=== PATIENT | female | born 1965 | race Caucasian/White ===

== ENCOUNTER 2017-05-23 14:27 | Emergency (ER) | payer MEDICARE, MEDICAID, SELFPAY ==
[2017-05-23 14:28] VITALS: BP 154/101; PULSE 91; RESP 16; TEMP 36.7; O2SAT 95; BMI 48.2
[2017-05-23 14:44] VITALS: BP 148/83; PULSE 94; RESP 24; O2SAT 97
--- NOTE | 2017-05-23 15:09 | EKG12_ITS ---
Test Reason : CP SOB Blood Pressure : / mmHG Vent. Rate : 096 BPM Atrial Rate : 096 BPM P-R Int : 174 ms QRS Dur : 088 ms QT Int : 362 ms P-R-T Axes : 036 -09 023 degrees QTc Int : 457 ms Normal sinus rhythm Normal ECG Confirmed by ONI SANDERSON, ZAINAB ([id number]), associate editor BLAIRE KLEIN ([id number]) on 05/26/2017 10:36:18 AM Referred By: COCO Confirmed By:ZAINAB BUNN MD
--- NOTE | 2017-05-23 15:09 | RAD_ITS ---
STUDY: X-RAY CHEST REASON FOR EXAM: Female, 51 years old. Dose of breath, tachypnea and chest pain. TECHNIQUE: PA and lateral views of the chest. COMPARISON: Prior comparison studies are not available for review at this time. FINDINGS: The lungs are clear and expanded. There is no demonstrated pleural abnormality. There is borderline cardiomegaly. Normal mediastinum and luis enrique. Normal visualized pulmonary arteries. Normal visualized aortic arch and descending thoracic aorta. There are diffuse degenerative changes of the visualized thoracic spine. There is degenerative osteoarthritis of the bilateral shoulders. There is no demonstrated abnormality of the visualized soft tissue structures of the upper abdomen. RAD/Chest PA and Lateral IMPRESSION: Borderline cardiomegaly. No active pulmonary disease. Electronically Signed: Jose Lawsno MD at 15:38 EST Tel , Service support ,
--- NOTE | 2017-05-23 15:12 | ED.DCSUM_ITS ---
- ER Visit Summary Date of Service: 05/23/17 Chief Complaint: Shortness of breath History of Present Illness: The patient is a 51 F who presents for 3 weeks of waxing and waning shortness of breath. Patient was seen at urgent care earlier today and advised to come to the emergency department. She has had shortness of breath at rest, worse with exertion, with occasional wheezing. She has chest tightness with it. She denies abdominal pain, nausea, vomiting, fever, congestion, cough. She has a history of unprovoked pulmonary embolism but is currently not anticoagulated. No cardiac history. No history of stroke. Physical Examination: Vital signs: afebrile, hemodynamically stable, no hypoxia on room air General: well nourished, well developed, in no distress Skin: warm, dry, no rash, no pallor HEENT: normocephalic and atraumatic; PERRL, EOMI, moist mucous membranes Cardiovascular: regular rate and rhythm with soft systolic murmurs, no peripheral edema, 2+ pulses all distal extremities Respiratory: Mild increased work of breathing and tachypnea, lungs are clear to auscultation bilaterally, no rales, rhonchi or wheezing, 9200% O2 sat on room air Abdominal: Abdomen is soft, nontender with normoactive bowel sounds, no guarding or rebound, no masses MSK: Moves all extremities, no deformities, normal strength Neuro: Awake and alert, oriented ?4. No facial droop, sensation and motor function intact and symmetric Test Results: Abnormal Lab Results 05/23/17 05/23/17 05/23/17 15:20 15:20 15:20 WBC 6.5 RBC 4.16 L Hgb 11.3 L Hct 35.0 L MCV 84.1 MCH 27.2 MCHC 32.3 RDW 14.8 H RDW Differential 44.3 H Plt Count 284 MPV 8.3 Immature Gran % (Auto) 0.300 Neut % (Auto) 59.1 Lymph % (Auto) 24.2 Crockett % (Auto) 10.9 H Eos % (Auto) 4.9 Baso % (Auto) 0.6 Absolute Neuts (auto) 3.8 Absolute Lymphs (auto) 1.57 Total Counted Not Reportable PT INR APTT D-Dimer Quant (PE/DVT) 1.19 H* Sodium 137 Potassium 3.9 Chloride 105 Carbon Dioxide 23.0 Anion Gap 9 BUN 14 Creatinine 0.82 Estim Creat Clear Calc 70.88 Est GFR (MDRD) Af Amer 95 Est GFR (MDRD) Non-Af 79 BUN/Creatinine Ratio 17.1 Glucose 74 Calcium 8.7 Troponin I < 0.02 B-Natriuretic Peptide 05/23/17 05/23/17 15:20 15:20 WBC RBC Hgb Hct MCV MCH MCHC RDW RDW Differential Plt Count MPV Immature Gran % (Auto) Neut % (Auto) Lymph % (Auto) Crockett % (Auto) Eos % (Auto) Baso % (Auto) Absolute Neuts (auto) Absolute Lymphs (auto) Total Counted PT 14.1 INR 1.1 APTT 31.0 D-Dimer Quant (PE/DVT) Sodium Potassium Chloride Carbon Dioxide Anion Gap BUN Creatinine Estim Creat Clear Calc Est GFR (MDRD) Af Amer Est GFR (MDRD) Non-Af BUN/Creatinine Ratio Glucose Calcium Troponin I B-Natriuretic Peptide 10.5 Emergency Department Course and Treatment: Patient presents for 3 weeks of shortness of breath, with history of unprovoked pulmonary embolism. Patient does appear short of breath on initial impression. Workup was performed for cardiac etiology as well as pulmonary embolism. Chest x-ray showed no pneumonia. EKG showed sinus rhythm without ischemia or ectopy. Patient was borderline tachycardic. Labs showed no leukocytosis or electrolyte derangements. Troponin negative. BNP was normal. D-dimer elevated at 1.19. CT of the chest was performed that did not show pulmonary embolism in the main pulmonary arteries but was not optimal for determining more peripheral PEs. No alternative source of patient's shortness of breath was determined. Based on the PESI risk stratification, if patient did have a confirmed pulmonary embolism , she is very low risk for 30 day mortality and would still be a candidate for outpatient management. She was started on Xarelto for presumed pulmonary embolism and will follow up with her doctor on Thursday for a repeat evaluation and further testing. If patient has any worsening of her condition she will return to the emergency department immediately. Patient agreed with this plan and was discharged home. Treatment Plan: [] Disposition: [] Impression: Shortness of breath, concern for pulmonary embolism This note was generated with [employer]com[employer] software. It may contain incorrect words, spelling, and punctuation that were not noted in review of the chart prior to signing ED Disposition - Plan for ED Patient: Disposition: Home or Assisted Living Chief Complaint: Shortness of Breath Instructions: Pulmonary Embolism Prescriptions: Rivaroxaban [Xarelto] 15 mg PO BID #42 tab Referrals: Riki Clark MD [Primary Care Provider] - 2 Days Additional Instructions: You were evaluated for shortness of breath today. Your workup was normal except for an elevated d-dimer. A CT scan of your chest was performed to look for a possible blood clot, and it did not show any blood clots in the central blood vessels of your lungs, however they were unable to tell if there were any clots in the smaller blood vessels. Because you have a history of a blood clot in your lungs for an unknown reason, and because you presented short of breath without an alternative reason and without a conclusive CT scan of your lungs, you have been started on Xarelto until you can follow-up with your doctor for further workup. Please take the Xarelto twice daily. You were given your first dose today in the emergency department. Please call your doctor on Thursday to arrange follow-up for as soon as possible, preferably within 1-2 days , for reevaluation of possible blood clot in your lungs. If you have any worsening shortness of breath, dizziness or lightheadedness, chest pain or any other concerns at any time, return to the emergency department immediately or call 911.
[2017-05-23 15:29] LABS: Absolute Lymphocyte Count 1.57 X10^3/ul (0.83-4.51); Absolute Neutrophil Count 3.8 X10^3/uL (2.0-7.7); Basophil# 0.04 X10^3/uL; Basophil% 0.6 % (0-1); Eosinophil# 0.32 X10^3/uL; Eosinophils% 4.9 % (0-5); Hemoglobin 11.3 g/dl (12.0-15.0); Lymphocyte # 1.57 X10^3/ul (4.0); Lymphocyte % 24.2 % (19-41); Mean Corp Hgb Conc 32.3 g/gl (32-36); Mean Corpuscular Hgb 27.2 pg (27.0-32.0); Mean Corpuscular Volume 84.1 fL (81-99); Mean Platelet Vol. 8.3 fl (6.2-12.0); Monocyte# 0.71 X10^3/uL; Monocyte% 10.9 % (0-10); Neutrophil # 3.83 X10^3/uL (2.7-7.7); Neutrophil % 59.1 % (47-70); Platelet Count 284 K/mm3 (150-450); RBC Distribution Width CV 14.8 % (11.6-14.6); RBC Distribution Width SD 44.3 fl (35.1-43.9); Red Blood Count 4.16 M/mm3 (4.2-5.4); White Blood Count 6.5 K/mm3 (4.4-11.0)
[2017-05-23 15:33] LABS: POSITIVE COUNT NO; POSITIVE DIFFERENTIAL NO; POSITIVE MORPHOLOGY NO
[2017-05-23 15:43] LABS: Anion Gap 9 (5-15); BUN 14 mg/dL (7-18); BUN/Creat Ratio 17.1 RATIO (10-20); Calcium,Total 8.7 mg/dL (8.5-10.1); Chloride 105 mmol/L (98-107); Creatinine, Serum 0.82 mg/dL (0.55-1.02); EST Glomerular Filtration Rate 79 mL/min (>60); Est Glom Filt Rate - Afr Amer 95 mL/min (>60); Estimated Creatinine Clearance 70.88 ml/min; Glucose 74 mg/dL (70-110); Potassium 3.9 mmol/L (3.5-5.1); Sodium Level 137 mmol/L (136-145)
[2017-05-23 15:55] LABS: D-Dimer Quantitative (DVT/PE) 1.19 FEU/ug/m (0.27-0.49)
--- NOTE | 2017-05-23 16:01 | CT_ITS ---
STUDY: CTA CHEST REASON FOR EXAM: Female, 51 years old. Shortness of breath and elevated d-dimer RADIATION DOSAGE (If Supplied By Facility): CTDIvol = ( 18.38 ) mGy, DLP = ( 626.91 ) mGycm TECHNIQUE: The examination was performed with the intravenous administration of 100 ml of Isovue 370 contrast material. Post-processing of the angiographic images was performed, with multiplanar reformation and 3D reconstruction. Individualized dose optimization techniques were used for this CT. COMPARISON: Chest x-ray from today FINDINGS: Left lobe of the thyroid is enlarged and heterogeneous. This appears unchanged. Normal enhancement of the main pulmonary artery and right and left pulmonary arteries. There is limited enhancement of the bilateral peripheral pulmonary arteries. There is no major central demonstrated pulmonary embolism. Normal thoracic aorta and visualized great vessels. There is no demonstrated aortic dissection. Normal heart and pericardium. Moderate cardiomegaly and calcific coronary artery disease. Normal mediastinum. Normal hilar regions. Normal visualized trachea and bronchi. Mild interstitial edema. Normal pulmonary parenchyma. Normal pleura. Normal chest wall structures. Normal osseous structures. Normal visualized upper abdomen. CT/CTA Chest W/WO Contrast IMPRESSION: Mild CHF and coronary artery disease. Peripheral pulmonary emboli cannot be excluded due to beam hardening artifact and magnetic susceptibility artifact. Electronically Signed: Saurabh Pappas MD at 17:16 EST , Service support ,
[2017-05-23] MEDS: 0.9% Normal Saline 1,000 ML 999 ML IV (16:56)
[2017-05-23 16:58] VITALS: BP 142/67; PULSE 20; RESP 90; O2SAT 98
[2017-05-23] MEDS: Acetaminophen 500 MG Tablet 1000 MG PO (17:03)
[2017-05-23 17:57] LABS: International Normalized Ratio 1.1; Prothrombin Time (Protime)PT. 14.1 SECONDS (11.7-14.9)
[2017-05-23 18:09] LABS: BNP,B-Type NATRIURETIC PEPTIDE 10.5 pg/mL (0-100)
[2017-05-23 18:13] VITALS: BP 131/63; PULSE 82; RESP 18
--- NOTE | 2017-05-23 18:54 | DCINST.ED_ITS ---
ED Disposition - Plan for ED Patient: Chief Complaint: Shortness of Breath Instructions: Pulmonary Embolism Prescriptions: Rivaroxaban [Xarelto] 15 mg PO BID #42 tab Referrals: Riki Clark MD [Primary Care Provider] - 2 Days Additional Instructions: You were evaluated for shortness of breath today. Your workup was normal except for an elevated d-dimer. A CT scan of your chest was performed to look for a possible blood clot, and it did not show any blood clots in the central blood vessels of your lungs, however they were unable to tell if there were any clots in the smaller blood vessels. Because you have a history of a blood clot in your lungs for an unknown reason, and because you presented short of breath without an alternative reason and without a conclusive CT scan of your lungs, you have been started on Xarelto until you can follow-up with your doctor for further workup. Please take the Xarelto twice daily. You were given your first dose today in the emergency department. Please call your doctor on Thursday to arrange follow-up for as soon as possible, preferably within 1-2 days , for reevaluation of possible blood clot in your lungs. If you have any worsening shortness of breath, dizziness or lightheadedness, chest pain or any other concerns at any time, return to the emergency department immediately or call 911.
[2017-05-23] MEDS: Rivaroxaban 15 MG Tablet PO (19:07)
[2017-05-23 19:08] VITALS: BP 135/67; PULSE 87; RESP 18; O2SAT 95
== END 2017-05-23 19:08 | disposition home or self-care (01) ==
LOC: ED 15:17
PROVIDERS: Emergency Provider Emergency Medicine; Family Provider Family Medicine; PCP Family Medicine
DX: R06.02 Shortness of breath (principal); R07.89 Other chest pain; R51 Headache; R01.1 Cardiac murmur, unspecified; R79.89 Other specified abnormal findings of blood chemistry; J45.909 Unspecified asthma, uncomplicated; E11.9 Type 2 diabetes mellitus without complications; I10 Essential (primary) hypertension; Z86.711 Personal history of pulmonary embolism; Z79.82 Long term (current) use of aspirin; Z79.4 Long term (current) use of insulin; Z79.899 Other long term (current) drug therapy
CPT/HCPCS: 71046; 71275; 80048; 83880; 84484; 85025; 85379; 85610; 85730; 93005; 96360; 96361; 99285; J7030; Q9967; A4216

== ENCOUNTER 2017-07-15 10:00 | Outpatient (RCR) | payer MEDICARE, SELFPAY ==
--- NOTE | 2017-07-08 11:16 | HP.OTEVAL_ITS ---
Patient's Visit Information JESUS ZEPEDA is a 51 year old F, referred to Occupational Therapy by Amrik Holland MD,, with a diagnosis of lymphedema. Date of Evaluation: 07/08/17 Occupational Therapist: Tanya Art, KORINR/L, CHT - Subjective Subjective: Pt states she has had swelling in her left LE for about a year- pt states she elevates her legs but that does not help decrease her swelling. Pt states she is semi- retired, she states she does get out and walk her dog about a mile- to 2 miles- pt states she does get her feet up during the day. pt states she is working on getting compression socks from [employer] but does not know if insurance will pay for them. - Lymphedema (Circumferential Measure) Mid-foot: right 25cm left 26cm Ankle: right 35 left 37cm Lower calf: right 50cm left 46cm Largest calf: right 69cm left 68cm Below knee: right 60 left 59cm - Lower Limb Functional Index Lower Extremity Functional Score: 43 - Goals Demonstrate a 20% reduction in edema by d/c: Yes Demonstrate adequate knowledge of self-bangaging by 1st week: Yes Demonstrate adequate knowledge of self-massage by 2nd week: Yes Demonstrate adequate knowledge skin care/prec by 2nd week: Yes Demonstrate adequate knowledge therapeutic exercises by d/c: Yes Select approp compression garment w/donning/care/wear by d/c: Yes Voice need to replace compression garment every 4-6mo by dc: Yes - Rehabilitation General Assessment: pt demo with stage II lymphedema and would benefit from skilled OT services to increase pts mtg of LE edema and need for compression wraps. pt was ed on the lymph system and lymph ex as well as skin care. pt will return for ed. on LE wrap with short stretch wraps to bilateral LE to assist in mtg of LE edema- pt is receptive to leaning and mtg of lymphedema Rehabilitation Potential: Good - Anticipated Interventions Anticipated Interventions: Education re Life-long lymphedema Management, Education re Self-Bandaging Techniques, Education re Skin Care and Precautions, Education re Self Massage Techniques, Education re Correct Donning Tech,Care& Wearing Sched Comp Garments - Visit Plan Frequency: 1-2x /Week Duration: 4 Weeks General Plan: ed. pt on LE lymph wraps to BLE for HEP TEXT: Thank you for the opportunity to evaluate your patient. For Medicare and Medicare HMO plans, please review the plan of care and approve it. It will need to be FAXED BACK to us at [phone] for Medicare purposes. Please let me know if there are questions or concerns regarding this plan of care. Physician Signature: Date:
--- NOTE | 2017-09-15 14:46 | HP.OTDCNRP_ITS ---
HP - Discharge Summary - Patient Information JESUS ZEPEDA was seen in my office for initial evaluation on 07/08/17. The following Plan of Care was established for this patient: Initial Frequency: 1-2x /Week Initial Duration: 4 Weeks Plan: pt will cont with wraps until she get her compression socks. pt to return in two weeks with wraps and socks- pt advised to return this week if she is having difficulty with the wraps. pt demo understanding - Anticipated Interventions Anticipated Interventions: Education re Life-long lymphedema Management, Education re Self-Bandaging Techniques, Education re Skin Care and Precautions, Education re Self Massage Techniques, Education re Correct Donning Tech,Care& Wearing Sched Comp Garments This patient was last seen in our office 07/15/17. Pertinent comments regarding their Occupational therapy will appear below: pt was seen for 2 visits- pt was to return once she had her compression socks- pt has not scheduled a futher apt and is D/C at this time. At this point I will be discontinuing this patient from occupational therapy. I would be happy to see this patient again in the future if found appropriate by the physician. Thank you! Tanya Art, OTR/L, CHT
== END 2017-07-15 19:00 | disposition home or self-care (01) ==
LOC: OT 10:00
PROVIDERS: Family Provider Family Medicine; PCP Family Medicine; Visit Provider Surgery Vascular Surgery
DX: I89.0 Lymphedema, not elsewhere classified (principal)
CPT/HCPCS: 97166; 97530

== ENCOUNTER 2017-09-06 16:38 | Emergency (ER) | payer MEDICARE, SELFPAY ==
[2017-09-06 16:39] VITALS: BP 181/76; PULSE 87; RESP 17; TEMP 36.9; O2SAT 98; BMI 45.9
--- NOTE | 2017-09-06 16:56 | EKG12_ITS ---
Test Reason : SOB Blood Pressure : / mmHG Vent. Rate : 081 BPM Atrial Rate : 081 BPM P-R Int : 164 ms QRS Dur : 090 ms QT Int : 372 ms P-R-T Axes : 029 -05 012 degrees QTc Int : 432 ms Normal sinus rhythm Normal ECG Confirmed by JORGE SANDERSON, BLANCO ([id number]), editor in chief BLAIRE KLEIN ([id number]) on 09/08/2017 1:18:31 PM Referred By: LETTY Confirmed By:BLANCO PATEL MD
[2017-09-06] MEDS: Ipratropium/Albuterol Sulfate 3 ML AMPUL.NEB INHALATION (17:14)
[2017-09-06] MEDS: Albuterol 2.5 MG/3 ML VIAL.NEB. INHALATION (17:14)
[2017-09-06 17:20] LABS: Absolute Lymphocyte Count 2.04 X10^3/ul (0.83-4.51); Absolute Neutrophil Count 2.4 X10^3/uL (2.0-7.7); Basophil# 0.03 X10^3/uL; Basophil% 0.6 % (0-1); Eosinophil# 0.23 X10^3/uL; Eosinophils% 4.2 % (0-5); Hematocrit 35.2 % (37-47); Hemoglobin 11.5 g/dl (12.0-15.0); Lymphocyte # 2.04 X10^3/ul (4.0); Lymphocyte % 37.6 % (19-41); Mean Corp Hgb Conc 32.7 g/gl (32-36); Mean Corpuscular Hgb 28.3 pg (27.0-32.0); Mean Corpuscular Volume 86.7 fL (81-99); Mean Platelet Vol. 8.9 fl (6.2-12.0); Monocyte# 0.71 X10^3/uL; Monocyte% 13.1 % (0-10); Neutrophil % 44.3 % (47-70); POSITIVE COUNT NO; POSITIVE DIFFERENTIAL NO; POSITIVE MORPHOLOGY NO; Platelet Count 260 K/mm3 (150-450); RBC Distribution Width CV 14.6 % (11.6-14.6); RBC Distribution Width SD 45.9 fl (35.1-43.9); Red Blood Count 4.06 M/mm3 (4.2-5.4); White Blood Count 5.4 K/mm3 (4.4-11.0)
[2017-09-06 17:21] VITALS: PULSE 85; RESP 22
[2017-09-06 17:38] LABS: Anion Gap 7 (5-15); BUN 12 mg/dL (7-18); BUN/Creat Ratio 15.2 RATIO (10-20); Calcium,Total 8.7 mg/dL (8.5-10.1); Chloride 106 mmol/L (98-107); Creatinine, Serum 0.79 mg/dL (0.55-1.02); EST Glomerular Filtration Rate 82 mL/min (>60); Est Glom Filt Rate - Afr Amer 99 mL/min (>60); Estimated Creatinine Clearance 76.66 ml/min; Glucose 90 mg/dL (74-106); Potassium 4.1 mmol/L (3.5-5.1); Sodium Level 137 mmol/L (136-145)
--- NOTE | 2017-09-06 17:40 | RAD_ITS ---
STUDY: X-RAY CHEST REASON FOR EXAM: Female, 51 years old. Dyspnea TECHNIQUE: Frontal and lateral views of the chest. COMPARISON: 05.23.17 FINDINGS: Chronic appearing increased interstitial lung markings. There is no demonstrated pleural abnormality. Normal heart size. Normal mediastinum and luis enrique. Normal visualized pulmonary arteries. There is atherosclerotic calcification of the aortic arch with tortuosity. There are diffuse degenerative changes of the visualized thoracic spine. There is degenerative osteoarthritis of the bilateral shoulders. There is no demonstrated abnormality of the visualized soft tissue structures of the upper abdomen. RAD/Chest PA and Lateral IMPRESSION: There are no acute findings. Electronically Signed: Moshe Phoenix MD at 17:56 EDT , Service support ,
--- NOTE | 2017-09-06 18:13 | ED.VISSUMM ---
- ER Visit Summary Date of Service: 09/06/17 Chief Complaint: Shortness of breath History of Present Illness: The patient is a 51 F who presents with shortness of breath for the past 3 days. She also complains of productive cough sinus pressure nasal congestion and rhinorrhea. She has had intermittent chest heaviness or tightness. She complains of rib pain in her back that is worse with coughing. She also complains of some dysuria. She has had some diarrhea over the past day. She reports sweats but no documented fevers. Physical Examination: Afebrile hypertensive but vitals otherwise normal Heart regular rate and rhythm Patient has scattered expiratory wheezes she is in no distress no rales Abdomen soft Alert Test Results: EKG shows normal sinus rhythm at a rate of 81. CBC BMP troponin unremarkable. Urinalysis unremarkable. Chest x-ray shows no acute findings. Emergency Department Course and Treatment: Patient was treated with albuterol and Atrovent aerosols. She is improved on reevaluation I do not appreciate any further wheezing. Urinalysis was normal. I do believe her respiratory symptoms are related to a viral bronchitis. She was given a dose of prednisone here and a prescription for the same as well as a prescription for an albuterol inhaler. She was instructed on supportive care. She understands to return for new or worsening symptoms. She was discharged. Treatment Plan: [] Disposition: Discharge Impression: Bronchitis This note was generated with [employer] dictation software. It may contain incorrect words, spelling, and punctuation that were not noted in review of the chart prior to signing ED Disposition - Plan for ED Patient: Chief Complaint: Shortness of Breath Referrals: Riki Clark MD [Primary Care Provider] -
[2017-09-06] MEDS: predniSONE 20 MG Tablet 60 MG PO (18:19)
[2017-09-06 18:20] VITALS: BP 171/67; PULSE 95; RESP 20; O2SAT 94
[2017-09-06 18:20] LABS: Bacteria 0 SEEN /hpf (None Seen); Mucous, Urine 0 SEEN /hpf (<or=2+); Red Blood Cells-Urine 0 SEEN /hpf (0-5)
[2017-09-06 18:21] LABS: Color, Urine Yellow (Yellow); Glucose, Dipstick Normal (Normal); Ketone-Dipstick Negative (Negative); Leukocyte Esterase-Dipstick 25 /ul (Negative); Nitrite-Dipstick Negative (Negative); Occult Blood-Urine Negative /ul (Negative); Protein-Dipstick Negative (Negative); Urine Bilirubin Dipstick Negative (Negative); Urine Clarity Clear (Clear); Urine Urobilinogen Normal (Normal)
[2017-09-06 18:26] LABS: Squamous Epithelial Cells - UA 0-5 SEEN /hpf (5-10); White Blood Cells 0-5 SEEN /hpf (0-5)
--- NOTE | 2017-09-06 18:33 | ED.DEP ---
ED Disposition - Plan for ED Patient: Chief Complaint: Shortness of Breath Instructions: Acute Bronchitis Prescriptions: Albuterol Inhaler [Ventolin Hfa] 1 - 2 puff INHALATION Q4H PRN PRN #1 inhaler PRN Reason: Wheezing Prednisone [Deltasone] 60 mg PO DAILY #12 tab Referrals: Riki Clark MD [Primary Care Provider] -
--- NOTE | 2017-09-07 13:06 | CM.ED ---
ED CALLBACK: Follow-up call place to patient. Voicemail received and message left with callback information.
== END 2017-09-06 18:40 | disposition home or self-care (01) ==
LOC: ED 17:29
PROVIDERS: Emergency Provider Emergency Medicine; Family Provider Family Medicine; PCP Family Medicine
DX: J40 Bronchitis, not specified as acute or chronic (principal); E11.9 Type 2 diabetes mellitus without complications; I10 Essential (primary) hypertension; E78.00 Pure hypercholesterolemia, unspecified
CPT/HCPCS: 71046; 80048; 81001; 84484; 85025; 93005; 94640; 99285; A4216

== ENCOUNTER 2017-11-23 19:36 | Emergency (ER) | payer MEDICARE, SELFPAY ==
[2017-11-23 20:05] VITALS: BP 147/82; PULSE 110; RESP 20; TEMP 36.7; O2SAT 99; BMI 46.9
--- NOTE | 2017-11-23 21:23 | ED.DCSUM_ITS ---
- ER Visit Summary Date of Service: 11/23/17 Chief Complaint: Dog bite History of Present Illness: The patient is a 51 F presenting for evaluation secondary to a dog bite. Patient reports that she was bit by a neighborhood dog today, it is owned by somebody in the neighborhood its status of its vaccinations is unknown. Patient reports bite wounds to her bilateral hands. Patient states that she believes that her tetanus status is likely up-to-date. Physical Examination: Physical exam unremarkable except for examination of the patient's upper extremities. There is a 0.5 cm superficial laceration over the left index finger palmar surface DIP without evidence of violation of deep tissue normal flexion and extension of the finger. There is some superficial abrasions noted over the left long digit and the right long digit. Patient has bilateral lower extremity lymphedema and a sore on her right lateral leg with some weeping. Test Results: None indicated Emergency Department Course and Treatment: Patient presented for evaluation secondary to dog bites. The wounds appear rather superficial, they do not appear to involve any of the deep structures I also do not believe that suture repair is necessary at this point as they reasonably well approximated. Wounds were cleansed, they were dressed, patient will be placed on Augmentin for prophylaxis. She was given signs and symptoms which to return. Disposition: Discharge Impression: 1. Dog bites to the hands bilaterally This note was generated with [employer] dictation software. It may contain incorrect words, spelling, and punctuation that were not noted in review of the chart prior to signing ED Disposition - Plan for ED Patient: Disposition: Home or Assisted Living Chief Complaint: Bite Diagnosis: Dog bite Instructions: ED Bite Dog Prescriptions: Amox/Clavulanate Tablet [Augmentin Tablet] 875 mg PO Q12H #20 tab Referrals: Riki Clark MD [Primary Care Provider] - 2 Days for wound check
[2017-11-23] MEDS: BACITRACIN 15 GM Tube 1 APPLIC TOPICAL (21:26)
[2017-11-23] MEDS: Amox/Clavulanate 875 MG Tablet PO (21:26)
[2017-11-23 21:31] VITALS: BP 140/78; PULSE 90; RESP 20; O2SAT 96
== END 2017-11-23 21:42 | disposition home or self-care (01) ==
PROVIDERS: Emergency Provider Emergency Medicine; Family Provider Family Medicine; PCP Family Medicine
DX: S61.452A Open bite of left hand, initial encounter (principal); S61.451A Open bite of right hand, initial encounter; W54.0XXA Bitten by dog, initial encounter; Y93.9 Activity, unspecified; Y92.89 Other specified places as the place of occurrence of the external cause; Y99.9 Unspecified external cause status; E11.9 Type 2 diabetes mellitus without complications; I10 Essential (primary) hypertension; I89.0 Lymphedema, not elsewhere classified
CPT/HCPCS: 99283

== ENCOUNTER → 2018-11-10 15:14 | Outpatient (CLI) | payer MEDICARE, SELFPAY ==
--- NOTE | 2018-11-10 15:20 | BI_ITS ---
MAMMOGRAPHY - BILATERAL SCREENING REASON FOR EXAM: Female, 52 years old. Routine annual screening examination. PERTINENT HISTORY: Aunt with breast cancer. TECHNIQUE: Digital bilateral breast blaise (3D mammographic acquisition) in the CC and MLO projections. 2-D mediolateral oblique (MLO) and craniocaudad (CC) views of both breasts were obtained. CAD: Full Field Digital Mammography with Computer Added Detection was performed. COMPARISON: Comparison is made with prior study dated May 15, 2017 and November 12, 2015. FINDINGS: Breast Composition: There are scattered areas of fibroglandular density. There are no dominant masses or suspicious calcifications. No other significant abnormalities are identified. There has been no significant change since the prior study. BI/SCREEN MAMM (CAD) W/BLAISE BILAT IMPRESSION: Stable bilateral screening mammogram. Yearly follow-up mammogram recommended. (A) ASSESSMENT CATEGORY: BIRADS Category 1: Negative. A letter regarding these results will be sent to the patient by the facility within 30 days. Approximately 10% of breast cancers are not detected by mammography. A normal mammogram should not delay biopsy of a clinically suspicious abnormality. [id number] Electronically Signed: David Burns, at 7:57 EDT , Service support ,
== END ==
PROVIDERS: Family Provider Family Medicine; PCP Family Medicine; Referring Provider Family Medicine; Visit Provider Family Medicine
DX: Z12.31 Encounter for screening mammogram for malignant neoplasm of breast (principal)
CPT/HCPCS: 77063; 77067

== ENCOUNTER 2018-11-21 09:17 | Emergency (ER) | payer MEDICARE, SELFPAY ==
[2018-11-21 09:19] VITALS: BP 149/88; PULSE 87; RESP 17; TEMP 36.8; O2SAT 95; BMI 44.6
--- NOTE | 2018-11-21 09:36 | CT_ITS ---
STUDY: CT BRAIN WITHOUT CONTRAST REASON FOR EXAM: Female, 52 years old. MARISCAL RADIATION DOSAGE (If Supplied By Facility): CTDIvol = ( 44.99 ) mGy, DLP = ( 779.24 ) mGycm TECHNIQUE: Transaxial CT imaging of the brain was performed without administration of intravenous contrast material. Individualized dose optimization techniques were used for this CT. COMPARISON: No relevant priors. FINDINGS: Normal soft tissue structures. Normal calvarium. Normal size ventricles and extra-axial spaces for the patient's age. Normal white matter tracts of the cerebral hemispheres. Normal basal ganglia and thalami. Normal brainstem. Normal cerebellum. There is no intracranial hemorrhage. There are no findings of an acute ischemic infarction. Normal visualized paranasal sinuses. CT/Brain/Head without Contrast IMPRESSION: Normal unenhanced CT scan of the brain. Electronically Signed: Keith Hernández MD at 10:20 EDT Tel , Service support ,
[2018-11-21] MEDS: Metoclopramide 10 MG/2 ML Vial 5 MG IV (09:48)
[2018-11-21] MEDS: Ketorolac 30 MG/ML Syringe IV (09:48)
[2018-11-21 12:17] VITALS: BP 129/71; PULSE 66; RESP 18; O2SAT 99
--- NOTE | 2018-11-21 12:52 | ED.VIS.HA ---
History of Present Illness Chief Complaint: Headache Informant: Patient Onset: Days - 2 Context: Onset - awoke w/ headache, gradually worse Timing: Continuous Quality: Similar Prior Headaches - in some ways -- see below Location: global bilaterally; started right base of head/neck Current Severity: Severe Maximum Severity: Severe Worsened by: light, sound Relieved by: dark. not by excedrin migraine. Associated Symptoms: Nausea, Blurred Vision, Photophobia. Negative for: Vomiting, Numbness, Tingling, Visual Loss Narrative: Patient states that these headaches usually do not last more than a day and this is unusual for her. She denies any trauma. She has had headaches for a long time, they are migraines. With her migraines, she usually does not have blurry vision or nausea, which she has had this time. Her neck has felt more stiff as her headache is worsened over the last day or so. She denies any confusion or fevers. No other recent illness. No peripheral neurologic symptoms. - Past Medical History (1) Migraines Status: Chronic (2) Asthma Status: Chronic (3) HTN (hypertension) Status: Chronic (4) Hyperlipidemia Status: Chronic (5) Type 2 diabetes mellitus Status: Chronic (6) Hypothyroid Status: Chronic Past Medical History - Allergies and Home Meds Allergies/Adverse Reactions: Allergies latex Allergy (Verified 11/21/18 09:19) Rash lisinopril Adverse Reaction (Verified 11/21/18 09:19) Other COUGH Primary Care Physician: Riki Clark MD [Primary Care Provider] - Smoking Status: Never smoker Drugs: None Review of Systems General: Denies: Chills, Fever, Sweats Eyes: Reports: Blurred Vision - bilaterally. Denies: Diplopia ENT: Denies: Rhinorrhea, Sore throat Cardiovascular: Denies: Chest pain, Palpitations Respiratory: Denies: Dyspnea, Cough, Dyspnea on exertion Gastrointestinal: Reports: Nausea. Denies: Abdominal pain, Vomiting, Diarrhea, Melena, Hematochezia Genitourinary: Denies: Dysuria, Hematuria, Frequency Musculoskeletal: Reports: Neck pain. Denies: Back pain, Extremity Pain Skin: Denies: Rash, Wounds Neurological: Reports: Headache. Denies: Weakness, Numbness Physical Exam Vital Signs/Narrative: Vital Signs Temp Pulse Resp BP Pulse Ox 11/21/18 12:17 66 18 129/71 H 99 11/21/18 09:19 98.2 F 87 17 149/88 H 95 Inital Vital Signs reviewed: Yes General: Well nourished, Well developed, Obese Head: NC, AT Eyes: Perrl, EOMI ENT: Moist mucous membranes, No rhinorrhea Neck: Supple, No Lymphadenopathy, No JVD, No Meningismus, Paraspinal Tenderness - bilat, - - pain w/ chin to chest, but able Cardiovascular: Regular rate, Regular rhythm, No murmurs Respiratory: No distress, CTA bilaterally, Chest nontender Abdomen: Soft, Nontender, Nondistended, Normal bowel sounds Back: Nontender, Normal Inspection Extremities: Nontender, No edema Skin: Normal color, No rash, No Trauma Neuro: Alert, Oriented x3, Cranial nerves II-XII grossly intact, Normal Strength, Normal Sensation, Normal DTR, Normal Gait Psychological: Normal affect, Normal Mood Diagnostic/Tx/Re-eval Clinical Impression(s) from Imaging Studies Brain CT 11/21/18 09:36 IMPRESSION: Normal unenhanced CT scan of the brain. Electronically Signed: Keith Hernández MD at 10:20 EDT Tel , Service support , - Medical Decision Making Patient was given Reglan and Toradol with IV fluids, she states she feels much better and her headache is a 1/10 now. Her neck is also better but still feels a little stiff, she is moving it well. I do not think she has meningitis or needs an LP at this time. She is willing to try muscle relaxer but she is driving home so we will give her a Flexeril to take when she gets home. She is comfortable with following up or return if worse. ED Disposition - Plan for ED Patient: Disposition: Home or Assisted Living Diagnosis: Migraine headache Instructions: ED, Migraine (Classical) Referrals: Riki Clark MD [Primary Care Provider] - 1-2 Days if not improving
[2018-11-21 13:09] VITALS: BP 138/74; PULSE 62; RESP 15; O2SAT 98
[2018-11-21] MEDS: cycloBENZAPRine HCl 10 MG Tablet PO (13:09)
== END 2018-11-21 13:10 | disposition home or self-care (01) ==
PROVIDERS: Emergency Provider Emergency Medicine; Family Provider Family Medicine; PCP Family Medicine
DX: G43.909 Migraine, unspecified, not intractable, without status migrainosus (principal); J45.909 Unspecified asthma, uncomplicated; I10 Essential (primary) hypertension; E78.5 Hyperlipidemia, unspecified; E11.9 Type 2 diabetes mellitus without complications; E03.9 Hypothyroidism, unspecified; Z91.040 Latex allergy status
CPT/HCPCS: 70450; 96374; 96375; 99284; A4216

== ENCOUNTER 2018-12-13 10:19 | Day surgery (SDC) | payer MEDICARE, MEDICAID, SELFPAY ==
[2018-11-24 13:14] VITALS: BMI 44.6
--- NOTE | 2018-11-27 10:45 | HP_ITS ---
Intake Vital Signs 11/24/18 Height 5 ft 5 in 11/24/18 Weight: 268 lb 4 oz 11/24/18 Body Mass Index (BMI) 44.6 11/24/18 Blood Pressure 160/94 H 11/24/18 Blood Pressure Location Rt brachial 11/24/18 Respiratory Rate 18 11/24/18 Pulse Rate 81 11/24/18 Temperature 97.6 F L 11/24/18 Temperature Source Oral 11/24/18 Pulse Ox 94 11/24/18 Oxygen Delivery Method room air 11/24/18 Body Mass Index (BMI) 44.6 Intake Visit Reasons: Thyroid Nodules US [facility] 11/03 Is patient in pain?: No Allergies latex Allergy (Verified 11/24/18 13:12) Rash lisinopril Adverse Reaction (Verified 11/24/18 13:12) Other Medications Amlodipine Besylate 5 mg PO DAILY 04/06/13 [History Confirmed 11/24/18] Aspirin [Ecotrin] 81 mg PO DAILY 04/06/13 [History Confirmed 11/24/18] Insulin Detemir [Levemir FlexPen] 74 units SUBCUT QHS 04/06/13 [History Confirmed 11/24/18] Levothyroxine [Synthroid] 50 mcg PO DAILY 04/06/13 [History Confirmed 11/24/18] Losartan Potassium 100 mg PO DAILY 04/06/13 [History Confirmed 11/24/18] Saxagliptin HCl/Metformin HCl [Kombiglyze Xr 2.5-1,000 mg Tab] 2 tab PO DAILY 04/06/13 [History Confirmed 11/24/18] Atorvastatin Calcium [Lipitor] 40 mg PO QHS 05/23/17 [History Confirmed 11/24/18] Insulin Lispro [Humalog Kwikpen] 16 - 18 unit SUBCUT TIDCM 05/23/17 [History Confirmed 11/24/18] Omeprazole [Prilosec] 20 mg PO DAILY 05/23/17 [History Confirmed 11/24/18] Albuterol Inhaler [Ventolin Hfa] 1 - 2 puff INHALATION Q4H PRN PRN #1 inhaler 09/06/17 [Rx Confirmed 11/24/18] Prednisone [Deltasone] 60 mg PO DAILY #12 tab 09/06/17 [Rx Confirmed 11/24/18] Amox/Clavulanate Tablet [Augmentin Tablet] 875 mg PO Q12H #20 tab 11/23/17 [Rx Confirmed 11/24/18] PFSH Medical History Migraines (Chronic) Asthma (Chronic) HTN (hypertension) (Chronic) Hyperlipidemia (Chronic) Type 2 diabetes mellitus (Chronic) Hypothyroid (Chronic) Family History Aunt Breast cancer Social History (Updated 11/27/18 @ 10:52 by Baljeet Ferguson MD) Smoking Status: Never smoker HPI HPI HPI: JESUS ZEPEDA, is a 52 F who presents to the office today for HPI HPI Surgical H&P: Yes HPI: JESUS ZEPEDA, is a 52 F who presents to the office today for evaluation of uninodular goiter. Patient is well-known to me remove the right side of her thyroid gland probably better than 10 years ago. I been following her left side and her last fine-needle aspiration was completed in 2015. This came back negative. Her most recent ultrasound of the left thyroid gland revealed that the dominant nodule is now 4.3 x 4 x 3.4 cm in size previously it was under this with a greatest dimensions of 3.6. She now meets criteria to have a completion thyroidectomy on the left side. ROS General General: No weight change, appetite, fatigue, colon cancer, breast cancer or weakness HEENT HEENT: No difficulty swallowing, eye injury, eye surgery, swollen glands or hoarseness Endo Endocrine: Yes thyroid disease, diabetes mellitus and thyroid cancer; no Hair loss, heat intolerance or cold intolerance Skin Skin: No rash or changing moles Breast Breast: No left breast lump, right breast lump, nipple discharge, breast pain, abnormal mammogram, abnormal US or breast enlargement Musc Musculoskeletal: Yes arthritis; no back problems, rheumatoid arthritis, gout or joint pain Cardio Cardiovascular: Yes high blood pressure; no murmur, pacemaker, heart disease, atrial fibrillation, heart attack, heart stent, palpitations, shortness of breat with exertion or chest pain Psych Psychiatric: Yes depression and anxiety; no hearing voices Resp Respiratory: No shortness of breath, Yes sleep apnea, No cough, No COPD, Yes asthma, No emphysema, No wheezing Gastro Gastrointestinal: No abdominal pain, No nausea or vomiting, No diarrhea, No constipation, No blood in stool, Yes acid reflux, Yes hemorrhoids, No ulcers, No gallbladder problem, No black,tarry stools Hossein Hematologic: No blood thinners, No blood disorders, No bleeding, No anemia, No blood clots Neuro Neurologic: No system reviewed and no additional complaints, except as docu, No as per HPI, No abnormal walking, No abnormal hearing, No abnormal movements, No abnormal speech, No behavioral changes, No burning sensations, No confusion, No seizure-like activity, No unsteadiness, No dizziness, No localized weakness, No frequent falls, No headache(s), No lack of coordination, No loss of vision, No memory loss, No numbness, No other visual disturbances, No radiating pain, No restless legs, No sensory deficit, No fainting, No tingling, No tremor(s), No weakness, No other Exam Const General: no acute distress, well developed, well hydrated Orientation: oriented to person, oriented to place, oriented to time [facility] Head: normocephalic, atraumatic Ears: external ears normal Mouth: moist mucous membranes Other: Thyroid Exam: Enlarged left thyroid gland is easily palpable there are no hard palpable lesions identified within it. Eyes Sclera: sclerae normal Pupils: normal by confrontation Neck Neck: no lymphadenopathy noted Neck mass: No Thyroid: thyroid normal, symmetrical Chest Chest palpation & inspection: normal inspection of the chest Breast Palpation: No nipple discharge Resp Effort & Inspection: normal respiratory effort Auscultation: clear to auscultation bilaterally Percussion: percussion normal Cardio Rate: regular rate Rhythm: regular rhythm Heart Sounds: no murmurs GI Palpation: soft, no hepatosplenomegaly, no masses, nontender Rectal Exam: other Other: Rectal exam deferred. Extrem General: normal to inspection, no clubbing, cyanosis or edema Assessment & Plan Problems 1. Multinodular goiter (nontoxic) E04.2 Plan Patient will need to undergo a completion left thyroid lobectomy. We discussed the risks and benefits of the planned procedure. I have informed the patient that complications can occur including failure to complete the procedure. The patient had the opportunity to ask questions concerning the planned procedure. My staff has also explained the procedure to the patient in understandable terms and has given the patient printed material concerning the procedure. The patient freely consents to the procedure. We also spent quite a bit of time discussing recurrent laryngeal nerve injury as well as parathyroid injuries. Coding Level of Care Code Off vis,new,level 3 Diagnoses Multinodular goiter (nontoxic) E04.2 11/27/18 1052 <Electronically signed by Baljeet hopson MD> Date _ Baljeet Ferguson MD I have re-examined the patient. There are no clinical changes since date of exam.
--- NOTE | 2018-12-09 13:26 | EKG12_ITS ---
Test Reason : PRE OP Blood Pressure : / mmHG Vent. Rate : 085 BPM Atrial Rate : 085 BPM P-R Int : 178 ms QRS Dur : 100 ms QT Int : 372 ms P-R-T Axes : 051 -07 032 degrees QTc Int : 442 ms Normal sinus rhythm Minimal voltage criteria for LVH, may be normal variant Possible Inferior infarct , age undetermined Abnormal ECG Confirmed by REX SANDERSON, LURDES ([id number]), communications editor BLAIRE KLEIN ([id number]) on 12/10/2018 11:50:38 AM Referred By: Baljeet Ferguson Confirmed By:CHELSEA GOODMAN MD
[2018-12-09 14:04] LABS: Anion Gap 8 (5-15); BUN 19 mg/dL (7-18); BUN/Creat Ratio 21.4 RATIO (10-20); Chloride 111 mmol/L (98-107); Creatinine, Serum 0.89 mg/dL (0.55-1.02); EST Glomerular Filtration Rate 71 mL/min (>60); Est Glom Filt Rate - Afr Amer 86 mL/min (>60); Glucose 73 mg/dL (74-106); Potassium 3.7 mmol/L (3.5-5.1); Sodium Level 142 mmol/L (136-145); Thyroid Stim Hormone (TSH) 0.24 uIU/mL (0.358-3.74)
[2018-12-09 17:52] LABS: Hemoglobin A1c 6.1 % (4.2-6.3)
[2018-12-13] VITALS (16 sets, daily range): BP systolic 151–180; BP diastolic 74–86; PULSE 60–91; RESP 16–18; TEMP 36.5–36.8; O2SAT 95–100; BMI 44.2
--- NOTE | 2018-12-13 | IMM_PTH ---
PATIENT: JESUS ZEPEDA LOC: [facility] – [place] U#:[id number] AGE/SX: 53/F ROOM: RE12/13/[address]: Dr. Esa Melton DO : 1965 BED: DIS: 12/14/2018 SPEC #: [id number] RECD: 12/15/18 12:57 STATUS: PATRICIA REQ #: [id number] STACY: 12/13/18 00:[address]: Baljeet Ferguson DEPT: IMMUNOHISTOCHEMISTRY RECD BY: Palak Huitron ENTERED: 12/15/18 12:59 SP TYPE: IMMUNO OTHR DR: DO Dr. Riki Hooper MD Tissues: Thyroid gland, NOS Procedures: HBME (initial) CD56 (add) CK19 (add) GAL-3 (add) PHYSICIAN & INSTITUTION [place] [id number] SPECIMEN INFORMATION: Tissue Source: Left thyroid lobe Clinical Info: Multinodular goiter (nontoxic) Specimen Number: [id number] #2 CPT code: 98359, 47029 x3 METHODOLOGY: Deparaffinized sections of prefer/formalin-fixed tissue or PAP/DQ stained slides are incubated with monoclonal/polyclonal antibodies/oligonucleotide probes. Localization is made via biotin free immunoperoxidase method. Appropriate controls are performed and reacted as expected. Results on target cell population are indicated in the following table: RESULTS: ANTIBODY / CLONE RESULT Block 2 HBME1 (HBME-1) positive CK19 (A53-B/A2.26) positive GAL3 (9C4) positive CD56 (123C3.D5) negative These tests were developed and their performance characteristics determined by [facility]. They may not have been cleared or approved by the U.S. Food and Drug Administration. The FDA has determined that such clearance or approval is not necessary. 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 BOBBI:andreia 12/16/18
[2018-12-13 11:45] LABS: Bedside Glucose 111 mg/dL (70-110)
[2018-12-13] MEDS: Cefazolin 2 GM in 0.9% Normal Saline 100 ML IV (12:22)
--- NOTE | 2018-12-13 12:30 | PCM.OPRPT ---
Problem List (1) Nontoxic multinodular goiter Status: Acute Report of Operation Date of Procedure: 12/13/18 Pre-Operative Diagnosis: Multinodular goiter Post-Operative Diagnosis: Same Surgery/Procedure Performed:: Completion left-sided thyroid lobectomy Type of Anesthesia:: General Anesthesiologist: Margarito Walls Specimen's removed: Left thyroid Estimated Blood Loss (mL): < 25 cc Description of Procedure: Patient was brought into the operating room. Placed in the supine position. Under excellent general endotracheal intubation towel was placed underneath the shoulder blades and neck was extended sterilely prepped and draped in usual fashion. Local was injected I opened up the previous incision extended slightly to the left side. Electrocautery was used to create subplatysmal flaps. Midline strap muscles were opened. The retractor was placed inside the wound. I dissected the strap muscles off of the thyroid gland. I went to the superior pole vessels and took these down with harmonic dissector went to the inferior pole vessels and took these down with harmonic dissector. Rotated the gland from lateral medial standpoint taking the thyroid off of Chris's ligaments with harmonic dissector I did not see the recurrent laryngeal nerve. I had good hemostasis I irrigated out I saw no bleeding placed a small piece of Surgicel into the wound midline strap muscles were closed together with a 2-0 Vicryl. Subplatysmal flaps were closed with 2-0 Vicryl. Deep dermal stitches of 3-0 Vicryl then a running 4-0 Monocryl. Dermabond was applied sterile dressings were applied and the patient tolerated the procedure well. - Admit VTE Documentation VTE Present on Admission: No VTE Mechan Device Prophylaxis: SCD's VTE Pharm Prophylaxis ordered?: No Reason prophylaxis not ordered:: Treatment Not Indicated
--- NOTE | 2018-12-13 12:35 | THYROID_PTH ---
PATIENT: JESUS ZEPEDA LOC: [facility] – [place] U#:[id number] AGE/SX: 53/F ROOM: RE12/13/[address]: Dr. Esa Melton DO : 1965 BED: DIS: 12/14/2018 SPEC #: [id number] RECD: 12/13/18 15:37 STATUS: PATRICIA HARPREET #: [id number] STACY: 12/13/18 12:[address]: Baljeet Ferguson DEPT: SURGICAL PATHOLOGY RECD BY: Micheal Rowland ENTERED: 12/14/18 07:46 SP TYPE: THYROID OTHR DR: DO Dr. Riki Hooper MD Tissues: Thyroid gland, NOS Procedures: Surgery Specimen Level V HEADER OPERATION: Completion thyroidectomy, left PRE-OP DIAGNOSIS: Multinodular goiter (nontoxic) E04.2 TISSUE SUBMITTED: Left thyroid lobe MICROSCOPIC DIAGNOSIS Left thyroid lobe, completion thyroidectomy: Colloid nodule with focal calcification and adenomatous changes. 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 See comment. SJ:andreia 12/16/18 COMMENT Immunohistochemistry ([id number]) supports the above diagnosis. Please make reference to previous specimen ([id number]) fine needle aspiration, left thyroid nodule with diagnosis of adequate for evaluation and negative, consistent with colloid nodule and ([id number]) right thyroid lobe, lobectomy with diagnosis of multinodular goiter with multiple adenomatoid nodules and two microscopic foci of incidental papillary carcinoma (each measuring <0.1 cm in greatest dimension). THYROID CANCER SUMMARY: Procedure - thyroid lobectomy Received - in formalin Specimen integrity - intact Specimen size - 6 x 5 x 3 cm Specimen weight - 38.4 gm Tumor focality - unifocal Tumor laterality - left lobe Tumor size - <0.1 cm in greatest dimension Histologic type - papillary carcinoma Variant - microcarcinoma Architecture - follicular Cytomorphology - classical Margins - Margins uninvolved by carcinoma. The tumor is <0.1 cm away from the closest posterior margin. Tumor capsule - none Tumor capsular invasion - not applicable Lymph-Vascular invasion - not identified Perineural invasion - not identified Extrathyroidal extension - not identified Regional lymph nodes - no nodes submitted. Distant metastasis - not applicable Additional pathologic findings - colloid nodule with focal calcification and adenomatoid changes Ancillary studies - Please refer to [id number]. PATHOLOGIC STAGE: pT1a pNx Mx The above summary is in compliance with [employer] (CAP) Cancer Protocols Checklist and [place] Joint Committee on Cancer (AJCC), Staging Manual, 8th Ed. MICROSCOPIC DESCRIPTION Slides are reviewed. GROSS DESCRIPTION Received in fixative is one container labeled with the patient's name and designated left thyroid lobe. The specimen consists of a thyroid lobectomy specimen weighing 38.4 gm and measuring 6 x 5 x 3 cm. No external parathyroid tissue is identified. The external surface is inked as follows: posterior surface - black, anterior surface - blue. Sections reveal a nodule occupying almost the entire thyroid lobe with a central area of hemorrhage and colloidy cut surfaces. Content Coordinator sections are submitted in ten cassettes. Cassette 1 contains the most superior portion of the lobe and cassette 10 contains the most inferior portion of the lobe. / SJ:rg 12/14/18 TC:0 CPT: 15178
[2018-12-13] MEDS: BUPIVACAINE LIPOSOME/PF 20 ML VIAL OPERA.SITE (13:18)
--- NOTE | 2018-12-13 14:15 | PN_ITS ---
Patient Problems: Active and Suspected Problems (Last Reviewed 11/27/18 @ 10:49 by Baljeet Ferguson MD) Nontoxic multinodular goiter (Acute) Subjective: Consult for post-op medical management: 53-year-old female past medical history of thyroid nodules/hypothyroidism, status post right thyroid lobectomy, hypertension, hyperlipidemia, type II DM on insulin who comes in for elective thyroidectomy. We have been consulted for postop medical management. She underwent left complete thyroid lobectomy today. Patient was seen and examined in her room. She denied any pain at the time of being seen. Denied any chest pain or dizziness or palpitation. Rest of review of systems was negative. Vitals/I&O's: Vital Signs Temp Pulse Resp BP Pulse Ox 98.2 F 64 16 152/83 H 97 12/13/18 13:42 12/13/18 13:42 12/13/18 13:42 12/13/18 13:42 12/13/18 13:42 Oxygen Delivery Method Room Air Weight: 120.6 kg Body Mass Index (BMI) 44.2 General: Alert, Oriented x3, Cooperative, No apparent distress, - - Morbidly obese HEENT: Atraumatic, PERRLA, EOMI, Normocephalic Oral: Moist Mucosa Neck: Supple, - - Swelling in the anterior neck, surgical dressing over the lower midline clean, intact Lungs: Clear to auscultation, Normal air movement Cardiovascular: Regular rate, Regular Rhythm, Normal S1, Normal S2, No murmurs Abdomen: Bowel Sounds Present, Soft, Non Tender, Non-Distended, No Hepato- splenomegaly Extremities: No edema Skin: No rashes, No breakdown Musculoskeletal: No Tenderness to Palpation of Joints or Extremities Lymphatic: No Cervical, Supraclavicular, or Inguinal Adenopathy Neurological: Cranial nerves II-XII grossly intact, Neuro grossly intact Psych/Mental Status: Normal Affect, Appropriate Laboratory Results 12/13/18 11:38: POC Glucose 111 H Current Medications Albuterol Sulfate (Ventolin Hfa (Sp)) 1 - 2 puff INHALATION Q4H PRN PRN PRN Reason: WHEEZING Amlodipine Besylate (Norvasc) 5 mg PO DAILY ABNER Atorvastatin Calcium (Lipitor) 40 mg PO QHS ABNER Dextrose (D50w Syringe) 0 gm IV X1 PRN; Protocol PRN Reason: Hypoglycemia Glucagon () 1 mg IM .X1 PRN PRN Reason: Hypoglycemia Hydromorphone HCl (Dilaudid Inj) 0.5 - 1 mg IV Q2H PRN PRN PRN Reason: PAIN Lactated Ringer's () 1,000 mls @ 65 mls/hr IV .[id number] ABNER Insulin Human Lispro (Humalog Kwikpen (Bkc)) 0 unit SC ACHS ABNER; Protocol Levothyroxine Sodium (Synthroid) 100 mcg PO DAILY@0600 [facility] Non-Formulary Medication (Insulin Detemir [Levemir Flexpen]) 74 units subcut QHS ABNER Non-Formulary Medication (Insulin Lispro) 18 unit SQ 1200,1800 [facility] Non-Formulary Medication (Losartan Potassium) 100 mg PO DAILY ABNER Non-Formulary Medication (Omeprazole) 20 mg PO DAILY ABNER Non-Formulary Medication (Saxagliptin Hcl/Metformin Hcl) 2 tab PO DAILY ABNER Ondansetron HCl (Zofran) 4 mg IV Q8H PRN PRN PRN Reason: NAUSEA Oxycodone HCl (Oxyir) 5 - 10 mg PO Q4H PRN PRN PRN Reason: SEVERE PAIN (6-10/10) Sodium Chloride () 10 - 40 ml IV UD PRN PRN Reason: SALINE FLUSH Medical Necessity - Tobacco Use Smoking Status: Never smoker Tobacco Use: Non-smoker Assessment/Plan All Active Problems (Last Reviewed 11/27/18 @ 10:49 by Baljeet Ferguson MD) Nontoxic multinodular goiter (Acute) 1. POD #0, status post complete left-sided thyroid lobectomy, for multinodular goiter, history of right-sided thyroid lobectomy Pain is fairly controlled, continue according to surgical recommendations 2. Hypothyroidism, multinodular goiter, on Synthroid 3. Hypertension, slightly uncontrolled secondary to pain, continue to monitor, continue on amlodipine, losartan Hydralazine prn, will put patient on telemetry, continue to monitor may discontinue telemetry tomorrow blood pressures are better controlled 4. Type II DM, insulin-dependent, patient is on an antibiotic maintain her diet, continue on metformin, Tradjenta, and home Lantus as well as pre-meal insulin Continue to monitor blood sugars before meals at bedtime with insulin sliding scale if needed. 5. DVT PPx- Heparin SC Code Visit Inpatient E&M: 14018 Subs Hosp L2
[2018-12-13 14:30] LABS: Bedside Glucose 103 mg/dL (70-110)
[2018-12-13] MEDS: Lactated Ringers 1,000 ML 65 ML IV (15:25)
[2018-12-13] MEDS: oxyCODONE 5 MG Tablet PO ×2 (15:25→20:15)
[2018-12-13 16:21] LABS: Calcium,Total 9.1 mg/dL (8.5-10.1)
[2018-12-13] MEDS: Insulin Lispro 100 UNIT/ML INSULN.PEN 18 UNIT SC (17:55)
[2018-12-13 17:56] LABS: Bedside Glucose 143 mg/dL (70-110)
[2018-12-13] MEDS: Losartan Potassium 100 MG Tablet PO (17:57)
[2018-12-13] MEDS: amLODIPine 5 MG Tablet PO (17:58)
[2018-12-13 18:50] LABS: Calcium,Total 8.8 mg/dL (8.5-10.1)
[2018-12-13] MEDS: Atorvastatin Calcium 40 MG Tablet PO (20:16)
[2018-12-13] MEDS: Heparin Injection (Vial) 5,000 UNIT/ML VIAL 5000 UNIT SC (21:41)
[2018-12-13 21:51] LABS: Bedside Glucose 137 mg/dL (70-110)
[2018-12-14] MEDS: oxyCODONE 5 MG Tablet PO ×2 (00:45→08:40)
[2018-12-14 01:59] VITALS: BP 168/83; PULSE 79; PULSE 83; RESP 18; TEMP 36.7; O2SAT 93
[2018-12-14 04:39] VITALS: BP 168/87; PULSE 77
[2018-12-14 04:40] VITALS: BP 168/87; PULSE 77
[2018-12-14] MEDS: hydrALAZINE 20 MG/ML Vial 5 MG IV (04:40)
[2018-12-14 05:34] VITALS: BP 154/78; PULSE 76; RESP 18; O2SAT 96
[2018-12-14] MEDS: Levothyroxine 100 MCG Tablet PO (05:35)
[2018-12-14] MEDS: Heparin Injection (Vial) 5,000 UNIT/ML VIAL 5000 UNIT SC (05:36)
[2018-12-14 05:43] LABS: Absolute Lymphocyte Count 1.57 X10^3/uL (0.83-4.51); Absolute Neutrophil Count 5.1 X10^3/uL (2.0-7.7); Basophil# 0.05 X10^3/uL; Basophil% 0.6 % (0-1); Eosinophil# 0.26 X10^3/uL; Eosinophils% 3.3 % (0-5); Hematocrit 33.1 % (37-47); Hemoglobin 10.4 g/dL (12.0-15.0); Lymphocyte # 1.57 X10^3/ul (4.0); Lymphocyte % 20.2 % (19-41); Mean Corp Hgb Conc 31.4 g/dL (32-36); Mean Corpuscular Hgb 26.9 pg (27.0-32.0); Mean Corpuscular Volume 85.8 fL (81-99); Mean Platelet Vol. 9.1 fl (6.2-12.0); Monocyte# 0.77 X10^3/uL; Monocyte% 9.9 % (0-10); NRBC Flagged by Analyzer 0 % (0-5); Neutrophil % 65.7 % (47-70); Platelet Count 236 K/mm3 (150-450); RBC Distribution Width CV 14.6 % (11.6-14.6); RBC Distribution Width SD 45.2 fl (35.1-43.9); Red Blood Count 3.86 M/mm3 (4.2-5.4); White Blood Count 7.8 K/mm3 (4.4-11.0)
[2018-12-14 06:12] LABS: Anion Gap 8 (5-15); BUN 12 mg/dL (7-18); BUN/Creat Ratio 14.2 RATIO (10-20); Calcium,Total 8.5 mg/dL (8.5-10.1); Chloride 105 mmol/L (98-107); Creatinine, Serum 0.85 mg/dL (0.55-1.02); EST Glomerular Filtration Rate 75 mL/min (>60); Est Glom Filt Rate - Afr Amer 91 mL/min (>60); Estimated Creatinine Clearance 69.67 ml/min; Glucose 111 mg/dL (74-106); Sodium Level 138 mmol/L (136-145)
[2018-12-14] MEDS: Lactated Ringers 1,000 ML 65 ML IV (06:17)
[2018-12-14 07:11] LABS: Bedside Glucose 112 mg/dL (70-110)
[2018-12-14 08:00] VITALS: BP 148/98; PULSE 72; PULSE 89; RESP 16; TEMP 36.8; O2SAT 95
--- NOTE | 2018-12-14 08:20 | PCM.PN.HOSP ---
Patient Problems: Active and Suspected Problems (Last Reviewed 11/27/18 @ 10:49 by Baljeet Ferguson MD) Nontoxic multinodular goiter (Acute) Subjective: Neck is a little stiff, but no other acute complaints. Vitals/I&O's: Vital Signs Temp Pulse Resp BP Pulse Ox 36.7 C 76 18 154/78 H 96 12/14/18 01:59 12/14/18 05:34 12/14/18 05:34 12/14/18 05:34 12/14/18 05:34 Oxygen Delivery Method Room Air Weight: 120.6 kg Body Mass Index (BMI) 44.2 Intake and Output for Last 24 Hours 12/12/18 12/13/18 12/14/18 23:59 23:59 23:59 Intake Total 2855 / 4170 2275.2 / 2275.2 Output Total 1914 / 1914 Balance 2855 / 3520 360.2 / 360.2 General: Alert, No apparent distress HEENT: Atraumatic, Normocephalic Oral: Moist Mucosa, No Gingival or Mucosal Lesions/ Ulcerations Neck: - - neck incision clean and intact. Lungs: Clear to auscultation, Normal air movement, No rhonchi, No wheeze Cardiovascular: Regular rate, Regular Rhythm, Normal S1, Normal S2, No murmurs Abdomen: Bowel Sounds Present, Soft, Non Tender, Non-Distended Psych/Mental Status: Normal Affect, Appropriate Laboratory Results 12/13/18 11:38: POC Glucose 111 H 12/13/18 14:29: POC Glucose 103 12/13/18 15:45: Calcium 9.1 12/13/18 17:49: POC Glucose 143 H 12/13/18 18:25: Calcium 8.8 12/13/18 21:43: POC Glucose 137 H 12/14/18 05:26: Sodium 138, Potassium 4.0, Chloride 105, Carbon Dioxide 25.0, Anion Gap 8, BUN 12, Creatinine 0.85, Estim Creat Clear Calc 69.67, Est GFR (MDRD) Af Amer 91, Est GFR (MDRD) Non-Af 75, BUN/Creatinine Ratio 14.2, Glucose 111 H, Calcium 8.5 12/14/18 05:26: WBC 7.8, RBC 3.86 L, Hgb 10.4 L, Hct 33.1 L, MCV 85.8, MCH 26.9 L, MCHC 31.4 L, RDW Std Deviation 45.2 H, RDW Coeff of Negar 14.6, Plt Count 236, MPV 9.1, Immature Gran % (Auto) 0.300, Neut % (Auto) 65.7, Lymph % (Auto) 20.2, [place] % (Auto) 9.9, Eos % (Auto) 3.3, Baso % (Auto) 0.6, Absolute Neuts (auto) 5.1, Absolute Lymphs (auto) 1.57, Nucleated RBC % 0 12/14/18 07:03: POC Glucose 112 H Current Medications Albuterol Sulfate (Ventolin Aerosols) 2.5 mg INHALATION Q4H PRN PRN PRN Reason: WHEEZING Amlodipine Besylate (Norvasc) 5 mg PO DAILY [facility] Last Admin: 12/13/18 17:58 Dose: 5 mg Documented by: Atorvastatin Calcium (Lipitor) 40 mg PO QHS [facility] Last Admin: 12/13/18 20:16 Dose: 40 mg Documented by: Dextrose (D50w Syringe) 0 gm IV X1 PRN; Protocol PRN Reason: Hypoglycemia Glucagon () 1 mg IM .X1 PRN PRN Reason: Hypoglycemia Heparin Sodium (Porcine) (Heparin Na) 5,000 unit SC Q8 [facility] Last Admin: 12/14/18 05:36 Dose: 5,000 unit Documented by: Hydralazine HCl (Apresoline Iv) 5 mg IV Q6H PRN PRN PRN Reason: BLOOD PRESSURE Last Admin: 12/14/18 04:40 Dose: 5 mg Documented by: Hydrochlorothiazide (Hctz) 25 mg PO DAILY [facility] Hydromorphone HCl (Dilaudid Inj) 0.5 - 1 mg IV Q2H PRN PRN PRN Reason: PAIN Lactated Ringer's () 1,000 mls @ 65 mls/hr IV .[id number] [facility] Last Admin: 12/14/18 06:17 Dose: 65 mls/hr Documented by: Insulin Glargine (Lantus ([facility])) 74 units SC QHS [facility] Last Admin: 12/13/18 21:44 Dose: 74 u Documented by: Insulin Human Lispro (Humalog Kwikpen ([facility])) 18 unit SC 1200,1800 [facility] Last Admin: 12/13/18 17:55 Dose: 18 u Documented by: Insulin Human Lispro (Humalog Kwikpen ([facility])) 0 unit SC ACHS [facility]; Protocol Last Admin: 12/14/18 07:04 Dose: Not Given Documented by: Levothyroxine Sodium (Synthroid) 100 mcg PO DAILY@0600 [facility] Last Admin: 12/14/18 05:35 Dose: 100 mcg Documented by: Linagliptin (Tradjenta) 5 mg PO DAILY [facility] Losartan Potassium (Cozaar) 100 mg PO DAILY [facility] Last Admin: 12/13/18 17:57 Dose: 100 mg Documented by: Metformin [facility]) [facility] Ondansetron HCl (Zofran) 4 mg IV Q8H PRN PRN PRN Reason: NAUSEA Oxycodone HCl (Oxyir) 5 - 10 mg PO Q4H PRN PRN PRN Reason: SEVERE PAIN (6-10/10) Last Admin: 12/14/18 00:45 Dose: 5 mg Documented by: Pantoprazole Sodium (Protonix) 20 mg PO DAILY [facility] Sodium Chloride () 10 - 40 ml IV UD PRN PRN Reason: SALINE FLUSH Medical Necessity - Tobacco Use Smoking Status: Never smoker Tobacco Use: Non-smoker Assessment/Plan All Active Problems (Last Reviewed 11/27/18 @ 10:49 by Baljeet Ferguson MD) Nontoxic multinodular goiter (Acute) 1. Hypertension accelerated, but improving. still persistently high on losartan, added HCTZ home med rec has losartan, but patient states it has a diuretic (therefore HCTZ). Discharge patient with her home medications and to follow up with her PCP (no new Rx for BP needed). 2. DM2 controlled. continue Basal and prandial insulins as ordered. 3. S/P left thyroidectomy mgmt per Dr. Ferguson Medically stable for discharge home. Code Visit Inpatient E&M: 86572 Subs Hosp L2
--- NOTE | 2018-12-14 08:22 | PCM.PN.SRG ---
Patient Problems: Active and Suspected Problems (Last Reviewed 11/27/18 @ 10:49 by Baljeet Ferguson MD) Nontoxic multinodular goiter (Acute) Subjective: Patient is evaluated resting comfortably in bed. She notes discomfort at the incision site. She denies sore throat. - Physical Exam General: Alert, Oriented x3, Cooperative Neck: - - Anterior cervical incision- c/d/i. No erythema or infection noted. Minimal amount of ecchymosis noted. Vital Signs Temp Pulse Resp BP Pulse Ox 98.1 F 76 18 154/78 H 96 12/14/18 01:59 12/14/18 05:34 12/14/18 05:34 12/14/18 05:34 12/14/18 05:34 Oxygen Delivery Method Room Air Weight: 265 lb 14.04 oz Body Mass Index (BMI) 44.2 Intake and Output for Last 24 Hours 12/12/18 12/13/18 12/14/18 23:59 23:59 23:59 Intake Total 2855 / 4170 2275.2 / 2275.2 Output Total 1915 / 1915 Balance 2855 / 3520 360.2 / 360.2 Laboratory Tests Past 24 Hrs 12/13/18 12/13/18 12/14/18 15:45 18:25 05:26 WBC RBC Hgb Hct MCV MCH MCHC RDW Std Deviation RDW Coeff of Negar Plt Count MPV Immature Gran % (Auto) Neut % (Auto) Lymph % (Auto) [place] % (Auto) Eos % (Auto) Baso % (Auto) Absolute Neuts (auto) Absolute Lymphs (auto) Nucleated RBC % Sodium 138 Potassium 4.0 Chloride 105 Carbon Dioxide 25.0 Anion Gap 8 BUN 12 Creatinine 0.85 Estim Creat Clear Calc 69.67 Est GFR (MDRD) Af Amer 91 Est GFR (MDRD) Non-Af 75 BUN/Creatinine Ratio 14.2 Glucose 111 H Calcium 9.1 8.8 8.5 12/14/18 05:26 WBC 7.8 RBC 3.86 L Hgb 10.4 L Hct 33.1 L MCV 85.8 MCH 26.9 L MCHC 31.4 L RDW Std Deviation 45.2 H RDW Coeff of Negar 14.6 Plt Count 236 MPV 9.1 Immature Gran % (Auto) 0.300 Neut % (Auto) 65.7 Lymph % (Auto) 20.2 [place] % (Auto) 9.9 Eos % (Auto) 3.3 Baso % (Auto) 0.6 Absolute Neuts (auto) 5.1 Absolute Lymphs (auto) 1.57 Nucleated RBC % 0 Sodium Potassium Chloride Carbon Dioxide Anion Gap BUN Creatinine Estim Creat Clear Calc Est GFR (MDRD) Af Amer Est GFR (MDRD) Non-Af BUN/Creatinine Ratio Glucose Calcium POC Glucose 12/14/18 12/13/18 12/13/18 07:03 21:43 17:49 POC Glucose 112 H 137 H 143 H 12/13/18 12/13/18 14:29 11:38 POC Glucose 103 111 H Medical Necessity - Tobacco Use Smoking Status: Never smoker Tobacco Use: Non-smoker Assessment/Plan All Active Problems (Last Reviewed 11/27/18 @ 10:49 by Baljeet Ferguson MD) Nontoxic multinodular goiter (Acute) I am following this patient in conjunction with Dr. Ferguson. S/p completion of left thyroidectomy - Labs reviewed - Ready for discharge Code Visit Inpatient E&M: 76917 Subs Hosp L1 - No charge
[2018-12-14] MEDS: amLODIPine 5 MG Tablet PO (08:33)
[2018-12-14] MEDS: Losartan Potassium 100 MG Tablet PO (08:33)
[2018-12-14] MEDS: LINAGLIPTIN 5 MG TABLET PO (08:34)
[2018-12-14] MEDS: metFORMIN (XR) 500 MG Tablet 2000 MG PO (08:34)
[2018-12-14] MEDS: hydroCHLOROthiazide 25 MG Tablet PO (08:39)
[2018-12-14] MEDS: Pantoprazole Sodium 20 MG Tablet PO (08:39)
--- NOTE | 2018-12-14 08:50 | PCM.DC.GS ---
Discharge Diet: Light diet - advance as tolerated Discharge Activity: May not drive while taking narcotic pain medications. May shower in (days): 1 Lifting Restrictions: 10 pounds Call your doctor if your incision/area has: Continuous Slow Oozing, Sudden Increased Bleeding, Increased Pain/ Swelling, Foul Smelling Discharge Suture Line Care: Avoid Pulling/Pushing, Avoid Pinching/Bending Additional Dressing/Incision Instructions:: May leave incision open to air. No dressing is needed. Additional Instructions: Recommend 2 extra strength TUMs at 3 times per day for 2 weeks Will recheck TSH level in 6 weeks from surgery Allergies/Adverse Reactions: Allergies latex Allergy (Verified 11/29/18 15:05) Rash lisinopril Adverse Reaction (Verified 11/29/18 15:05) Other COUGH Medications to take at Discharge Amlodipine Besylate 5 mg PO DAILY 04/06/13 Aspirin [Ecotrin] 81 mg PO DAILY 04/06/13 Insulin Detemir [Levemir FlexPen] 74 units SUBCUT QHS 04/06/13 Levothyroxine [Synthroid] 50 mcg PO DAILY 04/06/13 Losartan Potassium 100 mg PO DAILY 04/06/13 Saxagliptin HCl/Metformin HCl [Kombiglyze Xr 2.5-1,000 mg Tab] 2 tab PO DAILY 04/06/13 Atorvastatin Calcium [Lipitor] 40 mg PO QHS 05/23/17 Insulin Lispro [Humalog Kwikpen] 16 unit SUBCUT DAILY 05/23/17 Omeprazole [Prilosec] 20 mg PO DAILY 05/23/17 Albuterol Inhaler [Ventolin Hfa] 1 - 2 puff INHALATION Q4H PRN PRN #1 inhaler 09/06/17 Insulin Lispro [Humalog] 18 unit SQ 1200,1800 11/29/18 Oxycodone HCl/Acetaminophen [Percocet 5/325] 1 - 2 tab PO Q4H PRN PRN 6 Days #30 tab 12/13/18 Levothyroxine [Synthroid] 100 mcg PO DAILY@0600 #30 tab 12/14/18 The following prescriptions were given: Oxycodone HCl/Acetaminophen [Percocet 5/325] 1 - 2 tab PO Q4H PRN PRN 6 Days #30 tab PRN Reason: Pain Prescription Printed Levothyroxine [Synthroid] 100 mcg PO DAILY@0600 #30 tab Transmission Status: Pending to [facility] #30 Orders to be completed after discharge: 12 Lead EKG [[facility]] Time Frame: 11/29/18, Facility: [facility], Location: Cardiovascular Services Primary Care Physician: Riki Clark MD [Primary Care Provider] - Test Results: Test results from this visit will be discussed in further detail at your follow-up appointment, if applicable. Please Follow Up With: Baljeet Ferguson MD - [phone] When: 7-10 days Proposed Discharge Date: 12/14/18
== END 2018-12-14 10:45 | disposition home or self-care (01) ==
LOC: SDC 10:21 → AC 10:22 → MS3 10:23
PROVIDERS: Anesthesiology; Internal Medicine; Family Provider Family Medicine; PCP Family Medicine; Referring Provider Surgery
PROC: (CPT 60225; principal; 2018-12-13 12:20)
DX: C73 Malignant neoplasm of thyroid gland (principal); E04.1 Nontoxic single thyroid nodule; E03.9 Hypothyroidism, unspecified; I10 Essential (primary) hypertension; E78.5 Hyperlipidemia, unspecified; E11.9 Type 2 diabetes mellitus without complications; Z79.4 Long term (current) use of insulin
CPT/HCPCS: 00320; 60225; 36415; 80048; 82310; 82962; 83036; 84443; 85025; 88307; 88341; 88342; 93005; J7120; J2405

== ENCOUNTER 2019-03-17 23:01 | Emergency (ER) | payer MEDICARE, MEDICAID, SELFPAY ==
[2018-12-13 15:09] VITALS: BMI 44.2
[2019-03-17 23:03] VITALS: BP 199/91; PULSE 77; RESP 18; TEMP 36.6; O2SAT 97; BMI 44.2
[2019-03-17 23:14] VITALS: BP 184/84
--- NOTE | 2019-03-17 23:16 | CT_ITS ---
HISTORY: FALL,LARGE HEMATOMA TO FOREHEAD ABOVE RT EYE,DENIES LOCHX:HTN,DIABETES,THYROID CANCER ADDITIONAL HISTORY: None provided. COMPARISON: 11/21/2018 TECHNIQUE: Axial, coronal and sagittal CT images were obtained of the brain without intravenous contrast. Number of images including paperwork: 245. A radiation dose optimization technique was used for this scan. FINDINGS: BRAIN PARENCHYMA: No acute hemorrhage or mass. No definite acute infarct; MRI more sensitive. EXTRA-AXIAL SPACES: No acute hemorrhage. VENTRICULAR SYSTEM: No hydrocephalus. PARANASAL SINUSES AND MASTOIDS: No air-fluid level in the imaged extent. ORBITS: Unremarkable imaged extent. SKELETON AND SOFT TISSUES: Calvarium intact. Right frontal scalp hematoma. ASPECTS score: Not applicable. CT/Brain/Head without Contrast IMPRESSION: No acute intracranial abnormality. Individualized dose optimization techniques were used for this CT. at 0001 Reported and signed by: Lidia Nath MD Electronically Signed: Lidia Nath MD at 0:01 EST Tel , Service support ,
--- NOTE | 2019-03-17 23:18 | ED.DCSUM_ITS ---
History of Present Illness Chief Complaint: Head Injury Informant: Patient Narrative: Presents with a head injury. She stated that she tripped and struck her forehead on a wash band that was made of metal. She suffered a hematoma. No loss of consciousness. She is on no blood thinners. She noted she developed a large hematoma with a frontal headache therefore she came in for further evaluation. Denies any other neurologic deficits. Current severity is moderate hematoma. No home treatment. - Past Medical History (1) Nontoxic multinodular goiter Status: Acute (2) Asthma Status: Chronic (3) HTN (hypertension) Status: Chronic (4) Hyperlipidemia Status: Chronic (5) Hypothyroid Status: Chronic (6) Migraines Status: Chronic Comment: left 12/13 (7) Type 2 diabetes mellitus Status: Chronic Past Medical History - Allergies and Home Meds Allergies/Adverse Reactions: Allergies latex Allergy (Verified 03/17/19 23:06) Rash lisinopril Adverse Reaction (Verified 03/17/19 23:06) Other COUGH Primary Care Physician: Riki Clark MD [Primary Care Provider] - Prior records reviewed: Yes Past Medical History: - - See problem list Surgical History: - - Thyroid Lives: With Family Smoking Status: Never smoker Alcohol: None Drugs: None Review of Systems General: Denies: Chills, Fever, Sweats Eyes: Denies: Visual changes - bilaterally, Diplopia ENT: Denies: Rhinorrhea, Sore throat Cardiovascular: Denies: Chest pain, Palpitations Respiratory: Denies: Dyspnea, Cough, Dyspnea on exertion Gastrointestinal: Denies: Abdominal pain, Nausea, Vomiting, Diarrhea, Melena, Hematochezia Genitourinary: Denies: Dysuria, Hematuria, Frequency Musculoskeletal: Denies: Back pain, Extremity Pain Skin: Denies: Rash, Wounds Neurological: Reports: Headache. Denies: Weakness, Parasthesia, Numbness Physical Exam Vital Signs/Narrative: Vital Signs Temp Pulse Resp BP Pulse Ox 03/17/19 23:03 97.9 F 77 18 199/91 H 97 General: Well nourished, Well developed, No Acute Distress Head: Trauma - Patient has a 5 x 5 cm hematoma that is 1.5 cm raised on her right forehead. No surrounding contusion. Tender to palpation. Negative for: Normocephalic, Atraumatic Eyes: Perrl, EOMI ENT: Moist mucous membranes, No rhinorrhea Neck: Supple, Nontender Cardiovascular: Regular rate, Regular rhythm, No murmurs Respiratory: No distress, CTA bilaterally, Chest nontender Abdomen: Soft, Nontender, Nondistended, Normal bowel sounds Back: Nontender, Normal Inspection Extremities: Nontender, No edema Skin: Normal color, No rash Neurological: Alert, Oriented x3, Cranial nerves II-XII grossly intact, Normal Strength, Normal Sensation Psychological: Normal affect, Normal Mood Diagnostic/Tx/Re-eval - Medical Decision Making Tylenol orally. CT had obtained. CT head negative for intracranial abnormality or fracture to the scalp. Subcutaneous scalp hematoma noted. Patient will continue ice and was given Billy wrap. We will continue Tylenol. We will follow- up as an outpatient. At this time I feel she has had a scalp hematoma ED Disposition - Plan for ED Patient: Disposition: Home or Assisted Living Diagnosis: Blunt head injury, Traumatic hematoma of forehead Instructions: HEAD INJURY, No Wake-Up (Adult), Hematoma Referrals: Riki Clark MD [Primary Care Provider] -
[2019-03-17] MEDS: Acetaminophen 500 MG Tablet 1000 MG PO (23:23)
[2019-03-18 00:19] VITALS: PULSE 88; O2SAT 97
== END 2019-03-18 00:27 | disposition home or self-care (01) ==
PROVIDERS: Emergency Provider Emergency Medicine; Family Provider Family Medicine; PCP Family Medicine
DX: S00.83XA Contusion of other part of head, initial encounter (principal); W01.198A Fall on same level from slipping, tripping and stumbling with subsequent striking against other object, initial encounter; Y93.9 Activity, unspecified; Y92.89 Other specified places as the place of occurrence of the external cause; Y99.9 Unspecified external cause status; E03.9 Hypothyroidism, unspecified; E11.9 Type 2 diabetes mellitus without complications; E78.5 Hyperlipidemia, unspecified; I10 Essential (primary) hypertension; J45.909 Unspecified asthma, uncomplicated; Z91.040 Latex allergy status
CPT/HCPCS: 70450; 99283

== ENCOUNTER 2019-05-08 08:12 | Emergency (ER) | payer MEDICARE, MEDICAID, SELFPAY ==
[2019-05-08 08:13] VITALS: BP 197/87; PULSE 75; RESP 17; TEMP 36.6; O2SAT 97; BMI 45.6
[2019-05-08 08:15] VITALS: TEMP 36.6
--- NOTE | 2019-05-08 08:43 | RAD_ITS ---
STUDY: X-RAY CHEST REASON FOR EXAM: Female, 53 years old. anterior and right lower chest pressure x one day TECHNIQUE: PA and lateral views of the chest. COMPARISON: September 06, 2017 FINDINGS: Lungs are mildly hypoinflated. Lungs are essentially clear. There is no demonstrated pleural abnormality. There is mild cardiac enlargement. Normal mediastinum and luis enrique. Normal visualized pulmonary arteries. Normal visualized aortic arch and descending thoracic aorta. Normal visualized thoracic spine. Normal visualized ribs, clavicles, and shoulders. There is no demonstrated abnormality of the visualized soft tissue structures of the upper abdomen. RAD/Chest PA and Lateral IMPRESSION: Mildly hypoinflated lungs. Lungs are clear. Electronically Signed: Olu Pryor DO at 9:05 EST Tel , Service support ,
--- NOTE | 2019-05-08 08:44 | EKG12_ITS ---
Test Reason : COUGH Blood Pressure : / mmHG Vent. Rate : 067 BPM Atrial Rate : 067 BPM P-R Int : 178 ms QRS Dur : 146 ms QT Int : 430 ms P-R-T Axes : 038 -05 006 degrees QTc Int : 454 ms Normal sinus rhythm Right bundle branch block Possible Inferior infarct (cited on or before 09-DEC-2018) Abnormal ECG Confirmed by JORGE SANDERSON, BLANCO ([id number]), electronic news gathering editor LATANYA COOPER ([id number]) on 05/10/2019 10:02:50 AM Referred By: SHELLEY Confirmed By:BLANCO PATEL MD
--- NOTE | 2019-05-08 08:44 | ED.VIS.GEN ---
History of Present Illness Chief Complaint: Cough Informant: Patient Onset: Weeks Context: Gradual Onset Current Severity: Mild Maximum Severity: Moderate Narrative: Patient presents with a two-week history of cough. She reports chest congestion but she is not really bringing up much sputum. She has had chills but no fever. Yesterday she had a burning sensation around her ribs and abdomen that is worse with movement. Today she still reports a tightness around her rib area. - Past Medical History (1) Nontoxic multinodular goiter Status: Chronic (2) Asthma Status: Chronic (3) HTN (hypertension) Status: Chronic (4) Hyperlipidemia Status: Chronic (5) Hypothyroid Status: Chronic (6) Migraines Status: Chronic Comment: left 12/13 (7) Type 2 diabetes mellitus Status: Chronic Past Medical History - Allergies and Home Meds Allergies/Adverse Reactions: Allergies latex Allergy (Verified 05/08/19 08:13) Rash lisinopril Adverse Reaction (Verified 05/08/19 08:13) Other COUGH Primary Care Physician: Riki Clark MD [Primary Care Provider] - Prior records reviewed: Yes Surgical History: - - Thyroid Smoking Status: Never smoker Review of Systems General: Reports: Chills. Denies: Fever Eyes: Denies: Visual changes - bilaterally ENT: Denies: Bilateral ear pain Cardiovascular: Denies: Chest pain Respiratory: Reports: Dyspnea, Cough. Denies: Sputum Gastrointestinal: Reports: Abdominal pain - Yesterday, currently resolved. Denies: Vomiting Genitourinary: Denies: Dysuria Musculoskeletal: Reports: Back pain. Denies: Extremity Pain Skin: Denies: Rash Neurological: Denies: Headache, Weakness Allergy: Denies: Uticaria Physical Exam Vital Signs/Narrative: Vital Signs Temp Pulse Resp BP Pulse Ox 05/08/19 08:15 97.9 F 05/08/19 08:13 97.9 F 75 17 197/87 H 97 Inital Vital Signs reviewed: Yes General: Well nourished, Well developed Head: Normocephalic ENT: Moist mucous membranes Neck: Supple Cardiovascular: Regular rate, Regular rhythm Respiratory: No distress, CTA bilaterally, Chest tenderness - Reproducible anterior chest wall tenderness. No crepitus. Abdomen: Soft, Nontender Extremities: - - Chronic lymphedema bilateral lower extremities. Skin: Normal color Neurological: Alert, Oriented x3 Psychological: Normal affect Diagnostic/Tx/Re-eval Impressions Chest X-Ray 05/08/19 08:43 IMPRESSION: Mildly hypoinflated lungs. Lungs are clear. Electronically Signed: Olu Pryor DO at 9:05 EST Tel , Service support , 05/08/19 08:43 Chest PA and Lateral [RAD] Stat - EKG Initial EKG Interpretation: Sinus Rhythm - Sinus at 67 with right bundle branch block. Only slight changes noted when compared to prior study from November 2017. - Medical Decision Making Patient had 2 weeks of cough with reproducible chest wall pain. She does not have pleuritic symptoms and does not feel significantly short of breath. She will be covered with a course of doxycycline and that her symptoms of been ongoing for 2 weeks. ED Disposition - Plan for ED Patient: Disposition: Home or Assisted Living Diagnosis: Bronchitis Instructions: BRONCHITIS, Antiobiotic Treatment (Adult) Prescriptions: Doxycycline 100 mg PO BID #20 cap Transmission Status: Pending to [facility] #30 Referrals: Riki lCark MD [Primary Care Provider] -
[2019-05-08] MEDS: Doxycycline 100 MG CAPSULE PO (10:01)
[2019-05-08 10:03] VITALS: PULSE 67; RESP 20; O2SAT 100
== END 2019-05-08 10:03 | disposition home or self-care (01) ==
PROVIDERS: Emergency Provider Emergency Medicine; Family Provider Family Medicine; PCP Family Medicine
DX: J40 Bronchitis, not specified as acute or chronic (principal); E03.9 Hypothyroidism, unspecified; E11.9 Type 2 diabetes mellitus without complications; E78.5 Hyperlipidemia, unspecified; I10 Essential (primary) hypertension; I45.10 Unspecified right bundle-branch block; Z91.040 Latex allergy status; I89.0 Lymphedema, not elsewhere classified; E04.2 Nontoxic multinodular goiter
CPT/HCPCS: 71046; 93005; 99283

== ENCOUNTER → 2019-06-02 13:00 | Outpatient (CLI) | payer MEDICARE, MEDICAID, SELFPAY ==
[2019-05-08 08:13] VITALS: BMI 45.6
== END ==
PROVIDERS: PCP Family Medicine; Referring Provider Family Medicine; Visit Provider Family Medicine
DX: G47.33 Obstructive sleep apnea (adult) (pediatric) (principal)
CPT/HCPCS: 98960; G0463

== ENCOUNTER 2019-06-10 20:28 | Emergency (ER) | payer MEDICARE, MEDICAID, SELFPAY ==
[2019-06-10 20:29] VITALS: BP 196/98; PULSE 80; RESP 15; TEMP 37.2; O2SAT 96; BMI 45.7
[2019-06-10 20:54] LABS: Bacteria 0 SEEN /hpf (None Seen); Mucous, Urine 0 SEEN /hpf (<or=2+); White Blood Cells 0 SEEN /hpf (0-5)
--- NOTE | 2019-06-10 20:55 | CT_ITS ---
STUDY: CT ABDOMEN AND PELVIS WITHOUT CONTRAST REASON FOR EXAM: Female, 53 years old. RIGHT FLANK PAIN, DRY HEAVES, URINARY FREQUENCY/URGENCY. Hx of asthma, diabetes and HTN RADIATION DOSAGE (If Supplied By Facility): CTDIvol = ( 19.44 ) mGy, DLP = ( 956.51 ) mGycm TECHNIQUE: Transaxial images were obtained from the dome of the diaphragm to the symphysis pubis without oral contrast, and without intravenous contrast. Sagittal and coronal images were reconstructed. Individualized dose optimization techniques were used for this CT. COMPARISON: None. FINDINGS: Patchy groundglass infiltrates at the lung bases. The visualized portions of the heart are within normal limits. Normal liver. Normal gallbladder and extrahepatic biliary system. Normal spleen. Normal pancreas. Normal bilateral adrenal glands. Moderate right hydronephrosis and perinephric stranding. Punctate 1 to 2 mm ureterolith at the ureterovesicular junction. Nonobstructive nephrolithiasis on the right. Surgical clips are also noted. The distal right ureter. Normal left kidney. Normal visualized stomach. Normal small intestine. Normal colon. Appendix is not identified. Normal abdominal aorta. Normal inferior vena cava. Normal retroperitoneum. Normal urinary bladder. Uterus normal. Normal abdominal wall. Multilevel vacuum disc phenomenon. CT/Abdomen/Pelvis without Cont IMPRESSION: Moderate right hydronephrosis due to a 1 to 2 mm ureterolith at the ureterovesicular junction. Surgical clips are also noted near the distal ureter and clinical correlation is required. Electronically Signed: Saurabh Pappas MD at 22:02 EST , Service support ,
--- NOTE | 2019-06-10 20:56 | ED.VIS.GEN ---
History of Present Illness Chief Complaint: Flank Pain Informant: Patient Onset: Today Context: Sudden Onset Timing: Waxes and wanes Current Severity: Moderate Maximum Severity: Moderate Narrative: Patient presents with rather abrupt onset of right flank pain this evening. She denies urinary symptoms. No history of kidney stones. No injury or fall. - Past Medical History (1) Asthma Status: Chronic (2) HTN (hypertension) Status: Chronic (3) Hyperlipidemia Status: Chronic (4) Hypothyroid Status: Chronic (5) Migraines Status: Chronic Comment: left 12/13 (6) Nontoxic multinodular goiter Status: Chronic (7) Type 2 diabetes mellitus Status: Chronic Past Medical History - Allergies and Home Meds Allergies/Adverse Reactions: Allergies latex Allergy (Verified 06/10/19 20:35) Rash lisinopril Adverse Reaction (Verified 06/10/19 20:35) Other COUGH Primary Care Physician: Riki Clark MD [Primary Care Provider] - Prior records reviewed: Yes Surgical History: - - Thyroid Lives: Spouse/ Significant Other Smoking Status: Never smoker Review of Systems General: Denies: Chills, Fever Eyes: Denies: Visual changes - bilaterally ENT: Denies: Bilateral ear pain Cardiovascular: Denies: Chest pain, Palpitations Respiratory: Denies: Dyspnea, Cough Gastrointestinal: Reports: Abdominal pain - Right flank pain. Denies: Vomiting, Diarrhea Genitourinary: Denies: Dysuria Musculoskeletal: Denies: Extremity Pain Skin: Denies: Rash Neurological: Denies: Headache Hematologic: Denies: Easy bruising Allergy: Denies: Uticaria Physical Exam Vital Signs/Narrative: Vital Signs Temp Pulse Resp BP Pulse Ox 06/10/19 20:29 99.0 F 80 15 196/98 H 96 Inital Vital Signs reviewed: Yes General: Well nourished, Well developed Head: Normocephalic ENT: Moist mucous membranes Neck: Supple Cardiovascular: Regular rate, Regular rhythm Respiratory: No distress, CTA bilaterally Abdomen: Soft, Tender - Mild right lower quadrant tenderness. Back: CVA tenderness - Right CVA tenderness Skin: Normal color Neurological: Alert, Oriented x3 Psychological: Normal affect Diagnostic/Tx/Re-eval Impressions Abdomen/Pelvis CT 06/10/19 20:55 IMPRESSION: Moderate right hydronephrosis due to a 1 to 2 mm ureterolith at the ureterovesicular junction. Surgical clips are also noted near the distal ureter and clinical correlation is required. Electronically Signed: Saurabh Pappas MD at 22:02 EST , Service support , 06/10/19 20:55 Abdomen/Pelvis without Cont [CT] Stat Laboratory Results 06/10/19 06/10/19 06/10/19 20:30 21:30 21:30 WBC 7.0 RBC 3.87 L Hgb 9.1 L Hct 30.0 L MCV 77.5 L MCH 23.5 L MCHC 30.3 L RDW Std Deviation 46.6 H RDW Coeff of Negar 16.6 H Plt Count 310 MPV 9.3 Immature Gran % (Auto) 0.100 Neut % (Auto) 68.5 Lymph % (Auto) 18.6 L [place] % (Auto) 10.0 Eos % (Auto) 2.1 Baso % (Auto) 0.7 Absolute Neuts (auto) 4.8 Absolute Lymphs (auto) 1.30 Nucleated RBC % 0 Sodium 140 Potassium 3.9 Chloride 109 H Carbon Dioxide 27.0 Anion Gap 4 L BUN 22 H Creatinine 1.10 H Estim Creat Clear Calc 53.83 Est GFR (MDRD) Af Amer 67 Est GFR (MDRD) Non-Af 55 L BUN/Creatinine Ratio 20.0 Glucose 108 H Calcium 8.8 Urine Color Yellow Urine Clarity Clear Urine pH 6.5 Ur Specific [place] 1.010 Urine Protein 30 H Urine Glucose (UA) Normal Urine Ketones Negative Urine Occult Blood 150 H Urine Nitrite Negative Urine Bilirubin Negative Urine Urobilinogen Normal Ur Leukocyte Esterase Negative Urine RBC 10-25 SEEN Urine WBC 0 SEEN Ur Squamous Epith Cells 0-5 SEEN Urine Bacteria 0 SEEN Urine Mucus 0 SEEN - Medical Decision Making She was given morphine, Toradol, Zofran, and IV fluids. On repeat evaluation she feels much improved. Patient does have a small stone at the UVJ on the right. I will write her for [place], Zofran, Flomax, and Toradol. Patient be referred to Dr. Mackey if symptoms are not resolved in the next several days. She is given return instructions. ED Disposition - Plan for ED Patient: Disposition: Home or Assisted Living Diagnosis: Kidney stone Instructions: KIDNEY STONE w/ Colic Prescriptions: Tamsulosin HCl [Flomax] 0.4 mg PO DAILY #7 capsule Hydrocodone Bitart/Apap 5-325 [[place] 5MG-325MG] 1 tablet PO Q6H PRN PRN 3 Days #10 tablet PRN Reason: Pain Ketorolac [Toradol] 10 mg PO Q6H #10 tablet Ondansetron [Zofran Odt] 4 mg PO Q8H PRN PRN #10 tablet PRN Reason: Nausea Referrals: Riki Clark MD [Primary Care Provider] - Chi Mackey MD [STAFF PHYSICIAN] - 3-5 Days if not improving
[2019-06-10 20:58] LABS: Color, Urine Yellow (Yellow); Glucose, Dipstick Normal (Normal); Ketone-Dipstick Negative (Negative); Leukocyte Esterase-Dipstick Negative /ul (Negative); Nitrite-Dipstick Negative (Negative); Occult Blood-Urine 150 /ul (Negative); Protein-Dipstick 30 mg/dl (Negative); Urine Bilirubin Dipstick Negative (Negative); Urine Clarity Clear (Clear); Urine Urobilinogen Normal (Normal); Urine pH 6.5 (5.0 - 8.0)
[2019-06-10 21:11] LABS: Red Blood Cells-Urine 10-25 SEEN /hpf (0-5); Squamous Epithelial Cells - UA 0-5 SEEN /hpf (5-10)
[2019-06-10] MEDS: Ondansetron 4 MG/2 ML Vial IV (21:24)
[2019-06-10] MEDS: Morphine 4 MG/ML Syringe IV (21:24)
[2019-06-10] MEDS: Ketorolac 15 MG/ML Vial IV (21:24)
[2019-06-10] MEDS: 0.9% Normal Saline 1,000 ML 150 ML IV (21:25)
[2019-06-10 21:38] LABS: Absolute Neutrophil Count 4.8 X10^3/uL (2.0-7.7); Basophil# 0.05 X10^3/uL; Basophil% 0.7 % (0-1); Eosinophil# 0.15 X10^3/uL; Eosinophils% 2.1 % (0-5); Hemoglobin 9.1 g/dL (12.0-15.0); Lymphocyte % 18.6 % (19-41); Mean Corp Hgb Conc 30.3 g/dL (32-36); Mean Corpuscular Hgb 23.5 pg (27.0-32.0); Mean Corpuscular Volume 77.5 fL (81-99); Mean Platelet Vol. 9.3 fl (6.2-12.0); NRBC Flagged by Analyzer 0 % (0-5); Neutrophil # 4.78 X10^3/uL (2.7-7.7); Neutrophil % 68.5 % (47-70); Platelet Count 310 K/mm3 (150-450); RBC Distribution Width CV 16.6 % (11.6-14.6); RBC Distribution Width SD 46.6 fl (35.1-43.9); Red Blood Count 3.87 M/mm3 (4.2-5.4)
[2019-06-10 21:50] LABS: Anion Gap 4 (5-15); BUN 22 mg/dL (7-18); Calcium,Total 8.8 mg/dL (8.5-10.1); Chloride 109 mmol/L (98-107); EST Glomerular Filtration Rate 55 mL/min (>60); Est Glom Filt Rate - Afr Amer 67 mL/min (>60); Estimated Creatinine Clearance 53.83 ml/min; Glucose 108 mg/dL (74-106); Potassium 3.9 mmol/L (3.5-5.1); Sodium Level 140 mmol/L (136-145)
[2019-06-10 23:00] VITALS: BP 170/66; PULSE 70; RESP 16; O2SAT 97
[2019-06-11 00:22] VITALS: PULSE 85; RESP 16; O2SAT 98
== END 2019-06-11 00:23 | disposition home or self-care (01) ==
PROVIDERS: Emergency Provider Emergency Medicine; PCP Family Medicine
DX: N20.2 Calculus of kidney with calculus of ureter (principal); E03.9 Hypothyroidism, unspecified; E11.9 Type 2 diabetes mellitus without complications; E78.5 Hyperlipidemia, unspecified; I10 Essential (primary) hypertension; Z91.040 Latex allergy status; J45.909 Unspecified asthma, uncomplicated
CPT/HCPCS: 74176; 80048; 81001; 85025; 96361; 96374; 96375; 99283; J7030; A4216; J2405

== ENCOUNTER 2019-08-24 19:01 | Emergency (ER) | payer MEDICARE, MEDICAID, SELFPAY ==
[2019-08-24 19:02] VITALS: BP 151/91; PULSE 84; RESP 16; TEMP 37.1; O2SAT 96; BMI 46.3
--- NOTE | 2019-08-24 19:23 | CT_ITS ---
STUDY: CT ABDOMEN AND PELVIS WITHOUT CONTRAST REASON FOR EXAM: Female, 53 years old. RIGHT FLANK PAIN, HX KS, THYROID CA IN PAST RADIATION DOSAGE (If Supplied By Facility): CTDIvol = ( 19.06 ) mGy, DLP = ( 947.60 ) mGycm TECHNIQUE: Transaxial images were obtained from the dome of the diaphragm to the symphysis pubis without oral contrast, and without intravenous contrast. Sagittal and coronal images were reconstructed. Individualized dose optimization techniques were used for this CT. COMPARISON: 06/10/2019 FINDINGS: Progressing peripheral groundglass opacities are present in the right lower lobe. The visualized portions of the heart are within normal limits. Hepatomegaly. Normal gallbladder and extrahepatic biliary system. Normal spleen. Normal pancreas. Normal bilateral adrenal glands. 4 mm nonobstructing right renal stone. Normal left kidney. Normal visualized stomach. Normal small intestine. There are multiple colonic diverticula consistent with diverticulosis. The appendix is visualized and appears normal. Normal abdominal aorta. Normal inferior vena cava. Normal retroperitoneum. Normal urinary bladder. Pelvic clips. Retroverted uterus. Normal abdominal wall. There are diffuse degenerative changes of the visualized lumbar spine. CT/Abdomen/Pelvis without Cont IMPRESSION: No evidence of appendicitis, acute intestinal pathology, or acute obstructive uropathy. Progressing peripheral groundglass opacities are present in the right lower lobe. This could be infectious or inflammatory in nature. N.B. : The above information has been verbally conveyed by Riki Escalante MD to Esa Pan MD, on 08/24/2019 20:43:08 (ET). Electronically Signed: Riki Escalante MD at 20:45 EDT Tel , Service support ,
[2019-08-24 19:40] LABS: Mucous, Urine 0 SEEN /hpf (<or=2+)
[2019-08-24] MEDS: Ondansetron 4 MG/2 ML Vial IV (19:40)
[2019-08-24] MEDS: Morphine 4 MG/ML Syringe IV (19:40)
[2019-08-24] MEDS: 0.9% Normal Saline 1,000 ML 250 ML IV (19:40)
[2019-08-24 19:50] LABS: Color, Urine Yellow (Yellow); Glucose, Dipstick Normal (Normal); Ketone-Dipstick Negative (Negative); Leukocyte Esterase-Dipstick 25 /ul (Negative); Nitrite-Dipstick Negative (Negative); Occult Blood-Urine 150 /ul (Negative); Protein-Dipstick 30 mg/dl (Negative); Specific Gravity, Urine 1.025 (1.002-1.030); Urine Bilirubin Dipstick Negative (Negative); Urine Clarity Clear (Clear); Urine Urobilinogen Normal (Normal)
[2019-08-24 20:06] LABS: Bacteria RARE /hpf (None Seen); Red Blood Cells-Urine 0-5 SEEN /hpf (0-5); Squamous Epithelial Cells - UA 0-5 SEEN /hpf (5-10); White Blood Cells 0-5 SEEN /hpf (0-5)
--- NOTE | 2019-08-24 21:27 | ED.VISSUMM ---
- ER Visit Summary Date of Service: 08/24/19 Chief Complaint: Right flank pain History of Present Illness: The patient is a 53 F who presents with right flank pain that began today. Patient states the pain began rather suddenly this morning. Patient states the pain is sharp and cramping. Patient states her pain is worse when she takes deep breath. Patient states nothing seems to help it. Patient states she cannot find a position of comfort. Patient states she has a history of kidney stones. Patient states this feels similar to prior kidney stone. Patient denies any shortness of breath or cough. Patient denies any chest pain. Patient denies any nausea or vomiting. Physical Examination: Vital signs are normal. Patient is afebrile. Patient is in no acute distress. Oral mucosa is pink and moist. Neck is supple. Trachea is midline. There is no JVD. Heart was regular rate and rhythm. Lungs are clear and equal bilaterally. Abdomen is soft. Bowel sounds are normal. There is right CVA and flank tenderness. There is no rebound or guarding noted. Cranial nerves II through XII are intact. There are no focal motor or sensory deficits noted. Extremities are intact. There is 4+ edema of the lower extremities bilaterally. Test Results: Urinalysis does not show any evidence of urinary tract infection. CT scan of the abdomen and pelvis was obtained. There is groundglass opacity in the right lower lobe of the lung. There is no obstructive uropathy or acute intra-abdominal pathology. This was interpreted by the radiologist and reviewed by myself. Emergency Department Course and Treatment: Patient was given IV fluids, morphine, and Zofran here. Patient was feeling better on reevaluation. Patient was given a prescription for Zithromax. Patient was given her first dose here. Patient was instructed to follow-up with her primary care physician in 5 to 7 days. Patient was also given precautions for COVID-19. Patient understood and was agreeable with the plan. All questions were answered. Disposition: Discharge home Impression: Right lower lobe pneumonia This note was generated with [employer] dictation software. It may contain incorrect words, spelling, and punctuation that were not noted in review of the chart prior to signing ED Disposition - Plan for ED Patient: Disposition: Home or Assisted Living Diagnosis: Pneumonia Instructions: ED PNEUMONITIS Adult Prescriptions: Azithromycin [Zithromax] 250 mg PO DAILY #4 tab Prescription Printed Referrals: Riki Clark MD [Primary Care Provider] - 3-5 Days
[2019-08-24] MEDS: Azithromycin 250 MG Tablet 500 MG PO (21:52)
== END 2019-08-24 22:01 | disposition home or self-care (01) ==
PROVIDERS: Emergency Provider Emergency Medicine; PCP Family Medicine
DX: J18.9 Pneumonia, unspecified organism (principal); R60.0 Localized edema; E78.00 Pure hypercholesterolemia, unspecified; E11.9 Type 2 diabetes mellitus without complications; I10 Essential (primary) hypertension; K21.9 Gastro-esophageal reflux disease without esophagitis; Z85.850 Personal history of malignant neoplasm of thyroid; Z87.442 Personal history of urinary calculi
CPT/HCPCS: 74176; 81001; 96361; 96374; 96375; 99284; J7030; A4216; J2405

== ENCOUNTER 2019-09-30 17:50 | Emergency (ER) | payer MEDICARE, MEDICAID, SELFPAY ==
[2019-09-30 17:50] VITALS: BP 152/106; PULSE 82; RESP 18; TEMP 35.9; O2SAT 96
[2019-09-30 17:51] VITALS: BP 152/106; PULSE 86; RESP 18; TEMP 35.9; O2SAT 95; BMI 44.7
[2019-09-30 18:08] LABS: Bacteria 0 SEEN /hpf (None Seen); Mucous, Urine 0 SEEN /hpf (<or=2+); Squamous Epithelial Cells - UA 0 SEEN /hpf (5-10)
[2019-09-30 18:16] LABS: Color, Urine Yellow (Yellow); Glucose, Dipstick Normal (Normal); Ketone-Dipstick Negative (Negative); Leukocyte Esterase-Dipstick 25 /ul (Negative); Nitrite-Dipstick Negative (Negative); Occult Blood-Urine 50 /ul (Negative); Protein-Dipstick 30 mg/dl (Negative); Urine Bilirubin Dipstick Negative (Negative); Urine Clarity Clear (Clear); Urine Urobilinogen Normal (Normal); Urine pH 6.5 (5.0 - 8.0)
[2019-09-30 18:23] LABS: Red Blood Cells-Urine 0-5 SEEN /hpf (0-5); White Blood Cells 0-5 SEEN /hpf (0-5)
--- NOTE | 2019-09-30 19:08 | US_ITS ---
STUDY: ABDOMINAL ULTRASOUND - RIGHT UPPER QUADRANT REASON FOR VISIT: Female, 53 years old. Abdominal pain TECHNIQUE: Ultrasound evaluation of the right upper quadrant was performed with real-time and static barrera-scale imaging. TECHNICAL QUALITY: Adequate. COMPARISON: CT dated 08/24/2019 FINDINGS: Liver: The liver measures 21.8 cm. There is normal echogenicity of the liver. The bile ducts are within normal limits. There is hepatic color flow. The direction of portal flow is hepatopetal. There is no demonstrated mass lesion. Gallbladder: Normal distended gallbladder. The gallbladder wall measures 3 mm. There is a negative sonographic Pierce''s sign. There is no pericholecystic fluid. There are no gallstones. Common Bile Duct (C.B.D.): The common bile duct measures 5 mm. Pancreas: The pancreas is not well-visualized due to bowel gas. The visualized pancreas is grossly unremarkable. Right Kidney: Normal size of the right kidney. The right kidney measures 12.5 cm. Normal renal cortex. There is no demonstrated renal mass or cyst. There is mild right hydronephrosis. US/Gallbladder IMPRESSION: Mild right hydronephrosis. If indicated, further evaluation with CT can be performed. Hepatomegaly. Normal gallbladder. Electronically Signed: Rolly Egan, at 20:35 EDT Tel , Service support ,
--- NOTE | 2019-09-30 19:08 | CT_ITS ---
STUDY: CT ABDOMEN AND PELVIS WITHOUT CONTRAST REASON FOR EXAM: Female, 53 years old. Right flank pain. RADIATION DOSAGE (If Supplied By Facility): CTDIvol = ( 18.09 ) mGy, DLP = ( 863.14 ) mGycm TECHNIQUE: Transaxial images were obtained from the dome of the diaphragm to the symphysis pubis without oral contrast, and without intravenous contrast. Sagittal and coronal images were reconstructed. Individualized dose optimization techniques were used for this CT. COMPARISON: 08/24/2019 FINDINGS: Evaluation of the abdominal viscera is limited in the absence of intravenous contrast. There is atelectasis at the lung bases. The visualized portions of the heart and pericardium are within normal limits. There are no calcified gallstones present. The liver is enlarged, but stable. The spleen is normal in size. The pancreas demonstrates an unremarkable unenhanced appearance. The adrenal glands are within normal limits. There are nonobstructing stones in the collecting system of the right kidney, measuring up to 4 mm. There is a 3 mm stone at the right ureterovesicular junction with moderate right hydroureteronephrosis. There are no less renal or ureteral stones. There is no left hydronephrosis. Normal visualized stomach. There is no bowel obstruction or inflammation. The appendix is not visualized, but there are no findings to suggest acute appendicitis. The aorta is normal in caliber. There is no abdominal or pelvic free air, free fluid, fluid collection or lymphadenopathy. There are no destructive osseous lesions. CT/Abdomen/Pelvis without Cont IMPRESSION: 3 mm stone at the right ureterovesicular junction with moderate right hydroureteronephrosis. Electronically Signed: Rolly Egan, at 20:48 EDT Tel , Service support ,
--- NOTE | 2019-09-30 19:14 | ED.DCSUM_ITS ---
- ER Visit Summary Date of Service: 09/30/19 Chief Complaint: Abdominal pain History of Present Illness: The patient is a 53 F presenting with 5 days of right-sided abdominal pain. Patient states she had an ultrasound this week which showed kidney stones in her bladder. She then followed up with Dr. Singer who recommended that she had her gallbladder removed. She is scheduled for another opinion with Dr. Ferguson. She complains of right-sided abdominal pain, nausea, vomiting. She denies fever. Denies other complaints. Physical Examination: Vitals are stable. Patient is afebrile. Alert no acute distress. HEENT exam is unremarkable. Neck is supple. Lungs are clear and equal bilaterally. Heart is regular rate and rhythm. Abdomen is soft right upper quadrant tenderness, no guarding or rebound Back: Right CVA tenderness Extremities are unremarkable. Skin is warm and dry. Remainder of exam is unremarkable. Emergency Department Course and Treatment: Patient was given IV fluids, morphine, Zofran. Urinalysis shows 0-5 white blood cells, 0-5 red blood cells. CBC unremarkable other than hemoglobin 11.9. Chemistries show glucose 117, BUN 19. Liver lipase are normal. Ultrasound gallbladder shows mild right hydrone phrosis. If indicated, further evaluation with CT can be performed. Hepatomegaly. Normal gallbladder. CT abdomen pelvis shows 3 mm stone at the right ureterovesicular junction with moderate right hydroureteronephrosis. On reevaluation, she is resting comfortably. She was given prescription for Percocet and Zofran. Advised to follow-up with urology. Advised return to ED for worsening complaints. Disposition: Discharge home Impression: Urolithiasis This note was generated with [employer] dictation software. It may contain incorrect words, spelling, and punctuation that were not noted in review of the chart prior to signing ED Disposition - Plan for ED Patient: Instructions: ED Renal Stone w Colic Prescriptions: Oxycodone HCl/Acetaminophen [Percocet 5/325] 1 tab PO Q6H PRN PRN 3 Days #12 tab PRN Reason: Pain Prescription Printed Ondansetron [Zofran Odt] 4 mg PO Q8H PRN PRN #10 tab PRN Reason: Nausea Prescription Printed Referrals: Chi Mackey MD [STAFF PHYSICIAN] - Riki Clark MD [Primary Care Provider] -
[2019-09-30] MEDS: Ondansetron 4 MG/2 ML Vial IV (19:32)
[2019-09-30] MEDS: Morphine 4 MG/ML Syringe IV ×2 (19:33→21:12)
[2019-09-30 19:49] LABS: Absolute Lymphocyte Count 1.35 X10^3/uL (0.83-4.51); Absolute Neutrophil Count 6.7 X10^3/uL (2.0-7.7); Basophil# 0.05 X10^3/uL; Basophil% 0.6 % (0-1); Eosinophil# 0.18 X10^3/uL; Hematocrit 37.9 % (37-47); Hemoglobin 11.9 g/dL (12.0-15.0); Lymphocyte # 1.35 X10^3/ul (4.0); Lymphocyte % 15.1 % (19-41); Mean Corp Hgb Conc 31.4 g/dL (32-36); Mean Corpuscular Hgb 26.2 pg (27.0-32.0); Mean Corpuscular Volume 83.3 fL (81-99); Mean Platelet Vol. 9.1 fl (6.2-12.0); Monocyte# 0.69 X10^3/uL; Monocyte% 7.7 % (0-10); NRBC Flagged by Analyzer 0 % (0-5); Neutrophil # 6.66 X10^3/uL (2.7-7.7); Neutrophil % 74.3 % (47-70); Platelet Count 287 K/mm3 (150-450); RBC Distribution Width CV 19.1 % (11.6-14.6); RBC Distribution Width SD 57.7 fl (35.1-43.9); Red Blood Count 4.55 M/mm3 (4.2-5.4)
[2019-09-30 20:12] LABS: ALB/GLOB Ratio 0.7 RATIO (0.9-2.4); AST(SGOT) 28 U/L (15-37); Alanine Aminotransfer ALT/SGPT 25 U/L (13-56); Albumin, Serum 3.7 g/dL (3.2-5.0); Alkaline Phosphatase 92 U/L (45-117); Anion Gap 6 (5-15); BUN 19 mg/dL (7-18); BUN/Creat Ratio 20.4 RATIO (10-20); Calcium,Total 9.3 mg/dL (8.5-10.1); Chloride 108 mmol/L (98-107); Creatinine, Serum 0.93 mg/dL (0.55-1.02); EST Glomerular Filtration Rate 67 mL/min (>60); Est Glom Filt Rate - Afr Amer 81 mL/min (>60); Estimated Creatinine Clearance 63.67 ml/min; Globulin 5.4 g/dL (2.2-4.2); Glucose 117 mg/dL (74-106); Lipase 139 U/L (73-393); Protein, Total 9.1 g/dL (6.4-8.2); Sodium Level 140 mmol/L (136-145)
[2019-09-30 20:59] VITALS: BP 188/64; PULSE 86; RESP 18; TEMP 36.3; O2SAT 94
[2019-09-30 21:00] VITALS: BP 147/68; PULSE 89; RESP 18; TEMP 36.1; O2SAT 92
--- NOTE | 2019-09-30 21:32 | ED.DEP ---
ED Disposition - Plan for ED Patient: Instructions: ED Renal Stone w Colic Prescriptions: Oxycodone HCl/Acetaminophen [Percocet 5/325] 1 tablet PO Q6H PRN PRN 3 Days #12 tablet PRN Reason: Pain Ondansetron [Zofran Odt] 4 mg PO Q8H PRN PRN #10 tab PRN Reason: Nausea Prescription Printed Referrals: Riki Clark MD [Primary Care Provider] - Chi Mackey MD [STAFF PHYSICIAN] -
[2019-09-30 22:25] VITALS: BP 147/68; PULSE 89; RESP 18; TEMP 36.1; O2SAT 92
== END 2019-09-30 22:26 | disposition home or self-care (01) ==
LOC: ED 18:31
PROVIDERS: Emergency Provider Emergency Medicine; PCP Family Medicine
DX: N13.2 Hydronephrosis with renal and ureteral calculous obstruction (principal); R16.0 Hepatomegaly, not elsewhere classified; Z87.442 Personal history of urinary calculi
CPT/HCPCS: 74176; 76705; 80053; 81001; 83690; 85025; 96374; 96375; 96376; 99283; A4216; J2405

== ENCOUNTER → 2019-10-11 14:03 | Outpatient (CLI) | payer MEDICARE, MEDICAID, SELFPAY ==
[2019-10-05 13:46] VITALS: BMI 44.7
--- NOTE | 2019-10-11 14:07 | RAD_ITS ---
STUDY: X-RAY - ABDOMEN/PELVIS REASON FOR EXAM: Female, 53 years old. Calculus of kidney -- hydronephrosis TECHNIQUE: Two AP supine views of the abdomen and pelvis. COMPARISON: CT abdomen and pelvis without contrast September 30, 2019. FINDINGS: Non-visualized lung bases. There is an unremarkable bowel gas pattern. There is no demonstrated free abdominal air. Small, faint stone at the lower pole of the right renal shadow is faintly visualized on the image covering the upper abdomen. The distal right ureteral stone seen on prior CT is not evident here. The visualized liver and spleen are grossly normal in size and morphology. Clips related to prior bilateral tubal ligation again seen in the pelvic soft tissues. There are also atherosclerotic calcifications in segmental branches of the internal iliac arteries. There are stable degenerative changes of the lumbar spine and lower aspect of the bilateral sacroiliac joints. Degenerative periarticular soft tissue calcification near the superolateral margin of the left acetabulum is also unchanged. RAD/Abdomen Single View IMPRESSION: 1. Nonspecific bowel gas pattern. 2. Faint calcification/stone again overlaps the lower pole of the right renal shadow. The distal right ureteral stone noted by CT is not evident here. 3. Prior bilateral tubal ligation. 4. Degenerative changes of the spine and pelvis again noted. Electronically Signed: Sim Coker MD at 19:28 EDT , Service support ,
== END ==
PROVIDERS: PCP Family Medicine; Referring Provider Urology; Visit Provider Urology
DX: N13.2 Hydronephrosis with renal and ureteral calculous obstruction (principal)
CPT/HCPCS: 74018

== ENCOUNTER → 2019-10-14 13:26 | Outpatient (CLI) | payer MEDICARE, MEDICAID, SELFPAY ==
[2019-10-05 13:46] VITALS: BMI 44.7
--- NOTE | 2019-10-14 13:32 | US_ITS ---
STUDY: RENAL ULTRASOUND - COMPLETE REASON FOR EXAM: Female, 53 years old. HYDRONEPHROSIS -- HX OF STONES -- F/U CT 09/30/19 TECHNIQUE: Ultrasound evaluation of the kidneys was performed with real-time and static merchant-scale imaging. COMPARISON: Comparison made with prior examination dated September 30, 2019. FINDINGS: RIGHT KIDNEY: Normal location of the right kidney, which is normal in size. The right kidney measures 11.3 cm x 6.3 cm x 4.7 cm. There is a normal cortex of the right kidney. The renal cortex measures 2.0 cm. There is no right renal mass or cyst. There are 2, 4 mm right intrarenal nonobstructive calculi. There is no right hydronephrosis. DISTAL RIGHT URETER: There is non-visualization of the distal right ureter. There is no demonstrated right ureterovesical junction calculus. There is a visualized right ureteral jet. LEFT KIDNEY: Normal location of the left kidney, which is normal in size. The left kidney measures 11.2 size by 6.4 size by 5.4 cm. There is a normal cortex of the left kidney. The renal cortex measures 2.0 cm. There is no left renal mass or cyst. There are no left renal calculi. There is no left hydronephrosis. DISTAL LEFT URETER: There is non-visualization of the distal left ureter. There is no demonstrated left ureterovesical junction calculus. There is a visualized left ureteral jet. BLADDER: The distended urinary bladder has a volume of 39 ml. There is a normal wall thickness of the distended urinary bladder. There is no demonstrated mass within the urinary bladder. There are no demonstrated bladder calculi. US/Kidney and Bladder IMPRESSION: Nonobstructive right intrarenal calculi. There is no evidence of hydronephrosis at this time. Electronically Signed: David Burns, at 15:21 EDT , Service support ,
== END ==
PROVIDERS: PCP Family Medicine; Referring Provider Urology; Visit Provider Urology
DX: N13.2 Hydronephrosis with renal and ureteral calculous obstruction (principal)
CPT/HCPCS: 76770

== ENCOUNTER 2019-11-15 11:02 | Day surgery (SDC) | payer MEDICARE, MEDICAID, SELFPAY ==
[2019-10-05 13:46] VITALS: BMI 44.7
[2019-11-10 17:42] LABS: Prothrombin Time (Protime)PT. 12.6 SECONDS (11.7-14.9)
[2019-11-10 18:21] LABS: Thyroid Stim Hormone (TSH) 3.93 uIU/mL (0.358-3.74)
[2019-11-10 19:04] LABS: Hemoglobin A1c 6.2 % (3.8-5.6)
[2019-11-15] VITALS (8 sets, daily range): BP systolic 152–178; BP diastolic 75–91; PULSE 63–86; RESP 12–18; TEMP 36.6–36.9; O2SAT 95–100; BMI 45.0
--- NOTE | 2019-11-15 | GALL_PTH ---
PATIENT: JESUS ZEPEDA LOC: [facility] [place] U#:[id number] AGE/SX: 53/F ROOM: RE11/15/[address]: Dr. Baljeet Ferguson MD : 1965 BED: DIS: 11/15/2019 SPEC #: [id number] RECD: 11/15/19 14:58 STATUS: PATRICIA VILLASummer #: [id number] STACY: 11/15/19 00:[address]: Baljeet Ferguson DEPT: SURGICAL PATHOLOGY RECD BY: Jason Luis ENTERED: 11/16/19 08:13 SP TYPE: GONZALO REYES DR: Dr. Riki Clark MD Tissues: Gallbladder, NOS Procedures: Surgery Specimen Level III HEADER OPERATION: Laparoscopic cholecystectomy PRE-OP DIAGNOSIS: Calculus of gallbladder with acute on chronic cholecystitis; epigastric abdominal pain TISSUE SUBMITTED: Gallbladder MICROSCOPIC DIAGNOSIS Gallbladder, cholecystectomy: Chronic cholecystitis and cholelithiasis. A benign pericystic lymph node with reactive changes. SJ:andreia 11/17/19 MICROSCOPIC DESCRIPTION Slides are reviewed. GROSS DESCRIPTION Received is one container labeled with the patient's name and designated gallbladder. The specimen consists of a gallbladder measuring 11.5 cm in length and up to 4 cm in diameter. The external surface is pink-martinez, smooth and glistening for the most part. Focally it is granular, hemorrhagic and contains cautery artifact. The gallbladder contains green-yellow mucoid bile and multiple black irregular stones measuring in aggregate 1 x 0.6 x 0.2 cm and 0.1 to 0.5 cm in greatest dimension. Some of the stones are also present in the cystic duct. The mucosa is bile-stained and without any mass lesions. The gallbladder wall measures up to 0.2 cm in thickness. Central Service Tech sections from the gallbladder and the cystic duct are submitted in one cassette. / BOBBI:andreia 11/16/19 TC:3 CPT: 53174
--- NOTE | 2019-11-15 11:06 | EKG12_ITS ---
Test Reason : PREOP Blood Pressure : / mmHG Vent. 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
[2019-11-15 11:56] LABS: Bedside Glucose 107 mg/dL (70-110)
[2019-11-15] MEDS: Lactated Ringers 1,000 ML 100 ML IV ×2 (11:59→15:17)
[2019-11-15] MEDS: Enoxaparin 30 MG/0.3 ML Syringe SC (12:46)
--- NOTE | 2019-11-15 13:11 | HP.PCM_ITS ---
History and Physical Date of Admission: 11/15/19 [facility] [address] [place] [id number] MR#: [id number] Acct: [id number] Name: JESUS ZEPEDA Rep #: [id number] : 1965 Provider: Dr. Mj Ferguson MD Age/Sex: 53/F Location: [facility] Status: Signed Intake Intake Visit Reasons: Gall Stones Ultrasound 09/26 [facility] Chief Complaint: postop thyroidectomy Allergies latex Allergy (Verified 09/30/19 20:53) Rash lisinopril Adverse Reaction (Verified 09/30/19 20:53) Other Medications Amlodipine Besylate 5 mg PO DAILY 04/06/13 [History Confirmed 10/05/19] Aspirin [Ecotrin] 81 mg PO DAILY 04/06/13 [History Confirmed 10/05/19] Insulin Detemir [Levemir FlexPen] 74 units SUBCUT QHS 04/06/13 [History Confirmed 10/05/19] Levothyroxine [Synthroid] 150 mcg PO DAILY 04/06/13 [History Confirmed 10/05/19] Losartan Potassium 100 mg PO DAILY 04/06/13 [History Confirmed 10/05/19] Saxagliptin HCl/Metformin HCl [Kombiglyze Xr 2.5-1,000 mg Tab] 2 tab PO DAILY 04/06/13 [History Confirmed 10/05/19] Atorvastatin Calcium [Lipitor] 40 mg PO QHS 05/23/17 [History Confirmed 10/05/19] Insulin Lispro [Humalog Kwikpen] 16 unit SUBCUT DAILY 05/23/17 [History Confirmed 10/05/19] Omeprazole [Prilosec] 20 mg PO DAILY 05/23/17 [History Confirmed 10/05/19] Insulin Lispro [Humalog] 18 unit SQ 1200,1800 11/29/18 [History Confirmed 10/05/19] Ketorolac [Toradol] 10 mg PO Q6H #10 tab 06/10/19 [Rx Confirmed 10/05/19] Tamsulosin HCl [Flomax] 0.4 mg PO DAILY #7 cap 06/10/19 [Rx Confirmed 10/05/19] Ondansetron [Zofran Odt] 4 mg PO Q8H PRN PRN #10 tab 09/30/19 [Rx Confirmed 10/05/19] PFSH Medical History Migraines (Chronic) Asthma (Chronic) HTN (hypertension) (Chronic) Hyperlipidemia (Chronic) Type 2 diabetes mellitus (Chronic) Hypothyroid (Chronic) Surgical History S/P partial thyroidectomy (Acute) Family History Aunt Breast cancer Father Diabetes Hypertension Heart disease Myocardial infarction Mother Diabetes Hypertension Social History (Updated 10/05/19 @ 15:[address] Baljeet Ferguson MD) Smoking Status: Never smoker HPI HPI HPI: JESUS ZEPEDA, is a 53 F who presents to the office today for Evaluation of symptomatic cholelithiasis. Patient was seen by her primary care physician on 09/20/2019. She has had a several month course of increasing epigastric pain worse with eating positive nausea no diarrhea or melena or hematochezia. She has been on omeprazole for a long time a gallbladder ultrasound was ordered from the [facility] which showed a 1.7 x 0.9 stone within the gallbladder no gallbladder wall thickening and there was no pericholecystic fluid. And there was also no hydronephrosis noted. Her pain worsened to the point where she needed to go to see the emergency room physician who ordered a CAT scan of the abdomen and pelvis and a gallbladder ultrasound. This did not show cholelithiasis and did show right hydronephrosis with a 3 mm kidney stone at the UP junction. Patient states that she is still nauseated with smelling of food she still has food aversion and she still has pain when she eats. ROS General General: Yes weight change; no appetite, fatigue, colon cancer, breast cancer or weakness HEENT HEENT: No difficulty swallowing, eye injury, eye surgery, swollen glands or hoarseness Endo Endocrine: Yes thyroid disease and diabetes mellitus; no thyroid cancer, Hair loss, heat intolerance or cold intolerance Musc Musculoskeletal: No back problems, arthritis, rheumatoid arthritis, gout or joint pain Cardio Cardiovascular: No murmur, pacemaker, heart disease, atrial fibrillation, high blood pressure, heart attack, heart stent, palpitations, shortness of breat with exertion or chest pain Psych Psychiatric: No depression, anxiety or hearing voices Resp Respiratory: No shortness of breath, No sleep apnea, No cough, No COPD, No asthma, No emphysema, No wheezing Gastro Gastrointestinal: No abdominal pain, No nausea or vomiting, No diarrhea, No constipation, No blood in stool, No acid reflux, No hemorrhoids, No ulcers, No gallbladder problem, No black,tarry stools Hossein Hematologic: No blood thinners, No blood disorders, No bleeding, No anemia, No blood clots Neuro Neurologic: No weakness Exam Const General: no acute distress, well developed, well hydrated Orientation: oriented to person, oriented to place, oriented to time [facility] Head: normocephalic, atraumatic Ears: external ears normal Mouth: moist mucous membranes Eyes Sclera: sclerae normal Pupils: normal by confrontation Neck Neck: no lymphadenopathy noted Neck mass: No Thyroid: thyroid normal, symmetrical Chest Chest palpation & inspection: normal inspection of the chest Resp Effort & Inspection: normal respiratory effort Auscultation: clear to auscultation bilaterally Percussion: percussion normal Cardio Rate: regular rate Rhythm: regular rhythm Heart Sounds: no murmurs GI Palpation: soft, no hepatosplenomegaly, no masses, tender Auscultation: normal bowel sounds Rectal Exam: other Other: Rectal exam deferred. Extrem General: normal to inspection, no clubbing, cyanosis or edema Assessment & Plan Problems 1. Calculus of gallbladder with acute on chronic cholecystitis without obstruction K80.12 2. Epigastric abdominal pain R10.13 3. Hydronephrosis with ureteropelvic junction (UPJ) obstruction Q62.11 Plan Reviewed the anatomy with the patient and discussed the procedure: laparoscopic cholecystectomy with possible cholangiograms, possible open. Review risks including but not limited to bleeding, infection, hernia, bile leak, retained gallstones requiring another procedure ERCP- Endoscopic Retrograde Cholangiopancreatography, injury to another organ (bile ducts, common bile duct, small bowel, etc.) and conversion to an open procedure. All questions were answered. Prior to her undergoing any surgery I believe it is important for her to be evaluated by urology we are going to get this set up because I have a feeling that she is probably going to have to have a stent placed prior to having her gallbladder removed. In addition a [place] to try to get films from the ultrasounds that were done at the [facility] so I can see the stones from myself. She certainly has symptoms of biliary colic even though the imaging does not show this that was repeated at [facility]. Orders Referrals: Urology N13.30 Coding Level of Care Code Off vis,est,level 4 Diagnoses Calculus of gallbladder with acute on chronic cholecystitis without obstruction K80.12 ??Cholelithiasis location: gallbladder ??Cholecystitis acuity: acute and chronic Epigastric abdominal pain R10.13 Hydronephrosis with ureteropelvic junction (UPJ) obstruction Q62.11 ??Hydronephrosis type: with ureteropelvic junction obstruction (if applicable) CC: NORIS Latif; Dr. Eli Hernández MD; Dr. Riki Clark MD ~ I have re-examined the patient. There are no clinical changes since date of exam.
--- NOTE | 2019-11-15 13:13 | PCM.OPRPT ---
Problem List (1) Cholelithiasis Status: Acute Qualifiers: Cholelithiasis location: gallbladder Cholecystitis presence: with cholecystitis Cholecystitis acuity: chronic Biliary obstruction: without biliary obstruction Qualified Code(s): K80.10 - Calculus of gallbladder with chronic cholecystitis without obstruction (2) Epigastric pain Status: Acute Report of Operation Date of Procedure: 11/15/19 Pre-Operative Diagnosis: Symptomatic cholelithiasis. Epigastric abdominal pain Post-Operative Diagnosis: Same Surgery/Procedure Performed:: Laparoscopic cholecystectomy Type of Anesthesia:: General Anesthesiologist: Edmund Rosales Specimen's removed: Gallbladder Estimated Blood Loss (mL): < 25 cc Fluids Replaced: 1100 CC LR Description of Procedure: Patient was brought into the operating room. Placed in the supine position. Under excellent general tracheal ovation the abdomen was sterilely prepped draped in usual fashion. Local was injected infraumbilically. Dissection was carried down to the fascia. The fascia grasped with a Michele. Varies needle was placed inside the abdomen. The abdomen was insufflated 15 torr. A 10/12 trocar was placed without difficulty. Patient is placed in the head up and rotated to the left position. Subxiphoid #5 trocar was placed, inferior to this another #5 trocar was placed, laterally a #5 trocar was placed. All these under direct visualization without injury to underlying structures. Fundus of the gallbladder was grasped retracted cephalad direction. Infundibulum was grasped retracted laterally. I dissected out the cystic duct. I placed hemoclips proximally distally and ligated the duct. Identified the cystic artery. I placed hemoclips proximally distally and ligated the artery. Once this was done deliver the gallbladder from the gallbladder bed with use of electrocautery I actually did a dome down approach because it was easier for me to do this. I placed a specimen specimen bag delivered through the umbilical port without difficulty. I had good hemostasis on the liver bed. I did place some Ector in the liver bed since I did give her subcu Lovenox prior to the procedure. Trochars were removed. Fascia the umbilical port was closed with a [id number] stitch of 0 Vicryl. Skin incisions were closed with subcuticular stitches of 4-0 Monocryl. Steri-Strips were applied sterile dressings were applied and the patient tolerated the procedure well. - Admit VTE Documentation VTE Present on Admission: No VTE Mechan Device Prophylaxis: None VTE Pharm Prophylaxis ordered?: Yes Reason prophylaxis not ordered:: Treatment Not Indicated [id number]: [id number] Laparoscopic cholecystectomy
--- NOTE | 2019-11-15 13:49 | DCINST_ITS ---
Discharge Diet: Light diet - advance as tolerated Discharge Activity: May Not Drive - for 2-3 days or while taking narcotic pain medications., - - Do not drive, work heavy equipment or sign legal documents for 24 hours. May shower in (days): 1 - with the bandage in place. Additional Activity Instructions:: Pain medication may cause nausea. You should typically eat light foods as you take your pain medications. Pain medication may also cause constipation. If this is a problem for you, please discuss with your doctor. Call your doctor if your incision/area has: Continuous Slow Oozing, Sudden Increased Bleeding, Increased Pain/ Swelling, Increased Redness, Foul Smelling Discharge Call your doctor if you observe: Fever of 101 or Higher Suture Line Care: Avoid Pulling/Pushing, Avoid Pinching/Bending Additional Dressing/Incision Instructions:: Leave operative bandaids on for 2 days. When you remove dressing, leave Steri-Strips on until your follow-up appointment, or until the Steri-Strips fall off on their own. Allergies/Adverse Reactions: Allergies latex Allergy (Verified 11/15/19 11:40) Rash lisinopril Adverse Reaction (Verified 11/15/19 11:40) Other COUGH Medications to take at Discharge Amlodipine Besylate 5 mg PO DAILY 04/06/13 Aspirin [Ecotrin] 81 mg PO DAILY 04/06/13 Insulin Detemir [Levemir FlexPen] 74 units SUBCUT QHS 04/06/13 Levothyroxine [Synthroid] 150 mcg PO DAILY 04/06/13 Losartan Potassium 100 mg PO DAILY 04/06/13 Saxagliptin HCl/Metformin HCl [Kombiglyze Xr 2.5-1,000 mg Tab] 2 tab PO DAILY 04/06/13 Atorvastatin Calcium [Lipitor] 40 mg PO QHS 05/23/17 Insulin Lispro [Humalog Kwikpen] 16 unit SUBCUT DAILY 05/23/17 Omeprazole [Prilosec] 20 mg PO DAILY 05/23/17 Insulin Lispro [Humalog] 18 unit SQ 1200,1800 11/29/18 Ferrous Sulfate, Dried [Iron] 160 mg PO DAILY 11/08/19 Oxycodone HCl/Acetaminophen [Percocet 5/325] 1 - 2 tablet PO Q4H PRN PRN 6 Days #30 tablet 11/15/19 The following prescriptions were given: Oxycodone HCl/Acetaminophen [Percocet 5/325] 1 - 2 tablet PO Q4H PRN PRN 6 Days #30 tablet PRN Reason: Pain Transmission Status: Received by [facility] Orders to be completed after discharge: CORONAVIRUS 19, CARLTON SCREEN Time Frame: 11/10/19, Facility: [facility], Location: Laboratory Primary Care Physician: Riki Clark MD [Primary Care Provider] - Test Results: Test results from this visit will be discussed in further detail at your follow- up appointment, if applicable. Please Follow Up With: Baljeet Ferguson MD - Please call [phone] to schedule an appointment. When: 7 days after your surgery.
[2019-11-15] MEDS: Bupivacaine Mpf 0.5% 30 ML VIAL (13:58)
[2019-11-15 14:30] LABS: Bedside Glucose 124 mg/dL (70-110)
== END 2019-11-15 16:33 | disposition home or self-care (01) ==
LOC: SDC 11:04 → AC 11:06
PROVIDERS: Anesthesiology; PCP Family Medicine; Referring Provider Surgery; Visit Provider Surgery
PROC: (CPT 47562; principal; 2019-11-15 12:50)
DX: K80.10 Calculus of gallbladder with chronic cholecystitis without obstruction (principal); J45.909 Unspecified asthma, uncomplicated; I10 Essential (primary) hypertension; E78.5 Hyperlipidemia, unspecified; E11.9 Type 2 diabetes mellitus without complications; E03.9 Hypothyroidism, unspecified; Z79.1 Long term (current) use of non-steroidal anti-inflammatories (NSAID); Z79.4 Long term (current) use of insulin; Z79.82 Long term (current) use of aspirin; Z91.040 Latex allergy status; R10.13 Epigastric pain; Q62.11 Congenital occlusion of ureteropelvic junction
CPT/HCPCS: 00790; 47562; 36415; 82962; 83036; 84443; 85610; 85730; 87635; 88304; 93005; G2023; J7120; J2405; U0003

== ENCOUNTER 2020-03-07 07:41 | Day surgery (SDC) | payer MEDICARE, MEDICAID, SELFPAY ==
[2020-02-06 13:59] VITALS: BMI 45.0
[2020-03-07] VITALS (7 sets, daily range): BP systolic 133–185; BP diastolic 58–80; PULSE 72–76; RESP 16–18; TEMP 36.5–37.1; O2SAT 95–97; BMI 45.2
--- NOTE | 2020-03-07 | COLBX_PTH ---
PATIENT: JESUS ZEPEDA LOC: EN U#:[id number] AGE/SX: 54/F ROOM: RE03/07/[address]: Dr. Baljeet Ferguson MD : 1965 BED: DIS: 03/07/2020 SPEC #: [id number] RECD: 03/07/20 12:25 STATUS: PATRICIA HARPREET #: [id number] STACY: 03/07/20 00:[address]: Baljeet Ferguson DEPT: SURGICAL PATHOLOGY RECD BY: Jason Luis ENTERED: 03/07/20 12:26 SP TYPE: COLON BX OTHR DR: Dr. Riki Clark MD Tissues: A - Small intestine mucous membrane B - Gastrointestinal mucous membrane, NOS Procedures: Surgery Specimen Level IV HEADER OPERATION: EGD ([facility] [place]) PRE-OP DIAGNOSIS: Abdominal pain TISSUE SUBMITTED: A - Small bowel biopsy, B - Antral biopsy for H. pylori and pathology MICROSCOPIC DIAGNOSIS A. Small bowel biopsy: A fragment of small intestinal mucosa, no pathologic diagnosis. B. Antral biopsy: Moderate gastritis. See microscopic description and comment. BOBBI:andreia 03/08/20 COMMENT B. The results of immunohistochemistry for Helicobacter pylori will be reported separately ([id number]). MICROSCOPIC DESCRIPTION Slides are reviewed. B. The specimen shows fragments of gastric mucosa with chronic inflammatory cell infiltrates in the lamina propria consisting of lymphocytes and plasma cells, consistent with moderate chronic gastritis. GROSS DESCRIPTION A - Received in fixative is one container labeled with the patient's name and designated small bowel biopsy. The specimen consists of one irregular fragment of light martinez soft tissue that measures 0.9 x 0.2 x 0.1 cm. The specimen is totally submitted in one cassette. B - Received in fixative is one container labeled with the patient's name and designated antral biopsy. The specimen consists of one irregular fragment of light martinez soft tissue that measures 0.5 x 0.4 x 0.1 cm. The specimen is totally submitted in one cassette. / BOBBI:andreia 03/07/20 TC:3 CPT: 43631 x2
--- NOTE | 2020-03-07 08:00 | HP_ITS ---
Intake Vital Signs 02/06/20 BMI 45.0 02/06/20 Height 5 ft 5 in 02/06/20 Weight: 270 lb 02/06/20 BMI 44.9 02/06/20 BP 145/77 H 02/06/20 Blood Pressure Location Rt brachial 02/06/20 Position Sitting 02/06/20 Respiration 20 H 02/06/20 Pulse 80 02/06/20 Pulse Source Monitor 02/06/20 Temp 97.6 F L 02/06/20 Temp Source Temporal 02/06/20 Pulse Oximetry (%) 93 02/06/20 Oxygen Delivery Method room air Intake Visit Reasons: Abdominal Pain Chief Complaint: Abdominal pain/nausea Security Installation Technician Required: No Is patient in pain?: Yes Allergies latex Allergy (Verified 02/06/20 13:57) Rash lisinopril Adverse Reaction (Verified 02/06/20 13:57) Other Medications Amlodipine Besylate 5 mg PO DAILY 04/06/13 [History Confirmed 02/06/20] Aspirin [Ecotrin] 81 mg PO DAILY 04/06/13 [History Confirmed 02/06/20] Insulin Detemir [Levemir FlexPen] 74 units SUBCUT QHS 04/06/13 [History Confirmed 02/06/20] Levothyroxine [Synthroid] 150 mcg PO DAILY 04/06/13 [History Confirmed 02/06/20] Losartan Potassium 100 mg PO DAILY 04/06/13 [History Confirmed 02/06/20] Saxagliptin HCl/Metformin HCl [Kombiglyze Xr 2.5-1,000 mg Tab] 2 tab PO DAILY 04/06/13 [History Confirmed 02/06/20] Atorvastatin Calcium [Lipitor] 40 mg PO QHS 05/23/17 [History Confirmed 02/06/20] Insulin Lispro [Humalog Kwikpen] 16 unit SUBCUT DAILY 05/23/17 [History Confirmed 02/06/20] Omeprazole [Prilosec] 20 mg PO DAILY 05/23/17 [History Confirmed 02/06/20] Insulin Lispro [Humalog] 18 unit SQ 1200,1800 11/29/18 [History Confirmed 02/06/20] Ferrous Sulfate, Dried [Iron] 160 mg PO DAILY 11/08/19 [History Confirmed 02/06/20] [facility] Medical History Migraines (Chronic) Asthma (Chronic) HTN (hypertension) (Chronic) Hyperlipidemia (Chronic) Type 2 diabetes mellitus (Chronic) Hypothyroid (Chronic) Abdominal pain (Acute) Nausea (Acute) Surgical History History of laparoscopic cholecystectomy (Acute ~11/15/19) S/P partial thyroidectomy (Acute) Family History Aunt Breast cancer Father Diabetes Hypertension Heart disease Myocardial infarction Mother Diabetes Hypertension Social History (Updated 02/06/20 @ 14:[address] Baljeet Ferguson MD) Smoking Status: Never smoker HPI HPI Surgical H&P: Yes HPI: JESUS ZEPEDA, is a 54 F who presents to the office today for Evaluation of right upper quadrant abdominal pain. Patient is status post a laparoscopic cholecystectomy on 11/15/2019. Pathology report came back as chronic cholecystitis with cholelithiasis. She initially was tolerating a diet was not complaining too much of abdominal discomfort. Over the last several weeks she is noticed recurrent right upper quadrant abdominal pain food will make it worse she has had off and on diarrhea at times with also normal bowel movements at time. She is also experiencing some nausea. She points to the right upper quadrant where this discomfort is located. And it is very similar to what she originally experienced prior to surgery. Exam Const General: no acute distress, well developed, well hydrated Orientation: oriented to person, oriented to place, oriented to time [facility] Head: normocephalic, atraumatic Ears: external ears normal Mouth: moist mucous membranes Eyes Sclera: sclerae normal Pupils: normal by confrontation Neck Neck: no lymphadenopathy noted Neck mass: No Thyroid: thyroid normal, symmetrical Chest Chest palpation & inspection: normal inspection of the chest Resp Effort & Inspection: normal respiratory effort Auscultation: clear to auscultation bilaterally Percussion: percussion normal Cardio Rate: regular rate Rhythm: regular rhythm GI Palpation: soft, no hepatosplenomegaly, no masses, nontender Rectal Exam: other Other: Rectal exam deferred. No hernias are identified. All of her incisions are healing up well. She has no rebound guarding or peritoneal signs identified. Extrem General: normal to inspection, no clubbing, cyanosis or edema Assessment & Plan Problems 1. Right upper quadrant abdominal pain R10.11 2. Nausea R11.0 3. Diarrhea, unspecified type R19.7 Plan I have discussed the above with the patient. I have offered the patient esophagogastroduodenoscopy for evaluation. I have explained the risks/benefits of the procedure and described the procedure. I have discussed the risks with the patient, including but not limited to: infection, bleeding, perforation of the GI tract requiring emergency surgery, inability to complete the procedure, injury to any internal organs, complications of anesthesia, etc. - the patient understands and agrees to proceed. I have answered all the patient's questions to the patient's satisfaction and the patient has no further questions. The patient has been given instructions for the colon cleansing preparation. We will be biopsying the small intestine. Coding Level of Care Code Off vis,est,level 3 Diagnoses Right upper quadrant abdominal pain R10.11 Nausea R11.0 Diarrhea, unspecified type R19.7 ??Diarrhea type: unspecified type COVID (Procedure Consent) Procedure Criteria Procedure Criteria: Yes Elective The surgeon/proceduralist and patient have discussed in detail the risk of exposure to and/or potential harm posed by the COVID-19 virus with having a surgery/procedure at this time versus the risk of? delaying the surgery/procedure. It is not possible to know either the risk of delaying the surgery or procedure or chance of getting an infection with perfect accuracy, but a joint decision was made between the patient and the surgeon/proceduralist ?to proceed at this time with the scheduled surgery/procedure as indicated on the consent form. I have re-examined the patient. There are no clinical changes since date of exam.
[2020-03-07] MEDS: Lactated Ringers 1,000 ML 100 ML IV (08:30)
--- NOTE | 2020-03-07 08:45 | IMM_PTH ---
PATIENT: JESUS ZEPEDA LOC: EN U#:[id number] AGE/SX: 54/F ROOM: RE03/07/[address]: Dr. Baljeet Ferguson MD : 1965 BED: DIS: 03/07/2020 SPEC #: [id number] RECD: 03/07/20 13:24 STATUS: PATRICIA REQ #: [id number] STACY: 03/07/20 08:[address]: Baljeet Ferguson DEPT: IMMUNOHISTOCHEMISTRY RECD BY: Palak Huitron ENTERED: 03/07/20 13:26 SP TYPE: IMMUNO OTHR DR: Dr. Riki Clark MD Tissues: B - Stomach, NOS Procedures: H Pylori (initial) PHYSICIAN & INSTITUTION [place] [id number] SPECIMEN INFORMATION: Tissue Source: B - Antral biopsy Clinical Info: Abdominal pain Specimen Number: [id number] CPT code: 93990 METHODOLOGY: Deparaffinized sections of prefer/formalin-fixed tissue or PAP/DQ stained slides are incubated with monoclonal/polyclonal antibodies/oligonucleotide probes. Localization is made via biotin free immunoperoxidase method. Appropriate controls are performed and reacted as expected. Results on target cell population are indicated in the following table: RESULTS: ANTIBODY / CLONE RESULT Block B H Pylori (polyclonal) negative These tests were developed and their performance characteristics determined by [facility]. They may not have been cleared or approved by the U.S. Food and Drug Administration. The FDA has determined that such clearance or approval is not necessary. INTERPRETATION: B. Antral biopsy: Negative for Helicobacter pylori organisms. SJ:andreia 03/08/20
--- NOTE | 2020-03-07 08:51 | OP.EGD_ITS ---
Patient Name: Evelyn Olea Procedure Date: 03/07/2020 8:25 AM Date of : 1965 Age: 54 Procedure: Upper GI endoscopy Indications: Abdominal pain in the right upper quadrant, Diarrhea, Nausea Providers: Baljeet Ferguson MD Referring MD: Riki Clark Medicines: See the Anesthesia note for documentation of the administered medications Patient Profile: This is a 54 year old female. Refer to note in patient chart for documentation of history and physical. Complications: No immediate complications. Procedure: Pre-Anesthesia Assessment: - Prior to the procedure, a History and Physical was performed, and patient medications and allergies were reviewed. The patient's tolerance of previous anesthesia was also reviewed. The risks and benefits of the procedure and the sedation options and risks were discussed with the patient. All questions were answered, and informed consent was obtained. Prior Anticoagulants: The patient has taken no previous anticoagulant or antiplatelet agents. ASA Grade Assessment: III - A patient with severe systemic disease. After reviewing the risks and benefits, the patient was deemed in satisfactory condition to undergo the procedure. After obtaining informed consent, the endoscope was passed under direct vision. Throughout the procedure, the patient's blood pressure, pulse, and oxygen saturations were monitored continuously. The gastroscope was introduced through the mouth, and advanced to the second part of duodenum. The upper GI endoscopy was accomplished without difficulty. The patient tolerated the procedure well. Scope In: 8:40:34 AM Scope Out: 8:43:48 AM Total Procedure Duration Time 0 hours 3 minutes 14 seconds Findings: The examined esophagus was normal. No biopsies or other specimens were collected for this exam. Diffuse mild inflammation characterized by congestion (edema), erythema and linear erosions was found in the stomach. Biopsies were taken with a cold forceps for Helicobacter pylori testing. The examined duodenum was normal. Biopsies for histology were taken with a cold forceps for evaluation of celiac disease. Impression: - Normal esophagus. No specimens collected. - Gastritis. Biopsied. - Normal examined duodenum. Biopsied. Recommendation: - Await pathology results. - Repeat upper endoscopy (date not yet determined) for surveillance based on pathology results. - Return to my office in 1 week. - Continue present medications. Procedure Code(s): --- Professional --- 32194, Esophagogastroduodenoscopy, flexible, transoral; with biopsy, single or multiple Diagnosis Code(s): --- Professional --- K29.70, Gastritis, unspecified, without bleeding R10.11, Right upper quadrant pain R19.7, Diarrhea, unspecified R11.0, Nausea CPT copyright 2017 [employer]. All rights reserved. The codes documented in this report are preliminary and upon lithograph press operator review may be revised to meet current compliance requirements. MD Baljeet Sarmiento MD 03/07/2020 8:50:21 AM This report has been signed electronically. Number of Addenda: 0 Note Initiated On: 03/07/2020 8:25 AM
--- NOTE | 2020-03-07 08:51 | OP.CCLET_ITS ---
03/07/2020 Riki Clark Re : Upper GI endoscopy procedure for Evelyn Olea Dear Amber This procedure was performed on Saturday, March 07, 2020. My impressions and recommendations are as follows: Impressions : - Normal esophagus. No specimens collected. - Gastritis. Biopsied. - Normal examined duodenum. Biopsied. Recommendations : - Await pathology results. - Repeat upper endoscopy (date not yet determined) for surveillance based on pathology results. - Return to my office in 1 week. - Continue present medications. My findings are described in the full procedure note, which is enclosed. If I can be of further assistance, please feel free to contact me at Doctor phone number(s): , Fax: [phone], Work: . Sincerely, MD Baljeet Sarmiento MD 03/07/2020 8:50:21 AM This report has been signed electronically.
[2020-03-07 10:06] LABS: Bedside Glucose 131 mg/dL (70-110)
== END 2020-03-07 09:19 | disposition home or self-care (01) ==
LOC: EN 07:41 → AC 07:42
PROVIDERS: PCP Family Medicine; Referring Provider Family Medicine; Visit Provider Surgery
PROC: 0DJ08ZZ Inspection of Upper Intestinal Tract, Via Natural or Artificial Opening Endoscopic (ICD-10-PCS; CPT 43235; principal; 2020-03-07 08:40)
DX: K29.70 Gastritis, unspecified, without bleeding (principal); R19.7 Diarrhea, unspecified; R11.0 Nausea; J45.909 Unspecified asthma, uncomplicated; I10 Essential (primary) hypertension; E78.5 Hyperlipidemia, unspecified; E03.9 Hypothyroidism, unspecified; E11.9 Type 2 diabetes mellitus without complications; Z90.49 Acquired absence of other specified parts of digestive tract; Z79.4 Long term (current) use of insulin; Z79.82 Long term (current) use of aspirin; Z91.040 Latex allergy status
CPT/HCPCS: 43239; 82962; 87426; 88305; 88342; C9803; J7120

== ENCOUNTER 2020-10-12 11:24 | Emergency (ER) | payer MEDICARE, MEDICAID, SELFPAY ==
[2020-10-12 11:26] VITALS: BP 154/97; PULSE 82; RESP 22; TEMP 36.4; O2SAT 96; BMI 50.0
--- NOTE | 2020-10-12 11:44 | EX.ED.DYSGE1 ---
HPI History of Present Illness Chief Complaint: Wound Informant: patient Onset/Context/Timing Onset: Today Context: Sudden Onset Current Severity: Mild Maximum Severity: Mild Narrative Narrative: Patient is a 54-year-old female medical history significant for hypertension, hyperlipidemia, diabetes, and hypothyroidism who presents to the emergency department with bleeding from her leg. Patient states that she has chronic skin change on her posterior calves. She thinks is because of the jeans that she wears. She states that her boss noticed there was blood coming through her jeans and she was sent here. She is not on anticoagulants. [facility] Medical History Abdominal pain Asthma HTN (hypertension) Hyperlipidemia Hypothyroid Migraines Nausea Type 2 diabetes mellitus Home Medications amlodipine 5 mg PO DAILY 04/06/13 [History Last Taken 05/07/19] insulin detemir U-100 74 units SC QHS 04/06/13 [History Last Taken 05/07/19] levothyroxine 150 mcg PO DAILY 04/06/13 [History Last Taken 11/15/19] losartan 100 mg PO DAILY 04/06/13 [History Last Taken 05/07/19] saxagliptin-metformin 2 tab PO DAILY 04/06/13 [History Last Taken 11/15/19] atorvastatin 40 mg PO QHS 05/23/17 [History Last Taken 05/07/19] insulin lispro 16 unit SC DAILY 05/23/17 [History Last Taken 05/07/19] omeprazole 20 mg PO DAILY 05/23/17 [History Last Taken 05/07/19] insulin lispro 18 unit SQ 1200,1800 11/29/18 [History Last Taken 05/07/19] ferrous sulfate, dried 160 mg PO DAILY 11/08/19 [History Last Taken Unknown] Allergy/AdvReac Type Severity Reaction Status Date / Time latex Allergy Rash Verified 10/12/20 11:28 lisinopril AdvReac Other Verified 10/12/20 11:28 Family History Aunt Breast cancer Father Diabetes Hypertension Heart disease Myocardial infarction Mother Diabetes Hypertension Surgical History History of esophagogastroduodenoscopy (EGD) History of laparoscopic cholecystectomy (~11/15/19) S/P partial thyroidectomy Social History Smoking Status: Never smoker ROS ROS ED Constitutional Constitutional ED: Denies chills or fever(s) Eyes Eyes: Denies blurry vision or change in vision ENT ENT ED: Denies ear pain or sore throat Cardiovascular Cardiovascular: Denies chest pain or palpitations Respiratory/Chest Respiratory/Chest: Denies cough, dyspnea or dyspnea on exertion Gastrointestinal Gastrointestinal: Denies abdominal pain, nausea or vomiting Genitourinary Genitourinary ED: Denies dysuria or urinary frequency Musculoskeletal Musculoskeletal: Denies arthralgias or myalgias Integumentary Denies rash Neurologic Neurologic: Denies headache(s) or paresthesias Psychiatric Psychiatric: Denies anxiety or depression Endocrine Endocrinology: Denies polydipsia or polyuria Allergic/Immunologic Allergic/Immunologic ED: Denies urticaria EXAM Physical Exam Const Vital Signs: 10/12/20 11:26 Temperature 97.6 F L Temperature Source Temporal Pulse Rate 82 Respiratory Rate 22 H Blood Pressure 154/97 H Blood Pressure Mean 116 Pulse Ox 96 Oxygen Delivery Method Room Air Positive well nourished and well developed General Appearance ED: well developed HEENT Reports normocephalic, head/scalp atraumatic and moist mucous membranes Eyes PERRL and EOMs intact bilaterally Neck no lymphadenopathy and supple General: Negative for tenderness Chest Wall inspection of chest normal Resp normal respiratory effort and clear to auscultation bilaterally Cardio regular rate, regular rhythm and no murmurs GI normal to inspection, nondistended, normoactive bowel sounds Palpation: Negative for tender, guarding or rebound tenderness present Back/Spine no CVA tenderness Cervical Spine: Negative for cervical spine tenderness Thoracic Spine / Upper Back: Negative for thoracic spinal tenderness Extremity normal to inspection Extremity Narrative: Patient does have chronic skin change on bilateral posterior calf. There is a small area at the upper left lateral border with stigmata of recent bleeding. It is very superficial. There is no active bleeding. General Extremety ED: Negative for tenderness Neuro oriented x3 and CN's II-XII intact bilaterally Neuro Narrative: No focal deficits appreciated. Sensorium / Orientation: alert Psych mental status grossly normal Skin no rashes or lesions noted, no wounds and skin turgor normal MDM MDM MDM Narrative Medical decision making narrative: Patient has bleeding from chronic skin change. There is no active bleeding. She is not on anticoagulants. She has no other symptoms. Small piece of Surg[place]am and loose dressing was placed over top. The patient will be discharged home. Impression 1. Skin abrasion with bleeding Discharge Plan Triage Chief Complaint: Wound ED Provider: Terry Lebron Dx/Rx/DC Orders Instructions: ED Abrasion Prescriptions: No Action amlodipine 5 MG tablet 5 mg PO DAILY RF: 0 levothyroxine 50 MCG tablet 150 mcg PO DAILY RF: 0 losartan 100 MG tablet 100 mg PO DAILY RF: 0 insulin detemir U-100 100 UNITS/ML insulin pen 74 units SC QHS RF: 0 saxagliptin-metformin 1 EACH tablet, ER multiphase 24 hr 2 tab PO DAILY RF: 0 atorvastatin 40 MG tablet 40 mg PO QHS RF: 0 omeprazole 20 MG capsule 20 mg PO DAILY RF: 0 insulin lispro 100 UNIT/ML insulin pen 16 unit SC DAILY RF: 0 insulin lispro 100 UNIT/ML cartridge 18 unit SQ 1200,1800 RF: 0 ferrous sulfate, dried 160 MG tablet extended release 160 mg PO DAILY RF: 0 Primary Care Provider: Riki Clark Referrals: Riki Clark MD [Primary Care Provider] -
--- NOTE | 2020-10-12 11:56 | ED.RN ---
surgifoam applied, unable to document in JUN.
[2020-10-12] MEDS: Gelatin Sponge Absorbable 50cm (1) 1 EACH TOPICAL (12:19)
== END 2020-10-12 12:20 | disposition home or self-care (01) ==
LOC: ED 12:16
PROVIDERS: Emergency Provider Emergency Medicine; PCP Family Medicine
DX: S80.811A Abrasion, right lower leg, initial encounter (principal); E11.9 Type 2 diabetes mellitus without complications; R58 Hemorrhage, not elsewhere classified; I10 Essential (primary) hypertension; J45.909 Unspecified asthma, uncomplicated; E03.9 Hypothyroidism, unspecified; E78.5 Hyperlipidemia, unspecified; Z90.49 Acquired absence of other specified parts of digestive tract; Z79.4 Long term (current) use of insulin; Z79.899 Other long term (current) drug therapy; X58.XXXA Exposure to other specified factors, initial encounter; Y92.89 Other specified places as the place of occurrence of the external cause; Y99.8 Other external cause status
CPT/HCPCS: 99283

== ENCOUNTER → 2020-10-18 13:00 | Outpatient (CLI) | payer MEDICARE, MEDICAID, SELFPAY | PROVIDERS: PCP Family Medicine; Referring Provider Family Medicine; Visit Provider Family Medicine | DX: G47.33 Obstructive sleep apnea (adult) (pediatric) (principal) | CPT/HCPCS: 98960; G0463 ==

== ENCOUNTER → 2020-10-29 08:15 | Outpatient (CLI) | payer MEDICARE, MEDICAID, SELFPAY ==
[2020-10-12 11:26] VITALS: BMI 50.0
--- NOTE | 2020-10-26 16:30 | LES_PTH ---
PATIENT: JESUS ZEPEDA LOC: [facility] U#:[id number] AGE/SX: 59/F ROOM: RE10/29/[address]: Dr. Juanito Day MD : 1965 BED: DIS: SPEC #: [id number] RECD: 10/26/20 17:26 STATUS: PATRICIA HARPREET #: [id number] STACY: 10/26/20 16:[address]: Juanito Day DEPT: SURGICAL PATHOLOGY RECD BY: Evie Borrero ENTERED: 10/30/20 07:58 SP TYPE: Lesion OTHR DR: Dr. Riki Clark MD Tissues: Skin of eyelid, NOS Procedures: Surgery Specimen Level IV HEADER OPERATION: RLL lesion biopsy PRE-OP DIAGNOSIS: RLL lesion TISSUE SUBMITTED: RLL lesion MICROSCOPIC DIAGNOSIS Right lower lid lesion, biopsy: Consistent with eccrine hydrocystoma. AM:andreia 10/31/2020 MICROSCOPIC DESCRIPTION Slides are reviewed. GROSS DESCRIPTION Received in fixative is one container labeled with the patient's name and designated right lower lid. The specimen consists of an irregular fragment of martinez tissue measuring 0.2 x 0.2 x 0.1 cm. The specimen is totally submitted in one cassette. / AM:andreia 10/30/20 TC:5 CPT: 45660
== END ==
PROVIDERS: PCP Family Medicine; Referring Provider Ophthalmology; Visit Provider Ophthalmology
DX: D23.112 Other benign neoplasm of skin of right lower eyelid, including canthus (principal)
CPT/HCPCS: 88305

== ENCOUNTER 2021-01-09 08:43 | Emergency (ER) | payer MEDICARE, MEDICAID, SELFPAY ==
[2021-01-09 08:44] VITALS: BP 150/64; PULSE 83; RESP 14; TEMP 36.6; O2SAT 96; BMI 44.0
--- NOTE | 2021-01-09 09:20 | VDLE_ITS ---
Reason For Study: SWELLING Procedure LEFT This is a venous duplex using B-mode, color GSV is normal. flow and spectral Doppler. CFV is compressible, spontaneous, phasic, Exam performed portable in ED. competent, and demonstrates normal The study was technically difficult. augmentation. Due to the size of leg. FV is compressible, spontaneous, phasic, A preliminary report was called and/or faxed competent and demonstrates normal to Dr. Persaud & ED @ 9:50 am. augmentation. POP V is compressible, spontaneous, phasic, competent and demonstrates normal augmentation. T/P Trunk is compressible. PTV is compressible. PERV not well visualized, appears normal. VL/Venous Duplex US, Unilateral Interpretation Summary There is no evidence of left lower extremity deep vein thrombosis. Left great s aphenous vein appears patent and compressible segmentally. Left peroneal vein not well visualized This examination was noted be technically difficult. Ordering Physician: Esa Persaud Referring Physician: Riki Clark Performed By: Rachel Rocha, RDCS, RVT
--- NOTE | 2021-01-09 09:20 | ED.VIS.LOWEX ---
HPI History of Present Illness HPI Narrative: Patient presents with left lower leg pain that has been getting worse over the past 3 days. Patient states she was sent home from work today because she was unable to stand on her left leg. Patient states that this is due to the pain. Patient denies any weakness. Patient denies any paresthesias. Patient denies any trauma or injury. Patient states her pain has gradually gotten worse over the last 3 days. Patient states pain has been constant. Patient states nothing seems to help with the pain. Chief Complaint: Lower Extremity Injury Informant: patient Onset/Context/Timing Onset: Days (3) Context: Gradual Onset Timing: Continuous Quality of Pain: Sharp, Aching, Burning and Throbbing Location: Left lower leg Worsened by: Weightbearing Relieved by: Nothing Associated Symptoms Associated Symptoms: Negative for Parasthesia, Weakness and Loss of Funtion [facility] Medical History (Updated 01/09/21 @ 11:[address] Esa Persaud, DO) Abdominal pain Asthma HTN (hypertension) Hyperlipidemia Hypothyroid Migraines Nausea Type 2 diabetes mellitus Home Medications amlodipine 5 mg PO DAILY 04/06/13 [History Last Taken 05/07/19] insulin detemir U-100 74 units SC QHS 04/06/13 [History Last Taken 05/07/19] levothyroxine 150 mcg PO DAILY 04/06/13 [History Last Taken 11/15/19] losartan 100 mg PO DAILY 04/06/13 [History Last Taken 05/07/19] saxagliptin-metformin 2 tab PO DAILY 04/06/13 [History Last Taken 11/15/19] atorvastatin 40 mg PO QHS 05/23/17 [History Last Taken 05/07/19] insulin lispro 16 unit SC DAILY 05/23/17 [History Last Taken 05/07/19] omeprazole 20 mg PO DAILY 05/23/17 [History Last Taken 05/07/19] insulin lispro 18 unit SQ 1200,2000 11/29/18 [History Last Taken 05/07/19] cephalexin 500 mg PO Q6 #40 capsule 01/09/21 [Rx Last Taken Unknown] hydrocodone-acetaminophen 1 tab PO Q6H PRN PRN 3 Days #10 tablet 01/09/21 [Rx Last Taken Unknown] Allergy/AdvReac Type Severity Reaction Status Date / Time latex Allergy Rash Verified 01/09/21 08:46 lisinopril AdvReac Other Verified 01/09/21 08:46 Family History Aunt Breast cancer Father Diabetes Hypertension Heart disease Myocardial infarction Mother Diabetes Hypertension Surgical History History of esophagogastroduodenoscopy (EGD) History of laparoscopic cholecystectomy (~11/15/19) S/P partial thyroidectomy Social History Smoking Status: Never smoker ROS ROS ED Constitutional Constitutional ED: Denies chills or fever(s) Eyes Eyes: Denies blurry vision or change in vision ENT ENT ED: Denies rhinorrhea or sore throat Cardiovascular Cardiovascular: Denies chest pain or palpitations Respiratory/Chest Respiratory/Chest: Denies cough or dyspnea Gastrointestinal Gastrointestinal: Denies nausea or vomiting Genitourinary Genitourinary ED: Denies dysuria or hematuria Musculoskeletal Musculoskeletal: Denies back pain or neck pain Integumentary Denies abscess or rash Neurologic Neurologic: Denies headache(s) or weakness Allergic/Immunologic Allergic/Immunologic ED: Denies mouth swelling or urticaria EXAM Physical Exam Const Vital Signs: 01/09/21 08:44 01/09/21 09:28 01/09/21 09:30 Temperature 97.8 F Temperature Source Temporal Pulse Rate 83 Respiratory Rate 14 16 16 Blood Pressure 150/64 H Blood Pressure Mean 92 Pulse Ox 96 Oxygen Delivery Method Room Air Positive well nourished, well developed and obese General Appearance ED: well developed Nutritional Appearance: obese HEENT Reports moist mucous membranes Extremity Extremity Narrative: There is tenderness, edema, erythema, and warmth over the left lower extremity. There is some edema over the right lower extremity but the left is worse. There is no discharge or drainage. There is some tenderness over the left calf. There is some pain with dorsiflexion of the left ankle. There is good range of motion of the left ankle and left knee although it was somewhat limited secondary to pain. Posterior tibial pulses were equal bilaterally. Sensation was intact to light touch bilaterally in the lower extremities. Neuro oriented x3, CN's II-XII intact bilaterally, moves all extremities and no sensory deficits noted Sensorium / Orientation: alert Motor Exam: strength 5/5 throughout Psych mental status grossly normal MDM MDM MDM Narrative Medical decision making narrative: Venous duplex was obtained and was within normal limits. CBC shows a mild leukocytosis of 11.7. Hemoglobin was 9.6 hematocrit was 31.1. Comprehensive metabolic profile showed sodium of 129 and a potassium of 2.9 and chloride of 95. Creatinine was 1.18. Patient was given a dose of Ancef here. Patient was also given a dose of potassium here. Patient is feeling better on reevaluation. Patient was given a prescription for Keflex. Patient was also given a prescription for [place]. Patient declined crutches or a walker. Patient was instructed to follow-up with her primary care physician in 3 to 5 days. Patient understood and was agreeable with the plan. All questions were answered. Lab Data Attestation: I reviewed the patient's lab results. Labs: Laboratory Results - last 24 hr 01/09/21 01/09/21 09:39 09:39 WBC 11.7 H RBC 3.74 L Hgb 9.6 L Hct 31.1 L MCV 83.2 MCH 25.7 L MCHC 30.9 L RDW Std Deviation 46.7 H RDW Coeff of Negar 15.3 H Plt Count 294 MPV 8.9 Immature Gran % (Auto) 0.300 Neut % (Auto) 78.5 H Lymph % (Auto) 11.8 L [place] % (Auto) 8.8 Eos % (Auto) 0.3 Baso % (Auto) 0.3 Absolute Neuts (auto) 9.1 H Absolute Lymphs (auto) 1.38 Nucleated RBC % 0 Sodium 129 L Potassium 2.9 L Chloride 95 L Carbon Dioxide 25.0 Anion Gap 9 BUN 16 Creatinine 1.18 H Estim Creat Clear Calc 49.04 Est GFR (MDRD) Af Amer 61 Est GFR (MDRD) Non-Af 51 L BUN/Creatinine Ratio 13.6 Glucose 162 H Calcium 8.4 L Total Bilirubin 1.00 AST 36 ALT 26 Alkaline Phosphatase 93 Total Protein 9.8 H Albumin 2.4 L Globulin 7.4 H Albumin/Globulin Ratio 0.3 L Discharge Plan Triage Chief Complaint: Lower Extremity Injury ED Provider: Esa Persaud Dx/Rx/DC Orders Clinical Impression: Cellulitis of left lower leg Instructions: ED Cellulitis Prescriptions: New hydrocodone-acetaminophen [hydrocodone-acetaminophen] 1 TABLET tablet 1 tab PO Q6H PRN PRN (Reason: Pain) 3 Days Qty: 10 RF: 0 cephalexin [cephalexin] 500 MG capsule 500 mg PO Q6 Qty: 40 RF: 0 No Action amlodipine 5 MG tablet 5 mg PO DAILY RF: 0 levothyroxine 50 MCG tablet 150 mcg PO DAILY RF: 0 losartan 100 MG tablet 100 mg PO DAILY RF: 0 insulin detemir U-100 100 UNITS/ML insulin pen 74 units SC QHS RF: 0 saxagliptin-metformin 1 EACH tablet, ER multiphase 24 hr 2 tab PO DAILY RF: 0 atorvastatin 40 MG tablet 40 mg PO QHS RF: 0 omeprazole 20 MG capsule 20 mg PO DAILY RF: 0 insulin lispro 100 UNIT/ML insulin pen 16 unit SC DAILY RF: 0 insulin lispro 100 UNIT/ML cartridge 18 unit SQ 1200,2000 RF: 0 Primary Care Provider: Riki Clark Referrals: Riki Clark MD [Primary Care Provider] - 3-5 Days Disposition Disposition: Home, Self Care
[2021-01-09 09:28] VITALS: RESP 16
[2021-01-09 09:30] VITALS: RESP 16
[2021-01-09 09:46] LABS: Absolute Lymphocyte Count 1.38 X10^3/uL (0.83-4.51); Absolute Neutrophil Count 9.1 X10^3/uL (2.0-7.7); Basophil# 0.03 X10^3/uL; Basophil% 0.3 % (0-1); Eosinophil# 0.04 X10^3/uL; Eosinophils% 0.3 % (0-5); Hematocrit 31.1 % (37-47); Hemoglobin 9.6 g/dL (12.0-15.0); Lymphocyte # 1.38 X10^3/ul (0.83-4.51); Lymphocyte % 11.8 % (19-41); Mean Corp Hgb Conc 30.9 g/dL (32-36); Mean Corpuscular Hgb 25.7 pg (27.0-32.0); Mean Corpuscular Volume 83.2 fL (81-99); Mean Platelet Vol. 8.9 fl (6.2-12.0); Monocyte# 1.02 X10^3/uL; Monocyte% 8.8 % (0-10); NRBC Flagged by Analyzer 0 % (0-5); Neutrophil # 9.14 X10^3/uL (2.7-7.7); Neutrophil % 78.5 % (47-70); Platelet Count 294 K/mm3 (150-450); RBC Distribution Width CV 15.3 % (11.6-14.6); RBC Distribution Width SD 46.7 fl (35.1-43.9); Red Blood Count 3.74 M/mm3 (4.2-5.4); White Blood Count 11.7 K/mm3 (4.4-11.0)
[2021-01-09 10:02] LABS: ALB/GLOB Ratio 0.3 RATIO (0.9-2.4); AST(SGOT) 36 U/L (15-37); Alanine Aminotransfer ALT/SGPT 26 U/L (13-56); Albumin, Serum 2.4 g/dL (3.2-5.0); Alkaline Phosphatase 93 U/L (45-117); Anion Gap 9 (5-15); BUN 16 mg/dL (7-18); BUN/Creat Ratio 13.6 RATIO (10-20); Calcium,Total 8.4 mg/dL (8.5-10.1); Chloride 95 mmol/L (98-107); Creatinine, Serum 1.18 mg/dL (0.55-1.02); EST Glomerular Filtration Rate 51 mL/min (>60); Est Glom Filt Rate - Afr Amer 61 mL/min (>60); Estimated Creatinine Clearance 49.04 ml/min; Globulin 7.4 g/dL (2.2-4.2); Glucose 162 mg/dL (74-106); Potassium 2.9 mmol/L (3.5-5.1); Protein, Total 9.8 g/dL (6.4-8.2); Sodium Level 129 mmol/L (136-145)
[2021-01-09] MEDS: Cefazolin 1 GM/50 ML BAG IV (10:19)
[2021-01-09] MEDS: Potassium Chloride Oral Tablet 20 MEQ 60 MEQ PO (11:46)
[2021-01-09 11:47] VITALS: BP 138/82; PULSE 67; RESP 15; O2SAT 96
== END 2021-01-09 11:51 | disposition home or self-care (01) ==
PROVIDERS: Emergency Provider Emergency Medicine; PCP Family Medicine
DX: L03.116 Cellulitis of left lower limb (principal); E66.9 Obesity, unspecified; Z90.49 Acquired absence of other specified parts of digestive tract; J45.909 Unspecified asthma, uncomplicated; E03.9 Hypothyroidism, unspecified; I10 Essential (primary) hypertension; E78.5 Hyperlipidemia, unspecified; E11.9 Type 2 diabetes mellitus without complications
CPT/HCPCS: 80053; 85025; 93971; 99284; J7050; A4216

== ENCOUNTER 2021-08-05 08:41 | Outpatient (CLI) | payer MEDICARE, MEDICAID, SELFPAY | END 2021-08-05 23:59 | disposition home or self-care (01) | LOC: EN 08:41 | PROVIDERS: PCP Family Medicine; Referring Provider Surgery; Visit Provider Surgery | DX: Z53.9 Procedure and treatment not carried out, unspecified reason (principal) ==

== ENCOUNTER 2022-01-10 16:06 | Inpatient (IN) | payer MEDICARE, MEDICAID, SELFPAY ==
[2022-01-10] VITALS (18 sets, daily range): BP systolic 156–240; BP diastolic 70–123; PULSE 68–102; RESP 18–28; TEMP 35.8–36.8; O2SAT 85–100; BMI 38.8; BMI 38.5
--- NOTE | 2022-01-10 16:27 | CT_ITS ---
STUDY: CTA CHEST REASON FOR EXAM: Female, 56 years old. Elevated d-dimer. Shortness of breath for 3 months. RADIATION DOSAGE (If Supplied By Facility): CTDIvol = ( 16.15 ) mGy, DLP = ( 473.19 ) mGycm TECHNIQUE: The examination was performed with the intravenous administration of IV 100mL Isovue-370. Post-processing of the angiographic images was performed, with multiplanar reformation and 3D reconstruction. Individualized dose optimization techniques were used for this CT. COMPARISON: CTA of the chest, 05/23/2017. FINDINGS: Normal enhancement of the main pulmonary artery and right and left pulmonary arteries. Normal enhancement of the bilateral peripheral pulmonary arteries. There is no demonstrated pulmonary embolism. Normal thoracic aorta and visualized great vessels. There is no demonstrated aortic dissection. The heart is mildly enlarged. Normal pericardium. Coronary artery calcifications. There are paratracheal, prevascular, AP window and subcarinal lymph nodes. Normal hilar regions. Normal visualized trachea and bronchi. The lungs are well expanded. There are diffuse groundglass infiltrates throughout both lungs most marked at the lung bases. No focal mass or consolidation Normal pleura. There are enlarged bilateral inguinal lymph nodes. The largest on the right measures 4 x 3.9 x 1.6 cm. Degenerative changes of the shoulders and thoracic spine. No visualized fracture or dislocation. Normal visualized upper abdomen. CT/CTA Chest W/WO Contrast IMPRESSION: 1. No evidence of pulmonary embolus. 2. No aortic dissection or aneurysm. 3. Diffuse groundglass pulmonary infiltrates most marked at the lung bases. 4. Cardiomegaly with coronary artery calcifications. 5. Mediastinal and axillary lymphadenopathy, not present on the prior examination.. Electronically Signed: Wesley yS DO at 17:49 EDT Reading Location ID and State: [address] [place] [address] Tel [phone], Service support ,
--- NOTE | 2022-01-10 16:28 | EKG12_ITS ---
Test Reason : SOB Blood Pressure : / mmHG Vent. Rate : 082 BPM Atrial Rate : 082 BPM P-R Int : 164 ms QRS Dur : 142 ms QT Int : 422 ms P-R-T Axes : 044 -15 008 degrees QTc Int : 493 ms Normal sinus rhythm Right bundle branch block Minimal voltage criteria for LVH, may be normal variant ( R in aVL ) Possible Inferior infarct , age undetermined Abnormal ECG Confirmed by JORGE SANDERSON, BLANCO ([id number]), acquisitions editor VERONIKA NORIEGA ([id number]) on 01/13/2022 11:01:58 AM Referred By: Confirmed By:BLANCO PATEL MD
--- NOTE | 2022-01-10 16:29 | EDS_ITS ---
HPI History of Present Illness Chief Complaint: Shortness of Breath Narrative Narrative: Patient with past medical history of hypertension, hyperlipidemia, diabetes, chronic lymphedema of the bilateral lower extremities states she has been short of breath for months. She denies any history of immobility or trauma to her legs. She went to her primary care provider's office today and had laboratory work and was told that she had an elevated D-dimer. She was sent for stat CT of her chest to rule out pulmonary embolism. She denies any chest pain with this. No nausea or vomiting. No recent fevers or chills, or cough. [facility] Medical History Abdominal pain Anxiety Arthritis Asthma Asthma Depression Dietary restriction Easy bruising Gastric reflux High cholesterol History of edema History of pain when walking HTN (hypertension) Hyperlipidemia Hypertension Hypothyroid Insulin dependent diabetes mellitus Leg cramps Low iron Migraines Nausea Non-smoker Postoperative primary hypothyroidism Pulmonary embolism Restless legs Shortness of breath on exertion Thyroid cancer Type 2 diabetes mellitus Wears glasses Home Medications amlodipine 5 mg tablet 5 mg PO DAILY bp 04/06/13 [History Last Taken 05/07/19] insulin detemir U-100 100 unit/mL (3 mL) subcutaneous pen 74 units subcut QHS 04/06/13 [History Last Taken 05/07/19] saxagliptin 2.5 mg-metformin ER 1,000 mg tablet,extend release 24hr mp 1 tab PO BID diabetes 04/06/13 [History Last Taken 11/15/19] atorvastatin 40 mg tablet 40 mg PO QHS 05/23/17 [History Last Taken 05/07/19] insulin lispro 100 unit/mL subcutaneous pen 16 unit subcut DAILY 05/23/17 [History Last Taken 05/07/19] insulin lispro 100 unit/mL subcutaneous cartridge 18 unit SQ 1200,2000 11/29/18 [History Last Taken 05/07/19] ferrous sulfate 325 mg (65 mg iron) tablet (FeroSul) 325 mg PO BID 05/30/21 [History Last Taken Unknown] levothyroxine 50 mcg tablet 50 mcg PO DAILY 10/17/21 [History Last Taken Unknown] omeprazole 40 mg capsule,delayed release 40 mg PO DAILY 10/17/21 [History Last Taken Unknown] Allergy/AdvReac Type Severity Reaction Status Date / Time latex Allergy Rash Verified 10/17/21 14:53 lisinopril AdvReac Other Verified 10/17/21 14:53 Family History Aunt Breast cancer Father Diabetes Hypertension Heart disease Myocardial infarction Mother Diabetes Hypertension Surgical History History of esophagogastroduodenoscopy (EGD) History of laparoscopic cholecystectomy (~11/15/19) Hx of bilateral cataract extraction Hx of tubal ligation S/P partial thyroidectomy Social History Smoking Status: Never smoker ROS ROS ED ROS Narrative Constitutional: No fever, no chills. HEENT: No sore throat. No neck pain. No loss of vision. No rhinorrhea. Cardiovascular: No chest pain. No palpitations. Chronic bilateral lower extremity/pedal edema. Respiratory: No cough, positive shortness of breath. Abdominal: No abdominal pain. No nausea. No vomiting. Genitourinary: No dysuria. No hematuria. Musculoskeletal: No myalgias. No arthralgias. Neurologic: No headaches. No dizziness. No lightheadedness. Skin: No rash. No change in color. Psychiatric: No depression. No anxiety. EXAM Physical Exam Narrative Exam Narrative: Afebrile. Vital signs noted. HEENT: Normocephalic. Atraumatic. PERRL, EOMI. Neck soft and supple. No point tenderness or step off. Cardiovascular: Regular rate and rhythm. No murmurs, rubs, or gallops appreciated. Respiratory: No tachypnea. Lungs clear to auscultation bilaterally. Gastrointestinal: Abdomen soft, nontender, with normoactive bowel sounds. No rebound or guarding. Neurological: Awake. Alert. Nonfocal, nonlateralizing. Skin: No rash. Normal color. No pallor. Musculoskeletal: Bilateral symmetric chronic lymphedema/pedal edema. Full range of motion extremities. Const Vital Signs: 01/10/22 16:08 01/10/22 16:07 01/10/22 16:26 Temperature 96.5 F L 96.5 F L Temperature Source Temporal Temporal Pulse Rate 102 H 102 H Respiratory Rate 28 H 28 H Respiratory Effort Respiratory Depth Respiratory Pattern Blood Pressure 240/109 H 240/109 H Blood Pressure Mean 152 152 Pulse Ox 94 94 86 Oxygen Delivery Method Room Air Room Air Room Air Oxygen Flow Rate (L/min) 01/10/22 16:26 01/10/22 16:26 01/10/22 16:31 Temperature Temperature Source Pulse Rate 84 Respiratory Rate 24 H Respiratory Effort Short of Breath Respiratory Depth Normal Respiratory Pattern Tachypnea Blood Pressure Blood Pressure Mean Pulse Ox 93 Oxygen Delivery Method Room Air Room Air Oxygen Flow Rate (L/min) 01/10/22 16:31 01/10/22 17:09 01/10/22 17:36 Temperature Temperature Source Pulse Rate 79 Respiratory Rate 23 H Respiratory Effort Respiratory Depth Respiratory Pattern Blood Pressure 164/70 H 172/71 H Blood Pressure Mean 101 104 Pulse Ox 93 85 Oxygen Delivery Method Room Air Room Air Oxygen Flow Rate (L/min) 01/10/22 17:37 01/10/22 18:13 01/10/22 18:13 Temperature 97.9 F Temperature Source Temporal Pulse Rate 81 Respiratory Rate 22 H 22 H Respiratory Effort Respiratory Depth Respiratory Pattern Blood Pressure 176/77 H Blood Pressure Mean 110 Pulse Ox 96 97 Oxygen Delivery Method Nasal Cannula Nasal Cannula Oxygen Flow Rate (L/min) 2 2 MDM MDM MDM Narrative Medical decision making narrative: I reviewed the facsimile transmission from her primary care provider. She has an elevated D-dimer of 1.2. I ordered a CTA and basic laboratory work including CBC and BMP. EKG interpreted by myself demonstrates normal sinus rhythm at 82 bpm without ectopy or acute ST changes. No STEMI. There is a right bundle branch block, but no significant change from previous dated November 15, 2019. CBC shows hemoglobin low at 6.8 with a normal white count of 4.9, platelet count normal at 345. Electrolyte panel is grossly unremarkable except for glucose of 147 with a normal anion gap of 8. Initial high-sensitivity troponin 20. CTA shows no evidence of pulmonary embolism or aneurysm. RN noted that after the patient ambulated she was hypoxic briefly to 85 to 88% on room air. Then, she became hypoxic sitting there at 88% on room air on the cot without exertion. She refused rectal examination stating that she is not having black stool or any other bleeding diathesis. However, she does state that she takes iron and has so for approximately 1 year. I do feel that her shortness of breath times months is most likely secondary to a low hemoglobin. She will be consented for blood transfusion. Type and crossmatch was ordered. I discussed patient with Dr. Ye for admission to the PCU. Patient is in stable condition. Lab Data Attestation: I reviewed the patient's lab results. Labs: Laboratory Results - last 24 hr 01/10/22 01/10/22 01/10/22 16:23 16:23 18:10 WBC 4.9 RBC 3.44 L Hgb 6.8 L Hct 24.1 L MCV 70.1 L MCH 19.8 L MCHC 28.2 L RDW Std Deviation 44.8 H RDW Coeff of Negar 18.0 H Plt Count 345 MPV 9.2 Immature Gran % (Auto) 0.200 Neut % (Auto) 53.2 Lymph % (Auto) 28.5 Forrest % (Auto) 13.8 H Eos % (Auto) 3.3 Baso % (Auto) 1.0 Absolute Neuts (auto) 2.6 Absolute Lymphs (auto) 1.38 Nucleated RBC % 0 Sodium 137 Potassium 3.5 Chloride 106 Carbon Dioxide 23.0 Anion Gap 8 BUN 13 Creatinine 0.84 Estim Creat Clear Calc 68.09 Est GFR (MDRD) Af Amer 91 Est GFR (MDRD) Non-Af 75 BUN/Creatinine Ratio 15.5 Glucose 147 H Calcium 8.8 Troponin I High Sens 20 Crossmatch See Detail Radiography Diagnostic Testing: Clinical Impression(s) from Imaging Studies Chest CTA 01/10/22 16:27 IMPRESSION: 1. No evidence of pulmonary embolus. 2. No aortic dissection or aneurysm. 3. Diffuse groundglass pulmonary infiltrates most marked at the lung bases. 4. Cardiomegaly with coronary artery calcifications. 5. Mediastinal and axillary lymphadenopathy, not present on the prior examination.. Electronically Signed: Wesley Sy DO at 17:49 EDT Reading Location ID and State: [facility] / [place] Tel [phone], Service support , Discharge Plan Dx/Rx/DC Orders Clinical Impression: Shortness of breath, Anemia requiring transfusions, Hypoxia Disposition Disposition: Acute Care [facility]
[2022-01-10] MEDS: Aspirin 81 MG TAB.CHEW 324 MG PO (16:34)
[2022-01-10 16:39] LABS: Absolute Lymphocyte Count 1.38 X10^3/uL (0.83-4.51); Absolute Neutrophil Count 2.6 X10^3/uL (2.0-7.7); Basophil# 0.05 X10^3/uL; Eosinophil# 0.16 X10^3/uL; Eosinophils% 3.3 % (0-5); Hematocrit 24.1 % (37-47); Hemoglobin 6.8 g/dL (12.0-15.0); Lymphocyte # 1.38 X10^3/ul (0.83-4.51); Lymphocyte % 28.5 % (19-41); Mean Corp Hgb Conc 28.2 g/dL (32-36); Mean Corpuscular Hgb 19.8 pg (27.0-32.0); Mean Corpuscular Volume 70.1 fL (81-99); Mean Platelet Vol. 9.2 fl (6.2-12.0); Monocyte# 0.67 X10^3/uL; Monocyte% 13.8 % (0-10); NRBC Flagged by Analyzer 0 % (0-5); Neutrophil # 2.58 X10^3/uL (2.7-7.7); Neutrophil % 53.2 % (47-70); Platelet Count 345 K/mm3 (150-450); RBC Distribution Width SD 44.8 fl (35.1-43.9); Red Blood Count 3.44 M/mm3 (4.2-5.4); White Blood Count 4.9 K/mm3 (4.4-11.0)
[2022-01-10 16:58] LABS: Anion Gap 8 (5-15); BUN 13 mg/dL (7-18); BUN/Creat Ratio 15.5 RATIO (10-20); Calcium,Total 8.8 mg/dL (8.5-10.1); Chloride 106 mmol/L (98-107); Creatinine, Serum 0.84 mg/dL (0.55-1.02); EST Glomerular Filtration Rate 75 mL/min (>60); Est Glom Filt Rate - Afr Amer 91 mL/min (>60); Estimated Creatinine Clearance 68.09 ml/min; Glucose 147 mg/dL (74-106); Potassium 3.5 mmol/L (3.5-5.1); Sodium Level 137 mmol/L (136-145); Troponin-I HS (w/2H Reflex) 20 pg/mL (3.0-54.0)
--- NOTE | 2022-01-10 18:10 | NURSING ---
PCU TERELETSKY ANEMIA REQUIRING TRANSFUSION, SHORTNESS OF BREATH, HYPOXIA
--- NOTE | 2022-01-10 18:26 | HP.PCM.HOS_ITS ---
HPI - General General Date of Admission: 01/10/22 Date of Service: 01/10/22 Chief Complaint: Abnormal outpatient labs, shortness of breath HPI Narrative JESUS ZEPEDA, is a 56 F who presents to the emergency room at [facility] after being sent in by her PCP due to complaints of shortness of breath and an abnormal D-dimer that was obtained as an outpatient. Patient had a past history of pulmonary embolism a few years ago. Work-up in the emergency room included labs which revealed the patient to be anemic with a hemoglobin of 6.8, chemistry profile was unremarkable except for glucose of 147. Patient had a CTA done of her chest which showed bilateral lower lobe groundglass appearance at the lung bases, no evidence of a PE was noted. Patient required 2 L of oxygen to maintain her pulse ox above 90%. Patient will be admitted to PCU for acute anemia and hypoxia, I have contacted gastroenterology, they will perform an EGD and colonoscopy on the patient, patient denies ever having a colonoscopy. [facility] Medical History Abdominal pain Anxiety Arthritis Asthma Asthma Depression Dietary restriction Easy bruising Gastric reflux High cholesterol History of edema History of pain when walking HTN (hypertension) Hyperlipidemia Hypertension Hypothyroid Insulin dependent diabetes mellitus Leg cramps Low iron Migraines Nausea Non-smoker Postoperative primary hypothyroidism Pulmonary embolism Restless legs Shortness of breath on exertion Thyroid cancer Type 2 diabetes mellitus Wears glasses Home Medications amlodipine 5 mg tablet 5 mg PO DAILY bp 04/06/13 [History Last Taken 01/10/22] insulin detemir U-100 100 unit/mL (3 mL) subcutaneous pen 74 units subcut QHS dm 04/06/13 [History Last Taken 01/09/22] saxagliptin 2.5 mg-metformin ER 1,000 mg tablet,extend release 24hr mp 1 tab PO BID diabetes 04/06/13 [History Last Taken 01/09/22] atorvastatin 40 mg tablet 40 mg PO QHS cholesterol 05/23/17 [History Last Taken 01/09/22] insulin lispro 100 unit/mL subcutaneous pen 16 unit subcut DAILY dm 05/23/17 [History Last Taken 01/10/22] insulin lispro 100 unit/mL subcutaneous cartridge 18 unit SQ 1200,2000 dm 11/29/18 [History Last Taken 01/09/22] ferrous sulfate 325 mg (65 mg iron) tablet (FeroSul) 325 mg PO BID supplement 05/30/21 [History Last Taken 01/10/22] levothyroxine 50 mcg tablet 50 mcg PO DAILY thyroid 10/17/21 [History Last Taken 01/10/22] omeprazole 40 mg capsule,delayed release 40 mg PO DAILY GERD 10/17/21 [History Last Taken 01/09/22] Allergy/AdvReac Type Severity Reaction Status Date / Time latex Allergy Rash Verified 10/17/21 14:53 lisinopril AdvReac Other Verified 10/17/21 14:53 Family History Aunt Breast cancer Father Diabetes Hypertension Heart disease Myocardial infarction Mother Diabetes Hypertension Surgical History History of esophagogastroduodenoscopy (EGD) History of laparoscopic cholecystectomy (~11/15/19) Hx of bilateral cataract extraction Hx of tubal ligation S/P partial thyroidectomy Social History Smoking Status: Never smoker ROS Constitutional Constitutional: Denies anorexia, change in weight, chills, fatigue, fever(s), ni ght sweats or weakness Eyes Eyes: Denies blurry vision, change in vision, discharge from eye(s), double vision or eye pain ENT HEENT: Denies dysphagia or ear pain Cardiovascular Cardiovascular: Denies chest pain, claudication, edema, lightheadedness, or thopnea or palpitations Respiratory/Chest Respiratory/Chest: Reports dyspnea and shortness of breath with exertion; Denies cough, hemoptysis, productive cough or shortness of breath at rest Gastrointestinal Gastrointestinal: Denies abdominal pain, constipation, diarrhea, hematemesis, hematochezia, melena, nausea or vomiting Genitourinary Genitourinary: Denies dysuria, hematuria, urinary frequency, urinary hesitancy, urinary incontinence or urinary urgency Musculoskeletal Musculoskeletal: Denies back pain, joint pain, joint stiffness, joint swelling, myalgias or neck pain Neurologic Neurologic: Denies abnormal gait, abnormal speech, dizziness, focal weakness, headache(s), loss of vision, numbness, other visual disturbances, paresthesias, syncope or tingling Psychiatric Psychiatric: Denies anxiety, cognitive impairment, depression, irritability, mood swings or suicidal ideation Endocrine Endocrinology: Denies change in body appearance, cold intolerance, excessive sweating, heat intolerance, polydipsia or polyuria Hematologic/Lymphatic Hematologic/Lymphatic: Denies none, anemia, easy bleeding, easy bruising or lymphadenopathy Allergic/Immunologic Allergic/Immunologic: Denies rhinitis, urticaria, eczemia or asthma Vital Signs Vital Signs Vital Signs: 01/10/22 16:08 01/10/22 16:07 01/10/22 16:26 Temperature 96.5 F L 96.5 F L Temperature Source Temporal Temporal Pulse Rate 102 H 102 H Respiratory Rate 28 H 28 H Respiratory Effort Respiratory Depth Respiratory Pattern Blood Pressure 240/109 H 240/109 H Blood Pressure Mean 152 152 Pulse Ox 94 94 86 Oxygen Delivery Method Room Air Room Air Room Air Oxygen Flow Rate (L/min) 01/10/22 16:26 01/10/22 16:26 01/10/22 16:31 Temperature Temperature Source Pulse Rate 84 Respiratory Rate 24 H Respiratory Effort Short of Breath Respiratory Depth Normal Respiratory Pattern Tachypnea Blood Pressure Blood Pressure Mean Pulse Ox 93 Oxygen Delivery Method Room Air Room Air Oxygen Flow Rate (L/min) 01/10/22 16:31 01/10/22 17:09 01/10/22 17:36 Temperature Temperature Source Pulse Rate 79 Respiratory Rate 23 H Respiratory Effort Respiratory Depth Respiratory Pattern Blood Pressure 164/70 H 172/71 H Blood Pressure Mean 101 104 Pulse Ox 93 85 Oxygen Delivery Method Room Air Room Air Oxygen Flow Rate (L/min) 01/10/22 17:37 01/10/22 18:13 01/10/22 18:13 Temperature 97.9 F Temperature Source Temporal Pulse Rate 81 Respiratory Rate 22 H 22 H Respiratory Effort Respiratory Depth Respiratory Pattern Blood Pressure 176/77 H Blood Pressure Mean 110 Pulse Ox 96 97 Oxygen Delivery Method Nasal Cannula Nasal Cannula Oxygen Flow Rate (L/min) 2 2 Weight Weight: 105.9 kg Body Mass Index (BMI) 38.8 Physical Exam Const alert, oriented x3 and no apparent distress General Appearance: cooperative, well kempt and well developed Orientation / Consciousness: awake, oriented to person, oriented to place and oriented to time HEENT normocephalic and moist oral mucous membranes Eyes PERRL, EOMs intact bilaterally and conjunctivae normal Neck supple, no JVD, thyroid normal and no carotid bruits General: trachea midline Resp normal respiratory effort, no retractions, no use of accessory muscles and clear to auscultation bilaterally Auscultation: Negative for rales, rhonchi or wheezes Cardio regular rate, regular rhythm, S1 normal heart sound, S2 normal heart sound, no murmurs, no rub and no gallops GI normal to inspection, nondistended, normoactive bowel sounds, soft to palpation, non-tender and non-distended Extremity Extremity Narrative: There is generalized nonpitting edema over the patient's lower legs bilaterally Skin no rashes or lesions noted General Skin Exam: no breakdown Neuro oriented x3, CN's II-XII intact bilaterally, moves all extremities, no focal motor deficits and no sensory deficits noted Sensorium / Orientation: awake and alert Speech: speech normal Psych affect normal Results Lab / Micro Data Result Diagrams: 01/10/22 16:23 01/10/22 16:23 Labs: Laboratory Results - last 24 hr 01/10/22 16:23: WBC 4.9, RBC 3.44 L, Hgb 6.8 L, Hct 24.1 L, MCV 70.1 L, MCH 19.8 L, MCHC 28.2 L, RDW Std Deviation 44.8 H, RDW Coeff of Negar 18.0 H, Plt Count 345, MPV 9.2, Immature Gran % (Auto) 0.200, Neut % (Auto) 53.2, Lymph % (Auto) 28.5, Motley % (Auto) 13.8 H, Eos % (Auto) 3.3, Baso % (Auto) 1.0, Absolute Neuts (auto) 2.6, Absolute Lymphs (auto) 1.38, Nucleated RBC % 0 01/10/22 16:23: Sodium 137, Potassium 3.5, Chloride 106, Carbon Dioxide 23.0, Anion Gap 8, BUN 13, Creatinine 0.84, Estim Creat Clear Calc 68.09, Est GFR (MDRD) Af Amer 91, Est GFR (MDRD) Non-Af 75, BUN/Creatinine Ratio 15.5, Glucose 147 H, Calcium 8.8, Troponin I High Sens 20 01/10/22 18:10: Crossmatch See Detail Radiology Impression Chest CTA 01/10/22 16:27 IMPRESSION: 1. No evidence of pulmonary embolus. 2. No aortic dissection or aneurysm. 3. Diffuse groundglass pulmonary infiltrates most marked at the lung bases. 4. Cardiomegaly with coronary artery calcifications. 5. Mediastinal and axillary lymphadenopathy, not present on the prior examination.. Electronically Signed: Wesley Sy DO at 17:49 EDT Reading Location ID and State: [address] [place] [address] Tel [phone], Service support , Assessment & Plan Assessment/Plan (1) Shortness of breath: PLAN: Plan 1. Acute anemia-type unknown, etiology unknown-patient will be admitted to PCU, she will be transfused 2 units of packed red blood cells, I will obtain serum iron studies on the patient, she will undergo an EGD and a colonoscopy tomorrow, gastroenterology will be consulted. #2 hypoxia secondary to #1-patient needs minimal oxygen at this time via nasal cannula, I do not know of the significance of the groundglass appearance on the patient's CTA of her chest, her COVID antigen test was negative and she has no symptoms of COVID. #3 essential hypertension-patient will remain on her present medications #4 type 2 diabetes-patient's blood sugars will be monitored, sliding scale insulin will be used #5 hypothyroidism-patient will remain on her home thyroid medication #6 past history of thyroid cancer #7 hyperlipidemia-patient is on atorvastatin #8 GERD-patient is currently on omeprazole, she will remain on a PPI Charges/Coding Visit Charges Inpatient E&M: 57014 Init Hosp L3
[2022-01-10 18:34] LABS: Reflex Troponin-HS? (from REC) Y
[2022-01-10 19:27] LABS: Ferritin 9 ng/mL (8-252); Iron 14 ug/dL (50-170); Iron Binding Capacity,Total 347 ug/dL (250-450); Troponin-I HS 23 pg/mL (3.0-54.0)
[2022-01-10] MEDS: Heparin Injection (Vial) 5,000 UNIT/ML VIAL 5000 UNIT SC (21:36)
[2022-01-10] MEDS: Atorvastatin Calcium 40 MG Tablet PO (21:38)
[2022-01-10] MEDS: 0.9% Saline Lock 10 ML Syringe IV (21:40)
--- NOTE | 2022-01-10 22:15 | NURSING ---
pt requested to be off oxygen for the night. She is satting 97-98 on 2L, and 93-94% on RA.
[2022-01-11] VITALS (19 sets, daily range): BP systolic 155–194; BP diastolic 57–89; PULSE 63–88; RESP 16–18; TEMP 36.4–36.8; O2SAT 92–98; BMI 38.5
[2022-01-11] MEDS: hydrALAZINE 20 MG/ML Vial 10 MG IV ×3 (00:19→16:44)
[2022-01-11] MEDS: 0.9% Saline Lock 10 ML Syringe IV ×3 (00:20→18:12)
[2022-01-11 00:50] LABS: Bedside Glucose 119 mg/dL (74-106)
--- NOTE | 2022-01-11 05:41 | RAD_ITS ---
EXAM: XR CHEST, 1 VIEW CLINICAL INDICATION: EGD and colonoscopy TECHNIQUE: Frontal view of the chest. This report was created using [employer] report generation technology. COMPARISON: XR Chest dated 05/08/2019 FINDINGS: LUNGS AND PLEURAL SPACES: Pulmonary venous congestion. No pneumothorax. No effusion. HEART: Stable mild cardiomegaly. MEDIASTINUM: Central airways are unremarkable. No mediastinal or hilar mass. BONES/JOINTS: No acute abnormality. SOFT TISSUES: Normal. RAD/Chest 1 View (Portable) IMPRESSION: Pulmonary venous congestion. Electronically Signed: Luis Fernando Perez MD at 7:48 EDT ,
--- NOTE | 2022-01-11 05:55 | EKG12_ITS ---
Test Reason : ADMISSION Blood Pressure : / mmHG Vent. Rate : 079 BPM Atrial Rate : 079 BPM P-R Int : 166 ms QRS Dur : 142 ms QT Int : 442 ms P-R-T Axes : 031 -12 008 degrees QTc Int : 506 ms Normal sinus rhythm Right bundle branch block Minimal voltage criteria for LVH, may be normal variant ( R in aVL ) Possible Inferior infarct , age undetermined Abnormal ECG When compared with ECG of 10-JAN-2022 16:35, MANUAL COMPARISON REQUIRED, DATA IS UNCONFIRMED Confirmed by JORGE SANDERSON, BLANCO ([id number]), assignment desk editor GABINO RAE ([id number]) on 01/13/2022 1:54:18 PM Referred By: ELROY Confirmed By:BLANCO PATEL MD
[2022-01-11 06:50] LABS: Bedside Glucose 117 mg/dL (74-106)
[2022-01-11 07:53] LABS: International Normalized Ratio 1.2; Prothrombin Time (Protime)PT. 15.1 SECONDS (11.7-14.9)
[2022-01-11 08:07] LABS: Anion Gap 8 (5-15); BUN 9 mg/dL (7-18); BUN/Creat Ratio 13.2 RATIO (10-20); Calcium,Total 8.7 mg/dL (8.5-10.1); Chloride 106 mmol/L (98-107); Creatinine, Serum 0.68 mg/dL (0.55-1.02); EST Glomerular Filtration Rate 95 mL/min (>60); Est Glom Filt Rate - Afr Amer 115 mL/min (>60); Estimated Creatinine Clearance 84.11 ml/min; Glucose 111 mg/dL (74-106); Hemoglobin A1c 5.9 % (3.8-5.6); Potassium 3.5 mmol/L (3.5-5.1); Sodium Level 136 mmol/L (136-145); Thyroid Stim Hormone (TSH) 0.72 uIU/mL (0.358-3.74)
[2022-01-11 08:44] LABS: Absolute Lymphocyte Count 1.27 X10^3/uL (0.83-4.51); Absolute Neutrophil Count 2.6 X10^3/uL (2.0-7.7); Basophil# 0.06 X10^3/uL; Basophil% 1.3 % (0-1); Eosinophil# 0.11 X10^3/uL; Eosinophils% 2.3 % (0-5); Hematocrit 28.5 % (37-47); Hemoglobin 8.7 g/dL (12.0-15.0); Lymphocyte # 1.27 X10^3/ul (0.83-4.51); Mean Corp Hgb Conc 30.5 g/dL (32-36); Mean Corpuscular Hgb 21.8 pg (27.0-32.0); Mean Corpuscular Volume 71.4 fL (81-99); Mean Platelet Vol. 9.6 fl (6.2-12.0); Monocyte# 0.64 X10^3/uL; Monocyte% 13.6 % (0-10); NRBC Flagged by Analyzer 0 % (0-5); Neutrophil # 2.63 X10^3/uL (2.7-7.7); Neutrophil % 55.8 % (47-70); Platelet Count 340 K/mm3 (150-450); RBC Distribution Width CV 18.2 % (11.6-14.6); RBC Distribution Width SD 46.2 fl (35.1-43.9); Red Blood Count 3.99 M/mm3 (4.2-5.4); White Blood Count 4.7 K/mm3 (4.4-11.0)
--- NOTE | 2022-01-11 08:53 | CASEMGMT ---
PHAM EVANS Assessment: Face to Face with pt for initial transition planning/care coordination assessment. RN NATHAN introduced self and role at [facility], pt voices understanding and consents to assessment. Pt is A/O x4 and answers all questions appropriately at this time. Pt sitting up in chair in no distress. Care providers, pharmacy, and demographics verified/updated. Admitting Dx: Acute Anemia, Hypoxia PCP:[facility]:Pt denies Preferred Pharmacy: [facility] Insurance: [facility] Community Plan Prescription Benefit: yes LW/HPOA: Pt denies having a LW/DPOA and denies need for info regarding AD. LNOK: Gracie Obrien, dtr; Danny Olea, son Living Arrangements: Pt lives alone in a mobile home with 3 steps to enter with a rail. Pt reports she is I in ADL's and denies concerns at home. Transportation: Pt drives self and denies concerns with transportation. DME/HHC/SNF: Pt has a BGM with sufficient supplies of strips and lancets. Pt also has sufficient supply of insulin and supplies. Pt denies any further DME or need for. Pt denies hx of HHC or SNF stays. Pt states no concerns with going home at time of dc. Pt states no further concerns/needs. CM to follow. Advised pt to ask CM if any further question/concerns/needs arise, voices understanding. Pt Goal: Home Plan: Home
[2022-01-11] MEDS: Heparin Injection (Vial) 5,000 UNIT/ML VIAL 5000 UNIT SC (09:05)
[2022-01-11] MEDS: amLODIPine 5 MG Tablet PO (09:06)
[2022-01-11] MEDS: Pantoprazole Sodium 40 MG Tablet PO (09:07)
--- NOTE | 2022-01-11 09:07 | PN.HOSP_ITS ---
Subjective Subjective Doing well, no issues overnight. She was transfused and her hemoglobin this morning is 8.7 up from 6.8. Unfortunately there is a miscommunication in terms of when to do the prep and so the prep that was post be done last night at 4 PM as scheduled to be done today at 4 PM therefore we will hopefully proceed with colonoscopy and EGD tomorrow morning Objective Data Objective Data Vital Signs: Vital Signs Temp Pulse Resp BP Pulse Ox O2 Del Method O2 Flow Rate 97.6 F L 84 18 168/76 H 94 Room Air 2 01/11/22 05:50 01/11/22 06:51 01/11/22 05:50 01/11/22 06:44 01/11/22 05:50 01/11/22 08:32 01/10/22 21:10 Oxygen Flow Rate (L/min) 2 Oxygen Delivery Method Room Air Weight: 231 lb 11.293 oz Body Mass Index (BMI) 38.5 Intake & Output: Intake and Output for Last 24 Hours 01/10/22 01/11/22 01/12/22 03:59 03:59 03:59 Intake Total 1060 / 1060 Balance 1060 / 1060 Lab / Micro Data Result Diagrams: 01/11/22 06:50 01/11/22 06:52 Labs: Laboratory Results - last 24 hr 01/10/22 16:23: WBC 4.9, RBC 3.44 L, Hgb 6.8 L, Hct 24.1 L, MCV 70.1 L, MCH 19.8 L, MCHC 28.2 L, RDW Std Deviation 44.8 H, RDW Coeff of Negar 18.0 H, Plt Count 345, MPV 9.2, Immature Gran % (Auto) 0.200, Neut % (Auto) 53.2, Lymph % (Auto) 28.5, Putnam % (Auto) 13.8 H, Eos % (Auto) 3.3, Baso % (Auto) 1.0, Absolute Neuts (auto) 2.6, Absolute Lymphs (auto) 1.38, Nucleated RBC % 0 01/10/22 16:23: Sodium 137, Potassium 3.5, Chloride 106, Carbon Dioxide 23.0, Anion Gap 8, BUN 13, Creatinine 0.84, Estim Creat Clear Calc 68.09, Est GFR (MDRD) Af Amer 91, Est GFR (MDRD) Non-Af 75, BUN/Creatinine Ratio 15.5, Glucose 147 H, Calcium 8.8, Troponin I High Sens 20 01/10/22 18:10: Blood Type O POSITIVE, Antibody Screen NEGATIVE, Crossmatch See Detail 01/10/22 19:00: Iron 14 L, TIBC 347, Iron Saturation 4.0 L, Ferritin 9, Troponin I High Sens 23 01/11/22 00:19: POC Glucose 119 H 01/11/22 05:54: POC Glucose 117 H 01/11/22 06:50: WBC 4.7, RBC 3.99 L, Hgb 8.7 L, Hct 28.5 L, MCV 71.4 L, MCH 21.8 L, MCHC 30.5 L D, RDW Std Deviation 46.2 H, RDW Coeff of Negar 18.2 H, Plt Count 340, MPV 9.6, Immature Gran % (Auto) 0.000, Neut % (Auto) 55.8, Lymph % (Auto) 27.0, Putnam % (Auto) 13.6 H, Eos % (Auto) 2.3, Baso % (Auto) 1.3 H, Absolute Neuts (auto) 2.6, Absolute Lymphs (auto) 1.27, Nucleated RBC % 0 01/11/22 06:52: PT 15.1 H, INR 1.2 01/11/22 06:52: Sodium 136, Potassium 3.5, Chloride 106, Carbon Dioxide 22.0, Anion Gap 8, BUN 9, Creatinine 0.68, Estim Creat Clear Calc 84.11, Est GFR (MDRD) Af Amer 115, Est GFR (MDRD) Non-Af 95, BUN/Creatinine Ratio 13.2, Glucose 111 H, Calcium 8.7, TSH 0.72 01/11/22 06:52: Hemoglobin A1c 5.9 H Radiography Diagnostic Testing: Radiology Impression Chest CTA 01/10/22 16:27 IMPRESSION: 1. No evidence of pulmonary embolus. 2. No aortic dissection or aneurysm. 3. Diffuse groundglass pulmonary infiltrates most marked at the lung bases. 4. Cardiomegaly with coronary artery calcifications. 5. Mediastinal and axillary lymphadenopathy, not present on the prior examination.. Electronically Signed: Wesley Sy DO at 17:49 EDT , Chest X-Ray 01/11/22 05:41 IMPRESSION: Pulmonary venous congestion. Electronically Signed: Luis Fernando ePrez MD at 7:48 EDT , Physical Exam Narrative General: Alert, Oriented x3, Cooperative, No apparent distress HEENT: Atraumatic, PERRLA, EOMI, Normocephalic Oral: Moist Mucosa Neck: Supple, No JVD Lungs: Clear to auscultation, Normal air movement, No rhonchi, No wheeze, No rales Cardiovascular: Regular rate, Regular Rhythm, Normal S1, Normal S2, No murmurs Abdomen: Soft, Non Tender, Non-Distended, No Hepato-splenomegaly Extremities: No edema, Capillary Refill Less than 3 Seconds Skin: No rashes, No breakdown Musculoskeletal: No Tenderness to Palpation of Joints or Extremities Neurological: Cranial nerves II-XII grossly intact, Motor Exam 5/5 strength throughout, Sensory exam intact to light touch and pain Psych/Mental Status: Normal Affect, Appropriate Assessment & Plan Assessment/Plan (1) Shortness of breath: PLAN: Plan 1. Iron deficiency anemia superimposed with possible GI bleed/GERD ? Continue with EGD and colonoscopy, she denies any dark stools or hematemesis ? CT of the chest for elevated D-dimer was negative for PE but does show bilateral groundglass opacities ? COVID antigen test was negative ? Iron studies show iron deficiency anemia with a low iron saturation and a low iron as well as a normal TIBC and a normal ferritin ? We will continue with iron supplementation part of the issue may be that she is on omeprazole but does not take vitamin C with her iron tablets therefore she is not absorbing as much iron she should be ? Her hypoxia has resolved and this was likely related to her anemia ? Continue with PPI 2. HTN/HLD ? Blood pressures are stable ? Continue with her home blood pressure and lipid medication ? Her blood pressures have been very elevated when she has been here therefore we will increase her Norvasc to 10 and start her on some Coreg. If we still need to to control her blood pressure, can start her on losartan. She states that lisinopril was causing her to cough. 3. DM2 ? Blood sugars are stable ? Sliding scale insulin and Accu-Cheks ? Make adjustments as necessary 4. Hypothyroidism ? Stable ? Continue with Synthroid ? This is due to a pain previous history of thyroid cancer DVT: SCDs Charges/Coding Visit Charges Inpatient E&M: 20501 Subs Hosp L2
[2022-01-11] MEDS: amLODIPine 10 MG Tablet PO (10:05)
[2022-01-11] MEDS: Carvedilol 6.25 MG Tablet PO ×2 (10:05→22:21)
[2022-01-11] MEDS: Acetaminophen 325 MG Tablet 650 MG PO ×2 (10:09→16:45)
[2022-01-11 11:35] LABS: Bedside Glucose 134 mg/dL (74-106)
[2022-01-11] MEDS: Bisacodyl 5 MG Tablet 20 MG PO (14:03)
[2022-01-11 16:32] LABS: Hematocrit 32.8 % (37-47); Hemoglobin 9.5 g/dL (12.0-15.0)
[2022-01-11] MEDS: Polyethylene Glycol 3350 BOWEL PREP PO (17:00)
[2022-01-11 17:10] LABS: Bedside Glucose 82 mg/dL (74-106)
[2022-01-11] MEDS: Ondansetron 4 MG/2 ML Vial IV (18:12)
[2022-01-11] MEDS: Atorvastatin Calcium 40 MG Tablet PO (22:21)
[2022-01-12] VITALS (11 sets, daily range): BP systolic 125–153; BP diastolic 64–82; PULSE 56–76; RESP 16–18; TEMP 36.5–37.4; O2SAT 92–97; BMI 38.5
[2022-01-12 02:55] LABS: Bedside Glucose 119 mg/dL (74-106)
[2022-01-12 05:03] LABS: Absolute Lymphocyte Count 1.17 X10^3/uL (0.83-4.51); Absolute Neutrophil Count 2.4 X10^3/uL (2.0-7.7); Basophil# 0.04 X10^3/uL; Basophil% 0.9 % (0-1); Eosinophil# 0.24 X10^3/uL; Eosinophils% 5.3 % (0-5); Hemoglobin 8.4 g/dL (12.0-15.0); Lymphocyte # 1.17 X10^3/ul (0.83-4.51); Lymphocyte % 25.9 % (19-41); Mean Corpuscular Hgb 20.8 pg (27.0-32.0); Mean Corpuscular Volume 71.8 fL (81-99); Mean Platelet Vol. 9.1 fl (6.2-12.0); Monocyte# 0.69 X10^3/uL; Monocyte% 15.3 % (0-10); NRBC Flagged by Analyzer 0 % (0-5); Neutrophil # 2.37 X10^3/uL (2.7-7.7); Neutrophil % 52.4 % (47-70); Platelet Count 321 K/mm3 (150-450); RBC Distribution Width CV 18.5 % (11.6-14.6); RBC Distribution Width SD 47.1 fl (35.1-43.9); Red Blood Count 4.04 M/mm3 (4.2-5.4); White Blood Count 4.5 K/mm3 (4.4-11.0)
[2022-01-12 05:13] LABS: International Normalized Ratio 1.2; Prothrombin Time (Protime)PT. 14.8 SECONDS (11.7-14.9)
[2022-01-12 05:14] LABS: Partial Thromboplast Time 35.4 Seconds (24.1-36.2)
[2022-01-12 05:16] LABS: Anion Gap 8 (5-15); BUN 12 mg/dL (7-18); BUN/Creat Ratio 13.1 RATIO (10-20); Calcium,Total 8.7 mg/dL (8.5-10.1); Chloride 105 mmol/L (98-107); Creatinine, Serum 0.91 mg/dL (0.55-1.02); EST Glomerular Filtration Rate 68 mL/min (>60); Est Glom Filt Rate - Afr Amer 82 mL/min (>60); Estimated Creatinine Clearance 62.85 ml/min; Glucose 109 mg/dL (74-106); Potassium 3.9 mmol/L (3.5-5.1); Sodium Level 135 mmol/L (136-145)
--- NOTE | 2022-01-12 05:16 | RAD_ITS ---
EXAM: XR CHEST, 1 VIEW CLINICAL INDICATION: egd colonoscopy TECHNIQUE: Frontal view of the chest. This report was created using Chloe [employer] Isabel report generation technology. COMPARISON: Previous chest radiograph of 01/11/2022. FINDINGS: LUNGS AND PLEURAL SPACES: Current film is relatively expiratory with crowding of the bronchovascular markings. No acute pulmonary infiltrates or pleural effusion; no pneumonia or pulmonary edema identified. No pneumothorax. HEART: Heart size remains enlarged with continued pulmonary venous hypertension, unchanged allowing for the lesser degree of inspiration. MEDIASTINUM: Thoracic aorta remains mildly elongated. BONES/JOINTS: No acute osseous abnormality. SOFT TISSUES: Large body habitus. UPPER ABDOMEN: No pneumoperitoneum is noted. RAD/Chest 1 View (Portable) IMPRESSION: No significant interval change when allowing for a lesser degree of inspiration. Electronically Signed: Mendez Sullivan MD at 5:42 EDT ,
[2022-01-12 05:26] LABS: Thyroid Stim Hormone (TSH) 1.06 uIU/mL (0.358-3.74)
--- NOTE | 2022-01-12 05:55 | EKG12_ITS ---
Test Reason : AM EKG Blood Pressure : / mmHG Vent. Rate : 065 BPM Atrial Rate : 065 BPM P-R Int : 152 ms QRS Dur : 140 ms QT Int : 458 ms P-R-T Axes : 023 -11 -05 degrees QTc Int : 476 ms Normal sinus rhythm Right bundle branch block Possible Inferior infarct , age undetermined Abnormal ECG When compared with ECG of 11-JAN-2022 07:56, MANUAL COMPARISON REQUIRED, DATA IS UNCONFIRMED Confirmed by JORGE SANDERSON, BLANCO ([id number]), electronic news gathering editor GABINO RAE ([id number]) on 01/13/2022 1:53:22 PM Referred By: Confirmed By:BLANCO PATEL MD
[2022-01-12 07:06] LABS: Bedside Glucose 122 mg/dL (74-106)
--- NOTE | 2022-01-12 07:50 | IMM_PTH ---
PATIENT: JESUS ZEPEDA LOC: [facility] U#:[id number] AGE/SX: 56/F ROOM: [facility] RE01/10/[address]: Dr. Dexter Millard MD : 1965 BED: 1 DIS: 01/12/2022 SPEC #: [id number] RECD: 01/13/22 09:22 STATUS: PATRICIA MULLINS #: [id number] STACY: 01/12/22 07:[address]: Jesús De La Fuente DEPT: IMMUNOHISTOCHEMISTRY RECD BY: Palak Huitron ENTERED: 01/13/22 09:23 SP TYPE: IMMUNO OTHR DR: DO Dr. Dexter Anne MD Dr. William Lago, MD Tissues: Stomach, NOS Procedures: H Pylori (initial) PHYSICIAN & INSTITUTION [place] [id number] SPECIMEN INFORMATION: Tissue Source: Gastric body biopsy Clinical Info: Joshua Specimen Number: [id number] CPT code: 18990 METHODOLOGY: Deparaffinized sections of prefer/formalin-fixed tissue or PAP/DQ stained slides are incubated with monoclonal/polyclonal antibodies/oligonucleotide probes. Localization is made via biotin free immunoperoxidase method. Appropriate controls are performed and reacted as expected. Results on target cell population are indicated in the following table: RESULTS: ANTIBODY / CLONE RESULT H Pylori (polyclonal) negative These tests were developed and their performance characteristics determined by [facility]. They may not have been cleared or approved by the U.S. Food and Drug Administration. The FDA has determined that such clearance or approval is not necessary. The above immunohistochemical/dualISH markers are ordered and reviewed by the Pathologist. INTERPRETATION: Gastric body, biopsy: Negative for Helicobacter pylori organisms. SJ:andreia 01/14/2022
--- NOTE | 2022-01-12 07:50 | EGD_PTH ---
PATIENT: JESUS ZEPEDA LOC: [facility] U#:[id number] AGE/SX: 56/F ROOM: [facility] RE01/10/[address]: Dr. Dexter Millard MD : 1965 BED: 1 DIS: 01/12/2022 SPEC #: [id number] RECD: 01/12/22 08:51 STATUS: PATRICIA MULLINS #: [id number] STACY: 01/12/22 07:[address]: Jesús De La Fuente DEPT: SURGICAL PATHOLOGY RECD BY: Yessica Mcmahon ENTERED: 01/13/22 07:56 SP TYPE: EGD BIOPSY OTHR DR: DO Dr. Dexter Anne MD Dr. William Lago, MD Tissues: Gastric mucous membrane Procedures: Surgery Specimen Level IV HEADER OPERATION: Colonoscopy, EGD (MAC) PRE-OP DIAGNOSIS: Anemia TISSUE SUBMITTED: Biopsy gastric body (gastritis) MICROSCOPIC DIAGNOSIS Gastric body, biopsy: Moderate gastritis. See microscopic description and comment. BOBBI:andreia 01/14/2022 COMMENT The results of immunohistochemistry for Helicobacter pylori will be reported separately ([id number]). MICROSCOPIC DESCRIPTION Slides are reviewed. The specimen shows fragments of gastric mucosa with chronic inflammatory cell infiltrates in the lamina propria consisting of lymphocytes and plasma cells, consistent with moderate chronic gastritis. GROSS DESCRIPTION Received in fixative is one container labeled with the patient's name and designated gastric body. The specimen consists of two irregular fragments of light martinez soft tissue that in aggregate measure 0.6 x 0.4 x 0.1 cm. The specimen is totally submitted in one cassette. / BOBBI:andreia 01/13/2022 TC:3 CPT: 60333
--- NOTE | 2022-01-12 08:48 | PCM.CONS.GEN ---
Assessment & Plan Assessment/Plan (1) Anemia requiring transfusions: PLAN: The differential diagnosis for chronic anemia would be peptic ulcer disease, angiodysplasia, telangiectasia, neoplasia involving the GI tract. She should undergo an upper and lower endoscopy. She was explained alternatives, risk, benefits including not withstanding bleeding, infection, sepsis, perforation, need for emergent . She will have an ASA of 3. If her upper and lower endoscopy are negative then she will need a capsule endoscopy and biochemical work-up for iron deficiency anemia. HPI Consult Data Date of Consult: 01/10/22 HPI Narrative Reason for Consultation: Anemia HPI Narrative: JESUS ZEPEDA, is a 56 F who presents? to the emergency room at [facility] after being sent in by her PCP due to complaints of shortness of breath and an abnormal D-dimer that was obtained as an outpatient.? Patient had a past history of pulmonary embolism a few years ago. Her work-up in the emergency room included labs which revealed the patient to be anemic with a hemoglobin of 6.8, chemistry profile was unremarkable except for glucose of 147.? Patient had a CTA done of her chest which showed bilateral lower lobe groundglass appearance at the lung bases, no evidence of a PE was noted. She has never had an endoscopic procedure. She does have a history of gastroesophageal reflux disease, hypertension, diabetes mellitus and hypothyroidism. All other 16 review of systems are negative except those pertinent positive mentioned HPI. [facility] Medical History Abdominal pain Anxiety Arthritis Asthma Asthma Depression Dietary restriction Easy bruising Gastric reflux High cholesterol History of edema History of pain when walking HTN (hypertension) Hyperlipidemia Hypertension Hypothyroid Insulin dependent diabetes mellitus Leg cramps Low iron Migraines Nausea Non-smoker Postoperative primary hypothyroidism Pulmonary embolism Restless legs Shortness of breath on exertion Thyroid cancer Type 2 diabetes mellitus Wears glasses Home Medications amlodipine 5 mg tablet 5 mg PO DAILY bp 04/06/13 [History Last Taken 01/10/22] insulin detemir U-100 100 unit/mL (3 mL) subcutaneous pen 74 units subcut QHS dm 04/06/13 [History Last Taken 01/09/22] saxagliptin 2.5 mg-metformin ER 1,000 mg tablet,extend release 24hr mp 1 tab PO BID diabetes 04/06/13 [History Last Taken 01/09/22] atorvastatin 40 mg tablet 40 mg PO QHS cholesterol 05/23/17 [History Last Taken 01/09/22] insulin lispro 100 unit/mL subcutaneous pen 16 unit subcut DAILY dm 05/23/17 [History Last Taken 01/10/22] insulin lispro 100 unit/mL subcutaneous cartridge 18 unit SQ 1200,2000 dm 11/29/18 [History Last Taken 01/09/22] ferrous sulfate 325 mg (65 mg iron) tablet (FeroSul) 325 mg PO BID supplement 05/30/21 [History Last Taken 01/10/22] levothyroxine 50 mcg tablet 50 mcg PO DAILY thyroid 10/17/21 [History Last Taken 01/10/22] omeprazole 40 mg capsule,delayed release 40 mg PO DAILY GERD 10/17/21 [History Last Taken 01/09/22] Allergy/AdvReac Type Severity Reaction Status Date / Time latex Allergy Rash Verified 10/17/21 14:53 lisinopril AdvReac Other Verified 10/17/21 14:53 Family History Aunt Breast cancer Father Diabetes Hypertension Heart disease Myocardial infarction Mother Diabetes Hypertension Surgical History History of esophagogastroduodenoscopy (EGD) History of laparoscopic cholecystectomy (~11/15/19) Hx of bilateral cataract extraction Hx of tubal ligation S/P partial thyroidectomy Social History Smoking Status: Never smoker ROS Constitutional Constitutional: Denies anorexia, change in weight, chills, fatigue, fever(s), night sweats or weakness Eyes Eyes: Denies blurry vision, change in vision, discharge from eye(s), double vision or eye pain ENT HEENT: Denies dysphagia or ear pain Cardiovascular Cardiovascular: Denies chest pain, claudication, edema, lightheadedness, orthopnea or palpitations Respiratory/Chest Respiratory/Chest: Reports dyspnea and shortness of breath with exertion; Denies cough, hemoptysis, productive cough or shortness of breath at rest Gastrointestinal Gastrointestinal: Denies abdominal pain, constipation, diarrhea, hematemesis, hematochezia, melena, nausea or vomiting Genitourinary Genitourinary: Denies dysuria, hematuria, urinary frequency, urinary hesitancy, urinary incontinence or urinary urgency Musculoskeletal Musculoskeletal: Denies back pain, joint pain, joint stiffness, joint swelling, myalgias or neck pain Neurologic Neurologic: Denies abnormal gait, abnormal speech, dizziness, focal weakness, headache(s), loss of vision, numbness, other visual disturbances, paresthesias, syncope or tingling Psychiatric Psychiatric: Denies anxiety, cognitive impairment, depression, irritability, mood swings or suicidal ideation Endocrine Endocrinology: Denies change in body appearance, cold intolerance, excessive sweating, heat intolerance, polydipsia or polyuria Hematologic/Lymphatic Hematologic/Lymphatic: Denies none, anemia, easy bleeding, easy bruising or lymphadenopathy Allergic/Immunologic Allergic/Immunologic: Denies rhinitis, urticaria, eczemia or asthma Physical Exam Narrative General: Alert, Oriented x3, Cooperative, No apparent distress HEENT: Atraumatic, PERRLA, EOMI, Normocephalic Oral: Moist Mucosa Neck: Supple, No JVD Lungs: Clear to auscultation, Normal air movement, No rhonchi, No wheeze, No rales Cardiovascular: Regular rate, Regular Rhythm, Normal S1, Normal S2, No murmurs Abdomen: Soft, Non Tender, Non-Distended, No Hepato-splenomegaly Extremities: No edema, Capillary Refill Less than 3 Seconds Skin: No rashes, No breakdown Musculoskeletal: No Tenderness to Palpation of Joints or Extremities Neurological: Cranial nerves II-XII grossly intact, Motor Exam 5/5 strength throughout, Sensory exam intact to light touch and pain Psych/Mental Status: Normal Affect, Appropriate Lab / Micro Data Result Diagrams: 01/12/22 04:53 01/12/22 04:53 Labs: Laboratory Results - last 24 hr 01/11/22 11:13: POC Glucose 134 H 01/11/22 16:20: Hgb 9.5 L, Hct 32.8 L 01/11/22 16:33: POC Glucose 82 01/12/22 00:22: POC Glucose 119 H 01/12/22 04:53: Sodium 135 L, Potassium 3.9, Chloride 105, Carbon Dioxide 22.0, Anion Gap 8, BUN 12, Creatinine 0.91, Estim Creat Clear Calc 62.85, Est GFR (MDRD) Af Amer 82, Est GFR (MDRD) Non-Af 68, BUN/Creatinine Ratio 13.1, Glucose 109 H, Calcium 8.7 01/12/22 04:53: WBC 4.5, RBC 4.04 L, Hgb 8.4 L, Hct 29.0 L, MCV 71.8 L, MCH 20.8 L, MCHC 29.0 L, RDW Std Deviation 47.1 H, RDW Coeff of Negar 18.5 H, Plt Count 321, MPV 9.1, Immature Gran % (Auto) 0.200, Neut % (Auto) 52.4, Lymph % (Auto) 25.9, [place]ckett % (Auto) 15.3 H, Eos % (Auto) 5.3 H, Baso % (Auto) 0.9, Absolute Neuts (auto) 2.4, Absolute Lymphs (auto) 1.17, Nucleated RBC % 0 01/12/22 04:53: PT 14.8, INR 1.2, APTT 35.4 01/12/22 04:53: TSH 1.06 01/12/22 05:58: POC Glucose 122 H Radiology Impression Chest X-Ray 01/12/22 05:16 IMPRESSION: No significant interval change when allowing for a lesser degree of inspiration. Electronically Signed: Mendez Sullivan MD at 5:42 EDT , Charges/Coding Visit Charges Inpatient E&M: 55459 Init Hosp L2
--- NOTE | 2022-01-12 08:58 | OP.EGD_ITS ---
Patient Name: Evelyn Olea Procedure Date: 01/12/2022 7:47 AM Date of : 1965 Age: 56 Procedure: Upper GI endoscopy Indications: Iron deficiency anemia Providers: Jesús De La Fuente DO Medicines: Monitored Anesthesia Care Patient Profile: This is a 56 year old female. Refer to note in patient chart for documentation of history and physical. Patient has symptoms. Complications: No immediate complications. Procedure: Pre-Anesthesia Assessment: - Prior to the procedure, a History and Physical was performed, and patient medications and allergies were reviewed. The patient is competent. The risks and benefits of the procedure and the sedation options and risks were discussed with the patient. All questions were answered and informed consent was obtained. Patient identification and proposed procedure were verified by the physician in the pre-procedure area. Mental Status Examination: alert and oriented. Airway Examination: normal oropharyngeal airway and neck mobility. Respiratory Examination: clear to auscultation. CV Examination: normal. Prophylactic Antibiotics: The patient does not require prophylactic antibiotics. Prior Anticoagulants: The patient has taken no previous anticoagulant or antiplatelet agents. ASA Grade Assessment: II - A patient with mild systemic disease. After reviewing the risks and benefits, the patient was deemed in satisfactory condition to undergo the procedure. The anesthesia plan was to use monitored anesthesia care (MAC). Immediately prior to administration of medications, the patient was re-assessed for adequacy to receive sedatives. The heart rate, respiratory rate, oxygen saturations, blood pressure, adequacy of pulmonary ventilation, and response to care were monitored throughout the procedure. The physical status of the patient was re-assessed after the procedure. After obtaining informed consent, the endoscope was passed under direct vision. Throughout the procedure, the patient's blood pressure, pulse, and oxygen saturations were monitored continuously. The colonoscope was introduced through the mouth, and advanced to the second part of duodenum. The upper GI endoscopy was accomplished without difficulty. The patient tolerated the procedure well. Scope In: 8:12:42 AM Scope Out: 8:16:08 AM Total Procedure Duration Time 0 hours 3 minutes 26 seconds Findings: A non-obstructing Schatzki ring was found in the distal esophagus. Diffuse severe inflammation with hemorrhage characterized by congestion (edema) and erythema was found in the gastric body, on the greater curvature of the stomach, on the lesser curvature of the stomach and in the gastric antrum. Biopsies were taken with a cold forceps for histology. Verification of patient identification for the specimen was done. Estimated blood loss was minimal. The second portion of the duodenum was normal. Biopsies were taken with a cold forceps for histology. Impression: - Non-obstructing Schatzki ring. - Chronic gastritis with hemorrhage. Biopsied. - Normal second portion of the duodenum. Biopsied. Recommendation: - Await pathology results. - Repeat upper endoscopy in 1 year for surveillance. - Return to GI clinic. - Continue present medications. Procedure Code(s): --- Professional --- 69466, Esophagogastroduodenoscopy, flexible, transoral; with biopsy, single or multiple CPT copyright 2017 [employer]. All rights reserved. The codes documented in this report are preliminary and upon airbrush artist technical review may be revised to meet current compliance requirements. Jesús De La Fuente DO 01/12/2022 8:57:22 AM This report has been signed electronically. Number of Addenda: 0 Note Initiated On: 01/12/2022 7:47 AM
--- NOTE | 2022-01-12 08:58 | OP.CCLET_ITS ---
01/12/2022 Riki Clark Re : Upper GI endoscopy procedure for Evelyn Olea Dear Amber This procedure was performed on Wednesday, January 12, 2022. My impressions and recommendations are as follows: Impressions : - Non-obstructing Schatzki ring. - Chronic gastritis with hemorrhage. Biopsied. - Normal second portion of the duodenum. Biopsied. Recommendations : - Await pathology results. - Repeat upper endoscopy in 1 year for surveillance. - Return to GI clinic. - Continue present medications. My findings are described in the full procedure note, which is enclosed. If I can be of further assistance, please feel free to contact me at . Sincerely, Jesús De La Fuente, 01/12/2022 8:57:22 AM This report has been signed electronically.
--- NOTE | 2022-01-12 09:00 | OP.COLON_ITS ---
Patient Name: Evelyn Olea Procedure Date: 01/12/2022 8:16 AM Date of : 1965 Age: 56 Procedure: Colonoscopy Indications: Iron deficiency anemia Providers: Jesús De La Fuente DO Medicines: Monitored Anesthesia Care Patient Profile: This is a 56 year old female. Refer to note in patient chart for documentation of history and physical. Patient has symptoms. Last Colonoscopy: none. The patient's first colonoscopy is today. Complications: No immediate complications. Procedure: Pre-Anesthesia Assessment: - Prior to the procedure, a History and Physical was performed, and patient medications and allergies were reviewed. The patient is competent. The risks and benefits of the procedure and the sedation options and risks were discussed with the patient. All questions were answered and informed consent was obtained. Patient identification and proposed procedure were verified by the physician in the pre-procedure area. Mental Status Examination: alert and oriented. Airway Examination: normal oropharyngeal airway and neck mobility. Respiratory Examination: clear to auscultation. CV Examination: normal. Prophylactic Antibiotics: The patient does not require prophylactic antibiotics. Prior Anticoagulants: The patient has taken no previous anticoagulant or antiplatelet agents. ASA Grade Assessment: II - A patient with mild systemic disease. After reviewing the risks and benefits, the patient was deemed in satisfactory condition to undergo the procedure. The anesthesia plan was to use monitored anesthesia care (MAC). Immediately prior to administration of medications, the patient was re-assessed for adequacy to receive sedatives. The heart rate, respiratory rate, oxygen saturations, blood pressure, adequacy of pulmonary ventilation, and response to care were monitored throughout the procedure. The physical status of the patient was re-assessed after the procedure. After I obtained informed consent, the scope was passed under direct vision. Throughout the procedure, the patient's blood pressure, pulse, and oxygen saturations were monitored continuously. The colonoscope was introduced through the anus and advanced to the terminal ileum. The colonoscopy was performed without difficulty. The patient tolerated the procedure well. The quality of the bowel preparation was good. Scope In: 8:19:17 AM Scope Withdrawal Time 0 hours 12 minutes 26 seconds Scope Out: 8:34:04 AM Total Procedure Duration Time 0 hours 14 minutes 47 seconds Findings: The perianal and digital rectal examinations were normal. Multiple small and large-mouthed diverticula were found in the recto-sigmoid colon and sigmoid colon. The exam was otherwise without abnormality on direct and retroflexion views. Impression: - Diverticulosis in the recto-sigmoid colon and in the sigmoid colon. - The examination was otherwise normal on direct and retroflexion views. - No specimens collected. Recommendation: - Discharge patient to home as per primary team. Follow-up as an outpatient for capsule endoscopy. - Resume previous diet. - Continue present medications. - Repeat colonoscopy in 10 years for screening purposes. Procedure Code(s): --- Professional --- 84197, Colonoscopy, flexible; diagnostic, including collection of specimen(s) by brushing or washing, when performed (separate procedure) CPT copyright 2017 [employer]. All rights reserved. The codes documented in this report are preliminary and upon pasting inspector review may be revised to meet current compliance requirements. Jesús De La Fuente DO 01/12/2022 9:00:22 AM This report has been signed electronically. Number of Addenda: 0 Note Initiated On: 01/12/2022 8:16 AM
--- NOTE | 2022-01-12 09:01 | OP.CCLET_ITS ---
01/12/2022 Riki Clark Re : Colonoscopy procedure for Evelyn Olea Dear Amber This procedure was performed on Wednesday, January 12, 2022. My impressions and recommendations are as follows: Impressions : - Diverticulosis in the recto-sigmoid colon and in the sigmoid colon. - The examination was otherwise normal on direct and retroflexion views. - No specimens collected. Recommendations : - Discharge patient to home as per primary team. Follow-up as an outpatient for capsule endoscopy. - Resume previous diet. - Continue present medications. - Repeat colonoscopy in 10 years for screening purposes. My findings are described in the full procedure note, which is enclosed. If I can be of further assistance, please feel free to contact me at . Sincerely, Jesús De La Fuente, 01/12/2022 9:00:22 AM This report has been signed electronically.
[2022-01-12] MEDS: amLODIPine 10 MG Tablet PO (09:37)
[2022-01-12] MEDS: Pantoprazole Sodium 40 MG Tablet PO (09:37)
[2022-01-12] MEDS: Carvedilol 6.25 MG Tablet PO (09:37)
[2022-01-12] MEDS: Insulin Lispro 100 UNIT/ML INSULN.PEN SC (11:19)
[2022-01-12 11:35] LABS: Bedside Glucose 190 mg/dL (74-106)
[2022-01-12 13:38] LABS: Hematocrit 32.4 % (37-47); Hemoglobin 9.4 g/dL (12.0-15.0)
--- NOTE | 2022-01-12 13:44 | DCINST_ITS ---
Discharge Instructions Diet Discharge Diet: Low fat / Low cholesterol and Carb Control Diet Activity Discharge Activity: Return to Normal Activity Dressing / Incision Call your doctor if you observe: Fever of 101 or Higher, Shortness of breath, Dizziness, Fainting spells, Swelling in the ankles, Chest pain and Increased palpitations (irregular heartbeat) Follow Up Care Test Results: Test results from this visit will be discussed in further detail at your follow- up appointment, if applicable. Discharge Plan Admission Admit Date/Time: 01/10/22 18:49 Attending Provider: Dexter Millard Primary Care Provider: Riki Clark Consulting Providers: Mukesh Ye Additional Instructions / Restrictions: Follow-up early next week with your PCP to obtain a CBC to monitor your anemia. Discharge Orders/Prescriptions Prescriptions: New carvedilol 6.25 mg Tablet 6.25 mg PO BID Qty: 60 0RF amlodipine 10 mg Tablet 10 mg PO DAILY Qty: 30 0RF ascorbic acid (vitamin C) [Vitamin C] 500 mg capsule, extended release 500 mg PO Q12H Qty: 60 0RF Rx Instructions: Take with Iron tablet sucralfate [Carafate] 1 gram tablet 1 g PO BID Qty: 60 0RF Continued omeprazole 40 mg capsule,delayed release(DR/EC) 40 mg PO DAILY insulin detemir U-100 100 UNITS/ML insulin pen 74 units SC QHS saxagliptin-metformin 1 EACH tablet, ER multiphase 24 hr 1 tab PO BID levothyroxine 50 mcg tablet 50 mcg PO DAILY atorvastatin 40 MG tablet 40 mg PO QHS insulin lispro 100 UNIT/ML insulin pen 16 unit SC DAILY Label Comments: 16 with breakfast and 18 with lunch and dinner insulin lispro 100 UNIT/ML cartridge 18 unit SQ 1200,2000 ferrous sulfate [FeroSul] 325 mg (65 mg iron) Tablet 325 mg PO BID Discontinued amlodipine 5 MG tablet 5 mg PO DAILY Referrals / Follow Up: Jesús De La Fuente DO [Med Staff - Active Staff] - Within 1 Month Riki Clark MD [Primary Care Provider] - Within 1 Week Disposition Disposition (needs filled in before D/C Order can be placed): Home, Self Care
--- NOTE | 2022-01-12 14:19 | DS.PCM_ITS ---
Providers Date of Admission: 01/10/22 Primary Care Physician: Dr. Riki Clark MD Consultations 01/10/22 18:59 Consult: Gastroenterology Routine Consulting Provider: [facility] Reason for Consult: Anemia EMERGENT Consult: No MD Notified: Yes Date Notified: 01/10/22 Time Notified: 18:51 Method of Notification: Verbal Reason For Visit: ACUTE ANEMIA, HYPOXIA Diagnosis Discharge Diagnosis (1) Anemia requiring transfusions: Status: Acute Code(s): D64.9 - Anemia, unspecified (2) Shortness of breath: Status: Acute Code(s): R06.02 - Shortness of breath Plan 1. Iron deficiency anemia superimposed with possible GI bleed/GERD ? Continue with EGD and colonoscopy, she denies any dark stools or hematemesis ? CT of the chest for elevated D-dimer was negative for PE but does show bilateral groundglass opacities ? COVID antigen test was negative ? Iron studies show iron deficiency anemia with a low iron saturation and a low iron as well as a normal TIBC and a normal ferritin ? We will continue with iron supplementation part of the issue may be that she is on omeprazole but does not take vitamin C with her iron tablets therefore she is not absorbing as much iron she should be ? Her hypoxia has resolved and this was likely related to her anemia ? Continue with PPI 2. HTN/HLD ? Blood pressures are stable ? Continue with her home blood pressure and lipid medication ? Her blood pressures have been very elevated when she has been here therefore we will increase her Norvasc to 10 and start her on some Coreg. If we still need to to control her blood pressure, can start her on losartan. She states that lisinopril was causing her to cough. 3. DM2 ? Blood sugars are stable ? Sliding scale insulin and Accu-Cheks ? Make adjustments as necessary 4. Hypothyroidism ? Stable ? Continue with Synthroid ? This is due to a pain previous history of thyroid cancer DVT: SCDs Medications at Discharge Home Medications insulin detemir U-100 100 unit/mL (3 mL) subcutaneous pen 74 units subcut QHS dm 04/06/13 saxagliptin 2.5 mg-metformin ER 1,000 mg tablet,extend release 24hr mp 1 tab PO BID diabetes 04/06/13 atorvastatin 40 mg tablet 40 mg PO QHS cholesterol 05/23/17 insulin lispro 100 unit/mL subcutaneous pen 16 unit subcut DAILY dm 05/23/17 insulin lispro 100 unit/mL subcutaneous cartridge 18 unit SQ 1200,2000 dm 11/29/18 ferrous sulfate 325 mg (65 mg iron) tablet (FeroSul) 325 mg PO BID supplement 05/30/21 levothyroxine 50 mcg tablet 50 mcg PO DAILY thyroid 10/17/21 omeprazole 40 mg capsule,delayed release 40 mg PO DAILY GERD 10/17/21 amlodipine 10 mg tablet 10 mg PO DAILY #30 tabs 01/12/22 ascorbic acid (vitamin C) 500 mg capsule,extended release (Vitamin C) 500 mg PO Q12H #60 caps 01/12/22 carvedilol 6.25 mg tablet 6.25 mg PO BID #60 tabs 01/12/22 sucralfate 1 gram tablet (Carafate) 1 g PO BID #60 tabs 01/12/22 Hospital Course Operations None Procedures Blood transfusion, Colonoscopy and EGD Summary of Care Provided Minutes Spent on Discharge: 38 Hospital Course: Per HPI: JESUS ZEPEDA, is a 56 F who presents to the emergency room at [facility] after being sent in by her PCP due to complaints of shortness of breath and an abnormal D-dimer that was obtained as an outpatient.? Patient had a past history of pulmonary embolism a few years ago. Work-up in the emergency room included labs which revealed the patient to be anemic with a hemoglobin of 6.8, chemistry profile was unremarkable except for glucose of 147.? Patient had a CTA done of her chest which showed bilateral lower lobe groundglass appearance at the lung bases, no evidence of a PE was noted. Patient required 2 L of oxygen to maintain her pulse ox above 90%. Patient will be admitted to PCU for acute anemia and hypoxia, I have contacted gastroenterology, they will perform an EGD and colonoscopy on the patient, patient denies ever having a colonoscopy. Hospital Course: 1.? Iron deficiency anemia superimposed with possible GI bleed/GERD ? She denies any dark stools or hematemesis ? CT of the chest for elevated D-dimer was negative for PE but does show bilateral groundglass opacities ? COVID antigen test was negative ? Iron studies show iron deficiency anemia with a low iron saturation and a low iron as well as a normal TIBC and a normal ferritin ? We will continue with iron supplementation part of the issue may be that she is on omeprazole but does not take vitamin C with her iron tablets therefore she is not absorbing as much iron she should be ? Her hypoxia has resolved and this was likely related to her anemia ? Continue with PPI ? Colonoscopy was unremarkable today however EGD demonstrated gastritis with signs of recent hemorrhage. Will continue with her home PPI but will also add Carafate. As terms of her iron deficiency, will also add vitamin C to her medications so she can absorb the iron better. I do recommend that she follow- up with her PCP next week to obtain outpatient CBC to monitor her anemia. She also need to follow-up with gastroenterology for outpatient monitoring as well as pathology results on the biopsies. I discussed with her the plan for discharge today she expressed understanding of the risks and benefits of is going home and would like to go home today. Recheck of her hemoglobin this afternoon demonstrated it rising to 9.4. 2.? HTN/HLD ? Blood pressures are stable ? Continue with her home blood pressure and lipid medication ? Her blood pressures have been very elevated when she has been here therefore we will increase her Norvasc to 10 and start her on Coreg 6.25 mg p.o. twice daily. This is led to an improvement in her blood pressures, will give her prescriptions for both the increase Norvasc as well as the Coreg and will have her follow-up with her PCP to monitor her blood pressure and make any further adjustments as necessary. 3.? DM2 ? Blood sugars are stable ? Sliding scale insulin and Accu-Cheks ? Make adjustments as necessary 4.? Hypothyroidism ? Stable ? Continue with Synthroid ? This is due to a pain previous history of thyroid cancer Physical Exam Narrative General: Alert, Oriented x3, Cooperative, No apparent distress HEENT: Atraumatic, PERRLA, EOMI, Normocephalic Oral: Moist Mucosa Neck: Supple, No JVD Lungs: Clear to auscultation, Normal air movement, No rhonchi, No wheeze, No rales Cardiovascular: Regular rate, Regular Rhythm, Normal S1, Normal S2, No murmurs Abdomen: Soft, Non Tender, Non-Distended, No Hepato-splenomegaly Extremities: No edema, Capillary Refill Less than 3 Seconds Skin: No rashes, No breakdown Musculoskeletal: No Tenderness to Palpation of Joints or Extremities Neurological: Cranial nerves II-XII grossly intact, Motor Exam 5/5 strength throughout, Sensory exam intact to light touch and pain Psych/Mental Status: Normal Affect, Appropriate Weight / BMI Weight Weight: 231 lb 11.293 oz Body Mass Index (BMI) 38.5 ABG / Lab / Microbiology Data Result Diagrams: 01/12/22 13:32 01/12/22 04:53 Laboratory: Laboratory Results - last 24 hr 01/11/22 16:20: Hgb 9.5 L, Hct 32.8 L 01/11/22 16:33: POC Glucose 82 01/12/22 00:22: POC Glucose 119 H 01/12/22 04:53: Sodium 135 L, Potassium 3.9, Chloride 105, Carbon Dioxide 22.0, Anion Gap 8, BUN 12, Creatinine 0.91, Estim Creat Clear Calc 62.85, Est GFR (MDRD) Af Amer 82, Est GFR (MDRD) Non-Af 68, BUN/Creatinine Ratio 13.1, Glucose 109 H, Calcium 8.7 01/12/22 04:53: WBC 4.5, RBC 4.04 L, Hgb 8.4 L, Hct 29.0 L, MCV 71.8 L, MCH 20.8 L, MCHC 29.0 L, RDW Std Deviation 47.1 H, RDW Coeff of Negar 18.5 H, Plt Count 321, MPV 9.1, Immature Gran % (Auto) 0.200, Neut % (Auto) 52.4, Lymph % (Auto) 25.9, [place] % (Auto) 15.3 H, Eos % (Auto) 5.3 H, Baso % (Auto) 0.9, Absolute Neuts (auto) 2.4, Absolute Lymphs (auto) 1.17, Nucleated RBC % 0 01/12/22 04:53: PT 14.8, INR 1.2, APTT 35.4 01/12/22 04:53: TSH 1.06 01/12/22 05:58: POC Glucose 122 H 01/12/22 11:15: POC Glucose 190 H 01/12/22 13:32: Hgb 9.4 L, Hct 32.4 L Radiography Diagnostic Testing: Radiology Impression Chest X-Ray 01/12/22 05:16 IMPRESSION: No significant interval change when allowing for a lesser degree of inspiration. Electronically Signed: Mendez Sullivan MD at 5:42 EDT , D/C Instructions Discharge Diet: Low fat / Low cholesterol and Carb Control Diet Call your doctor if you observe: Fever of 101 or Higher, Shortness of breath, Dizziness, Fainting spells, Swelling in the ankles, Chest pain and Increased palpitations (irregular heartbeat) Meaningful Use Info Meaningful Use Diagnoses (Choose all that apply): None applicable Discharge Plan Admission Admit Date/Time: 01/10/22 18:49 Attending Provider: Dexter Millard Primary Care Provider: Riki Clark Consulting Providers: Mukesh Ye Instructions Additional Instructions / Restrictions: Follow-up early next week with your PCP to obtain a CBC to monitor your anemia. Discharge Orders/Prescriptions Prescriptions: New carvedilol 6.25 mg Tablet 6.25 mg PO BID Qty: 60 0RF amlodipine 10 mg Tablet 10 mg PO DAILY Qty: 30 0RF ascorbic acid (vitamin C) [Vitamin C] 500 mg capsule, extended release 500 mg PO Q12H Qty: 60 0RF Rx Instructions: Take with Iron tablet sucralfate [Carafate] 1 gram tablet 1 g PO BID Qty: 60 0RF Continued omeprazole 40 mg capsule,delayed release(DR/EC) 40 mg PO DAILY insulin detemir U-100 100 UNITS/ML insulin pen 74 units SC QHS saxagliptin-metformin 1 EACH tablet, ER multiphase 24 hr 1 tab PO BID levothyroxine 50 mcg tablet 50 mcg PO DAILY atorvastatin 40 MG tablet 40 mg PO QHS insulin lispro 100 UNIT/ML insulin pen 16 unit SC DAILY Label Comments: 16 with breakfast and 18 with lunch and dinner insulin lispro 100 UNIT/ML cartridge 18 unit SQ 1200,2000 ferrous sulfate [FeroSul] 325 mg (65 mg iron) Tablet 325 mg PO BID Discontinued amlodipine 5 MG tablet 5 mg PO DAILY Referrals / Follow Up: Jesús De La Fuente DO [Med Staff - Active Staff] - Within 1 Month Riki Clark MD [Primary Care Provider] - Within 1 Week Disposition Disposition (needs filled in before D/C Order can be placed): Home, Self Care Charges/Coding Visit Charges Inpatient E&M: 76225 Disch Hosp
== END 2022-01-12 15:02 | disposition home or self-care (01) | DRG 811 ==
LOC: ED 18:10 → PCU 19:26
PROVIDERS: Anesthesiology; Internal Medicine Gastroenterology; Admitting Provider Internal Medicine; Emergency Provider Emergency Medicine; PCP Family Medicine; Visit Provider Family Medicine
PROC: 0DJD8ZZ Inspection of Lower Intestinal Tract, Via Natural or Artificial Opening Endoscopic (ICD-10-PCS; CPT 45378; principal; 2022-01-12 07:45)
DX: D50.9 Iron deficiency anemia, unspecified (principal); K29.51 Unspecified chronic gastritis with bleeding; E11.9 Type 2 diabetes mellitus without complications; Z79.4 Long term (current) use of insulin; K57.30 Diverticulosis of large intestine without perforation or abscess without bleeding; K21.9 Gastro-esophageal reflux disease without esophagitis; E78.00 Pure hypercholesterolemia, unspecified; I10 Essential (primary) hypertension; K22.2 Esophageal obstruction; E03.9 Hypothyroidism, unspecified; R09.02 Hypoxemia; R91.8 Other nonspecific abnormal finding of lung field; Z85.850 Personal history of malignant neoplasm of thyroid; Z86.711 Personal history of pulmonary embolism
CPT/HCPCS: 36415; 71045; 71275; 80048; 82728; 82962; 83036; 83540; 83550; 84443; 84484; 85014; 85018; 85025; 85379; 85610; 85730; 86850; 86900; 86901; 86920; 86922; 88305; 88342; 93005; 97802; 99285; P9016; Q9967; A4216; J2405

== ENCOUNTER → 2022-01-10 | Outpatient (CLI) | payer MEDICARE, MEDICAID, SELFPAY ==
[2022-01-10 13:02] LABS: D-Dimer Quantitative (DVT/PE) 1.21 FEU/ug/m (0.27-0.49)
== END | disposition home or self-care (01) ==
LOC: LABSPEC 12:34
PROVIDERS: PCP Family Medicine; Referring Provider Family Medicine; Visit Provider Family Medicine
DX: R06.02 Shortness of breath (principal)
CPT/HCPCS: 85379

== ENCOUNTER 2022-01-30 14:49 | Emergency (ER) | payer MEDICARE, MEDICAID, SELFPAY ==
[2022-01-30 14:51] VITALS: BP 184/94; PULSE 66; RESP 22; TEMP 36.4; O2SAT 94; BMI 38.1
[2022-01-30 15:18] VITALS: BP 119/58; PULSE 58; RESP 20; O2SAT 95
--- NOTE | 2022-01-30 15:24 | RAD_ITS ---
STUDY: X-RAY CHEST REASON FOR EXAM: Female, 56 years old. SOB TECHNIQUE: Single AP portable view of the chest. COMPARISON: Comparison is made with prior study dated 01/12/2022. FINDINGS: Mild degree of vascular congestion and CHF. There is no demonstrated pleural abnormality. There is borderline cardiomegaly. Normal mediastinum and luis enrique. Normal visualized pulmonary arteries. Normal visualized aortic arch and descending thoracic aorta. There are diffuse degenerative changes of the visualized thoracic spine. Normal visualized ribs, clavicles, and shoulders. There is no demonstrated abnormality of the visualized soft tissue structures of the upper abdomen. RAD/Chest 1 View (Portable) IMPRESSION: Mild degree of vascular congestion and CHF. Electronically Signed: David Burns MD at 15:34 EDT ,
[2022-01-30 15:29] LABS: Absolute Lymphocyte Count 1.52 X10^3/uL (0.83-4.51); Absolute Neutrophil Count 3.6 X10^3/uL (2.0-7.7); Basophil# 0.05 X10^3/uL; Basophil% 0.8 % (0-1); Eosinophils% 3.2 % (0-5); Hematocrit 27.8 % (37-47); Lymphocyte # 1.52 X10^3/ul (0.83-4.51); Lymphocyte % 24.4 % (19-41); Mean Corp Hgb Conc 28.8 g/dL (32-36); Mean Corpuscular Hgb 21.1 pg (27.0-32.0); Mean Corpuscular Volume 73.4 fL (81-99); Mean Platelet Vol. 8.8 fl (6.2-12.0); Monocyte# 0.89 X10^3/uL; Monocyte% 14.3 % (0-10); NRBC Flagged by Analyzer 0 % (0-5); Neutrophil # 3.55 X10^3/uL (2.7-7.7); POSITIVE MORPHOLOGY YES; Platelet Count 327 K/mm3 (150-450); RBC Distribution Width CV 22.1 % (11.6-14.6); RBC Distribution Width SD 54.5 fl (35.1-43.9); Red Blood Count 3.79 M/mm3 (4.2-5.4); White Blood Count 6.2 K/mm3 (4.4-11.0)
--- NOTE | 2022-01-30 15:37 | EDS_ITS ---
HPI History of Present Illness Chief Complaint: Shortness of Breath Narrative Narrative: Patient with past medical history of hypertension, diabetes, hypothyroidism states that she was released from the hospital a few weeks ago because she was anemic and received a blood transfusion. Over the last 3 days, she states she been short of breath. She denies any fevers or chills. No cough, no chest pain. She states that she just feels short of breath especially when she exerts herself. No pedal edema, she denies any bleeding diathesis. [facility] Medical History Abdominal pain Anxiety Arthritis Asthma Asthma Depression Dietary restriction Easy bruising Gastric reflux High cholesterol History of edema History of pain when walking HTN (hypertension) Hyperlipidemia Hypertension Hypothyroid Insulin dependent diabetes mellitus Leg cramps Low iron Migraines Nausea Non-smoker Postoperative primary hypothyroidism Pulmonary embolism Restless legs Shortness of breath on exertion Thyroid cancer Type 2 diabetes mellitus Wears glasses Home Medications insulin detemir U-100 100 unit/mL (3 mL) subcutaneous pen 74 units subcut QHS dm 04/06/13 [History Last Taken 01/09/22] saxagliptin 2.5 mg-metformin ER 1,000 mg tablet,extend release 24hr mp 1 tab PO BID diabetes 04/06/13 [History Last Taken 01/09/22] atorvastatin 40 mg tablet 40 mg PO QHS cholesterol 05/23/17 [History Last Taken 01/09/22] insulin lispro 100 unit/mL subcutaneous pen 16 unit subcut DAILY dm 05/23/17 [History Last Taken 01/10/22] insulin lispro 100 unit/mL subcutaneous cartridge 18 unit SQ 1200,2000 dm 11/29/18 [History Last Taken 01/09/22] ferrous sulfate 325 mg (65 mg iron) tablet (FeroSul) 325 mg PO BID supplement 05/30/21 [History Last Taken 01/10/22] levothyroxine 50 mcg tablet 50 mcg PO DAILY thyroid 10/17/21 [History Last Taken 01/10/22] omeprazole 40 mg capsule,delayed release 40 mg PO DAILY GERD 10/17/21 [History Last Taken 01/09/22] amlodipine 10 mg tablet 10 mg PO DAILY #30 tabs 01/12/22 [Rx Last Taken Unknown] ascorbic acid (vitamin C) 500 mg capsule,extended release (Vitamin C) 500 mg PO Q12H #60 caps 01/12/22 [Rx Last Taken Unknown] carvedilol 6.25 mg tablet 6.25 mg PO BID #60 tabs 01/12/22 [Rx Last Taken Unknown] sucralfate 1 gram tablet (Carafate) 1 g PO BID #60 tabs 01/12/22 [Rx Last Taken Unknown] Allergy/AdvReac Type Severity Reaction Status Date / Time latex Allergy Rash Verified 01/30/22 14:53 lisinopril AdvReac Other Verified 01/30/22 14:53 Family History Aunt Breast cancer Father Diabetes Hypertension Heart disease Myocardial infarction Mother Diabetes Hypertension Surgical History History of esophagogastroduodenoscopy (EGD) History of laparoscopic cholecystectomy (~11/15/19) Hx of bilateral cataract extraction Hx of tubal ligation S/P partial thyroidectomy Social History Smoking Status: Never smoker ROS ROS ED ROS Narrative Constitutional: No fever, no chills. HEENT: No sore throat. No neck pain. No loss of vision. No rhinorrhea. Cardiovascular: No chest pain. No palpitations. No pedal edema. Respiratory: No cough, positive dyspnea on exertion and shortness of breath for the last few days. Abdominal: No abdominal pain. No nausea. No vomiting. Genitourinary: No dysuria. No hematuria. Musculoskeletal: No myalgias. No arthralgias. Neurologic: No headaches. No dizziness. No lightheadedness. Skin: No rash. No change in color. Psychiatric: No depression. No anxiety. EXAM Physical Exam Narrative Exam Narrative: Afebrile. Vital signs noted. HEENT: Normocephalic. Atraumatic. PERRL, EOMI. Neck soft and supple. No point tenderness or step off. Cardiovascular: Regular rate and rhythm. No murmurs, rubs, or gallops appreciated. Respiratory: No tachypnea. Lungs clear to auscultation bilaterally with occasional bibasilar rales. Gastrointestinal: Abdomen soft, nontender, with normoactive bowel sounds. No rebound or guarding. Neurological: Awake. Alert. Nonfocal, nonlateralizing. Skin: No rash. Normal color. No pallor. Musculoskeletal: No pedal edema. Full range of motion extremities. Const Vital Signs: 01/30/22 14:51 01/30/22 15:16 01/30/22 15:18 Temperature 97.6 F L Temperature Source Temporal Pulse Rate 66 58 L Respiratory Rate 22 H 20 H Respiratory Effort Short of Breath Blood Pressure 184/94 H 119/58 L Blood Pressure Mean 124 78 Pulse Ox 94 95 Oxygen Delivery Method Room Air Room Air 01/30/22 17:59 Temperature Temperature Source Pulse Rate 68 Respiratory Rate 18 Respiratory Effort Blood Pressure 171/66 H Blood Pressure Mean 101 Pulse Ox 97 Oxygen Delivery Method Room Air MDM MDM MDM Narrative Medical decision making narrative: Initial protocol was instituted. Chest x-ray interpreted by myself shows no evidence of infiltrate or pneumothorax. There may be mild degree of CHF according to radiology. CBC and basic metabolic panel and BNP are currently pending. In review of her chart, she also does have history of asthma. Her pulse ox is normal at 95% on room air. She has normal white count of 6.2, chronic anemia with hemoglobin stable at 8.0, normal platelet count of 327. Electrolyte panel shows BUN of 22 with a creatinine of 1.0. Her BNP is normal at 61.8. EKG interpreted by myself demonstrates sinus bradycardia at 56 bpm without ectopy or acute ST changes. At this point in time, I feel she can be discharged safely home with follow-up to her primary care provider. Return instructions were reviewed. Disposition is discharged home in stable condition. Lab Data Attestation: I reviewed the patient's lab results. Labs: Laboratory Results - last 24 hr 01/30/22 01/30/22 01/30/22 15:12 15:12 15:21 WBC 6.2 RBC 3.79 L Hgb 8.0 L Hct 27.8 L MCV 73.4 L MCH 21.1 L MCHC 28.8 L RDW Std Deviation 54.5 H RDW Coeff of Negar 22.1 H Plt Count 327 MPV 8.8 Immature Gran % (Auto) 0.300 Neut % (Auto) 57.0 Lymph % (Auto) 24.4 Summers % (Auto) 14.3 H Eos % (Auto) 3.2 Baso % (Auto) 0.8 Absolute Neuts (auto) 3.6 Absolute Lymphs (auto) 1.52 Nucleated RBC % 0 Differential Comment SCANNED Hypochromasia 1+ Anisocytosis 1+ Sodium 136 Potassium 4.2 Chloride 104 Carbon Dioxide 25.0 Anion Gap 7 BUN 22 H Creatinine 1.00 Estim Creat Clear Calc 57.20 Est GFR (MDRD) Af Amer 74 Est GFR (MDRD) Non-Af 61 BUN/Creatinine Ratio 22.0 H Glucose 107 H Calcium 8.8 B-Natriuretic Peptide 61.8 Radiography Diagnostic Testing: Clinical Impression(s) from Imaging Studies Chest X-Ray 01/30/22 15:24 IMPRESSION: Mild degree of vascular congestion and CHF. Electronically Signed: David Burns MD at 15:34 EDT , Discharge Plan Triage Chief Complaint: Shortness of Breath Other Complaint: Abd Pain ED Provider: Nick Gómez Dx/Rx/DC Orders Clinical Impression: Shortness of breath, SHEIHK (dyspnea on exertion) Prescriptions: No Action omeprazole 40 mg capsule,delayed release(DR/EC) 40 mg PO DAILY insulin detemir U-100 100 UNITS/ML insulin pen 74 units SC QHS saxagliptin-metformin 1 EACH tablet, ER multiphase 24 hr 1 tab PO BID levothyroxine 50 mcg tablet 50 mcg PO DAILY atorvastatin 40 MG tablet 40 mg PO QHS insulin lispro 100 UNIT/ML insulin pen 16 unit SC DAILY Label Comments: 16 with breakfast and 18 with lunch and dinner insulin lispro 100 UNIT/ML cartridge 18 unit SQ 1200,2000 ferrous sulfate [FeroSul] 325 mg (65 mg iron) Tablet 325 mg PO BID carvedilol 6.25 mg Tablet 6.25 mg PO BID Qty: 60 0RF amlodipine 10 mg Tablet 10 mg PO DAILY Qty: 30 0RF ascorbic acid (vitamin C) [Vitamin C] 500 mg capsule, extended release 500 mg PO Q12H Qty: 60 0RF Rx Instructions: Take with Iron tablet sucralfate [Carafate] 1 gram tablet 1 g PO BID Qty: 60 0RF Primary Care Provider: Riki Clark Referrals: Riki Clark MD [Primary Care Provider] - As soon as possible Disposition Disposition: Home, Self Care
[2022-01-30 15:43] LABS: Anion Gap 7 (5-15); BUN 22 mg/dL (7-18); Calcium,Total 8.8 mg/dL (8.5-10.1); Chloride 104 mmol/L (98-107); EST Glomerular Filtration Rate 61 mL/min (>60); Est Glom Filt Rate - Afr Amer 74 mL/min (>60); Glucose 107 mg/dL (74-106); Potassium 4.2 mmol/L (3.5-5.1); Sodium Level 136 mmol/L (136-145)
[2022-01-30 16:23] LABS: Anisocytosis 1+; Differential Comment SCANNED; Differential Indicated SCAN CRITERIA MET; Hypochromasia 1+
[2022-01-30 17:59] VITALS: BP 171/66; PULSE 68; RESP 18; O2SAT 97
[2022-01-30 18:26] LABS: BNP,B-Type NATRIURETIC PEPTIDE 61.8 pg/mL (0-100)
== END 2022-01-30 18:34 | disposition home or self-care (01) ==
PROVIDERS: Emergency Provider Emergency Medicine; PCP Family Medicine; Visit Provider Emergency Medicine
DX: R06.02 Shortness of breath (principal); E11.9 Type 2 diabetes mellitus without complications; Z79.4 Long term (current) use of insulin; D64.9 Anemia, unspecified; E78.5 Hyperlipidemia, unspecified; E78.00 Pure hypercholesterolemia, unspecified; R00.1 Bradycardia, unspecified; R06.09 Other forms of dyspnea; I10 Essential (primary) hypertension
CPT/HCPCS: 71045; 80048; 83880; 85025; 87811; 93005; 99282; A4216

== ENCOUNTER 2022-02-07 11:40 | Emergency (ER) | payer MEDICARE, MEDICAID, SELFPAY ==
[2022-02-07 11:41] VITALS: BP 185/114; PULSE 66; RESP 20; TEMP 36.1; O2SAT 95; BMI 37.4
--- NOTE | 2022-02-07 12:13 | EDS_ITS ---
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 Reports 3 months of dyspnea. She was seen 8 days in the ED negative COVID testing. Since then over the weekend over 5 days ago cough sinus congestion. No fevers or headache no myalgias no vomiting or diarrhea. History of hypertension diabetes. She is vaccinated for COVID. She has not had COVID in the past. Reported her boss was concerned for pneumonia. She reports occasional wheezing at home. [facility] Medical History Abdominal pain Anxiety Arthritis Asthma Asthma Depression Dietary restriction Easy bruising Gastric reflux High cholesterol History of edema History of pain when walking HTN (hypertension) Hyperlipidemia Hypertension Hypothyroid Insulin dependent diabetes mellitus Leg cramps Low iron Migraines Nausea Non-smoker Postoperative primary hypothyroidism Pulmonary embolism Restless legs Shortness of breath on exertion Thyroid cancer Type 2 diabetes mellitus Wears glasses Home Medications insulin detemir U-100 100 unit/mL (3 mL) subcutaneous pen 74 units subcut QHS dm 04/06/13 [History Last Taken 01/09/22] saxagliptin 2.5 mg-metformin ER 1,000 mg tablet,extend release 24hr mp 1 tab PO BID diabetes 04/06/13 [History Last Taken 01/09/22] atorvastatin 40 mg tablet 40 mg PO QHS cholesterol 05/23/17 [History Last Taken 01/09/22] insulin lispro 100 unit/mL subcutaneous pen 16 unit subcut DAILY dm 05/23/17 [History Last Taken 01/10/22] insulin lispro 100 unit/mL subcutaneous cartridge 18 unit SQ 1200,2000 dm 11/29/18 [History Last Taken 01/09/22] ferrous sulfate 325 mg (65 mg iron) tablet (FeroSul) 325 mg PO BID supplement 05/30/21 [History Last Taken 01/10/22] levothyroxine 50 mcg tablet 50 mcg PO DAILY thyroid 10/17/21 [History Last Taken 01/10/22] omeprazole 40 mg capsule,delayed release 40 mg PO DAILY GERD 10/17/21 [History Last Taken 01/09/22] amlodipine 10 mg tablet 10 mg PO DAILY #30 tabs 01/12/22 [Rx Last Taken Unknown] ascorbic acid (vitamin C) 500 mg capsule,extended release (Vitamin C) 500 mg PO Q12H #60 caps 01/12/22 [Rx Last Taken Unknown] carvedilol 6.25 mg tablet 6.25 mg PO BID #60 tabs 01/12/22 [Rx Last Taken Unknown] sucralfate 1 gram tablet (Carafate) 1 g PO BID #60 tabs 01/12/22 [Rx Last Taken Unknown] albuterol sulfate 90 mcg/actuation aerosol inhaler (Ventolin HFA) 1 - 2 puff inhalation Q4H PRN PRN Wheezing ##1 02/07/22 [Rx Last Taken Unknown] Allergy/AdvReac Type Severity Reaction Status Date / Time latex Allergy Rash Verified 01/30/22 14:53 lisinopril AdvReac Other Verified 01/30/22 14:53 Family History Aunt Breast cancer Father Diabetes Hypertension Heart disease Myocardial infarction Mother Diabetes Hypertension Surgical History History of esophagogastroduodenoscopy (EGD) History of laparoscopic cholecystectomy (~11/15/19) Hx of bilateral cataract extraction Hx of tubal ligation S/P partial thyroidectomy Social History Smoking Status: Never smoker ROS ROS ED Constitutional Constitutional ED: Denies chills, fever(s) or sweats Eyes Eyes: Denies change in vision ENT ENT ED: Reports rhinorrhea; Denies dysphagia or sore throat Cardiovascular Cardiovascular: Denies chest pain, leg edema, palpitations or racing heartbeat Respiratory/Chest Respiratory/Chest: Reports cough; Denies dyspnea or dyspnea on exertion Gastrointestinal Gastrointestinal: Denies abdominal pain, diarrhea, nausea or vomiting Genitourinary Genitourinary ED: Denies dysuria, hematuria or urinary frequency Musculoskeletal Musculoskeletal: Denies back pain, extremity pain or neck pain Integumentary Denies rash or wounds Neurologic Neurologic: Denies headache(s), paresthesias or weakness EXAM Physical Exam Const Vital Signs: 02/07/22 11:41 02/07/22 12:32 Temperature 97 F L Temperature Source Temporal Pulse Rate 66 Respiratory Rate 20 H Respiratory Effort Normal Respiratory Depth Normal Respiratory Pattern Normal Blood Pressure 185/114 H Blood Pressure Mean 137 Pulse Ox 95 Oxygen Delivery Method Room Air Room Air Positive well nourished and well developed General Appearance ED: well developed and NAD HEENT Reports moist mucous membranes normocephalic and atraumatic Eyes PERRL, EOMs intact bilaterally and conjunctivae normal General Eye ED: Yes normal appearance of both eyes Neck no lymphadenopathy and supple General: Negative for tenderness Chest Wall Chest: Negative for tenderness Resp normal respiratory effort and normal air movement Effort and Inspection: symmetric chest movement; Negative for respiratory distress Cardio regular rate, regular rhythm and no murmurs Peripheral Pulses: pulses 2+ throughout GI normal to inspection, nondistended, normoactive bowel sounds and non-tender Palpation: Negative for guarding or rebound tenderness present Back/Spine no CVA tenderness and no thoracic nor lumbar tenderness Extremity normal to inspection General Extremety ED: Negative for edema or tenderness General Extremity: Negative for edema Neuro oriented x3 and no sensory deficits noted Sensorium / Orientation: awake and alert Skin no rashes or lesions noted and no wounds MDM MDM MDM Narrative Medical decision making narrative: Patient nontoxic pulse ox 95 on room air. Elevated blood pressure on arrival asymptomatic. Positive COVID testing at her job today she has been symptomatic with new symptoms over 5 days currently. I discussed with patient symptomatic treatment. She has hypertension diabetes history. Discussed using nasal saline spray for her nose. With her report of wheezing at home inhaler will be prescribed. Discussed picking up a pulse oximeter for monitoring of her pulse ox. Discussed may obtain x-ray if she is concerned however if pneumonia would be viral and no antibiotic treatment. She understands this. No imagings. Return precautions discussed. All questions were answered. Discharge Plan Triage Chief Complaint: Shortness of Breath ED Provider: Gio Leyva Dx/Rx/DC Orders Clinical Impression: COVID-19 virus infection, Congestion of nasal sinus, Cough Instructions: Coronavirus Disease 2019 (COVID-19): Caring for Yourself or Others Prescriptions: New albuterol sulfate [Ventolin HFA] 90 mcg/actuation HFA aerosol inhaler 1 - 2 puff inhalation Q4H PRN PRN (Reason: Wheezing) Qty: 1 0RF No Action omeprazole 40 mg capsule,delayed release(DR/EC) 40 mg PO DAILY insulin detemir U-100 100 UNITS/ML insulin pen 74 units SC QHS saxagliptin-metformin 1 EACH tablet, ER multiphase 24 hr 1 tab PO BID levothyroxine 50 mcg tablet 50 mcg PO DAILY atorvastatin 40 MG tablet 40 mg PO QHS insulin lispro 100 UNIT/ML insulin pen 16 unit SC DAILY Label Comments: 16 with breakfast and 18 with lunch and dinner insulin lispro 100 UNIT/ML cartridge 18 unit SQ 1200,2000 ferrous sulfate [FeroSul] 325 mg (65 mg iron) Tablet 325 mg PO BID carvedilol 6.25 mg Tablet 6.25 mg PO BID Qty: 60 0RF amlodipine 10 mg Tablet 10 mg PO DAILY Qty: 30 0RF ascorbic acid (vitamin C) [Vitamin C] 500 mg capsule, extended release 500 mg PO Q12H Qty: 60 0RF Rx Instructions: Take with Iron tablet sucralfate [Carafate] 1 gram tablet 1 g PO BID Qty: 60 0RF Primary Care Provider: Riki Clark Referrals: Riki Clark MD [Primary Care Provider] - 1-2 Weeks Activity Restrictions/Additional Instructions: Use inhaler as needed for wheezing. Nasal saline spray to nostrils twice a day to help with congestion. 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 Return if any worsening symptoms. Disposition Disposition: Home, Self Care Discharge Date/Time: 02/07/22 12:33
[2022-02-07 12:32] VITALS: O2SAT 97
== END 2022-02-07 12:33 | disposition home or self-care (01) ==
PROVIDERS: Emergency Provider Emergency Medicine; PCP Family Medicine; Visit Provider Emergency Medicine
DX: U07.1 COVID-19 (principal); E11.9 Type 2 diabetes mellitus without complications; Z79.4 Long term (current) use of insulin; I10 Essential (primary) hypertension; E78.5 Hyperlipidemia, unspecified; E78.00 Pure hypercholesterolemia, unspecified; R05.9 Cough, unspecified; R09.81 Nasal congestion
CPT/HCPCS: 99282

== ENCOUNTER 2022-05-14 09:16 | Inpatient (IN) | payer MEDICARE, MEDICAID, SELFPAY ==
[2022-05-14 09:17] VITALS: BP 169/68; PULSE 62; RESP 17; TEMP 36.5; O2SAT 93; BMI 42.4
--- NOTE | 2022-05-14 09:43 | EDS_ITS ---
HPI History of Present Illness Chief Complaint: Cellulitis Informant: patient Narrative Narrative: Presents to ED multiple complaints. Initial reports increasing left leg redness drainage for the past week. Started after she scratched her leg and broke the skin. She is a diabetic. Redness progressed. No fevers. She does report some aches in her upper chest and hips. Allergies to latex and lisinopril. In addition states nonproductive cough for 2 days increasing dyspnea and wheeze. Denies history of COPD or asthma. She states occasional wheezing. No fevers. Denies sick contacts. Reported went to the PCP office yesterday states lung could had fluid in that she has no heart failure history. She has history of lymphedema denies being on a diuretic none was started yesterday. Denies being started on antibiotics yesterday with her redness of her leg either. She is concerned due to having symptomatic anemia a year ago with exertional dyspnea. She was admitted with blood transfusion. She states she had upper and lower endoscopies that were negative. She denies any rectal bleeding. PFSH PFS Medical History Abdominal pain Anxiety Arthritis Asthma Asthma Depression Dietary restriction Easy bruising Gastric reflux High cholesterol History of edema History of pain when walking HTN (hypertension) Hyperlipidemia Hypertension Hypothyroid Insulin dependent diabetes mellitus Leg cramps Low iron Migraines Nausea Non-smoker Postoperative primary hypothyroidism Pulmonary embolism Restless legs Shortness of breath on exertion Thyroid cancer Type 2 diabetes mellitus Wears glasses Home Medications insulin detemir U-100 100 unit/mL (3 mL) subcutaneous pen (Levemir FlexTouch U- 100 Insulin) 74 units subcut QHS DIABETES 04/06/13 [History Last Taken 05/13/22] atorvastatin 40 mg tablet 40 mg PO QHS cholesterol 05/23/17 [History Last Taken 05/13/22] ferrous sulfate 325 mg (65 mg iron) tablet (FeroSul) 325 mg PO BID supplement 05/30/21 [History Last Taken 05/14/22] omeprazole 40 mg capsule,delayed release 40 mg PO DAILY GERD 10/17/21 [History Last Taken 05/14/22] albuterol sulfate 90 mcg/actuation aerosol inhaler (Ventolin HFA) 2 puff inhalation Q6H PRN Shortness Of Breath 05/14/22 [History Last Taken 05/14/22] amlodipine 10 mg tablet 10 mg PO DAILY BLOOD PRESSURE 05/14/22 [History Last Taken 05/14/22] ascorbic acid (vitamin C) 500 mg capsule,extended release (Vitamin C) 500 mg PO BID SUPPLEMENT 05/14/22 [History Last Taken 05/14/22] carvedilol 12.5 mg tablet 12.5 mg PO BID HEART 05/14/22 [History Last Taken 05/14/22] fluorometholone 0.1 % eye drops,suspension 1 drp EACH EYE DAILY PRN EYE INFLAMMATION 05/14/22 [History Last Taken 05/13/22] insulin aspart (niacinamide)(U-100) 100 unit/mL(3 mL) subcutaneous pen (Fiasp FlexTouch U-100 Insulin) 16 unit subcut DAILY DIABETES 05/14/22 [History Last Taken 05/14/22] insulin aspart (niacinamide)(U-100) 100 unit/mL(3 mL) subcutaneous pen (Fiasp FlexTouch U-100 Insulin) 18 unit subcut BID DIABETES 05/14/22 [History Last Taken 05/13/22] levothyroxine 200 mcg tablet 200 mcg PO MOTUWETHFRSA THYROID 05/14/22 [History Last Taken 05/14/22] sitagliptin phosphate 50 mg-metformin 1,000 mg tablet (Janumet) 1 tab PO BIDCM BLOOD SUGARS 05/14/22 [History Last Taken 05/14/22] sucralfate 1 gram tablet (Carafate) 1 g PO BID GERD 05/14/22 [History Last Taken 05/14/22] sumatriptan succinate 50 mg tablet 50 mg PO DAILY PRN Migraine Headache 05/14/22 [History Last Taken 05/13/22] Allergy/AdvReac Type Severity Reaction Status Date / Time latex Allergy Rash Verified 05/14/22 09:16 lisinopril AdvReac Other Verified 05/14/22 09:16 Family History Aunt Breast cancer Father Diabetes Hypertension Heart disease Myocardial infarction Mother Diabetes Hypertension Surgical History History of esophagogastroduodenoscopy (EGD) History of laparoscopic cholecystectomy (~07/21/20) Hx of bilateral cataract extraction Hx of tubal ligation S/P partial thyroidectomy Social History Smoking Status: Never smoker ROS ROS ED Constitutional Constitutional ED: Denies chills, fever(s) or sweats Eyes Eyes: Denies change in vision ENT ENT ED: Denies dysphagia or sore throat Cardiovascular Cardiovascular: Denies chest pain, leg edema, palpitations or racing heartbeat Respiratory/Chest Respiratory/Chest: Reports cough and dyspnea; Denies dyspnea on exertion Gastrointestinal Gastrointestinal: Denies abdominal pain, diarrhea, nausea or vomiting Genitourinary Genitourinary ED: Denies dysuria, hematuria or urinary frequency Musculoskeletal Musculoskeletal: Reports myalgias; Denies back pain, extremity pain or neck pain Integumentary Reports rash; Denies wounds Neurologic Neurologic: Denies headache(s), paresthesias or weakness EXAM Physical Exam Const Vital Signs: 05/14/22 09:17 Temperature 97.7 F L Temperature Source Temporal Pulse Rate 62 Respiratory Rate 17 Blood Pressure 169/68 H Blood Pressure Mean 101 Pulse Ox 93 Oxygen Delivery Method Room Air Positive well nourished and well developed General Appearance ED: well developed and NAD HEENT Reports moist mucous membranes normocephalic and atraumatic Eyes PERRL, EOMs intact bilaterally and conjunctivae normal General Eye ED: Yes normal appearance of both eyes Neck no lymphadenopathy and supple General: Negative for tenderness Chest Wall Chest: Negative for tenderness Resp normal respiratory effort and normal air movement Effort and Inspection: symmetric chest movement; Negative for respiratory distress Cardio regular rate, regular rhythm and no murmurs Peripheral Pulses: pulses 2+ throughout GI normal to inspection, nondistended, normoactive bowel sounds and non-tender Palpation: Negative for guarding or rebound tenderness present Back/Spine no CVA tenderness and no thoracic nor lumbar tenderness Extremity normal to inspection Extremity Narrative: Chronic lymphedema no calf or medial thigh tenderness. Pulses intact distally. General Extremety ED: Yes edema; Negative for tenderness General Extremity: edema Neuro oriented x3 and no sensory deficits noted Sensorium / Orientation: awake and alert Skin Skin Narrative: Left lower leg: Distal lateral leg there is erythema patch with healing excoriation clear drainage. No crepitus. That area was distally warm to palpation there is redness proximally laterally up to the proximal leg there is no joint involvement. This area was cool to palpation. No induration is no fluctuance. MDM MDM MDM Narrative Medical decision making narrative: Patient nontoxic. Left lower leg examination with differentials cellulitis, no clinical DVT concerns. Chronic lymphedema of this area. Additional differential for upper respiratory symptoms could be symptomatic anemia viral syndrome COVID versus flu versus pneumonia. She has no PE risk factors. We will check COVID influenza chest x-ray and labs. Patient will require antibiotics for her cellulitis. Work-up with labs findings hemoglobin 6.5. Creatinine 1. She declined rectal exam. Patient states she did not want to stay in the hospital, for discussed with GI Dr. Sudhakar, recommend 2 units of blood to be given with close follow-up with him for capsule study. Chest x-ray 2 views interpreted evaluate slight tinge and patient is no CHF history. Plan for blood for slow transfusion and monitoring of symptoms. Patient was treated with oral Keflex and Bactrim. Normal creatinine. However blood bank called patient's antibodies and her blood therefore would need special blood that would not be available immediately. Patient agreed to stay. I spoke with hospitalist Dr. Ye for admission. Lab Data Attestation: I reviewed the patient's lab results. Labs: Laboratory Results - last 24 hr 05/14/22 05/14/22 05/14/22 09:50 09:50 11:38 WBC 6.1 RBC 3.20 L Hgb 6.5 L Hct 23.0 L MCV 71.9 L MCH 20.3 L MCHC 28.3 L RDW Std Deviation 48.3 H RDW Coeff of Negar 18.6 H Plt Count 331 MPV 8.9 Immature Gran % (Auto) 0.500 Neut % (Auto) 58.6 Lymph % (Auto) 24.0 [place] % (Auto) 13.6 H Eos % (Auto) 2.5 Baso % (Auto) 0.8 Absolute Neuts (auto) 3.6 Absolute Lymphs (auto) 1.47 Nucleated RBC % 0 PT 15.5 H INR 1.3 APTT 35.7 Sodium 133 L Potassium 4.1 Chloride 107 Carbon Dioxide 22.0 Anion Gap 4 L BUN 21 H Creatinine 1.00 Estim Creat Clear Calc 57.20 Est GFR (MDRD) Af Amer 74 Est GFR (MDRD) Non-Af 61 BUN/Creatinine Ratio 21.0 H Glucose 100 Calcium 8.6 Blood Type Antibody Screen Antibody Identification Antigen Identification Crossmatch 05/14/22 05/14/22 05/14/22 11:38 11:38 11:38 WBC RBC Hgb Hct MCV MCH MCHC RDW Std Deviation RDW Coeff of Negar Plt Count MPV Immature Gran % (Auto) Neut % (Auto) Lymph % (Auto) [place] % (Auto) Eos % (Auto) Baso % (Auto) Absolute Neuts (auto) Absolute Lymphs (auto) Nucleated RBC % PT INR APTT Sodium Potassium Chloride Carbon Dioxide Anion Gap BUN Creatinine Estim Creat Clear Calc Est GFR (MDRD) Af Amer Est GFR (MDRD) Non-Af BUN/Creatinine Ratio Glucose Calcium Blood Type O POSITIVE Antibody Screen POSITIVE H Antibody Identification ANTI-K Antigen Identification K ANTIGEN - NEGATIVE Crossmatch See Detail Radiography Diagnostic Testing: Clinical Impression(s) from Imaging Studies Chest X-Ray 05/14/22 10:22 IMPRESSION: Mild degree of CHF superimposed on bibasilar scarring. Electronically Signed: David Burns MD at 10:41 EST , Discharge Plan Dx/Rx/DC Orders Clinical Impression: Symptomatic anemia, Cellulitis of left leg, Type 2 diabetes mellitus Disposition Disposition: Acute Care Hospital [facility] Discharge Date/Time: 05/14/22 15:53
[2022-05-14 10:01] LABS: Absolute Lymphocyte Count 1.47 X10^3/uL (0.83-4.51); Absolute Neutrophil Count 3.6 X10^3/uL (2.0-7.7); Basophil# 0.05 X10^3/uL; Basophil% 0.8 % (0-1); Eosinophil# 0.15 X10^3/uL; Eosinophils% 2.5 % (0-5); Hemoglobin 6.5 g/dL (12.0-15.0); Lymphocyte # 1.47 X10^3/ul (0.83-4.51); Mean Corp Hgb Conc 28.3 g/dL (32-36); Mean Corpuscular Hgb 20.3 pg (27.0-32.0); Mean Corpuscular Volume 71.9 fL (81-99); Mean Platelet Vol. 8.9 fl (6.2-12.0); Monocyte# 0.83 X10^3/uL; Monocyte% 13.6 % (0-10); NRBC Flagged by Analyzer 0 % (0-5); Neutrophil # 3.59 X10^3/uL (2.7-7.7); Neutrophil % 58.6 % (47-70); Platelet Count 331 K/mm3 (150-450); RBC Distribution Width CV 18.6 % (11.6-14.6); RBC Distribution Width SD 48.3 fl (35.1-43.9); White Blood Count 6.1 K/mm3 (4.4-11.0)
[2022-05-14 10:13] LABS: Anion Gap 4 (5-15); BUN 21 mg/dL (7-18); Calcium,Total 8.6 mg/dL (8.5-10.1); Chloride 107 mmol/L (98-107); EST Glomerular Filtration Rate 61 mL/min (>60); Est Glom Filt Rate - Afr Amer 74 mL/min (>60); Glucose 100 mg/dL (74-106); Potassium 4.1 mmol/L (3.5-5.1); Sodium Level 133 mmol/L (136-145)
--- NOTE | 2022-05-14 10:22 | RAD_ITS ---
STUDY: X-RAY CHEST REASON FOR EXAM: Female, 56 years old. Cough TECHNIQUE: PA and lateral views of the chest. COMPARISON: Comparison is made with prior study dated 01/30/2022. FINDINGS: Vascular congestion and mild CHF superimposed on scarring. There is no demonstrated pleural abnormality. There is mild cardiac enlargement. Normal mediastinum and luis enrique. Normal visualized pulmonary arteries. There is atherosclerotic calcification of the aortic arch with tortuosity. There are diffuse degenerative changes of the visualized thoracic spine. Normal visualized ribs, clavicles, and shoulders. There is no demonstrated abnormality of the visualized soft tissue structures of the upper abdomen. RAD/Chest PA and Lateral IMPRESSION: Mild degree of CHF superimposed on bibasilar scarring. Electronically Signed: David Burns MD at 10:41 EST ,
[2022-05-14 11:57] LABS: International Normalized Ratio 1.3; Prothrombin Time (Protime)PT. 15.5 SECONDS (11.7-14.9)
[2022-05-14 11:58] LABS: Partial Thromboplast Time 35.7 Seconds (24.1-36.2)
[2022-05-14] MEDS: Smz/Tmp Ds Tablet 1 TABLET PO (12:43)
[2022-05-14] MEDS: Cephalexin 250 MG Capsule 500 MG PO (12:43)
--- NOTE | 2022-05-14 14:37 | NURSING ---
DR ACSSIE ROSE
--- NOTE | 2022-05-14 14:48 | NURSING ---
MED SURG TERELETSFL SYMPTOMATIC ANEMIA, CELLULITIS
--- NOTE | 2022-05-14 15:05 | HP.PCM.HOS_ITS ---
HPI - General General Date of Admission: 05/14/22 Date of Service: 05/14/22 Chief Complaint: Anemia HPI Narrative JESUS ZEPEDA, is a 56 F who presents to the emergency room at [facility] for evaluation of a reddened area over her left lower leg, she also complains of fluid retention in her lower legs which is chronic-she has a diagnosis of lymphedema, she is not presently on a diuretic. Patient denies any fevers or chills. Work-up in the emergency room included labs which showed her to be severely anemic with a hemoglobin of 6.5, MCV was low at 71.9, sodium was slightly low at 133, BUN was 21. Patient's white blood cell count was unremarkable, patient was afebrile. Patient has had a history of anemia and is seeing Dr. De La Fuente regarding a work-up for the anemia, she has had blood transfusions before. Patient will be placed into observation status on MedSurg 3, she will be given 2 units of packed red blood cells-according to the emergency room physician, patient has antibodies which makes it difficult for the patient to obtain blood transfusions. I have decided to place the patient on oral antibiotics for the reddened area over her left lower leg and place her on IV Lasix to try to get rid of some of the fluid in her lower legs. I feel she will need to go home on a diuretic. [facility] Medical History Abdominal pain Anxiety Arthritis Asthma Asthma Depression Dietary restriction Easy bruising Gastric reflux High cholesterol History of edema History of pain when walking HTN (hypertension) Hyperlipidemia Hypertension Hypothyroid Insulin dependent diabetes mellitus Leg cramps Low iron Migraines Nausea Non-smoker Postoperative primary hypothyroidism Pulmonary embolism Restless legs Shortness of breath on exertion Thyroid cancer Type 2 diabetes mellitus Wears glasses Home Medications insulin detemir U-100 100 unit/mL (3 mL) subcutaneous pen (Levemir FlexTouch U- 100 Insulin) 74 units subcut QHS DIABETES 04/06/13 [History Last Taken 05/13/22] atorvastatin 40 mg tablet 40 mg PO QHS cholesterol 05/23/17 [History Last Taken 05/13/22] ferrous sulfate 325 mg (65 mg iron) tablet (FeroSul) 325 mg PO BID supplement 05/30/21 [History Last Taken 05/14/22] omeprazole 40 mg capsule,delayed release 40 mg PO DAILY GERD 10/17/21 [History Last Taken 05/14/22] albuterol sulfate 90 mcg/actuation aerosol inhaler (Ventolin HFA) 2 puff inhalation Q6H PRN Shortness Of Breath 05/14/22 [History Last Taken 05/14/22] amlodipine 10 mg tablet 10 mg PO DAILY BLOOD PRESSURE 05/14/22 [History Last Taken 05/14/22] ascorbic acid (vitamin C) 500 mg capsule,extended release (Vitamin C) 500 mg PO BID SUPPLEMENT 05/14/22 [History Last Taken 05/14/22] carvedilol 12.5 mg tablet 12.5 mg PO BID HEART 05/14/22 [History Last Taken 05/14/22] fluorometholone 0.1 % eye drops,suspension 1 drp EACH EYE DAILY PRN EYE INFLAMMATION 05/14/22 [History Last Taken 05/13/22] insulin aspart (niacinamide)(U-100) 100 unit/mL(3 mL) subcutaneous pen (Fiasp FlexTouch U-100 Insulin) 16 unit subcut DAILY DIABETES 05/14/22 [History Last Taken 05/14/22] insulin aspart (niacinamide)(U-100) 100 unit/mL(3 mL) subcutaneous pen (Fiasp FlexTouch U-100 Insulin) 18 unit subcut BID DIABETES 05/14/22 [History Last Taken 05/13/22] levothyroxine 200 mcg tablet 200 mcg PO MOTUWETHFRSA THYROID 05/14/22 [History Last Taken 05/14/22] sitagliptin phosphate 50 mg-metformin 1,000 mg tablet (Janumet) 1 tab PO BIDCM BLOOD SUGARS 05/14/22 [History Last Taken 05/14/22] sucralfate 1 gram tablet (Carafate) 1 g PO BID GERD 05/14/22 [History Last Taken 05/14/22] sumatriptan succinate 50 mg tablet 50 mg PO DAILY PRN Migraine Headache 05/14/22 [History Last Taken 05/13/22] Allergy/AdvReac Type Severity Reaction Status Date / Time latex Allergy Rash Verified 05/14/22 09:16 lisinopril AdvReac Other Verified 05/14/22 09:16 Family History Aunt Breast cancer Father Diabetes Hypertension Heart disease Myocardial infarction Mother Diabetes Hypertension Surgical History History of esophagogastroduodenoscopy (EGD) History of laparoscopic cholecystectomy (~11/15/19) Hx of bilateral cataract extraction Hx of tubal ligation S/P partial thyroidectomy Social History Smoking Status: Never smoker ROS ROS Narrative Patient complains of redness over the left lower leg x3 weeks Constitutional Constitutional: Denies anorexia, change in weight, fever(s), night sweats or weakness Eyes Eyes: Denies blurry vision, change in eye color, change in vision, discharge from eye(s) or eye pain ENT HEENT: Denies epistaxis or headache(s) Cardiovascular Cardiovascular: Denies chest pain, claudication, edema or palpitations Respiratory/Chest Respiratory/Chest: Denies cough, dyspnea, hemoptysis, productive cough, shortness of breath at rest or shortness of breath with exertion Gastrointestinal Gastrointestinal: Denies abdominal pain, coffee ground emesis, constipation, diarrhea, dyspepsia, hematemesis, hematochezia, melena, nausea or vomiting Genitourinary Genitourinary: Denies dysuria, hematuria, urinary frequency, urinary hesitancy, urinary incontinence or urinary urgency Musculoskeletal Musculoskeletal: Denies back pain, joint pain, joint stiffness, joint swelling, myalgias or neck pain Neurologic Neurologic: Denies abnormal gait, abnormal speech, dizziness, focal weakness, headache(s), loss of vision, numbness, other visual disturbances, paresthesias, syncope or tingling Psychiatric Psychiatric: Denies anxiety, cognitive impairment, depression, irritability, mood swings or suicidal ideation Endocrine Endocrinology: Denies change in body appearance, cold intolerance, excessive sweating, heat intolerance, polydipsia or polyuria Hematologic/Lymphatic Hematologic/Lymphatic: Denies none, anemia, easy bleeding, easy bruising or l ymphadenopathy Allergic/Immunologic Allergic/Immunologic: Denies rhinitis, urticaria, eczemia or asthma Vital Signs Vital Signs Vital Signs: 05/14/22 09:17 Temperature 97.7 F L Temperature Source Temporal Pulse Rate 62 Respiratory Rate 17 Blood Pressure 169/68 H Blood Pressure Mean 101 Pulse Ox 93 Oxygen Delivery Method Room Air Weight Weight: 115.666 kg Body Mass Index (BMI) 42.4 Physical Exam Const alert, oriented x3 and no apparent distress Constitutional Narrative: Patient is morbidly obese General Appearance: cooperative, well kempt and well developed Orientation / Consciousness: awake, oriented to person, oriented to place and oriented to time HEENT normocephalic and moist oral mucous membranes Eyes PERRL, EOMs intact bilaterally and conjunctivae normal Neck supple, no JVD, thyroid normal and no carotid bruits General: trachea midline Resp normal respiratory effort and clear to auscultation bilaterally Auscultation: Negative for rales, rhonchi or wheezes Cardio regular rate, regular rhythm, no murmurs, no rub and no gallops GI normal to inspection, nondistended, normoactive bowel sounds, soft to palpation, non-tender and non-distended Extremity Extremity Narrative: There are chronic lymphedematous changes over both legs noted, there is severe edema noted over the lower legs bilaterally, there is a redness area several centimeters in diameter by several centimeters in length over the left lower leg on its outer aspect. Patient has palpable fluid on her skin over the left lower leg. Skin Skin Narrative: Reddened area noted over the outer aspect of the left lower leg Neuro oriented x3, CN's II-XII intact bilaterally, no focal motor deficits and no sensory deficits noted Sensorium / Orientation: awake, alert, oriented to person, oriented to place and oriented to time Speech: speech normal Psych affect normal Results Lab / Micro Data Result Diagrams: 05/14/22 09:50 05/14/22 09:50 Labs: Laboratory Results - last 24 hr 05/14/22 09:50: WBC 6.1, RBC 3.20 L, Hgb 6.5 L, Hct 23.0 L, MCV 71.9 L, MCH 20.3 L, MCHC 28.3 L, RDW Std Deviation 48.3 H, RDW Coeff of Negar 18.6 H, Plt Count 331, MPV 8.9, Immature Gran % (Auto) 0.500, Neut % (Auto) 58.6, Lymph % (Auto) 24.0, [place] % (Auto) 13.6 H, Eos % (Auto) 2.5, Baso % (Auto) 0.8, Absolute Neuts (auto) 3.6, Absolute Lymphs (auto) 1.47, Nucleated RBC % 0 05/14/22 09:50: Sodium 133 L, Potassium 4.1, Chloride 107, Carbon Dioxide 22.0, Anion Gap 4 L, BUN 21 H, Creatinine 1.00, Estim Creat Clear Calc 57.20, Est GFR (MDRD) Af Amer 74, Est GFR (MDRD) Non-Af 61, BUN/Creatinine Ratio 21.0 H, Glucose 100, Calcium 8.6 05/14/22 11:38: PT 15.5 H, INR 1.3, APTT 35.7 05/14/22 11:38: Blood Type O POSITIVE, Antibody Screen POSITIVE H, Antibody Identification ANTI-K 05/14/22 11:38: Crossmatch See Detail 05/14/22 11:38: Antigen Identification K ANTIGEN - NEGATIVE Micro: Microbiology 05/14/22 10:15 Nasal Secretion SARS-CoV-2 & FLU Antigen (Rapid) - Final Radiology Impression Chest X-Ray 05/14/22 10:22 IMPRESSION: Mild degree of CHF superimposed on bibasilar scarring. Electronically Signed: David Burns MD at 10:41 EST , Assessment & Plan Assessment/Plan (1) Anemia: PLAN: Plan 1. Acute on chronic anemia-patient is asymptomatic at this time, she will be placed in observation status on [facility] 3, she will receive 2 units of packed red blood cells. Due to the fact she has not had any endoscopy since December of last year, I contacted gastroenterology and they will see the patient and perform an EGD tomorrow. I will place the patient on oral Protonix, I do not think she is actively bleeding at the at this time, I will get a serum iron level on the patient. #2 cellulitis of the left lower leg-this is not extensive, I think the patient can be treated with oral antibiotics and topical antifungal cream #3 chronic lymphedema of the legs-patient will need diuresis with IV Lasix due to fluid retention in her lower legs, BMP will be rechecked tomorrow #4 morbid obesity-complicates care, management, recovery, and prognosis #5 essential hypertension-it may be prudent to switch the patient from amlodipine to another hypertensive agent due to her leg edema, she has listed an allergy to lisinopril, I will need to verify what kind of reaction she had on this medication. Total clinical time spent by myself addressing the patient's medical issues, reviewing the patient's data, and collaborating with patient's care team: 55 minutes Charges/Coding Visit Charges Inpatient E&M: 71344 Init Hosp L2
[2022-05-14 15:53] VITALS: BP 141/61; PULSE 55; RESP 18; TEMP 36.6; O2SAT 100
[2022-05-14 16:27] VITALS: BP 146/85; PULSE 62; RESP 22; TEMP 36.4; O2SAT 97
[2022-05-14 16:28] VITALS: BMI 42.4
--- NOTE | 2022-05-14 17:11 | EX.PCM.CON.G ---
HPI Consult Data Date of Consult: 05/14/22 HPI Narrative Reason for Consultation: Anemia HPI Narrative: JESUS ZEPEDA, is a 56 F who presents to the ED with lower extremity swelling. She also complaints of shortness of breath .? Patient had a past history of pulmonary embolism a few years ago.? Her work-up in the emergency room included labs which revealed the patient to be anemic with a hemoglobin of 6.8, chemistry profile was unremarkable except for glucose of 147. I saw her back in December 2021 for iron deficiency anemia. She underwent an upper and lower endoscopy and there was no sign of acute or chronic blood loss anemia. She was noted to have gastritis on upper endoscopy. She was supposed to follow-up for capsule endoscopy but did not follow-up in office. In the ED today she was noted to have increased pain to creatinine ratio and her hemoglobin is back down to 6.5. Previously when she was discharged her hemoglobin was 9.2 back in December. She does have a history of gastroesophageal reflux disease, hypertension, diabetes mellitus and hypothyroidism. Currently she also has multiple complaints.? Initial reports increasing left leg redness drainage for the past week.? Started after she scratched her leg and broke the skin.? She is a diabetic.? Redness progressed.? No fevers.? She does report some aches in her upper chest and hips.? Allergies to latex and lisinopril.? In addition states nonproductive cough for 2 days increasing dyspnea and wheeze.? Denies history of COPD or asthma.? She states occasional wheezing.? No fevers.? Denies sick contacts.? She went to the PCP office yesterday states lung could had fluid in that she has no heart failure history.? She has history of lymphedema denies being on a diuretic none was started yesterday.? Denies being started on antibiotics yesterday with her redness of her leg either.? She is concerned due to having symptomatic anemia a year ago with exertional dyspnea.? She was admitted with blood transfusion.?? [facility] Medical History Abdominal pain Anxiety Arthritis Asthma Asthma Depression Dietary restriction Easy bruising Gastric reflux High cholesterol History of edema History of pain when walking HTN (hypertension) Hyperlipidemia Hypertension Hypothyroid Insulin dependent diabetes mellitus Leg cramps Low iron Migraines Nausea Non-smoker Postoperative primary hypothyroidism Pulmonary embolism Restless legs Shortness of breath on exertion Thyroid cancer Type 2 diabetes mellitus Wears glasses Home Medications insulin detemir U-100 100 unit/mL (3 mL) subcutaneous pen (Levemir FlexTouch U-100 Insulin) 74 units subcut QHS DIABETES 04/06/13 [History Last Taken 05/13/22] atorvastatin 40 mg tablet 40 mg PO QHS cholesterol 05/23/17 [History Last Taken 05/13/22] ferrous sulfate 325 mg (65 mg iron) tablet (FeroSul) 325 mg PO BID supplement 05/30/21 [History Last Taken 05/14/22] omeprazole 40 mg capsule,delayed release 40 mg PO DAILY GERD 10/17/21 [History Last Taken 05/14/22] albuterol sulfate 90 mcg/actuation aerosol inhaler (Ventolin HFA) 2 puff inhalation Q6H PRN Shortness Of Breath 05/14/22 [History Last Taken 05/14/22] amlodipine 10 mg tablet 10 mg PO DAILY BLOOD PRESSURE 05/14/22 [History Last Taken 05/14/22] ascorbic acid (vitamin C) 500 mg capsule,extended release (Vitamin C) 500 mg PO BID SUPPLEMENT 05/14/22 [History Last Taken 05/14/22] carvedilol 12.5 mg tablet 12.5 mg PO BID HEART 05/14/22 [History Last Taken 05/14/22] fluorometholone 0.1 % eye drops,suspension 1 drp EACH EYE DAILY PRN EYE INFLAMMATION 05/14/22 [History Last Taken 05/13/22] insulin aspart (niacinamide)(U-100) 100 unit/mL(3 mL) subcutaneous pen (Fiasp FlexTouch U-100 Insulin) 16 unit subcut DAILY DIABETES 05/14/22 [History Last Taken 05/14/22] insulin aspart (niacinamide)(U-100) 100 unit/mL(3 mL) subcutaneous pen (Fiasp FlexTouch U-100 Insulin) 18 unit subcut BID DIABETES 05/14/22 [History Last Taken 05/13/22] levothyroxine 200 mcg tablet 200 mcg PO MOTUWETHFRSA THYROID 05/14/22 [History Last Taken 05/14/22] sitagliptin phosphate 50 mg-metformin 1,000 mg tablet (Janumet) 1 tab PO BIDCM BLOOD SUGARS 05/14/22 [History Last Taken 05/14/22] sucralfate 1 gram tablet (Carafate) 1 g PO BID GERD 05/14/22 [History Last Taken 05/14/22] sumatriptan succinate 50 mg tablet 50 mg PO DAILY PRN Migraine Headache 05/14/22 [History Last Taken 05/13/22] Allergy/AdvReac Type Severity Reaction Status Date / Time latex Allergy Rash Verified 05/14/22 09:16 lisinopril AdvReac Other Verified 05/14/22 09:16 Family History Aunt Breast cancer Father Diabetes Hypertension Heart disease Myocardial infarction Mother Diabetes Hypertension Surgical History History of esophagogastroduodenoscopy (EGD) History of laparoscopic cholecystectomy (~11/15/19) Hx of bilateral cataract extraction Hx of tubal ligation S/P partial thyroidectomy Social History Smoking Status: Never smoker ROS ROS Narrative Patient complains of redness over the left lower leg x3 weeks Constitutional Constitutional: Denies anorexia, change in weight, fever(s), night sweats or weakness Eyes Eyes: Denies blurry vision, change in eye color, change in vision, discharge from eye(s) or eye pain ENT HEENT: Denies epistaxis or headache(s) Cardiovascular Cardiovascular: Denies chest pain, claudication, edema or palpitations Respiratory/Chest Respiratory/Chest: Denies cough, dyspnea, hemoptysis, productive cough, shortness of breath at rest or shortness of breath with exertion Gastrointestinal Gastrointestinal: Denies abdominal pain, coffee ground emesis, constipation, diarrhea, dyspepsia, hematemesis, hematochezia, melena, nausea or vomiting Genitourinary Genitourinary: Denies dysuria, hematuria, urinary frequency, urinary hesitancy, urinary incontinence or urinary urgency Musculoskeletal Musculoskeletal: Denies back pain, joint pain, joint stiffness, joint swelling, myalgias or neck pain Neurologic Neurologic: Denies abnormal gait, abnormal speech, dizziness, focal weakness, headache(s), loss of vision, numbness, other visual disturbances, paresthesias, syncope or tingling Psychiatric Psychiatric: Denies anxiety, cognitive impairment, depression, irritability, mood swings or suicidal ideation Endocrine Endocrinology: Denies change in body appearance, cold intolerance, excessive sweating, heat intolerance, polydipsia or polyuria Hematologic/Lymphatic Hematologic/Lymphatic: Denies none, anemia, easy bleeding, easy bruising or lymphadenopathy Allergic/Immunologic Allergic/Immunologic: Denies rhinitis, urticaria, eczemia or asthma Physical Exam Const alert, oriented x3 and no apparent distress Constitutional Narrative: Patient is morbidly obese General Appearance: cooperative, well kempt and well developed Orientation / Consciousness: awake, oriented to person, oriented to place and oriented to time HEENT normocephalic and moist oral mucous membranes Eyes PERRL, EOMs intact bilaterally and conjunctivae normal Neck supple, no JVD, thyroid normal and no carotid bruits General: trachea midline Resp normal respiratory effort and clear to auscultation bilaterally Auscultation: Negative for rales, rhonchi or wheezes Cardio regular rate, regular rhythm, no murmurs, no rub and no gallops GI normal to inspection, nondistended, normoactive bowel sounds, soft to palpation, non-tender and non-distended Extremity Extremity Narrative: There are chronic lymphedematous changes over both legs noted, there is severe edema noted over the lower legs bilaterally, there is a redness area several centimeters in diameter by several centimeters in length over the left lower leg on its outer aspect. Patient has palpable fluid on her skin over the left lower leg. Skin Skin Narrative: Reddened area noted over the outer aspect of the left lower leg Neuro oriented x3, CN's II-XII intact bilaterally, no focal motor deficits and no sensory deficits noted Sensorium / Orientation: awake, alert, oriented to person, oriented to place and oriented to time Speech: speech normal Psych affect normal Lab / Micro Data Result Diagrams: 05/14/22 09:50 05/14/22 09:50 Labs: Laboratory Results - last 24 hr 05/14/22 09:50: WBC 6.1, RBC 3.20 L, Hgb 6.5 L, Hct 23.0 L, MCV 71.9 L, MCH 20.3 L, MCHC 28.3 L, RDW Std Deviation 48.3 H, RDW Coeff of Negar 18.6 H, Plt Count 331, MPV 8.9, Immature Gran % (Auto) 0.500, Neut % (Auto) 58.6, Lymph % (Auto) 24.0, [place] % (Auto) 13.6 H, Eos % (Auto) 2.5, Baso % (Auto) 0.8, Absolute Neuts (auto) 3.6, Absolute Lymphs (auto) 1.47, Nucleated RBC % 0 05/14/22 09:50: Sodium 133 L, Potassium 4.1, Chloride 107, Carbon Dioxide 22.0, Anion Gap 4 L, BUN 21 H, Creatinine 1.00, Estim Creat Clear Calc 57.20, Est GFR (MDRD) Af Amer 74, Est GFR (MDRD) Non-Af 61, BUN/Creatinine Ratio 21.0 H, Glucose 100, Calcium 8.6 05/14/22 11:38: PT 15.5 H, INR 1.3, APTT 35.7 05/14/22 11:38: Blood Type O POSITIVE, Antibody Screen POSITIVE H, Antibody Identification ANTI-K 05/14/22 11:38: Crossmatch See Detail 05/14/22 11:38: Antigen Identification K ANTIGEN - NEGATIVE Micro: Microbiology 05/14/22 10:15 Nasal Secretion SARS-CoV-2 & FLU Antigen (Rapid) - Final Radiology Impression Chest X-Ray 05/14/22 10:22 IMPRESSION: Mild degree of CHF superimposed on bibasilar scarring. Electronically Signed: David Burns MD at 10:41 EST Reading Location ID and State: [facility] / [place] , Service support , Assessment & Plan Assessment/Plan (1) Symptomatic anemia: PLAN: She will undergo an upper endoscopy with deeper enteroscopy in 2 the proximal jejunum to see if there is any signs of acute or chronic GI blood loss in her upper GI tract. If that is negative then she will have an outpatient capsule endoscopy. She was explained alternatives, risk, benefits including outstanding bleeding, infection, sepsis, perforation, need for emergent surgery . She will have an ASA of 3. Charges/Coding Visit Charges Inpatient E&M: 92222 Init Hosp L3
[2022-05-14 17:35] LABS: Bedside Glucose 85 mg/dL (74-106)
[2022-05-14] MEDS: 0.9% Saline Lock 10 ML Syringe IV (19:00)
[2022-05-14] MEDS: Furosemide 40 MG/4 ML Vial IV (19:00)
[2022-05-14] MEDS: Losartan Potassium 100 MG Tablet PO (19:01)
[2022-05-14 22:22] VITALS: BP 133/57; PULSE 65; RESP 18; TEMP 36.7; O2SAT 92
[2022-05-14] MEDS: Ferrous Sulfate 325 MG Tablet PO (22:34)
[2022-05-14] MEDS: Carvedilol 12.5 MG Tablet PO (22:34)
[2022-05-14] MEDS: Sucralfate 1 GM Tablet PO (22:34)
[2022-05-14] MEDS: Doxycycline 100 MG CAPSULE PO (22:34)
[2022-05-14] MEDS: Nystatin/Triamcin Cream Tube 1 APPLIC TOPICAL (22:35)
[2022-05-14] MEDS: Pantoprazole Sodium 40 MG Tablet PO (22:35)
[2022-05-14] MEDS: Atorvastatin Calcium 40 MG Tablet PO (22:35)
[2022-05-14 23:00] LABS: Bedside Glucose 84 mg/dL (74-106)
[2022-05-14 23:20] VITALS: BP 146/63; PULSE 63; RESP 18; TEMP 36.7; O2SAT 92
[2022-05-14 23:35] VITALS: BP 118/63; PULSE 62; RESP 19; TEMP 36.7; O2SAT 93
[2022-05-15] VITALS (19 sets, daily range): BP systolic 101–154; BP diastolic 50–82; PULSE 60–74; RESP 17–20; TEMP 36.2–36.9; O2SAT 90–97
--- NOTE | 2022-05-15 06:00 | EKG12_ITS ---
Test Reason : PRE-OP Blood Pressure : / mmHG Vent. Rate : 072 BPM Atrial Rate : 072 BPM P-R Int : 196 ms QRS Dur : 146 ms QT Int : 442 ms P-R-T Axes : 041 -18 -02 degrees QTc Int : 483 ms Normal sinus rhythm Right bundle branch block Abnormal ECG When compared with ECG of 30-JAN-2022 15:45, T wave inversion now evident in Anterior leads Confirmed by JORGE SANDERSON, BLANCO ([id number]), book or script editor VERONIKA NORIEGA ([id number]) on 05/20/2022 11:38:00 AM Referred By: STEVEN Confirmed By:BLANCO PATEL MD
[2022-05-15 06:35] LABS: Absolute Lymphocyte Count 1.09 X10^3/uL (0.83-4.51); Absolute Neutrophil Count 2.8 X10^3/uL (2.0-7.7); Basophil# 0.05 X10^3/uL; Basophil% 1.1 % (0-1); Eosinophil# 0.11 X10^3/uL; Eosinophils% 2.3 % (0-5); Hematocrit 26.2 % (37-47); Hemoglobin 7.7 g/dL (12.0-15.0); Lymphocyte # 1.09 X10^3/ul (0.83-4.51); Lymphocyte % 23.2 % (19-41); Mean Corp Hgb Conc 29.4 g/dL (32-36); Mean Corpuscular Hgb 21.8 pg (27.0-32.0); Mean Corpuscular Volume 74.2 fL (81-99); Mean Platelet Vol. 9.2 fl (6.2-12.0); Monocyte% 12.8 % (0-10); NRBC Flagged by Analyzer 0 % (0-5); Neutrophil # 2.83 X10^3/uL (2.7-7.7); Neutrophil % 60.4 % (47-70); POSITIVE MORPHOLOGY YES; Platelet Count 294 K/mm3 (150-450); RBC Distribution Width CV 20.5 % (11.6-14.6); Red Blood Count 3.53 M/mm3 (4.2-5.4); White Blood Count 4.7 K/mm3 (4.4-11.0)
[2022-05-15 06:36] LABS: Bedside Glucose 93 mg/dL (74-106)
[2022-05-15 06:42] LABS: Differential Indicated SCAN CRITERIA MET
[2022-05-15 07:02] LABS: Anisocytosis 1+; Differential Comment SCANNED; Hypochromasia 1+; Microcytosis 1+; Ovalocyte RARE
[2022-05-15 07:14] LABS: Anion Gap 8 (5-15); BUN 22 mg/dL (7-18); BUN/Creat Ratio 23.6 RATIO (10-20); Calcium,Total 8.2 mg/dL (8.5-10.1); Chloride 104 mmol/L (98-107); Creatinine, Serum 0.93 mg/dL (0.55-1.02); EST Glomerular Filtration Rate 66 mL/min (>60); Est Glom Filt Rate - Afr Amer 80 mL/min (>60); Glucose 92 mg/dL (74-106); Potassium 3.9 mmol/L (3.5-5.1); Sodium Level 133 mmol/L (136-145); Thyroid Stim Hormone (TSH) 5.21 uIU/mL (0.358-3.74)
[2022-05-15 07:56] LABS: Hemoglobin A1c 5.6 % (3.8-5.6)
--- NOTE | 2022-05-15 08:23 | PN.HOSP_ITS ---
Subjective Subjective Follow-up on acute on chronic anemia/cellulitis/chronic lymphedema: Patient seen and examined. She is going for upper endoscopy with enteroscopy today. Denied any new complaint. She has been diuresing Objective Data Objective Data Vital Signs: Vital Signs Temp Pulse Resp BP Pulse Ox O2 Del Method 97.7 F L 67 18 148/58 H 97 Room Air 05/15/22 07:56 05/15/22 07:56 05/15/22 07:56 05/15/22 07:56 05/15/22 07:56 05/15/22 08:00 Oxygen Delivery Method Room Air Weight: 115.666 kg Body Mass Index (BMI) 42.4 Intake & Output: Intake and Output for Last 24 Hours 05/13/22 05/14/22 05/15/22 23:59 23:59 23:59 Intake Total 600 / 950 750 / 750 Balance 600 / 950 750 / 750 Lab / Micro Data Result Diagrams: 05/15/22 06:10 05/15/22 06:10 Labs: Laboratory Results - last 24 hr 05/14/22 09:50: WBC 6.1, RBC 3.20 L, Hgb 6.5 L, Hct 23.0 L, MCV 71.9 L, MCH 20.3 L, MCHC 28.3 L, RDW Std Deviation 48.3 H, RDW Coeff of Negar 18.6 H, Plt Count 331, MPV 8.9, Immature Gran % (Auto) 0.500, Neut % (Auto) 58.6, Lymph % (Auto) 24.0, [place] % (Auto) 13.6 H, Eos % (Auto) 2.5, Baso % (Auto) 0.8, Absolute Neuts (auto) 3.6, Absolute Lymphs (auto) 1.47, Nucleated RBC % 0 05/14/22 09:50: Sodium 133 L, Potassium 4.1, Chloride 107, Carbon Dioxide 22.0, Anion Gap 4 L, BUN 21 H, Creatinine 1.00, Estim Creat Clear Calc 57.20, Est GFR (MDRD) Af Amer 74, Est GFR (MDRD) Non-Af 61, BUN/Creatinine Ratio 21.0 H, Glucose 100, Calcium 8.6 05/14/22 11:38: PT 15.5 H, INR 1.3, APTT 35.7 05/14/22 11:38: Blood Type O POSITIVE, Antibody Screen POSITIVE H, Antibody Identification ANTI-K 05/14/22 11:38: Crossmatch See Detail 05/14/22 11:38: Antigen Identification K ANTIGEN - NEGATIVE 05/14/22 17:16: POC Glucose 85 05/14/22 22:32: POC Glucose 84 05/15/22 06:10: WBC 4.7, RBC 3.53 L, Hgb 7.7 L, Hct 26.2 L, MCV 74.2 L, MCH 21.8 L, MCHC 29.4 L, RDW Std Deviation 55.0 H, RDW Coeff of Negar 20.5 H, Plt Count 294, MPV 9.2, Immature Gran % (Auto) 0.200, Neut % (Auto) 60.4, Lymph % (Auto) 23.2, [place] % (Auto) 12.8 H, Eos % (Auto) 2.3, Baso % (Auto) 1.1 H, Absolute Neuts (auto) 2.8, Absolute Lymphs (auto) 1.09, Nucleated RBC % 0, Differential Comment SCANNED, Hypochromasia 1+, Anisocytosis 1+, Microcytosis 1+, Ovalocytes RARE 05/15/22 06:10: Sodium 133 L, Potassium 3.9, Chloride 104, Carbon Dioxide 21.0, Anion Gap 8, BUN 22 H, Creatinine 0.93, Estim Creat Clear Calc 61.50, Est GFR (MDRD) Af Amer 80, Est GFR (MDRD) Non-Af 66, BUN/Creatinine Ratio 23.6 H, Glucose 92, Calcium 8.2 L, TSH 5.21 H 05/15/22 06:10: Hemoglobin A1c 5.6 05/15/22 06:13: POC Glucose 93 Micro: Microbiology 05/14/22 10:15 Nasal Secretion SARS-CoV-2 & FLU Antigen (Rapid) - Final Radiography Diagnostic Testing: Radiology Impression Chest X-Ray 05/14/22 10:22 IMPRESSION: Mild degree of CHF superimposed on bibasilar scarring. Electronically Signed: David Burns MD at 10:41 EST , Physical Exam Narrative Physical exam: General: Alert, Oriented x3, Cooperative, morbidly obese HEENT: Atraumatic Oral: Moist Mucosa Neck: Supple Lungs: Diminished to auscultation Cardiovascular: HS I+II, regular, no murmurs Abdomen: Bowel Sounds Present, Soft, Non Tender Extremities: Bilateral leg edema +2, with areas of chronic erythema from venous stasis Skin: No rashes, No breakdown Neurological: Grossly intact Psych/Mental Status: Appropriate Assessment & Plan Assessment/Plan (1) Anemia: PLAN: Plan 1. Acute on chronic anemia/iron deficiency anemia Admitting hemoglobin 6.5; Hb today 7.7 Status post 2 units of packed RBC Will trend 2. Acute GI bleed, history of gastritis on previous endoscopy, GI consulted, patient is going for endoscopy We will follow-up on recommendations 3. Bilateral lower extremity cellulitis on the backdrop of lymphedema, present on admission Continue on doxycycline, IV cefazolin 4. Acute on chronic lymphedema, started on IV Lasix, will trend 5. Morbid obesity, BMI 42.4, complicates care, management, recovery, and prognos is 6. Hypertension, off amlodipine on account of edema Blood pressures controlled on Coreg, losartan Trend labs 7. DVT PPx- SCDs Charges/Coding Visit Charges Inpatient E&M: 39550 Subs Hosp L2
[2022-05-15] MEDS: Acetaminophen 325 MG Tablet 650 MG PO (08:55)
--- NOTE | 2022-05-15 10:37 | CASEMGMT ---
Addendum entered by Beverley Steve 05/15/22 11:02: Provided pt with rx for outpt OT eval for lymphedema. Original Note: PHAM EVANS Assessment: Face to Face with pt for initial transition planning/care coordination assessment. PHAM EVANS introduced self and role at [facility], pt voices understanding and consents to assessment. Pt is A/O x4 and answers all questions appropriately at this time. Pt sitting up in chair in no distress. Care providers, pharmacy, and demographics verified/updated. Admitting Dx:acute on chronic anemia PCP:[facility] Specialists: Pt states she was seeing but is no longer. Preferred Pharmacy: [facility] Insurance: [employer] [facility], [facility] Community Plan Prescription Benefit: yes LNOK: Gracie Obrien, dtr; Danny Olea, son Living Arrangements: Pt lives alone in a mobile home with 3 steps to enter with a rail. Pt reports she still works and is I in ADL's. Pt denies concerns at home. Transportation: Pt drives self and denies concerns with transportation. DME/HHC/SNF: Pt has a BGM with sufficient strips and supplies. Pt denies any other DME. Pt denies hx of HHC or SNF stays. Pt states no concerns with going home at time of dc. Discussed with pt that the hospitalist would like her to follow up with OT for lymphedema. She is aware this is offered at [facility]. Pt is agreeable to doing so. Asked pt if PHAM EVANS could set up the appt for her. Pt states she prefers to set up on her own as she needs to work around her work schedule. Pt aware that a rx will be provided to her prior to dc. Pt states no further concerns/needs. CM to follow. Advised pt to ask CM if any further question/concerns/needs arise, voices understanding. Pt Goal: Home Plan: Home, follow with OT for lymphedema as outpt.
[2022-05-15] MEDS: Carvedilol 12.5 MG Tablet PO ×2 (11:15→20:18)
[2022-05-15 11:35] LABS: Bedside Glucose 82 mg/dL (74-106)
[2022-05-15] MEDS: Lactated Ringers 1,000 ML 15 ML IV (12:05)
[2022-05-15] MEDS: Ondansetron 4 MG/2 ML Vial IV (13:16)
[2022-05-15 14:16] LABS: Bedside Glucose 92 mg/dL (74-106)
[2022-05-15] MEDS: Nystatin/Triamcin Cream Tube 1 APPLIC TOPICAL ×2 (14:45→20:18)
[2022-05-15] MEDS: Losartan Potassium 100 MG Tablet PO (14:48)
[2022-05-15] MEDS: Doxycycline 100 MG CAPSULE PO ×2 (14:48→20:18)
[2022-05-15] MEDS: Pantoprazole Sodium 40 MG Tablet PO ×2 (14:48→20:19)
[2022-05-15 15:01] LABS: Bedside Glucose 88 mg/dL (74-106)
--- NOTE | 2022-05-15 15:27 | WOUNDNOTE ---
Was asked to assess lower legs for compression wraps. patient is refusing wraps at this time. pt does have chronic lymphedema. with the shape of patient's legs, the wraps may end up constricting at the ankles. patient states wraps do not stay in place. encouraged patient to at least keep legs elevated while sitting up in the recliner chair. also encouraged patient to follow at the lymphedema clinic at discharge at [facility] for possible lymphedema pumps.
--- NOTE | 2022-05-15 15:47 | OP.CCLET_ITS ---
05/15/2022 Riki Clark Re : Upper GI endoscopy procedure for Evelyn Tinsleyr Amber This procedure was performed on April. My impressions and recommendations are as follows: Impressions : - Normal esophagus. - Chronic gastritis with hemorrhage. Treated with a heater probe. - No gross lesions in the fourth portion of the duodenum. - No specimens collected. Recommendations : - [facility] patient to [facility]. - Resume regular diet today. -Cholestyramine 4 g at night for severe bile gastritis resulting in bleeding in the stomach. -Protonix 40 mg p.o. twice daily - Continue present medications. My findings are described in the full procedure note, which is enclosed. If I can be of further assistance, please feel free to contact me at . Sincerely, Jesús De La Fuente, 05/15/2022 3:46:41 PM This report has been signed electronically.
--- NOTE | 2022-05-15 15:47 | OP.EGD_ITS ---
Patient Name: Evelyn Olea Procedure Date: 05/15/2022 1:21 PM Date of : 1965 Age: 56 Procedure: Upper GI endoscopy Indications: Iron deficiency anemia secondary to chronic blood loss, Iron deficiency anemia Providers: Jesús De La Fuente DO Medicines: Propofol per Anesthesia Patient Profile: This is a 56 year old female. Refer to note in patient chart for documentation of history and physical. Patient has symptoms of chronic epigastric abdominal pain. Complications: No immediate complications. Procedure: Pre-Anesthesia Assessment: - Prior to the procedure, a History and Physical was performed, and patient medications and allergies were reviewed. The patient is competent. The risks and benefits of the procedure and the sedation options and risks were discussed with the patient. All questions were answered and informed consent was obtained. Patient identification and proposed procedure were verified by the physician in the pre-procedure area. Mental Status Examination: alert and oriented. Airway Examination: normal oropharyngeal airway and neck mobility. Respiratory Examination: clear to auscultation. CV Examination: normal. Prophylactic Antibiotics: The patient does not require prophylactic antibiotics. Prior Anticoagulants: The patient has taken no previous anticoagulant or antiplatelet agents. ASA Grade Assessment: II - A patient with mild systemic disease. After reviewing the risks and benefits, the patient was deemed in satisfactory condition to undergo the procedure. The anesthesia plan was to use monitored anesthesia care (MAC). Immediately prior to administration of medications, the patient was re-assessed for adequacy to receive sedatives. The heart rate, respiratory rate, oxygen saturations, blood pressure, adequacy of pulmonary ventilation, and response to care were monitored throughout the procedure. The physical status of the patient was re-assessed after the procedure. After obtaining informed consent, the endoscope was passed under direct vision. Throughout the procedure, the patient's blood pressure, pulse, and oxygen saturations were monitored continuously. The Colonoscope was introduced through the mouth, and advanced to the second part of duodenum. The upper GI endoscopy was accomplished without difficulty. The patient tolerated the procedure well. Scope In: 1:25:48 PM Scope Out: 1:36:06 PM Total Procedure Duration Time 0 hours 10 minutes 18 seconds Findings: The examined esophagus was normal. Diffuse severe inflammation with hemorrhage characterized by congestion (edema), erosions, erythema, friability, granularity and deep ulcerations was found in the gastric body, on the anterior wall of the stomach, on the greater curvature of the stomach, on the lesser curvature of the stomach and on the posterior wall of the stomach. Coagulation for hemostasis using heater probe was successful. Estimated blood loss was minimal. No gross lesions were noted in the fourth portion of the duodenum. Impression: - Normal esophagus. - Chronic gastritis with hemorrhage. Treated with a heater probe. - No gross lesions in the fourth portion of the duodenum. - No specimens collected. Recommendation: - Return patient to [facility] for ongoing care. - Resume regular diet today. -Cholestyramine 4 g at night for severe bile gastritis resulting in bleeding in the stomach. -Protonix 40 mg p.o. twice daily - Continue present medications. Procedure Code(s): --- Professional --- 58070, Esophagogastroduodenoscopy, flexible, transoral; with control of bleeding, any method CPT copyright 2017 [employer]. All rights reserved. The codes documented in this report are preliminary and upon hat cleaner review may be revised to meet current compliance requirements. Jesús De La Fuente DO 05/15/2022 3:46:41 PM This report has been signed electronically. Number of Addenda: 0 Note Initiated On: 05/15/2022 1:21 PM
[2022-05-15] MEDS: Furosemide 40 MG/4 ML Vial IV (16:26)
[2022-05-15] MEDS: Ferrous Sulfate 325 MG Tablet PO (16:26)
[2022-05-15] MEDS: 0.9% Saline Lock 10 ML Syringe IV (16:30)
[2022-05-15] MEDS: Sucralfate 1 GM Tablet PO (20:17)
[2022-05-15] MEDS: Atorvastatin Calcium 40 MG Tablet PO (20:17)
[2022-05-15 20:36] LABS: Bedside Glucose 125 mg/dL (74-106)
[2022-05-16 02:10] VITALS: BP 120/57; PULSE 63; RESP 17; TEMP 36.8; O2SAT 95
[2022-05-16] MEDS: 0.9% Saline Lock 10 ML Syringe IV (06:07)
[2022-05-16] MEDS: Ondansetron 4 MG/2 ML Vial IV (06:07)
[2022-05-16] MEDS: Acetaminophen 325 MG Tablet 650 MG PO (06:09)
[2022-05-16] MEDS: Levothyroxine 100 MCG Tablet 200 MCG PO (06:10)
[2022-05-16 06:35] LABS: Bedside Glucose 121 mg/dL (74-106)
[2022-05-16 06:50] LABS: Absolute Lymphocyte Count 1.11 X10^3/uL (0.83-4.51); Absolute Neutrophil Count 2.3 X10^3/uL (2.0-7.7); Basophil# 0.06 X10^3/uL; Basophil% 1.4 % (0-1); Eosinophil# 0.17 X10^3/uL; Eosinophils% 3.9 % (0-5); Hematocrit 26.4 % (37-47); Hemoglobin 7.9 g/dL (12.0-15.0); Lymphocyte # 1.11 X10^3/ul (0.83-4.51); Lymphocyte % 25.2 % (19-41); Mean Corp Hgb Conc 29.9 g/dL (32-36); Mean Corpuscular Hgb 22.3 pg (27.0-32.0); Mean Corpuscular Volume 74.6 fL (81-99); Mean Platelet Vol. 8.9 fl (6.2-12.0); Monocyte# 0.78 X10^3/uL; Monocyte% 17.7 % (0-10); NRBC Flagged by Analyzer 0 % (0-5); Neutrophil # 2.28 X10^3/uL (2.7-7.7); Neutrophil % 51.6 % (47-70); POSITIVE MORPHOLOGY YES; Platelet Count 280 K/mm3 (150-450); RBC Distribution Width CV 20.2 % (11.6-14.6); RBC Distribution Width SD 54.2 fl (35.1-43.9); Red Blood Count 3.54 M/mm3 (4.2-5.4); White Blood Count 4.4 K/mm3 (4.4-11.0)
[2022-05-16 06:52] LABS: Differential Indicated SCAN CRITERIA MET
--- NOTE | 2022-05-16 07:00 | PCM.PROGNOTE ---
Subjective Subjective Patient underwent upper endoscopy yesterday and was discovered to have severe bile gastritis with linear bleeding ulcers secondary to bile in the gastric body extending up into the gastric cardia. Objective Data Objective Data Vital Signs: Vital Signs Temp Pulse Resp BP Pulse Ox O2 Del Method O2 Flow Rate 97.8 F 70 16 138/66 H 92 Room Air 1 05/16/22 07:24 05/16/22 07:24 05/16/22 07:24 05/16/22 07:24 05/16/22 10:19 05/16/22 07:24 05/16/22 10:19 Oxygen Flow Rate (L/min) [ 2 AMBULATING with Oxygen #2] Oxygen Flow Rate (L/min) [ 1 AMBULATING with Oxygen #1] Oxygen Flow Rate (L/min) 2 Oxygen Delivery Method Room Air Weight: 255 lb Body Mass Index (BMI) 42.4 Intake & Output: Intake and Output for Last 24 Hours 05/14/22 05/15/22 05/16/22 23:59 23:59 23:59 Intake Total 600 / 950 1590 / 1590 60 / 60 Balance 600 / 950 1590 / 1590 60 / 60 Lab / Micro Data Result Diagrams: 05/16/22 06:25 05/16/22 06:25 Labs: Laboratory Results - last 24 hr 05/15/22 13:56: POC Glucose 92 05/15/22 14:42: POC Glucose 88 05/15/22 20:15: POC Glucose 125 H 05/16/22 06:13: POC Glucose 121 H 05/16/22 06:25: WBC 4.4, RBC 3.54 L, Hgb 7.9 L, Hct 26.4 L, MCV 74.6 L, MCH 22.3 L, MCHC 29.9 L, RDW Std Deviation 54.2 H, RDW Coeff of Negar 20.2 H, Plt Count 280, MPV 8.9, Immature Gran % (Auto) 0.200, Neut % (Auto) 51.6, Lymph % (Auto) 25.2, [place] % (Auto) 17.7 H, Eos % (Auto) 3.9, Baso % (Auto) 1.4 H, Absolute Neuts (auto) 2.3, Absolute Lymphs (auto) 1.11, Nucleated RBC % 0, Differential Comment SCANNED, Anisocytosis 1+, Microcytosis 1+ 01/20/23 06:25: Sodium 134 L, Potassium 3.9, Chloride 103, Carbon Dioxide 22.0, Anion Gap 9, BUN 24 H, Creatinine 1.12 H, Estim Creat Clear Calc 51.07, Est GFR (MDRD) Af Amer 65, Est GFR (MDRD) Non-Af 54 L, BUN/Creatinine Ratio 21.4 H, Glucose 113 H, Calcium 8.1 L, Total Bilirubin 0.70, AST 25, ALT 19, Alkaline Phosphatase 52, Total Protein 9.3 H, Albumin 2.7 L, Globulin 6.6 H, Albumin/Globulin Ratio 0.4 L Micro: Microbiology 05/14/22 10:15 Nasal Secretion SARS-CoV-2 & FLU Antigen (Rapid) - Final Physical Exam Narrative Physical exam: General: Alert, Oriented x3, Cooperative, morbidly obese HEENT: Atraumatic Oral: Moist Mucosa Neck: Supple Lungs: Diminished to auscultation Cardiovascular: HS I+II, regular, no murmurs Abdomen: Bowel Sounds Present, Soft, Non Tender Extremities: Bilateral leg edema +2, with areas of chronic erythema from venous stasis Skin: No rashes, No breakdown Neurological: Grossly intact Psych/Mental Status: Appropriate Assessment & Plan Assessment/Plan (1) Symptomatic anemia: PLAN: Patient's hemoglobin seems stable. She will need to be DC'd on PPI therapy twice daily Carafate twice daily and cholestyramine daily. She can follow-up in office for capsule endoscopy. Charges/Coding Visit Charges Inpatient E&M: 47070 Subs Hosp L2
[2022-05-16 07:11] LABS: Anisocytosis 1+; Differential Comment SCANNED; Microcytosis 1+
[2022-05-16 07:21] LABS: ALB/GLOB Ratio 0.4 RATIO (0.9-2.4); AST(SGOT) 25 U/L (15-37); Alanine Aminotransfer ALT/SGPT 19 U/L (13-56); Albumin, Serum 2.7 g/dL (3.2-5.0); Alkaline Phosphatase 52 U/L (45-117); Anion Gap 9 (5-15); BUN 24 mg/dL (7-18); BUN/Creat Ratio 21.4 RATIO (10-20); Calcium,Total 8.1 mg/dL (8.5-10.1); Chloride 103 mmol/L (98-107); Creatinine, Serum 1.12 mg/dL (0.55-1.02); EST Glomerular Filtration Rate 54 mL/min (>60); Est Glom Filt Rate - Afr Amer 65 mL/min (>60); Estimated Creatinine Clearance 51.07 ml/min; Globulin 6.6 g/dL (2.2-4.2); Glucose 113 mg/dL (74-106); Potassium 3.9 mmol/L (3.5-5.1); Protein, Total 9.3 g/dL (6.4-8.2); Sodium Level 134 mmol/L (136-145)
[2022-05-16 07:24] VITALS: BP 138/66; PULSE 70; RESP 16; TEMP 36.6; O2SAT 92
[2022-05-16] MEDS: Sucralfate 1 GM Tablet PO (07:34)
[2022-05-16] MEDS: Ferrous Sulfate 325 MG Tablet PO (07:34)
--- NOTE | 2022-05-16 08:44 | DCINST_ITS ---
Discharge Instructions Diet Discharge Diet: Low fat / Low cholesterol, 1800 Calorie Control Diet and 2000 mg Sodium Diet Activity Discharge Activity: Return to Normal Activity Follow Up Care Test Results: Test results from this visit will be discussed in further detail at your follow- up appointment, if applicable. Discharge Plan Admission Admit Date/Time: 05/15/22 09:46 Primary Reason for Your Visit: Anemia Attending Provider: Sasha Horne Primary Care Provider: Riki Clark Consulting Providers: Mukesh Ye Instructions Additional Instructions / Restrictions: Take note of changes to your medication Continue to weigh yourself every day Follow-up with your primary care doctor within a week for repeat blood work to follow-up on kidney function Follow-up with the referrals given to you?vascular surgery, lymphedema clinic and pulmonology You are being discharged with oxygen. Continue to use your oxygen all the time. Continue to use your incentive spirometer. Continue to remain active and eat healthy. Be careful of going near open flames whilst on oxygen. Discharge Orders/Prescriptions Prescriptions: New doxycycline monohydrate 100 mg Capsule 100 mg PO BID 5 Days Qty: 10 0RF losartan 100 mg Tablet 100 mg PO DAILY 30 Days Qty: 30 0RF furosemide [Lasix] 40 mg tablet 40 mg PO DAILY 30 Days Qty: 30 0RF Continued Levemir FlexTouch U-100 Insuln 100 UNITS/ML insulin pen 74 units SC QHS atorvastatin 40 MG tablet 40 mg PO QHS ferrous sulfate [FeroSul] 325 mg (65 mg iron) Tablet 325 mg PO BID carvedilol 12.5 mg tablet 12.5 mg PO BID sumatriptan succinate 50 mg tablet 50 mg PO DAILY PRN (Reason: Migraine Headache) fluorometholone 0.1 % drops,suspension 1 drp EACH EYE DAILY PRN (Reason: EYE INFLAMMATION) levothyroxine 200 mcg tablet 200 mcg PO MOTUWETHFRSA Janumet 50-1,000 mg tablet 1 tab PO BIDCM Fiasp FlexTouch U-100 Insulin 100 unit/mL (3 mL) insulin pen 16 unit SUBCUT DAILY Fiasp FlexTouch U-100 Insulin 100 unit/mL (3 mL) insulin pen 18 unit SUBCUT BID sucralfate [Carafate] 1 gram tablet 1 g PO BID ascorbic acid (vitamin C) [Vitamin C] 500 mg capsule, extended release 500 mg PO BID albuterol sulfate [Ventolin HFA] 90 mcg/actuation HFA aerosol inhaler 2 puff inhalation Q6H PRN (Reason: Shortness Of Breath) Changed omeprazole 40 mg capsule,delayed release(DR/EC) 40 mg PO BIDCM 30 Days Qty: 60 0RF Discontinued amlodipine 10 mg tablet 10 mg PO DAILY Referrals / Follow Up: Esa Garcia MD [Med Staff - Active Staff] - 05/29/22 3:30 pm Nathaniel Carlson MD [Med Staff - Active Staff] - 06/02/22 9:15 am Riki Clark MD [Primary Care Provider] - Disposition Disposition (needs filled in before D/C Order can be placed): Home, Self Care
[2022-05-16 10:19] VITALS: O2SAT 84; O2SAT 86; O2SAT 90; O2SAT 92
[2022-05-16] MEDS: Losartan Potassium 100 MG Tablet PO (10:30)
[2022-05-16] MEDS: Doxycycline 100 MG CAPSULE PO (10:30)
[2022-05-16] MEDS: Carvedilol 12.5 MG Tablet PO (10:31)
[2022-05-16] MEDS: Furosemide 40 MG Tablet PO (10:31)
[2022-05-16] MEDS: Pantoprazole Sodium 40 MG Tablet PO (10:31)
--- NOTE | 2022-05-16 10:36 | CASEMGMT ---
Pt qualifies for home oxygen. PHAM CM in to pt room, provided pt with a verbal local in network list of DME companies, pt chose [employer]. Discussed with pt homegoing oxygen process, pt verbalizes verbalizes understanding. Pt has a pox at home. Pt denies further needs. Referral sent to [employer] via [facility]port at this time.
--- NOTE | 2022-05-16 10:45 | DS.PCM_ITS ---
Providers Date of Admission: 05/15/22 Date of Discharge: 05/16/22 Primary Care Physician: Dr. Riki Clark MD Consultations 05/14/22 17:42 Consult: Gastroenterology Routine Consulting Provider: [facility] Reason for Consult: anemia EMERGENT Consult: No MD Notified: Yes Date Notified: 05/14/22 Time Notified: 17:09 Method of Notification: Verbal Reason For Visit: ACUTE ON CHRONIC ANEMIA Diagnosis Discharge Diagnosis (1) Anemia: Status: Acute Code(s): D64.9 - Anemia, unspecified Plan 1. Acute on chronic anemia/iron deficiency anemia 2. Acute GI bleed 3. Bilateral lower extremity cellulitis on the backdrop of lymphedema, present on admission 4. Acute on chronic lymphedema 5. Morbid obesity 6. Hypertension Medications at Discharge Home Medications insulin detemir U-100 100 unit/mL (3 mL) subcutaneous pen (Levemir FlexTouch U- 100 Insulin) 74 units subcut QHS DIABETES 04/06/13 atorvastatin 40 mg tablet 40 mg PO QHS cholesterol 05/23/17 ferrous sulfate 325 mg (65 mg iron) tablet (FeroSul) 325 mg PO BID supplement 05/30/21 albuterol sulfate 90 mcg/actuation aerosol inhaler (Ventolin HFA) 2 puff inhalation Q6H PRN Shortness Of Breath 05/14/22 ascorbic acid (vitamin C) 500 mg capsule,extended release (Vitamin C) 500 mg PO BID SUPPLEMENT 05/14/22 carvedilol 12.5 mg tablet 12.5 mg PO BID HEART 05/14/22 fluorometholone 0.1 % eye drops,suspension 1 drp EACH EYE DAILY PRN EYE INFLAMMATION 05/14/22 insulin aspart (niacinamide)(U-100) 100 unit/mL(3 mL) subcutaneous pen (Fiasp FlexTouch U-100 Insulin) 16 unit subcut DAILY DIABETES 05/14/22 insulin aspart (niacinamide)(U-100) 100 unit/mL(3 mL) subcutaneous pen (Fiasp FlexTouch U-100 Insulin) 18 unit subcut BID DIABETES 05/14/22 levothyroxine 200 mcg tablet 200 mcg PO MOTUWETHFRSA THYROID 05/14/22 sitagliptin phosphate 50 mg-metformin 1,000 mg tablet (Janumet) 1 tab PO BIDCM BLOOD SUGARS 05/14/22 sucralfate 1 gram tablet (Carafate) 1 g PO BID GERD 05/14/22 sumatriptan succinate 50 mg tablet 50 mg PO DAILY PRN Migraine Headache 05/14/22 doxycycline monohydrate 100 mg capsule 100 mg PO BID 5 days #10 caps 05/16/22 furosemide 40 mg tablet (Lasix) 40 mg PO DAILY 30 days #30 tabs 05/16/22 losartan 100 mg tablet 100 mg PO DAILY 30 days #30 tabs 05/16/22 omeprazole 40 mg capsule,delayed release 40 mg PO BIDCM GERD 30 days #60 caps 05/16/22 Hospital Course Operations None Procedures EGD (05/15/22) Summary of Care Provided Minutes Spent on Discharge: 35 Hospital Course: 56y/o multiple comorbidities significant for chronic lymphedema who comes in with complaints of worsening leg swelling and redness over her left leg. Work- up in the ED was significant for hemoglobin of 6.5. Patient has history of EGD secondary to chronic gastritis. She was admitted to the [facility] floor and transfused 2 units of packed RBCs. She also underwent EGD on 05/15/22. EGD showed diffuse severe inflammation with hemorrhage characterized by congestion(edema), erosions, erythema, friability, granularity, deep ulcerations in the gastric body, 2 wall of the stomach greater curvature, lesser curvature in the posterior wall of the stomach. Coagulation for hemostasis using heater probe was successful. She was continued on IV PPI. She also received doxycycline and cefazolin for her left lower extremity cellulitis. She did also receive a couple doses of IV Lasix Patient's hemoglobin remained stable. She was discharged on Lasix 40 mg p.o. daily, 5 more days of doxycycline. 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 She was on room air at rest but did require 2 L with exertion. Physical Exam Narrative Physical exam: General: Alert, Oriented x3, Cooperative, morbidly obese HEENT: Atraumatic Oral: Moist Mucosa Neck: Supple Lungs: Diminished to auscultation Cardiovascular: HS I+II, regular, no murmurs Abdomen: Bowel Sounds Present, Soft, Non Tender Extremities: Bilateral leg edema +1, with areas of chronic erythema from venous stasis Skin: No rashes, No breakdown Neurological: Grossly intact Psych/Mental Status: Appropriate Weight / BMI Weight Weight: 115.666 kg Body Mass Index (BMI) 42.4 ABG / Lab / Microbiology Data Result Diagrams: 05/16/22 06:25 05/16/22 06:25 Laboratory: Laboratory Results - last 24 hr 05/15/22 11:08: POC Glucose 82 05/15/22 13:56: POC Glucose 92 05/15/22 14:42: POC Glucose 88 05/15/22 20:15: POC Glucose 125 H 05/16/22 06:13: POC Glucose 121 H 05/16/22 06:25: WBC 4.4, RBC 3.54 L, Hgb 7.9 L, Hct 26.4 L, MCV 74.6 L, MCH 22.3 L, MCHC 29.9 L, RDW Std Deviation 54.2 H, RDW Coeff of Negar 20.2 H, Plt Count 280, MPV 8.9, Immature Gran % (Auto) 0.200, Neut % (Auto) 51.6, Lymph % (Auto) 25.2, [place] % (Auto) 17.7 H, Eos % (Auto) 3.9, Baso % (Auto) 1.4 H, Absolute John ts (auto) 2.3, Absolute Lymphs (auto) 1.11, Nucleated RBC % 0, Differential Comment SCANNED, Anisocytosis 1+, Microcytosis 1+ 05/16/22 06:25: Sodium 134 L, Potassium 3.9, Chloride 103, Carbon Dioxide 22.0, Anion Gap 9, BUN 24 H, Creatinine 1.12 H, Estim Creat Clear Calc 51.07, Est GFR (MDRD) Af Amer 65, Est GFR (MDRD) Non-Af 54 L, BUN/Creatinine Ratio 21.4 H, Glucose 113 H, Calcium 8.1 L, Total Bilirubin 0.70, AST 25, ALT 19, Alkaline Phosphatase 52, Total Protein 9.3 H, Albumin 2.7 L, Globulin 6.6 H, Albumin/Globulin Ratio 0.4 L Microbiology: Microbiology 05/14/22 10:15 Nasal Secretion SARS-CoV-2 & FLU Antigen (Rapid) - Final D/C Instructions Discharge Diet: Low fat / Low cholesterol, 1800 Calorie Control Diet and 2000 mg Sodium Diet Meaningful Use Info Meaningful Use Diagnoses (Choose all that apply): None applicable Discharge Plan Admission Admit Date/Time: 05/15/22 09:46 Primary Reason for Your Visit: Anemia Attending Provider: Sasha Horne Primary Care Provider: Riki Clark Consulting Providers: Mukesh Ye Instructions Additional Instructions / Restrictions: Take note of changes to your medication Continue to weigh yourself every day Follow-up with your primary care doctor within a week for repeat blood work to follow-up on kidney function Follow-up with the referrals given to you?vascular surgery, lymphedema clinic and pulmonology You are being discharged with oxygen. Continue to use your oxygen all the time. Continue to use your incentive spirometer. Continue to remain active and eat healthy. Be careful of going near open flames whilst on oxygen. Discharge Orders/Prescriptions Prescriptions: New doxycycline monohydrate 100 mg Capsule 100 mg PO BID 5 Days Qty: 10 0RF losartan 100 mg Tablet 100 mg PO DAILY 30 Days Qty: 30 0RF furosemide [Lasix] 40 mg tablet 40 mg PO DAILY 30 Days Qty: 30 0RF Continued Levemir FlexTouch U-100 Insuln 100 UNITS/ML insulin pen 74 units SC QHS atorvastatin 40 MG tablet 40 mg PO QHS ferrous sulfate [FeroSul] 325 mg (65 mg iron) Tablet 325 mg PO BID carvedilol 12.5 mg tablet 12.5 mg PO BID sumatriptan succinate 50 mg tablet 50 mg PO DAILY PRN (Reason: Migraine Headache) fluorometholone 0.1 % drops,suspension 1 drp EACH EYE DAILY PRN (Reason: EYE INFLAMMATION) levothyroxine 200 mcg tablet 200 mcg PO MOTUWETHFRSA Janumet 50-1,000 mg tablet 1 tab PO BIDCM Fiasp FlexTouch U-100 Insulin 100 unit/mL (3 mL) insulin pen 16 unit SUBCUT DAILY Fiasp FlexTouch U-100 Insulin 100 unit/mL (3 mL) insulin pen 18 unit SUBCUT BID sucralfate [Carafate] 1 gram tablet 1 g PO BID ascorbic acid (vitamin C) [Vitamin C] 500 mg capsule, extended release 500 mg PO BID albuterol sulfate [Ventolin HFA] 90 mcg/actuation HFA aerosol inhaler 2 puff inhalation Q6H PRN (Reason: Shortness Of Breath) Changed omeprazole 40 mg capsule,delayed release(DR/EC) 40 mg PO BIDCM 30 Days Qty: 60 0RF Discontinued amlodipine 10 mg tablet 10 mg PO DAILY Referrals / Follow Up: Esa Garcia MD [Med Staff - Active Staff] - 05/29/22 3:30 pm Nathaniel Carlson MD [Med Staff - Active Staff] - 06/02/22 9:15 am Riki Clark MD [Primary Care Provider] - Disposition Disposition (needs filled in before D/C Order can be placed): Home, Self Care Charges/Coding Visit Charges Inpatient E&M: 20573 Disch Hosp >30min
== END 2022-05-16 12:25 | disposition home or self-care (01) | DRG 811 ==
LOC: ED 14:47 → MS3 17:27
PROVIDERS: Anesthesiology; Internal Medicine Gastroenterology; Admitting Provider Internal Medicine; Emergency Provider Emergency Medicine; PCP Family Medicine; Visit Provider Internal Medicine
PROC: 0DJ08ZZ Inspection of Upper Intestinal Tract, Via Natural or Artificial Opening Endoscopic (ICD-10-PCS; CPT 43235; principal; 2022-05-15 14:25)
DX: D50.0 Iron deficiency anemia secondary to blood loss (chronic) (principal); K29.51 Unspecified chronic gastritis with bleeding; Z68.41 Body mass index [BMI] 40.0-44.9, adult; L03.115 Cellulitis of right lower limb; L03.116 Cellulitis of left lower limb; E11.9 Type 2 diabetes mellitus without complications; Z79.4 Long term (current) use of insulin; E66.01 Morbid (severe) obesity due to excess calories; I10 Essential (primary) hypertension; E78.00 Pure hypercholesterolemia, unspecified; I89.0 Lymphedema, not elsewhere classified; K31.89 Other diseases of stomach and duodenum
CPT/HCPCS: 36415; 71046; 80048; 80053; 82962; 83036; 84443; 85025; 85610; 85730; 86850; 86870; 86900; 86901; 86902; 86905; 86920; 86921; 86922; 87428; 93005; 99284; J7120; P9016; A4216; J1940; J2405

== ENCOUNTER → 2022-07-22 | Outpatient (CLI) | payer MEDICARE, MEDICAID, SELFPAY ==
[2022-07-22 12:30] LABS: Hematocrit 28.9 % (37-47); Hemoglobin 8.6 g/dL (12.0-15.0); Mean Corp Hgb Conc 29.8 g/dL (32-36); Mean Corpuscular Volume 80.5 fL (81-99); Mean Platelet Vol. 8.8 fl (6.2-12.0); Platelet Count 289 K/mm3 (150-450); RBC Distribution Width CV 19.2 % (11.6-14.6); RBC Distribution Width SD 56.6 fl (35.1-43.9); Red Blood Count 3.59 M/mm3 (4.2-5.4); White Blood Count 4.7 K/mm3 (4.4-11.0)
[2022-07-22 13:06] LABS: BNP,B-Type NATRIURETIC PEPTIDE 73.7 pg/mL (0-100)
[2022-07-22 13:16] LABS: Anion Gap 5 (5-15); BUN 18 mg/dL (7-18); BUN/Creat Ratio 19.9 RATIO (10-20); Calcium,Total 8.9 mg/dL (8.5-10.1); Chloride 104 mmol/L (98-107); EST Glomerular Filtration Rate 69 mL/min (>60); Est Glom Filt Rate - Afr Amer 83 mL/min (>60); Glucose 108 mg/dL (74-106); Potassium 4.2 mmol/L (3.5-5.1); Sodium Level 132 mmol/L (136-145)
== END | disposition home or self-care (01) ==
LOC: LAB 11:58
PROVIDERS: PCP Family Medicine; Visit Provider Internal Medicine Cardiovascular Disease
DX: I11.0 Hypertensive heart disease with heart failure (principal); I50.9 Heart failure, unspecified; E11.9 Type 2 diabetes mellitus without complications
CPT/HCPCS: 36415; 80048; 83880; 85027

== ENCOUNTER → 2022-08-26 | Outpatient (CLI) | payer MEDICARE, MEDICAID, SELFPAY ==
--- NOTE | 2022-08-26 12:40 | ECHOD_ITS ---
Reason For Study: CHF Procedure This was a 2D Doppler, Color Flow transthoracic echocardiogram. Exam performed in department. Left Ventricle Normal LV size. Moderate concentric left ventricular hypertrophy. The left ventricular ejection fraction is 65 %. Normal diastololic function. Right Ventricle Normal right ventricle. Atria The left and right atria are normal. Mitral Valve Mild mitral annular calcification. Trivial mitral valve insufficiency. Tricuspid Valve Trivial tricuspid valve insufficiency. Right ventricular systolic pressure estimated to be 41 mmHg. Mild pulmonary hypertension. Aortic Valve Trisinus/trileaflet aortic valve. Mild (1+) aortic valve insufficiency. Pulmonic Valve The pulmonic valve is not well visualized. Great Vessels Normal sized aortic root. Pericardium/Pleural No pericardial effusion. MMode/2D Measurements & Calculations LVIDd: 4.3 cm IVSd: 1.4 cm Ao root diam: 3.4 cm LVIDs: 2.4 cm LVPWd: 1.5 cm LA dimension: 5.0 cm RVDd: 4.3 cm FS: 43.7 % LAV(MOD-bp): 60.7 ml LA A4 area: 21.1 cm2 RA A4 area: 18.1 cm2 LAV(MOD-bp) Indexed: 28.1 ml/m2 LAV(MOD-sp2): 61.0 ml LAV(MOD-sp4): 61.1 ml Time Measurements MV dec time: 0.27 sec Doppler Measurements & Calculations MV E max goldy: 84.6 cm/sec Lat Peak E' Goldy: 13.2 cm/sec Med Peak E' Goldy: 9.6 cm/sec MV A max goldy: 84.6 cm/sec E/E' lat: 6.4 E/E' med: 8.8 MV E/A: 1.0 MV V2 max: 98.7 cm/sec MV P1/2t max goldy: 89.0 cm/sec Ao V2 max: 133.9 cm/sec MV max P.9 mmHg MV P1/2t: 88.3 msec Ao max P.2 mmHg MV V2 mean: 60.1 cm/sec MV dec slope: 295.0 cm/sec2 MV mean P.7 mmHg MVA(P1/2t): 2.5 cm2 MV V2 VTI: 33.6 cm AI max goldy: 340.5 cm/sec LV V1 max: 126.8 cm/sec PA V2 max: 140.3 cm/sec AI max P.4 mmHg LV V1 max P.4 mmHg LV V1 mean P.3 mmHg AI dec slope: 188.7 cm/sec2 LV V1 mean: 85.0 cm/sec AI P1/2t: 528.4 msec LV V1 VTI: 29.0 cm TR max goldy: 299.3 cm/sec PI dec slope: 147.5 cm/sec2 TR max P.8 mmHg ECHO/Echo Complete Interpretation Summary Moderate concentric left ventricular hypertrophy. The left ventricular ejection fraction is 65-70 %. Mild mitral annular calcification. Mild pulmonary hypertension. Mild (1+) aortic valve insufficiency. Mildly increased LVOT gradient. Ordering Physician: Felicitas Elizondo Referring Physician: Riki Clark Performed By: Rick Florence RCS
== END | disposition home or self-care (01) ==
LOC: CVS 12:38
PROVIDERS: PCP Family Medicine; Referring Provider Internal Medicine Cardiovascular Disease; Visit Provider Internal Medicine Cardiovascular Disease
DX: R94.31 Abnormal electrocardiogram [ECG] [EKG] (principal); I50.9 Heart failure, unspecified; I11.0 Hypertensive heart disease with heart failure; E11.9 Type 2 diabetes mellitus without complications
CPT/HCPCS: 93306

== ENCOUNTER 2022-10-24 09:29 | Outpatient (RCR) | payer MEDICARE, MEDICAID, SELFPAY ==
--- NOTE | 2022-10-24 13:12 | PCM.WC.HP ---
History of Present Illness Date of Service: 10/24/22 Chief Complaint: RLE wound History of Wound: Patient is 56 y/o F who presents to the wound care center today for evaluation and management of a R lower leg wound. She has been previously seen by her PCP who prescribed antibiotics which she completed. She reports this wound has been present for a few months. She is not sure how it started or if any provoked it. It has been progressively getting larger in size though overall stable over the last few weeks. She has significant bilateral lower extremity edema. She has diagnosis of lymphedema. She does not wear compression, reports the wraps slip and no stockings fit her right. She has never used lymphedema pumps. I actually saw this patient in the vascular surgery clinic in May 2022 and ordered venous duplex, measured compression stockings, and advised referral to lymphedema clinic; she did not comply with than of these recommendations. She does not elevate her legs throughout the day. She sleeps in a chair. States her back problems prevent her from being able to lie flat. She reports she has had wounds similar to this in the past on her LLE but those typically heal on their own over a couple weeks. Her medical history is also significant for diabetes (reports last A1c was around 5), CHF, COPD. [facility] Medical History Abdominal pain Abnormal echocardiogram Anemia Anxiety Arthritis Asthma Bilateral lower extremity edema Cellulitis of left leg CHF (congestive heart failure) Cholelithiasis Chronic pulmonary embolism without acute cor pulmonale COPD (chronic obstructive pulmonary disease) COVID-19 virus infection (~01/2022) Depression Dietary restriction Easy bruising Epigastric pain Essential hypertension GERD (gastroesophageal reflux disease) GI bleed History of pain when walking Hyperlipidemia Hypothyroid Insulin dependent diabetes mellitus Leg cramps Low iron Migraines Morbid obesity with BMI of 40.0-44.9, adult Nausea Neuropathy Non-smoker Nontoxic multinodular goiter Obstructive lung disease (generalized) Postoperative primary hypothyroidism Pulmonary embolism Restless legs Shortness of breath on exertion Symptomatic anemia Thyroid cancer Type 2 diabetes mellitus Wears glasses Home Medications ferrous sulfate 325 mg (65 mg iron) tablet (FeroSul) 325 mg PO BID supplement 05/30/21 [History Last Taken 05/14/22] albuterol sulfate 90 mcg/actuation aerosol inhaler (Ventolin HFA) 2 puff inhalation Q6H PRN Shortness Of Breath 05/14/22 [History Last Taken 05/14/22] fluorometholone 0.1 % eye drops,suspension 1 drp EACH EYE DAILY PRN EYE INFLAMMATION 05/14/22 [History Last Taken 05/13/22] levothyroxine 200 mcg tablet 200 mcg PO MOTUWETHFRSA THYROID 05/14/22 [History Last Taken 05/14/22] sitagliptin phosphate 50 mg-metformin 1,000 mg tablet (Janumet) 1 tab PO BIDCM BLOOD SUGARS 05/14/22 [History Last Taken 05/14/22] sucralfate 1 gram tablet (Carafate) 1 g PO BID GERD 05/14/22 [History Last Taken 05/14/22] sumatriptan succinate 50 mg tablet 50 mg PO DAILY PRN Migraine Headache 05/14/22 [History Last Taken 05/13/22] furosemide 40 mg tablet (Lasix) 40 mg PO DAILY 30 days #30 tabs 05/16/22 [Rx Last Taken Unknown] ascorbic acid (vitamin C) 500 mg capsule,extended release (Vitamin C) 500 mg PO DAILY SUPPLEMENT 07/17/22 [History Last Taken Unknown] budesonide-formoterol HFA 160 mcg-4.5 mcg/actuation aerosol inhaler (Symbicort) 2 puff inhalation BID 07/17/22 [History Last Taken Unknown] levothyroxine 200 mcg capsule 100 mcg PO .QSun 07/17/22 [History Last Taken Unknown] nystatin-triamcinolone 100,000 unit/gram-0.1 % topical ointment 1 applic topical BID 07/17/22 [History Last Taken Unknown] atorvastatin 20 mg tablet 20 mg PO DAILY 07/22/22 [History Last Taken Unknown] carvedilol 25 mg tablet 25 mg PO BID #180 tabs 10/08/22 [Rx Last Taken Unknown] valsartan 160 mg tablet 160 mg PO DAILY #90 tabs 10/08/22 [Rx Last Taken Unknown] Allergy/AdvReac Type Severity Reaction Status Date / Time tizanidine [From [facility]] Allergy Severe Shortness Verified 10/07/22 11:11 of breath latex Allergy Rash Verified 10/07/22 11:11 lisinopril AdvReac Other Verified 10/07/22 11:11 Family History Aunt Breast cancer metastatic to bone Father Diabetes Hypertension Heart disease Myocardial infarction Mother Diabetes Hypertension Heart murmur Thyroid disorder Brother Diabetes Hypertension Grandmother Pneumothorax Surgical History History of carpal tunnel release (~2015) History of esophagogastroduodenoscopy (EGD) History of laparoscopic cholecystectomy (~11/15/19) Hx of bilateral cataract extraction (~2015) Hx of tubal ligation S/P partial thyroidectomy (~2018) S/P partial thyroidectomy (~2006) Social History Smoking Status: Never smoker second hand exposure: Yes alcohol intake: never substance use type: does not use caffeine: No Physical Exam Const alert, oriented x3 and no apparent distress General Appearance: cooperative and comfortable HEENT normocephalic, head/scalp atraumatic, hearing grossly normal bilaterally, external ears normal and external nose normal Eyes EOMs intact bilaterally General Eye: normal appearance of both eyes Resp normal respiratory effort, no retractions and no use of accessory muscles Effort and Inspection: able to speak in complete sentences Cardio Rate: regular rate Rhythm: regular rhythm Extremity Extremity Narrative: Significant nonpitting edema of the bilateral lower extremities. Palpable pedal pulses bilaterally, normal capillary refill. Skin Wounds: wounds noted Wound Narrative: Large, superficial, irregularly shaped wound to the lateral aspect of the right lower leg. Mild surrounding erythema, no foul odor, purulent drainage, fluctuance, or induration. Neuro oriented x3, CN's II-XII intact bilaterally, moves all extremities and no focal motor deficits Speech: speech normal Psych mental status grossly normal, cooperative, speech normal and activity/motor behavior normal Debridement Note Debridement Note Wound debrided: R lower leg Laterality: Right Type of Debridement: Excisional debridement Anesthesia Used: Cetacaine Depth: Down to and including healthy tissue and in the subcutaneous layer Percentage of wound debrided: 100 Instrument Used: 5mm curette Tissue Removed: slough, devitalized tissue Severity: Limited To Skin Breakdown Amount of bleeding with debridement: Mild Bleeding Controlled with: Pressure Patient tolerated procedure: Patient tolerated procedure well Post-Debridement Measurements and Additional Note: Post-Debridement Measurements/Treatment SHALINI - Nurse 1 - General Ulcer Assessment Start: 10/24/22 09:45 Freq: Status: Active Protocol: MARÍA Activity Type Activity Date Activity User E-sign Co-sign Detail Recorded Client Recorded Date Recorded By Document 10/24/22 09:46 [place] [id number] 10/24/22 09:56 LUCIANA 10/24/22 09:46 - Today's Visit Information Type of service Initial Visit Arrival Mode Ambulatory Patient Identification Verified (Name & Yes ) Patient Requires Transmission-Based No Precautions Pain Scale: 0-10 Numeric Is Patient Pain Free? Yes SHALINI - Nurse 1 - General Ulcer Measurement Start: 10/24/22 09:45 Freq: Status: Active Protocol: Activity Type Activity Date Activity User E-sign Co-sign Detail Recorded Client Recorded Date Recorded By Document 10/24/22 09:46 W[place] [id number] 10/24/22 09:56 W[place] 10/24/22 09:46 Wound Center Nurse 1 #1 R lateral Le -Current Size (cm) - Length 7 -Current Size (cm) - Width 5.5 -Current Size (cm) - Depth 0.1 -Total Square Cm 38.5 -Photo Taken Yes -Tunneling No -Undermining/Tunneling No -Circular Undermining No -Change in Wound Grade/Stage No -Exudate Amt Medium -Exudate Type Serosanguineous -Wound Margin Distinct, Outline Attached -Granulation Amt Large (67-100%) -Granulation Quality [place],Red -Slough/Fibrin Yes -Necrosis Amt Small (1-33%) -Necrotic Tissue Type Adherent Slough -Structure Exposed N/A -Texture (Emily-wound Skin Appearance) Assessed, Localized Edema -Moisture (Emily-wound Skin Appearance) Assessed, Weeping -Color (Emily-wound Skin Appearance) Assessed, Erythema -Temperature (Emily-wound Skin No Abnormality Appearance) (Pt Warm) -Tenderness on Palpation (Emily-wound No Skin Appearance) -Ulcer Cleansing Rinsed/ Irrigated with Saline -Foul Odor after Cleansing No -Anesthetic Used 4% Lidocaine Solution Right Calf (cm) 60 Right Ankle (cm) 33 Left Calf (cm) 60 Left Ankle (cm) 31 - Nurse 2 - General Ulcer CM Notes Start: 10/24/22 09:45 Freq: Status: Active Protocol: Activity Type Activity Date Activity User E-sign Co-sign Detail Recorded Client Recorded Date Recorded By Document 10/24/22 12:36 PL [id number] 10/24/22 12:37 PL 10/24/22 12:36 Wound Center Nurse 2 #1 R lateral Le -Time 10:01 -Correct Patient Yes -Correct Side, Site, Position Yes -Correct Procedure Yes -Procedure Performed Yes -Type of Procedure Debridement -Clinical Debridement Subcutaneous -Tissue Removed Subcutaneous -Post Debridement (cm) - Length 6.2 -Post Debridement (cm) - Width 5.9 -Post Debridement (cm) - Depth 0.1 -Total Square (Post) (cm) 36.58 -Area of Debridement (cm) - Length 6.2 -Area of Debridement (cm) - Width 5.9 -Total Square (Area) (cm) 36.58 -Tunneling No -Undermining/Tunneling No -Circular Undermining No -Wound/Ulcer Outcome Not Healed -Ulcer Cleansing Rinsed/ Irrigated with Saline -Foul Odor after Cleansing No -Bioengineered Tissue No -Bleeding Controlled with Pressure -Treatment Response Procedure Tolerated Well -Debridement - Subq, 1st 20sq cm Yes -Debridement, SubQ, ea addt'l 20sq cm 1 or part thereof Pain Scale: 0-10 Numeric Is Patient Pain Free? Yes Charges/Coding Visit Charges Office Visits / Consults: 66331 OV L3 New Procedures Integumentary [id number]: [id number] Keri subq tissue 20 sq cm/< Assessment/Plan Assessment/Plan (1) Ulcer of left lower leg: CODE(S): L97.929 - Non-pressure chronic ulcer of unspecified part of left lower leg with unspecified severity QUALIFIERS: Non-pressure ulcer stage: limited to breakdown of skin Qualified Code(s): L97.921 - Non-pressure chronic ulcer of unspecified part of left lower leg limited to breakdown of skin PLAN: Plan Patient's wound appears to be secondary to bilateral lower extremity edema. Appearance of her BLE edema is consistent with lymphedema in addition to general body habitus. Will apply fibracol to wound bed and then apply Unna boot for compression. No signs/symptoms concerning for infection so no cultures obtained. Palpable pedal pulse and normal capillary refill. Low suspicion for arterial compromise. May consider venous studies in the future if continued delayed healing with compression. Patient would benefit from referral to lymphedema clinic and likely from lymphedema pumps. Encouraged her to elevate legs whenever possible and as much as tolerated. When in reclined be sure to have feet up, especially while sleeping. Continue with good glycemic control. Increase protein in the diet. Return to clinic for nurse visit next thursday and to see me next Thursday.
== END 2022-10-24 23:59 | disposition home or self-care (01) ==
LOC: WC 09:29
PROVIDERS: PCP Family Medicine; Referring Provider Family Medicine; Visit Provider Physician Assistant
DX: E11.622 Type 2 diabetes mellitus with other skin ulcer (principal); L97.921 Non-pressure chronic ulcer of unspecified part of left lower leg limited to breakdown of skin; I27.82 Chronic pulmonary embolism; J44.9 Chronic obstructive pulmonary disease, unspecified; I11.0 Hypertensive heart disease with heart failure; I50.9 Heart failure, unspecified; E11.40 Type 2 diabetes mellitus with diabetic neuropathy, unspecified; Z79.4 Long term (current) use of insulin; E78.5 Hyperlipidemia, unspecified; I89.0 Lymphedema, not elsewhere classified; Z79.84 Long term (current) use of oral hypoglycemic drugs; D64.9 Anemia, unspecified; Z79.51 Long term (current) use of inhaled steroids
CPT/HCPCS: 11042; 11045; 29580; 99213; G0463

== ENCOUNTER → 2023-09-03 | Outpatient (CLI) | payer MEDICARE, MEDICAID, SELFPAY ==
--- NOTE | 2023-09-03 13:36 | US_ITS ---
We are attempting to reach an attending provider to discuss findings. An addendum with communication details will be sent when the communication is complete. STUDY: RENAL ULTRASOUND - COMPLETE REASON FOR EXAM: Female, 57 years old. UTI TECHNIQUE: Ultrasound evaluation of the kidneys was performed with real-time and static merchant-scale imaging. COMPARISON: None. FINDINGS: RIGHT KIDNEY: Normal location of the right kidney, which is normal in size. The right kidney measures 11.1 cm. There is a normal cortex of the right kidney. The renal cortex measures 1.5 cm. There is no right renal mass or cyst. 12 mm echogenic focus in the renal pelvis may represent a nonobstructing stone. There is mild hydronephrosis of the right kidney. Another month 9 mm echogenic focus with posterior shadowing in the lower pole right kidney may represent a nonobstructing stone. Another 4 mm echogenic focus lower pole right kidney may represent another nonobstructing stone. DISTAL RIGHT URETER: There is non-visualization of the distal right ureter. There is no demonstrated right ureterovesical junction calculus. There is a visualized right ureteral jet. LEFT KIDNEY: Normal location of the left kidney, which is normal in size. The left kidney measures 11.1 cm. There is a normal cortex of the left kidney. The renal cortex measures 1.4 cm. 10 mm echogenic focus within the cortex of the midsection of the left kidney may represent a mass or stone. There are no left renal calculi. There is mild hydronephrosis of the left kidney. DISTAL LEFT URETER: There is non-visualization of the distal left ureter. There is no demonstrated left ureterovesical junction calculus. There is a visualized left ureteral jet. BLADDER: The distended urinary bladder has a volume of 165 ml. The empty urinary bladder has a volume of 79 ml. There is a normal wall thickness of the distended urinary bladder. There is no demonstrated mass within the urinary bladder. There are no demonstrated bladder calculi. US/Kidney and Bladder IMPRESSION: 1. Possible 12 mm stone in the right renal pelvis with mild hydronephrosis. Correlation with stone protocol CT would be useful. 2. Possible 10 mm stone or echogenic mass within the midsection of the left kidney and again correlation with CT would be useful. 3. Significant postvoid residual. Electronically Signed: Dominguez Lorenzo MD at 12:17 EDT ,
== END | disposition home or self-care (01) ==
PROVIDERS: PCP Family Medicine; Referring Provider Urology; Visit Provider Urology
DX: N39.0 Urinary tract infection, site not specified (principal)
CPT/HCPCS: 76770

== ENCOUNTER → 2023-09-07 | Outpatient (CLI) | payer MEDICARE, MEDICAID, SELFPAY ==
--- NOTE | 2023-09-07 11:27 | RAD_ITS ---
STUDY: X-RAY - ABDOMEN/PELVIS REASON FOR EXAM: Female, 57 years old. bilat stones TECHNIQUE: Single AP view of the abdomen / pelvis. COMPARISON: October 11, 2019 FINDINGS: Left lower lobe calcific density again noted. There is an unremarkable bowel gas pattern. Tubal ligation clips noted in the pelvis. The visualized liver, spleen and kidneys are grossly normal in size and morphology. Normal soft tissue structures. Degenerative changes lumbar spine. RAD/Abdomen Single View IMPRESSION: No acute disease. No radiodense urolithiasis. Electronically Signed: Saurabh Pappas MD at 23:52 EDT ,
== END | disposition home or self-care (01) ==
LOC: MTRAD 11:24
PROVIDERS: PCP Family Medicine; Referring Provider Urology; Visit Provider Urology
DX: N20.0 Calculus of kidney (principal)
CPT/HCPCS: 74018

== ENCOUNTER 2023-09-24 10:17 | Day surgery (SDC) | payer MEDICARE, MEDICAID, SELFPAY ==
[2023-09-24 10:43] VITALS: BP 164/64; PULSE 61; RESP 16; TEMP 36.4; O2SAT 92; BMI 35.6
[2023-09-24] MEDS: Lactated Ringers 1,000 ML 15 ML IV (11:03)
[2023-09-24 11:14] LABS: Hematocrit 34.6 % (37-47); Hemoglobin 10.9 g/dL (12.0-15.0); Mean Corp Hgb Conc 31.5 g/dL (32-36); Mean Corpuscular Hgb 27.4 pg (27.0-32.0); Mean Corpuscular Volume 86.9 fL (81-99); Mean Platelet Vol. 8.9 fl (6.2-12.0); Platelet Count 270 K/mm3 (150-450); RBC Distribution Width CV 16.6 % (11.6-14.6); RBC Distribution Width SD 52.3 fl (35.1-43.9); Red Blood Count 3.98 M/mm3 (4.2-5.4); White Blood Count 5.9 K/mm3 (4.4-11.0)
[2023-09-24 11:22] LABS: Anion Gap 6 (5-15); BUN 19 mg/dL (7-18); Calcium,Total 9.4 mg/dL (8.5-10.1); Chloride 105 mmol/L (98-107); Creatinine, Serum 0.91 mg/dL (0.55-1.02); EST Glomerular Filtration Rate 68 mL/min (>60); Est Glom Filt Rate - Afr Amer 82 mL/min (>60); Estimated Creatinine Clearance 79.55 ml/min; Glucose 105 mg/dL (74-106); Potassium 4.3 mmol/L (3.5-5.1); Sodium Level 133 mmol/L (136-145)
[2023-09-24 11:26] LABS: Bedside Glucose 104 mg/dL (74-106)
[2023-09-24] MEDS: Cefazolin 2 GM in 0.9% Normal Saline (100mL Bag) 100 ML IV (11:45)
--- NOTE | 2023-09-24 11:53 | EX.PCM.DISCH ---
Discharge Instructions Diet Discharge Diet: No restrictions Activity Discharge Activity: Return to Normal Activity Dressing / Incision Call your doctor if you observe: Fever of 101 or Higher, Inability to urinate and Inability to have a bowel movement Follow Up Care Please Follow Up With: Eli Hernández MD When: in the office with [facility] in 2-3 weeks. Test Results: Test results from this visit will be discussed in further detail at your follow-up appointment, if applicable. Discharge Plan Admission Attending Provider: Eli Hernández Primary Care Provider: Riki Clark Instructions Print Language: [place] Discharge Orders/Prescriptions Prescriptions: New oxycodone-acetaminophen [Percocet] 5-325 mg tablet 1 tab PO Q8H PRN (Reason: pain) 3 Days Qty: 10 0RF cephalexin 500 mg capsule 500 mg PO Q12 3 Days Qty: 6 0RF phenazopyridine 100 mg tablet 100 mg PO TID Qty: 30 0RF Continued levothyroxine 200 mcg capsule 100 mcg PO ALTAMIRANO budesonide-formoterol [Symbicort] 160-4.5 mcg/actuation HFA aerosol inhaler 2 puff inhalation BID atorvastatin 20 mg tablet 20 mg PO DAILY ferrous sulfate [FeroSul] 325 mg (65 mg iron) Tablet 325 mg PO BID sumatriptan succinate 50 mg tablet 50 mg PO DAILY PRN (Reason: Migraine Headache) fluorometholone 0.1 % drops,suspension 1 drp EACH EYE DAILY PRN (Reason: EYE INFLAMMATION) levothyroxine 200 mcg tablet 200 mcg PO MOTUWETHFRSA Janumet 50-1,000 mg tablet 1 tab PO BIDCM sucralfate [Carafate] 1 gram tablet 1 g PO BID albuterol sulfate [Ventolin HFA] 90 mcg/actuation HFA aerosol inhaler 2 puff inhalation Q6H PRN (Reason: Shortness Of Breath) furosemide [Lasix] 40 mg tablet 40 mg PO DAILY 30 Days Qty: 30 0RF ascorbic acid (vitamin C) [Vitamin C] 500 mg capsule, extended release 500 mg PO DAILY carvedilol 25 mg tablet 12.5 mg PO BID Rx Instructions: must administer with a meal/food valsartan 160 mg tablet 160 mg PO DAILY Qty: 90 3RF Referrals / Follow Up: Riki Clark MD [Primary Care Provider] - Disposition Disposition (needs filled in before D/C Order can be placed): Home, Self Care
--- NOTE | 2023-09-24 11:57 | OP.PCM_ITS ---
Report of Operation Date of Procedure: 09/24/23 Pre-Operative Diagnosis: right renal stones Post-Operative Diagnosis: same Surgery/Procedure Performed:: cystoscopy with right retrograde pyelogram, right ureteral stent insertion, right extracorporeal shockwave lithotripsy Surgeon: Eli Hernández Type of Anesthesia: General Specimen's removed: none Description of Procedure: The patient is a 57-year-old female with right flank pain found to have right lower pole stones. She now presents for definitive surgical intervention. Informed consent was obtained. The patient was taken to the operating room and placed on the operating room table. Anesthesia monitored the head, neck, airway, IV access and vital signs throughout the case. Once anesthesia was appropriately administered, the patient was placed into dorsolithotomy position and was prepped and draped in usual sterile fashion. The cystoscope was inserted through the urethra under direct visualization into the urinary bladder. The bladder mucosa revealed no evidence of mass, erythema, foreign body or other abnormality. The right ureteral orifice was identified and intubated gently with a 0.035 Glidewire which advanced into the renal pelvis without difficulty. A 6 Maldivian 26 cm stent was positioned over the wire into the renal pelvis with curling in the bladder as well. At this time there was di fficulty in identifying the lower pole stones. A 5 [place]divian whistle-tip catheter was inserted alongside the stent and advanced proximally. Contrast was injected in retrograde fashion filling the lower pole and making the stones easily visible. At this time the patient's bladder was emptied and the cystoscope was removed. She was repositioned on the table into the supine position. 3000 shocks were applied to the stones which appeared to be fragmented at the conclusion of the case. The patient was then awakened and taken to the recovery room in good condition. There were no complications during this procedure. Grafts/Implants Used: 6 Maldivian by 26 cm JJ stent Complications none Admit VTE Documentation VTE Present on Admission: Yes VTE Mechan Device Prophylaxis: SCD's VTE Pharm Prophylaxis ordered?: No Reason prophylaxis not ordered:: Treatment Not Indicated
[2023-09-24 12:59] VITALS: BP 164/64; BP 178/91; PULSE 72; RESP 18; TEMP 36.4; O2SAT 98
[2023-09-24 13:05] VITALS: BP 164/64; BP 170/91; PULSE 69; RESP 16; O2SAT 94
[2023-09-24 13:10] VITALS: BP 164/64; BP 172/100; PULSE 74; RESP 16; O2SAT 93
[2023-09-24 13:14] VITALS: BP 148/47; BP 164/64; PULSE 72; RESP 16; TEMP 37.1; O2SAT 92
[2023-09-24 13:57] VITALS: BP 164/64
== END 2023-09-24 14:10 | disposition home or self-care (01) ==
LOC: SDC 10:20 → AC 10:21
PROVIDERS: PCP Family Medicine; Referring Provider Urology; Visit Provider Urology
PROC: (CPT 50590; principal; 2023-09-24 11:55)
DX: N20.0 Calculus of kidney (principal); I11.0 Hypertensive heart disease with heart failure; I50.9 Heart failure, unspecified; J44.9 Chronic obstructive pulmonary disease, unspecified; E11.9 Type 2 diabetes mellitus without complications; N39.0 Urinary tract infection, site not specified; N32.81 Overactive bladder; N39.41 Urge incontinence; N95.2 Postmenopausal atrophic vaginitis; N81.2 Incomplete uterovaginal prolapse; Z79.899 Other long term (current) drug therapy; Z79.51 Long term (current) use of inhaled steroids
CPT/HCPCS: 52356; 80048; 82962; 85027; C1758; J2405

== ENCOUNTER → 2023-10-01 | Outpatient (CLI) | payer MEDICARE, MEDICAID, SELFPAY ==
--- NOTE | 2023-10-01 16:23 | RAD_ITS ---
EXAM: XR ABDOMEN, 1 VIEW CLINICAL INDICATION: KUB- KIDNEY STONES TECHNIQUE: Frontal supine view of the abdomen/pelvis. COMPARISON: XR Abdomen dated 09/07/2023 FINDINGS: GASTROINTESTINAL TRACT: Normal bowel gas pattern. ORGANS: No organomegaly. BONES/JOINTS: No acute abnormality. TUBES, LINES AND DEVICES: Interval placement of a right double-J ureteral stent catheter. RAD/Abdomen Single View IMPRESSION: No acute findings. Electronically Signed: Luis Fernando Perez MD at 16:48 EDT ,
== END | disposition home or self-care (01) ==
PROVIDERS: PCP Family Medicine; Referring Provider Urology; Visit Provider Urology
DX: N20.0 Calculus of kidney (principal)
CPT/HCPCS: 74018

== ENCOUNTER 2023-10-15 11:52 | Day surgery (SDC) | payer MEDICARE, MEDICAID, SELFPAY ==
[2023-10-15] VITALS (8 sets, daily range): BP systolic 113–164; BP diastolic 57–105; PULSE 70–101; RESP 12–16; TEMP 36.3–36.8; O2SAT 93–100; BMI 33.3
--- NOTE | 2023-10-15 12:52 | PCM.PRE.AN2 ---
ASA Classification* ASA Classification ASA Classification: 3 Assessment & Plan Anesthesia* Anesthesia Assessment Anesthesia Assessment: Discussed sedation and/or anesthesia options, risks, benefits, and alternatives with patient/parents/legal guardian/POA. Questions invited. The patient/parents/legal guardian/POA seems to understand and agrees to proceed with anesthesia plan. Reviewed the physical assessment, medical history, allergy history and patient home medications list prior to surgery/procedure/anesthetic and documented any changes. Performed airway and anesthesia risk assessments. Anesthesia Type Anesthesia Type: MAC (see written pre anesthesia record for full assessment) Pre-Assessment Diagnosis/Proposed Procedure Planned Operative Procedure(s): CYSTO RIGHT URETEROSCOPY WITH STENT REMOVAL Anesthesia History Anesthesia History - instructional assistant: Anesthesia History - instructional assistant Hx Hospitalization Yes: 04/2023 BLOOD 10/14/23 09:02 TRANSFUSION Any Problems With Anesthesia No 10/14/23 09:02 Cholinesterase deficiency No 10/14/23 09:02 You/Your Family Experience No 10/14/23 09:02 fever (hyperthermia) with Relationship Recent Exposure to Contagious No 09/24/23 10:43 Disease Does patient have nerve No 10/14/23 09:02 stimulator Patient instructed to have device shut off --Does patient have Pacemaker or ICD? When Was Last Pacemaker Check QUESTION #4 FULL TEXT: You/Your Family Experience fever (hyperthermia) with Anesthesia Last Oral Intake Last Oral intake: Last Oral Intake NPO since Meds taken in AM with sips of water? Meds patient instructed to take am of surgery PONV PONV - instructional assistant: PONV - instructional assistant Female Yes 10/14/23 09:02 HX of Motion Sickness Yes 10/14/23 09:02 HX of N/V After Surgery No 10/14/23 09:02 Non-Smoker Yes 10/14/23 09:02 Duration of Surgery greater No 10/14/23 09:02 than 60 minutes Number of Risk Factors 3 10/14/23 09:02 PONV Score Moderate Risk 10/14/23 09:02 Height & Weight Height & Weight: Anesthesia: Height & Weight Height 5 ft 5 in 09/24/23 10:43 Respiratory Assessment Respiratory Assessment - instructional assistant: Respiratory Tract Infection Hx - instructional assistant Hx Respiratory Tract Infection No 10/14/23 09:02 STOP Sleep Apnea STOP Sleep Apnea - instructional assistant: STOP Sleep Apnea - instructional assistant Hx Hypertension Yes: CONTROLLED WITH MED 10/14/23 09:02 Hx Sleep Apnea No 10/14/23 09:02 CPAP No 10/14/23 09:02 BIPAP No 10/14/23 09:02 Do you snore loudly (louder No 10/14/23 09:02 than talking or can be heard Do you often feel tired/ No 10/14/23 09:02 fatigued/ sleepy during daytime? Has anyone observed you stop No 10/14/23 09:02 breathing during sleep? STOP Results Negative 10/14/23 09:02 QUESTION #5 FULL TEXT : Do you snore loudly (louder than talking or can be heard through closed doors)? 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 Specify any problems Hx of Preganancy in last 3 No 10/14/23 09:02 Months Nurse Filling Out Transfusion DSCHRIBER 10/14/23 09:02 & Questions: Date: 10/14/23 10/14/23 09:02 Time: 09:03 10/14/23 09:02 Patient unable to answer at this time (ie. confused, unrespo /Reproduction History /Reproductive History - instructional assistant: /Reproductive Hx- instructional assistant Hx Now Gestational Age (in weeks): EDC: Hx Hx Para Hx Section SAB No 10/14/23 09:02 Active Medications Active Medications: Current Medications Generic Name Dose Route Start Last Admin Trade Name Freq PRN Reason Stop Dose Admin Cefazolin Sodium 2 gm/ Sodium 110 mls @ 150 mls/hr 10/15/23 14:05 Chloride IV 10/15/23 14:48 PREOP ONE Lactated Ringer's 1,000 mls @ 15 mls/hr 10/15/23 12:30 IV .Q48H [facility] Anesthesia Focused Assessment* Airway Assessment Mouth opens: >3 cm Mallampati Score: II Focused Labs Anesthesia Preop lab: CBC WBC 5.9 K/mm3 (4.4-11.0) 09/24/23 10:50 RBC 3.98 M/mm3 (4.2-5.4) L 09/24/23 10:50 Hgb 10.9 g/dL (12.0-15.0) L 09/24/23 10:50 Hct 34.6 % (37-47) L 09/24/23 10:50 Plt Count 270 K/mm3 (150-450) 09/24/23 10:50 CHEMISTRY Potassium 4.3 mmol/L (3.5-5.1) 09/24/23 10:50 Sodium 133 mmol/L (136-145) L 09/24/23 10:50 Magnesium 1.7 mg/dL (1.8-2.4) L 03/31/14 10:00 BUN 19 mg/dL (7-18) H 09/24/23 10:50 Creatinine 0.91 mg/dL (0.55-1.02) 09/24/23 10:50 Glucose 105 mg/dL (74-106) 09/24/23 10:50 POC Glucose 104 mg/dL (74-106) 09/24/23 10:59 TSH 5.21 uIU/mL (0.358-3.74) H 05/15/22 06:10 COAG PT 15.5 SECONDS (11.7-14.9) H 05/14/22 11:38 Review of Systems (Anesthesia) ROS Narrative System reviewed and no additional complaints, except as documented. [facility] Medical History Wears glasses Cancer Thyroid disease Pulmonary embolism Migraine headache History of IBS Heartburn History of edema History of stress test History of echocardiogram Cardiology follow-up encounter History of ulceration Essential hypertension COPD (chronic obstructive pulmonary disease) GI bleed Morbid obesity with BMI of 40.0-44.9, adult Abnormal echocardiogram CHF (congestive heart failure) Bilateral lower extremity edema Cellulitis of left leg Symptomatic anemia Anemia COVID-19 virus infection (~01/2022) Thyroid cancer Postoperative primary hypothyroidism Depression Arthritis Low iron Dietary restriction Non-smoker Shortness of breath on exertion History of pain when walking Nausea Abdominal pain Epigastric pain Cholelithiasis Nontoxic multinodular goiter Hypothyroid Type 2 diabetes mellitus Hyperlipidemia Asthma Migraines Home Medications ?Medication ?Instructions ?Recorded ?Last Taken ?Type ferrous sulfate 325 mg (65 mg 325 mg PO BID supplement 05/30/21 05/14/22 History iron) tablet (FeroSul) albuterol sulfate 90 mcg/actuation 2 puff inhalation Q6H PRN 05/14/22 05/14/22 History aerosol inhaler (Ventolin HFA) Shortness Of Breath fluorometholone 0.1 % eye 1 drp EACH EYE DAILY PRN EYE 05/14/22 05/13/22 History drops,suspension INFLAMMATION levothyroxine 200 mcg tablet 200 mcg PO MOTUWETHFRSA THYROID 05/14/22 05/14/22 History sitagliptin phosphate 50 1 tab PO BIDCM BLOOD SUGARS 05/14/22 05/14/22 History mg-metformin 1,000 mg tablet (Janumet) sucralfate 1 gram tablet (Carafate) 1 g PO BID GERD 05/14/22 05/14/22 History sumatriptan succinate 50 mg tablet 50 mg PO DAILY PRN Migraine 05/14/22 05/13/22 History Headache furosemide 40 mg tablet (Lasix) 40 mg PO DAILY 30 days #30 tabs 05/16/22 Unknown Rx ascorbic acid (vitamin C) 500 mg 500 mg PO DAILY SUPPLEMENT 07/17/22 Unknown History capsule,extended release (Vitamin C) budesonide-formoterol HFA 160 2 puff inhalation BID 07/17/22 Unknown History mcg-4.5 mcg/actuation aerosol inhaler (Symbicort) levothyroxine 200 mcg capsule 100 mcg PO ALTAMIRANO 07/17/22 Unknown History atorvastatin 20 mg tablet 20 mg PO DAILY 07/22/22 Unknown History valsartan 160 mg tablet 160 mg PO DAILY #90 tabs 10/08/22 Unknown Rx carvedilol 25 mg tablet 12.5 mg PO BID 09/16/23 Unknown History cephalexin 500 mg capsule 500 mg PO Q12 post-operative 3 09/24/23 Unknown Rx days #6 CAPSULES Allergy/AdvReac Type Severity Reaction Status Date / Time tizanidine (From Zanaflex) Allergy Severe Shortness Verified 10/14/23 08:58 of breath latex Allergy Rash Verified 10/14/23 08:58 lisinopril AdvReac Other Verified 10/14/23 08:58 Family History Aunt Breast cancer metastatic to bone Father Diabetes Hypertension Heart disease Myocardial infarction Mother Diabetes Hypertension Heart murmur Thyroid disorder Brother Diabetes Hypertension Grandmother Pneumothorax Surgical History Hx of cystoscopy History of esophagogastroduodenoscopy (EGD) History of carpal tunnel release (~2015) S/P partial thyroidectomy (~2006) Hx of tubal ligation Hx of bilateral cataract extraction (~2015) History of esophagogastroduodenoscopy (EGD) History of laparoscopic cholecystectomy (~11/15/19) S/P partial thyroidectomy (~2018) Social History Smoking Status: Never smoker second hand exposure: Yes alcohol intake: never substance use type: does not use caffeine: No
[2023-10-15] MEDS: Lactated Ringers 1,000 ML 15 ML IV (13:03)
[2023-10-15 13:04] LABS: Bedside Glucose 90 mg/dL (74-106)
[2023-10-15] MEDS: Cefazolin 2 GM in 0.9% Normal Saline (100mL Bag) 100 ML IV (14:05)
--- NOTE | 2023-10-15 14:48 | DCINST_ITS ---
Discharge Instructions Diet Discharge Diet: No restrictions Activity Discharge Activity: Return to Normal Activity Dressing / Incision Call your doctor if you observe: Fever of 101 or Higher, Inability to urinate and Inability to have a bowel movement Follow Up Care Please Follow Up With: Eli Hernández MD When: The office will call to make arrangements for follow up in 3-4 weeks. Test Results: Test results from this visit will be discussed in further detail at your follow- up appointment, if applicable. Discharge Plan Admission Attending Provider: Eli Hernández Primary Care Provider: Riki Clark Instructions Print Language: Spanish Discharge Orders/Prescriptions Prescriptions: New cephalexin 500 mg capsule 500 mg PO Q12 3 Days Qty: 6 0RF Continued levothyroxine 200 mcg capsule 100 mcg PO ALTAMIRANO budesonide-formoterol [Symbicort] 160-4.5 mcg/actuation HFA aerosol inhaler 2 puff inhalation BID atorvastatin 20 mg tablet 20 mg PO DAILY ferrous sulfate [FeroSul] 325 mg (65 mg iron) Tablet 325 mg PO BID sumatriptan succinate 50 mg tablet 50 mg PO DAILY PRN (Reason: Migraine Headache) fluorometholone 0.1 % drops,suspension 1 drp EACH EYE DAILY PRN (Reason: EYE INFLAMMATION) levothyroxine 200 mcg tablet 200 mcg PO MOTUWETHFRSA Janumet 50-1,000 mg tablet 1 tab PO BIDCM sucralfate [Carafate] 1 gram tablet 1 g PO BID albuterol sulfate [Ventolin HFA] 90 mcg/actuation HFA aerosol inhaler 2 puff inhalation Q6H PRN (Reason: Shortness Of Breath) furosemide [Lasix] 40 mg tablet 40 mg PO DAILY 30 Days Qty: 30 0RF ascorbic acid (vitamin C) [Vitamin C] 500 mg capsule, extended release 500 mg PO DAILY carvedilol 25 mg tablet 12.5 mg PO BID Rx Instructions: must administer with a meal/food cephalexin 500 mg capsule 500 mg PO Q12 3 Days Qty: 6 0RF valsartan 160 mg tablet 160 mg PO DAILY Qty: 90 3RF Referrals / Follow Up: Riki Clark MD [Primary Care Provider] - Disposition Disposition (needs filled in before D/C Order can be placed): Home, Self Care
--- NOTE | 2023-10-15 14:48 | PCM.POST.ANE ---
Anesthesia: Postop Eval I Current Vital Signs Temperature: 97.3 F Pulse Rate: 77 Blood Pressure: 113/86 Respiratory Rate: 16 Pulse Ox: 94 Oxygen Delivery Method: Room Air Assessment Airway patent: Yes Spontaneous unlabored respirations: Yes Mental status: Awake and Calm nausea: No Vomiting: No Anesthesia Complication: No Fluid Hydration Crystalloid volume administer (ml): 300 Total IV fluid infused: 300 Progress Note Anesthesia document: Postop Eval 1 completed: Yes
--- NOTE | 2023-10-15 14:50 | OP.PCM_ITS ---
Report of Operation Date of Procedure: 10/15/23 Pre-Operative Diagnosis: Migrated ureteral stent Post-Operative Diagnosis: Same Surgery/Procedure Performed:: Cystoscopy, right ureteroscopy, removal of retained ureteral stent using a stone basket Surgeon: Eli Hernández Type of Anesthesia: General Specimen's removed: 6 Romanian 26 cm JJ stent Description of Procedure: The patient is a 57-year-old female who underwent management for a right renal stone who now presents for removal of a migrated right ureteral stent. Informed consent was obtained. She was taken to the operating room and placed on the operating room table. Anesthesia monitored the head, neck, airway, IV access and vital signs throughout the case. Once anesthesia was appropriately administered, she was placed into dorsolithotomy position and was prepped and draped in usual sterile fashion. The cystoscope was inserted through the urethra under direct visualization and the bladder was emptied. Due to her prolapse, the vagina was packed with gauze. The right ureteral orifice was then identified and intubated with a 0.035 Glidewire. The semirigid ureteroscope was inserted alongside the guidewire and the stent was identified and a distal ureteral position. Using a stone basket, the stent was grasped and removed without difficulty. The patient's bladder was then emptied and the gauze was removed from her vagina. She was awakened and taken to the recovery room in good condition. There were no complications during this procedure. Grafts/Implants Used: None Complications None Admit VTE Documentation VTE Present on Admission: Yes VTE Mechan Device Prophylaxis: SCD's VTE Pharm Prophylaxis ordered?: No Reason prophylaxis not ordered:: Treatment Not Indicated
--- NOTE | 2023-10-15 15:17 | POSTOPAN2_ITS ---
Anesthesia Postop Eval I Sum Postop Eval Completion status Anesthesia document: Postop Eval 1 completed: Yes Anesthesia Postop Eval I Summary Anesthesia Postop Eval I Summary: Anesthesia Postop Eval I: Assessment Summary Airway patent Yes 10/15/23 14:49 DIRECTOR OF CLINICAL EDUCATION.MDOT Spontaneous unlabored Yes 10/15/23 14:49 DIRECTOR OF CLINICAL EDUCATION.MDOT respirations Mental status Awake,Calm 10/15/23 14:49 DIRECTOR OF CLINICAL EDUCATION.MDOT nausea No 10/15/23 14:49 DIRECTOR OF CLINICAL EDUCATION.MDOT Vomiting No 10/15/23 14:49 DIRECTOR OF CLINICAL EDUCATION.MDOT Anesthesia Postop Eval I: Fluid Summary Crystalloid volume administer 300 10/15/23 14:49 DIRECTOR OF CLINICAL EDUCATION.MDOT (ml) Colloids volume administered ( ml) Blood Product volume administered (ml) Total IV fluid infused 300 10/15/23 14:49 DIRECTOR OF CLINICAL EDUCATION.MDOT Anesthesia Postop Eval I: Summary Notes Anesthesia Complication No 10/15/23 14:49 DIRECTOR OF CLINICAL EDUCATION.MDOT Anesthesia Complication Comment: Post-operative progress note Anesthesia: Postop Eval II Evaluation Mental status: Awake Pain Level: 0 nausea: No Vomiting: No Complications Anesthesia Complication: No
--- NOTE | 2023-10-15 15:17 | PCM.POSTANE2 ---
Anesthesia Postop Eval I Sum Postop Eval Completion status Anesthesia document: Postop Eval 1 completed: Yes Anesthesia Postop Eval I Summary Anesthesia Postop Eval I Summary: Anesthesia Postop Eval I: Assessment Summary Airway patent Yes 10/15/23 14:49 AUTO AIR CONDITIONING APPRENTICE.MDOT Spontaneous unlabored Yes 10/15/23 14:49 AUTO AIR CONDITIONING APPRENTICE.MDOT respirations Mental status Awake,Calm 10/15/23 14:49 AUTO AIR CONDITIONING APPRENTICE.MDOT nausea No 10/15/23 14:49 AUTO AIR CONDITIONING APPRENTICE.MDOT Vomiting No 10/15/23 14:49 AUTO AIR CONDITIONING APPRENTICE.MDOT Anesthesia Postop Eval I: Fluid Summary Crystalloid volume administer 300 10/15/23 14:49 AUTO AIR CONDITIONING APPRENTICE.MDOT (ml) Colloids volume administered ( ml) Blood Product volume administered (ml) Total IV fluid infused 300 10/15/23 14:49 AUTO AIR CONDITIONING APPRENTICE.MDOT Anesthesia Postop Eval I: Summary Notes Anesthesia Complication No 10/15/23 14:49 AUTO AIR CONDITIONING APPRENTICE.MDOT Anesthesia Complication Comment: Post-operative progress note Anesthesia: Postop Eval II Evaluation Mental status: Awake Pain Level: 0 nausea: No Vomiting: No Complications Anesthesia Complication: No
--- NOTE | 2023-10-15 15:41 | PCM.POST.ANE ---
Anesthesia: Postop Eval I Current Vital Signs Temperature: 97.4 F Pulse Rate: 101 Blood Pressure: 164/105 Respiratory Rate: 12 Pulse Ox: 97 Oxygen Delivery Method: Room Air Assessment Airway patent: Yes Spontaneous unlabored respirations: Yes Mental status: Asleep nausea: No Vomiting: No Anesthesia Complication: No Fluid Hydration Crystalloid volume administer (ml): 1 Total IV fluid infused: 1 Progress Note Anesthesia document: Postop Eval 1 completed: Yes
== END 2023-10-15 15:52 | disposition home or self-care (01) ==
LOC: SDC 11:56 → AC 12:04
PROVIDERS: PCP Family Medicine; Referring Provider Urology; Visit Provider Urology
PROC: 0TJ98ZZ Inspection of Ureter, Via Natural or Artificial Opening Endoscopic (ICD-10-PCS; CPT 52352; principal; 2023-10-15 13:55)
DX: T83.122A Displacement of indwelling ureteral stent, initial encounter (principal); I11.0 Hypertensive heart disease with heart failure; I50.9 Heart failure, unspecified; J44.9 Chronic obstructive pulmonary disease, unspecified; E11.9 Type 2 diabetes mellitus without complications; N20.0 Calculus of kidney; N39.0 Urinary tract infection, site not specified; N81.2 Incomplete uterovaginal prolapse; N95.2 Postmenopausal atrophic vaginitis; E03.9 Hypothyroidism, unspecified; Z79.51 Long term (current) use of inhaled steroids; Z79.899 Other long term (current) drug therapy; Z86.711 Personal history of pulmonary embolism; X58.XXXA Exposure to other specified factors, initial encounter
CPT/HCPCS: 52310; 00910; 76000; 82962; J2405

== ENCOUNTER → 2023-11-18 | Outpatient (CLI) | payer MEDICARE, SELFPAY ==
--- NOTE | 2023-11-18 13:57 | CT_ITS ---
INDICATION: ABD PAIN UTI HX STONES EXAMINATION: CT ABDOMEN AND PELVIS WITHOUT CONTRAST - CT Abdomen And Pelvis W/O Contrast Injection TECHNIQUE: Helically acquired images were obtained of the abdomen and pelvis without oral or IV contrast. A radiation dose optimization technique was used for this scan. IV Contrast dosage and agent: None. Oral contrast: None. RADIATION DOSAGE (If Supplied By Facility): CTDIvol = ( 16.59 ) mGy, DLP = ( 820.64 ) mGycm COMPARISON: Prior study dated: 09/30/2019 FINDINGS: LOWER CHEST: Mosaic attenuation at the lung bases favors a trapping. Coronary artery calcifications are seen. No cardiomegaly or pericardial effusion. LIVER: Enlarged liver measures 22.8 cm in CC dimension. The liver is normal in shape and attenuation. No focal mass. GALLBLADDER AND BILIARY TREE: Gallbladder not seen. No intra- or extrahepatic biliary ductal dilation. PANCREAS: No focal cystic or solid mass. SPLEEN: Normal size without focal cystic or solid mass. ADRENAL GLANDS: No nodules. KIDNEYS AND URETERS: Normal renal size and position. No hydronephrosis. 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 Right lower pole 0.2 cm nonobstructing renal calculus. PERITONEUM: No ascites or free air. No other fluid collection. BOWEL: The stomach is unremarkable. Normal caliber of the small bowel. No obstruction. Scattered colonic diverticulosis without diverticulitis. No colonic wall thickening or inflammation. No evidence of acute appendicitis. LYMPH NODES: No enlarged mesenteric or retroperitoneal lymph nodes. VESSELS: Aorta is non-dilated. Mild atherosclerotic calcifications. URINARY BLADDER: Unremarkable. REPRODUCTIVE ORGANS: No pelvic masses. Multiple clips in the pelvis noted. ABDOMINAL WALL: No discrete abdominal or pelvic wall hernia. BONES: No acute or suspicious osseous abnormality. Degenerative changes are seen throughout the spine. Mild degenerative change at the hips. CT/Abdomen/Pelvis without Cont IMPRESSION: No acute finding in the abdomen or pelvis. No hydronephrosis. Nonobstructing right lower pole renal calculus. Hepatomegaly, similar to prior. Electronically Signed: Jude Gardiner MD at 15:57 EDT ,
== END | disposition home or self-care (01) ==
LOC: CT 13:56
PROVIDERS: PCP Family Medicine; Referring Provider Urology; Visit Provider Urology
DX: R10.9 Unspecified abdominal pain (principal); N39.0 Urinary tract infection, site not specified; Z87.442 Personal history of urinary calculi
CPT/HCPCS: 74176

== ENCOUNTER 2024-04-22 11:38 | Emergency (ER) | payer MEDICARE, SELFPAY ==
[2024-04-22 11:39] VITALS: BP 153/71; PULSE 72; RESP 16; TEMP 36.6; O2SAT 100; BMI 35.7
[2024-04-22 11:41] VITALS: BP 127/57; PULSE 74; RESP 18; TEMP 36.6; O2SAT 95
--- NOTE | 2024-04-22 12:04 | EX.ED.DYSGE1 ---
HPI <NAHOMI Stanley - Last Filed: 04/22/24 12:47> History of Present Illness Chief Complaint: Cellulitis Narrative Narrative: Patient is a 58-year-old female with history of CHF, diabetes, hypertension hyperlipidemia who presents to the emergency department with complaints of infection, lump to the right arm. Patient states she is noticed it about 2 weeks. Patient states that the getting more painful, she is feeling more ill and is here for evaluation. Patient states she has subjective fever and chills. Denies any other injury. PFSH <NAHOMI Stanley - Last Filed: 04/22/24 12:47> [facility] Medical History Wears glasses Cancer Thyroid disease Pulmonary embolism Migraine headache History of IBS Heartburn History of edema History of stress test History of echocardiogram Cardiology follow-up encounter History of ulceration Essential hypertension COPD (chronic obstructive pulmonary disease) GI bleed Morbid obesity with BMI of 40.0-44.9, adult Abnormal echocardiogram CHF (congestive heart failure) Bilateral lower extremity edema Cellulitis of left leg Symptomatic anemia Anemia COVID-19 virus infection (~01/2022) Thyroid cancer Postoperative primary hypothyroidism Depression Arthritis Low iron Dietary restriction Non-smoker Shortness of breath on exertion History of pain when walking Nausea Abdominal pain Epigastric pain Cholelithiasis Nontoxic multinodular goiter Hypothyroid Type 2 diabetes mellitus Hyperlipidemia Asthma Migraines Home Medications ?Medication ?Instructions ?Recorded ?Last Taken ?Type ferrous sulfate 325 mg (65 mg 325 mg PO BID supplement 05/30/21 05/14/22 History iron) tablet (FeroSul) albuterol sulfate 90 mcg/actuation 2 puff inhalation Q6H PRN 05/14/22 05/14/22 History aerosol inhaler (Ventolin HFA) Shortness Of Breath fluorometholone 0.1 % eye 1 drp EACH EYE DAILY PRN EYE 05/14/22 05/13/22 History drops,suspension INFLAMMATION levothyroxine 200 mcg tablet 200 mcg PO MOTUWETHFRSA THYROID 05/14/22 05/14/22 History sitagliptin phosphate 50 1 tab PO BIDCM BLOOD SUGARS 05/14/22 05/14/22 History mg-metformin 1,000 mg tablet (Janumet) sucralfate 1 gram tablet (Carafate) 1 g PO BID GERD 05/14/22 05/14/22 History sumatriptan succinate 50 mg tablet 50 mg PO DAILY PRN Migraine 05/14/22 05/13/22 History Headache furosemide 40 mg tablet (Lasix) 40 mg PO DAILY 30 days #30 tabs 05/16/22 Unknown Rx ascorbic acid (vitamin C) 500 mg 500 mg PO DAILY SUPPLEMENT 07/17/22 Unknown History capsule,extended release (Vitamin C) budesonide-formoterol HFA 160 2 puff inhalation BID 07/17/22 Unknown History mcg-4.5 mcg/actuation aerosol inhaler (Symbicort) levothyroxine 200 mcg capsule 100 mcg PO ALTAMIRANO 07/17/22 Unknown History atorvastatin 20 mg tablet 20 mg PO DAILY 07/22/22 Unknown History cephalexin 500 mg capsule 500 mg PO Q12 post-operative 3 09/24/23 Unknown Rx days #6 CAPSULES cephalexin 500 mg capsule 500 mg PO Q12 post-operative 3 10/15/23 Unknown Rx days #6 CAPSULES carvedilol 25 mg tablet 12.5 mg (1/2 x 25 mg) PO BID #180 11/04/23 Unknown Rx tabs valsartan 160 mg tablet 160 mg PO DAILY #90 tabs 11/04/23 Unknown Rx cephalexin 500 mg capsule 500 mg PO Q6 10 days #40 CAPSULES 04/22/24 Unknown Rx sulfamethoxazole 800 1 tab PO BID #20 tabs 04/22/24 Unknown Rx mg-trimethoprim 160 mg tablet (Bactrim DS) Allergy/AdvReac Type Severity Reaction Status Date / Time tizanidine (From Zanaflex) Allergy Severe Shortness Verified 04/22/24 11:42 of breath latex Allergy Rash Verified 04/22/24 11:42 lisinopril AdvReac Other Verified 04/22/24 11:42 Family History Aunt Breast cancer metastatic to bone Father Diabetes Hypertension Heart disease Myocardial infarction Mother Diabetes Hypertension Heart murmur Thyroid disorder Brother Diabetes Hypertension Grandmother Pneumothorax Surgical History Hx of cystoscopy History of esophagogastroduodenoscopy (EGD) History of carpal tunnel release (~2015) S/P partial thyroidectomy (~2006) Hx of tubal ligation Hx of bilateral cataract extraction (~2015) History of esophagogastroduodenoscopy (EGD) History of laparoscopic cholecystectomy (~11/15/19) S/P partial thyroidectomy (~2018) Social History Smoking Status: Never smoker second hand exposure: Yes alcohol intake: never substance use type: does not use caffeine: No ROS <NAHOMI Stanley - Last Filed: 04/22/24 12:47> ROS ED ROS Narrative Constitutional: Negative for fever, chills, weight loss, weakness Eyes: Negative for vision loss, vision change, double vision ENT: Negative for any sore throat, ear pain, congestion Cardiovascular: Negative for any chest pain, tightness, palpitations Respiratory: Negative for any cough, sputum production, hemoptysis, dyspnea, dyspnea on exertion, orthopnea Gastrointestinal: Negative for any abdominal pain, nausea, vomiting, diarrhea, constipation, blood in stool, blood in vomit : Negative for any urinary frequency, dysuria, retention, blood in urine Muscle skeletal: Negative for any neck pain, back pain Neurological: Negative for any headache, syncope, dizziness Skin: Negative for any rashes, itching, abrasions, lacerations. Positive for redness, abscess to the right arm Psychiatric: Negative for any depression, anxiety, stress, suicidal ideation, homicidal ideation Hematologic: Negative for any excessive bruising, easy bleeding EXAM <NAHOMI Stanley - Last Filed: 04/22/24 12:47> Physical Exam Narrative Exam Narrative: Vital signs reviewed. Extremities: No peripheral edema, no signs of gross trauma or deformity. Active full range of motion of all extremities. Patient has a large abscess to the right arm just distal to the axilla. There is some surrounding cellulitis, induration. +2 radial pulse. Neuro: Cranial nerves II through XII intact, no focal neurological deficits. Skin: Clean dry and intact with no rash, purpura, petechiae, vesicles or pustules. Backs/flank: No CVA tenderness, no midline spinal tenderness, no deformity. Psych: Normal mood and affect. No SI, HI or acute psychosis. Const Vital Signs: 04/22/24 11:39 04/22/24 11:41 04/22/24 12:48 Temperature 97.9 F 97.9 F 97.9 F Temperature Source Oral Oral Pulse Rate 72 74 74 Respiratory Rate 16 18 18 Blood Pressure 153/71 H 127/57 H 127/57 H Blood Pressure Mean 98 80 80 Pulse Ox 100 95 95 Oxygen Delivery Method Room Air Room Air Positive well nourished and well developed General Appearance ED: well developed <Dr. Baljeet Alvarez DO - Last Filed: 04/22/24 13:07> Physical Exam Const Vital Signs: 04/22/24 11:39 04/22/24 11:41 04/22/24 12:48 Temperature 97.9 F 97.9 F 97.9 F Temperature Source Oral Oral Pulse Rate 72 74 74 Respiratory Rate 16 18 18 Blood Pressure 153/71 H 127/57 H 127/57 H Blood Pressure Mean 98 80 80 Pulse Ox 100 95 95 Oxygen Delivery Method Room Air Room Air MDM <NAHOMI Stanley - Last Filed: 04/22/24 12:47> [facility] Treatment and Re-Evaluation :: Differential diagnosis includes however is not limited to: Abscess, cellulitis, MRSA, sepsis Patient appears generally well, vital signs are stable, patient is nontoxic-appearing. Presenting to the emergency department with complaints of cellulitis, abscess to the right upper arm. The patient does have an abscess that will require I&D. Sterile gloves, sterile drapes were used. I was able to incise the area with 10 mL of lidocaine with epinephrine. I was able to make a 1 cm vertical incision, copious amounts of yellow discharge was expelled. I was able to use forceps, broke up loculations with more discharge. I was able to pack the dressing with 1/4 packing. Patient tolerated well. At this time, patient has strict return precautions. Patient replaced on Keflex 4 times a day, Bactrim twice a day. If the patient does not improve, the redness gets worse, she is getting more ill, she needs to return to the emergency department. She is happy with the plan of care, vital signs are stable at this time. Patient will follow-up with her PCP. <Dr. Baljeet Alvarez DO - Last Filed: 04/22/24 13:07> [facility] Treatment and Re-Evaluation :: Differential diagnosis includes however is not limited to: Abscess, cellulitis, MRSA, sepsis Patient appears generally well, vital signs are stable, patient is nontoxic-appearing. Presenting to the emergency department with complaints of cellulitis, abscess to the right upper arm. The patient does have an abscess that will require I&D. Sterile gloves, sterile drapes were used. I was able to incise the area with 10 mL of lidocaine with epinephrine. I was able to make a 1 cm vertical incision, copious amounts of yellow discharge was expelled. I was able to use forceps, broke up loculations with more discharge. I was able to pack the dressing with 1/4 packing. Patient tolerated well. At this time, patient has strict return precautions. Patient replaced on Keflex 4 times a day, Bactrim twice a day. If the patient does not improve, the redness gets worse, she is getting more ill, she needs to return to the emergency department. She is happy with the plan of care, vital signs are stable at this time. Patient will follow-up with her PCP. I have personally performed a face to face assessment of the patient and have reviewed the KAILEY Note. I performed a substantive portion of the visit including all aspects of the following. My breaux findings include: History is 58-year-old diabetic with obesity presenting with abscess and cellulitis of the right upper arm. No reported fevers. Not currently on antibiotics. Exam is There is an area of fluctuance with surrounding induration and cellulitic changes. Patient otherwise looks well Medical Decison Making patient underwent incision and drainage. Patient was placed on Keflex and Bactrim. Return instructions understood. Discharge Plan Triage Chief Complaint: Cellulitis ED Midlevel Provider: Escobar Osborne ED Provider: Baljeet Alvarez Dx/Rx/DC Orders Clinical Impression: Cellulitis, Abscess Instructions: Abscess Drainage, Cellulitis Dc Prescriptions: New cephalexin 500 mg capsule 500 mg PO Q6 10 Days Qty: 40 0RF sulfamethoxazole-trimethoprim [Bactrim DS] 800-160 mg tablet 1 tab PO BID Qty: 20 0RF No Action levothyroxine 200 mcg capsule 100 mcg PO ALTAMIRANO budesonide-formoterol [Symbicort] 160-4.5 mcg/actuation HFA aerosol inhaler 2 puff inhalation BID atorvastatin 20 mg tablet 20 mg PO DAILY ferrous sulfate [FeroSul] 325 mg (65 mg iron) Tablet 325 mg PO BID sumatriptan succinate 50 mg tablet 50 mg PO DAILY PRN (Reason: Migraine Headache) fluorometholone 0.1 % drops,suspension 1 drp EACH EYE DAILY PRN (Reason: EYE INFLAMMATION) levothyroxine 200 mcg tablet 200 mcg PO MOTUWETHFRSA Janumet 50-1,000 mg tablet 1 tab PO BIDCM sucralfate [Carafate] 1 gram tablet 1 g PO BID albuterol sulfate [Ventolin HFA] 90 mcg/actuation HFA aerosol inhaler 2 puff inhalation Q6H PRN (Reason: Shortness Of Breath) furosemide [Lasix] 40 mg tablet 40 mg PO DAILY 30 Days Qty: 30 0RF ascorbic acid (vitamin C) [Vitamin C] 500 mg capsule, extended release 500 mg PO DAILY cephalexin 500 mg capsule 500 mg PO Q12 3 Days Qty: 6 0RF cephalexin 500 mg capsule 500 mg PO Q12 3 Days Qty: 6 0RF carvedilol 25 mg tablet 12.5 mg PO BID Qty: 180 3RF Rx Instructions: must administer with a meal/food valsartan 160 mg tablet 160 mg PO DAILY Qty: 90 3RF Primary Care Provider: Riki Clark Referrals: Riki Clark MD [Primary Care Provider] - Activity Restrictions/Additional Instructions: The packing in your arm, this can stay in for 2 days, if it falls out early do not worry about it. Use warm compresses. You must take the Keflex 4 times a day for 10 days, as well as the Bactrim twice a day for 10 days. If you do not improve in the next 48 hours, the redness gets worse, you need to return to the emerged department. Print Language: Maltese Disposition Disposition: Home, Self Care Discharge Date/Time: 04/22/24 12:59
[2024-04-22] MEDS: Lidocaine 1% /Epi 1:100 (20ml) 20 ML Vial 3 ML INFILT (12:13)
[2024-04-22] MEDS: Cephalexin 250 MG Capsule 500 MG PO (12:44)
[2024-04-22] MEDS: Smz/Tmp Ds Tablet 1 TABLET PO (12:44)
[2024-04-22 12:48] VITALS: BP 127/57; PULSE 74; RESP 18; TEMP 36.6; O2SAT 95
== END 2024-04-22 12:59 | disposition home or self-care (01) ==
PROVIDERS: Emergency Provider Emergency Medicine; PCP Family Medicine; Visit Provider Emergency Medicine
DX: L03.113 Cellulitis of right upper limb (principal); I11.0 Hypertensive heart disease with heart failure; I50.9 Heart failure, unspecified; J44.9 Chronic obstructive pulmonary disease, unspecified; E11.9 Type 2 diabetes mellitus without complications; E78.5 Hyperlipidemia, unspecified; E66.9 Obesity, unspecified; L02.413 Cutaneous abscess of right upper limb; Z98.51 Tubal ligation status; Z90.49 Acquired absence of other specified parts of digestive tract; Z86.16 Personal history of COVID-19; E03.9 Hypothyroidism, unspecified; Z86.711 Personal history of pulmonary embolism
CPT/HCPCS: 10060; 99282

== ENCOUNTER 2025-04-04 06:05 | Inpatient (IN) | payer MEDICARE, MEDICAID, SELFPAY ==
[2025-04-04] VITALS (34 sets, daily range): BP systolic 123–195; BP diastolic 68–129; PULSE 80–97; RESP 12–33; TEMP 36.5–37; O2SAT 70–100; BMI 40.6; BMI 41.5
--- NOTE | 2025-04-04 06:23 | RAD_ITS ---
PROCEDURE: CHEST 1 VIEW (PORTABLE) 04/04/2025 REASON FOR EXAM: DYSPNEA TECHNIQUE: Frontal view of the chest. COMPARISON: 05/14/2022. FINDINGS: Mild central pulmonary venous congestion, less prominent than the prior exam.. There is no demonstrated pleural abnormality. Enlarged cardiac silhouette. Normal mediastinum and luis enrique. Normal visualized pulmonary arteries. Atheromatous plaques of the visualized aortic arch and descending thoracic aorta. Diffuse spondylosis of the visualized thoracic spine. Normal visualized ribs, clavicles. Degenerative joint disease. There is no demonstrated abnormality of the visualized soft tissue structures of the upper abdomen. RAD/Chest 1 View (Portable) IMPRESSION: Mild central pulmonary venous congestion, less prominent than the prior exam. Reading [facility]
[2025-04-04 06:25] LABS: Hematocrit 38.3 % (37-47); Hemoglobin 12.3 g/dL (12.0-15.0); Immature Granulocytes Count 0.150 X10^3/uL (0.0-0.0); Mean Corp Hgb Conc 32.1 g/dL (32-36); Mean Corpuscular Volume 89.9 fL (81-99); Mean Platelet Vol. 9.3 fl (6.2-12.0); NRBC Flagged by Analyzer 0 % (0-5); Platelet Count 322 K/mm3 (150-450); RBC Distribution Width CV 15.9 % (11.6-14.6); RBC Distribution Width SD 51.4 fl (35.1-43.9); Red Blood Count 4.26 M/mm3 (4.2-5.4); White Blood Count 10.3 K/mm3 (4.4-11.0)
[2025-04-04 06:29] LABS: Allen Test Positive; Base Excess -6 mmol/L (-2 to +2); Comment 16/8 12 40%; FI02 40.0; PO2 52 mmHG (75-100); RR 12; SITE L Radial; SO2 87 % (94-98)
--- NOTE | 2025-04-04 06:45 | EKG12_ITS ---
Test Reason : SOB Blood Pressure : */* mmHG Vent. Rate : 82 BPM Atrial Rate : 82 BPM P-R Int : 148 ms QRS Dur : 134 ms QT Int : 380 ms P-R-T Axes : 24 -18 -36 degrees QTcB Int : 443 ms Normal sinus rhythm Right bundle branch block Inferior infarct , age undetermined T wave abnormality, consider lateral ischemia Abnormal ECG Confirmed by REX SANDERSON, LURDES ([id number]), assistant editor GABINO RAE ([id number]) on 04/10/2025 6:14:17 AM Referred By: Confirmed By: LURDES GOODMAN MD
--- OUTSIDE RECORDS SUMMARY | 2025-04-04 06:56 | XMS RPT_ITS | CCD ---
Author Organization [facility] Care Team Providers Care Atomizer Assembler Name Role Phone Phyllis SANDERSON, Baljeet Denis Unavailable LAWRENCE RODNEY Unavailable Unavailable BARAK TIWARI Unavailable Barak Tiwari MD Primary Care Provider Barak Tiwari MD Primary Care Provider Dr. Barak Tiwari Primary Care Provider Dr. Barak Tiwari Referring Provider Dr. Deshaun Ramos Attending Provider MD Rico Nick Emergency Provider Dr. Mukesh Ye Admit Provider Dr. Mukesh Ye Attending Provider Dr. Mukesh Ye Other Provider Dr. Dexter Millard Attending Provider Dr. Dexter Millard Other Provider Dr. Jesús De La Fuente Attending Provider Barak Tiwari MD Primary Care Provider Dr. Dexter Millard Referring Provider Dr. Ken De La Paz Attending Provider Dr. Dexter Millard Referring Provider Barak Tiwari MD Primary Care Provider Dr. Barak Tiwari Primary Care Provider Le, Dr. Powers Emergency Provider Dr. Mukesh Ye Admit Provider Dr. Mukesh Ye Attending Provider Cassi, Dr. Mayorga Other Provider Dr. Jesús De La Fuente Attending Provider [phone] Dr. Sasha Horne Other Provider Dr. Barak Tiwari Primary Care Provider Autumn, Dr. Powers Emergency Provider Cassi, Dr. Mayorga Admit Provider Dr. Mukesh Ye Attending Provider Cassi, Dr. Mayorga Other Provider Dr. Jesús De La Fuente Attending Provider [phone] Dr. Sasha Horne Referring Provider 1([facility])[phone] Ken De La Paz Attending Provider Dr. Esa Dietz Referring Provider Dr. Sasha Horne Other Provider Dr. Sasha Horne Attending Provider Dr. Barak Tiwari Referring Provider Dr. Esa Garcia Attending Provider [phone] Felicitas Elizondo Attending Provider [place], [place] Eye Unavailable Tanya Linton Attending Provider Unavailable Dr. Barak Tiwari Primary Care Provider Dr. Barak Tiwari Referring Provider NORIS Mar Attending Provider NORIS Mar Other Provider [phone] Barak Tiwari MD Primary Care Provider Nguyen IP ATTORNEY.July WHITFIELD Unavailable Lacey IP ATTORNEY.VEHICLE AND EQUIPMENT CLEANER, Mariana A Unavailable Suppan IP ATTORNEY.VEHICLE AND EQUIPMENT CLEANER, Mariana A Unavailable Linh, Barak Primary Care Unavailable Eli Hernándze Referring Unavailable Eli Hernández Attending Unavailable Baljeet Alvarez Attending Unavailable [place], Barak Primary Care Unavailable Linh, Barak Primary Care Unavailable Eli Hernández Referring Unavailable Eli Hernández Attending Unavailable Linh, Barak Primary Care Unavailable Wynesmontez, Eli Referring Unavailable SilverionesEli herrmann Attending Unavailable Eli Hernández Attending Unavailable [place], Barak Primary Care Unavailable Wynesmnotez, Eli Referring Unavailable [place], Barak Primary Care Unavailable Silverionesmontez, Eli Referring Unavailable Eli Hernández Attending Unavailable Linh, Barak Primary Care Unavailable Silverionesmontez, Eli Referring Unavailable Edgar, Eli Attending Unavailable EDNA QURESHI Referring Unavailable LINH, BARAK J Primary Care Unavailable FLORENCIA LUNDY Referring Unavailable LINH, BARAK J Primary Care Unavailable LINH, BARAK J Primary Care Unavailable ANKUR HOOD Attending Unavailable Provider Soy SANDERSON Unavailable Unavailable Provider Soy SANDERSON Unavailable Unavailable RACHEL ANGEL Admitting Unavailable ANKUR HOOD Referring Unavailable LINH, BARAK J Primary Care Unavailable HECTOR BEGUM Attending Unavailable JERRY MONTOYA Unavailable LINH, BARAK J Primary Care Unavailable LINH, BARAK J Referring Unavailable MARIANA ENCARNACION A Attending Unavailable LINH, BARAK J Primary Care Unavailable SUPPROCHELLE, MARIANA A Referring Unavailable LINH, BARAK J Primary Care Unavailable SELF Referring Unavailable RACHEL COLEMAN Attending Unavailable LINH, BARAK J Primary Care Unavailable JULY CEDILLO Attending Unavailable LINH, BARAK J Primary Care Unavailable SUPPAN, MARIANA A Referring Unavailable LINH, BARAK J Primary Care Unavailable SUPPROCHELLE, MARIANA A Referring Unavailable LINH, BARAK J Primary Care Unavailable HECTOR BEGUM Referring Unavailable SUPPANMARIANA A Attending Unavailable LINH, BARAK J Primary Care Unavailable SUPPAN, MARIANA A Referring Unavailable LINH, BARAK J Primary Care Unavailable LINH, BARAK J Referring Unavailable LINH, BARAK J Primary Care Unavailable JULY CEDILLO Attending Unavailable LINH, BARAK J Primary Care Unavailable LINH, BARAK J Referring Unavailable LINH, BARAK J Primary Care Unavailable LINH, BARAK J Referring Unavailable LINH, BARAK J Primary Care Unavailable JULY CEDILLO Referring Unavailable LINHBARAK Nicole Primary Care Unavailable MARIANA ENCARNACION Attending Unavailable BARAK TIWARI Primary Care Unavailable LINH, BARAK Beaver Referring Unavailable LINH, BARAK Beaver Primary Care Unavailable LINH, BARAK Beaver Referring Unavailable LINH, BARAK Beaver Primary Care Unavailable LINDA GUEVARA Attending Unavailable LINH, BARAK Beaver Primary Care Unavailable LINH, BARAK Beaver Attending Unavailable LINH, BARAK Beaver Primary Care Unavailable LINH, BARAK Beaver Referring Unavailable LINH, BARAK Beaver Primary Care Unavailable PODLOGARALEIDA Attending Unavailable LINH, BARAK Beaver Primary Care Unavailable SUPPMARIANA BYRD A Attending Unavailable LINH, BARAK Beaver Primary Care Unavailable SUPPMARIANA BYRD Attending Unavailable LINH, BARAK Beaver Primary Care Unavailable LINH, BARAK Beaver Attending Unavailable LINH, BARAK Beaver Primary Care Unavailable MARIANA ENCARNACION A Referring Unavailable CHRISSY DOWELL Attending Unavailable LINH, BARAK Beaver Primary Care Unavailable LINH, BARAK Beaver Referring Unavailable Allergies Allergy Classification Reported Allergen(s) Allergy Type Date of Onset Reaction(s) Facility (20 sources) Latex; Translations: [latex] drug allergy 7 Itching [facility] Work Phone: (2 sources) lisinopril drug allergy 7 unsure [facility] Work Phone: (2 sources) tiZANidine drug allergy 7 unsure [facility] Work Phone: (20 sources) Furosemide Drug Allergy 9 Rash [facility] Work Phone: (20 sources) Lisinopril; Translations: [LISINOPRIL] Drug Allergy 6 Cough [facility] Work Phone: (20 sources) tiZANidine; Translations: [TIZANIDINE HCL] Drug Allergy 7 Shortness of Breath [facility] Work Phone: (3 sources) tiZANidine Drug Allergy 3 Shortness of breath [facility] (1 source) Lisinopril Drug Allergy 4 [facility] (1 source) tiZANidine Drug Allergy [facility] Medications Current Medications Medication Drug Class(es) Dates Sig (Normalized) Sig (Original) acyclovir 50 mg/ml topical cream (3 sources) Herpesvirus Nucleoside Analog DNA Polymerase Inhibitor, Herpes Simplex Virus Nucleoside Analog DNA Polymerase Inhibitor, Herpes Zoster Virus Nucleoside Analog DNA Polymerase Inhibitor Start: 11-23-2023 End: 11-30-2023 acyclovir (ZOVIRAX) 5 % crea Apply to affected area five times a day for 4 days. Apply to cold sore. 5 g 0 11/26/2023 11/30/2023 Active [id number] 200 actuat albuterol 0.09 mg/actuat metered dose inhaler (20 sources) beta2-Adrenergic Agonist Start: 05-21-2023 End: 09-27-2024 take 2 puff(s) by inhalation every six hours as needed albuterol HFA (PROVENTIL HFA, VENTOLIN HFA) 90 mcg/actuation inhaler Indications: Bacterial pneumonia Inhale 2 puffs as instructed every 6 hours as needed. 1 each 5 09/27/2024 Active Start: 05-14-2022 take 1 puff(s) by in halation every six hours Albuterol Sulfate (Ventolin Hfa) 90 mcg/actuation HFA aerosol inhaler Active 2 PUFF INHALATION EVERY 6 HOURS May 14, 2022 3:51pm Start: 02-07-2022 End: 03-19-2022 take 2 puff(s) by inhalation every six hours as needed albuterol HFA (PROVENTIL HFA, VENTOLIN HFA) 90 mcg/actuation inhaler Indications: Bacterial pneumonia Inhale 2 Puffs as instructed every 6 hours as needed. 1 Each 3 03/19/2022 Active Start: 02-07-2022 End: 05-14-2022 take 1 puff(s) by inhalation every four hours as needed Albuterol Sulfate (Ventolin Hfa) 90 mcg/actuation HFA aerosol inhaler Discontinued 1 - 2 PUFF INHALATION EVERY 4 HOURS NEEDED February 07, 2022 12:00am May 14, 2022 3:51pm Comment on above: Inhale 2 Puffs as in structed every 6 hours as needed. amoxicillin 875 mg / clavulanate 125 mg oral tablet (2 sources) Penicillin-class Antibacterial Start: End: take 1 tablet by mouth every twelve hours amoxicillin-clavul anate potassium (AUGMENTIN) 875-125 mg per tablet Indications: Pneumonia of both lower lobes due to other aerobic gram-negative bacteria (HCC) Take 1 tablet by mouth every 12 hours for 10 days. 20 tablet 10/06/2024 10/16/2024 Active Start: 02-25-2022 End: 03-07-2022 take 1 tablet by mouth twice daily amoxicillin-clavulanic acid (AUGMENTIN) 875-125 mg per tablet Indications: Acute non-recurrent maxillary sinusitis Take 1 tablet by mouth twice daily for 10 days. 20 tablet 0 02/25/2022 03/07/2022 Active Comment on above: Take 1 tablet by orin th twice daily for 10 days. ascorbic acid 500 mg extended release oral capsule (20 sources) Vitamin C Start: 07-17-2022 take 1 capsule by mouth once daily Ascorbic Acid (Vitamin C) (Vitamin C) 500 mg capsule, extended release Active 500 MG PO DAILY July 17, 2022 1:53pm Start: 05-14-2022 End: 07-17-2022 take 1 capsule by mouth twice daily Ascorbic Acid (Vitamin C) (Vitamin C) 500 mg capsule, extended release Discontinued 500 MG PO TWICE A DAY May 14, 2022 3:51pm July 17, 2022 1:58pm Start: 01-12-2022 End: 11-23-2023 take 1 tablet by mouth once daily C-500 500 mg tablet Indications: Anemia, unspecified type Take 1 tablet by mouth once daily. 30 tablet 5 03/15/2022 11/23/2023 Discontinued Start: 01-12-2022 End: 05-14-2022 take 1 tablet by mouth every twelve hours Ascorbic Acid (Vitamin C) (Vitamin C) 500 mg capsule, extended release Discontinued 500 MG PO Q12H 60 January 12, 2022 12:00am May 14, 2022 3:51pm Take with Iron tablet Comment on above: Take 500 mg by mouth once daily. Take 1 tablet by orin th once daily. ascorbic acid / biotin / ferrous bisglycinate / folic acid / formic acid / iron-dextran complex / niacin / pantothenate / pyridoxine / riboflavin / thiamine / vitamin B12 (20 sources) Nicotinic Acid, Vitamin B12, Vitamin C take 1 tablet by mouth twice daily iron bisgly,ps-FA-B-C#1 2-succ 65 mg-65 mg -1,000 mcg (24) tab Take 500 mg by mouth two times a day. Active iron bisgly,ps-F A-B-C#12-succ 65 mg-65 mg -1,000 mcg (24) tab Take by mouth two times a day. Active iron bisgly,ps-F A-B-C#12-succ 65 mg-65 mg -1,000 mcg (24) tab Take by mouth. Active iron bisgly,ps-F A-B-C#12-succ 65 mg-65 mg -1,000 mcg (24) tab Take by mouth. 0 Active atorvastatin 20 mg oral tablet (20 sources) HMG-CoA Reductase Inhibitor Start: 05-29-2022 End: 07-22-2022 take 20 mg by mouth at bedtime Atorvastatin Discontinued 20 MG PO AT BEDTIME May 29, 2022 5:05pm July 22, 2022 11:07am Start: 05-24-2022 End: 06-03-2025 take 1 tablet by mouth once daily for hyperlipidemia atorvastatin (LIPITOR) 20 mg tablet Indications: Other hyperlipidemia Take 1 tablet by mouth once daily. For cholesterol. 90 tablet 3 06/03/2024 06/03/2025 Active Start: 05-23-2017 End: 05-29-2022 take 1 tablet by mouth once daily for hyperlipidemia atorvastatin (LIPITOR) 40 mg tablet Indications: Other hyperlipidemia Take 1 tablet by mouth once daily. For cholesterol. 90 tablet 1 05/30/2020 04/09/2021 Discontinued Start: 11-27-2016 take 1 tablet by mouth once da katelyn LIPITOR 40 MG TABS One tablet by mouth daily ATORVASTATIN CALCIUM [id number] Baljeet Ferguson MD Comment on above: Take 1 tablet by orin once daily. For cholesterol. azithromycin 500 mg oral tablet (20 sources) Macrolide Antimicrobial Start: 12-23-19 End: 12-31-19 take 1 tablet by mouth once daily azithromycin (ZITHROMAX) 500 mg tablet Take 1 tablet by mouth once daily for 8 doses. 8 tablet 12/22/2024 12/30/2024 Active Start: 08-24-2019 End: 10-05-2019 take 250 mg by mouth once daily Azithromycin Discontinued 250 MG PO DAILY August 24, 2019 12:00am October 05, 2019 1:46pm Start: 04-06-2013 End: 03-31-2014 take 250 mg by mouth once daily Azithromycin Discontinued 250 MG PO DAILY April 06, 2013 1:00am March 31, 2014 10:54am Blood-Glucose Meter monitoring kit (1 source) Start: 03-15-2022 End: 03-16-2022 Blood-Glucose Meter monitoring kit Indications: Type 2 diabetes mellitus without complication, with long-term current use of insulin (HCC) Glucose Meter of Choice - Kit - Dx: Type 2 DM - Controlled E11.9 1 Each 0 03/15/2022 03/16/2022 Active Comment on above: Glucose Meter of Cho ice - Kit - Dx: Type 2 DM - Controlled E11.9 Budesonide / formoterol (20 sources) Corticosteroid, beta2-Adrenergic Agonist Start: 09-27-2024 take 2 puff(s) by inhalation twice daily budesonide-formote rol (SYMBICORT) 160-4.5 mcg/actuation inhaler Inhale 2 puffs as instructed two times a day. 1 each 5 09/27/2024 Active Start: 05-02-2024 End: 09-27-2024 take 2 puff(s) by inhalation twice daily budesonide-formoterol (SYMBICORT) 160-4.5 mcg/actuation inhaler Inhale 2 Puffs as instructed two times a day. 1 Each 5 05/02/2024 09/27/2024 Discontinued Start: 05-02-2024 take 2 puff(s) by in halation twice daily budesonide-formoterol (SYMBICORT) 160-4.5 mcg/actuation inhaler Inhale 2 Puffs as instructed two times a day. 1 Each 5 05/02/2024 Active Start: 04-25-2024 End: 05-02-2024 take 2 puff(s) by inhalation twice daily budesonide-formoterol (SYMBICORT) 160-4.5 mcg/actuation inhaler Inhale 2 Puffs as instructed two times a day. 1 Each 5 04/25/2024 05/02/2024 Discontinued Start: 04-25-2024 take 2 puff(s) by in halation twice daily budesonide-formoterol (SYMBICORT) 160-4.5 mcg/actuation inhaler Inhale 2 Puffs as instructed two times a day. 1 Each 5 04/25/2024 Active Start: 08-31-2023 End: 04-25-2024 take 2 puff(s) by inhalation twice daily budesonide-formoterol (SYMBICORT) 160-4.5 mcg/actuation inhaler Inhale 2 Puffs as instructed two times a day. 1 Each 5 08/31/2023 04/25/2024 Discontinued Start: 08-31-2023 take 2 puff(s) by in halation twice daily budesonide-formoterol (SYMBICORT) 160-4.5 mcg/actuation inhaler Inhale 2 Puffs as instructed two times a day. 1 Each 5 08/31/2023 Active Start: 12-05-2022 End: 08-31-2023 take 2 puff(s) by inhalation twice daily budesonide-formoterol (SYMBICORT) 160-4.5 mcg/actuation inhaler Inhale 2 Puffs as instructed twice daily. 1 Each 5 12/05/2022 08/31/2023 Discontinued Start: 12-05-2022 take 2 puff(s) by in halation twice daily budesonide-formoterol (SYMBICORT) 160-4.5 mcg/actuation inhaler Inhale 2 Puffs as instructed twice daily. 1 Each 5 12/05/2022 Active Start: 07-17-2022 take 1 puff(s) by in halation twice daily Budesonide-Formoterol (Symbicort) 160-4.5 mcg/actuation HFA aerosol inhaler Active 2 PUFF INHALATION TWICE A DAY July 17, 2022 12:00am Start: 06-20-2022 End: 12-05-2022 take 2 puff(s) by inhalation twice daily budesonide-formoterol (SYMBICORT) 160-4.5 mcg/actuation inhaler Inhale 2 Puffs as instructed twice daily. 1 Each 5 06/20/2022 12/05/2022 Discontinued Start: 06-20-2022 take 2 puff(s) by in halation twice daily budesonide-formoterol (SYMBICORT) 160-4.5 mcg/actuation inhaler Inhale 2 Puffs as instructed twice daily. 1 Each 5 06/20/2022 Active Comment on above: Inhale 2 Puffs as in structed twice daily. carvedilol 25 mg oral tablet (20 sources) alpha-Adrenergic Ashley, beta-Adrenergic Ashley Start: 05-06-2023 End: 03-26-2025 take 0.5 tablet by mouth twice daily carvedilol (COREG) 25 mg tablet Take 0.5 tablets by mouth two times a day. 30 tablet 5 09/27/2024 03/26/2025 Active Start: 10-08-2022 End: 04-06-2023 take 0.5 tablet by mouth twice daily carvedilol (COREG) 25 mg tablet Take 0.5 tablets by mouth twice daily. 30 tablet 5 10/08/2022 04/06/2023 Active Start: 10-07-2022 End: 10-08-2022 take 25 mg by mouth twice daily at mealtime Carvedilol Active 25 MG PO TWICE A DAY 180 October 08, 2022 1:20pm must administer with a meal/food Start: 01-22-2022 End: 10-08-2022 take 1 tablet by mouth twice daily carvedilol (COREG) 12.5 mg tablet Take 1 tablet by mouth twice daily. 60 tablet 5 01/22/2022 10/08/2022 Discontinued Start: 01-12-2022 End: 01-22-2022 take 6.25 mg by mouth twice daily Carvedilol Active 6.25 MG PO TWICE A DAY 60 January 12, 2022 12:00am Comment on above: Take 1 tablet by orin th twice daily. Take 6.25 mg by mout h twice daily. Take 0.5 tablets by mouth twice daily. Take 0.5 tablets by mouth two times a day. doxycycline hyclate 100 mg oral tablet (13 sources) Tetracycline-clas s Drug Start: 10-06-2024 End: 10-16-2024 take 1 tablet by mouth twice daily doxycycline (VIBRA-TABS) 100 mg tablet Indications: Pneumonia of both lower lobes due to other aerobic gram-negative bacteria (HCC) Take 1 tablet by mouth two times a day for 10 days. 20 tablet 10/06/2024 10/16/2024 Active Start: 09-08-2023 End: 09-15-2023 take 1 tablet by mouth twice daily doxycycline (VIBRA-TABS) 100 mg tablet Indications: Pain of right lower extremity Take 1 tablet by mouth two times a day for 7 days. 14 tablet 0 09/08/2023 09/15/2023 Active Start: 08-30-2022 End: 09-09-2022 take 1 tablet by mouth twice daily doxycycline monohydrate 100 mg tablet Indications: Cellulitis of skin Take 1 tablet by mouth twice daily for 10 days. 20 tablet 0 08/30/2022 09/09/2022 Active Start: 05-16-2022 End: 05-29-2022 take 100 mg by mouth twice daily Doxycycline Monohydrate Discontinued 100 MG PO TWICE A DAY 10 May 16, 2022 1:00am May 29, 2022 5:07pm Start: 03-15-2022 End: 03-25-2022 take 1 tablet by mouth twice daily doxycycline monohydrate 100 mg tablet Indications: Bronchitis Take 1 tablet by mouth twice daily for 10 days. 20 tablet 0 03/15/2022 03/25/2022 Active Comment on above: Take 1 tablet by orin twice daily for 10 days. escitalopram 10 mg oral tablet (20 sources) Serotonin Reuptake Inhibitor Start: take 1 tablet by mouth once daily escitalopram oxalate (LEXAPRO) 10 mg tablet Indications: Anxiety and depression Take 1 tablet by mouth once daily. 90 tablet 1 08/22/2024 Active Start: 09-30-2021 End: 11-23-2023 escitalopram oxalate (LEXAPR O) 10 mg tablet Take by mouth. 0 07/22/2022 11/23/2023 Discontinued Start: 10-12-2019 End: 10-03-2020 take 1 tablet by mouth once daily escitalopram oxalate (LEXAPRO) 10 mg tablet Indications: Moderate episode of recurrent major depressive disorder (HCC) One pill by mouth daily. 90 tablet 3 10/03/2020 Active Comment on above: One pill by mouth da katelyn. fluorometholone 1 mg/ml ophthalmic suspension (20 sources) Corticosteroid Start: 05-14-2022 Fluorometholone Active 1 DRP EACH EYE DAILY May 14, 2022 1:00am Start: 01-16-2022 take 1 drop(s) into the eye(s) every twelve hours as needed fluorometholone (FML LIQUID FILM) 0.1 % ophthalmic suspension Use 1 drop in both eyes two times a day as needed. 01/16/2022 Active Start: 01-16-2022 fluorometholon e (FML LIQUID FILM) 0.1 % ophthalmic suspension INSTILL 1 DROP IN BOTH EYES 1-2 TIMES PER DAY 01/16/2022 Active Comment on above: INSTILL 1 DROP IN ABBEY TH EYES 1-2 TIMES PER DAY fluticasone propionate 0.05 mg/actuat metered dose nasal spray (7 sources) Corticosteroid Start: End: take 2 spray(s) by mouth once daily as needed fluticasone (FLONASE) 50 mcg/actuation nasal spray Indications: Seasonal allergic rhinitis, unspecified trigger Use 2 Sprays in each nostril once daily as needed for cold/allergy symptoms. Rinse mouth after use. 1 Each 2 06/09/2024 09/07/2024 Active 12 hr guaiFENesin 600 mg extended release oral tablet (3 sources) Start: End: take 1 tablet by mouth twice daily guaiFENesin (MUCINEX) 600 mg 12 hr tablet Indications: Bacterial pneumonia Take 1 tablet by mouth two times a day. 60 tablet 10/20/2024 11/19/2024 Active Start: 11-27-2016 take 2 tablets by mo ut twice daily MUCINEX 600 MG [id number] Two tablets by mouth twice daily GUAIFENESIN [id number] Baljeet Ferguson MD isopropyl alcohol 0.7 ml/ml medicated pad (20 sources) Start: 01-05-2025 alcohol swabs (BD SINGLE USE SWABS REGULAR) Indications: Type 2 diabetes mellitus without complication, with long-term current use of insulin (HCC) For use with insulin injections 4 times daily 400 each 3 01/05/2025 Active Start: 05-06-2023 End: 11-25-2023 alcohol swabs (BD SINGLE USE SWABS REGULAR) Indications: Type 2 diabetes mellitus without complication, with long-term current use of insulin (HCC) For use with insulin injections 4 times daily 400 Each 3 08/31/2023 11/25/2023 Discontinued Start: 09-30-2021 End: 12-17-2022 alcohol swabs (BD SINGLE USE SWABS REGULAR) Indications: Type 2 diabetes mellitus without complication, with long-term current use of insulin (HCC) For use with insulin injections 4 times daily 400 Each 0 12/17/2022 Active Start: 03-08-2021 End: 08-20-2021 alcohol swabs (BD SINGLE USE SWABS REGULAR) Indications: Type 2 diabetes mellitus without complication, with long-term current use of insulin (HCC) For use with insulin injections 4 times daily 400 Each 0 08/20/2021 Active Start: 04-02-2020 End: 08-29-2020 alcohol swabs (BD SINGLE USE SWABS REGULAR) Indications: Type 2 diabetes mellitus without complication, with long-term current use of insulin (HCC) For use with insulin injections 4 times daily 100 Each 04/02/2020 08/29/2020 Discontinued Comment on above: For use with insulin injections 4 times daily iv contrast (will be provided with radiology test) (20 sources) Start: 12-16-2024 End: 12-17-2024 iv contrast (will be provided with radiology test) Indications: Chest pain, unspecified type , Pulmonary HTN (HCC) , SOB (shortness of breath) , History of pulmonary embolism CT Chest PE -Inject, intravenously, once for 1 dose.No IV access, insert saline lock prior to the beginning of sedation, infusion, injection of imaging exam. Discontinue saline lock post exam. If Pt. has a central line or IVAD, may access for administration according to line specific nursing protocol. Once exam is complete flush line and de-access according to line specific nursing protocol in the CT contrast administration guidelines link. 1 each 12/16/2024 12/17/2024 Active Start: 01-10-2022 End: 01-11-2022 iv contrast (will be provide d with radiology test) Indications: Chest pain on breathing CT Chest PE -Inject, intravenously, once for 1 dose.No IV access, insert saline lock prior to the beginning of sedation, infusion, injection of imaging exam. Discontinue saline lock post exam. If Pt. has a central line or IVAD, may access for administration according to line specific nursing protocol. Once exam is complete flush line and de-access according to line specific nursing protocol in the CT contrast administration guidelines link. 1 Each 0 01/10/2022 01/11/2022 Start: 12-10-2018 End: 03-19-2022 iv contrast (will be provide d with radiology test) CT Urogram WO/W Inject, intravenously, once for 1 dose.No IV access, insert saline lock prior to the beginning of sedation, infusion, injection of imaging exam. Discontinue saline lock post exam. If Pt. has a central line or IVAD, may access for administration according to line specific nursing protocol. Once exam is complete flush line and de-access according to line specific nursing protocol in the CT contrast administration guidelines link. 1 Each 12/10/2018 03/19/2022 Discontinued (Course of therapy completed) Start: 12-10-2018 End: 03-19-2022 iv contrast (will be provide d with radiology test) CT Urogram WO/W Inject, intravenously, once for 1 dose.No IV access, insert saline lock prior to the beginning of sedation, infusion, injection of imaging exam. Discontinue saline lock post exam. If Pt. has a central line or IVAD, may access for administration according to line specific nursing protocol. Once exam is complete flush line and de-access according to line specific nursing protocol in the CT contrast administration guidelines link. 1 Each 0 12/10/2018 03/19/2022 Discontinued (Course of therapy completed) Start: 12-10-2018 iv contrast (w ill be provided with radiology test) CT Urogram WO/W Inject, intravenously, once for 1 dose.No IV access, insert saline lock prior to the beginning of sedation, infusion, injection of imaging exam. Discontinue saline lock post exam. If Pt. has a central line or IVAD, may access for administration according to line specific nursing protocol. Once exam is complete flush line and de-access according to line specific nursing protocol in the CT contrast administration guidelines link. 1 Each 0 12/10/2018 Active Comment on above: CT Urogram WO/W Inje ct, intravenously, once for 1 dose.No IV access, insert saline lock prior to the beginning of sedation, infusion, injection of imaging exam. Discontinue saline lock post exam. If Pt. has a central line or IVAD, may access for administration according to line specific nursing protocol. Once exam is complete flush line and de-access according to line specific nursing protocol in the CT contrast administration guidelines link. CT Chest PE -Inject, intravenously, once for 1 dose.No IV access, insert saline lock prior to the beginning of sedation, infusion, injection of imaging exam. Discontinue saline lock post exam. If Pt. has a central line or IVAD, may access for administration according to line specific nursing protocol. Once exam is complete flush line and de-access according to line specific nursing protocol in the CT contrast administration guidelines link. magnesium oxide 400 mg oral tablet (20 sources) Start: End: take 1 tablet by mouth once daily magnesium oxide (MAG-OX) 400 mg (241.3 mg magnesium) tablet Take 1 tablet by mouth once daily. 90 tablet 3 06/10/2024 06/10/2025 Active metFORMIN hydrochloride 1000 mg / SITagliptin 50 mg oral tablet (20 sources) Biguanide, Dipeptidyl Peptidase 4 Inhibitor Start: End: take 1 tablet by mouth twice daily at mealtime SITagliptin-metFORMI N (JANUMET) 50-1,000 mg per tablet Indications: Type 2 diabetes mellitus with diabetic neuropathy, with long-term current use of insulin (HCC) Take 1 tablet by mouth two times a day with meals. 180 tablet 3 05/02/2024 05/02/2025 Active Comment on above: Take 1 tablet by orin th twice daily with meals. methocarbamol 500 mg oral tablet (2 sources) Muscle Relaxant Start: End: take 1 tablet by mouth twice daily as needed methocarbamol (ROBAXIN) 500 mg tablet Indications: Neck pain Take 1 tablet by mouth two times a day as needed. 60 tablet 06/17/2024 07/17/2024 Active metroNIDAZOLE 500 mg oral tablet (2 sources) Nitroimidazole Antimicrobial Start: End: take 1 tablet by mouth twice daily metroNIDAZOLE (FLAGYL) 500 mg tablet Take 1 tablet by mouth two times a day for 7 days. 14 tablet 0 08/14/2023 08/21/2023 Active Comment on above: Take 1 tablet by orin th two times a day for 7 days. nystatin 100 unt/mg / triamcinolone acetonide 0.001 mg/mg topical ointment (20 sources) Polyene Antifungal, Corticosteroid Start: Nystatin-Triamcinolo ne Active 1 APPLIC TOPICAL TWICE A DAY July 17, 2022 12:00am Start: 06-02-2022 End: 11-23-2023 nystatin-triamcinolone (MYCO LOG) ointment Indications: Dermatitis Apply sparingly to skin twice daily for irritation/infection. 30 g 0 06/02/2022 11/23/2023 Discontinued Comment on above: Apply sparingly to s kin twice daily for irritation/infection. predniSONE 10 mg oral tablet (10 sources) Start: 2024 End: 2024 take 3 tablets by mouth once daily predniSONE (DELTASONE) 10 mg tablet Take 3 tablets by mouth once daily. 90 tablet 2 12/22/2024 03/22/2025 Active sucralfate 1000 mg oral tablet (20 sources) Aluminum Complex Start: 2023 End: 2024 take 1 tablet by mouth twice daily sucralfate (CARAFATE) 1 gram tablet Indications: Gastroesophageal reflux disease without esophagitis Take 1 tablet by mouth two times a day. 60 tablet 5 09/27/2024 03/26/2025 Active Start: 01-12-2022 End: 11-02-2023 take 1 tablet by mouth twice daily sucralfate (CARAFATE) 1 gram tablet Indications: Gastroesophageal reflux disease without esophagitis Take 1 tablet by mouth two times a day. 60 tablet 5 05/06/2023 11/02/2023 Active Comment on above: Take 1 g by mouth tw ice daily. Take 1 tablet by orin th twice daily. Take 1 tablet by orin th two times a day. sulfamethoxazole 800 mg / trimethoprim 160 mg oral tablet (10 sources) Dihydrofolate Reductase Inhibitor Antibacterial, Sulfonamide Antimicrobial Start: 025 End: take 1 tablet by mouth once sulfamethoxazole-trim ethoprim (BACTRIM DS) 800-160 mg per tablet Take 1 tablet by mouth every Thursday, Thursday, and Thursday. 12 tablet 2 12/23/2024 03/23/2025 Active SUMAtriptan 50 mg oral tablet (20 sources) Serotonin-1b and Serotonin-1d Receptor Agonist Start: 022 End: SUMAtriptan (IMITREX) 50 mg tablet Indications: Headache, unspecified headache type Take 1 tablet by mouth as needed for migraine headache (see administration instructions). 9 tablet 5 09/27/2024 03/26/2025 Active Start: 04-09-2021 SUMAtriptan (I MITREX) 50 mg tablet Indications: Headache, unspecified headache type Take 1 tablet by mouth as needed for migraine headache (see administration instructions). 9 tablet 3 04/09/2021 Active Start: 04-02-2020 End: 10-03-2020 SUMAtriptan (IMITREX) 50 mg tablet Indications: Headache, unspecified headache type Take 1 tablet by mouth as needed for Migraine Headache (see administration instructions). 9 tablet 04/02/2020 10/03/2020 Discontinued Comment on above: Take 1 tablet by orin th as needed for migraine headache (see administration instructions). levothyroxine sodium 0.2 mg oral tablet (20 sources) l-Thyroxine Start: 024 End: 026 take 1 tablet by mouth once daily before breakfast levothyroxine (SYNTHROID) 200 mcg tablet Indications: Postoperative hypothyroidism Take 1 tablet by mouth daily before breakfast. 90 tablet 3 06/10/2024 Active Start: 07-17-2022 Levothyroxine Active 100 MCG PO .QSun July 17, 2022 12:00am Start: 10-17-2021 take 50 ug by mouth once daily Levothyroxine Active 50 MCG PO DAILY October 17, 2021 2:54pm Start: 07-15-2021 End: 04-04-2023 levothyroxine (SYNTHROID) 20 0 mcg tablet Indications: Postoperative hypothyroidism Take 1 tablet by mouth once daily. Thursday through Thursday, 1/2 tab on Thursday 90 tablet 3 04/04/2022 04/04/2023 Active Start: 04-13-2020 End: 04-09-2021 take 1 tablet by mouth once daily for thyroid dysfunction levothyroxine (SYNTHROID) 200 mcg tablet Indications: Postoperative hypothyroidism Take 1 tablet by mouth once daily. Take on empty stomach. For thyroid 90 tablet 3 04/13/2020 04/09/2021 Discontinued Start: 11-27-2016 take 1 tablet by orin th once daily SYNTHROID 50 MCG TABS One tablet by mouth daily LEVOTHYROXINE SODIUM [id number] Baljeet Ferguson MD Start: 04-06-2013 End: 10-17-2021 take 150 ug by mouth once daily Levothyroxine Disconti nued 150 MCG PO DAILY April 06, 2013 1:00am October 17, 2021 2:55pm Comment on above: Take 1 tablet by [facility] once daily. Thursday through Thursday, 1/2 tab on Thursday valsartan 160 mg oral tablet (20 sources) Angiotensin 2 Receptor Ashley Start: 10-07-2022 End: 06-09-2025 take 1 tablet by mouth once daily valsartan (DIOVAN) 160 mg tablet Take 1 tablet by mouth once daily. 90 tablet 3 06/09/2024 06/09/2025 Active Start: 10-07-2022 End: 10-07-2022 take 160 mg by mouth twice daily Valsartan Discontinued 160 MG PO TWICE A DAY October 07, 2022 12:03pm October 07, 2022 12:04pm Start: 07-22-2022 End: 10-07-2022 take 1 tablet by mouth once daily Valsartan (Diovan) 80 mg tablet Discontinued 80 MG PO DAILY July 22, 2022 12:00am October 07, 2022 12:01pm Comment on above: Take 1 tablet by [facility] once daily. Completed/Discontinued Medications Medication Drug Class(es) Dates Sig (Normalized) Sig (Original) acetaminophen 325 mg / HYDROcodone bitartrate 5 mg oral tablet (11 sources) Opioid Agonist Start: 06-10-2019 End: 06-13-2019 take 1 tablet by mouth every six hours as needed Hydrocodone-Acetami nophen Discontinued 1 TABLET PO EVERY 6 HOURS NEEDED 01 27June 10, 2019 June 13, 2019 1:08am acetaminophen 325 mg / oxyCODONE hydrochloride 5 mg oral tablet (20 sources) Opioid Agonist Start: 09-24-2023 End: 11-23-2023 take 1 tablet by mouth every eight hours as needed for pain oxyCODONE-acetamino phen (PERCOCET) 5-325 mg tablet TAKE 1 TABLET BY MOUTH EVERY 8 HOURS NEEDED FOR PAIN FOR 3 DAYS 0 09/24/2023 11/23/2023 Discontinued Start: 11-15-2019 End: 11-21-2019 take 1 tablet by mouth every four hours as needed Oxycodone-Acetaminophen Discontinued 1 - 2 TABLET PO EVERY 4 HOURS NEEDED 30 November 15, 2019 November 21, 2019 12:02am Start: 09-30-2019 End: 10-03-2019 take 1 tablet by mouth every six hours as needed Oxycodone-Acetaminophen Discontinued 1 TABLET PO EVERY 6 HOURS NEEDED 12 September 30, 2019 October 03, 2019 12:02am Start: 12-13-2018 End: 12-20-2018 take 1 tablet by mouth every four hours as needed Oxycodone-Acetaminophen Discontinued 1 - 2 TABLET PO EVERY 4 HOURS NEEDED 24 10December 13, 2018 December 20, 2018 12:07am ALPRAZolam 0.5 mg oral tablet (11 sources) Benzodiazepine Start: 04-06-2013 End: 03-31-2014 take 0.25 mg by mouth once daily as needed Alprazolam Discontinued 0.25 MG PO DAILY NEEDED April 06, 2013 1:00am March 31, 2014 10:55am amLODIPine 10 mg oral tablet (20 sources) Dihydropyridine Calcium Channel Ashley Start: 01-12-2022 End: 03-15-2023 take 10 mg by mouth once daily Amlodipine Discontinued 10 MG PO DAILY May 14, 2022 3:51pm May 16, 2022 11:38am Start: 04-06-2013 End: 01-12-2022 take 5 mg by mouth once daily Amlodipine Discontinued 5 MG PO DAILY April 06, 2013 1:00am January 12, 2022 1:46pm Comment on above: Take 10 mg by mouth once daily. Take 1 tablet by orin th once daily. aspirin 81 mg oral strip (3 sources) Nonsteroidal Anti-inflammatory Drug Start: 11-27-2016 take 1 tablet by mouth once daily ADULT ASPIRIN EC LOW STRENGTH 81 MG TBEC One tablet by mouth daily ASPIRIN [id number] Baljeet Ferguson MD Start: 09-20-2009 End: 01-22-2021 aspirin(ASPIR-81 81 MG TAB) Take by mouth. 0 09/20/2009 01/22/2021 Discontinued (Discontinued by Patient) Blood-Glucose Meter misc (20 sources) Start: 04-21-2019 End: 03-19-2022 Blood-Glucose Meter misc Ind ications: Type 2 diabetes mellitus without complication, with long-term current use of insulin (HCC) Dispense 1 kit 1 Each 04/21/2019 03/19/2022 Discontinued (Other) Start: 04-21-2019 End: 03-19-2022 Blood-Glucose Meter misc Ind ications: Type 2 diabetes mellitus without complication, with long-term current use of insulin (HCC) Dispense 1 kit 1 Each 0 04/21/2019 03/19/2022 Discontinued (Other) Start: 04-21-2019 Blood-Glucose Meter misc Indications: Type 2 diabetes mellitus without complication, with long-term current use of insulin (HCC) Dispense 1 kit 1 Each 0 04/21/2019 Active Comment on above: Dispense 1 kit cephalexin 500 mg oral capsule (7 sources) Cephalosporin Antibacterial Start: End: take 1 capsule by mouth three times daily cephALEXin (KEFLEX) 500 mg capsule Take 500 mg by mouth three times a day. 0 11/06/2023 11/25/2023 Discontinued Start: 08-13-2023 End: 08-20-2023 take 1 capsule by mouth four times daily cephALEXin (KEFLEX) 500 mg capsule Take 1 capsule by mouth four times daily for 7 days. 28 capsule 0 08/13/2023 08/20/2023 Active Start: 06-11-2023 End: 06-16-2023 take 1 capsule by mouth four times daily cephALEXin (KEFLEX) 500 mg capsule Take 1 capsule by mouth four times daily for 5 days. 20 capsule 0 06/11/2023 06/16/2023 Active Comment on above: Take 1 capsule by mo ut four times daily for 5 days. Take 1 capsule by mo uth four times daily for 7 days. Cholestyramine-Aspartame (Cholestyramine Light) 4 gram powder (3 sources) Start: 05-17-2022 End: 07-17-2022 Cholestyramine-Aspartame (Cholestyramine Light) 4 gram powder Discontinued 4 GM PO AT BEDTIME 240 May 17, 2022 1:00am July 17, 2022 1:57pm administer w/meal; avoid other meds within 1hr before or 4-6hr after dose COMPOUNDED PRESCRIPTION (20 sources) Start: 08-31-2017 End: 03-19-2022 COMPOUNDED PRESCRIPTION Indications: Type 2 diabetes mellitus without complication, with long-term current use of insulin ([facility]) CR 2031 BATTERIES FOR GLUCOSE METER, ACCUCHEK SMARTVIEW TESTING 4 TIMES DAILY INSULIN YES DXE11.9 2 Each 3 08/31/2017 03/19/2022 Discontinued (Course of therapy completed) Start: 08-31-2017 COMPOUNDED PRE SCRIPTION Indications: Type 2 diabetes mellitus without complication, with long-term current use of insulin ([facility]) CR 2031 BATTERIES FOR GLUCOSE METER, ACCUCHEK SMARTVIEW TESTING 4 TIMES DAILY INSULIN YES DXE11.9 2 Each 3 08/31/2017 Active Start: 01-16-2017 End: 03-19-2022 COMPOUNDED PRESCRIPTION Sharyn cations: Type 2 diabetes mellitus without complication, with long-term current use of insulin (HCC) Diabetic Shoes DX: Type 2 Diabetes E11.9 1 Each 01/16/2017 03/19/2022 Discontinued (Other) Start: 01-16-2017 End: 03-19-2022 COMPOUNDED PRESCRIPTION Sharyn cations: Type 2 diabetes mellitus without complication, with long-term current use of insulin (HCC) Diabetic Shoes DX: Type 2 Diabetes E11.9 1 Each 0 01/16/2017 03/19/2022 Discontinued (Other) Start: 01-16-2017 COMPOUNDED PRE SCRIPTION Indications: Type 2 diabetes mellitus without complication, with long-term current use of insulin (HCC) Diabetic Shoes DX: Type 2 Diabetes E11.9 1 Each 0 01/16/2017 Active Comment on above: Diabetic Shoes DX: Type 2 Diabetes E11.9 CR 2031 BATTERIES FO R GLUCOSE METER, ACCUCHEK SMARTVIEW TESTING 4 TIMES DAILY INSULIN YES DXE11.9 erythromycin 0.005 mg/mg ophthalmic ointment (10 sources) Macrolide, Macrolide Antimicrobial Start: 01-01-20 End: 03-19-20 erythromycin (ROMYCIN) 5 mg/gram (0.5 %) ophthalmic ointment estradiol 0.1 mg/ml vaginal cream (8 sources) Estrogen Start: 08-25-19 End: 11-23-19 estradiol (ESTRACE) 0.01 % (0.1 mg/gram) vaginal cream insert 1 gram vaginally 3 times a week before bed 0 08/25/2023 11/23/2023 Discontinued etodolac 200 mg oral capsule (11 sources) Nonsteroidal Anti-inflammatory Drug Start: 04-06-20 13 End: 03-31-20 take 200 mg by mouth four times daily at mealtime Etodolac Discontinued 200 MG PO 4 TIMES DAILY WITH MEALS April 06, 2013 1:00am March 31, 2014 10:53am ferrous sulfate 325 mg oral tablet (20 sources) Start: 05-30-19 take 1 tablet by mouth twice daily Ferrous Sulfate (Ferosul) 325 mg (65 mg iron) Tablet Active 325 MG PO TWICE A DAY May 30, 2021 1:00am Start: 04-04-2021 End: 05-24-2023 take 1 tablet by mouth twice daily at mealtime ferrous sulfate 325 mg (65 mg iron) tablet Indications: Anemia, unspecified type Take 1 tablet by mouth twice daily with meals. 180 tablet 3 01/10/2022 Active Comment on above: Take 1 tablet by orin twice daily with meals. flash glucose scanning reader (FREESTYLE SHIVAM 10 DAY READER) (20 sources) Start: 01-04-2020 End: 11-25-2023 flash glucose scanning reader (FREESTYLE SHIVAM 10 DAY READER) Indications: Type 2 diabetes mellitus without complication, with long-term current use of insulin (HCC) 1 Each once every month. 3 Each 3 01/04/2020 11/25/2023 Discontinued Start: 01-04-2020 flash glucose scanning reader (FREESTYLE SHIVAM 10 DAY READER) Indications: Type 2 diabetes mellitus without complication, with long-term current use of insulin (HCC) 1 Each once every month. 3 Each 3 01/04/2020 Active Comment on above: 1 Each once every mo [facility] [place] furosemide 20 mg oral tablet (20 sources) Loop Diuretic Start: 05-06-2023 End: 11-23-2023 take 0.5 tablet by mouth once daily furosemide (LASIX) 20 mg tablet Indications: Congestive heart failure, unspecified HF chronicity, unspecified heart failure type (HCC) Take 0.5 tablets by mouth once daily. 45 tablet 1 05/06/2023 11/23/2023 Discontinued Start: 08-30-2022 End: 02-26-2023 take 0.5 tablet by mouth once daily furosemide (LASIX) 20 mg tablet Indications: Congestive heart failure, unspecified HF chronicity, unspecified heart failure type (HCC) Take 0.5 tablets by mouth once daily. 45 tablet 1 08/30/2022 Active Start: 07-22-2022 End: 01-18-2023 take 1 tablet by mouth once daily furosemide (LASIX) 20 mg tablet Indications: Congestive heart failure, unspecified HF chronicity, unspecified heart failure type (HCC) Take 1 tablet by mouth once daily. 90 tablet 1 07/22/2022 08/30/2022 Discontinued Start: 05-16-2022 End: 07-22-2022 take 1 tablet by mouth once daily furosemide (LASIX) 40 mg tablet Indications: Congestive heart failure, unspecified HF chronicity, unspecified heart failure type (HCC) Take 1 tablet by mouth once daily. 30 tablet 5 06/06/2022 07/22/2022 Discontinued Comment on above: Take 40 mg by mouth once daily. Take 1 tablet by orin th once daily. Take 0.5 tablets by mouth once daily. hydroCHLOROthiazide 25 mg oral tablet (1 source) Thiazide Diuretic Start : 06-01 End: 10-03 take 1 tablet by mouth once daily hydroCHLOROthiazide (HYDRODIURIL, ESIDRIX) 25 mg tablet Indications: Essential hypertension, benign Take 1 tablet by mouth once daily. 30 tablet 5 06/01/2020 10/03/2020 Discontinued hydrocortisone 10 mg/ml topical cream (20 sources) Corticosteroid Start : 04-04 End: 11-22 hydrocortisone (PROCTOCORT) 1 % cream Indications: External hemorrhoid Apply to affected area twice daily. 56 g 0 04/04/2021 11/23/2023 Discontinued Comment on above: Apply to affected ar ea twice daily. INSULIN DEGLUDEC SOPN (2 sources) Start : 11-27 TRESIBA FLEXTOUCH SOPN as directed INSULIN DEGLUDEC SOPN [id number] Baljeet Ferguson MD 3 ml insulin detemir 100 unt/ml pen injector (20 sources) Insulin Analog Start : 07-03 End: 06-06 insulin detemir U-100 (LEVEMIR FLEXTOUCH U-100 INSULIN) 100 unit/mL (3 mL) injection pen Indications: Type 2 diabetes mellitus with diabetic neuropathy, with long-term current use of insulin ([facility]) Inject 74 Units subcutaneously daily at bedtime. 24 Pen 3 11/13/2021 06/06/2022 Discontinued Start: 04-02-2020 End: 09-04-2020 insulin detemir U-100 (LEVEM IR FLEXTOUCH U-100 INSULIN) 100 unit/mL (3 mL) injection pen Inject 74 Units subcutaneously daily at bedtime. 24 Pen 04/02/2020 09/04/2020 Discontinued Start: 04-06-2013 End: 07-17-2022 Insulin Detemir U-100 (Levem ir Flextouch U100 Insulin) 100 UNITS/ML insulin pen Discontinued 74 UNITS SC AT BEDTIME April 06, 2013 1:00am July 17, 2022 1:55pm Start: 04-06-2013 End: 07-17-2022 Insulin Detemir U-100 (Levem ir Flextouch U-100 Insuln) 100 UNITS/ML insulin pen Discontinued 74 UNITS SC AT BEDTIME April 06, 2013 1:00am July 17, 2022 1:55pm Comment on above: Inject 74 Units subcutaneously daily at bedtime. 3 ml insulin lispro 100 unt/ml pen injector (13 sources) Insulin Analog Start: 05-30-19 End: 10-04-19 inject 16 [IU] by subcutaneous injection once at breakfast, then inject 18 [IU] by subcutaneous injection at lunch, then inject 18 [IU] by subcutaneous injection at dinner insulin lispro (HUMALOG KWIKPEN INSULIN) 100 unit/mL Indications: Type 2 diabetes mellitus without complication, with long-term current use of insulin ([facility]) Use 16 units sq q breakfast and 18 units sq at lunch and 18 units at dinner. 10 Pen 1 05/30/2020 10/03/2020 Discontinued Start: 11-29-2018 Insulin Lispro Active 18 UNIT SQ 1200,2000 November 29, 2018 12:00am Start: 05-23-2017 Insulin Lispro Active 16 UNIT SC DAILY May 23, 2017 1:00am 3 ml insulin aspart, human 100 unt/ml pen injector (20 sources) Insulin Analogue Start: 05-14-2022 End: 07-17-2022 Insulin Aspart (Niacinamide) (Fiasp Flextouch U-100 Insulin) 100 unit/mL (3 mL) insulin pen Discontinued 16 UNIT SC DAILY May 14, 2022 1:00am July 17, 2022 1:55pm Start: 05-14-2022 End: 07-17-2022 Insulin Aspart (Niacinamide) (Fiasp Flextouch U-100 Insulin) 100 unit/mL (3 mL) insulin pen Discontinued 18 UNIT SC TWICE A DAY May 14, 2022 1:00am July 17, 2022 1:55pm Start: 07-03-2021 End: 06-06-2022 inject 16 [IU] by subcutaneous injection once at breakfast, then inject 18 [IU] by subcutaneous injection at lunch, then inject 18 [IU] by subcutaneous injection at dinner insulin aspart, niacinamide, (FIASP FLEXTOUCH U-100 INSULIN) 100 unit/mL (3 mL) pen Indications: Type 2 diabetes mellitus with diabetic neuropathy, with long-term current use of insulin (HCC) Use 16 units sq q breakfast and 18 units sq at lunch and 18 units at dinner 15 Pen 3 11/13/2021 06/06/2022 Discontinued Start: 11-27-2016 NOVOLOG FLEXPE N 100 UNIT/ML SOPN as directed INSULIN ASPART [id number] Baljeet Ferguson MD Comment on above: Use 16 units sq q br eakfast and 18 units sq at lunch and 18 units at dinner loratadine 10 mg oral tablet (20 sources) Start: 09-30-2021 End: 11-25-2023 take 1 tablet by mouth once daily loratadine (CLARITIN) 10 mg tablet Indications: Acute LISETTE (middle ear effusion), bilateral Take 1 tablet by mouth once daily. 30 tablet 09/30/2021 11/25/2023 Discontinued (Other) Start: 08-07-2020 take 1 tablet by orin th once daily loratadine (CLARITIN) 10 mg tablet Indications: Acute LISETTE (middle ear effusion), bilateral Take 1 tablet by mouth once daily. 30 tablet 08/07/2020 Active Comment on above: Take 1 tablet by orin th once daily. losartan potassium 100 mg oral tablet (20 sources) Angiotensin 2 Receptor Ashley Start: 04-06-20 End: 10-09-19 take 1 tablet by mouth once daily losartan (COZAAR) 100 mg tablet Take 1 tablet by mouth once daily. 90 tablet 1 05/30/2020 07/03/2021 Discontinued Comment on above: Take 1 tablet by orin once daily. meloxicam 15 mg oral tablet (2 sources) Nonsteroidal Anti-inflammatory Drug Start: 11-28-19 17 take 1 tablet by mouth once daily MOBIC 15 MG TABS One tablet by mouth daily MELOXICAM [id number] Baljeet Ferguson MD 24 hr metFORMIN hydrochloride 1000 mg / sAXagliptin 2.5 mg extended release oral tablet (13 sources) Biguanide, Dipeptidyl Peptidase 4 Inhibitor Start: 10-01-19 22 take 2.5-1000 mg by mouth once daily sAXagliptin-metFORMI N (KOMBIGLYZE XR) 2.5-1,000 mg TM24 Take 2 tablets by mouth once daily. 180 tablet 3 09/30/2021 Active Start: 04-02-2020 End: 10-03-2020 take 2.5-1000 mg by mouth once daily sAXagliptin-metFORMIN (KOMBIGLYZE XR) 2.5-1,000 mg TM24 Take 2 tablets by mouth once daily. 180 tablet 3 10/03/2020 Active Start: 04-06-2013 take 2 tablets by mo [facility] once daily Saxagliptin-Metformin Active 2 TABLET PO DAILY April 06, 2013 5:30pm Start: 04-06-2013 take 1 tablet by orin twice daily Saxagliptin-Metformin Active 1 TABLET PO TWICE A DAY April 06, 2013 1:00am Comment on above: Take 2 tablets by mo [facility] once daily. 24 hr metoprolol succinate 50 mg extended release oral tablet (20 sources) beta-Adrenergic Ashley Start: 1 End: 3 take 1 tablet by mouth once daily metoprolol succinate ER (TOPROL XL) 50 mg 24 hr tablet Indications: Essential hypertension, benign Take 1 tablet by mouth once daily. 90 tablet 3 01/10/2022 05/23/2022 Discontinued Comment on above: Take 1 tablet by orin once daily. mupirocin 0.02 mg/mg topical ointment (20 sources) RNA Synthetase Inhibitor Antibacterial Start: 4 End: 4 mupirocin (BACTROBAN) 2 % ointment Indications: Cellulitis of skin Apply to affected area three times a day. 22 g 0 06/03/2023 11/23/2023 Discontinued Start: 08-30-2022 End: 06-03-2023 mupirocin (BACTROBAN) 2 % oi ntment Indications: Cellulitis of skin Apply to affected area three times daily. 30 g 0 08/30/2022 06/03/2023 Discontinued Comment on above: Apply to affected ar ea three times daily. Apply to affected ar ea three times a day. nitrofurantoin, macrocrystals 25 mg / nitrofurantoin, monohydrate 75 mg oral capsule (2 sources) Nitrofuran Antibacterial Start: 06-08-19 End: 06-15-19 take 1 capsule by mouth twice daily nitrofurantoin monohydrate and macrocrystal (MACROBID) 100 mg capsule Take 1 capsule by mouth two times a day for 7 days. 14 capsule 0 06/08/2023 06/11/2023 Discontinued Comment on above: Take 1 capsule by [facility] two times a day for 7 days. omeprazole 40 mg delayed release oral capsule (20 sources) Proton Pump Inhibitor Start: 05-16-19 End: 10-08-19 take 40 mg by mouth twice daily Omeprazole Discontinued 40 MG PO TWICE A DAY July 17, 2022 1:53pm October 07, 2022 11:13am Start: 05-30-2020 End: 09-15-2022 take 1 capsule by mouth once daily omeprazole (PRILOSEC) 40 mg capsule Take 1 capsule by mouth once daily. 90 capsule 3 09/15/2022 Active Start: 05-23-2017 take 20 mg by mouth once daily Omeprazole Active 20 MG PO DAILY May 23, 2017 3:47pm Start: 11-27-2016 take 1 tablet by [facility] twice daily PRILOSEC 20 MG CPDR One tablet by mouth twice daily OMEPRAZOLE [id number] Baljeet Ferguson MD Start: 04-06-2013 End: 03-31-2014 take 40 mg by mouth once daily Omeprazole Discontinued 40 MG PO DAILY April 06, 2013 1:00am March 31, 2014 10:47am Comment on above: Take 1 capsule by [facility] once daily. ondansetron 4 mg oral tablet (20 sources) Serotonin-3 Receptor Antagonist Start: End: take 1 tablet by mouth every eight hours as needed for nausea ondansetron (ZOFRAN) 4 mg tablet Indications: Uterine prolapse Take 1 tablet by mouth every 8 hours as needed for nausea/vomiting (after surgery). For postop nausea as needed. 30 tablet 3 05/02/2024 06/09/2024 Discontinued (Course of therapy completed) Start: 09-30-2023 End: 11-23-2023 take 1 tablet by mouth every eight hours as needed for nausea ondansetron orally disintegrating (ZOFRAN ODT) 4 mg disintegrating tablet Take by mouth. TAKE 1 TABLET BY MOUTH EVERY 8 HOURS NEEDED FOR NAUSEA 0 09/30/2023 11/23/2023 Discontinued Start: 06-10-2019 End: 10-05-2019 take 4 mg by mouth every eight hours as needed Ondansetron Discontinued 4 MG PO EVERY 8 HOURS NEEDED June 10, 2019 1:00am October 05, 2019 1:46pm oxyCODONE hydrochloride 5 mg oral tablet (5 sources) Opioid Agonist Start: 02-03-2024 End: 02-06-2024 take 1 tablet by mouth every six hours as needed for pain oxyCODONE IR (ROXICODONE) 5 mg immediate release tablet Indications: Post-operative state Take 1 tablet by mouth every 6 hours as needed for pain (after surgery) for up to 3 days. For pain after surgery as needed. Best to use tylenol and ibuprofen first and then add oxycodone in as needed. 12 tablet 02/03/2024 02/06/2024 pantoprazole 40 mg delayed release oral tablet (20 sources) Proton Pump Inhibitor Start: 10-04-2022 End: 05-02-2025 take 1 tablet by mouth twice daily before mealtime pantoprazole DR (PROTONIX) 40 mg tablet Indications: History of GI bleed Take 1 tablet by mouth two times a day. Take on empty stomach, 1/2 hr before meal. 60 tablet 5 05/02/2024 06/09/2024 Discontinued (Discontinued by another Health Care Provider) Comment on above: Take 1 tablet by orin twice daily. Take on empty stomach, 1/2 hr before meal. perflutren lipid microspheres 1.3 mL in NaCl (PF) 0.9% 10 mL injection (DEFINITY) (20 sources) Start: 07-03-2021 End: 10-02-2022 perflutren lipid microspheres 1.3 mL in NaCl (PF) 0.9% 10 mL injection (DEFINITY) phenazopyridine hydrochloride 100 mg oral tablet (20 sources) Start: 09-24-2023 End: 11-23-2023 take 1 tablet by mouth three times daily phenazopyridine (PYRIDIUM) 100 mg tablet Take 100 mg by mouth three times a day. 0 09/24/2023 11/23/2023 Discontinued Start: 06-08-2023 End: 11-23-2023 take 1 tablet by mouth every eight hours as needed phenazopyridine (PYRIDIUM) 200 mg tablet Take 1 tablet by mouth three times a day as needed. 20 tablet 0 06/08/2023 11/23/2023 Discontinued Comment on above: Take 1 tablet by orin th three times a day as needed. promethazine hydrochloride 12.5 mg oral tablet (2 sources) Phenothiazine Start: 11-27-2016 PROMETHAZINE HCL 12.5 MG TABS as directed PROMETHAZINE HCL [id number] Baljeet Ferguson MD 125 ml sodium chloride 9 mg/ml prefilled syringe (20 sources) Start: 07-03-2021 End: 10-02-2022 sodium chloride 0.9 % (flush) 10 mL (BD POSIFLUSH) Problems Active Problems Problem Classification Problem Date Documented Da te Episodic/Chronic Anxiety disorders (1 source) Anxiety disorder, unspecified; Translations: [Anxiety and depression] Onset: 5 Chronic Asthma (11 sources) Asthma; Translations: [Unspecified asthma, uncomplicated] 12-13-2018 Chronic Biliary tract disease (11 sources) Biliary calculus; Translations: [Calculus of gallbladder without cholecystitis without obstruction] 11-15-2019 Episodic Cancer of thyroid (20 sources) Malignant tumor of thyroid gland; Translations: [Malignant neoplasm of thyroid gland] Onset: 7 11-27-2016 Chronic Chronic obstructive pulmonary disease and bronchiectasis (20 sources) Chronic obstructive lung disease; Translations: [Chronic obstructive pulmonary disease, unspecified] Onset: 3 Resolved: 5 Chronic Chronic obstructive pulmonary disease and bronchiectasis (13 sources) Bronchitis; Translations: [Bronchitis, not specified as acute or chronic] Episodic Chronic ulcer of skin (3 sources) Ulcer of skin of lower extremity; Translations: [Non-pressure chronic ulcer of unspecified part of left lower leg with unspecified severity] Onset: 5 10-24-2022 Chronic Complications of surgical procedures or medical care (20 sources) History of subtotal thyroidectomy; Translations: [Postprocedural hypothyroidism] Chronic Congestive heart failure; nonhypertensive (20 sources) Congestive heart failure; Translations: [Heart failure, unspecified] Onset: 3 Chronic Deficiency and other anemia (3 sources) Iron deficiency anemia due to blood loss; Translations: [Iron deficiency anemia secondary to blood loss (chronic)] Chronic Deficiency and other anemia (16 sources) Anemia, unspecified; Translations: [Anemia, unspecified] Onset: 5 Episodic Deficiency and other anemia (4 sources) Iron deficiency anemia; Translations: [Iron deficiency anemia, unspecified] Episodic Diabetes mellitus with complications (20 sources) Neuropathy due to type 2 diabetes mellitus; Translations: [Type 2 diabetes mellitus with diabetic neuropathy, unspecified] Onset: 2 04-30-2020 Chronic Diabetes mellitus without complication (20 sources) Type 2 diabetes mellitus; Translations: [Type 2 diabetes mellitus without complications] Onset: 7 11-27-2016 Chronic Disorders of lipid metabolism (20 sources) Hyperlipidemia; Translations: [Hyperlipidemia, unspecified] Onset: 6 Resolved: 6 11-27-2016 Chronic E Codes: Natural/environment (11 sources) Dog bite - wound; Translations: [Bitten by dog, initial encounter] 11-24-2017 Episodic Esophageal disorders (20 sources) Gastroesophageal reflux disease; Translations: [Gastroesophageal reflux disease without esophagitis] Onset: 6 11-27-2016 Chronic Essential hypertension (20 sources) Hypertensive disorder; Translations: [Benign essential hypertension] Onset: 6 11-27-2016 Chronic Fluid and electrolyte disorders (4 sources) Hyponatremia; Translations: [Hypo-osmolality and hyponatremia] Episodic Gastrointestinal hemorrhage (2 sources) Gastrointestinal hemorrhage; Translations: [Gastrointestinal hemorrhage, unspecified] Episodic Genitourinary symptoms and ill-defined conditions (20 sources) Urinary incontinence; Translations: [Unspecified urinary incontinence] Onset: 4 11-23-2023 Chronic Headache; including migraine (20 sources) Migraine; Translations: [Migraine, unspecified, not intractable, without status migrainosus] Onset: 4 05-30-2021 Chronic Headache; including migraine (5 sources) Headache; Translations: [Headache, unspecified headache type] 12-05-2022 Episodic Heart valve disorders (20 sources) Aortic valve regurgitation; Translations: [Nonrheumatic aortic (valve) insufficiency] Onset: 3 10-07-2022 Chronic Immunizations and screening for infectious disease (6 sources) Patient encounter status; Translations: [Encounter for immunization] Onset: 5 Episodic Lung disease due to external agents (11 sources) Extrinsic allergic alveolitis; Translations: [Hypersensitivity pneumonitis due to unspecified organic dust] Onset: 5 12-17-2024 Chronic Lymphadenitis (1 source) Generalized enlarged lymph nodes; Translations: [Lymphadenopathy] Onset: 5 Episodic Menopausal disorders (1 source) Atrophic vaginitis; Translations: [Postmenopausal atrophic vaginitis] 11-23-2023 Chronic Menstrual disorders (20 sources) Menorrhagia; Translations: [Excessive and frequent menstruation with regular cycle] Onset: 3 Resolved: 6 11-02-2012 Chronic Mood disorders (20 sources) Recurrent major depressive episodes, moderate ; Translations: [Major depressive disorder, recurrent, moderate] Onset: 0 09-15-2019 Chronic Mood disorders (1 source) Mood disorders; Translations: [Anxiety and depression] Onset: 5 Nausea and vomiting (11 sources) Nausea; Translations: [Nausea] 03-15-2020 Episodic Nonspecific chest pain (4 sources) Chest discomfort; Translations: [Other chest pain] Onset: 5 Episodic Other aftercare (2 sources) detention (current) use of insulin; Translations: [Type 2 diabetes mellitus with diabetic neuropathy, with long-term current use of insulin (HCC)] Onset: 2 Episodic Other aftercare (1 source) detention (current) use of systemic steroids; Translations: [detention (current) use of systemic steroids] Onset: 5 Episodic Other congenital anomalies (1 source) Porokeratosis; Translations: [Other specified congenital malformations of skin] 07-28-2024 Chronic Other connective tissue disease (1 source) Pain in right lower limb; Translations: [Pain in right leg] 09-08-2023 Episodic Other connective tissue disease (1 source) Pain in left leg; Translations: [Pain of left lower extremity] Onset: 5 Episodic Other diseases of veins and lymphatics (20 sources) Lymphedema; Translations: [Lymphedema, not elsewhere classified] Onset: 7 03-02-2017 Chronic Other diseases of veins and lymphatics (1 source) Lymphedema, not elsewhere classified; Translations: [Lymphedema] Onset: 5 Chronic Other diseases of veins and lymphatics (2 sources) Stasis dermatitis; Translations: [Venous insufficiency (chronic) (peripheral)] Episodic Other diseases of veins and lymphatics (1 source) Venous insufficiency (chronic) (peripheral); Translations: [Venous stasis ulcer of right calf without varicose veins, unspecified ulcer stage (HCC)] Onset: 5 Episodic Other gastrointestinal disorders (2 sources) History of gastrointestinal bleed; Translations: [Personal history of other diseases of the digestive system] 11-04-2023 Episodic Other hematologic conditions (1 source) Hyperproteinemia; Translations: [Abnormality of plasma protein, unspecified] 12-01-2024 Episodic Other hematologic conditions (2 sources) Abnormality of plasma protein, unspecified; Translations: [Abnormal protein electrophoresis] Onset: 5 Episodic Other injuries and conditions due to external causes (11 sources) Injury of head; Translations: [Other specified injuries of head, initial encounter] 03-19-2019 Episodic Other lower respiratory disease (1 source) Interstitial pulmonary disease, unspecified; Translations: [Interstitial pneumonia (HCC)] Onset: 5 Chronic Other lower respiratory disease (10 sources) Interstitial lung disease; Translations: [Interstitial pulmonary disease, unspecified] Onset: 5 12-19-2024 Chronic Other lower respiratory disease (20 sources) Dyspnea; Translations: [Shortness of breath] Episodic Other lower respiratory disease (12 sources) Hypoxia; Translations: [Hypoxemia] 01-18-2022 Episodic Other lower respiratory disease (5 sources) Hypoxemia; Translations: [Hypoxemia] Episodic Other lower respiratory disease (6 sources) Shortness of breath; Translations: [Shortness of breath] Onset: 5 Episodic Other lower respiratory disease (1 source) Chest pain on breathing; Translations: [Chest pain on breathing] Episodic Other lower respiratory disease (6 sources) Cough; Translations: [Cough] 02-15-2022 Episodic Other lower respiratory disease (4 sources) Other forms of dyspnea; Translations: [Other respiratory abnormalities] 07-22-2022 Episodic Other lower respiratory disease (10 sources) H/O: asthma; Translations: [Personal history of other diseases of the respiratory system] Onset: 5 12-19-2024 Episodic Other lower respiratory disease (1 source) Obstruction of lower respiratory tract 01-06-2025 Episodic Other lower respiratory disease (1 source) Other disorders of lung; Translations: [Small airways disease] Onset: 5 Episodic Other nervous system disorders (20 sources) Neuropathy; Translations: [Polyneuropathy, unspecified] Onset: 2 01-08-2022 Chronic Other nervous system disorders (1 source) Other symptoms and signs involving cognitive functions and awareness; Translations: [Other signs and symptoms involving cognition] 06-09-2024 Episodic Other non-traumatic joint disorders (1 source) Pain of left wrist; Translations: [Pain in left wrist] 08-06-2020 Episodic Other nutritional; endocrine; and metabolic disorders (5 sources) Obesity; Translations: [Obesity, unspecified] Onset: 7 11-27-2016 Chronic Other nutritional; endocrine; and metabolic disorders (20 sources) Body mass index 40+ - severely obese; Translations: [Morbid (severe) obesity due to excess calories] Onset: 1 06-29-2020 Chronic Other nutritional; endocrine; and metabolic disorders (4 sources) Obesity, unspecified; Translations: [Obesity, unspecified] 07-22-2022 Chronic Other nutritional; endocrine; and metabolic disorders (1 source) Alveolar hypoventilation; Translations: [Morbid (severe) obesity with alveolar hypoventilation] 11-25-2023 Chronic Other nutritional; endocrine; and metabolic disorders (1 source) Hypomagnesemia; Translations: [Hypomagnesemia] 06-10-2024 Chronic Other nutritional; endocrine; and metabolic disorders (2 sources) Morbid (severe) obesity due to excess calories; Translations: [Morbid obesity (HCC)] Onset: 2 Chronic Other nutritional; endocrine; and metabolic disorders (1 source) Body mass index (BMI) 40.0-44.9, adult; Translations: [Morbid obesity with BMI of 40.0-44.9, adult (HCC)] Onset: 2 Chronic Other screening for suspected conditions (not mental disorders or infectious disease) (20 sources) Echocardiogram abnormal; Translations: [Abnormal findings on diagnostic imaging of heart and coronary circulation] Onset: 8 06-23-2017 Episodic Other upper respiratory disease (1 source) Seasonal allergic rhinitis; Translations: [Other seasonal allergic rhinitis] 06-09-2024 Chronic Other upper respiratory disease (6 sources) Congestion of nasal sinus; Translations: [Nasal congestion] 02-15-2022 Episodic Other upper respiratory infections (1 source) Acute maxillary sinusitis; Translations: [Acute maxillary sinusitis, unspecified] Episodic Pneumonia (except that caused by tuberculosis or sexually transmitted disease) (20 sources) Pneumonia; Translations: [Pneumonia, unspecified organism] Onset: 5 Episodic Pneumonia (except that caused by tuberculosis or sexually transmitted disease) (1 source) Pneumonia (except that caused by tuberculosis or sexually transmitted disease); Translations: [Pneumonia of both lower lobes due to other aerobic gram-negative bacteria (HCC)] Onset: 5 Prolapse of female genital organs (20 sources) Third degree uterine prolapse; Translations: [Complete uterovaginal prolapse] Onset: 4 08-13-2023 Chronic Pulmonary heart disease (20 sources) Chronic pulmonary embolism; Translations: [Chronic pulmonary embolism] Onset: 4 Resolved: 4 Chronic Pulmonary heart disease (20 sources) Pulmonary embolism; Translations: [Other pulmonary embolism without acute cor pulmonale] Onset: 4 11-23-2017 Episodic Residual codes; unclassified (11 sources) Past history of procedure; Translations: [Other specified postprocedural states] 03-15-2020 Episodic Residual codes; unclassified (3 sources) Bilateral lower limb edema; Translations: [Localized edema] 07-17-2022 Episodic Residual codes; unclassified (3 sources) Non-pitting edema; Translations: [Edema, unspecified] 07-22-2022 Episodic Residual codes; unclassified (4 sources) Edema, unspecified; Translations: [Edema] 07-22-2022 Episodic Residual codes; unclassified (2 sources) Postoperative state; Translations: [Other specified postprocedural states] 02-03-2024 Episodic Residual codes; unclassified (1 source) Memory impairment; Translations: [Other amnesia] 06-09-2024 Episodic Residual codes; unclassified (1 source) Other specified personal risk factors, not elsewhere classified; Translations: [23-polyvalent pneumococcal polysaccharide vaccine indication of chronic obstructive pulmonary disease in patient 6 to 64 years of age ([facility])] Onset: 5 Episodic Respiratory failure; insufficiency; arrest (adult) (20 sources) Chronic hypoxemic respiratory failure; Translations: [Chronic respiratory failure with hypoxia] Onset: 3 06-20-2022 Chronic Respiratory failure; insufficiency; arrest (adult) (12 sources) Acute respiratory failure with hypoxia; Translations: [Acute respiratory failure] Onset: 5 12-16-2024 Episodic Skin and subcutaneous tissue infections (20 sources) Cellulitis of lower leg; Translations: [Cellulitis of left lower limb] Onset: 4 Episodic Spondylosis; intervertebral disc disorders; other back problems (1 source) Neck pain; Translations: [Cervicalgia] 06-17-2024 Episodic Superficial injury; contusion (11 sources) Injury of forehead; Translations: [Contusion of other part of head, initial encounter] 03-19-2019 Episodic Thyroid disorders (20 sources) Multinodular goiter; Translations: [Non-toxic multinodular goiter] Onset: 6 11-27-2016 Chronic Viral infection (7 sources) Disease caused by 2019-nCoV; Translations: [COVID-19] Onset: 2 02-07-2022 Episodic Past or Other Problems Problem Classification Problem Date Documented Date Episodic/Chronic Abdominal pain (20 sources) Epigastric pain; Translations: [Epigastric pain] Onset: 12-03-2023 11-15-2019 Episodic Calculus of urinary tract (20 sources) Kidney stone; Translations: [Calculus of kidney] Onset: 11-25-2023 06-12-2019 Episodic Cancer of cervix (20 sources) Atypical squamous cells of undetermined significance on cervical Papanicolaou smear; Translations: [Atypical squamous cells of undetermined significance on cytologic smear of cervix (ASC-US)] Onset: 08-27-2023 08-27-2023 Episodic Complication of device; implant or graft (1 source) Displacement of indwelling ureteral stent, initial encounter; Translations: [Displacement of indwelling ureteral stent, initial encounter] Onset: 10-19-2023 Episodic Deficiency and other anemia (20 sources) Anemia; Translations: [Anemia, unspecified] Onset: 07-03-2021 07-03-2021 Episodic Deficiency and other anemia (1 source) Other iron deficiency anemias; Translations: [Other iron deficiency anemia] Onset: 07-03-2021 Episodic Genitourinary symptoms and ill-defined conditions (20 sources) Dysuria; Translations: [Dysuria] Onset: 12-03-2023 06-08-2023 Episodic Other female genital disorders (20 sources) Lump of cervix; Translations: [Other specified noninflammatory disorders of cervix uteri] Onset: 08-13-2023 08-13-2023 Episodic Other lower respiratory disease (20 sources) Dyspnea on exertion; Translations: [Other forms of dyspnea] Onset: 08-07-2022 Episodic Other nervous system disorders (20 sources) Carpal tunnel syndrome of right wrist; Translations: [Carpal tunnel syndrome, right upper limb] Onset: 09-25-2015 Resolved: 07-03-2021 07-03-2021 Chronic Other nutritional; endocrine; and metabolic disorders (20 sources) Morbid obesity; Translations: [Morbid (severe) obesity due to excess calories] Onset: 07-10-2016 Resolved: 01-08-2022 07-10-2016 Chronic Screening and history of mental health and substance abuse codes (1 source) Encounter for screening examination for other mental health and behavioral disorders; Translations: [Encounter for screening examination for other mental health and behavioral disorders] Onset: 11-30-2024 Episodic Sexually transmitted infections (not HIV or hepatitis) (1 source) Cervical high risk human papillomavirus (HPV) DNA test positive; Translations: [ASCUS with positive high risk HPV cervical] Onset: 08-27-2023 Episodic Urinary tract infections (1 source) Urinary tract infection, site not specified; Translations: [Urinary tract infection, site not specified] Onset: 09-10-2023 Episodic Results Test Name Value Interpretation Reference Range Facility Basic metabolic 2000 panelon 03-08-2025 Anion gap [Moles/Vol] 16 mmol/L High 8-15 [facility] Comment on above: Order Comment: Speci men Type: BLOOD SPECIMENOrdering Facility: [facility] Address: [address] [place] [address] Performed By: #### 2 132-9, 74374-8, 8 ####[facility] LABCLIA [id number] [place] [address] [place] Calcium [Mass/Vol] 9.8 mg/dL Normal 8.5-10.2 [facility] Comment on above: Order Comment: Speci men Type: BLOOD SPECIMENOrdering Facility: [facility] Address: [address] [place] [address] Performed By: #### 2 132-9, 87773-6, 8 ####[facility] LABCLIA [id number] [place] [address] [place] Chloride [Moles/Vol] 99 mmol/L Normal 98-107 [facility] Comment on above: Order Comment: Speci men Type: BLOOD SPECIMENOrdering Facility: [facility] Address: [address] [place] [address] Performed By: #### 2 132-9, 41413-8, 8 ####[facility] LABCLIA [id number] [place] [id number] [place] CO2 [Moles/Vol] 24 mmol/L Normal 22-30 [facility] Comment on above: Order Comment: Speci men Type: BLOOD SPECIMENOrdering Facility: [facility] Address: [address] [place] [address] Performed By: #### 2 132-9, 14662-0, 2283-11 ####[facility] LABCLIA [id number] [place] [address] [place] Creatinine [Mass/Vol] 0.80 mg/dL Normal 0.58-0.96 [facility] Comment on above: Order Comment: Zena kang Type: BLOOD SPECIMENOrdering Facility: [facility] Address: [address] [place] [address] Performed By: #### 2 132-9, 87303-5, 2283-11 ####[facility] LABCLIA [id number] [place] [address] [place] eGFRcr SerPlBld CKD-EPI 2020 86 mL/min/1.73m??? Normal >=60 [facility] Comment on above: Order Comment: Zena kang Type: BLOOD SPECIMENOrdering Facility: [facility] Address: [address] [place] [address] Result Comment: Daisha mated Glomerular Filtration Rate (eGFR) is calculated using the 2020 CKD-EPI creatinine equation. This equation utilizes serum creatinine, sex, and age as parameters. The creatinine assay has traceable calibration to isotope dilution-mass spectrometry. Refer to KDIGO guidelines for clinical interpretation. In patients with unstable renal function, e.g. those with acute kidney injury, the eGFR may not accurately reflect actual GFR. Performed By: #### 2 132-9, 75230-0, 2283-11 ####[facility] LABCLIA [id number] [place] [address] [place] Glucose [Mass/Vol] 167 mg/dL High 74-99 [facility] Comment on above: Order Comment: Zena kang Type: BLOOD SPECIMENOrdering Facility: [facility] Address: [address] [place] [address] Result Comment: The [place] [employer] (ADA) provides guidance for cutoff values for fasting glucose and random glucose. The ADA defines fasting as no caloric intake for at least 8 hours. Fasting plasma glucose results between 100 to 125 mg/dL indicate increased risk for diabetes (prediabetes).Fasting plasma glucose results greater than or equal to 126 mg/dL meet the criteria for diagnosis of diabetes. In the absence of unequivocal hyperglycemia, results should be confirmed by repeat testing. In a patient with classic symptoms of hyperglycemia or hyperglycemic crisis, random plasma glucose results greater than or equal to 200 mg/dL meet the criteria for diagnosis of diabetes.Reference: Standards of Medical Care in Diabetes 2016, [place] [employer]. Diabetes Care. 2016.39(Suppl 1). Performed By: #### 2 132-9, 43728-3, 8 ####[facility] LABCLIA [id number] [place] [address] [place] Potassium [Moles/Vol] 4.3 mmol/L Normal 3.7-5.1 [facility] Comment on above: Order Comment: Speci men Type: BLOOD SPECIMENOrdering Facility: [facility] Address: [address] [place] [address] Performed By: #### 2 132-9, 49901-7, 2283-11 ####[facility] LABCLIA [id number] [place] [address] [place] Sodium [Moles/Vol] 139 mmol/L Normal 136-144 [facility] Comment on above: Order Comment: Speci men Type: BLOOD SPECIMENOrdering Facility: [facility] Address: [address] [place] [address] Performed By: #### 2 132-9, 36810-1, 2283-11 ####[facility] LABCLIA [id number] [place] [address] [place] Urea nitrogen [Mass/Vol] 24 mg/dL High 7-21 [facility] Comment on above: Order Comment: Speci men Type: BLOOD SPECIMENOrdering Facility: [facility] Address: [address] [place] [address] Performed By: #### 2 132-9, 16472-0, 2283-11 ####[facility] LABCLIA [id number] [place] [id number] [place] CBC W Auto Differential pane l (Bld)on 03-08-2025 Basophils (Bld) [#/Vol] 0.03 10*3/uL Normal <0.11 [facility] Comment on above: Order Comment: Speci men Type: BLOOD SPECIMENOrdering Facility: [facility] Address: [address] [place] [address] Performed By: #### 5 7021-8 ####[facility] LABCLIA [id number] [place] [address] [place] Basophils/100 WBC (Bld) 0.2 % Normal [facility] Comment on above: Order Comment: Speci men Type: BLOOD SPECIMENOrdering Facility: [facility] Address: [address] [place] [address] Performed By: #### 5 7021-8 ####[facility] LABCLIA [id number] [place] [address] [place] Differential cell count method Nom (Bld) Auto Normal [facility] Comment on above: Order Comment: Speci men Type: BLOOD SPECIMENOrdering Facility: [facility] Address: [address] [place] [address] Performed By: #### 5 7021-8 ####[facility] LABCLIA [id number] [place] [address] [place] Eosinophils (Bld) [#/Vol] 10*3/uL Normal <0.46 [facility] Comment on above: Order Comment: Speci men Type: BLOOD SPECIMENOrdering Facility: [facility] Address: [address] [place] [address] Performed By: #### 5 7021-8 ####[facility] LABCLIA [id number] [place] [address] [place] Eosinophils/100 WBC (Bld) 0.1 % Normal [facility] Comment on above: Order Comment: Speci men Type: BLOOD SPECIMENOrdering Facility: [facility] Address: [address] [place] [address] Performed By: #### 5 7021-8 ####[facility] LABCLIA [id number] [place] [address] [place] Erythrocyte distribution width (RBC) [Ratio] 16.2 % High 11.5-15.0 [facility] Comment on above: Order Comment: Speci men Type: BLOOD SPECIMENOrdering Facility: [facility] Address: [address] [place] [address] Performed By: #### 5 7021-8 ####[facility] LABCLIA [id number] [place] [address] [place] Hematocrit (Bld) [Volume fraction] 40.0 % Normal 36.0-46.0 [facility] Comment on above: Order Comment: Speci men Type: BLOOD SPECIMENOrdering Facility: [facility] Address: [address] [place] [address] Performed By: #### 5 7021-8 ####[facility] LABIA [id number] [place] [address] [place] Hemoglobin (Bld) [Mass/Vol] 13.1 g/dL Normal 11.5-15.5 [facility] Comment on above: Order Comment: Speci men Type: BLOOD SPECIMENOrdering Facility: [facility] Address: [address] [place] [address] Performed By: #### 5 7021-8 ####[facility] LABCLIA [id number] [place] [address] [place] Immature granulocytes (Bld) [#/Vol] 0.10 10*3/uL High <0.10 [facility] Comment on above: Order Comment: Speci men Type: BLOOD SPECIMENOrdering Facility: [facility] Address: [address] [place] [address] Performed By: #### 5 7021-8 ####[facility] LABCLIA [id number] [place] [address] [place] Immature granulocytes/100 WBC (Bld) 0.7 % Normal [facility] Comment on above: Order Comment: Speci men Type: BLOOD SPECIMENOrdering Facility: [facility] Address: [address] [place] [address] Performed By: #### 5 7021-8 ####[facility] LABCLIA [id number] [place] [address] [place] Lymphocytes (Bld) [#/Vol] 1.63 10*3/uL Normal 1.00-4.00 [facility] Comment on above: Order Comment: Speci men Type: BLOOD SPECIMENOrdering Facility: [facility] Address: [address] [place] [address] Performed By: #### 5 7021-8 ####[facility] LABCLIA [id number] [address] [place] Lymphocytes/100 WBC (Bld) 11.2 % Normal [facility] Comment on above: Order Comment: Speci men Type: BLOOD SPECIMENOrdering Facility: [facility] Address: [address] [place] [address] Performed By: #### 5 7021-8 ####[facility] LABIA [id number] [address] [place] MCH (RBC) [Entitic mass] 28.5 pg Normal 26.0-34.0 [facility] Comment on above: Order Comment: Speci men Type: BLOOD SPECIMENOrdering Facility: [facility] Address: [address] [place] [address] Performed By: #### 5 7021-8 ####[facility] LABCLIA [id number] [address] [place] MCHC (RBC) [Mass/Vol] 32.8 g/dL Normal 30.5-36.0 [facility] Comment on above: Order Comment: Speci men Type: BLOOD SPECIMENOrdering Facility: [facility] Address: [address] [place] [address] Performed By: #### 5 7021-8 ####[facility] LABCLIA [id number] [address] [place] MCV (RBC) [Entitic vol] 87.0 fL Normal 80.0-100.0 [facility] Comment on above: Order Comment: Speci men Type: BLOOD SPECIMENOrdering Facility: [facility] Address: [address] [place] [address] Performed By: #### 5 7021-8 ####[facility] LABCLIA [id number] [place] [address] [place] Monocytes (Bld) [#/Vol] 0.45 10*3/uL Normal <0.87 [facility] Comment on above: Order Comment: Speci men Type: BLOOD SPECIMENOrdering Facility: [facility] Address: [address] [place] [address] Performed By: #### 5 7021-8 ####[facility] LABCLIA [id number] [place] [address] [place] Monocytes/100 WBC (Bld) 3.1 % Normal [facility] Comment on above: Order Comment: Speci men Type: BLOOD SPECIMENOrdering Facility: [facility] Address: [address] [place] [address] Performed By: #### 5 7021-8 ####[facility] LABCLIA [id number] [place] [address] [place] Neutrophils (Bld) [#/Vol] 12.31 10*3/uL High 1.45-7.50 [facility] Comment on above: Order Comment: Speci men Type: BLOOD SPECIMENOrdering Facility: [facility] Address: [address] [place] [address] Performed By: #### 5 7021-8 ####[facility] LABCLIA [id number] [place] [address] [place] Neutrophils/100 WBC (Bld) 84.7 % Normal [facility] Comment on above: Order Comment: Speci men Type: BLOOD SPECIMENOrdering Facility: [facility] Address: [address] [place] [address] Performed By: #### 5 7021-8 ####[facility] LABCLIA [id number] [place] [address] [place] Nucleated RBC (Bld) [#/Vol] 10*3/uL Normal <0.01 [facility] Comment on above: Order Comment: Speci men Type: BLOOD SPECIMENOrdering Facility: [facility] Address: [address] [place] [address] Performed By: #### 5 7021-8 ####[facility] LABCLIA [id number] [place] [address] [place] Nucleated RBC/100 WBC (Bld) [Ratio] 0.0 /100 WBC Normal [facility] Comment on above: Order Comment: Speci men Type: BLOOD SPECIMENOrdering Facility: [facility] Address: [address] [place] [address] Performed By: #### 5 7021-8 ####[facility] LABCLIA [id number] [place] [address] [place] Platelet mean volume (Bld) [Entitic vol] 10.1 fL Normal 9.0-12.7 [facility] Comment on above: Order Comment: Speci men Type: BLOOD SPECIMENOrdering Facility: [facility] Address: [address] [place] [address] Performed By: #### 5 7021-8 ####[facility] LABCLIA [id number] [place] [address] [place] Platelets (Bld) [#/Vol] 277 10*3/uL Normal 150-400 [facility] Comment on above: Order Comment: Speci men Type: BLOOD SPECIMENOrdering Facility: [facility] Address: [address] [place] [address] Performed By: #### 5 7021-8 ####[facility] LABCLIA [id number] [place] [address] [place] RBC (Bld) [#/Vol] 4.60 10*6/uL Normal 3.90-5.20 [facility] Comment on above: Order Comment: Speci men Type: BLOOD SPECIMENOrdering Facility: [facility] Address: [address] [place] [address] Performed By: #### 5 7021-8 ####[facility] LABCLIA [id number] [place] [address] [place] WBC (Bld) [#/Vol] 14.53 10*3/uL High 3.70-11.00 [facility] Comment on above: Order Comment: Speci men Type: BLOOD SPECIMENOrdering Facility: [facility] Address: [address] [place] [address] Performed By: #### 5 7021-8 ####[facility] LABCLIA [id number] [place] [id number] [place] CNOVon 03-08-2025 CNOV Normal [facility] CNPNon 03-08-2025 CNPN Normal [facility] D dimer FEU PPP-mCncon 03-08 Fibrin D-dimer FEU (PPP) [Mass/Vol] 3580 ng/mL FEU High <500 [facility] Comment on above: Order Comment: Speci men Type: BLOOD SPECIMENOrdering Facility: [facility] Address: [address] [place] [address] Performed By: #### 4 8065-7 ####[facility] LABCLIA [id number] [place] [address] [place] ECG COMPLETEon 03-08-2025 ECG COMPLETE Normal [facility] Ferritin SerPl-mCncon 2024 Ferritin [Mass/Vol] 65.5 ng/mL Normal 14.7-205.1 [facility] Comment on above: Order Comment: Speci men Type: BLOOD SPECIMENOrdering Facility: [facility] Address: [address] [place] [address] Performed By: #### 5 0190-8, 59823-4, 16621-7, 2276-4 ####[facility] LABCLIA [id number] [place] [id number] [place] Fibrin D-dimer FEU (PPP) [Ma ss/Vol]on 03-08-2025 D DIMER AGE-RELATED CUTOFF 580 ng/mL FEU Normal [facility] Comment on above: Order Comment: Speci men Type: BLOOD SPECIMENOrdering Facility: [facility] Address: [address] [place] [address] Performed By: #### 4 8065-7 ####[facility] LABCLIA [id number] [place] [address] [place] Folate SerPl-mCncon 03-08-20 25 Folate [Mass/Vol] 11.7 ng/mL Normal >4.7 [facility] Comment on above: Order Comment: Speci men Type: BLOOD SPECIMENOrdering Facility: [facility] Address: [address] [place] [address] Performed By: #### 2 132-9, 98710-9, 2284-8 ####[facility] LABCLIA [id number] [place] [address] [place] HbA1c (Bld)on 03-08-2025 Average glucose Estimated from glycated hemoglobin (Bld) [Mass/Vol] 157 mg/dL Normal [facility] Comment on above: Order Comment: Saraii men Type: BLOOD SPECIMENOrdering Facility: [facility] Address: [address] [place] [address] Result Comment: eAG: (Estimated average glucose) is a calculated value from HgbA1c and is branch customer service representative of the average blood glucose level in the last 2-3 month period. Performed By: #### 5 5454-3 ####[facility] LABCLIA [id number] [address] [place] HbA1c (Bld) [Mass fraction] 7.1 % High 4.3-5.6 [facility] Comment on above: Order Comment: Zena jorge luis Type: BLOOD SPECIMENOrdering Facility: [facility] Address: [address] [place] [address] Result Comment: Amer [place] Diabetes Association guidelines indicate that patients with HgbA1c in the range 5.7-6.4% are at increased risk for development of diabetes, and intervention by lifestyle modification may be beneficial. HgbA1c greater or equal to 6.5% is considered diagnostic of diabetes. Performed By: #### 5 5454-3 ####[facility] LABCLIA [id number] [place] [id number] [place] Iron and Iron binding capaci ty panelon 03-08-2025 Iron [Mass/Vol] 53 ug/dL Normal 41-186 [facility] Comment on above: Order Comment: Speci men Type: BLOOD SPECIMENOrdering Facility: [facility] Address: [address] [place] [address] Performed By: #### 5 0190-8, 88284-8, 89961-4, 2276-4 ####[facility] [id number] [place] [address] [place] Iron binding capacity [Mass/Vol] 287 ug/dL Normal 232-386 [facility] Comment on above: Order Comment: Speci men Type: BLOOD SPECIMENOrdering Facility: [facility] Address: [address] [place] [address] Performed By: #### 5 0190-8, 75289-1, 27237-6, 2276-4 ####[facility] [id number] [address] [place] Iron/TIBC [Molar ratio] 18.5 % Normal 15.0-57.0 [facility] Comment on above: Order Comment: Speci men Type: BLOOD SPECIMENOrdering Facility: [facility] Address: [address] [place] [address] Performed By: #### 5 0190-8, 50056-5, 18922-5, 2276-4 ####[facility]BR[facility] [id number] [place] [id number] [place] Magnesium SerPl-mCncon 03-08 Magnesium [Mass/Vol] 1.5 mg/dL Low 1.7-2.3 [facility] Comment on above: Order Comment: Speci men Type: BLOOD SPECIMENOrdering Facility: [facility] Address: [address] [place] [address] Performed By: #### 5 0190-8, 00486-9, 35550-0, 2276-4 ####[facility] LABCLIA [id number] [place] [address] [place] NT-proBNP [facility] 03-08 Natriuretic peptide.B prohormone N-Terminal [Mass/Vol] 5104 pg/mL High <125 [facility] Comment on above: Order Comment: Speci men Type: BLOOD SPECIMENOrdering Facility: [facility] Address: [address] [place] [address] Performed By: #### 5 0190-8, 84424-2, 10304-1, 6-4 ####[facility] [id number] [place] [address] [place] Vit B12 [facility] 025 Cobalamin (Vitamin B12) [Mass/Vol] 415 pg/mL Normal 232-1245 [facility] Comment on above: Order Comment: Speci men Type: BLOOD SPECIMENOrdering Facility: [facility] Address: [address] [place] [address] Performed By: #### 2 132-9, 81490-7, 2284-8 ####[facility] [id number] [place] [address] [place] CNOVon 03-03-2025 CNOV Normal [facility] CNOVon 02-23-2025 CNOV Normal [facility] US LEG VEIN DVT UNL VAS LABo n 02-22-2025 US LEG VEIN DVT UNL VAS LAB Normal [facility] CNOVon 02-21-2025 CNOV Normal [facility] ANTI NEUTRO CYTO ABon 2024 INTERPRETATION (ANCA) Normal [facility] Comment on above: Order Comment: Speci men Type: BLOOD SPECIMENOrdering Facility: [facility] Address: [address] [place] [address] Performed By: #### A NCA ####[facility] LABCLIA [id number] [place] [address] [place] Myeloperoxidase Ab Qn (S) 0.9 AI Normal <1.0 [facility] Comment on above: Order Comment: Speci men Type: BLOOD SPECIMENOrdering Facility: [facility] Address: [address] [place] [address] Performed By: #### A NCA ####[facility] LABCLIA [id number] [place] [address] [place] Neutrophil cytoplasmic Ab.classic IF Ql (S) Negative Normal Negative [facility] Comment on above: Order Comment: Speci men Type: BLOOD SPECIMENOrdering Facility: [facility] Address: [address] [place] [address] Performed By: #### A NCA ####[facility] LABCLIA [id number] [address] [place] Neutrophil cytoplasmic Ab.perinuclear IF Ql (S) Positive Abnormal Negative [facility] Comment on above: Order Comment: Speci men Type: BLOOD SPECIMENOrdering Facility: [facility] Address: [address] [place] [address] Performed By: #### A NCA ####[facility] LABCLIA [id number] [place] [address] [place] Proteinase 3 Ab Qn (S) 0.5 AI Normal <1.0 [facility] Comment on above: Order Comment: Speci men Type: BLOOD SPECIMENOrdering Facility: [facility] Address: [address] [place] [address] Performed By: #### A NCA ####[facility] LABCLIA [id number] [place] [address] [place] STAFF REVIEW (ANCA) Reviewed by Soham Johnson, Ph.D D(SHAYLA) Normal [facility] Comment on above: Order Comment: Speci men Type: BLOOD SPECIMENOrdering Facility: [facility] Address: [address] [place] [address] Performed By: #### A NCA ####[facility] LABCLIA [id number] [address] [place] [address] [place] CNOVon 01-20-2025 CNOV Normal [facility] IMMUNOFIXATION SCREEN, SERUM on 01-20-2025 MPA RESULT No M protein is identified. Normal No M protein is identified. [facility] Comment on above: Order Comment: Speci men Type: BLOOD SPECIMENOrdering Facility: [facility] Address: [address] [place] [address] Performed By: #### I FES ####[facility] LABIA [id number] [address], [address] OF [facility] STAFF REVIEW (MPA) Reviewed by Nicol Friend MD [facility] Comment on above: Order Comment: Speci men Type: BLOOD SPECIMENOrdering Facility: [facility] Address: [address] [place] [address] Performed By: #### I FES ####[facility] LABIA [id number] [address], [facility] [place] IMMUNOGLOBULINS,IGG,IGA,IGMo n 01-20-2025 IgA [Mass/Vol] 243 mg/dL Normal 70-400 [facility] Comment on above: Order Comment: Speci men Type: BLOOD SPECIMENOrdering Facility: [facility] Address: [address] [place] [address] Performed By: #### S ERIMM ####[facility] LABCLIA [id number] [address] [place] [address] [place] IgG [Mass/Vol] 3060 mg/dL High 700-1600 [facility] Comment on above: Order Comment: Speci men Type: BLOOD SPECIMENOrdering Facility: [facility] Address: [address] [place] [address] Performed By: #### S ERIMM ####[facility] LABIA [id number] [place] [address] [place] IgM [Mass/Vol] 108 mg/dL Normal 40-230 [facility] Comment on above: Order Comment: Speci men Type: BLOOD SPECIMENOrdering Facility: [facility] Address: [address] [place] [address] Performed By: #### S ERIMM ####[facility] LABCLIA [id number] [place] [address] [place] KAPPA/GALINDO,FREE,SERon 2024 Immunoglobulin light chains.kappa.free (S) [Mass/Vol] 84.6 mg/L High 3.3-19.4 [facility] Comment on above: Order Comment: Speci men Type: BLOOD SPECIMENOrdering Facility: [facility] Address: [address] [place] [address] Result Comment: Rare ly, increased serum free light chains levels may not be detected or accurately quantified due to prozone phenomenon or in high viscosity samples using this immunoturbidimetric assay. Correlation with other laboratory results and clinical findings is recommended.The [place] Free Light Chain was performed using the Binding Site Optilite immunoturbidimetric method. Result obtained with different assay methods or kits cannot be used interchangeably. Performed By: #### K LFRS ####[facility] LABCLIA [id number] [place] [address] [place] Immunoglobulin light chains.kappa/Immuno globulin light chains.lambda (S) [Mass ratio] 1.41 Normal 0.26-1.65 [facility] Comment on above: Order Comment: Speci men Type: BLOOD SPECIMENOrdering Facility: [facility] Address: [address] [place] [address] Performed By: #### K LFRS ####[facility] LABCLIA [id number] [place] [address] [place] Immunoglobulin light chains.lambda.free [Mass/Vol] 60.1 mg/L High 5.7-26.3 [facility] Comment on above: Order Comment: Speci men Type: BLOOD SPECIMENOrdering Facility: [facility] Address: [address] [place] [address] Result Comment: Rare ly, increased serum free light chains levels may not be detected or accurately quantified due to prozone phenomenon or in high viscosity samples using this immunoturbidimetric assay. Correlation with other laboratory results and clinical findings is recommended.The [place] Free Light Chain was performed using the Binding Site Optilite immunoturbidimetric method. Result obtained with different assay methods or kits cannot be used interchangeably. Performed By: #### K LFRS ####[facility] LABCLIA [id number] [place] [address] [place] LUNG DIFFUSION CAPACITY (CHANCE O)on 01-20-2025 LUNG DIFFUSION CAPACITY (DLCO) Normal [facility] SPIROMETRY - BASELINE AND PO ST DILATORon 01-20-2025 SPIROMETRY - BASELINE AND POST DILATOR Normal [facility] CNPNon 01-12-2025 CNPN Normal [facility] CNPNon 01-10-2025 CNPN Normal [facility] PROTEIN ELECTROPHORESIS SERU M (P)on 01-10-2025 Albumin [Mass/Vol] 3.53 g/dL Normal 3.43-5.41 [facility] Comment on above: Order Comment: Speci men Type: BLOOD SPECIMENOrdering Facility: [facility] Address: [address] [place] [address] Performed By: #### L [id number] ####[facility] LABCLIA [id number] [place] [address] [place] Alpha 1 globulin Elph [Mass/Vol] 0.24 g/dL Normal 0.18-0.43 [facility] Comment on above: Order Comment: Speci men Type: BLOOD SPECIMENOrdering Facility: [facility] Address: [address] [place] [address] Performed By: #### L [id number] ####[facility] LABCLIA [id number] [place] [id number] [place] Alpha 2 globulin Elph [Mass/Vol] 0.68 g/dL Normal 0.42-0.98 [facility] Comment on above: Order Comment: Speci men Type: BLOOD SPECIMENOrdering Facility: [facility] Address: [address] [place] [address] Performed By: #### L [id number] ####[facility] LABCLIA [id number] [place] [id number] [place] Beta globulin Elph [Mass/Vol] 1.18 g/dL High 0.61-1.17 [facility] Comment on above: Order Comment: Speci men Type: BLOOD SPECIMENOrdering Facility: [facility] Address: [address] [place] [address] Performed By: #### L [id number] ####[facility] LABCLIA [id number] [place] [address] [place] Gamma globulin Elph [Mass/Vol] 2.86 g/dL High 0.53-1.51 [facility] Comment on above: Order Comment: Speci men Type: BLOOD SPECIMENOrdering Facility: [facility] Address: [address] [place] [address] Performed By: #### L [id number] ####[facility] LABCLIA [id number] [place] [address] [place] INTERPRETATION COMMENT FOR PROTEIN ELECTROPHORESIS Normal [facility] Comment on above: Order Comment: Speci men Type: BLOOD SPECIMENOrdering Facility: [facility] Address: [address] [place] [address] Performed By: #### L [id number] ####[facility] LABCLIA [id number] [place] [id number] [place] M-PROTEIN LOCATION Normal [facility] Comment on above: Order Comment: Speci men Type: BLOOD SPECIMENOrdering Facility: [facility] Address: [address] [place] [address] Result Comment: Not Applicable. Performed By: #### L [id number] ####[facility] LABCLIA [id number] [address], [place] [address] [place] Protein Fractions [Interp] An atypical region of restricted mobility is identified on protein electrophoresis. Abnormal No definitive M protein is identified on protein electrophoresi s. [facility] Comment on above: Order Comment: Speci men Type: BLOOD SPECIMENOrdering Facility: [facility] Address: [address] [place] [address] Performed By: #### L [id number] ####[facility] LABCLIA [id number] [address], [place] [address] [place] Protein.monoclonal Elph [Mass/Vol] 0.00 g/dL Normal <=0.00 [facility] Comment on above: Order Comment: Speci men Type: BLOOD SPECIMENOrdering Facility: [facility] Address: [address] [place] [address] Performed By: #### L [id number] ####[facility] [id number] [place] [address] [place] SPE STAFF REVIEW Reviewed by Dr. Kristina Wise MD [facility] Comment on above: Order Comment: Speci men Type: BLOOD SPECIMENOrdering Facility: [facility] Address: [address] [place] [address] Performed By: #### L [id number] ####[facility] LABIA [id number] [place] [address] [place] Prot SerPl-mCncon 01-10-2025 Protein [Mass/Vol] 8.5 g/dL High 6.3-8.0 [facility] Comment on above: Order Comment: Speci men Type: BLOOD SPECIMENOrdering Facility: [facility] Address: [address] [place] [address] Performed By: #### 3 024-7, 3016-3, 2885-2, 3051-0 ####[facility] LABIA [id number] [place] [id number] [place] T3Free SerPl-mCncon 01-11-20 25 Free T3 [Mass/Vol] 1.8 pg/mL Low 2.3-4.1 [facility] Comment on above: Order Comment: Speci men Type: BLOOD SPECIMENOrdering Facility: [facility] Address: [address] [place] [address] Performed By: #### 3 024-7, 3016-3, 2885-2, 3051-0 ####[facility] LABCLIA [id number] [place] [address] [place] T4 Free SerPl-mCncon 025 Free T4 [Mass/Vol] 2.0 ng/dL High 0.9-1.7 [facility] Comment on above: Order Comment: Speci men Type: BLOOD SPECIMENOrdering Facility: [facility] Address: [address] [place] [address] Performed By: #### 3 024-7, 3016-3, 2885-2, 3051-0 ####[facility] LABCLIA [id number] [place] [address] [place] TSH SerPl-aCncon 01-10-2025 TSH Qn 2.930 m[IU]/L Normal 0.270-4.200 [facility] Comment on above: Order Comment: Speci men Type: BLOOD SPECIMENOrdering Facility: [facility] Address: [address] [place] [address] Performed By: #### 3 024-7, 3016-3, 2885-2, 3051-0 ####[facility] LABIA [id number] [place] [id number] [place] XR CHEST 2V FRONTAL/LATon XR CHEST 2V FRONTAL/LAT Normal [facility] CNOVon 01-06-2025 CNOV Normal [facility] CNPNon 01-05-2025 CNPN Normal [facility] CNPNon 12-29-2024 CNPN Normal [facility] CNPNon 12-28-2024 CNPN Normal [facility] CNPNon 12-27-2024 CNPN Normal [facility] CNCOon 12-23-2024 CNCO Letter Text Normal [facility] [id number] 12-21-2024 [id number] HNO ID: [id number] Author: KURTIS DOWELL RN Service: ? Author Type: Registered Nurse Type: [id number] Filed: 12/21/2024 12:07 Note Text: You have been ordered 4L of oxygen for home going only on exertion, no oxygen needed while at rest Oxygen has been set up through [employer] will deliver portable tank to the hospital room prior to discharge Please call upon arrival home ([phone]) for delivery of home concentrator Normal Basic metabolic 2000 panelon 12-21-2024 Anion gap [Moles/Vol] 10 mmol/L Normal 5-16 Comment on above: Order Comment: Zena kang Type: BLOOD SPECIMEN [facility]ing Facility: [facility] Address: [address] [place] [address] Performed By: #### 1 1572-5, 93126-6, 40212-6, 69175-2, 5195-3 #### [facility] CLIA [id number] [address] [place] [address] [place] Calcium [Mass/Vol] 9.7 mg/dL Normal 8.5-10.5 Comment on above: Order Comment: Zena kang Type: BLOOD SPECIMEN [facility]ing Facility: [facility] Address: [address] [place] [address] Performed By: #### 1 1572-5, 17657-1, 82617-2, 92251-1, 5195-3 #### [facility] CLIA [id number] [address] [place] [address] [place] Chloride [Moles/Vol] 103 mmol/L Normal 98-107 Comment on above: Order Comment: Zena kang Type: BLOOD SPECIMEN [facility]ing Facility: [facility] Address: [address] [place] [address] Performed By: #### 1 1572-5, 72851-5, 07573-3, 81627-2, 5195-3 #### [facility] CLIA [id number] [address] [place], [place] [address] [place] CO2 [Moles/Vol] 22 mmol/L Normal 21-32 Comment on above: Order Comment: Speci jorge luis Type: BLOOD SPECIMEN [facility]ing Facility: [facility] Address: [address] [place] [address] Performed By: #### 1 1572-5, 81333-6, 39471-1, 20681-4, 5195-3 #### [facility] CLIA [id number] [address] [place] [address] [place] Creatinine [Mass/Vol] 0.68 mg/dL Normal 0.51-0.95 Comment on above: Order Comment: Speci jorge luis Type: BLOOD SPECIMEN [facility]ing Facility: [facility] Address: [address] [place] [address] Result Comment: Bhavana ents receiving either N-Acetylcysteine (NAC) or Metamizole prior to venipuncture, may have falsely depressed results. Performed By: #### 1 1572-5, 66640-8, 18304-8, 25147-2, 5195-3 #### [facility] CLIA [id number] [address] [place] [address] [place] eGFRcr SerPlBld CKD-EPI 2020 101 mL/min/1.73m??? Normal >=60 Comment on above: Order Comment: Speci men Type: BLOOD SPECIMEN [facility]ing Facility: [facility] Address: [address] [place] [address] Result Comment: Daisha mated Glomerular Filtration Rate (eGFR) is calculated using the 2020 CKD-EPI creatinine equation. This equation utilizes serum creatinine, sex, and age as parameters. The creatinine assay has traceable calibration to isotope dilution-mass spectrometry. Refer to KDIGO guidelines for clinical interpretation. In patients with unstable renal function, e.g. those with acute kidney injury, the eGFR may not accurately reflect actual GFR. Performed By: #### 1 1572-5, 73326-0, 79819-9, 32015-1, 5-3 #### [facility] CLIA [id number] [address] [place], [place] [address] [place] Glucose [Mass/Vol] 111 mg/dL High 70-100 Comment on above: Order Comment: Speci men Type: BLOOD SPECIMEN [facility]ing Facility: [facility] Address: [address] [place] [address] Result Comment: The [place] Diabetes [employer] (ADA) provides guidance for cutoff values for fasting glucose and random glucose. The ADA defines fasting as no caloric intake for at least 8 hours. Fasting plasma glucose results between 100 to 125 mg/dL indicate increased risk for diabetes (prediabetes). Fasting plasma glucose results greater than or equal to 126 mg/dL meet the criteria for diagnosis of diabetes. In the absence of unequivocal hyperglycemia, results should be confirmed by repeat testing. In a patient with classic symptoms of hyperglycemia or hyperglycemic crisis, random plasma glucose results greater than or equal to 200 mg/dL meet the criteria for diagnosis of diabetes. Reference: Standards of Medical Care in Diabetes 2016, [place] [employer]. Diabetes Care. 2016.39(Suppl 1). Results may be falsely elevated after the administration of Sulfapyridine. Results may be falsely depressed after the administration of Sulfasalazine. Performed By: #### 1 1572-5, 06614-9, 39460-2, 92350-4, 5195-3 #### [facility] CLIA [id number] [address] [place], [place] [address] [place] Potassium [Moles/Vol] 4.6 mmol/L Normal 3.5-5.1 Comment on above: Order Comment: Speci men Type: BLOOD SPECIMEN [facility]ing Facility: [facility] Address: [address] [place] [address] Performed By: #### 1 1572-5, 55270-7, 42664-0, 50823-3, 5-3 #### [facility] CLIA [id number] [address] [place], [place] [address] [place] Sodium [Moles/Vol] 135 mmol/L Low 136-145 Comment on above: Order Comment: Speci men Type: BLOOD SPECIMEN [facility]ing Facility: [facility] Address: [address] [place] [address] Performed By: #### 1 1572-5, 95798-5, 98082-6, 91024-8, 5-3 #### [facility] CLIA [id number] [address] [place] [address] [place] Urea nitrogen [Mass/Vol] 21 mg/dL Normal - Comment on above: Order Comment: Speci men Type: BLOOD SPECIMEN [facility]ing Facility: [facility] Address: [address] [place] [address] Performed By: #### 1 1572-5, 15021-1, 24166-9, 97412-6, 5-3 #### [facility] CLIA [id number] [address] [place] [address] [place] CBC W Auto Differential pane l (Bld)on 12-21-2024 Basophils (Bld) [#/Vol] 10*3/uL Normal <0.11 Comment on above: Order Comment: Speci men Type: BLOOD SPECIMEN [facility]ing Facility: [facility] Address: [address] [place] [address] Performed By: #### 1 1572-5, 48392-9, 89899-8, 42455-3, 5194-3 #### [facility] CLIA [id number] [address] [place] [address] [place] Basophils/100 WBC (Bld) 0.4 % Normal Comment on above: Order Comment: Speci men Type: BLOOD SPECIMEN [facility]ing Facility: [facility] Address: [address] [place] [address] Performed By: #### 1 1572-5, 15365-5, 03005-1, 70065-4, 5-3 #### [facility] CLIA [id number] [address] [place] [address] [place] Differential cell count method Nom (Bld) Auto Normal Comment on above: Order Comment: Speci men Type: BLOOD SPECIMEN [facility]ing Facility: [facility] Address: [address] [place] [address] Performed By: #### 1 1572-5, 85228-4, 61379-6, 62622-4, 5-3 #### [facility] CLIA [id number] [address] [place], [place] [address] [place] Eosinophils (Bld) [#/Vol] 0.03 10*3/uL Normal <0.46 Comment on above: Order Comment: Speci men Type: BLOOD SPECIMEN [facility]ing Facility: [facility] Address: [address] [place] [address] Performed By: #### 1 1572-5, 99076-9, 21315-5, 12661-3, 5-3 #### [facility] CLIA [id number] [address] [place] [address] [place] Eosinophils/100 WBC (Bld) 0.6 % Normal Comment on above: Order Comment: Speci men Type: BLOOD SPECIMEN [facility]ing Facility: [facility] Address: [address] [place] [address] Performed By: #### 1 1572-5, 04923-8, 50109-9, 58302-8, 5-3 #### [facility] CLIA [id number] [address] [place], [place] [address] [place] Erythrocyte distribution width (RBC) [Ratio] 15.7 % High 11.5-15.0 Comment on above: Order Comment: Speci men Type: BLOOD SPECIMEN [facility]ing Facility: [facility] Address: [address] [place] [address] Performed By: #### 1 1572-5, 78453-2, 50125-7, 44053-1, 5195-3 #### [facility] CLIA [id number] [address] [place], [place] [address] [place] Hematocrit (Bld) [Volume fraction] 32.4 % Low 36.0-46.0 Comment on above: Order Comment: Speci men Type: BLOOD SPECIMEN [facility]ing Facility: [facility] Address: [address] [place] [address] Performed By: #### 1 1572-5, 62709-1, 78281-8, 53055-2, 5195-3 #### [facility] CLIA [id number] [address] [place], [place] [address] [place] Hemoglobin (Bld) [Mass/Vol] 10.4 g/dL Low 11.5-15.5 Comment on above: Order Comment: Speci men Type: BLOOD SPECIMEN [facility]ing Facility: [facility] Address: [address] [place] [address] Performed By: #### 1 1572-5, 83922-3, 95830-7, 59830-5, 5-3 #### [facility] CLIA [id number] [address] [place] [address] [place] Immature granulocytes (Bld) [#/Vol] 10*3/uL Normal <0.10 Comment on above: Order Comment: Speci men Type: BLOOD SPECIMEN [facility]ing Facility: [facility] Address: [address] [place] [address] Performed By: #### 1 1572-5, 61302-4, 36026-8, 18938-2, 5-3 #### [facility] CLIA [id number] [address] [place], [place] [address] [place] Immature granulocytes/100 WBC (Bld) 0.4 % Normal Comment on above: Order Comment: Speci men Type: BLOOD SPECIMEN [facility]ing Facility: [facility] Address: [address] [place] [address] Performed By: #### 1 1572-5, 75582-4, 77757-7, 13125-0, 5195-3 #### [facility] CLIA [id number] [address] [place], [place] [address] [place] Lymphocytes (Bld) [#/Vol] 1.19 10*3/uL Normal 1.00-4.00 Comment on above: Order Comment: Speci men Type: BLOOD SPECIMEN [facility]ing Facility: [facility] Address: [address] [place] [address] Performed By: #### 1 1572-5, 98656-9, 38487-2, 96151-5, 5195-3 #### [facility] CLIA [id number] [address] [place] [address] [place] Lymphocytes/100 WBC (Bld) 25.0 % Normal Comment on above: Order Comment: Speci men Type: BLOOD SPECIMEN [facility]ing Facility: [facility] Address: [address] [place] [address] Performed By: #### 1 1572-5, 00639-6, 01489-6, 81681-5, 5-3 #### [facility] CLIA [id number] [address] [place] [address] [place] MCH (RBC) [Entitic mass] 27.8 pg Normal 26.0-34.0 Comment on above: Order Comment: Speci men Type: BLOOD SPECIMEN [facility]ing Facility: [facility] Address: [address] [place] [address] Performed By: #### 1 1572-5, 04867-7, 52919-5, 07012-4, 5-3 #### [facility] CLIA [id number] [address] [place], [place] [address] [place] MCHC (RBC) [Mass/Vol] 32.1 g/dL Normal 30.5-36.0 Comment on above: Order Comment: Speci men Type: BLOOD SPECIMEN [facility]ing Facility: [facility] Address: [address] [place] [address] Performed By: #### 1 1572-5, 04172-0, 94164-1, 44046-5, 5195-3 #### [facility] CLIA [id number] [address] [place] [address] [place] MCV (RBC) [Entitic vol] 86.6 fL Normal 80.0-100.0 Comment on above: Order Comment: Speci men Type: BLOOD SPECIMEN [facility]ing Facility: [facility] Address: [address] [place] [address] Performed By: #### 1 1572-5, 79890-8, 70034-7, 66589-9, 5195-3 #### [facility] CLIA [id number] [address] [place] [address] [place] Monocytes (Bld) [#/Vol] 0.46 10*3/uL Normal <0.87 Comment on above: Order Comment: Speci men Type: BLOOD SPECIMEN [facility]ing Facility: [facility] Address: [address] [place] [address] Performed By: #### 1 1572-5, 76909-4, 23206-1, 65955-8, 5-3 #### [facility] CLIA [id number] [address] [place] [address] [place] Monocytes/100 WBC (Bld) 9.7 % Normal Comment on above: Order Comment: Speci men Type: BLOOD SPECIMEN [facility]ing Facility: [facility] Address: [address] [place] [address] Performed By: #### 1 1572-5, 87924-9, 78757-9, 53755-8, 5195-3 #### [facility] CLIA [id number] [address] [place] [address] [place] Neutrophils (Bld) [#/Vol] 3.04 10*3/uL Normal 1.45-7.50 Comment on above: Order Comment: Speci men Type: BLOOD SPECIMEN [facility]ing Facility: [facility] Address: [address] [place] [address] Performed By: #### 1 1572-5, 65522-4, 14332-6, 56840-7, 5195-3 #### [facility] CLIA [id number] [address] [place], [place] [address] [place] Neutrophils/100 WBC (Bld) 63.9 % Normal Comment on above: Order Comment: Speci men Type: BLOOD SPECIMEN [facility]ing Facility: [facility] Address: [address] [place] [address] Performed By: #### 1 1572-5, 97852-7, 90684-8, 13873-8, 5195-3 #### [facility] CLIA [id number] [address] [place] [address] [place] Nucleated RBC (Bld) [#/Vol] 10*3/uL Normal <0.01 Comment on above: Order Comment: Speci men Type: BLOOD SPECIMEN [facility]ing Facility: [facility] Address: [address] [place] [address] Performed By: #### 1 1572-5, 04572-5, 99630-8, 69209-6, 5195-3 #### [facility] CLIA [id number] [address] [place] [address] [facility] [place] Nucleated RBC/100 WBC (Bld) [Ratio] 0.0 /100 WBC Normal Comment on above: Order Comment: Speci men Type: BLOOD SPECIMEN [facility]ing Facility: [facility] Address: [address] [place] [address] Performed By: #### 1 1572-5, 38755-0, 66593-5, 43849-3, 5-3 #### [facility] CLIA [id number] [address] [place] [address] [place] Platelet mean volume (Bld) [Entitic vol] 9.4 fL Normal 9.0-12.7 Comment on above: Order Comment: Speci men Type: BLOOD SPECIMEN [facility]ing Facility: [facility] Address: [address] [place] [address] Performed By: #### 1 1572-5, 32442-2, 96028-3, 77515-9, 5195-3 #### [facility] CLIA [id number] [address] [place] [address] [facility] [place] Platelets (Bld) [#/Vol] 294 10*3/uL Normal 150-400 Comment on above: Order Comment: Speci men Type: BLOOD SPECIMEN [facility]ing Facility: [facility] Address: [address] [place] [address] Performed By: #### 1 1572-5, 18463-1, 30317-5, 48597-8, 5195-3 #### [facility] CLIA [id number] [address] [place] [address] [place] RBC (Bld) [#/Vol] 3.74 10*6/uL Low 3.90-5.20 Comment on above: Order Comment: Speci men Type: BLOOD SPECIMEN [facility]ing Facility: [facility] Address: [address] [place] [address] Performed By: #### 1 1572-5, 82450-1, 98991-0, 48089-4, 5195-3 #### [facility] CLIA [id number] [address] [place] [address] [place] WBC (Bld) [#/Vol] 4.76 10*3/uL Normal 3.70-11.00 Comment on above: Order Comment: Speci men Type: BLOOD SPECIMEN [facility]ing Facility: [facility] Address: [address] [place] [address] Performed By: #### 1 1572-5, 77311-8, 03204-6, 61466-6, 5195-3 #### [facility] CLIA [id number] [address] [place], [place] [address] [place] CNDSon 12-21-2024 CNDS HNO ID: [id number] Author: HECTOR BEGUM MD Service: Hospital Medicine Author Type: Physician Type: Discharge Summary Filed: 12/27/2024 20:30 Note Text: P DISCHARGE SUMMARY PATIENT NAME: Jesus Zepeda ADMISSION DATE: 12/16/2024 DISCHARGE DATE: 12/21/2024 Attending Physician: Hector Begum MD Code Status: Full Code Highest Readmission Risk Score: 19 The 30 day readmissions risk score is derived from an internally validated risk model which evaluates patient level characteristics, utilization history, medication orders and lab results up until the day of discharge. Patients with a score of 39 or above are considered highest risk for readmission. Specific patient level drivers will be listed at the bottom of the summary. Reason for Hospitalization: Principal Problem: Acute hypoxic respiratory failure (HCC) (POA: Yes) Active Problems: Type 2 diabetes mellitus with diabetic neuropathy, with long-term current use of insulin (HCC) (POA: Yes) Essential hypertension, benign (POA: Yes) HLD (hyperlipidemia) (POA: Yes) Lymphedema (POA: Yes) Neuropathy (POA: Yes) Chronic diastolic congestive heart failure (HCC) (POA: Yes) Obstructive lung disease (generalized) (HCC) (POA: Yes) History of pulmonary embolism (POA: Yes) Hypersensitivity pneumonitis (HCC) (POA: Unknown) Interstitial lung disease (HCC) (POA: Unknown) History of asthma (POA: Unknown) Acute on chronic hypoxic respiratory failure (HCC) (POA: Unknown) Resolved Problems: * No resolved hospital problems. * Operations During Hospitalization: None Procedures During Hospitalization: EKG Hospital Course: 59-year-old female with a past medical history of type 2 diabetes, HTN, HLD, lymphedema, neuropathy lower extremity, chronic diastolic heart failure, obstructive lung disease, history of PE, presenting to the ED due to referral from [facility] on 12/16/2024 on the account of hypoxia. Reported the patient obtain an echocardiogram on 30 November which showed intermediate diastolic function. Her D-dimer was elevated with concern for PE CTPA done which was negative patient found to be saturating 75% room air placed on 4 L. She was subsequently transferred for rule out interstitial/noninfectious lung disease. Does report having pets at home 2 dogs and 4 bird. ED: Patient presented blood pressure 159/90mmhg, heart rate 69, respiratory 20 saturating at 91% on 4 L, expanded respiratory panel negative, ESR 59, IgG 4558, IgA: 296, IgM 93 hepatitis panel negative, kappa lambda chains: Free M1 65.2, lambda free serum: 102, p-ANCA positive, proteinase 3 antibody: 1.0, BLANCA+, CT chest: Negative for PE, dilated main pulmonary artery possibly significant pulmonary hypertension. Multichamber borderline to mild cardiomegaly, diffuse bilateral patchy mixed morphology lung hydration abnormality, differential diagnosis severe sepsis pneumonia other noninfectious noninflammatory disorder including lung toxicity and hypersensitivity reaction. Patient was subsequentlyworked up and treated for acute on chronic hypoxic respiratory failure secondary to hypersensitivity pneumonitis. List of medical problems addressed below. Acute on chronic hypoxic respiratory failure Hypersensitivity pneumonitis? + Hypoxia and dyspnea on exertion Will cont Supplemental O2>>Patient on 5L O2. Will wean as tolerated. Expanded respiratory panel in process COVID-19, influenza A/B and RSV negative + Positive urine Legionella Procalcitonin: 0.08 VBG on presentation: 7.39/pCO2: 41 bicarb: 25 BNP: 169 Pulmonary evaluated patient being worked up for hypersensitive pneumonitis Will follow-up ILD serologies, ESR CRP, HIV and hepatitis panel Ig HP panel, bird fanciers panel, BLANCA (was 1:160, speckled pattern, in 2020), ANCA are ordered/pending Pulmonary recommending bronchoscopy with BAL on Thursday to rule out infectious disease however patient would like to leave before then this can be completed outpatient Will require repeat echo outpatient Completed ceftriaxone 5 days Completed 3 days of azithromycin 500 mg PO daily Given Tessalon Perle 100 mg p.o. 3 times daily Given guaifenesin 1200 mg p.o. every 12 hours Was started on prednisone 30 mg PO daily Patient to follow-up with Dr. Montoya in 2 to 4 weeks post discharge Not medically optimized 6-minute walk test completed patient requiring 6 L of ambulation will hold discharge for an additional day or 2 Plan: Patient to follow up outpatient with pulmonary for ILD Dr. Montoya who will facilitate outpatient Bronchoscopy if warranted resume home ICS/LABA at discharge Continue prednisone 30 mg p.o. daily until follow-up with Dr. Montoya Started on Bactrim DS MWF for PJP prophylaxis Patient will need serum potassium monitoring while on Bactrim + ARB Sent home on 4 L oxygen on exertion Chronic comorbid: Home meds be reconciled as per HLD Diabetes type 2 Hypothyroidism (more content not included)... Normal CONSULT PROGohenry 12-21-2024 CONSULT PROG HNO ID: [id number] Author: JEF STARR APRN.[employer] Service: Pulmonary Disease Author Type: Nurse Practitioner Type: Consult Progress Note Filed: 12/21/2024 11:28 Note Text: PULMONARY PROGRESS NOTE SERVICE DATE: 12/21/2024 SERVICE TIME: 11:15 AM INTERVAL HPI: Sitting in chair without distress. Stable overnight and reports that she is feeling better everyday and denies any new complaints. Has been on 2L [place]. She is very eager to go home today PAST MEDICAL HISTORY Diagnosis Date Abnormal Pap smear of cervix 09/2020 lgsil/+HPV 11/14 colp benign 08/18 ascus/+HPV 09/17 colp LGSIL Adjustment disorder with depressed mood Asthma (HCC) Chronic hypoxemic respiratory failure (HCC) COPD (chronic obstructive pulmonary disease) (HCC) Esophageal reflux Essential hypertension, benign Generalized anxiety disorder GI bleed History of transfusion HLD (hyperlipidemia) Hx of blood transfusion reaction Hypertension Kidney stones Menorrhagia Migraine without aura Morbid obesity (HCC) Nonspecific abnormal results of other endocrine function study 06/2004 Benign biopsy. Abnormally high thyroid globulin HARMONY (obstructive sleep apnea) Pulmonary emboli (HCC) 09/2013 Bilateral on CTA chest. Scleritis Type II or unspecified type diabetes mellitus without mention of complication, not stated as uncontrolled Uterine prolapse Prescriptions Prior to Admission[1] Current Facility-Administered Medications Medication Dose Route Frequency NaCl 0.9% iv flush bag 20 mL INTRAVENOUS PRN ondansetron 4 mg tab(s) (ZOFRAN) 4 mg ORAL q 6 H PRN Or ondansetron (PF) 4 mg injection (ZOFRAN) 4 mg INTRAVENOUS q 6 H PRN melatonin 3 mg tab(s) 3 mg ORAL DAILY (8 PM) acetaminophen 650 mg tab(s) (TYLENOL) 650 mg ORAL q 6 H PRN guaiFENesin 1,200 mg ER tab(s) (MUCINEX) 1,200 mg ORAL q 12 H ipratropium-albuterol 3 mL nebulizer solution (DUONEB) 3 mL INHALATION q 6 H PRN acetylcysteine 200 mg/mL (20 %) 400 mg (MUCOMYST) 400 mg INHALATION q 4 H PRN heparin 5,000 Units injection 5,000 Units SUBCUTANEOUS q 12 H ammonium lactate 12 % (LAC-HYDRIN) TOPICAL PRN diphenhydrAMINE-Zinc Acetate 2-0.1 % topical cream (BENADRYL) TOPICAL TID PRN atorvastatin 20 mg tab(s) (LIPITOR) 20 mg ORAL AT BEDTIME carvedilol 12.5 mg tab(s) (COREG) 12.5 mg ORAL BID w MEALS valsartan 160 mg tab(s) (DIOVAN) 160 mg ORAL DAILY magnesium oxide 400 mg tab(s) (MAG-OX) 400 mg ORAL DAILY sucralfate 1 g tab(s) (CARAFATE) 1 g ORAL BID AC levothyroxine 200 mcg tab(s) (SYNTHROID) 200 mcg ORAL DAILY (6 AM) dextrose 40 % 15 g 15 g ORAL PRN Or glucagon 1 mg injection 1 mg INTRAMUSCULAR PRN Or dextrose 10% iv bolus 12.5 g INTRAVENOUS PRN insulin lispro injection (rapid acting) (ADMElog) SUBCUTANEOUS w MEALS insulin lispro injection (rapid acting) (ADMElog) SUBCUTANEOUS AT BEDTIME benzonatate 100 mg cap(s) (TESSALON PERLE) 100 mg ORAL TID ipratropium-albuterol 3 mL nebulizer solution (DUONEB) 3 mL INHALATION QID budesonide 0.5 mg/2 mL 0.5 mg (PULMICORT) 0.5 mg INHALATION BID azithromycin 500 mg tab(s) (ZITHROMAX) 500 mg ORAL DAILY predniSONE (DELTASONE) tab(s) 30 mg 30 mg ORAL DAILY cefTRIAXone 2 g in D5W 100 mL Vial-Bag (ROCEPHIN) 2 g INTRAVENOUS q 24 H sulfamethoxazole-trimethop rim 800-160 mg 1 tablet (BACTRIM DS) 1 tablet ORAL -WE-FR Allergies As of Date: 12/16/2024 Allergen Noted Reaction LATEX 11/26/2006 Itching PRINIVIL [LISINOPRIL] 07/23/2015 Cough ZANAFLEX [TIZANIDINE HCL] 06/05/2016 Shortness of Breath Fully Assessed 12/16/2024 Objective PHYSICAL EXAM: General: Awake AND alert, no distress, speaking in full sentences HEENT: NCAT, MMM Neck: Supple, no rigidity. Trachea is midline Heart: HR regular, S1/S2 Lungs: Non-labored breathing. Clear breath sounds bilaterally Abdomen: Soft, non-tender Extremities: (+) BLE edema Skin: Warm, dry Neurological: Moves all extremities x4. Grossly normal cognition and motor function VITAL SIGNS: BP 155/80 Pulse 61 Temp (Src) 97.6 (Oral) Resp 20 Ht 5' 5 (1.65m) Wt 214 lb 1.1 oz (97.1kg) SpO2 95% LMP 03/21/2005 BMI 35.62 kg/(m2). O2 Therapy: Nasal Cannula, Liters (Numeric Only): 2.2 DATA: Diagnostic tests reviewed for today's visit: CBC: Recent Labs 12/21/24 0525 WBC 4.76 RBC 3.74* HB 10.4* HCT 32.4* PLT 294 MCV 86.6 MCH 27.8 MPV 9.4 BMP: Recent Labs 12/21/24 0525 NA 135* K 4.6 CHLOR 103 CO2 22 BUN 21 CREAT 0.68 GLUC 111* ABG's: No results for input(s): PH, PCO2, PO2, BE, HCO3, CO2CT, O2HB, COHB, MHGB, TEMP, PHTC, PCO2T, PO2T, O2AD in the last 24 hours. Laboratory and Imaging: Last Spirometry SPIROMETRY WITH DILATOR IF OBSTRUCTED Collected: 06/20/2022 8:15 AM (Final result) Narrative: [facility] [address], [place] [address] Test Date: 2022-06-20 Pat Name: JESUS ZEPEDA Department: Room: Gender: Female Robbin (more content not included)... [facility] Magnesium [Mass/Vol] 1.9 mg/dL Normal 1.6-2.6 Comment on above: Order Comment: Zena kang Type: BLOOD SPECIMEN Ordering Facility: [facility] Address: [address] [place] [address] Performed By: #### 1 1572-5, 10518-5, 27986-7, 58048-9, 5195-3 #### [facility] CLIA [id number] [address] [place] [address] [place] Phosphate SerPl-mCncon 12-21 Phosphate [Mass/Vol] 2.8 mg/dL Normal 2.5-4.9 Comment on above: Order Comment: Zena kang Type: BLOOD SPECIMEN Ordering Facility: [facility] Address: [address] [place] [address] Result Comment: Elev ated m-protein (paraprotein) levels in the serum may be exhibited in patients with monoclonal gammopathies, causing falsely elevated inorganic phosphorus results. Performed By: #### 1 1572-5, 83481-0, 56696-8, 65647-0, 5195-3 #### [facility] CLIA [id number] [facility] [place] [address] [place] XR CHEST 1V FRONTALon 2024 XR CHEST 1V FRONTAL * * *Final Report* * * DATE OF EXAM: Dec 21 2024 9:37AM RHX [id number] - XR CHEST 1V FRONTAL / PROCEDURE REASON: Hypoxemia * * * * Physician Interpretation * * * * EXAMINATION: CHEST RADIOGRAPH (SINGLE VIEW AP OR PA) CLINICAL HISTORY: Hypoxemia MQ: XC1_5 Comparison: 03/15/2022 RESULT: Lines, tubes, and devices: There are ECG leads. Lungs and pleura: There are bilateral infiltrates/edema, greater on the right. There is a limited depth of inspiration. There are no effusions. There is no pneumothorax. Cardiomediastinal silhouette: The cardiac silhouette is prominent. Other: There are no acute osseous abnormalities. IMPRESSION: Bilateral infiltrates/edema, greater on the right. [employer]: PSCB Transcribe Date/Time: Dec 21 2024 9:44A Dictated by : BARAK COLEMAN MD This examination was interpreted and the report reviewed and electronically signed by: BARAK COLEMAN MD on Dec 21 2024 9:45AM EST [id number] Normal Basic metabolic 2000 panelon 12-20-2024 Anion gap [Moles/Vol] 8 mmol/L Normal 5-16 Comment on above: Order Comment: Speci men Type: BLOOD SPECIMEN Ordering Facility: [facility] Address: [facility] [place] [address] Performed By: #### 1 1572-5, 38977-8, 47565-1, 69292-0, 5195-3 #### [facility] CLIA [id number] [facility] [place] [address] [place] Calcium [Mass/Vol] 8.9 mg/dL Normal 8.5-10.5 Comment on above: Order Comment: Speci men Type: BLOOD SPECIMEN Ordering Facility: [facility] Address: [facility] [place] [id number] Performed By: #### 1 1572-5, 32097-1, 93028-9, 93670-3, 5-3 #### [facility] CLIA [id number] [address] [place], [place] [address] [place] Chloride [Moles/Vol] 102 mmol/L Normal 98-107 Comment on above: Order Comment: Speci men Type: BLOOD SPECIMEN Ordering Facility: [facility] Address: [address] [place] [address] [place] [address] Performed By: #### 1 1572-5, 05041-5, 42559-0, 76776-0, 5-3 #### [facility] CLIA [id number] [address] [place] [address] [place] CO2 [Moles/Vol] 22 mmol/L Normal 21-32 Comment on above: Order Comment: Speci men Type: BLOOD SPECIMEN Ordering Facility: [facility] Address: [facility] [place] [address] Performed By: #### 1 1572-5, 26798-1, 85891-0, 85308-7, 5-3 #### [facility] CLIA [id number] [address] [place] [address] [place] Creatinine [Mass/Vol] 0.66 mg/dL Normal 0.51-0.95 Comment on above: Order Comment: Speci men Type: BLOOD SPECIMEN Ordering Facility: [facility] Address: [address] [place] [address] [place] [address] Result Comment: Bhavana ents receiving either N-Acetylcysteine (NAC) or Metamizole prior to venipuncture, may have falsely depressed results. Performed By: #### 1 1572-5, 53461-5, 60561-1, 05906-9, 5-3 #### [facility] CLIA [id number] [address] [place] [address] [place] eGFRcr SerPlBld CKD-EPI 2020 102 mL/min/1.73m??? Normal >=60 Comment on above: Order Comment: Zena kang Type: BLOOD SPECIMEN Ordering Facility: [facility] Address: [address] [place] [address] Result Comment: Daisha mated Glomerular Filtration Rate (eGFR) is calculated using the 2020 CKD-EPI creatinine equation. This equation utilizes serum creatinine, sex, and age as parameters. The creatinine assay has traceable calibration to isotope dilution-mass spectrometry. Refer to KDIGO guidelines for clinical interpretation. In patients with unstable renal function, e.g. those with acute kidney injury, the eGFR may not accurately reflect actual GFR. Performed By: #### 1 1572-5, 08935-1, 87152-0, 45838-3, 5195-3 #### [facility] CLIA [id number] [address] [place] [address] [place] Glucose [Mass/Vol] 116 mg/dL High 70-100 Comment on above: Order Comment: Zena kang Type: BLOOD SPECIMEN Ordering Facility: [facility] Address: [address] [place] [address] Result Comment: The [place] Diabetes [employer] (ADA) provides guidance for cutoff values for fasting glucose and random glucose. The ADA defines fasting as no caloric intake for at least 8 hours. Fasting plasma glucose results between 100 to 125 mg/dL indicate increased risk for diabetes (prediabetes). Fasting plasma glucose results greater than or equal to 126 mg/dL meet the criteria for diagnosis of diabetes. In the absence of unequivocal hyperglycemia, results should be confirmed by repeat testing. In a patient with classic symptoms of hyperglycemia or hyperglycemic crisis, random plasma glucose results greater than or equal to 200 mg/dL meet the criteria for diagnosis of diabetes. Reference: Standards of Medical Care in Diabetes 2016, [place] [employer]. Diabetes Care. 2016.39(Suppl 1). Results may be falsely elevated after the administration of Sulfapyridine. Results may be falsely depressed after the administration of Sulfasalazine. Performed By: #### 1 1572-5, 49111-3, 18084-0, 35285-0, 5-3 #### [facility] CLIA [id number] [address] [place] [address] [place] Potassium [Moles/Vol] 4.6 mmol/L Normal 3.5-5.1 Comment on above: Order Comment: Speci men Type: BLOOD SPECIMEN Ordering Facility: [facility] Address: [address] [place] [address] Performed By: #### 1 1572-5, 06584-1, 63651-3, 50663-5, 5-3 #### [facility] CLIA [id number] [address] [place], [place] [address] [place] Sodium [Moles/Vol] 132 mmol/L Low 136-145 Comment on above: Order Comment: Speci men Type: BLOOD SPECIMEN Ordering Facility: [facility] Address: [address] [place] [address] Performed By: #### 1 1572-5, 36040-5, 78025-2, 95789-9, 5194-3 #### [facility] CLIA [id number] [address] [place], [place] [address] [place] Urea nitrogen [Mass/Vol] 20 mg/dL Normal 7-26 Comment on above: Order Comment: Speci men Type: BLOOD SPECIMEN Ordering Facility: [facility] Address: [address] [place] [address] Performed By: #### 1 1572-5, 66746-2, 78523-8, 11763-4, 5-3 #### [facility] CLIA [id number] [facility] [place] [address] [place] C3 SerPl-mCncon 12-20-2024 Complement C3 [Mass/Vol] 141 mg/dL Normal 86-166 Comment on above: Order Comment: Speci men Type: BLOOD SPECIMEN Ordering Facility: [facility] Address: [address] [place] [address] Performed By: #### 1 1572-5, 19415-1, 59623-6, 09722-7, 5-3 #### [facility] CLIA [id number] [address] [place] [address] [place] C4 SerPl-mCncon 12-20-2024 Complement C4 [Mass/Vol] 19 mg/dL Normal 13-46 Comment on above: Order Comment: Speci men Type: BLOOD SPECIMEN Ordering Facility: [facility] Address: [address] [place] [address] Performed By: #### 1 1572-5, 17697-0, 01245-3, 92745-2, 5-3 #### [facility] CLIA [id number] [address] [place] [address] [place] CBC W Auto Differential pane l (Bld)on 12-20-2024 Basophils (Bld) [#/Vol] 0.03 10*3/uL Normal <0.11 Comment on above: Order Comment: Speci men Type: BLOOD SPECIMEN Ordering Facility: [facility] Address: [address] [place] [address] Performed By: #### 1 1572-5, 61163-2, 99644-8, 61656-1, 5194-3 #### [facility] CLIA [id number] [address] [place] [address] [place] Basophils/100 WBC (Bld) 0.6 % Normal Comment on above: Order Comment: Speci men Type: BLOOD SPECIMEN Ordering Facility: [facility] Address: [address] [place] [address] Performed By: #### 1 1572-5, 25233-7, 38354-0, 60090-9, 5-3 #### [facility] CLIA [id number] [address] [place] [address] STATES [place] [facility] Differential cell count method Nom (Bld) Auto Normal Comment on above: Order Comment: Speci men Type: BLOOD SPECIMEN Ordering Facility: [facility] Address: [address] [place] [address] Performed By: #### 1 1572-5, 57869-7, 66438-1, 25513-1, 5195-3 #### [facility] CLIA [id number] [address] [place], [place] [address] [place] Eosinophils (Bld) [#/Vol] 0.21 10*3/uL Normal <0.46 Comment on above: Order Comment: Speci men Type: BLOOD SPECIMEN Ordering Facility: [facility] Address: [address] [place] [address] Performed By: #### 1 1572-5, 31779-1, 89765-7, 88480-0, 5195-3 #### [facility] CLIA [id number] [address] [place] [address] [place] Eosinophils/100 WBC (Bld) 4.5 % Normal Comment on above: Order Comment: Speci men Type: BLOOD SPECIMEN Ordering Facility: [facility] Address: [address] [place] [address] Performed By: #### 1 1572-5, 09364-4, 42562-3, 91623-2, 5195-3 #### [facility] CLIA [id number] [address] [place] [address] [place] Erythrocyte distribution width (RBC) [Ratio] 16.0 % High 11.5-15.0 Comment on above: Order Comment: Speci men Type: BLOOD SPECIMEN Ordering Facility: [facility] Address: [address] [place] [address] Performed By: #### 1 1572-5, 89453-2, 01571-7, 51999-0, 5195-3 #### [facility] CLIA [id number] [address] [place] [address] [place] Hematocrit (Bld) [Volume fraction] 33.7 % Low 36.0-46.0 Comment on above: Order Comment: Speci men Type: BLOOD SPECIMEN Ordering Facility: [facility] Address: [address] [place] [address] Performed By: #### 1 1572-5, 21548-9, 72071-6, 20348-8, 5195-3 #### [facility] CLIA [id number] [address] [place], [place] [address] [place] Hemoglobin (Bld) [Mass/Vol] 10.6 g/dL Low 11.5-15.5 Comment on above: Order Comment: Speci men Type: BLOOD SPECIMEN Ordering Facility: [facility] Address: [address] [place] [address] Performed By: #### 1 1572-5, 83641-6, 80424-4, 51889-5, 5195-3 #### [facility] CLIA [id number] [address] [place] [address] [place] Immature granulocytes (Bld) [#/Vol] 10*3/uL Normal <0.10 Comment on above: Order Comment: Speci men Type: BLOOD SPECIMEN Ordering Facility: [facility] Address: [address] [place] [address] Performed By: #### 1 1572-5, 74040-4, 14638-8, 78294-8, 5195-3 #### [facility] CLIA [id number] [address] [place], [place] [address] [place] Immature granulocytes/100 WBC (Bld) 0.2 % Normal Comment on above: Order Comment: Speci men Type: BLOOD SPECIMEN Ordering Facility: [facility] Address: [address] [place] [address] Performed By: #### 1 1572-5, 18552-8, 04187-2, 78022-5, 5195-3 #### [facility] CLIA [id number] [address] [place] [address] [place] Lymphocytes (Bld) [#/Vol] 1.15 10*3/uL Normal 1.00-4.00 Comment on above: Order Comment: Speci men Type: BLOOD SPECIMEN Ordering Facility: [facility] Address: [address] [place], [place] [address] Performed By: #### 1 1572-5, 18136-4, 63504-6, 02816-7, 5195-3 #### [facility] CLIA [id number] [address] [place], [place] [address] [place] Lymphocytes/100 WBC (Bld) 24.7 % Normal Comment on above: Order Comment: Speci men Type: BLOOD SPECIMEN Ordering Facility: [facility] Address: [address] [place], [place] [address] Performed By: #### 1 1572-5, 41777-6, 89322-0, 11962-7, 5195-3 #### [facility] CLIA [id number] [address] [place] [address] [place] MCH (RBC) [Entitic mass] 27.0 pg Normal 26.0-34.0 Comment on above: Order Comment: Speci men Type: BLOOD SPECIMEN Ordering Facility: [facility] Address: [address] [place], [place] [address] Performed By: #### 1 1572-5, 78782-8, 87140-1, 73555-5, 5195-3 #### [facility] CLIA [id number] [address] [place] [address] [place] MCHC (RBC) [Mass/Vol] 31.5 g/dL Normal 30.5-36.0 Comment on above: Order Comment: Speci men Type: BLOOD SPECIMEN Ordering Facility: [facility] Address: [address] [place], [place] [address] Performed By: #### 1 1572-5, 69828-0, 04107-6, 17697-2, 5195-3 #### [facility] CLIA [id number] [address] [place] [address] [place] MCV (RBC) [Entitic vol] 86.0 fL Normal 80.0-100.0 Comment on above: Order Comment: Speci men Type: BLOOD SPECIMEN Ordering Facility: [facility] Address: [address] [place] [address] Performed By: #### 1 1572-5, 83751-1, 66705-8, 60408-0, 5195-3 #### [facility] CLIA [id number] [address] [place], [place] [address] [place] Monocytes (Bld) [#/Vol] 0.50 10*3/uL Normal <0.87 Comment on above: Order Comment: Speci men Type: BLOOD SPECIMEN Ordering Facility: [facility] Address: [address] [place], [place] [address] Performed By: #### 1 1572-5, 08671-3, 45362-5, 12184-2, 5195-3 #### [facility] CLIA [id number] [address] [place], [place] [address] [place] Monocytes/100 WBC (Bld) 10.8 % Normal Comment on above: Order Comment: Speci men Type: BLOOD SPECIMEN Ordering Facility: [facility] Address: [address] [place], [place] [address] Performed By: #### 1 1572-5, 63254-0, 51174-0, 41773-6, 5195-3 #### [facility] CLIA [id number] [address] [place], [place] [address] [place] Neutrophils (Bld) [#/Vol] 2.75 10*3/uL Normal 1.45-7.50 Comment on above: Order Comment: Speci men Type: BLOOD SPECIMEN Ordering Facility: [facility] Address: [address] [place], [place] [address] Performed By: #### 1 1572-5, 24775-6, 22506-6, 62794-5, 5195-3 #### [facility] CLIA [id number] [address] [place], [place] [address] [place] Neutrophils/100 WBC (Bld) 59.2 % Normal Comment on above: Order Comment: Speci men Type: BLOOD SPECIMEN Ordering Facility: [facility] Address: [address] [place] [address] Performed By: #### 1 1572-5, 75277-7, 93486-9, 94228-5, 5195-3 #### [facility] CLIA [id number] [address] [place], [place] [address] [place] Nucleated RBC (Bld) [#/Vol] 10*3/uL Normal <0.01 Comment on above: Order Comment: Speci men Type: BLOOD SPECIMEN Ordering Facility: [facility] Address: [address] [place], [place] [address] Performed By: #### 1 1572-5, 60567-8, 34408-8, 49886-3, 5195-3 #### [facility] CLIA [id number] [address] [place], [place] [address] [place] Nucleated RBC/100 WBC (Bld) [Ratio] 0.0 /100 WBC Normal Comment on above: Order Comment: Speci men Type: BLOOD SPECIMEN Ordering Facility: [facility] Address: [address] [place] [address] Performed By: #### 1 1572-5, 10544-1, 20215-4, 91947-5, 5195-3 #### [facility] CLIA [id number] [address] [place], [place] [address] [place] Platelet mean volume (Bld) [Entitic vol] 9.1 fL Normal 9.0-12.7 Comment on above: Order Comment: Speci men Type: BLOOD SPECIMEN Ordering Facility: [facility] Address: [address] [place], [place] [address] Performed By: #### 1 1572-5, 63256-2, 29413-9, 58087-3, 5195-3 #### [facility] CLIA [id number] [address] [place], [place] [address] [place] Platelets (Bld) [#/Vol] 269 10*3/uL Normal 150-400 Comment on above: Order Comment: Speci men Type: BLOOD SPECIMEN Ordering Facility: [facility] Address: [address] [place] [address] Performed By: #### 1 1572-5, 18056-3, 37214-4, 23983-7, 5195-3 #### [facility] CLIA [id number] [address] [place] [address] [place] RBC (Bld) [#/Vol] 3.92 10*6/uL Normal 3.90-5.20 Comment on above: Order Comment: Speci men Type: BLOOD SPECIMEN Ordering Facility: [facility] Address: [address] [place] [address] Performed By: #### 1 1572-5, 89212-5, 44505-9, 09440-2, 5195-3 #### [facility] CLIA [id number] [address] [place], [place] [address] [place] WBC (Bld) [#/Vol] 4.65 10*3/uL Normal 3.70-11.00 Comment on above: Order Comment: Zena kang Type: BLOOD SPECIMEN Ordering Facility: [facility] Address: [address] [place] [address] Performed By: #### 1 1572-5, 55459-0, 44844-7, 98786-2, 5195-3 #### [facility] CLIA [id number] [address] [place], [place] [address] [facility] CONSULT PROGon 12-20-2024 CONSULT PROG HNO ID: [id number] Author: JEF STARR APRN.CNP Service: Pulmonary Disease Author Type: Nurse Practitioner Type: Consult Progress Note Filed: 12/20/2024 12:19 Note Text: PULMONARY PROGRESS NOTE SERVICE DATE: 12/20/2024 SERVICE TIME: 11:27 AM INTERVAL HPI: Sitting in chair with no distress. Reports that she is feeling ok, breathing feels a little better and she denies any new respiratory complaints. She is very eager to return home as she is concerned about her dogs, although her family is caring for them while she is hospitalized. Ambulated patient in hallway with pulse oximeter and portable O2 for 5 minutes. SpO2 dropped progressively as O2 was increased and walk was aborted as patient desaturated to 86% on 4 lpm during ambulation. PAST MEDICAL HISTORY Diagnosis Date Abnormal Pap smear of cervix 09/2020 lgsil/+HPV 11/14 colp benign 08/18 ascus/+HPV 09/17 colp LGSIL Adjustment disorder with depressed mood Asthma (HCC) Chronic hypoxemic respiratory failure (HCC) COPD (chronic obstructive pulmonary disease) (HCC) Esophageal reflux Essential hypertension, benign Generalized anxiety disorder GI bleed History of transfusion HLD (hyperlipidemia) Hx of blood transfusion reaction Hypertension Kidney stones Menorrhagia Migraine without aura Morbid obesity (HCC) Nonspecific abnormal results of other endocrine function study 06/2004 Benign biopsy. Abnormally high thyroid globulin HARMONY (obstructive sleep apnea) Pulmonary emboli (HCC) 09/2013 Bilateral on CTA chest. Scleritis Type II or unspecified type diabetes mellitus without mention of complication, not stated as uncontrolled Uterine prolapse Prescriptions Prior to Admission[1] Current Facility-Administered Medications Medication Dose Route Frequency NaCl 0.9% iv flush bag 20 mL INTRAVENOUS PRN ondansetron 4 mg tab(s) (ZOFRAN) 4 mg ORAL q 6 H PRN Or ondansetron (PF) 4 mg injection (ZOFRAN) 4 mg INTRAVENOUS q 6 H PRN melatonin 3 mg tab(s) 3 mg ORAL DAILY (8 PM) acetaminophen 650 mg tab(s) (TYLENOL) 650 mg ORAL q 6 H PRN guaiFENesin 1,200 mg ER tab(s) (MUCINEX) 1,200 mg ORAL q 12 H ipratropium-albuterol 3 mL nebulizer solution (DUONEB) 3 mL INHALATION q 6 H PRN acetylcysteine 200 mg/mL (20 %) 400 mg (MUCOMYST) 400 mg INHALATION q 4 H PRN heparin 5,000 Units injection 5,000 Units SUBCUTANEOUS q 12 H ammonium lactate 12 % (LAC-HYDRIN) TOPICAL PRN diphenhydrAMINE-Zinc Acetate 2-0.1 % topical cream (BENADRYL) TOPICAL TID PRN atorvastatin 20 mg tab(s) (LIPITOR) 20 mg ORAL AT BEDTIME carvedilol 12.5 mg tab(s) (COREG) 12.5 mg ORAL BID w MEALS valsartan 160 mg tab(s) (DIOVAN) 160 mg ORAL DAILY magnesium oxide 400 mg tab(s) (MAG-OX) 400 mg ORAL DAILY sucralfate 1 g tab(s) (CARAFATE) 1 g ORAL BID AC levothyroxine 200 mcg tab(s) (SYNTHROID) 200 mcg ORAL DAILY (6 AM) dextrose 40 % 15 g 15 g ORAL PRN Or glucagon 1 mg injection 1 mg INTRAMUSCULAR PRN Or dextrose 10% iv bolus 12.5 g INTRAVENOUS PRN insulin lispro injection (rapid acting) (ADMElog) SUBCUTANEOUS w MEALS insulin lispro injection (rapid acting) (ADMElog) SUBCUTANEOUS AT BEDTIME benzonatate 100 mg cap(s) (TESSALON PERLE) 100 mg ORAL TID cefTRIAXone 2 g in D5W 100 mL Vial-Bag (ROCEPHIN) 2 g INTRAVENOUS q 24 H ipratropium-albuterol 3 mL nebulizer solution (DUONEB) 3 mL INHALATION QID budesonide 0.5 mg/2 mL 0.5 mg (PULMICORT) 0.5 mg INHALATION BID azithromycin 500 mg tab(s) (ZITHROMAX) 500 mg ORAL DAILY Allergies As of Date: 12/16/2024 Allergen Noted Reaction LATEX 11/26/2006 Itching PRINIVIL [LISINOPRIL] 07/23/2015 Cough ZANAFLEX [TIZANIDINE HCL] 06/05/2016 Shortness of Breath Fully Assessed 12/16/2024 Objective PHYSICAL EXAM: General: Awake AND alert, no distress, speaking in full sentences HEENT: NCAT, MMM Neck: Supple, no rigidity. Trachea is midline Heart: HR regular, S1/S2 Lungs: Non-labored breathing. Clear breath sounds bilaterally Abdomen: Soft, non-tender Extremities: (+) BLE edema Skin: Warm, dry Neurological: Moves all extremities x4. Grossly normal cognition and motor function VITAL SIGNS: BP 149/83 Pulse 63 Temp (Src) 97.6 (Oral) Resp 18 Ht 5' 5 (1.65m) Wt 214 lb 1.1 oz (97.1kg) SpO2 95% LMP 03/21/2005 BMI 35.62 kg/(m2). O2 Therapy: Nasal Cannula, Liters (Numeric Only): 2 DATA: Diagnostic tests reviewed for today's visit: CBC: Recent Labs 12/20/24 0459 WBC 4.65 RBC 3.92 HB 10.6* HCT 33.7* PLT 269 MCV 86.0 MCH 27.0 MPV 9.1 BMP: Recent Labs 12/20/24 0459 NA 132* K 4.6 CHLOR 102 CO2 22 BUN 20 CREAT 0.66 GLUC 116* ABG's: No results for input(s): PH, PCO2, PO2, BE, HCO3, CO2CT, O2HB, COHB, MHGB, TEMP, PHTC, PCO2T, PO2T, O2AD in the last 24 hours. Laboratory and Imaging: Last Spirometry SPIROMETRY WITH DILATOR IF OBSTRUCTED Collected: 06/20/2022 8:15 AM (Final result) Narrative: [facility] (more content not included)... Normal IgE SerPl-aCncon 12-20-2024 IgE Qn 6.1 kU/l Normal <114.0 Comment on above: Order Comment: Speci men Type: BLOOD SPECIMEN Ordering Facility: [facility] Address: [address] [place] [address] Performed By: #### 1 1572-5, 19574-2, 11659-6, 71164-5, 5195-3 #### [facility] CLIA [id number] [address] [place] [address] [place] Magnesium SerPl-mCncon 12-20 Magnesium [Mass/Vol] 2.0 mg/dL Normal 1.6-2.6 Comment on above: Order Comment: Speci men Type: BLOOD SPECIMEN Ordering Facility: [facility] Address: [address] [place] [address] Performed By: #### 1 1572-5, 77541-2, 05695-3, 11384-9, 5195-3 #### [facility] CLIA [id number] [address] [place] [address] [place] Phosphate SerPl-mCncon 12-20 Phosphate [Mass/Vol] 3.7 mg/dL Normal 2.5-4.9 Comment on above: Order Comment: Speci men Type: BLOOD SPECIMEN Ordering Facility: [facility] Address: [address] [place] [address] Result Comment: Elev ated m-protein (paraprotein) levels in the serum may be exhibited in patients with monoclonal gammopathies, causing falsely elevated inorganic phosphorus results. Performed By: #### 1 1572-5, 80542-2, 95803-0, 01019-1, 5195-3 #### [facility] CLIA [id number] [address] [place], [place] [id number] [place] Basic metabolic 2000 panelon 12-19-2024 Anion gap [Moles/Vol] 8 mmol/L Normal 5-16 Comment on above: Order Comment: Speci men Type: BLOOD SPECIMEN Ordering Facility: [facility] Address: [address] [place] [address] Performed By: #### 4 537-7 #### [facility] CLIA [id number] [address] [place] [address] [place] Calcium [Mass/Vol] 8.9 mg/dL Normal 8.5-10.5 Comment on above: Order Comment: Speci men Type: BLOOD SPECIMEN Ordering Facility: [facility] Address: [address] [place] [address] Performed By: #### 4 537-7 #### [facility] CLIA [id number] [address] [place] [address] [place] Chloride [Moles/Vol] 101 mmol/L Normal 98-107 Comment on above: Order Comment: Speci men Type: BLOOD SPECIMEN Ordering Facility: [facility] Address: [address] [place] [address] Performed By: #### 4 537-7 #### [facility] CLIA [id number] [address] [place] [address] [place] CO2 [Moles/Vol] 24 mmol/L Normal 21-32 Comment on above: Order Comment: Speci men Type: BLOOD SPECIMEN Ordering Facility: [facility] Address: [facility] [place] [address] Performed By: #### 4 537-7 #### [facility] CLIA [id number] [address] [place] [address] [place] Creatinine [Mass/Vol] 0.72 mg/dL Normal 0.51-0.95 Comment on above: Order Comment: Zena kang Type: BLOOD SPECIMEN Ordering Facility: [facility] Address: [address] [place] [address] Result Comment: Bhavana ents receiving either N-Acetylcysteine (NAC) or Metamizole prior to venipuncture, may have falsely depressed results. Performed By: #### 4 537-7 #### [facility] CLIA [id number] [address] [place] [address] [place] eGFRcr SerPlBld CKD-EPI 2020 97 mL/min/1.73m??? Normal >=60 Comment on above: Order Comment: Zena kang Type: BLOOD SPECIMEN Ordering Facility: [facility] Address: [address] [place] [address] Result Comment: Daisha mated Glomerular Filtration Rate (eGFR) is calculated using the 2020 CKD-EPI creatinine equation. This equation utilizes serum creatinine, sex, and age as parameters. The creatinine assay has traceable calibration to isotope dilution-mass spectrometry. Refer to KDIGO guidelines for clinical interpretation. In patients with unstable renal function, e.g. those with acute kidney injury, the eGFR may not accurately reflect actual GFR. Performed By: #### 4 537-7 #### [facility] CLIA [id number] [address] [place] [address] [place] Glucose [Mass/Vol] 97 mg/dL Normal 70-100 Comment on above: Order Comment: Zena kang Type: BLOOD SPECIMEN Ordering Facility: [facility] Address: [address] [place] [address] Result Comment: The [place] [employer] (ADA) provides guidance for cutoff values for fasting glucose and random glucose. The ADA defines fasting as no caloric intake for at least 8 hours. Fasting plasma glucose results between 100 to 125 mg/dL indicate increased risk for diabetes (prediabetes). Fasting plasma glucose results greater than or equal to 126 mg/dL meet the criteria for diagnosis of diabetes. In the absence of unequivocal hyperglycemia, results should be confirmed by repeat testing. In a patient with classic symptoms of hyperglycemia or hyperglycemic crisis, random plasma glucose results greater than or equal to 200 mg/dL meet the criteria for diagnosis of diabetes. Reference: Standards of Medical Care in Diabetes 2016, [place] [employer]. Diabetes Care. 2016.39(Suppl 1). Results may be falsely elevated after the administration of Sulfapyridine. Results may be falsely depressed after the administration of Sulfasalazine. Performed By: #### 4 537-7 #### [facility] CLIA [id number] [address] [place] [address] [place] Potassium [Moles/Vol] Normal Comment on above: Order Comment: Zena kang Type: BLOOD SPECIMEN Ordering Facility: [facility] Address: [address] [place] [address] Result Comment: Unab le to assay due to interference from hemolysis. Suggest reorder as clinically indicated. &XA&NOTIFIED RHONDA CASTANEDA HEMOLYZED K, HN Performed By: #### 4 537-7 #### [facility] CLIA [id number] [address] [place] [address] [place] Sodium [Moles/Vol] 133 mmol/L Low 136-145 Comment on above: Order Comment: Zena kang Type: BLOOD SPECIMEN Ordering Facility: [facility] Address: [address] [place] [address] Performed By: #### 4 537-7 #### [facility] CLIA [id number] [address] [place] [address] [place] Urea nitrogen [Mass/Vol] 14 mg/dL Normal 11-19 Comment on above: Order Comment: Zena kang Type: BLOOD SPECIMEN Ordering Facility: [facility] Address: [address] [place] [address] Performed By: #### 4 537-7 #### [facility] CLIA [id number] [address] [place] [address] [place] CBC W Auto Differential pane l (Bld)on 12-19-2024 Basophils (Bld) [#/Vol] 0.04 10*3/uL Normal <0.11 Comment on above: Order Comment: Speci men Type: BLOOD SPECIMEN Ordering Facility: [facility] Address: [address] [place] [address] Performed By: #### 4 537-7 #### [facility] CLIA [id number] [address] [place] [address] [place] Basophils/100 WBC (Bld) 0.8 % Normal Comment on above: Order Comment: Speci men Type: BLOOD SPECIMEN Ordering Facility: [facility] Address: [address] [place] [address] Performed By: #### 4 537-7 #### [facility] CLIA [id number] [address] [place] [address] [place] Differential cell count method Nom (Bld) Auto Normal Comment on above: Order Comment: Speci men Type: BLOOD SPECIMEN Ordering Facility: [facility] Address: [address] [place] [address] Performed By: #### 4 537-7 #### [facility] CLIA [id number] [address] [place] [address] [place] Eosinophils (Bld) [#/Vol] 0.22 10*3/uL Normal <0.46 Comment on above: Order Comment: Speci men Type: BLOOD SPECIMEN Ordering Facility: [facility] Address: [address] [place] [address] Performed By: #### 4 537-7 #### [facility] CLIA [id number] [address] [place] [address] [place] Eosinophils/100 WBC (Bld) 4.3 % Normal Comment on above: Order Comment: Speci men Type: BLOOD SPECIMEN Ordering Facility: [facility] Address: [address] [place] [address] Performed By: #### 4 537-7 #### [facility] CLIA [id number] [address] [place] [address] [place] Erythrocyte distribution width (RBC) [Ratio] 15.9 % High 11.5-15.0 Comment on above: Order Comment: Speci men Type: BLOOD SPECIMEN Ordering Facility: [facility] Address: [address] [place] [address] Performed By: #### 4 537-7 #### [facility] CLIA [id number] [address] [place] [address] [place] Hematocrit (Bld) [Volume fraction] 32.4 % Low 36.0-46.0 Comment on above: Order Comment: Speci men Type: BLOOD SPECIMEN Ordering Facility: [facility] Address: [address] [place] [address] Performed By: #### 4 537-7 #### [facility] CLIA [id number] [address] [place] [address] [place] Hemoglobin (Bld) [Mass/Vol] 10.5 g/dL Low 11.5-15.5 Comment on above: Order Comment: Speci men Type: BLOOD SPECIMEN Ordering Facility: [facility] Address: [address] [place] [address] Performed By: #### 4 537-7 #### [facility] CLIA [id number] [address] [place] [address] [place] Immature granulocytes (Bld) [#/Vol] 10*3/uL Normal <0.10 Comment on above: Order Comment: Speci men Type: BLOOD SPECIMEN Ordering Facility: [facility] Address: [address] [place] [address] Performed By: #### 4 537-7 #### [facility] CLIA [id number] [address] [place] [address] [place] Immature granulocytes/100 WBC (Bld) 0.4 % Normal Comment on above: Order Comment: Speci men Type: BLOOD SPECIMEN Ordering Facility: [facility] Address: [address] [place] [address] Performed By: #### 4 537-7 #### [facility] CLIA [id number] [address] [place] [address] [place] Lymphocytes (Bld) [#/Vol] 1.23 10*3/uL Normal 1.00-4.00 Comment on above: Order Comment: Speci men Type: BLOOD SPECIMEN Ordering Facility: [facility] Address: [address] [place] [address] Performed By: #### 4 537-7 #### [facility] CLIA [id number] [address] [place] [address] [place] Lymphocytes/100 WBC (Bld) 24.3 % Normal Comment on above: Order Comment: Speci men Type: BLOOD SPECIMEN Ordering Facility: [facility] Address: [address] [place] [address] Performed By: #### 4 537-7 #### [facility] CLIA [id number] [address] [place] [address] [place] MCH (RBC) [Entitic mass] 27.7 pg Normal 26.0-34.0 Comment on above: Order Comment: Speci men Type: BLOOD SPECIMEN Ordering Facility: [facility] Address: [address] [place] [address] Performed By: #### 4 537-7 #### [facility] CLIA [id number] [address] [place] [address] [place] MCHC (RBC) [Mass/Vol] 32.4 g/dL Normal 30.5-36.0 Comment on above: Order Comment: Speci men Type: BLOOD SPECIMEN Ordering Facility: [facility] Address: [address] [place] [address] Performed By: #### 4 537-7 #### [facility] CLIA [id number] [address] [place] [address] [place] MCV (RBC) [Entitic vol] 85.5 fL Normal 80.0-100.0 Comment on above: Order Comment: Speci men Type: BLOOD SPECIMEN Ordering Facility: [facility] Address: [address] [place] [address] Performed By: #### 4 537-7 #### [facility] CLIA [id number] [address] [place] [address] [place] Monocytes (Bld) [#/Vol] 0.56 10*3/uL Normal <0.87 Comment on above: Order Comment: Speci men Type: BLOOD SPECIMEN Ordering Facility: [facility] Address: [address] [place] [address] Performed By: #### 4 537-7 #### [facility] CLIA [id number] [address] [place] [address] [place] Monocytes/100 WBC (Bld) 11.0 % Normal Comment on above: Order Comment: Speci men Type: BLOOD SPECIMEN Ordering Facility: [facility] Address: [address] [place] [address] Performed By: #### 4 537-7 #### [facility] CLIA [id number] [address] [place] [address] [place] Neutrophils (Bld) [#/Vol] 3.00 10*3/uL Normal 1.45-7.50 Comment on above: Order Comment: Speci men Type: BLOOD SPECIMEN Ordering Facility: [facility] Address: [address] [place] [address] Performed By: #### 4 537-7 #### [facility] CLIA [id number] [address] [place] [address] [place] Neutrophils/100 WBC (Bld) 59.2 % Normal Comment on above: Order Comment: Speci men Type: BLOOD SPECIMEN Ordering Facility: [facility] Address: [address] [place] [address] Performed By: #### 4 537-7 #### [facility] CLIA [id number] [address] [place] [address] [place] Nucleated RBC (Bld) [#/Vol] 10*3/uL Normal <0.01 Comment on above: Order Comment: Speci men Type: BLOOD SPECIMEN Ordering Facility: [facility] Address: [address] [place] [address] Performed By: #### 4 537-7 #### [facility] CLIA [id number] [address] [place] [address] [place] Nucleated RBC/100 WBC (Bld) [Ratio] 0.0 /100 WBC Normal Comment on above: Order Comment: Speci men Type: BLOOD SPECIMEN Ordering Facility: [facility] Address: [address] [place] [address] Performed By: #### 4 537-7 #### [facility] CLIA [id number] [address] [place] [address] [place] Platelet mean volume (Bld) [Entitic vol] 9.0 fL Normal 9.0-12.7 Comment on above: Order Comment: Speci men Type: BLOOD SPECIMEN Ordering Facility: [facility] Address: [address] [place] [address] Performed By: #### 4 537-7 #### [facility] CLIA [id number] [address] [place] [address] [place] Platelets (Bld) [#/Vol] 260 10*3/uL Normal 150-400 Comment on above: Order Comment: Speci men Type: BLOOD SPECIMEN Ordering Facility: [facility] Address: [address] [place] [address] Performed By: #### 4 537-7 #### [facility] CLIA [id number] [address] [place] [address] [place] RBC (Bld) [#/Vol] 3.79 10*6/uL Low 3.90-5.20 Comment on above: Order Comment: Speci men Type: BLOOD SPECIMEN Ordering Facility: [facility] Address: [address] [place] [address] Performed By: #### 4 537-7 #### [facility] CLIA [id number] [address] [place] [id number] [facility] [place] WBC (Bld) [#/Vol] 5.07 10*3/uL Normal 3.70-11.00 Comment on above: Order Comment: Speci men Type: BLOOD SPECIMEN Ordering Facility: [facility] Address: [address] [place] [address] Performed By: #### 4 537-7 #### [facility] CLIA [id number] [facility] [place] [id number] [facility] CONSULT PROGon 12-19-2024 CONSULT PROG HNO ID: [id number] Author: JEF STARR APRN.[employer] Service: Pulmonary Disease Author Type: Nurse Practitioner Type: Consult Progress Note Filed: 12/19/2024 09:46 Note Text: PULMONARY PROGRESS NOTE SERVICE DATE: 12/19/2024 SERVICE TIME: 9:13 AM INTERVAL HPI: Sitting in chair without distress. Stable overnight and denies shortness of breath, cough, sputum production or any new respiratory complaints. Reports feeling better overall in the past couple days. Currently on 3L NC with resting SpO2 93%. Pt states that she needs to go home today, for her dogs. She becomes tearful when she says that her son is caring for them while she is in the hospital, but she has never been away from them this long and they need me and I need them. PAST MEDICAL HISTORY Diagnosis Date Abnormal Pap smear of cervix 09/2020 lgsil/+HPV 11/14 colp benign 08/18 ascus/+HPV 09/17 colp LGSIL Adjustment disorder with depressed mood Asthma (HCC) Chronic hypoxemic respiratory failure (HCC) COPD (chronic obstructive pulmonary disease) (HCC) Esophageal reflux Essential hypertension, benign Generalized anxiety disorder GI bleed History of transfusion HLD (hyperlipidemia) Hx of blood transfusion reaction Hypertension Kidney stones Menorrhagia Migraine without aura Morbid obesity (HCC) Nonspecific abnormal results of other endocrine function study 06/2004 Benign biopsy. Abnormally high thyroid globulin HARMONY (obstructive sleep apnea) Pulmonary emboli (HCC) 09/2013 Bilateral on CTA chest. Scleritis Type II or unspecified type diabetes mellitus without mention of complication, not stated as uncontrolled Uterine prolapse Prescriptions Prior to Admission[1] Current Facility-Administered Medications Medication Dose Route Frequency NaCl 0.9% iv flush bag 20 mL INTRAVENOUS PRN ondansetron 4 mg tab(s) (ZOFRAN) 4 mg ORAL q 6 H PRN Or ondansetron (PF) 4 mg injection (ZOFRAN) 4 mg INTRAVENOUS q 6 H PRN melatonin 3 mg tab(s) 3 mg ORAL DAILY (8 PM) acetaminophen 650 mg tab(s) (TYLENOL) 650 mg ORAL q 6 H PRN guaiFENesin 1,200 mg ER tab(s) (MUCINEX) 1,200 mg ORAL q 12 H ipratropium-albuterol 3 mL nebulizer solution (DUONEB) 3 mL INHALATION q 6 H PRN acetylcysteine 200 mg/mL (20 %) 400 mg (MUCOMYST) 400 mg INHALATION q 4 H PRN heparin 5,000 Units injection 5,000 Units SUBCUTANEOUS q 12 H ammonium lactate 12 % (LAC-HYDRIN) TOPICAL PRN diphenhydrAMINE-Zinc Acetate 2-0.1 % topical cream (BENADRYL) TOPICAL TID PRN atorvastatin 20 mg tab(s) (LIPITOR) 20 mg ORAL AT BEDTIME carvedilol 12.5 mg tab(s) (COREG) 12.5 mg ORAL BID w MEALS valsartan 160 mg tab(s) (DIOVAN) 160 mg ORAL DAILY magnesium oxide 400 mg tab(s) (MAG-OX) 400 mg ORAL DAILY sucralfate 1 g tab(s) (CARAFATE) 1 g ORAL BID AC levothyroxine 200 mcg tab(s) (SYNTHROID) 200 mcg ORAL DAILY (6 AM) dextrose 40 % 15 g 15 g ORAL PRN Or glucagon 1 mg injection 1 mg INTRAMUSCULAR PRN Or dextrose 10% iv bolus 12.5 g INTRAVENOUS PRN insulin lispro injection (rapid acting) (ADMElog) SUBCUTANEOUS w MEALS insulin lispro injection (rapid acting) (ADMElog) SUBCUTANEOUS AT BEDTIME benzonatate 100 mg cap(s) (TESSALON PERLE) 100 mg ORAL TID cefTRIAXone 2 g in D5W 100 mL Vial-Bag (ROCEPHIN) 2 g INTRAVENOUS q 24 H azithromycin 500 mg tab(s) (ZITHROMAX) 500 mg ORAL DAILY ipratropium-albuterol 3 mL nebulizer solution (DUONEB) 3 mL INHALATION QID budesonide 0.5 mg/2 mL 0.5 mg (PULMICORT) 0.5 mg INHALATION BID Allergies As of Date: 12/16/2024 Allergen Noted Reaction LATEX 11/26/2006 Itching PRINIVIL [LISINOPRIL] 07/23/2015 Cough ZANAFLEX [TIZANIDINE HCL] 06/05/2016 Shortness of Breath Fully Assessed 12/16/2024 Objective PHYSICAL EXAM: General: Awake AND alert, no distress, speaking in full sentences HEENT: NCAT, MMM Neck: Supple, no rigidity. Trachea is midline Heart: HR regular, S1/S2 Lungs: Non-labored breathing. Mild rhonchi bilaterally (R > L) posteriorly Abdomen: Soft, non-tender Extremities: (+) BLE edema Skin: Warm, dry Neurological: Moves all extremities x4. Grossly normal cognition and motor function VITAL SIGNS: BP 132/69 Pulse 59 Temp (Src) 97.6 (Oral) Resp 18 Ht 5' 5 (1.65m) Wt 213 lb 6.5 oz (96.8kg) SpO2 92% LMP 03/21/2005 BMI 35.51 kg/(m2). O2 Therapy: Nasal Cannula, Liters (Numeric Only): 3.0 DATA: Diagnostic tests reviewed for today's visit: CBC: Recent Labs 12/19/24 0430 WBC 5.07 RBC 3.79* HB 10.5* HCT 32.4* PLT 260 MCV 85.5 MCH 27.7 MPV 9.0 BMP: Recent Labs 12/19/24 0530 12/19/24 0430 NA -- 133* K 4.4 -- CHLOR -- 101 CO2 -- 24 BUN -- 14 CREAT -- 0.72 GLUC -- 97 ABG's: No results for input(s): PH, PCO2, PO2, BE, HCO3, CO2CT, O2HB, COHB, MHGB, TEMP, PHTC, PCO2T, PO2T, O2AD in the last 24 hours. Laboratory and Imaging: Last Spirometry SPIROMETRY WITH DILATOR IF OBSTRUCTED Collected: 06/20/2022 8:15 AM (Final re (more content not included)... Normal Magnesium SerPl-mCncon 12-19 Magnesium [Mass/Vol] 1.8 mg/dL Normal 1.6-2.6 Comment on above: Order Comment: Speci men Type: BLOOD SPECIMEN Ordering Facility: [facility] Address: [address], [place] [address] Performed By: #### 4 537-7 #### [facility] CLIA [id number] [address] [place] [address] [place] NUTRITIONon 12-19-2024 NUTRITION HNO ID: [id number] Author: LUIS ARMANDO [address] Service: Nutrition Therapy Author Type: Registered Dietitian Type: Nutrition Filed: 12/19/2024 15:33 Note Text: NUTRITION THERAPY INITIAL ASSESSMENT SERVICE DATE: 12/19/2024 SERVICE TIME: Start Time: 1430 Nutrition Assessment: Recommended Malnutrition Diagnosis: No Malnutrition Identified Nutrition Diagnosis: PES Statement: No diagnosis at this time Care Plan: Continue current diet Supplements: Ensure Max once daily Monitor and Evaluation: Meet greater than 75% of estimated needs, Monitor bowel function, Monitor labs, I/Os, vital signs, weight, Monitor fluid/electrolyte balance Discharge Recommendations: Diet Diet: CHO Controlled HPI: Pt admitted for hypoxic respiratory failure. Pulmonary consulted for workup of possible hypersensitive pneumonitis. Recommending bronchoscopy. Other history as follows. PAST MEDICAL HISTORY Diagnosis Date Abnormal Pap smear of cervix 09/2020 lgsil/+HPV 11/14 colp benign 08/18 ascus/+HPV 09/17 colp LGSIL Adjustment disorder with depressed mood Asthma (HCC) Chronic hypoxemic respiratory failure (HCC) COPD (chronic obstructive pulmonary disease) (HCC) Esophageal reflux Essential hypertension, benign Generalized anxiety disorder GI bleed History of transfusion HLD (hyperlipidemia) Hx of blood transfusion reaction Hypertension Kidney stones Menorrhagia Migraine without aura Morbid obesity (HCC) Nonspecific abnormal results of other endocrine function study 06/2004 Benign biopsy. Abnormally high thyroid globulin HARMONY (obstructive sleep apnea) Pulmonary emboli (HCC) 09/2013 Bilateral on CTA chest. Scleritis Type II or unspecified type diabetes mellitus without mention of complication, not stated as uncontrolled Uterine prolapse Intake History: Nutrition Intake Prior to Admission: Greater than 75% estimated energy needs greater than or equal to 1 month (Pt reports decreased appetite and intake but has been snacking and meeting needs) Current Nutrition Intake: Greater than 75% estimated energy needs Current Intake Over time: (2 days LOS. Recorded meal intakes mostly 100% since admission) Dosing Weight: 56.7 kg (125 lb) Dosing Weight Type: [place] body weight Estimated kilocalorie needs: 0487-3374 Calorie Calculation Method: 25-30 kcals/kg, [place] Body Weight Estimated protein needs (grams): 85-115 Grams protein determined by: [place] body weight, 1.5 - 2.0 g/kg Diet Orders (From admission, onward) Start Ordered 12/19/24 0915 DIET HEART HEALTHY START NOW Question: Heart Healthy Answer: 4 GM SODIUM (LOW SAT FAT) 12/19/24 0912 Anthropometrics: Height: 165.1 cm (5' 5) Weight: 96.8 kg (213 lb 6.5 oz) Usual Weight: 97.1 kg (214 lb) 12/03/23 Usual Weight Obtained From: Chart Review Body mass index is 35.51 kg/m?. Weight change percentage over time: Wt mostly stable over the last year with some fluctuations noted but no significant changes Weight Change: Stable weight(s) Last Wt 12/19/24 : 96.8 kg (213 lb 6.5 oz) 12/16/24 : 97.5 kg (215 lb) 11/30/24 : 97.5 kg (215 lb) 10/20/24 : 100.7 kg (222 lb) 10/06/24 : 103 kg (227 lb) 08/22/24 : 104.4 kg (230 lb 3.2 oz) 06/09/24 : 98 kg (216 lb) 01/26/24 : 98 kg (216 lb) 12/29/23 : 94.3 kg (208 lb) 12/03/23 : 97.1 kg (214 lb) Physical Exam: Subcutaneous fat loss: No Subcutaneous Fat Loss Muscle loss: No Muscle Loss Potential micronutrient deficiency: No deficiency identified Edema/Ascites: Upper extremities, Lower extremities, Generalized Upper Extremity: Mild 1+ Lower Extremity: Moderate 2+ GI Symptoms: None Functional Status: No Change Potential Signs of Inflammation: Hyperglycemia, Chronic condition MNT Billing: $ Routine Care : 1 unit Time Spent (mins): 4 SIGNATURE: Luis Armando Smart RD PATIENT NAME: Jesus Zepeda DATE: December 19, 2024 TIME: 3:30 PM [facility] POTASSIUMon 12-19-2024 Potassium [Moles/Vol] 4.4 mmol/L Normal 3.5-5.1 Comment on above: Order Comment: Zena kang Type: BLOOD SPECIMEN [facility]ing Facility: [facility] Address: [address] [place] [address] Performed By: #### 4 537-7 #### [facility] CLIA [id number] [address] [place] [address] Phosphate SerPl-mCncon 12-19 Phosphate [Mass/Vol] 3.9 mg/dL Normal 2.5-4.9 Comment on above: Order Comment: Zena kang Type: BLOOD SPECIMEN [facility]ing Facility: [facility] Address: [address] [place] [address] Result Comment: Elev ated m-protein (paraprotein) levels in the serum may be exhibited in patients with monoclonal gammopathies, causing falsely elevated inorganic phosphorus results. Performed By: #### 4 537-7 #### [facility] CLIA [id number] [address] [place] [address] THERAPY NTon 12-19-2024 THERAPY NT HNO ID: [id number] Author: FRANCESCA MOSER RRT Service: Respiratory Therapy Author Type: Registered Resp Therapist Type: Therapy (PT/OT/Speech/Resp) Filed: 12/19/2024 14:04 Note Text: 12/19/24 1354 Procedures Procedure Type A-M Home Oxygen Qualification Test Home Oxygen Qualification Test $Home Oxygen Qualification Test $Performed Patient Currently On Home Oxygen No Baseline SpO2 at Rest on Room Air 88 SpO2 < or = to 88% at Rest on RA Yes SpO2 at Rest maintained > or = to 92% on NC Liters 3 Final SpO2 on O2 at Rest 94 % Patient Ambulated? Yes Initial O2 Device for Ambulation NC Liters 3 SPO2 Maintained > or = to 92% on Initial O2 for Ambulation No, Test Continued Device for first O2 Adjustment NC Liters 6 SPO2 Maintained > or = to 92% on Adjusted O2 for Ambulation Yes Final SpO2 on O2 92 % What was SpO2 on 4L O2 With Ambulation 86 Based on Medicare Guidelines Patient Qualifies For portable oxygen while ambulating Based on Medicare Guidelines Patient Qualifies For continuous oxygen Total Time Spent for Home Oxygen Qualification Test 15 minutes RESPIRATORY THERAPY PROGRESS NOTE SERVICE DATE: 12/19/2024 SERVICE TIME: SIGNATURE: Francesca Moser RRT PATIENT NAME: Jesus Zepeda DATE: December 19, 2024 TIME: 2:04 PM PAGER/CONTACT #: Normal Basic metabolic 2000 panelon 12-18-2024 Anion gap [Moles/Vol] 6 mmol/L Normal 5-16 Comment on above: Order Comment: Speci men Type: BLOOD SPECIMENOrdering Facility: [facility] Address: [address] [place], [place] [address] Performed By: #### 2 4321-2, , 2776-04 ####[facility]ATORYCLIA [id number] [place] [address] [place] Calcium [Mass/Vol] 9.5 mg/dL Normal 8.5-10.5 Comment on above: Order Comment: Speci men Type: BLOOD SPECIMENOrdering Facility: [facility] Address: [address] [id number] Performed By: #### 2 4321-2, , 2776-04 ####[facility]ORATORYCLIA [id number] [place] [address] [place] Chloride [Moles/Vol] 102 mmol/L Normal 98-107 Comment on above: Order Comment: Speci men Type: BLOOD SPECIMENOrdering Facility: [facility] Address: [address] [place] [address] Performed By: #### 2 4321-2, , 2776-04 ####[facility] LABORATORYCLIA [id number] [place] [id number] [place] CO2 [Moles/Vol] 25 mmol/L Normal 21-32 Comment on above: Order Comment: Speci men Type: BLOOD SPECIMENOrdering Facility: [facility] Address: [address] [place] [address] Performed By: #### 2 4321-2, , 2776-04 ####[facility]ORATORYCLIA [id number] [place] [address] [place] Creatinine [Mass/Vol] 0.75 mg/dL Normal 0.51-0.95 Comment on above: Order Comment: Zena kang Type: BLOOD SPECIMENOrdering Facility: [facility] Address: [address] [place] [address] Result Comment: Bhavana ents receiving either N-Acetylcysteine (NAC) or Metamizole prior to venipuncture, may have falsely depressed results. Performed By: #### 2 4321-2, , 2776-04 ####[facility]ATORYCLIA [id number] [place] [address] [place] eGFRcr SerPlBld CKD-EPI 2020 92 mL/min/1.73m??? Normal >=60 Comment on above: Order Comment: Zena kang Type: BLOOD SPECIMENOrdering Facility: [facility] Address: [address] [place] [address] Result Comment: Daisha mated Glomerular Filtration Rate (eGFR) is calculated using the 2020 CKD-EPI creatinine equation. This equation utilizes serum creatinine, sex, and age as parameters. The creatinine assay has traceable calibration to isotope dilution-mass spectrometry. Refer to KDIGO guidelines for clinical interpretation. In patients with unstable renal function, e.g. those with acute kidney injury, the eGFR may not accurately reflect actual GFR. Performed By: #### 2 4321-2, , 2776-04 ####[facility]ATORYCLIA [id number] [place] [id number] [place] Glucose [Mass/Vol] 107 mg/dL High 70-100 Comment on above: Order Comment: Zena kang Type: BLOOD SPECIMENOrdering Facility: [facility] Address: [address] [place] [address] Result Comment: The [place] Diabetes [employer] (ADA) provides guidance for cutoff values for fasting glucose and random glucose. The ADA defines fasting as no caloric intake for at least 8 hours. Fasting plasma glucose results between 100 to 125 mg/dL indicate increased risk for diabetes (prediabetes). Fasting plasma glucose results greater than or equal to 126 mg/dL meet the criteria for diagnosis of diabetes. In the absence of unequivocal hyperglycemia, results should be confirmed by repeat testing. In a patient with classic symptoms of hyperglycemia or hyperglycemic crisis, random plasma glucose results greater than or equal to 200 mg/dL meet the criteria for diagnosis of diabetes. Reference: Standards of Medical Care in Diabetes 2016, [place] [employer]. Diabetes Care. 2016.39(Suppl 1). Results may be falsely elevated after the administration of Sulfapyridine. Results may be falsely depressed after the administration of Sulfasalazine. Performed By: #### 2 4321-2, , 2776-04 ####[facility]ATORYCLIA [id number] [place] [id number] [place] Potassium [Moles/Vol] 4.3 mmol/L Normal 3.5-5.1 Comment on above: Order Comment: Zena kang Type: BLOOD SPECIMENOrdering Facility: [facility] Address: [address] [place] [address] Performed By: #### 2 4321-2, , 2776-04 ####[facility]ATORYCLIA [id number] [place] [id number] [place] Sodium [Moles/Vol] 133 mmol/L Low 136-145 Comment on above: Order Comment: Zena kang Type: BLOOD SPECIMENOrdering Facility: [facility] Address: [address] [place] [address] Performed By: #### 2 4321-2, , 2776-04 ####[facility]ATORYCLIA [id number] [place] [id number] [place] Urea nitrogen [Mass/Vol] 10 mg/dL Normal 7-26 Comment on above: Order Comment: Zena kang Type: BLOOD SPECIMENOrdering Facility: [facility] Address: [address] [place] [address] Performed By: #### 2 4321-2, , 2776-04 ####[facility]ORYCLIA [id number] [place] [address] [place] CBC W Auto Differential pane l (Bld)on 12-18-2024 Basophils (Bld) [#/Vol] 0.04 10*3/uL Normal <0.11 Comment on above: Order Comment: Speci men Type: BLOOD SPECIMENOrdering Facility: [facility] Address: [address] [place] [address] Performed By: #### 5 7021-8 ####[facility]ATORYCLIA [id number] [place] [address] [place] Basophils/100 WBC (Bld) 0.8 % Normal Comment on above: Order Comment: Speci men Type: BLOOD SPECIMENOrdering Facility: [facility] Address: [address] [place] [address] Performed By: #### 5 7021-8 ####[facility]ORATORYCLIA [id number] [address] [place] Differential cell count method Nom (Bld) Auto Normal Comment on above: Order Comment: Speci men Type: BLOOD SPECIMENOrdering Facility: [facility] Address: [address] [place] [address] Performed By: #### 5 7021-8 ####[facility]ATORYCLIA [id number] [place] [address] [place] Eosinophils (Bld) [#/Vol] 0.19 10*3/uL Normal <0.46 Comment on above: Order Comment: Speci men Type: BLOOD SPECIMENOrdering Facility: [facility] Address: [address] [place] [address] Performed By: #### 5 7021-8 ####[facility]ATORYCLIA [id number] [address] [place] Eosinophils/100 WBC (Bld) 3.7 % Normal Comment on above: Order Comment: Speci men Type: BLOOD SPECIMENOrdering Facility: [facility] Address: [address] [place], [place] [address] [address] Performed By: #### 5 7021-8 ####[facility]ORATORYCLIA [id number] [place] [address] [place] Erythrocyte distribution width (RBC) [Ratio] 16.2 % High 11.5-15.0 Comment on above: Order Comment: Speci men Type: BLOOD SPECIMENOrdering Facility: [facility] Address: [address] [place] [address] Performed By: #### 5 7021-8 ####[facility]ORATORYCLIA [id number] [place] [address] [place] Hematocrit (Bld) [Volume fraction] 33.6 % Low 36.0-46.0 Comment on above: Order Comment: Speci men Type: BLOOD SPECIMENOrdering Facility: [facility] Address: [address] [place] [address] Performed By: #### 5 7021-8 ####[facility]ATORYCLIA [id number] [address] [place] Hemoglobin (Bld) [Mass/Vol] 10.7 g/dL Low 11.5-15.5 Comment on above: Order Comment: Speci men Type: BLOOD SPECIMENOrdering Facility: [facility] Address: [address] [place] [address] Performed By: #### 5 7021-8 ####[facility]ATORYCLIA [id number] [place] [address] [place] Immature granulocytes (Bld) [#/Vol] 10*3/uL Normal <0.10 Comment on above: Order Comment: Speci men Type: BLOOD SPECIMENOrdering Facility: [facility] Address: [facility] [place] [address] Performed By: #### 5 7021-8 ####[facility]ORATORYCLIA [id number] [place] [id number] [place] Immature granulocytes/100 WBC (Bld) 0.4 % Normal Comment on above: Order Comment: Speci men Type: BLOOD SPECIMENOrdering Facility: [facility] Address: [address] [place] [address] Performed By: #### 5 7021-8 ####[facility]ORATORYCLIA [id number] [place] [address] [place] Lymphocytes (Bld) [#/Vol] 1.17 10*3/uL Normal 1.00-4.00 Comment on above: Order Comment: Speci men Type: BLOOD SPECIMENOrdering Facility: [facility] Address: [address] [place] [address] Performed By: #### 5 7021-8 ####[facility]ATORYCLIA [id number] [address] [place] Lymphocytes/100 WBC (Bld) 22.7 % Normal Comment on above: Order Comment: Speci men Type: BLOOD SPECIMENOrdering Facility: [facility] Address: [address] [place] [address] Performed By: #### 5 7021-8 ####[facility]ATORYCLIA [id number] [place] [address] [place] MCH (RBC) [Entitic mass] 27.5 pg Normal 26.0-34.0 Comment on above: Order Comment: Speci men Type: BLOOD SPECIMENOrdering Facility: [facility] Address: [address] [place] [address] Performed By: #### 5 7021-8 ####[facility]ATORYCLIA [id number] [place] [address] [place] MCHC (RBC) [Mass/Vol] 31.8 g/dL Normal 30.5-36.0 Comment on above: Order Comment: Speci men Type: BLOOD SPECIMENOrdering Facility: [facility] Address: [address] [place] [address] Performed By: #### 5 7021-8 ####[facility]ATORYCLIA [id number] [place] [address] [place] MCV (RBC) [Entitic vol] 86.4 fL Normal 80.0-100.0 Comment on above: Order Comment: Speci men Type: BLOOD SPECIMENOrdering Facility: [facility] Address: [address] [place] [address] Performed By: #### 5 7021-8 ####[facility]ATORYCLIA [id number] [place] [address] [place] Monocytes (Bld) [#/Vol] 0.58 10*3/uL Normal <0.87 Comment on above: Order Comment: Speci men Type: BLOOD SPECIMENOrdering Facility: [facility] Address: [address] [place] [address] Performed By: #### 5 7021-8 ####[facility]ORYCLIA [id number] [address] [place] Monocytes/100 WBC (Bld) 11.2 % Normal Comment on above: Order Comment: Speci men Type: BLOOD SPECIMENOrdering Facility: [facility] Address: [address] [place] [address] Performed By: #### 5 7021-8 ####[facility]ORYCLIA [id number] [place] [address] [place] Neutrophils (Bld) [#/Vol] 3.16 10*3/uL Normal 1.45-7.50 Comment on above: Order Comment: Speci men Type: BLOOD SPECIMENOrdering Facility: [facility] Address: [address] [place] [address] Performed By: #### 5 7021-8 ####[facility]ORYCLIA [id number] [place] [address] [place] Neutrophils/100 WBC (Bld) 61.2 % Normal Comment on above: Order Comment: Speci men Type: BLOOD SPECIMENOrdering Facility: [facility] Address: [address] [place] [address] Performed By: #### 5 7021-8 ####[facility]ATORYCLIA [id number] [place] [id number] [place] Nucleated RBC (Bld) [#/Vol] 10*3/uL Normal <0.01 Comment on above: Order Comment: Speci men Type: BLOOD SPECIMENOrdering Facility: [facility] Address: [address] [place] [address] Performed By: #### 5 7021-8 ####[facility]ORYCLIA [id number] [place] [address] [place] Nucleated RBC/100 WBC (Bld) [Ratio] 0.0 /100 WBC Normal Comment on above: Order Comment: Speci men Type: BLOOD SPECIMENOrdering Facility: [facility] Address: [address] [place] [address] Performed By: #### 5 7021-8 ####[facility]ATORYCLIA [id number] [place] [address] [place] Platelet mean volume (Bld) [Entitic vol] 9.2 fL Normal 9.0-12.7 Comment on above: Order Comment: Speci men Type: BLOOD SPECIMENOrdering Facility: [facility] Address: [address] [place] [address] Performed By: #### 5 7021-8 ####[facility]ATORYCLIA [id number] [place] [address] [place] Platelets (Bld) [#/Vol] 271 10*3/uL Normal 150-400 Comment on above: Order Comment: Speci men Type: BLOOD SPECIMENOrdering Facility: [facility] Address: [address] [place] [address] Performed By: #### 5 7021-8 ####[facility]ATORYCLIA [id number] [place] [address] [place] RBC (Bld) [#/Vol] 3.89 10*6/uL Low 3.90-5.20 Comment on above: Order Comment: Speci men Type: BLOOD SPECIMENOrdering Facility: [facility] Address: [address] [place] [address] Performed By: #### 5 7021-8 ####[facility]ATORYCLIA [id number] [place] [id number] [place] WBC (Bld) [#/Vol] 5.16 10*3/uL Normal 3.70-11.00 Comment on above: Order Comment: Speci men Type: BLOOD SPECIMENOrdering Facility: [facility] Address: [address] [place] [address] Performed By: #### 5 7021-8 ####[facility]ATORYCLIA [id number] [place] [id number] [place] Legionella Ag Ur Qlon 2024 Legionella sp Ag Ql (U) Positive Abnormal Negative Comment on above: Order Comment: Speci men Type: BLOOD SPECIMEN [facility] Address: [address] [place] [address] Performed By: #### 4 537-7 #### [facility] CLIA [id number] [facility] [place] [address] [place] Magnesium SerPl-mCncon 12-18 Magnesium [Mass/Vol] 1.6 mg/dL Normal 1.6-2.6 Comment on above: Order Comment: Speci men Type: BLOOD SPECIMENOrdering Facility: [facility] Address: [address] [place] [address] Performed By: #### 2 4321-2, 91294-2, 2777-1 ####[facility]ATORYCLIA [id number] [place] [id number] [place] Phosphate SerPl-mCncon 12-18 Phosphate [Mass/Vol] 3.7 mg/dL Normal 2.5-4.9 Comment on above: Order Comment: Speci men Type: BLOOD SPECIMENOrdering Facility: [facility] Address: [address] [place] [address] Result Comment: Elev ated m-protein (paraprotein) levels in the serum may be exhibited in patients with monoclonal gammopathies, causing falsely elevated inorganic phosphorus results. Performed By: #### 2 4321-2, 72649-1, 2777-1 ####[facility]ATORYCLIA [id number] [address] [place] STREPTOCOCCUS PNEUMONIAE ANT IGEN URINEon 12-18-2024 STREPTOCOCCUS PNEUMONIAE ANTIGEN URINE STREP PNEUMO AG RESULT: Negative for Streptococcus pneumoniae antigen. Presumptive negative for pneumococcal pneumonia, suggesting no current or recent pneumococcal infection. Infection due to S.pneumoniae cannot be ruled out since the antigen present in the sample may be below the detection limit of the test. Normal Comment on above: Performed By: #### S PNAG ####[facility]ATORYCLIA [id number] [address] [place] URINALYSIS, REFLEX MICROSCOP ICon 12-18-2024 Bacteria LM.HPF (Urine sed) [#/Area] None Seen Normal None Seen Comment on above: Order Comment: Speci men Type: URINE SPECIMENOrdering Facility: [facility] Address: [address] [place] [address] Performed By: #### L [id number] ####[facility]ORATORYCLIA [id number] [address] [place] Bilirubin Ql (U) Negative Normal Negative Comment on above: Order Comment: Speci men Type: URINE SPECIMENOrdering Facility: [facility] Address: [address] [place] [address] Performed By: #### L [id number] ####[facility]ATORYCLIA [id number] [address] [place] Clarity (Unsp spec) Clear Normal Clear Comment on above: Order Comment: Speci men Type: URINE SPECIMENOrdering Facility: [facility] Address: [address] [place] [address] Performed By: #### L [id number] ####[facility]ATORYCLIA [id number] [address] [place] Color (U) Yellow Normal Yellow Comment on above: Order Comment: Speci men Type: URINE SPECIMENOrdering Facility: [facility] Address: [address] [place] [address] Performed By: #### L [id number] ####[facility]ORATORYCLIA [id number] [place] [address] [place] [facility] [place] Epithelial cells LM.HPF (Urine sed) [#/Area] Few Normal Comment on above: Order Comment: Speci men Type: URINE SPECIMENOrdering Facility: [facility] Address: [address] [place] [address] Performed By: #### L [id number] ####[facility]ORATORYCLIA [id number] [address] Glucose Test strip (U) [Mass/Vol] Negative Normal Negative Comment on above: Order Comment: Speci men Type: URINE SPECIMENOrdering Facility: [facility] Address: [address] [place] [address] Performed By: #### L [id number] ####[facility]ORATORYCLIA [id number] [address] STATES OF [facility] Hemoglobin Ql (U) 1+ Abnormal Negative Comment on above: Order Comment: Speci men Type: URINE SPECIMENOrdering Facility: [facility] Address: [address] [place] [address] Performed By: #### L [id number] ####[facility]ORATORYCLIA [id number] [place] [address] [place] Ketones Ql (U) Negative Normal Negative Comment on above: Order Comment: Speci men Type: URINE SPECIMENOrdering Facility: [facility] Address: [address] [place] [address] Performed By: #### L [id number] ####[facility]ORATORYCLIA [id number] [address] [place] Leukocyte esterase Test strip Ql (U) Negative Normal Negative Comment on above: Order Comment: Speci men Type: URINE SPECIMENOrdering Facility: [facility] Address: [address] [place] [address] Performed By: #### L [id number] ####[facility] LABORATORYCLIA [id number] [place] [address] [place] Nitrite Ql (U) Negative Normal Negative Comment on above: Order Comment: Speci men Type: URINE SPECIMENOrdering Facility: [facility] Address: [address] [place] [address] Performed By: #### L [id number] ####[facility] LABORATORYCLIA [id number] [place] [address] [place] pH (U) 7.0 [pH] Normal 5.0-8.0 Comment on above: Order Comment: Speci men Type: URINE SPECIMENOrdering Facility: [facility] Address: [address] [place] [address] Performed By: #### L [id number] ####[facility] LABORATORYIA [id number] [place] [address] [place] Protein (U) [Mass/Vol] Negative Normal Negative Comment on above: Order Comment: Speci men Type: URINE SPECIMENOrdering Facility: [facility] Address: [address] [place] [address] Performed By: #### L [id number] ####[facility] LABORATORYCLIA [id number] [place] [address] [place] RBC LM.HPF (Urine sed) [#/Area] 0-3 /HPF Normal 0-3 /HPF Comment on above: Order Comment: Speci men Type: URINE SPECIMENOrdering Facility: [facility] Address: [address] [place] [address] Performed By: #### L [id number] ####[facility] LABORATORYCLIA [id number] [place] [address] [place] Specific gravity (U) [Rel density] 1.011 Normal 1.005-1.030 Comment on above: Order Comment: Speci men Type: URINE SPECIMENOrdering Facility: [facility] Address: [address] [place] [address] Performed By: #### L [id number] ####[facility] LABORATORYCLIA [id number] [address] [place] Urobilinogen Ql (U) Negative Normal Negative Comment on above: Order Comment: Speci men Type: URINE SPECIMENOrdering Facility: [facility] Address: [address] [place] [address] Performed By: #### L [id number] ####[facility] LABORATORYCLIA [id number] [address] [place] WBC LM.HPF (Urine sed) [#/Area] 0-5 /HPF Normal 0-5 /HPF Comment on above: Order Comment: Speci men Type: URINE SPECIMENOrdering Facility: [facility] Address: [address] [place] [address] Performed By: #### L [id number] ####[facility] LABORATORYCLIA [id number] [address] [place] US LEG VEIN DVT DG VAS LABo n 12-18-2024 LEG VEIN DVT DG VAS LAB Non-Invasive Vascular Laboratory [facility] Lower Extremity Venous Duplex Bilateral/Complete Date of service/time: 12/18/2024 9:46:27 AM Name: MRS. JESUS ZEPEDA Date of : 1965 Age: 59 years Gender: F Clinical Indication Bilateral leg swelling. TECHNIQUE -------- A venous duplex ultrasound examination was performed, including grayscale imaging with compression maneuvers and color Doppler and spectral Doppler examination with augmentation maneuvers and response to respiration of the below mentioned veins. FINDINGS -------- RIGHT SIDE Distal external iliac vein Doppler: normal flow. Compression: normal. Common femoral vein Doppler: normal flow. Compression: normal. Femoral vein Doppler: normal flow. Compression: normal. Popliteal vein Doppler: normal flow. Compression: normal. Posterior tibial veins Compression: normal. Peroneal veins Compression: normal. Great saphenous vein Compression: normal. Small saphenous vein Compression: normal. Soleal vein Compression: normal. Gastrocnemius vein Compression: normal. Profunda vein Doppler: normal flow. Compression: normal. LEFT SIDE Distal external iliac vein Doppler: normal flow. Compression: normal. Common femoral vein Doppler: normal flow. Compression: normal. Femoral vein Doppler: normal flow. Compression: normal. Popliteal vein Doppler: normal flow. Compression: normal. Posterior tibial veins Compression: normal. Peroneal veins Compression: normal. Great saphenous vein Compression: normal. Small saphenous vein Compression: normal. Gastrocnemius vein Compression: normal. Profunda vein Doppler: normal flow. Compression: normal. Varicosity off the great saphenous vein Compression: normal. IMPRESSION Poor visualization of the bilateral calf veins. Some veins imaged with color signal augments. Technically difficult exam due to patient's body habitus. RIGHT SIDE - DEEP VEINS Negative for acute deep vein thrombosis. Unable to visualize the soleal vein. RIGHT SIDE - SUPERFICIAL VEINS Negative for superficial thrombophlebitis in the great saphenous vein and small saphenous vein. LEFT SIDE - DEEP VEINS Negative for acute deep vein thrombosis. LEFT SIDE - SUPERFICIAL VEINS Negative for superficial thrombophlebitis in the great saphenous vein, small saphenous vein and varicosity off the great saphenous vein. Technologist: Mayelin Ocampo Ordering physician: RACHEL ANGEL Interpreting physician: Tj Banegas MD Final CC [employer] [facility] Image : [id number] See Link below for Image Normal BLANCA BY IFA WITH REFLEXon Nuclear Ab pattern (S) [Interp] Nuclear homogeneous Normal Comment on above: Order Comment: Speci men Type: BLOOD SPECIMENOrdering Facility: [facility] Address: [address] [place] [address] Performed By: #### A NCA, ANAIFR, 07419-9, 13295-2, 74679-7, 49899-5, 16859-4, 23499-3, 49131-3, 24992-4, 78806-9 ####[facility] LABCLIA [id number] [place] [address] [place] Nuclear Ab Ql (S) Positive Abnormal Negative Comment on above: Order Comment: Speci men Type: BLOOD SPECIMENOrdering Facility: [facility] Address: [address] [place] [address] Result Comment: Anti -nuclear antibody test is used as an aid in diagnosis of systemic autoimmune diseases. Where positive and clinically warranted, follow-up using disease-specific testing is recommended. Low positive titers are not uncommon with advanced age, certain chronic infections, and malignancies among others. Test methodology: Indirect fluorescence immunoassay (IFA) using HEp-2 cells. 1:320 Performed By: #### A NCA, ANAIFR, 15144-1, 78890-3, 73332-0, 75584-2, 31702-2, 05163-9, 41039-7, 98032-2, 69077-5 ####[facility] LABCLIA [id number] [place] [address] [place] ANTI NEUTRO CYTO ABon 2024 INTERPRETATION (ANCA) Normal Comment on above: Order Comment: Saraii jorge luis Type: BLOOD SPECIMENOrdering Facility: [facility] Address: [address] [place] [address] Result Comment: Nega tive anti-Myeloperoxidase multiplex flow immunoassay results but P-ANCA pattern identified by confirmatory immunofluorescence. Interpretation: Positive for P-ANCA. This can be due to other neutrophil granules cationic enzymes or non-specific reactivity. Anti-nuclear antibody test may be considered. Clinical correlation is required. Discordant indirect immunofluorescence vs. multiplex flow immunoassay ANCA results is rarely seen in the context of ANCA-associated vasculitides and other autoimmune conditions. Clinical correlation is required. Performed By: #### A NCA, ANAIFR, 66621-8, 25250-0, 88357-5, 52822-1, 24529-5, 55666-9, 74222-4, 96833-9, 50870-3 ####[facility] LABCLIA [id number] [place] [address] [place] Myeloperoxidase Ab Qn (S) 0.5 AI Normal <1.0 Comment on above: Order Comment: Speci men Type: BLOOD SPECIMENOrdering Facility: [facility] Address: [address] [place] [address] Performed By: #### A NCA, ANAIFR, 29222-4, 23499-5, 13143-9, 28794-4, 54302-2, 53138-8, 85296-9, 54886-1, 81425-4 ####[facility] LABCLIA [id number] [place] [address] [place] Neutrophil cytoplasmic Ab.classic IF Ql (S) Negative Normal Negative Comment on above: Order Comment: Speci men Type: BLOOD SPECIMENOrdering Facility: [facility] Address: [address] [place] [address] Performed By: #### A NCA, ANAIFR, 55231-0, 70927-3, 52216-0, 21748-8, 59867-7, 10199-9, 56680-7, 96397-9, 93845-8 ####[facility] LABCLIA [id number] [place] [address] [place] Neutrophil cytoplasmic Ab.perinuclear IF Ql (S) Positive Abnormal Negative Comment on above: Order Comment: Speci men Type: BLOOD SPECIMENOrdering Facility: [facility] Address: [address] [place] [address] Performed By: #### A NCA, ANAIFR, 63381-1, 30824-2, 40065-3, 64005-8, 77717-8, 15960-9, 81471-3, 91232-3, 46689-1 ####[facility] LABCLIA [id number] [address] [address] [place] Proteinase 3 Ab Qn (S) 1.0 AI High <1.0 Comment on above: Order Comment: Speci men Type: BLOOD SPECIMENOrdering Facility: [facility] Address: [address] [place] [address] Performed By: #### A NCA, ANAIFR, 93569-5, 01869-3, 91512-4, 63579-6, 11319-6, 21851-4, 73808-5, 55512-1, 61283-7 ####[facility] LABCLIA [id number] [place] [id number] [facility] STAFF REVIEW (ANCA) Reviewed by Soham Johnson, Ph.D D(ABMLI) Normal Comment on above: Order Comment: Speci men Type: BLOOD SPECIMENOrdering Facility: [facility] Address: [address] [place] [address] Performed By: #### A NCA, ANAIFR, 05185-4, 56391-8, 73063-1, 96626-6, 98039-0, 26691-9, 38765-1, 36010-3, 38228-2 ####[facility] LABCLIA [id number] [address] [address] [place] BIRD FANCIERS PRECPTN PNL 1o n 12-17-2024 CANARY DROPPINGS Negative Normal Negative Comment on above: Order Comment: Speci men Type: BLOOD SPECIMEN [facility]ing [facility]: [facility] Address: [address] [place] [address] Performed By: #### 1 1572-5, 35147-1, 60976-7, 97430-7, 5195-3 #### [facility] CLIA [id number] [address] [place] [address] [place] CHICKEN SERUM Negative Normal Negative Comment on above: Order Comment: Speci men Type: BLOOD SPECIMEN [facility]ing Facility: [facility] Address: [address] [place], [place] [address] Performed By: #### 1 1572-5, 32841-5, 18916-3, 45135-6, 5-3 #### [facility] CLIA [id number] [address] [place], [place] [address] [facility] COCKATIEL DROPPINGS Negative Normal Negative Comment on above: Order Comment: Speci men Type: BLOOD SPECIMEN [facility]ing [facility]: [facility] Address: [address] [place] [address] Performed By: #### 1 1572-5, 86576-7, 40855-5, 88955-2, 5-3 #### [facility] CLIA [id number] [address] [place], [place] [address] [facility] [place] DROPPINGS Negative Normal Negative Comment on above: Order Comment: Speci men Type: BLOOD SPECIMEN [facility]ing Facility[facility] Address: [address] [place], [place] [address] Performed By: #### 1 1572-5, 57750-9, 64249-1, 93621-0, 5194-3 #### [facility] CLIA [id number] [address] [place], [place] [address] [facility] [place] DROPPINGS Negative Normal Negative Comment on above: Order Comment: Speci men Type: BLOOD SPECIMEN [facility]ing Facility: [facility] Address: [address] [place] [address] Performed By: #### 1 1572-5, 37512-2, 97660-1, 31804-7, 5-3 #### [facility] CLIA [id number] [address] [place], [place] [address] [facility] [place] SERUM Positive Abnormal Negative Comment on above: Order Comment: Speci men Type: BLOOD SPECIMEN [facility]ing Facility: [facility] Address: [address] [place], [place] [address] Performed By: #### 1 1572-5, 97384-4, 48626-4, 02853-3, 5-3 #### [facility] CLIA [id number] [address] [place], [place] [address] [facility] [place] DROPPINGS Negative Normal Negative Comment on above: Order Comment: Speci men Type: BLOOD SPECIMEN [facility]ing [facility]: [facility] Address: [address] [place] [address] Performed By: #### 1 1572-5, 03619-0, 79037-8, 93223-4, 5-3 #### [facility] CLIA [id number] [address] [place], [place] [address] [facility] [place] SERUM Positive Abnormal Negative Comment on above: Order Comment: Speci men Type: BLOOD SPECIMEN [facility]: [facility] Address: [address] [place] [address] Performed By: #### 1 1572-5, 62391-2, 85849-4, 56918-8, 5-3 #### [facility] CLIA [id number] [address] [place], [place] [address] [facility] [place] DROPPINGS Negative Normal Negative Comment on above: Order Comment: Speci men Type: BLOOD SPECIMEN [facility]ing [facility]: [facility] Address: [address] [place] [address] Performed By: #### 1 1572-5, 34897-7, 79007-0, 77551-9, 5-3 #### [facility] CLIA [id number] [address] [place], [place] [address] [facility] [place] SERUM Negative Normal Negative Comment on above: Order Comment: Speci men Type: BLOOD SPECIMEN [facility]: [facility] Address: [address] [place] [address] Result Comment: The gel diffusion method was used to test this patient's serum for the presence of precipitating antibodies(IgG) to the antigens indicated. These antibodies are serological markers for exposure and immunological sensitization. The clinical significance varies, depending on the history and symptoms. *This test was developed and its performance characteristics determined by [facility]. It has not been cleared or approved by the U.S. Food and Drug Administration. Testing Performed At: [facility] [address] [place] [address], [address] [place] [address] Evaluation Assistant: Adan Hong, PhD CHARITO (ABB) CLIA # [id number] FLAG Interpretation: A = Abnormal, H = High, L = Low Performed By: #### 1 1572-5, 57006-6, 79836-0, 07090-9, 5195-3 #### [facility] CLIA [id number] [facility] [address] CONSULTon 12-17-2024 CONSULT HNO ID: [id number] Author: JERRY MONTOYA MD Service: Pulmonary Disease Author Type: Physician Type: Consults Filed: 12/17/2024 11:34 Note Text: PULMONARY CONSULT NOTE SERVICE DATE: 12/17/2024 SERVICE TIME: 11:04 AM REASON FOR CONSULT: acute hypoxemic respiratory failure REQUESTING PHYSICIAN: Rachel Angel DO Subjective CHIEF COMPLAINT: This 59 year old female is being seen for evaluation and management of abnormal labs. HISTORY OF PRESENT ILLNESS: This is a 59-year-old female with past medical history of pulmonary hypertension and diastolic heart failure and reported history of COPD though she was never a smoker. She is part of the hospital after she had abnormal labs done by her PCP. She has been evaluated for chronic progressive shortness of breath along with leg edema and was found to have a positive D-dimer. She was furred to the ER given her prior history of pulmonary embolism for a CTA of the chest. CTA scan was done and was negative for pulmonary embolism although was degraded by motion artifact but did show bilateral triple density sign suggestive of hypersensitivity pneumonitis. She was admitted to the hospital for further workup and evaluation. She reports to me that she has had shortness of breath for several years but has been worse in the last year or so. She had 2 admissions for anemia a couple of years ago and was placed on oxygen 2 years ago, however her insurance no longer covered it and thus she was dropped from oxygen about a year ago. She has a chronic cough that is nonproductive which developed into acute cough in the last couple of weeks and told me she was recently diagnosed with pneumonia. She has had no fevers, chills, or malaise. She does report unintentional weight loss over the last 2 years of about 60 pounds. She has no chest pain, palpitations, or fluttering. She has no orthopnea. She does have GERD which is currently uncontrolled. She also has chronic sinus pain and pressure along with drainage. She tells me she has a history of asthma which was diagnosed in childhood and is on inhalers as needed. She is not sure which one and asked me to look in the chart. This is Symbicort and albuterol as needed. She is recently retired. 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 She leaves to live in a trailer which had black mold inside of it and left this home in May, she does think her breathing is better this then she also has 2 dogs and 4 birds in her home. She has no arthritis, rash, Raynaud's, or other CTD symptoms. There is a reported history of scleritis in her medical history as detailed below. 2 pregnancies no losses PAST MEDICAL HISTORY Diagnosis Date Abnormal Pap smear of cervix 09/2020 lgsil/+HPV 11/14 colp benign 08/18 ascus/+HPV 09/17 colp LGSIL Adjustment disorder with depressed mood Asthma (HCC) Chronic hypoxemic respiratory failure (HCC) COPD (chronic obstructive pulmonary disease) (HCC) Esophageal reflux Essential hypertension, benign Generalized anxiety disorder GI bleed History of transfusion HLD (hyperlipidemia) Hx of blood transfusion reaction Hypertension Kidney stones Menorrhagia Migraine without aura Morbid obesity (HCC) Nonspecific abnormal results of other endocrine function study 06/2004 Benign biopsy. Abnormally high thyroid globulin HARMONY (obstructive sleep apnea) Pulmonary emboli (HCC) 09/2013 Bilateral on CTA chest. Scleritis Type II or unspecified type diabetes mellitus without mention of complication, not stated as uncontrolled Uterine prolapse PAST SURGICAL HISTORY Procedure Laterality Date CARPAL TUNNEL Right 11/2015 CHOLECYSTECTOMY 11/15/2019 Dr. Ferguson COMBO ANT/POST COLPORR+ENTEROCELE 02/02/2024 CYSTOMETROGRAM 12/29/2023 CYSTOSCOPY 12/29/2023 EGD 03/07/2020 Dr Ferguson THYROID BIOPSY US 11/2015 THYROIDECTOMY TOTAL/COMPLETE Left 12/13/2018 Dr Ferguson TOTAL THYROID LOBECTOMY UNI W/WO ISTHMUSECTOMY 01/15/2007 right TUBAL LIGATION 1989 VAGINAL HYSTERECTOMY 02/02/2024 XCAPSL CTRC RMVL INSJ IO LENS PROSTH W/O ECP Right 06/2015 Cataract Extraction with PC IOL XCAPSL CTRC RMVL INSJ IO LENS PROSTH W/O ECP Left 07/2015 Cataract Extraction with PC IOL FAMILY HISTORY Problem Relation Age of Onset Hypertension Mother Diabetes Mother Thyroid Mother thyroidectomy other (heart murmur) Mother Heart Attack Father Diabetes Brother Hypertension Brother No Known Problems Brother Pneumothorax Maternal Grandmother No Known Problems Daughter No Known Problems Son Breast Cancer Maternal Aunt Metastatic to bone other (Other) Other No DVT or PE. SOCIAL HISTORY[1] MEDICATIONS: Prior to Admission Medications: carvedilol (COREG) 25 mg tabletTake 0.5 tablets by mouth two times a day.Disp: 30 tabletRfl: 5 SUMAtriptan (IMITRE (more content not included)... Normal Centromere Ab IF Ql (S)on Centromere Ab Qn (S) <0.2 Normal <1.0 Comment on above: Order Comment: Zena kang Type: BLOOD SPECIMEN [facility]: [facility] Address: [address] [place] [address] Result Comment: Anti -centromere antibody is used as in aid in diagnosis of systemic sclerosis. Clinical correlation is required. Test Methodology: Multiplex flow immunoassay. Performed By: #### 1 1572-5, 16274-0, 26984-4, 60488-2, 5195-3 #### [facility] CLIA [id number] [facility] [place] [address] [address] [place] CENTROMERE AB QUAL Negative Normal Negative Comment on above: Order Comment: Zena kang Type: BLOOD SPECIMEN [facility]: [facility] Address: [address] [place] [address] Performed By: #### 1 1572-5, 41128-1, 20529-2, 16209-9, 5195-3 #### [facility] CLIA [id number] [address] [place] [id number] [place] Chromatin Ab Qnon 12-17-2024 CHROMATIN AB QUAL Negative Normal Negative Comment on above: Order Comment: Speci men Type: BLOOD SPECIMENOrdering Facility: [facility] Address: [address] [place] [address] Performed By: #### A NCA, ANAIFR, 81471-1, 18253-0, 96130-8, 48435-9, 89147-8, 40864-2, 34396-0, 89735-1, 75514-1 ####[facility] LABCLIA [id number] [place] [address] [place] Chromatin Ab SerPl-aCncon Chromatin Ab Qn 0.8 AI Normal <1.0 Comment on above: Order Comment: Speci men Type: BLOOD SPECIMENOrdering Facility: [facility] Address: [address] [place] [address] Result Comment: Test Methodology: Multiplex flow immunoassay. Performed By: #### A NCA, ANAIFR, 11626-5, 34460-5, 77592-3, 51732-0, 20863-5, 08745-1, 62827-5, 79925-3, 59594-9 ####[facility] LABCLIA [id number] [place] [address] [place] Cyclic citrullinated peptide IgG Qnon 12-17-2024 CCP ANTIBODY IGG QUALITATIVE Negative Normal Negative Comment on above: Order Comment: Speci men Type: BLOOD SPECIMENOrdering Facility: [facility] Address: [address] [place] [address] Performed By: #### 3 3935-8 ####[facility] LABCLIA [id number] [place] DNA double strand Ab IA Qn ( S)on 12-17-2024 DNA ANTIBODY 6 IU/mL Normal <=200 Comment on above: Order Comment: Speci men Type: BLOOD SPECIMEN [facility]: [facility] Address: [address] [place] [address] Result Comment: Nega tive: <200 IU/mL Equivocal: 201-300 IU/mL Moderate Positive: 301-800 IU/mL Strong Positive: >801 IU/mL Performed By: #### 1 1572-5, 95078-8, 31911-1, 24745-2, 5195-3 #### [facility] CLIA [id number] [address] [place] [address] [place] DNA ANTIBODY QUALITATIVE INTERPRETATION Negative Normal Negative Comment on above: Order Comment: Speci men Type: BLOOD SPECIMEN [facility]: [facility] Address: [address] [place] [address] Performed By: #### 1 1572-5, 83937-3, 29771-5, 34691-1, 5-3 #### [facility] CLIA [id number] [address] [place] [address] [place] SARAH Jo1 Ab Ser-aCncon 2024 Jennifer-1 extractable nuclear Ab Qn (S) <0.2 Normal <1.0 Comment on above: Order Comment: Speci men Type: BLOOD SPECIMEN [facility] Facility: [facility] Address: [address] [place] [address] Performed By: #### 1 1572-5, 45737-7, 12925-5, 96553-7, 5195-3 #### [facility] CLIA [id number] [address] [place] [address] [place] SARAH [employer] MECHANIC Ab Ser-aCncon 2024 Ribonucleoprotein extractable nuclear Ab Qn (S) <0.2 Normal <1.0 Comment on above: Order Comment: Speci men Type: BLOOD SPECIMENOrdering Facility: [facility] Address: [address] [place] [address] Performed By: #### A NCA, ANAIFR, 99199-2, 85035-8, 87348-9, 60809-4, 22351-3, 53910-0, 25136-3, 70004-0, 08269-6 ####[facility] LABCLIA [id number] [place] [address] [place] Ribonucleoprotein extractable nuclear Ab Qn (S) 0.5 AI Normal <1.0 Comment on above: Order Comment: Speci men Type: BLOOD SPECIMEN [facility]ing Facility: [facility] Address: [address] [place] [address] Performed By: #### 1 1572-5, 15213-7, 46210-4, 05029-1, 5194-3 #### [facility] CLIA [id number] [address] [place] [address] [place] SARAH SM IgG Ser-aCncon 2024 Montoya extractable nuclear IgG Qn (S) <0.2 Normal <1.0 Comment on above: Order Comment: Speci men Type: BLOOD SPECIMEN [facility]ing [facility] Address: [address] [place] [address] Performed By: #### 1 1572-5, 61387-9, 70073-4, 41866-7, 5194-3 #### [facility] CLIA [id number] [address] [place] [address] [place] SARAH SS-A Ab Ser-aCncon 12-17 Sjogrens syndrome-A extractable nuclear Ab Qn (S) <0.2 Normal <1.0 Comment on above: Order Comment: Speci men Type: BLOOD SPECIMEN [facility]: [facility] Address: [address] [place] [address] Result Comment: Test Methodology: Multiplex flow immunoassay. Performed By: #### 1 1572-5, 16113-5, 82611-6, 89784-2, 5-3 #### [facility] CLIA [id number] [address] [place] [address] [place] SARAH SS-B Ab Ser-aCncon 12-17 Sjogrens syndrome-B extractable nuclear Ab Qn (S) <0.2 Normal <1.0 Comment on above: Order Comment: Zena kang Type: BLOOD SPECIMENOrdering Facility: [facility] Address: [address] [place] [address] Result Comment: Anti -SSB (anti-La) antibody is used as an aid in diagnosis of a variety of systemic autoimmune diseases, especially for Sjogren's syndrome and systemic lupus erythematosus. Clinical correlation is required. Test Methodology: Multiplex flow immunoassay. Performed By: #### A NCA, ANAIFR, 14080-8, 90584-2, 96045-3, 96988-6, 19805-1, 16368-8, 93158-9, 13529-5, 17043-8 ####[facility] LABCLIA [id number] [place] [address] [place] ESR Westergren method (Bld) [Velocity]on 12-17-2024 ESR (Bld) [Velocity] 59 mm/h High 0-30 Comment on above: Order Comment: Zena kang Type: BLOOD SPECIMEN [facility] Address: [address] [place] [address] Performed By: #### 4 537-7 #### [facility] CLIA [id number] [address] [place] [address] [place] HBV core Ab Ser Qlon 025 HBV core Ab Ql (S) Non-Reactive Normal Nonreactive [facility] Comment on above: Order Comment: Zena kang Type: BLOOD SPECIMEN [facility]ing Facility: [facility] Address: [address] [place] [address] Result Comment: Resu lts were obtained with the Atell[employer] IM IgM assay. Values obtained with different manufactures' assay methods may not be used interchangeably. Performed By: #### 1 1572-5, 50726-2, 30393-2, 96658-1, 5194-3 #### [facility] CLIA [id number] [address] [place] [address] [place] HBV surface Ab Ql (S)on 11-26 HBV surface Ab Qn (S) <3.10 Normal Comment on above: Order Comment: Speci men Type: BLOOD SPECIMEN Ordering Facility: [facility] Address: [address] [place] [address] Result Comment: STAT US OF IMMUNITY Protective Immunity: greater than or equal to 10 mIU/mL (Traceable to WHO International Reference Preparation) No Protective Immunity: less than 10 mIU/mL Note: The magnitude of the measured result above the cutoff is not indicative of the total amount of antibody present. Performed By: #### 1 1572-5, 17523-6, 95535-7, 03896-6, 5194-3 #### [facility] CLIA [id number] [address] [place] [address] [place] HBV surface Ab Ser Qlon 11-26 HBV surface Ab Ql (S) Negative [facility] Comment on above: Order Comment: Specdenver kang Type: BLOOD SPECIMEN Ordering Facility: [facility] Address: [address] [place] [address] Result Comment: No s erological evidence of immunity to Hepatitis B Virus. Performed By: #### 1 1572-5, 02355-1, 19287-3, 85728-6, 5194-3 #### [facility] CLIA [id number] [address] [place] [address] OF [facility] HBV surface Ag Ser Qlon 11-26 HBV surface Ag Ql (S) Non-Reactive Normal Equivocal, Nonreactive Comment on above: Order Comment: Speci jorge luis Type: BLOOD SPECIMEN Ordering Facility: [facility] Address: [address] [place] [address] Result Comment: Resu lts were obtained with the Atell[employer] IM IgM assay. Values obtained with different manufactures' assay methods may not be used interchangeably. Performed By: #### 1 1572-5, 42355-3, 84962-0, 26943-8, 5195-3 #### [facility] CLIA [id number] [address] [place] [address] [place] HCV Ab Ser Qlon 12-17-2024 HCV Ab Ql (S) Non-Reactive Normal Nonreactive Comment on above: Order Comment: Speci men Type: BLOOD SPECIMEN Ordering Facility: [facility] Address: [address] [place] [address] Result Comment: Scre ening test negative Nonreactive HCV Antibody Screen is consistent with no HCV infection, unless recent infection is suspected or other evidence exists to indicate HCV infection. Results were obtained with the [employer] IM IgG assay. Values obtained with different manufactures' assay methods may not be used interchangeably. Performed By: #### 1 1572-5, 49447-2, 53618-2, 26266-9, 5195-3 #### [facility] CLIA [id number] [address] [place] [address] [place] HIV 1+2 Ab IA Qlon HIV 1+2 Ab+HIV1 p24 Ag IA Ql Non-Reactive Normal Nonreactive Comment on above: Order Comment: Speci men Type: BLOOD SPECIMEN Ordering Facility: [facility] Address: [address] [place] [address] Result Comment: Nonr eactive: Less than 1.0 index value Specimens with an index value <1.0 are considered nonreactive for antibodies to HIV-1, HIV-2, and p24 antigen by the [employer] IM CHIV assay. Performed By: #### 4 537-7 #### [facility] CLIA [id number] [address] [place] [address] [place] HYPERSEN PNEUMON ABon 2024 A. FUMIGATUS #6 AB, PRECIPITIN Not detected Normal None Detected Comment on above: Order Comment: Speci men Type: BLOOD SPECIMEN Ordering Facility: [facility] Address: [address] [place] [address] Performed By: #### 1 1572-5, 77259-2, 08310-6, 57474-0, 5-3 #### [facility] CLIA [id number] [address] [place] [address] [place] A. PULLULANS, AB PRECIPITIN Not detected Normal None Detected Comment on above: Order Comment: Speci men Type: BLOOD SPECIMEN Ordering Facility: [facility] Address: [address] [place] [address] Performed By: #### 1 1572-5, 47456-0, 20248-3, 27250-6, 5194-3 #### [facility] CLIA [id number] [address] [place] [address] [place] FUMIGATUS #1 AB, PRECIPITIN Not detected Normal None Detected Comment on above: Order Comment: Speci men Type: BLOOD SPECIMEN Ordering Facility: [facility] Address: [address] [place] [address] Performed By: #### 1 1572-5, 70909-3, 33117-2, 40910-5, 5194-3 #### [facility] CLIA [id number] [address] [place] [address] [place] M. FAENI AB, PRECIPITIN Not detected Normal None Detected Comment on above: Order Comment: Speci men Type: BLOOD SPECIMEN Ordering Facility: [facility] Address: [address] [place] [address] Result Comment: Test ing includes antibodies directed at Aureobasidium pullulans, Aspergillus fumigatus #1, Aspergillus fumigatus #6, Micropolyspora faeni, and [place] Serum. Performed By: [employer] [address] [place] [address] Auto Brake Mechanic: Nikko Andres MD, PhD CLIA Number: [id number] Performed By: #### 1 1572-5, 42092-5, 10301-6, 64693-5, 5194-3 #### [facility] CLIA [id number] [address] [place], [place] [address] [place] PIGEON SERUM AB Not detected Normal None Detected [facility] Comment on above: Order Comment: Speci men Type: BLOOD SPECIMEN Ordering Facility: [facility] Address: [address] [place], [place] [address] Performed By: #### 1 1572-5, 52162-5, 44567-1, 61194-9, 5195-3 #### [facility] CLIA [id number] [address] [place], [place] [address] [place] IGG SUBCLASS 1,2,3,4on 12-17 IgG subclass 1 (S) [Mass/Vol] 1936.0 mg/dL High 382.4-928.6 Comment on above: Order Comment: Speci men Type: BLOOD SPECIMEN Ordering Facility: [facility] Address: [address] [place] [address] Performed By: #### 4 537-7 #### [facility] CLIA [id number] [address] [place] [address] [place] IgG subclass 2 (S) [Mass/Vol] 299.5 mg/dL Normal 241.8-700.3 Comment on above: Order Comment: Speci men Type: BLOOD SPECIMEN Ordering Facility: [facility] Address: [address] [place] [address] Performed By: #### 4 537-7 #### [facility] CLIA [id number] [address] [place] [address] [place] IgG subclass 3 (S) [Mass/Vol] 70.8 mg/dL Normal 21.8-176.1 Comment on above: Order Comment: Speci men Type: BLOOD SPECIMEN Ordering Facility: [facility] Address: [address] [place], [place] [address] Performed By: #### 4 537-7 #### [facility] CLIA [id number] [address] [place] [address] [place] IgG subclass 4 (S) [Mass/Vol] 1119.0 mg/dL High 3.9-86.4 Comment on above: Order Comment: Speci men Type: BLOOD SPECIMEN Ordering Facility: [facility] Address: [address] [place] [address] Performed By: #### 4 537-7 #### [facility] CLIA [id number] [address] [place], [place] [address] [facility] IMMUNOFIXATION SCREEN, SERUM on 12-17-2024 MPA RESULT No M protein is identified. Normal No M protein is identified. Comment on above: Order Comment: Speci men Type: BLOOD SPECIMEN [facility]ing Facility: [facility] Address: [address] [place] [address] Performed By: #### 1 1572-5, 99780-7, 35881-5, 21019-2, 5195-3 #### [facility] CLIA [id number] [address] [place], [place] [address] [facility] STAFF REVIEW (MPA) Reviewed by Madhu obrien M.D. [facility] Comment on above: Order Comment: Speci men Type: BLOOD SPECIMEN Ordering Facility: [facility] Address: [address] [place] [address] Performed By: #### 1 1572-5, 59145-6, 30058-9, 18836-5, 5195-3 #### [facility] CLIA [id number] [address] [place], [place] [address] [place] IMMUNOGLOBULINS,IGG,IGA,IGMo n 12-17-2024 IgA [Mass/Vol] 296 mg/dL Normal 70-400 Comment on above: Order Comment: Speci men Type: BLOOD SPECIMENOrdering Facility: [facility] Address: [address] [place], [place] [address] Performed By: #### S ERIMM ####[facility] [id number] [address] [place] IgG [Mass/Vol] 4558 mg/dL High 700-1600 Comment on above: Order Comment: Speci men Type: BLOOD SPECIMENOrdering Facility: [facility] Address: [address] [place] [address] Performed By: #### S ERIMM ####[facility] [id number] [place] [address] [place] IgM [Mass/Vol] 93 mg/dL Normal 40-230 Comment on above: Order Comment: Zena kang Type: BLOOD SPECIMENOrdering Facility: [facility] Address: [address] [place] [address] Performed By: #### S ERIMM ####[facility] [id number] [place] [address] [place] Jennifer-1 extractable nuclear Ab Qn (S)on 12-17-2024 JENNIFER 1 ANTIBODY QUAL Negative Normal Negative Comment on above: Order Comment: Zena kang Type: BLOOD SPECIMEN Ordering Facility: [facility] Address: [address] [place] [address] Result Comment: Anti -JENNIFER-1 antibody is used as an aid in diagnosis of polymyositis and dermatomyositis especially with pulmonary involvement. A negative result cannot rule out polymyositis or dermatomyositis. Clinical correlation is required. Test Methodology: Multiplex flow immunoassay. Performed By: #### 1 1572-5, 61907-7, 09138-5, 51789-0, 5195-3 #### [facility] CLIA [id number] [facility] [place] [address] [place] KAPPA/GALINDO,FREE,SERon 2024 Immunoglobulin light chains.kappa.free (S) [Mass/Vol] 165.2 mg/L High 3.3-19.4 Comment on above: Order Comment: Zena kang Type: BLOOD SPECIMENOrdering Facility: [facility] Address: [address] [place] [address] Result Comment: Rare ly, increased serum free light chains levels may not be detected or accurately quantified due to prozone phenomenon or in high viscosity samples using this immunoturbidimetric assay. Correlation with other laboratory results and clinical findings is recommended. The [place] Free Light Chain was performed using the Binding Site Optilite immunoturbidimetric method. Result obtained with different assay methods or kits cannot be used interchangeably. Performed By: #### K LFRS ####[facility] [id number] [place] [address] [place] Immunoglobulin light chains.kappa/Immuno globulin light chains.lambda (S) [Mass ratio] 1.62 Normal 0.26-1.65 Comment on above: Order Comment: Speci men Type: BLOOD SPECIMENOrdering Facility: [facility] Address: [address] [place] [address] Performed By: #### K LFRS ####[facility] [id number] [place] [address] [place] Immunoglobulin light chains.lambda.free [Mass/Vol] 102.0 mg/L High 5.7-26.3 Comment on above: Order Comment: Speci [facility] Type: BLOOD SPECIMENOrdering Facility: [facility] Address: [address] [place] [address] Result Comment: Rare ly, increased serum free light chains levels may not be detected or accurately quantified due to prozone phenomenon or in high viscosity samples using this immunoturbidimetric assay. Correlation with other laboratory results and clinical findings is recommended. The L[place] Free Light Chain was performed using the Binding Site Optilite immunoturbidimetric method. Result obtained with different assay methods or kits cannot be used interchangeably. Performed By: #### K LFRS ####[facility] [id number] [place] [address] [place] Rheumatoid fact SerPl-aCncon 12-17-2024 Rheumatoid factor Qn [IU]/mL Normal 0-15 Comment on above: Order Comment: Speci men Type: BLOOD SPECIMEN [facility]ing Facility: [facility] Address: [address] [place] [address] Performed By: #### 1 1572-5, 34349-6, 68576-7, 44382-4, 5195-3 #### [facility] CLIA [id number] [address] [place] [address] [place] Ribonucleoprotein extractabl e nuclear Ab Qn (S)on 12-17-2024 ANTI-ARCADE GAMES MECHANIC QUAL Negative Normal Negative Comment on above: Order Comment: Zena kang Type: BLOOD SPECIMEN [facility]ing Facility: [facility] Address: [address] [place] [address] Performed By: #### 1 1572-5, 86375-3, 27107-3, 47127-2, 5-3 #### [facility] CLIA [id number] [facility] [place] [address] [place] RIBOSOMAL ARCADE GAMES MECHANIC QUAL Negative Normal Negative Comment on above: Order Comment: Zena kang Type: BLOOD SPECIMENOrdering Facility: [facility] Address: [address] [place] [address] Result Comment: Anti -Ribosomal RNA (Ribosomal P) antibody is used as an aid in diagnosis of systemic autoimmune diseases especially systemic lupus erythematosus and mixed connective tissue disease. Cross-reactivity with Anti-montoya antibody is not uncommon. Clinical correlation is required. Test Methodology: Multiplex flow immunoassay. Performed By: #### A NCA, ANAIFR, 23343-6, 26459-8, 97669-4, 64315-9, 76533-4, 48415-4, 56497-0, 41987-1, 51063-3 ####[facility] [id number] [place] [address] [place] SCL-70 extractable nuclear I gG IA Qn (S)on 12-17-2024 SCLERODERMA AB QUAL Negative Normal Negative Comment on above: Order Comment: Saraii jorge luis Type: BLOOD SPECIMEN [facility]ing Facility: [facility] Address: [address] [place] [address] Performed By: #### 1 1572-5, 24766-4, 87947-9, 94138-4, 5194-3 #### [facility] CLIA [id number] [address] [place] [address] [place] SCLERODERMA IGG AB <0.2 Normal <1.0 Comment on above: Order Comment: Speci men Type: BLOOD SPECIMEN [facility]ing Facility: [facility] Address: [address] [place] [address] Result Comment: Scl- 70/Scleroderma antibody test is used as an aid in diagnosis of systemic sclerosis especially the diffuse cutaneous form. A negative result cannot rule out systemic sclerosis. The final interpretation should consider clinical picture and other test results such as anti-centromere antibody. Test Methodology: Multiplex flow immunoassay. Performed By: #### 1 1572-5, 60213-9, 15717-5, 78351-6, 5195-3 #### [facility] CLIA [id number] [address] [place] [address] [place] Sjogrens syndrome-A extracta ble nuclear Ab Qn (S)on 12-17-2024 SSA ANTIBODY QUAL Negative Normal Negative Comment on above: Order Comment: Zena kang Type: BLOOD SPECIMEN [facility]ing Facility: [facility] Address: [address] [place] [address] Performed By: #### 1 1572-5, 89847-6, 17936-6, 05910-3, 5194-3 #### [facility] CLIA [id number] [address] [place] [address] [place] Sjogrens syndrome-B extracta ble nuclear Ab Qn (S)on 12-17-2024 SSB ANTIBODY QUAL Negative Normal Negative Comment on above: Order Comment: Zena kang Type: BLOOD SPECIMENOrdering Facility: [facility] Address: [address] [place] [address] Performed By: #### A NCA, ANAIFR, 45508-7, 60374-4, 55185-9, 30825-9, 32741-0, 68100-7, 13136-3, 11936-8, 18774-4 ####[facility] [id number] [place] [address] [place] Montoya extractable nuclear Ig G Qn (S)on 12-17-2024 SM ANTIBODY QUAL Negative Normal Negative Comment on above: Order Comment: Zena kang Type: BLOOD SPECIMEN [facility]ing [facility]: [facility] Address: [address] [place] [address] Result Comment: Anti -Sm (Montoya) antibody is used as an aid in diagnosis of systemic lupus erythematosus and its presence is associated with renal disease. A negative result cannot rule out systemic lupus erythematosus. Clinical correlation is required. Test Methodology: Multiplex flow immunoassay. Performed By: #### 1 1572-5, 65261-8, 62828-3, 60117-8, 5195-3 #### [facility] CLIA [id number] [address] [place] [address] [place] cCP IgG SerPl-aCncon 025 Cyclic citrullinated peptide IgG Qn <15 Normal <20 Comment on above: Order Comment: Speci men Type: BLOOD SPECIMENOrdering Facility: [facility] Address: [address] [place] [address] Performed By: #### 3 3935-8 ####[facility] [id number] [place] [address] [place] ALLIED HEALTHon 12-16-2024 ALLIED HEALTH HNO ID: [id number] Author: BENTLEY MACDONALD, JUNIOR Service: Radiology Author Type: Technologist Type: Allied Health Filed: 12/16/2024 16:09 Note Text: Radiology Service Progress Note DATE OF SERVICE: December 16, 2024 TIME: 4:09 PM PATIENT IDENTITY VERIFICATION COMPLETED USING TWO (2) STANDARD IDENTIFIERS: Name and Date of confirmed by patient verbally. FALL SCREENING: Has the patient had 2 falls in the last year or 1 fall with injury or currently using an Ambulatory Assistive Device (Walker, Cane, Wheelchair, Crutches, etc.)? No PATIENT GENDER DATA: Assigned female at . status: : No status: NO. PATIENT RELEVANT IMPLANT DATA REVIEWED: Not Applicable PATIENT PRESENTS WITH AN IMPLANTABLE OR ATTACHED SCREW MACHINE OPERATOR: No ALLERGIES: Reviewed and unchanged CONTRAST ALLERGY: NO. EXAM: CT -CONTRAST INDUCED NEPHROPATHY RISK FACTORS: Patient age > 60 years CREATININE: Creatinine Date Value Ref Range Status 12/16/2024 0.79 0.58 - 0.96 mg/dL Final 11/30/2024 0.82 0.58 - 0.96 mg/dL Final 06/09/2024 0.87 0.58 - 0.96 mg/dL Final Estimated Glomerular Filtration Rate Date Value Ref Range Status 12/16/2024 87 >=60 mL/min/1.73m? Final Comment: Estimated Glomerular Filtration Rate (eGFR) is calculated using the 2020 CKD-EPI creatinine equation. This equation utilizes serum creatinine, sex, and age as parameters. The creatinine assay has traceable calibration to isotope dilution-mass spectrometry. Refer to KDIGO guidelines for clinical interpretation. In patients with unstable renal function, e.g. those with acute kidney injury, the eGFR may not accurately reflect actual GFR. eGFR- Date Value Ref Range Status 02/06/2021 >60 Final P.O.C.T. RESULTS: N/A December 16, 2024 TREATMENT: N/A PERIPHERAL IV DATA: Inpatient - refer to LDA documentation RADIOLOGY DEPARTMENT: CT; Exam(s) Completed: PE Study SIGNATURE: JUNIOR [place] PATIENT NAME: Jesus Zepeda DATE: December 16, 2024 TIME: 4:09 PM Normal [facility] CBC W Auto Differential pane l (Bld)on 12-16-2024 Basophils (Bld) [#/Vol] 0.03 10*3/uL Normal <0.11 [facility] Comment on above: Order Comment: Speci men Type: BLOOD SPECIMEN [facility] Facility: [facility] Address: [address] [place] [address] Performed By: #### 5 7021-8 #### [facility] CLIA [id number] [address] STATES OF [facility] Basophils/100 WBC (Bld) 0.6 % Normal [facility] Comment on above: Order Comment: Speci men Type: BLOOD SPECIMEN [facility]ing Facility: [facility] Address: [address] [place] [address] Performed By: #### 5 7021-8 #### [facility] CLIA [id number] [address] [place] Differential cell count method Nom (Bld) Auto Normal [facility] Comment on above: Order Comment: Speci men Type: BLOOD SPECIMEN [facility]ing Facility: [facility] Address: [address] [place] [address] Performed By: #### 5 7021-8 #### [facility] CLIA [id number] [address] [place] [address] [place] Eosinophils (Bld) [#/Vol] 0.17 10*3/uL Normal <0.46 [facility] Comment on above: Order Comment: Speci men Type: BLOOD SPECIMEN [facility]ing Facility: [facility] Address: [address] [place] [address] Performed By: #### 5 7021-8 #### [facility] CLIA [id number] [address] [place] [id number] [place] Eosinophils/100 WBC (Bld) 3.6 % Normal [facility] Comment on above: Order Comment: Speci men Type: BLOOD SPECIMEN [facility]ing Facility: [facility] Address: [address] [place] [address] Performed By: #### 5 7021-8 #### [facility] CLIA [id number] [address] [place] [address] [place] Erythrocyte distribution width (RBC) [Ratio] 16.1 % High 11.5-15.0 [facility] Comment on above: Order Comment: Speci men Type: BLOOD SPECIMEN [facility]ing Facility: [facility] Address: [address] [place] [address] Performed By: #### 5 7021-8 #### [facility] CLIA [id number] [address] [place] [address] [place] Hematocrit (Bld) [Volume fraction] 34.5 % Low 36.0-46.0 [facility] Comment on above: Order Comment: Speci men Type: BLOOD SPECIMEN [facility]ing Facility: [facility] Address: [address] [place] [address] Performed By: #### 5 7021-8 #### [facility] CLIA [id number] [address] [place] [address] [place] Hemoglobin (Bld) [Mass/Vol] 10.8 g/dL Low 11.5-15.5 [facility] Comment on above: Order Comment: Speci men Type: BLOOD SPECIMEN [facility]ing Facility: [facility] Address: [address] [place] [address] Performed By: #### 5 7021-8 #### [facility] CLIA [id number] [address] [place] [address] [place] Immature granulocytes (Bld) [#/Vol] 10*3/uL Normal <0.10 [facility] Comment on above: Order Comment: Speci men Type: BLOOD SPECIMEN Ordering Facility: [facility] Address: [address] [place] [address] Performed By: #### 5 7021-8 #### [facility] CLIA [id number] [address] [place] [address] [place] Immature granulocytes/100 WBC (Bld) 0.0 % Normal [facility] Comment on above: Order Comment: Speci men Type: BLOOD SPECIMEN Ordering Facility: [facility] Address: [address] [place] [address] Performed By: #### 5 7021-8 #### [facility] CLIA [id number] [address] [place] [address] [place] Lymphocytes (Bld) [#/Vol] 1.18 10*3/uL Normal 1.00-4.00 [facility] Comment on above: Order Comment: Speci men Type: BLOOD SPECIMEN [facility]ing Facility: [facility] Address: [address] [place] [address] Performed By: #### 5 7021-8 #### [facility] CLIA [id number] [address] [place] [id number] [facility] [place] Lymphocytes/100 WBC (Bld) 25.1 % Normal [facility] Comment on above: Order Comment: Speci men Type: BLOOD SPECIMEN Ordering Facility: [facility] Address: [address] [place] [address] Performed By: #### 5 7021-8 #### [facility] CLIA [id number] [address] [place] [address] [place] MCH (RBC) [Entitic mass] 27.1 pg Normal 26.0-34.0 [facility] Comment on above: Order Comment: Speci men Type: BLOOD SPECIMEN Ordering Facility: [facility] Address: [address] [place] [address] Performed By: #### 5 7021-8 #### [facility] CLIA [id number] [address] [place] MCHC (RBC) [Mass/Vol] 31.3 g/dL Normal 30.5-36.0 [facility] Comment on above: Order Comment: Speci men Type: BLOOD SPECIMEN [facility]ing Facility: [facility] Address: [address] [place] [address] Performed By: #### 5 7021-8 #### [facility] CLIA [id number] [address] [place] [address] MCV (RBC) [Entitic vol] 86.5 fL Normal 80.0-100.0 [facility] [facility] Comment on above: Order Comment: Speci men Type: BLOOD SPECIMEN Ordering Facility: [facility] Address: [address] [place] [address] Performed By: #### 5 7021-8 #### [facility] CLIA [id number] [address] [place] [address] [place] Monocytes (Bld) [#/Vol] 0.49 10*3/uL Normal <0.87 [facility] Comment on above: Order Comment: Speci men Type: BLOOD SPECIMEN Ordering Facility: [facility] Address: [address] [place] [address] Performed By: #### 5 7021-8 #### [facility] CLIA [id number] [address] Monocytes/100 WBC (Bld) 10.4 % Normal [facility] Comment on above: Order Comment: Speci men Type: BLOOD SPECIMEN Ordering Facility: [facility] Address: [address] [place] [address] Performed By: #### 5 7021-8 #### [facility] CLIA [id number] [address] [place] [address] [place] Neutrophils (Bld) [#/Vol] 2.83 10*3/uL Normal 1.45-7.50 [facility] Comment on above: Order Comment: Speci men Type: BLOOD SPECIMEN Ordering Facility: [facility] Address: [address] [place] [address] Performed By: #### 5 7021-8 #### [facility] CLIA [id number] [address] [place] [address] [place] Neutrophils/100 WBC (Bld) 60.3 % Normal [facility] Comment on above: Order Comment: Speci men Type: BLOOD SPECIMEN Ordering Facility: [facility] Address: [address] [place] [address] Performed By: #### 5 7021-8 #### [facility] CLIA [id number] [address] [place] [address] [place] Nucleated RBC (Bld) [#/Vol] Normal [facility] Comment on above: Order Comment: Speci men Type: BLOOD SPECIMEN Ordering Facility: [facility] Address: [address] [place] [address] Performed By: #### 5 7021-8 #### [facility] CLIA [id number] [address] [place] [address] [place] Nucleated RBC/100 WBC (Bld) [Ratio] Normal [facility] Comment on above: Order Comment: Speci men Type: BLOOD SPECIMEN Ordering Facility: [facility] Address: [address] [place] [address] Performed By: #### 5 7021-8 #### [facility] CLIA [id number] [address] [place] [address] [place] Platelet mean volume (Bld) [Entitic vol] 8.5 fL Low 9.0-12.7 [facility] Comment on above: Order Comment: Speci men Type: BLOOD SPECIMEN Ordering Facility: [facility] Address: [address] [place] [address] Performed By: #### 5 7021-8 #### [facility] CLIA [id number] [address] [place] [address] [place] Platelets (Bld) [#/Vol] 275 10*3/uL Normal 150-400 [facility] Comment on above: Order Comment: Speci men Type: BLOOD SPECIMEN Ordering Facility: [facility] Address: [address] [place] [address] Performed By: #### 5 7021-8 #### [facility] CLIA [id number] [address] [place] [address] [place] RBC (Bld) [#/Vol] 3.99 10*6/uL Normal 3.90-5.20 [facility] Comment on above: Order Comment: Speci men Type: BLOOD SPECIMEN Ordering Facility: [facility] Address: [address] [place] [address] Performed By: #### 5 7021-8 #### [facility] CLIA [id number] [address] [place] [address] [place] WBC (Bld) [#/Vol] 4.70 10*3/uL Normal 3.70-11.00 [facility] Comment on above: Order Comment: Speci men Type: BLOOD SPECIMEN Ordering Facility: [facility] Address: [address] [place] [address] Performed By: #### 5 7021-8 #### [facility] CLIA [id number] [address] [place] [address] [place] Basophils (Bld) [#/Vol] 0.05 10*3/uL Normal <0.11 [facility] Comment on above: Order Comment: Speci men Type: BLOOD SPECIMENOrdering Facility: [facility] Address: [address] [place] [address] Performed By: #### 5 7021-8 ####[facility]IA [id number] [facility] [address] [place] [address] [place] Basophils/100 WBC (Bld) 0.8 % Normal [facility] Comment on above: Order Comment: Speci men Type: BLOOD SPECIMENOrdering Facility: [facility] Address: [address] [place] [address] Performed By: #### 5 7021-8 ####[facility] LABCLIA [id number] [address], [facility] [place] Differential cell count method Nom (Bld) Auto Normal [facility] Comment on above: Order Comment: Speci men Type: BLOOD SPECIMENOrdering Facility: [facility] Address: [address] [place] [address] Performed By: #### 5 7021-8 ####[facility] LABCLIA [id number] [address], [place] [address] [place] Eosinophils (Bld) [#/Vol] 0.21 10*3/uL Normal <0.46 [facility] Comment on above: Order Comment: Speci men Type: BLOOD SPECIMENOrdering Facility: [facility] Address: [address] [place] [address] Performed By: #### 5 7021-8 ####[facility] LABCLIA [id number] [address], [place] [address] [place] Eosinophils/100 WBC (Bld) 3.5 % Normal [facility] Comment on above: Order Comment: Speci men Type: BLOOD SPECIMENOrdering Facility: [facility] Address: [address] [place] [address] Performed By: #### 5 7021-8 ####[facility]CLIA [id number] [address] [place] [address] [place] Erythrocyte distribution width (RBC) [Ratio] 16.4 % High 11.5-15.0 [facility] Comment on above: Order Comment: Speci men Type: BLOOD SPECIMENOrdering Facility: [facility] Address: [address] [place] [address] Performed By: #### 5 7021-8 ####[facility] LABCLIA [id number] [place] [address] [place] Hematocrit (Bld) [Volume fraction] 37.1 % Normal 36.0-46.0 [facility] Comment on above: Order Comment: Speci men Type: BLOOD SPECIMENOrdering Facility: [facility] Address: [address] [place] [address] Performed By: #### 5 7021-8 ####[facility] LABIA [id number] [place] [address] [place] Hemoglobin (Bld) [Mass/Vol] 11.7 g/dL Normal 11.5-15.5 [facility] Comment on above: Order Comment: Speci men Type: BLOOD SPECIMENOrdering Facility: [facility] Address: [address] [place] [address] Performed By: #### 5 7021-8 ####[facility] LABCLIA [id number] [place] [address] [place] Immature granulocytes (Bld) [#/Vol] 10*3/uL Normal <0.10 [facility] Comment on above: Order Comment: Speci men Type: BLOOD SPECIMENOrdering Facility: [facility] Address: [address] [place] [address] Performed By: #### 5 7021-8 ####[facility] LABCLIA [id number] [place] [address] [place] Immature granulocytes/100 WBC (Bld) 0.2 % Normal [facility] Comment on above: Order Comment: Speci men Type: BLOOD SPECIMENOrdering Facility: [facility] Address: [address] [place] [address] Performed By: #### 5 7021-8 ####[facility] LABCLIA [id number] [place] [address] [place] Lymphocytes (Bld) [#/Vol] 1.42 10*3/uL Normal 1.00-4.00 [facility] Comment on above: Order Comment: Speci men Type: BLOOD SPECIMENOrdering Facility: [facility] Address: [address] [place] [address] Performed By: #### 5 7021-8 ####[facility] LABIA [id number] [place] [address] [place] Lymphocytes/100 WBC (Bld) 23.9 % Normal [facility] Comment on above: Order Comment: Speci men Type: BLOOD SPECIMENOrdering Facility: [facility] Address: [address] [place] [address] Performed By: #### 5 7021-8 ####[facility] LABIA [id number] [place] [address] [place] MCH (RBC) [Entitic mass] 27.2 pg Normal 26.0-34.0 [facility] Comment on above: Order Comment: Speci men Type: BLOOD SPECIMENOrdering Facility: [facility] Address: [address] [place] [address] Performed By: #### 5 7021-8 ####[facility] LABIA [id number] [place] [address] [place] MCHC (RBC) [Mass/Vol] 31.5 g/dL Normal 30.5-36.0 [facility] Comment on above: Order Comment: Speci men Type: BLOOD SPECIMENOrdering Facility: [facility] Address: [address] [place] [address] Performed By: #### 5 7021-8 ####[facility] LABIA [id number] [place] [address] [place] MCV (RBC) [Entitic vol] 86.3 fL Normal 80.0-100.0 [facility] Comment on above: Order Comment: Speci men Type: BLOOD SPECIMENOrdering Facility: [facility] Address: [address] [place] [address] Performed By: #### 5 7021-8 ####[facility] LABCLIA [id number] [place] [id number] [place] Monocytes (Bld) [#/Vol] 0.57 10*3/uL Normal <0.87 [facility] Comment on above: Order Comment: Speci men Type: BLOOD SPECIMENOrdering Facility: [facility] Address: [address] [place] [address] Performed By: #### 5 7021-8 ####[facility] LABCLIA [id number] [place] [address] [place] Monocytes/100 WBC (Bld) 9.6 % Normal [facility] Comment on above: Order Comment: Speci men Type: BLOOD SPECIMENOrdering Facility: [facility] Address: [address] [place] [address] Performed By: #### 5 7021-8 ####[facility] LABCLIA [id number] [place] [address] [place] Neutrophils (Bld) [#/Vol] 3.67 10*3/uL Normal 1.45-7.50 [facility] Comment on above: Order Comment: Speci men Type: BLOOD SPECIMENOrdering Facility: [facility] Address: [address] [place] [address] Performed By: #### 5 7021-8 ####[facility] LABCLIA [id number] [place] [address] [place] Neutrophils/100 WBC (Bld) 62.0 % Normal [facility] Comment on above: Order Comment: Speci men Type: BLOOD SPECIMENOrdering Facility: [facility] Address: [address] [place] [address] Performed By: #### 5 7021-8 ####[facility] LABCLIA [id number] [address] [address] [place] Nucleated RBC (Bld) [#/Vol] 10*3/uL Normal <0.01 [facility] Comment on above: Order Comment: Speci men Type: BLOOD SPECIMENOrdering Facility: [facility] Address: [address] [place] [address] Performed By: #### 5 7021-8 ####[facility] LABCLIA [id number] [place] [address] [place] Nucleated RBC/100 WBC (Bld) [Ratio] 0.0 /100 WBC Normal [facility] Comment on above: Order Comment: Speci men Type: BLOOD SPECIMENOrdering Facility: [facility] Address: [address] [place] [address] Performed By: #### 5 7021-8 ####[facility] LABIA [id number] [place] [address] [place] Platelet mean volume (Bld) [Entitic vol] 9.9 fL Normal 9.0-12.7 [facility] Comment on above: Order Comment: Speci men Type: BLOOD SPECIMENOrdering Facility: [facility] Address: [address] [place] [address] Performed By: #### 5 7021-8 ####[facility]IA [id number] [place] [address] [place] Platelets (Bld) [#/Vol] 313 10*3/uL Normal 150-400 [facility] Comment on above: Order Comment: Speci men Type: BLOOD SPECIMENOrdering Facility: [facility] Address: [address] [place] [address] Performed By: #### 5 7021-8 ####[facility] LABCLIA [id number] [place] [address] [place] RBC (Bld) [#/Vol] 4.30 10*6/uL Normal 3.90-5.20 [facility] Comment on above: Order Comment: Speci men Type: BLOOD SPECIMENOrdering Facility: [facility] Address: [address] [place] [address] Performed By: #### 5 7021-8 ####[facility] LABCLIA [id number] [place] [address] [place] WBC (Bld) [#/Vol] 5.93 10*3/uL Normal 3.70-11.00 [facility] Comment on above: Order Comment: Speci men Type: BLOOD SPECIMENOrdering Facility: [facility] Address: [address] [place] [address] Performed By: #### 5 7021-8 ####[facility] LABCLIA [id number] [place] [id number] [place] CNPNon 12-16-2024 CNPN Normal [facility] CTA CHEST (NON GATED) W IVCO N PEon 12-16-2024 CTA CHEST (NON GATED) W IVCON PE * * *Final Report* * * DATE OF EXAM: Dec 16 2024 4:11PM [facility] [place] - CTA CHEST (NON GATED) W IVCON PE / PROCEDURE REASON: Primary pulmonary HTN * * * * Physician Interpretation * * * * EXAMINATION: CHEST CTA (NON GATED) WITH CONTRAST (PULMONARY EMBOLISM PROTOCOL) Clinical History: Sufficient clinical suspicion of pulmonary embolus. Pulmonary hypertension, shortness of breath, elevated d-dimer Technique: Spiral CT acquisition of the chest from the thoracic inlet to the upper abdomen following IV contrast. Axial 1 and 3 mm thick slices plus coronal and sagittal reformatted images. MQ: CTCP_5 Contrast: 100 mL Omnipaque [address] Radiation dose: Integrated Dose-length product (DLP) for this visit = 525.14 mGy*cm CT Dose Reduction Employed: Automated exposure control(AEC) and iterative recon CTA: Post-processed images (Maximum intensity Projection (MIP), Volume-rendered (VR), or Surface shaded display images (SSD) were created, reviewed and archived. Comparison: Thyroid ultrasound 11/03/2018, right upper abdominal ultrasound 09/27/2019 RESULT: Limitations: Suboptimal study due to respiratory motion with or without non-ideal pulmonary arterial enhancement. Evaluation for thromboembolic disease: - Right heart chambers: No thromboembolic disease. - Main pulmonary arteries: No thromboembolic disease. - Lobar pulmonary arteries: No thromboembolic disease. - Segmental pulmonary arteries: Generally nondiagnostic. No obvious vascular filling defects - Subsegmental pulmonary arteries: Nondiagnostic - Additional pulmonary artery findings: Dilated main pulmonary artery, caliber axial plane 3.6 cm Lines, tubes, and devices: No intrathoracic Lung parenchyma and airways: Patent central airways. Relative to lung findings described next, peripheral bronchi generally unremarkable. Bilateral diffuse patchy pulmonary intermixed mosaic perfusion lung hypodensity, normal lung density, groundglass opacity, mild intralobular reticulation associated with some of the groundglass opacities, and several small nodular consolidative opacities. Hypoexpanded chest. Incidental postinflammatory calcified pulmonary nodule basilar left lower lobe. No conspicuous interlobular septal thickening. Pleural space: No pleural effusion Lower neck, lymph nodes, and mediastinum: Thoracic adenopathy including mild to moderate central mediastinal adenopathy (i.e. aortic prevascular, aorticopulmonary, low left paratracheal, low right paratracheal, subcarinal, inferior right pulmonary ligament), mild to moderate adenopathy high right paratracheal and bilateral luis enrique, and mild to moderate adenopathy bilateral axilla. Heart, pericardium, and thoracic vessels: No pericardial effusion. Multichamber borderline to mild cardiomegaly. No thoracic aortic aneurysm. Three-vessel coronary artery calcifications Bones and soft tissues: No acute osseous abnormality. Upper abdomen: Mild splenomegaly, axial dimension approximately 13.5 cm. Mildly hyperplastic adrenal glands. Localizer images: Frontal and lateral images. Hypoexpanded chest accentuating mediastinal and hilar contours and pulmonary vessels and markings. Bowel gas pattern nonobstructive. External artifacts and devices. IMPRESSION: 1. Study limitations. No CT evidence of central pulmonary embolism. Study nondiagnostic peripheral to the lobar arteries but no obvious vascular filling defects. Dilated main pulmonary artery possibly signifying pulmonary artery hypertension. 2. Multichamber borderline to mild cardiomegaly 3. Diffuse bilateral patchy mixed-morphology lung aeration abnormality, differential diagnosis severe interstitial pneumonia or noninfectious lung inflammatory disorder including lung toxicity and hypersensitivity reactions. Clinical follow-up indicated. 4. Significant thoracic adenopathy detailed above. Clinical follow-up indicated. CLINICALLY ACTIONABLE RESULT 5. Mild splenomegaly 6. Mild adrenal hyperplasia ACTIONABLE RESULT: FOLLOW-UP Acuity: Actionable Findings: Lymphatic System Routing Code: Lymph_1 Recommendation: Time Frame: Additional evaluation as described in the impression COMMUNICATION: Results will be communicated with the ordering provider via [employer] staff message or phone message by [employer] within 2 business days of report finalization. --END OF FINDING-- [employer]: P[employer] Transcribe Date/Time: Dec 16 2024 5:15P Dictated by : PAM JONES MD This examination was interpreted and the report reviewed and electronically signed by: PAM JONES MD on Dec 16 2024 5:52PM EST [id number] ACTIONABLE Invalid Interpretation Code [facility] Comprehensive metabolic 2000 panelon 12-16-2024 Albumin [Mass/Vol] 3.2 g/dL Low 3.9-4.9 [facility] Comment on above: Order Comment: Zena kang Type: BLOOD SPECIMEN [facility]ing Facility: [facility] Address: [address] [place] [address] Performed By: #### 3 3762-6, 91813-4, 99313-8 #### [facility] CLIA [id number] [address] STATES OF [facility] ALP [Catalytic activity/Vol] 60 U/L Normal 34-123 [facility] Comment on above: Order Comment: Zena kang Type: BLOOD SPECIMEN [facility]ing Facility: [facility] Address: [address] [place] [address] Performed By: #### 3 3762-6, 22197-4, 11782-6 #### [facility] CLIA [id number] [address] [place] ALT With P-5'-P [Catalytic activity/Vol] 6 U/L Low 7-38 [facility] Comment on above: Order Comment: Zena kang Type: BLOOD SPECIMEN [facility]ing Facility: [facility] Address: [address] [place] [address] Performed By: #### 3 3762-6, 56304-8, 81953-3 #### [facility] CLIA [id number] [address] [place] [address] [place] Anion gap [Moles/Vol] 12 mmol/L Normal 8-15 [facility] Comment on above: Order Comment: Speci men Type: BLOOD SPECIMEN [facility]ing Facility: [facility] Address: [address] [place] [address] Performed By: #### 3 3762-6, 25190-6, 46894-8 #### [facility] CLIA [id number] [address] [place] [address] [place] AST With P-5'-P [Catalytic activity/Vol] 17 U/L Normal 13-35 [facility] Comment on above: Order Comment: Speci men Type: BLOOD SPECIMEN [facility]ing Facility: [facility] Address: [address] [place] [address] Performed By: #### 3 3762-6, 22638-0, 66012-8 #### [facility] CLIA [id number] [address] [place] [address] [place] Bilirubin [Mass/Vol] 0.5 mg/dL Normal 0.2-1.3 [facility] Comment on above: Order Comment: Speci men Type: BLOOD SPECIMEN [facility]ing Facility: [facility] Address: [address] [place] [address] Performed By: #### 3 3762-6, 09963-8, 85018-3 #### [facility] CLIA [id number] [address] [place] [address] [place] Calcium [Mass/Vol] 9.8 mg/dL Normal 8.5-10.2 [facility] Comment on above: Order Comment: Speci men Type: BLOOD SPECIMEN [facility]ing Facility: [facility] Address: [address] [place] [address] Performed By: #### 3 3762-6, 20332-6, 24064-0 #### [facility] CLIA [id number] [address] [place] [address] [place] Chloride [Moles/Vol] 102 mmol/L Normal 98-107 [facility] Comment on above: Order Comment: Zena kang Type: BLOOD SPECIMEN [facility]ing Facility: [facility] Address: [address] [place] [address] Performed By: #### 3 3762-6, 27779-5, 17873-8 #### [facility] CLIA [id number] [address] [place] [address] [place] CO2 [Moles/Vol] 20 mmol/L Low 22-30 [facility] Comment on above: Order Comment: Speci men Type: BLOOD SPECIMEN [facility]ing Facility: [facility] Address: [address] [place] [address] Performed By: #### 3 3762-6, 96981-5, 65764-2 #### [facility] CLIA [id number] [address] [place] [address] [place] Creatinine [Mass/Vol] 0.79 mg/dL Normal 0.58-0.96 [facility] Comment on above: Order Comment: Specdenver men Type: BLOOD SPECIMEN [facility]ing Facility: [facility] Address: [address] [place] [address] Performed By: #### 3 3762-6, 02033-8, 65336-8 #### [facility] CLIA [id number] [address] [place] [address] [place] eGFRcr SerPlBld CKD-EPI 2020 87 mL/min/1.73m??? Normal >=60 [facility] Comment on above: Order Comment: Specdenver kang Type: BLOOD SPECIMEN [facility]ing Facility: [facility] Address: [address] [place] [address] Result Comment: Daisha mated Glomerular Filtration Rate (eGFR) is calculated using the 2020 CKD-EPI creatinine equation. This equation utilizes serum creatinine, sex, and age as parameters. The creatinine assay has traceable calibration to isotope dilution-mass spectrometry. Refer to KDIGO guidelines for clinical interpretation. In patients with unstable renal function, e.g. those with acute kidney injury, the eGFR may not accurately reflect actual GFR. Performed By: #### 3 3762-6, 01582-5, 95002-2 #### [facility] CLIA [id number] [address] [place] [address] [place] Potassium [Moles/Vol] 4.5 mmol/L Normal 3.7-5.1 [facility] Comment on above: Order Comment: Speci men Type: BLOOD SPECIMEN [facility]ing Facility: [facility] Address: [address] [place] [address] Performed By: #### 3 3762-6, 50034-6, 53060-5 #### [facility] CLIA [id number] [address] [place] [address] [place] Protein [Mass/Vol] 9.5 g/dL High 6.3-8.0 [facility] Comment on above: Order Comment: Speci men Type: BLOOD SPECIMEN Ordering Facility: [facility] Address: [address] [place] [address] Performed By: #### 3 3762-6, 01468-7, 30838-8 #### [facility] CLIA [id number] [address] [place] [address] [place] Sodium [Moles/Vol] 134 mmol/L Low 136-144 [facility] Comment on above: Order Comment: Speci men Type: BLOOD SPECIMEN Ordering Facility: [facility] Address: [address] [place] [address] Performed By: #### 3 3762-6, 43081-7, 36183-5 #### [facility] CLIA [id number] [address] [place] [address] [place] Urea nitrogen [Mass/Vol] 18 mg/dL Normal 7-21 [facility] Comment on above: Order Comment: Speci men Type: BLOOD SPECIMEN [facility]ing Facility: [facility] Address: [address] [place] [address] Performed By: #### 3 3762-6, 02125-0, 59940-1 #### [facility] CLIA [id number] [address] [place] [address] [place] D dimer FEU PPP-mCncon 12-16 Fibrin D-dimer FEU (PPP) [Mass/Vol] 2280 ng/mL FEU High <500 [facility] Comment on above: Order Comment: Speci men Type: BLOOD SPECIMENOrdering Facility: [facility] Address: [address] [place] [address] Performed By: #### 4 8065-7 ####[facility] [id number] [place] [address] [place] D-DIMERon 12-16-2024 Fibrin D-dimer FEU (PPP) [Mass/Vol] 2280 High NINF [facility] ECG COMPLETEon 12-16-2024 ECG COMPLETE Ventricular Rate : 7 1 BPM Atrial Rate : 71 BPM P-R Interval : 144 ms QRS Duration : 140 ms Q-T Interval : 412 ms QTC Calculation(Bazett) : 447 ms Calculated P [place] : -24 degrees Calculated R [place] : -27 degrees Calculated T [place] : -13 degrees NORMAL SINUS RHYTHM with PAC RIGHT BUNDLE BRANCH BLOCK MINIMAL VOLTAGE CRITERIA FOR LVH, MAY BE NORMAL VARIANT ( R in aVL ) INFERIOR INFARCT (CITED ON OR BEFORE 26-Jan-2024) T WAVE ABNORMALITY, CONSIDER LATERAL ISCHEMIA ABNORMAL ECG WHEN COMPARED WITH ECG OF 26-Jan-2024 10:23, T WAVE INVERSION NOW EVIDENT IN LATERAL LEADS Confirmed by SIMONE MANRIQUEZ MD ([id number]) on 12/18/2024 12:08:48 PM NAME : JESUS ZEPEDA PID : [id number] : 1965 Gender : Female Race : ORD : [id number] Procedure Date : Dec 16 2024 15:42:28 Edit Date : Dec 18 2024 12:08:54 Diagnosis: NORMAL SINUS RHYTHM with PAC RIGHT BUNDLE BRANCH BLOCK MINIMAL VOLTAGE CRITERIA FOR LVH, MAY BE NORMAL VARIANT ( R in aVL ) INFERIOR INFARCT (CITED ON OR BEFORE 26-Jan-2024) T WAVE ABNORMALITY, CONSIDER LATERAL ISCHEMIA ABNORMAL ECG WHEN COMPARED WITH ECG OF 26-Jan-2024 10:23, T WAVE INVERSION NOW EVIDENT IN LATERAL LEADS Confirmed by SIMONE MANRIQUEZ MD ([id number]) on 12/18/2024 12:08:48 PM Test Reason : Chest Pain Location : 191 : [facility] ED Overread By : SIMONE MANRIQUEZ MD Edited By : SIMONE MANRIQUEZ MD Referred By : , Acquired by : PHOENIX SUH [facility] ED NOTEon 12-16-2024 ED NOTE HNO ID: [id number] Author: DIANDRA BRAR, RN Service: Emergency Medicine Author Type: Registered Nurse Type: ED Notes Filed: 12/16/2024 22:24 Note Text: [facility] here, chart and report provided to transport staff per Dr. Hood. [facility] ED NOTE HNO ID: [id number] Author: VINEET REYES RN Service: ? Author Type: Registered Nurse Type: ED Notes Filed: 12/16/2024 22:11 Note Text: Daughter and son updated with pts room number / phone number. [facility] ED NOTE HNO ID: [id number] Author: VINEET REYES RN Service: ? Author Type: Registered Nurse Type: ED Notes Filed: 12/16/2024 21:52 Note Text: Second attempt to contact floor unsuccessful. Line rang 10x prior to hanging up. Will attempt again in 5 minutes. [facility] ED NOTE HNO ID: [id number] Author: VINEET REYES RN Service: ? Author Type: Registered Nurse Type: ED Notes Filed: 12/16/2024 21:41 Note Text: Attempted to contact floor for report; no answer. Will attempt again in 5 minutes. [facility] ED NOTE HNO ID: [id number] Author: NANCY BOUCHER, PHAM Service: Emergency Medicine Author Type: Registered Nurse Type: ED Notes Filed: 12/16/2024 21:32 Note Text: [facility] [id number]-793/ [facility] eta 2230 [facility] ED NOTE HNO ID: [id number] Author: VINEET REYES, PHAM Service: ? Author Type: Registered Nurse Type: ED Notes Filed: 12/16/2024 19:14 Note Text: Pt assisted to restroom; urine not collected. [facility] ED NOTE HNO ID: [id number] Author: VINEET REYES RN Service: ? Author Type: Registered Nurse Type: ED Notes Filed: 12/16/2024 18:18 Note Text: Pt currently on phone with son and daughter. Family updated as to patients status. Pt attempting to resolve issue of caretakers for dogs at this time. [facility] ED NOTE HNO ID: [id number] Author: VINEET REYES RN Service: ? Author Type: Registered Nurse Type: ED Notes Filed: 12/16/2024 17:17 Note Text: Pts traffic monitor specialist alarming - pt reports no longer wanting to sit in bed, pt removed oxygen. Pt asked to minimally wear oxygen, pt agreed. Dr. Hood notified. [facility] ED NOTE HNO ID: [id number] Author: VINEET REYES RN Service: ? Author Type: Registered Nurse Type: ED Notes Filed: 12/16/2024 17:06 Note Text: Pt asking when she will be able to go home. Pt advised that we are waiting on CT results; pt advised the likelihood of needing admission - pt stated I do not have anyone to take care of my dogs. She reports that she has no one. [facility] ED NOTE HNO ID: [id number] Author: VINEET REYES RN Service: ? Author Type: Registered Nurse Type: ED Notes Filed: 12/16/2024 15:29 Note Text: Blood work completed this am; Dr. Tiwari (pts PCP) contacted pt to go to nearest ED due to abnormal labs. Pt states He might be concerned that there is a blood clot in the lung. Reports using inhalers last few days due to Shortness of Breath. In ED, patients SpO2 on room air 82%. Pt denies CP. [facility] ED PROV NOTEon 12-16-2024 ED PROV NOTE HNO ID: [id number] Author: ANKUR HOOD MD Service: Emergency Medicine Author Type: Physician Type: ED Provider Notes Filed: 12/16/2024 19:57 Note Text: ED Provider Note Patient Name: Jesus Zepeda : 1965 SERVICE DATE: 12/16/24 History Patient presents with: Blood Test Abnormality HPI Patient is a 59-year-old female with history as below, pertinent history of diabetes, hypothyroid, pulmonary hypertension sent in at the direction of her primary care provider for elevated outpatient D-dimer Patient saw her primary care provider on the sixth of this month for outpatient follow-up with reports of dyspnea and lower extremity swelling. She does has history of chronic diastolic congestive heart failure, right-sided heart failure. Also has history of COPD with documented history of chronic hypoxemic respiratory failure. Does not wear home oxygen by patient report but appears that she did previously until her insurance stopped covering it. Patient had labs and echo done outpatient. The echo done yesterday showed moderate pulmonary hypertension. There was concern for possible PE given patient's personal history of sedated outpatient D-dimer today that was found to be positive. Patient was referred here for CT imaging. PAST MEDICAL HISTORY Diagnosis Date - Abnormal Pap smear of cervix 09/2020 lgsil/+HPV 11/14 colp benign 08/18 ascus/+HPV 09/17 colp LGSIL - Adjustment disorder with depressed mood - Asthma (HCC) - Chronic hypoxemic respiratory failure (HCC) - COPD (chronic obstructive pulmonary disease) (HCC) - Esophageal reflux - Essential hypertension, benign - Generalized anxiety disorder - GI bleed - History of transfusion - HLD (hyperlipidemia) - Hx of blood transfusion reaction - Hypertension - Kidney stones - Menorrhagia - Migraine without aura - Morbid obesity (HCC) - Nonspecific abnormal results of other endocrine function study 06/2004 Benign biopsy. Abnormally high thyroid globulin - HARMONY (obstructive sleep apnea) - Pulmonary emboli (HCC) 09/2013 Bilateral on CTA chest. - Scleritis - Type II or unspecified type diabetes mellitus without mention of complication, not stated as uncontrolled - Uterine prolapse PAST SURGICAL HISTORY Procedure Laterality Date - CARPAL TUNNEL Right 11/2015 - CHOLECYSTECTOMY 11/15/2019 Dr. Ferguson - COMBO ANT/POST COLPORR+ENTEROCELE 02/02/2024 - CYSTOMETROGRAM 12/29/2023 - CYSTOSCOPY 12/29/2023 - EGD 03/07/2020 Dr Ferguson - THYROID BIOPSY US 11/2015 - THYROIDECTOMY TOTAL/COMPLETE Left 12/13/2018 Dr Ferguson - TOTAL THYROID LOBECTOMY UNI W/WO ISTHMUSECTOMY 01/15/2007 right - TUBAL LIGATION 1988 - VAGINAL HYSTERECTOMY 02/02/2024 - XCAPSL CTRC RMVL INSJ IO LENS PROSTH W/O ECP Right 06/2015 Cataract Extraction with PC IOL - XCAPSL CTRC RMVL INSJ IO LENS PROSTH W/O ECP Left 07/2015 Cataract Extraction with PC IOL FAMILY HISTORY Problem Relation Age of Onset - Hypertension Mother - Diabetes Mother - Thyroid Mother thyroidectomy - other (heart murmur) Mother - Heart Attack Father - Diabetes Brother - Hypertension Brother - No Known Problems Brother - Pneumothorax Maternal Grandmother - No Known Problems Daughter - No Known Problems Son - Breast Cancer Maternal Aunt Metastatic to bone - other (Other) Other No DVT or PE. Social History[1] ALLERGIES Allergen Reactions - Latex Itching - Prinivil [Lisinopri* Cough - Zanaflex [Tizanidin* Shortness of Breath Review of Systems Per HPI Physical Exam Vitals BP Pulse Temp Temp src Resp SpO2 Weight Height 12/16/24 1527 12/16/24 1527 12/16/24 1525 12/16/24 1525 12/16/24 1527 12/16/24 1527 12/16/24 1527 -- 187/84 84 36.3 ?C (97.3 ?F) Temporal 18 (!) 82 % 97.5 kg (215 lb) Physical Exam Patient is slightly dyspneic on arrival but is overall in no obvious distress. Hemodynamically stable and afebrile Heart RRR w/ murmur noted. Distal pulses intact Lungs crackles to bases bilaterally. She is dyspneic with speech, pulse oximetry of 75% on room air. Abd obese, soft, NT, ND Patient moves all 4 extremities spontaneously and without deficit She has chronic lymphedema with overlying skin changes and seeping noted to legs bilaterally and symmetrically. No evidence of superimposed infection Diagnostic Testing ED Labs Ordered and Reviewed - No data to display Procedures ED Course / Clinical Impression Clinical Impressions as of 12/16/241952 Pulmonary hypertension (HCC) Acute on chronic heart failure, unspecified heart failure type (HCC) Interstitial pneumonia (HCC) Acute hypoxic respiratory failure (HCC) Normocytic anemia Lymphadenopathy MDM / Disposition / Plan Patient is a 59-year-old female with history as above presenting with complaints of shortness of breath, abnormal outpatient labs. History and exam as above. Medical record reviewed. Additional encounters revie (more content not included)... Normal [facility] Ferritin SerPl-mCncon 2024 Ferritin [Mass/Vol] 40.7 ng/mL Normal 14.7-205.1 [facility] Comment on above: Order Comment: Speci men Type: BLOOD SPECIMENOrdering Facility: [facility] Address: [address] [place] [address] Performed By: #### 3 024-7, 3051-0, 37605-6, 2276-4 ####[facility] [id number] [place] [address] [place] Fibrin D-dimer FEU (PPP) [Ma ss/Vol]on 12-16-2024 D Dimer Age-related Cutoff 580 ng/mL FEU [facility] Interpretation and review of laboratory results Abnormal [facility] 500 ng/mL FEU is the D Dimer cutoff to exclude DVT (deep vein thrombosis) and PE (pulmonary embolism) in patients with a low pre test probability. Supplemental Comment: In patients over 50 years with a low pre test probability for DVT and/or PE, an age adjusted D dimer cutoff can be calculated as [age x 10] ng/mL FEU. For example, a patient of 88 years would have an age adjusted D dimer cutoff of 880 ng/mL FEU. For patients with a suspected DVT, a D dimer level below 500 ng/mL FEU has a negative predictive value of >98.9%, a sensitivity of >96.9% and a specificity of >35.7%. For patients with a suspected PE, a D dimer level below 500 ng/mL FEU has a negative predictive value of >98.5%, and a sensitivity of >96.5% and a specificity of >38.8%. Reference: Lazaro M, et al. MITCH 2014 311:1117 and Van Laura N, et al. Mylene Int Med 2016 165:253. [facility] D DIMER AGE-RELATED CUTOFF 580 ng/mL FEU Normal [facility] Comment on above: Order Comment: Speci men Type: BLOOD SPECIMENOrdering Facility: [facility] Address: [address] [place] [address] Performed By: #### 4 8065-7 ####[facility] LABCLIA [id number] [place], [place] [id number] [place] [address] OF [facility] Gas + CO Pnl BldVon 12-17-19 Glucose [Mass/Vol] 112 mg/dL High 74-99 [facility] Comment on above: Order Comment: Zena kang Type: VENOUS BLOOD SPECIMEN [facility]ing Facility: [facility] Address: [address] [place] [address] Performed By: #### 2 4344-4 #### [facility] CLIA [id number] [address] [place] [address] Order Comment: Zena kang Type: BLOOD SPECIMEN Ordering Facility: [facility] Address: [address] [place] [address] Result Comment: The [place] Diabetes Association (ADA) provides guidance for cutoff values for fasting glucose and random glucose. The ADA defines fasting as no caloric intake for at least 8 hours. Fasting plasma glucose results between 100 to 125 mg/dL indicate increased risk for diabetes (prediabetes). Fasting plasma glucose results greater than or equal to 126 mg/dL meet the criteria for diagnosis of diabetes. In the absence of unequivocal hyperglycemia, results should be confirmed by repeat testing. In a patient with classic symptoms of hyperglycemia or hyperglycemic crisis, random plasma glucose results greater than or equal to 200 mg/dL meet the criteria for diagnosis of diabetes. Reference: Standards of Medical Care in Diabetes 2016, [place] Diabetes Association. Diabetes Care. 2016.39(Suppl 1). Performed By: #### 3 3762-6, 25586-4, 62439-5 #### [facility] [place] [facility] CLIA [id number] [address] [place] [address] [place] Gas and Carbon monoxide pane l (BldV)on 12-16-2024 BASE DEFICIT, VENOUS -1 mmol/L Normal -2-0 [facility] Comment on above: Order Comment: Zena kang Type: VENOUS BLOOD SPECIMEN Ordering Facility: [facility] Address: [address] [place] [address] Performed By: #### 2 4344-4 #### [facility] [place] [facility] CLIA [id number] [address] [place] [address] [place] Body temperature 98.6 [degF] Normal [facility] Comment on above: Order Comment: Speci men Type: VENOUS BLOOD SPECIMEN [facility]ing Facility: [facility] Address: [address] [place] [address] Performed By: #### 2 4344-4 #### [facility] [place] [facility] CLIA [id number] [address] [place] [address] [facility] [place] Calcium.ionized (Bld) [Mass/Vol] 1.29 mmol/L Normal 1.08-1.30 [facility] Comment on above: Order Comment: Speci men Type: VENOUS BLOOD SPECIMEN Ordering Facility: [facility] Address: [address] [place] [address] Performed By: #### 2 4344-4 #### [facility] [place] CLIA [id number] [address] Calcium.ionized adjusted to pH 7.4 (BldA) [Moles/Vol] 1.28 mmol/L Normal 1.08-1.30 [facility] Comment on above: Order Comment: Speci men Type: VENOUS BLOOD SPECIMEN Ordering Facility: [facility] Address: [address] [place] [address] Performed By: #### 2 4344-4 #### [facility] [place] [facility] CLIA [id number] [address] [place] [address] [place] Carboxyhemoglobin (BldV) [Mass fraction] 2.5 % High 0.0-2.0 [facility] Comment on above: Order Comment: Speci men Type: VENOUS BLOOD SPECIMEN Ordering Facility: [facility] Address: [address] [place] [address] Result Comment: Carb oxyhemoglobin Reference Range for Smokers: 2.0-8.0% Performed By: #### 2 4344-4 #### [facility] [place] [facility] CLIA [id number] [address] [place] [address] [facility] [place] Chloride [Moles/Vol] 106 mmol/L High 97-105 [facility] Comment on above: Order Comment: Speci men Type: VENOUS BLOOD SPECIMEN Ordering Facility: [facility] Address: [address] [place] [address] Performed By: #### 2 4344-4 #### [facility] [place] [facility] CLIA [id number] [address] [place] [address] [place] CO2 (BldV) [Partial pressure] 41 mm[Hg] Low 42-55 [facility] Comment on above: Order Comment: Speci men Type: VENOUS BLOOD SPECIMEN Ordering Facility: [facility] Address: [address] [place] [address] Performed By: #### 2 4344-4 #### [facility] [place] [facility] CLIA [id number] [address] [place] [address] [place] HCO3 (Bld) [Moles/Vol] 25 mmol/L Normal 24-28 [facility] Comment on above: Order Comment: Speci men Type: VENOUS BLOOD SPECIMEN Ordering Facility: [facility] Address: [address] [place] [address] Performed By: #### 2 4344-4 #### [facility] [place] [facility] CLIA [id number] [address] [place] [address] [place] Hematocrit (Bld) [Volume fraction] 34.3 % Low 36.0-46.0 [facility] Comment on above: Order Comment: Speci men Type: VENOUS BLOOD SPECIMEN Ordering Facility: [facility] Address: [address] [place] [address] Performed By: #### 2 4344-4 #### [facility] [place] [facility] CLIA [id number] [address] [place] [address] [place] Hemoglobin (Bld) [Mass/Vol] 11.2 g/dL Low 11.5-15.5 [facility] Comment on above: Order Comment: Speci men Type: VENOUS BLOOD SPECIMEN Ordering Facility: [facility] Address: [address] [place] [address] Performed By: #### 2 4344-4 #### [facility] [place] [facility] CLIA [id number] [address] [place] [address] [place] Lactate [Moles/Vol] 1.5 mmol/L Normal 0.5-2.2 [facility] Comment on above: Order Comment: Speci men Type: VENOUS BLOOD SPECIMEN Ordering Facility: [facility] Address: [address] [place] [address] Performed By: #### 2 4344-4 #### [facility] [place] [facility] CLIA [id number] [address] [place] [address] [place] Methemoglobin (Bld) [Mass fraction] % Normal 0.0-1.5 [facility] Comment on above: Order Comment: Speci men Type: VENOUS BLOOD SPECIMEN Ordering Facility: [facility] Address: [address] [place] [address] Performed By: #### 2 4344-4 #### [facility] [place] [facility] CLIA [id number] [address] [place] [address] [place] Oxygen (BldV) [Partial pressure] 47 mm[Hg] High 35-45 [facility] Comment on above: Order Comment: Speci men Type: VENOUS BLOOD SPECIMEN Ordering Facility: [facility] Address: [address] [place] [address] Performed By: #### 2 4344-4 #### [facility] [place] [facility] CLIA [id number] [address] [place] [address] [place] Oxygen saturation in Venous blood 78 % Normal 60-85 [facility] Comment on above: Order Comment: Speci men Type: VENOUS BLOOD SPECIMEN Ordering Facility: [facility] Address: [address] [place] [address] Performed By: #### 2 4344-4 #### [facility] [place] [facility] CLIA [id number] [address] [place] [address] [place] Oxyhemoglobin (BldV) [Mass fraction] 75 % Normal 60-85 [facility] Comment on above: Order Comment: Speci men Type: VENOUS BLOOD SPECIMEN Ordering Facility: [facility] Address: [address] [place] [id number] Performed By: #### 2 4344-4 #### [facility] [place] [facility] CLIA [id number] [address] [place] [address] [place] pH (BldV) 7.39 [pH] Normal 7.32-7.42 [facility] Comment on above: Order Comment: Speci men Type: VENOUS BLOOD SPECIMEN Ordering Facility: [facility] Address: [address] [place] [address] Performed By: #### 2 4344-4 #### [facility] [place] [facility] CLIA [id number] [address] [place] [address] [place] Potassium [Moles/Vol] 4.4 mmol/L Normal 3.5-5.0 [facility] Comment on above: Order Comment: Speci men Type: VENOUS BLOOD SPECIMEN Ordering Facility: [facility] Address: [address] [place] [address] Performed By: #### 2 4344-4 #### [facility] [place] [facility] CLIA [id number] [address] [place] [address] [place] Sodium [Moles/Vol] 138 mmol/L Normal 136-144 [facility] Comment on above: Order Comment: Speci men Type: VENOUS BLOOD SPECIMEN Ordering Facility: [facility] Address: [address] [place] [address] Performed By: #### 2 4344-4 #### [facility] [place] [facility] CLIA [id number] [address] [place] [address] [place] HIGH SENSITIVITY TROPONIN T (INITIAL)on 12-16-2024 Troponin T.cardiac High sensitivity method [Mass/Vol] 13 ng/L High <12 [facility] Comment on above: Order Comment: Speci men Type: BLOOD SPECIMEN Ordering Facility: [facility] Address: [address] [place] [address] Performed By: #### 5 7021-8 #### [facility] [place] [facility] CLIA [id number] [address] [place] [address] [place] HIGH SENSITIVITY TROPONIN T (SECOND)on 12-16-2024 Troponin T.cardiac High sensitivity method [Mass/Vol] 13 ng/L High <12 [facility] Comment on above: Order Comment: Specdenver kang Type: BLOOD SPECIMEN Ordering Facility: [facility] Address: [address] [place] [address] Performed By: #### L [id number] #### [facility] CLIA [id number] [address] [place] [address] [facility] HIGH SENSITIVITY TROPONIN T (THIRD) 3 HRS AFTER INITIALon 12-16-2024 Troponin T.cardiac High sensitivity method [Mass/Vol] 21 ng/L High <12 [facility] Comment on above: Order Comment: Specdenver kang Type: BLOOD SPECIMEN Ordering Facility: [facility] Address: [address] [place] [address] Performed By: #### 5 7021-8 #### [facility] CLIA [id number] [address] [place] [address] [facility] HISTORY PHYSICALon HISTORY PHYSICAL HNO ID: [id number] Author: RACHEL ANGEL DO Service: Hospital Medicine Author Type: Physician Type: H&P Filed: 12/17/2024 06:10 Note Text: HISTORY AND PHYSICAL EXAMINATION SERVICE DATE: 12/16/2024 SERVICE TIME: 11:48 PM PRIMARY CARE PHYSICIAN: Barak Tiwari MD Subjective CHIEF COMPLAINT: Hypoxia HPI: This is a 59 year old female who presents as a direct admission from [facility] for further eval of hypoxia with hx diastolic heart failure, pulm htn, prior small pulmonary emboli, copd no home oxygen though - abnormal labs from pcp November 30 and echocardiogram was checked showing indeterminate diastolic function, has had swelling in legs but seeming more lymphedemic and had trouble getting appropriate socks on; ddimer was elevated but CT negative for PE, found to be reportedly 75% on room air, 4 L nasal cannula at time of discussion on transfer line, interstitial/noninfectious lung disease findings, initially was not reporting infectious symptoms but states to me she does feel aslightly productive cough though difficult to expectorate fully out; procal normal so no abx given by them but got lasix, labs otherwise trop slightly elevated stable bnp 169 echo a few days ago was ok EF 65% maybe diastolic dysfunction indeterminate, pt mainly concerned about getting back to her home with her two dogs and two children, son of which doesn't drive, not wanting to burden them but be around for them and get back to her normal life, though worried to know what's happening regarding her pulmonary status foremost. FUNCTIONAL STATUS: Independent PAST MEDICAL HISTORY Diagnosis Date Abnormal Pap smear of cervix 09/2020 lgsil/+HPV 11/14 colp benign 08/18 ascus/+HPV 09/17 colp LGSIL Adjustment disorder with depressed mood Asthma (HCC) Chronic hypoxemic respiratory failure (HCC) COPD (chronic obstructive pulmonary disease) (HCC) Esophageal reflux Essential hypertension, benign Generalized anxiety disorder GI bleed History of transfusion HLD (hyperlipidemia) Hx of blood transfusion reaction Hypertension Kidney stones Menorrhagia Migraine without aura Morbid obesity (HCC) Nonspecific abnormal results of other endocrine function study 06/2004 Benign biopsy. Abnormally high thyroid globulin HARMONY (obstructive sleep apnea) Pulmonary emboli (HCC) 09/2013 Bilateral on CTA chest. Scleritis Type II or unspecified type diabetes mellitus without mention of complication, not stated as uncontrolled Uterine prolapse PAST SURGICAL HISTORY Procedure Laterality Date CARPAL TUNNEL Right 11/2015 CHOLECYSTECTOMY 11/15/2019 Dr. Ferguson COMBO ANT/POST COLPORR+ENTEROCELE 02/02/2024 CYSTOMETROGRAM 12/29/2023 CYSTOSCOPY 12/29/2023 EGD 03/07/2020 Dr Ferguson THYROID BIOPSY US 11/2015 THYROIDECTOMY TOTAL/COMPLETE Left 12/13/2018 Dr Ferguson TOTAL THYROID LOBECTOMY UNI W/WO ISTHMUSECTOMY 01/15/2007 right TUBAL LIGATION 1989 VAGINAL HYSTERECTOMY 02/02/2024 XCAPSL CTRC RMVL INSJ IO LENS PROSTH W/O ECP Right 06/2015 Cataract Extraction with PC IOL XCAPSL CTRC RMVL INSJ IO LENS PROSTH W/O ECP Left 07/2015 Cataract Extraction with PC IOL FAMILY HISTORY Problem Relation Age of Onset Hypertension Mother Diabetes Mother Thyroid Mother thyroidectomy other (heart murmur) Mother Heart Attack Father Diabetes Brother Hypertension Brother No Known Problems Brother Pneumothorax Maternal Grandmother No Known Problems Daughter No Known Problems Son Breast Cancer Maternal Aunt Metastatic to bone other (Other) Other No DVT or PE. SOCIAL HISTORY[1] Prior to Admission Medications Prescriptions Last Dose Informant Patient Reported? Taking? Lancets lancets No No Sig: Test blood sugar(s) 4 times daily. Dx: Type 2 DM - Controlled E11.9 Insulin: Yes SITagliptin-metFORMIN (JANUMET) 50-1,000 mg per tablet 12/15/2024 No Yes Sig: Take 1 tablet by mouth two times a day with meals. SUMAtriptan (IMITREX) 50 mg tablet Unknown No Yes Sig: Take 1 tablet by mouth as needed for migraine headache (see administration instructions). albuterol HFA (PROVENTIL HFA, VENTOLIN HFA) 90 mcg/actuation inhaler 12/16/2024 No Yes Sig: Inhale 2 puffs as instructed every 6 hours as needed. atorvastatin (LIPITOR) 20 mg tablet 12/16/2024 No Yes Sig: Take 1 tablet by mouth once daily. For cholesterol. blood sugar diagnostic (BLOOD GLUCOSE TEST) test strip No No Sig: Test blood sugar(s) 4 times daily. Dx: Type 2 DM - Controlled E11.9 Insulin: Yes blood sugar diagnostic (BLOOD GLUCOSE TEST) test strip No No Sig: Test blood sugar(s) 4 times daily. Dx: Type 2 DM - Controlled E11.9 Insulin: Yes budesonide-formoterol (SYMBICORT) 160-4.5 mcg/actuation inhaler 12/16/2024 No Yes Sig: Inhale 2 puffs as instructed two times a day. carvedilol (COREG) 25 mg tablet 12/16/2024 No Yes Sig: Take 0.5 tablets by mouth two times a day. fluorometholone (FML LIQUID FILM) 0.1 % (more content not included)... Normal Iron and Iron binding capaci ty panelon 12-16-2024 Iron [Mass/Vol] 42 ug/dL Normal 41-186 [facility] Comment on above: Order Comment: Speci men Type: BLOOD SPECIMENOrdering Facility: [facility] Address: [address] [place] [address] Performed By: #### 3 024-7, 3051-0, 70880-7, 2276-4 ####[facility] LABCLIA [id number] [place] [address] [place] Iron binding capacity [Mass/Vol] 232 ug/dL Normal 232-386 [facility] Comment on above: Order Comment: Speci men Type: BLOOD SPECIMENOrdering Facility: [facility] Address: [address] [place] [address] Performed By: #### 3 024-7, 3051-0, 37233-2, 6-4 ####[facility] LABCLIA [id number] [place] [id number] [place] Iron/TIBC [Molar ratio] 18.1 % Normal 15.0-57.0 [facility] Comment on above: Order Comment: Speci men Type: BLOOD SPECIMENOrdering Facility: [facility] Address: [address] [place] [address] Performed By: #### 3 024-7, 3051-0, 72629-7, 6-4 ####[facility] LABCLIA [id number] [place] [address] [place] NT-proBNP [facility] 12-16 Natriuretic peptide.B prohormone N-Terminal [Mass/Vol] 169 pg/mL High <125 [facility] Comment on above: Order Comment: Speci men Type: BLOOD SPECIMEN [facility]: [facility] Address: [address] [place] [address] Performed By: #### 3 3762-6, 79936-1, 59559-2 #### [facility] CLIA [id number] [address] [place] [address] [place] PROTEIN ELECTROPHORESIS SERU M (P)on 12-16-2024 Albumin [Mass/Vol] 3.09 g/dL Low 3.43-5.41 [facility] Comment on above: Order Comment: Speci men Type: BLOOD SPECIMENOrdering Facility: [facility] Address: [address] [place] [address] Performed By: #### L [id number] ####[facility] LABCLIA [id number] [place] [id number] [place] Alpha 1 globulin Elph [Mass/Vol] 0.31 g/dL Normal 0.18-0.43 [facility] Comment on above: Order Comment: Speci men Type: BLOOD SPECIMENOrdering Facility: [facility] Address: [address] [place] [address] Performed By: #### L [id number] ####[facility] LABIA [id number] [place] [address] [place] Alpha 2 globulin Elph [Mass/Vol] 0.69 g/dL Normal 0.42-0.98 [facility] Comment on above: Order Comment: Speci men Type: BLOOD SPECIMENOrdering Facility: [facility] Address: [address] [place] [address] Performed By: #### L [id number] ####[facility] LABIA [id number] [place] [address] [place] Beta globulin Elph [Mass/Vol] 1.18 g/dL High 0.61-1.17 [facility] Comment on above: Order Comment: Speci men Type: BLOOD SPECIMENOrdering Facility: [facility] Address: [address] [place] [address] Performed By: #### L [id number] ####[facility] LABIA [id number] [place] [address] [place] Gamma globulin Elph [Mass/Vol] 3.83 g/dL High 0.53-1.51 [facility] Comment on above: Order Comment: Speci men Type: BLOOD SPECIMENOrdering Facility: [facility] Address: [address] [place] [address] Performed By: #### L [id number] ####[facility] LABIA [id number] [place] [address] [place] INTERPRETATION COMMENT FOR PROTEIN ELECTROPHORESIS The atypical region did not stain on accompanying immunofixation and therefore is unlikely to be a monoclonal immunoglobulin. Normal [facility] Comment on above: Order Comment: Speci men Type: BLOOD SPECIMENOrdering Facility: [facility] Address: [address] [place] [address] Performed By: #### L [id number] ####[facility] LABCLIA [id number] [place] [id number] [place] M-PROTEIN LOCATION Normal [facility] Comment on above: Order Comment: Speci men Type: BLOOD SPECIMENOrdering Facility: [facility] Address: [address] [place] [address] Result Comment: Not Applicable. Performed By: #### L [id number] ####[facility] LABCLIA [id number] [place] [id number] [place] Protein Fractions [Interp] An atypical region of restricted mobility is identified on protein electrophoresis. Abnormal No definitive M protein is identified on protein electrophoresi s. [facility] Comment on above: Order Comment: Speci men Type: BLOOD SPECIMENOrdering Facility: [facility] Address: [address] [place] [address] Performed By: #### L [id number] ####[facility] LABIA [id number] [place] [address] [place] Protein.monoclonal Elph [Mass/Vol] 0.00 g/dL Normal <=0.00 [facility] Comment on above: Order Comment: Speci men Type: BLOOD SPECIMENOrdering Facility: [facility] Address: [address] [place] [address] Performed By: #### L [id number] ####[facility] LABCLIA [id number] [place] [id number] [place] SPE STAFF REVIEW Reviewed by Madhu obrien M.D. Normal [facility] Comment on above: Order Comment: Speci men Type: BLOOD SPECIMENOrdering Facility: [facility] Address: [address] [place] [address] Performed By: #### L [id number] ####[facility] LABIA [id number] [place] [id number] [place] Procalcitonin SerPl-mCncon 0 12-16-2024 Procalcitonin [Mass/Vol] 0.08 ng/mL Normal <0.09 [facility] Comment on above: Order Comment: Speci men Type: BLOOD SPECIMEN [facility]ing [facility]: [facility] Address: [address] [place] [address] Result Comment: For a guided interpretation of test results, please visit the [facility] in Procalcitonin Calculator, [email or web address]. Performed By: #### 3 3762-6, 00508-7, 85978-1 #### [facility] CLIA [id number] [address] [place], [place] [id number] [place] Prot SerPl-mCncon 12-16-2024 Protein [Mass/Vol] 9.1 g/dL High 6.3-8.0 [facility] Comment on above: Order Comment: Speci men Type: BLOOD SPECIMENOrdering Facility: [facility] Address: [address] [place] [address] Performed By: #### 2 885-2 ####[facility] LABCLIA [id number] [place] [address] [place] T3Free SerPl-mCncon 12-17-19 25 Free T3 [Mass/Vol] 2.2 pg/mL Low 2.3-4.1 [facility] Comment on above: Order Comment: Speci men Type: BLOOD SPECIMENOrdering Facility: [facility] Address: [address] [place] [address] Performed By: #### 3 024-7, 3051-0, 26744-1, 2276-4 ####[facility] LABIA [id number] [place] [address] [place] T4 Free SerPl-mCncon 025 Free T4 [Mass/Vol] 1.8 ng/dL High 0.9-1.7 [facility] Comment on above: Order Comment: Speci men Type: BLOOD SPECIMENOrdering Facility: [facility] Address: [address] [place] [address] Performed By: #### 3 024-7, 3051-0, 03942-6, 2276-4 ####[facility] LABCLIA [id number] [place] [address] [place] JOSEFA SCREENING W TOMOon 12-15 JOSEFA SCREENING W BLAISE Normal [facility] CNPNon 12-01-2024 CNPN Normal [facility] ALBUMIN/CREATININE RATIO, UR INEon 11-30-2024 Albumin DL <= 20 mg/L (U) [Mass/Vol] 54.9 mg/L Normal [facility] Comment on above: Order Comment: Speci men Type: URINE SPECIMENOrdering Facility: [facility] Address: [address] [place] [address] Performed By: #### U ACR ####[facility] LABCLIA [id number] [address] [place] Albumin/Creatinine (U) [Mass ratio] 21 mg/g Normal <30 [facility] Comment on above: Order Comment: Speci men Type: URINE SPECIMENOrdering Facility: [facility] Address: [address] [place] [address] Result Comment: Adul t Male and Female Nephrotic Criteria:<30 mg/g is considered normal to mildly eshzckhov79-993 mg/g is considered moderately increased>300 mg/g is considered severely increasedKDIGO. (2013). KDIGO 2012 Clinical Practice Guideline for the Evaluation and Management of Chronic Kidney Disease. Official Journal of the International Society of Nephrology, 3(1), 1-150. Performed By: #### U ACR ####[facility] LABIA [id number] [place] [id number] [place] Creatinine (U) [Mass/Vol] 267.0 mg/dL Normal 20.0-300.0 [facility] Comment on above: Order Comment: Speci men Type: URINE SPECIMENOrdering Facility: [facility] Address: [address] [place] [address] Performed By: #### U ACR ####[facility] LABCLIA [id number] [address], [place] [address] [place] CBC W Auto Differential pane l (Bld)on 11-30-2024 Basophils (Bld) [#/Vol] 0.07 10*3/uL Normal <0.11 [facility] Comment on above: Order Comment: Speci men Type: BLOOD SPECIMENOrdering Facility: [facility] Address: [address] [place] [address] Performed By: #### 5 7021-8 ####[facility] LABCLIA [id number] [address], [place] [address] [place] Basophils/100 WBC (Bld) 1.2 % Normal [facility] Comment on above: Order Comment: Speci men Type: BLOOD SPECIMENOrdering Facility: [facility] Address: [address] [place] [address] Performed By: #### 5 7021-8 ####[facility] LABCLIA [id number] [address], [place] [address] [place] Differential cell count method Nom (Bld) Auto Normal [facility] Comment on above: Order Comment: Speci men Type: BLOOD SPECIMENOrdering Facility: [facility] Address: [address] [place] [address] Performed By: #### 5 7021-8 ####[facility] LABCLIA [id number] [address], [facility] [place] Eosinophils (Bld) [#/Vol] 0.19 10*3/uL Normal <0.46 [facility] Comment on above: Order Comment: Speci men Type: BLOOD SPECIMENOrdering Facility: [facility] Address: [address] [place] [address] Performed By: #### 5 7021-8 ####[facility] LABCLIA [id number] [place] [id number] [place] Eosinophils/100 WBC (Bld) 3.3 % Normal [facility] Comment on above: Order Comment: Speci men Type: BLOOD SPECIMENOrdering Facility: [facility] Address: [address] [place] [address] Performed By: #### 5 7021-8 ####[facility] LABCLIA [id number] [place] [address] [place] Erythrocyte distribution width (RBC) [Ratio] 16.0 % High 11.5-15.0 [facility] Comment on above: Order Comment: Speci men Type: BLOOD SPECIMENOrdering Facility: [facility] Address: [address] [place] [address] Performed By: #### 5 7021-8 ####[facility] LABCLIA [id number] [place] [address] [place] Hematocrit (Bld) [Volume fraction] 36.0 % Normal 36.0-46.0 [facility] Comment on above: Order Comment: Speci men Type: BLOOD SPECIMENOrdering Facility: [facility] Address: [address] [place] [address] Performed By: #### 5 7021-8 ####[facility] LABCLIA [id number] [place] [address] [place] Hemoglobin (Bld) [Mass/Vol] 11.4 g/dL Low 11.5-15.5 [facility] Comment on above: Order Comment: Speci men Type: BLOOD SPECIMENOrdering Facility: [facility] Address: [address] [place] [address] Performed By: #### 5 7021-8 ####[facility] LABCLIA [id number] [place] [address] [place] Immature granulocytes (Bld) [#/Vol] 10*3/uL Normal <0.10 [facility] Comment on above: Order Comment: Speci men Type: BLOOD SPECIMENOrdering Facility: [facility] Address: [address] [place] [address] Performed By: #### 5 7021-8 ####[facility] LABCLIA [id number] [place] [address] [place] [facility] Immature granulocytes/100 WBC (Bld) 0.2 % Normal [facility] Comment on above: Order Comment: Speci men Type: BLOOD SPECIMENOrdering Facility: [facility] Address: [address] [place] [address] Performed By: #### 5 7021-8 ####[facility] LABIA [id number] [place] [address] [place] Lymphocytes (Bld) [#/Vol] 1.35 10*3/uL Normal 1.00-4.00 [facility] Comment on above: Order Comment: Speci men Type: BLOOD SPECIMENOrdering Facility: [facility] Address: [address] [place] [address] Performed By: #### 5 7021-8 ####[facility] LABIA [id number] [place] [address] [place] Lymphocytes/100 WBC (Bld) 23.5 % Normal [facility] Comment on above: Order Comment: Speci men Type: BLOOD SPECIMENOrdering Facility: [facility] Address: [address] [place] [address] Performed By: #### 5 7021-8 ####[facility] LABCLIA [id number] [place] [address] [place] MCH (RBC) [Entitic mass] 26.7 pg Normal 26.0-34.0 [facility] Comment on above: Order Comment: Speci men Type: BLOOD SPECIMENOrdering Facility: [facility] Address: [address] [place] [address] Performed By: #### 5 7021-8 ####[facility] LABCLIA [id number] [place] MCHC (RBC) [Mass/Vol] 31.7 g/dL Normal 30.5-36.0 [facility] Comment on above: Order Comment: Speci men Type: BLOOD SPECIMENOrdering Facility: [facility] Address: [address] [place] [address] Performed By: #### 5 7021-8 ####[facility] LABIA [id number] [place] [address] [place] MCV (RBC) [Entitic vol] 84.3 fL Normal 80.0-100.0 [facility] Comment on above: Order Comment: Speci men Type: BLOOD SPECIMENOrdering Facility: [facility] Address: [address] [place] [address] Performed By: #### 5 7021-8 ####[facility] LABIA [id number] [place] [address] [place] Monocytes (Bld) [#/Vol] 0.58 10*3/uL Normal <0.87 [facility] Comment on above: Order Comment: Speci men Type: BLOOD SPECIMENOrdering Facility: [facility] Address: [address] [place] [address] Performed By: #### 5 7021-8 ####[facility] LABIA [id number] [place] [address] [place] Monocytes/100 WBC (Bld) 10.1 % Normal [facility] Comment on above: Order Comment: Speci men Type: BLOOD SPECIMENOrdering Facility: [facility] Address: [address] [place] [address] Performed By: #### 5 7021-8 ####[facility] LABCLIA [id number] [place] [address] [place] Neutrophils (Bld) [#/Vol] 3.54 10*3/uL Normal 1.45-7.50 [facility] Comment on above: Order Comment: Speci men Type: BLOOD SPECIMENOrdering Facility: [facility] Address: [address] [place] [address] Performed By: #### 5 7021-8 ####[facility] LABCLIA [id number] [place] [address] [place] Neutrophils/100 WBC (Bld) 61.7 % Normal [facility] Comment on above: Order Comment: Speci men Type: BLOOD SPECIMENOrdering Facility: [facility] Address: [address] [place] [address] Performed By: #### 5 7021-8 ####[facility] LABCLIA [id number] [place] [address] [place] Nucleated RBC (Bld) [#/Vol] 10*3/uL Normal <0.01 [facility] Comment on above: Order Comment: Speci men Type: BLOOD SPECIMENOrdering Facility: [facility] Address: [address] [place] [address] Performed By: #### 5 7021-8 ####[facility] LABCLIA [id number] [place] [address] [place] Nucleated RBC/100 WBC (Bld) [Ratio] 0.0 /100 WBC Normal [facility] Comment on above: Order Comment: Speci men Type: BLOOD SPECIMENOrdering Facility: [facility] Address: [address] [place] [address] Performed By: #### 5 7021-8 ####[facility] LABCLIA [id number] [place] [id number] [place] Platelet mean volume (Bld) [Entitic vol] 9.7 fL Normal 9.0-12.7 [facility] Comment on above: Order Comment: Speci men Type: BLOOD SPECIMENOrdering Facility: [facility] Address: [address] [place] [address] Performed By: #### 5 7021-8 ####[facility] LABCLIA [id number] [place] [address] [place] Platelets (Bld) [#/Vol] 314 10*3/uL Normal 150-400 [facility] Comment on above: Order Comment: Speci men Type: BLOOD SPECIMENOrdering Facility: [facility] Address: [address] [place] [address] Performed By: #### 5 7021-8 ####[facility] [id number] [place] [address] [place] RBC (Bld) [#/Vol] 4.27 10*6/uL Normal 3.90-5.20 [facility] Comment on above: Order Comment: Speci men Type: BLOOD SPECIMENOrdering Facility: [facility] Address: [address] [place] [address] Performed By: #### 5 7021-8 ####[facility] [id number] [place] [address] [place] WBC (Bld) [#/Vol] 5.74 10*3/uL Normal 3.70-11.00 [facility] Comment on above: Order Comment: Speci men Type: BLOOD SPECIMENOrdering Facility: [facility] Address: [address] [place] [address] Performed By: #### 5 7021-8 ####[facility] [id number] [place] [address] [place] CNOVon 11-30-2024 CNOV Normal [facility] Comprehensive metabolic 2000 panelon 11-30-2024 Albumin [Mass/Vol] 3.4 g/dL Low 3.9-4.9 [facility] Comment on above: Order Comment: Speci men Type: BLOOD SPECIMENOrdering Facility: [facility] Address: [address] [place] [address] Performed By: #### T 4FTI, 13134-7, 20253-3 ####[facility] LABCLIA [id number] [address] [place] [address] [place] ALP [Catalytic activity/Vol] 51 U/L Normal 34-123 [facility] Comment on above: Order Comment: Speci men Type: BLOOD SPECIMENOrdering Facility: [facility] Address: [address] [place] [address] Performed By: #### T 4FTI, 18476-1, 66241-3 ####[facility] LABCLIA [id number] [place] [address] [place] ALT [Catalytic activity/Vol] 10 U/L Normal 7-38 [facility] Comment on above: Order Comment: Speci men Type: BLOOD SPECIMENOrdering Facility: [facility] Address: [address] [place] [address] Performed By: #### T 4FCHACE, 68263-2, 70528-7 ####[facility] LABCLIA [id number] [address], [place] [address] [place] Anion gap [Moles/Vol] 12 mmol/L Normal 8-15 [facility] Comment on above: Order Comment: Speci men Type: BLOOD SPECIMENOrdering Facility: [facility] Address: [address] [place] [address] Performed By: #### T 4FTI, 09270-6, 25444-8 ####[facility] LABCLIA [id number] [place] [address] [place] AST [Catalytic activity/Vol] 23 U/L Normal 13-35 [facility] Comment on above: Order Comment: Speci men Type: BLOOD SPECIMENOrdering Facility: [facility] Address: [address] [place] [address] Performed By: #### T 4FTI, 43149-5, 14362-7 ####[facility] LABCLIA [id number] [address] [address] [place] Bilirubin [Mass/Vol] 0.8 mg/dL Normal 0.2-1.3 [facility] Comment on above: Order Comment: Speci men Type: BLOOD SPECIMENOrdering Facility: [facility] Address: [address] [place] [address] Performed By: #### T 4FCHACE, , ####[facility] LABCLIA [id number] [address] [address] [place] Calcium [Mass/Vol] 9.6 mg/dL Normal 8.5-10.2 [facility] Comment on above: Order Comment: Speci men Type: BLOOD SPECIMENOrdering Facility: [facility] Address: [address] [place] [address] Performed By: #### T 4FCHACE, , ####[facility] LABCLIA [id number] [place] [id number] [place] Chloride [Moles/Vol] 102 mmol/L Normal 98-107 [facility] Comment on above: Order Comment: Speci men Type: BLOOD SPECIMENOrdering Facility: [facility] Address: [address] [place] [address] Performed By: #### Farhan 4FCHACE, , ####[facility] LABCLIA [id number] [address] [address] [place] CO2 [Moles/Vol] 20 mmol/L Low 22-30 [facility] Comment on above: Order Comment: Speci men Type: BLOOD SPECIMENOrdering Facility: [facility] Address: [address] [place], [place] [address] Performed By: #### T 4FCHACE, , ####[facility] LABCLIA [id number] [address] [address] [place] Creatinine [Mass/Vol] 0.82 mg/dL Normal 0.58-0.96 [facility] Comment on above: Order Comment: Speci men Type: BLOOD SPECIMENOrdering Facility: [facility] Address: [address] [place] [address] Performed By: #### T 4FTI, 32477-5, 31159-1 ####[facility] LABIA [id number] [place] [id number] [place] eGFRcr SerPlBld CKD-EPI 2020 84 mL/min/1.73m??? Normal >=60 [facility] Comment on above: Order Comment: Zena kang Type: BLOOD SPECIMENOrdering Facility: [facility] Address: [address] [place] [address] Result Comment: Daisha mated Glomerular Filtration Rate (eGFR) is calculated using the 2020 CKD-EPI creatinine equation. This equation utilizes serum creatinine, sex, and age as parameters. The creatinine assay has traceable calibration to isotope dilution-mass spectrometry. Refer to KDIGO guidelines for clinical interpretation. In patients with unstable renal function, e.g. those with acute kidney injury, the eGFR may not accurately reflect actual GFR. Performed By: #### T 4FTI, 11878-5, 08757-5 ####[facility] LABCLIA [id number] [place] [id number] [place] Glucose [Mass/Vol] 79 mg/dL Normal 74-99 [facility] Comment on above: Order Comment: Zena kang Type: BLOOD SPECIMENOrdering Facility: [facility] Address: [address] [place] [address] Result Comment: The [place] Diabetes Association (ADA) provides guidance for cutoff values for fasting glucose and random glucose. The ADA defines fasting as no caloric intake for at least 8 hours. Fasting plasma glucose results between 100 to 125 mg/dL indicate increased risk for diabetes (prediabetes).Fasting plasma glucose results greater than or equal to 126 mg/dL meet the criteria for diagnosis of diabetes. In the absence of unequivocal hyperglycemia, results should be confirmed by repeat testing. In a patient with classic symptoms of hyperglycemia or hyperglycemic crisis, random plasma glucose results greater than or equal to 200 mg/dL meet the criteria for diagnosis of diabetes.Reference: Standards of Medical Care in Diabetes 2016, [place] Diabetes Association. Diabetes Care. 2016.39(Suppl 1). Performed By: #### T 4FTI, 70650-6, 52292-4 ####[facility] LABCLIA [id number] [address] [address] [place] Potassium [Moles/Vol] 4.5 mmol/L Normal 3.7-5.1 [facility] Comment on above: Order Comment: Speci men Type: BLOOD SPECIMENOrdering Facility: [facility] Address: [address] [place] [address] Performed By: #### T 4FTI, , ####[facility] LABCLIA [id number] [address] [address] [place] Protein [Mass/Vol] 9.3 g/dL High 6.3-8.0 [facility] Comment on above: Order Comment: Speci men Type: BLOOD SPECIMENOrdering Facility: [facility] Address: [address] [place] [address] Performed By: #### T 4FCHACE, , ####[facility] LABCLIA [id number] [address] [address] [place] Sodium [Moles/Vol] 134 mmol/L Low 136-144 [facility] Comment on above: Order Comment: Speci men Type: BLOOD SPECIMENOrdering Facility: [facility] Address: [address] [place] [address] Performed By: #### T 4FTI, , ####[facility] LABCLIA [id number] [address] [address] [place] Urea nitrogen [Mass/Vol] 13 mg/dL Normal 7-21 [facility] Comment on above: Order Comment: Speci men Type: BLOOD SPECIMENOrdering Facility: [facility] Address: [address] [place], [place] [address] Performed By: #### T 4FTI, , 24526-8 ####[facility] LABCLIA [id number] [place] [address] [place] HbA1c (Bld)on 11-30-2024 Average glucose Estimated from glycated hemoglobin (Bld) [Mass/Vol] 123 mg/dL Normal [facility] Comment on above: Order Comment: Zena kang Type: BLOOD SPECIMENOrdering Facility: [facility] Address: [address] [place] [address] Result Comment: eAG: (Estimated average glucose) is a calculated value from HgbA1c and is branch customer service representative of the average blood glucose level in the last 2-3 month period. Performed By: #### 5 5454-3 ####[facility] LABIA [id number] [place] [address] [place] HbA1c (Bld) [Mass fraction] 5.9 % High 4.3-5.6 [facility] Comment on above: Order Comment: Zena kang Type: BLOOD SPECIMENOrdering Facility: [facility] Address: [address] [place] [address] Result Comment: [place] Diabetes Association guidelines indicate that patients with HgbA1c in the range 5.7-6.4% are at increased risk for development of diabetes, and intervention by lifestyle modification may be beneficial. HgbA1c greater or equal to 6.5% is considered diagnostic of diabetes. Performed By: #### 5 5454-3 ####[facility] LABIA [id number] [place] [address] [place] Iron and Iron binding capaci ty panelon 11-30-2024 Iron [Mass/Vol] 32 ug/dL Low 41-186 [facility] Comment on above: Order Comment: Zena kang Type: BLOOD SPECIMENOrdering Facility: [facility] Address: [address] [place] [address] Performed By: #### T 4FTI, 41253-6, 87698-8 ####[facility] LABIA [id number] [place] [address] [place] Iron binding capacity [Mass/Vol] 223 ug/dL Low 232-386 [facility] Comment on above: Order Comment: Speci men Type: BLOOD SPECIMENOrdering Facility: [facility] Address: [address] [place] [address] Performed By: #### T 4FCHACE, 14744-4, 34112-9 ####[facility] LABCLIA [id number] [place] [address] [place] Iron/TIBC [Molar ratio] 14.3 % Low 15.0-57.0 [facility] Comment on above: Order Comment: Speci men Type: BLOOD SPECIMENOrdering Facility: [place] Address: [address] [place] [address] Performed By: #### T GENTRY, 37954-6, 82025-6 ####[facility] LABCLIA [id number] [place] [id number] [place] T4/FTI/T4Uon 11-30-2024 FTI 13.2 ug/dL High 5.3-10.8 [facility] Comment on above: Order Comment: Speci men Type: BLOOD SPECIMENOrdering Facility: [facility] Address: [address] [place] [address] Performed By: #### T 4FCHACE, 73761-2, 32513-7 ####[facility] LABIA [id number] [place] [address] [place] T4 [Mass/Vol] 9.4 ug/dL Normal 5.5-10.2 [facility] Comment on above: Order Comment: Speci men Type: BLOOD SPECIMENOrdering Facility: [facility] Address: [address] [place] [address] Performed By: #### T 4FCHACE, 31849-5, 67502-5 ####[facility] LABCLIA [id number] [address] [address] [place] T4 uptake [Mass/Vol] 0.71 Low 0.91-1.19 [facility] Comment on above: Order Comment: Speci men Type: BLOOD SPECIMENOrdering Facility: [facility] Address: [address] [place] [address] Performed By: #### T 4FTI, 01603-4, 59660-1 ####[facility] LABCLIA [id number] [place] [address] [place] THYROGLOBULIN ANTIBODYon Thyroglobulin Ab Qn [IU]/mL Normal <4.0 [facility] Comment on above: Order Comment: Speci men Type: BLOOD SPECIMENOrdering Facility: [facility] Address: [address] [place] [address] Result Comment: The Thyroglobulin Antibody test was performed using the [employer] DXI paramagnetic particle chemiluminescent immunoassay method. Results obtained with different assay methods or kits cannot be used interchangeably. Performed By: #### T ISA ####[facility] LABCLIA [id number] [place] [address] [place] TSH SerPl-aCncon 11-30-2024 TSH Qn 6.020 m[IU]/L High 0.270-4.200 [facility] Comment on above: Order Comment: Speci men Type: BLOOD SPECIMENOrdering Facility: [place] Address: [address] [place] [address] Performed By: #### 3 016-3 ####[facility] LABCLIA [id number] [place] [address] [place] CNOVon 10-20-2024 CNOV Normal [facility] CNOVon 10-06-2024 CNOV Normal [facility] CNPTOUTREACHon 09-21-2024 CNPTOUTREACH Normal [facility] CNOVon 08-22-2024 CNOV Normal [facility] CNPTOUTREACHon 08-05-2024 CNPTOUTREACH Normal [facility] CNOVon 07-28-2024 CNOV Normal [facility] CNPTOUTREACHon 07-04-2024 CNPTOUTREACH Normal [facility] CNPNon 06-10-2024 CNPN Normal [facility] CBC W Auto Differential pane l (Bld)on 06-09-2024 Basophils (Bld) [#/Vol] 0.06 10*3/uL Normal <0.11 [facility] Comment on above: Order Comment: Speci men Type: BLOOD SPECIMENOrdering Facility: [facility] Address: [address] [place] [address] Performed By: #### 5 7021-8 ####[facility] LABCLIA [id number] [place] [address] [place] Basophils/100 WBC (Bld) 0.9 % Normal [facility] Comment on above: Order Comment: Speci men Type: BLOOD SPECIMENOrdering Facility: [facility] Address: [address] [place] [address] Performed By: #### 5 7021-8 ####[facility] LABCLIA [id number] [place] [address] [place] Differential cell count method Nom (Bld) Auto Normal [facility] Comment on above: Order Comment: Speci men Type: BLOOD SPECIMENOrdering Facility: [facility] Address: [address] [place] [address] Performed By: #### 5 7021-8 ####[facility] LABCLIA [id number] [place] [address] [place] Eosinophils (Bld) [#/Vol] 0.25 10*3/uL Normal <0.46 [facility] Comment on above: Order Comment: Speci men Type: BLOOD SPECIMENOrdering Facility: [facility] Address: [address] [place] [address] Performed By: #### 5 7021-8 ####[facility] LABCLIA [id number] [place] [address] [place] Eosinophils/100 WBC (Bld) 3.6 % Normal [facility] Comment on above: Order Comment: Speci men Type: BLOOD SPECIMENOrdering Facility: [facility] Address: [address] [place] [address] Performed By: #### 5 7021-8 ####[facility] LABIA [id number] [place] [address] [place] Erythrocyte distribution width (RBC) [Ratio] 14.1 % Normal 11.5-15.0 [facility] Comment on above: Order Comment: Speci men Type: BLOOD SPECIMENOrdering Facility: [facility] Address: [address] [place] [address] Performed By: #### 5 7021-8 ####[facility] LABIA [id number] [place] [address] [place] Hematocrit (Bld) [Volume fraction] 35.8 % Low 36.0-46.0 [facility] Comment on above: Order Comment: Speci men Type: BLOOD SPECIMENOrdering Facility: [facility] Address: [address] [place] [address] Performed By: #### 5 7021-8 ####[facility] LABIA [id number] [place] [address] [place] Hemoglobin (Bld) [Mass/Vol] 11.2 g/dL Low 11.5-15.5 [facility] Comment on above: Order Comment: Speci men Type: BLOOD SPECIMENOrdering Facility: [facility] Address: [address] [place] [address] Performed By: #### 5 7021-8 ####[facility] LABIA [id number] [place] [address] [place] Immature granulocytes (Bld) [#/Vol] 10*3/uL Normal <0.10 [facility] Comment on above: Order Comment: Speci men Type: BLOOD SPECIMENOrdering Facility: [facility] Address: [address] [place] [address] Performed By: #### 5 7021-8 ####[facility] LABCLIA [id number] [place] [address] [place] Immature granulocytes/100 WBC (Bld) 0.1 % Normal [facility] Comment on above: Order Comment: Speci men Type: BLOOD SPECIMENOrdering Facility: [facility] Address: [address] [place] [address] Performed By: #### 5 7021-8 ####[facility] LABCLIA [id number] [place] [address] [place] Lymphocytes (Bld) [#/Vol] 1.48 10*3/uL Normal 1.00-4.00 [facility] Comment on above: Order Comment: Speci men Type: BLOOD SPECIMENOrdering Facility: [facility] Address: [address] [place] [address] Performed By: #### 5 7021-8 ####[facility] LABIA [id number] [place] [address] [place] Lymphocytes/100 WBC (Bld) 21.3 % Normal [facility] Comment on above: Order Comment: Speci men Type: BLOOD SPECIMENOrdering Facility: [place] Address: [address] [place] [address] Performed By: #### 5 7021-8 ####[facility] LABIA [id number] [place] [address] [place] MCH (RBC) [Entitic mass] 27.0 pg Normal 26.0-34.0 [facility] Comment on above: Order Comment: Speci men Type: BLOOD SPECIMENOrdering Facility: [place] Address: [address] [place] [address] Performed By: #### 5 7021-8 ####[facility] LABCLIA [id number] [place] [address] [place] MCHC (RBC) [Mass/Vol] 31.3 g/dL Normal 30.5-36.0 [facility] Comment on above: Order Comment: Speci men Type: BLOOD SPECIMENOrdering Facility: [place] Address: [address] [place] [address] Performed By: #### 5 7021-8 ####[facility] LABCLIA [id number] [place] [address] [place] MCV (RBC) [Entitic vol] 86.3 fL Normal 80.0-100.0 [facility] Comment on above: Order Comment: Speci men Type: BLOOD SPECIMENOrdering Facility: [place] Address: [address] [place] [address] Performed By: #### 5 7021-8 ####[facility] LABIA [id number] [place] [address] [place] Monocytes (Bld) [#/Vol] 0.66 10*3/uL Normal <0.87 [facility] Comment on above: Order Comment: Speci men Type: BLOOD SPECIMENOrdering Facility: [place] Address: [address] [place] [address] Performed By: #### 5 7021-8 ####[facility] LABIA [id number] [place] [address] [place] Monocytes/100 WBC (Bld) 9.5 % Normal [facility] Comment on above: Order Comment: Speci men Type: BLOOD SPECIMENOrdering Facility: [place] Address: [address] [place] [address] Performed By: #### 5 7021-8 ####[facility] LABIA [id number] [place] [address] [place] Neutrophils (Bld) [#/Vol] 4.49 10*3/uL Normal 1.45-7.50 [facility] Comment on above: Order Comment: Speci men Type: BLOOD SPECIMENOrdering Facility: [place] Address: [address] [place] [address] Performed By: #### 5 7021-8 ####[facility] LABCLIA [id number] [place] [address] [place] Neutrophils/100 WBC (Bld) 64.6 % Normal [facility] Comment on above: Order Comment: Speci men Type: BLOOD SPECIMENOrdering Facility: [place] Address: [address] [place] [address] Performed By: #### 5 7021-8 ####[facility] LABCLIA [id number] [place] [address] [place] Nucleated RBC (Bld) [#/Vol] 10*3/uL Normal <0.01 [facility] Comment on above: Order Comment: Speci men Type: BLOOD SPECIMENOrdering Facility: [place] Address: [address] [place] [address] Performed By: #### 5 7021-8 ####[facility] LABIA [id number] [place] [address] [place] Nucleated RBC/100 WBC (Bld) [Ratio] 0.0 /100 WBC Normal [facility] Comment on above: Order Comment: Speci men Type: BLOOD SPECIMENOrdering Facility: [place] Address: [address] [place] [address] Performed By: #### 5 7021-8 ####[facility] LABIA [id number] [place] [address] [place] Platelet mean volume (Bld) [Entitic vol] 9.6 fL Normal 9.0-12.7 [facility] Comment on above: Order Comment: Speci men Type: BLOOD SPECIMENOrdering Facility: [place] Address: [address] [place] [address] Performed By: #### 5 7021-8 ####[facility] LABIA [id number] [place] [address] [place] Platelets (Bld) [#/Vol] 261 10*3/uL Normal 150-400 [facility] Comment on above: Order Comment: Speci men Type: BLOOD SPECIMENOrdering Facility: [place] Address: [address] [place] [address] Performed By: #### 5 7021-8 ####[facility] LABCLIA [id number] [place] [address] [place] RBC (Bld) [#/Vol] 4.15 10*6/uL Normal 3.90-5.20 [facility] Comment on above: Order Comment: Speci men Type: BLOOD SPECIMENOrdering Facility: [place] Address: [address] [place] [address] Performed By: #### 5 7021-8 ####[facility] LABCLIA [id number] [place] [address] [place] WBC (Bld) [#/Vol] 6.95 10*3/uL Normal 3.70-11.00 [facility] Comment on above: Order Comment: Speci men Type: BLOOD SPECIMENOrdering Facility: [place] Address: [address] [place] [address] Performed By: #### 5 7021-8 ####[facility] LABCLIA [id number] [place] [address] [place] CNOVon 06-09-2024 CNOV Normal [facility] Comprehensive metabolic 2000 panelon 06-09-2024 Albumin [Mass/Vol] 3.7 g/dL Low 3.9-4.9 [facility] Comment on above: Order Comment: Speci men Type: BLOOD SPECIMENOrdering Facility: [place] Address: [address] [place] [address] Performed By: #### 3 016-3, 10761-1, 65178-0, LIPNF ####[facility] LABORATORYCLIA [id number] [place] [address] [place] ALP [Catalytic activity/Vol] 61 U/L Normal 34-123 [facility] Comment on above: Order Comment: Speci men Type: BLOOD SPECIMENOrdering Facility: [place] Address: [address] [place] [address] Performed By: #### 3 016-3, , , LIPNF ####[facility] LABORATORYCLIA [id number] [place] [address] [place] ALT With P-5'-P [Catalytic activity/Vol] 9 U/L Normal 7-38 [facility] Comment on above: Order Comment: Speci men Type: BLOOD SPECIMENOrdering Facility: [place] Address: [address] [place] [address] Performed By: #### 3 016-3, , , LIPNF ####[facility] LABORATORYCLIA [id number] [place] [address] [place] Anion gap [Moles/Vol] 9 mmol/L Normal 8-15 [facility] Comment on above: Order Comment: Speci men Type: BLOOD SPECIMENOrdering Facility: [place] Address: [address] [place] [address] Performed By: #### 3 016-3, , , LIPNF ####[facility] LABORATORYCLIA [id number] [address] [place] AST With P-5'-P [Catalytic activity/Vol] 24 U/L Normal 13-35 [facility] Comment on above: Order Comment: Speci men Type: BLOOD SPECIMENOrdering Facility: [place] Address: [address] [place] [address] Performed By: #### 3 016-3, , , LIPNF ####[facility]ATORYCLIA [id number] [place] [id number] [place] Bilirubin [Mass/Vol] 0.5 mg/dL Normal 0.2-1.3 [facility] Comment on above: Order Comment: Speci men Type: BLOOD SPECIMENOrdering Facility: [place] Address: [address] [place] [address] Performed By: #### 3 016-3, , , LIPNF ####[facility] LABORATORYCLIA [id number] [place] [id number] [place] Calcium [Mass/Vol] 10.0 mg/dL Normal 8.5-10.2 [facility] Comment on above: Order Comment: Speci men Type: BLOOD SPECIMENOrdering Facility: [place] Address: [address] [place] [address] Performed By: #### 3 016-3, , , LIPNF ####[facility] LABORATORYCLIA [id number] [place] [address] [place] Chloride [Moles/Vol] 99 mmol/L Normal 98-107 [facility] Comment on above: Order Comment: Speci men Type: BLOOD SPECIMENOrdering Facility: [place] Address: [address] [place] [address] Performed By: #### 3 016-3, , , LIPNF ####[facility] LABORATORYCLIA [id number] [place] [address] [place] CO2 [Moles/Vol] 21 mmol/L Low 22-30 [facility] Comment on above: Order Comment: Speci men Type: BLOOD SPECIMENOrdering Facility: [place] Address: [address] [place] [address] Performed By: #### 3 016-3, , , LIPNF ####[facility]ATORYCLIA [id number] [place] [id number] [place] Creatinine [Mass/Vol] 0.87 mg/dL Normal 0.58-0.96 [facility] Comment on above: Order Comment: Speci men Type: BLOOD SPECIMENOrdering Facility: [place] Address: [address] [place] [address] Performed By: #### 3 016-3, , , LIPNF ####[facility] [id number] [address] OF [facility] Creatinine and Glomerular filtration rate.predicted panel (S/P/Bld) 78 mL/min/1.73m??? Normal >=60 [facility] Comment on above: Order Comment: Specdenver kang Type: BLOOD SPECIMENOrdering Facility: [place] Address: [address] [place] [address] Result Comment: Daisha mated Glomerular Filtration Rate (eGFR) is calculated using the 2020 CKD-EPI creatinine equation. This equation utilizes serum creatinine, sex, and age as parameters. The creatinine assay has traceable calibration to isotope dilution-mass spectrometry. Refer to KDIGO guidelines for clinical interpretation. In patients with unstable renal function, e.g. those with acute kidney injury, the eGFR may not accurately reflect actual GFR. Performed By: #### 3 016-3, 40296-8, 32917-8, LIPNF ####[facility] [id number] [address] STATES OF [facility] Glucose [Mass/Vol] 80 mg/dL Normal 74-99 [facility] Comment on above: Order Comment: Zena kang Type: BLOOD SPECIMENOrdering Facility: [place] Address: [address] [place] [address] Result Comment: The [place] Diabetes [employer] (ADA) provides guidance for cutoff values for fasting glucose and random glucose. The ADA defines fasting as no caloric intake for at least 8 hours. Fasting plasma glucose results between 100 to 125 mg/dL indicate increased risk for diabetes (prediabetes).Fasting plasma glucose results greater than or equal to 126 mg/dL meet the criteria for diagnosis of diabetes. In the absence of unequivocal hyperglycemia, results should be confirmed by repeat testing. In a patient with classic symptoms of hyperglycemia or hyperglycemic crisis, random plasma glucose results greater than or equal to 200 mg/dL meet the criteria for diagnosis of diabetes.Reference: Standards of Medical Care in Diabetes 2016, [place] [employer]. Diabetes Care. 2016.39(Suppl 1). Performed By: #### 3 016-3, 34712-8, 93717-1, LIPNF ####[facility] [id number] [place] [address] [place] Potassium [Moles/Vol] 4.3 mmol/L Normal 3.7-5.1 [facility] Comment on above: Order Comment: Speci men Type: BLOOD SPECIMENOrdering Facility: [place] Address: [address] [place] [address] Performed By: #### 3 016-3, 80226-5, 48579-0, LIPNF ####[facility] LABORATORYCLIA [id number] [place] [address] [place] Protein [Mass/Vol] 9.6 g/dL High 6.3-8.0 [facility] Comment on above: Order Comment: Speci men Type: BLOOD SPECIMENOrdering Facility: [place] Address: [address] [place] [address] Performed By: #### 3 016-3, 82816-9, 74557-5, LIPNF ####[facility]PITALCLIA [id number] [place] [address] [place] Sodium [Moles/Vol] 129 mmol/L Low 136-144 [facility] Comment on above: Order Comment: Speci men Type: BLOOD SPECIMENOrdering Facility: [place] Address: [address] [place] [address] Performed By: #### 3 016-3, 90298-5, 45713-7, LIPNF ####[facility] LABORATORYCLIA [id number] [place] [id number] [place] Urea nitrogen [Mass/Vol] 21 mg/dL Normal 7-21 [facility] Comment on above: Order Comment: Speci men Type: BLOOD SPECIMENOrdering Facility: [place] Address: [address] [place] [address] Performed By: #### 3 016-3, 16064-1, 25109-3, LIPNF ####[facility] LABORATORYCLIA [id number] [place] [id number] [place] HbA1c (Bld)on 06-09-2024 Average glucose Estimated from glycated hemoglobin (Bld) [Mass/Vol] 120 mg/dL Normal [facility] Comment on above: Order Comment: Zena kang Type: BLOOD SPECIMENOrdering Facility: [place] Address: [address] [place] [address] Result Comment: eAG: (Estimated average glucose) is a calculated value from HgbA1c and is branch customer service representative of the average blood glucose level in the last 2-3 month period. Performed By: #### 5 5454-3 ####[facility] LABCLIA [id number] [place] [id number] [place] HbA1c (Bld) [Mass fraction] 5.8 % High 4.3-5.6 [facility] Comment on above: Order Comment: Zena kang Type: BLOOD SPECIMENOrdering Facility: [facility] Address: [address] [place] [address] Result Comment: Amer ican Diabetes Association guidelines indicate that patients with HgbA1c in the range 5.7-6.4% are at increased risk for development of diabetes, and intervention by lifestyle modification may be beneficial. HgbA1c greater or equal to 6.5% is considered diagnostic of diabetes. Performed By: #### 5 5454-3 ####[facility] LABCLIA [id number] [place] [address] [place] LIPID PANEL, NONFASTINGon Cholesterol [Mass/Vol] 131 mg/dL Normal <200 [facility] Comment on above: Order Comment: Zena kang Type: BLOOD SPECIMENOrdering Facility: [facility] Address: [address] [place] [address] Result Comment: <200 mg/dL, Desirable 200-239 mg/dL, Borderline high>239 mg/dL, High Performed By: #### 3 016-3, 58219-0, 58664-8, LIPNF ####[facility] LABORATORYCLIA [id number] [place] [address] [place] HDL CHOLESTEROL, NF 30 mg/dL Low >39 [facility] Comment on above: Order Comment: Zena kang Type: BLOOD SPECIMENOrdering Facility: [facility] Address: [address] [place] [address] Result Comment: 40-5 9 mg/dL, Acceptable>59 mg/dL, High: Negative risk factor for coronary heart disease<40 mg/dL, Low: Positive risk factor for coronary heart disease Performed By: #### 3 016-3, 55254-3, 37562-5, LIPNF ####[facility] LABORATORYCLIA [id number] [place] [address] [place] [facility] LDL CHOLESTEROL, NF 76 mg/dL Normal <100 [facility] Comment on above: Order Comment: Speci men Type: BLOOD SPECIMENOrdering Facility: [facility] Address: [address] [place] [address] Result Comment: <100 mg/dL, Optimal 100-129 mg/dL, Near optimal/above optimal 130-159 mg/dL, Borderline high 160-189 mg/dL, High>189 mg/dL, Very highSecondary prevention optimal LDL Cholesterol levels are recommended to be < 70 mg/dL Performed By: #### 3 016-3, 84759-0, , LIPNF ####[facility] LABORATORYCLIA [id number] [address] STATES OF [facility] LDL/HDL RATIO, NF 2.53 mg/dL Normal <2.54 [facility] Comment on above: Order Comment: Speci men Type: BLOOD SPECIMENOrdering Facility: [facility] Address: [address] [place] [address] Result Comment: Shalini luna:1. National Cholesterol Education Program ATP III Guideline At-A-Glance Quick Desk Reference: National Heart, Lung, and Blood [place]. National Institutes of Health. 2001: NIH Publication No. 01-3305.2. An International Atherosclerosis Society position paper: global recommendations for the management of dyslipidemia: executive summary, Atherosclerosis. 2014: 232(2):410-413. Performed By: #### 3 016-3, 68219-5, 43951-9, LIPNF ####[facility] LABORATORYCLIA [id number] [place] [address] [place] NON HDL CHOL, NF 101 mg/dL Normal <130 [facility] Comment on above: Order Comment: Speci men Type: BLOOD SPECIMENOrdering Facility: [facility] Address: [address] [place] [address] Result Comment: <130 mg/dL, Optimal 130-159 mg/dL, Near optimal/above optimal 160-189 mg/dL, Borderline high 190-219 mg/dL, High>219 mg/dL, Very highSecondary prevention optimal non HDL Cholesterol levels are recommended to be <100 mg/dL Performed By: #### 3 016-3, , , LIPNF ####[facility] LABORATORYCLIA [id number] [place] [address] [place] T CHOL/HDL RATIO NF 4.37 mg/dL Normal <5.10 [facility] Comment on above: Order Comment: Speci men Type: BLOOD SPECIMENOrdering Facility: [facility] Address: [address] [place] [address] Performed By: #### 3 016-3, , , LIPNF ####[facility] LABORATORYCLIA [id number] [place] [address] [place] TRIGLYCERIDES, NF 123 mg/dL Normal <150 [facility] Comment on above: Order Comment: Speci men Type: BLOOD SPECIMENOrdering Facility: [facility] Address: [address] [place] [address] Result Comment: <150 mg/dL, Normal 150-199 mg/dL, Borderline high 200-499 mg/dL, High>499 mg/dL, Very high Performed By: #### 3 016-3, , , LIPNF ####[facility] LABORATORYCLIA [id number] [place] [address] [place] VLDL CHOLESTEROL, NF 25 mg/dL Normal <30 [facility] Comment on above: Order Comment: Speci men Type: BLOOD SPECIMENOrdering Facility: [facility] Address: [address] [place] [address] Performed By: #### 3 016-3, , 89176-5, LIPNF ####[facility] LABORATORYCLIA [id number] [place] [address] [place] Magnesium SerPl-ncon 06-09 Magnesium [Mass/Vol] 1.6 mg/dL Low 1.7-2.3 [facility] Comment on above: Order Comment: Speci men Type: BLOOD SPECIMENOrdering Facility: [facility] Address: [address] [place] [address] Performed By: #### 3 016-3, 15377-8, 02048-6, LIPNF ####[facility] LABORATORYCLIA [id number] [place] [id number] [place] TSH SerPl-aCncon 06-09-2024 TSH Qn 4.660 m[IU]/L High 0.270-4.200 [facility] Comment on above: Order Comment: Speci men Type: BLOOD SPECIMENOrdering Facility: [facility] Address: [address] [place] [address] Performed By: #### 3 016-3, 73214-4, 77756-6, LIPNF ####[facility] H[facility]PITALCLIA [id number] [place] [address] [place] Vit B12 SerPl-mCncon 025 Cobalamin (Vitamin B12) [Mass/Vol] 454 pg/mL Normal 232-1245 [facility] Comment on above: Order Comment: Speci men Type: BLOOD SPECIMENOrdering Facility: [facility] Address: [address] [place] [address] Performed By: #### 2 132-9 ####[facility] LABORATORYCLIA [id number] [place] [address] [place] CNPNon 06-03-2024 CNPN Normal [facility] CNPNon 05-31-2024 CNPN Normal [facility] CNPNon 05-30-2024 CNPN Normal [facility] CNPTOUTREACHon 05-09-2024 CNPTOUTREACH Normal [facility] CNOVon 04-25-2024 CNOV Normal [facility] Emergency Department Summary on 04-22-2024 Emergency Department Summary [facility] Medical Records Department [address] [place] [address] Emergency Department Summary 04/22/24 MR#: [id number] Acct: [id number] Name: JESUS ZEPEDA Rep #: [id number] : 1965 58 From: [employer] PCP: Dr. Barak Tiwari MD Status:DEP ER Location: ED HPI History of Present Illness Chief Complaint: Cellulitis Narrative Narrative: Patient is a 58-year-old female with history of CHF, diabetes, hypertension hyperlipidemia who presents to the emergency department with complaints of infection, lump to the right arm. Patient states she is noticed it about 2 weeks. Patient states that the getting more painful, she is feeling more ill and is here for evaluation. Patient states she has subjective fever and chills. Denies any other injury. [facility] Medical History Wears glasses Cancer Thyroid disease Pulmonary embolism Migraine headache History of IBS Heartburn History of edema History of stress test History of echocardiogram Cardiology follow-up encounter History of ulceration Essential hypertension COPD (chronic obstructive pulmonary disease) GI bleed Morbid obesity with BMI of 40.0-44.9, adult Abnormal echocardiogram CHF (congestive heart failure) Bilateral lower extremity edema Cellulitis of left leg Symptomatic anemia Anemia COVID-19 virus infection ( 01/2022) Thyroid cancer Postoperative primary hypothyroidism Depression Arthritis Low iron Dietary restriction Non-smoker Shortness of breath on exertion History of pain when walking Nausea Abdominal pain Epigastric pain Cholelithiasis Nontoxic multinodular goiter Hypothyroid Type 2 diabetes mellitus Hyperlipidemia Asthma Migraines Home Medications ???Medication ???Instructions ???Recorded ???Last Taken ???Type ferrous sulfate 325 mg (65 mg 325 mg PO BID supplement 05/30/21 05/14/22 History iron) tablet (FeroSul) albuterol sulfate 90 mcg/actuation 2 puff inhalation Q6H PRN 05/14/22 05/14/22 History aerosol inhaler (Ventolin HFA) Shortness Of Breath fluorometholone 0.1 % eye 1 drp EACH EYE DAILY PRN EYE 05/14/22 05/13/22 History drops,suspension INFLAMMATION levothyroxine 200 mcg tablet 200 mcg PO MOTUWETHFRSA THYROID 05/14/22 05/14/22 History sitagliptin phosphate 50 1 tab PO BIDCM BLOOD SUGARS 05/14/22 05/14/22 History mg-metformin 1,000 mg tablet (Janumet) sucralfate 1 gram tablet (Carafate) 1 g PO BID GERD 05/14/22 05/14/22 History sumatriptan succinate 50 mg tablet 50 mg PO DAILY PRN Migraine 05/14/22 05/13/22 History Headache furosemide 40 mg tablet (Lasix) 40 mg PO DAILY 30 days #30 tabs 05/16/22 Unknown Rx ascorbic acid (vitamin C) 500 mg 500 mg PO DAILY SUPPLEMENT 07/17/22 Unknown History capsule,extended release (Vitamin C) budesonide-formoterol HFA 160 2 puff inhalation BID 07/17/22 Unknown History mcg-4.5 mcg/actuation aerosol inhaler (Symbicort) levothyroxine 200 mcg capsule 100 mcg PO ALTAMIRANO 07/17/22 Unknown History atorvastatin 20 mg tablet 20 mg PO DAILY 07/22/22 Unknown History cephalexin 500 mg capsule 500 mg PO Q12 post-operative 3 09/24/23 Unknown Rx days #6 CAPSULES cephalexin 500 mg capsule 500 mg PO Q12 post-operative 3 10/15/23 Unknown Rx days #6 CAPSULES carvedilol 25 mg tablet 12.5 mg (1/2 x 25 mg) PO BID #180 11/04/23 Unknown Rx tabs valsartan 160 mg tablet 160 mg PO DAILY #90 tabs 11/04/23 Unknown Rx cephalexin 500 mg capsule 500 mg PO Q6 10 days #40 CAPSULES 04/22/24 Unknown Rx sulfamethoxazole 800 1 tab PO BID #20 tabs 04/22/24 Unknown Rx mg-trimethoprim 160 mg tablet (Bactrim DS) Allergy/AdvReac Type Severity Reaction Status Date / Time tizanidine (From Zanaflex) Allergy Severe Shortness Verified 04/22/24 11:42 of breath latex Allergy Rash Verified 04/22/24 11:42 lisinopril AdvReac Other Verified 04/22/24 11:42 Family History Aunt Breast cancer metastatic to bone Father Diabetes Hypertension Heart disease Myocardial infarction Mother Diabetes Hypertension Heart murmur Thyroid disorder Brother Diabetes Hypertension Grandmother Pneumothorax Surgical History Hx of cystoscopy History of esophagogastroduodenoscopy (EGD) History of carpal tunnel release ( 2015) S/P partial thyroidectomy ( 2007) Hx of tubal ligation Hx of bilateral cataract extraction ( 2016) History of esophagogastroduodenoscopy (EGD) History of laparoscopic cholecystectomy ( 11/15/19) S/P partial thyroidectomy ( 2019) Social History Smoking Status: Never smoker second hand exposure: Yes alcohol intake: never substanc (more content not included)... Normal [facility] ANES POSTPROC EVALon 024 ANES POSTPROC EVAL HNO ID: [id number] Author: ANDREW VEGA MD Service: Anesthesiology Author Type: Physician Type: Anesthesia Postprocedure Evaluation Filed: 02/02/2024 14:59 Note Text: POST ANESTHESIA EVALUATION NOTE : 1965 Procedure Summary Date: 02/02/24 Room / Location: [place] / [place] Anesthesia Start: 1135 Anesthesia Stop: 1320 Procedures: HYSTERECTOMY VAGINAL UTERUS 250G OR LESS REMOVAL TUBE(S) (Pelvis) CYSTOSCOPY (Pelvis) COMBINED ANTERIOPOSTERIOR COLPORRHAPHY W/ENTEROCELE REPAIR INCLUDING CYSTOURETHROSCOPY WHEN PERFORMED (Bilateral: Pelvis) VAGINECTOMY PARTIAL (Bilateral: Pelvis) Diagnosis: Uterine prolapse Midline cystocele Rectocele (Uterine prolapse [N81.4]) (Midline cystocele [N81.11]) (Rectocele [N81.6]) Surgeons: Florencia Lundy MD Responsible Provider: Andrew Vega MD Anesthesia Type: general ASA Status: 3 Anesthesia Type: general Airway Type: ETT Last Vitals Vitals Value Taken Time BP 168/94 02/02/24 1445 Temp 36.5 ?C (97.7 ?F) 02/02/24 1320 Pulse 64 02/02/24 1448 Resp 18 02/02/24 1448 SpO2 97 % 02/02/24 1448 Vitals shown include unfiled device data. Post Anesthesia Patient Status Patient Evaluation: bedside. Neurological Status: aware and responsive. Pulmonary Status: breathing comfortably on supplemental oxygen Airway Control: returned to baseline unsupported. Cardiovascular Status: stable. Pain Management: clinically adequate Postoperative Hydration: acceptable. Intraoperative Events: no significant anesthesia events Post Operative Nausea/Vomiting Status: no significant post operative nausea or vomiting Recommendation: continue current plan of care. Anesthesia Observations No Documentation SIGNATURE: Andrew Vega MD PATIENT NAME: Jesus Zepeda DATE: February 02, 2024 TIME: 2:58 PM CSN: [id number] [facility] ANES PRE-OPon 02-02-2024 ANES PRE-OP HNO ID: [id number] Author: ANDREW VEGA MD Service: Anesthesiology Author Type: Physician Type: Anesthesia Preprocedure Evaluation Filed: 02/02/2024 10:43 Note Text: ANESTHESIOLOGY DAY OF SURGERY NOTE : 1965 Procedure Information Date/Time: 02/02/24 1130 Procedures: HYSTERECTOMY VAGINAL UTERUS 250G OR LESS REMOVAL TUBE(S) AND/OR OVARY(S) CYSTOSCOPY (Pelvis) COMBINED ANTERIOPOSTERIOR COLPORRHAPHY W/ENTEROCELE REPAIR INCLUDING CYSTOURETHROSCOPY WHEN PERFORMED (Bilateral) VAGINECTOMY PARTIAL (Bilateral) Location: [place] Surgeons: Florencia Lundy MD Estimated body mass index is 35.94 kg/m? as calculated from the following: Height as of 01/26/24: 165.1 cm (5' 5). Weight as of 01/26/24: 98 kg (216 lb). Most recent hematocrit and potassium results: Hematocrit 34.6 01/26/2024 Potassium 4.5 01/26/2024 Relevant Problems CARDIO (+) Aortic valve regurgitation (+) Chronic diastolic congestive heart failure (HCC) (+) Congestive heart failure (HCC) (+) Dyspnea on exertion (+) Essential hypertension, benign (+) Migraines (+) Pulmonary hypertension (HCC) ENDO (+) Type 2 diabetes mellitus with diabetic neuropathy, with long-term current use of insulin (HCC) GI (+) Gastroesophageal reflux disease without esophagitis NEURO-PSYCH (+) Migraines PULMONARY (+) Chronic obstructive pulmonary disease (HCC) (+) Dyspnea on exertion I - PHYSICAL EVALUATION AIRWAY Patient intubated: No. Tracheostomy tube not present Mallampati: II. TM distance: >3 FB. Neck ROM: full ROM without neurological symptoms. Mouth opening: adequate. Short neck: no. Thick neck: no DENTAL Dental findings: teeth intact. Additional exam findings: no II - ANESTHESIA PLAN ASA Score: 3 Anesthetic Plan: general Airway type: ETT NPO Status: adequate Beta Ashley Monitoring Plan Monitoring plan: standard ASA. Post Procedure Analgesic Plan Postoperative analgesic plan: parenteral or oral opioids. Informed Consent Anesthetic risks, benefits, alternatives, personnel and consent discussed: yes. Patient / Responsible Libertarian agrees to proceed: yes Patient / Surrogate agrees to blood products: Yes DNR status not reviewed with patient and/or family prior to surgery. Significant changes in the patient condition since the History and Physical, not otherwise documented in primary service progress note: no. Potential Anesthesia issues that may suggest increased risk of complications or contraindication to planned procedure: potential difficult IV access. Vitals Value Taken Time BP 182/91 02/02/24 1039 Pulse Resp Temp SpO2 93 % 02/02/24 1037 Vitals shown include unfiled device data. Facility-Administered Medications as of 02/02/2024 Medication Dose Route Frequency phenazopyridine 200 mg tab(s) (PYRIDIUM) 200 mg ORAL ONCE lidocaine (PF) 10 mg/mL (1 %) 1-2 mg injection (XYLOCAINE) 0.1-0.2 mL INTRADERMAL PRN lactated ringers iv infusion 5-30 mL/hr INTRAVENOUS CONTINUOUS NaCl 0.9% iv flush bag 20 mL INTRAVENOUS PRN acetaminophen 975 mg tab(s) (TYLENOL) 975 mg ORAL Pre-Op Once celecoxib 400 mg cap(s) (CeleBREX) 400 mg ORAL Pre-Op Once ceFAZolin iv piggyback 2 g in D5W (iso-osmotic) 100 mL (ANCEF) 2 g INTRAVENOUS Pre-Op Once Outpatient Medications as of 02/02/2024 Medication Sig iron bisgly,ps-FA-B-C#12-succ 65 mg-65 mg -1,000 mcg (24) tab Take by mouth two times a day. sucralfate (CARAFATE) 1 gram tablet Take 1 tablet by mouth two times a day. SUMAtriptan (IMITREX) 50 mg tablet Take 1 tablet (50 mg) by mouth as needed for migraine headache (see administration instructions). levothyroxine (SYNTHROID) 200 mcg tablet Take 1 tablet by mouth once daily. Thursday through Thursday, 1/2 tab on Thursday valsartan (DIOVAN) 160 mg tablet Take 1 tablet by mouth once daily. SITagliptin-metFORMIN (JANUMET) 50-1,000 mg per tablet Take 1 tablet by mouth two times a day with meals. carvedilol (COREG) 25 mg tablet Take 0.5 tablets by mouth two times a day. pantoprazole DR (PROTONIX) 40 mg tablet Take 1 tablet by mouth two times a day. Take on empty stomach, 1/2 hr before meal. albuterol HFA (PROVENTIL HFA, VENTOLIN HFA) 90 mcg/actuation inhaler Inhale 2 Puffs as instructed every 6 hours as needed. budesonide-formoterol (SYMBICORT) 160-4.5 mcg/actuation inhaler Inhale 2 Puffs as instructed two times a day. atorvastatin (LIPITOR) 20 mg tablet Take 1 tablet by mouth once daily. For cholesterol. blood sugar diagnostic (BLOOD GLUCOSE TEST) test strip Test blood sugar(s) 4 times daily. Dx: Type 2 DM - Controlled E11.9 Insulin: Yes Lancets lancets Test blood sugar(s) 4 times daily. Dx: Type 2 DM - Controlled E11.9 Insulin: Yes fluorometholone (FML LIQUID FILM) 0.1 % ophthalmic suspension INSTILL 1 DROP IN BOTH EYES 1-2 TIMES PER DAY blood sugar diagnostic (BLOOD GLUCOSE TEST) test strip Test blood sugar(s) 4 times daily. Dx: Type 2 DM - Controlled E11.9 Insulin: (more content not included)... [facility] NURSING PROGon 02-02-2024 NURSING PROG HNO ID: [id number] Author: JUANITA MENENDEZ, RN Service: Nursing Author Type: Registered Nurse Type: Nursing Progress Note Filed: 02/02/2024 17:19 Note Text: Pt states she does not want to wait on a room and wants to go home. I called her son and he is willing to stay with his mom this evening. [employer] res paged and notified. Pt okay to go home and DC instructions are being completed at this time. Pt will get a ride via her insurance home. [facility] NURSING PROG HNO ID: [id number] Author: PATTY RENTERIA RN Service: Nursing Author Type: Registered Nurse Type: Nursing Progress Note Filed: 02/02/2024 13:30 Note Text: Pt. States she has no family present and no one to stay with patient at home. Pt. Came by transport company today. Doctor paged to update Normal [facility] OPERATIVE NOon 02-02-2024 OPERATIVE NO HNO ID: [id number] Author: FLORENCIA LUNDY MD Service: Urogynecology Author Type: Physician Type: Operative Report Filed: 02/02/2024 13:53 Note Text: OPERATIVE/PROCEDURE REPORT Surgery/Procedure Date: 02/02/24 LOG ID: [id number] SURGERY/PROCEDURE DATE: 02/02/2024 INCISION/PROCEDURE START TIME: 12:01 PM INCISION CLOSE/PROCEDURE END TIME: 12:59 PM Surgeon(s)/Proceduralist(s ) and Research Investigator(s): Surgeon(s): Florencia Lundy MD Fickau, Brittany, MD Pre-Op/Pre-Procedure Diagnosis: uterovaginal prolapse Post-Op/Post-Procedure Diagnosis: Same Procedure(s): Procedure(s): HYSTERECTOMY VAGINAL UTERUS 250G OR LESS REMOVAL TUBE(S) CYSTOSCOPY COMBINED ANTERIOPOSTERIOR COLPORRHAPHY W/ENTEROCELE REPAIR INCLUDING CYSTOURETHROSCOPY WHEN PERFORMED VAGINECTOMY PARTIAL Anesthesia: General Procedure Details: Patient was taken to the operating room where a surgical timeout occurred. The patient was placed in dorsal lithotomy position and prepped and draped in sterile fashion. general anesthesia was initiated. A hensley catheter was placed in the patients bladder. Vaginal Hysterectomy: A weighted speculum was placed in the patient's vagina. A curved Andrew was used to retract the anterior vaginal wall and bladder out of the field. The cervix was grasped with two Adrian traction forceps. The cervix was then injected with 0.25% marcaine mixed with epinephrine. A circumferential incision with a 10 blade scalpel was then made incising the vagina mucosa down to the body of the cervix. The posterior vaginal epithelium was then dissected off the cervix until the peritoneum of the pouch of Anam was reached. This was then grasped and cut with Baxter scissors entering the peritoneal cavity. A long weighted speculum was then placed in the posterior cul-de-sac. Attention was then turned to the anterior vaginal wall epithelium which was grasped with pickups and dissected, along with the bladder, off of the cervix and the uterus until the peritoneal reflection was visualized. This was then grasped with pickups and incised with Metzenbaum scissors, entering the peritoneal cavity anteriorly. The hensley bulb was palpated to confirm that the bladder was not perforated. The Andrew was then used to retract the bladder out of the operative field. A curved Yuniel clamp was then used to clamp, cut and suture ligate the uterosacral ligament on the patient's left side. This was repeated on the contralateral side. Next, the vessels of the broad ligament including the uterine vessels were clamped, cut and suture ligated bilaterally. Finally, the utero-ovarian ligament was clamped cut and suture ligated; first with a tie on a passer and then with a Yuniel stitch. The uterus and cervix were passed off the sterile field and sent to pathology. The fallopian tubes were identifiedbilaterally and excised using bovie electrocautery. The tubes were sent to pathology. The uterus and cervix were sent to pathology. The vaginal cuff was closed with interrupted figure of eight sutures using 0-vicryl. Anterior colporrhaphy: The vaginal epithelium overlying the anterior vaginal wall was grasped with two Allis clamps, injected with 0.25% Marcaine with epinephrine and a midline incision was made over the herniation of the anterior vaginal wall. The underlying pubocervical fascia was dissected off the overlying vaginal epithelium until the herniation of the pubocervical fascia was completely exposed. Hemostasis was achieved with electrosurgical cautery. The herniation was repaired in the traditional fashion using imbricating horizontal mattress sutures of 2-O PDS on a CT-1 needle. Once the hernation was completely repaired, the redundant vaginal epithelium was excised and the incision was closed with a running, locking 3-O vicryl suture. Excellent hemostasis was noted. Cystoscopy was then performed and Bilateral efflux of urine was seen from ureteral orifices. Posterior colporhaphy: A self-retaining retractor was used to retract the labia and vagina for adequate visualization and exposure. The vaginal epithelium overlying the posterior vaginal wall was grasped with two Allis clamps, injected with 0.25% Marcaine with epinephrine and a midline incision was made over the herniation of the posterior vaginal wall. The underlying rectovaginal fascia was dissected off the overlying vaginal epithelium until the herniation of the rectovaginal fascia was completely exposed. Hemostasis was achieved with electrosurgical cautery. With placement of a rectal finger, the herniation was repaired in the traditional fashion using imbricating horizontal mattress sutures of 2-O PDS on a CT-1 needle. Once the hernation was completely repaired, the redundant vaginal epithelium was excised and the incision was closed with a running, locking 3-O vicryl suture. Excellent hemostasis was noted. Vaginectomy: After the redundant vaginal epithelium was (more content not included)... Normal [facility] SURGICAL PATHOLOGYon CASE REPORT Normal [facility] Comment on above: Order Comment: Speci men Type: TISSUE SPECIMENOrdering Facility: [facility] Address: [address] [place] [address] Result Comment: Surg ica Pathology Report Case: [id number] Authorizing Provider: Florencia Lundy MD Collected: 02/02/2024 12:11 PM Ordering Location[place] [facility] [place] Received: 02/03/2024 07:14 AM Pathologist: Nickie Chacko MD Specimens: A) - Uterus and Cervix, UTERUS, CERVIX, RIGHT FALLOPIAN TUBE B) - Fallopian Tube, Left, Resection Performed By: #### S ####[facility] [id number] STATES OF [facility] CLINICAL HISTORY Normal [facility] [facility] Comment on above: Order Comment: Speci men Type: TISSUE SPECIMENOrdering Facility: [facility] Address: [address] [place] [address] Result Comment: Pre- op diagnosis: Uterine prolapse [N81.4] Midline cystocele [N81.11] Rectocele [N81.6] Performed By: #### S ####[facility]ORYIA [id number] [address] FINAL DIAGNOSIS Normal [facility] Comment on above: Order Comment: Speci men Type: TISSUE SPECIMENOrdering Facility: [facility] Address: [address] [place] [address] Result Comment: A. U terus, cervix, right fallopian tube, vaginal hysterectomy with right salpingectomy: -- Endometrium: Benign endometrial polyp in the background of inactive endometrium with cystic atrophy. -- Myometrium: Adenomyosis and leiomyomata. -- Cervix: Squamous mucosa with focal features suggestive but not definitive for low-grade squamous intraepithelial neoplasia (ISABEL-1) in the background of parakeratosis. Mucosal ulceration with underlying acutely and chronically inflamed granulation tissue proliferation. -- Fallopian tube: No significant histopathologic abnormalities. B. Left fallopian tube, salpingectomy: -- Chronic salpingitis and paratubal cyst. Performed By: #### S ####[facility]ATORYCLIA [id number] [address] FINAL PERFORMING LAB Normal [facility] Comment on above: Order Comment: Speci men Type: TISSUE SPECIMENOrdering Facility: [facility] Address: [address] [place] [address] Result Comment: Diag nostic interpretation performed at [facility], [address] [place] [address] CLIA# [id number] Auto Brake Mechanic: Esa Barahona M.D. Performed By: #### S ####[facility]ORYCLIA [id number] [address] GROSS DESCRIPTION Normal [facility] Comment on above: Order Comment: Speci men Type: TISSUE SPECIMENOrdering Facility: [facility] Address: [address] [place] [address] Result Comment: A. U terus and Cervix Received in formalin labeled uterus, cervix, right fallopian tube is a uterus with attached attached cervix and attached right fallopian tube weighing overall 77 g. The uterus and attached cervix measures 7.5 x 4.5 x 0.5 cm. The serosal surface is purple-pink and dull with possible hemorrhagic powder blackburn. The ectocervix is pink-martinez smooth and glistening. The cervical os is fishmouth in contour. The endocervical canal measures 3 cm in length. The endometrial cavity measures 3 cm in length and 2 cm in width. The endometrium is pink-martinez and measures 0.3 cm in thickness. No polyps or masses are identified throughout. The myometrium measures 1.3 cm in thickness. A 0.4 cm intramural nodule is identified. The cut surfaces are pink-martinez whorled and rubbery. The right fallopian tube with attached fimbriated end measures 7 cm in length and 0.6 cm in diameter. A metallic ligation clip is identified. No paratubal cysts are identified. Loss Prevention Analyst sections are submitted as follows: A1: Anterior cervix, 12:00 A2: Posterior cervix, 6:00 A3: Anterior uterine wall, full-thickness A4: Posterior uterine wall, full-thickness A5: Right fallopian tube fimbriated end bisected and mid cross-section B. Fallopian Tube, Left, Resection Received in formalin labeled left fallopian tube is a fallopian tube measuring 4.5 cm in length and 0.8 cm in diameter. A definitive fimbriated end is not grossly appreciated. Metallic ligation clips are present. A 0.5 cm smooth lined cystic structure is identified. Loss Prevention Analyst sections are submitted in B1. Gross examination performed at [facility], [address] [place] [address] CLIA#[id number] OLS February 03, 2024 9:03 AM Performed By: #### S ####[facility]ORATORYCLIA [id number] [place] [address] [place] Basic metabolic 2000 panelon 01-26-2024 Anion gap [Moles/Vol] 10 mmol/L 8 - 15 mmol/L [facility] Calcium [Mass/Vol] 9.9 mg/dL 8.5 - 10. 2 mg/dL [facility] Chloride [Moles/Vol] 104 mmol/L 98 - 107 mmol/L [facility] CO2 [Moles/Vol] 21 mmol/L Low 22 - 30 mmol/L [facility] Creatinine [Mass/Vol] 0.82 mg/dL 0.58 - 0.96 mg/dL [facility] GFR/1.73 sq M.predicted among non-blacks MDRD (S/P/Bld) [Vol rate/Area] 84 mL/min/{1.73_m2} - PINF [facility] Comment on above: Estimated Glomerular Filtration Rate (eGFR) is calculated using the 2020 CKD-EPI creatinine equation. This equation utilizes serum creatinine, sex, and age as parameters. The creatinine assay has traceable calibration to isotope dilution-mass spectrometry. Refer to KDIGO guidelines for clinical interpretation. In patients with unstable renal function, e.g. those with acute kidney injury, the eGFR may not accurately reflect actual GFR. Glucose [Mass/Vol] 92 mg/dL 74 - 99 mg/dL [facility] Comment on above: The [place] Diabete s Association (ADA) provides guidance for cutoff values for fasting glucose and random glucose. The ADA defines fasting as no caloric intake for at least 8 hours. Fasting plasma glucose results between 100 to 125 mg/dL indicate increased risk for diabetes (prediabetes). Fasting plasma glucose results greater than or equal to 126 mg/dL meet the criteria for diagnosis of diabetes. In the absence of unequivocal hyperglycemia, results should be confirmed by repeat testing. In a patient with classic symptoms of hyperglycemia or hyperglycemic crisis, random plasma glucose results greater than or equal to 200 mg/dL meet the criteria for diagnosis of diabetes. Reference: Standards of Medical Care in Diabetes 2016, [place] Diabetes Association. Diabetes Care. 2016.39(Suppl 1). Interpretation and review of laboratory results Abnormal [facility] Potassium [Moles/Vol] 4.5 mmol/L 3.7 - 5.1 mmol/L [facility] Sodium [Moles/Vol] 135 mmol/L Low 136 - 144 mmol/L [facility] Urea nitrogen [Mass/Vol] 19 mg/dL 7 - 21 mg/dL [facility] Anion gap [Moles/Vol] 10 mmol/L Normal 8-15 [facility] Comment on above: Order Comment: Zena kang Type: BLOOD SPECIMEN [facility]ing [facility]: [facility] Address: [address] [place] [address] Performed By: #### 2 4321-2 #### [facility] CLIA [id number] [address] [place] [address] [place] Calcium [Mass/Vol] 9.9 mg/dL Normal 8.5-10.2 [facility] Comment on above: Order Comment: Zena kang Type: BLOOD SPECIMEN [facility]ing Facility: [facility] Address: [address] [place] [address] Performed By: #### 2 4321-2 #### [facility] CLIA [id number] [address] OF [place] Chloride [Moles/Vol] 104 mmol/L Normal 98-107 [facility] Comment on above: Order Comment: Speci men Type: BLOOD SPECIMEN [facility]ing [facility]: [facility] Address: [address] [place] [address] Performed By: #### 2 4321-2 #### [facility] CLIA [id number] [address] STATES OF [facility] CO2 [Moles/Vol] 21 mmol/L Low 22-30 [facility] Comment on above: Order Comment: Speci men Type: BLOOD SPECIMEN [facility]ing [facility]: [facility] Address: [address] [place] [address] Performed By: #### 2 4321-2 #### [facility] CLIA [id number] [address] OF [facility] Creatinine [Mass/Vol] 0.82 mg/dL Normal 0.58-0.96 [facility] Comment on above: Order Comment: Speci men Type: BLOOD SPECIMEN [facility]ing [facility]: [facility] Address: [address] [place] [address] Performed By: #### 2 4321-2 #### [facility] CLIA [id number] [address] Creatinine and Glomerular filtration rate.predicted panel (S/P/Bld) 84 mL/min/1.73m??? Normal >=60 [facility] Comment on above: Order Comment: Speci men Type: BLOOD SPECIMEN [facility]ing Facility: [facility] Address: [address] [place] [address] Result Comment: Daisha mated Glomerular Filtration Rate (eGFR) is calculated using the 2020 CKD-EPI creatinine equation. This equation utilizes serum creatinine, sex, and age as parameters. The creatinine assay has traceable calibration to isotope dilution-mass spectrometry. Refer to KDIGO guidelines for clinical interpretation. In patients with unstable renal function, e.g. those with acute kidney injury, the eGFR may not accurately reflect actual GFR. Performed By: #### 2 4321-2 #### [facility] CLIA [id number] [address] [place] [address] [place] Glucose [Mass/Vol] 92 mg/dL Normal 74-99 [facility] Comment on above: Order Comment: Zena kang Type: BLOOD SPECIMEN [facility]ing [facility]: [facility] Address: [address] [place] [address] Result Comment: The [place] Diabetes Association (ADA) provides guidance for cutoff values for fasting glucose and random glucose. The ADA defines fasting as no caloric intake for at least 8 hours. Fasting plasma glucose results between 100 to 125 mg/dL indicate increased risk for diabetes (prediabetes). Fasting plasma glucose results greater than or equal to 126 mg/dL meet the criteria for diagnosis of diabetes. In the absence of unequivocal hyperglycemia, results should be confirmed by repeat testing. In a patient with classic symptoms of hyperglycemia or hyperglycemic crisis, random plasma glucose results greater than or equal to 200 mg/dL meet the criteria for diagnosis of diabetes. Reference: Standards of Medical Care in Diabetes 2016, [place] Diabetes Association. Diabetes Care. 2016.39(Suppl 1). Performed By: #### 2 4321-2 #### [facility] CLIA [id number] [address] [place] [address] [place] Potassium [Moles/Vol] 4.5 mmol/L Normal 3.7-5.1 [facility] Comment on above: Order Comment: Zena kang Type: BLOOD SPECIMEN [facility]ing [facility]: [facility] Address: [address] [place] [address] Performed By: #### 2 4321-2 #### [facility] CLIA [id number] [address] [place] [address] [place] Sodium [Moles/Vol] 135 mmol/L Low 136-144 [facility] Comment on above: Order Comment: Zena kang Type: BLOOD SPECIMEN [facility]ing [facility]: [facility] Address: [address] [place] [address] Performed By: #### 2 4321-2 #### [facility] CLIA [id number] [address] [place] [address] [place] Urea nitrogen [Mass/Vol] 19 mg/dL Normal 7-21 [facility] Comment on above: Order Comment: Speci jorge luis Type: BLOOD SPECIMEN [facility]ing [facility]: [facility] Address: [address] [place] [address] Performed By: #### 2 4321-2 #### [facility] CLIA [id number] [address] STATES OF [facility] CBC panel Auto (Bld)on 01-25 Erythrocyte distribution width (RBC) [Ratio] 14.9 % 11.5 - 15.0 % [facility] Hematocrit (Bld) [Volume fraction] 34.6 % Low 36.0 - 46.0 % [facility] Hemoglobin (Bld) [Mass/Vol] 10.8 g/dL Low 11.5 - 15.5 g/dL [facility] Interpretation and review of laboratory results Abnormal [facility] MCH (RBC) [Entitic mass] 28.5 pg 26.0 - 34.0 pg [facility] MCHC (RBC) [Mass/Vol] 31.2 g/dL 30.5 - 36.0 g/dL [facility] MCV (RBC) [Entitic vol] 91.3 fL 80.0 - 100.0 fL [facility] Nucleated RBC (Bld) [#/Vol] NINF [facility] Platelet mean volume (Bld) [Entitic vol] 9.0 fL 9.0 - 12.7 fL [facility] Platelets (Bld) [#/Vol] 237 10*3/uL [facility] RBC (Bld) [#/Vol] 3.79 10*6/uL Low 3.90 - 5.2 0 m/uL [facility] WBC (Bld) [#/Vol] 6.01 10*3/uL [facility] Erythrocyte distribution width (RBC) [Ratio] 14.9 % Normal 11.5-15.0 [facility] Comment on above: Order Comment: Zena kang Type: BLOOD SPECIMEN [facility]ing [facility]: [facility] Address: [address] [id number] Performed By: #### 5 8410-2 #### [facility] CLIA [id number] [address] Hematocrit (Bld) [Volume fraction] 34.6 % Low 36.0-46.0 [facility] Comment on above: Order Comment: Speci men Type: BLOOD SPECIMEN [facility]ing [facility]: [facility] Address: [address] [place] [address] Performed By: #### 5 8410-2 #### [facility] CLIA [id number] [address] Hemoglobin (Bld) [Mass/Vol] 10.8 g/dL Low 11.5-15.5 [facility] Comment on above: Order Comment: Speci men Type: BLOOD SPECIMEN [facility]ing [facility]: [facility] Address: [address] [place] [address] Performed By: #### 5 8410-2 #### [facility] CLIA [id number] [address] STATES OF [facility] MCH (RBC) [Entitic mass] 28.5 pg Normal 26.0-34.0 [facility] Comment on above: Order Comment: Speci men Type: BLOOD SPECIMEN [facility]: [facility] Address: [address] [place] [address] Performed By: #### 5 8410-2 #### [facility] CLIA [id number] [address] STATES OF [facility] MCHC (RBC) [Mass/Vol] 31.2 g/dL Normal 30.5-36.0 [facility] Comment on above: Order Comment: Speci men Type: BLOOD SPECIMEN [facility]ing [facility]: [facility] Address: [address] [place] [address] Performed By: #### 5 8410-2 #### [facility] CLIA [id number] [address] MCV (RBC) [Entitic vol] 91.3 fL Normal 80.0-100.0 [facility] Comment on above: Order Comment: Speci men Type: BLOOD SPECIMEN [facility]ing [facility]: [facility] Address: [address] [place] [address] Performed By: #### 5 8410-2 #### [facility] CLIA [id number] [address] [place] Nucleated RBC (Bld) [#/Vol] 10*3/uL Normal <0.01 [facility] Comment on above: Order Comment: Speci men Type: BLOOD SPECIMEN [facility]: [facility] Address: [address] [place] [address] Performed By: #### 5 8410-2 #### [facility] CLIA [id number] [address] [place] Platelet mean volume (Bld) [Entitic vol] 9.0 fL Normal 9.0-12.7 [facility] Comment on above: Order Comment: Speci men Type: BLOOD SPECIMEN [facility]ing [facility]: [facility] Address: [address] [place] [address] Performed By: #### 5 8410-2 #### [facility] CLIA [id number] [address] [place] Platelets (Bld) [#/Vol] 237 10*3/uL Normal 150-400 [facility] Comment on above: Order Comment: Speci men Type: BLOOD SPECIMEN [facility]: [facility] Address: [address] [place] [address] Performed By: #### 5 8410-2 #### [facility] CLIA [id number] [address] [place] RBC (Bld) [#/Vol] 3.79 10*6/uL Low 3.90-5.20 [facility] Comment on above: Order Comment: Speci men Type: BLOOD SPECIMEN [facility]: [facility] Address: [address] [place] [address] Performed By: #### 5 8410-2 #### [facility] CLIA [id number] [address] [place] WBC (Bld) [#/Vol] 6.01 10*3/uL Normal 3.70-11.00 [facility] Comment on above: Order Comment: Speci men Type: BLOOD SPECIMEN [facility]: [facility] Address: [address] [id number] Performed By: #### 5 8410-2 #### [facility] CLIA [id number] [address] EKGon 01-26-2024 Electrocardiogram Ventricular Rate : 5 5 BPM Atrial Rate : 55 BPM P-R Interval : 178 ms QRS Duration : 144 ms Q-T Interval : 438 ms QTC Calculation(Bazett) : 419 ms Calculated P [place] : 14 degrees Calculated R [place] : -22 degrees Calculated T [place] : -13 degrees SINUS BRADYCARDIA WITH SINUS ARRHYTHMIA RIGHT BUNDLE BRANCH BLOCK LEFTWARD AXIS MINIMAL VOLTAGE CRITERIA FOR LVH, MAY BE NORMAL VARIANT ( R in aVL ) INFERIOR INFARCT , AGE UNDETERMINED ABNORMAL ECG NO PREVIOUS ECGS AVAILABLE Confirmed by MD RECINOS VINAYAK ([id number]) on 01/27/2024 12:26:41 PM NAME : JESUS ZEPEDA PID : [id number] : 1965 Gender : Female Race : ORD : Procedure Date : Jan 26 2024 10:23:20 Edit Date : Jan 27 2024 12:26:45 Diagnosis: SINUS BRADYCARDIA WITH SINUS ARRHYTHMIA RIGHT BUNDLE BRANCH BLOCK LEFTWARD AXIS MINIMAL VOLTAGE CRITERIA FOR LVH, MAY BE NORMAL VARIANT ( R in aVL ) INFERIOR INFARCT , AGE UNDETERMINED ABNORMAL ECG NO PREVIOUS ECGS AVAILABLE Confirmed by MD RECINOS VINAYAK ([id number]) on 01/27/2024 12:26:41 PM Test Reason : Location : 11 : [facility] Overread By : MD RECINOS VINAYAK Edited By : MD RECINOS VINAYAK Referred By : EDNA QURESHI Acquired by : EDNA QURESHI [facility] HISTORY PHYSICALon HISTORY PHYSICAL HNO ID: [id number] Author: EDNA QURESHI APRN.VEHICLE AND EQUIPMENT CLEANER Service: ? Author Type: Nurse Practitioner Type: H&P Filed: 01/26/2024 16:08 Note Text: [facility] HISTORY AND PHYSICAL EXAMINATION SERVICE DATE: 01/26/2024 SERVICE TIME: 3:55 PM PRIMARY CARE PHYSICIAN: Barak Tiwrai MD Assessment Patient has the following medical conditions which may affect emily-operative course: Chronic diastolic congestive heart failure (HCC) Managed by cardiology in [place]. 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 I will faxed request to [facility] last office note. Patient states she has not seen cardiology for a year or more. Not on lasix -Dg LE edema noted today. Type 2 diabetes mellitus with diabetic neuropathy, with long-term current use of insulin (HCC) Managed by PCP Keitht- hold two day before surgery. Check glucose DOS Hemoglobin A1C (%) Date Value 09/08/2023 5.8 10/01/2020 6.3 Chronic obstructive pulmonary disease (HCC) Managed by PCP who wants her to see pulmonary per patient. She has not yet scheduled an appointment with pulmonology. Denies COPD exacerbations in the last 6 months related to COPD. Does not use oxygen. Uses inhalers as prescribed. Uterine prolapse SEE [facility] , scheduled for surgery with Dr. Lundy 02-02-24 Aortic valve regurgitation Echo scanned in [facility] from 08-26-22: Essential hypertension, benign Well controlled per patient. Valsartan- hold day of surgery. See PAT instructions for BP medications. HLD (hyperlipidemia) Atorvastatin 20 mg Pulmonary hypertension (HCC) Echo scanned in [facility] from 08-26-22 showed Mild Pulm HTN. Gastroesophageal reflux disease without esophagitis Protonix 40 mg. Anemia -CBC today. - oral iron supplement daily. Pre-op testing Patient has the following medical conditions which may affect emily-operative course addressed in assessment and plan today. Migraines Per patient last migraine was last week. Imitrex 50 mg Hernandez Activity Status Index: METS: Walk a block or two on level ground (2.75 METs) DASI Score: 2.75 (Would have SOBE with climbing stairs. Denies chest pain ) Clinical Frailty Scale: 4. Apparently vulnerable ARISCAT Score: Age: 51-80 Preoperative SpO2: 91-95% Respiratory infection in the last month: No Preoperative anemia: Yes Surgical incision: upper abdominal Duration of surgery: 2-3 hrs Emergency procedure: No ARISCAT Score: 53 ANESTHESIA FINDINGS: Intubation History: No history of difficult intubation. No abnormal airway history Significant Anesthesia Considerations: none Airway History: No history of difficult airway No abnormal airway history I - PHYSICAL EVALUATION AIRWAY Patient intubated: No. DENTAL Normal dental observations. Dental findings: teeth intact. II - ANESTHESIA PLAN Anesthetic Plan: general Beta Ashley Monitoring Plan Post Procedure Analgesic Plan Prepared for Surgery: . NO CONSULTS PENDING CONSULTS: The following consults have been initiated at this time: anesthesia. Planned Anesthetic: general The Following Tests/Procedures Have Been Initiated: Orders Placed This Encounter BASIC METABOLIC PNL Standing Status: Future Number of Occurrences: 1 Standing Expiration Date: 04/26/2024 CBC Standing Status: Future Number of Occurrences: 1 Standing Expiration Date: 04/26/2024 ECG COMPLETE Standing Status: Future Standing Expiration Date: 01/25/2025 REASON FOR VISIT: Jesus Zepeda is a 58 year old female who is scheduled for Procedure(s): HYSTERECTOMY VAGINAL UTERUS 250G OR LESS REMOVAL TUBE(S) AND/OR OVARY(S) (N/A) CYSTOSCOPY (N/A) COMBINED ANTERIOPOSTERIOR COLPORRHAPHY W/ENTEROCELE REPAIR INCLUDING CYSTOURETHROSCOPY WHEN PERFORMED (Bilateral) VAGINECTOMY PARTIAL (Bilateral) at the request of Dr. Florencia Lundy for routine HANDP. My final recommendation will be communicated back to the requesting physician by way of shared medical record or letter. Subjective The patient has the following: COVID-19 Immunization Status Overdue - Covid-19 Vaccine () Overdue since 12/27/2023 11/25/2023 Postponed until 11/24/2024 by Barak Tiwari MD (Declined at this time) 07/18/2022 Postponed until 07/19/2023 by Barak Tiwari MD (Declined at this time) 10/09/2020 Imm Admin: COVID-19 original vaccine, full dose, monovalent (MODERNA) Only the first 3 history entries have been loaded, but more history exists. CHIEF COMPLAINT: The reason for this visit is to perform a comprehensive review of the patient's past medical history, assess their current health status and obtain any additional testing required based on anesthesia guidelines. We will also identify any potential anesthesia problems or contraindications to the planned procedure. HPI: Jesus Zepeda is a 58 year old female that presents for pre-anesthesia testing. She has a history of uterine (more content not included)... Normal [facility] UA DIP B/OOrdered By: Jadon Mukherjee on 12-29-2023 Bilirubin Ql (U) Negative Neg [facility] Color/Appearance yellow/clear comment: [facility] Glucose Ql (U) Negative Neg mg/dL [facility] Hemoglobin Ql (U) trace Neg [facility] Interpretation and review of laboratory results Abnormal [facility] Ketones Ql (U) Negative Neg [facility] Leukocytes Negative Neg [facility] Nitrite Ql (U) Negative Neg [facility] pH (U) 6.0 [pH] 4.5 - 8.0 [facility] Protein.monoclonal (U) [Mass/Vol] Negative Neg mg/dL [facility] Specific Volin, Ur 1.015 Abnormal 1.005 - 1.030 [facility] Urobilinogen, Urine normal Normal ( <1.1) EU [facility] DBT Breast - bilateral scree michaelgohenry 12-02-2023 IMPRESSION: NEGATIVE There is no mammographic evidence of malignancy. A 1 year screening mammogram is recommended. Rosa melo/renate:12/02/2023 13:15:52 [employer] Delivery(s): RT Sara(Fady)(M), [facility] letter sent: Normal over 40 Mammogram BI-RADS: Category 1: Negative Multiple national specialty organizations have released breast cancer screening guidelines for women at average risk for developing breast cancer - guidelines that are based on both evidence and opinion, yet differ on when to start and how often to screen for breast cancer. With representation from Breast Imaging, Internal Medicine, Women's Health, Family Medicine, and Medical/Surgical Oncology, the [facility] has carefully reviewed the data and reached the following consensus: 1) All women should engage in shared decision-making with their providers to decide when to start and how often to screen; 2) All women should have the opportunity to start screening mammography at age 40; 3) For women ages 45-55, we recommend annual screening mammograms; 4) For women ages 55 and over, we support both the transition from an annual to a biennial interval if this aligns more with patient's values and preferences, or continuation with annual screening; 5) All women should discuss with their providers when to stop screening mammograms. Wood Window And Door Craftsman: Renate Transcribe Date/Time: Dec 02 2023 10:17A Dictated by: ROSA ATKINS MD This examination was interpreted and the report reviewed and electronically signed by: ROSA ATKINS MD on Dec 02 2023 1:15PM [facility] DIVISION OF RADIOLOGY * * *Final Report* * * DATE OF EXAM: Dec 02 2023 10:33AM [facility]82 - [facility] SCREENING W BLAISE / PROCEDURE REASON: Encounter for screening mammogram for breast cancer * * * * Physician Interpretation * * * * RESULT: #[id number] - JOSEFA SCREENING W BLAISE BILATERAL DIGITAL SCREENING MAMMOGRAM TOMOSYNTHESIS WITH CAD: 12/02/2023 HISTORY: Encounter For Screening Mammogram For Breast Cancer /Screening Mammogram with BLAISE - patient reports NO breast symptoms /priors available for comparison. RESULT: TECHNIQUE: The study was acquired using full field digital technology and interpreted from soft copy. Digital Breast Tomosynthesis (DBT) images were obtained and used to assist in the interpretation of this examination. Current study was also evaluated with a Computer Aided Detection (CAD). Comparison is made to exams dated: 10/15/2022 mammogram, 07/12/2021 mammogram, and 05/18/2020 mammogram - [facility]. There are scattered areas of fibroglandular density. No significant masses, calcifications, or other findings are seen in either breast. There has been no significant interval change. DIVISION OF RADIOLOGY Provider, [facility] - 12/02/2023 * * *Final Report* * * DATE OF EXAM: Dec 02 2023 10:33AM [facility] - [facility] SCREENING W BLAISE / PROCEDURE REASON: Encounter for screening mammogram for breast cancer * * * * Physician Interpretation * * * * RESULT: #[id number] - JOSEFA SCREENING W BLAISE BILATERAL DIGITAL SCREENING MAMMOGRAM TOMOSYNTHESIS WITH CAD: 12/02/2023 HISTORY: Encounter For Screening Mammogram For Breast Cancer /Screening Mammogram with BLAISE - patient reports NO breast symptoms /priors available for comparison. RESULT: TECHNIQUE: The study was acquired using full field digital technology and interpreted from soft copy. Digital Breast Tomosynthesis (DBT) images were obtained and used to assist in the interpretation of this examination. Current study was also evaluated with a Computer Aided Detection (CAD). Comparison is made to exams dated: 10/15/2022 mammogram, 07/12/2021 mammogram, and 05/18/2020 mammogram - [facility]. There are scattered areas of fibroglandular density. No significant masses, calcifications, or other findings are seen in either breast. There has been no significant interval change. IMPRESSION IMPRESSION: NEGATIVE There is no mammographic evidence of malignancy. A 1 year screening mammogram is recommended. Rosa melo/renate:12/02/2023 13:15:52 [employer] Delivery(s): RT Sara(R)(M), [facility] letter sent: Normal over 40 Mammogram BI-RADS: Category 1: Negative Multiple national specialty organizations have released breast cancer screening guidelines for women at average risk for developing breast cancer - guidelines that are based on both evidence and opinion, yet differ on when to start and how often to screen for breast cancer. With representation from Breast Imaging, Internal Medicine, Women's Health, Family Medicine, and Medical/Surgical Oncology, the [facility] has carefully reviewed the data and reached the following consensus: 1) All women should engage in shared decision-making with their providers to decide when to start and how often to screen; 2) All women should have the opportunity to start screening mammography at age 40; 3) For women ages 45-55, we recommend annual screening mammograms; 4) For women ages 55 and over, we support both the transition from an annual to a biennial interval if this aligns more with patient's values and preferences, or continuation with annual screening; 5) All women should discuss with their providers when to stop screening mammograms. [employer]sman: Renate Transcribe Date/Time: Dec 02 2023 10:17A Dictated by: ROSA ATKINS MD This examination was interpreted and the report reviewed and electronically signed by: ROSA ATKINS MD on Dec 02 2023 1:15PM EST [facility] Radiology Study observation (narrative) [facility] DBT Breast - bilateral scree ningOrdered By: [facility] Provider on 12-02-2023 [facility] Abdomen/Pelvis without Conto n 11-18-2023 Abdomen/Pelvis without Cont [facility] Imaging Services [address] [place], [place] [id number] Abdomen/Pelvis without Cont MR#: [id number] Acct: [id number] Name: JESUS ZEPEDA Rep #: [id number] : 1965 F 57 From: Jude bahena MD PCP: Dr. Baark Tiwari MD Status: REG CLI Study: Abdomen/Pelvis without Cont Date of Exam: 10/26 08/18 Exam# [id number] Ordering Dr: Eli Hernández MD [id number] INDICATION: ABD PAIN UTI HX STONES EXAMINATION: CT ABDOMEN AND PELVIS WITHOUT CONTRAST - CT Abdomen And Pelvis W/O Contrast Injection TECHNIQUE: Helically acquired images were obtained of the abdomen and pelvis without oral or IV contrast. A radiation dose optimization technique was used for this scan. IV Contrast dosage and agent: None. Oral contrast: None. RADIATION DOSAGE (If Supplied By Facility): CTDIvol = ( 16.59 ) mGy, DLP = ( 820.64 ) mGycm COMPARISON: Prior study dated: 09/30/2019 FINDINGS: LOWER CHEST: Mosaic attenuation at the lung bases favors a trapping. Coronary artery calcifications are seen. No cardiomegaly or pericardial effusion. LIVER: Enlarged liver measures 22.8 cm in CC dimension. The liver is normal in shape and attenuation. No focal mass. GALLBLADDER AND BILIARY TREE: Gallbladder not seen. No intra- or extrahepatic biliary ductal dilation. PANCREAS: No focal cystic or solid mass. SPLEEN: Normal size without focal cystic or solid mass. ADRENAL GLANDS: No nodules. KIDNEYS AND URETERS: Normal renal size and position. No hydronephrosis. 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 Right lower pole 0.2 cm nonobstructing renal calculus. PERITONEUM: No ascites or free air. No other fluid collection. BOWEL: The stomach is unremarkable. Normal caliber of the small bowel. No obstruction. Scattered colonic diverticulosis without diverticulitis. No colonic wall thickening or inflammation. No evidence of acute appendicitis. LYMPH NODES: No enlarged mesenteric or retroperitoneal lymph nodes. VESSELS: Aorta is non-dilated. Mild atherosclerotic calcifications. URINARY BLADDER: Unremarkable. REPRODUCTIVE ORGANS: No pelvic masses. Multiple clips in the pelvis noted. ABDOMINAL WALL: No discrete abdominal or pelvic wall hernia. BONES: No acute or suspicious osseous abnormality. Degenerative changes are seen throughout the spine. Mild degenerative change at the hips. CT/Abdomen/Pelvis without Cont IMPRESSION: No acute finding in the abdomen or pelvis. No hydronephrosis. Nonobstructing right lower pole renal calculus. Hepatomegaly, similar to prior. Electronically Signed: Jude Gardiner MD at 15:57 EDT , CC: Dr. Eli Hernández MD; Dr. Barak Tiwari MD [employer] Craftsman: Signed Normal [facility] Bedside Glucoseon 10-15-2023 FINGERSTICK GLU 90 mg/dL Normal 74-106 [facility] Comment on above: Result Comment: DANIEL GEMENT OF PATIENT CARE PER NURSING PROTOCOL Performed By: #### L 501.080 #### [facility] Laboratory [address] [facility] [place], [address] Discharge Instructionon 09-26 Discharge Instruction [facility] Medical Records Department [address] [place] [address] Instructions for Home/Discharge Instructions 10/15/23 1448 MR#: [id number] Acct: [id number] Name: JESUS ZEPEDA Rep #: [id number] : 1965 57 From: Eli Hernández MD PCP: Dr. Barak Tiwari MD Status:REG [facility] Discharge Instructions Diet Discharge Diet: No restrictions Activity Discharge Activity: Return to Normal Activity Dressing / Incision Call your doctor if you observe: Fever of 101 or Higher, Inability to urinate and Inability to have a bowel movement Follow Up Care Please Follow Up With: Eli Hernández MD When: The office will call to make arrangements for follow up in 3-4 weeks. Test Results: Test results from this visit will be discussed in further detail at your follow-up appointment, if applicable. Discharge Plan Admission Attending Provider: Eli Hernández Primary Care Provider: Barak Tiwari Print Language: Ethiopian Discharge Orders/Prescriptions Prescriptions: New cephalexin 500 mg capsule 500 mg PO Q12 3 Days Qty: 6 0RF Continued levothyroxine 200 mcg capsule 100 mcg PO ALTAMIRANO budesonide-formoterol [Symbicort] 160-4.5 mcg/actuation HFA aerosol inhaler 2 puff inhalation BID atorvastatin 20 mg tablet 20 mg PO DAILY ferrous sulfate [FeroSul] 325 mg (65 mg iron) Tablet 325 mg PO BID sumatriptan succinate 50 mg tablet 50 mg PO DAILY PRN (Reason: Migraine Headache) fluorometholone 0.1 % drops,suspension 1 drp EACH EYE DAILY PRN (Reason: EYE INFLAMMATION) levothyroxine 200 mcg tablet 200 mcg PO MOTUWETHFRSA Janumet 50-1,000 mg tablet 1 tab PO BIDCM sucralfate [Carafate] 1 gram tablet 1 g PO BID albuterol sulfate [Ventolin HFA] 90 mcg/actuation HFA aerosol inhaler 2 puff inhalation Q6H PRN (Reason: Shortness Of Breath) furosemide [Lasix] 40 mg tablet 40 mg PO DAILY 30 Days Qty: 30 0RF ascorbic acid (vitamin C) [Vitamin C] 500 mg capsule, extended release 500 mg PO DAILY carvedilol 25 mg tablet 12.5 mg PO BID Rx Instructions: must administer with a meal/food cephalexin 500 mg capsule 500 mg PO Q12 3 Days Qty: 6 0RF valsartan 160 mg tablet 160 mg PO DAILY Qty: 90 3RF Referrals / Follow Up: Barak Tiwari MD [Primary Care Provider] - Disposition Disposition (needs filled in before D/C Order can be placed): Home, Self Care 10/15/23 1450 Eli Hernández MD CC: Dr. Barak Tiwari MD Signed [facility] MR/POSTOP.[facility] 10-15-2023 MR/POSTOP.[facility] Medical Records Department [address] [place] [address] Anesthesia Postop Eval I 10/15/23 1541 MR#: [id number] Acct: [id number] Name: JESUS ZEPEDA Rep #: [id number] : 1965 57 From: Esa Dietz MD PCP: Dr. Barak Tiwari MD Status:REG SDC Y Race: C Location: [place] [address] Anesthesia: Postop Eval I Current Vital Signs Temperature: 97.4 F Pulse Rate: 101 Blood Pressure: 164/105 Respiratory Rate: 12 Pulse Ox: 97 Oxygen Delivery Method: Room Air Assessment Airway patent: Yes Spontaneous unlabored respirations: Yes Mental status: Asleep nausea: No Vomiting: No Anesthesia Complication: No Fluid Hydration Crystalloid volume administer (ml): 1 Total IV fluid infused: 1 Progress Note Anesthesia document: Postop Eval 1 completed: Yes 10/15/23 1543 Date Esa Medina Signature: Date CC: Signed [facility] MR/POSTOP.[facility] Medical Records Department [address] [place] [address] Anesthesia Postop Eval I 10/15/23 1448 MR#: [id number] Acct: [id number] Name: JESUS ZEPEDA Rep #: [id number] : 1965 57 From: Sylvester Pantoja PCP: Dr. Barak Tiwari MD Status:REG [facility] Y Race: C Location: [place] [address] Anesthesia: Postop Eval I Current Vital Signs Temperature: 97.3 F Pulse Rate: 77 Blood Pressure: 113/86 Respiratory Rate: 16 Pulse Ox: 94 Oxygen Delivery Method: Room Air Assessment Airway patent: Yes Spontaneous unlabored respirations: Yes Mental status: Awake and Calm nausea: No Vomiting: No Anesthesia Complication: No Fluid Hydration Crystalloid volume administer (ml): 300 Total IV fluid infused: 300 Progress Note Anesthesia document: Postop Eval 1 completed: Yes 10/15/23 1449 Date Sylvester Medina Signature: CC: Signed Normal [facility] MR/[id number] 10-15-2023 MR/POSTOPAN2 [facility] Medical Records Department [address] [place] [address] Anesthesia Postop Eval II 10/15/231516 MR#: [id number] Acct: [id number] Name: JESUS ZEPEDA Rep #: [id number] : 1965 57 From: Esa Dietz MD PCP: Dr. Barak Tiwari MD Status:REG SDC Y Race: C Location: [place] [address] Anesthesia Postop Eval I Sum Postop Eval Completion status Anesthesia document: Postop Eval 1 completed: Yes Anesthesia Postop Eval I Summary Anesthesia Postop Eval I Summary: Anesthesia Postop Eval I: Assessment Summary Airway patent Yes 10/15/23 14:49 AIR TOOL OPERATOR.MDOT Spontaneous unlabored Yes 10/15/23 14:49 AIR TOOL OPERATOR.MDOT respirations Mental status Awake,Calm 10/15/23 14:49 AIR TOOL OPERATOR.MDOT nausea No 10/15/23 14:49 AIR TOOL OPERATOR.MDOT Vomiting No 10/15/23 14:49 AIR TOOL OPERATOR.MDOT Anesthesia Postop Eval I: Fluid Summary Crystalloid volume administer 300 10/15/23 14:49 AIR TOOL OPERATOR.MDOT (ml) Colloids volume administered ( ml) Blood Product volume administered (ml) Total IV fluid infused 300 10/15/23 14:49 AIR TOOL OPERATOR.MDOT Anesthesia Postop Eval I: Summary Notes Anesthesia Complication No 10/15/23 14:49 AIR TOOL OPERATOR.MDOT Anesthesia Complication Comment: Post-operative progress note Anesthesia: Postop Eval II Evaluation Mental status: Awake Pain Level: 0 nausea: No Vomiting: No Complications Anesthesia Complication: No 10/15/231516 Date Esa Dietz MD Cosigner Signature: Date CC: Signed Normal [facility] Operative Reporton 4 Operative Report [facility] Medical Records Department [address] [place] [address] Operative Report 10/15/23 1450 MR#: [id number] Acct: [id number] Name: JESUS ZEPEDA Rep #: [id number] : 1965 57 From: Eli Hernández MD PCP: Dr. Barak Tiwari MD Status:[facility] Location: [place] [address] Report of Operation Date of Procedure: 10/15/23 Pre-Operative Diagnosis: Migrated ureteral stent Post-Operative Diagnosis: Same Surgery/Procedure Performed:: Cystoscopy, right ureteroscopy, removal of retained ureteral stent using a stone basket Surgeon: Eli Hernández Type of Anesthesia: General Specimen's removed: 6 Nigerien 26 cm JJ stent Description of Procedure: The patient is a 57-year-old female who underwent management for a right renal stone who now presents for removal of a migrated right ureteral stent. Informed consent was obtained. She was taken to the operating room and placed on the operating room table. Anesthesia monitored the head, neck, airway, IV access and vital signs throughout the case. Once anesthesia was appropriately administered, she was placed into dorsolithotomy position and was prepped and draped in usual sterile fashion. The cystoscope was inserted through the urethra under direct visualization and the bladder was emptied. Due to her prolapse, the vagina was packed with gauze. The right ureteral orifice was then identified and intubated with a 0.035 Glidewire. The semirigid ureteroscope was inserted alongside the guidewire and the stent was identified and a distal ureteral position. Using a stone basket, the stent was grasped and removed without difficulty. The patient's bladder was then emptied and the gauze was removed from her vagina. She was awakened and taken to the recovery room in good condition. There were no complications during this procedure. Grafts/Implants Used: None Complications None Admit VTE Documentation VTE Present on Admission: Yes VTE Mechan Device Prophylaxis: SCD's VTE Pharm Prophylaxis ordered?: No Reason prophylaxis not ordered:: Treatment Not Indicated 10/15/23 1452 Cosigner Signature (if applicable): CC: Dr. Eli Hernández MD; Dr. Barak Tiwari MD Signed Normal [facility] Abdomen Single Viewon 2023 Abdomen Single View [facility] Imaging Services [address] [place], [place] [address] Abdomen Single View MR#: [id number] Acct: [id number] Name: JESUS ZEPEDA Rep #: [id number] : 1965 F 57 From: Luis Fernando Perez MD PCP: Dr. Barak Tiwari MD Status: REG CLI Study: Abdomen Single View Date of Exam: 10/01/23 Exam# [id number] Ordering Dr: Eli Hernández MD [id number] EXAM: XR ABDOMEN, 1 VIEW CLINICAL INDICATION: KUB- KIDNEY STONES TECHNIQUE: Frontal supine view of the abdomen/pelvis. COMPARISON: XR Abdomen dated 09/07/2023 FINDINGS: GASTROINTESTINAL TRACT: Normal bowel gas pattern. ORGANS: No organomegaly. BONES/JOINTS: No acute abnormality. TUBES, LINES AND DEVICES: Interval placement of a right double-J ureteral stent catheter. RAD/Abdomen Single View IMPRESSION: No acute findings. Electronically Signed: Luis Fernando Perez MD at 16:48 EDT Reading Location ID and State: [address] [place] [address] Tel , Service support , CC: Dr. Eli Hernández MD; Dr. Barak Tiwari MD [employer] Craftsman: Signed Normal [facility] Basic Metabolic Profile (BMP )on 09-24-2023 BUN/CRE 21.0 RATIO High 10-20 [facility] Comment on above: Performed By: #### L 100.0500, L500.2500 #### [facility] Laboratory [address] [place], [place], [id number] CA,Total 9.4 mg/dL Normal 8.5-10.1 [facility] Comment on above: Performed By: #### L 100.0500, L500.2500 #### [facility] Laboratory [address] [place], [address] Chloride [Moles/Vol] 105 mmol/L Normal 98-107 [facility] Comment on above: Performed By: #### L 100.0500, L500.2500 #### [facility] Laboratory [address] [place], [address] CO2 [Moles/Vol] 22.0 mmol/L Normal 21.0-32.0 [facility] Comment on above: Performed By: #### L 100.0500, L500.2500 #### [facility] Laboratory [address] [place], [address] Creatinine [Mass/Vol] 0.91 mg/dL Normal 0.55-1.02 [facility] Comment on above: Result Comment: The validity of the calculated GFR GFRAA in patients over 70 years has not been determined. Clinical correlation is essential. Performed By: #### L 100.0500, L500.2500 #### [facility] Laboratory [address] [place], [address] ECRCL 79.55 ml/min Normal [facility] Comment on above: Performed By: #### L 100.0500, L500.2500 #### [facility] Laboratory [address] [place], [address] EST GFR - AA 82 mL/min Normal >60 [facility] Comment on above: Result Comment: Afri can Cook Islander GFR Calc Performed By: #### L 100.0500, L500.2500 #### [facility] Laboratory [address] [place], [address] GAP 6 Normal 5-15 [facility] Comment on above: Performed By: #### L 100.0500, L500.2500 #### [facility] Laboratory [address] [place], [address] GFR/1.73 sq M.predicted among non-blacks MDRD (S/P/Bld) [Vol rate/Area] 68 mL/min/{1.73_m2} Normal >60 [facility] Comment on above: Result Comment: Non- GFR Calc Performed By: #### L 100.0500, L500.2500 #### [facility] Laboratory [address] [place], [address] Glucose [Mass/Vol] 105 mg/dL Normal 74-106 [facility] Comment on above: Result Comment: Fast ing Glucose result from 100 to 125 mg/dL suggests IMPAIRED HOMEOSTASIS per A.D.A. criteria. Performed By: #### L 100.0500, L500.2500 #### [facility] Laboratory [address] [place], [address] Potassium [Moles/Vol] 4.3 mmol/L Normal 3.5-5.1 [facility] Comment on above: Performed By: #### L 100.0500, L500.2500 #### [facility] Laboratory [address] [place], [address] Sodium [Moles/Vol] 133 mmol/L Low 136-145 [facility] Comment on above: Performed By: #### L 100.0500, L500.2500 #### [facility] Laboratory [address] [place], [address] Urea nitrogen [Mass/Vol] 19 mg/dL High 7-18 [facility] Comment on above: Performed By: #### L 100.0500, L500.2500 #### [facility] Laboratory [address] [place], [address] Bedside Glucoseon 09-24-2023 FINGERSTICK GLU 104 mg/dL Normal 74-106 [facility] Comment on above: Result Comment: DANIEL CORBIN OF PATIENT CARE PER NURSING PROTOCOL Performed By: #### L 501.080 #### [facility] Laboratory [address] [place], [address] CBC-Complete Blood Cnt No Magaly ffon 09-24-2023 Erythrocyte distribution width (RBC) [Ratio] 16.6 % High 11.6-14.6 [facility] Comment on above: Performed By: #### L 100.0500, L500.2500 #### [facility] Laboratory [address] [place], [address] Hematocrit (Bld) [Volume fraction] 34.6 % Low 37-47 [facility] Comment on above: Performed By: #### L 100.0500, L500.2500 #### [facility] Laboratory [address] [place], [address] Hemoglobin (Bld) [Mass/Vol] 10.9 g/dL Low 12.0-15.0 [facility] Comment on above: Performed By: #### L 100.0500, L500.2500 #### [facility] Laboratory [address] [place], [address] MCH (RBC) [Entitic mass] 27.4 pg Normal 27.0-32.0 [facility] Comment on above: Performed By: #### L 100.0500, L500.2500 #### [facility] Laboratory [address] [place], [address] MCHC (RBC) [Mass/Vol] 31.5 g/dL Low 32-36 [facility] Comment on above: Performed By: #### L 100.0500, L500.2500 #### [facility] Laboratory [address] [place], [address] MCV (RBC) [Entitic vol] 86.9 fL Normal 81-99 [facility] Comment on above: Performed By: #### L 100.0500, L500.2500 #### [facility] Laboratory [address] [place], [address] Platelet mean volume (Bld) [Entitic vol] 8.9 fL Normal 6.2-12.0 [facility] Comment on above: Performed By: #### L 100.0500, L500.2500 #### [facility] Laboratory [address] [place], [address] Platelets (Bld) [#/Vol] 270 10*3/uL Normal 150-450 [facility] Comment on above: Performed By: #### L 100.0500, L500.2500 #### [facility] Laboratory [address] [place], [address] RBC (Bld) [#/Vol] 3.98 10*6/uL Low 4.2-5.4 [facility] Comment on above: Performed By: #### L 100.0500, L500.2500 #### [facility] Laboratory [address] [place], [address] RDW SD 52.3 fl High 35.1-43.9 [facility] Comment on above: Performed By: #### L 100.0500, L500.2500 #### [facility] Laboratory [address] [place], [address] WBC (Bld) [#/Vol] 5.9 10*3/uL Normal 4.4-11.0 [facility] Comment on above: Performed By: #### L 100.0500, L500.2500 #### [facility] Laboratory [address] [place], [address] Discharge Instructionon 3 Discharge Instruction [facility] Medical Records Department [address] [place] [address] Instructions for Home/Discharge Instructions 09/24/23 1153 MR#: [id number] Acct: [id number] Name: JESUS ZEPEDA Rep #: [id number] : 1965 57 From: Eli Hernández MD PCP: Dr. Barak Tiwari MD Status:REG [facility] Discharge Instructions Diet Discharge Diet: No restrictions Activity Discharge Activity: Return to Normal Activity Dressing / Incision Call your doctor if you observe: Fever of 101 or Higher, Inability to urinate and Inability to have a bowel movement Follow Up Care Please Follow Up With: Eli Hernández MD When: in the office with KUB in 2-3 weeks. Test Results: Test results from this visit will be discussed in further detail at your follow-up appointment, if applicable. Discharge Plan Admission Attending Provider: Eli Hernández Primary Care Provider: Barak Tiwari Instructions Print Language: Ethiopian Discharge Orders/Prescriptions Prescriptions: New oxycodone-acetaminophen [Percocet] 5-325 mg tablet 1 tab PO Q8H PRN (Reason: pain) 3 Days Qty: 10 0RF cephalexin 500 mg capsule 500 mg PO Q12 3 Days Qty: 6 0RF phenazopyridine 100 mg tablet 100 mg PO TID Qty: 30 0RF Continued levothyroxine 200 mcg capsule 100 mcg PO ALTAMIRANO budesonide-formoterol [Symbicort] 160-4.5 mcg/actuation HFA aerosol inhaler 2 puff inhalation BID atorvastatin 20 mg tablet 20 mg PO DAILY ferrous sulfate [FeroSul] 325 mg (65 mg iron) Tablet 325 mg PO BID sumatriptan succinate 50 mg tablet 50 mg PO DAILY PRN (Reason: Migraine Headache) fluorometholone 0.1 % drops,suspension 1 drp EACH EYE DAILY PRN (Reason: EYE INFLAMMATION) levothyroxine 200 mcg tablet 200 mcg PO MOTUWETHFRSA Janumet 50-1,000 mg tablet 1 tab PO BIDCM sucralfate [Carafate] 1 gram tablet 1 g PO BID albuterol sulfate [Ventolin HFA] 90 mcg/actuation HFA aerosol inhaler 2 puff inhalation Q6H PRN (Reason: Shortness Of Breath) furosemide [Lasix] 40 mg tablet 40 mg PO DAILY 30 Days Qty: 30 0RF ascorbic acid (vitamin C) [Vitamin C] 500 mg capsule, extended release 500 mg PO DAILY carvedilol 25 mg tablet 12.5 mg PO BID Rx Instructions: must administer with a meal/food valsartan 160 mg tablet 160 mg PO DAILY Qty: 90 3RF Referrals / Follow Up: Barak Tiwari MD [Primary Care Provider] - Disposition Disposition (needs filled in before D/C Order can be placed): Home, Self Care 09/24/23 3940 Eli Hernández MD CC: Dr. Barak Tiwari MD Signed Normal [facility] Operative Reporton 4 Operative Report [facility] Medical Records Department [address] [place] [address] Operative Report 09/24/23 1157 MR#: [id number] Acct: [id number] Name: JESUS ZEPEDA Rep #: [id number] : 1965 57 From: Eli Hernández MD PCP: Dr. Barak Tiwari MD Status:REG [facility] Location: [place] [address] Report of Operation Date of Procedure: 09/24/23 Pre-Operative Diagnosis: right renal stones Post-Operative Diagnosis: same Surgery/Procedure Performed:: cystoscopy with right retrograde pyelogram, right ureteral stent insertion, right extracorporeal shockwave lithotripsy Surgeon: Eli Hernández Type of Anesthesia: General Specimen's removed: none Description of Procedure: The patient is a 57-year-old female with right flank pain found to have right lower pole stones. She now presents for definitive surgical intervention. Informed consent was obtained. The patient was taken to the operating room and placed on the operating room table. Anesthesia monitored the head, neck, airway, IV access and vital signs throughout the case. Once anesthesia was appropriately administered, the patient was placed into dorsolithotomy position and was prepped and draped in usual sterile fashion. The cystoscope was inserted through the urethra under direct visualization into the urinary bladder. The bladder mucosa revealed no evidence of mass, erythema, foreign body or other abnormality. The right ureteral orifice was identified and intubated gently with a 0.035 Glidewire which advanced into the renal pelvis without difficulty. A 6 Nigerien 26 cm stent was positioned over the wire into the renal pelvis with curling in the bladder as well. At this time there was difficulty in identifying the lower pole stones. A 5 Nigerien whistle-tip catheter was inserted alongside the stent and advanced proximally. Contrast was injected in retrograde fashion filling the lower pole and making the stones easily visible. At this time the patient's bladder was emptied and the cystoscope was removed. She was repositioned on the table into the supine position. 3000 shocks were applied to the stones which appeared to be fragmented at the conclusion of the case. The patient was then awakened and taken to the recovery room in good condition. There were no complications during this procedure. Grafts/Implants Used: 6 Nigerien by 26 cm JJ stent Complications none Admit VTE Documentation VTE Present on Admission: Yes VTE Mechan Device Prophylaxis: SCD's VTE Pharm Prophylaxis ordered?: No Reason prophylaxis not ordered:: Treatment Not Indicated 09/24/23 6694 Cosigner Signature (if applicable): CC: Dr. Eli Hernández MD; Dr. Barak Tiwari MD Signed Normal [facility] Basic metabolic 2000 panelOr dered By: Linda Elizondo on 09-08-2023 Anion gap [Moles/Vol] 10 mmol/L 9 - 18 mmol/L [facility] Calcium [Mass/Vol] 9.5 mg/dL 8.5 - 10. 2 mg/dL [facility] Chloride [Moles/Vol] 103 mmol/L 97 - 105 mmol/L [facility] CO2 [Moles/Vol] 21 mmol/L Low 22 - 30 mmol/L [facility] Creatinine [Mass/Vol] 0.66 mg/dL 0.58 - 0.96 mg/dL [facility] GFR/1.73 sq M.predicted among non-blacks MDRD (S/P/Bld) [Vol rate/Area] 103 mL/min/{1.73_m2} - PINF [facility] Comment on above: Estimated Glomerular Filtration Rate (eGFR) is calculated using the 2020 CKD-EPI creatinine equation. This equation utilizes serum creatinine, sex, and age as parameters. The creatinine assay has traceable calibration to isotope dilution-mass spectrometry. Refer to KDIGO guidelines for clinical interpretation. In patients with unstable renal function, e.g. those with acute kidney injury, the eGFR may not accurately reflect actual GFR. Glucose [Mass/Vol] 79 mg/dL 74 - 99 mg/dL [facility] Comment on above: The [place] Diabete s Association (ADA) provides guidance for cutoff values for fasting glucose and random glucose. The ADA defines fasting as no caloric intake for at least 8 hours. Fasting plasma glucose results between 100 to 125 mg/dL indicate increased risk for diabetes (prediabetes). Fasting plasma glucose results greater than or equal to 126 mg/dL meet the criteria for diagnosis of diabetes. In the absence of unequivocal hyperglycemia, results should be confirmed by repeat testing. In a patient with classic symptoms of hyperglycemia or hyperglycemic crisis, random plasma glucose results greater than or equal to 200 mg/dL meet the criteria for diagnosis of diabetes. Reference: Standards of Medical Care in Diabetes 2016, [place] [employer] Association. Diabetes Care. 2016.39(Suppl 1). Interpretation and review of laboratory results Abnormal [facility] Potassium [Moles/Vol] 4.3 mmol/L 3.7 - 5.1 mmol/L [facility] Sodium [Moles/Vol] 134 mmol/L Low 136 - 144 mmol/L [facility] Urea nitrogen [Mass/Vol] 23 mg/dL High 7 - 21 mg/dL [facility] RETICULOCYTE COUNTon 024 Reticulocytes (Bld) [#/Vol] 0.063 10*3/uL [facility] Reticulocytes (Bld) [#/Vol]o n 09-08-2023 Interpretation and review of laboratory results Normal [facility] Reticulocytes/100 RBC (Bld) 1.7 % 0.4 - 2.0 % [facility] US Lower extremity veinon Non-Invasive Vascular Laboratory [facility] Lower Extremity Venous Duplex Unilateral - Right Date of service/time: 09/08/2023 11:53:54 AM Name: MRS. JESUS ZEPEDA Date of : 1965 Age: 57 years Gender: F Clinical Indication Lower extremity swelling and lower extremity pain. TECHNIQUE -------- A venous duplex ultrasound examination was performed, including grayscale imaging with compression maneuvers and color Doppler and spectral Doppler examination with augmentation maneuvers and response to respiration of the below mentioned veins. FINDINGS -------- RIGHT SIDE Distal external iliac vein Doppler: normal flow. Compression: normal. Common femoral vein Doppler: normal flow. Compression: normal. Femoral vein Doppler: normal flow. Compression: normal. Popliteal vein Doppler: normal flow. Compression: normal. Posterior tibial veins Compression: normal. Peroneal veins Compression: normal. Great saphenous vein Compression: normal. Small saphenous vein Compression: abnormal. IMPRESSION RIGHT SIDE - DEEP VEINS Negative for acute deep vein thrombosis. Lymph nodes noted in the groin. Largest measures 3.4 cm. RIGHT SIDE - SUPERFICIAL VEINS Negative for superficial thrombophlebitis in the great saphenous vein. 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 LEFT SIDE - DEEP VEINS Spontaneous and respirophasic flow noted in the common femoral vein. Lymph nodes noted in the groin. Largest measures 3.2 cm. Technologist: Ann Lilly RVT, RDMS Ordering physician: JULY CEDILLO Interpreting physician: VIKAS Bueno DO Final See Link below for Image [facility] Abdomen Single Viewon 2023 Abdomen Single View [facility] Imaging Services [address] [place] [id number] Abdomen Single View MR#: [id number] Acct: [id number] Name: RAUDEL ZEPEDANIE MARGO Rep #: [id number] : 1965 F 57 From: Saurabh Tanner PCP: Dr. Barak Tiwari MD Status: [facility] Study: Abdomen Single View Date of Exam: 09/07/23 Exam# [id number] Ordering Dr: Eli Hernández MD [id number] STUDY: X-RAY - ABDOMEN/PELVIS REASON FOR EXAM: Female, 57 years old. bilat stones TECHNIQUE: Single AP view of the abdomen / pelvis. COMPARISON: October 11, 2019 FINDINGS: Left lower lobe calcific density again noted. There is an unremarkable bowel gas pattern. Tubal ligation clips noted in the pelvis. The visualized liver, spleen and kidneys are grossly normal in size and morphology. Normal soft tissue structures. Degenerative changes lumbar spine. RAD/Abdomen Single View IMPRESSION: No acute disease. No radiodense urolithiasis. Electronically Signed: Saurabh Pappas MD at 23:52 EDT , CC: Dr. Eli Hernández MD; Dr. Barak Tiwari MD [employer]: Signed Normal [facility] Kidney and Bladderon 024 Kidney and Bladder [facility] Imaging Services [address] [place] [place], [place] [id number] Kidney and Bladder MR#: [id number] Acct: [id number] Name: JESUS ZEPEDA Rep #: [id number] : 1965 F 57 From: Dominguez Lorenzo MD PCP: Dr. Barak Tiwari MD Status: [facility] CLI Study: Kidney and Bladder Date of Exam: 09/03/23 Exam# [id number] Ordering Dr: Eli Hernández MD ADDENDUM by Dr. Dominguez Lorenzo MD on 09/04/23 at 1217 [id number] STUDY: RENAL ULTRASOUND - COMPLETE REASON FOR EXAM: Female, 57 years old. UTI TECHNIQUE: Ultrasound evaluation of the kidneys was performed with real-time and static merchant-scale imaging. COMPARISON: None. FINDINGS: RIGHT KIDNEY: Normal location of the right kidney, which is normal in size. The right kidney measures 11.1 cm. There is a normal cortex of the right kidney. The renal cortex measures 1.5 cm. There is no right renal mass or cyst. 12 mm echogenic focus in the renal pelvis may represent a nonobstructing stone. There is mild hydronephrosis of the right kidney. Another month 9 mm echogenic focus with posterior shadowing in the lower pole right kidney may represent a nonobstructing stone. Another 4 mm echogenic focus lower pole right kidney may represent another nonobstructing stone. DISTAL RIGHT URETER: There is non-visualization of the distal right ureter. There is no demonstrated right ureterovesical junction calculus. There is a visualized right ureteral jet. LEFT KIDNEY: Normal location of the left kidney, which is normal in size. The left kidney measures 11.1 cm. There is a normal cortex of the left kidney. The renal cortex measures 1.4 cm. 10 mm echogenic focus within the cortex of the midsection of the left kidney may represent a mass or stone. There are no left renal calculi. There is mild hydronephrosis of the left kidney. DISTAL LEFT URETER: There is non-visualization of the distal left ureter. There is no demonstrated left ureterovesical junction calculus. There is a visualized left ureteral jet. BLADDER: The distended urinary bladder has a volume of 165 ml. The empty urinary bladder has a volume of 79 ml. There is a normal wall thickness of the distended urinary bladder. There is no demonstrated mass within the urinary bladder. There are no demonstrated bladder calculi. 09/04/23 1217 Date cc: Dr. Eli Hernández MD; Dr. Barak Tiwari MD * Signed ADDENDUM by Dr. Dominguez Lorenzo MD on 09/04/23 at 1217 US/Kidney and Bladder IMPRESSION: 1. Possible 12 mm stone in the right renal pelvis with mild hydronephrosis. Correlation with stone protocol CT would be useful. 2. Possible 10 mm stone or echogenic mass within the midsection of the left kidney and again correlation with CT would be useful. 3. Significant postvoid residual. N.B. : The above Results were Read Back by Dominguez Lorenzo MD to Eli Quintana MD, and understanding confirmed on 09/04/2023 13:38:31 (ET). Electronically Signed: Domignuez Lorenzo MD at 12:17 EDT , 09/04/23 1345 Date cc: Dr. Eli Hernández MD; Dr. Barak Tiwari MD * Signed We are attempting to reach an attending provider to discuss findings. An addendum with communication details will be sent when the communication is complete. [id number] STUDY: RENAL ULTRASOUND - COMPLETE REASON FOR EXAM: Female, 57 years old. UTI TECHNIQUE: Ultrasound evaluation of the kidneys was performed with real-time and static merchant-scale imaging. COMPARISON: None. FINDINGS: RIGHT KIDNEY: Normal location of the right kidney, which is normal in size. The right kidney measures 11.1 cm. There is a normal cortex of the right kidney. The renal cortex measures 1.5 cm. There is no right renal mass or cyst. 12 mm echogenic focus in the renal pelvis may represent a nonobstructing stone. There is mild hydronephrosis of the right kidney. Another month 9 mm echogenic focus with posterior shadowing in the lower pole right kidney may represent a nonobstructing stone. Another 4 mm echogenic focus lower pole right kidney may represent another nonobstructing stone. DISTAL RIGHT URETER: There is non-visualization of the distal right ureter. There is no demonstrated right ureterovesical junction calculus. There is a visualized right ureteral jet. LEFT KIDNEY: Normal location of the left kidney, which is normal in size. The left kidney measures 11.1 cm. There is a normal cortex of the left kidney. The renal cortex measures 1.4 cm. 10 mm echogenic focus within the cortex of the midsection (more content not included)... Normal [facility] BACTERIAL VAGINOSIS NAATon 0 08-14-2023 Lactobacillus crispatus+gasseri+j ensenii + Gardnerella vaginalis + Atopobium vaginae rRNA CARLTON+probe Ql (Vag fld) Positive Abnormal Negative for bacterial vaginosis [facility] ИВАН/TRICHOMONAS NAATon 0 08-14-2023 C. glabrata RNA CARLTON+probe Ql (Vag fld) Negative Negative for Иван glabrata [facility] Иван sp DNA CARLTON+probe Ql (Vag fld) Negative Negative for Иван species [facility] T. vaginalis DNA CARLTON+probe Ql (Unsp spec) Negative Negative for Trichomonas vaginalis by amplification [facility] UA DIP, URINE (POC)on 2023 BILIRUBIN UA (POCT) Negative Negative [facility] CLARITY UA (POCT) Cloudy [facility] COLOR UA (POCT) Yellow [facility] GLUCOSE UA (POCT) Negative Negative mg/dL [facility] Hemoglobin Ql (U) Moderate Abnormal Negative [facility] KETONE UA (POCT) Negative Negative mg/dL [facility] LEUKOCYTES UA (POCT) Large Abnormal Negative [facility] NITRITE UA (POCT) Negative Negative [facility] PH UA (POCT) 5.5 4.5 - 8.0 [facility] Protein Ql (U) Trace Abnormal Negative mg/dL [facility] SPECIFIC GRAVITY UA (POCT) 1.025 1.005 - 1.030 [facility] UROBILINOGEN UA (POCT) 0.2 E.U./dL Normal E.U./dL [facility] UA DIP, URINE (POC)on 2023 BILIRUBIN UA (POCT) Negative Negative [facility] CLARITY UA (POCT) Clear [facility] COLOR UA (POCT) Yellow [facility] GLUCOSE UA (POCT) Negative Negative mg/dL [facility] Hemoglobin Ql (U) Moderate Abnormal Negative [facility] KETONE UA (POCT) Negative Negative mg/dL [facility] LEUKOCYTES UA (POCT) Moderate Abnormal Negative [facility] NITRITE UA (POCT) Positive Abnormal Negative [facility] PH UA (POCT) 5.5 4.5 - 8.0 [facility] Protein Ql (U) 100 mg/dL Abnormal Negative mg/dL [facility] SPECIFIC GRAVITY UA (POCT) 1.025 1.005 - 1.030 [facility] UROBILINOGEN UA (POCT) 0.2 E.U./dL Normal E.U./dL [facility] JOSEFA SCREENINGon 10-15-2022 [facility] Basophil percentageOrdered B y: Dr. Elizondo on 07-22-2022 Chloride [Moles/Vol] 104 mmol/L 98-107 [facility] Glucose [Mass/Vol] 108 mg/dL 74-106 [facility] Comment on above: Fasting Glucose resu lt from 100 to 125 mg/dL suggests IMPAIRED HOMEOSTASIS per A.D.A. criteria. Potassium [Moles/Vol] 4.2 mmol/L 3.5-5.1 [facility] Sodium [Moles/Vol] 132 mmol/L 136-145 [facility] WBC (Bld) [#/Vol] 4.7 10*3/uL 4.4-11.0 [facility] Blood erythrocytes count (nu mber/volume)Ordered By: Dr. Elizondo on 07-22-2022 RBC (Bld) [#/Vol] 3.59 10*6/uL 4.2-5.4 [facility] Blood hemoglobin measurement (mass/volume)Ordered By: Dr. Elizondo on 07-22-2022 Hemoglobin (Bld) [Mass/Vol] 8.6 g/dL 12.0-15.0 [facility] Blood platelet mean volumeOr dered By: Dr. Elizondo on 07-22-2022 Platelet mean volume (Bld) [Entitic vol] 8.8 fL 6.2-12.0 [facility] Determination of erythrocyte mean corpuscular volume (MCV)Ordered By: Dr. Elizondo on 07-22-2022 MCV (RBC) [Entitic vol] 80.5 fL 81-99 [facility] Hematocrit Auto (Bld) [Volum e fraction]Ordered By: Dr. Elizondo on 07-22-2022 Hematocrit (Bld) [Volume fraction] 28.9 % 37-47 [facility] Laboratory - Chemistry and C hemistry - challengeOrdered By: Dr. Elizondo on 07-22-2022 CO2 [Moles/Vol] 23.0 mmol/L 21.0-32.0 [facility] Natriuretic peptide B (Bld) [Mass/Vol] 73.7 pg/mL 0-100 [facility] Urea nitrogen/Creatinine [Mass ratio] 19.9 mg/mg 10-20 [facility] Laboratory - Hematology and Cell countsOrdered By: Dr. Elizondo on 07-22-2022 Erythrocyte distribution width (RBC) [Entitic vol] 56.6 fL 35.1-43.9 [facility] Erythrocyte distribution width (RBC) [Ratio] 19.2 % 11.6-14.6 [facility] MCH (RBC) [Entitic mass] 24.0 pg 27.0-32.0 [facility] MCHC Auto (RBC) [Mass/Vol]Or dered By: Dr. Elizondo on 07-22-2022 MCHC (RBC) [Mass/Vol] 29.8 g/dL 32-36 [facility] No Panel InformationOrdered By: Dr. Elizondo on 07-22-2022 Estimated GFR (MDRD) Amer 83 mL/min >60 [facility] Comment on above: GFR Calc Estimated GFR (MDRD) Non-Af Amer 69 mL/min >60 [facility] Comment on above: Non- GFR Calc Platelets bldOrdered By: Dr. Elizondo on 07-22-2022 Platelets (Bld) [#/Vol] 289 10*3/uL 150-450 [facility] Serum or plasma calcium heber urement (mass/volume)Ordered By: Dr. Elizondo on 07-22-2022 Calcium [Mass/Vol] 8.9 mg/dL 8.5-10.1 [facility] Serum or plasma creatinine m easurement (mass/volume)Ordered By: Dr. Elizondo on 07-22-2022 Creatinine [Mass/Vol] 0.90 mg/dL 0.55-1.02 [facility] Comment on above: The validity of the calculated GFR & GFRAA in patients over 70 years has not been determined. Clinical correlation is essential. Serum or plasma urea nitroge n measurement (mass/volume)Ordered By: Dr. Elizondo on 07-22-2022 Urea nitrogen [Mass/Vol] 18 mg/dL 7-18 [facility] Thin prep Papanicolaou smear with manual screeningOrdered By: Dr. Elizondo on 07-22-2022 Thin prep Papanicolaou smear with manual screening 5 5-15 [facility] No Panel Informationon 06-30 [facility] SPIROMETRY WITH DILATOR IF O BSTRUCTEDon 06-20-2022 ANJ24-07% PRE (L/S) 1.70 L/S [facility] FEV1 PRE (L) 1.62 L [facility] FEV1/FVC PRE (%) 79 % [facility] FVC PRE (L) 2.05 L [facility] PEF PRE (L/S) 3.06 L/S [facility] Absolute lymphocyte countOrd ered By: Dr. Horne on 05-16-2022 Lymphocytes Auto (Unsp spec) [#/Vol] 1.11 10*3/uL 0.83-4.51 [facility] Basophil percentageOrdered B y: Dr. Horne on 05-16-2022 Basophils/100 WBC (Bld) 1.4 % 0-1 [facility] Bilirubin [Mass/Vol] 0.70 mg/dL 0.20-1.00 [facility] Comment on above: For patients on eltr ombopag therapy, use of Dimension [place] TBIL is not recommended. Chloride [Moles/Vol] 103 mmol/L 98-107 [facility] Eosinophils/100 WBC (Bld) 3.9 % 0-5 [facility] Glucose [Mass/Vol] 113 mg/dL 74-106 [facility] Comment on above: Fasting Glucose resu lt from 100 to 125 mg/dL suggests IMPAIRED HOMEOSTASIS per A.D.A. criteria. Neutrophils (Bld) [#/Vol] 2.3 10*3/uL 2.0-7.7 [facility] Neutrophils/100 WBC (Bld) 51.6 % 47-70 [facility] Potassium [Moles/Vol] 3.9 mmol/L 3.5-5.1 [facility] Protein [Mass/Vol] 9.3 g/dL 6.4-8.2 [facility] Sodium [Moles/Vol] 134 mmol/L 136-145 [facility] WBC (Bld) [#/Vol] 4.4 10*3/uL 4.4-11.0 [facility] Blood erythrocytes count (nu mber/volume)Ordered By: Dr. Horne on 05-16-2022 RBC (Bld) [#/Vol] 3.54 10*6/uL 4.2-5.4 [facility] Blood hemoglobin measurement (mass/volume)Ordered By: Dr. Horne on 05-16-2022 Hemoglobin (Bld) [Mass/Vol] 7.9 g/dL 12.0-15.0 [facility] Blood lymphocytes/100 leukoc ytesOrdered By: Dr. Horne on 05-16-2022 Lymphocytes/100 WBC (Bld) 25.2 % 19-41 [facility] Blood manual differential co mment interpretation (narrative result)Ordered By: Dr. Horne on 05-16-2022 Manual differential comment Abelardo (Bld) [Interp] SCANNED [facility] Blood monocytes/100 leukocyt esOrdered By: Dr. Horne on 05-16-2022 Monocytes/100 WBC (Bld) 17.7 % 0-10 [facility] Blood platelet mean volumeOr dered By: Dr. Horne on 05-16-2022 Platelet mean volume (Bld) [Entitic vol] 8.9 fL 6.2-12.0 [facility] Determination of erythrocyte mean corpuscular volume (MCV)Ordered By: Dr. Horne on 05-16-2022 MCV (RBC) [Entitic vol] 74.6 fL 81-99 [facility] Glucose Glucometer (dC) [M ass/Vol]Ordered By: Dr. Horne on 05-16-2022 Glucose [Mass/Vol] 121 mg/dL 74-106 [facility] Comment on above: MANAGEMENT OF PATIEN T CARE PER NURSING PROTOCOL Hematocrit Auto (Bld) [Volum e fraction]Ordered By: Dr. Horne on 05-16-2022 Hematocrit (Bld) [Volume fraction] 26.4 % 37-47 [facility] Laboratory - Chemistry and C hemistry - challengeOrdered By: Dr. Horne on 05-16-2022 ALP [Catalytic activity/Vol] 52 U/L 45-117 [facility] ALT [Catalytic activity/Vol] 19 U/L 13-56 [facility] CO2 [Moles/Vol] 22.0 mmol/L 21.0-32.0 [facility] Globulin (S) [Mass/Vol] 6.6 g/dL 2.2-4.2 [facility] [facility] Urea nitrogen/Creatinine [Mass ratio] 21.4 mg/mg 10-20 [facility] Laboratory - Hematology and Cell countsOrdered By: Dr. Horne on 05-16-2022 Anisocytosis Ql (Bld) 1+ [facility] Erythrocyte distribution width (RBC) [Entitic vol] 54.2 fL 35.1-43.9 [facility] Erythrocyte distribution width (RBC) [Ratio] 20.2 % 11.6-14.6 [facility] Immature granulocytes/100 WBC (Bld) 0.200 % 0.0-0.9 [facility] Comment on above: IG% - Immature Granu locytes (promyelocytes, myelocytes and metamyelocytes) > 1% indicates that a LEFT SHIFT is Present. MCH (RBC) [Entitic mass] 22.3 pg 27.0-32.0 [facility] Nucleated RBC/100 WBC (Bld) [Ratio] 0 % 0-5 [facility] MCHC Auto (RBC) [Mass/Vol]Or dered By: Dr. Horne on 05-16-2022 MCHC (RBC) [Mass/Vol] 29.9 g/dL 32-36 [facility] No Panel InformationOrdered By: Dr. Horne on 05-16-2022 Estimated Creatinine Clearance Calc 51.07 ml/min [facility] Estimated GFR (MDRD) Amer 65 mL/min >60 [facility] Comment on above: GFR Calc Estimated GFR (MDRD) Non-Af Amer 54 mL/min >60 [facility] Comment on above: Non- GFR Calc Platelets bldOrdered By: Dr. Horne on 05-16-2022 Platelets (Bld) [#/Vol] 280 10*3/uL 150-450 [facility] Serum or plasma albumin heber urement (mass/volume)Ordered By: Dr. Horne on 05-16-2022 Albumin [Mass/Vol] 2.7 g/dL 3.2-5.0 [facility] Serum or plasma albumin/glob ulin mass ratioOrdered By: Dr. Horne on 05-16-2022 Albumin/Globulin [Mass ratio] 0.4 {ratio} 0.9-2.4 [facility] Serum or plasma calcium heber urement (mass/volume)Ordered By: Dr. Horne on 05-16-2022 Calcium [Mass/Vol] 8.1 mg/dL 8.5-10.1 [facility] Serum or plasma creatinine m easurement (mass/volume)Ordered By: Dr. Horne on 05-16-2022 Creatinine [Mass/Vol] 1.12 mg/dL 0.55-1.02 [facility] Comment on above: The validity of the calculated GFR & GFRAA in patients over 70 years has not been determined. Clinical correlation is essential. Serum or plasma urea nitroge n measurement (mass/volume)Ordered By: Dr. Horne on 05-16-2022 Urea nitrogen [Mass/Vol] 24 mg/dL 7-18 [facility] Thin prep Papanicolaou smear with manual screeningOrdered By: Dr. Horne on 05-16-2022 Thin prep Papanicolaou smear with manual screening 1+ [facility] Thin prep Papanicolaou smear with manual screening 25 U/L 15-37 [facility] Thin prep Papanicolaou smear with manual screening 9 5-15 [facility] Hypochromatic red blood cell detectionOrdered By: Dr. Ye on 05-15-2022 Hypochromia Ql (Bld) 1+ [facility] No Panel InformationOrdered By: Dr. Dietz on 05-15-2022 Thyroid Stimulating Hormone (TSH) 5.21 uIU/mL 0.358-3.74 [facility] Ovalocyte detectionOrdered B y: Dr. Ye on 05-15-2022 Ovalocytes LM Ql (Bld) RARE [facility] Whole blood hemoglobin A1c/t otal hemoglobin ratio (mass fraction)Ordered By: Dr. Dietz on 05-15-2022 HbA1c (Bld) [Mass fraction] 5.6 % 3.8-5.6 [facility] Comment on above: Normal < 5.7 % Predi abetic 5.7 - 6.4 % Diabetic >or= 6.5 % Please note range changes. Absolute lymphocyte countOrd ered By: Dr. Leyva on 05-14-2022 Lymphocytes Auto (Unsp spec) [#/Vol] 1.47 10*3/uL 0.83-4.51 [facility] Basophil percentageOrdered B y: Dr. Leyva on 05-14-2022 Basophils/100 WBC (Bld) 0.8 % 0-1 [facility] Chloride [Moles/Vol] 107 mmol/L 98-107 [facility] Eosinophils/100 WBC (Bld) 2.5 % 0-5 [facility] Glucose [Mass/Vol] 100 mg/dL 74-106 [facility] Comment on above: Fasting Glucose resu lt from 100 to 125 mg/dL suggests IMPAIRED HOMEOSTASIS per A.D.A. criteria. Neutrophils (Bld) [#/Vol] 3.6 10*3/uL 2.0-7.7 [facility] Neutrophils/100 WBC (Bld) 58.6 % 47-70 [facility] Potassium [Moles/Vol] 4.1 mmol/L 3.5-5.1 [facility] Sodium [Moles/Vol] 133 mmol/L 136-145 [facility] WBC (Bld) [#/Vol] 6.1 10*3/uL 4.4-11.0 [facility] Blood erythrocytes count (nu mber/volume)Ordered By: Dr. Leyva on 05-14-2022 RBC (Bld) [#/Vol] 3.20 10*6/uL 4.2-5.4 [facility] Blood hemoglobin measurement (mass/volume)Ordered By: Dr. Leyva on 05-14-2022 Hemoglobin (Bld) [Mass/Vol] 6.5 g/dL 12.0-15.0 [facility] Blood lymphocytes/100 leukoc ytesOrdered By: Dr. Leyva on 05-14-2022 Lymphocytes/100 WBC (Bld) 24.0 % 19-41 [facility] Blood monocytes/100 leukocyt esOrdered By: Dr. Leyva on 05-14-2022 Monocytes/100 WBC (Bld) 13.6 % 0-10 [facility] Blood platelet mean volumeOr dered By: Dr. Leyva on 05-14-2022 Platelet mean volume (Bld) [Entitic vol] 8.9 fL 6.2-12.0 [facility] Determination of erythrocyte mean corpuscular volume (MCV)Ordered By: Dr. Leyva on 05-14-2022 MCV (RBC) [Entitic vol] 71.9 fL 81-99 [facility] Hematocrit Auto (Bld) [Volum e fraction]Ordered By: Dr. Leyva on 05-14-2022 Hematocrit (Bld) [Volume fraction] 23.0 % 37-47 [facility] INR in Blood by Coagulation assayOrdered By: Dr. Leyva on 05-14-2022 INR Coag (Bld) [Relative time] 1.3 {INR} [facility] Influenza virus A and B and SARS-CoV-2 (COVID-19) Ag panel - Upper respiratory specimOrdered By: Dr. Leyva on 05-14-2022 SARS-CoV-2 (COVID-19) RNA CARLTON+probe Ql (Resp) [facility] Laboratory - Chemistry and C hemistry - challengeOrdered By: Dr. Leyva on 05-14-2022 CO2 [Moles/Vol] 22.0 mmol/L 21.0-32.0 [facility] Urea nitrogen/Creatinine [Mass ratio] 21.0 mg/mg 10-20 [facility] Laboratory - CoagulationOrde red By: Dr. Leyva on 05-14-2022 aPTT Coag (Bld) [Time] 35.7 s 24.1-36.2 [facility] PT Coag (PPP) [Time] 15.5 s 11.7-14.9 [facility] Laboratory - Hematology and Cell countsOrdered By: Dr. Leyva on 05-14-2022 Erythrocyte distribution width (RBC) [Entitic vol] 48.3 fL 35.1-43.9 [facility] Erythrocyte distribution width (RBC) [Ratio] 18.6 % 11.6-14.6 [facility] Immature granulocytes/100 WBC (Bld) 0.500 % 0.0-0.9 [facility] Comment on above: IG% - Immature Granu locytes (promyelocytes, myelocytes and metamyelocytes) > 1% indicates that a LEFT SHIFT is Present. MCH (RBC) [Entitic mass] 20.3 pg 27.0-32.0 [facility] Nucleated RBC/100 WBC (Bld) [Ratio] 0 % 0-5 [facility] MCHC Auto (RBC) [Mass/Vol]Or dered By: Dr. Leyva on 05-14-2022 MCHC (RBC) [Mass/Vol] 28.3 g/dL 32-36 [facility] No Panel InformationOrdered By: Dr. Leyva on 05-14-2022 Estimated Creatinine Clearance Calc 57.20 ml/min [facility] Estimated GFR (MDRD) Amer 74 mL/min >60 [facility] Comment on above: GFR Calc Estimated GFR (MDRD) Non-Af Amer 61 mL/min >60 [facility] Comment on above: Non- GFR Calc Platelets bldOrdered By: Dr. Leyva on 05-14-2022 Platelets (Bld) [#/Vol] 331 10*3/uL 150-450 [facility] Serum or plasma calcium heber urement (mass/volume)Ordered By: Dr. Leyva on 05-14-2022 Calcium [Mass/Vol] 8.6 mg/dL 8.5-10.1 [facility] Serum or plasma creatinine m easurement (mass/volume)Ordered By: Dr. Leyva on 05-14-2022 Creatinine [Mass/Vol] 1.00 mg/dL 0.55-1.02 [facility] Comment on above: The validity of the calculated GFR & GFRAA in patients over 70 years has not been determined. Clinical correlation is essential. Serum or plasma urea nitroge n measurement (mass/volume)Ordered By: Dr. Leyva on 05-14-2022 Urea nitrogen [Mass/Vol] 21 mg/dL 11-11 [facility] Thin prep Papanicolaou smear with manual screeningOrdered By: Dr. Leyva on 05-14-2022 Thin prep Papanicolaou smear with manual screening 4 - [facility] XR Chest PA and Lateralon IMPRESSION: Right infrahilar infiltrate is new. Follow-up to document resolution recommended [employer]: DAREN Transcribe Date/Time: Mar 17 2022 8:34A Dictated by : DEON RENE MD This examination was interpreted and the report reviewed and electronically signed by: DEON RENE MD on Mar 17 2022 8:35AM [facility] DIVISION OF RADIOLOGY * * *Final Report* * * DATE OF EXAM: Mar 15 2022 10:58AM WOX 5291 - XR CHEST 2V FRONTAL/LAT / PROCEDURE REASON: Bronchitis * * * * Physician Interpretation * * * * EXAMINATION: CHEST RADIOGRAPH (2 VIEW FRONTAL & LATERAL) CLINICAL HISTORY: Bronchitis MQ: XC2_6 EXAM DATE/TIME: 03/15/2022 10:58 AM COMPARISON: 07/30/2017 RESULT: Lines, tubes, and devices: None. Lungs and pleura: No consolidation. No lung mass. No pleural effusion. No pneumothorax. Mild right infrahilar infiltrate is new Cardiomediastinal silhouette: Stable cardiomediastinal silhouette. Bones and soft tissues: Multilevel osteophytosis. Multilevel mild wedge deformities. Stable DIVISION OF RADIOLOGY Provider, Roxie Schaffer [facility] - 03/17/2022 * * *Final Report* * * DATE OF EXAM: Mar 15 2022 10:58AM WOX 5291 - XR CHEST 2V FRONTAL/LAT / PROCEDURE REASON: Bronchitis * * * * Physician Interpretation * * * * EXAMINATION: CHEST RADIOGRAPH (2 VIEW FRONTAL & LATERAL) CLINICAL HISTORY: Bronchitis MQ: XC2_6 EXAM DATE/TIME: 03/15/2022 10:58 AM COMPARISON: 07/30/2017 RESULT: Lines, tubes, and devices: None. Lungs and pleura: No consolidation. No lung mass. No pleural effusion. No pneumothorax. Mild right infrahilar infiltrate is new Cardiomediastinal silhouette: Stable cardiomediastinal silhouette. Bones and soft tissues: Multilevel osteophytosis. Multilevel mild wedge deformities. Stable IMPRESSION IMPRESSION: Right infrahilar infiltrate is new. Follow-up to document resolution recommended [employer]: PSCB Transcribe Date/Time: Mar 17 2022 8:34A Dictated by : DEON RENE MD This examination was interpreted and the report reviewed and electronically signed by: DEON RENE MD on Mar 17 2022 8:35AM EST [facility] XR Chest PA and LateralOrder ed By: [facility] Provider on 03-17-2022 [facility] XR Chest PA and Lateralon Radiology Study observation (narrative) [facility] Absolute lymphocyte countOrd ered By: Dr. Gómez on 01-30-2022 Lymphocytes Auto (Unsp spec) [#/Vol] 1.52 10*3/uL 0.83-4.51 [facility] Basophil percentageOrdered B y: Dr. Gómez on 01-30-2022 Basophils/100 WBC (Bld) 0.8 % 0-1 [facility] Chloride [Moles/Vol] 104 mmol/L 98-107 [facility] Eosinophils/100 WBC (Bld) 3.2 % 0-5 [facility] Glucose [Mass/Vol] 107 mg/dL 74-106 [facility] Comment on above: Fasting Glucose resu lt from 100 to 125 mg/dL suggests IMPAIRED HOMEOSTASIS per A.D.A. criteria. Neutrophils (Bld) [#/Vol] 3.6 10*3/uL 2.0-7.7 [facility] Neutrophils/100 WBC (Bld) 57.0 % 47-70 [facility] Potassium [Moles/Vol] 4.2 mmol/L 3.5-5.1 [facility] Sodium [Moles/Vol] 136 mmol/L 136-145 [facility] WBC (Bld) [#/Vol] 6.2 10*3/uL 4.4-11.0 [facility] Blood erythrocytes count (nu mber/volume)Ordered By: Dr. Gómez on 01-30-2022 RBC (Bld) [#/Vol] 3.79 10*6/uL 4.2-5.4 [facility] Blood hemoglobin measurement (mass/volume)Ordered By: Dr. Gómez on 01-30-2022 Hemoglobin (Bld) [Mass/Vol] 8.0 g/dL 12.0-15.0 [facility] Blood lymphocytes/100 leukoc ytesOrdered By: Dr. Gómez on 01-30-2022 Lymphocytes/100 WBC (Bld) 24.4 % 19-41 [facility] Blood manual differential co mment interpretation (narrative result)Ordered By: Dr. Gómez on 01-30-2022 Manual differential comment Abelardo (Bld) [Interp] SCANNED [facility] Blood monocytes/100 leukocyt esOrdered By: Dr. Gómez on 01-30-2022 Monocytes/100 WBC (Bld) 14.3 % 0-10 [facility] Blood platelet mean volumeOr dered By: Dr. Gómez on 01-30-2022 Platelet mean volume (Bld) [Entitic vol] 8.8 fL 6.2-12.0 [facility] COVID-19 virus antigen assay Ordered By: Dr. Gómez on 01-30-2022 SARS-CoV-2 (COVID-19) Ag IA.rapid Ql (Resp) [facility] Determination of erythrocyte mean corpuscular volume (MCV)Ordered By: Dr. Gómez on 01-30-2022 MCV (RBC) [Entitic vol] 73.4 fL 81-99 [facility] Hematocrit Auto (Bld) [Volum e fraction]Ordered By: Dr. Gómez on 01-30-2022 Hematocrit (Bld) [Volume fraction] 27.8 % 37-47 [facility] Hypochromatic red blood cell detectionOrdered By: Dr. Gómez on 01-30-2022 Hypochromia Ql (Bld) 1+ [facility] Laboratory - Chemistry and C hemistry - challengeOrdered By: Dr. Gómez on 01-30-2022 Natriuretic peptide B (Bld) [Mass/Vol] 61.8 pg/mL 0-100 [facility] CO2 [Moles/Vol] 25.0 mmol/L 21.0-32.0 [facility] Urea nitrogen/Creatinine [Mass ratio] 22.0 mg/mg 10-20 [facility] Laboratory - Hematology and Cell countsOrdered By: Dr. Gómez on 01-30-2022 Anisocytosis Ql (Bld) 1+ [facility] Erythrocyte distribution width (RBC) [Entitic vol] 54.5 fL 35.1-43.9 [facility] Erythrocyte distribution width (RBC) [Ratio] 22.1 % 11.6-14.6 [facility] Immature granulocytes/100 WBC (Bld) 0.300 % 0.0-0.9 [facility] Comment on above: IG% - Immature Granu locytes (promyelocytes, myelocytes and metamyelocytes) > 1% indicates that a LEFT SHIFT is Present. MCH (RBC) [Entitic mass] 21.1 pg 27.0-32.0 [facility] Nucleated RBC/100 WBC (Bld) [Ratio] 0 % 0-5 [facility] MCHC Auto (RBC) [Mass/Vol]Or dered By: Dr. Gómez on 01-30-2022 MCHC (RBC) [Mass/Vol] 28.8 g/dL 32-36 [facility] No Panel InformationOrdered By: Dr. Gómez on 01-30-2022 Estimated Creatinine Clearance Calc 57.20 ml/min [facility] Estimated GFR (MDRD) Amer 74 mL/min >60 [facility] Comment on above: GFR Calc Estimated GFR (MDRD) Non-Af Amer 61 mL/min >60 [facility] Comment on above: Non- GFR Calc Platelets bldOrdered By: Dr. Gómez on 01-30-2022 Platelets (Bld) [#/Vol] 327 10*3/uL 150-450 [facility] Serum or plasma calcium heber urement (mass/volume)Ordered By: Dr. Gómez on 01-30-2022 Calcium [Mass/Vol] 8.8 mg/dL 8.5-10.1 [facility] Serum or plasma creatinine m easurement (mass/volume)Ordered By: Dr. Gómez on 01-30-2022 Creatinine [Mass/Vol] 1.00 mg/dL 0.55-1.02 [facility] Comment on above: The validity of the calculated GFR & GFRAA in patients over 70 years has not been determined. Clinical correlation is essential. Serum or plasma urea nitroge n measurement (mass/volume)Ordered By: Dr. Gómez on 01-30-2022 Urea nitrogen [Mass/Vol] 22 mg/dL 7- [facility] Thin prep Papanicolaou smear with manual screeningOrdered By: Dr. Gómez on 01-30-2022 Thin prep Papanicolaou smear with manual screening 7 5-15 [facility] Absolute lymphocyte counton 01-12-2022 Lymphocytes Auto (Unsp spec) [#/Vol] 1.17 10*3/uL 0.83-4.51 [facility] Work Phone: Basophil percentageon 2021 Basophils/100 WBC (Bld) 0.9 % 0-1 [facility] Work Phone: Chloride [Moles/Vol] 105 mmol/L 98-107 [facility] Work Phone: Eosinophils/100 WBC (Bld) 5.3 % 0-5 [facility] Work Phone: Glucose [Mass/Vol] 109 mg/dL 74-106 [facility] Work Phone: [phone] Comment on above: Fasting Glucose resu lt from 100 to 125 mg/dL suggests IMPAIRED HOMEOSTASIS per A.D.A. criteria. Neutrophils (Bld) [#/Vol] 2.4 10*3/uL 2.0-7.7 [facility] Work Phone: Neutrophils/100 WBC (Bld) 52.4 % 47-70 [facility] Work Phone: [phone] Potassium [Moles/Vol] 3.9 mmol/L 3.5-5.1 [facility] Work Phone: Sodium [Moles/Vol] 135 mmol/L 136-145 [facility] Work Phone: WBC (Bld) [#/Vol] 4.5 10*3/uL 4.4-11.0 [facility] Work Phone: Blood erythrocytes count (nu mber/volume)on 01-12-2022 RBC (Bld) [#/Vol] 4.04 10*6/uL 4.2-5.4 [facility] Work Phone: Blood hemoglobin measurement (mass/volume)on 01-12-2022 Hemoglobin (Bld) [Mass/Vol] 9.4 g/dL 12.0-15.0 [facility] Work Phone: Blood lymphocytes/100 leukoc yteson 01-12-2022 Lymphocytes/100 WBC (Bld) 25.9 % 19-41 [facility] Work Phone: Blood monocytes/100 leukocyt eson 01-12-2022 Monocytes/100 WBC (Bld) 15.3 % 0-10 [facility] Work Phone: Blood platelet mean volumeon 01-12-2022 Platelet mean volume (Bld) [Entitic vol] 9.1 fL 6.2-12.0 [facility] Work Phone: Determination of erythrocyte mean corpuscular volume (MCV)on 01-12-2022 MCV (RBC) [Entitic vol] 71.8 fL 81-99 [facility] Work Phone: Glucose Glucometer (BldC) [M ass/Vol]on 01-12-2022 Glucose [Mass/Vol] 190 mg/dL 74-106 [facility] Work Phone: Comment on above: MANAGEMENT OF PATIEN T CARE PER NURSING PROTOCOL Hematocrit Auto (Bld) [Volum e fraction]on 01-12-2022 Hematocrit (Bld) [Volume fraction] 32.4 % 37-47 [facility] Work Phone: INR in Blood by Coagulation assayon 01-12-2022 INR Coag (Bld) [Relative time] 1.2 {INR} [facility] Work Phone: Laboratory - Chemistry and C hemistry - challengeon 01-12-2022 CO2 [Moles/Vol] 22.0 mmol/L 21.0-32.0 [facility] Work Phone: Urea nitrogen/Creatinine [Mass ratio] 13.1 mg/mg 10-20 [facility] Work Phone: Laboratory - Coagulationon 0 01-12-2022 aPTT Coag (Bld) [Time] 35.4 s 24.1-36.2 [facility] Work Phone: PT Coag (PPP) [Time] 14.8 s 11.7-14.9 [facility] Work Phone: Laboratory - Hematology and Cell countson 01-12-2022 Erythrocyte distribution width (RBC) [Entitic vol] 47.1 fL 35.1-43.9 [facility] Work Phone: Erythrocyte distribution width (RBC) [Ratio] 18.5 % 11.6-14.6 [facility] Work Phone: Immature granulocytes/100 WBC (Bld) 0.200 % 0.0-0.9 [facility] Work Phone: Comment on above: IG% - Immature Granu locytes (promyelocytes, myelocytes and metamyelocytes) > 1% indicates that a LEFT SHIFT is Present. MCH (RBC) [Entitic mass] 20.8 pg 27.0-32.0 [facility] Work Phone: Nucleated RBC/100 WBC (Bld) [Ratio] 0 % 0-5 [facility] Work Phone: MCHC Auto (RBC) [Mass/Vol]on 01-12-2022 MCHC (RBC) [Mass/Vol] 29.0 g/dL 32-36 [facility] Work Phone: No Panel Informationon 01-12 Estimated Creatinine Clearance Calc 62.85 ml/min [facility] Work Phone: Estimated GFR (MDRD) Amer 82 mL/min >60 [facility] Work Phone: Comment on above: GFR Calc Estimated GFR (MDRD) Non-Af Amer 68 mL/min >60 [facility] Work Phone: Comment on above: Non- GFR Calc Thyroid Stimulating Hormone (TSH) 1.06 uIU/mL 0.358-3.74 [facility] Work Phone: Platelets bldon 01-12-2022 Platelets (Bld) [#/Vol] 321 10*3/uL 150-450 [facility] Work Phone: Serum or plasma calcium heber urement (mass/volume)on 01-12-2022 Calcium [Mass/Vol] 8.7 mg/dL 8.5-10.1 [facility] Work Phone: Serum or plasma creatinine m easurement (mass/volume)on 01-12-2022 Creatinine [Mass/Vol] 0.91 mg/dL 0.55-1.02 [facility] Work Phone: Comment on above: The validity of the calculated GFR & GFRAA in patients over 70 years has not been determined. Clinical correlation is essential. Serum or plasma urea nitroge n measurement (mass/volume)on 01-12-2022 Urea nitrogen [Mass/Vol] 12 mg/dL -18 [facility] Work Phone: Thin prep Papanicolaou smear with manual screeningon 01-12-2022 Thin prep Papanicolaou smear with manual screening 8 5-15 [facility] Work Phone: Whole blood hemoglobin A1c/t otal hemoglobin ratio (mass fraction)on 01-11-2022 HbA1c (Bld) [Mass fraction] 5.9 % 3.8-5.6 [facility] Work Phone: Comment on above: Normal < 5.7 % Predi abetic 5.7 - 6.4 % Diabetic >or= 6.5 % Please note range changes. Absolute lymphocyte counton 01-10-2022 Lymphocytes Auto (Unsp spec) [#/Vol] 1.38 10*3/uL 0.83-4.51 [facility] Work Phone: Basophil percentageon 2021 Basophils/100 WBC (Bld) 1.0 % 0-1 [facility] Work Phone: Chloride [Moles/Vol] 106 mmol/L 98-107 [facility] Work Phone: Eosinophils/100 WBC (Bld) 3.3 % 0-5 [facility] Work Phone: Glucose [Mass/Vol] 147 mg/dL 74-106 [facility] Work Phone: [phone] Comment on above: Fasting Glucose resu lt greater than or equal to 126 mg/dL suggests DIABETES MELLITUS per A.D.A. criteria. Neutrophils (Bld) [#/Vol] 2.6 10*3/uL 2.0-7.7 [facility] Work Phone: Neutrophils/100 WBC (Bld) 53.2 % 47-70 [facility] Work Phone: Potassium [Moles/Vol] 3.5 mmol/L 3.5-5.1 [facility] Work Phone: Sodium [Moles/Vol] 137 mmol/L 136-145 [facility] Work Phone: [phone] WBC (Bld) [#/Vol] 4.9 10*3/uL 4.4-11.0 [facility] Work Phone: [phone] Blood erythrocytes count (nu mber/volume)on 01-10-2022 RBC (Bld) [#/Vol] 3.44 10*6/uL 4.2-5.4 [facility] Work Phone: Blood hemoglobin measurement (mass/volume)on 01-10-2022 Hemoglobin (Bld) [Mass/Vol] 6.8 g/dL 12.0-15.0 [facility] Work Phone: Blood lymphocytes/100 leukoc yteson 01-10-2022 Lymphocytes/100 WBC (Bld) 28.5 % 19-41 [facility] Work Phone: Blood monocytes/100 leukocyt eson 01-10-2022 Monocytes/100 WBC (Bld) 13.8 % 0-10 [facility] Work Phone: Blood platelet mean volumeon 01-10-2022 Platelet mean volume (Bld) [Entitic vol] 9.2 fL 6.2-12.0 [facility] Work Phone: CBC W Auto Differential pane l (Bld)on 01-10-2022 Abs Immature Gran <0.10 k/uL [facility] Basophils (Bld) [#/Vol] 0.05 10*3/uL <0.11 k/uL [facility] Basophils/100 WBC (Bld) 1.0 % [facility] Differential cell count method Nom (Bld) Auto [facility] Eosinophils (Bld) [#/Vol] 0.16 10*3/uL <0.46 k/uL [facility] Eosinophils/100 WBC (Bld) 3.1 % [facility] Erythrocyte distribution width (RBC) [Ratio] 18.2 % High 11.5 - 15.0 % [facility] Hematocrit (Bld) [Volume fraction] 25.3 % Low 36.0 - 46.0 % [facility] Hemoglobin (Bld) [Mass/Vol] 7.2 g/dL Low 11.5 - 15.5 g/dL [facility] Immature Gran % 0.2 % [facility] Lymphocytes (Bld) [#/Vol] 1.41 10*3/uL 1.00 - 4.00 k/uL [facility] Lymphocytes/100 WBC (Bld) 27.4 % [facility] MCH (RBC) [Entitic mass] 20.4 pg Low 26.0 - 34.0 pg [facility] MCHC (RBC) [Mass/Vol] 28.5 g/dL Low 30.5 - 36.0 g/dL [facility] MCV (RBC) [Entitic vol] 71.7 fL Low 80.0 - 100.0 fL [facility] Monocytes (Bld) [#/Vol] 0.64 10*3/uL <0.87 k/uL [facility] Monocytes/100 WBC (Bld) 12.4 % [facility] Neutrophils (Bld) [#/Vol] 2.88 10*3/uL 1.45 - 7.50 k/uL [facility] Neutrophils/100 WBC (Bld) 55.9 % [facility] Nucleated RBC (Bld) [#/Vol] <0.01 k/uL [facility] Nucleated RBC/100 WBC (Bld) [Ratio] 0.0 /100 WBC [facility] Platelet mean volume (Bld) [Entitic vol] 9.6 fL 9.0 - 12.7 fL [facility] Platelets (Bld) [#/Vol] 371 10*3/uL 150 - 400 k/uL [facility] RBC (Bld) [#/Vol] 3.53 10*6/uL Low 3.90 - 5.2 0 m/uL [facility] WBC (Bld) [#/Vol] 5.15 10*3/uL 3.70 - 11. 00 k/uL [facility] Determination of erythrocyte mean corpuscular volume (MCV)on 01-10-2022 MCV (RBC) [Entitic vol] 70.1 fL 81-99 [facility] Work Phone: Fibrin D-dimer FEU (PPP) [Ma ss/Vol]on 01-10-2022 Fibrin D-dimer FEU IA (Bld) [Mass/Vol] 1.21 ug/mL [facility] Hematocrit Auto (Bld) [Volum e fraction]on 01-10-2022 Hematocrit (Bld) [Volume fraction] 24.1 % 37-47 [facility] Work Phone: Iron measurement (mass/mass) on 01-10-2022 Iron (Unsp spec) [Mass/Mass] 14 ug/dL 50-170 [facility] Work Phone: Laboratory - Chemistry and C hemistry - challengeon 01-10-2022 CO2 [Moles/Vol] 23.0 mmol/L 21.0-32.0 [facility] Work Phone: Urea nitrogen/Creatinine [Mass ratio] 15.5 mg/mg 10-20 [facility] Work Phone: Laboratory - Hematology and Cell countson 01-10-2022 Erythrocyte distribution width (RBC) [Entitic vol] 44.8 fL 35.1-43.9 [facility] Work Phone: Erythrocyte distribution width (RBC) [Ratio] 18.0 % 11.6-14.6 [facility] Work Phone: Immature granulocytes/100 WBC (Bld) 0.200 % 0.0-0.9 [facility] Work Phone: Comment on above: IG% - Immature Granu locytes (promyelocytes, myelocytes and metamyelocytes) > 1% indicates that a LEFT SHIFT is Present. MCH (RBC) [Entitic mass] 19.8 pg 27.0-32.0 [facility] Work Phone: Nucleated RBC/100 WBC (Bld) [Ratio] 0 % 0-5 [facility] Work Phone: MCHC Auto (RBC) [Mass/Vol]on 01-10-2022 MCHC (RBC) [Mass/Vol] 28.2 g/dL 32-36 [facility] Work Phone: No Panel Informationon 01-10 Total Iron Binding Capacity 347 ug/dL 250-450 [facility] Work Phone: Troponin I High Sensitivity 23 pg/mL 3.0-54.0 [facility] Work Phone: Comment on above: Please Note: New Janiya t Units and Gender Specific Reference Ranges. For more information see Policy Stat Procedure [facility] High Sensitivity Troponin (TNIH) and attachments. Estimated Creatinine Clearance Calc 68.09 ml/min [facility] Work Phone: Estimated GFR (MDRD) Amer 91 mL/min >60 [facility] Work Phone: Comment on above: GFR Calc Estimated GFR (MDRD) Non-Af Amer 75 mL/min >60 [facility] Work Phone: Comment on above: Non- GFR Calc Troponin I High Sensitivity 20 pg/mL 3.0-54.0 [facility] Work Phone: Comment on above: Please Note: New Janiya t Units and Gender Specific Reference Ranges. For more information see Policy Stat Procedure [facility] High Sensitivity Troponin (TNIH) and attachments. D-Dimer Quantitative (PE/DVT) 1.21 FEU/ug/m 0.27-0.49 [facility] Work Phone: Comment on above: D-Dimer ELEVATED (>0 .49): Additional studies and clinicalassessments are indicated to conclude diagnosis of:Deep Vein Thrombosis (DVT) or Pulmonary Embolism (PE)RESULTS CALLED TO [facility] CANDYRADHA MAR RN 01/10/22 1302 [address].REPORT READ BACK BY SAME. Platelets bldon 01-10-2022 Platelets (Bld) [#/Vol] 345 10*3/uL 150-450 [facility] Work Phone: Serum or plasma calcium heber urement (mass/volume)on 01-10-2022 Calcium [Mass/Vol] 8.8 mg/dL 8.5-10.1 [facility] Work Phone: Serum or plasma creatinine m easurement (mass/volume)on 01-10-2022 Creatinine [Mass/Vol] 0.84 mg/dL 0.55-1.02 [facility] Work Phone: Comment on above: The validity of the calculated GFR & GFRAA in patients over 70 years has not been determined. Clinical correlation is essential. Serum or plasma ferritin william surement (mass/volume)on 01-10-2022 Ferritin [Mass/Vol] 9 ng/mL 8-252 [facility] Work Phone: Serum or plasma iron saturat ion measurement (mass fraction)on 01-10-2022 Iron saturation [Mass fraction] 4.0 % 15.0-55.0 [facility] Work Phone: Serum or plasma urea nitroge n measurement (mass/volume)on 01-10-2022 Urea nitrogen [Mass/Vol] 13 mg/dL 7-18 [facility] Work Phone: Thin prep Papanicolaou smear with manual screeningon 01-10-2022 Thin prep Papanicolaou smear with manual screening 8 5-15 [facility] Work Phone: XR Wrist - left 4 Viewson IMPRESSION: Soft tis cain calcifications dorsal to the carpus. Smaller but similar calcification is seen dorsal to the right wrist on images from 09/25/2015. Differential is long but metabolic processes should be considered. [employer]: DAREN Transcribe Date/Time: Aug 06 2020 1:40P Dictated by : FOZIA MARK MD This examination was interpreted and the report reviewed and electronically signed by: FOZIA MARK MD on Aug 06 2020 1:44PM [facility] DIVISION OF RADIOLOGY * * *Final Report* * * DATE OF EXAM: Aug 06 2020 1:37PM WOX [id number] - XR WRIST 4V PA/LAT/OBL/SCAPH LT / PROCEDURE REASON: Left wrist pain * * * * Physician Interpretation * * * * PROCEDURE: Left wrist INDICATION: Left wrist pain .Dorsal left wrist pain x 1 day without injury TECHNIQUE: XR WRIST 4V PA/LAT/OBL/SCAPH LT COMPARISON: None FINDINGS: Calcifications dorsal to the carpus, the largest measuring up to 13 mm. No adjacent bony erosion. No fracture or dislocation. DIVISION OF RADIOLOGY [facility] * * *Final Report* * * DATE OF EXAM: Aug 06 2020 1:37PM WOX [id number] - XR WRIST 4V PA/LAT/OBL/SCAPH LT / PROCEDURE REASON: Left wrist pain * * * * Physician Interpretation * * * * PROCEDURE: Left wrist INDICATION: Left wrist pain .Dorsal left wrist pain x 1 day without injury TECHNIQUE: XR WRIST 4V PA/LAT/OBL/SCAPH LT COMPARISON: None FINDINGS: Calcifications dorsal to the carpus, the largest measuring up to 13 mm. No adjacent bony erosion. No fracture or dislocation. IMPRESSION IMPRESSION: Soft tissue calcifications dorsal to the carpus. Smaller but similar calcification is seen dorsal to the right wrist on images from 09/25/2015. Differential is long but metabolic processes should be considered. [employer]: PSCB Transcribe Date/Time: Aug 06 2020 1:40P Dictated by : FOZIA MARK MD This examination was interpreted and the report reviewed and electronically signed by: FOZIA MARK MD on Aug 06 2020 1:44PM EST [facility] Radiology Study observation (narrative) [facility] XR Wrist - left 4 ViewsOrder ed By: [facility] Provider on 08-06-2020 [facility] VL VENOUS BILATERAL LOWER EX T FOR DVTon 02-03-2017 VL VENOUS BILATERAL LOWER EXT FOR DVT ORIGINALDUPLEX LOWER EXTREMITY VENOUS DOPPLER: Bilateral Clinical Statement: edema , bilateral lower extremity edema Comparison: None Findings: The bilateral femoral and popliteal veins and the proximal visualized portions of the posterior tibial, peroneal, soleal and gastrocnemius veins show no direct or indirect evidence of thrombosis. There is normal phasic spontaneous flow in these veins which are also compressible. Spectral analysis shows normal flow augmentation in the superficial femoral and popliteal veins with physiologic maneuvers. The greater and lesser saphenous veins are also patent. IMPRESSION:No evidence of deep vein thrombosis in either lower extremity. Interpreted By: Ivan Farah MDPreliminary Report By: Ivan Farah MDElectronically Signed By: Ivan Farah MD Dictated Date: 02/03/2017 12:25:55 PM Prelim Date: 02/03/2017 12:25:55 PM Sign Date: 02/03/2017 12:26:14 PM Normal [facility] ([place]) Office Visit: f/u thyroidon 11-27-2016 Dietary management education, guidance, and counseling (procedure) yes Invalid Interpretation Code [facility] Work Phone: Documentation of current medications (procedure) Done Invalid Interpretation Code [facility] Work Phone: Fall risk assessment No Invalid Interpretation Code [facility] Work Phone: Tobacco smoking status NHIS Never Invalid Interpretation Code [facility] Work Phone: Tobacco use [facility] Never smoker Invalid Interpretation Code [facility] Work Phone: Vital Signs Date Time Vital Sign Value Performing Clinician Facility 01-06-2025 15:12-0400 Diastolic blood pressure 68 mm[Hg] Mariana Suppan IP [employer]NEY[employer] Work Phone: [facility] 01-06-2025 15:12-0400 Systolic blood pressure 140 mm[Hg] Mariana Suppan IP ATT[employer]NEY[employer] CLE[employer] Work Phone: [facility] 01-06-2025 14:48-0400 Body mass index (BMI) [Ratio] 37.77 kg/m2 Mariana Suppan IP [employer] Work Phone: [facility] 01-06-2025 14:48-0400 Body temperature 98.4 [degF] Mariana Suppan IP ATT[employer]NEY[employer]IPMENT CLE[employer] Work Phone: [facility] 01-06-2025 14:48-0400 Body weight 102.97 kg Mariana Suppan IP ATT[employer] CLE[employer] Work Phone: [facility] 01-06-2025 14:48-0400 Heart rate 68 /min Mariana Suppan IP ATT[employer] CLE[employer] Work Phone: [facility] 01-06-2025 14:48-0400 SaO2% (BldA) [Mass fraction] 97 % Mariana Suppan IP ATT[employer]NEY[employer]MENT CLE[employer]ER Work Phone: [facility] Comment on above: 4L IN 10-20-2024 11:45-0400 Body mass index (BMI) [Ratio] 41.91 kg/m2 Mariana Suppan IP ATT[employer]MENT CLE[employer]ER Work Phone: [facility] 10-20-2024 11:45-0400 Body temperature 99.1 [degF] Mariana Suppan IP ATT[employer]NEY[employer] EQUIPMENT CLE[employer]ER Work Phone: [facility] 10-20-2024 11:45-0400 Body weight 100.7 kg Mariana Suppan IP ATT[employer]MENT CLE[employer]ER Work Phone: [facility] 10-20-2024 11:45-0400 Diastolic blood pressure 74 mm[Hg] Mariana Suppan IP ATT[employer]NEY[employer] EQUIPMENT CLE[employer]ER Work Phone: [facility] 10-20-2024 11:45-0400 Heart rate 70 /min Mariana Suppan IP ATT[employer]MENT CLE[employer] Work Phone: [facility] 10-20-2024 11:45-0400 SaO2% (BldA) [Mass fraction] 89 % Mariana Suppan IP [employer]IPMENT CLE[employer]ER Work Phone: [facility] 10-20-2024 11:45-0400 Systolic blood pressure 136 mm[Hg] Mariana Suppan IP ATT[employer]NEY[employer] E[employer]IPMENT CLE[employer]ER Work Phone: [facility] 10-06-2024 14:14-0400 Body mass index (BMI) [Ratio] 42.86 kg/m2 Mariana Suppan [employer] Work Phone: [facility] 10-06-2024 14:14-0400 Body temperature 97.7 [degF] Mariana Suppan IP ATT[employer] E[employer]IPMENT CLE[employer] Work Phone: [facility] 10-06-2024 14:14-0400 Body weight 102.97 kg Mariana Suppan IP ATT[employer] E[employer]IPMENT CLE[employer]ER Work Phone: [facility] 10-06-2024 14:14-0400 Diastolic blood pressure 75 mm[Hg] Mariana Suppan IP ATT[employer]NEY[employer] E[employer]IPMENT CLE[employer]ER Work Phone: [facility] 10-06-2024 14:14-0400 Heart rate 75 /min Mariana Suppan IP ATT[employer] E[employer]IPMENT CLEANER Work Phone: [facility] 10-06-2024 14:14-0400 SaO2% (BldA) [Mass fraction] 88 % Mariana Suppan IP ATT[employer] E[employer]IPMENT CLEANER Work Phone: [facility] 10-06-2024 14:14-0400 Systolic blood pressure 142 mm[Hg] Mariana Suppan IP ATT[employer]NEY[employer] E[employer]IP[employer] CLEANER Work Phone: [facility] 06-09-2024 15:02-0500 Diastolic blood pressure 80 mm[Hg] Mariana Suppan IP ATT[employer]NEY[employer] E[employer]IPMENT CLE[employer]ER Work Phone: [facility] 06-09-2024 15:02-0500 Systolic blood pressure 120 mm[Hg] Mariana Suppan IP ATT[employer] E[employer]IPMENT CLE[employer]ER Work Phone: [facility] 06-09-2024 14:36-0500 Body height 155 cm Mariana Suppan IP ATT[employer]NEY[employer] E[employer]IPMENT CLEANER Work Phone: [facility] 06-09-2024 14:36-0500 Body mass index (BMI) [Ratio] 40.78 kg/m2 Mariana Suppan IP ATT[employer]NEY[employer]IPMENT CLE[employer]ER Work Phone: [facility] 06-09-2024 14:36-0500 Body temperature 97.7 [degF] Mariana Suppan IP ATT[employer]NEY[employer]IC[employer] EQUIPMENT CLEANER Work Phone: [facility] 06-09-2024 14:36-0500 Body weight 97.98 kg Mariana Suppan IP ATT[employer]NEY[employer] E[employer]IPMENT CLE[employer]ER Work Phone: [facility] 06-09-2024 14:36-0500 Heart rate 73 /min Mariana Suppan IP ATT[employer]NEY[employer]IPMENT CLE[employer]ER Work Phone: [facility] 06-09-2024 14:36-0500 Respiratory rate 18 /min Mariana Suppan IP ATT[employer]NEY[employer] EQUIPMENT CLEANER Work Phone: [facility] 06-09-2024 14:36-0500 SaO2% (BldA) [Mass fraction] 92 % Mariana Suppan IP ATT[employer]NEY[employer]IC[employer] EQUIPMENT CLEANER Work Phone: [facility] 04-25-2024 14:03-0500 Diastolic blood pressure 71 mm[Hg] July Haagen IP ATT[employer]NEY[employer] EQUIPMENT CLEANER Work Phone: [facility] 04-25-2024 14:03-0500 Heart rate 64 /min July Haagen IP ATT[employer]NEY[employer] EQUIPMENT CLEANER Work Phone: [facility] 04-25-2024 14:03-0500 Respiratory rate 16 /min July Haagen IP ATT[employer]NEY[employer]IC[employer] EQUIPMENT CLEANER Work Phone: [facility] 04-25-2024 14:03-0500 SaO2% (BldA) [Mass fraction] 93 % July Cedillo IP ATT[employer]NEY[employer]ICLE AND EQUIPMENT CLEANER Work Phone: [facility] 04-25-2024 14:03-0500 Systolic blood pressure 114 mm[Hg] July Cedillo IP ATT[employer]NEY[employer]IC[employer] EQUIPMENT CLEANER Work Phone: [facility] 01-26-2024 10:16-0400 Body height 165.1 cm [facility] 01-26-2024 10:16-0400 Body mass index (BMI) [Ratio] 35.94 kg/m2 [facility] 01-26-2024 10:16-0400 Body temperature 98.2 [degF] [facility] 01-26-2024 10:16-0400 Body weight 97.98 kg [facility] 01-26-2024 10:16-0400 Diastolic blood pressure 80 mm[Hg] [facility] 01-26-2024 10:16-0400 Heart rate 55 /min [facility] 01-26-2024 10:16-0400 Respiratory rate 14 /min [facility] 01-26-2024 10:16-0400 SaO2% (BldA) [Mass fraction] 95 % [facility] Comment on above: [facility] 01-26-2024 10:16-0400 Systolic blood pressure 152 mm[Hg] [facility] 12-29-2023 08:04-0400 Body height 165.1 cm Florencia Lundy MD Work Phone: [facility] 12-29-2023 08:04-0400 Body mass index (BMI) [Ratio] 34.61 kg/m2 Florencia Lundy MD Work Phone: [facility] 12-29-2023 08:04-0400 Body weight 94.35 kg Florencia Lundy MD Work Phone: [facility] 12-29-2023 08:04-0400 Diastolic blood pressure 72 mm[Hg] Florencia Lundy MD Work Phone: [facility] 12-29-2023 08:04-0400 Systolic blood pressure 128 mm[Hg] Florencia Lundy MD Work Phone: [facility] 12-03-2023 09:36-0400 Body height 165.1 cm Florencia Lundy MD Work Phone: [facility] 12-03-2023 09:36-0400 Body mass index (BMI) [Ratio] 35.61 kg/m2 Florencia Lundy MD Work Phone: [facility] 12-03-2023 09:36-0400 Body weight 97.07 kg Florencia Lundy MD Work Phone: [facility] 12-03-2023 09:36-0400 Diastolic blood pressure 70 mm[Hg] Florencia Lundy MD Work Phone: [facility] 12-03-2023 09:36-0400 Systolic blood pressure 130 mm[Hg] Florencia Lundy MD Work Phone: [facility] 11-25-2023 15:46-0400 Body height 153.7 cm Barak Tiwari MD Work Phone: [facility] 11-25-2023 15:46-0400 Body mass index (BMI) [Ratio] 41.11 kg/m2 Barak Tiwari MD Work Phone: [facility] 11-25-2023 15:46-0400 Body weight 97.07 kg Barak Tiwari MD Work Phone: [facility] 11-25-2023 15:46-0400 Diastolic blood pressure 84 mm[Hg] Barak Tiwari MD Work Phone: [facility] 11-25-2023 15:46-0400 Heart rate 76 /min Barak Tiwari MD Work Phone: [facility] 11-25-2023 15:46-0400 Systolic blood pressure 134 mm[Hg] Barak Tiwari MD Work Phone: [facility] 11-23-2023 13:34-0400 Body height 153.7 cm Stephanie Montoya PA-C Work Phone: [facility] 11-23-2023 13:34-0400 Body mass index (BMI) [Ratio] 40.34 kg/m2 Stephanie Montoya PA-C Work Phone: [facility] 11-23-2023 13:34-0400 Body weight 95.25 kg Stephanie HAMM-C Work Phone: [facility] 11-23-2023 13:34-0400 Diastolic blood pressure 72 mm[Hg] Stephanie Montoya PA-C Work Phone: [facility] 11-23-2023 13:34-0400 Systolic blood pressure 130 mm[Hg] Stephanie HAMM-C Work Phone: [facility] 09-11-2023 09:10-0400 Body mass index (BMI) [Ratio] 40.72 kg/m2 Patty Roman MD Work Phone: [facility] 09-11-2023 09:10-0400 Body weight 96.16 kg Patty Roman MD Work Phone: [facility] 09-11-2023 09:10-0400 Diastolic blood pressure 76 mm[Hg] Patty Roman MD Work Phone: [facility] 09-11-2023 09:10-0400 Systolic blood pressure 122 mm[Hg] Patty Roman MD Work Phone: [facility] 09-08-2023 10:29-0400 Diastolic blood pressure 78 mm[Hg] July Cedillo IP ATT[employer]NEY[employer] E[employer]IP[employer] CLEANER Work Phone: [facility] 09-08-2023 10:29-0400 Heart rate 55 /min July Cedillo IP ATT[employer]NEY[employer] E[employer]IPMENT CLEANER Work Phone: [facility] 09-08-2023 10:29-0400 Respiratory rate 16 /min July Haazul IP ATT[employer]NEY[employer]IC[employer] EQUIPMENT CLEANER Work Phone: [facility] 09-08-2023 10:29-0400 SaO2% (BldA) [Mass fraction] 90 % July Cedillo IP ATT[employer]NEY.[employer]IC[employer] EQUIPMENT CLEANER Work Phone: [facility] 09-08-2023 10:29-0400 Systolic blood pressure 136 mm[Hg] July Cedillo IP ATT[employer]NEY.[employer]IC[employer] AND EQUIPMENT CLEANER Work Phone: [facility] 08-13-2023 15:52-0400 Body weight 96.16 kg Oziel Haury IP ATT[employer]NEY[employer] EQUIPMENT CLEANER Work Phone: [facility] 08-13-2023 15:52-0400 Diastolic blood pressure 60 mm[Hg] Oziel Haury IP ATTORNEY[employer]IC[employer] EQUIPMENT CLEANER Work Phone: [facility] 08-13-2023 15:52-0400 Heart rate 64 /min Oziel Haury IP ATT[employer]NEY[employer]IC[employer] EQUIPMENT CLEANER Work Phone: [facility] 08-13-2023 15:52-0400 Respiratory rate 14 /min Oziel Haury IP ATT[employer]NEY[employer]IC[employer] EQUIPMENT CLEANER Work Phone: [facility] 08-13-2023 15:52-0400 SaO2% (BldA) [Mass fraction] 93 % Oziel Haury IP ATT[employer]NEY.VE[employer]IC[employer] EQUIPMENT CLEANER Work Phone: [facility] 08-13-2023 15:52-0400 Systolic blood pressure 104 mm[Hg] Oziel Haury IP ATTORNEY.VE[employer]IC[employer] EQUIPMENT CLEANER Work Phone: [facility] 06-08-2023 16:16-0500 Body temperature 98.4 [degF] Nerissa [place] IP ATT[employer]NEY.VE[employer]ICLE AND EQUIPMENT CLEANER Work Phone: [facility] 06-08-2023 16:16-0500 Body weight 95.25 kg Nerissa Mo IP ATT[employer]NEY.[employer]IC[employer] EQUIPMENT CLEANER Work Phone: [facility] 06-08-2023 16:16-0500 Diastolic blood pressure 70 mm[Hg] Nerissa [place] IP ATT[employer]NEY.[employer]HICLE AND EQUIPMENT CLEANER Work Phone: [facility] 06-08-2023 16:16-0500 Systolic blood pressure 128 mm[Hg] Nerissa [place] IP ATT[employer]NEY.VEHICLE AND EQUIPMENT CLEANER Work Phone: [facility] 10-07-2022 11:11-0400 Body height 165.[address] Barak Tiwari Work Phone: [facility] 10-07-2022 11:11-0400 Body mass index (BMI) [Ratio] 39.9 kg/m2 Dr. Barak Tiwari Work Phone: [facility] 10-07-2022 11:11-0400 Body weight 108.[address] Barak Tiwari Work Phone: [facility] 10-07-2022 11:11-0400 Diastolic blood pressure 70 mm[Hg] Dr. Barak Tiwari Work Phone: [facility] 10-07-2022 11:11-0400 Heart rate 64 /min Dr. Barak Tiwari Work Phone: [facility] 10-07-2022 11:11-0400 Respiratory rate 18 /min Dr. Barak Tiwari Work Phone: [facility] 10-07-2022 11:11-0400 Systolic blood pressure 192 mm[Hg] Dr. Barak Tiwari Work Phone: [facility] 09-01-2022 14:00-0400 Body weight 108.41 kg Barak Tiwari MD Work Phone: [facility] 09-01-2022 14:00-0400 Diastolic blood pressure 68 mm[Hg] Barak Tiwari MD Work Phone: [facility] 09-01-2022 14:00-0400 Heart rate 63 /min Barak Tiwari MD Work Phone: [facility] 09-01-2022 14:00-0400 SaO2% (BldA) [Mass fraction] 93 % Barak Tiwari MD Work Phone: [facility] 09-01-2022 14:00-0400 Systolic blood pressure 132 mm[Hg] Barak Tiwari MD Work Phone: [facility] 08-30-2022 10:41-0400 Body weight 108.41 kg Barak Tiwari MD Work Phone: [facility] 08-30-2022 10:41-0400 Diastolic blood pressure 58 mm[Hg] Barak Tiwari MD Work Phone: [facility] 08-30-2022 10:41-0400 Heart rate 63 /min Barak Tiwari MD Work Phone: [facility] 08-30-2022 10:41-0400 Respiratory rate 16 /min Barak Tiwari MD Work Phone: [facility] 08-30-2022 10:41-0400 SaO2% (BldA) [Mass fraction] 93 % Barak Tiwari MD Work Phone: [facility] 08-30-2022 10:41-0400 Systolic blood pressure 128 mm[Hg] Barak Tiwari MD Work Phone: [facility] 08-18-2022 14:25-0400 Body weight 112.04 kg Patty Ame PA-C Work Phone: [facility] 08-18-2022 14:25-0400 Diastolic blood pressure 84 mm[Hg] Patty Ame PA-C Work Phone: [facility] 08-18-2022 14:25-0400 Heart rate 80 /min Patty Ame PA-C Work Phone: [facility] 08-18-2022 14:25-0400 SaO2% (BldA) [Mass fraction] 93 % Patty Ame PA-C Work Phone: [facility] 08-18-2022 14:25-0400 Systolic blood pressure 136 mm[Hg] Patty Ame PA-C Work Phone: [facility] 07-22-2022 11:03-0400 Body height 165.[address] Barak Tiwari Work Phone: [facility] 07-22-2022 11:03-0400 Body mass index (BMI) [Ratio] 39.2 kg/m2 Dr. Barak Tiwari Work Phone: [facility] 07-22-2022 11:03-0400 Body weight 107.[address] Barak Tiwari Work Phone: [facility] 07-22-2022 11:03-0400 Diastolic blood pressure 82 mm[Hg] Dr. Barak Tiwari Work Phone: [facility] 07-22-2022 11:03-0400 Heart rate 56 /min Dr. Barak Tiwari Work Phone: [facility] 07-22-2022 11:03-0400 Respiratory rate 18 /min Dr. Barak Tiwari Work Phone: [facility] 07-22-2022 11:03-0400 Systolic blood pressure 186 mm[Hg] Dr. Barak Tiwari Work Phone: [facility] 07-18-2022 15:16-0400 Body height 153.7 cm Barak Tiwari MD Work Phone: [facility] 07-18-2022 15:16-0400 Body weight 109.32 kg Barak Tiwari MD Work Phone: [facility] 07-18-2022 15:16-0400 Diastolic blood pressure 70 mm[Hg] Barak Tiwari MD Work Phone: [facility] 07-18-2022 15:16-0400 Heart rate 56 /min Barak Tiwari MD Work Phone: [facility] 07-18-2022 15:16-0400 SaO2% (BldA) [Mass fraction] 92 % Barak Tiwari MD Work Phone: [facility] 07-18-2022 15:16-0400 Systolic blood pressure 138 mm[Hg] Barak Tiwari MD Work Phone: [facility] 06-20-2022 08:27-0500 Body height 153.7 cm Chrissy Dowell MD Work Phone: [facility] 06-20-2022 08:27-0500 Body weight 106.14 kg Chrissy Dowell MD Work Phone: [facility] 06-20-2022 08:27-0500 Diastolic blood pressure 74 mm[Hg] Chrissy Dowell MD Work Phone: [facility] 06-20-2022 08:27-0500 Heart rate 82 /min Chrissy Dowell MD Work Phone: [facility] 06-20-2022 08:27-0500 Respiratory rate 14 /min Chrissy Dowell MD Work Phone: [facility] 06-20-2022 08:27-0500 SaO2% (BldA) [Mass fraction] 88 % Chrissy Dowell MD Work Phone: [facility] 06-20-2022 08:27-0500 Systolic blood pressure 110 mm[Hg] Chrissy Dowell MD Work Phone: [facility] 06-20-2022 08:10-0500 Body height 153.7 cm Pulm Wstr Work Phone: [facility] 06-20-2022 08:10-0500 Body weight 106.14 kg Pulm Wstr Work Phone: [facility] 06-20-2022 08:10-0500 Heart rate 82 /min Pulm Wstr Work Phone: [facility] 06-20-2022 08:10-0500 Respiratory rate 14 /min Pulm Wstr Work Phone: [facility] 06-20-2022 08:10-0500 SaO2% (BldA) [Mass fraction] 95 % Pulm Wstr Work Phone: [facility] 06-06-2022 11:33-0500 Body weight 108.86 kg Barak Tiwari MD Work Phone: [facility] 06-06-2022 11:33-0500 Diastolic blood pressure 74 mm[Hg] Barak Tiwari MD Work Phone: [facility] 06-06-2022 11:33-0500 Heart rate 57 /min Barak Tiwari MD Work Phone: [facility] 06-06-2022 11:33-0500 SaO2% (BldA) [Mass fraction] 97 % Barak Tiwari MD Work Phone: [facility] 06-06-2022 11:33-0500 Systolic blood pressure 132 mm[Hg] Barak Tiwari MD Work Phone: [facility] 05-29-2022 16:03-0500 Body temperature 98.6 [degF] Dr. Barak Tiwari Work Phone: [facility] 05-29-2022 16:03-0500 Body weight 111.[address] Barak Tiwari Work Phone: [facility] 05-29-2022 16:03-0500 Diastolic blood pressure 71 mm[Hg] Dr. Barak Tiwari Work Phone: [facility] 05-29-2022 16:03-0500 Heart rate 64 /min Dr. Barak Tiwari Work Phone: [facility] 05-29-2022 16:03-0500 Respiratory rate 18 /min Dr. Barak Tiwari Work Phone: [facility] 05-29-2022 16:03-0500 SaO2% (BldA) [Mass fraction] 93 % Dr. Barak Tiwari Work Phone: [facility] 05-29-2022 16:03-0500 Systolic blood pressure 141 mm[Hg] Dr. Barak Tiwari Work Phone: [facility] 05-23-2022 09:20-0500 SaO2% (BldA) [Mass fraction] 93 % Barak Tiwari MD Work Phone: [facility] 05-23-2022 09:03-0500 Body weight 109.77 kg Barak Tiwari MD Work Phone: [facility] 05-23-2022 09:03-0500 Diastolic blood pressure 72 mm[Hg] Barak Tiwari MD Work Phone: [facility] 05-23-2022 09:03-0500 Heart rate 61 /min Barak Tiwari MD Work Phone: [facility] 05-23-2022 09:03-0500 Systolic blood pressure 152 mm[Hg] Barak Tiwari MD Work Phone: [facility] 05-16-2022 10:19-0500 Inhaled oxygen flow rate 2 L/min Dr. Braak Tiwari Work Phone: [facility] 05-16-2022 10:19-0500 SaO2% (BldA) [Mass fraction] 90 % Dr. Barak Tiwari Work Phone: 8(171)364-972624 [place] [address] 05-16-2022 07:24-0500 Body temperature 97.8 [degF] Dr. Barak Tiwari Work Phone: 0(852)607-658924 [place] [address] 05-16-2022 07:24-0500 Diastolic blood pressure 66 mm[Hg] Dr. Barak Tiwari Work Phone: 3(320)146-083961 [place] [address] 05-16-2022 07:24-0500 Heart rate 70 /min Dr. Barak Tiwari Work Phone: 5(156)915-316061 [place] [address] 05-16-2022 07:24-0500 Respiratory rate 16 /min Dr. Barak Tiwari Work Phone: 9(241)318-115161 [place] [address] 05-16-2022 07:24-0500 Systolic blood pressure 138 mm[Hg] Dr. Barak Tiwari Work Phone: 0(522)733-641861 [place] [address] 05-14-2022 16:28-0500 Body height 165.[address] Barak Tiwari Work Phone: 3(205)930-372861 [place] [address] 05-14-2022 16:28-0500 Body mass index (BMI) [Ratio] 42.4 kg/m2 Dr. Barak Tiwari Work Phone: 9(935)168-171524 [place] [address] 05-14-2022 16:28-0500 Body weight 115.[address] Barak Tiwari Work Phone: 3(215)531-285724 [place] [address] 05-14-2022 15:53-0500 Body temperature 98 [degF] [facility] 05-14-2022 15:53-0500 Diastolic blood pressure 61 mm[Hg] [facility] 05-14-2022 15:53-0500 Heart rate 55 /min [facility] 05-14-2022 15:53-0500 Respiratory rate 18 /min [facility] 05-14-2022 15:53-0500 SaO2% (BldA) [Mass fraction] 100 % [facility] 05-14-2022 15:53-0500 Systolic blood pressure 141 mm[Hg] [facility] 05-14-2022 09:17-0500 Body height 165.1 cm [facility] 05-14-2022 09:17-0500 Body mass index (BMI) [Ratio] 42.4 kg/m2 [facility] 05-14-2022 09:17-0500 Body weight 115.66 kg [facility] 05-13-2022 15:51-0500 Body weight 116.12 kg NA Latif PA-C Work Phone: [facility] 05-13-2022 15:51-0500 Diastolic blood pressure 86 mm[Hg] NA Latif PA-C Work Phone: [facility] 05-13-2022 15:51-0500 Heart rate 62 /min NA Latif PA-C Work Phone: [facility] 05-13-2022 15:51-0500 SaO2% (BldA) [Mass fraction] 92 % NA Latif PA-C Work Phone: [facility] 05-13-2022 15:51-0500 Systolic blood pressure 154 mm[Hg] NA Latif PA-C Work Phone: [facility] 03-19-2022 15:59-0500 Body weight 107.05 kg Barak Tiwari MD Work Phone: [facility] 03-19-2022 15:59-0500 Diastolic blood pressure 82 mm[Hg] Barak Tiwari MD Work Phone: [facility] 03-19-2022 15:59-0500 Heart rate 63 /min Barak Tiwari MD Work Phone: [facility] 03-19-2022 15:59-0500 SaO2% (BldA) [Mass fraction] 94 % Barak Tiwari MD Work Phone: [facility] 03-19-2022 15:59-0500 Systolic blood pressure 170 mm[Hg] Barak Tiwari MD Work Phone: [facility] 03-15-2022 09:55-0500 Body temperature 98.49 [degF] Barak Tiwari MD Work Phone: [facility] 03-15-2022 09:55-0500 Body weight 105.69 kg Barak Tiwari MD Work Phone: [facility] 03-15-2022 09:55-0500 Diastolic blood pressure 80 mm[Hg] Barak Tiwari MD Work Phone: [facility] 03-15-2022 09:55-0500 Heart rate 77 /min Barak Tiwari MD Work Phone: [facility] 03-15-2022 09:55-0500 Respiratory rate 16 /min Barak Tiwari MD Work Phone: [facility] 03-15-2022 09:55-0500 SaO2% (BldA) [Mass fraction] 95 % Barak Tiwari MD Work Phone: [facility] 03-15-2022 09:55-0500 Systolic blood pressure 148 mm[Hg] Barak Tiwari MD Work Phone: [facility] 02-25-2022 16:01-0400 Body temperature 98.2 [degF] July Haagen IP ATTORNEY.VEHICLE AND EQUIPMENT CLEANER Work Phone: [facility] 02-25-2022 16:01-0400 Diastolic blood pressure 96 mm[Hg] July Haagen IP ATTORNEY.VEHICLE AND EQUIPMENT CLEANER Work Phone: [facility] 02-25-2022 16:01-0400 Heart rate 61 /min July Haagen IP ATTORNEY.VEHICLE AND EQUIPMENT CLEANER Work Phone: [facility] 02-25-2022 16:01-0400 Respiratory rate 18 /min July Haagen IP ATTORNEY.VEHICLE AND EQUIPMENT CLEANER Work Phone: [facility] 02-25-2022 16:01-0400 SaO2% (BldA) [Mass fraction] 94 % July Haagen IP ATTORNEY.VEHICLE AND EQUIPMENT CLEANER Work Phone: [facility] 02-25-2022 16:01-0400 Systolic blood pressure 152 mm[Hg] July Haagen IP ATTORNEY.VEHICLE AND EQUIPMENT CLEANER Work Phone: [facility] 02-07-2022 11:41-0400 Body height 165.[address] Barak Tiwari Work Phone: [facility] Work Phone: 02-07-2022 11:41-0400 Body mass index (BMI) [Ratio] 37.4 kg/m2 Dr. Barak Tiwari Work Phone: [facility] 02-07-2022 11:41-0400 Body temperature 97 [degF] Dr. Barak Tiwari Work Phone: [facility] 02-07-2022 11:41-0400 Body weight 102.[address] Barak Tiwari Work Phone: [facility] 02-07-2022 11:41-0400 Diastolic blood pressure 114 mm[Hg] Dr. Barak Tiwari Work Phone: [facility] 02-07-2022 11:41-0400 Heart rate 66 /min Dr. Barak Tiwari Work Phone: [facility] 02-07-2022 11:41-0400 Respiratory rate 20 /min Dr. Barak Tiwari Work Phone: [facility] 02-07-2022 11:41-0400 SaO2% (BldA) [Mass fraction] 95 % Dr. Barak Tiwari Work Phone: [facility] 02-07-2022 11:41-0400 Systolic blood pressure 185 mm[Hg] Dr. Barak Tiwari Work Phone: [facility] 02-01-2022 10:42-0400 Body height 154.9 cm Barak Tiwari MD Work Phone: [facility] 02-01-2022 10:42-0400 Body weight 102.06 kg Barak Tiwari MD Work Phone: [facility] 02-01-2022 10:42-0400 Diastolic blood pressure 100 mm[Hg] Barak Tiwari MD Work Phone: [facility] 02-01-2022 10:42-0400 Heart rate 67 /min Barak Tiwari MD Work Phone: [facility] 02-01-2022 10:42-0400 SaO2% (BldA) [Mass fraction] 95 % Barak Tiwari MD Work Phone: [facility] 02-01-2022 10:42-0400 Systolic blood pressure 164 mm[Hg] Barak Tiwari MD Work Phone: [facility] 01-30-2022 17:59-0400 Diastolic blood pressure 66 mm[Hg] Dr. Barak Tiwari Work Phone: [facility] 01-30-2022 17:59-0400 Heart rate 68 /min Dr. Barak Tiwari Work Phone: 2(468)840-885460 [address] 01-30-2022 17:59-0400 Respiratory rate 18 /min Dr. Barak Tiwari Work Phone: [facility] 01-30-2022 17:59-0400 SaO2% (BldA) [Mass fraction] 97 % Dr. Barak Tiwari Work Phone: [facility] 01-30-2022 17:59-0400 Systolic blood pressure 171 mm[Hg] Dr. Barak Tiwari Work Phone: 8(703)142-667960 [address] 01-30-2022 14:51-0400 Body height 165.[address] Barak Tiwari Work Phone: [facility] Work Phone: 01-30-2022 14:51-0400 Body mass index (BMI) [Ratio] 38.1 kg/m2 Dr. Barak Tiwari Work Phone: [facility] 01-30-2022 14:51-0400 Body temperature 97.6 [degF] Dr. Barak Tiwari Work Phone: [facility] 01-30-2022 14:51-0400 Body weight 103.[address] Barak Tiwari Work Phone: [facility] 01-28-2022 15:55-0400 Diastolic blood pressure 73 mm[Hg] Mi Nurse Work Phone: [facility] 01-28-2022 15:55-0400 Heart rate 67 /min Mi Nurse Work Phone: [facility] 01-28-2022 15:55-0400 Systolic blood pressure 130 mm[Hg] Mi Nurse Work Phone: [facility] 01-22-2022 09:26-0400 Body height 154.9 cm Barak Tiwari MD Work Phone: [facility] 01-22-2022 09:26-0400 Body weight 103.87 kg Barak Tiwari MD Work Phone: [facility] 01-22-2022 09:26-0400 Diastolic blood pressure 98 mm[Hg] Barak Tiwari MD Work Phone: [facility] 01-22-2022 09:26-0400 Heart rate 79 /min Barak Tiwari MD Work Phone: [facility] 01-22-2022 09:26-0400 SaO2% (BldA) [Mass fraction] 96 % Barak Tiwari MD Work Phone: [facility] 01-22-2022 09:26-0400 Systolic blood pressure 150 mm[Hg] Barak Tiwari MD Work Phone: [facility] 01-12-2022 11:02-0400 Heart rate 63 /min Dr. Barak Tiwari Work Phone: [facility] Work Phone: 01-12-2022 09:19-0400 Body temperature 97.7 [degF] Dr. Barak Tiwari Work Phone: [facility] Work Phone: 01-12-2022 09:19-0400 Diastolic blood pressure 82 mm[Hg] Dr. Barak Tiwari Work Phone: [facility] Work Phone: 01-12-2022 09:19-0400 Respiratory rate 18 /min Dr. Barak Tiwari Work Phone: [facility] Work Phone: 01-12-2022 09:19-0400 SaO2% (BldA) [Mass fraction] 97 % Dr. Barak Tiwari Work Phone: [facility] Work Phone: 01-12-2022 09:19-0400 Systolic blood pressure 153 mm[Hg] Dr. Barak Tiwari Work Phone: [facility] Work Phone: 01-12-2022 01:02-0400 Body height 165.[address] Barak Tiwari Work Phone: [facility] Work Phone: 01-12-2022 01:02-0400 Body mass index (BMI) [Ratio] 38.5 kg/m2 Dr. Barak Tiwari Work Phone: [facility] Work Phone: 01-12-2022 01:02-0400 Body weight 105.[address] Barak Tiwari Work Phone: [facility] Work Phone: 01-10-2022 21:10-0400 Inhaled oxygen flow rate 2 L/min Dr. Barak Tiwari Work Phone: [facility] Work Phone: 01-10-2022 18:13-0400 Body temperature 97.9 [degF] Dr. Barak Tiwari Work Phone: [facility] Work Phone: 01-10-2022 18:13-0400 Diastolic blood pressure 77 mm[Hg] Dr. Barak Tiwari Work Phone: [facility] Work Phone: 01-10-2022 18:13-0400 Heart rate 81 /min Dr. Barak Tiwari Work Phone: [facility] Work Phone: 01-10-2022 18:13-0400 Inhaled oxygen flow rate 2 L/min Dr. Barak Tiwari Work Phone: [facility] Work Phone: 01-10-2022 18:13-0400 Respiratory rate 22 /min Dr. Barak Tiwari Work Phone: [facility] Work Phone: 01-10-2022 18:13-0400 SaO2% (BldA) [Mass fraction] 97 % Dr. Barak Tiwari Work Phone: [facility] Work Phone: 01-10-2022 18:13-0400 Systolic blood pressure 176 mm[Hg] Dr. Barak Tiwari Work Phone: [facility] Work Phone: 01-10-2022 16:08-0400 Body height 165.[address] Barak Tiwari Work Phone: [facility] Work Phone: 01-10-2022 16:08-0400 Body mass index (BMI) [Ratio] 38.8 kg/m2 Dr. Barak Tiwari Work Phone: [facility] Work Phone: 01-10-2022 16:08-0400 Body weight 105.[address] Barak Tiwari Work Phone: [facility] Work Phone: 01-10-2022 10:33-0400 Body weight 104.78 kg Barak Tiwari MD Work Phone: [facility] 01-10-2022 10:33-0400 Diastolic blood pressure 82 mm[Hg] Barak Tiwari MD Work Phone: [facility] 01-10-2022 10:33-0400 Heart rate 76 /min Barak Tiwari MD Work Phone: [facility] 01-10-2022 10:33-0400 Systolic blood pressure 172 mm[Hg] Barak Tiwari MD Work Phone: [facility] 10-17-2021 14:49-0400 Body mass index (BMI) [Ratio] 38.7 kg/m2 Dr. Barak Tiwari Work Phone: [facility] Work Phone: 10-17-2021 14:49-0400 Body temperature 97.3 [degF] Dr. Barak Tiwari Work Phone: [facility] Work Phone: 10-17-2021 14:49-0400 Body weight 105.[address] Barak Tiwari Work Phone: [facility] Work Phone: 10-17-2021 14:49-0400 Diastolic blood pressure 80 mm[Hg] Dr. Barak Tiwari Work Phone: [facility] Work Phone: 10-17-2021 14:49-0400 Heart rate 81 /min Dr. Barak Tiwari Work Phone: [facility] Work Phone: 10-17-2021 14:49-0400 Respiratory rate 18 /min Dr. Barak Tiwari Work Phone: [facility] Work Phone: 10-17-2021 14:49-0400 SaO2% (BldA) [Mass fraction] 93 % Dr. Barka Tiwari Work Phone: [facility] Work Phone: 10-17-2021 14:49-0400 Systolic blood pressure 160 mm[Hg] Dr. Barak Tiwari Work Phone: [facility] Work Phone: 08-02-2021 13:03-0400 Diastolic blood pressure 78 mm[Hg] Mi Nurse Work Phone: [facility] 08-02-2021 13:03-0400 Heart rate 62 /min Mi Nurse Work Phone: [facility] 08-02-2021 13:03-0400 Systolic blood pressure 126 mm[Hg] Mi Nurse Work Phone: [facility] 11-27-2016 10:29-0400 BMI (Body Mass Index) 52.74 kg/m2 Baljeet Ferguson MD [facility] Work Phone: 11-27-2016 10:29-0400 Body Temperature 97.8 [degF] Baljeet Ferguson MD [facility] Work Phone: 11-27-2016 10:29-0400 BP Diastolic 74 mm[Hg] Baljeet Ferguson MD [facility] Work Phone: 11-27-2016 10:29-0400 BP Systolic 139 mm[Hg] Baljeet Ferguson MD [facility] Work Phone: 11-27-2016 10:29-0400 Height 157.48 cm Baljeet Ferguson MD [facility] Work Phone: 11-27-2016 10:29-0400 Pulse (Heart Rate) 94 /min Baljeet Ferguson MD [facility] Work Phone: 11-27-2016 10:29-0400 Respiratory Rate 20 /min Baljeet Ferguson MD [facility] Work Phone: 11-27-2016 10:29-0400 Weight 130.82 kg Baljeet Ferguson MD [facility] Work Phone: Encounters Encounter Date Encounter Type Care Provider Facility Start: 03-08-2025 End: 03-08-2025 ambulatory BARAK MELÉNDEZO Facility:[facility] Start: 03-08-2025 End: 03-08-2025 ambulatory BARAK MELÉNDEZO Facility:[facility] Start: 03-03-2025 End: 03-03-2025 ambulatory BARAK Beaver LINH Facility:[facility] Start: 02-23-2025 End: 02-23-2025 ambulatory BARAK Beaver LINH Facility:[facility] Start: 02-22-2025 End: 02-22-2025 ambulatory BARAK MELÉNDEZO Facility:[facility] Start: 02-21-2025 End: 02-21-2025 ambulatory BARAK MELÉNDEZO Facility:[facility] Start: 01-20-2025 End: 01-20-2025 ambulatory [facility] Facility:[facility] Start: 01-20-2025 End: 01-20-2025 ambulatory [facility] Facility:[facility] Start: 01-10-2025 End: 01-10-2025 Telephone encounter Barak Tiwari MD Work Phone: NOC Comment on above: Transition Of Care Start: 01-10-2025 End: 01-10-2025 ambulatory [facility] Facility:[facility] Start: 01-10-2025 End: 01-10-2025 Subsequent hospital visit by physician [facility] Work Phone: Radiology Comment on above: Bacterial pneumonia [J15.9] Start: 01-06-2025 End: 01-06-2025 Office outpatient visit 25 minutes Mariana Encarnacion APRN.VEHICLE AND EQUIPMENT CLEANER Work Phone: [facility] Comment on above: Chronic diastolic co ngestive heart failure (HCC) (Primary Dx); Obstructive lung disease (generalized) (HCC); Chronic hypoxemic respiratory failure (HCC); Bacterial pneumonia Start: 01-06-2025 End: 01-06-2025 ambulatory [facility] Facility:[facility] Start: 01-05-2025 End: 01-05-2025 Refill Barak Tiwari MD Work Phone: [facility] Comment on above: Refill Request (Plea se see Rx notes) diabetic supplies Start: 12-29-2024 End: 12-29-2024 Telephone encounter Barak Tiwari MD Work Phone: NOC Comment on above: Transition Of Care Start: 12-28-2024 End: 12-28-2024 Telephone encounter Barak Tiwari MD Work Phone: NOC Comment on above: Transition Of Care Start: 12-27-2024 End: 12-29-2024 Telephone encounter Aleida Chase RN NOC Comment on above: Transition Of Care ( Relate care discharge follow up-TCM-no contact-left vm) Start: 12-19-2024 End: 12-27-2024 Follow-up encounter Barak Tiwari MD Work Phone: [facility] Start: 12-16-2024 End: 12-21-2024 Evaluation and management of inpatient RACHEL ANGEL Facility:[id number] Start: 12-16-2024 End: 12-16-2024 Emergency department patient visit BARAK TIWARI Facility:[facility] Start: 12-16-2024 End: 12-16-2024 Telephone encounter Barak Tiwari MD Work Phone: [facility] Comment on above: Results Results (Elevated d dimer) Start: 12-16-2024 End: 12-16-2024 ambulatory [facility] Facility:[facility] Start: 12-15-2024 End: 12-15-2024 ambulatory [facility] Facility:[facility] Start: 12-15-2024 End: 12-15-2024 Subsequent hospital visit by physician [facility] Comment on above: Encounter for screen ing mammogram for breast cancer [Z12.31] Start: 12-01-2024 End: 12-16-2024 Telephone encounter Barak Tiwari MD Work Phone: [facility] Comment on above: Results Start: 11-30-2024 End: 11-30-2024 ambulatory BARAK Saranya [facility] Facility:[facility] Start: 11-30-2024 End: 11-30-2024 ambulatory [facility] Facility:[facility] Start: 10-20-2024 End: 10-20-2024 Office outpatient visit 15 minutes Mariana A Suppan IP ATTORNEY.VEHICLE AND EQUIPMENT CLEANER Work Phone: [facility] Comment on above: Bacterial pneumonia (Primary Dx) Start: 10-20-2024 End: 10-20-2024 ambulatory [facility] Facility:[facility] Start: 10-06-2024 End: 10-06-2024 Office outpatient visit 15 minutes Mariana A Suppan IP ATTORNEY.VEHICLE AND EQUIPMENT CLEANER Work Phone: [facility] Comment on above: Pneumonia of both lo wer lobes due to other aerobic gram- negative bacteria (HCC) (Primary Dx) Start: 10-06-2024 End: 10-06-2024 ambulatory [facility] Facility:[facility] Start: 09-27-2024 End: 09-27-2024 Refill Barak Tiwari MD Work Phone: [facility] Comment on above: Refill Request Start: 09-21-2024 End: 09-21-2024 ambulatory Barak Tiwari MD Work Phone: [facility] Comment on above: Allied Health Visit (Medication Adherence Outreach ) Start: 08-22-2024 End: 08-22-2024 ambulatory BARAK Beaver [facility] Administration Start: 08-05-2024 End: 08-05-2024 ambulatory Barak Tiwari MD Work Phone: [facility] Comment on above: Allied Health Visit (Medication Adherence Outreach ) Start: 07-28-2024 End: 07-28-2024 ambulatory [facility] Facility:[facility] Start: 07-28-2024 End: 07-28-2024 Patient encounter procedure Rachel Coleman Work Phone: Podiatry Comment on above: Type 2 diabetes anabelle itus with diabetic neuropathy, with long- term current use of insulin (HCC) (Primary Dx); Lymphedema; Porokeratosis Start: 07-04-2024 End: 07-04-2024 ambulatory Barak Tiwari MD Work Phone: [facility] Comment on above: Allied Health Visit (Medication Adherence Outreach/) Start: 06-17-2024 End: 06-17-2024 ambulatory Mraiana Encarnacion IP ATTORNEY.VEHICLE AND EQUIPMENT CLEANER Work Phone: [facility] Comment on above: Arm Pain Start: 06-14-2024 End: 08-14-2024 Follow-up encounter Mariana Encarnacion IP ATTORNEY.VEHICLE AND EQUIPMENT CLEANER Work Phone: [facility] Start: 06-10-2024 End: 06-10-2024 Telephone encounter Mariana Encarnacion IP ATTORNEY.VEHICLE AND EQUIPMENT CLEANER Work Phone: [facility] Start: 06-09-2024 End: 06-09-2024 [facility] Start: 06-09-2024 End: 06-09-2024 ambulatory [facility] Facility:[facility] Start: 06-09-2024 End: 06-09-2024 Patient encounter procedure Mariana Encarnacion IP ATTORNEY.VEHICLE AND EQUIPMENT CLEANER Work Phone: [facility] Start: 06-09-2024 End: 06-09-2024 Periodic preventive med est patient 40-64yrs Mariana Encarnacion APRN.VEHICLE AND EQUIPMENT CLEANER Work Phone: [facility] [place] Comment on above: Type 2 diabetes anabelle itus with diabetic neuropathy, with long- term current use of insulin (HCC) (Primary Dx); Headache, unspecified headache type; Migraine without aura and without status migrainosus, not intractable; Essential hypertension, benign; Pure hypercholesterolemia; Chronic diastolic congestive heart failure (HCC); Aortic valve insufficiency, etiology of cardiac valve disease unspecified; Thyroid cancer ([facility]); Medicare annual wellness visit, subsequent; Memory changes; Cognitive changes; Seasonal allergic rhinitis, unspecified trigger Start: 06-03-2024 End: 06-03-2024 Telephone encounter Barak Tiwari MD Work Phone: [address] [place] [address] Comment on above: Medication Problem Start: 05-31-2024 End: 06-01-2024 Telephone encounter Barak Tiwari MD Work Phone: [facility] Comment on above: requesting medicatio n Start: 05-30-2024 End: 05-31-2024 Telephone encounter Barak Tiwari MD Work Phone: [facility] [place] Comment on above: Forms Start: 05-09-2024 End: 05-09-2024 ambulatory [facility] [place] Start: 05-09-2024 End: 05-09-2024 Patient encounter procedure Peyton Rasheed MA [facility] Comment on above: Population Health Na vigation Outreach ([employer] [facility] Start: 05-02-2024 End: 05-02-2024 Refill Barak Tiwari MD Work Phone: [facility] [place] Comment on above: Refill Request Start: 04-25-2024 End: 04-25-2024 Office outpatient visit 15 minutes July Cedillo APRN.VEHICLE AND EQUIPMENT CLEANER Work Phone: [facility] [place] Comment on above: Abscess (Primary Dx) ; Cellulitis of skin Start: 04-25-2024 End: 04-25-2024 ambulatory BARAK TIWARI Facility:[facility] Start: 04-22-2024 End: 04-22-2024 Emergency department patient visit Baljeet Alvarez Facility:[facility] Start: 04-14-2024 End: 04-14-2024 Refill Barak Tiwari MD Work Phone: [facility] Comment on above: Refill Request Pain (upper Arm); Ar m Pain Start: 03-07-2024 End: 03-07-2024 ambulatory Patty Braga MA [facility] [place] Start: 03-07-2024 End: 03-07-2024 Patient encounter procedure Patty Braga MA [facility] Comment on above: Population Health Na vigation Outreach ([employer],[facility] / /) Start: 02-17-2024 End: 02-17-2024 Patient encounter procedure Oziel Ольга BEYVEHICLE AND EQUIPMENT CLEANER Work Phone: URO/Gynecology Comment on above: Post-operative state (Primary Dx) Start: 02-08-2024 End: 02-08-2024 Telephone encounter Florencia Lundy MD Work Phone: [facility]/Gynecology Comment on above: Refill Request Start: 02-04-2024 End: 02-04-2024 Telephone encounter Florencia Lundy MD Work Phone: [facility]/Gynecology Comment on above: Post hysterectomy sy mptoms Start: 02-04-2024 End: 02-04-2024 ambulatory Nurse Intm/Famp Triage [facility] Work Phone: Nurse Phone Triage Comment on above: Vaginal Problem Start: 02-03-2024 End: 03-01-2024 ambulatory Barak Tiwari MD Work Phone: URO/Gynecology Comment on above: Post-operative state (Primary Dx) Refill Request Start: 02-03-2024 End: 02-03-2024 Telemedicine consultation with patient Uro Mapping Supervisor Nurse Araceli Gomez Work Phone: URO/Gynecology Start: 01-26-2024 Encounter for other preprocedural examination [facility] Start: 01-26-2024 End: 01-26-2024 Admission to establishment [place] [place] Acc 2 Pre Surgical Testing Start: 01-26-2024 End: 11-30-2024 Patient encounter status Pst 2 Trip penny Work Phone: Start: 01-26-2024 End: 01-26-2024 ambulatory EDNA QURES[facility] Pre Surgical Testing Comment on above: Pre-op testing (Prim nessa Dx); Chronic diastolic congestive heart failure (HCC); Type 2 diabetes mellitus with diabetic neuropathy, with long-term current use of insulin (HCC); Chronic obstructive pulmonary disease, unspecified COPD type (HCC); Uterine prolapse; Aortic valve insufficiency, etiology of cardiac valve disease unspecified; Essential hypertension, benign; Other hyperlipidemia; Pulmonary hypertension (HCC); Gastroesophageal reflux disease without esophagitis; Other iron deficiency anemia Start: 01-18-2024 End: 01-18-2024 ambulatory [facility] [place] Work Phone: URO/Gynecology Comment on above: Encounter for educat ion (Primary Dx) Start: 01-18-2024 End: 01-18-2024 Telemedicine consultation with patient Uro Mapping Supervisor Nurse Araceli Gomez Work Phone: URO/Gynecology Start: 01-13-2024 End: 01-18-2024 Telephone encounter Florencia Lundy MD Work Phone: [facility]/Gynecology Start: 12-31-2023 End: 12-31-2023 Telephone encounter Florencia Lundy MD Work Phone: [facility] Comment on above: Future Appointment Start: 12-29-2023 End: 12-29-2023 Office outpatient visit 15 minutes Florencia Lundy MD Work Phone: URO/Gynecology Comment on above: Procedure (UDS/Cysto ) Start: 12-29-2023 End: 12-29-2023 Patient encounter status Florencia Lundy MD Work Phone: [facility] Start: 12-18-2023 End: 12-18-2023 Telephone encounter Barak Tiwari MD Work Phone: [facility] Comment on above: Patient Question Start: 12-03-2023 End: 12-03-2023 Office consultation new/estab patient 60 min Florencia Lundy MD Work Phone: URO/Gynecology Comment on above: Uterine prolapse (Pr imary Dx); MORENO (stress urinary incontinence, female); Asymptomatic microscopic hematuria Start: 12-02-2023 Documentation procedure Mammog juan Coordinator [facility] Department Start: 12-02-2023 Letter encounter Mammography Coordinator [facility] Start: 12-02-2023 Telephone encounter Barak Tiwari MD Work Phone: Family Medicine [place] Comment on above: Results Start: 12-02-2023 End: 12-02-2023 Subsequent hospital visit by physician Screen Mammo [facility] Comment on above: Encounter for screen ing mammogram for breast cancer [Z12.31] Start: 11-26-2023 Telephone encounter Barak Tiwari MD Work Phone: [facility] [place] Comment on above: Medication Problem Start: 11-25-2023 End: 11-25-2023 Patient encounter procedure Barak Tiwari MD Work Phone: [facility] [place] Comment on above: Type 2 diabetes anabelle itus with diabetic neuropathy, with long- term current use of insulin (HCC) (Primary Dx); Neuropathy; Essential hypertension, benign; Other hyperlipidemia; Chronic diastolic congestive heart failure (HCC); Aortic valve insufficiency, etiology of cardiac valve disease unspecified; Obstructive lung disease (generalized) (HCC); Chronic hypoxemic respiratory failure (HCC); Chronic obstructive pulmonary disease, unspecified COPD type (HCC); CANCER M->Z THYROID; Gastroesophageal reflux disease without esophagitis; Anemia, unspecified type; Moderate episode of recurrent major depressive disorder (HCC); Lymphedema; Morbid obesity with BMI of 40.0-44.9, adult ([facility]); Ureteral stone; Encounter for screening examination for other mental health and behavioral disorders; Obesity hypoventilation syndrome ([facility]); History of pulmonary embolism Start: 11-25-2023 ambulatory Barak Tiwari MD Work Phone: Internal Medicine [place] Start: 11-23-2023 Telephone encounter Barak Tiwari MD Work Phone: [facility] [place] Comment on above: Medication Request Start: 11-23-2023 End: 11-23-2023 Patient encounter procedure Stephanie Montoya PA-C Work Phone: [facility] Comment on above: Uterovaginal prolaps e (Primary Dx); Cystocele, midline; Urinary incontinence, unspecified type; Atrophic vaginitis; Atypical squamous cells of undetermined significance (ASCUS) on Papanicolaou smear of cervix; HPV (human papilloma virus) infection; LGSIL on Pap smear of cervix Start: 11-18-2023 Refill Barak Tiwari MD Work Phone: [facility] Comment on above: Refill Request Start: 11-18-2023 End: 11-18-2023 ambulatory [facility] Facility:[facility] Start: 11-12-2023 Telephone encounter Oziel hopson APRN.VEHICLE AND EQUIPMENT CLEANER Work Phone: OB/Gynecology Comment on above: Patient Question Start: 11-04-2023 Telephone encounter Barak Tiwari MD Work Phone: [facility] Comment on above: requesting m edications Refill Request Start: 10-15-2023 End: 10-15-2023 ambulatory [facility] Facility:[facility] Start: 10-01-2023 End: 10-01-2023 ambulatory [facility] Facility:[facility] Start: 09-24-2023 End: 09-24-2023 ambulatory [facility] Facility:[facility] Start: 09-17-2023 Telephone encounter Mariana Encarnacion APRN.REPAIR TECHNICIAN Work Phone: [facility] Comment on above: Results Start: 09-11-2023 Telephone encounter July liang APRN.VEHICLE AND EQUIPMENT CLEANER Work Phone: [facility] Comment on above: Results Start: 09-11-2023 End: 09-11-2023 Patient encounter procedure Patty Roman MD Work Phone: OB/Gynecology Comment on above: ASCUS with positive high risk HPV cervical (Primary Dx) Start: 09-09-2023 Telephone encounter Barak Tiwari MD Work Phone: [facility] Comment on above: Results Start: 09-08-2023 End: 09-08-2023 Office outpatient visit 25 minutes July Cedillo APRN.CNP Work Phone: [facility] Comment on above: Pain of right lower extremity (Primary Dx); Anemia, unspecified type; Type 2 diabetes mellitus without complication, with long-term current use of insulin ([facility]) Start: 09-07-2023 End: 09-07-2023 ambulatory Barak Tiwari Facility:[facility] Start: 09-03-2023 Telephone encounter Oziel hopson APRN.VEHICLE AND EQUIPMENT CLEANER Work Phone: OB/Gynecology Comment on above: Results Start: 09-03-2023 End: 09-03-2023 ambulatory [facility] Facility:[facility] Start: 08-31-2023 End: 08-31-2023 Refill Barak Tiwari MD Work Phone: [facility] Comment on above: Refill Request Pelvic pain in femal e [R10.2] Start: 08-27-2023 Telephone encounter Oziel hopson APRN.VEHICLE AND EQUIPMENT CLEANER Work Phone: OB/Gynecology Comment on above: Abnormal Pap Start: 08-15-2023 Telephone encounter Oziel hopson APRN.VEHICLE AND EQUIPMENT CLEANER Work Phone: OB/Gynecology Comment on above: Results Start: 08-13-2023 End: 08-13-2023 Patient encounter procedure Oziel Lang APRN.VEHICLE AND EQUIPMENT CLEANER Work Phone: OB/Gynecology Comment on above: Complete uterovagina l prolapse (Primary Dx); Dysuria; Cervical cancer screening; Pelvic pain in female; Hematuria, unspecified type; Special screening examination for human papillomavirus (HPV); Urinary frequency; Morbid obesity with BMI of 40.0-44.9, adult ([facility]) Start: 08-13-2023 Telephone encounter Oziel hopson APRN.VEHICLE AND EQUIPMENT CLEANER Work Phone: OB/Gynecology Comment on above: Appointment; Results Start: 06-11-2023 Telephone encounter Nerissa miose APRN.VEHICLE AND EQUIPMENT CLEANER Work Phone: OB/Gynecology Comment on above: Results Start: 06-08-2023 End: 06-08-2023 Patient encounter procedure Nerissa Hassan APRN.VEHICLE AND EQUIPMENT CLEANER Work Phone: OB/Gynecology Comment on above: Dysuria (Primary Dx) Start: 06-04-2023 Telephone encounter Barak Tiwari MD Work Phone: Pulmonology [facility] Comment on above: Results Start: 06-03-2023 Refill Barak Tiwari MD Work Phone: Family Medicine [place] Comment on above: Refill Request Start: 03-31-2023 ambulatory Kati Sunita Mcnamara [place] [facility] [place] Comment on above: Population Health Na vigation Outreach ([employer] ) Start: 03-17-2023 ambulatory Kati Sunita Mcnamara [place] [facility] [place] Comment on above: Population Health Na vigation Outreach ([employer] ) Start: 01-05-2023 ambulatory Kati Sunita Mcnamara [place] [facility] [place] Comment on above: Population Health Na vigation Outreach ([employer] G[employer] ) Start: 01-01-2023 Telephone encounter Barak Tiwari MD Work Phone: Family Medicine [place] Comment on above: Issue with Oxygen Ap proval Start: 12-17-2022 Refill Barak Tiwari MD Work Phone: [facility] [place] Comment on above: Refill Request Start: 12-05-2022 Refill Barak Tiwari MD Work Phone: [facility] [place] Comment on above: Refill Request Start: 11-24-2022 Telephone encounter Barak Tiwari MD Work Phone: [facility] [place] Comment on above: Insurance Authorizat ion Start: 11-06-2022 Refill Barak Tiwari MD Work Phone: [facility] [place] Comment on above: Refill Request Start: 11-04-2022 Telephone encounter Barak Tiwari MD Work Phone: Family Medicine [place] Comment on above: Medication Request Start: 10-24-2022 End: 10-24-2022 ambulatory Barak Tiwari MD Work Phone: Family Medicine [place] Comment on above: Diarrhea Start: 10-24-2022 Non-patient / Non-visit Dr. Geraldine Tiwari Work Phone: [facility] Start: 10-24-2022 End: 10-24-[address] Barak Tiwari Work [facility] Work Phone: Start: 10-20-2022 Telephone encounter Jaquan Latif PA-C Work Phone: [facility] Comment on above: Results Start: 10-16-2022 Documentation procedure Mammog juan Coordinator [facility] Start: 10-16-2022 Letter encounter Mammography Coordinator [facility] Start: 10-15-2022 End: 10-15-2022 Subsequent hospital visit by physician Screen Mammo [facility] M[facility] Comment on above: Screening breast exa mination [Z12.39] Start: 10-08-2022 Telephone encounter Barak Tiwari MD Work Phone: [facility] Comment on above: Patient Update Start: 10-07-2022 End: 10-07-[address] Barak Tiwari Work Phone: [facility] Work Phone: Start: 10-01-2022 Telephone encounter Barak Tiwari MD Work Phone: [facility] Comment on above: Results Start: 09-25-2022 Telephone encounter Barak Tiwari MD Work Phone: [facility] Comment on above: Patient Update Start: 09-24-2022 Non-patient / Non-visit Dr. Geraldine Tiwari Work Phone: [facility] Work Phone: Start: 09-23-2022 Refill Barak Tiwari MD Work Phone: [facility] Comment on above: Refill Request Start: 09-01-2022 End: 09-01-2022 Patient encounter procedure Barak Tiwari MD Work Phone: [facility] Comment on above: Cellulitis of skin ( Primary Dx); Lymphedema; Venous stasis dermatitis of both lower extremities Start: 08-30-2022 End: 08-30-2022 Patient encounter procedure Barak Tiwari MD Work Phone: [facility] Comment on above: Lymphedema (Primary Dx); Congestive heart failure, unspecified HF chronicity, unspecified heart failure type (HCC); Cellulitis of skin; Venous stasis dermatitis of both lower extremities; Anemia, unspecified type; Hyponatremia Start: 08-27-2022 Non-patient / Non-visit Dr. Geraldine Tiwari Work Phone: [facility] Start: 08-27-2022 ambulatory Shantel [place] [facility] Comment on above: Population Health Na vigation Outreach ([employer] care gap) Start: 08-26-2022 Non-patient / Non-visit Dr. Geraldine Tiwari Work Phone: [facility] Start: 08-26-2022 End: 08-26-[address] Barak Tiwari Work Phone: [facility] Work Phone: Start: 08-26-2022 End: 08-26-[address] Barak Tiwari Work Phone: [facility]-Cardiovascula r Services Start: 08-19-2022 Telephone encounter Barak Tiwari MD Work Phone: [facility] Comment on above: Patient Update Start: 08-18-2022 End: 08-18-2022 Patient encounter procedure Patty Mccloud PA-C Work Phone: Pulmonary Medicine Comment on above: Obstructive lung dis ease (generalized) (HCC) (Primary Dx); Chronic respiratory failure with hypoxia (HCC); Morbid obesity (HCC) Start: 08-18-2022 Telephone encounter Barak Tiwari MD Work Phone: [facility] Comment on above: Results Start: 08-06-2022 Telephone encounter Barak Tiwari MD Work Phone: [facility] Comment on above: Results Start: 07-22-2022 Telephone encounter Barak Tiwari MD Work Phone: [facility] Comment on above: Results Start: 07-22-2022 End: 07-22-[address] Barak Tiwari Work Phone: [facility] Work Phone: Start: 07-22-2022 End: 07-22-[address] Barak Tiwari Work Phone: [facility]-Laboratory Start: 07-22-2022 End: 07-22-[address] Barak Tiwari Work Phone: [facility] [facility] Start: 07-18-2022 End: 07-18-2022 Patient encounter procedure Barak Tiwari MD Work Phone: [facility] Comment on above: Type 2 diabetes anabelle itus with diabetic neuropathy, with long- term current use of insulin (HCC) (Primary Dx); Chronic diastolic congestive heart failure (HCC); Essential hypertension, benign; Other chronic pulmonary embolism without acute cor pulmonale (HCC); Other hyperlipidemia; Obstructive lung disease (generalized) (HCC); Chronic hypoxemic respiratory failure (HCC); CANCER M->Z THYROID; Lymphedema; Screening breast examination; Iron deficiency anemia due to chronic blood loss; Screening for HIV (human immunodeficiency virus) Start: 07-07-2022 Refill Barak Tiwari MD Work Phone: [facility] Comment on above: Refill Request Start: 06-30-2022 Telephone encounter Barak Tiwari MD Work Phone: [facility] Comment on above: Results Start: 06-30-2022 End: 06-30-2022 ambulatory Pulm Lab [facility] Work Phone: [facility] Comment on above: Spirometry Start: 06-30-2022 End: 06-30-2022 Patient encounter procedure [facility] Work Phone: [facility] Start: 06-24-2022 Telephone encounter Chrissy Dowell MD Work Phone: Pulmonary Medicine Comment on above: Unable to afford oxy gen and wants to RTW without restrictio Start: 06-23-2022 Telephone encounter Barak Tiwari MD Work Phone: [facility] [place] Comment on above: Results Patient Question Start: 06-23-2022 End: 06-23-2022 Nursing evaluation of patient and report Nurse Card Admin [facility] Work Phone: Cardiology Comment on above: Screening for ischem ic heart disease (Primary Dx) Start: 06-23-2022 End: 06-23-2022 Subsequent hospital visit by physician Injection Nm [facility] [employer] Work Phone: Nuclear Medicine Start: 06-20-2022 End: 06-20-2022 ambulatory Pulm Lab [facility] Work Phone: PUL[facility] LAB [facility] Comment on above: Spirometry Start: 06-20-2022 End: 06-20-2022 Patient encounter procedure Pulm Lab [facility] Work Phone: [facility] Comment on above: Obstructive lung dis ease (generalized) (HCC) (Primary Dx); Chronic hypoxemic respiratory failure (HCC); Morbid obesity (HCC) Start: 06-19-2022 Telephone encounter Nurse Card Admin [facility] [employer] Work Phone: Cardiology Comment on above: Appointment (Stress Test instructions) Start: 06-09-2022 Telephone encounter Barak Tiwari MD Work Phone: Family [facility] [place] Comment on above: Order Request Start: 06-06-2022 End: 06-06-2022 Patient encounter procedure Barak Tiwari MD Work Phone: [facility] [place] Comment on above: Congestive heart rosenda lure, unspecified HF chronicity, unspecified heart failure type (HCC) (Primary Dx); Chronic obstructive pulmonary disease, unspecified COPD type (HCC); Iron deficiency anemia, unspecified iron deficiency anemia type; Type 2 diabetes mellitus with diabetic neuropathy, with long-term current use of insulin (HCC); Lymphedema; Hypoxia; Cellulitis of left lower extremity; Gastrointestinal hemorrhage, unspecified gastrointestinal hemorrhage type Start: 05-29-2022 End: 05-29-[address] Barak Tiwari Work Phone: [facility] Start: 05-24-2022 Telephone encounter Barak Tiwari MD Work Phone: [facility] Comment on above: Results Start: 05-23-2022 End: 05-23-2022 Patient encounter procedure Barak Tiwari MD Work Phone: [facility] Comment on above: Gastrointestinal hem orrhage, unspecified gastrointestinal hemorrhage type (Primary Dx); Congestive heart failure, unspecified HF chronicity, unspecified heart failure type (HCC); Morbid obesity with BMI of 45.0-49.9, adult (HCC); Type 2 diabetes mellitus with diabetic neuropathy, with long-term current use of insulin (HCC); Moderate episode of recurrent major depressive disorder (HCC); Lymphedema; Hypoxia; Morbid obesity with BMI of 40.0-44.9, adult (HCC); Cellulitis of left leg; Iron deficiency anemia due to chronic blood loss; History of pulmonary embolism Start: 05-16-2022 Telephone encounter Barak Tiwari MD Work Phone: [facility] Comment on above: Patient Question Start: 05-16-2022 Non-patient / Non-visit Dr. Geraldine Tiwari Work Phone: [facility] Start: 05-15-2022 Non-patient / Non-visit Dr. Geraldine Tiwari Work Phone: [facility] Start: 05-15-2022 End: 05-16-2022 Evaluation and management of inpatient Dr. Barak Tiwari Work Phone: [facility]-Medical Surgical 3 Start: 05-15-2022 End: 05-15-2022 Non-patient / Non-visit Dr. Barak Tiwari Work Phone: [facility] Start: 05-14-2022 Non-patient / Non-visit Dr. Geraldine Tiwari Work Phone: [facility] Start: 05-14-2022 Evaluation and manag ement of inpatient [facility] 3 Start: 05-14-2022 Non-patient / Non-visit Dr. Geraldine Tiwari Work Phone: [facility] [facility] Start: 05-14-2022 observation encounter [facility] Work Phone: Start: 05-13-2022 End: 05-13-2022 Patient encounter procedure Jaquan Latif PA-C Work Phone: [facility] Comment on above: Lymphangitis, acute, lower leg (Primary Dx); Cellulitis of left lower extremity; SHEIKH (dyspnea on exertion) Start: 04-14-2022 End: 04-14-2022 Nursing evaluation of patient and report Nurse Card Admin [facility] Work Phone: Cardiology Comment on above: SOB (shortness of br eath); Chest discomfort Start: 04-09-2022 Telephone encounter Nurse Card Admin [facility] Work Phone: Cardiology Comment on above: Appointment (instruc tions) Start: 04-04-2022 Refill Barak Tiwari MD Work Phone: [facility] Comment on above: Refill Request Start: 03-19-2022 End: 03-19-2022 Patient encounter procedure Barak Tiwari MD Work Phone: [facility] Comment on above: Bacterial pneumonia (Primary Dx); Type 2 diabetes mellitus with diabetic neuropathy, with long-term current use of insulin (HCC); Essential hypertension, benign; Other hyperlipidemia Start: 03-17-2022 Telephone encounter Barak Tiwari MD Work Phone: [facility] Comment on above: Results Start: 03-15-2022 End: 03-15-2022 Subsequent hospital visit by physician [facility] Work Phone: Radiology Comment on above: Bronchitis [J40] Start: 03-15-2022 End: 03-15-2022 Patient encounter procedure Barak Tiwari MD Work Phone: [facility] Comment on above: Bronchitis (Primary Dx); Essential hypertension, benign; Type 2 diabetes mellitus with diabetic neuropathy, with long-term current use of insulin (HCC); Anemia, unspecified type; Gastroesophageal reflux disease without esophagitis; Type 2 diabetes mellitus without complication, with long-term current use of insulin (HCC) Start: 02-25-2022 End: 02-25-2022 Office outpatient visit 15 minutes July Cedillo APRN.CNP Work Phone: [facility] Comment on above: Acute non-recurrent maxillary sinusitis (Primary Dx) Start: 02-07-2022 Telephone encounter Barak Tiwari MD Work Phone: [facility] Comment on above: Question Start: 02-07-2022 End: 02-07-2022 Emergency department patient visit Dr. Barak [facility]wari [facility] Start: 02-03-2022 Telephone encounter Barak Tiwari MD Work Phone: [facility] Comment on above: Results Start: 02-01-2022 End: 02-01-2022 Patient encounter procedure Barak Tiwari MD Work Phone: [facility] Comment on above: SOB (shortness of br eath) (Primary Dx); Anemia, unspecified type; Primary hypertension Start: 01-30-2022 End: 01-30-2022 Emergency department patient visit Dr. Barak Tiwari [facility] Start: 01-28-2022 End: 01-28-2022 Nursing evaluation of patient and report Mi Nurse Work Phone: [facility] Comment on above: Essential hypertensi on, benign (Primary Dx) Start: 01-28-2022 Telephone encounter Barak Tiwari MD Work Phone: [facility] Comment on above: Blood Pressure Check Start: 01-22-2022 End: 01-22-2022 Patient encounter procedure Barak Tiwari MD Work Phone: [facility] Comment on above: Iron deficiency anem ia, unspecified iron deficiency anemia type (Primary Dx); Encounter for immunization; SOB (shortness of breath); Type 2 diabetes mellitus with diabetic neuropathy, with long-term current use of insulin (HCC); Essential hypertension, benign Start: 01-13-2022 Telephone encounter Barak Tiwari MD Work Phone: [facility] Comment on above: Results Start: 01-12-2022 Non-patient / Non-visit Dr. Geraldine Tiwari Work Phone: [facility] Start: 01-12-2022 Non-patient / Non-visit Dr. Geraldine Tiwari Work Phone: [facility] Start: 01-11-2022 End: 01-12-2022 Non-patient / Non-visit Dr. Barak Tiwari Work Phone: [facility] Start: 01-10-2022 Non-patient / Non-visit Dr. Geraldine Tiwari Work Phone: [facility] Start: 01-10-2022 End: 01-12-2022 Evaluation and management of inpatient Dr. Barak Tiwari Work Phone: [facility] Start: 01-10-2022 Telephone encounter Barak Tiwari MD Work Phone: [facility] Comment on above: Critical Results Start: 01-10-2022 End: 01-10-[address] Barak Tiwari Work Phone: [facility] Work Phone: Start: 01-10-2022 End: 01-10-[address] Barak Tiwari Work Phone: [facility]Labor[facility], Specimen Start: 01-10-2022 End: 01-10-2022 Patient encounter procedure Barak Tiwari MD Work Phone: [facility] Comment on above: Type 2 diabetes anabelle itus with diabetic neuropathy, with long- term current use of insulin (HCC) (Primary Dx); Essential hypertension, benign; Anemia, unspecified type; Other hyperlipidemia; Other chronic pulmonary embolism without acute cor pulmonale (HCC); CANCER M->Z THYROID; Lymphedema; SOB (shortness of breath); Chest discomfort; Screening for colon cancer Start: 01-01-2022 ambulatory Ailyn Yousif [facility] Comment on above: Population Health Na vigation Outreach ([facility] care gaps) Start: 12-17-2021 ambulatory Barak Tiwari MD Work Phone: [facility] Comment on above: Nurse Triage Call; m otion sickness Start: 11-13-2021 Refill Barak Tiwari MD Work Phone: [facility] Comment on above: Refill Request Start: 10-17-2021 End: 10-17-[address] Barak Tiwari Work Phone: [facility] Start: 10-15-2021 Refill Barak Tiwari MD Work Phone: [facility] Comment on above: Refill Request Start: 09-05-2021 ambulatory Barak Tiwari MD Work Phone: [facility] Comment on above: Breathing Problem Start: 08-20-2021 Telephone encounter Barak Tiwari MD Work Phone: [facility] Comment on above: New Rx Request Start: 08-05-2021 End: 08-05-2021 Patient encounter procedure [facility] Start: 08-02-2021 Telephone encounter Barak Tiwari MD Work Phone: [facility] Comment on above: Blood Pressure Check Start: 08-02-2021 End: 08-02-2021 Nursing evaluation of patient and report Mi Nurse Work Phone: [facility] Comment on above: Essential hypertensi on, benign (Primary Dx) Start: 08-06-2020 End: 08-06-2020 Subsequent hospital visit by physician [facility] Work Phone: Radiology Comment on above: Left wrist pain [M25 .532] Start: 02-03-2017 End: 02-04-2017 [facility] Procedures Date Procedure Procedure Detail Performing Clinician Start: 12-15-2024 Echocardiography BARAK TIWARI Start: 12-29-2023 End: 12-29-2023 Urnls dip stick/tablet rgnt auto w/o microscopy Florencia Lundy MD Work Phone: Start: 12-02-2023 Screening digital breast tomosynthesis bi Bulk Order Provider Start: 08-13-2023 BACTERIAL VAGINOSIS NAAT Oziel Lang IP ATTORNEY.VEHICLE AND EQUIPMENT CLEANER Work Phone: Start: 08-13-2023 Iadna trichomonas vaginalis amplified probe tech Oziel Lang IP ATTORNEY.VEHICLE AND EQUIPMENT CLEANER Work Phone: Start: 08-13-2023 Urnls dip stick/tablet rgnt auto w/o microscopy Oziel Lang IP ATTORNEY.VEHICLE AND EQUIPMENT CLEANER Work Phone: Start: 06-08-2023 Urnls dip stick/tablet rgnt auto w/o microscopy Nerissa Hassan IP ATTORNEY.VEHICLE AND EQUIPMENT CLEANER Work Phone: Start: 10-15-2022 End: 10-15-2022 Mammography Barak Tiwari MD Work Phone: Start: 06-30-2022 Noninvasive ear/pulse oximetry multiple deter Barak Tiwari MD Work Phone: Start: 06-20-2022 Brncdilat rspse spmtry pre&post-brncdilat admn Chrissy Dowell MD Work Phone: Start: 05-15-[address] Barak ceja Work Phone: Start: 05-14-2022 Plain chest X-ray Start: 04-14-2022 Cv strs tst xers&/or rx cont ecg trcg only Barak Tiwari MD Work Phone: Start: 03-15-2022 Radiologic exam chest 2 views Barak Tiwari MD Work Phone: Start: 01-30-2022 Plain chest X-ray Dr. Barak Tiwari Work Phone: Start: 01-22-2022 INFLUENZA VACCINE QUADRIVALENT 6 MO - 64 YRS IM Barak Tiwari MD Work Phone: Start: 01-12-2022 End: 01-12-[address] Barak Tiwari Work Phone: Start: 01-12-2022 Plain chest X-ray Dr. Barak Tiwari Work Phone: Start: 01-11-2022 Plain chest X-ray Dr. Barak Tiwari Work Phone: Start: 01-10-2022 CT angiography of chest with contrast Dr. Barak Tiwari Work Phone: Start: 01-10-2022 D-DIMER Barak Tiwari MD Work Phone: Start: 07-12-2021 Mammography Mi Nurse Work Phone: Start: 08-06-2020 Radex wrist complete minimum 3 views Jodie CONKLINC Work Phone: Start: 10-26-2019 History of cholecystectomy History of laparoscopic cholecystectomy SARS-CoV-2 & FLU Antigen (Rapid) Viral antigen assay Dr. Sarmad Tiwari Work Phone: Viral antigen assay Plan of Treatment Date Care Activity Detail Author Start: 01-13-2032 Colonoscopy COLONOSCOPY [facility] Start: 01-13-2032 COLORECTAL CANCER SCREENING COLORECTAL CANCER SCREENING [facility] Start: 01-13-2032 Screening for malignant neoplasm of colon [facility] Start: 12-09-2031 PNEUMOCOCCAL (3 - PPSV23 if available, else PCV20) PNEUMOCOCCAL (3 - PPSV23 if available, else PCV20) [facility] Start: 12-09-2031 PNEUMOCOCCAL (3 - PPSV23 or PCV20) PNEUMOCOCCAL (3 - PPSV23 or PCV20) [facility] Start: 12-09-2031 PNEUMOCOCCAL (4 - PPSV23 or PCV20) PNEUMOCOCCAL (4 - PPSV23 or PCV20) [facility] Start: 12-09-2031 Pneumococcal vaccination [facility] Start: 01-27-2029 Urine microalbumin profile [facility] Start: 08-12-2028 Screening for malignant neoplasm of cervix [facility] Start: 01-06-2026 Annual PCP Team Chronic Disease Visit Annual PCP Team Chronic Disease Visit [facility] Start: 12-15-2025 Screening for malignant neoplasm of breast Mammogram Screening [facility] Start: 11-30-2025 Annual PCP Team Chronic Disease Visit Annual PCP Team Chronic Disease Visit [facility] Start: 11-30-2025 Anxiety Screening Anxiety Screening [facility] Start: 11-30-2025 Hepatitis B screening Urine Albumin:Creatinine Ratio [facility] Start: 11-30-2025 Hepatitis B Vaccine (1 of 3 - 19+ 3-dose series) Hepatitis B Vaccine (1 of 3 - 19+ 3-dose series) [facility] Comment on above: Postponed from 1985 (Declined at t his time) Start: 11-30-2025 HIV screening HIV Screening [facility] Comment on above: Postponed from 1984 (Declined at t his time) Start: 11-14-2025 Glaucoma screening Dilated Retinal Exam [facility] Start: 10-20-2025 Annual PCP Team Chronic Disease Visit Annual PCP Team Chronic Disease Visit [facility] Start: 10-06-2025 Annual PCP Team Chronic Disease Visit Annual PCP Team Chronic Disease Visit [facility] Start: 10-04-2025 HPV TESTING HPV TESTING [facility] Start: 10-04-2025 PAP TESTING PAP TESTING [facility] Start: 10-04-2025 Screening for malignant neoplasm of cervix [facility] Start: 08-22-2025 Annual PCP Team Chronic Disease Visit Annual PCP Team Chronic Disease Visit [facility] Start: 07-29-2025 Diabetic foot examination Diabetic Foot Exam [facility] Start: 07-28-2025 End: 07-28-2025 Patient encounter procedure 07/28/2025 10:30 AM EDT Office Visit Podiatry [address] [place] [address] Rachel Coleman [address] [place] [address] annual diabetic foot Podiatry Comment on above: annual diabetic foot Start: 06-09-2025 Annual PCP Team Chronic Disease Visit Annual PCP Team Chronic Disease Visit [facility] Start: 06-09-2025 BP Controlled (<130/80) BP Controlled (<130/80) [facility] Start: 06-09-2025 Covid-19 Vaccine ( season) Covid-19 Vaccine () [facility] Comment on above: Postponed from 12/27/2023 (Declined at t his time) Start: 06-09-2025 Hepatitis B surface antibody level LDL Cholesterol [facility] Start: 06-02-2025 [facility] Start: 04-25-2025 Annual PCP Team Chronic Disease Visit Annual PCP Team Chronic Disease Visit [facility] Start: 04-25-2025 BP Controlled (<130/80) BP Controlled (<130/80) [facility] Start: 01-31-2025 End: 01-31-2025 Patient encounter procedure 01/31/2025 10:00 AM EDT Office Visit Pulmonary Medicine [address] [place], [place] [phone] Jerry Montoya MD [address] [place] [id number] New ILD Pulmonary Medicine Comment on above: New ILD Start: 01-20-2025 End: 01-20-2025 Patient encounter procedure 01/20/2025 8:45 AM EDT Office Visit Pulmonary Medicine [address] [place], [place] [phone] Chrissy Dowell MD [address] [facility] [address] [place], [place] [phone] Dx: Obstructive lung disease (generalized) (HCC) [J44.9]; Chronic hypoxemic respiratory failure (HCC) [J96.11]; Bacterial pneumonia [J15.9] Pulmonary Medicine Comment on above: Dx: Obstructive lung disease (generalize d) (HCC) [J44.9]; Chronic hypoxemic respiratory failure (HCC) [J96.11]; Bacterial pneumonia [J15.9] Start: 01-20-2025 End: 01-20-2025 ambulatory [facility] Comment on above: Dx: Obstructive lung disease (generalize d) (HCC) [J44.9]; Chronic hypoxemic respiratory failure (HCC) [J96.11]; Bacterial pneumonia [J15.9] Start: 01-17-2025 Pneumococcal Vaccine: 50+ (3 of 3 - PCV20 or PCV21) Pneumococcal Vaccine: 50+ (3 of 3 - PCV20 or PCV21) [facility] Start: 01-06-2025 End: 01-06-2025 Patient encounter procedure 01/06/2025 2:40 PM EDT Office Visit [facility] [address] [place] [address] Mariana Encarnacion IP ATTORNEY.VEHICLE AND EQUIPMENT CLEANER [address] [place] [address] discharged 11/2724 [facility] Comment on above: discharged 11/2724 Start: 01-06-2025 End: 02-05-2026 XR Chest PA and Lateral XR CHEST 2V FRONTAL/LAT Radiology Routine Bacterial pneumonia Expected: 01/06/2025, Expires: 02/05/2026 [facility] Work Phone: Comment on above: Expected: 01/06/2025, Expires: Start: 01-02-2025 End: 01-02-2025 Patient encounter procedure 01/02/2025 10:00 AM EDT Office Visit [facility] [address] [place], [place] [phone] July Cedillo, IP ATTORNEY.VEHICLE AND EQUIPMENT CLEANER [address] [place] [address] discharged 11/2724 [facility] Comment on above: discharged 11/2724 Start: 01-01-2025 End: 04-02-2025 CBC W Auto Differential panel - Blood COMPLETE BLOOD COUNT AND DIFFERENTIAL Lab Routine Anemia, unspecified type Expected: 01/01/2025, Expires: 04/02/2025 [facility] Comment on above: Expected: 01/01/2025, Expires: Start: 01-01-2025 End: 04-02-2025 Ferritin [Mass/volume] in Serum or Plasma FERRITIN Lab Routine Anemia, unspecified type Expected: 01/01/2025, Expires: 04/02/2025 [facility] Comment on above: Expected: 01/01/2025, Expires: Start: 01-01-2025 End: 04-02-2025 Iron and Iron binding capacity panel - Serum or Plasma IRON AND TIBC Lab Routine Anemia, unspecified type Expected: 01/01/2025, Expires: 04/02/2025 [facility] Comment on above: Expected: 01/01/2025, Expires: Start: 12-26-2024 Influenza vaccination [facility] Start: 12-07-2024 End: 12-07-2024 Patient encounter procedure 12/07/2024 2:40 PM EDT Office Visit [facility] [address] [place], [place] [phone] Barak Tiwari MD [address] [place] [address] 6 month exam [facility] Comment on above: 6 month exam Start: 12-07-2024 Hemoglobin A1c [facility] Start: 12-01-2024 End: 03-02-2025 PROTEIN ELECTROPHORESIS SERUM W/INTERP PROTEIN ELECTROPHORESIS SERUM W/INTERP Lab Routine Elevated blood protein Expected: 12/01/2024, Expires: 03/02/2025 [facility] Comment on above: Expected: 12/01/2024, Expires: Start: 12-01-2024 Screening for malignant neoplasm of breast Mammogram Screening [facility] Start: 12-01-2024 End: 03-02-2025 Thyroxine (T4) free [Mass/volume] in Serum or Plasma T4 FREE/FREE THYROXINE Lab Routine Anemia, unspecified type Expected: 12/01/2024, Expires: 03/02/2025 [facility] Comment on above: Expected: 12/01/2024, Expires: Start: 12-01-2024 End: 03-02-2025 Triiodothyronine (T3) Free [Mass/volume] in Serum or Plasma T3, FREE Lab Routine Anemia, unspecified type Expected: 12/01/2024, Expires: 03/02/2025 [facility] Comment on above: Expected: 12/01/2024, Expires: Start: 11-24-2024 Annual PCP Team Chronic Disease Visit Annual PCP Team Chronic Disease Visit [facility] Start: 11-24-2024 Anxiety Screening Anxiety Screening [facility] Start: 11-24-2024 Covid-19 Vaccine ( season) Covid-19 Vaccine ( season) [facility] Comment on above: Postponed from 12/26/2022 (Declined at t his time) Start: 11-24-2024 Hepatitis B Vaccine (1 of 3 - 19+ 3-dose series) Hepatitis B Vaccine (1 of 3 - 19+ 3-dose series) [facility] Comment on above: Postponed from 1985 (Declined at t his time) Start: 10-25-2024 Diabetic foot examination Diabetic Foot Exam [facility] Start: 10-24-2024 Influenza vaccination Influenza Vaccine (#1) [facility] Comment on above: Postponed from 12/27/2023 (Declined at t his time) Start: 10-20-2024 End: 10-20-2024 Patient encounter procedure 10/20/2024 11:40 AM EDT Office Visit [facility] [place] [address] [place], [place] [phone] Mariana Encarnacion APRN.VEHICLE AND EQUIPMENT CLEANER [address] [place], [place] [phone] 2 week pneumonia follow up [facility] Comment on above: 2 week pneumonia follow up Start: 10-01-2024 Glaucoma screening Dilated Retinal Exam [facility] Start: 09-14-2024 Screening for malignant neoplasm of colon Fecal Occult Blood [facility] Start: 09-10-2024 BP Controlled (<130/80) BP Controlled (<130/80) [facility] Start: 09-07-2024 Annual PCP Team Chronic Disease Visit Annual PCP Team Chronic Disease Visit [facility] Start: 08-12-2024 BP Controlled (<130/80) BP Controlled (<130/80) [facility] Start: 08-12-2024 Screening for malignant neoplasm of cervix Cervical Cancer Screening [facility] Start: 08-08-2024 End: 11-07-2024 Basic metabolic 2000 panel - Serum or Plasma BASIC METABOLIC PANEL Lab Routine Hyponatremia Expected: 08/08/2024, Expires: 11/07/2024 [facility] Work Phone: Comment on above: Expected: 08/08/2024, Expires: Start: 08-08-2024 End: 11-07-2024 Magnesium [Mass/volume] in Serum or Plasma MAGNESIUM Lab Routine Hypomagnesemia Expected: 08/08/2024, Expires: 11/07/2024 [facility] Comment on above: Expected: 08/08/2024, Expires: Start: 08-08-2024 End: 11-07-2024 Thyrotropin [Units/volume] in Serum or Plasma THYROID STIMULATING HORMONE Lab Routine Hypothyroidism, acquired Expected: 08/08/2024, Expires: 11/07/2024 [facility] Comment on above: Expected: 08/08/2024, Expires: Start: 07-28-2024 End: 07-28-2024 Patient encounter procedure 07/28/2024 10:00 AM EDT Office Visit Podiatry [address] [place] [address] Rachel Coleman [address] [phone] [facility] Comment on above: [facility] Start: 06-09-2024 End: 09-08-2024 CBC W Auto Differential panel - Blood [facility] Comment on above: Expected: 06/09/2024, Expires: Start: 06-09-2024 End: 09-08-2024 Cobalamin (Vitamin B12) [Mass/volume] in Serum or Plasma [facility] Comment on above: Expected: 06/09/2024, Expires: Start: 06-09-2024 End: 09-08-2024 Comprehensive metabolic 2000 panel - Serum or Plasma [facility] Comment on above: Expected: 06/09/2024, Expires: Start: 06-09-2024 End: 09-08-2024 Hemoglobin A1c in Blood [facility] Comment on above: Expected: 06/09/2024, Expires: Start: 06-09-2024 End: 09-08-2024 LIPID PANEL, NONFASTING [facility] Work Phone: Comment on above: Expected: 06/09/2024, Expires: Start: 06-09-2024 End: 09-08-2024 Magnesium [Mass/volume] in Serum or Plasma [facility] Comment on above: Expected: 06/09/2024, Expires: Start: 06-09-2024 End: 09-08-2024 Microalbumin/Creatinine [Mass Ratio] in Urine ALBUMIN/CREATININE RATIO, URINE Lab Routine Type 2 diabetes mellitus with diabetic neuropathy, with long-term current use of insulin (HCC) Expected: 06/09/2024, Expires: 09/08/2024 [facility] Comment on above: Expected: 06/09/2024, Expires: Start: 06-09-2024 End: 09-08-2024 Thyrotropin [Units/volume] in Serum or Plasma [facility] Comment on above: Expected: 06/09/2024, Expires: Start: 06-08-2024 BP Controlled (<130/80) BP Controlled (<130/80) [facility] Start: 06-04-2024 Hepatitis B screening Urine Albumin:Creatinine Ratio [facility] Start: 06-04-2024 Hepatitis B surface antibody level LDL Cholesterol [facility] Start: 05-21-2024 Annual PCP Team Chronic Disease Visit Annual PCP Team Chronic Disease Visit [facility] Start: 05-21-2024 BP Controlled (<130/80) BP Controlled (<130/80) [facility] Start: 05-06-2024 End: 05-06-2024 Patient encounter procedure 05/06/2024 1:00 PM EST Office Visit [facility] [address] [place] [address] Barak Tiwari MD [address] [place] [phone] 2024 Medicare Wellness Z00.00 [facility] Comment on above: 2024 Medicare Wellness Z00.00 Start: 04-27-2024 Medicare Advantage Annual Wellness Visit Medicare Advantage Annual Wellness Visit [facility] Start: 03-28-2024 End: 03-28-2024 Patient encounter procedure 03/28/2024 2:45 PM EST Office Visit Pulmonary Medicine [address] [place] [address] Chrissy Dowell MD [address] [place] [address] Obstructive lung disease (generalized) (HCC) [J44.9]; Chronic hypoxemic respiratory failure (HCC) [J96.11]; Obesity hypoventilation syndrome (HCC) [E66.2] Pulmonary Medicine Comment on above: Obstructive lung disease (generalized) ( HCC) [J44.9]; Chronic hypoxemic respiratory failure (HCC) [J96.11]; Obesity hypoventilation syndrome (HCC) [E66.2] Start: 03-25-2024 End: 03-25-2024 Patient encounter procedure 03/25/2024 1:40 PM EST Office Visit Family [facility] [address] [place] [address] Barak Tiwari MD [address] [place], [place] [address] Follow Up BP Control / HCC Gap Closure [facility] Comment on above: Follow Up BP Control / HCC Gap Closure Start: 03-21-2024 End: 03-21-2024 Patient encounter procedure 03/21/2024 9:30 AM EST Office Visit URO/Gynecology [address] [place] [address] Oziel Rolon, IP ATTORNEY.VEHICLE AND EQUIPMENT CLEANER [address] [place] [address] 6 week post op URO/Gynecology Comment on above: 6 week post op Start: 03-10-2024 [facility] Start: 03-08-2024 End: 03-08-2024 Patient encounter procedure 03/08/2024 4:20 PM EST Office Visit Family Thuy Schroederoster [address] [place] [id number] Barak Tiwari MD [address] [place] [id number] 3 month follow up [facility] Thuy [place] Comment on above: 3 month follow up Start: 02-17-2024 End: 02-17-2024 Patient encounter procedure 02/17/2024 8:30 AM EDT Office Visit URO/Gynecology [address] [place] [address] Oziel Rolon, MARILYN.[employer] [address] [place] [address] 2 week post op URO/Gynecology Comment on above: 2 week post op Start: 02-08-2024 End: 05-09-2024 CBC W Auto Differential panel - Blood COMPLETE BLOOD COUNT AND DIFFERENTIAL Lab Routine Anemia, unspecified type Expected: 02/08/2024, Expires: 05/09/2024 [facility] Work Phone: Comment on above: Expected: 02/08/2024, Expires: Start: 02-08-2024 End: 05-09-2024 Cobalamin (Vitamin B12) [Mass/volume] in Serum or Plasma VITAMIN B12 Lab Routine Anemia, unspecified type Expected: 02/08/2024, Expires: 05/09/2024 [facility] Comment on above: Expected: 02/08/2024, Expires: Start: 02-08-2024 End: 05-09-2024 Iron and Iron binding capacity panel - Serum or Plasma IRON AND TIBC Lab Routine Anemia, unspecified type Expected: 02/08/2024, Expires: 05/09/2024 [facility] Comment on above: Expected: 02/08/2024, Expires: Start: 02-08-2024 End: 05-09-2024 Thyrotropin [Units/volume] in Serum or Plasma THYROID STIMULATING HORMONE Lab Routine Postoperative hypothyroidism Expected: 02/08/2024, Expires: 05/09/2024 [facility] Comment on above: Expected: 02/08/2024, Expires: Start: 02-03-2024 End: 02-03-2024 ambulatory 02/03/2024 8:00 AM EDT [facility] URO/Gynecology [address] [place] [address] POST OP TELEVISIT URO/Gynecology Comment on above: POST OP TELEVISIT Start: 02-02-2024 End: 02-02-2024 Admission to same day surgery center 02/02/2024 11:30 AM EDT - 02/02/2024 2:45 PM EDT Surgery [place] [facility] [place] [address] [facility] [place] [address] Florencia Lundy MD [address] [place] [address] HYSTERECTOMY VAGINAL UTERUS 250G OR LESS REMOVAL TUBE(S) AND/OR OVARY(S) [facility] Comment on above: HYSTERECTOMY VAGINAL UTERUS 250G OR LESS REMOVAL TUBE(S) AND/OR OVARY(S) Start: 02-02-2024 End: 02-02-2024 Cmbnd anterpost colporraphy w/cysto w/ntrcl rpr COMBINED ANTERIOPOSTERIOR COLPORRHAPHY W/ENTEROCELE REPAIR INCLUDING CYSTOURETHROSCOPY WHEN PERFORMED Uterine prolapse Midline cystocele Rectocele 02/02/2024 11:30 AM EDT [facility] Start: 02-02-2024 End: 02-02-2024 Cystourethroscopy CYSTOSCOPY Uterine prolapse Midline cystocele Rectocele 02/02/2024 11:30 AM EDT [facility] Start: 02-02-2024 Subsequent hospital visit by physician [facility] Comment on above: Uterine prolapse [N81.4] Uterine prolapse [N8 1.4], Midline cystocele [N81.11], Rectocele [N81.6] Start: 02-02-2024 End: 02-02-2024 Vag hyst 250 gm/< w/rmvl tube&/ovary HYSTERECTOMY VAGINAL UTERUS 250G OR LESS REMOVAL TUBE(S) AND/OR OVARY(S) Uterine prolapse Midline cystocele Rectocele 02/02/2024 11:30 AM EDT [facility] Start: 02-02-2024 End: 02-02-2024 Vaginectomy partial removal vaginal wall VAGINECTOMY PARTIAL Uterine prolapse Midline cystocele Rectocele 02/02/2024 11:30 AM EDT [facility] Start: 01-26-2024 End: 01-26-2024 ambulatory Pre Surgical Testing Comment on above: 1. CYSTOSCOPY Start: 01-25-2024 End: 01-25-2024 ambulatory 01/25/2024 8:00 AM EDT Procedure URO/Gynecology [address] [place] [address] Florencia Lundy MD [address] [place] [address] URO URO/Gynecology Comment on above: URO Start: 01-18-2024 End: 01-18-2024 ambulatory 01/18/2024 11:00 AM EDT [facility] URO/Gynecology [address] [place] [address] PRE OP TEACHING TELEVISIT URO/Gynecology Comment on above: PRE OP TEACHING TELEVISIT Start: 01-05-2024 End: 04-05-2024 Urinalysis complete panel - Urine URINALYSIS, WITH MICROSCOPIC Lab Routine Asymptomatic microscopic hematuria Expected: 01/05/2024, Expires: 04/05/2024 [facility] Work Phone: Comment on above: Expected: 01/05/2024, Expires: Start: 12-29-2023 End: 12-29-2023 ambulatory 12/29/2023 8:00 AM EDT Procedure URO/[place] [address] [place] [address] Florencia Lundy MD [address] [place] [address] [employer] URO/Gynecology Comment on above: [employer] Start: 12-27-2023 Covid-19 Vaccine () Covid-19 Vaccine () [facility] Start: 12-27-2023 Covid-19 Vaccine ( season) Covid-19 Vaccine ( season) [facility] Start: 12-27-2023 Influenza vaccination [facility] Start: 12-03-2023 End: 12-03-2023 Patient encounter procedure 12/03/2023 9:30 AM EDT Office Visit URO/Gynecology [address] [place] [address] Florencia Lundy MD [address] [place] [address] uterine prolapse URO/Gynecology Comment on above: uterine prolapse Start: 12-02-2023 End: 12-02-2023 Patient encounter procedure 12/02/2023 10:30 AM EDT Appointment Mammogram [address] [place], [place] [id number] Encounter for screening mammogram for breast cancer [Z12.31] Mammogram Comment on above: Encounter for screening mammogram for br east cancer [Z12.31] Start: 11-25-2023 End: 11-25-2023 Patient encounter procedure 11/25/2023 3:40 PM EDT Office Visit Family Medicine [facility] [address] [place] [id number] Barak Tiwari MD [address] [place] [address] Follow up. CBC prior [facility] Comment on above: Follow up. CBC prior Start: 11-25-2023 End: 02-24-2024 CBC W Auto Differential panel - Blood COMPLETE BLOOD COUNT AND DIFFERENTIAL Lab Routine Anemia, unspecified type Expected: 11/25/2023, Expires: 02/24/2024 [facility] Work Phone: Comment on above: Expected: 11/25/2023, Expires: Start: 11-25-2023 End: 02-24-2024 Cobalamin (Vitamin B12) [Mass/volume] in Serum or Plasma VITAMIN B12 Lab Routine Anemia, unspecified type Expected: 11/25/2023, Expires: 02/24/2024 [facility] Comment on above: Expected: 11/25/2023, Expires: Start: 11-25-2023 End: 02-24-2024 Iron and Iron binding capacity panel - Serum or Plasma IRON AND TIBC Lab Routine Anemia, unspecified type Expected: 11/25/2023, Expires: 02/24/2024 [facility] Comment on above: Expected: 11/25/2023, Expires: Start: 11-25-2023 End: 02-24-2024 Thyrotropin [Units/volume] in Serum or Plasma THYROID STIMULATING HORMONE Lab Routine CANCER M->Z THYROID Expected: 11/25/2023, Expires: 02/24/2024 [facility] Comment on above: Expected: 11/25/2023, Expires: Start: 11-18-2023 End: 11-18-2023 Patient encounter procedure 11/18/2023 9:40 AM EDT Office Visit Family Thuy [place] [address] [place], [place] [phone] Barak Tiwari MD [address] [place], [place] [phone] Follow up. CBC prior [facility] Comment on above: Follow up. CBC prior Start: 11-04-2023 End: 02-03-2024 CBC W Auto Differential panel - Blood COMPLETE BLOOD COUNT AND DIFFERENTIAL Lab Routine Anemia, unspecified type Expected: 11/04/2023, Expires: 02/03/2024 [facility] Work Phone: Comment on above: Expected: 11/04/2023, Expires: Start: 10-16-2023 Mammography [facility] Start: 10-16-2023 Screening for malignant neoplasm of breast Mammogram Screening [facility] Start: 10-07-2023 Glaucoma screening Dilated Retinal Exam [facility] Start: 10-07-2023 Hepatitis C antibody, confirmatory test DILATED RETINAL EXAM [facility] Start: 10-05-2023 ANNUAL PCP TEAM CHRONIC DISEASE VISIT ANNUAL PCP TEAM CHRONIC DISEASE VISIT [facility] Start: 10-05-2023 HIV SCREENING HIV SCREENING [facility] Comment on above: Postponed from 1984 (Declined at t his time) Start: 10-05-2023 HIV screening HIV Screening [facility] Comment on above: Postponed from 1984 (Declined at t his time) Start: 09-27-2023 3 comp foot exam completed DIABETIC FOOT EXAM [facility] Start: 09-27-2023 Diabetic foot examination Diabetic Foot Exam [facility] Start: 09-11-2023 End: 09-11-2023 Patient encounter procedure 09/11/2023 9:00 AM EDT Office Visit OB/Gynecology [address] [place] [address] Patty Roman MD [address] [place] [address] Colposcopy ASCUS HPV+ OB/Gynecology Comment on above: Colposcopy ASCUS HPV+ Start: 09-08-2023 End: 2023 Hemoglobin A1c in Blood [facility] Comment on above: Expected: 09/08/2023, Expires: Start: 09-02-2023 ANNUAL PCP TEAM CHRONIC DISEASE VISIT ANNUAL PCP TEAM CHRONIC DISEASE VISIT [facility] Start: 08-31-2023 ANNUAL PCP TEAM CHRONIC DISEASE VISIT ANNUAL PCP TEAM CHRONIC DISEASE VISIT [facility] Start: 08-31-2023 BP CONTROLLED (<130/80) BP CONTROLLED (<130/80) [facility] Start: 08-31-2023 End: 08-31-2023 Patient encounter procedure 08/31/2023 10:45 AM EDT Appointment Radiology [address] [place] [address] Pelvic pain in female [R10.2] Radiology Comment on above: Pelvic pain in female [R10.2] Start: 07-19-2023 ANNUAL PCP TEAM CHRONIC DISEASE VISIT ANNUAL PCP TEAM CHRONIC DISEASE VISIT [facility] Start: 07-19-2023 COVID-19 VACCINE (3 - Booster for Moderna series) COVID-19 VACCINE (3 - Booster for Moderna series) [facility] Comment on above: Postponed from 12/04/2020 (Declined at t his time) Start: 07-19-2023 COVID-19 VACCINE (3 - Moderna series) COVID-19 VACCINE (3 - Moderna series) [facility] Comment on above: Postponed from 12/04/2020 (Declined at t his time) Start: 07-19-2023 HEPATITIS B (1 of 3 - 3-dose series) HEPATITIS B (1 of 3 - 3-dose series) [facility] Comment on above: Postponed from 1966 (Declined at t his time) Start: 07-19-2023 Hepatitis B Vaccine (1 of 3 - 3-dose series) Hepatitis B Vaccine (1 of 3 - 3-dose series) [facility] Comment on above: Postponed from 1966 (Declined at t his time) Start: 06-20-2023 BP CONTROLLED (<130/80) BP CONTROLLED (<130/80) [facility] Start: 06-06-2023 ANNUAL PCP TEAM CHRONIC DISEASE VISIT ANNUAL PCP TEAM CHRONIC DISEASE VISIT [facility] Start: 06-05-2023 End: 09-04-2023 Basic metabolic 2000 panel - Serum or Plasma BASIC METABOLIC PNL Lab Routine Hyponatremia Expected: 06/05/2023, Expires: 09/04/2023 [facility] Work Phone: Comment on above: Expected: 06/05/2023, Expires: 4 Start: 06-04-2023 End: 06-04-2024 CBC W Auto Differential panel - Blood CBC + DIFF Lab Routine Anemia, unspecified type Expected: 06/04/2023, Expires: 06/04/2024 [facility] Work Phone: Comment on above: Expected: 06/04/2023, Expires: 5 Start: 06-04-2023 End: 06-04-2024 Cobalamin (Vitamin B12) [Mass/volume] in Serum or Plasma VITAMIN B12 BLOOD Lab Routine Anemia, unspecified type Expected: 06/04/2023, Expires: 06/04/2024 [facility] Work Phone: Comment on above: Expected: 06/04/2023, Expires: 5 Start: 06-04-2023 End: 06-04-2024 Ferritin [Mass/volume] in Serum or Plasma FERRITIN BLD Lab Routine Anemia, unspecified type Expected: 06/04/2023, Expires: 06/04/2024 [facility] Work Phone: Comment on above: Expected: 06/04/2023, Expires: Start: 06-04-2023 End: 06-04-2024 Folate [Mass/volume] in Serum or Plasma FOLATE SERUM Lab Routine Anemia, unspecified type Expected: 06/04/2023, Expires: 06/04/2024 [facility] Work Phone: Comment on above: Expected: 06/04/2023, Expires: Start: 06-04-2023 End: 06-04-2024 Hemoglobin.gastrointestina l.lower [Presence] in Stool by Immunoassay FECAL OCCULT BLOOD TEST Lab Routine Anemia, unspecified type Expected: 06/04/2023, Expires: 06/04/2024 [facility] Work Phone: Comment on above: Expected: 06/04/2023, Expires: Start: 06-04-2023 End: 06-04-2024 Iron and Iron binding capacity panel - Serum or Plasma IRON + TIBC Lab Routine Anemia, unspecified type Expected: 06/04/2023, Expires: 06/04/2024 [facility] Work Phone: Comment on above: Expected: 06/04/2023, Expires: 5 Start: 06-04-2023 End: 09-03-2023 RETIC COUNT RETIC COUNT Lab Routine Anemia, unspecified type Expected: 06/04/2023, Expires: 09/03/2023 [facility] Work Phone: Comment on above: Expected: 06/04/2023, Expires: 4 Start: 05-23-2023 ANNUAL PCP TEAM CHRONIC DISEASE VISIT ANNUAL PCP TEAM CHRONIC DISEASE VISIT [facility] Start: 05-23-2023 Hepatitis B surface antibody level LDL CHOLESTEROL [facility] Start: 05-13-2023 ANNUAL PCP TEAM CHRONIC DISEASE VISIT ANNUAL PCP TEAM CHRONIC DISEASE VISIT [facility] Start: 03-19-2023 ANNUAL PCP TEAM CHRONIC DISEASE VISIT ANNUAL PCP TEAM CHRONIC DISEASE VISIT [facility] Start: 03-15-2023 ANNUAL PCP TEAM CHRONIC DISEASE VISIT ANNUAL PCP TEAM CHRONIC DISEASE VISIT [facility] Start: 02-25-2023 ANNUAL PCP TEAM CHRONIC DISEASE VISIT ANNUAL PCP TEAM CHRONIC DISEASE VISIT [facility] Start: 02-01-2023 ANNUAL PCP TEAM CHRONIC DISEASE VISIT ANNUAL PCP TEAM CHRONIC DISEASE VISIT [facility] Start: 01-22-2023 ANNUAL PCP TEAM CHRONIC DISEASE VISIT ANNUAL PCP TEAM CHRONIC DISEASE VISIT [facility] Start: 01-10-2023 ANNUAL PCP TEAM CHRONIC DISEASE VISIT ANNUAL PCP TEAM CHRONIC DISEASE VISIT [facility] Start: 12-26-2022 Covid-19 Vaccine () Covid-19 Vaccine () [facility] Start: 12-26-2022 Influenza vaccination [facility] Start: 11-20-2022 Hemoglobin A1c measurement HbA1C [facility] Start: 11-20-2022 Hemoglobin A1c/Hemoglobin.total in Blood HBA1C [facility] Start: 09-30-2022 End: 11-30-2022 Basic metabolic 2000 panel - Serum or Plasma BASIC METABOLIC PNL Lab Routine Hyponatremia Expected: 09/30/2022, Expires: 11/30/2022 [facility] Work Phone: Comment on above: Expected: 09/30/2022, Expires: 3 Start: 09-30-2022 End: 11-30-2022 CBC W Auto Differential panel - Blood CBC + DIFF Lab Routine Anemia, unspecified type Expected: 09/30/2022, Expires: 11/30/2022 [facility] Work Phone: Comment on above: Expected: 09/30/2022, Expires: 3 Start: 08-06-2022 End: 10-06-2022 CBC W Auto Differential panel - Blood CBC + DIFF Lab Routine Iron deficiency anemia due to chronic blood loss Expected: 08/06/2022, Expires: 10/06/2022 [facility] Work Phone: Comment on above: Expected: 08/06/2022, Expires: 3 Start: 08-02-2022 BP CONTROLLED (<130/80) BP CONTROLLED (<130/80) [facility] Start: 07-22-2022 End: 09-21-2022 Basic metabolic 2000 panel - Serum or Plasma BASIC METABOLIC PNL Lab Routine Hyponatremia Expected: 07/22/2022, Expires: 09/21/2022 [facility] Work Phone: Comment on above: Expected: 07/22/2022, Expires: 3 Start: 07-22-2022 End: 09-21-2022 CBC W Auto Differential panel - Blood CBC + DIFF Lab Routine Anemia, unspecified type Expected: 07/22/2022, Expires: 09/21/2022 [facility] Work Phone: Comment on above: Expected: 07/22/2022, Expires: 3 Start: 07-18-2022 End: 09-17-2022 ALBUMIN/CREAT RATIO RND UR ALBUMIN/CREAT RATIO RND UR Lab Routine Type 2 diabetes mellitus with diabetic neuropathy, with long-term current use of insulin (HCC) Expected: 07/18/2022, Expires: 09/17/2022 [facility] Work Phone: Comment on above: Expected: 07/18/2022, Expires: 3 Start: 07-18-2022 End: 09-17-2022 Basic metabolic 2000 panel - Serum or Plasma [facility] Work Phone: Comment on above: Expected: 07/18/2022, Expires: 3 Start: 07-18-2022 End: 09-17-2022 CBC W Auto Differential panel - Blood [facility] Work Phone: Comment on above: Expected: 07/18/2022, Expires: 3 Start: 07-18-2022 End: 09-17-2022 Iron and Iron binding capacity panel - Serum or Plasma [facility] Work Phone: Comment on above: Expected: 07/18/2022, Expires: 3 Start: 07-12-2022 Mammography MAMMOGRAM [facility] Start: 07-03-2022 ANNUAL PCP TEAM CHRONIC DISEASE VISIT ANNUAL PCP TEAM CHRONIC DISEASE VISIT [facility] Start: 06-20-2022 Hemoglobin A1c/Hemoglobin.total in Blood HBA1C [facility] Start: 06-06-2022 End: 08-06-2022 ALBUMIN/CREAT RATIO RND UR ALBUMIN/CREAT RATIO RND UR Lab Routine Type 2 diabetes mellitus with diabetic neuropathy, with long-term current use of insulin (HCC) Expected: 06/06/2022, Expires: 08/06/2022 [facility] Work Phone: Comment on above: Expected: 06/06/2022, Expires: 3 Start: 05-24-2022 End: 07-24-2022 CBC W Auto Differential panel - Blood CBC + DIFF Lab Routine Iron deficiency anemia, unspecified iron deficiency anemia type Expected: 05/24/2022, Expires: 07/24/2022 [facility] Work Phone: Comment on above: Expected: 05/24/2022, Expires: 3 Start: 05-24-2022 End: 07-24-2022 Iron and Iron binding capacity panel - Serum or Plasma IRON + TIBC Lab Routine Iron deficiency anemia, unspecified iron deficiency anemia type Expected: 05/24/2022, Expires: 07/24/2022 [facility] Work Phone: Comment on above: Expected: 05/24/2022, Expires: 3 Start: 05-24-2022 End: 07-24-2022 Lipid 1996 panel - Serum or Plasma LIPID PANEL BASIC Lab Routine Other hyperlipidemia Expected: 05/24/2022, Expires: 07/24/2022 [facility] Work Phone: Comment on above: Expected: 05/24/2022, Expires: 3 Start: 05-23-2022 End: 07-23-2022 Natriuretic peptide.B prohormone N-Terminal [Mass/volume] in Serum or Plasma [facility] Work Phone: Comment on above: Expected: 05/23/2022, Expires: 3 Start: 05-17-2022 [facility] Start: 05-16-2022 Patient discharge [facility] Start: 05-15-2022 Application of elastic bandage [facility] Start: 05-15-2022 Admission procedure [facility] Start: 05-14-2022 Ambulation without limitation [facility] Start: 05-14-2022 Assessment of risk of venous thromboembolism [facility] Start: 05-14-2022 Care regimes management [facility] Start: 05-14-2022 Insertion of catheter into peripheral vein [facility] Start: 05-14-2022 Providing care according to standard [facility] Start: 05-14-2022 Referral to gastroenterology service [facility] Start: 05-14-2022 [facility] Start: 05-14-2022 End: 05-14-2022 Catheterization of vein [facility] Start: 05-14-2022 Verification routine [facility] Start: 05-14-2022 Admission procedure [facility] Start: 05-14-2022 Following clinical pathway protocol [facility] Start: 05-14-2022 Leukocyte reduced red blood cells [facility] Start: 05-14-2022 Administration of blood product [facility] Start: 05-14-2022 [facility] Start: 04-16-2022 End: 04-16-2023 Radiologic exam chest 2 views XR CHEST 2V FRONTAL/LAT Radiology Routine Bacterial pneumonia Expected: 04/16/2022, Expires: 04/16/2023 [facility] Work Phone: Comment on above: Expected: 04/16/2022, Expires: 3 Start: 04-14-2022 End: 06-14-2022 Basic metabolic 2000 panel - Serum or Plasma BASIC METABOLIC PNL Lab Routine Essential hypertension, benign Expected: 04/14/2022, Expires: 06/14/2022 [facility] Work Phone: Comment on above: Expected: 04/14/2022, Expires: 3 Start: 04-14-2022 End: 06-14-2022 CBC W Auto Differential panel - Blood CBC + DIFF Lab Routine Anemia, unspecified type Expected: 04/14/2022, Expires: 06/14/2022 [facility] Work Phone: Comment on above: Expected: 04/14/2022, Expires: 3 Start: 04-14-2022 End: 06-14-2022 Hemoglobin A1c in Blood HGB A1C Lab Routine Type 2 diabetes mellitus with diabetic neuropathy, with long-term current use of insulin (HCC) Expected: 04/14/2022, Expires: 06/14/2022 [facility] Work Phone: Comment on above: Expected: 04/14/2022, Expires: 3 Start: 04-14-2022 End: 06-14-2022 Iron and Iron binding capacity panel - Serum or Plasma IRON + TIBC Lab Routine Anemia, unspecified type Expected: 04/14/2022, Expires: 06/14/2022 [facility] Work Phone: Comment on above: Expected: 04/14/2022, Expires: 3 Start: 04-14-2022 End: 06-14-2022 Lipid 1996 panel - Serum or Plasma LIPID PANEL BASIC Lab Routine Other hyperlipidemia Expected: 04/14/2022, Expires: 06/14/2022 [facility] Work Phone: Comment on above: Expected: 04/14/2022, Expires: 3 Start: 03-27-2022 3 comp foot exam completed DIABETIC FOOT EXAM [facility] Start: 02-08-2022 COLORECTAL CANCER SCREENING COLORECTAL CANCER SCREENING [facility] Start: 02-08-2022 FECAL OCCULT BLOOD FECAL OCCULT BLOOD [facility] Start: 02-08-2022 Screening for malignant neoplasm of colon Fecal Occult Blood [facility] Start: 02-03-2022 End: 04-05-2022 CBC W Auto Differential panel - Blood CBC + DIFF Lab Routine Anemia, unspecified type Expected: 02/03/2022, Expires: 04/05/2022 [facility] Work Phone: Comment on above: Expected: 02/03/2022, Expires: 2 Start: 02-01-2022 End: 04-03-2022 CBC W Auto Differential panel - Blood [facility] Work Phone: Comment on above: Expected: 02/01/2022, Expires: 2 Start: 01-29-2022 Hepatitis B screening URINE ALBUMIN:CREATININE RATIO [facility] Start: 01-22-2022 End: 03-24-2022 Basic metabolic 2000 panel - Serum or Plasma [facility] Work Phone: Comment on above: Expected: 01/22/2022, Expires: 2 Start: 01-22-2022 End: 03-24-2022 CBC W Auto Differential panel - Blood [facility] Work Phone: Comment on above: Expected: 01/22/2022, Expires: 2 Start: 01-12-2022 Hemoglobin A1c/Hemoglobin.total in Blood HBA1C [facility] Start: 01-12-2022 Patient discharge [facility] Work Phone: Start: 01-12-2022 Application of intermittent pneumatic compression device [facility] Work Phone: Start: 01-10-2022 Ambulation without limitation [facility] Work Phone: Start: 01-10-2022 Assessment of risk of venous thromboembolism [facility] Work Phone: Start: 01-10-2022 Care regimes management [facility] Work Phone: Start: 01-10-2022 Catheterization of vein [facility] Work Phone: Start: 01-10-2022 Insertion of catheter into peripheral vein [facility] Work Phone: Start: 01-10-2022 Measuring intake and output [facility] Work Phone: Start: 01-10-2022 Notification of physician [facility] Work Phone: Start: 01-10-2022 Oxygen therapy [facility] Work Phone: Start: 01-10-2022 Providing care according to standard [facility] Work Phone: Start: 01-10-2022 Referral to gastroenterology service [facility] Work Phone: Start: 01-10-2022 Transfusion of red blood cells [facility] Work Phone: Start: 01-10-2022 Admission procedure [facility] Work Phone: Start: 01-10-2022 Troponin I measurement [facility] Work Phone: Start: 01-10-2022 Following clinical pathway protocol [facility] Work Phone: Start: 01-10-2022 Leukocyte reduced red blood cells [facility] Work Phone: Start: 01-10-2022 End: 01-10-2022 [facility] Work Phone: Start: 01-10-2022 Administration of blood product [facility] Work Phone: Start: 01-10-2022 [facility] Work Phone: Start: 01-10-2022 End: 03-12-2022 Basic metabolic 2000 panel - Serum or Plasma [facility] Work Phone: Comment on above: Expected: 01/10/2022, Expires: 2 Start: 01-10-2022 End: 03-12-2022 CREATININE BLD CREATININE BLD Lab Routine Screening for nephropathy Expected: 01/10/2022, Expires: 03/12/2022 [facility] System Work Phone: Comment on above: Expected: 01/10/2022, Expires: 2 Start: 01-10-2022 End: 03-12-2022 Natriuretic peptide.B prohormone N-Terminal [Mass/volume] in Serum or Plasma [facility] Work Phone: Comment on above: Expected: 01/10/2022, Expires: 2 Start: 01-10-2022 End: 03-12-2022 Thyrotropin [Units/volume] in Serum or Plasma [facility] Work Phone: Comment on above: Expected: 01/10/2022, Expires: 2 Start: 01-10-2022 End: 03-12-2022 Thyroxine (T4) free [Mass/volume] in Serum or Plasma [facility] Work Phone: Comment on above: Expected: 01/10/2022, Expires: 2 Start: 01-10-2022 [facility] Start: 12-26-2021 Influenza vaccination INFLUENZA (#1) [facility] Start: 10-02-2021 Hepatitis C antibody, confirmatory test DILATED RETINAL EXAM [facility] Start: 04-12-2021 Hepatitis B surface antibody level LDL CHOLESTEROL [facility] Start: 03-11-2021 COVID-19 VACCINE (3 - Booster for Moderna series) COVID-19 VACCINE (3 - Booster for Moderna series) [facility] Start: 12-04-2020 COVID-19 VACCINE (3 - Booster for Moderna series) COVID-19 VACCINE (3 - Booster for Moderna series) [facility] Start: 11-27-2016 End: 11-27-2016 Appointment Appointment [facility] Work Phone: Start: 12-09-2011 COLOGUARD (FIT-DNA) COLOGUARD (FIT-DNA) [facility] Start: 12-09-2011 Colonoscopy COLONOSCOPY [facility] Start: 12-09-[address] COLONOGRAPHY [facility] Start: 12-09-2011 Screening for malignant neoplasm of colon [facility] Start: 12-09-2011 SIGMOIDOSCOPY SIGMOIDOSCOPY [facility] Start: 1996 Zoledronic acid therapy Alpha-1 Antitrypsin Deficiency Screening [facility] Start: 1985 HEPATITIS B (1 of 3 - Risk 3-dose series) HEPATITIS B (1 of 3 - Risk 3-dose series) [facility] Start: 1985 Hepatitis B Vaccine (1 of 3 - 19+ 3-dose series) Hepatitis B Vaccine (1 of 3 - 19+ 3-dose series) [facility] Start: 1984 Anxiety Screening Anxiety Screening [facility] Start: 1984 BP CONTROLLED (<130/80) BP CONTROLLED (<130/80) [facility] Start: 1984 HIV SCREENING HIV SCREENING [facility] Start: 1984 HIV screening HIV Screening [facility] Start: 1966 HEPATITIS B (1 of 3 - 3-dose series) HEPATITIS B (1 of 3 - 3-dose series) [facility] Bacteria identified in Urine by Culture URINE CULTURE Microbiology Routine Dysuria 06/08/2023 4:29 PM EST [facility] Work Phone: Bacteria identified in Urine by Culture URINE CULTURE Microbiology Routine Hematuria, unspecified type 08/13/2023 4:30 PM EDT [facility] Work Phone: Blood chemistry [facility] Blood chemistry [facility] CBC W Auto Different ial panel - Blood COMPLETE BLOOD COUNT AND DIFFERENTIAL Lab Routine Anemia, unspecified type 12/16/2024 10:47 AM EDT [facility] COLOGUARD COLOGUARD Lab Ro utine Screening for colon cancer Ordered: 01/10/2022 [facility] Work Phone: Comment on above: Ordered: 01/10/2022 COLPOSCOPY COLPOSCOPY Proce dures Routine ASCUS with positive high risk HPV cervical Ordered: 08/27/2023 [facility] Work Phone: Comment on above: Ordered: 08/27/2023 End: 02-09-2023 CT CHEST W IVCON PE CT CHEST W IVCON PE Radiology STAT Chest pain on breathing 1 Occurrences starting 01/10/2022 until 02/09/2023 [facility] Work Phone: Comment on above: 1 Occurrences starting 01/10/2022 until 02/09/2023 End: 01-15-2026 CTA Pulmonary arteries for pulmonary embolus W contrast IV CTA CHEST (NONGATED) W IVCON PE Radiology STAT Chest pain, unspecified type Pulmonary HTN (HCC) SOB (shortness of breath) History of pulmonary embolism 1 Occurrences starting 12/16/2024 until 01/15/2026 [facility] Work Phone: Comment on above: 1 Occurrences starting 12/16/2024 until 01/15/2026 End: 12-24-2024 DBT Breast - bilateral screening JOSEFA SCREENING W BLAISE Radiology Routine Encounter for screening mammogram for breast cancer 1 Occurrences starting 11/25/2023 until 12/24/2024 [facility] Work Phone: Comment on above: 1 Occurrences starting 11/25/2023 until 12/24/2024 DBT Breast - bilater al screening JOSEFA SCREENING W BLAISE Radiology Routine Encounter for screening mammogram for breast cancer 12/15/2024 9:38 AM EDT [facility] Work Phone: End: 01-10-2023 ECG COMPLETE ECG COMPLETE ECG Routine SOB (shortness of breath) Chest discomfort 1 Occurrences starting 01/10/2022 until 01/10/2023 [facility] Work Phone: Comment on above: 1 Occurrences starting 01/10/2022 until 01/10/2023 End: 01-25-2025 ECG COMPLETE ECG COMPLETE ECG Routine Pre-op testing Chronic diastolic congestive heart failure (HCC) Type 2 diabetes mellitus with diabetic neuropathy, with long-term current use of insulin (HCC) Chronic obstructive pulmonary disease, unspecified COPD type (HCC) 1 Occurrences starting 01/26/2024 until 01/25/2025 [facility] Work Phone: Comment on above: 1 Occurrences starting 01/26/2024 until 01/25/2025 End: 01-10-2023 EXERCISE STRESS ECG (WITHOUT IMAGING) EXERCISE STRESS ECG (WITHOUT IMAGING) Cardiology Routine SOB (shortness of breath) Chest discomfort 1 Occurrences starting 01/10/2022 until 01/10/2023 [facility] Work Phone: Comment on above: 1 Occurrences starting 01/10/2022 until 01/10/2023 EXERCISE STRESS ECG (WITHOUT IMAGING) EXERCISE STRESS ECG (WITHOUT IMAGING) Cardiology Routine SOB (shortness of breath) Chest discomfort 04/14/2022 4:29 PM EST [facility] [employer] Work Phone: Ferritin [Mass/volum e] in Serum or Plasma FERRITIN Lab Routine Anemia, unspecified type 12/16/2024 10:47 AM EDT [facility] Hemoglobin.gastroint estina l.lower [Presence] in Stool by Immunoassay FECAL OCCULT BLOOD TEST Lab Routine Iron deficiency anemia due to chronic blood loss Ordered: 08/06/2022 [facility] Work Phone: Comment on above: Ordered: 08/06/2022 Hemoglobin.gastroint estina l.lower [Presence] in Stool by Immunoassay IMMUNOCHEMICAL FECAL OCCULT BLOOD TEST Lab Routine Anemia, unspecified type Ordered: 12/01/2024 [facility] Work Phone: Comment on above: Ordered: 12/01/2024 Iron and Iron bindin g capacity panel - Serum or Plasma IRON AND TIBC Lab Routine Anemia, unspecified type 12/16/2024 10:47 AM EDT [facility] End: 08-17-2023 JOSEFA SCREENING JOSEFA SCREENING Radiology Routine Screening breast examination 1 Occurrences starting 07/18/2022 until 08/17/2023 [facility] Work Phone: Comment on above: 1 Occurrences starting 07/18/2022 until 08/17/2023 PAP TEST PAP TEST Lab [facility] josue Cervical cancer screening Special screening examination for human papillomavirus (HPV) 08/13/2023 4:30 PM EDT [facility] Work Phone: Patient Education [facility] Work Phone: Patient referral [facility] Work Phone: PROTEIN ELECTROPHORE SIS SERUM W/INTERP PROTEIN ELECTROPHORESIS SERUM W/INTERP Lab Routine Elevated blood protein 12/16/2024 10:47 AM EDT [facility] End: 02-09-2023 Radiologic exam chest 2 views XR CHEST 2V FRONTAL/LAT Radiology Routine SOB (shortness of breath) Chest discomfort 1 Occurrences starting 01/10/2022 until 02/09/2023 [facility] Work Phone: Comment on above: 1 Occurrences starting 01/10/2022 until 02/09/2023 End: 04-14-2023 Radiologic exam chest 2 views XR CHEST 2V FRONTAL/LAT Radiology Routine Bronchitis 1 Occurrences starting 03/15/2022 until 04/14/2023 [facility] Work Phone: Comment on above: 1 Occurrences starting 03/15/2022 until 04/14/2023 Radiologic exam ches t 2 views XR CHEST 2V FRONTAL/LAT Radiology Routine Bronchitis 03/15/2022 10:59 AM EST [facility] Work Phone: SPIROMETRY WITH DILA TOR IF OBSTRUCTED SPIROMETRY WITH DILATOR IF OBSTRUCTED PFT Routine SOB (shortness of breath) 06/20/2022 8:15 AM EST [facility] Work Phone: SURGICAL PATHOLOGY SURGICAL PATH OLOGY Lab Routine ASCUS with positive high risk HPV cervical 09/11/2023 11:52 AM EDT [facility] Work Phone: T4 free measurement [facility] Work Phone: Thyroid stimulating hormone measurement [facility] Work Phone: Thyroxine (T4) free [Mass/volume] in Serum or Plasma T4 FREE/FREE THYROXINE Lab Routine Anemia, unspecified type 12/16/2024 10:47 AM EDT [facility] Triiodothyronine (T3 ) Free [Mass/volume] in Serum or Plasma T3, FREE Lab Routine Anemia, unspecified type 12/16/2024 10:47 AM EDT [facility] Troponin I measurement [facility] Work Phone: Urinalysis complete panel - Urine URINALYSIS, WITH MICROSCOPIC Lab Routine Asymptomatic microscopic hematuria Ordered: 12/03/2023 [facility] Work Phone: Comment on above: Ordered: 12/03/2023 URODYNAMICS WHI URODYNAMICS WHI Procedures Routine MORENO (stress urinary incontinence, female) Ordered: 12/03/2023 [facility] Comment on above: Ordered: 12/03/[address] [facility] End: 10-07-2024 US Lower extremity vein - right US DVT LOWER RIGHT Radiology STAT Pain of right lower extremity 1 Occurrences starting 09/08/2023 until 10/07/2024 [facility] Work Phone: Comment on above: 1 Occurrences starting 09/08/2023 until 10/07/2024 End: 09-11-2024 US Pelvis transvaginal US FEMALE PELVIS TRANSVAG Radiology Routine Pelvic pain in female 1 Occurrences starting 08/13/2023 until 09/11/2024 [facility] Work Phone: Comment on above: 1 Occurrences starting 08/13/2023 until 09/11/2024 US Pelvis transvaginal US FEMALE PELVIS TRANSVAG Radiology Routine Pelvic pain in female 08/31/2023 11:24 AM EDT [facility] Work Phone: End: 01-01-2025 US Pelvis transvaginal US FEMALE PELVIS TRANSVAG Radiology Routine Uterine prolapse 1 Occurrences starting 12/03/2023 until 01/01/2025 [facility] Comment on above: 1 Occurrences starting 12/03/2023 until 01/01/2025 US.doppler Lower ext remity vessels [facility] XR Chest PA and Lateral XR CHEST 2V FRONTAL/LAT Radiology Routine Bacterial pneumonia 01/10/2025 10:10 AM EDT [facility] Work Phone: [facility] Work Phone: [facility] Immunizations Immunization Date Immunization Notes Care Provider [facility] 01-22-2022 influenza, injectabl e, quadrivalent, contains preservative Barak Tiwari MD Work Phone: [facility] 01-22-2022 influenza virus vacc ine, unspecified formulation Screen Wstr [facility] 02-23-2021 influenza, injectabl e, quadrivalent, preservative free Sc Nurse Work Phone: [facility] 10-09-2020 COVID-19 vaccine, fu ll dose (MODERNA) Sc Nurse Work Phone: [facility] 09-11-2020 COVID-19 vaccine, fu ll dose (MODERNA) Sc Nurse Work Phone: [facility] 03-29-2020 zoster vaccine recombinant Mi Nurse Work Phone: [facility] 01-18-2020 influenza, injectabl e, quadrivalent, preservative free Mi Nurse Work Phone: [facility] 01-18-2020 pneumococcal polysaccharide vaccine, 23 valent Mi Nurse Work Phone: [facility] 01-18-2020 zoster vaccine recombinant Mi Nurse Work Phone: [facility] 01-27-2019 tetanus toxoid, redu natalia diphtheria toxoid, and acellular pertussis vaccine, adsorbed Mi Nurse Work Phone: [facility] Work Phone: 01-26-2019 pneumococcal conjuga te vaccine, 13 valent Mi Nurse Work Phone: [facility] 01-17-2019 influenza, injectabl e, quadrivalent, preservative free Mi Nurse Work Phone: [facility] 01-21-2018 influenza, injectabl e, quadrivalent, contains preservative Mi Nurse Work Phone: [facility] 01-21-2018 pneumococcal polysaccharide vaccine, 23 valent Mi Nurse Work Phone: [facility] 01-11-2018 Influenza virus vaccine [facility] 01-11-2018 influenza, seasonal, injectable, preservative free Barak Tiwari MD Work Phone: [facility] 01-07-2018 influenza, injectabl e, quadrivalent, preservative free Barak Tiwari MD Work Phone: [facility] 01-07-2018 pneumococcal polysaccharide vaccine, 23 valent Barak Tiwari MD Work Phone: [facility] 02-08-2017 influenza, seasonal, injectable Mi Nurse Work Phone: [facility] 01-10-2016 influenza, seasonal, injectable Mi Nurse Work Phone: [facility] Payers Date Payer Category Payer Private Health Insurance [facility] HMO [id number] 2024 Unknown [id number] 2023 Medicare (Managed Care) [employer] [place] [id number] 2023 Private Health Insurance [id number] 2023 Self-pay [id number] 2023 Private Health Insurance [id number] 2023 Unknown [id number] 2021 Medicaid [facility] MEDICAID MYC ARE [facility] MEDICAID [id number] 2021-Present [phone] [address] [place] [address] Medicaid [id number] 2020 Medicaid [id number] 2019 Medicare HUMANA MEDICARE HUMANA GOLD PLUS [id number] 2019-Present [phone] [address] [address] [place] [address] O [id number] 2019 Medicare [id number] 2016 Medicare [id number] 2014 Unknown [id number] 2008 Medicare [id number] Unknown [facility] MCRDUAL COMP O [id number] Unknown [id number] Unknown [id number] Unknown [id number] Unknown [id number] Unknown [id number] Unknown [id number] Unknown [id number] Social History Date Type Detail Facility Start: 07-30-2017 End: 01-10-2022 Tobacco smoking status NHIS Never smoked tobacco [facility] Work Phone: Start: 08-06-2020 End: 08-02-2021 Alcohol intake Current non-drinker of alcohol (finding) [facility] Start: 07-30-2017 End: 01-10-2022 Tobacco Comment FAther smoking in childhood home. Has lived with smoker in home, son quit about 2015. [facility] Start: 1965 Sex Assigned At Not on file [facility] Start: 07-07-2020 End: 03-19-2022 Exposure to SARS-CoV-2 (event) Not sure [facility] Start: 01-09-2021 End: 10-07-2022 Tobacco smoking status NHIS Unknown if ever smoked [facility] Start: 03-17-2019 None [facility] Start: 06-10-2019 Spouse/ Signif icant Other [facility] Start: 11-08-2019 Non-smoker [facility] Start: 1965 Sex Assigned At Female W [facility] Start: 07-30-2017 End: 01-10-2022 Tobacco use and exposure Smokeless tobacco non-user [facility] Work Phone: Start: 09-01-2022 End: 12-17-2024 History of Social function [facility] Work Phone: Start: 09-01-2022 End: 12-17-2024 Tobacco use panel [facility] Work Phone: Start: 03-28-2012 National Score (1-100), lower number is lower risk 89 [facility] Work Phone: Start: 08-13-2023 End: 01-06-2025 Alcohol intake Ex-drinker (finding) [facility] How often to you hav e a drink containing alcohol? Never [facility] (I/We) worried whether (my/our) food would run out before (I/we) got money to buy more. Never true [facility] In the past 12 months, was there a time when you were not able to pay the mortgage or rent on time? No [facility] NEGATED: Highlighted row [facility] Medical Equipment Procedure Code Equipment Code Equipment Original Text Equipment Identifier Dates Thyroidectomy SUTURE,LIGA CLIP MED [id number] FDA Start: 12-13-2018 Thyroidectomy SUTURE,LIGA CLIP SM LT-100 FDA Start: 12-13-2018 Thyroidectomy SUTURE,LIGA CLIP MED [id number] FDA Start: 12-13-2018 Thyroidectomy SUTURE,LIGA CLIP SM LT-100 FDA Start: 12-13-2018 Thyroidectomy SUTURE,LIGA CLIP MED [id number] FDA Start: 12-13-2018 Thyroidectomy SUTURE,LIGA CLIP SM LT-100 FDA Start: 12-13-2018 Thyroidectomy SUTURE,LIGA CLIP MED [id number] FDA Start: 12-13-2018 Thyroidectomy SUTURE,LIGA CLIP SM LT-100 FDA Start: 12-13-2018 Thyroidectomy SUTURE,LIGA CLIP MED [id number] FDA Start: 12-13-2018 Thyroidectomy SUTURE,LIGA CLIP SM LT-100 FDA Start: 12-13-2018 Thyroidectomy SUTURE,LIGA CLIP MED [id number] FDA Start: 12-13-2018 Thyroidectomy SUTURE,LIGA CLIP SM LT-100 FDA Start: 12-13-2018 Thyroidectomy SUTURE,LIGA CLIP MED [id number] FDA Start: 12-13-2018 Thyroidectomy SUTURE,LIGA CLIP SM LT-100 FDA Start: 12-13-2018 Thyroidectomy SUTURE,LIGA CLIP MED [id number] FDA Start: 12-13-2018 Thyroidectomy SUTURE,LIGA CLIP SM LT-100 FDA Start: 12-13-2018 Thyroidectomy SUTURE,LIGA CLIP MED [id number] FDA Start: 12-13-2018 Thyroidectomy SUTURE,LIGA CLIP SM LT-100 FDA Start: 12-13-2018 Thyroidectomy SUTURE,LIGA CLIP MED [id number] FDA Start: 12-13-2018 Thyroidectomy SUTURE,LIGA CLIP SM LT-100 FDA Start: 12-13-2018 Thyroidectomy SUTURE,LIGA CLIP MED [id number] FDA Start: 12-13-2018 Thyroidectomy SUTURE,LIGA CLIP SM LT-100 FDA Start: 12-13-2018 Cholecystocolostomy MAYCOL 3GRM HEMOSTAT ABS FDA Start: 11-15-2019 Cholecystocolostomy CLIP,HEMOLOC K MED WECK FDA Start: 11-15-2019 Cholecystocolostomy CLIP,HEMOLOC K MED WECK FDA Start: 11-15-2019 Cholecystocolostomy MAYCOL 3GRM HEMOSTAT ABS FDA Start: 11-15-2019 Cholecystocolostomy CLIP,HEMOLOC K MED WECK FDA Start: 11-15-2019 Cholecystocolostomy CLIP,HEMOLOC K MED WECK FDA Start: 11-15-2019 Cholecystocolostomy MAYCOL 3GRM HEMOSTAT ABS FDA Start: 11-15-2019 Cholecystocolostomy CLIP,HEMOLOC K MED WECK FDA Start: 11-15-2019 Cholecystocolostomy CLIP,HEMOLOC K MED WECK FDA Start: 11-15-2019 Cholecystocolostomy MAYCOL 3GRM HEMOSTAT ABS FDA Start: 11-15-2019 Cholecystocolostomy CLIP,HEMOLOC K MED WECK FDA Start: 11-15-2019 Cholecystocolostomy CLIP,HEMOLOC K MED WECK FDA Start: 11-15-2019 Cholecystocolostomy MAYCOL 3GRM HEMOSTAT ABS FDA Start: 11-15-2019 Cholecystocolostomy CLIP,HEMOLOC K MED WECK FDA Start: 11-15-2019 Cholecystocolostomy CLIP,HEMOLOC K MED WECK FDA Start: 11-15-2019 Cholecystocolostomy MAYCOL 3GRM HEMOSTAT ABS FDA Start: 11-15-2019 Cholecystocolostomy CLIP,HEMOLOC K MED WECK FDA Start: 11-15-2019 Cholecystocolostomy CLIP,HEMOLOC K MED WECK FDA Start: 11-15-2019 Cholecystocolostomy MAYCOL 3GRM HEMOSTAT ABS FDA Start: 11-15-2019 Cholecystocolostomy CLIP,HEMOLOC K MED WECK FDA Start: 11-15-2019 Cholecystocolostomy CLIP,HEMOLOC K MED WECK FDA Start: 11-15-2019 Cholecystocolostomy MAYCOL 3GRM HEMOSTAT ABS FDA Start: 11-15-2019 Cholecystocolostomy CLIP,HEMOLOC K MED WECK FDA Start: 11-15-2019 Cholecystocolostomy CLIP,HEMOLOC K MED WECK FDA Start: 11-15-2019 Cholecystocolostomy MAYCOL 3GRM HEMOSTAT ABS FDA Start: 11-15-2019 Cholecystocolostomy CLIP,HEMOLOC K MED WECK FDA Start: 11-15-2019 Cholecystocolostomy CLIP,HEMOLOC K MED WECK FDA Start: 11-15-2019 Cholecystocolostomy MAYCOL 3GRM HEMOSTAT ABS FDA Start: 11-15-2019 Cholecystocolostomy CLIP,HEMOLOC K MED WECK FDA Start: 11-15-2019 Cholecystocolostomy CLIP,HEMOLOC K MED WECK FDA Start: 11-15-2019 Cholecystocolostomy MAYCOL 3GRM HEMOSTAT ABS FDA Start: 11-15-2019 Cholecystocolostomy CLIP,HEMOLOC K MED WECK FDA Start: 11-15-2019 Cholecystocolostomy CLIP,HEMOLOC K MED WECK FDA Start: 11-15-2019 [id number], [id number], [id number], [id number], [id number], [id number], [id number], [id number], [id number], [id number], [id number] Start: 10-21-2018 End: 01-05-2025 Comment on above: Test blood sugar(s) 4 times daily. Dx: Type 2 DM - Controlled E11.9 Insulin: Yes Use one needle per d ose. 4 per day. use 1 (ONE) new need le with each dose, FOUR per day. Goals Date Patient Goal Desired Activity /State Functional Status Date Assessment Result Facility 12-21-2024 Are you deaf, or do you have serious difficulty hearing No 12/21/2024 4:13 PM Braulio Miguel RN No [facility] 12-21-2024 Are you blind, or do you have serious difficulty seeing, even when wearing glasses No 12/21/2024 4:13 PM Braulio Miguel RN No [facility] 12-21-2024 Do you have serious difficulty walking or climbing stairs No 12/21/2024 4:13 PM Braulio Miguel, PHAM No [facility] 12-21-2024 Do you have difficul ty dressing or bathing No 12/21/2024 4:13 PM EDBraulio Elaine, PHAM [facility] 12-21-2024 Because of a physica l, mental, or emotional condition, do you have difficulty doing errands alone such as visiting a physician's office or shopping No 12/21/2024 4:13 PM Braulio Miguel, PHAM [facility] 06-09-2024 Total score [AUDIT-C] 0 06/09/19 2:24 PM Nicol Hollis MA [facility] 05-16-2022 Functional status Chair [facility] Work Phone: 01-12-2022 Functional status Dangle Feet [facility] Work Phone: 12-22-2013 Are you deaf, or do you have serious difficulty hearing No 12/22/2013 1:26 PM Glendy Mccarthy MA No [facility] 12-22-2013 Are you blind, or do you have serious difficulty seeing, even when wearing glasses No 12/22/2013 1:26 PM Glendy Mccarthy MA No [facility] 12-22-2013 Do you have serious difficulty walking or climbing stairs No 12/22/2013 1:26 PM EDT Glendy Parker MA No [facility] 12-22-2013 Do you have difficul ty dressing or bathing No 12/22/2013 1:26 PM EDT Glendy Parker MA No [facility] 12-22-2013 Because of a physica l, mental, or emotional condition, do you have difficulty doing errands alone such as visiting a physician's office or shopping No 12/22/2013 1:26 PM EDT Glendy Parker MA No [facility] Mental Status Date Assessment Result Facility 12-21-2024 Because of a physica l, mental, or emotional condition, do you have serious difficulty concentrating, remembering, or making decisions No 12/21/2024 4:13 PM EDT Braulio Borrero RN No [facility] 05-16-2022 Cognitive function Voice/Name [facility] Work Phone: 05-16-2022 Cognitive function Appropriate;C ooperativ e [facility] Work Phone: 01-12-2022 Cognitive function Voice/Name [facility] Work Phone: 12-22-2013 Because of a physica l, mental, or emotional condition, do you have serious difficulty concentrating, remembering, or making decisions No 12/22/2013 1:26 PM EDT Glendy Parker MA No [facility] Clinical Notes 09-25-2015 to 03-08-2025 Telephone Encounter - James Charles - 01/10/2025 2:45 PM EDTTelephone Encounter - James Charles - 01/10/2025 2:45 PM Brooke Topete RT(Fady) - 01/10/2025 10:00 AM EDT Note Date & Type Note Facility 03-08-2025 Note [facility] 03-03-2025 Note [facility] 02-23-2025 Note [facility] 02-21-2025 Note [facility] 01-20-2025 Note [facility] 01-10-2025 Telephone encounter Note Transitional Care Management (TCM) [facility] Monitoring Program Provider Action / FYI: N/A SUMMARY: Outreach type: INITIAL OUTREACH Discharge Network Status: In-Network Discharge Source of Patient: [facility] TCM Discharge Report Patient discharged from [facility] on Dec 21. Admitted for Acute hypoxic respiratory failure (HCC). Contact made with patient: No - next outreach attempt will be on next business day. James Farley January 10, 2025 2:48 PM [facility] 01-10-2025 Miscellaneous Notes Transitional Care Management (TCM) [facility] Provider Action / FYI: N/A SUMMARY: Outreach type: INITIAL OUTREACH Discharge Network Status: In-Network Discharge Source of Patient: [facility] TCM Discharge Report Patient discharged from [facility] on Dec 21. Admitted for Acute hypoxic respiratory failure (HCC). Contact made with patient: No - next outreach attempt will be on next business day. James Farley January 10, 2025 2:48 PM documented in this encounter [facility] 01-10-2025 History of Present illness Narrative Radiology Service Progress Note PATIENT NAME: Jesus Zepeda DATE OF SERVICE: January 10, 2025 TIME: 9:54 AM PATIENT IDENTITY VERIFICATION COMPLETED USING TWO (2) IDENTIFIERS: Name and Date of confirmed by patient verbally. FALL SCREENING: Has the patient had 2 falls in the last year or 1 fall with injury or currently using an Ambulatory Assistive Device (Walker, Cane, Wheelchair, Crutches, etc.)? No PATIENT GENDER DATA: Assigned female at . status: : No status: NO. PATIENT RELEVANT IMPLANT DATA REVIEWED: Yes PATIENT PRESENTS WITH AN IMPLANTABLE OR ATTACHED SCREW MACHINE OPERATOR: No RADIOLOGY DEPARTMENT: General X-ray: Exam(s) Completed: Chest X-Ray PERIPHERAL IV DATA: Not applicable SIGNED BY: RT Rosa Elena(R) January 10, 2025 9:54 AM documented in this encounter [facility] 01-10-2025 Note [facility] 01-06-2025 Note Addended by: AMRIANA ENCARNACION on: 01/06/2025 03:22 PM Modules accepted: Orders [facility] 01-06-2025 Miscellaneous Notes Addended by: MARIANA ENCARNACION on: 01/06/2025 03:22 PM Modules accepted: Orders Addended by: MARIANA ENCARNACION on: 01/06/2025 03:20 PM Modules accepted: Orders documented in this encounter [facility] 01-06-2025 Note Addended by: MARIANA ENCARNACION on: 01/06/2025 03:20 PM Modules accepted: Orders [facility] 01-06-2025 Instructions Mariana Encarnacion APRN.CNP - 01/06/2025 3:17 PM EDT - Continue your current medications as prescribed: valsartan and carvedilol twice daily(the small white pills--three - Take the printed order to [employer] (oxygen supplier) to arrange a portable oxygen tank capable of delivering up to 4 L per minute. - Call to schedule an appointment with collision repair technician Dr. Dowell at the specialty building near you. - Apply a moisturizing cream to your lower legs daily to help with the cracked skin. - Chest Xray at your convenience- will take a few days to get reading since not emergent documented in this encounter [facility] 01-06-2025 Note [facility] 01-06-2025 History of Present illness Narrative This is a 59 year old female who presents today with: Patient presents with: Hospital F/U: [facility] D/C 12/21/24 Acute hypoxic respiratory failure HISTORY OF PRESENT ILLNESS: Jesus Zepeda is a 59 year old female. Patient presents with: Hospital F[facility] 12/21/24 Acute hypoxic respiratory failure Follow up on respiratory failure. Now on continuous O2- 4L with activity and 2 L at rest. The patient is a 59-year-old female with HTN and diastolic dysfunction on home oxygen, presenting for evaluation of portable oxygen requirements. Legionella Pneumonia: - Recent hospitalization in November for Legionella pneumonia. - Completed courses of prednisone and two antibiotics. - Jesus reports increased energy and appetite post-hospitalization. - Denies current cough or wheezing. - O2 saturation was 75% on 4L during hospitalization; now ranges between 90-94% at home. - Currently on 4L O2, reduced to 2L at home. - Experiencing mild dyspnea in the mornings. - Denies chest pain. - Sleeps in a chair due to breathing difficulties when lying down. - CT scan during hospitalization was abnormal; Jesus declined a recommended lung test. - No longer living in a trailer with standing water; now resides in a decent apartment. Diastolic Dysfunction: - Diagnosed with diastolic dysfunction during recent hospitalization. - Jesus reports chronic leg edema. - Denies heart palpitations. - Applying cream to legs, but reports pain with application. Hypertension: - Long-standing history of HTN. - Current medications include valsartan and carvedilol BID. - Recent BP readings: 152/88 mmHg today, 159/90 mmHg during hospitalization. - Denies headaches, blurred or double vision. - No issues with bowel or bladder function. - Reports good sleep quality. PAST MEDICAL HISTORY: PAST MEDICAL HISTORY Diagnosis Date Abnormal Pap smear of cervix 09/2020 lgsil/+HPV 11/14 colp benign 08/18 ascus/+HPV 09/17 colp LGSIL Adjustment disorder with depressed mood Asthma (HCC) Chronic hypoxemic respiratory failure (HCC) COPD (chronic obstructive pulmonary disease) (HCC) Esophageal reflux Essential hypertension, benign Generalized anxiety disorder GI bleed History of transfusion HLD (hyperlipidemia) Hx of blood transfusion reaction Hypertension Kidney stones Menorrhagia Migraine without aura Morbid obesity (HCC) Nonspecific abnormal results of other endocrine function study 06/2004 Benign biopsy. Abnormally high thyroid globulin HARMONY (obstructive sleep apnea) Pulmonary emboli (HCC) 09/2013 Bilateral on CTA chest. Scleritis Type II or unspecified type diabetes mellitus without mention of complication, not stated as uncontrolled Uterine prolapse PAST SURGICAL HISTORY Procedure Laterality Date CARPAL TUNNEL Right 11/2015 CHOLECYSTECTOMY 11/15/2019 Dr. Ferguson COMBO ANT/POST COLPORR+ENTEROCELE 02/02/2024 CYSTOMETROGRAM 12/29/2023 CYSTOSCOPY 12/29/2023 EGD 03/07/2020 Dr Ferguson THYROID BIOPSY US 11/2015 THYROIDECTOMY TOTAL/COMPLETE Left 12/13/2018 Dr Ferguson TOTAL THYROID LOBECTOMY UNI W/WO ISTHMUSECTOMY 01/15/2007 right TUBAL LIGATION 1989 VAGINAL HYSTERECTOMY 02/02/2024 XCAPSL CTRC RMVL INSJ IO LENS PROSTH W/O ECP Right 06/2015 Cataract Extraction with PC IOL XCAPSL CTRC RMVL INSJ IO LENS PROSTH W/O ECP Left 07/2015 Cataract Extraction with PC IOL ALLERGIES Latex, Prinivil [Lisinopril], and Zanaflex [Tizanidine Hcl] MEDICATIONS Current Outpatient Medications Medication Sig blood sugar diagnostic (BLOOD GLUCOSE TEST) test strip Test blood sugar(s) 2 times daily. Dx: Type 2 DM - Controlled E11.9 Insulin: Yes Lancets Test blood sugar(s) 2 times daily. Dx: Type 2 DM - Controlled E11.9 Insulin: Yes alcohol swabs (BD SINGLE USE SWABS REGULAR) For use with insulin injections 4 times daily predniSONE (DELTASONE) 10 mg tablet Take 3 tablets by mouth once daily. sulfamethoxazole-trimethoprim (BACTRIM DS) 800-160 mg per tablet Take 1 tablet by mouth every Thursday, Thursday, and Thursday. carvedilol (COREG) 25 mg tablet Take 0.5 tablets by mouth two times a day. SUMAtriptan (IMITREX) 50 mg tablet Take 1 tablet by mouth as needed for migraine headache (see administration instructions). sucralfate (CARAFATE) 1 gram tablet Take 1 tablet by mouth two times a day. albuterol HFA (PROVENTIL HFA, VENTOLIN HFA) 90 mcg/actuation inhaler Inhale 2 puffs as instructed every 6 hours as needed. budesonide-formoterol (SYMBICORT) 160-4.5 mcg/actuation inhaler Inhale 2 puffs as instructed two times a day. magnesium oxide (MAG-OX) 400 mg (241.3 mg magnesium) tablet Take 1 tablet by mouth once daily. levothyroxine (SYNTHROID) 200 mcg tablet Take 1 tablet by mouth daily before breakfast. valsartan (DIOVAN) 160 mg tablet Take 1 tablet by mouth once daily. atorvastatin (LIPITOR) 20 mg tablet Take 1 tablet by mouth once daily. For cholesterol. SITagliptin-metFORMIN (JANUMET) 50-1,000 mg per tablet Take 1 tablet by mouth two times a day with meals. iron bisgly,ps-FA-B-C#12-succ 65 mg-65 mg -1,000 mcg (24) tab Take 500 mg by mouth two times a day. blood sugar diagnostic (BLOOD GLUCOSE TEST) test strip Test blood sugar(s) 4 times daily. Dx: Type 2 DM - Controlled E11.9 Insulin: Yes fluorometholone (FML LIQUID FILM) 0.1 % ophthalmic suspension Use 1 drop in both eyes two times a day as needed. No current facility-administered medications for this visit. FAMILY HISTORY Problem Relation Age of Onset Hypertension Mother Diabetes Mother Thyroid Mother thyroidectomy other (heart murmur) Mother Heart Attack Father Diabetes Brother Hypertension Brother No Known Problems Brother Pneumothorax Maternal Grandmother No Known Problems Daughter No Known Problems Son Breast Cancer Maternal Aunt Metastatic to bone other (Other) Other No DVT or PE. SOCIAL HISTORY[1] REVIEW OF SYSTEMS Constitutional: (+) fatigue, (+) increased appetite, (-) insomnia Head: (-) headache Eyes: (-) blurred vision, (-) double vision Cardiovascular: (+) leg swelling, (+) chest tightness, (-) chest pain, (-) palpitations Respiratory: (+) orthopnea, (+) shortness of breath, (-) wheezing Gastrointestinal: (-) bowel changes Genitourinary: (-) urinary symptoms EXAM: BP 152/88 Pulse 68 Temp 36.9 C (98.4 F) (Left Tympanic) Wt 103 kg (227 lb) LMP 03/21/2005 SpO2 97% BMI 37.77 kg/m PHYSICAL EXAM: GENERAL: NAD, alert and oriented. SKIN: Cracked skin on lower extremities that have chronic lymphema. No rash or skin lesions. HEAD: Normocephalic. NECK: Supple, no lymphadenopathy, normal thyroid, no carotid bruits. LUNGS: Clear to auscultation bilaterally, no wheezes/rhonchi/rales. HEART: Regular rate and rhythm, no murmurs. No ectopy. EXTREMITIES: Normal, no deformities, no skin discoloration, chronic lymphedema. NEURO: Awake, alert and oriented x3, cranial nerves II-XII grossly intact, lumbering gait, no involuntary motions. LABS: Labs: Legionella test: Positive Imaging: (November) Echocardiogram: Diastolic dysfunction with impaired relaxation CT scan: Abnormal ASSESSMENT/PLAN: 1. Chronic diastolic congestive heart failure (HCC) (I50.32) - History of diastolic dysfunction secondary to long-standing hypertension; reviewed pathophysiology and importance of BP control to prevent fluid overload. - BP today 152/88 initially, then 140/68 on repeat; prior hospital BP 159/90. - Continue valsartan and carvedilol BID. - Educated on importance of strict BP control to prevent worsening heart failure. 2. Obstructive lung disease (generalized) (HCC) (J44.9) 3. Chronic hypoxemic respiratory failure (HCC) (J96.11) - Oxygen saturation currently 90-94% on home oxygen (2 L/min at home, 4 L/min when out). - Lungs clear on auscultation. - Provided documentation for [employer] to determine appropriate portable oxygen tank. - Referred to Dr. Dowell (pulmonology) for ongoing management. 4. Bacterial pneumonia (J15.9) - Recent hospitalization in November for Legionella pneumonia; completed course of prednisone and two antibiotics. - CT scan during hospitalization was abnormal; repeat imaging was recommended but not completed. Chest X-ray order. Discussed treatment plan and patient voices understanding. Patient's questions answered appropriately. Medications and potential side effects were discussed and patient voices understanding. Return to the office as scheduled or as needed for worsening/no improvement. Mariana Encarnacion, IP ATTORNEY.VEHICLE AND EQUIPMENT CLEANER [1] Social History Tobacco Use Smoking status: Never Smokeless tobacco: Never Tobacco comments: FAther smoking in childhood home. Has lived with smoker in home, son quit about 2015. Vaping Use Vaping status: Never Used Substance Use Topics Alcohol use: Not Currently Drug use: Never documented in this encounter [facility] 01-05-2025 Telephone encounter Note The following approved medication requests have been transmitted electronically. Requested Prescriptions Pending Prescriptions Disp Refills blood sugar diagnostic (BLOOD GLUCOSE TEST) test strip 180 each 3 Sig: Test blood sugar(s) 2 times daily. Dx: Type 2 DM - Controlled E11.9 Insulin: Yes Lancets 3 Sig: Test blood sugar(s) 2 times daily. Dx: Type 2 DM - Controlled E11.9 Insulin: Yes Mariana Encarnacion APRN.CNP [facility] 01-05-2025 Miscellaneous Notes The following approved medication requests have been transmitted electronically. Requested Prescriptions Pending Prescriptions Disp Refills blood sugar diagnostic (BLOOD GLUCOSE TEST) test strip 180 each 3 Sig: Test blood sugar(s) 2 times daily. Dx: Type 2 DM - Controlled E11.9 Insulin: Yes Lancets 3 Sig: Test blood sugar(s) 2 times daily. Dx: Type 2 DM - Controlled E11.9 Insulin: Yes Mariana Encarnacion APRN.CNP Prescription Refill Information The patient has been identified by name and date of : Yes Caregiver verified no other encounters exist for this prescription request: Yes Caregiver confirmed with patient/requestor that no other refills are due, in the near future, with this provider at this time: Yes The last office visit in the department: 11/30/24 Does the patient have a future office visit with this provider/department: Yes Requested Prescriptions Pending Prescriptions Disp Refills blood sugar diagnostic (BLOOD GLUCOSE TEST) test strip 200 strip 3 Sig: Test blood sugar(s) 4 times daily. Dx: Type 2 DM - Controlled E11.9 Insulin: Yes Lancets 200 each 3 Sig: Test blood sugar(s) 4 times daily. Dx: Type 2 DM - Controlled E11.9 Insulin: Yes Please note: Patient stated she is ONLY testing 2 times per day. Please update the prescriptions. Chel George January 05, 2025 2:59 PM documented in this encounter [facility] 01-05-2025 Telephone encounter Note Done [facility] 01-05-2025 Miscellaneous Notes Done Last office visit: 11/30/24 Next office visit:01/06/25 Jesus is a patient of Barak Tiwari MD today to request the following not on her list. Please send to [facility]: Disp Refills Start End alcohol swabs (BD SINGLE USE SWABS REGULAR) (Discontinued) 400 Each 3 08/31/2023 11/25/2023 Sig: For use with insulin injections 4 times daily Sent to pharmacy as: alcohol swabs (BD SINGLE USE SWABS REGULAR) Class: Normal Order: [id number] E-Prescribing Status: Receipt confirmed by pharmacy (08/31/2023 5:41 PM EDT) E-Cancel Status: Request approved by pharmacy (11/25/2023 4:14 PM EDT) Patient has been identified by name and birthdate. Was an appointment scheduled: No Closing statement: Results or non-symptom based questions: Thank you for calling [facility], your call will be returned within the next business day. Chel De Leon Pss documented in this encounter [facility] 01-05-2025 Telephone encounter Note Last office visit: 11/30/24 Next office visit:01/06/25 [facility] 01-05-2025 Telephone encounter Note Jesus is a patient of Barak Tiwari MD today to request the following not on her list. Please send to [facility]: Disp Refills Start End alcohol swabs (BD SINGLE USE SWABS REGULAR) (Discontinued) 400 Each 3 08/31/2023 11/25/2023 Sig: For use with insulin injections 4 times daily Sent to pharmacy as: alcohol swabs (BD SINGLE USE SWABS REGULAR) Class: Normal Order: [id number] E-Prescribing Status: Receipt confirmed by pharmacy (08/31/2023 5:41 PM EDT) E-Cancel Status: Request approved by pharmacy (11/25/2023 4:14 PM EDT) Patient has been identified by name and birthdate. Was an appointment scheduled: No Closing statement: Results or non-symptom based questions: Thank you for calling [facility], your call will be returned within the next business day. Chel De Leon Pss [facility] 01-05-2025 Telephone encounter Note Prescription Refill Information The patient has been identified by name and date of : Yes Caregiver verified no other encounters exist for this prescription request: Yes Caregiver confirmed with patient/requestor that no other refills are due, in the near future, with this provider at this time: Yes The last office visit in the department: 11/30/24 Does the patient have a future office visit with this provider/department: Yes Requested Prescriptions Pending Prescriptions Disp Refills blood sugar diagnostic (BLOOD GLUCOSE TEST) test strip 200 strip 3 Sig: Test blood sugar(s) 4 times daily. Dx: Type 2 DM - Controlled E11.9 Insulin: Yes Lancets 200 each 3 Sig: Test blood sugar(s) 4 times daily. Dx: Type 2 DM - Controlled E11.9 Insulin: Yes Please note: Patient stated she is ONLY testing 2 times per day. Please update the prescriptions. Chel De Leon Pss January 05, 2025 2:59 PM [facility] 12-29-2024 Telephone encounter Note Transitional Care Management (TCM) [facility] Provider Action / FYI: N/a SUMMARY: Outreach type: INITIAL OUTREACH Discharge Network Status: In-Network Discharge Source of Patient: [facility] TCM Discharge Report Patient discharged from [facility] on 12/21/2024. Admitted for Acute hypoxic respiratory failure (HCC). Contact made with patient: Yes, for Initial Outreach Hi my name is Anitra Juan and I am calling from the [facility] on behalf of your Primary Care Provider, Barak Tiwari MD. I understand you were recently in the hospital so I am calling to check in with you to ensure you are feeling well now that you are home. May I ask you a few questions related to your hospital stay and well-being? Yes Contact with patient post discharge, spoke to patient. Patient identified by name and . Symptoms: Do you feel your health is BETTER, WORSE, or the SAME since leaving the hospital? Better Action Taken: Patient indicated symptoms are better or same, no action required. Hospital Follow-Up Appointment: I would like to help you schedule a hospital follow-up visit with your Primary Care Provider (PCP). This is a great way for you to connect with your provider to ensure you have safely transitioned home. If you are agreeable, I will provide you with the Appointment Center phone number to speak with a switchboard operator helper who can assist you with that appointment. This will give you an opportunity to ask any questions or address any concerns you may have with your Primary Care Provider. [Inform the patient that if they have any questions or concerns prior to that appointment, to call their PCP's office right away.] Action Taken: Patient had a follow-up appointment with their PCP. Anitra Martinez December 29, 2024 1:16 PM [facility] 12-29-2024 Miscellaneous Notes Transitional Care Management (TCM) [facility] Provider Action / FYI: N/a SUMMARY: Outreach type: INITIAL OUTREACH Discharge Network Status: In-Network Discharge Source of Patient: [facility] TCM Discharge Report Patient discharged from [facility] on 12/21/2024. Admitted for Acute hypoxic respiratory failure (HCC). Contact made with patient: Yes, for Initial Outreach Hi my name is Anitra Martinez and I am calling from the [facility] on behalf of your Primary Care Provider, Barak Tiwari MD. I understand you were recently in the hospital so I am calling to check in with you to ensure you are feeling well now that you are home. May I ask you a few questions related to your hospital stay and well-being? Yes Contact with patient post discharge, spoke to patient. Patient identified by name and . Symptoms: Do you feel your health is BETTER, WORSE, or the SAME since leaving the hospital? Better Action Taken: Patient indicated symptoms are better or same, no action required. Hospital Follow-Up Appointment: I would like to help you schedule a hospital follow-up visit with your Primary Care Provider (PCP). This is a great way for you to connect with your provider to ensure you have safely transitioned home. If you are agreeable, I will provide you with the Appointment Center phone number to speak with a switchboard operator helper who can assist you with that appointment. This will give you an opportunity to ask any questions or address any concerns you may have with your Primary Care Provider. [Inform the patient that if they have any questions or concerns prior to that appointment, to call their PCP's office right away.] Action Taken: Patient had a follow-up appointment with their PCP. Anitra Martinez December 29, 2024 1:16 PM documented in this encounter [facility] 12-29-2024 Telephone encounter Note LVM with reminder of Appt. Left office # to call back. Mailing out letter with information to patient. [facility] 12-29-2024 Miscellaneous Notes LVM with reminder of Appt. Left office # to call back. Mailing out letter with information to patient. LeftVM with patient in regards to appointment for Jan 31 at 10am. Is this timeframe ok? I will follow up yarely. ----- Message from Jerry Montoya MD sent at 12/27/2024 4:09 PM EDT ----- Please schedule this patient to see me in ILD slot in next 2-3 weeks thanks Sylvester documented in this encounter [facility] 12-28-2024 Telephone encounter Note Transitional Care Management (TCM) [facility] Provider Action / FYI: NA SUMMARY: Outreach type: INITIAL OUTREACH Discharge Network Status: In-Network Discharge Source of Patient: [facility] TCM Discharge Report Patient discharged from [facility] on 12.21.24. Admitted for Acute hypoxic respiratory failure . . Contact made with patient: No - 2nd unsuccessful attempt - end outreach and close encounter. Es Reed December 28, 2024 10:09 AM [facility] 12-28-2024 Miscellaneous Notes Transitional Care Management (TCM) [facility] Provider Action / FYI: NA SUMMARY: Outreach type: INITIAL OUTREACH Discharge Network Status: In-Network Discharge Source of Patient: [facility] TCM Discharge Report Patient discharged from [facility] on 12.21.24. Admitted for Acute hypoxic respiratory failure . . Contact made with patient: No - 2nd unsuccessful attempt - end outreach and close encounter. Es Reed December 28, 2024 10:09 AM documented in this encounter [facility] 12-27-2024 Telephone encounter Note LeftVM with patient in regards to appointment for Jan 31 at 10am. Is this timeframe ok? I will follow up yarely. [facility] 12-27-2024 Telephone encounter Note ----- Message from Jerry Montoya MD sent at 12/27/2024 4:09 PM EDT ----- Please schedule this patient to see me in ILD slot in next 2-3 weeks thanks Sylvester [facility] 12-27-2024 Telephone encounter Note Transitional Care Management (TCM) [facility] Provider Action / FYI: N/A SUMMARY: Outreach type: INITIAL OUTREACH Discharge Network Status: In-Network [facility] Patient discharged from [facility] on 12/21/2024 . Admitted for Acute hypoxic respiratory failure . Contact made with patient: No - next outreach attempt will be on next business day. Voicemail left including callback number and advised to call PCP for any new or worsening symptoms or seek emergent care at nearest ED. Aleida Chase RN December 27, 2024 12:22 PM [facility] 12-27-2024 Miscellaneous Notes Transitional Care Management (TCM) [facility] Provider Action / FYI: N/A SUMMARY: Outreach type: INITIAL OUTREACH Discharge Network Status: In-Network Discharge Source of Patient: [facility] TCM Discharge Report Patient discharged from [facility] on 12/21/2024 . Admitted for Acute hypoxic respiratory failure . Contact made with patient: No - next outreach attempt will be on next business day. Voicemail left including callback number and advised to call PCP for any new or worsening symptoms or seek emergent care at nearest ED. Aleida Chase RN December 27, 2024 12:22 PM documented in this encounter [facility] 12-27-2024 Miscellaneous Notes Patient was notified and will schedule when she comes in for hosp f/u Nicol Patrick MA December 27, 2024 11:04 AM ----- Message from Barak Tiwari MD sent at 12/19/2024 8:00 AM EDT ----- Will need other imaging when discharged ----- Message ----- From: Radiology, [place] In Sent: 12/16/2024 12:21 PM EDT To: Barak Tiwari MD documented in this encounter [facility] 12-27-2024 Telephone encounter Note Patient was notified and will schedule when she comes in for hosp f/u Nicol Patrick MA December 27, 2024 11:04 AM [facility] 12-27-2024 Telephone encounter Note ----- Message from Barak Tiwari MD sent at 12/19/2024 8:00 AM EDT ----- Will need other imaging when discharged ----- Message ----- From: Radiology, [place] Sent: 12/16/2024 12:21 PM EDT To: Barak Tiwari MD [facility] 12-21-2024 Note HNO ID: [id number] Author: KURTIS DOWELL RN Service: Care Management Author Type: Registered Nurse Type: Care Mgt Progress Note Filed: 12/21/2024 12:09 Note Text: CARE MANAGEMENT DISCHARGE NOTE SERVICE DATE: December 21, 2024 SERVICE TIME: 12:08 PM Admission Date: 12/16/2024 LOS: 5 days Discharge Arrangement Discharge Arrangement: Home with Self Care Services Arranged Home oxygen Provider Name: micha Caregiver Assessment Caregiver is ready, willing and able to meet the patient's needs as recommended by the inter-professional team: No Caregiver needed Transportation Arrangements Transportation Arrangements: Car Date of Trip: 12/21/24 Destination: home Handoff Communication: Handoff to: Harbor Engineer Harbor Engineer Name/Phone: barak tiwari Additional Information: N.A Discharge Information Row Name Admission (Current) from 12/16/[address] [facility] Durable Medical Equipment Agency [employer] Equipment Needed please call upon arrival home for delivery of home concentrator Patient discharged home this date with home oxygen set up for 4L on exertion only via [employer]. [employer] to deliver portable tank to hospital prior to dc today then patient has been instructed to call upon arrival home for delivery of home concentrator. Family to transport home 4pm. CM will follow for transition of care. SIGNATURE: Kurtis Dowell RN PATIENT NAME: Jesus Zepeda DATE: December 21, 2024 TIME: 12:08 PM 12-21-2024 Note HNO ID: [id number] Author: KURTIS DOWELL RN Service: Care Management Author Type: Registered Nurse Type: Care Mgt Progress Note Filed: 12/21/2024 12:04 Note Text: CARE MANAGEMENT PROGRESS NOTE SERVICE DATE: 12/21/2024 SERVICE TIME: 1155 LOS: 5 days IMM Follow Up Copy Given: Yes Copy given to:: Patient Method: In Person SIGNATURE: Kurtis Dowell RN PATIENT NAME: Jesus Zepeda DATE: December 21, 2024 TIME: 12:04 PM 12-21-2024 Note HNO ID: [id number] Author: JEF STARR APRN.CNP Service: Pulmonary Disease Author Type: Nurse Practitioner Type: Plan of Care Filed: 12/21/2024 11:23 Note Text: 12/21/2024 11:19 AM HOME OXYGEN EVALUATION Baseline SpO2 at rest on room air: 93% SpO2 < or = 88% at rest on RA: No Patient currently on home oxygen: No SpO2 at rest maintained > or = 92% on: NC Patient ambulated? Yes, desaturated to 85% on room air Initial O2 device for ambulation: NC Liters: 2L applied, SpO2 92%, test continued Desaturated to 87% on 3L, increased to 3L Desaturated to 88% on 3L, increased to 4L Based on Medicare guidelines patient qualifies for continuous oxygen with exertion SpO2 maintained > or = to 88% on initial O2 for ambulation: Yes Liters: 4L with exertion Room air at rest Final SpO2 on O2: 91% on 4L NC 12/21/2024 11:19 AM Jef Starr APRN.[employer]MENT [employer]ER 12-21-2024 Note HNO ID: [id number] Author: KURTIS DOWELL RN Service: Care Management Author Type: Registered Nurse Type: Care Mgt Progress Note Filed: 12/21/2024 11:36 Note Text: CARE MANAGEMENT PROGRESS NOTE SERVICE DATE: 12/21/2024 SERVICE TIME: 8:44 AM LOS: 5 days Chart reviewed. Patient admitted from home for hypoxia, acute respiratory failure. Pulm consulted. Patient on 2L NC (No baseline), IVAB. Desat complete 12/19 requiring 3L rest and 6L with exertion. Pulm and attending not comfortable sending home on high amount of o2 with no baseline o2. Pending repeat desat on day of dc Patient resides home alone with 2 dogs and 4 birds in a trailer. Patient functionally independent, drives. Will have ride on dc. Patient current with PCP listed on file. Plan home, pending desat. CM monitoring for o2 needs. [employer] is FOC. ____ Patient needs 4L on exertion only. Pending orders. Desat done per pulm. CM uploaded clinicals to [facility] as [employer] is FOC. SIGNATURE: Kurtis Dowell RN PATIENT NAME: Jesus Zepeda DATE: December 21, 2024 TIME: 8:44 AM 12-20-2024 Note HNO ID: [id number] Author: HECTOR BEGUM MD Service: Hospital Medicine Author Type: Physician Type: Progress Notes Filed: 12/20/2024 16:43 Note Text: DEPARTMENT OF HOSPITAL MEDICINE PROGRESS NOTE SERVICE DATE: 12/20/2024 SERVICE TIME: 4:35 PM Hospital Medicine/Primary Attending: Hector Begum MD PRIMARY CARE PHYSICIAN: Barak Tiwari MD Readmission: Highest Readmission Risk Score: 19 Transition of care: 59-year-old woman past medical history of chronic hypoxic respiratory failure on 2 L of oxygen at baseline was unable to wear oxygen because of lack of insurance due to COPD-never having PFTs was never smoker with longstanding asthma on Symbicort 2 puffs does not 4 birds at home and on 2 dogs. Currently being evaluated for suspected hypersensitivity pneumonitis either related to bird exposure or mold. Pulmonary on board evaluating patient, plan to start steroids this admission. Dispo: Home Subjective : Patient seen and examined be me today. Did not appear to be in acute distress. Sitting in chair. Cont to remain on 95 on 2L. No acute events reported overnight. Objective BP 152/68 Pulse 67 Temp (Src) 98.4 (Oral) Resp 20 Ht 5' 5 (1.65m) Wt 214 lb 1.1 oz (97.1kg) SpO2 95% LMP 03/21/2005 BMI 35.62 kg/(m2). O2 Therapy: Nasal Cannula, Liters (Numeric Only): 2 PHYSICAL EXAM: Constitutional: in no obvious cardiopulmonary or painful distress. Acyanotic, anicteric, afebrile Head/Face: Normocephalic, atraumatic. CVS: S1, S2, RRR, No murmurs, no rubs or gallops Respiratory: Air entry equal bilaterally, breath sounds clear, no Creps no rhonchi Abdomen: Soft nontender, nondistended, no masses, no palpable hepatosplenomegaly, bowel sounds normal Extremities: No edema, no cyanosis. Skin: Warm dry with normal skin turgor. Normal color with no rashes, no lesions, and no evidence of cellulitis. Neurologic examination: Power 5/5 throughout, sensation intact throughout Psych: Awake, alert, orientated to person, place and time DATA: Diagnostic tests reviewed for today's visit: CBC, Coags, BMP, Mg, Phos Recent Labs 12/20/24 0459 12/19/24 0530 12/19/24 0430 12/18/24 0728 WBC 4.65 -- 5.07 5.16 HB 10.6* -- 10.5* 10.7* HCT 33.7* -- 32.4* 33.6* PLT 269 -- 260 271 NA 132* -- 133* 133* K 4.6 4.4 -- 4.3 CHLOR 102 -- 101 102 CO2 22 -- 24 25 BUN 20 -- 14 10 CREAT 0.66 -- 0.72 0.75 GLUC 116* -- 97 107* CA 8.9 -- 8.9 9.5 MG 2.0 -- 1.8 1.6 P 3.7 -- 3.9 3.7 Assessment/Plan : 59-year-old woman past medical history of chronic hypoxic respiratory failure on 2 L of oxygen at baseline was unable to wear oxygen because of lack of insurance due to COPD-never having PFTs was never smoker with longstanding asthma on Symbicort 2 puffs does not 4 birds at home and on 2 dogs. Currently being evaluated for suspected hypersensitivity pneumonitis either related to bird exposure or mold. Pulmonary on board evaluating patient, plan to start steroids this admission. Dispo: Home Acute on chronic hypoxic respiratory failure Hypersensitivity pneumonitis? + Hypoxia and dyspnea on exertion Will cont Supplemental O2>>Patient on 5L O2. Will wean as tolerated. Expanded respiratory panel in process COVID-19, influenza A/B and RSV negative + Positive urine Legionella Procalcitonin: 0.08 VBG on presentation: 7.39/pCO2: 41 bicarb: 25 BNP: 169 Pulmonary evaluated patient being worked up for hypersensitive pneumonitis Will follow-up ILD serologies, ESR CRP, HIV and hepatitis panel Ig HP panel, bird fanciers panel, BLANCA (was 1:160, speckled pattern, in 2020), ANCA are ordered/pending Pulmonary recommending bronchoscopy with BAL on Thursday to rule out infectious disease however patient would like to leave before then this can be completed outpatient Will require repeat echo outpatient Continue ceftriaxone tomorrow every 24 hourly Continue azithromycin 500 mg PO daily Continue Tessalon Perle 100 mg p.o. 3 times daily Continue guaifenesin 1200 mg p.o. every 12 hours Started on prednisone 30 mg PO daily Patient to follow-up with Dr. Montoya in 2 to 4 weeks post discharge Not medically optimized 6-minute walk test completed patient requiring 6 L of ambulation will hold discharge for an additional day or 2 Lower extremity swelling rule out DVT Lower extremity Doppler rule out DVT: Negative for DVT HLD Continue atorvastatin 20 mg p.o. at bedtime Diabetes type 2 R-ISS Diabetic diet Hypoglycemic corrective measures Hypothyroidism Continue levothyroxine 200 mcg p.o. daily HTN Continue valsartan 160 mg p.o. daily Diet: Orders Placed This Encounter DIET HEART HEALTHY Standing Status: Standing Number of Occurrences: 1 Heart Healthy: 4 GM SODIUM (LOW SAT FAT) VTE Prophylaxis: VTE prophylaxis appropriate Code Status: Code Status: Full Code Plan of care discussed with Provider, RN, Patient Disclaimer This dictation was created u (more content not included)... 12-20-2024 Note HNO ID: [id number] Author: KURTIS DOWELL RN Service: Care Management Author Type: Registered Nurse Type: Care Mgt Progress Note Filed: 12/20/2024 11:28 Note Text: CARE MANAGEMENT PROGRESS NOTE SERVICE DATE: 12/20/2024 SERVICE TIME: 11:27 AM LOS: 4 days Chart reviewed. Patient admitted from home for hypoxia, acute respiratory failure. Pulm consulted. Desat ordered. Bronchoscopy and RHC possibly needed but can be done outpatient per documentation. Patient on 3L NC (No baseline), IVAB. Desat complete 12/19 requiring 3L rest and 6L with exertion. Pulm and attending not comfortable sending home on high amount of o2 with no baseline o2. Pending repeat desat today 12/20 Patient resides home alone with 2 dogs and 4 birds in a trailer. Patient functionally independent, drives. Will have ride on dc. Patient current with PCP listed on file. Plan home, pending desat. CM monitoring for o2 needs. [employer] is FOC. SIGNATURE: Kurtis Dowell RN PATIENT NAME: Jesus Zepeda DATE: December 20, 2024 TIME: 11:27 AM 12-19-2024 Note HNO ID: [id number] Author: HECTOR BEGUM MD Service: Hospital Medicine Author Type: Physician Type: Progress Notes Filed: 12/19/2024 16:43 Note Text: DEPARTMENT OF HOSPITAL MEDICINE PROGRESS NOTE SERVICE DATE: 12/19/2024 SERVICE TIME: 4:41 PM Hospital Medicine/Primary Attending: Hector Begum MD PRIMARY CARE PHYSICIAN: Barak Tiwari MD Readmission: Highest Readmission Risk Score: 19 Subjective : Patient seen by me today endorsing that she is feeling better, completed 6-minute walk test requiring 6 L ambulation would benefit from an additional day or 2 for repeat testing. Patient was advised to this however requested to leave despite not being medically optimized, spoke with patient's daughter and told her to situation who convince patient to stay 1 additional day. Objective BP 124/65 Pulse 70 Temp (Src) 97.9 (Oral) Resp 16 Ht 5' 5 (1.65m) Wt 213 lb 6.5 oz (96.8kg) SpO2 96% LMP 03/21/2005 BMI 35.51 kg/(m2). O2 Therapy: Nasal Cannula, Liters (Numeric Only): 3 PHYSICAL EXAM: Constitutional: in no obvious cardiopulmonary or painful distress. Acyanotic, anicteric, afebrile Head/Face: Normocephalic, atraumatic. CVS: S1, S2, RRR, No murmurs, no rubs or gallops Respiratory: Air entry equal bilaterally, breath sounds clear, no Creps no rhonchi Abdomen: Soft nontender, nondistended, no masses, no palpable hepatosplenomegaly, bowel sounds normal Extremities: No edema, no cyanosis. Skin: Warm dry with normal skin turgor. Normal color with no rashes, no lesions, and no evidence of cellulitis. Neurologic examination: Power 5/5 throughout, sensation intact throughout Psych: Awake, alert, orientated to person, place and time DATA: Diagnostic tests reviewed for today's visit: CBC, Coags, BMP, Mg, Phos Recent Labs 12/19/24 0530 12/19/24 0430 12/18/24 0728 WBC -- 5.07 5.16 HB -- 10.5* 10.7* HCT -- 32.4* 33.6* PLT -- 260 271 NA -- 133* 133* K 4.4 -- 4.3 CHLOR -- 101 102 CO2 -- 24 25 BUN -- 14 10 CREAT -- 0.72 0.75 GLUC -- 97 107* CA -- 8.9 9.5 MG -- 1.8 1.6 P -- 3.9 3.7 Assessment/Plan : This is a 59-year-old woman past medical history of chronic hypoxic respiratory failure on 2 L of oxygen at baseline was unable to wear oxygen because of lack of insurance due to COPD-never having PFTs was never smoker with longstanding asthma on Symbicort 2 puffs does not 4 birds at home and on 2 dogs. Currently being evaluated for suspected hypersensitivity pneumonitis either related to bird exposure or mold. Pulmonary on board evaluating patient. Acute on chronic hypoxic respiratory failure Hypersensitivity pneumonitis? + Hypoxia and dyspnea on exertion Will cont Supplemental O2>>Patient on 5L O2. Will wean as tolerated. Expanded respiratory panel in process COVID-19, influenza A/B and RSV negative + Positive urine Legionella Procalcitonin: 0.08 VBG on presentation: 7.39/pCO2: 41 bicarb: 25 BNP: 169 Pulmonary evaluated patient being worked up for hypersensitive pneumonitis Will follow-up ILD serologies, ESR CRP, HIV and hepatitis panel Ig HP panel, bird fanciers panel, BLANCA (was 1:160, speckled pattern, in 2020), ANCA are ordered/pending Pulmonary recommending bronchoscopy with BAL on Thursday to rule out infectious disease however patient would like to leave before then this can be completed outpatient Will require repeat echo outpatient Continue ceftriaxone tomorrow every 24 hourly Continue doxycycline 100 mg p.o. twice daily Continue Tessalon Perle 100 mg p.o. 3 times daily Continue guaifenesin 1200 mg p.o. every 12 hours Patient to follow-up with Dr. Montoya in 2 to 4 weeks post discharge Not medically optimized 6-minute walk test completed patient requiring 6 L of ambulation will hold discharge for an additional day or 2 Lower extremity swelling rule out DVT lower extremity Doppler rule out DVT: Negative for DVT HLD Continue atorvastatin 20 mg p.o. at bedtime Diabetes type 2 R-ISS Diabetic diet Hypoglycemic corrective measures Hypothyroidism Continue levothyroxine 200 mcg p.o. daily HTN Continue valsartan 160 mg p.o. daily Diet: Orders Placed This Encounter DIET HEART HEALTHY Standing Status: Standing Number of Occurrences: 1 Heart Healthy: 4 GM SODIUM (LOW SAT FAT) VTE Prophylaxis: VTE prophylaxis appropriate Code Status: Code Status: Full Code Plan of care discussed with Provider, RN, Patient Disclaimer This dictation was created using voice recognition software. Phonetic and/or minor grammatical errors may exist. SIGNATURE: Hector Begum MD PATIENT NAME: Jesus Zepeda DATE: December 19, 2024 TIME: 4:41 PM This note was created using voice recognition software and is inherently subject to errors including those of syntax and sound alike substitutions which may have escaped proofreading. In such instances, original meaning may be extrapolated by cont (more content not included)... 12-19-2024 Note HNO ID: [id number] Author: KURTIS DOWELL RN Service: Care Management Author Type: Registered Nurse Type: Care Mgt Progress Note Filed: 12/19/2024 13:18 Note Text: CARE MANAGEMENT PROGRESS NOTE SERVICE DATE: 12/19/2024 SERVICE TIME: 1157 LOS: 3 days IMM Follow Up Copy Given: Yes Copy given to:: Patient Method: In Person SIGNATURE: Kurtis Dowell RN PATIENT NAME: Jesus Zepeda DATE: December 19, 2024 TIME: 1:18 PM 12-19-2024 Note HNO ID: [id number] Author: KURTIS DOWELL RN Service: Care Management Author Type: Registered Nurse Type: Care Mgt Progress Note Filed: 12/19/2024 14:16 Note Text: CARE MANAGEMENT PROGRESS NOTE SERVICE DATE: 12/19/2024 SERVICE TIME: 9:21 AM LOS: 3 days Chart reviewed. Patient admitted from home for hypoxia, acute respiratory failure. Pulm consulted. Desat ordered. Bronchoscopy and RHC possibly needed but can be done outpatient per documentation. Patient on 3L NC (No baseline), IVAB. Patient resides home alone with 2 dogs and 4 birds in a trailer. Patient functionally independent, drives. Will have ride on dc. Patient current with PCP listed on file. Plan home, pending desat. CM monitoring for o2 needs. [employer] is FOC. ___ Desat requiring 3L rest and 6 with exertion so no dc planned today. SIGNATURE: Kurtis Dowell RN PATIENT NAME: Jesus Zepeda DATE: December 19, 2024 TIME: 9:21 AM 12-18-2024 Note HNO ID: [id number] Author: HECTOR BEGUM MD Service: Hospital Medicine Author Type: Physician Type: Progress Notes Filed: 12/18/2024 13:57 Note Text: DEPARTMENT OF HOSPITAL MEDICINE PROGRESS NOTE SERVICE DATE: 12/18/2024 SERVICE TIME: 12:55 PM Hospital Medicine/Primary Attending: Hector Begum MD PRIMARY CARE PHYSICIAN: Barak Tiwari MD Readmission: Highest Readmission Risk Score: 19 Subjective : Patient seen and examined by me at bedside today, endorsed that she is feeling slightly better. Currently on 97% on 5L. Objective BP 100/53 Pulse 58 Temp (Src) 98.4 (Oral) Resp 17 Ht 5' 5 (1.65m) Wt 214 lb 8.1 oz (97.3kg) SpO2 97% LMP 03/21/2005 BMI 35.70 kg/(m2). O2 Therapy: Room Air, Liters (Numeric Only): 5.0 PHYSICAL EXAM: Constitutional: in no obvious cardiopulmonary or painful distress. Acyanotic, anicteric, afebrile Head/Face: Normocephalic, atraumatic. CVS: S1, S2, RRR, No murmurs, no rubs or gallops Respiratory: Air entry equal bilaterally, breath sounds clear, no Creps no rhonchi Abdomen: Soft nontender, nondistended, no masses, no palpable hepatosplenomegaly, bowel sounds normal Extremities: No edema, no cyanosis. Skin: Warm dry with normal skin turgor. Normal color with no rashes, no lesions, and no evidence of cellulitis. Neurologic examination: Power 5/5 throughout, sensation intact throughout Psych: Awake, alert, orientated to person, place and time DATA: Diagnostic tests reviewed for today's visit: CBC, Coags, BMP, Mg, Phos Recent Labs 12/18/24 0728 12/16/24 1536 12/16/24 1047 WBC 5.16 4.70 5.93 HB 10.7* 10.8* 11.7 HCT 33.6* 34.5* 37.1 PLT 271 275 313 NA 133* 134* -- K 4.3 4.5 -- CHLOR 102 102 -- CO2 25 20* -- BUN 10 18 -- CREAT 0.75 0.79 -- GLUC 107* 112* -- CA 9.5 9.8 -- MG 1.6 -- -- P 3.7 -- -- Assessment/Plan : This is a 59-year-old woman past medical history of chronic hypoxic respiratory failure on 2 L of oxygen at baseline was unable to wear oxygen because of lack of insurance due to COPD-never having PFTs was never smoker with longstanding asthma on Symbicort 2 puffs does not 4 birds at home and on 2 dogs. Currently being evaluated for suspected hypersensitivity pneumonitis either related to bird exposure or mold. Pulmonary on board evaluating patient. Acute on chronic hypoxic respiratory failure Hypersensitivity pneumonitis? + Hypoxia and dyspnea on exertion Will cont Supplemental O2>>Patient on 5L O2. Will wean as tolerated. Expanded respiratory panel in process COVID-19, influenza A/B and RSV negative Procalcitonin: 0.08 VBG on presentation: 7.39/pCO2: 41 bicarb: 25 BNP: 169 Pulmonary evaluated patient being worked up for hypersensitive pneumonitis Will follow-up ILD serologies, ESR CRP, HIV and hepatitis panel Pulmonary recommending bronchoscopy with BAL on Thursday to rule out infectious disease however patient would like to leave before then this can be completed outpatient Will require repeat echo outpatient Continue ceftriaxone tomorrow every 24 hourly Continue doxycycline 100 mg p.o. twice daily Continue Tessalon Perle 100 mg p.o. 3 times daily Continue guaifenesin 1200 mg p.o. every 12 hours Lower extremity swelling rule out DVT Pending lower extremity Doppler rule out DVT HLD Continue atorvastatin 20 mg p.o. at bedtime Diabetes type 2 R-ISS Diabetic diet Hypoglycemic corrective measures Hypothyroidism Continue levothyroxine 200 mcg p.o. daily HTN Continue valsartan 160 mg p.o. daily Diet: Orders Placed This Encounter DIET HEART HEALTHY Standing Status: Standing Number of Occurrences: 1 Heart Healthy: 4 GM SODIUM (LOW SAT FAT) DIET NPO Standing Status: Standing Number of Occurrences: 1 NPO Restrictions: FOR PROCEDURE NPO Restrictions: EXCEPT MEDS Encourage Clear Fluids: Until 5 am Feeding instructions for nursing: Reinforce with patient and family no solid food, including tube feeds, is allowed on the day of the surgery VTE Prophylaxis: VTE prophylaxis appropriate Code Status: Code Status: Full Code Plan of care discussed with Provider, RN, Patient Disclaimer This dictation was created using voice recognition software. Phonetic and/or minor grammatical errors may exist. SIGNATURE: Hector Begum MD PATIENT NAME: Jesus Zepeda DATE: December 18, 2024 TIME: 12:55 PM This note was created using voice recognition software and is inherently subject to errors including those of syntax and sound alike substitutions which may have escaped proofreading. In such instances, original meaning may be extrapolated by contextual derivation. The time of this note does not reflect the time I saw the patient but the time that this note was written. 12-18-2024 Note HNO ID: [id number] Author: LINA OLSON RN Service: Care Management Author Type: Registered Nurse Type: Care Mgt Initial Assessment Filed: 12/18/2024 12:48 Note Text: CARE MANAGEMENT: ASSESSMENT AND DISCHARGE PLAN SERVICE DATE: December 18, 2024 SERVICE TIME: 12:41 PM PCP: Barak Tiwari MD Primary Contact: Extended Emergency Contact Information Primary Emergency Contact: Gracie Obrien Mobile Relation: Daughter Secondary Emergency Contact: Danny Zepeda Mobile Relation: Son Admission Status: Inpatient Insurance Provider[facility] Discharge Planning requested by: Per Department Practice Potential Transition Plans Home Advance Directives Current Advance Directive: None Workers Compensation Adjuster Attempted to Assist with AD Completion: Yes Action: Education Provided Current Living Arrangements and Support Lives with: Alone Type of Residence: Private Residence (Apartment or Condo) Support: Children, Family members, Friends/neighbors How do you manage to accomplish the following: Independent: Ambulation, Bathe/Shower, Dress, Meals/Meal Prep, Going to the bathroom, Medication Management, Transportation to appointments/community Current Services/Equipment Current Post-Acute Service(s): None Discharge Planning Patient Goal(s): Be able to go home, General wellness [place] Explained: [place] Given: No Reason Not Given: No placements necessary Are you interested in bedside delivery of your medications? No Discharge Planning Participant(s): Patient Patient/Family Comments: Caregiver Assessment: Caregiver is ready, willing and able to meet the patient's needs as recommended by the inter-professional team: No Caregiver needed Transport at Discharge: Transportation Arrangements: Car Needs Prior to Discharge: Needs Prior to Discharge: Other: See Comment, IV Antibiotics, Procedure, Desat Study, Oxygen Set-up, To Be Determined (Lab values, breathing treatments) Procedure Needed: Possible bronchoscopy and RHC, ECHO, Intimate Partner Violence We have begun to talk to patients about safe and healthy relationships because it can have a large impact on your health. Do you feel safe around your partner or ex-partner?: Yes Food Insecurity Within the past 12 months, you worried that your food would run out before you got the money to buy more.: Never true Within the past 12 months, the food you bought just didn't last and you didn't have money to get more.: Never true Transportation Needs In the past 12 months, has lack of transportation kept you from medical appointments or from getting medications?: No In the past 12 months, has lack of transportation kept you from meetings, work, or from getting things needed for daily living?: No Housing Stability In the last 12 months, was there a time when you were not able to pay the mortgage or rent on time?: No At any time in the past 12 months, were you homeless or living in a detention (including now)?: No Utilities In the past 12 months has the [employer], gas, oil, or water [employer] threatened to shut off services in your home?: No Social Information Financial Resources: Retired Post-Acute Discharge Plan: Chart reviewed. Pt transferred from [facility] for further evaluation of hypoxia. Pulmonology consulted. Receiving MALAIKA. Extensive lab values, ECHO ordered. Possible RHC, bronchoscopy to be completed. Pt is currently on O2 5-6L NC, RA is baseline. Pt reports to CM she lives alone, is independent with ADL's, and drives. Denies use current use of DME. States [employer] as DME provider choice if needed. AD declined. She is established with Dr Tiwari and is seen every 3-6 months. Has medical and prescription insurance coverage. Denies any hardships with obtaining her medications and food. Pt plans to return home once medically cleared. States she will have a ride. Watch for need of desat study. CM to follow and assist with needs. SIGNATURE: Lina Olson RN PATIENT NAME: Jesus Zepeda DATE: December 18, 2024 TIME: 12:41 PM 12-17-2024 Note HNO ID: [id number] Author: HECTOR BEGUM MD Service: Hospital Medicine Author Type: Physician Type: Progress Notes Filed: 12/17/2024 13:55 Note Text: DEPARTMENT OF HOSPITAL MEDICINE PROGRESS NOTE SERVICE DATE: 12/17/2024 SERVICE TIME: 1:48 PM Hospital Medicine/Primary Attending: Hector Begum MD PRIMARY CARE PHYSICIAN: Barak Tiwari MD Readmission: Highest Readmission Risk Score: 19 Subjective : Patient seen and examined by me at bedside sitting at edge of the bed endorsing that she would like to be discharged to go home to dialysis. Currently on 4 L saturating 91%. Pulmonary evaluated patient today. Objective BP 104/58 Pulse 62 Temp (Src) 97.5 (Oral) Resp 17 Ht 5' 5 (1.65m) Wt 212 lb 11.9 oz (96.5kg) SpO2 91% LMP 03/21/2005 BMI 35.40 kg/(m2). O2 Therapy: Nasal Cannula, Liters (Numeric Only): 4.0 PHYSICAL EXAM: Constitutional: in no obvious cardiopulmonary or painful distress. Acyanotic, anicteric, afebrile Head/Face: Normocephalic, atraumatic. CVS: S1, S2, RRR, No murmurs, no rubs or gallops Respiratory: Air entry equal bilaterally, breath sounds clear, no Creps no rhonchi Abdomen: Soft nontender, nondistended, no masses, no palpable hepatosplenomegaly, bowel sounds normal Extremities: No edema, no cyanosis. Skin: Warm dry with normal skin turgor. Normal color with no rashes, no lesions, and no evidence of cellulitis. Neurologic examination: Power 5/5 throughout, sensation intact throughout Psych: Awake, alert, orientated to person, place and time DATA: Diagnostic tests reviewed for today's visit: CBC, Coags, BMP, Mg, Phos Recent Labs 12/16/24 1536 12/16/24 1047 WBC 4.70 5.93 HB 10.8* 11.7 HCT 34.5* 37.1 PLT 275 313 NA 134* -- K 4.5 -- CHLOR 102 -- CO2 20* -- BUN 18 -- CREAT 0.79 -- GLUC 112* -- CA 9.8 -- Assessment/Plan : This is a 59-year-old woman past medical history of chronic hypoxic respiratory failure on 2 L of oxygen at baseline was unable to wear oxygen because of lack of insurance due to COPD-never having PFTs was never smoker with longstanding asthma on Symbicort 2 puffs does not 4 birds at home and on 2 dogs. Currently being evaluated for suspected hypersensitivity pneumonitis either related to bird exposure or mold. Pulmonary on board evaluating patient. Acute on chronic hypoxic respiratory failure Hypersensitivity pneumonitis? + Hypoxia and dyspnea on exertion Expanded respiratory panel in process COVID-19, influenza A/B and RSV negative Procalcitonin: 0.08 VBG on presentation: 7.39/pCO2: 41 bicarb: 25 BNP: 169 Pulmonary evaluated patient being worked up for hypersensitive pneumonitis Will follow-up ILD serologies, ESR CRP, HIV and hepatitis panel Pulmonary recommending bronchoscopy with BAL on Thursday to rule out infectious disease however patient would like to leave before then this can be completed outpatient Will require repeat echo outpatient Continue ceftriaxone tomorrow every 24 hourly Continue doxycycline 100 mg p.o. twice daily Continue Tessalon Perle 100 mg p.o. 3 times daily Continue guaifenesin 1200 mg p.o. every 12 hours Lower extremity swelling rule out DVT Pending lower extremity Doppler rule out DVT HLD Continue atorvastatin 20 mg p.o. at bedtime Diabetes type 2 R-ISS Diabetic diet Hypoglycemic corrective measures Hypothyroidism Continue levothyroxine 200 mcg p.o. daily HTN Continue valsartan 160 mg p.o. daily Diet: Orders Placed This Encounter DIET HEART HEALTHY Standing Status: Standing Number of Occurrences: 1 Heart Healthy: 4 GM SODIUM (LOW SAT FAT) VTE Prophylaxis: VTE prophylaxis appropriate Code Status: Code Status: Full Code Plan of care discussed with Provider, RN, Patient Disclaimer This dictation was created using voice recognition software. Phonetic and/or minor grammatical errors may exist. SIGNATURE: Hector Begum MD PATIENT NAME: Jesus Zepeda DATE: December 17, 2024 TIME: 1:48 PM This note was created using voice recognition software and is inherently subject to errors including those of syntax and sound alike substitutions which may have escaped proofreading. In such instances, original meaning may be extrapolated by contextual derivation. The time of this note does not reflect the time I saw the patient but the time that this note was written. 12-16-2024 Note SARS-COV-2 (AGENT OF COVID-19) RNA: Not detected INFLUENZA A RNA: Not detected INFLUENZA B RNA: Not detected RESPIRATORY SYNCYTIAL VIRUS (RSV) RNA: Not detected [facility] Comment on above: Performed By: #### [id number] ####[facility] [id number] [place] [address] [place] 12-16-2024 Respiratory pathogens DNA and RNA 12b panel CARLTON+probe (Unsp spec) SARS-COV-2 (AGENT OF COVID-19) RNA: Not detected INFLUENZA A RNA: Not detected INFLUENZA B RNA: Not detected RESPIRATORY SYNCYTIAL VIRUS (RSV) RNA: Not detected HUMAN METAPNEUMOVIRUS (HMPV) RNA: Not detected HUMAN RHINOVIRUS/ENTEROVIRUS RNA: Not detected ADENOVIRUS DNA: Not detected PARAINFLUENZA 1 RNA: Not detected PARAINFLUENZA 2 RNA: Not detected PARAINFLUENZA 3 RNA: Not detected PARAINFLUENZA 4 RNA: Not detected CORONAVIRUS 229E RNA: Not detected CORONAVIRUS OC43 RNA: Not detected CORONAVIRUS NL63 RNA: Not detected CORONAVIRUS HKU1 RNA: Not detected CHLAMYDIA PNEUMONIAE DNA: Not detected MYCOPLASMA PNEUMONIAE DNA: Not detected BORDETELLA PERTUSSIS DNA: Not detected BORDETELLA PARAPERTUSSIS DNA: Not detected Comment on above: Performed By: #### [id number] #### [facility] CLIA [id number] [address] [place] [address] OF [facility] 12-16-2024 Telephone encounter Note patient returned call and states that she will get ready and head to [facility] ER [facility] 12-16-2024 Miscellaneous Notes patient returned call and states that she will get ready and head to [facility] ER Patient is notified and willing to have scan today here of [place]. PSS attempted to schedule here and CT is currently down. [place] has no time available today. Called to [facility] and they state they are unable to find her insurance plan in their system leaving her out of network. Attempted to call patient back with information and had to leave voicemail. Is patient willing to go to a [facility] ER for work up? Her d dimer is extremely high. Can be indicative of clots. Make sure no worsening edema above her chronic baseline. If not, can do stat CT PE protocol for ruling out pe, needs done today Would need to hold aprumet for 48 hours after test If cannot schedule, to ER of choice and fax notes,echo and labs documented in this encounter [facility] 12-16-2024 Telephone encounter Note Patient is notified and willing to have scan today here of [place]. PSS attempted to schedule here and CT is currently down. [place] has no time available today. Called to [facility] and they state they are unable to find her insurance plan in their system leaving her out of network. Attempted to call patient back with information and had to leave voicemail. Is patient willing to go to a [facility] ER for work up? [facility] 12-16-2024 Telephone encounter Note Her d dimer is extremely high. Can be indicative of clots. Make sure no worsening edema above her chronic baseline. If not, can do stat CT PE protocol for ruling out pe, needs done today Would need to hold janumet for 48 hours after test If cannot schedule, to ER of choice and fax notes,echo and labs [facility] 12-16-2024 Telephone encounter Note Patient is notified. She will come in to have done this morning. [facility] 12-16-2024 Miscellaneous Notes Patient is notified. She will come in to have done this morning. Her echo is now showing moderate pulmonary hypertension. We had set her up with specialty appts in the past for this and she never went. Given her breathing issues and elevated bp in the blood supply and hx of pe. See if willing to do a dimer this am stat. If wont, would see if we can do a cta of chest acutely. documented in this encounter [facility] 12-16-2024 Telephone encounter Note Her echo is now showing moderate pulmonary hypertension. We had set her up with specialty appts in the past for this and she never went. Given her breathing issues and elevated bp in the blood supply and hx of pe. See if willing to do a dimer this am stat. If wont, would see if we can do a cta of chest acutely. [facility] 12-15-2024 History of Present illness Narrative Radiology Service Progress Note PATIENT NAME: Jesus Zepeda DATE OF SERVICE: December 15, 2024 TIME: 9:47 AM PATIENT IDENTITY VERIFICATION COMPLETED USING TWO (2) IDENTIFIERS: Name and Date of confirmed by patient verbally. FALL SCREENING: Has the patient had 2 falls in the last year or 1 fall with injury or currently using an Ambulatory Assistive Device (Walker, Cane, Wheelchair, Crutches, etc.)? No PATIENT GENDER DATA: Assigned female at . status: : No status: NO. PATIENT RELEVANT IMPLANT DATA REVIEWED: Not Applicable PATIENT PRESENTS WITH AN IMPLANTABLE OR ATTACHED SCREW MACHINE OPERATOR: No RADIOLOGY DEPARTMENT: Mammography PERIPHERAL IV DATA: Not applicable SIGNED BY: Radha Leyva December 15, 2024 9:47 AM documented in this encounter [facility] 12-15-2024 Note [facility] 12-02-2024 Telephone encounter Note Called and left a voicemail for the Patient to call back and ask for a nurse to receive the providers message. Mulu Soto RN [facility] 12-02-2024 Miscellaneous Notes Called and left a voicemail for the Patient to call back and ask for a nurse to receive the providers message. Mulu Soto RN Ok do labs as below. Pt returned call and given provider's message below. Pt reports she takes her thyroid med every morning before breakfast and has not missed any doses. Pt reports she is taking ferrous sulfate 100 mg twice daily. Reports she doesn't eat much- no appetite- and when she looks at food it doesn't look good. Pt states she will go to the lab as soon as the weather cools off. Called and left a voicemail for the Patient to call back and ask for a nurse to receive the providers message. Mulu Soto RN Still anemic(did not keep follow up with gi.)- could be iron def vs anemia of chronic disease. Is she taking any iron still? Let me know Recheck labs in four weeks. Do ifobt. Her tsh is high but fti is ? Off. Can we add free t3 and free t4 to labs?missed any doses? Protein levels are high. Are we able to add spe? documented in this encounter [facility] 12-02-2024 Telephone encounter Note Ok do labs as below. [facility] 12-02-2024 Telephone encounter Note Pt returned call and given provider's message below. Pt reports she takes her thyroid med every morning before breakfast and has not missed any doses. Pt reports she is taking ferrous sulfate 100 mg twice daily. Reports she doesn't eat much- no appetite- and when she looks at food it doesn't look good. Pt states she will go to the lab as soon as the weather cools off. [facility] 12-01-2024 Telephone encounter Note Called and left a voicemail for the Patient to call back and ask for a nurse to receive the providers message. Mulu Soto RN [facility] 12-01-2024 Telephone encounter Note Still anemic(did not keep follow up with gi.)- could be iron def vs anemia of chronic disease. Is she taking any iron still? Let me know Recheck labs in four weeks. Do ifobt. Her tsh is high but fti is ? Off. Can we add free t3 and free t4 to labs?missed any doses? Protein levels are high. Are we able to add spe? [facility] 11-30-2024 Note [facility] 10-20-2024 Instructions Mariana Encarnacion APRN.VEHICLE AND EQUIPMENT CLEANER - 10/20/2024 11:58 AM EDT - Start taking guaifenesin (Mucinex) with a full glass of water to help loosen and clear the mucus when you cough. - Apply diclofenac gel (Voltaren) to the base of your thumb joint in the morning and at night to ease arthritis discomfort. - Avoid resting your elbows on hard surfaces to reduce pressure on the nerve and help improve your hand symptoms. - Expect your cough to keep improving over time; although it can last up to three months, it should gradually get better. - See Dr. Tiwari in November as scheduled documented in this encounter [facility] 10-20-2024 Note [facility] 10-20-2024 History of Present illness Narrative This is a 58 year old female who presents today with: Patient presents with: Pneumonia: Follow up HISTORY OF PRESENT ILLNESS: Jesus Zepeda is a 58 year old female. Patient presents with: Pneumonia: Follow up Jesus Zepeda is a 58-year-old female presenting for follow-up of a recent illness, with additional complaints of cough, heaviness in the legs, and hand pain. Cough: - Persistent cough with clear phlegm. - No associated fever or chills. - Cough causes gagging, especially at night and in the morning. Heaviness in Legs: - Reports a sensation of heaviness in the legs. Hand Pain: - Soreness in the right hand upon waking, radiating up the arm. - Pain localized to the thumb joint. - Using an arthritis rub with some relief. - Pain affects the ulnar side of the hand, involving the 4th and 5th fingers. Denies burning with urination PAST MEDICAL HISTORY: PAST MEDICAL HISTORY Diagnosis Date Abnormal Pap smear of cervix 09/2020 lgsil/+HPV 11/14 colp benign 08/18 ascus/+HPV 09/17 colp LGSIL Adjustment disorder with depressed mood Asthma (HCC) Chronic hypoxemic respiratory failure (HCC) COPD (chronic obstructive pulmonary disease) (HCC) Esophageal reflux Essential hypertension, benign Generalized anxiety disorder GI bleed History of transfusion HLD (hyperlipidemia) Hx of blood transfusion reaction Hypertension Kidney stones Menorrhagia Migraine without aura Morbid obesity (HCC) Nonspecific abnormal results of other endocrine function study 06/2004 Benign biopsy. Abnormally high thyroid globulin HARMONY (obstructive sleep apnea) Pulmonary emboli (HCC) 09/2013 Bilateral on CTA chest. Scleritis Type II or unspecified type diabetes mellitus without mention of complication, not stated as uncontrolled Uterine prolapse PAST SURGICAL HISTORY Procedure Laterality Date CARPAL TUNNEL Right 11/2015 CHOLECYSTECTOMY 11/15/2019 Dr. Ferguson COMBO ANT/POST COLPORR+ENTEROCELE 02/02/2024 CYSTOMETROGRAM 12/29/2023 CYSTOSCOPY 12/29/2023 EGD 03/07/2020 Dr Ferguson THYROID BIOPSY US 11/2015 THYROIDECTOMY TOTAL/COMPLETE Left 12/13/2018 Dr Ferguson TOTAL THYROID LOBECTOMY UNI W/WO ISTHMUSECTOMY 01/15/2007 right TUBAL LIGATION 1988 VAGINAL HYSTERECTOMY 02/02/2024 XCAPSL CTRC RMVL INSJ IO LENS PROSTH W/O ECP Right 06/2015 Cataract Extraction with PC IOL XCAPSL CTRC RMVL INSJ IO LENS PROSTH W/O ECP Left 07/2015 Cataract Extraction with PC IOL ALLERGIES Latex, Prinivil [Lisinopril], and Zanaflex [Tizanidine Hcl] MEDICATIONS Current Outpatient Medications Medication Sig carvedilol (COREG) 25 mg tablet Take 0.5 tablets by mouth two times a day. SUMAtriptan (IMITREX) 50 mg tablet Take 1 tablet by mouth as needed for migraine headache (see administration instructions). sucralfate (CARAFATE) 1 gram tablet Take 1 tablet by mouth two times a day. albuterol HFA (PROVENTIL HFA, VENTOLIN HFA) 90 mcg/actuation inhaler Inhale 2 puffs as instructed every 6 hours as needed. budesonide-formoterol (SYMBICORT) 160-4.5 mcg/actuation inhaler Inhale 2 puffs as instructed two times a day. escitalopram oxalate (LEXAPRO) 10 mg tablet Take 1 tablet by mouth once daily. magnesium oxide (MAG-OX) 400 mg (241.3 mg magnesium) tablet Take 1 tablet by mouth once daily. levothyroxine (SYNTHROID) 200 mcg tablet Take 1 tablet by mouth daily before breakfast. valsartan (DIOVAN) 160 mg tablet Take 1 tablet by mouth once daily. atorvastatin (LIPITOR) 20 mg tablet Take 1 tablet by mouth once daily. For cholesterol. SITagliptin-metFORMIN (JANUMET) 50-1,000 mg per tablet Take 1 tablet by mouth two times a day with meals. iron bisgly,ps-FA-B-C#12-succ 65 mg-65 mg -1,000 mcg (24) tab Take by mouth two times a day. blood sugar diagnostic (BLOOD GLUCOSE TEST) test strip Test blood sugar(s) 4 times daily. Dx: Type 2 DM - Controlled E11.9 Insulin: Yes Lancets lancets Test blood sugar(s) 4 times daily. Dx: Type 2 DM - Controlled E11.9 Insulin: Yes fluorometholone (FML LIQUID FILM) 0.1 % ophthalmic suspension INSTILL 1 DROP IN BOTH EYES 1-2 TIMES PER DAY blood sugar diagnostic (BLOOD GLUCOSE TEST) test strip Test blood sugar(s) 4 times daily. Dx: Type 2 DM - Controlled E11.9 Insulin: Yes No current facility-administered medications for this visit. FAMILY HISTORY Problem Relation Age of Onset Hypertension Mother Diabetes Mother Thyroid Mother thyroidectomy other (heart murmur) Mother Heart Attack Father Diabetes Brother Hypertension Brother No Known Problems Brother Pneumothorax Maternal Grandmother No Known Problems Daughter No Known Problems Son Breast Cancer Maternal Aunt Metastatic to bone other (Other) Other No DVT or PE. Social History Tobacco Use Smoking status: Never Smokeless tobacco: Never Tobacco comments: FAther smoking in childhood home. Has lived with smoker in home, son quit about 2015. Vaping Use Vaping status: Never Used Substance Use Topics Alcohol use: Not Currently Drug use: Never REVIEW OF SYSTEMS Constitutional: (-) fever, (-) chills Respiratory: (+) cough, (+) clear sputum Gastrointestinal: (+) nausea, (-) vomiting , denies diarrhea Musculoskeletal: (+) heaviness in legs, (+) right hand pain, (+) right thumb pain EXAM: BP 136/74 Pulse 70 Temp 37.3 C (99.1 F) (Left Tympanic) Wt 100.7 kg (222 lb) LMP 03/21/2005 SpO2 (!) 89% BMI 41.91 kg/m PHYSICAL EXAM: GENERAL: NAD, alert and oriented SKIN: unremarkable, no rash or skin lesions. FOrearms red from sunburn. HEAD: normocephalic LUNGS: Clear to auscultation bilaterally, no wheezes/rhonchi/rales. HEART: Regular rate and rhythm, no murmurs. No ectopy. EXTREMITIES: Normal, No deformities, No skin discoloration, No edema. NEURO: Awake, alert and oriented x3, cranial nerves II-XII grossly intact, lumbering gait, no involuntary motions LABS: 1. Bacterial pneumonia (J15.9) - Lungs auscultated clear; no fever or chills reported. Persistent cough with clear sputum production, no extreme fatigue, but heaviness in the legs noted. - Educated patient that cough may persist for up to 3 months but should gradually improve. - Recommended Mucinex (guaifenesin) to liquefy secretions, advised to take with a glass of water. - Patient reports improvement in energy levels; continue monitoring symptoms. Discussed treatment plan and patient voices understanding. Patient's questions answered appropriately. Medications and potential side effects were discussed and patient voices understanding. Return to the office as scheduled or as needed for worsening/no improvement. Mariana Encarnacion APRN.CNP documented in this encounter [facility] 10-06-2024 Instructions Mariana Encarnacion APRN.CNP - 10/06/2024 2:33 PM EDT - You have pneumonia in the lower parts of both lungs. - Begin doxycycline twice a day for 10 days; prescription has been sent to your pharmacy. - Begin Augmentin twice a day for 10 days; prescription has been sent to your pharmacy. - If your symptoms worsen instead of improving, go to the emergency room. - If you feel short of breath at any time, go to the emergency room. - Schedule a follow-up visit in about 10 days to 2 weeks to check your progress. documented in this encounter [facility] 10-06-2024 Note [facility] 10-06-2024 History of Present illness Narrative This is a 58 year old female who presents today with: Patient presents with: Cough: Productive cough for 2 weeks Wheezing HISTORY OF PRESENT ILLNESS: Jesus Zepeda is a 58 year old female. Patient presents with: Cough: Productive cough for 2 weeks Wheezing Jesus Zepeda is a 58-year-old female presenting with cough, sinus headache, and fatigue. Cough: - Onset: 1-2 weeks ago. - Productive cough with light green sputum. - Occasional chest tightness and wheezing. - Using nasal spray with some relief. - Denies fever, chills, nausea, or emesis. Sinus Headache: - Onset: 2 days ago. - Pain localized to the back of the neck. - Associated with sinus pressure and head congestion, particularly at night. - Describes a dry, scratchy throat; denies sore throat. - Reports a severe episode of pain from the right side of the neck to the jaw. - Denies recent exposure to sick contacts. Fatigue: - Jesus reports feeling really tired. - Describes sleeping too hard and wanting to return to bed after waking. - Notes this level of fatigue is unusual for her. Migraine Headaches: - History of migraine headaches. - Pain typically on the side of the head and sometimes in the back of the neck. Diabetes Mellitus: - Denies recent hyperglycemia. PAST MEDICAL HISTORY: PAST MEDICAL HISTORY Diagnosis Date Abnormal Pap smear of cervix 09/2020 lgsil/+HPV 11/14 colp benign 08/18 ascus/+HPV 09/17 colp LGSIL Adjustment disorder with depressed mood Asthma (HCC) Chronic hypoxemic respiratory failure (HCC) COPD (chronic obstructive pulmonary disease) (HCC) Esophageal reflux Essential hypertension, benign Generalized anxiety disorder GI bleed History of transfusion HLD (hyperlipidemia) Hx of blood transfusion reaction Hypertension Kidney stones Menorrhagia Migraine without aura Morbid obesity (HCC) Nonspecific abnormal results of other endocrine function study 06/2004 Benign biopsy. Abnormally high thyroid globulin HARMONY (obstructive sleep apnea) Pulmonary emboli (HCC) 09/2013 Bilateral on CTA chest. Scleritis Type II or unspecified type diabetes mellitus without mention of complication, not stated as uncontrolled Uterine prolapse PAST SURGICAL HISTORY Procedure Laterality Date CARPAL TUNNEL Right 11/2015 CHOLECYSTECTOMY 11/15/2019 Dr. Ferguson COMBO ANT/POST COLPORR+ENTEROCELE 02/02/2024 CYSTOMETROGRAM 12/29/2023 CYSTOSCOPY 12/29/2023 EGD 03/07/2020 Dr Ferguson THYROID BIOPSY US 11/2015 THYROIDECTOMY TOTAL/COMPLETE Left 12/13/2018 Dr Ferguson TOTAL THYROID LOBECTOMY UNI W/WO ISTHMUSECTOMY 01/15/2007 right TUBAL LIGATION 1989 VAGINAL HYSTERECTOMY 02/02/2024 XCAPSL CTRC RMVL INSJ IO LENS PROSTH W/O ECP Right 06/2015 Cataract Extraction with PC IOL XCAPSL CTRC RMVL INSJ IO LENS PROSTH W/O ECP Left 07/2015 Cataract Extraction with PC IOL ALLERGIES Latex, Prinivil [Lisinopril], and Zanaflex [Tizanidine Hcl] MEDICATIONS Current Outpatient Medications Medication Sig carvedilol (COREG) 25 mg tablet Take 0.5 tablets by mouth two times a day. SUMAtriptan (IMITREX) 50 mg tablet Take 1 tablet by mouth as needed for migraine headache (see administration instructions). sucralfate (CARAFATE) 1 gram tablet Take 1 tablet by mouth two times a day. albuterol HFA (PROVENTIL HFA, VENTOLIN HFA) 90 mcg/actuation inhaler Inhale 2 puffs as instructed every 6 hours as needed. budesonide-formoterol (SYMBICORT) 160-4.5 mcg/actuation inhaler Inhale 2 puffs as instructed two times a day. escitalopram oxalate (LEXAPRO) 10 mg tablet Take 1 tablet by mouth once daily. magnesium oxide (MAG-OX) 400 mg (241.3 mg magnesium) tablet Take 1 tablet by mouth once daily. levothyroxine (SYNTHROID) 200 mcg tablet Take 1 tablet by mouth daily before breakfast. valsartan (DIOVAN) 160 mg tablet Take 1 tablet by mouth once daily. atorvastatin (LIPITOR) 20 mg tablet Take 1 tablet by mouth once daily. For cholesterol. SITagliptin-metFORMIN (JANUMET) 50-1,000 mg per tablet Take 1 tablet by mouth two times a day with meals. iron bisgly,ps-FA-B-C#12-succ 65 mg-65 mg -1,000 mcg (24) tab Take by mouth two times a day. blood sugar diagnostic (BLOOD GLUCOSE TEST) test strip Test blood sugar(s) 4 times daily. Dx: Type 2 DM - Controlled E11.9 Insulin: Yes Lancets lancets Test blood sugar(s) 4 times daily. Dx: Type 2 DM - Controlled E11.9 Insulin: Yes fluorometholone (FML LIQUID FILM) 0.1 % ophthalmic suspension INSTILL 1 DROP IN BOTH EYES 1-2 TIMES PER DAY blood sugar diagnostic (BLOOD GLUCOSE TEST) test strip Test blood sugar(s) 4 times daily. Dx: Type 2 DM - Controlled E11.9 Insulin: Yes No current facility-administered medications for this visit. FAMILY HISTORY Problem Relation Age of Onset Hypertension Mother Diabetes Mother Thyroid Mother thyroidectomy other (heart murmur) Mother Heart Attack Father Diabetes Brother Hypertension Brother No Known Problems Brother Pneumothorax Maternal Grandmother No Known Problems Daughter No Known Problems Son Breast Cancer Maternal Aunt Metastatic to bone other (Other) Other No DVT or PE. Social History Tobacco Use Smoking status: Never Smokeless tobacco: Never Tobacco comments: FAther smoking in childhood home. Has lived with smoker in home, son quit about 2016. Vaping Use Vaping status: Never Used Substance Use Topics Alcohol use: Not Currently Drug use: Never REVIEW OF SYSTEMS Constitutional: (+) fatigue, (-) fever, (-) chills Head: (+) headache Ears/Nose/Mouth/Throat: (+) sinus pressure, (+) nasal congestion, (+) nasal pain right side, (+) dry scratchy throat, (-) sore throat Neck: (+) neck pain Respiratory: (+) cough, (+) sputum production light green, (+) chest tightness, (+) wheezing Gastrointestinal: (-) nausea, (-) vomiting, (-) diarrhea, (-) constipation EXAM: BP 142/75 Pulse 75 Temp 36.5 C (97.7 F) Wt 103 kg (227 lb) LMP 03/21/2005 SpO2 (!) 88% BMI 42.86 kg/m PHYSICAL EXAM: GENERAL: NAD, alert and oriented SKIN: clammy, no rash or skin lesions. HEAD: normocephalic EARS: external ears normal, canals clear, TM's normal. Scar tissue noted in one ear, other ear with bulging. NOSE/SINUSES: Nares normal. Septum midline. Erythema notedbut smooth, no signs of infection. OROPHARYNX: lips, mucosa, and tongue normal, good dentition. No oral lesions noted. NECK: Supple, no lymphadenopathy, normal thyroid. LUNGS: Bilateral basilar crackles noted. Kyphosis- not sure if this isn't contributing to breathing troubles HEART: Regular rate and rhythm, no murmurs. No ectopy. NEURO: Awake, alert and oriented x3, cranial nerves II-XII grossly intact, normal gait, no involuntary motions LABS: ASSESSMENT/PLAN: 1. Pneumonia of both lower lobes due to other aerobic gram-negative bacteria (HCC) - ICD9: 482.83, ICD10: J15.69 - Bilateral lower lobe pneumonia confirmed on auscultation. - Initiated doxycycline BID for 10 days and Augmentin BID for 10 days. - Advised to seek immediate medical attention if symptoms worsen or if shortness of breath occurs. - Follow-up appointment scheduled in 10-14 days to reassess condition. Mariana Encarnacion APRN.VEHICLE AND EQUIPMENT CLEANER documented in this encounter [facility] 09-27-2024 Telephone encounter Note The patient has been identified by name and date of : Yes Caregiver verified no other encounters exist for this prescription request: Yes Caregiver confirmed with patient/requestor that no other refills are due, in the near future, with this provider at this time: Yes The last office visit in the department: 08/22/2024 Does the patient have a future office visit with this provider/department: Yes 12/07/2024 Requested Prescriptions Pending Prescriptions Disp Refills carvedilol (COREG) 25 mg tablet 30 tablet 5 Sig: Take 0.5 tablets by mouth two times a day. SUMAtriptan (IMITREX) 50 mg tablet 9 tablet 5 Sig: Take 1 tablet by mouth as needed for migraine headache (see administration instructions). sucralfate (CARAFATE) 1 gram tablet 60 tablet 5 Sig: Take 1 tablet by mouth two times a day. albuterol HFA (PROVENTIL HFA, VENTOLIN HFA) 90 mcg/actuation inhaler 1 each 5 Sig: Inhale 2 puffs as instructed every 6 hours as needed. budesonide-formoterol (SYMBICORT) 160-4.5 mcg/actuation inhaler 1 each 5 Sig: Inhale 2 puffs as instructed two times a day. Cortney Benavides LPN September 27, 2024 3:07 PM [facility] 09-27-2024 Miscellaneous Notes The patient has been identified by name and date of : Yes Caregiver verified no other encounters exist for this prescription request: Yes Caregiver confirmed with patient/requestor that no other refills are due, in the near future, with this provider at this time: Yes The last office visit in the department: 08/22/2024 Does the patient have a future office visit with this provider/department: Yes 12/07/2024 Requested Prescriptions Pending Prescriptions Disp Refills carvedilol (COREG) 25 mg tablet 30 tablet 5 Sig: Take 0.5 tablets by mouth two times a day. SUMAtriptan (IMITREX) 50 mg tablet 9 tablet 5 Sig: Take 1 tablet by mouth as needed for migraine headache (see administration instructions). sucralfate (CARAFATE) 1 gram tablet 60 tablet 5 Sig: Take 1 tablet by mouth two times a day. albuterol HFA (PROVENTIL HFA, VENTOLIN HFA) 90 mcg/actuation inhaler 1 each 5 Sig: Inhale 2 puffs as instructed every 6 hours as needed. budesonide-formoterol (SYMBICORT) 160-4.5 mcg/actuation inhaler 1 each 5 Sig: Inhale 2 puffs as instructed two times a day. Cortney Benavides LPN September 27, 2024 3:07 PM documented in this encounter [facility] 09-21-2024 Note [facility] 09-21-2024 History of Present illness Narrative Patient is identified through a medication adherence outreach initiative based on pharmacy claims data from: [facility] Medication Adherence Category: Diabetes Hypertension Statins First Review Attribution Status: Correct attribution Medication(s) Janumet 50-1000 mg Medication Status per portal/Epic Reconcile Dispense: Filled on time - On or before next fill date Date Filled (MM/DD): 08/31/24 due 09/01/24 Day Supply: 30 Medication Status per Profile Review: No issues per profile review Valsartan 160 mg Medication Status per portal/Epic Reconcile Dispense: Filled on time - On or before next fill date Date Filled (MM/DD): 08/31/24 due 09/01/24 Day Supply: 30 Medication Status per Profile Review: No issues per profile review Atorvastatin 20 mg Medication Status per portal/Epic Reconcile Dispense: Filled on time - On or before next fill date Date Filled (MM/DD): 08/31/24 due 09/01/24 Day Supply: 30 Medication Status per Profile Review: No issues per profile review Patient/provider appropriate for outreach? No Reason patient/provider not appropriate for outreach:Patient filled on time / no adherence concerns to be addressed [facility] CPhT [facility] Pharmacy Team documented in this encounter [facility] 08-22-2024 Note [facility] 08-05-2024 Note [facility] 08-05-2024 History of Present illness Narrative Patient is identified through a medication adherence outreach initiative based on pharmacy claims data from: [facility] Medication Adherence Category: Diabetes Hypertension Statins First Review Attribution Status: Correct Attribution Medication(s) Janumet 50mg-1000mg mg Medication Status per portal/Epic Reconcile Dispense: Filled late - Within 7 days after next fill date Date Filled (MM/DD): 08/02/24 due 07/31/24 Day Supply: 30 Medication Status per Profile Review: No issues per profile review Valsartan 160 mg Medication Status per portal/Epic Reconcile Dispense: Filled on time - On or before next fill date Date Filled (MM/DD): 08/02/24 due 08/01/24 Day Supply: 30 Medication Status per Profile Review: No issues per profile review Atorvastatin 20 mg Medication Status per portal/Epic Reconcile Dispense: Filled on time - On or before next fill date Date Filled (MM/DD): 08/02/24 due 08/02/24 Day Supply: 30 Medication Status per Profile Review: No issues per profile review Patient appropriate for outreach? No Reason patient not appropriate for outreach:Patient filled on time / no adherence concerns to be addressed [facility] C[facility] Pharmacy Team documented in this encounter [facility] 07-28-2024 Note [facility] 07-28-2024 History of Present illness Narrative Per Dr. Coleman, Jesus was provided with powerstep gel inserts, size 9, and instructed/educated in its application, wear, and care. All questions were answered, and patient was able to demonstrate competence with the necessary skills to utilize the above equipment. Shelly Montoya LPN Initial Office Visit Subjective: This 58 year old female presents to clinic for diabetic foot check. Patient has the following complaints: no complaints. Here to just make sure her feet are doing very well. Her feet are most important because she likes to get out and be active. Patient admits to being diabetic for 6 years now and states that their blood sugar was 120 mg/dL this AM. Patient -B/T/N in feet at this time. Patient -pain in legs when walking. No other pedal complaints at this time. No change in medications or medical history since last visit. PAIN EVALUATION No data found in the last 1 encounters. Hemoglobin A1C (%) Date Value 06/09/2024 5.8 09/08/2023 5.8 05/23/2022 5.8 12/18/2021 6.0 07/12/2021 6.1 10/01/2020 6.3 04/12/2020 6.1 07/13/2019 6.3 11/03/2018 6.1 02/01/2018 7.0 PCP: Barak Tiwari MD PAST MEDICAL HISTORY Diagnosis Date Abnormal Pap smear of cervix 09/2020 lgsil/+HPV 11/14 colp benign 08/18 ascus/+HPV 09/17 colp LGSIL Adjustment disorder with depressed mood Asthma (HCC) Chronic hypoxemic respiratory failure (HCC) COPD (chronic obstructive pulmonary disease) (HCC) Esophageal reflux Essential hypertension, benign Generalized anxiety disorder GI bleed History of transfusion HLD (hyperlipidemia) Hx of blood transfusion reaction Hypertension Kidney stones Menorrhagia Migraine without aura Morbid obesity (HCC) Nonspecific abnormal results of other endocrine function study 06/2004 Benign biopsy. Abnormally high thyroid globulin HARMONY (obstructive sleep apnea) Pulmonary emboli (HCC) 09/2013 Bilateral on CTA chest. Scleritis Type II or unspecified type diabetes mellitus without mention of complication, not stated as uncontrolled Uterine prolapse Current Outpatient Medications Medication Sig magnesium oxide (MAG-OX) 400 mg (241.3 mg magnesium) tablet Take 1 tablet by mouth once daily. levothyroxine (SYNTHROID) 200 mcg tablet Take 1 tablet by mouth daily before breakfast. SUMAtriptan (IMITREX) 50 mg tablet Take 1 tablet (50 mg) by mouth as needed for migraine headache (see administration instructions). valsartan (DIOVAN) 160 mg tablet Take 1 tablet by mouth once daily. fluticasone (FLONASE) 50 mcg/actuation nasal spray Use 2 Sprays in each nostril once daily as needed for cold/allergy symptoms. Rinse mouth after use. atorvastatin (LIPITOR) 20 mg tablet Take 1 tablet by mouth once daily. For cholesterol. carvedilol (COREG) 25 mg tablet Take 0.5 tablets by mouth two times a day. sucralfate (CARAFATE) 1 gram tablet Take 1 tablet by mouth two times a day. SITagliptin-metFORMIN (JANUMET) 50-1,000 mg per tablet Take 1 tablet by mouth two times a day with meals. budesonide-formoterol (SYMBICORT) 160-4.5 mcg/actuation inhaler Inhale 2 Puffs as instructed two times a day. iron bisgly,ps-FA-B-C#12-succ 65 mg-65 mg -1,000 mcg (24) tab Take by mouth two times a day. albuterol HFA (PROVENTIL HFA, VENTOLIN HFA) 90 mcg/actuation inhaler Inhale 2 Puffs as instructed every 6 hours as needed. blood sugar diagnostic (BLOOD GLUCOSE TEST) test strip Test blood sugar(s) 4 times daily. Dx: Type 2 DM - Controlled E11.9 Insulin: Yes Lancets lancets Test blood sugar(s) 4 times daily. Dx: Type 2 DM - Controlled E11.9 Insulin: Yes fluorometholone (FML LIQUID FILM) 0.1 % ophthalmic suspension INSTILL 1 DROP IN BOTH EYES 1-2 TIMES PER DAY blood sugar diagnostic (BLOOD GLUCOSE TEST) test strip Test blood sugar(s) 4 times daily. Dx: Type 2 DM - Controlled E11.9 Insulin: Yes No current facility-administered medications for this visit. ALLERGIES Allergen Reactions Latex Itching Prinivil [Lisinopri* Cough Zanaflex [Tizanidin* Shortness of Breath PAST SURGICAL HISTORY Procedure Laterality Date CARPAL TUNNEL Right 11/2015 CHOLECYSTECTOMY 11/15/2019 Dr. Ferguson COMBO ANT/POST COLPORR+ENTEROCELE 02/02/2024 CYSTOMETROGRAM 12/29/2023 CYSTOSCOPY 12/29/2023 EGD 03/07/2020 Dr Ferguson THYROID BIOPSY US 11/2015 THYROIDECTOMY TOTAL/COMPLETE Left 12/13/2018 Dr Ferguson TOTAL THYROID LOBECTOMY UNI W/WO ISTHMUSECTOMY 01/15/2007 right TUBAL LIGATION 1989 VAGINAL HYSTERECTOMY 02/02/2024 XCAPSL CTRC RMVL INSJ IO LENS PROSTH W/O ECP Right 06/2015 Cataract Extraction with PC IOL XCAPSL CTRC RMVL INSJ IO LENS PROSTH W/O ECP Left 07/2015 Cataract Extraction with PC IOL FAMILY HISTORY Problem Relation Age of Onset Hypertension Mother Diabetes Mother Thyroid Mother thyroidectomy other (heart murmur) Mother Heart Attack Father Diabetes Brother Hypertension Brother No Known Problems Brother Pneumothorax Maternal Grandmother No Known Problems Daughter No Known Problems Son Breast Cancer Maternal Aunt Metastatic to bone other (Other) Other No DVT or PE. Social History Tobacco Use Smoking status: Never Smokeless tobacco: Never Tobacco comments: FAther smoking in childhood home. Has lived with smoker in home, son quit about 2015. Vaping Use Vaping status: Never Used Substance Use Topics Alcohol use: Not Currently Drug use: Never REVIEW OF SYSTEMS GENERAL: Negative for Malaise, significant weight loss, fever RESPIRATORY: Negative for cough, wheezing and shortness of breath CARDIOVASCULAR: Negative for chest pain, leg swelling and palpitations GI: Negative for abdominal discomfort, blood in stools or black stools and change in bowel habits : Negative for dysuria, frequency and incontinence MUSCULOSKELETAL: Negative for joint pain or swelling, back pain, and muscle pain. SKIN: Negative for lesions, rash, and itching. HEMATOLOGY/LYMPHOLOGY Negative for prolonged bleeding, bruising easily, and swollen nodes. ENDOCRINE: Negative for cold or heat intolerance, polyuria, polydipsia and goiter. NEURO: negative The remainder of the review of systems is noncontributory. Objective: Patient presents to clinic ambulating in [facility] Constitutional: Pt is a well developed 58 year old female who is alert, oriented, cooperative and in no apparent distress. Eyes: Following during examination. No redness or drainage. Respiratory: RR normal and nonlabored. Even breathing. No evidence of distress. Psychology: Patient is engaged during conversation. Normal affect and mood. Does not appear depressed or anxious. Vasc: DP and PT pulses are palpable bilateral. CFT is less than 5 seconds bilateral. Skin temperature is warm to warm proximal to distal bilateral. There is swelling of b/l lower extremity. Hair growth present. Neuro: Protective sensation is intact to the foot and toes when tested with the 5.07 SWM bilateral. Vibratory sensation is intact at the hallux bilateral. + Significant neurological defecits. Derm: Inspection and palpation performed. Nails 1-5 b/l are normal in length and thickness. Skin is of normal turgor and texture. Hyperkeratosis noted to right 5th metatarsal. NO ulcerations, scars, verruca or other lesions noted. Ortho: Ankle joint DF is full with the knee extended and full with knee flexed. No pain or crepitus noted. STJ, MTJ ROM are full and free of pain or crepitus. Muscle strength is 5/5 for dorsiflexors, plantarflexors, inverters, everters. Digital deformities include none. Assessment: (E11.40, Z79.4) Type 2 diabetes mellitus with diabetic neuropathy, with long-term current use of insulin ([facility]) (primary encounter diagnosis) (I89.0) Lymphedema (Q82.8) Porokeratosis Plan: 1. Patient was seen and evaluated. 2. Patient was instructed on the continued importance of diabetic foot care along with proper diet and keeping their blood sugar under control to prevent complications. Instructions given both oral and written. I stressed the importance of avoiding barefoot walking, wearing good shoes and inspection of feet. I discussed how this patient suffers from neuropathy and that it is important that she monitor for any open wounds. If she develops any issues, she is to contact our office immediately and we will have them seen. 3. Discussed swelling in legs. Continue with compression 4. Discussed porokeratosis of right foot. This was sharply debrided with 15 blade. Tca applied under occlusion. Can use gel inserts and donut hole padding. Discussed risk of recurrence. 5. Follow-up in one year or sooner if problems arise Rachel Coleman DPM Patient presents with: Left Foot - Diabetic Foot Care Right Foot - Diabetic Foot Care AMB ROOMING INTAKE FLOWSHEET DATA Risk Screening Do you have concerns about personal safety or safety in the home?: No Patient here for diabetic foot care. Blood sugar was 120 this morning. documented in this encounter [facility] 07-28-2024 Instructions Rachel Coleman - 07/28/2024 10:38 AM EDT Diabetes Foot Care Instructions When you have diabetes, proper foot care is very important. Poor foot care may lead to amputation of a foot or leg. As a person with diabetes, you are more vulnerable to foot problems, because diabetes can damage your nerves and reduce blood flow to your feet. Here are some diabetes foot care tips to follow: Wash and Dry Your Feet Daily Use mild soaps Use warm water Pat your skin dry; do not rub. Thoroughly dry your feet. After washing, use lotion on your feet to prevent cracking. Do not put lotion between your toes. Examine Your Feet Each Day Check the tops and bottoms of your feet. Have someone else look at your feet if you cannot see them. Check for dry, cracked skin. Look for blisters, cuts, scratches, or other sores. Check for redness, increased warmth, or tenderness when touching any area of your feet. Check for ingrown toenails, corns, and calluses. If you get a blister or sore from your shoes, do not pop it. Apply a bandage and wear a different pair of shoes. Take Care of Your Toenails Cut toenails after bathing, when they are soft. Cut toenails straight across and smooth with a nail file. Avoid cutting into the corners of toes. Do not cut cuticles. If you have neuropathy (or decreased sensation in your feet) a training associate should always cut your toenails. Be Careful When Exercising Walk and exercise in comfortable shoes. Do not exercise when you have open sores on your feet. Protect Your Feet With Shoes and Socks Never go barefoot. Always protect your feet by wearing shoes or hard-soled slippers or footwear. Avoid shoes with high heels and pointed toes. Avoid shoes that expose your toes or heels (such as open-toed shoes or sandals). These types of shoes increase your risk for injury and potential infections. Try on new footwear with the type of socks you usually wear. Do not wear new shoes for more than an hour at a time. Change your socks daily. Look and feel inside your shoes before putting them on to make sure there are no foreign objects or rough areas. Avoid tight socks. Wear natural-fiber socks (cotton, wool, or a cotton-wool blend). Wear special shoes if your health care provider recommends them. Wear shoes/boots that will protect your feet from various weather conditions (cold, moisture, etc.). Make sure your shoes fit properly. If you have neuropathy (nerve damage), you may not notice that your shoes are too tight. Perform the footwear test described below. Footwear Test Use this simple test to see if your shoes fit correctly: Stand on a piece of paper. (Make sure you are standing and not sitting, because your foot changes shape when you stand.) Trace the outline of your foot. Trace the outline of your shoe. Compare the tracings: Is the shoe too narrow? Is your foot crammed into the shoe? The shoe should be at least 1/2 inch longer than your longest toe and as wide as your foot. Proper Shoe Choices The following types of shoes are best for people with diabetes Closed toes and heels Leather uppers without a seam inside At least 1/2 inch extra space at the end of your longest toe Inside of shoe should be soft with no rough areas Outer sole should be made of stiff material Shoes should be at least as wide as your feet Tips for Foot Care in Diabetes Don't wait to treat a minor foot problem if you have diabetes. Follow your health care provider's guidelines and first aid guidelines. Report foot injuries and infections to your health care provider immediately. Check water temperature with your elbow, not your foot. Do not use a heating pad on your feet. Do not cross your legs. Do not self-treat your corns, calluses, or other foot problems. Go to your health care provider or training associate to treat these conditions. Powerstep Original Full length. Can purchase at [facility] [employer] and boots,shoes and more here in [place], [employer] in [place] or [place]. Also can find in [employer] in [facility]. Powersteps can also be purchased online, starting around $45.00 If you have a metatarsal or dancer pad for your feet apply the pad directly to the insole so you can interchange between your shoes. Find a shoe with a removable insole and take this out and replace with your powerstep insole. Always bring powersteps with you when shopping for shoes so that you can make sure that everything fits well together Trichloroacetic acid (TCA) has been applied to the plantar warts. Rinse off in 12 hours and keep clean and dry. May bathe and shower normally starting the day after treatment The area is expected to burn and blister in about 1-3 days, if painful soak in plain, cool water. If blistered, you may drain the blister with a clean, STERILIZED needle and apply OTC antibiotic ointment and band aid to area. Repeat 2-3 times daily as needed. Tylenol or Aleve as needed for pain, provided you have no allergies to either of these. Keep scheduled follow up appointment to have wart(s) re-evaluated and/or additional treatments. documented in this encounter [facility] 07-28-2024 Note [facility] 07-28-2024 Note [facility] 07-04-2024 Note [facility] 07-04-2024 History of Present illness Narrative Jesus Zepeda is identified through a medication adherence outreach initiative based on pharmacy claims data from [facility] (insurer) for LOTUS medication(s), Non-insulin DM medication(s), and Statin medication(s). Patient is reviewed 07/04/24 due to medication adherence concerns with the following medications (name, strength, sig): Janumet 50-1000mg twice daily, Atorvastatin 20mg every day, Valsartan 160mg every day . Per data/report, last fill date and days supply: All Due 07/01/24 Per reconcile dispense, last fill date and days supply: All Filled 07/01/24 for 30 days Outcome of review/outreach: (choose outcome source and status) - Filled within 7 days of Next fill date per reconcile dispense Francesca Britton documented in this encounter [facility] 06-17-2024 Telephone encounter Note Pt returned call and given provider's message below with verbalized understanding. Pt agreeable. [facility] 06-17-2024 Miscellaneous Notes Pt returned call and given provider's message below with verbalized understanding. Pt agreeable. Call placed to patient with no answer. Message left to return call to triage nurse for provider message. Lizet Cisneros RN Pt. Never mentioned this pain/ weakness. Told me that knees ache but nothing about arms or neck? We could try methocarbamol, a mild muscle relaxant to take as needed. Watch for fatigue. If not effective, needs to be evaluated. Patient calls for bilateral arm pain/weakness from moving and lifting heavy objects. Nurse triage completed and recommends see provider within 24 hours. Patient declined. Reports she just saw provider last week and she thought she would give her something as she was experiencing pain at that time. Care advice reviewed with verbalized understanding. Reason for Disposition Weakness (i.e., loss of strength) of new-onset in hand or fingers (Exceptions: Not truly weak, hand feels weak because of pain; weakness present > 2 weeks) Answer Assessment - Initial Assessment Questions 1. ONSET: Patient reports on-going since before last appointment. Started with moving and lifting heavy objects. Patient reports tylenol is ineffective and pain/movement is worsening. 2. LOCATION: Bilateral Arms 3. PAIN: - MODERATE (4-7): Interferes with normal activities (e.g., work or school) or awakens from sleep. 4. WORK OR EXERCISE: Moving and lifting heavy objects. 5. CAUSE: From moving and lifting. 6. OTHER SYMPTOMS: Weakness bilateral. No neck pain, swelling, rash, fever, numbness. Protocols used: Arm [id number] documented in this encounter [facility] 06-17-2024 Telephone encounter Note Call placed to patient with no answer. Message left to return call to triage nurse for provider message. Lizet Cisneros RN [facility] 06-17-2024 Telephone encounter Note Pt. Never mentioned this pain/ weakness. Told me that knees ache but nothing about arms or neck? We could try methocarbamol, a mild muscle relaxant to take as needed. Watch for fatigue. If not effective, needs to be evaluated. [facility] 06-17-2024 Telephone encounter Note Patient calls for bilateral arm pain/weakness from moving and lifting heavy objects. Nurse triage completed and recommends see provider within 24 hours. Patient declined. Reports she just saw provider last week and she thought she would give her something as she was experiencing pain at that time. Care advice reviewed with verbalized understanding. Reason for Disposition Weakness (i.e., loss of strength) of new-onset in hand or fingers (Exceptions: Not truly weak, hand feels weak because of pain; weakness present > 2 weeks) Answer Assessment - Initial Assessment Questions 1. ONSET: Patient reports on-going since before last appointment. Started with moving and lifting heavy objects. Patient reports tylenol is ineffective and pain/movement is worsening. 2. LOCATION: Bilateral Arms 3. PAIN: - MODERATE (4-7): Interferes with normal activities (e.g., work or school) or awakens from sleep. 4. WORK OR EXERCISE: Moving and lifting heavy objects. 5. CAUSE: From moving and lifting. 6. OTHER SYMPTOMS: Weakness bilateral. No neck pain, swelling, rash, fever, numbness. Protocols used: Arm [id number] [facility] 06-10-2024 Telephone encounter Note Pt notified and voiced understanding. Daphne Cornelius MA [facility] 06-10-2024 Miscellaneous Notes Pt notified and voiced understanding. Daphne Cornelius MA Pt. Is on levothyroxine 200 mcg every day but Thursday- on Thursday she takes only 100 mcg (1/2 tablet). I wanted to know if she has missed any doses? If no missed doses, she should increase to the 200 mcg every day. Patient informed and verbalized understanding. Will start the magnesium and increase of thyroid med. Will get labs in 2 months. A1c was back and result given. 5.8 Kimmy Zavala MA Please check with patient to see if she has missed any doses of her thyroid medication? Her level of TSH is slightly elevated meaning not quite enough thyroid replacement. If she has not missed any doses, have her take half a tablet every day including Thursday. We should recheck her TSH in 2 months. Please let her know that her magnesium level and sodium level are low. I will order magnesium oxide 400 mg to take daily. I do not see that she is on a diuretic, That would be the likely reason for the low sodium and magnesium. We need to tread lightly with this sodium as it can make you feel lightheaded, dizzy, have falls. Maybe even some confusion. I will recheck that in 2 months with her magnesium and thyroid level. Still waiting for her hemoglobin A1c. Let me know about the thyroid, please documented in this encounter [facility] 06-10-2024 Telephone encounter Note Pt. Is on levothyroxine 200 mcg every day but Thursday- on Thursday she takes only 100 mcg (1/2 tablet). I wanted to know if she has missed any doses? If no missed doses, she should increase to the 200 mcg every day. [facility] 06-10-2024 Telephone encounter Note Patient informed and verbalized understanding. Will start the magnesium and increase of thyroid med. Will get labs in 2 months. A1c was back and result given. 5.8 Kimmy Zavala MA [facility] 06-10-2024 Telephone encounter Note Please check with patient to see if she has missed any doses of her thyroid medication? Her level of TSH is slightly elevated meaning not quite enough thyroid replacement. If she has not missed any doses, have her take half a tablet every day including Thursday. We should recheck her TSH in 2 months. Please let her know that her magnesium level and sodium level are low. I will order magnesium oxide 400 mg to take daily. I do not see that she is on a diuretic, That would be the likely reason for the low sodium and magnesium. We need to tread lightly with this sodium as it can make you feel lightheaded, dizzy, have falls. Maybe even some confusion. I will recheck that in 2 months with her magnesium and thyroid level. Still waiting for her hemoglobin A1c. Let me know about the thyroid, please [facility] 06-09-2024 Note Addended by: Ky PATRICK on: 06/09/2024 03:52 PM Modules accepted: Orders [facility] 06-09-2024 Miscellaneous Notes Addended by: NICOL PATRICK on: 06/09/2024 03:52 PM Modules accepted: Orders Addended by: MARIANA ENCARNACION on: 06/09/2024 03:47 PM Modules accepted: Orders Addended by: MARIANA ENCARNACION on: 06/09/2024 03:26 PM Modules accepted: Orders documented in this encounter [facility] 06-09-2024 Note Addended by: MARIANA ENCARNACION on: 06/09/2024 03:47 PM Modules accepted: Orders [facility] 06-09-2024 Note Addended by: MARIANA ENCARNACION on: 06/09/2024 03:26 PM Modules accepted: Orders [facility] 06-09-2024 Instructions Mariana Encarnacion APRN.CNP - 06/09/2024 2:56 PM EST Check labs Screening schedule The following prevention plan is recommended: HIV Screening Never done BP Controlled (<130/80) Never done HbA1C due on 03/10/2024 Urine Albumin:Creatinine Ratio due on 06/04/2024 LDL Cholesterol due on 06/04/2024 Cervical Cancer Screening due on 08/12/2024 Mammogram Screening due on 12/01/2024 WHAT YOU CAN DO TO PREVENT FALLS Many falls can be prevented. By making some changes, you can lower your chances of falling. Four things YOU can do to prevent falls for you* and your caregiver 1. Begin a regular exercise program Exercise is one of the most important ways to lower your chances of falling. It makes you stronger and helps you feel better. Exercises that improve balance and coordination (like Henir Chi) are the most helpful. Lack of exercise leads to weakness and increases your chances of falling. Ask your doctor or health care provider about the best type of exercise program for you. 2. Have your health care provider review your medicines Have your doctor or pharmacist review all the medicines you take, even fipv-zsd-vauogma medicines. As you get older, the way medicines work in your body can change. Some medicines, or combinations of medicines, can make you sleepy or dizzy and can cause you to fall. 3. Have your vision checked Have your eyes checked by an eye doctor at least once a year. You may be wearing the wrong glasses or have a condition like glaucoma or cataracts that limits your vision. Poor vision can increase your chances of falling. 4. Make your home safer About half of all falls happen at home. To make your home safer: Remove things you can trip over (like papers, books, clothes, and shoes) from stairs and places where you walk. Remove small throw rugs or use double-sided tape to keep the rugs from slipping. Keep items you use often in cabinets you can reach easily without using a step stool. Have grab bars put in next to your toilet and in the tub or shower. Use non-slip mats in the bathtub and on shower floors. Improve the lighting in your home. As you get older, you need brighter lights to see well. Hang light-weight curtains or shades to reduce glare. Have handrails and lights put in on all staircases. Wear shoes both inside and outside the house. Avoid going barefoot or wearing slippers. For more information, contact: Centers for Disease Control and Prevention www.cdc.gov/injury * This information may not apply if you have certain medical conditions. documented in this encounter [facility] 06-09-2024 Note [facility] 06-09-2024 History of Present illness Narrative Images from the original note were not included. Chief Reason For Appointment Patient presents with: Medicare Wellness Exam Jesus Zepeda is a 58 year old female who presents for annual exam. Last office visit date: 04/25/2024 Accompanied By self only Have you had any critical events, hospital stays, ER visits, surgeries or procedures since your last visit here in our office: Yes Went to [facility] in [place] for vaginal prolapse- removed part of uterus and ovaries Specialists/Other Healthcare Providers Seen: Patient Care Team: Barak Tiwari MD as PCP - General (Family Medicine) [place], [facility] (Inactive) July Cedillo APRN.[employer]LE [employer]IPMENT CLEANER as Stock Control Clerk (Family Medicine) Mariana Encarnacion APRN.CNP as Stock Control Clerk (Family Medicine) Concerns today: Medial aspect of both knees ache- moving where she lives and made pains worse HPI Ongoing knee trouble exacerbated with moving Active Problems ACTIVE PROBLEM LIST Pre-Op Testing - 01/26/2024 Migraines - 01/26/2024 Uterine Prolapse - 12/03/2023 Moreno (Stress Urinary Incontinence, Female) - 12/03/2023 Asymptomatic Microscopic Hematuria - 12/03/2023 Ureteral Stone - 11/25/2023 Comment: Had a stent and removed Ascus With Positive High Risk Hpv Cervical - 08/27/2023 Comment: 2023 ASCUS, HPV positive. Colpo ordered. Oziel Lang APRN.[employer]ER Cervical Mass - 08/13/2023 Comment: Mass vs polyp, pap done. Oziel Lang APRN.[employer]ER Aortic Valve Regurgitation - 10/07/2022 Pulmonary Hypertension (Hcc) - 10/07/2022 Chronic Obstructive Pulmonary Disease (Hcc) - 08/07/2022 Congestive Heart Failure (Hcc) - 08/07/2022 Dyspnea On Exertion - 08/07/2022 Obstructive Lung Disease (Generalized) (Hcc) - 06/20/2022 Chronic Hypoxemic Respiratory Failure (Hcc) - 06/20/2022 Chronic Diastolic Congestive Heart Failure (Hcc) - 06/08/2022 Neuropathy - 01/08/2022 Anemia - 07/03/2021 Morbid Obesity With Bmi of 40.0-44.9, Adult ([facility]) - 06/29/2020 Moderate Episode of Recurrent Major Depressive Disorder (Hcc) - 09/15/2019 Echocardiogram Abnormal - 06/23/2017 Comment: 06/22/17 echo LV NL, LVEF 65%. Unable to assess diast function. RV and RVSP not measurable due to insufficient TR. RA and LA normal size. Lymphedema - 03/02/2017 Multinodular Goiter (Nontoxic) - 12/19/2015 Hld (Hyperlipidemia) - 10/22/2015 Gastroesophageal Reflux Disease Without Esophagitis - 06/25/2015 Essential Hypertension, Benign Menorrhagia - 11/02/2012 Type 2 Diabetes Mellitus With Diabetic Neuropathy, With Long-Term Current Use of Insulin (Hcc) CANCER M->Z THYROID - 01/25/2007 Comment: Sees Dr. Ferguson Left thyroidectomy-1mm papillary microadenocarcinoma No follow up necessary per surgery ROS: REVIEW OF SYSTEMS GENERAL: No weight loss, some malaise, no fevers/chills HEENT: Positive frontal and temporal for frequent or significant headaches (3 migraines last month), No changes in hearing or vision. NECK: Negative for lumps, goiter, pain and significant neck swelling- Hx of thyroid cancer RESPIRATORY: + cough- when lying down or outside in the cold, no hemoptysis, occ wheezing, + dyspnea or shortness of breath- has COPD CARDIOVASCULAR: Negative for chest pain, + leg swelling, + orthopnea, no palpitations GI: No nausea, no vomiting, both diarrhea/constipation. No hematochezia/melena. Some heartburn or reflux symptoms. : No history of dysuria, no frequency, + incontinence MUSCULOSKELETAL: Both knees joint pain or swelling. SKIN: Negative for lesions, rash, and itching ENDOCRINE: Negative for cold or heat intolerance, polyuria, occ polydipsia and goiter NEURO: No history of headaches, syncope, paralysis, seizures or tremors- near syncope with standing MOOD: Negative for depression, anxiety, or suicidal ideation. PAST MEDICAL HISTORY Diagnosis Date Abnormal Pap smear of cervix 09/2020 lgsil/+HPV 11/14 colp benign 08/18 ascus/+HPV 09/17 colp LGSIL Adjustment disorder with depressed mood Asthma Chronic hypoxemic respiratory failure (HCC) COPD (chronic obstructive pulmonary disease) (HCC) Esophageal reflux Essential hypertension, benign Generalized anxiety disorder GI bleed History of transfusion HLD (hyperlipidemia) Hx of blood transfusion reaction Hypertension Kidney stones Menorrhagia Migraine without aura Morbid obesity (HCC) Nonspecific abnormal results of other endocrine function study 06/2004 Benign biopsy. Abnormally high thyroid globulin HARMONY (obstructive sleep apnea) Pulmonary emboli (HCC) 09/2013 Bilateral on CTA chest. Scleritis Type II or unspecified type diabetes mellitus without mention of complication, not stated as uncontrolled Uterine prolapse PAST SURGICAL HISTORY Procedure Laterality Date CARPAL TUNNEL Right 11/2015 CHOLECYSTECTOMY 11/15/2019 Dr. Ferguson COMBO ANT/POST COLPORR+ENTEROCELE 02/02/2024 CYSTOMETROGRAM 12/29/2023 CYSTOSCOPY 12/29/2023 EGD 03/07/2020 Dr Ferguson THYROID BIOPSY US 11/2015 THYROIDECTOMY TOTAL/COMPLETE Left 12/13/2018 Dr Ferguson TOTAL THYROID LOBECTOMY UNI W/WO ISTHMUSECTOMY 01/15/2007 right TUBAL LIGATION 1989 VAGINAL HYSTERECTOMY 02/02/2024 XCAPSL CTRC RMVL INSJ IO LENS PROSTH W/O ECP Right 06/2015 Cataract Extraction with PC IOL XCAPSL CTRC RMVL INSJ IO LENS PROSTH W/O ECP Left 07/2015 Cataract Extraction with PC IOL Medication List Current Outpatient Medications Medication Sig Dispense Refill atorvastatin (LIPITOR) 20 mg tablet Take 1 tablet by mouth once daily. For cholesterol. 90 tablet 3 ondansetron (ZOFRAN) 4 mg tablet Take 1 tablet by mouth every 8 hours as needed for nausea/vomiting (after surgery). For postop nausea as needed. 30 tablet 3 carvedilol (COREG) 25 mg tablet Take 0.5 tablets by mouth two times a day. 30 tablet 5 sucralfate (CARAFATE) 1 gram tablet Take 1 tablet by mouth two times a day. 60 tablet 5 levothyroxine (SYNTHROID) 200 mcg tablet Take 1 tablet by mouth once daily. Thursday through Thursday, 1/2 tab on Thursday 30 tablet 1 valsartan (DIOVAN) 160 mg tablet Take 1 tablet by mouth once daily. 30 tablet 5 SITagliptin-metFORMIN (JANUMET) 50-1,000 mg per tablet Take 1 tablet by mouth two times a day with meals. [address] (PROTONIX) 40 mg tablet Take 1 tablet by mouth two times a day. Take on empty stomach, 1/2 hr before meal. 60 tablet 5 budesonide-formoterol (SYMBICORT) 160-4.5 mcg/actuation inhaler Inhale 2 Puffs as instructed two times a day. 1 Each 5 SUMAtriptan (IMITREX) 50 mg tablet Take 1 tablet (50 mg) by mouth as needed for migraine headache (see administration instructions). 9 tablet 1 iron dwain,ps-FA-B-C#12-succ 65 mg-65 mg -1,000 mcg (24) tab Take by mouth two times a day. albuterol HFA (PROVENTIL HFA, VENTOLIN HFA) 90 mcg/actuation inhaler Inhale 2 Puffs as instructed every 6 hours as needed. 1 Each 5 blood sugar diagnostic (BLOOD GLUCOSE TEST) test strip Test blood sugar(s) 4 times daily. Dx: Type 2 DM - Controlled E11.9 Insulin: Yes 100 Strip 5 Lancets lancets Test blood sugar(s) 4 times daily. Dx: Type 2 DM - Controlled E11.9 Insulin: Yes 100 Each 5 fluorometholone (FML LIQUID FILM) 0.1 % ophthalmic suspension INSTILL 1 DROP IN BOTH EYES 1-2 TIMES PER DAY blood sugar diagnostic (BLOOD GLUCOSE TEST) test strip Test blood sugar(s) 4 times daily. Dx: Type 2 DM - Controlled E11.9 Insulin: Yes 400 Strip 5 No current facility-administered medications for this visit. Weight Summary: Weight Change: Body mass index is 40.78 kg/m . Last Wt 06/09/24 : 98 kg (216 lb) 01/26/24 : 98 kg (216 lb) 12/29/23 : 94.3 kg (208 lb) 12/03/23 : 97.1 kg (214 lb) 11/25/23 : 97.1 kg (214 lb) DM: Reports overall feeling well. Medication side effects: No. Home sugar checks: Yes Hypoglycemic spells: Yes. Watching diet: No. Unexpected weight loss: No. Polyuria, polydipsia: Yes. Vision Changes: No. Foot lesions or numbness or pain: No. Physical Exam: General Appearance: well appearing, alert and oriented. Skin: no suspicious lesion, no rash, no open sores Head: normocephalic, no obvious masses, dent in forehead since striking head on flower pot 3 years ago, no tenderness or abnormalities. Eyes: Anicteric sclera. Pupils are equally round and reactive to light. Extraocular movements are intact. Some asymptomatic nystagmus. Fundi benign. Ears: external ears normal, canals clear, TM's clear fluidl. Hearing to conversational voice intact. Nose/Sinuses: nares normal, septum midline, mucosa normal, no drainage or sinus tenderness. Oropharynx: lips, mucosa, and tongue normal, oropharynx normal. Neck: trachea midline, thyroid without mass or nodularity, thyroid moves normally with swallow, no regional lymphadenopathy. Carotids normal upstroke, no bruit or thrill. Back: significant kyphosis Lungs: Chest rise & fall symmetrical, Lungs clear to auscultation. No wheezing or rhonchi. No rales. Abdomen: normal bowel sounds, no mass, non-tender Heart: S1S2, no gallop, no rub, soft DARLYN @ sternal border Lymph Nodes: no lymphadenopathy. Ext: no clubbing, cyanosis or edema. Mood: bright affect, speech clear, answers questions appropriately SCREENINGS Health Maintenance Listing HIV Screening Influenza Vaccine(1) Covid-19 Vaccine( season) HbA1C Urine Albumin:Creatinine Ratio LDL Cholesterol Cervical Cancer Screening Mammogram Screening TEST RESULTS: Lab Studies: Date of lab studies: check labs - glucose - potassium - Creatinine, gfr - LFTs Lipid: WBC, H&H, Platelets: A1C: Vitamin D: Other: Orthostatic BP 120/80 both sitting and standing A/P: ASSESSMENT/PLAN: 1. Type 2 diabetes mellitus with diabetic neuropathy, with long-term current use of insulin (HCC) - ICD9: 250.60, 357.2, V58.67, ICD10: E11.40, Z79.4 (primary diagnosis) - Control undetermined, due for labs - Continue current medications - HEMOGLOBIN A1C - ALBUMIN/CREATININE RATIO, URINE - MAGNESIUM - VITAMIN B12 2. Headache, unspecified headache type - ICD9: 784.0, ICD10: R51.9 Ongoing - SUMATRIPTAN 50 MG TABLET - MAGNESIUM - VITAMIN B12 3. Migraine without aura and without status migrainosus, not intractable - ICD9: 346.10, ICD10: G43.009 Stable - MAGNESIUM - VITAMIN B12 4. Essential hypertension, benign - ICD9: 401.1, ICD10: I10 - Controlled - Recommend home blood pressure monitoring, to bring results to next visit - Encouraged sodium restriction, DASH or Mediterranean diet - Recommend regular aerobic exercise - MAGNESIUM - VITAMIN B12 5. Pure hypercholesterolemia - ICD9: 272.0, ICD10: E78.00 Check labs - LIPID PANEL, NONFASTING - MAGNESIUM - VITAMIN B12 6. Chronic diastolic congestive heart failure (HCC) - ICD9: 428.32, 428.0, ICD10: I50.32 - HFpEF 50+ - Continue current medications 7. Aortic valve insufficiency, etiology of cardiac valve disease unspecified - ICD9: 424.1, ICD10: I35.1 Stable 8. Thyroid cancer (HCC) - ICD9: 193, ICD10: C73 Had thyroidectomy - THYROID STIMULATING HORMONE 9. Medicare annual wellness visit, subsequent - ICD9: V70.0, ICD10: Z00.00 - Counseled on healthy diet and regular exercise 10. Memory changes - ICD9: 780.93, ICD10: R41.3 States this occurs with migraines 11. Cognitive changes - ICD9: 799.59, ICD10: R41.89 Stable 12. Seasonal allergic rhinitis, unspecified trigger - ICD9: 477.9, ICD10: J30.2 Acute - FLUTICASONE PROPIONATE 50 MCG/ACTUATION NASAL SPRAY,SUSPENSION Discussed treatment plan and patient voices understanding. Patient's questions answered appropriately. Medications and potential side effects were discussed and patient voices understanding. Return to the office as scheduled or as needed for worsening/no improvement. Mariana Encarnacion APRN.[facility] Follow Up Plans: 6 months Jesus Zepeda is a 58 year old female here for a Medicare wellness visit. Medicare Health Risk Assessment General Health Good Exercise: Minutes/Day 10 min Exercise: Days/Week 4 days Alcohol: Daily Use Never Alcohol: Drinks/Day Patient does not drink Alcohol: 6 or more drinks Never Feel off balance Yes (once in a while) Concerns: Teeth/Dentures No Concerns: Sexual function No Troubled by feelings Anxious; Stressed; Angry; Irritable; Isolated; Thoughts of hurting myself (sometimes has thoughts of hurting herself, but not often) Frequency: Eating healthy diet More than half the days ADLs requiring help None of the above Safety precautions in home/vehicle Yes Smoke, vape, chews tobacco No Difficulty hearing No Difficulty seeing Yes (Last eye exam up to date, this year) Current Providers Specialists: I have reviewed specialist-related care of the patient in the medical record. Medical/Family history review Reviewed and updated problem list, medical/surgical/family/social history, medications, and allergies. Opioid use review Opioid Medications (last 90 days) No data to display Anxiety/Depression screening PHQ-2 Score: 2 (Lower risk for depression) Recommendation: continuing current treatment plan Cognitive screening Mini Cog Score: 1 Cognitive screening reviewed and No further action needed (score 3-5). Functional Observation Was the patient's Timed Up & Go test unsteady or >= 12 seconds? No Advance Care Planning Patient did not wish or was not able to name a surrogate decision maker or provide an advance care plan Measurements BP 132/84 Pulse 73 Temp 36.5 C (97.7 F) (Right Tympanic) Resp 18 Ht 155 cm (5' 1.02) Wt 98 kg (216 lb) LMP 03/21/2005 SpO2 92% BMI 40.78 kg/m Vision Screening: Follows with optometry/ophthalmology Assessment/Plan Welcome to Medicare preventive visit (Z00.00) - Counseled on healthy diet and regular exercise - Fall avoidance information provided - Personalized prevention plan provided documented in this encounter [facility] 06-03-2024 Telephone encounter Note The following approved medication requests have been transmitted electronically. Requested Prescriptions Signed Prescriptions Disp Refills atorvastatin (LIPITOR) 20 mg tablet 90 tablet 3 Sig: Take 1 tablet by mouth once daily. For cholesterol. Authorizing Provider: FRANCESCA ALFARO APRN.CNP [facility] 06-03-2024 Miscellaneous Notes The following approved medication requests have been transmitted electronically. Requested Prescriptions Signed Prescriptions Disp Refills atorvastatin (LIPITOR) 20 mg tablet 90 tablet 3 Sig: Take 1 tablet by mouth once daily. For cholesterol. Authorizing Provider: FRANCESCA ALFARO APRN.CNP Prescription Refill Information The patient has been identified by name and date of : Yes Caregiver verified no other encounters exist for this prescription request: Yes Caregiver confirmed with patient/requestor that no other refills are due, in the near future, with this provider at this time: Yes The last office visit in the department: 04/25/24 Does the patient have a future office visit with this provider/department: Yes Requested Prescriptions Pending Prescriptions Disp Refills atorvastatin (LIPITOR) 20 mg tablet 90 tablet 3 Sig: Take 1 tablet by mouth once daily. For cholesterol. Nicol Patrick MA June 03, 2024 10:21 AM Bonny from [employer] has not been able to reach the patient and states patient is do for a refill on atorvastatin medication. documented in this encounter [facility] 06-03-2024 Telephone encounter Note Prescription Refill Information The patient has been identified by name and date of : Yes Caregiver verified no other encounters exist for this prescription request: Yes Caregiver confirmed with patient/requestor that no other refills are due, in the near future, with this provider at this time: Yes The last office visit in the department: 04/25/24 Does the patient have a future office visit with this provider/department: Yes Requested Prescriptions Pending Prescriptions Disp Refills atorvastatin (LIPITOR) 20 mg tablet 90 tablet 3 Sig: Take 1 tablet by mouth once daily. For cholesterol. Nicol Patrick MA June 03, 2024 10:21 AM [facility] 06-03-2024 Telephone encounter Note Bonny from [employer] has not been able to reach the patient and states patient is do for a refill on atorvastatin medication. [facility] 06-01-2024 Telephone encounter Note Spoke with pt and information listed below given. Pt verbalizes understanding. Swathi Garcia LPN [facility] 06-01-2024 Miscellaneous Notes Spoke with pt and information listed below given. Pt verbalizes understanding. Swathi Garcia LPN Unfortunately, I cannot. She did not get labs in January to follow up on anemia. So I cannot safely recommend NSAIDS. No narcotics as not seen by us. She could ask dentist. The only thing I can suggest is 650- 1,000 mg acetaminophen 3 x day. Warm salt water rinses. Pt calling she had 2 teeth pulled today and is in a lot of pain. Pt asking if there is anything you can recommend or call in for her. Pt instructed you need to be seen to have pain med called. Asking if there is something you can recommend. Please advise pt. Swathi Garcia LPN documented in this encounter [facility] 05-31-2024 Telephone encounter Note Unfortunately, I cannot. She did not get labs in January to follow up on anemia. So I cannot safely recommend NSAIDS. No narcotics as not seen by us. She could ask dentist. The only thing I can suggest is 650- 1,000 mg acetaminophen 3 x day. Warm salt water rinses. [facility] Work Phone: 05-31-2024 Telephone encounter Note Pt calling she had 2 teeth pulled today and is in a lot of pain. Pt asking if there is anything you can recommend or call in for her. Pt instructed you need to be seen to have pain med called. Asking if there is something you can recommend. Please advise pt. Swathi Garcia LPN [facility] 05-31-2024 Telephone encounter Note Form faxed. Caesar Dunham LPN [facility] 05-31-2024 Miscellaneous Notes Form faxed. Caesar Dunham LPN Form complete. Please fax back. July Cedillo APRN.ROSEANN Type of form: [facility] Form received via fax When form is completed, Fax form to [phone] Form has been forwarded to Nurse Practitioner: July Andrea LPN documented in this encounter [facility] 05-30-2024 Telephone encounter Note Form complete. Please fax back. July Cedillo APRN.ROSEANN [facility] 05-30-2024 Telephone encounter Note Type of form: [facility] Form received via fax When form is completed, Fax form to [phone] Form has been forwarded to Nurse Practitioner: July Andrea LPN [facility] 05-09-2024 Note [facility] 05-09-2024 History of Present illness Narrative POPULATION HEALTH NAVIGATION OUTREACH Action/FYI Patient is on [employer] list for below and needs appointment to address: HIV Screening Influenza Vaccine(1) Covid-19 Vaccine( season) HbA1C Urine Albumin:Creatinine Ratio LDL Cholesterol Cervical Cancer Screening Hemoglobin A1C (%) Date Value 09/08/2023 5.8 10/01/2020 6.3 Patient due for: Medicare Annual Wellness Visit HBA1C KED Flu Vaccine MyChart Active: Previously Declined Left message for patient to call back. No mychart available. HCC: Yes Reason for Outreach Care Gap/HCC or Scheduling Wellness Visits Care Gaps due: Medicare Annual Wellness Visit HBA1C KED Flu Vaccine Patient Contacted: Unable or unnecessary to reach patient: Left message Navigation Signature: Peyton Rasheed MA May 09, 2024 11:53 AM documented in this encounter [facility] 05-02-2024 Telephone encounter Note Prescription Refill Information The patient has been identified by name and date of : Yes Caregiver verified no other encounters exist for this prescription request: Yes Caregiver confirmed with patient/requestor that no other refills are due, in the near future, with this provider at this time: Yes The last office visit in the department: 04-25-24 Does the patient have a future office visit with this provider/department: Yes Requested Prescriptions Pending Prescriptions Disp Refills budesonide-formoterol (SYMBICORT) 160-4.5 mcg/actuation inhaler 1 Each 5 Sig: Inhale 2 Puffs as instructed two times a day. Miryam Muller May 02, 2024 4:14 PM [facility] 05-02-2024 Miscellaneous Notes Prescription Refill Information The patient has been identified by name and date of : Yes Caregiver verified no other encounters exist for this prescription request: Yes Caregiver confirmed with patient/requestor that no other refills are due, in the near future, with this provider at this time: Yes The last office visit in the department: 04-25-24 Does the patient have a future office visit with this provider/department: Yes Requested Prescriptions Pending Prescriptions Disp Refills budesonide-formoterol (SYMBICORT) 160-4.5 mcg/actuation inhaler 1 Each 5 Sig: Inhale 2 Puffs as instructed two times a day. Miryam Muller May 02, 2024 4:14 PM documented in this encounter [facility] 05-02-2024 Telephone encounter Note Prescription Refill Information The patient has been identified by name and date of : Yes Caregiver verified no other encounters exist for this prescription request: Yes Caregiver confirmed with patient/requestor that no other refills are due, in the near future, with this provider at this time: Yes The last office visit in the department: 04-25-24 Does the patient have a future office visit with this provider/department: Yes Requested Prescriptions Pending Prescriptions Disp Refills ondansetron (ZOFRAN) 4 mg tablet 30 tablet 3 Sig: Take 1 tablet by mouth every 8 hours as needed for nausea/vomiting (after surgery). For postop nausea as needed. carvedilol (COREG) 25 mg tablet 30 tablet 5 Sig: Take 0.5 tablets by mouth two times a day. sucralfate (CARAFATE) 1 gram tablet 60 tablet 5 Sig: Take 1 tablet by mouth two times a day. levothyroxine (SYNTHROID) 200 mcg tablet 30 tablet 1 Sig: Take 1 tablet by mouth once daily. Thursday through Thursday, 1/2 tab on Thursday valsartan (DIOVAN) 160 mg tablet 30 tablet 5 Sig: Take 1 tablet by mouth once daily. SITagliptin-metFORMIN (JANUMET) 50-1,000 mg per tablet 180 tablet 3 Sig: Take 1 tablet by mouth two times a day with meals. pantoprazole DR (PROTONIX) 40 mg tablet 60 tablet 5 Sig: Take 1 tablet by mouth two times a day. Take on empty stomach, 1/2 hr before meal. Miryam Muller May 02, 2024 4:11 PM [facility] 05-02-2024 Miscellaneous Notes Prescription Refill Information The patient has been identified by name and date of : Yes Caregiver verified no other encounters exist for this prescription request: Yes Caregiver confirmed with patient/requestor that no other refills are due, in the near future, with this provider at this time: Yes The last office visit in the department: 04-25-24 Does the patient have a future office visit with this provider/department: Yes Requested Prescriptions Pending Prescriptions Disp Refills ondansetron (ZOFRAN) 4 mg tablet 30 tablet 3 Sig: Take 1 tablet by mouth every 8 hours as needed for nausea/vomiting (after surgery). For postop nausea as needed. carvedilol (COREG) 25 mg tablet 30 tablet 5 Sig: Take 0.5 tablets by mouth two times a day. sucralfate (CARAFATE) 1 gram tablet 60 tablet 5 Sig: Take 1 tablet by mouth two times a day. levothyroxine (SYNTHROID) 200 mcg tablet 30 tablet 1 Sig: Take 1 tablet by mouth once daily. Thursday through Thursday, 1/2 tab on Thursday valsartan (DIOVAN) 160 mg tablet 30 tablet 5 Sig: Take 1 tablet by mouth once daily. SITagliptin-metFORMIN (JANUMET) 50-1,000 mg per tablet 180 tablet 3 Sig: Take 1 tablet by mouth two times a day with meals. pantoprazole DR (PROTONIX) 40 mg tablet 60 tablet 5 Sig: Take 1 tablet by mouth two times a day. Take on empty stomach, 1/2 hr before meal. Miryam Muller May 02, 2024 4:11 PM documented in this encounter [facility] 04-25-2024 Instructions July Cedillo APRN.CNP - 04/25/2024 2:32 PM EST Finish the antibiotics, as prescribed. Warm compresses to the area. Notify provider of any new/worsening symptoms. documented in this encounter [facility] 04-25-2024 Note [facility] 04-25-2024 History of Present illness Narrative This is a 58 year old female who presents today with: Patient presents with: ER F/U: [facility] ER 04/22 dx: R arm cellulitis HISTORY OF PRESENT ILLNESS: Jesus Zepeda is a 58 year old female. Patient presents with: ER F/U: [facility] ER 04/22 dx: R arm cellulitis Pt presents today for ER follow-up. First noticed arm pain/lump a couple of days prior to ER presentation. She refers that the area she developed a sore area on the right upper arm. Progressively worsened over a couple of days. Developed fever/chills. Went to the ER. Dx with abscess and cellulitis. Had !&D. Had packing in for a couple of days, this was removed on Thursday. She continues on Keflex and bactrim. It is feeling improved. Gets some brownish drainage. No more fever/chills. PAST MEDICAL HISTORY: PAST MEDICAL HISTORY Diagnosis Date Abnormal Pap smear of cervix 09/2020 lgsil/+HPV 11/14 colp benign 08/18 ascus/+HPV 09/17 colp LGSIL Adjustment disorder with depressed mood Asthma Chronic hypoxemic respiratory failure (HCC) COPD (chronic obstructive pulmonary disease) (HCC) Esophageal reflux Essential hypertension, benign Generalized anxiety disorder GI bleed History of transfusion HLD (hyperlipidemia) Hx of blood transfusion reaction Hypertension Kidney stones Menorrhagia Migraine without aura Morbid obesity (HCC) Nonspecific abnormal results of other endocrine function study 06/2004 Benign biopsy. Abnormally high thyroid globulin HARMONY (obstructive sleep apnea) Pulmonary emboli (HCC) 09/2013 Bilateral on CTA chest. Scleritis Type II or unspecified type diabetes mellitus without mention of complication, not stated as uncontrolled Uterine prolapse PAST SURGICAL HISTORY Procedure Laterality Date CARPAL TUNNEL Right 11/2015 CHOLECYSTECTOMY 11/15/2019 Dr. Ferguson COMBO ANT/POST COLPORR+ENTEROCELE 02/02/2024 CYSTOMETROGRAM 12/29/2023 CYSTOSCOPY 12/29/2023 EGD 03/07/2020 Dr Ferguson THYROID BIOPSY US 11/2015 THYROIDECTOMY TOTAL/COMPLETE Left 12/13/2018 Dr Ferguson TOTAL THYROID LOBECTOMY UNI W/WO ISTHMUSECTOMY 01/15/2007 right TUBAL LIGATION 1988 VAGINAL HYSTERECTOMY 02/02/2024 XCAPSL CTRC RMVL INSJ IO LENS PROSTH W/O ECP Right 06/2015 Cataract Extraction with PC IOL XCAPSL CTRC RMVL INSJ IO LENS PROSTH W/O ECP Left 07/2015 Cataract Extraction with PC IOL ALLERGIES Latex, Prinivil [Lisinopril], and Zanaflex [Tizanidine Hcl] MEDICATIONS Current Outpatient Medications Medication Sig SITagliptin-metFORMIN (JANUMET) 50-1,000 mg per tablet Take 1 tablet by mouth two times a day with meals. SUMAtriptan (IMITREX) 50 mg tablet Take 1 tablet (50 mg) by mouth as needed for migraine headache (see administration instructions). levothyroxine (SYNTHROID) 200 mcg tablet Take 1 tablet by mouth once daily. Thursday through Thursday, 1/2 tab on Thursday ondansetron (ZOFRAN) 4 mg tablet Take 1 tablet by mouth every 8 hours as needed for nausea/vomiting (after surgery). For postop nausea as needed. (Patient not taking: Reported on 02/17/2024) iron bisgly,ps-FA-B-C#12-succ 65 mg-65 mg -1,000 mcg (24) tab Take by mouth two times a day. sucralfate (CARAFATE) 1 gram tablet Take 1 tablet by mouth two times a day. valsartan (DIOVAN) 160 mg tablet Take 1 tablet by mouth once daily. carvedilol (COREG) 25 mg tablet Take 0.5 tablets by mouth two times a day. pantoprazole DR (PROTONIX) 40 mg tablet Take 1 tablet by mouth two times a day. Take on empty stomach, 1/2 hr before meal. albuterol HFA (PROVENTIL HFA, VENTOLIN HFA) 90 mcg/actuation inhaler Inhale 2 Puffs as instructed every 6 hours as needed. budesonide-formoterol (SYMBICORT) 160-4.5 mcg/actuation inhaler Inhale 2 Puffs as instructed two times a day. atorvastatin (LIPITOR) 20 mg tablet Take 1 tablet by mouth once daily. For cholesterol. blood sugar diagnostic (BLOOD GLUCOSE TEST) test strip Test blood sugar(s) 4 times daily. Dx: Type 2 DM - Controlled E11.9 Insulin: Yes Lancets lancets Test blood sugar(s) 4 times daily. Dx: Type 2 DM - Controlled E11.9 Insulin: Yes fluorometholone (FML LIQUID FILM) 0.1 % ophthalmic suspension INSTILL 1 DROP IN BOTH EYES 1-2 TIMES PER DAY blood sugar diagnostic (BLOOD GLUCOSE TEST) test strip Test blood sugar(s) 4 times daily. Dx: Type 2 DM - Controlled E11.9 Insulin: Yes No current facility-administered medications for this visit. FAMILY HISTORY Problem Relation Age of Onset Hypertension Mother Diabetes Mother Thyroid Mother thyroidectomy other (heart murmur) Mother Heart Attack Father Diabetes Brother Hypertension Brother No Known Problems Brother Pneumothorax Maternal Grandmother No Known Problems Daughter No Known Problems Son Breast Cancer Maternal Aunt Metastatic to bone other (Other) Other No DVT or PE. Social History Tobacco Use Smoking status: Never Smokeless tobacco: Never Tobacco comments: FAther smoking in childhood home. Has lived with smoker in home, son quit about 2016. Vaping Use Vaping status: Never Used Substance Use Topics Alcohol use: Not Currently Drug use: Never EXAM: BP 114/71 Pulse 64 Resp 16 LMP 03/21/2005 SpO2 93% PHYSICAL EXAM: General Appearance: Well appearing, alert, in no acute distress, well-hydrated, well nourished.. Skin: Skin color, texture, turgor normal, no suspicious rashes or lesions. Posterior right upper arm with puncture area. No current drainage. Some pealing skin around incision site. Not angry. Some firmness around area, but no increase warmth and no fluctuance. Head: Normocephalic, no masses, lesions, tenderness or abnormalities. Eyes: Anicteric sclera. Pupils are equally round and reactive to light. Extraocular movements are intact. . Lungs: faint late exp wheeze throughout, otherwise CTA. Heart: RRR without murmur, gallop, or rubs. No ectopy. Neurologic: Gait normal. ASSESSMENT/PLAN: 1. Abscess - ICD9: 682.9, ICD10: L02.91 (primary diagnosis) 2. Cellulitis of skin - ICD9: 682.9, ICD10: L03.90 Healing well. Not angry. Finish antibiotics as prescribed by ER. Warm compresses. Notify provider of any new/worsening symptoms. Discussed treatment plan and patient voices understanding. Patient's questions answered appropriately. Medications and potential side effects were discussed and patient voices understanding. Return to the office as scheduled or as needed for worsening/no improvement. July Cedillo APRN.ROSEANN documented in this encounter [facility] 04-14-2024 Telephone encounter Note The patient has been identified by name and date of : Yes Caregiver verified no other encounters exist for this prescription request: Yes Caregiver confirmed with patient/requestor that no other refills are due, in the near future, with this provider at this time: Yes The last office visit in the department: 11/25/2023 Does the patient have a future office visit with this provider/department: Yes 05/06/2024 Requested Prescriptions Pending Prescriptions Disp Refills SITagliptin-metFORMIN (JANUMET) 50-1,000 mg per tablet 180 tablet 3 Sig: Take 1 tablet by mouth two times a day with meals. Mulu Soto RN April 14, 2024 10:35 AM [facility] 04-14-2024 Miscellaneous Notes The patient has been identified by name and date of : Yes Caregiver verified no other encounters exist for this prescription request: Yes Caregiver confirmed with patient/requestor that no other refills are due, in the near future, with this provider at this time: Yes The last office visit in the department: 11/25/2023 Does the patient have a future office visit with this provider/department: Yes 05/06/2024 Requested Prescriptions Pending Prescriptions Disp Refills SITagliptin-metFORMIN (JANUMET) 50-1,000 mg per tablet 180 tablet 3 Sig: Take 1 tablet by mouth two times a day with meals. Mulu Soto RN April 14, 2024 10:35 AM documented in this encounter [facility] 04-14-2024 Telephone encounter Note Protocol recommends got to the ER now. Pt states she was already at [facility] ER. Care plan reviewed with patient. Patient voices understanding. Reason for Disposition [1] SEVERE pain AND [2] not improved 2 hours after pain medicine Answer Assessment - Initial Assessment Questions 1. ONSET: The pain started about a week ago. 2. LOCATION: The pain is located in the Pts R shoulder goes into her armpit and all the way down her arm into her hand. 3. PAIN: - MILD (1-3): Doesn't interfere with normal activities. - MODERATE (4-7): Interferes with normal activities (e.g., work or school) or awakens from sleep. - SEVERE (8-10): Excruciating pain, unable to do any normal activities, unable to hold a cup of water. Pt reports the pain a 10/10, but states if she could she would rate it a 20/20. Pt states it is a constant aching and burning. 4. WORK OR EXERCISE: Denies any recent work or exercise that involved this part of the body. 5. CAUSE: Pt does not know what is causing the arm pain. 6. OTHER SYMPTOMS: Pt denies neck pain, rash, fever, or numbness. Pt reports swelling in her hand and weakness. Pt states this morning she wasn't able to lift her hand above her head, it is more stiff I the morning. 7. : Menopausal Protocols used: Arm [id number] [facility] 04-14-2024 Miscellaneous Notes Protocol recommends got to the ER now. Pt states she was already at [facility] ER. Care plan reviewed with patient. Patient voices understanding. Reason for Disposition [1] SEVERE pain AND [2] not improved 2 hours after pain medicine Answer Assessment - Initial Assessment Questions 1. ONSET: The pain started about a week ago. 2. LOCATION: The pain is located in the Pts R shoulder goes into her armpit and all the way down her arm into her hand. 3. PAIN: - MILD (1-3): Doesn't interfere with normal activities. - MODERATE (4-7): Interferes with normal activities (e.g., work or school) or awakens from sleep. - SEVERE (8-10): Excruciating pain, unable to do any normal activities, unable to hold a cup of water. Pt reports the pain a 10/10, but states if she could she would rate it a 20/20. Pt states it is a constant aching and burning. 4. WORK OR EXERCISE: Denies any recent work or exercise that involved this part of the body. 5. CAUSE: Pt does not know what is causing the arm pain. 6. OTHER SYMPTOMS: Pt denies neck pain, rash, fever, or numbness. Pt reports swelling in her hand and weakness. Pt states this morning she wasn't able to lift her hand above her head, it is more stiff I the morning. 7. : Menopausal Protocols used: Arm [id number] documented in this encounter [facility] 03-07-2024 History of Present illness Narrative POPULATION HEALTH NAVIGATION OUTREACH Action/Danya Arriaga [place] Discuss/Due for: Follow Up BP Control, 2024 Medicare Wellness, Influenza Vaccination Return in about 3 months (around 02/25/2024). HCC Score: .[id number] Outcome: 1st attempt - Spoke to patient Scheduled Follow Up BP Control Scheduled 2024 Medicare Wellness Patient declined Influenza Vaccination Patient reports not monitoring home blood pressures Reason for Outreach Care Gap/HCC or Scheduling Wellness Visits Care Gaps due: Medicare Annual Wellness Visit Follow-up Appointment Controlling Blood Pressure Flu Vaccine Patient Contacted: Spoke to patient/parent/or legal guardian Patient identified by name and : Yes Care Gap/HCC/Scheduling Wellness actions taken: Patient scheduled/pended orders: Medicare Annual Wellness Visit Follow-up Appointment Controlling Blood Pressure 03/21/2024 in [facility] with OZIEL ROLON - 6 week post op 03/25/2024 in [facility] with BARAK TIWARI - Follow Up BP Control / HCC Gap Closure , Return in about 3 months (around 02/25/2024). 03/28/2024 in [facility] with CHRISSY DOWELL - Obstructive lung disease (generalized) (HCC) [J44.9]; Chronic hypoxemic respiratory failure (HCC) [J96.11]; Obesity hypoventilation syndrome (HCC) [E66.2] 05/06/2024 in [facility] with BARAK TIWARI J - 2024 Medicare Wellness Z00.00 HCC related Navigation Signature: Patty Braga MA March 07, 2024 1:31 PM documented in this encounter [facility] 02-17-2024 Instructions Oziel Rolon APRN.ROSEANN - 02/17/2024 9:46 AM EDT POST-OPERATIVE ACTIVITY RESTRICTIONS Your surgical recovery will be unique to you and how you heal. In the first few days after surgery, you will probably feel sluggish. As you recover, you will gradually return to normal activities. It is important to push yourself to return to normal activities as you feel fit. Listen to your body in terms of increasing your activity level as you recover. You may walk and climb stairs right after surgery. Walking and stair climbing will not hurt your surgical repair. You may resume activities like lifting/running/high impact aerobic activities/sit-up as soon as you feel strong enough. Please do not do any bike or horseback riding for 2 weeks if you have had a midurethral sling. Do not put anything in the vagina for 6 weeks after surgery unless otherwise instructed by your doctor (including tampons, douching, sexual intercourse, etc). No driving while you are taking narcotic pain medication, or until you feel that you are ready and can safely slam the brakes if needed. Avoid sitting or lying in bed for more than 2 hours at a time while you are awake to reduce your risk of blood clots. You may return to work when directed by your physician. Please contact your doctor if you need any return to work letters or medical leave paperwork to be completed documented in this encounter [facility] 02-17-2024 History of Present illness Narrative Female Pelvic Medicine & Reconstructive Surgery Post-Op Visit Jesus Zepeda is a 58 year old female who presents for a 2 Week post-op check s/p Procedure(s): Procedure(s): HYSTERECTOMY VAGINAL UTERUS 250G OR LESS REMOVAL TUBE(S) CYSTOSCOPY COMBINED ANTERIOPOSTERIOR COLPORRHAPHY W/ENTEROCELE REPAIR INCLUDING CYSTOURETHROSCOPY WHEN PERFORMED VAGINECTOMY PARTIAL. Post-op complications: no Bleeding: no Pain: no If you had pain related to your prolapse before surgery, has your pain resolved? Yes Abnormal vaginal discharge: no, but patient reports itching and burning felt raw Pathology: FINAL DIAGNOSIS A. Uterus, cervix, right fallopian tube, vaginal hysterectomy with right salpingectomy: -- Endometrium: Benign endometrial polyp in the background of inactive endometrium with cystic atrophy. -- Myometrium: Adenomyosis and leiomyomata. -- Cervix: Squamous mucosa with focal features suggestive but not definitive for low-grade squamous intraepithelial neoplasia (ISABEL-1) in the background of parakeratosis. Mucosal ulceration with underlying acutely and chronically inflamed granulation tissue proliferation. -- Fallopian tube: No significant histopathologic abnormalities. B. Left fallopian tube, salpingectomy: -- Chronic salpingitis and paratubal cyst. PFDI-20 Do you: Usually experience pressure in the lower abdomen? No (0) Usually experience heaviness or dullness in the pelvic area? No (0) Usually have a bulge or something falling out that you can see or feel in your vaginal area? No (0) Ever have to push on the vagina or around the rectum to have or complete a bowel movement? No (0) Usually experience a feeling of incomplete bladder emptying? No (0) Ever have to push up on a bulge in the vaginal area with your fingers to start or complete urination? No (0) Feel you need to strain too hard to have a bowel movement? No (0) Feel you have not completely emptied your bowels at the end of a bowel movement? No (0) Usually lose stool beyond your control if your stool is well formed? No (0) Usually lose stool beyond your control if your stool is loose? No (0) Usually lose gas from the rectum beyond your control? Yes, not at all bothersome (1) Usually have pain when you pass your stool? No (0) Experience a strong sense of urgency and have to canela to the bathroom to have a bowel movement? No (0) Does part of your bowel ever pass through the rectum and bulge outside during or after a bowel movement? No (0) Usually experience frequent urination? No (0) Usually experience urine leakage associated with a feeling of urgency, that is, a strong sensation of needing to go to the bathroom? Yes, not at all bothersome (1) Usually experience urine leakage related to coughing, sneezing or laughing? No (0) Usually experience small amounts of urine leakage (that is, drops)? No (0) Usually experience difficulty emptying your bladder? No (0) Usually experience pain or discomfort in the lower abdomen or genital region? No (0) Overall, how satisfied were you with your postoperative pain medication? Neither satisfied nor dissatisfied With regard to your expectations before surgery, did you have the amount of pain you expected, more pain, or less pain? More pain than I expected Was the preoperative teaching you had about pain expectations helpful? Yes Were the discharge instructions you received about pain medications helpful? No OBJECTIVE: [facility] 03/21/2005 Physical Exam Exam conducted with a nurse supervisor present. Constitutional: Appearance: Normal appearance. Genitourinary: General: Normal vulva. Exam position: Lithotomy position. Labia: Right: No lesion. Left: No lesion. Vagina: No prolapsed vaginal mccormick. Cervix: No discharge or cervical bleeding. Comments: Incision clean, dry and intact. Surgical incisions are healing well, and Suture material present. Small amt physiologic appearing discharge. Lymphadenopathy: Lower Body: No right inguinal adenopathy. No left inguinal adenopathy. Neurological: Mental Status: She is alert. ASSESMENT: Jesus Zepeda is a 58 year old female who is post-op; stable and doing well post-operative course uncomplicated PLAN: 1. Post-operative state - ICD9: V45.89, ICD10: Z98.890 May resume normal activities. Operative findings and pathology report reviewed, normal results Follow up 4 weeks. Patient expressed understanding. Oziel Rolon APRN.ROSEANN This note was created using [employer]. documented in this encounter [facility] 02-12-2024 Telephone encounter Note LM to return call to office. Caesar Dunham LPN [facility] 02-12-2024 Miscellaneous Notes LM to return call to office. Caesar Dunham LPN Orders replaced -- for some reason, her orders are defaulting to quest, which is why they are not being seen by out lab. I'm not sure why they are defaulting to quest. May want to verify coverage. Images from the original note were not included. Dr. Tiwari's orders are still there. Dates are 11/25/23 - 02/24/24. Spoke with pt and information listed below given. Pt verbalizes understanding. Spoke with the lab and the orders Dr. Tiwari had in for blood work was cancelled per Dr. Tiwari. If you want pt to come in new orders will need to be ordered and pt notified. Swathi Garcia LPN Due for labs. Still has pended orders ordered by Dr. Tiwari. Please come in and get labs. July Cedillo APRN.ROSEANN Prescription Refill Information The patient has been identified by name and date of : Yes Caregiver verified no other encounters exist for this prescription request: Yes Caregiver confirmed with patient/requestor that no other refills are due, in the near future, with this provider at this time: Yes The last office visit in the department: 11/25/23 Does the patient have a future office visit with this provider/department: Yes Requested Prescriptions Pending Prescriptions Disp Refills SUMAtriptan (IMITREX) 50 mg tablet 9 tablet 1 Sig: Take 1 tablet (50 mg) by mouth as needed for migraine headache (see administration instructions). levothyroxine (SYNTHROID) 200 mcg tablet 30 tablet 1 Sig: Take 1 tablet by mouth once daily. Thursday through Thursday, 1/2 tab on Thursday Kaylie George February 03, 2024 11:13 AM documented in this encounter [facility] 02-08-2024 Telephone encounter Note Orders replaced -- for some reason, her orders are defaulting to quest, which is why they are not being seen by out lab. I'm not sure why they are defaulting to quest. May want to verify coverage. [facility] 02-08-2024 Telephone encounter Note Prescription Refill Information The patient has been identified by name and date of : Yes Caregiver verified no other encounters exist for this prescription request: Yes Caregiver confirmed with patient/requestor that no other refills are due, in the near future, with this provider at this time: Yes The last office visit in the department: 11/25/2023 Does the patient have a future office visit with this provider/department: Yes Requested Prescriptions Pending Prescriptions Disp Refills SITagliptin-metFORMIN (JANUMET) 50-1,000 mg per tablet 60 tablet 1 Sig: Take 1 tablet by mouth two times a day with meals. Brandee Blackman February 08, 2024 1:35 PM [facility] 02-08-2024 Miscellaneous Notes Prescription Refill Information The patient has been identified by name and date of : Yes Caregiver verified no other encounters exist for this prescription request: Yes Caregiver confirmed with patient/requestor that no other refills are due, in the near future, with this provider at this time: Yes The last office visit in the department: 11/25/2023 Does the patient have a future office visit with this provider/department: Yes Requested Prescriptions Pending Prescriptions Disp Refills SITagliptin-metFORMIN (JANUMET) 50-1,000 mg per tablet 60 tablet 1 Sig: Take 1 tablet by mouth two times a day with meals. Brandee Blackman February 08, 2024 1:35 PM documented in this encounter [facility] 02-08-2024 Telephone encounter Note Patient called in requesting to go back to work. I did advise that she will have to discuss that with Oziel at her 2 week post op appointment. [facility] 02-08-2024 Miscellaneous Notes Patient called in requesting to go back to work. I did advise that she will have to discuss that with Oziel at her 2 week post op appointment. documented in this encounter [facility] 02-05-2024 Telephone encounter Note Images from the original note were not included. Dr. Tiwari's orders are still there. Dates are 11/25/23 - 02/24/24. [facility] 02-04-2024 Telephone encounter Note Agree with RN recs. Additionally, recommend diluting her urine with water when voiding to minimize irritation. She can also use baby wipes (I recommend Water Wipes brand) to gently clean the area after voiding/BMs. Will route to Dr. Lundy in case she has any add'l recs. Ellen Lambert APRN.ROSEANN [facility] Work Phone: 02-04-2024 Miscellaneous Notes Agree with RN recs. Additionally, recommend diluting her urine with water when voiding to minimize irritation. She can also use baby wipes (I recommend Water Wipes brand) to gently clean the area after voiding/BMs. Will route to Dr. Lundy in case she has any add'l recs. Ellen Lambert APRN.ROSEANN Verified name and . RN asked for clarification regarding itching and the rawness pt is experiencing. No discharge, no foul smelling odor. PT c/o more of the rawness that bothersome: achy when stands up, too sore to wipe after voiding. Itching internally pt thinks its from the stitches, pt states she can feel it rubbing inside. No itching around anus or external genitalia. Rn offered to make a sooner appointment to see Oziel Rolon CNP. PT denied since she has to use insurance to provide a ride to her appointments. Pt would like an at home remedy to help with the rawness and itching. RN suggested icing the area for 20 minutes at a time. Continue the Tylenol and Motrin every 3-4 hours Rn also explained the procedure she had and that everything was done going through the vaginal cavity and that she had a VAGINECTOMY PARTIAL, she maybe feeling the internal sutures and that they will dissolve over time. Vaginectomy: After the redundant vaginal epithelium was excised, the vaginal space was obliterated by closing the anterior vaginal wall incision to the posterior wall incision. This was continued until a finger was unable to penetrate more than 1-2 cm proximal to the hymenal ring. The introitus as then closed at the posterior fourchette in three layers using 3-O and 4-O Vicryl suture. Excellent hemostasis was noted. Pharmacy and Allergies verified. Patty Mukherjee RN 02/04/24 11:56 AM Note Patient calls and states that for the last couple of days she has experienced burning, rawness, and itching in vagina area. Patient has had soreness to her vagina. Patient reports that area is kind of raw in butt area. Patient asking if this is normal for after surgery? Answer Assessment - Initial Assessment Questions 1. SYMPTOM: Itching, rawness, burning 2. LOCATION: Both sides and inside and outside. 3. ONSET: For a couple of days feels worse today 4. PAIN: Patient rates pain 4 out of 10 5. ITCHING: Rates itching about 5 out of 10 6. CAUSE: Denies Discharge 7. OTHER SYMPTOMS: Itching Please review and advise, Lidia Landin RN 02/02/24 Surgery LOG ID: [id number] SURGERY/PROCEDURE DATE: 02/02/2024 INCISION/PROCEDURE START TIME: 12:01 PM INCISION CLOSE/PROCEDURE END TIME: 12:59 PM Surgeon(s)/Proceduralist(s) and Research Investigator(s): Surgeon(s): Florencia Lundy MD Fickau, Brittany, MD HYSTERECTOMY VAGINAL UTERUS 250G OR LESS REMOVAL TUBE(S) CYSTOSCOPY COMBINED ANTERIOPOSTERIOR COLPORRHAPHY W/ENTEROCELE REPAIR INCLUDING CYSTOURETHROSCOPY WHEN PERFORMED VAGINECTOMY PARTIAL documented in this encounter [facility] 02-04-2024 Telephone encounter Note Verified name and . RN asked for clarification regarding itching and the rawness pt is experiencing. No discharge, no foul smelling odor. PT c/o more of the rawness that bothersome: achy when stands up, too sore to wipe after voiding. Itching internally pt thinks its from the stitches, pt states she can feel it rubbing inside. No itching around anus or external genitalia. Rn offered to make a sooner appointment to see Oziel Rolon CNP. PT denied since she has to use insurance to provide a ride to her appointments. Pt would like an at home remedy to help with the rawness and itching. RN suggested icing the area for 20 minutes at a time. Continue the Tylenol and Motrin every 3-4 hours Rn also explained the procedure she had and that everything was done going through the vaginal cavity and that she had a VAGINECTOMY PARTIAL, she maybe feeling the internal sutures and that they will dissolve over time. Vaginectomy: After the redundant vaginal epithelium was excised, the vaginal space was obliterated by closing the anterior vaginal wall incision to the posterior wall incision. This was continued until a finger was unable to penetrate more than 1-2 cm proximal to the hymenal ring. The introitus as then closed at the posterior fourchette in three layers using 3-O and 4-O Vicryl suture. Excellent hemostasis was noted. Pharmacy and Allergies verified. Patty Mukherjee RN 02/04/24 11:56 AM Note Patient calls and states that for the last couple of days she has experienced burning, rawness, and itching in vagina area. Patient has had soreness to her vagina. Patient reports that area is kind of raw in butt area. Patient asking if this is normal for after surgery? Answer Assessment - Initial Assessment Questions 1. SYMPTOM: Itching, rawness, burning 2. LOCATION: Both sides and inside and outside. 3. ONSET: For a couple of days feels worse today 4. PAIN: Patient rates pain 4 out of 10 5. ITCHING: Rates itching about 5 out of 10 6. CAUSE: Denies Discharge 7. OTHER SYMPTOMS: Itching Please review and advise, Lidia Landin RN 02/02/24 Surgery LOG ID: [id number] SURGERY/PROCEDURE DATE: 02/02/2024 INCISION/PROCEDURE START TIME: 12:01 PM INCISION CLOSE/PROCEDURE END TIME: 12:59 PM Surgeon(s)/Proceduralist(s) and Research Investigator(s): Surgeon(s): Florencia Lundy MD Fickau, Brittany, MD HYSTERECTOMY VAGINAL UTERUS 250G OR LESS REMOVAL TUBE(S) CYSTOSCOPY COMBINED ANTERIOPOSTERIOR COLPORRHAPHY W/ENTEROCELE REPAIR INCLUDING CYSTOURETHROSCOPY WHEN PERFORMED VAGINECTOMY PARTIAL [facility] 02-04-2024 Telephone encounter Note Patient calls and states that for the last couple of days she has experienced burning, rawness, and itching in vagina area. Patient has had soreness to her vagina. Patient reports that area is kind of raw in butt area. Patient asking if this is normal for after surgery? Please review and advise, Lidia Landin RN Answer Assessment - Initial Assessment Questions 1. SYMPTOM: Itching, rawness, burning 2. LOCATION: Both sides and inside and outside. 3. ONSET: For a couple of days feels worse today 4. PAIN: Patient rates pain 4 out of 10 5. ITCHING: Rates itching about 5 out of 10 6. CAUSE: Denies Discharge 7. OTHER SYMPTOMS: Itching Protocols used: Vaginal [id number] [facility] 02-04-2024 Miscellaneous Notes Patient calls and states that for the last couple of days she has experienced burning, rawness, and itching in vagina area. Patient has had soreness to her vagina. Patient reports that area is kind of raw in butt area. Patient asking if this is normal for after surgery? Please review and advise, Lidia Landin RN Answer Assessment - Initial Assessment Questions 1. SYMPTOM: Itching, rawness, burning 2. LOCATION: Both sides and inside and outside. 3. ONSET: For a couple of days feels worse today 4. PAIN: Patient rates pain 4 out of 10 5. ITCHING: Rates itching about 5 out of 10 6. CAUSE: Denies Discharge 7. OTHER SYMPTOMS: Itching Protocols used: Vaginal [id number] documented in this encounter [facility] 02-04-2024 Telephone encounter Note Scheduled a triage visit since there is no documentation from surgeon office. [facility] 02-04-2024 Miscellaneous Notes Scheduled a triage visit since there is no documentation from surgeon office. Patient called with questions about her symptoms post hysterectomy. I asked if she has spoken to her surgeon, she said no. I transferred her to that provider's office, but she wanted a message sent to pcp so he is aware as well. documented in this encounter [facility] 02-04-2024 Telephone encounter Note Patient called with questions about her symptoms post hysterectomy. I asked if she has spoken to her surgeon, she said no. I transferred her to that provider's office, but she wanted a message sent to pcp so he is aware as well. [facility] 02-04-2024 Telephone encounter Note Spoke with pt and information listed below given. Pt verbalizes understanding. Spoke with the lab and the orders Dr. Tiwari had in for blood work was cancelled per Dr. Tiwari. If you want pt to come in new orders will need to be ordered and pt notified. Swathi Garcia LPN [facility] 02-03-2024 Telephone encounter Note Due for labs. Still has pended orders ordered by Dr. Tiwari. Please come in and get labs. July Cedillo APRN.VE[employer]ICLE [employer]IPMENT CLEANER [facility] 02-03-2024 Telephone encounter Note Prescription Refill Information The patient has been identified by name and date of : Yes Caregiver verified no other encounters exist for this prescription request: Yes Caregiver confirmed with patient/requestor that no other refills are due, in the near future, with this provider at this time: Yes The last office visit in the department: 11/25/23 Does the patient have a future office visit with this provider/department: Yes Requested Prescriptions Pending Prescriptions Disp Refills SUMAtriptan (IMITREX) 50 mg tablet 9 tablet 1 Sig: Take 1 tablet (50 mg) by mouth as needed for migraine headache (see administration instructions). levothyroxine (SYNTHROID) 200 mcg tablet 30 tablet 1 Sig: Take 1 tablet by mouth once daily. Thursday through Thursday, 1/ tab on Thursday Kaylie George February 03, 2024 11:13 AM [facility] 02-03-2024 Note Addended by: FLORENCIA LUNDY on: 02/03/2024 08:19 AM Modules accepted: Orders [facility] 02-03-2024 Miscellaneous Notes Addended by: FLORENCIA LUNDY on: 02/03/2024 08:19 AM Modules accepted: Orders documented in this encounter [facility] 02-03-2024 History of Present illness Narrative Post-op visit 58 year old female who underwent HYSTERECTOMY VAGINAL UTERUS 250G OR LESS REMOVAL TUBE(S) CYSTOSCOPY COMBINED ANTERIOPOSTERIOR COLPORRHAPHY W/ENTEROCELE REPAIR INCLUDING CYSTOURETHROSCOPY WHEN PERFORMED VAGINECTOMY PARTIAL on 02/02/24 for uterovaginal prolapse Her immediate post-op course was uncomplicated and she was discharged home from [facility] 02/02/24 on post-op day #1 Symptoms since surgery: Fever/chills: no Vaginal bleeding: minimal Pain: 3, alternating Tylenol and Motrin. RN suggested using ice packs for 20 minutes on Bladder complaints: good strong stream Bowel complaints: No, has not started the Miralax and Colace yet. Other issues: none Operative findings: No bladder, urethral or rectal injury. Bilateral efflux of urine from the ureteral orifices. Pathology: uterus, cervix and bilateral fallopian tubes Reviewed and updated past medical, surgical, family, social history, medications and allergies. There were no vitals taken for this visit. Patty Mukherjee RN documented in this encounter [facility] 02-02-2024 Note HNO ID: [id number] Author: CASSY VARMA RN Service: Nursing Author Type: Registered Nurse Type: Nursing Progress Note Filed: 02/02/2024 16:28 Note Text: PVR 390, Results called to Dr. Gordon Pt wants to sit up in chair, up to bedside chair [facility] 02-02-2024 Note HNO ID: [id number] Author: LEONORA ARREDONDO APRN.CRNA Service: ? Author Type: Nurse Sole Buffer Type: Anesthesia Procedure Notes Filed: 02/02/2024 12:03 Note Text: ANESTHESIOLOGY PROCEDURE NOTE Airway General Information Procedure Start Time/Medication Administration: 02/02/2024 11:50 AM Procedure End Time: 02/02/2024 11:51 AM Patient location during procedure: OR Timeout Performed Pre-procedure: timeout performed Consent Obtained: Yes Patient identity confirmed: arm band and patient Staffing AIR TOOL OPERATOR: Leonora Arredondo APRN.AIR TOOL OPERATOR Performed by: PATRICA Indications and Patient Condition Indications for airway management: anesthesia Preoxygenated: yes anesthesia circuit Patient position: sniffing Method: sleep Difficult Mask: No Final Airway Details Final airway type: endotracheal airway Final Endotracheal Airway: ETT Cuffed: yes Successful intubation technique: direct laryngoscopy Endotracheal tube insertion site: oral Blade: Lori Blade size: #3 ETT size (mm): 7.0 Measured from: teeth Measurement (cm): 21 Placement verified by: capnometry Cormack-Lehane Classification: grade I - full view of glottis Number of attempts at approach: 1 Failed airway: no Unrecognized esophageal intubation: no Airway not difficult Comments atraumatic SIGNATURE: Leonora Arredondo APRN.CRNA PATIENT NAME: Jesus Zepeda DATE: February 02, 2024 TIME: 12:03 PM CSN: [id number] [facility] 01-27-2024 Note HNO ID: [id number] Author: DAMIAN CULVER APRN.CNP Service: Anesthesiology Author Type: Nurse Practitioner Type: Progress Notes Filed: 01/27/2024 09:51 Note Text: Received and reviewed medical records from [facility] in [place]. KAILEY PAT red dot concerns - medical history and medical records from [place] cardiology, EKG and METs - reviewed with anesthesia, Dr. Benson. Okay to proceed with surgery. No further workup or optimization requested by anesthesia. No consults pending. [facility] 01-26-2024 History of Present illness Narrative Summary: PAT Images from the original note were not included. CC KAILEY please review with anesthesia. Patient has significant medical history and abnormal EKG today in PAT. Mets 2.75. COPD has has not followed up with pulm as recommended by PCP per patient. Will have SOBE. I will try to get last cardiology office notes from [place]. CC KAILEY please follow up. Patient has the following medical conditions which may affect emily-operative course: Chronic diastolic congestive heart failure (HCC) Managed by cardiology in [place]. 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 I will faxed request to [place] last office note. Patient states she has not seen cardiology for a year or more. Not on lasix -Dg LE edema noted today. Type 2 diabetes mellitus with diabetic neuropathy, with long-term current use of insulin (HCC) Managed by PCP Janet- victoriano two day before surgery. Check glucose DOS Hemoglobin A1C (%) Date Value 09/08/2023 5.8 10/01/2020 6.3 Chronic obstructive pulmonary disease (HCC) Managed by PCP who wants her to see pulmonary per patient. She has not yet scheduled an appointment with pulmonology. Denies COPD exacerbations in the last 6 months related to COPD. Does not use oxygen. Uses inhalers as prescribed. Uterine prolapse SEE [facility] , scheduled for surgery with Dr. Lundy 02-02-24 Aortic valve regurgitation Echo scanned in [facility] from 08-26-22: Essential hypertension, benign Well controlled per patient. Valsartan- hold day of surgery. See [facility] instructions for BP medications. HLD (hyperlipidemia) Atorvastatin 20 mg Pulmonary hypertension (HCC) Echo scanned in [facility] from 08-26-22 showed Mild Pulm HTN. Gastroesophageal reflux disease without esophagitis Protonix 40 mg. Anemia -CBC today. - oral iron supplement daily. Pre-op testing Patient has the following medical conditions which may affect emily-operative course addressed in assessment and plan today. Migraines Per patient last migraine was last week. Imitrex 50 mg Hernandez Activity Status Index: METS: Walk a block or two on level ground (2.75 METs) DASI Score: 2.75 (Would have SOBE with climbing stairs. Denies chest pain ) Clinical Frailty Scale: 4. Apparently vulnerable documented in this encounter [facility] 01-26-2024 Note HNO ID: [id number] Author: EDNA QURESHI APRN.ROSEANN Service: ? Author Type: Nurse Practitioner Type: Progress Notes Filed: 01/26/2024 16:08 Note Text: Summary: PAT CC KAILEY please review with anesthesia. Patient has significant medical history and abnormal EKG today in PAT. Mets 2.75. COPD has has not followed up with pulm as recommended by PCP per patient. Will have SOBE. I will try to get last cardiology office notes from [place]. CC KAILEY please follow up. Patient has the following medical conditions which may affect emily-operative course: Chronic diastolic congestive heart failure (HCC) Managed by cardiology in [place]. 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 I will faxed request to [place] last office note. Patient states she has not seen cardiology for a year or more. Not on lasix -Dg LE edema noted today. Type 2 diabetes mellitus with diabetic neuropathy, with long-term current use of insulin (HCC) Managed by PCP Jesse pastrana two day before surgery. Check glucose DOS Hemoglobin A1C (%) Date Value 09/08/2023 5.8 10/01/2020 6.3 Chronic obstructive pulmonary disease (HCC) Managed by PCP who wants her to see pulmonary per patient. She has not yet scheduled an appointment with pulmonology. Denies COPD exacerbations in the last 6 months related to COPD. Does not use oxygen. Uses inhalers as prescribed. Uterine prolapse SEE [facility] , scheduled for surgery with Dr. Lundy 02-02-24 Aortic valve regurgitation Echo scanned in [facility] from 08-26-22: Essential hypertension, benign Well controlled per patient. Valsartan- hold day of surgery. See PAT instructions for BP medications. HLD (hyperlipidemia) Atorvastatin 20 mg Pulmonary hypertension (HCC) Echo scanned in [facility] from 08-26-22 showed Mild Pulm HTN. Gastroesophageal reflux disease without esophagitis Protonix 40 mg. Anemia -CBC today. - oral iron supplement daily. Pre-op testing Patient has the following medical conditions which may affect emily-operative course addressed in assessment and plan today. Migraines Per patient last migraine was last week. Imitrex 50 mg Hernandez Activity Status Index: METS: Walk a block or two on level ground (2.75 METs) DASI Score: 2.75 (Would have SOBE with climbing stairs. Denies chest pain ) Clinical Frailty Scale: 4. Apparently vulnerable [facility] 01-26-2024 Instructions Edna Qureshi APRN.VEHICLE AND EQUIPMENT CLEANER - 01/26/2024 10:31 AM EDT PATIENT PREOPERATIVE INSTRUCTIONS Florencia Lundy MD has scheduled you for your procedure at this surgery center: [facility]: [phone], [address] [address] Please read below carefully for your personalized instructions. SURGERY DATE: 02-02-2024 Your surgeon's office will provide you with your ARRIVAL TIME for surgery. -If you have not received an arrival time by the afternoon before your surgery date, please follow up with your surgeon's office. - If you are scheduled for Thursday surgery, please make sure you have your arrival time by Thursday afternoon. -Please be aware that emergency situations arise, which may delay or change your surgical time. If this happens, your surgeon's office will notify you as soon as possible and regret any inconvenience. You need a responsible person to stay and wait for you at the hospital or surgery center during your procedure. - -If you are undergoing an outpatient procedure you must have someone drive you home and stay with you for 24 hours. Your ride home must be at least 18 years old or older. Your surgery may be cancelled if you do not have someone to drive you home or take care of you for 24 hours. Dietary Restrictions: - Nothing to eat or drink after midnight except for a sip of water with approved medications. This is important because if you do, your surgery may have to be cancelled Blood Thinning Medications: Stop NSAIDS. -DO NOT TAKE (Ibuprofen, Advil, Aleve, Motrin, Naproxen, Celebrex, Mobic, Voltaren, Diclofenac etc.) 7 days before surgery, or as directed by your surgeon. IF YOU TAKE ANY OF THE FOLLOWING BLOOD THINNERS, PLEASE CONTACT YOUR SURGEON AND THE PHYSICIAN WHO PRESCRIBES IT FOR YOU IN ORDER TO GET PERIOPERATIVE INSTRUCTIONS SOON POSSIBLE. BLOOD THINNERS: Aspirin, Coumadin, Plavix, Eliquis, Pradaxa, Xarelto, Lovenox, Brilinta, Effient, Savaysa, Arixtra, etc - Stop Vitamin E, fish oil, multivitamins, Marijuana, CBD oil and other over the counter herbals and dietary supplements 7 days before surgery. -This would not apply to cancer patients who are prescribed Marinol or any other prescription form on marijuana or CBD. - You may take Tylenol (Acetaminophen) or any of your pain medications that do not contain aspirin or NSAIDS as needed. Preoperative Instructions for Patients with Diabetes Mellitus: Please follow up with the provider that manages your diabetes and how to prepare you for surgery. Do not take the morning of surgery: Trajenta, Metformin, Actos/Pioglitazone and Amaryl/Glimepiride. For the following Medications, please HOLD 2 DAYS PRIOR TO SURGERY: Glucotrol/Glipizide, Januvia/Sitagliptin, Glyburide, Prandin/Repaglinide, Starlix/Nateglinide, Symlin/Pramlintide For the following Medications, please HOLD 3 DAYS PRIOR TO SURGERY: Canagliflozin/Invokana, Dapagliflozin/Farxiga ,Empagliflozin/Jardiance, Invokamet/canagliflozin and metformin, Xigduo XR/ dapagliglozin and metformin, Glyxambi/ empagliflozin and metformin, Syndardy/ empagliflozin and metformin For the following Medications, please HOLD 4 DAYS PRIOR TO SURGERY: Ertugliflozin/Steglatro For the following Medications, please HOLD 7 DAYS PRIOR TO SURGERY: GLP-1 AGONIST: Adlyxin (lixisenatide), Bydureon BCise (exenatide suspension), Byetta (exenatide), Mounjaro (tirzepatide), Ozempic (semaglutide injection), Rybelsus (semaglutide tablets), Tanzeum (albiglutide), Trulicity (dulaglutide), Victoza (liraglutide), Wegovy (semaglutide), Saxenda (liraglutide) Insulin Medication Instructions: Please follow up with the provider that manages your Insulin and how to prepare you for surgery. Medications: Approved medications to take the morning of surgery with a sip of water: BP, Heart, thyroid, psych, seizure, and pain medications excluding NSAIDS. Use inhalers as prescribed. Please bring inhalers day of surgery. If you take an LILIANA inhibitors (Angiotensin-converting enzyme inhibitors) and Angiotensin II receptor blockers (ARBs) for your blood pressure please Hold that medication day of surgery. Medications: Unless instructed differently below, stay on all of your medications until your surgery. If you start any new medications after today's visit, please contact your surgeon. Approved medications to take the morning of surgery with a sip of water: Pre Surgery Med Instructions Medication instructions albuterol HFA (PROVENTIL HFA, VENTOLIN HFA) 90 mcg/actuation inhaler CONTINUE PRESCRIBED. BRING DAY OF SURGERY atorvastatin (LIPITOR) 20 mg tablet CONTINUE PRESCRIBED budesonide-formoterol (SYMBICORT) 160-4.5 mcg/actuation inhaler CONTINUE PRESCRIBED carvedilol (COREG) 25 mg tablet CONTINUE PRESCRIBED. TAKE DAY OF SURGERY WITH SIP OF WATER. fluorometholone (FML LIQUID FILM) 0.1 % ophthalmic suspension CONTINUE PRESCRIBED iron dwain,ps-FA-B-C#12-succ 65 mg-65 mg -1,000 mcg (24) tab HOLD DAY OF SURGERY levothyroxine (SYNTHROID) 200 mcg tablet CONTINUE PRESCRIBED. TAKE DAY OF SURGERY WITH SIP OF WATER. pantoprazole DR (PROTONIX) 40 mg tablet CONTINUE PRESCRIBED. TAKE DAY OF SURGERY WITH SIP OF WATER. SITagliptin-metFORMIN (JANUMET) 50-1,000 mg per tablet Stop 2 days before surgery sucralfate (CARAFATE) 1 gram tablet CONTINUE PRESCRIBED SUMAtriptan (IMITREX) 50 mg tablet CONTINUE PRESCRIBED valsartan (DIOVAN) 160 mg tablet HOLD DAY OF SURGERY Weight loss medications: Sympathomimetics such as Adipex-P (Phentermine): Stop 4 days before surgery. Contrave (Naltrexone/Bupropion) Hold 2-3 days. Qsymia (Phentermine/Topiramate - Please contact your prescribing provider for Pre op directions. ( depending on the patients dose this medication may need tapered off. They should get pre op directions from their prescribing provider.) GLP-1 Agonists (oral and injectables) Hold 7 days. If you start any new medications after today's visit, please contact the surgeon's office. Important Reminders: - Candy, mints, and tobacco products are NOT permitted the morning of surgery. - Hearing aids, dentures and glasses may be worn the morning of surgery. - NO jewelry, body piercings, makeup, hairpins or contacts are to be worn the day of surgery. -If you use CPAP/BIPAP, you can bring the machine with you the day of surgery. - If you are prescribed inhalers for breathing, continue using them AND bring them to the surgery center. -- Leave ALL valuables and money at home or with family members. -Oral hygiene and a shower or bath are required the evening before or the morning of surgery. - NO lotion, creams, powders or deodorants on the skin the day of surgery. -Wear loose, comfortable clothing that will accommodate bandages. -Your length of stay will be determined by your surgeon -- If you have a stimulator, implant or pump that requires a remote please bring the remote with you the day of surgery. - You will need to have someone else (Family or friend) drive you home once discharged from the hospital. You are not allowed to drive yourself home after surgery. - YOU MUST HAVE A RESPONSIBLE DIFFUSION OPERATOR TO TAKE YOU HOME. A DAYLIGHT DRILLER, CAB OR UBER DIFFUSION OPERATOR CANNOT BE MADE A RESPONSIBLE DIFFUSION OPERATOR. - You cannot stay in a hotel alone after outpatient surgery. You will not be permitted to have your surgery, if you do not have someone to take care of you. -It is recommended patients have a 72-hour period between getting their vaccine and date of surgery. If you develop symptoms such as a fever, cold, or flu, or have other changes to your health within TWO DAYS of scheduled surgery or the morning of surgery, please contact the surgery center above. Visitors to any [facility] facility: An individual who is sick should not visit. Visitors to patients with COVID-19 must follow these guidelines, which include wearing a mask, eye protection, gown and gloves. [facility]- Visitations are: Visitation hours are from 7 a.m. to 9 p.m. Pre- Surgery-Patients may have up to two visitors at a time. PACU-Patients may have up to 1-2 visitors at a time. Personal Belongings: -Please have your photo ID and insurance cards. -If you do not have a copy of advance directives on file with us, please bring a copy with you on the day of surgery. If you already have an Advance Directive, please fax a copy to [phone] or email to for it to be added to your chart. If you do not have an Advance Directive, you can find the appropriate form and more information at [email or web address]. We recommend that you complete the Advance Directive form found on the website and bring it with you the day of your surgery. It can be witnessed and scanned into your chart that day. documented in this encounter [facility] 01-26-2024 History and physical note Images from the original note were not included. [facility] HISTORY AND PHYSICAL EXAMINATION SERVICE DATE: 01/26/2024 SERVICE TIME: 3:55 PM PRIMARY CARE PHYSICIAN: Barak Tiwari MD Assessment Patient has the following medical conditions which may affect emily-operative course: Chronic diastolic congestive heart failure (HCC) Managed by cardiology in [place]. 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 I will faxed request to [place] last office note. Patient states she has not seen cardiology for a year or more. Not on lasix -Dg LE edema noted today. Type 2 diabetes mellitus with diabetic neuropathy, with long-term current use of insulin (HCC) Managed by PCP Jesse pastrana two day before surgery. Check glucose DOS Hemoglobin A1C (%) Date Value 09/08/2023 5.8 10/01/2020 6.3 Chronic obstructive pulmonary disease (HCC) Managed by PCP who wants her to see pulmonary per patient. She has not yet scheduled an appointment with pulmonology. Denies COPD exacerbations in the last 6 months related to COPD. Does not use oxygen. Uses inhalers as prescribed. Uterine prolapse SEE [facility] , scheduled for surgery with Dr. uLndy 02-02-24 Aortic valve regurgitation Echo scanned in [facility] from 08-26-22: Essential hypertension, benign Well controlled per patient. Valsartan- hold day of surgery. See PAT instructions for BP medications. HLD (hyperlipidemia) Atorvastatin 20 mg Pulmonary hypertension (HCC) Echo scanned in [facility] from 08-26-22 showed Mild Pulm HTN. Gastroesophageal reflux disease without esophagitis Protonix 40 mg. Anemia -CBC today. - oral iron supplement daily. Pre-op testing Patient has the following medical conditions which may affect emily-operative course addressed in assessment and plan today. Migraines Per patient last migraine was last week. Imitrex 50 mg Hernandez Activity Status Index: METS: Walk a block or two on level ground (2.75 METs) DASI Score: 2.75 (Would have SOBE with climbing stairs. Denies chest pain ) Clinical Frailty Scale: 4. Apparently vulnerable ARISCAT Score: Age: 51-80 Preoperative SpO2: 91-95% Respiratory infection in the last month: No Preoperative anemia: Yes Surgical incision: upper abdominal Duration of surgery: 2-3 hrs Emergency procedure: No ARISCAT Score: 53 ANESTHESIA FINDINGS: Intubation History: No history of difficult intubation. No abnormal airway history Significant Anesthesia Considerations: none Airway History: No history of difficult airway No abnormal airway history I - PHYSICAL EVALUATION AIRWAY Patient intubated: No. DENTAL Normal dental observations. Dental findings: teeth intact. II - ANESTHESIA PLAN Anesthetic Plan: general Beta Ashley Monitoring Plan Post Procedure Analgesic Plan Prepared for Surgery: . NO CONSULTS PENDING CONSULTS: The following consults have been initiated at this time: anesthesia. Planned Anesthetic: general The Following Tests/Procedures Have Been Initiated: Orders Placed This Encounter BASIC METABOLIC PNL Standing Status: Future Number of Occurrences: 1 Standing Expiration Date: 04/26/2024 CBC Standing Status: Future Number of Occurrences: 1 Standing Expiration Date: 04/26/2024 ECG COMPLETE Standing Status: Future Standing Expiration Date: 01/25/2025 REASON FOR VISIT: Jesus Zepeda is a 58 year old female who is scheduled for Procedure(s): HYSTERECTOMY VAGINAL UTERUS 250G OR LESS REMOVAL TUBE(S) AND/OR OVARY(S) (N/A) CYSTOSCOPY (N/A) COMBINED ANTERIOPOSTERIOR COLPORRHAPHY W/ENTEROCELE REPAIR INCLUDING CYSTOURETHROSCOPY WHEN PERFORMED (Bilateral) VAGINECTOMY PARTIAL (Bilateral) at the request of Dr. Florencia Lundy for routine H&P. My final recommendation will be communicated back to the requesting physician by way of shared medical record or letter. Subjective The patient has the following: COVID-19 Immunization Status Overdue - Covid-19 Vaccine () Overdue since 12/27/2023 11/25/2023 Postponed until 11/24/2024 by Barak Tiwari MD (Declined at this time) 07/18/2022 Postponed until 07/19/2023 by Barak Tiwari MD (Declined at this time) 10/09/2020 Imm Admin: COVID-19 original vaccine, full dose, monovalent (MODERNA) Only the first 3 history entries have been loaded, but more history exists. CHIEF COMPLAINT: The reason for this visit is to perform a comprehensive review of the patient's past medical history, assess their current health status and obtain any additional testing required based on anesthesia guidelines. We will also identify any potential anesthesia problems or contraindications to the planned procedure. HPI: Jesus Zepeda is a 58 year old female that presents for pre-anesthesia testing. She has a history of uterine prolapse. Prolapse has got worse the last two years. She had pressure with standing long periods. It is starting to be uncomfortable sitting she can feel the prolapse. She has difficulty urinating sometimes. Denies dysuria or hematuria. After discussion with the surgeon patient has agreed to surgical intervention. REVIEW OF SYSTEMS: General: No weight loss, malaise or fevers. Neurological: Negative for: multiple sclerosis, Parkinson's disease, seizures, TIA and strokes. Respiratory: Positive for: asthma, COPD, obstructive sleep apnea and CPAP/BiPAP noncompliant. Negative for: current cough, dyspnea, home oxygen, orthopnea, pneumonia within 6 weeks, tobacco use and URI < 2 weeks. Cardiovascular: Positive for: CHF, DVT/PE (5 YEARS AGO HAD PE), hyperlipidemia and hypertension Negative for: AICD/PPM, atrial fibrillation, CAD, chest pain, recent [place], murmur/valvular heart disease and valve surgery. GI: Positive for: GERD and irritable bowel syndrome Negative for: abdominal pain, dysphagia, diverticulitis, heartburn, hepatitis, liver disease, nausea and vomiting. : See HPI. Positive for: nephrolithiasis. Negative for: decreased stream, on dialysis, dysuria, frequent urination, hematuria, urinary incontinence, nocturia >1 time per night and urgency. DIRECTOR OF GLOBAL TALENT: See HPI. YOUSIF 2004 Endocrine: Positive for: diabetes mellitus and hypothyroidism. Patient's diabetes mellitus is controlled by oral agents. Negative for: hyperthyroidism. Hematology: Positive for: anemia (04/2022 HAD BLOOD TRANSFUSIONS). Negative for: hemophilia, thrombocytopenia, transfusion of at least 4 units within 72 hours prior to surgery and chronic anti-coagulation/platelet meds. Oncology: Negative for: chemo within 30 days and radiotherapy within 90 days. Psych: Negative for: anxiety, bipolar disorder and depression. Musculoskeletal: Positive for: joint pain (DG KNEE) and swelling (DG LE). Negative for: back pain and rheumatoid arthritis. Skin: Negative for lesions, rash and itching. PAST MEDICAL HISTORY Diagnosis Date Abnormal Pap smear of cervix 09/2020 lgsil/+HPV 11/14 colp benign 08/18 ascus/+HPV 09/17 colp LGSIL Adjustment disorder with depressed mood Chronic hypoxemic respiratory failure (HCC) Esophageal reflux Essential hypertension, benign Generalized anxiety disorder GI bleed HLD (hyperlipidemia) Hx of blood transfusion reaction Hypertension Kidney stones Menorrhagia Migraine without aura Morbid obesity (HCC) Nonspecific abnormal results of other endocrine function study 06/2004 Benign biopsy. Abnormally high thyroid globulin HARMONY (obstructive sleep apnea) Pulmonary emboli (HCC) 09/2013 Bilateral on CTA chest. Scleritis Type II or unspecified type diabetes mellitus without mention of complication, not stated as uncontrolled Uterine prolapse PAST SURGICAL HISTORY Procedure Laterality Date CARPAL TUNNEL Right 11/2015 CHOLECYSTECTOMY 11/15/2019 Dr. Ferguson CYSTOMETROGRAM 12/29/2023 CYSTOSCOPY 12/29/2023 EGD 03/07/2020 Dr Ferguson THYROID BIOPSY US 11/2015 THYROIDECTOMY TOTAL/COMPLETE Left 12/13/2018 Dr Ferguson TOTAL THYROID LOBECTOMY UNI W/WO ISTHMUSECTOMY 01/15/2007 right TUBAL LIGATION 1988 XCAPSL CTRC RMVL INSJ IO LENS PROSTH W/O ECP Right 06/2015 Cataract Extraction with PC IOL XCAPSL CTRC RMVL INSJ IO LENS PROSTH W/O ECP Left 07/2015 Cataract Extraction with PC IOL FAMILY HISTORY Problem Relation Age of Onset Hypertension Mother Diabetes Mother Thyroid Mother thyroidectomy other (heart murmur) Mother Heart Attack Father Diabetes Brother Hypertension Brother No Known Problems Brother Pneumothorax Maternal Grandmother No Known Problems Daughter No Known Problems Son Breast Cancer Maternal Aunt Metastatic to bone other (Other) Other No DVT or PE. Social History Tobacco Use Smoking status: Never Smokeless tobacco: Never Tobacco comments: FAther smoking in childhood home. Has lived with smoker in home, son quit about 2015. Vaping Use Vaping status: Never Used Substance Use Topics Alcohol use: Not Currently Drug use: Never Prior to Admission medications as of 01/26/24 1004 Medication Sig Last Dose Taking iron bisgly,ps-FA-B-C#12-succ 65 mg-65 mg -1,000 mcg (24) tab Take by mouth two times a day. Taking Yes sucralfate (CARAFATE) 1 gram tablet Take 1 tablet by mouth two times a day. Taking Yes SUMAtriptan (IMITREX) 50 mg tablet Take 1 tablet (50 mg) by mouth as needed for migraine headache (see administration instructions). Taking Yes levothyroxine (SYNTHROID) 200 mcg tablet Take 1 tablet by mouth once daily. Thursday through Thursday, 1/2 tab on Thursday Taking Yes valsartan (DIOVAN) 160 mg tablet Take 1 tablet by mouth once daily. Taking Yes SITagliptin-metFORMIN (JANUMET) 50-1,000 mg per tablet Take 1 tablet by mouth two times a day with meals. Taking Yes carvedilol (COREG) 25 mg tablet Take 0.5 tablets by mouth two times a day. Taking Yes pantoprazole DR (PROTONIX) 40 mg tablet Take 1 tablet by mouth two times a day. Take on empty stomach, 1/2 hr before meal. Taking Yes albuterol HFA (PROVENTIL HFA, VENTOLIN HFA) 90 mcg/actuation inhaler Inhale 2 Puffs as instructed every 6 hours as needed. Taking Yes budesonide-formoterol (SYMBICORT) 160-4.5 mcg/actuation inhaler Inhale 2 Puffs as instructed two times a day. Taking Yes atorvastatin (LIPITOR) 20 mg tablet Take 1 tablet by mouth once daily. For cholesterol. Taking Yes fluorometholone (FML LIQUID FILM) 0.1 % ophthalmic suspension INSTILL 1 DROP IN BOTH EYES 1-2 TIMES PER DAY Taking Yes ondansetron (ZOFRAN) 4 mg tablet Take 1 tablet by mouth every 8 hours as needed for nausea/vomiting (after surgery). For postop nausea as needed. blood sugar diagnostic (BLOOD GLUCOSE TEST) test strip Test blood sugar(s) 4 times daily. Dx: Type 2 DM - Controlled E11.9 Insulin: Yes Lancets lancets Test blood sugar(s) 4 times daily. Dx: Type 2 DM - Controlled E11.9 Insulin: Yes blood sugar diagnostic (BLOOD GLUCOSE TEST) test strip Test blood sugar(s) 4 times daily. Dx: Type 2 DM - Controlled E11.9 Insulin: Yes No medication comments found. ALLERGIES Allergen Reactions Latex Itching Prinivil [Lisinopri* Cough Zanaflex [Tizanidin* Shortness of Breath Objective PHYSICAL EXAM: General: alert and oriented, healthy appearance and obese. Pertinent negatives noted - not distressed and not confused. Skin: normal color, no rash or lesions. HEENT: Cardiovascular: regular rate and rhythm, normal S1 and S2, no rub, murmurs, or gallop. Respiratory: normal breath sounds, no wheezes or crackles. Abdomen: bowel sounds present and soft. Pertinent negatives noted - not tender. Extremities: Positive for edema (pitting edema noted around both ankles. per patient this is her basline.). Pertinent negatives noted - no cellulitis, no clubbing and no deformity. Neurological: Positive for abnormal gait (fall risk). Pertinent negatives noted - no confusion, no abnormal sensation and no speech abnormality. PAIN ASSESSMENT: VITALS: BP 152/80 Pulse 55 Temp (Src) 98.2 (Temporal) Resp 14 Ht 5' 5 (1.65m) Wt 216 lb (98.0kg) SpO2 95[RM AIR]% LMP 03/21/2005 BMI 35.94 kg/(m^2). Diagnostic tests reviewed for today's visit: Lab Value Units Date High Low HB 10.8 g/dL 01/26/2024 15.5 11.5 HCT 34.6 % 01/26/2024 46.0 36.0 WBC 6.01 k/uL 01/26/2024 11.00 3.70 PLT 237 k/uL 01/26/2024 400 150 NA 135 mmol/L 01/26/2024 144 136 K 4.5 mmol/L 01/26/2024 5.1 3.7 GLUC 92 mg/dL 01/26/2024 99 74 BUN 19 mg/dL 01/26/2024 21 7 CREAT 0.82 mg/dL 01/26/2024 0.96 0.58 PTSEC No results within date range. INR No results within date range. APTT No results within date range. ALT No results within date range. AST No results within date range. TBILI No results within date range. TSH No results within date range. Lab Value Units Date High Low HCGQT No results within date range. UHCG No results within date range. HCG, BODY* No results within date range. Lab Value Units Date High Low ABORHD No results within date range. ABSCREEN No results within date range. Hemoglobin A1C (%) Date Value 09/08/2023 5.8 05/23/2022 5.8 12/18/2021 6.0 07/12/2021 6.1 10/01/2020 6.3 04/12/2020 6.1 07/13/2019 6.3 11/03/2018 6.1 02/01/2018 7.0 No results found for this or any previous visit (from the past 8760 hour(s)). Recent Results (from the past 32332 hour(s)) ECHO Collection Time: 07/12/21 8:51 AM Impression CONCLUSIONS: - Exam indication: Cardiac murmur - The left ventricle is normal in size. Left ventricular systolic function is normal. EF = 62 5% (2D biplane) Indeterminate left ventricular diastolic dysfunction. - The right ventricle is normal in size. Right ventricular systolic function is normal. - The left atrial cavity is mildly dilated. - There are no significant valvular abnormalities. - Exam was compared with the prior echocardiographic exam performed on 06/22/2017, no significant change. * * * Final * * * ARISCAT risk index interpretation 0 to 25 points: Low risk: 1.6% pulmonary complication rate 26 to 44 points: Intermediate risk: 13.3% pulmonary complication rate 45 to 123 points: High risk: 42.1% pulmonary complication rate Implantable Devices: None The Following Tests/Procedures Have Been Initiated: NO LABS ORDERED BY SURGEON FOR PAT. ORDERED TODAY EKG, CBC, BMP Assessment/Plan Uterine prolapse [N81.4] Midline cystocele [N81.11] Rectocele [N81.6] PLAN Planned Procedure: Procedure(s): HYSTERECTOMY VAGINAL UTERUS 250G OR LESS REMOVAL TUBE(S) AND/OR OVARY(S) (N/A) CYSTOSCOPY (N/A) COMBINED ANTERIOPOSTERIOR COLPORRHAPHY W/ENTEROCELE REPAIR INCLUDING CYSTOURETHROSCOPY WHEN PERFORMED (Bilateral) VAGINECTOMY PARTIAL (Bilateral) I spent a total of 50 minutes on the date of the service which included preparing to see the patient, [id number] patient care, completing clinical documentation, obtaining and/or reviewing separately obtained history, performing a medically appropriate examination, counseling and educating the patient/family/caregiver, and ordering medications, tests, or procedures. Instructions Given to Patient: Instructions located in the after visit summary. Patient given verbal and written preop instructions and voices comprehension and compliance. SIGNATURE: Edna Qureshi APRN.CNP PATIENT NAME: Jesus Zepeda DATE: January 26, 2024 TIME: 9:53 AM PAGER/CONTACT #: [facility] 01-26-2024 History and physical note Images from the original note were not included. [facility] HISTORY AND PHYSICAL EXAMINATION SERVICE DATE: 01/26/2024 SERVICE TIME: 3:55 PM PRIMARY CARE PHYSICIAN: Barak Tiwari MD Assessment Patient has the following medical conditions which may affect emily-operative course: Chronic diastolic congestive heart failure (HCC) Managed by cardiology in [place]. 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 I will faxed request to [place] last office note. Patient states she has not seen cardiology for a year or more. Not on lasix -Dg LE edema noted today. Type 2 diabetes mellitus with diabetic neuropathy, with long-term current use of insulin (HCC) Managed by PCP Jesse pastrana two day before surgery. Check glucose DOS Hemoglobin A1C (%) Date Value 09/08/2023 5.8 10/01/2020 6.3 Chronic obstructive pulmonary disease (HCC) Managed by PCP who wants her to see pulmonary per patient. She has not yet scheduled an appointment with pulmonology. Denies COPD exacerbations in the last 6 months related to COPD. Does not use oxygen. Uses inhalers as prescribed. Uterine prolapse SEE [facility] , scheduled for surgery with Dr. Lundy 02-02-24 Aortic valve regurgitation Echo scanned in [facility] from 08-26-22: Essential hypertension, benign Well controlled per patient. Valsartan- hold day of surgery. See PAT instructions for BP medications. HLD (hyperlipidemia) Atorvastatin 20 mg Pulmonary hypertension (HCC) Echo scanned in [facility] from 08-26-22 showed Mild Pulm HTN. Gastroesophageal reflux disease without esophagitis Protonix 40 mg. Anemia -CBC today. - oral iron supplement daily. Pre-op testing Patient has the following medical conditions which may affect emily-operative course addressed in assessment and plan today. Migraines Per patient last migraine was last week. Imitrex 50 mg Hernandez Activity Status Index: METS: Walk a block or two on level ground (2.75 METs) DASI Score: 2.75 (Would have SOBE with climbing stairs. Denies chest pain ) Clinical Frailty Scale: 4. Apparently vulnerable ARISCAT Score: Age: 51-80 Preoperative SpO2: 91-95% Respiratory infection in the last month: No Preoperative anemia: Yes Surgical incision: upper abdominal Duration of surgery: 2-3 hrs Emergency procedure: No ARISCAT Score: 53 ANESTHESIA FINDINGS: Intubation History: No history of difficult intubation. No abnormal airway history Significant Anesthesia Considerations: none Airway History: No history of difficult airway No abnormal airway history I - PHYSICAL EVALUATION AIRWAY Patient intubated: No. DENTAL Normal dental observations. Dental findings: teeth intact. II - ANESTHESIA PLAN Anesthetic Plan: general Beta Ashley Monitoring Plan Post Procedure Analgesic Plan Prepared for Surgery: . NO CONSULTS PENDING CONSULTS: The following consults have been initiated at this time: anesthesia. Planned Anesthetic: general The Following Tests/Procedures Have Been Initiated: Orders Placed This Encounter BASIC METABOLIC PNL Standing Status: Future Number of Occurrences: 1 Standing Expiration Date: 04/26/2024 CBC Standing Status: Future Number of Occurrences: 1 Standing Expiration Date: 04/26/2024 ECG COMPLETE Standing Status: Future Standing Expiration Date: 01/25/2025 REASON FOR VISIT: Jesus Zepeda is a 58 year old female who is scheduled for Procedure(s): HYSTERECTOMY VAGINAL UTERUS 250G OR LESS REMOVAL TUBE(S) AND/OR OVARY(S) (N/A) CYSTOSCOPY (N/A) COMBINED ANTERIOPOSTERIOR COLPORRHAPHY W/ENTEROCELE REPAIR INCLUDING CYSTOURETHROSCOPY WHEN PERFORMED (Bilateral) VAGINECTOMY PARTIAL (Bilateral) at the request of Dr. Florencia Lundy for routine H&P. My final recommendation will be communicated back to the requesting physician by way of shared medical record or letter. Subjective The patient has the following: COVID-19 Immunization Status Overdue - Covid-19 Vaccine () Overdue since 12/27/2023 11/25/2023 Postponed until 11/24/2024 by Barak Tiwari MD (Declined at this time) 07/18/2022 Postponed until 07/19/2023 by Barak Tiwari MD (Declined at this time) 10/09/2020 Imm Admin: COVID-19 original vaccine, full dose, monovalent (MODERNA) Only the first 3 history entries have been loaded, but more history exists. CHIEF COMPLAINT: The reason for this visit is to perform a comprehensive review of the patient's past medical history, assess their current health status and obtain any additional testing required based on anesthesia guidelines. We will also identify any potential anesthesia problems or contraindications to the planned procedure. HPI: Jesus Zepeda is a 58 year old female that presents for pre-anesthesia testing. She has a history of uterine prolapse. Prolapse has got worse the last two years. She had pressure with standing long periods. It is starting to be uncomfortable sitting she can feel the prolapse. She has difficulty urinating sometimes. Denies dysuria or hematuria. After discussion with the surgeon patient has agreed to surgical intervention. REVIEW OF SYSTEMS: General: No weight loss, malaise or fevers. Neurological: Negative for: multiple sclerosis, Parkinson's disease, seizures, TIA and strokes. Respiratory: Positive for: asthma, COPD, obstructive sleep apnea and CPAP/BiPAP noncompliant. Negative for: current cough, dyspnea, home oxygen, orthopnea, pneumonia within 6 weeks, tobacco use and URI < 2 weeks. Cardiovascular: Positive for: CHF, DVT/PE (5 YEARS AGO HAD PE), hyperlipidemia and hypertension Negative for: AICD/PPM, atrial fibrillation, CAD, chest pain, recent [place], murmur/valvular heart disease and valve surgery. GI: Positive for: GERD and irritable bowel syndrome Negative for: abdominal pain, dysphagia, diverticulitis, heartburn, hepatitis, liver disease, nausea and vomiting. : See HPI. Positive for: nephrolithiasis. Negative for: decreased stream, on dialysis, dysuria, frequent urination, hematuria, urinary incontinence, nocturia >1 time per night and urgency. DIRECTOR OF GLOBAL TALENT: See HPI. YOUSIF 2004 Endocrine: Positive for: diabetes mellitus and hypothyroidism. Patient's diabetes mellitus is controlled by oral agents. Negative for: hyperthyroidism. Hematology: Positive for: anemia (04/2022 HAD BLOOD TRANSFUSIONS). Negative for: hemophilia, thrombocytopenia, transfusion of at least 4 units within 72 hours prior to surgery and chronic anti-coagulation/platelet meds. Oncology: Negative for: chemo within 30 days and radiotherapy within 90 days. Psych: Negative for: anxiety, bipolar disorder and depression. Musculoskeletal: Positive for: joint pain (DG KNEE) and swelling (DG LE). Negative for: back pain and rheumatoid arthritis. Skin: Negative for lesions, rash and itching. PAST MEDICAL HISTORY Diagnosis Date Abnormal Pap smear of cervix 09/2020 lgsil/+HPV 11/14 colp benign 08/18 ascus/+HPV 09/17 colp LGSIL Adjustment disorder with depressed mood Chronic hypoxemic respiratory failure (HCC) Esophageal reflux Essential hypertension, benign Generalized anxiety disorder GI bleed HLD (hyperlipidemia) Hx of blood transfusion reaction Hypertension Kidney stones Menorrhagia Migraine without aura Morbid obesity (HCC) Nonspecific abnormal results of other endocrine function study 06/2004 Benign biopsy. Abnormally high thyroid globulin HARMONY (obstructive sleep apnea) Pulmonary emboli (HCC) 09/2013 Bilateral on CTA chest. Scleritis Type II or unspecified type diabetes mellitus without mention of complication, not stated as uncontrolled Uterine prolapse PAST SURGICAL HISTORY Procedure Laterality Date CARPAL TUNNEL Right 11/2015 CHOLECYSTECTOMY 11/15/2019 Dr. Ferguson CYSTOMETROGRAM 12/29/2023 CYSTOSCOPY 12/29/2023 EGD 03/07/2020 Dr Ferguson THYROID BIOPSY US 11/2015 THYROIDECTOMY TOTAL/COMPLETE Left 12/13/2018 Dr Ferguson TOTAL THYROID LOBECTOMY UNI W/WO ISTHMUSECTOMY 01/15/2007 right TUBAL LIGATION 1988 XCAPSL CTRC RMVL INSJ IO LENS PROSTH W/O ECP Right 06/2015 Cataract Extraction with PC IOL XCAPSL CTRC RMVL INSJ IO LENS PROSTH W/O ECP Left 07/2015 Cataract Extraction with PC IOL FAMILY HISTORY Problem Relation Age of Onset Hypertension Mother Diabetes Mother Thyroid Mother thyroidectomy other (heart murmur) Mother Heart Attack Father Diabetes Brother Hypertension Brother No Known Problems Brother Pneumothorax Maternal Grandmother No Known Problems Daughter No Known Problems Son Breast Cancer Maternal Aunt Metastatic to bone other (Other) Other No DVT or PE. Social History Tobacco Use Smoking status: Never Smokeless tobacco: Never Tobacco comments: FAther smoking in childhood home. Has lived with smoker in home, son quit about 2015. Vaping Use Vaping status: Never Used Substance Use Topics Alcohol use: Not Currently Drug use: Never Prior to Admission medications as of 01/26/24 1004 Medication Sig Last Dose Taking iron bisgly,ps-FA-B-C#12-succ 65 mg-65 mg -1,000 mcg (24) tab Take by mouth two times a day. Taking Yes sucralfate (CARAFATE) 1 gram tablet Take 1 tablet by mouth two times a day. Taking Yes SUMAtriptan (IMITREX) 50 mg tablet Take 1 tablet (50 mg) by mouth as needed for migraine headache (see administration instructions). Taking Yes levothyroxine (SYNTHROID) 200 mcg tablet Take 1 tablet by mouth once daily. Thursday through Thursday, 1/2 tab on Thursday Taking Yes valsartan (DIOVAN) 160 mg tablet Take 1 tablet by mouth once daily. Taking Yes SITagliptin-metFORMIN (JANUMET) 50-1,000 mg per tablet Take 1 tablet by mouth two times a day with meals. Taking Yes carvedilol (COREG) 25 mg tablet Take 0.5 tablets by mouth two times a day. Taking Yes pantoprazole DR (PROTONIX) 40 mg tablet Take 1 tablet by mouth two times a day. Take on empty stomach, 1/2 hr before meal. Taking Yes albuterol HFA (PROVENTIL HFA, VENTOLIN HFA) 90 mcg/actuation inhaler Inhale 2 Puffs as instructed every 6 hours as needed. Taking Yes budesonide-formoterol (SYMBICORT) 160-4.5 mcg/actuation inhaler Inhale 2 Puffs as instructed two times a day. Taking Yes atorvastatin (LIPITOR) 20 mg tablet Take 1 tablet by mouth once daily. For cholesterol. Taking Yes fluorometholone (FML LIQUID FILM) 0.1 % ophthalmic suspension INSTILL 1 DROP IN BOTH EYES 1-2 TIMES PER DAY Taking Yes ondansetron (ZOFRAN) 4 mg tablet Take 1 tablet by mouth every 8 hours as needed for nausea/vomiting (after surgery). For postop nausea as needed. blood sugar diagnostic (BLOOD GLUCOSE TEST) test strip Test blood sugar(s) 4 times daily. Dx: Type 2 DM - Controlled E11.9 Insulin: Yes Lancets lancets Test blood sugar(s) 4 times daily. Dx: Type 2 DM - Controlled E11.9 Insulin: Yes blood sugar diagnostic (BLOOD GLUCOSE TEST) test strip Test blood sugar(s) 4 times daily. Dx: Type 2 DM - Controlled E11.9 Insulin: Yes No medication comments found. ALLERGIES Allergen Reactions Latex Itching Prinivil [Lisinopri* Cough Zanaflex [Tizanidin* Shortness of Breath Objective PHYSICAL EXAM: General: alert and oriented, healthy appearance and obese. Pertinent negatives noted - not distressed and not confused. Skin: normal color, no rash or lesions. HEENT: Cardiovascular: regular rate and rhythm, normal S1 and S2, no rub, murmurs, or gallop. Respiratory: normal breath sounds, no wheezes or crackles. Abdomen: bowel sounds present and soft. Pertinent negatives noted - not tender. Extremities: Positive for edema (pitting edema noted around both ankles. per patient this is her basline.). Pertinent negatives noted - no cellulitis, no clubbing and no deformity. Neurological: Positive for abnormal gait (fall risk). Pertinent negatives noted - no confusion, no abnormal sensation and no speech abnormality. PAIN ASSESSMENT: VITALS: BP 152/80 Pulse 55 Temp (Src) 98.2 (Temporal) Resp 14 Ht 5' 5 (1.65m) Wt 216 lb (98.0kg) SpO2 95[RM AIR]% LMP 03/21/2005 BMI 35.94 kg/(m^2). Diagnostic tests reviewed for today's visit: Lab Value Units Date High Low HB 10.8 g/dL 01/26/2024 15.5 11.5 HCT 34.6 % 01/26/2024 46.0 36.0 WBC 6.01 k/uL 01/26/2024 11.00 3.70 PLT 237 k/uL 01/26/2024 400 150 NA 135 mmol/L 01/26/2024 144 136 K 4.5 mmol/L 01/26/2024 5.1 3.7 GLUC 92 mg/dL 01/26/2024 99 74 BUN 19 mg/dL 01/26/2024 21 7 CREAT 0.82 mg/dL 01/26/2024 0.96 0.58 PTSEC No results within date range. INR No results within date range. APTT No results within date range. ALT No results within date range. AST No results within date range. TBILI No results within date range. TSH No results within date range. Lab Value Units Date High Low HCGQT No results within date range. UHCG No results within date range. HCG, BODY* No results within date range. Lab Value Units Date High Low ABORHD No results within date range. ABSCREEN No results within date range. Hemoglobin A1C (%) Date Value 09/08/2023 5.8 05/23/2022 5.8 12/18/2021 6.0 07/12/2021 6.1 10/01/2020 6.3 04/12/2020 6.1 07/13/2019 6.3 11/03/2018 6.1 02/01/2018 7.0 No results found for this or any previous visit (from the past 8760 hour(s)). Recent Results (from the past 16815 hour(s)) ECHO Collection Time: 07/12/21 8:51 AM Impression CONCLUSIONS: - Exam indication: Cardiac murmur - The left ventricle is normal in size. Left ventricular systolic function is normal. EF = 62 5% (2D biplane) Indeterminate left ventricular diastolic dysfunction. - The right ventricle is normal in size. Right ventricular systolic function is normal. - The left atrial cavity is mildly dilated. - There are no significant valvular abnormalities. - Exam was compared with the prior echocardiographic exam performed on 06/22/2017, no significant change. * * * Final * * * ARISCAT risk index interpretation 0 to 25 points: Low risk: 1.6% pulmonary complication rate 26 to 44 points: Intermediate risk: 13.3% pulmonary complication rate 45 to 123 points: High risk: 42.1% pulmonary complication rate Implantable Devices: None The Following Tests/Procedures Have Been Initiated: NO LABS ORDERED BY SURGEON FOR PAT. ORDERED TODAY EKG, CBC, BMP Assessment/Plan Uterine prolapse [N81.4] Midline cystocele [N81.11] Rectocele [N81.6] PLAN Planned Procedure: Procedure(s): HYSTERECTOMY VAGINAL UTERUS 250G OR LESS REMOVAL TUBE(S) AND/OR OVARY(S) (N/A) CYSTOSCOPY (N/A) COMBINED ANTERIOPOSTERIOR COLPORRHAPHY W/ENTEROCELE REPAIR INCLUDING CYSTOURETHROSCOPY WHEN PERFORMED (Bilateral) VAGINECTOMY PARTIAL (Bilateral) I spent a total of 50 minutes on the date of the service which included preparing to see the patient, [id number] patient care, completing clinical documentation, obtaining and/or reviewing separately obtained history, performing a medically appropriate examination, counseling and educating the patient/family/caregiver, and ordering medications, tests, or procedures. Instructions Given to Patient: Instructions located in the after visit summary. Patient given verbal and written preop instructions and voices comprehension and compliance. SIGNATURE: Edna Qureshi APRN.CNP PATIENT NAME: Jesus Zepeda DATE: January 26, 2024 TIME: 9:53 AM PAGER/CONTACT #: documented in this encounter [facility] 01-18-2024 Instructions Mónica Calixto RN - 01/18/2024 11:43 AM EDT PATIENT INSTRUCTIONS PRIOR TO SURGERY Please read these instructions carefully. Your surgery may be cancelled if you do not follow these instructions. PATIENTS WITHOUT DELAYED STOMACH EMPTYING: You can eat a regular diet on the day before your surgery up until midnight. Light, low-fat meals that are rich in carbohydrates are preferred, as these improve your healing after surgery. Do not to have any solid food to eat after midnight prior to surgery (this includes no gum, mints, smoking). You may drink small amounts (up to 12 oz) of clear liquids up until 2 hours prior to your arrival time. Clear liquids include water, fruit juices without pulp, carbonated beverages (i.e. katie karla), clear tea and black coffee, clear broth, popsicles and jello (no milk). We recommend that you drink carbohydrate-rich beverages such as Gatorade, Boost Breeze and Clearfast . It is safe to drink these if you have type 2 diabetes mellitus. No alcohol the day before or day of surgery. Please start Miralax (polyethylene glycol) 17 g (1 measured capful or 1 packet dissolved in any clear liquid) once daily in the evening, beginning four days before your surgery. PATIENTS WITH DELAYED STOMACH EMPTYING: I have been instructed not to have anything to eat or drink after midnight prior to my surgery (this includes no gum, mints, smoking). No alcohol the day before or day of surgery. Please start Miralax (polyethylene glycol) 17 g (1 measured capful or 1 packet dissolved in any clear liquid) once daily in the evening, beginning four days before your surgery. MEDICATIONS: Unless your surgeon tells you differently, STOP THESE MEDICATIONS SEVEN DAYS PRIOR TO SURGERY: ibuprofen (Motrin /Naproxen/Aleve/Advil) aspirin vitamin E herbal medications and supplements diet pills [id number] medications Taking acetaminophen (Tylenol) is okay. If you are taking any of the following blood thinning medications, discuss these with your surgeon and your jumpbasting collar baster or primary care physician: Aspirin Clopidogrel (Plavix) Eliquis (Apixaban) Ticagrelor (Brilinta) Prasugrel (Efficient) Ticlodipine (Ticlid) Warfarin (Coumadin) Dibigatran (Pradaxa) Rivaroxaban (Xarelto) If you stop a blood-thinning medication, ask your surgeon when to resume taking it. If you are on oral hormone replacement (estrogen or progesterone), ask your surgeon if you need to stop this medication prior to surgery. Patients with diabetes Do not take morning diabetes medication (pills) on the morning of surgery If you are on insulin, ask your doctor about how to take your insulin on the morning of surgery. If your surgery is delayed, notify the nurse or check-in desk that you have diabetes. If you use inhalers for breathing, use them as needed prior to surgery and bring them to the hospital. For all other medications, you will receive individualized instructions on which medication(s) you should take on the morning of surgery. Oral medications should be taken a couple sips of water. Your doctor may order you medications to take in the preoperative area of the hospital on the day of surgery. These medications are used to improve pain control after surgery, and include: Acetaminophen (Tylenol) Gabapentin (Neurontin) Celecoxib (Celebrex) GENERAL Do not wear jewelry, body piercing(s), makeup, nail nauruan, hairpins, or contacts on the day of surgery. Leave valuables and money at home or with family members. If you have Obstructive Sleep Apnea and use a CPAP/BiPAP machine, bring your mask, tubing, and machine with you on the day of surgery. If you are going home on the day of surgery, a responsible person must drive you home. It is suggested that someone stay with you for 24 hours. A business intelligence manager or cabdriver is NOT a responsible caregiver. INFECTION PREVENTION Please notify your doctor if you have any signs of an infection (i.e. fever, severe cough, nasal congestion, pain with urination, abnormal vaginal discharge, etc). No shaving (abdominal or pubic hair) or douching the day before surgery. Hand washing is extremely important in preventing infection (for both you as the patient and for the caregivers). If you received a pre-surgery Chlorhexidine Soap Wash: Use the night before or the morning of your surgery. 1. Shampoo your hair and take a shower using your usual soap and shampoo. Rinse the shampoo and soap from your hair and body. 2. Turn off the water. Pour the chlorhexidine liquid onto your hands and apply it to your body. -- Do not use a washcloth to apply the liquid to your body. The antiseptic in chlorhexidine sticks to washcloth fibers. Chlorhexidine may cause discoloration of towels and washcloths. 3. Wash your entire body from your neck down to your feet. Do not use the wash near your eyes or ears. Wash thoroughly, paying special attention to your abdomen and belly button. 4. Turn the water on and rinse your entire body. 5. Do not use regular soap, conditioner, oils, lotions, powders, deodorants, or sprays when you are done. This will decrease the effectiveness of the chlorhexidine. 6. When you are done, pat yourself dry with a clean, soft towel. 7. Put on clean clothes or sleepwear. HOSPITALIZATION Before you leave the hospital, you typically need to be able to eat/drink, urinate, and have your pain controlled with oral medication. Your surgeon or other members of your surgeon s team will discuss any other specific medical issues related to your discharge with you. Your surgeon may order intermittent compression sleeves. These are massaging leg pumps to help prevent blood clots after surgery. It is also very important that you walk as soon as possible and as frequently as possible after surgery. This will help decrease your risk of blood clots, exercise your lungs and speed up your recovery after surgery. If you are admitted to the hospital overnight, you will be given an incentive spirometer, which is a breathing machine that will help make sure that you are taking deep breaths and expanding your lungs while in the hospital. [facility] TEAM At the [facility], we have a multidisciplinary team of caregivers that includes fellows, residents, nurse practitioners (auto damage estimator), physician assistants (PAs), clinical nurse specialists (CNSs), nurses, medical assistants (MAs), patient care nursing assistants (PCNAs), social workers, casework manager and many others. We all have different roles and responsibilities but we all are here to help you. If you spend the night in the hospital, a physician from your care team will see you the day after your surgery. At times, scheduling does not permit your surgeon to see you in the hospital the day after surgery. If this occurs, another physician on the urogynecology care team will see you in the hospital. THE DAY BEFORE SURGERY If you are having surgery at [facility] [place]: On the day before your surgery, you must call [phone] to find out your surgery arrival time. If you are having surgery at a [facility] ([facility], [facility]): You will receive a call the day before surgery to give you your surgery arrival time. THE DAY OF SURGERY/CHECK IN Surgery Location Parking Check-in Location [address] [place] [address]/[place] [address] Report to DESK [facility] for surgery. A map is located in Your Surgical Guide Book. (unless otherwise instructed) [facility] [address] [address] [place], [place] Parking garage connected to hospital or shoddy mill worker Registration desk, first floor, main lobby [facility] [address] [place], [place] Parking lot in front of building [id number] (elevator to lower level) [facility] [address] [place], [place] Parking garage next to hospital or shoddy mill worker Atrium, W1 Surgical Waiting Desk [facility] [address] [facility]. [place], [place] Parking garage across from main entrance. Main entrance [facility] [address], [place] Park in the back of the hospital, go to Entrance A. Take elevators to 1st floor and enter into the Surgery Department UROGYNECOLOGY POSTOP INSTRUCTIONS ACTIVITY Your surgical recovery will be unique to you and how you heal. In the first few days after surgery, you will probably feel sluggish. As you recover, you will gradually return to normal activities. It is important to push yourself to return to normal activities as you feel fit. Listen to your body in terms of increasing your activity level as you recover. You may walk and climb stairs right after surgery. Walking and stair climbing will not hurt your surgical repair. You may resume activities like lifting/running/high impact aerobic activities/sit-up as soon as you feel strong enough. Please do not do any bike or horseback riding for 2 weeks if you have had a midurethral sling. Do not put anything in the vagina for 6 weeks after surgery unless otherwise instructed by your doctor (including tampons, douching, sexual intercourse, etc). No driving while you are taking narcotic pain medication, or until you feel that you are ready and can safely slam the brakes if needed. Avoid sitting or lying in bed for more than 2 hours at a time while you are awake to reduce your risk of blood clots. You may return to work when directed by your physician. Please contact your doctor if you need any return to work letters or medical leave paperwork to be completed. PAIN MANAGEMENT After you go home, you should take the prescribed acetaminophen (Tylenol) and ibuprofen (Motrin) as directed. These should be the first medications you use for pain. We recommend rotating the timing of these medications so that you are taking one of these medications every 3 to [address] this way, you can help prevent pain. After the first 72 hours, you can take these medications as needed. Applying ice packs to your incisions (abdominal or vulvar/perineal) for 20 minutes as often as needed may also help. Some pain medications can cause constipation so you should take a stool softener (i.e. Colace) or laxative (i.e. Miralax) while you are on these medications (see the following section on constipation). You may have been prescribed an opioid medication, also known as a narcotic pill. These opiate medications have side effects like nausea or vomiting, constipation, and sleepiness. You should only take them if your pain is not controlled by ibuprofen and/or acetaminophen. It is important to keep this stronger pain medication safely stored, as it is at great risk of being stolen or misused by family, friends, or even strangers. Please be sure to dispose of leftover pain medication after you have recovered. You may dispose of unused narcotic medications in the trash with an unpleasant substance such as coffee grounds or cat litter. You can also check FDA.gov to assess which medications can be safely flushed down the toilet. There are locations to dispose of unused medications at three [facility] locations: [facility] pharmacy, [facility] pharmacy, and the Pharmacy at the [facility] [place] [facility] (inside the parking garage on the first floor). CONSTIPATION You may not have a bowel movement for 3-5 days after surgery. This is normal. To help prevent constipation after your surgery, you may receive prescriptions to take including the following: Colace (docusate sodium) 100 mg (1 capsule) two times a day Miralax (polyethylene glycol) 17 g (1 measured capful or 1 packet) once a day. If you have not had a bowel movement 3 days after surgery, you may take the Miralax two times a day. If you have any discomfort because of the need to have a bowel movement, you may add milk of magnesia or magnesium citrate (available at your local pharmacy without a prescription) at any time. Do not take milk of magnesia or magnesium citrate if you have kidney failure. If you have loose or watery stools, stop taking the medications and call your doctor s office. OTHER MEDICATIONS If you were prescribed vaginal estrogen, you should resume it in 7-10 days after surgery unless you were instructed otherwise. Please check your discharge instructions about when to resume other medications. WOUND CARE Shower daily after surgery. No tub baths until wound is completely healed. If you have any abdominal incisions, wash them daily with a mild antibacterial soap and water. Pat your incision dry with a clean towel. Wash your hands frequently, especially before touching your incision, changing any dressings, after using the restroom, and before eating. HENSLEY CATHETER CARE You may go home with a Hensley catheter in your bladder. You will need to follow up for a nurse visit within 3-10 days for removal. You will be called by the office to get this appointment if it is not listed below. General Principles on Catheter Care: Always wash your hands with soap and water before handling your catheter tubing or bag. It is important to empty your catheter bag before it gets too full. Keep the catheter tubing free of kinks and Hensley bag below the level of your bladder. Keep your genital region and catheter tubing clean. Instructions on Catheter Plug Use: A catheter plug is used to occlude the end of the catheter so that it can be disconnected from the drainage bag during the day. You may be sent home with catheter plugs. Your postop nurse will give you instructions on how to use the plug before going home. The Hensley catheter must be disconnected from its drainage tubing and bag. The plug can then be inserted into the open end of the catheter. The plug should fit snugly. While the plug is in place, your bladder will fill with urine. You must empty your bladder by removing the plug and draining the catheter over the toilet at least every 3 to 4 hours, or sooner if you feel an urge to urinate. After you have drained the catheter, replace the plug. The catheter should be reconnected to the drainage bag at night so that your bladder can continuously drain while you are sleeping. The plug can be washed every night before bedtime with soap and water. Store it in a clean plastic Ziploc bag when it is not in use. You can continue daytime catheter plugging until your scheduled voiding trial. WHAT TO EXPECT AT HOME Recovery from surgery is generally 4 weeks, but sometimes longer for more strenuous activity. It is normal to be very tired during this time. It is normal to have some drainage or a small amount of vaginal bleeding after surgery which may last up to 6 weeks. It is normal to have some bruising around the vaginal opening or on the buttocks if you had a vaginal surgery or around your incisions if you had an abdominal or laparoscopic surgery. If you had a laparoscopic surgery, you may experience gas pain, abdominal swelling, or shoulder pain for 24-72 hours after surgery. A warm shower, heating pad, and/or walking may help. WHEN TO CALL YOUR DOCTOR: If you cannot urinate for 4 hours or are only able to urinate small amounts. Fever (>100.4 F or 38.0 C) or chills. Incision problems such as redness, warmth, swelling, or foul-smelling drainage. Severe nausea or persistent vomiting. Bright red vaginal bleeding (soaking >1 pad/hour) Foul smelling vaginal drainage (note that some vaginal discharge is normal) Severe pain not relieved with pain medication. Pain and swelling in your legs, especially if it is only on one side and not the other. Pain with urination, cloudy urine, or foul-smelling urine. Or if you have any other problems or questions. CALL 911 OR GO TO THE EMERGENCY ROOM IF YOU HAVE: shortness of breath, difficulty breathing, or chest pain. UROGYNECOLOGY PHYSICIAN CONTACT INFORMATION During business hours, these numbers connect to your doctor s office. During the evening and weekends, these numbers will connect you to the answering service to speak with the doctor consumer lending manager. Dr. Lei Dr. Rolon Dr. Adamson Dr. Whitaker Dr. Velasquez Dr. Mcgrath Dr. Lundy Dr. Cervantes Emma Zepeda, VEHICLE AND EQUIPMENT CLEANER Geri Owens, VEHICLE AND EQUIPMENT CLEANER Riccardo Rico, VEHICLE AND EQUIPMENT CLEANER Oziel Rolon, ROSEANN Obrien, VEHICLE AND EQUIPMENT CLEANER Ellen Lambert, VEHICLE AND EQUIPMENT CLEANER Please DO NOT use MyChart for post-surgery concerns. documented in this encounter [facility] 01-18-2024 History of Present illness Narrative DATE OF SERVICE: 01/18/2024 PROBLEM: Jesus Zepeda presents for pre-op teaching. PRE-OP DIAGNOSIS: Uterine Prolapse SCHEDULED SURGERY AND DATE: 02/02/24: HYSTERECTOMY VAGINAL UTERUS 250G OR LESS REMOVAL TUBE(S) AND/OR OVARY(S), COMBINED ANTERIOPOSTERIOR COLPORRHAPHY W/ENTEROCELE REPAIR INCLUDING CYSTOURETHROSCOPY WHEN PERFORMED, VAGINECTOMY PARTIAL, CYSTOSCOPY PRIMARY SURGEON: Florencia Lundy MD NURSING PREOP ASSESSMENT: Fevers, chills, cough, or nasal congestion: No Vaginal itching, burning, discharge, or odor: No Pain with urination, frequency, urgency, cloudy or foul smelling urine: No If yes to any of the above then MD notified: Not Applicable ADVANCED CARE PLANNING: Does the patient have an advanced directive: No Does [facility] have a copy of the patient's advanced directive: No Was advanced directive given to the patient: No PATIENT LEARNING ASSESSMENT: Individual patient/family learning needs evaluated and addressed: Yes Cognitive ability: Alert and oriented Motivation to learn: Eager Factors affecting learning: None Physical limitations affecting learning: None Patient learns best by: Individual Instruction Verbal Instruction Method of instruction: Individual instruction Instructions provided to: Patient via telephone. Written material provided prior to education appointment. Family support: None - Unavailable/disinterested PRE- AND POST-OPERATIVE TEACHING Pre-operative teaching and supplemental material provided and reviewed with patient: Written pre-op and post-op instructions Antibacterial soap: Patient will fruit picker. Pre-operative instructions provided and reviewed with patient/family: No eating, drinking, or smoking after midnight prior to surgery unless otherwise directed No alcohol the day before surgery Stop NSAIDs, Aspirin (ASA), vitamins, herbal supplements, herbal teas, and diet pills 7-10 days prior to surgery OK to take tylenol prn pain unless otherwise directed by physician Call surgery coordinators if any other questions about surgery date or pre-op appointments Bowel prep instructions: Miralax bowel prep per protocol Day of surgery instructions provided and reviewed with patient/family: Arrival time (call surgical coordinators on the office day prior to surgery for verification) No jewelry, body piercing, makeup, contacts, lotions, nail nauruan on fingers, or anything in hair on arrival to surgery Leave all valuables at home or with a family member Holding area Family waiting area Surgical recovery room Post-operative instructions provided and reviewed with patient/family: SEE PATIENT INSTRUCTION SECTION FOR DETAILS. ACTIVITY - No heavy lifting (>5-10 lbs), no pushing/pulling, OK to climb stairs INCISION CARE - Keep incision clean and dry, bryan to be removed 7-10 days after surgery, steristrips do not need to be removed by MD BATHING - OK to shower after surgery unless otherwise directed by MD, no tub baths. VAGINAL CARE - Pelvic rest x6 weeks unless otherwise directed by MD. DVT PROPHYLAXIS - Early ambulation, SCDs, injectable anticoagulants (heparin, lovenox, etc) SYMPTOMS TO NOTIFY MD - Fever, chills, nausea, vomiting, increased or severe pain, heavy vaginal bleeding, foul smelling vaginal drainage, pain or swelling in extremities. URGENT SYMPTOMS - Call 911 or go to ER if any shortness of breath, difficulty breathing, or chest pain. HOW TO CONTACT PHYSICIAN - Physician's office phone number given to patient, if after hours patient instructed to call hydropulper operator and ask for consumer lending manager estimation manager onc resident. TREY program offered to patient: Yes Additional teaching as indicated by patient/family learning needs. PATIENT LEARNING EVALUATION & FOLLOW UP PLAN: Patient and/or family express understanding of upcoming surgery, pre-operative preparation, the operative process, and post-operative instructions. Follow up plan: Complete - No need for follow-up Patient has a post-op appointment scheduled: Yes: 02/17/24 at 0830 with Oziel Rolon CNP Referral (recommentation): None Educator: Mónica Calixto RN [facility] documented in this encounter [facility] 01-13-2024 Telephone encounter Note Attempted to return pt call. Left msg to call office. After review - there is an order 12/29/23 for Urinalysis with Microscopic Pt had trace blood noted in back office Urine Dip before her UDS and Cystoscopy 12/29/23 Eboni Burt RN [facility] 01-13-2024 Miscellaneous Notes Attempted to return pt call. Left msg to call office. After review - there is an order 12/29/23 for Urinalysis with Microscopic Pt had trace blood noted in back office Urine Dip before her UDS and Cystoscopy 12/29/23 Eboni Burt, RN Patient went to lab thinking it was a blood draw, and it was for urine? She is confused, as was the staff at the lab. Patient would like a nurse call, please. documented in this encounter [facility] 01-13-2024 Telephone encounter Note Patient went to lab thinking it was a blood draw, and it was for urine? She is confused, as was the staff at the lab. Patient would like a nurse call, please. [facility] 12-31-2023 Telephone encounter Note Spoke with pt and confirmed 02/02/24 surgery date at [facility], scheduled pre/post op appts [facility] 12-31-2023 Miscellaneous Notes Spoke with pt and confirmed 02/02/24 surgery date at [facility], scheduled pre/post op appts documented in this encounter [facility] 12-29-2023 Florencia Mackay MD - 12/29/2023 9:56 AM EDT Images from the original note were not included. UROGYNECOLOGY POSTOP INSTRUCTIONS ACTIVITY Your surgical recovery will be unique to you and how you heal. In the first few days after surgery, you will probably feel sluggish. As you recover, you will gradually return to normal activities. It is important to push yourself to return to normal activities as you feel fit. Listen to your body in terms of increasing your activity level as you recover. You may walk and climb stairs right after surgery. Walking and stair climbing will not hurt your surgical repair. You may resume activities like lifting/running/high impact aerobic activities/sit-up as soon as you feel strong enough. Please do not do any bike or horseback riding for 2 weeks if you have had a midurethral sling. Do not put anything in the vagina for 6 weeks after surgery unless otherwise instructed by your doctor (including tampons, douching, sexual intercourse, etc). No driving while you are taking narcotic pain medication, or until you feel that you are ready and can safely slam the brakes if needed. Avoid sitting or lying in bed for more than 2 hours at a time while you are awake to reduce your risk of blood clots. You may return to work when directed by your physician. Please contact your doctor if you need any return to work letters or medical leave paperwork to be completed. PAIN MANAGEMENT After you go home, you should take the prescribed acetaminophen (Tylenol) and ibuprofen (Motrin) as directed. We recommend rotating the timing of these medications so that you are taking one of these medications every 3 to 4 hours. In this way, you can help prevent pain. After the first 72 hours, you can take these medications as needed. These should be the first medications you use for pain. Applying ice packs to your incisions (abdominal or vulvar/perineal) for 20 minutes as often as needed may also help. Some pain medications can cause constipation so you should take a stool softener (i.e. Colace) or laxative (i.e. Miralax) while you are on these medications (see the following section on constipation). You may have been prescribed an opioid medication, also known as a narcotic pill. This is usually oxycodone. You may be familiar with the medication Percocet, which is a combination of oxycodone and acetaminophen. These opiate medications have side effects like nausea or vomiting, constipation, and sleepiness. You should only take them if your pain is not controlled by ibuprofen and/or acetaminophen. It is important to keep this stronger pain medication safely stored, as it is at great risk of being stolen or misused by family, friends, or even strangers. Please be sure to dispose of leftover pain medication after you have recovered. You may dispose of unused narcotic medications in the trash with an unpleasant substance such as coffee grounds or cat litter. You can also check FDA.gov to assess which medications can be safely flushed down the toilet. There are locations to dispose of unused medications at three [facility] locations: [facility] pharmacy, [facility] pharmacy, and the Pharmacy at the [facility] for [facility] (inside the parking garage on the first floor). CONSTIPATION You may not have a bowel movement for 3-5 days after surgery. This is normal. To help prevent constipation after your surgery, you may receive prescriptions to take including the following: Colace (docusate sodium) 100 mg (1 capsule) two times a day Miralax (polyethylene glycol) 17 g (1 measured capful or 1 packet) once a day. If you have not had a bowel movement 3 days after surgery, you may take the Miralax two times a day. If you have any discomfort because of the need to have a bowel movement, you may add milk of magnesia or magnesium citrate (available at your local pharmacy without a prescription) at any time. Do not take milk of magnesia or magnesium citrate if you have kidney failure. If you have loose or watery stools, stop taking the medications and call your doctor s office. OTHER MEDICATIONS If you were prescribed vaginal estrogen, you should resume it in 7-10 days after surgery unless you were instructed otherwise. Please check your discharge instructions about when to resume other medications. WOUND CARE If you have bryan (abdominal incision), they need to be removed about 10-14 days after surgery. There will be dissolvable stitches under your skin that do not need to be removed. If you have band aids, steri strips, (paper tape) or a small gauze covered by tegarderm (clear tape) over your small abdominal incisions, these may be removed when you shower the day after surgery. Keep any incision clean, dry, and open to the air. Shower daily after surgery. No tub baths until wound is completely healed. If you have any abdominal incisions, wash them daily with a mild antibacterial soap and water. Pat your incision dry with a clean towel. Wash your hands frequently, especially before touching your incision, changing any dressings, after using the restroom, and before eating. HENSLEY CATHETER CARE You may go home with a Hensley catheter in your bladder. You will need to follow up for a nurse visit within 3-10 days for removal. You will be called by the office to get this appointment if it is not listed below. General Principles on Catheter Care: Always wash your hands with soap and water before handling your catheter tubing or bag. It is important to empty your catheter bag before it gets too full. Keep the catheter tubing free of kinks and Hensley bag below the level of your bladder. Keep your genital region and catheter tubing clean. Instructions on Catheter Plug Use: A catheter plug is used to occlude the end of the catheter so that it can be disconnected from the drainage bag during the day. You may be sent home with catheter plugs. Your postop nurse will give you instructions on how to use the plug before going home. The Hensley catheter must be disconnected from its drainage tubing and bag. The plug can then be inserted into the open end of the catheter. The plug should fit snugly. While the plug is in place, your bladder will fill with urine. You must empty your bladder by removing the plug and draining the catheter over the toilet at least every 3 to 4 hours, or sooner if you feel an urge to urinate. After you have drained the catheter, replace the plug. The catheter should be reconnected to the drainage bag at night so that your bladder can continuously drain while you are sleeping. The plug can be washed every night before bedtime with soap and water. Store it in a clean plastic Ziploc bag when it is not in use. You can continue daytime catheter plugging until your scheduled voiding trial. WHAT TO EXPECT AT HOME Recovery from surgery is generally 4 weeks, but sometimes longer for more strenuous activity. It is normal to be very tired during this time. It is normal to have some drainage or a small amount of vaginal bleeding after surgery which may last up to 6 weeks. It is normal to have some bruising around the vaginal opening or on the buttocks if you had a vaginal surgery or around your incisions if you had an abdominal or laparoscopic surgery. If you had a laparoscopic surgery, you may experience gas pain, abdominal swelling, or shoulder pain for 24-72 hours after surgery. A warm shower, heating pad, and/or walking may help. WHEN TO CALL YOUR DOCTOR: If you cannot urinate for 3-5 hours or are only able to urinate small amounts. Fever (>100.4 F or 38.0 C) or chills. Incision problems such as redness, warmth, swelling, or foul-smelling drainage. Severe nausea or persistent vomiting. Bright red vaginal bleeding (soaking >1 pad/hour) Foul smelling vaginal drainage (note that some vaginal discharge is normal) Severe pain not relieved with pain medication. Pain and swelling in your legs, especially if it is only on one side and not the other. Pain with urination, cloudy urine, or foul-smelling urine. Or if you have any other problems or questions. CALL 911 OR GO TO THE EMERGENCY ROOM IF YOU HAVE: shortness of breath, difficulty breathing, or chest pain. UROGYNECOLOGY PHYSICIAN CONTACT INFORMATION During business hours, these numbers connect to your doctor s office. During the evening and weekends, these numbers will connect you to the answering service to speak with the doctor consumer lending manager. Dr. Lei Dr. Rolon Dr. Adamson Dr. Whitaker Dr. Velasquez Dr. Mcgrath Dr. Lundy Dr. Cervantes Emma Zepeda, VEHICLE AND EQUIPMENT CLEANER Geri Owens, VEHICLE AND EQUIPMENT CLEANER Riccardo Rico, VEHICLE AND EQUIPMENT CLEANER Oziel Rolon, VEHICLE AND EQUIPMENT CLEANER Tanya Obrien, VEHICLE AND EQUIPMENT CLEANER Ellen Lambert, VEHICLE AND EQUIPMENT CLEANER Please DO NOT use MyChart for post-surgery concerns. documented in this encounter [facility] 12-29-2023 Procedure note Associated Ord er(s): URODYNAMICS WHI; COLPOSCOPY Procedure(s): CYSTOMETROGRAM; CYSTOSCOPY Pre-Procedure Diagnose(s): First degree uterine prolapse; OAB (overactive bladder) Post-Procedure Diagnose(s): First degree uterine prolapse; OAB (overactive bladder) URODYNAMICS ID Verified by: Patty Mukherjee RN Did you watch the urodynamics video and or read the handout sent to you via [employer]? Yes, PDF only If you did not watch the video or read the PDF, what are your reasons? Other URODYNAMIC PROCEDURE NOTE DAIRY CONSULTANT: neg B/O UA: Positive for Blood UROFLOWMETRY: pt did not drink enough and unable to void for test. Voided vol: n/a mL Flow time: n/a sec Q max: n/a mL/sec Q avg: n/a mL/sec PVR: 5 mL CYSTOMETROGRAM Subtracted:Yes Video: No EMG: Yes First desire: 182 mL Strong desire: 283 mL Max. capacity: 289 mL Maximum filling detrusor pressure 46 cm of water Instability associated with urge: Yes Instability associated with leakage: Yes Leaks urine with valsalva /coughs: No Lowest Leak point pressure: n/a cm of water at 289 mL Was patient assessed for VLPP: Yes Was UPP done: No PRESSURE-FLOW VOIDING STUDY Voided: 300 mL Max Voiding Detrusor Pressure (Peak Pressure) -2cm H2O P det Q max (Max Flow) (Pressure at peak): -9 cm H2O Maximum Flow Rate: 46 mL/sec Average Flow Rate: 8 mL/sec Vaginal Packing for prolapse support: 4 swabs placed in the vagina for test and removed at the end of the procedure, Comments: Patient tolerated procedure well. 4 swab used to reduce prolapse. Home going instructions provided. Study given to Dr. Lundy to review and discuss with patient. Please use Urodynamic Graph. ASSESSMENT: Filling and Storage: Bladder sensation is increased without bladder pain, with urgency and with detrusor overactivity incontinence. Bladder capacity is reduced. There is normal urethral closure and evidence of urodynamic stress incontinence. Voiding: Overall voiding function is normal. Urine flow is continuous with a smooth flow curve. Detrusor function during voiding is normal consistent with a normal postvoid residual. Electromyography: Provocative maneuvers produced appropriate changes in waveforms. The EMG shows increased EMG activity with increased intraabdominal pressure. There was a decrease in the EMG activity during voiding consistent with normal function of the pelvic floor. Cystoscopy Indication: urinary incontinence UNIVERSAL PROTOCOL / SAFETY CHECKLIST Procedure to be Performed: Cystoscopy Sign In: A Moment of CARE was completed. Personnel directly involved with the procedure wore the appropriate PPE (Personal Protective Equipment). Patient/Surrogate Stated/Verified: PATIENT VERIFIED(optional for EMERGENT procedures): Patient name, Date of , Relevant allergies, and The intended procedure Time Out Communication: Intended patient and procedure match the source documents. Consent documented and matches the intended procedure. Sign Out: SIGN OUT (optional for EMERGENT procedures): No specimen collected. Florencia Lundy MD Procedure: After obtaining proper consent, the patient was placed into the lithotomy position and prepped/draped in sterile fashion. Lidocaine jelly was inserted per urethra. Rigid cystoscopy was performed with the following findings: Urethra Mucosa: normal Bladder Neck: normal Bladder: no tumors, clots, stones, or foreign bodies and ureteral orifices in normal location and configuration The bladder mucosa was examined completely. Patient tolerated procedure well and was discharged in stable condition. Complications: None Specimens: None Estimated Blood Loss: minimal Assessment & Plan Asymptomatic microscopic hematuria We will determine next steps as needed once we have the results of her microscopic urinalysis. Orders: URINALYSIS, WITH MICROSCOPIC; Future URINALYSIS, WITH MICROSCOPIC Uterine prolapse We discussed the patient's options which include expectant management, pelvic floor physical therapy, pessary or surgery. We discussed the risk of colpocleisis include recurrent prolapse and injury to ureters and bladder. We discussed the patient's options which include expectant management, pelvic floor physical therapy, pessary or surgery. The risk associated with Anterior colporrhaphy is bladder perforation, postoperative voiding dysfunction, and ureteral obstruction. Also, there is a risk of recurrent anterior vaginal wall prolapse. Plan TVH, bilateral salpingectomy, colpocleisis, anterior and posterior colporrhaphy and cystoscopy. Orders: ondansetron (ZOFRAN) 4 mg tablet; Take 1 tablet by mouth every 8 hours as needed for nausea/vomiting (after surgery). For postop nausea as needed. SURGICAL REQUEST - ELECTIVE (11/2019) MORENO (stress urinary incontinence, female) No anti-incontinence procedure needed based on urodynamics. Florencia Lundy MD [facility] 12-29-2023 Procedure note Associated Ord er(s): URODYNAMICS WHI; COLPOSCOPY Procedure(s): CYSTOMETROGRAM; CYSTOSCOPY Pre-Procedure Diagnose(s): First degree uterine prolapse; OAB (overactive bladder) Post-Procedure Diagnose(s): First degree uterine prolapse; OAB (overactive bladder) URODYNAMICS ID Verified by: Patty Mukherjee RN Did you watch the urodynamics video and or read the handout sent to you via [employer]? Yes, PDF only If you did not watch the video or read the PDF, what are your reasons? Other URODYNAMIC PROCEDURE NOTE DAIRY CONSULTANT: neg B/O UA: Positive for Blood UROFLOWMETRY: pt did not drink enough and unable to void for test. Voided vol: n/a mL Flow time: n/a sec Q max: n/a mL/sec Q avg: n/a mL/sec PVR: 5 mL CYSTOMETROGRAM Subtracted:Yes Video: No EMG: Yes First desire: 182 mL Strong desire: 283 mL Max. capacity: 289 mL Maximum filling detrusor pressure 46 cm of water Instability associated with urge: Yes Instability associated with leakage: Yes Leaks urine with valsalva /coughs: No Lowest Leak point pressure: n/a cm of water at 289 mL Was patient assessed for VLPP: Yes Was UPP done: No PRESSURE-FLOW VOIDING STUDY Voided: 300 mL Max Voiding Detrusor Pressure (Peak Pressure) -2cm H2O P det Q max (Max Flow) (Pressure at peak): -9 cm H2O Maximum Flow Rate: 46 mL/sec Average Flow Rate: 8 mL/sec Vaginal Packing for prolapse support: 4 swabs placed in the vagina for test and removed at the end of the procedure, Comments: Patient tolerated procedure well. 4 swab used to reduce prolapse. Home going instructions provided. Study given to Dr. Lundy to review and discuss with patient. Please use Urodynamic Graph. ASSESSMENT: Filling and Storage: Bladder sensation is increased without bladder pain, with urgency and with detrusor overactivity incontinence. Bladder capacity is reduced. There is normal urethral closure and evidence of urodynamic stress incontinence. Voiding: Overall voiding function is normal. Urine flow is continuous with a smooth flow curve. Detrusor function during voiding is normal consistent with a normal postvoid residual. Electromyography: Provocative maneuvers produced appropriate changes in waveforms. The EMG shows increased EMG activity with increased intraabdominal pressure. There was a decrease in the EMG activity during voiding consistent with normal function of the pelvic floor. Cystoscopy Indication: urinary incontinence UNIVERSAL PROTOCOL / SAFETY CHECKLIST Procedure to be Performed: Cystoscopy Sign In: A Moment of CARE was completed. Personnel directly involved with the procedure wore the appropriate PPE (Personal Protective Equipment). Patient/Surrogate Stated/Verified: PATIENT VERIFIED(optional for EMERGENT procedures): Patient name, Date of , Relevant allergies, and The intended procedure Time Out Communication: Intended patient and procedure match the source documents. Consent documented and matches the intended procedure. Sign Out: SIGN OUT (optional for EMERGENT procedures): No specimen collected. Florencia Lundy MD Procedure: After obtaining proper consent, the patient was placed into the lithotomy position and prepped/draped in sterile fashion. Lidocaine jelly was inserted per urethra. Rigid cystoscopy was performed with the following findings: Urethra Mucosa: normal Bladder Neck: normal Bladder: no tumors, clots, stones, or foreign bodies and ureteral orifices in normal location and configuration The bladder mucosa was examined completely. Patient tolerated procedure well and was discharged in stable condition. Complications: None Specimens: None Estimated Blood Loss: minimal Assessment & Plan Asymptomatic microscopic hematuria We will determine next steps as needed once we have the results of her microscopic urinalysis. Orders: URINALYSIS, WITH MICROSCOPIC; Future URINALYSIS, WITH MICROSCOPIC Uterine prolapse We discussed the patient's options which include expectant management, pelvic floor physical therapy, pessary or surgery. We discussed the risk of colpocleisis include recurrent prolapse and injury to ureters and bladder. We discussed the patient's options which include expectant management, pelvic floor physical therapy, pessary or surgery. The risk associated with Anterior colporrhaphy is bladder perforation, postoperative voiding dysfunction, and ureteral obstruction. Also, there is a risk of recurrent anterior vaginal wall prolapse. Plan TVH, bilateral salpingectomy, colpocleisis, anterior and posterior colporrhaphy and cystoscopy. Orders: ondansetron (ZOFRAN) 4 mg tablet; Take 1 tablet by mouth every 8 hours as needed for nausea/vomiting (after surgery). For postop nausea as needed. SURGICAL REQUEST - ELECTIVE (11/2019) MORENO (stress urinary incontinence, female) No anti-incontinence procedure needed based on urodynamics. Florencia Lundy MD documented in this encounter [facility] 12-18-2023 Telephone encounter Note Patient phoned asking for address to her [employer] appt on 12-29-23. Given address. [facility] 12-18-2023 Miscellaneous Notes Patient phoned asking for address to her [employer] appt on 12-29-23. Given address. documented in this encounter [facility] 12-03-2023 Instructions Florencia Lundy MD - 12/03/2023 9:53 AM EDT Images from the original note were not included. URODYNAMICS What is Urodynamics? Urodynamics refers to a series of diagnostic tests that evaluate the function of the bladder and urethra. These tests may be recommended if you have urinary incontinence (leakage of urine), recurrent bladder infections, slow or weak urinary stream, incomplete bladder emptying or frequent urination. The tests provide important information to accurately diagnose and treat your bladder problems appropriately. What happens during Urodynamics? A catheter (soft, hollow tube) or special sensor will be carefully placed in your urethra and sometimes your rectum to perform the study. Your provider will decide which of the following tests need to be performed to help diagnose and treat your condition. Uroflowmetry: Measure the speed and amount of urine you void. You should come to the test feeling as though you need to urinate. Try not to empty your bladder one hour before your test. You will be asked to urinate into a commode with a funnel attached to a computer that measures your urine flow. Cystometrogram Study: Evaluates how your bladder holds urine, measures your bladder capacity and also determines how well you can control your bladder. Your bladder is filled with fluid using a catheter. In order to reproduce bladder symptoms, you should report any sensations you feel during the study. In addition, you may be asked to cough, bear down, stand or walk in place during the test. At the end of the study, you will be asked to urinate. Pressure Flow Study: This study determines if there is an obstruction. After your bladder is filled using a catheter, you will be asked to urinate as you normally would. The study simultaneously records the bladder pressure and the urine flow rate. Procedure Preparation: Please arrive with a comfortably full bladder. You may eat or drink anything prior to the study. Take your medication as normally scheduled, unless otherwise directed. The test typically takes about 45 minutes to an hour and a half to complete and is generally painless, so anesthesia is not necessary. You will be ablet o resume all previous activities, including driving, at the completion of the study. IF YOU FEEL YOU HAVE A URINARY TRACT INFECTION, PLEASE CALL OUR OFFICE AT LEAST 24 HOURS BEFORE YOUR APPOINTMENT SO AN ANTIBIOTIC CAN BE STARTED PRIOR TO YOUR TESTING. PELVIC ORGAN PROLAPSE Pelvic Support Problems Explained Ligaments, muscles, and connective tissue normally hold your bladder, uterus, or other organs in their proper places in your pelvis. When these tissues become weak, a problem with pelvic support may result. Weak support can cause one or more of the pelvic organs to drop down into the vagina, or into the vaginal wall. An organ may even drop so far that it is partially exposed outside of the body. Pelvic support problems are named by the change in the organ. The main types of pelvic support problems are: Cystocele: when your bladder drops into your vaginal wall Rectocele: when your rectum bulges into your vaginal wall Uterine prolapse: when your uterus drops into your vagina Vaginal prolapse: when the top part of your vagina begins to drop. This sometimes happens after a hysterectomy Enterocele: when your small intestine drops between your vagina and rectum Causes Pelvic floor support problems can be caused by many conditions. They may begin after you give , especially if you had a large baby. During childbirth, the muscles and skin of the canal (vagina) are stretches and sometimes torn. They heal over time but are not always exactly the same as they once were. A long pushing stage of labor may also weaken these tissues. Very rapid births may also cause problems because the tissues do not have time to stretch so they tear instead. Also, after menopause, there are changes in the vaginal mccormick resulting from a decrease in estrogen. Estrogen helps to keep the tissues toned. Low levels of estrogen weaken the vaginal mccormick and may cause the bladder to shift from its normal position. As women get older the loss of muscle tone and the relaxation of muscles may cause the uterus or other organs to drop. Over time conditions like chronic coughing, chronic constipation, doing a lot of heavy lifting, straining to pass stool, and obesity can also weaken pelvic muscles and pelvic support structures. Diagnosing Pelvic Support Problems Your healthcare provider will ask about your symptoms and do a pelvic examination. Your provider may also do a rectal exam. Your provider may ask you to: Bear down and push (like you are having a bowel movement) so she or he can see if your bladder or other pelvic organ protrudes into the vagina or vaginal wall. Contract the muscles of your pelvis to check the strength of your pelvic floor muscles. Do several types of urine, nerve, and muscle tests of the pelvis and around the bladder to see what type of treatment is best for you. Symptoms Symptoms of pelvic support problems depend on the organ involved, but may include: -Urine leakage -Stain or fecal loss after a bowel movement -Trouble having bowel movements -Ache in the lower abdomen, groin, or lower back -Bladder infection -A feeling of heaviness, pulling, or fullness in the pelvis, or a feeling that something is falling out of the vagina -An organ protruding from your vaginal opening -Feeling the need to support the organs or perineal area to empty bladder or bowels -Uncomfortable sexual intercourse -Many women feel pelvic pressure or trouble holding their urine immediately after childbirth. For some, these symptoms go away permanently. In others they return as women get older. Treatment Options A prolapsed organ cannot repair itself. Contact your health care provider as soon as you notice symptoms of a problem. Treatment Treatment depends on what the specific problem is and how far advanced it is.The symptoms caused by some pelvic support problems may simply be treated with changes in diet, medicine to soften stool, weight loss, or avoiding strenuous activities. You may also do pelvic floor exercises to help strengthen the pelvic floor muscles. Some cases of prolapse may require a special support device made from plastic or rubber called a pessary that fits into the vagina to support the uterus, vagina, or bladder. A pessary can also help women who leak urine when coughing, straining, or exercising. In mild cases, a tampon or vaginal diaphragm may be used instead of a pessary. Talk to your doctor or health care provider about these options. In serious cases surgery may be needed to put the organs back into their proper place. The uterus may be removed because of the pressure it puts on the bladder. Your doctor will know what surgery will be best for you. How can I prevent pelvic support problems? You can help prevent pelvic support problems by: -Maintaining a healthy lifestyle and healthy weight -Continuing to do pelvic floor exercises after you deliver a baby -Avoid a lot of heavy lifting, and lifting properly (lifting with your legs, not bending at your waist) -Treating constipation and avoid getting constipated by eating high fiber foods and drinking enough water -Treating chronic cough Colpocleisis What is a colpocleisis? A colpocleisis (vaginal closure) is a surgical treatment option for pelvic organ prolapse in which the length of the vaginal canal is shortened. It is performed through the vagina and does not require any abdominal incisions. The surgery and recovery are very quick. After this surgery, the vagina will be very short, so it is not a good treatment option for women who want to be sexually active with vaginal intercourse. How is the surgery performed? Your urogynecologist will perform a colpocleisis through the vagina. You will not have any incisions on your abdomen. This procedure is the least invasive surgical procedure for prolapse repair and can be done quickly under regional (spinal) or general anesthesia, making it an attractive option for women who have medical problems and are not good candidates for more extensive surgeries. In this procedure, the length of the vaginal canal is shortened by sewing the front and back mccormick of the vagina together and the size of the opening of the vagina (introitus) is reduced. This effectively reduces the vaginal prolapse and prevents further development of prolapse. However, because the vagina is permanently shortened after surgery, women can no longer have vaginal sexual intercourse. Colpocleisis can be performed on women who have undergone a previous hysterectomy or those who still have a uterus. How successful is the surgery? Colpocleisis is very effective and has success rates as high as 95 percent. There are many clinical research studies demonstrating that colpocleisis is safe and effective even in women who are older or have medical problems. Most women are highly satisfied after the procedure. Are there any complications? As mentioned previously, this surgery has been extensively studied, and thus the complications are very well known. Your urogynecologist will evaluate you and will modify certain things that might predispose you to a complication. Colpocleisis is the safest surgical procedure to treat prolapse with the least amount of complications. Although rare, if you experience a complication, your urogynecologist will address this immediately utilizing surgical or non-surgical techniques. Complications general to any type of surgery, including blood clot, infection, bleeding, or nerve or muscle injury, can be encountered with this surgery as well. Again, your urogynecologist will work with you, your primary care team, and our anesthesiology team to minimize your risk of these things happening. What is the recovery? Since your urogynecologist is able to perform this surgery utilizing a minimally invasive approach, you will most likely be able to go home the day of surgery. To help you accomplish this goal, we have worked with our anesthesiology team to develop an Enhanced Recovery After Surgery (ERAS) program. Your urogynecologist will determine if you are a candidate for this program at your pre-surgical visit. We also appreciate that you are undergoing surgery to restore your quality of life, and thus we would like to get you doing the things you want to do as quickly as possible postoperatively. You can return to your normal activities as soon as you feel ready including exercise and work. It is normal to feel tired and sore during the first two weeks after surgery, but we encourage you to be more and more physically active as your energy improves. After surgery, it is not unusual to have a yellowish discharge. This is from the dissolving of the stitches your urogynecologist uses to perform the surgery. These stitches are mostly gone by six to eight weeks. How should I prepare for surgery? You will meet with your surgeon as well as our nurse preoperatively to discuss specific instructions to follow before and after surgery. documented in this encounter [facility] 12-03-2023 History of Present illness Narrative Female Pelvic Medicine & Reconstructive Surgery Consult CHIEF COMPLAINT: Jesus Zepeda is a 57 year old female who presents for consultation requested by Stephanie Montoya PA-C for an opinion regarding Pelvic Organ Prolapse and urinary incontinence. My final recommendations will be communicated back to the requesting physician by way of shared Medical record or letter to requesting physician via [place] mail. HISTORY OF PRESENT ILLNESS: 57 year old female presents with symptoms of prolapse. She has not had a prior hysterectomy. Has urinary incontinence. She feels urinary incontinence pelvic pressure pelvic pain protrusion from the vagina feeling of heaviness or fullness. Sexually active: She is not sexually active because she does not have a partner.. She is not interested in a pessary, she would like to discuss surgical options at this time. The patient presents with symptoms of urge incontinence for 1-2 months. The patient has tried the following overactive bladder medications: None. The patient reports urinary urge incontinence nocturia. She has not tried pelvic floor physical therapy. She has not done Kegel exercises on her own. She does not drink caffeinated beverages. She does wear pads for this problem. She does not have multiple sclerosus. Medical and Symptom History: LMP: Patient's last menstrual period was 03/21/2005.; Menopause yes: ALLERGIES Allergen Reactions Latex Itching Prinivil [Lisinopri* Cough Zanaflex [Tizanidin* Shortness of Breath Current Outpatient Medications Medication Sig iron bisgly,ps-FA-B-C#12-succ 65 mg-65 mg -1,000 mcg (24) tab Take by mouth. sucralfate (CARAFATE) 1 gram tablet Take 1 tablet by mouth two times a day. SUMAtriptan (IMITREX) 50 mg tablet Take 1 tablet (50 mg) by mouth as needed for migraine headache (see administration instructions). levothyroxine (SYNTHROID) 200 mcg tablet Take 1 tablet by mouth once daily. Thursday through Thursday, 1/2 tab on Thursday valsartan (DIOVAN) 160 mg tablet Take 1 tablet by mouth once daily. SITagliptin-metFORMIN (JANUMET) 50-1,000 mg per tablet Take 1 tablet by mouth two times a day with meals. carvedilol (COREG) 25 mg tablet Take 0.5 tablets by mouth two times a day. pantoprazole DR (PROTONIX) 40 mg tablet Take 1 tablet by mouth two times a day. Take on empty stomach, 1/2 hr before meal. albuterol HFA (PROVENTIL HFA, VENTOLIN HFA) 90 mcg/actuation inhaler Inhale 2 Puffs as instructed every 6 hours as needed. budesonide-formoterol (SYMBICORT) 160-4.5 mcg/actuation inhaler Inhale 2 Puffs as instructed two times a day. atorvastatin (LIPITOR) 20 mg tablet Take 1 tablet by mouth once daily. For cholesterol. blood sugar diagnostic (BLOOD GLUCOSE TEST) test strip Test blood sugar(s) 4 times daily. Dx: Type 2 DM - Controlled E11.9 Insulin: Yes Lancets lancets Test blood sugar(s) 4 times daily. Dx: Type 2 DM - Controlled E11.9 Insulin: Yes fluorometholone (FML LIQUID FILM) 0.1 % ophthalmic suspension INSTILL 1 DROP IN BOTH EYES 1-2 TIMES PER DAY blood sugar diagnostic (BLOOD GLUCOSE TEST) test strip Test blood sugar(s) 4 times daily. Dx: Type 2 DM - Controlled E11.9 Insulin: Yes No current facility-administered medications for this visit. PAST SURGICAL HISTORY 11/2015: CARPAL TUNNEL; Right 11/15/2019: CHOLECYSTECTOMY Comment: Dr. Ferguson 03/07/2020: EGD Comment: Dr Ferguson 11/2015: THYROID BIOPSY 12/13/2018: THYROIDECTOMY TOTAL/COMPLETE; Left Comment: Dr Ferguson 01/15/2007: TOTAL THYROID LOBECTOMY UNI W/WO ISTHMUSECTOMY Comment: right 1988: TUBAL LIGATION 06/2015: XCAPSL CTRC RMVL INSJ IO LENS PROSTH W/O ECP; Right Comment: Cataract Extraction with PC IOL 07/2015: XCAPSL CTRC RMVL INSJ IO LENS PROSTH W/O ECP; Left Comment: Cataract Extraction with PC IOL PAST MEDICAL HISTORY 09/2020: Abnormal Pap smear of cervix Comment: 10/15 lgsil/+HPV 11/14 colp benign 08/18 ascus/+HPV 09/17 colp LGSIL No date: Adjustment disorder with depressed mood No date: Chronic hypoxemic respiratory failure (HCC) No date: Esophageal reflux No date: Essential hypertension, benign No date: Generalized anxiety disorder No date: GI bleed No date: HLD (hyperlipidemia) No date: Hx of blood transfusion reaction No date: Hypertension No date: Kidney stones No date: Menorrhagia No date: Migraine without aura No date: Morbid obesity (HCC) 06/2004: Nonspecific abnormal results of other endocrine function study Comment: Benign biopsy. Abnormally high thyroid globulin No date: HARMONY (obstructive sleep apnea) 09/2013: Pulmonary emboli (HCC) Comment: Bilateral on CTA chest. No date: Scleritis No date: Type II or unspecified type diabetes mellitus without mention of complication, not stated as uncontrolled FAMILY HISTORY Problem Relation Age of Onset Hypertension Mother Diabetes Mother Thyroid Mother thyroidectomy other (heart murmur) Mother Heart Attack Father Diabetes Brother Hypertension Brother No Known Problems Brother Pneumothorax Maternal Grandmother No Known Problems Daughter No Known Problems Son Breast Cancer Maternal Aunt Metastatic to bone other (Other) Other No DVT or PE. SOCIAL HISTORY Social History Tobacco Use Smoking status: Never Smokeless tobacco: Never Tobacco comments: FAther smoking in childhood home. Has lived with smoker in home, son quit about 2016. 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 Review of Systems Constitutional: Negative for chills, diaphoresis and fever. HENT: Negative for drooling, ear discharge, facial swelling, nosebleeds, sore throat and trouble swallowing. Eyes: Negative for discharge, redness, itching and visual disturbance. Respiratory: Negative for apnea, choking, chest tightness, shortness of breath, wheezing and stridor. Cardiovascular: Negative for chest pain and palpitations. Gastrointestinal: Negative for abdominal distention, abdominal pain, anal bleeding, blood in stool, nausea and vomiting. Endocrine: Negative for cold intolerance and heat intolerance. Genitourinary: Negative for genital sores, menstrual problem and vaginal bleeding. Musculoskeletal: Negative for gait problem, myalgias, neck pain and neck stiffness. Skin: Negative for pallor, rash and wound. Allergic/Immunologic: Negative for environmental allergies, food allergies and immunocompromised state. Neurological: Negative for dizziness, seizures, facial asymmetry, speech difficulty, light-headedness, numbness and headaches. Hematological: Negative for adenopathy. Does not bruise/bleed easily. Psychiatric/Behavioral: Negative for agitation, behavioral problems, confusion and hallucinations. OBJECTIVE: BP 130/70 Ht 165.1 cm (5' 5) Wt 97.1 kg (214 lb) LMP 03/21/2005 BMI 35.61 kg/m Physical Exam Exam conducted with a nurse supervisor present. Constitutional: Appearance: She is well-developed. HENT: Head: Normocephalic and atraumatic. Nose: Nose normal. Mouth/Throat: Mouth: Mucous membranes are moist. Pharynx: Oropharynx is clear. Eyes: Extraocular Movements: Extraocular movements intact. Conjunctiva/sclera: Conjunctivae normal. Pupils: Pupils are equal, round, and reactive to light. Cardiovascular: Rate and Rhythm: Normal rate. Pulmonary: Effort: Pulmonary effort is normal. Breath sounds: No wheezing, rhonchi or rales. Abdominal: General: Bowel sounds are normal. There is no distension. Palpations: Abdomen is soft. There is no mass. Tenderness: There is no abdominal tenderness. There is no guarding or rebound. Hernia: There is no hernia in the left inguinal area or right inguinal area. Genitourinary: General: Normal vulva. Exam position: Lithotomy position. Pubic Area: No rash. Labia: Right: No rash, tenderness, lesion or injury. Left: No rash, tenderness, lesion or injury. Urethra: No prolapse, urethral pain, urethral swelling or urethral lesion. Vagina: No vaginal discharge, erythema, tenderness, bleeding, lesions or prolapsed vaginal mccormick. Cervix: No cervical motion tenderness, friability or erythema. Uterus: Not enlarged, not tender and no uterine prolapse. Adnexa: Right: No mass, tenderness or fullness. Left: No mass, tenderness or fullness. Comments: Stage II uterovaginal prolapse Aa 0, anterior vaginal wall prolapse, some posterior vaginal wall prolapse Musculoskeletal: General: No swelling, tenderness, deformity or signs of injury. Normal range of motion. Cervical back: Normal range of motion and neck supple. Lymphadenopathy: Lower Body: No right inguinal adenopathy. No left inguinal adenopathy. Skin: General: Skin is warm and dry. Coloration: Skin is not jaundiced. Findings: No erythema or lesion. Neurological: Mental Status: She is alert and oriented to person, place, and time. Cranial Nerves: No cranial nerve deficit. Gait: Gait normal. Deep Tendon Reflexes: Reflexes are normal and symmetric. Psychiatric: Mood and Affect: Mood normal. Behavior: Behavior normal. Thought Content: Thought content normal. Judgment: Judgment normal. URINE POC GLUCOSE UA (POCT) Negative 08/13/2023 BILIRUBIN UA (POCT) Negative 08/13/2023 KETONE UA (POCT) Negative 08/13/2023 SPECIFIC GRAVITY UA (POCT) 1.025 08/13/2023 HEMOGLOBIN/BLOOD UA (POCT) Moderate 08/13/2023 PH UA (POCT) 5.5 08/13/2023 PROTEIN UA (POCT) Trace 08/13/2023 UROBILINOGEN UA (POCT) 0.2 08/13/2023 NITRITE UA (POCT) Negative 08/13/2023 LEUKOCYTES UA (POCT) Large 08/13/2023 COLOR UA (POCT) Yellow 08/13/2023 CLARITY UA (POCT) Cloudy 08/13/2023 We performed an in-and-out catheterization with a straight cathether to check a post-void residual to rule out voiding dysfunction given her symptoms. The postvoid residual was 40 mL. Assessment and Plan Problem List Items Addressed This Visit Gastrointestinal Uterine prolapse - Primary We discussed the patient's options which include expectant management, pelvic floor physical therapy, pessary or surgery. We will make a final plan once we have the results of her bladder testing. Patient interested in colpocleisis so we will get a pelvic ultrasound to check endometrial stripe. Relevant Orders US FEMALE PELVIS TRANSVAG Nephrology MORENO (stress urinary incontinence, female) Plan preoperative bladder testing (urodynamics and cystoscopy) to determine if she will need an anti-incontinence procedure at the time of her surgery (i.e. midurethral sling). Relevant Orders URODYNAMICS WHI Asymptomatic microscopic hematuria We will determine next steps as needed once we have the results of her microscopic urinalysis. Relevant Orders URINALYSIS, WITH MICROSCOPIC Florencia Lundy MD This note was created using [employer]. documented in this encounter [facility] 12-02-2023 Telephone encounter Note Patient calls and notified of results and providers instructions. Patient verbalizes understanding. Patient transferred to schedule with Gastroenterology. Lizet Cisneros RN [facility] 12-02-2023 Miscellaneous Notes Patient calls and notified of results and providers instructions. Patient verbalizes understanding. Patient transferred to schedule with Gastroenterology. Lizet Cisneros RN See below. Also let her know her mammogram was ok. Called and left a voicemail for the Patient to call back and ask for a nurse to receive the providers message. Mulu Soto RN Still anemic. Is she still taking iron? Let me know Needs to follow up with gi documented in this encounter [facility] 12-02-2023 Telephone encounter Note See below. Also let her know her mammogram was ok. [facility] 12-02-2023 Note Formatting of this n ote might be different from the original. December 02, 2023 PID: [id number] Jesus Zepeda [address] [place] [id number] Dear Ms. Zepeda, We are pleased to inform you that the results of your recent breast imaging exam on 12/02/2023 are normal. Breast tissue can be either dense or not dense. Dense tissue makes it harder to find breast cancer on a mammogram and also raises the risk of developing breast cancer. Your breast tissue is not dense. Talk to your healthcare provider about breast density, risks for breast cancer, and your individual situation. Early detection of cancer is very important. We also understand recommendations regarding breast cancer screening are controversial. Please discuss with your primary care provider which strategy is best for you and whether a mammogram is right for you. Your imaging studies and report will be kept on file at [facility] as part of your permanent medical record and are available for your continuing care. Thank you for allowing us to help in meeting your health care needs. Sincerely, Dr. Atkins Interpreting Radiologist [facility] (Normal over 40) [facility] 12-02-2023 Miscellaneous Notes December 02, 2023 PID: [id number] Jesus Zepeda [address] [place] [address] Dear Ms. Zepeda, We are pleased to inform you that the results of your recent breast imaging exam on 12/02/2023 are normal. Breast tissue can be either dense or not dense. Dense tissue makes it harder to find breast cancer on a mammogram and also raises the risk of developing breast cancer. Your breast tissue is not dense. Talk to your healthcare provider about breast density, risks for breast cancer, and your individual situation. Early detection of cancer is very important. We also understand recommendations regarding breast cancer screening are controversial. Please discuss with your primary care provider which strategy is best for you and whether a mammogram is right for you. Your imaging studies and report will be kept on file at [facility] as part of your permanent medical record and are available for your continuing care. Thank you for allowing us to help in meeting your health care needs. Sincerely, Dr. Atkins Interpreting Radiologist [facility] (Normal over 40) documented in this encounter [facility] 12-02-2023 Telephone encounter Note Called and left a voicemail for the Patient to call back and ask for a nurse to receive the providers message. Mulu Soto RN [facility] 12-02-2023 Telephone encounter Note Still anemic. Is she still taking iron? Let me know Needs to follow up with gi [facility] 12-02-2023 History of Present illness Narrative Radiology Service Progress Note PATIENT NAME: Jesus Zepeda DATE OF SERVICE: December 02, 2023 TIME: 10:10 AM PATIENT IDENTITY VERIFICATION COMPLETED USING TWO (2) IDENTIFIERS: Name and Date of confirmed by patient verbally. FALL SCREENING: Has the patient had 2 falls in the last year or 1 fall with injury or currently using an Ambulatory Assistive Device (Walker, Cane, Wheelchair, Crutches, etc.)? No PATIENT GENDER DATA: Female. status: : No status: NO. PATIENT RELEVANT IMPLANT DATA REVIEWED: Not Applicable PATIENT PRESENTS WITH AN IMPLANTABLE OR ATTACHED SCREW MACHINE OPERATOR: No RADIOLOGY DEPARTMENT: Mammography PERIPHERAL IV DATA: Not applicable SIGNED BY: Radha Bronson December 02, 2023 10:10 AM documented in this encounter [facility] 11-26-2023 Telephone encounter Note Patient calls upset that she is not able to fill acyclovir at pharmacy because order was cancelled. Looks like order was prescribed on 11/23/2023 and discontinued on 11/25/2023. Patient asking if order can be resent. Lizet Cisneros RN [facility] 11-26-2023 Miscellaneous Notes Patient calls upset that she is not able to fill acyclovir at pharmacy because order was cancelled. Looks like order was prescribed on 11/23/2023 and discontinued on 11/25/2023. Patient asking if order can be resent. Lizet Cisneros RN documented in this encounter [facility] 11-25-2023 History of Present illness Narrative Patient presents with: 6 Month Exam HPI: Patient presents today for office visit for follow up. Has cold sore she would like medication for. Has acyclover over two days ago. She will check with pharmacy. Had cystoscopy with R ureteral stent on 10/15/23 for kidney stone Currently on abx. Stent removed. No current symptoms. Follows with women's health for uterovaginal prolapse. Having pain. Mainly when walking up and down steps. Scheduled with Dr. Lundy on 12/03/23 for consult for possible hysterectomy, bladder sling. Some stress incontinence. Complains today of lower abdominal discomfort. DM: Testing sugars about 3-4 x a day. Suggested she really only needs to check once a day or prn. Would like a continuous glucose monitor She is not using insulin. Advised her it is unlikely to be covered but she would like it checked. Watching diet Exercising No vision changes No unexpected weight loss No open wounds on feet No numbness or pain in feet Last A1c was good. HTN: Denies chest pain and shortness of breath Denies headaches and dizziness Denies palpitations and syncope Does have edema to B/L lower extremities Has not followed with gi, pulmonary or cardiology. Not using oxygen any longer. Advise importance of both cardiology or pulmonary. No gi isuses. No black or bloody stools. No changes in hair or skin. Sees Dr Encarnacion for her diabetic foot care. Saw him recently. Given her edema and neuropathy she would benefit from diabetic shoes. Anemia has been finally coming back up. MEDICATIONS: Current Outpatient Medications Medication Sig iron bisadeel,ps-FA-B-C#12-succ 65 mg-65 mg -1,000 mcg (24) tab Take by mouth. cephALEXin (KEFLEX) 500 mg capsule Take 500 mg by mouth three times a day. sucralfate (CARAFATE) 1 gram tablet Take 1 tablet by mouth two times a day. SUMAtriptan (IMITREX) 50 mg tablet Take 1 tablet (50 mg) by mouth as needed for migraine headache (see administration instructions). levothyroxine (SYNTHROID) 200 mcg tablet Take 1 tablet by mouth once daily. Thursday through Thursday, 1/2 tab on Thursday valsartan (DIOVAN) 160 mg tablet Take 1 tablet by mouth once daily. SITagliptin-metFORMIN (JANUMET) 50-1,000 mg per tablet Take 1 tablet by mouth two times a day with meals. carvedilol (COREG) 25 mg tablet Take 0.5 tablets by mouth two times a day. pantoprazole DR (PROTONIX) 40 mg tablet Take 1 tablet by mouth two times a day. Take on empty stomach, 1/2 hr before meal. albuterol HFA (PROVENTIL HFA, VENTOLIN HFA) 90 mcg/actuation inhaler Inhale 2 Puffs as instructed every 6 hours as needed. budesonide-formoterol (SYMBICORT) 160-4.5 mcg/actuation inhaler Inhale 2 Puffs as instructed two times a day. atorvastatin (LIPITOR) 20 mg tablet Take 1 tablet by mouth once daily. For cholesterol. blood sugar diagnostic (BLOOD GLUCOSE TEST) test strip Test blood sugar(s) 4 times daily. Dx: Type 2 DM - Controlled E11.9 Insulin: Yes Lancets lancets Test blood sugar(s) 4 times daily. Dx: Type 2 DM - Controlled E11.9 Insulin: Yes fluorometholone (FML LIQUID FILM) 0.1 % ophthalmic suspension INSTILL 1 DROP IN BOTH EYES 1-2 TIMES PER DAY blood sugar diagnostic (BLOOD GLUCOSE TEST) test strip Test blood sugar(s) 4 times daily. Dx: Type 2 DM - Controlled E11.9 Insulin: Yes flash glucose scanning reader ([employer] SHIVAM 10 DAY READER) 1 Each once every month. No current facility-administered medications for this visit. ALLERGIES: ALLERGIES Allergen Reactions Latex Itching Prinivil [Lisinopri* Cough Zanaflex [Tizanidin* Shortness of Breath PAST MEDICAL HISTORY 09/2020: Abnormal Pap smear of cervix Comment: 10/15 lgsil/+HPV 11/14 colp benign 08/18 ascus/+HPV 09/17 colp LGSIL No date: Adjustment disorder with depressed mood No date: Chronic hypoxemic respiratory failure (HCC) No date: Esophageal reflux No date: Essential hypertension, benign No date: Generalized anxiety disorder No date: GI bleed No date: HLD (hyperlipidemia) No date: Hx of blood transfusion reaction No date: Hypertension No date: Kidney stones No date: Menorrhagia No date: Migraine without aura No date: Morbid obesity (HCC) 06/2004: Nonspecific abnormal results of other endocrine function study Comment: Benign biopsy. Abnormally high thyroid globulin No date: HARMONY (obstructive sleep apnea) 09/2013: Pulmonary emboli (HCC) Comment: Bilateral on CTA chest. No date: Scleritis No date: Type II or unspecified type diabetes mellitus without mention of complication, not stated as uncontrolled PAST SURGICAL HISTORY 11/2015: CARPAL TUNNEL; Right 11/15/2019: CHOLECYSTECTOMY Comment: Dr. Ferguson 03/07/2020: EGD Comment: Dr Ferguson 11/2015: THYROID BIOPSY US 12/13/2018: THYROIDECTOMY TOTAL/COMPLETE; Left Comment: Dr Ferguson 01/15/2007: TOTAL THYROID LOBECTOMY UNI W/WO ISTHMUSECTOMY Comment: right 1988: TUBAL LIGATION 06/2015: XCAPSL CTRC RMVL INSJ IO LENS PROSTH W/O ECP; Right Comment: Cataract Extraction with PC IOL 07/2015: XCAPSL CTRC RMVL INSJ IO LENS PROSTH W/O ECP; Left Comment: Cataract Extraction with PC IOL FAMILY HISTORY Problem Relation Age of Onset Hypertension Mother Diabetes Mother Thyroid Mother thyroidectomy other (heart murmur) Mother Heart Attack Father Diabetes Brother Hypertension Brother No Known Problems Brother Pneumothorax Maternal Grandmother No Known Problems Daughter No Known Problems Son Breast Cancer Maternal Aunt Metastatic to bone other (Other) Other No DVT or PE. Social History Tobacco Use Smoking status: Never Smokeless tobacco: Never Tobacco comments: FAther smoking in childhood home. Has lived with smoker in home, son quit about 2015. Vaping Use Vaping Use: Never used Substance Use Topics Alcohol use: Not Currently Drug use: Never Reviewed current medications, allergies, past medical history, surgical history, family history and social history today. REVIEW OF SYSTEMS All other reviewed and negative other than HPI. HEALTH MAINTENANCE: Reviewed health maintenance issues today and recommended the following in detail. Anxiety Screening Never done HIV Screening Never done BP Controlled (<130/80) Never done Hepatitis B Vaccine(1 of 3 - 19+ 3-dose series) Never done Covid-19 Vaccine(2022- season) due on 12/26/2022 Diabetic Foot Exam -as above. Mammogram Screening due on 10/16/2023 VITALS: BP 134/84 Pulse 76 Ht 153.7 cm (5' 0.5) Wt 97.1 kg (214 lb) LMP 03/21/2005 BMI 41.11 kg/m Last 4 Encounter Wt Readings: Date: Wt: 11/25/2023 97.1 kg (214 lb) 11/23/2023 95.3 kg (210 lb) 09/11/2023 96.2 kg (212 lb) 08/13/2023 96.2 kg (212 lb) PHYSICAL EXAMINATION: General appearance: Well appearing, alert, in no acute distress, well-hydrated, well nourished. Skin: Skin color, texture, turgor normal, no suspicious rashes or lesions Head: Normocephalic, no masses, lesions, tenderness or abnormalities Lungs: Lungs clear to auscultation. No wheezing, rhonchi, rales Heart: RRR, III/ murmur Abdomen: Normal abdominal exam, Abdomen soft, non-tender. Bowel sounds normal. No masses, organomegaly Extremities: chronic lymphedema. ASSESSMENT/PLAN: 1. Type 2 diabetes mellitus with diabetic neuropathy, with long-term current use of insulin (HCC) - ICD9: 250.60, 357.2, V58.67, ICD10: E11.40, Z79.4 (primary diagnosis) - sugars are good. Continue meds. 2. Neuropathy - ICD9: 355.9, ICD10: G62.9 - follow with podiatry, would benefit from diabetic shoes. 3. Essential hypertension, benign - ICD9: 401.1, ICD10: I10 - Controlled - Continue current medications 4. Other hyperlipidemia - ICD9: 272.4, ICD10: E78.49 Stable. 5. Chronic diastolic congestive heart failure (HCC) - ICD9: 428.32, 428.0, ICD10: I50.32 - over for follow up with cardiology If going to have surgery, will need cardiac clearance - CONSULT TO CARDIOLOGY 6. Aortic valve insufficiency, etiology of cardiac valve disease unspecified - ICD9: 424.1, ICD10: I35.1 -as above. 7. Obstructive lung disease (generalized) (HCC) - ICD9: 496, ICD10: J44.9 - overdue for follow up with pulmonary. Will need clearance if surgery is needed. - CONSULT TO PULM/CRITICAL CARE 8. Chronic hypoxemic respiratory failure (HCC) - ICD9: 518.83, 799.02, ICD10: J96.11 - stopped oxygen on her own. See pulmonary. - CONSULT TO PULM/CRITICAL CARE 9. Chronic obstructive pulmonary disease, unspecified COPD type (HCC) - ICD9: 496, ICD10: J44.9 - CONSULT TO CARDIOLOGY 10. CANCER M->Z THYROID - ICD9: 193, ICD10: C73 - no follow up needed per surgery. Recheck labs. - THYROID STIMULATING HORMONE 11. Gastroesophageal reflux disease without esophagitis - ICD9: 530.81, ICD10: K21.9 - Continue current medications. Notify us if any difficulties are noted. 12. Anemia, unspecified type - ICD9: 285.9, ICD10: D64.9 - recheck anemia. They were considering small bowel follow through if anemia persisted with hx of gi bleeding. Has not been following with gi. - COMPLETE BLOOD COUNT AND DIFFERENTIAL - VITAMIN B12 - IRON AND TIBC 13. Moderate episode of recurrent major depressive disorder (HCC) - ICD9: 296.32, ICD10: F33.1 - stable. 14. Lymphedema - ICD9: 457.1, ICD10: I89.0 - has seen lymphedema cliic. 15. Morbid obesity with BMI of 40.0-44.9, adult (HCC) - ICD9: 278.01, V85.41, ICD10: E66.01, Z68.41 - work on diet. 16. Ureteral stone - ICD9: 592.1, ICD10: N20.1 - per urogyn 17. Encounter for screening examination for other mental health and behavioral disorders - ICD9: V79.8, ICD10: Z13.39 - ANXIETY SCREENING 18. Obesity hypoventilation syndrome (HCC) - ICD9: 278.03, ICD10: E66.2 As above. Stopped oxygen on own. - CONSULT TO PULM/CRITICAL CARE 19. History of pulmonary embolism - ICD9: V12.55, ICD10: Z86.711 - completed tx in the past. Barak Tiwari MD documented in this encounter [facility] 11-23-2023 Telephone encounter Note Patient calling asking for a rx for cold sores to be sent to [facility] pharmacy. She said she has one cold sore on her lip for past few days, never had one before. She has her regular appt with PCP scheduled for 11/25/2023, she did not want to make another appt. Please advise [facility] 11-23-2023 Miscellaneous Notes Patient calling asking for a rx for cold sores to be sent to [facility] pharmacy. She said she has one cold sore on her lip for past few days, never had one before. She has her regular appt with PCP scheduled for 11/25/2023, she did not want to make another appt. Please advise documented in this encounter [facility] 11-23-2023 History of Present illness Narrative SUBJECTIVE Jesus Zepeda is a 57-year-old new patient who presents for a consult. Last pap- 08/13/23 ascus/+HPV. Colposcopy 09/11/23 LGSIL. Last mammo- 10/15/22. Last dexascan-02/13/14. Patient's last menstrual period was 03/21/2005. Patient is postmenopausal. She feels like her uterus is falling out, getting worse every day. First noticed about a year ago. Pt c/o urinary incontinence and she has seen blood when wiping and in the toilet. Denies dysuria. She has seen Dr. Roman and EDINSON Valentine and was recommended to try a pessary, and there was some confusion about plans for surgery. She desires surgical treatment now. She has occasional vaginal discharge and itching. She's been off and on antibitoics for kidney stones. Completed depression screening. HISTORIES FAMILY HISTORY Problem Relation Age of Onset Hypertension Mother Diabetes Mother Thyroid Mother thyroidectomy other (heart murmur) Mother Heart Attack Father Diabetes Brother Hypertension Brother No Known Problems Brother Pneumothorax Maternal Grandmother No Known Problems Daughter No Known Problems Son Breast Cancer Maternal Aunt Metastatic to bone other (Other) Other No DVT or PE. PAST MEDICAL HISTORY Diagnosis Date Abnormal Pap smear of cervix 09/2020 lgsil/+HPV 11/14 colp benign 08/18 ascus/+HPV 09/17 colp LGSIL Adjustment disorder with depressed mood Chronic hypoxemic respiratory failure (HCC) Esophageal reflux Essential hypertension, benign Generalized anxiety disorder GI bleed HLD (hyperlipidemia) Hx of blood transfusion reaction Hypertension Kidney stones Menorrhagia Migraine without aura Morbid obesity (HCC) Nonspecific abnormal results of other endocrine function study 06/2004 Benign biopsy. Abnormally high thyroid globulin HARMONY (obstructive sleep apnea) Pulmonary emboli (HCC) 09/2013 Bilateral on CTA chest. Scleritis Type II or unspecified type diabetes mellitus without mention of complication, not stated as uncontrolled PAST SURGICAL HISTORY Procedure Laterality Date CARPAL TUNNEL Right 11/2015 CHOLECYSTECTOMY 11/15/2019 Dr. Ferguson EGD 03/07/2020 Dr Ferguson THYROID BIOPSY US 11/2015 THYROIDECTOMY TOTAL/COMPLETE Left 12/13/2018 Dr Ferguson TOTAL THYROID LOBECTOMY UNI W/WO ISTHMUSECTOMY 01/15/2007 right TUBAL LIGATION 1988 XCAPSL CTRC RMVL INSJ IO LENS PROSTH W/O ECP Right 06/2015 Cataract Extraction with PC IOL XCAPSL CTRC RMVL INSJ IO LENS PROSTH W/O ECP Left 07/2015 Cataract Extraction with PC IOL Social History Tobacco Use Smoking status: Never Smokeless tobacco: Never Tobacco comments: FAther smoking in childhood home. Has lived with smoker in home, son quit about 2015. Vaping Use Vaping Use: Never used Substance Use Topics Alcohol use: Not Currently Drug use: Never ACTIVE PROBLEM LIST CANCER M->Z THYROID Type 2 Diabetes Mellitus With Diabetic Neuropathy, With Long-Term Current Use of Insulin (Hcc) Menorrhagia Essential Hypertension, Benign Gastroesophageal Reflux Disease Without Esophagitis Hld (Hyperlipidemia) Multinodular Goiter (Nontoxic) Lymphedema Echocardiogram Abnormal Chronic Pulmonary Embolism Without Acute Cor Pulmonale (Hcc) Moderate Episode of Recurrent Major Depressive Disorder (Hcc) Morbid Obesity With Bmi of 40.0-44.9, Adult (Hcc) Anemia Neuropathy Chronic Diastolic Congestive Heart Failure (Hcc) Obstructive Lung Disease (Generalized) (Hcc) Chronic Hypoxemic Respiratory Failure (Hcc) Cervical Mass Ascus With Positive High Risk Hpv Cervical Aortic Valve Regurgitation Chronic Obstructive Pulmonary Disease (Hcc) Congestive Heart Failure (Hcc) Pulmonary Hypertension (Hcc) Dyspnea On Exertion ALLERGIES Allergen Reactions Latex Itching Prinivil [Lisinopri* Cough Zanaflex [Tizanidin* Shortness of Breath Current Outpatient Medications Medication Sig iron bisgly,ps-FA-B-C#12-succ 65 mg-65 mg -1,000 mcg (24) tab Take by mouth. cephALEXin (KEFLEX) 500 mg capsule Take 500 mg by mouth three times a day. sucralfate (CARAFATE) 1 gram tablet Take 1 tablet by mouth two times a day. SUMAtriptan (IMITREX) 50 mg tablet Take 1 tablet (50 mg) by mouth as needed for migraine headache (see administration instructions). levothyroxine (SYNTHROID) 200 mcg tablet Take 1 tablet by mouth once daily. Thursday through Thursday, 1/2 tab on Thursday valsartan (DIOVAN) 160 mg tablet Take 1 tablet by mouth once daily. SITagliptin-metFORMIN (JANUMET) 50-1,000 mg per tablet Take 1 tablet by mouth two times a day with meals. carvedilol (COREG) 25 mg tablet Take 0.5 tablets by mouth two times a day. pantoprazole DR (PROTONIX) 40 mg tablet Take 1 tablet by mouth two times a day. Take on empty stomach, 1/2 hr before meal. albuterol HFA (PROVENTIL HFA, VENTOLIN HFA) 90 mcg/actuation inhaler Inhale 2 Puffs as instructed every 6 hours as needed. budesonide-formoterol (SYMBICORT) 160-4.5 mcg/actuation inhaler Inhale 2 Puffs as instructed two times a day. atorvastatin (LIPITOR) 20 mg tablet Take 1 tablet by mouth once daily. For cholesterol. fluorometholone (FML LIQUID FILM) 0.1 % ophthalmic suspension INSTILL 1 DROP IN BOTH EYES 1-2 TIMES PER DAY alcohol swabs (BD SINGLE USE SWABS REGULAR) For use with insulin injections 4 times daily (Patient not taking: Reported on 11/23/2023) blood sugar diagnostic (BLOOD GLUCOSE TEST) test strip Test blood sugar(s) 4 times daily. Dx: Type 2 DM - Controlled E11.9 Insulin: Yes (Patient not taking: Reported on 11/23/2023) Lancets lancets Test blood sugar(s) 4 times daily. Dx: Type 2 DM - Controlled E11.9 Insulin: Yes (Patient not taking: Reported on 11/23/2023) insulin needles, DISPOSABLE, (PEN NEEDLE) 31 gauge x 5/16 Use one needle per dose. 4 per day. (Patient not taking: Reported on 11/23/2023) Insulin [place], Disposable, (UNIFINE PENTIPS) 31 gauge x 1/4 ndle use 1 (ONE) new needle with each dose, FOUR per day. (Patient not taking: Reported on 11/23/2023) loratadine (CLARITIN) 10 mg tablet Take 1 tablet by mouth once daily. (Patient not taking: Reported on 11/23/2023) blood sugar diagnostic (BLOOD GLUCOSE TEST) test strip Test blood sugar(s) 4 times daily. Dx: Type 2 DM - Controlled E11.9 Insulin: Yes (Patient not taking: Reported on 11/23/2023) flash glucose scanning reader ([employer]YLE SHIVAM 10 DAY READER) 1 Each once every month. (Patient not taking: Reported on 09/11/2023) No current facility-administered medications for this visit. REVIEW OF SYSTEMS GENERAL: No weight loss, malaise or fevers HEENT: No changes in hearing or vision NECK: Negative for lumps, goiter, pain and significant neck swelling RESPIRATORY: Negative for cough, wheezing, dyspnea or shortness of breath CARDIOVASCULAR: Negative for chest pain or palpitations GI: Negative for abdominal discomfort, blood in stools or black stools, change in bowel habit, diarrhea, nausea, vomiting, constipation : +urinary incontinence; No history of dysuria DIRECTOR OF GLOBAL TALENT: Negative for abnormal vaginal bleeding, abnormal vaginal discharge or Breast symptoms ENDOCRINE: Negative for cold or heat intolerance, polyuria, polydipsia and goiter NEURO: No history of headaches, syncope, paralysis, seizures or tremors OBJECTIVE BP 130/72 Ht 5' .5 (1.54m) Wt 210 lb (95.3kg) LMP 03/21/2005 BMI 40.32 kg/(m^2). PELVIC: EGBUS: No lesions, atrophic appearance VAGINA: No discharge, no blood, no lesions; incomplete uterine prolapse, +cystocele CERVIX: non tender UTERUS: Anteverted, normal size, non tender ADNEXA: Non tender, no masses RECTOVAGINAL: Not examined EXTREMITIES: No edema, no calf tenderness NEUROLOGICAL: Grossly intact ASSESSMENT/PLAN: 1. Uterovaginal prolapse - ICD9: 618.4, ICD10: N81.4 (primary diagnosis) - consult with Dr. Lundy for hyst, possible bladder sling 2. Cystocele, midline - ICD9: 618.01, ICD10: N81.11 3. Urinary incontinence, unspecified type - ICD9: 788.30, ICD10: R32 4. Atrophic vaginitis - ICD9: 627.3, ICD10: N95.2 5. Atypical squamous cells of undetermined significance (ASCUS) on Papanicolaou smear of cervix - ICD9: 795.01, ICD10: R87.610 6. HPV (human papilloma virus) infection - ICD9: 079.4, ICD10: B97.7 7. LGSIL on Pap smear of cervix - ICD9: 795.03, ICD10: R87.612 - lgsil on colp ADOLFO Cadet PA-S2 Return for consult with Dr. Lundy. documented in this encounter [facility] 11-18-2023 Telephone encounter Note Patient has been identified by name and date of : yes Patient phones for refill(s): Requested Prescriptions Pending Prescriptions Disp Refills sucralfate (CARAFATE) 1 gram tablet 60 tablet 5 Sig: Take 1 tablet by mouth two times a day. Date of last office visit in primary care: 09/08/2023 Date of next office visit in primary care: 11/25/2023 Please advise. Thank you. Chrissy Hernandez MA. [facility] 11-18-2023 Miscellaneous Notes Patient has been identified by name and date of : yes Patient phones for refill(s): Requested Prescriptions Pending Prescriptions Disp Refills sucralfate (CARAFATE) 1 gram tablet 60 tablet 5 Sig: Take 1 tablet by mouth two times a day. Date of last office visit in primary care: 09/08/2023 Date of next office visit in primary care: 11/25/2023 Please advise. Thank you. hCrissy Hernandez MA. Jesus is calling Barak Tiwari MD today to request medication, not on her current list: sucralfate (CARAFATE) 1 gram tablet 60 tablet 5 05/06/2023 11/02/2023 Sig: Take 1 tablet by mouth two times a day. Sent to pharmacy as: sucralfate (CARAFATE) 1 gram tablet Class: Normal Route: ORAL Order: [id number] E-Prescribing Status: Receipt confirmed by pharmacy (05/06/2023 12:41 PM EST) Please send to [facility] today. Patient has been identified by name and birthdate. Duration of symptoms: N/A Person calling: self Call patient at: on cell [phone] (home) [phone] (cell) Was an appointment scheduled: No Closing statement: Results or non-symptom based questions: Thank you for calling [facility], your call will be returned within the next business day. Chel De Leon Pss documented in this encounter [facility] 11-18-2023 Telephone encounter Note Jesus is calling Barak Tiwari MD today to request medication, not on her current list: sucralfate (CARAFATE) 1 gram tablet 60 tablet 5 05/06/2023 11/02/2023 Sig: Take 1 tablet by mouth two times a day. Sent to pharmacy as: sucralfate (CARAFATE) 1 gram tablet Class: Normal Route: ORAL Order: [id number] E-Prescribing Status: Receipt confirmed by pharmacy (05/06/2023 12:41 PM EST) Please send to [facility] today. Patient has been identified by name and birthdate. Duration of symptoms: N/A Person calling: self Call patient at: on cell [phone] (home) [phone] (cell) Was an appointment scheduled: No Closing statement: Results or non-symptom based questions: Thank you for calling [facility], your call will be returned within the next business day. Chel De Leon Pss [facility] 11-12-2023 Telephone encounter Note Pt called stating she is having pain in her uterus and everytime I sit down, I can feel it. Rating uterine pain 10/10. Advised Jesus to go to ER d/t severe pain. Pt had been referred to [facility] [employer] GLO[employer] TAL[employer] and stated that she was unable to get an appt because they were not taking new patients. Advised Jesus that if she is unable to get into Dr. Hernández, we certainly could fax her referral to a uro estimation manager provider within the [facility]. Pt refuses to drive out of [facility] and states she just needs a referral to Dr. Hernández's office. Informed her referral had already been sent but will refax referral. Referral re-faxed to Dr. Hernández's office. Nancy Cadena RN [facility] 11-12-2023 Miscellaneous Notes Pt called stating she is having pain in her uterus and everytime I sit down, I can feel it. Rating uterine pain 10/10. Advised Jesus to go to ER d/t severe pain. Pt had been referred to [facility] [employer]LO[employer] T[facility] and stated that she was unable to get an appt because they were not taking new patients. Advised Jesus that if she is unable to get into Dr. Hernández, we certainly could fax her referral to a uro estimation manager provider within the [facility]. Pt refuses to drive out of [facility] and states she just needs a referral to Dr. Hernández's office. Informed her referral had already been sent but will refax referral. Referral re-faxed to Dr. Hernández's office. Nancy Cadena RN Order was placed back in July for patient to see Uro estimation manager patient is not able to travel outside of [place]. Could patient be seen by provider in [place] please advise the patient. documented in this encounter [facility] 11-12-2023 Telephone encounter Note Order was placed back in July for patient to see Uro estimation manager patient is not able to travel outside of [place]. Could patient be seen by provider in [place] please advise the patient. [facility] 11-04-2023 Telephone encounter Note Scheduled 11/25/23 [facility] 11-04-2023 Miscellaneous Notes Scheduled 11/25/23 Patient requesting the following medications: carvedilol (COREG) 25 mg tablet () pantoprazole DR (PROTONIX) 40 mg tablet () Patient also asking for all of her inhalers to be refilled. Please send prescriptions to [facility]. documented in this encounter [facility] 11-04-2023 Telephone encounter Note Patient requesting the following medications: carvedilol (COREG) 25 mg tablet () pantoprazole DR (PROTONIX) 40 mg tablet () Patient also asking for all of her inhalers to be refilled. Please send prescriptions to [facility]. [facility] 11-04-2023 Telephone encounter Note Prescription Refill Information The patient has been identified by name and date of : Yes Caregiver verified no other encounters exist for this prescription request: Yes Caregiver confirmed with patient/requestor that no other refills are due, in the near future, with this provider at this time: Yes The last office visit in the department: 09-08-23 Does the patient have a future office visit with this provider/department: Yes Requested Prescriptions Pending Prescriptions Disp Refills SUMAtriptan (IMITREX) 50 mg tablet 9 tablet 11 Sig: Take 1 tablet (50 mg) by mouth as needed for migraine headache (see administration instructions). levothyroxine (SYNTHROID) 200 mcg tablet 90 tablet 3 Sig: Take 1 tablet by mouth once daily. Thursday through Thursday, 1/2 tab on Thursday valsartan (DIOVAN) 160 mg tablet Sig: Take 1 tablet by mouth once daily. [facility] 04, 2023 11:10 AM [facility] 11-04-2023 Miscellaneous Notes Prescription Refill Information The patient has been identified by name and date of : Yes Caregiver verified no other encounters exist for this prescription request: Yes Caregiver confirmed with patient/requestor that no other refills are due, in the near future, with this provider at this time: Yes The last office visit in the department: 09-08-23 Does the patient have a future office visit with this provider/department: Yes Requested Prescriptions Pending Prescriptions Disp Refills SUMAtriptan (IMITREX) 50 mg tablet 9 tablet 11 Sig: Take 1 tablet (50 mg) by mouth as needed for migraine headache (see administration instructions). levothyroxine (SYNTHROID) 200 mcg tablet 90 tablet 3 Sig: Take 1 tablet by mouth once daily. Thursday through Thursday, 1/2 tab on Thursday valsartan (DIOVAN) 160 mg tablet Sig: Take 1 tablet by mouth once daily. [facility] 20[facility] 11:10 AM documented in this encounter [facility] 09-18-2023 Telephone encounter Note Letter sent to patient. [facility] 09-18-2023 Miscellaneous Notes Letter sent to patient. Please let patient know that stool card is negative for blood. documented in this encounter [facility] 09-17-2023 Telephone encounter Note Please let patient know that stool card is negative for blood. [facility] Work Phone: 09-16-2023 Telephone encounter Note Patient calls and notified of results and providers instructions. Patient verbalizes understanding. Lizet Cisneros RN [facility] 09-16-2023 Miscellaneous Notes Patient calls and notified of results and providers instructions. Patient verbalizes understanding. Lizet Cinseros RN 3rd attempt to reach pt. Left a message for pt to call the office and ask to speak to a nurse. Letter sent with results. Sawthi Garcia LPN Called and left message on patients voicemail to return call to the office and ask to speak with a triage nurse. Becka Alejandra MA LM to return call to office. Caesar Dunham LPN Can please let patient know that I received her results. Her ultrasound of her leg was negative for any blood clots. Her labwork looked within normal/stable. July Cedillo APRN.ROSEANN documented in this encounter [facility] 09-16-2023 Telephone encounter Note 3rd attempt to reach pt. Left a message for pt to call the office and ask to speak to a nurse. Letter sent with results. Swathi Garcia LPN [facility] 09-14-2023 Telephone encounter Note Called and left message on patients voicemail to return call to the office and ask to speak with a triage nurse. Becka Alejandra MA [facility] 09-11-2023 Telephone encounter Note LM to return call to office. Caesar Dunham LPN [facility] 09-11-2023 Telephone encounter Note Can please let patient know that I received her results. Her ultrasound of her leg was negative for any blood clots. Her labwork looked within normal/stable. July Cedillo APRN.ROSEANN [facility] 09-11-2023 Instructions Kathrine Bajwa MA - 09/11/2023 9:01 AM EDT YOUR RECOVERY It may take a few weeks for your cervix to heal. While your cervix heals, you may have: - Vaginal bleeding (less than a normal menstrual period) - Mild cramping - A brown-black vaginal discharge (similar to coffee grounds) which is a result of the paste used to help stop bleeding from the procedure Do NOT put anything in the vagina for 1 week after your colposcopy if your doctor does a biopsy of your cervix. This includes sex, tampons, and douches. If you have any discomfort, you may take an over the counter pain medication (motrin, advil, ibuprofen, tylenol, etc). If this does not relieve your discomfort, contact your doctor's office for a prescription strength pain medication. It is okay to wear a sanitary pad until the discharge and spotting stops. RISKS Although problems seldom occur with colposcopy, there can be some complications. You may feel faint during and shortly after the procedure as well as have some bleeding and vaginal discharge after the procedure. There is also a risk of infection after the procedure. These complications are rare and can be easily treated. You should contact you doctor is you have any of the following: - Heavy bleeding (more than your normal period) - Bleeding with clots - Severe abdominal pain - Fever (more than 100.4F) - Foul smelling vaginal discharge RESULTS If a biopsy was taken, we will have the results of your biopsy in 1-2 weeks. If you do not hear the results of your biopsy after 2 weeks, please contact your physicians office for the results. Depending on the biopsy results, your doctor will determine your follow up plan which may include further testing or treatments. STAYING HEALTHY After the procedure, you will need to see your doctor for follow up visits during the year. At these visits your doctor will check the health of your cervix with a pap smear. After three normal pap smears, your doctor will allow you to return to having exams once a year. If you have another abnormal pap smear, you may need closer follow up for longer or you may need additional treatment. By making a few lifestyle changes after the procedure, you can help protect the health of your cervix: - Have regular pelvic exams and pap smears as ordered by your doctor. - Stop smoking as smoking increases your risk of developing a cancer of the cervix - If you have more than one sexual partner, limit your number of partners and use condoms to reduce your risks of STDs. If you have any additional questions, please contact your doctor's office. documented in this encounter [facility] 09-11-2023 History of Present illness Narrative Jesus is a 57 year old who presents today for a colposcopy. The patient's last pap smear was ASCUS with positive HPV from July 2023. Patient has a history of abnormal pap: Yes. The patient has had prior treatment: none. Uterine prolapse present. Per patient hysterectomy planned test: n/a UNIVERSAL PROTOCOL / SAFETY CHECKLIST Procedure to be Performed: colposcopy with biopsy Sign In: A Moment of CARE was completed. Personnel directly involved with the procedure wore the appropriate PPE (Personal Protective Equipment). Patient/Surrogate Stated/Verified: PATIENT VERIFIED(optional for EMERGENT procedures): Patient name, Date of , Relevant allergies, and The intended procedure Time Out Communication: Intended patient and procedure match the source documents. Consent documented and matches the intended procedure. Sign Out: SIGN OUT (optional for EMERGENT procedures): All specimen containers correctly labeled. Patty Roman MD PROCEDURE: EXTERNAL GENITALIA: Normal in appearance without lesions VAGINA: Normal in appearance without lesions CERVIX: Speculum placed in vagina and excellent visualization of cervix achieved. Cervix swabbed x 3 with 3% acetic acid solution. Cervix grossly normal. Squamocolumnar junction visualized. acetowhite changes noted 9 and 1 o'clock. BIOPSY: Done at 1:00 and 9:00 ECC: not done HEMOSTASIS: Obtained with silver nitrate Procedure Summary: Patient tolerated procedure well and colposcopy was adequate. No annotated images are attached to the encounter. ASSESSMENT: mild dysplasia PLAN: Specimens labeled and sent to Pathology. Will notify patient of results in 1-2 weeks. Patty Roman MD documented in this encounter [facility] 09-09-2023 Telephone encounter Note Patient informed and verbalized understanding. Scheduled for follow up in October. Advised her to get labs prior. Kimmy Zavala MA [facility] 09-09-2023 Miscellaneous Notes Patient informed and verbalized understanding. Scheduled for follow up in October. Advised her to get labs prior. Kimmy Zavala MA Anemia is starting to finally improve. Recheck cbc in eight weeks. Set up follow up with me after for full check up. documented in this encounter [facility] 09-09-2023 Telephone encounter Note Anemia is starting to finally improve. Recheck cbc in eight weeks. Set up follow up with me after for full check up. [facility] 09-08-2023 Instructions July Cedillo APRN.[employer]ICLE [employer] EQUIPMENT CLEANER - 09/08/2023 10:52 AM EDT Start the doxycycline twice daily X 1 week. Schedule the ultrasound. Get the labwork done. Clean leg daily with soap and water and apply antibiotic ointment. Let us know if no better/worsening. documented in this encounter [facility] 09-08-2023 History of Present illness Narrative This is a 57 year old female who presents today with: Patient presents with: Acute Visit: R lower leg pain after hitting it on car door last week HISTORY OF PRESENT ILLNESS: Jesus Zepeda is a 57 year old female. Patient presents with: Acute Visit: R lower leg pain after hitting it on car door last week Pt presents today with complaint of RLE pain after hitting it on the car door last week. Refers it initially hurt, but improved. However, she is still getting some pain at night. Refers that there was a little blood noted on her sock. Legs are chronically swollen. PAST MEDICAL HISTORY: PAST MEDICAL HISTORY Diagnosis Date Adjustment disorder with depressed mood Chronic hypoxemic respiratory failure (HCC) Esophageal reflux Essential hypertension, benign Generalized anxiety disorder GI bleed HLD (hyperlipidemia) Menorrhagia Migraine without aura Morbid obesity (HCC) Nonspecific abnormal results of other endocrine function study 06/2004 Benign biopsy. Abnormally high thyroid globulin HARMONY (obstructive sleep apnea) Pulmonary emboli (HCC) 09/2013 Bilateral on CTA chest. Scleritis Type II or unspecified type diabetes mellitus without mention of complication, not stated as uncontrolled PAST SURGICAL HISTORY Procedure Laterality Date CARPAL TUNNEL Right 12/10 CHOLECYSTECTOMY 11/15/2019 Dr. Ferguson EGD 03/07/2020 Dr Ferguson LIG/TRNSXJ FLP TUBE ABDL/VAG APPR /BI 1988 THYROID BIOPSY US 11/2015 THYROIDECTOMY TOTAL/COMPLETE Left 12/13/2018 Dr Ferguson TOTAL THYROID LOBECTOMY UNI W/WO ISTHMUSECTOMY 01/15/07 right XCAPSL CTRC RMVL INSJ IO LENS PROSTH W/O ECP Right 06/2015 Cataract Extraction with PC IOL XCAPSL CTRC RMVL INSJ IO LENS PROSTH W/O ECP Left 07/2015 Cataract Extraction with PC IOL ALLERGIES Latex, Prinivil [Lisinopril], and Zanaflex [Tizanidine Hcl] MEDICATIONS Current Outpatient Medications Medication Sig albuterol HFA (PROVENTIL HFA, VENTOLIN HFA) 90 mcg/actuation inhaler Inhale 2 Puffs as instructed every 6 hours as needed. alcohol swabs (BD SINGLE USE SWABS REGULAR) For use with insulin injections 4 times daily budesonide-formoterol (SYMBICORT) 160-4.5 mcg/actuation inhaler Inhale 2 Puffs as instructed two times a day. phenazopyridine (PYRIDIUM) 200 mg tablet Take 1 tablet by mouth three times a day as needed. mupirocin (BACTROBAN) 2 % ointment Apply to affected area three times a day. furosemide (LASIX) 20 mg tablet Take 0.5 tablets by mouth once daily. levothyroxine (SYNTHROID) 200 mcg tablet Take 1 tablet by mouth once daily. Thursday through Thursday, 1/2 tab on Thursday atorvastatin (LIPITOR) 20 mg tablet Take 1 tablet by mouth once daily. For cholesterol. blood sugar diagnostic (BLOOD GLUCOSE TEST) test strip Test blood sugar(s) 4 times daily. Dx: Type 2 DM - Controlled E11.9 Insulin: Yes carvedilol (COREG) 25 mg tablet Take 0.5 tablets by mouth two times a day. sucralfate (CARAFATE) 1 gram tablet Take 1 tablet by mouth two times a day. SUMAtriptan (IMITREX) 50 mg tablet Take 1 tablet by mouth as needed for migraine headache (see administration instructions). SITagliptin-metFORMIN (JANUMET) 50-1,000 mg per tablet Take 1 tablet by mouth twice daily with meals. valsartan (DIOVAN) 160 mg tablet Take 1 tablet by mouth once daily. pantoprazole DR (PROTONIX) 40 mg tablet Take 1 tablet by mouth twice daily. Take on empty stomach, 1/2 hr before meal. nystatin-triamcinolone (MYCOLOG) ointment Apply sparingly to skin twice daily for irritation/infection. (Patient not taking: Reported on 08/13/2023) C-500 500 mg tablet Take 1 tablet by mouth once daily. Lancets lancets Test blood sugar(s) 4 times daily. Dx: Type 2 DM - Controlled E11.9 Insulin: Yes fluorometholone (FML LIQUID FILM) 0.1 % ophthalmic suspension INSTILL 1 DROP IN BOTH EYES 1-2 TIMES PER DAY insulin needles, DISPOSABLE, (PEN NEEDLE) 31 gauge x 5/16 Use one needle per dose. 4 per day. Insulin [place], Disposable, (UNIFINE PENTIPS) 31 gauge x 1/4 ndle use 1 (ONE) new needle with each dose, FOUR per day. loratadine (CLARITIN) 10 mg tablet Take 1 tablet by mouth once daily. hydrocortisone (PROCTOCORT) 1 % cream Apply to affected area twice daily. blood sugar diagnostic (BLOOD GLUCOSE TEST) test strip Test blood sugar(s) 4 times daily. Dx: Type 2 DM - Controlled E11.9 Insulin: Yes flash glucose scanning reader (FREESTYLE SHIVAM 10 DAY READER) 1 Each once every month. No current facility-administered medications for this visit. FAMILY HISTORY Problem Relation Age of Onset Hypertension Mother Diabetes Mother Thyroid Mother thyroidectomy Heart Mother murmur Heart Father of [place] Diabetes Brother Hypertension Brother No Known Problems Brother other (Other) Maternal Grandmother Pneumothorax Breast Cancer Maternal Aunt Metastatic to bone other (Other) Other No DVT or PE. No Known Problems Son No Known Problems Daughter Social History Tobacco Use Smoking status: Never Smokeless tobacco: Never Tobacco comments: FAther smoking in childhood home. Has lived with smoker in home, son quit about 2015. Vaping Use Vaping Use: Never used Substance Use Topics Alcohol use: Not Currently Drug use: Never EXAM: BP 136/78 Pulse (!) 55 Resp 16 LMP 03/21/2005 SpO2 90% PHYSICAL EXAM: General Appearance: Well appearing, alert, in no acute distress, well-hydrated, well nourished.. Skin: Skin color, texture, turgor normal, no suspicious rashes or lesions. Head: Normocephalic, no masses, lesions, tenderness or abnormalities. Eyes: Anicteric sclera. Pupils are equally round and reactive to light. Extraocular movements are intact. . Lungs: Lungs clear to auscultation. No wheezing, rhonchi, rales.. Heart: RRR without murmur, gallop, or rubs. No ectopy. Extremities: chronic lymphedema and venous insufficiency changes. + scabbed area on the right lateral leg. + redness. No increased warmth. Neurologic: Gait normal. ASSESSMENT/PLAN: 1. Pain of right lower extremity - ICD9: 729.5, ICD10: M79.604 (primary diagnosis) Will go ahead and cover for early cellulitis. Keep wound clean/dry and apply antibiotic ointment. Will also get ultrasound to r/o traumatic DVT. - DOXYCYCLINE HYCLATE 100 MG TABLET - US LEG VEIN DVT UNL VAS LAB - US DVT LOWER RIGHT 2. Anemia, unspecified type - ICD9: 285.9, ICD10: D64.9 Never repeated labs from May. Complete anemia work-up. - RETICULOCYTE COUNT - BASIC METABOLIC PANEL 3. Type 2 diabetes mellitus without complication, with long-term current use of insulin ([facility]) - ICD9: 250.00, V58.67, ICD10: E11.9, Z79.4 - Control undetermined, due for labs - Continue current medications - HEMOGLOBIN A1C Discussed treatment plan and patient voices understanding. Patient's questions answered appropriately. Medications and potential side effects were discussed and patient voices understanding. Return to the office as scheduled or as needed for worsening/no improvement. July Cedillo APRN.VEHICLE AND EQUIPMENT CLEANER documented in this encounter [facility] 09-03-2023 Telephone encounter Note Patient notified. Lyndsay Silva RN [facility] 09-03-2023 Miscellaneous Notes Patient notified. Lyndsay Silva RN Left message for patient to call office. Lyndsay Silva RN Please notify patient: Ultrasound appears normal. If still having pelvic pain after BV/UTI treatment, to follow up. Continue to plan for colp. Oziel Lang APRN.CNP documented in this encounter [facility] 09-03-2023 Telephone encounter Note Left message for patient to call office. Lyndsay Silva RN [facility] 09-03-2023 Telephone encounter Note Please notify patient: Ultrasound appears normal. If still having pelvic pain after BV/UTI treatment, to follow up. Continue to plan for colp. Oziel Lang APRN.CNP [facility] 08-31-2023 Telephone encounter Note Patient has been identified by name and date of : yes Patient phones for refill(s): Requested Prescriptions Pending Prescriptions Disp Refills alcohol swabs (BD SINGLE USE SWABS REGULAR) 400 Each 3 Sig: For use with insulin injections 4 times daily albuterol HFA (PROVENTIL HFA, VENTOLIN HFA) 90 mcg/actuation inhaler 1 Each 5 Sig: Inhale 2 Puffs as instructed every 6 hours as needed. budesonide-formoterol (SYMBICORT) 160-4.5 mcg/actuation inhaler 1 Each 5 Sig: Inhale 2 Puffs as instructed two times a day. Date of last office visit in primary care: 05/21/2023 Date of next office visit in primary care: Visit date not found Please advise. Thank you. Chel George. [facility] 08-31-2023 Miscellaneous Notes Patient has been identified by name and date of : yes Patient phones for refill(s): Requested Prescriptions Pending Prescriptions Disp Refills alcohol swabs (BD SINGLE USE SWABS REGULAR) 400 Each 3 Sig: For use with insulin injections 4 times daily albuterol HFA (PROVENTIL HFA, VENTOLIN HFA) 90 mcg/actuation inhaler 1 Each 5 Sig: Inhale 2 Puffs as instructed every 6 hours as needed. budesonide-formoterol (SYMBICORT) 160-4.5 mcg/actuation inhaler 1 Each 5 Sig: Inhale 2 Puffs as instructed two times a day. Date of last office visit in primary care: 05/21/2023 Date of next office visit in primary care: Visit date not found Please advise. Thank you. Chel George. documented in this encounter [facility] 08-31-2023 Telephone encounter Note Patient notified. Appointment given. Unable to take Ibuprofen. Increases her BP and gives her a migraine. Will take Tylenol 1,000 MG. Patty Chavarria RN [facility] 08-31-2023 Miscellaneous Notes Patient notified. Appointment given. Unable to take Ibuprofen. Increases her BP and gives her a migraine. Will take Tylenol 1,000 MG. Patty Chavarria RN Left message for patient to call office. Lyndsay Silva RN Pap ASCUS, HPV + Needs colpo. Ordered and placed in problem list. Please assist in scheduling. Oziel Lang APRN.CNP documented in this encounter [facility] 08-31-2023 History of Present illness Narrative Radiology Service Progress Note PATIENT NAME: Jesus Zepeda DATE OF SERVICE: August 31, 2023 TIME: 11:48 AM PATIENT IDENTITY VERIFICATION COMPLETED USING TWO (2) IDENTIFIERS: Name and Date of confirmed by patient verbally. FALL SCREENING: Has the patient had 2 falls in the last year or 1 fall with injury or currently using an Ambulatory Assistive Device (Walker, Cane, Wheelchair, Crutches, etc.)? No PATIENT GENDER DATA: Female. status: : No status: NO. PATIENT RELEVANT IMPLANT DATA REVIEWED: Not Applicable PATIENT PRESENTS WITH AN IMPLANTABLE OR ATTACHED SCREW MACHINE OPERATOR: No RADIOLOGY DEPARTMENT: Ultrasound PERIPHERAL IV DATA: Not applicable SIGNED BY: Ingris Mendez RDMS RVT August 31, 2023 11:48 AM documented in this encounter [facility] 08-27-2023 Telephone encounter Note Left message for patient to call office. Lyndsay Silva RN [facility] 08-27-2023 Telephone encounter Note Pap ASCUS, HPV + Needs colpo. Ordered and placed in problem list. Please assist in scheduling. Oziel Lang APRN.CNP [facility] 08-17-2023 Telephone encounter Note Patient notified. Symptoms are improving. Encouraged to finish all medications. Has an appointment with Uro/Mapping Supervisor on September 23. Patty Chavarria RN [facility] 08-17-2023 Miscellaneous Notes Patient notified. Symptoms are improving. Encouraged to finish all medications. Has an appointment with Uro/Mapping Supervisor on September 23. Patty Chavarria RN Please notify patient: Urine culture confirms UTI. Are symptoms improving with Keflex? Also being treated for BV. Oziel Lang APRN.VEHICLE AND EQUIPMENT CLEANER documented in this encounter [facility] 08-15-2023 Telephone encounter Note Please notify patient: Urine culture confirms UTI. Are symptoms improving with Keflex? Also being treated for BV. Oziel Lang APRN.VEHICLE AND EQUIPMENT CLEANER [facility] 08-14-2023 Miscellaneous Notes Patient notified of results, verbalizes understanding of instructions. Patient also given phone number for Dr. Hernández to schedule appointment. Consult order faxed. Kimmy Baker RN Message left asking pt to contact the office for results and instructions. Ailyn Dong LPN When patient calls back, please notify that culture is positive for BV. This is an imbalance of your normal bacteria. I will send a prescription for Flagyl 500mg by mouth twice a day for 7 days. 1) No alcohol during treatment and for 72 hours after last dose. 2) No intercourse during treatment. 3) Probiotic by mouth once daily for 30 days or as needed. Oziel Lang APRN.CNP Called patient to give her the information, but patient states she will have to call the office back tomorrow as she is driving. Kimmy Baker RN Please call patient with phone number for Dr. Hernández's office to schedule appointment. Did not want to drive to [place] for URO DIRECTOR OF GLOBAL TALENT consult. Oziel Lang APRN.CNP documented in this encounter [facility] 08-13-2023 History of Present illness Narrative Retread Supervisor offered: Patient declines. Jesus Zepeda is a 57 year old female who presents for problem visit of something hanging out of the vagina. HPI: Jesus reports that she has been experiencing something hanging out of the vagina for the last 3-4 months. Her UA today shows moderate amount of blood, trace amount of protein, and large amount of leukocytes. She also notes pelvic cramping. She has history of abnormal pap and HPV. OB History T2 L2 SAB0 IAB0 Ectopic0 Multiple0 Live Births0 Mapping Supervisor History LMP: 03/21/2005, Postmenopausal Age at Menarche: Age at First : Age at Menopause: Mapping Supervisor History Comments: Sexual Activity: Not Currently; No partner data on record Contraception: No contraception data on record PAST MEDICAL HISTORY Diagnosis Date Adjustment disorder with depressed mood Chronic hypoxemic respiratory failure (HCC) Esophageal reflux Essential hypertension, benign Generalized anxiety disorder GI bleed HLD (hyperlipidemia) Menorrhagia Migraine without aura Morbid obesity (HCC) Nonspecific abnormal results of other endocrine function study 06/2004 Benign biopsy. Abnormally high thyroid globulin HARMONY (obstructive sleep apnea) Pulmonary emboli (HCC) 09/2013 Bilateral on CTA chest. Scleritis Type II or unspecified type diabetes mellitus without mention of complication, not stated as uncontrolled PAST SURGICAL HISTORY Procedure Laterality Date CARPAL TUNNEL Right 12/10 CHOLECYSTECTOMY 11/15/2019 Dr. Ferguson EGD 03/07/2020 Dr Ferguson LIG/TRNSXJ FLP TUBE ABDL/VAG APPR UNI/BI 1988 THYROID BIOPSY US 11/2015 THYROIDECTOMY TOTAL/COMPLETE Left 12/13/2018 Dr Ferguson TOTAL THYROID LOBECTOMY UNI W/WO ISTHMUSECTOMY 01/15/07 right XCAPSL CTRC RMVL INSJ IO LENS PROSTH W/O ECP Right 06/2015 Cataract Extraction with PC IOL XCAPSL CTRC RMVL INSJ IO LENS PROSTH W/O ECP Left 07/2015 Cataract Extraction with PC IOL FAMILY HISTORY Problem Relation Age of Onset Hypertension Mother Diabetes Mother Thyroid Mother thyroidectomy Heart Mother murmur Heart Father of [place] Diabetes Brother Hypertension Brother No Known Problems Brother other (Other) Maternal Grandmother Pneumothorax Breast Cancer Maternal Aunt Metastatic to bone other (Other) Other No DVT or PE. No Known Problems Son No Known Problems Daughter Social History Tobacco Use Smoking status: Never Smokeless tobacco: Never Tobacco comments: FAther smoking in childhood home. Has lived with smoker in home, son quit about 2015. Vaping Use Vaping Use: Never used Substance Use Topics Alcohol use: No Drug use: No Current Outpatient Medications Medication Sig phenazopyridine (PYRIDIUM) 200 mg tablet Take 1 tablet by mouth three times a day as needed. mupirocin (BACTROBAN) 2 % ointment Apply to affected area three times a day. albuterol HFA (PROVENTIL HFA, VENTOLIN HFA) 90 mcg/actuation inhaler Inhale 2 Puffs as instructed every 6 hours as needed. alcohol swabs (BD SINGLE USE SWABS REGULAR) For use with insulin injections 4 times daily furosemide (LASIX) 20 mg tablet Take 0.5 tablets by mouth once daily. levothyroxine (SYNTHROID) 200 mcg tablet Take 1 tablet by mouth once daily. Thursday through Thursday, 1/2 tab on Thursday atorvastatin (LIPITOR) 20 mg tablet Take 1 tablet by mouth once daily. For cholesterol. blood sugar diagnostic (BLOOD GLUCOSE TEST) test strip Test blood sugar(s) 4 times daily. Dx: Type 2 DM - Controlled E11.9 Insulin: Yes carvedilol (COREG) 25 mg tablet Take 0.5 tablets by mouth two times a day. sucralfate (CARAFATE) 1 gram tablet Take 1 tablet by mouth two times a day. budesonide-formoterol (SYMBICORT) 160-4.5 mcg/actuation inhaler Inhale 2 Puffs as instructed twice daily. SUMAtriptan (IMITREX) 50 mg tablet Take 1 tablet by mouth as needed for migraine headache (see administration instructions). SITagliptin-metFORMIN (JANUMET) 50-1,000 mg per tablet Take 1 tablet by mouth twice daily with meals. valsartan (DIOVAN) 160 mg tablet Take 1 tablet by mouth once daily. pantoprazole DR (PROTONIX) 40 mg tablet Take 1 tablet by mouth twice daily. Take on empty stomach, 1/2 hr before meal. nystatin-triamcinolone (MYCOLOG) ointment Apply sparingly to skin twice daily for irritation/infection. C-500 500 mg tablet Take 1 tablet by mouth once daily. Lancets lancets Test blood sugar(s) 4 times daily. Dx: Type 2 DM - Controlled E11.9 Insulin: Yes fluorometholone (FML LIQUID FILM) 0.1 % ophthalmic suspension INSTILL 1 DROP IN BOTH EYES 1-2 TIMES PER DAY insulin needles, DISPOSABLE, (PEN NEEDLE) 31 gauge x 5/16 Use one needle per dose. 4 per day. Insulin [place], Disposable, (UNIFINE PENTIPS) 31 gauge x 1/4 ndle use 1 (ONE) new needle with each dose, FOUR per day. loratadine (CLARITIN) 10 mg tablet Take 1 tablet by mouth once daily. hydrocortisone (PROCTOCORT) 1 % cream Apply to affected area twice daily. blood sugar diagnostic (BLOOD GLUCOSE TEST) test strip Test blood sugar(s) 4 times daily. Dx: Type 2 DM - Controlled E11.9 Insulin: Yes flash glucose scanning reader (FREESTYLE SHIVAM 10 DAY READER) 1 Each once every month. No current facility-administered medications for this visit. Allergies As of Date: 08/13/2023 Allergen Noted Reaction LATEX 11/26/2006 Itching PRINIVIL [LISINOPRIL] 07/23/2015 Cough ZANAFLEX [TIZANIDINE HCL] 06/05/2016 Shortness of Breath Fully Assessed 06/08/2023 REVIEW OF SYSTEMS Bladder: No urinary urgency, or incontinence. + urinary frequency, dysuria, and hematuria Expanded ROS: N/A Allergies and current medication updated:Yes EXAM: BP 104/60 Pulse 64 Resp 14 Wt 212 lb (96.2kg) SpO2 93% LMP 03/21/2005 GENERAL: pleasant, female in no apparent distress HEENT: Normocephalic, atraumatic, mucus membranes moist, and no lesions NECK: Supple, full range of motion, and no adenopathy CHEST: Normal inspiratory effort PELVIC: external genitalia normal, normal Bartholin's glands, urethra, Rewey's glands, no vulvar lesions, + 0.5 mass vs polyp to os, pink, well rounded, physiologic discharge present, normal appearing perineal body and perianal region + complete uterovaginal prolapse BIMANUAL: uterus normal size, shape and consistency, no adnexal masses, and non-tender NEURO: alert and oriented x3,exam grossly non-focal EXTREMITIES: edema ASSESSMENT AND PLAN: Complete uterovaginal prolapse - ICD9: 618.3, ICD10: N81.3 (primary diagnosis) - CONSULT TO URO GYNECOLOGY - Explained findings to patient - Avoid standing for long periods and straining Dysuria - ICD9: 788.1, ICD10: R30.0 Urinary frequency - ICD9: 788.41, ICD10: R35. Hematuria, unspecified type - ICD9: 599.70, ICD10: R31.9 - Suspect UTI based on UA - Rx for Keflex sent - Urine culture sent - To notify with fever or chills Cervical cancer screening - ICD9: V76.2, ICD10: Z12.4 - Prior abnormal pap - Pap done today Pelvic pain in female - ICD9: 625.9, ICD10: R10.2 - ИВАН/TRICHOMONAS NAAT - BACTERIAL VAGINOSIS NAAT - US FEMALE PELVIS TRANSVAG Oziel Lang APRN.CNP I spent a total of 30 minutes on the date of the service which included preparing to see the patient, [id number] patient care, completing clinical documentation, performing a medically appropriate examination, counseling and educating the patient/family/caregiver, and ordering medications, tests, or procedures. documented in this encounter [facility] 06-11-2023 Miscellaneous Notes Patient notified. PEYTON CONNER RN Left message for patient to call office. Patty Chavarria RN Please let the pt know that she has 2 different bacteria present for the UTI. The Marcobid will cover 1 but not the other, so I'm going to send in another ATB that will cover both for her to take and she can stop the Macrobid. Nerissa Hassan APRN.VEHICLE AND EQUIPMENT CLEANER documented in this encounter [facility] 06-08-2023 History of Present illness Narrative Jesus Zepeda is a 57 year old female who presents for problem visit dysuria for several month(s). HPI: burning with urination, cramping, increase in urgency and frequency OB History T2 L2 SAB0 IAB0 Ectopic0 Multiple0 Live Births0 Mapping Supervisor History LMP: 03/21/2005, Postmenopausal Age at Menarche: Age at First : Age at Menopause: Mapping Supervisor History Comments: Sexual Activity: Not Currently; No partner data on record Contraception: No contraception data on record PAST MEDICAL HISTORY Diagnosis Date Adjustment disorder with depressed mood Chronic hypoxemic respiratory failure (HCC) Esophageal reflux Essential hypertension, benign Generalized anxiety disorder GI bleed HLD (hyperlipidemia) Menorrhagia Migraine without aura Morbid obesity (HCC) Nonspecific abnormal results of other endocrine function study 06/2004 Benign biopsy. Abnormally high thyroid globulin HARMONY (obstructive sleep apnea) Pulmonary emboli (HCC) 09/2013 Bilateral on CTA chest. Scleritis Type II or unspecified type diabetes mellitus without mention of complication, not stated as uncontrolled PAST SURGICAL HISTORY Procedure Laterality Date CARPAL TUNNEL Right 12/10 CHOLECYSTECTOMY 11/15/2019 Dr. Ferguson EGD 03/07/2020 Dr Ferguson LIG/TRNSXJ FLP TUBE ABDL/VAG APPR UNI/BI 1988 THYROID BIOPSY US 11/2015 THYROIDECTOMY TOTAL/COMPLETE Left 12/13/2018 Dr Ferguson TOTAL THYROID LOBECTOMY UNI W/WO ISTHMUSECTOMY 01/15/07 right XCAPSL CTRC RMVL INSJ IO LENS PROSTH W/O ECP Right 06/2015 Cataract Extraction with PC IOL XCAPSL CTRC RMVL INSJ IO LENS PROSTH W/O ECP Left 07/2015 Cataract Extraction with PC IOL FAMILY HISTORY Problem Relation Age of Onset Hypertension Mother Diabetes Mother Thyroid Mother thyroidectomy Heart Mother murmur Heart Father of [place] Diabetes Brother Hypertension Brother No Known Problems Brother other (Other) Maternal Grandmother Pneumothorax Breast Cancer Maternal Aunt Metastatic to bone other (Other) Other No DVT or PE. No Known Problems Son No Known Problems Daughter Social History Tobacco Use Smoking status: Never Smokeless tobacco: Never Tobacco comments: FAther smoking in childhood home. Has lived with smoker in home, son quit about 2015. Vaping Use Vaping Use: Never used Substance Use Topics Alcohol use: No Drug use: No Current Outpatient Medications Medication Sig mupirocin (BACTROBAN) 2 % ointment Apply to affected area three times a day. albuterol HFA (PROVENTIL HFA, VENTOLIN HFA) 90 mcg/actuation inhaler Inhale 2 Puffs as instructed every 6 hours as needed. alcohol swabs (BD SINGLE USE SWABS REGULAR) For use with insulin injections 4 times daily furosemide (LASIX) 20 mg tablet Take 0.5 tablets by mouth once daily. levothyroxine (SYNTHROID) 200 mcg tablet Take 1 tablet by mouth once daily. Thursday through Thursday, 1/2 tab on Thursday atorvastatin (LIPITOR) 20 mg tablet Take 1 tablet by mouth once daily. For cholesterol. blood sugar diagnostic (BLOOD GLUCOSE TEST) test strip Test blood sugar(s) 4 times daily. Dx: Type 2 DM - Controlled E11.9 Insulin: Yes carvedilol (COREG) 25 mg tablet Take 0.5 tablets by mouth two times a day. sucralfate (CARAFATE) 1 gram tablet Take 1 tablet by mouth two times a day. budesonide-formoterol (SYMBICORT) 160-4.5 mcg/actuation inhaler Inhale 2 Puffs as instructed twice daily. SUMAtriptan (IMITREX) 50 mg tablet Take 1 tablet by mouth as needed for migraine headache (see administration instructions). SITagliptin-metFORMIN (JANUMET) 50-1,000 mg per tablet Take 1 tablet by mouth twice daily with meals. valsartan (DIOVAN) 160 mg tablet Take 1 tablet by mouth once daily. pantoprazole DR (PROTONIX) 40 mg tablet Take 1 tablet by mouth twice daily. Take on empty stomach, 1/2 hr before meal. nystatin-triamcinolone (MYCOLOG) ointment Apply sparingly to skin twice daily for irritation/infection. C-500 500 mg tablet Take 1 tablet by mouth once daily. Lancets lancets Test blood sugar(s) 4 times daily. Dx: Type 2 DM - Controlled E11.9 Insulin: Yes fluorometholone (FML LIQUID FILM) 0.1 % ophthalmic suspension INSTILL 1 DROP IN BOTH EYES 1-2 TIMES PER DAY insulin needles, DISPOSABLE, (PEN NEEDLE) 31 gauge x 5/16 Use one needle per dose. 4 per day. Insulin [place], Disposable, (UNIFINE PENTIPS) 31 gauge x 1/4 ndle use 1 (ONE) new needle with each dose, FOUR per day. loratadine (CLARITIN) 10 mg tablet Take 1 tablet by mouth once daily. hydrocortisone (PROCTOCORT) 1 % cream Apply to affected area twice daily. blood sugar diagnostic (BLOOD GLUCOSE TEST) test strip Test blood sugar(s) 4 times daily. Dx: Type 2 DM - Controlled E11.9 Insulin: Yes flash glucose scanning reader (FREESTYLE SHIVAM 10 DAY READER) 1 Each once every month. No current facility-administered medications for this visit. Allergies As of Date: 06/08/2023 Allergen Noted Reaction LATEX 11/26/2006 Itching PRINIVIL [LISINOPRIL] 07/23/2015 Cough ZANAFLEX [TIZANIDINE HCL] 06/05/2016 Shortness of Breath Fully Assessed 06/08/2023 REVIEW OF SYSTEMS SEE HPI. Expanded ROS: N/A Allergies and current medication updated:Yes EXAM: LMP 03/21/2005 GENERAL: pleasant, female in no apparent distress HEENT: Normocephalic, atraumatic, mucus membranes moist, and no lesions CHEST: Normal inspiratory effort NEURO: alert and oriented x3,exam grossly non-focal EXTREMITIES: normal ASSESSMENT/PLAN: 1. Dysuria - ICD9: 788.1, ICD10: R30.0 acute - UA positive for cheri esterase, hematuria, proteinuria, and nitrates - Send urine for culture - Begin treatment with Macrobid 100 mg BID for 7 days - Patient education for prevention given - URINE CULTURE Nerissa Hassan APRN.CNP Medical Decision Making: Problems: Low: Acute, uncomplicated illness or injury Data: Unique test(s) ordered: 2 Risk: Moderate: Drug management Medical Decision Making Level: 3 - Low documented in this encounter [facility] 06-05-2023 Miscellaneous Notes Wait until repeats done Patient notified and will be in to have her labs checked. She is scheduled to see Dr Griffin office in October. There are no other visits in [facility] with him since the one in . Can send labs to Dr Griffin office now or wait until repeat labs are completed? Her sodium is also low,likely from her lasix. Recheck bmp also Are we able to pull Dr Griffin last note from [facility] Recheck labs including ifobt. Pt called and is notified of providers results and questions. Pt states she hasn't had any bloody or black stools. She states she has been taking her iron pills. Pt states it has been a while since she has last seen Gastro, probably since April 2022. Mulu Soto, RN Most of her labs are pending. Her blood count has dropped again. Any gi issues, bloody or black stools. Last I saw her in October she was to follow up with GASTROENTEROLOGY. When did she see them last with her hx? documented in this encounter [facility] 06-03-2023 Miscellaneous Notes Patient aware she has fasting labs to be done and she is going to come in tomorrow 06-04-23 to get done. Swathi Garcia LPN Patient has been identified by name and date of : Yes, Provider Dr. tiwari Date 06/03/23 Time 2:28 pm Patient phones for refill(s): Requested Prescriptions Pending Prescriptions Disp Refills mupirocin (BACTROBAN) 2 % ointment 22 g 0 Sig: Apply to affected area three times a day. Date of last office visit in primary care: 05/21/2023 Date of next office visit in primary care: 06/22/2023 No call back needed. Thank you. Swathi Garcia LPN. documented in this encounter [facility] 03-31-2023 History of Present illness Narrative POPULATION HEALTH NAVIGATION OUTREACH Action/I Patient No Show for follow up appointment 03/30/2023 Call placed to patient to assist in rescheduling follow up No active MyChart Patient Identified by Name and : NO Outreach Outcome/Action Unable to reach patient: Left message Did you use a PCP flex slot to schedule this appointment? N/A Reason for Outreach Care Gap or Scheduling/Wellness visits Payer: Payor: [employer] MEDICARE / Plan: Pocketbook / Product Type: HMO / Care Gap Reviewed:: Follow-up appointment HBA1C Flu Vaccine Reminder: Reminder note to check Health Maintenance for items below Health Maintenance items due: BP Controlled (<130/80) Never done Urine Albumin:Creatinine Ratio due on 01/29/2022 HbA1C due on 11/20/2022 Influenza Vaccine(1) due on 12/26/2022 Covid-19 Vaccine( season) due on 12/26/2022 Navigation Signature: Kati Mcnamara MA March 31, 2023 10:04 AM documented in this encounter [facility] 03-17-2023 History of Present illness Narrative POPULATION HEALTH NAVIGATION OUTREACH Action/FYI Left message on machine to return call No active MyChart Patient Identified by Name and : NO Outreach Outcome/Action Unable to reach patient: Left message Did you use a PCP flex slot to schedule this appointment? N/A Reason for Outreach Care Gap or Scheduling/Wellness visits Payer: Payor: [employer] MEDICARE / Plan: [employer] GOLD PLUS / Product Type: HMO / Care Gap Reviewed:: Follow-up appointment HBA1C Flu Vaccine Reminder: Reminder note to check Health Maintenance for items below Health Maintenance items due: BP Controlled (<130/80) Never done Urine Albumin:Creatinine Ratio due on 01/29/2022 HbA1C due on 11/20/2022 Influenza Vaccine(1) due on 12/26/2022 Covid-19 Vaccine( season) due on 12/26/2022 Navigation Signature: Kati Mcnamara MA March 17, 2023 1:46 PM documented in this encounter [facility] 01-05-2023 History of Present illness Narrative POPULATION HEALTH NAVIGATION OUTREACH Action/FYI Return in about 6 weeks (around 11/15/2022). Patient Identified by Name and : NO Outreach Outcome/Action Unable to reach patient: Left message Did you use a PCP flex slot to schedule this appointment? N/A Reason for Outreach Care Gap or Scheduling/Wellness visits Payer: Payor: [employer] MEDICARE / Plan: [employer] GOLD PLUS / Product Type: HMO / Care Gap Reviewed:: Follow-up appointment HBA1C Flu Vaccine Reminder: Reminder note to check Health Maintenance for items below Health Maintenance items due: BP CONTROLLED (<130/80) Never done URINE ALBUMIN:CREATININE RATIO due on 01/29/2022 HBA1C due on 11/20/2022 INFLUENZA(1) due on 12/26/2022 Navigation Signature: Kati Mcnamara MA January 05, 2023 10:50 AM documented in this encounter [facility] 01-02-2023 Miscellaneous Notes [employer] has tried and will try again to contact patient. [employer] is no longer in network with her insurance. She has till the end of the month to get things switched over. Once they transfer her records over paperwork for our signature will be sent over for patient. I left a message explaining this to patient. Again this is the patient needing to talk to [employer] and they will help the patient get everything switched over. Pt uses [employer]. I have no idea. You would have to ask the patient. Julian Cortez PA-C We have been getting orders in the office for patients stating that [employer] capitatied patients have to switch companies for their oxygen suppliers. This office has been receiving forms from [facility] in [place]. This may be what is happening not that she needs approval for [employer]. Who is her current provider? She may be needing to switch due to insurance? Telephone on 01/01/23 OXYGEN FOR HOME USE Printed Julian Cortez PA-C Pt called in and reports she received a bill from [email or web address] that she has to pay $310 for her oxygen and supplies through [employer]. Pt states she needs provider to either send approval for oxygen and supplies to her insurance or let them and [employer] know she no longer needs oxygen anymore. Pt states she is not able to pay this bill. Please call and advise. documented in this encounter [facility] 12-17-2022 Miscellaneous Notes Patient phones requesting refills as follows: Requested Prescriptions Pending Prescriptions Disp Refills alcohol swabs (BD SINGLE USE SWABS REGULAR) 400 Each 0 Sig: For use with insulin injections 4 times daily KT: 10/04/22 NOV: None scheduled Last Refill: 07/07/22 #400 0 refills Ignacia Godoy LPN Patient has been identified by name and date of : Yes Last office visit in this department: 10/04/2022 RX INSTRUCTIONS: Patient askng for 90 day supply/ Patient aware RX will be sent to pharmacy. No need to notify patient. Patient phones requesting refills as follows: Requested Prescriptions Pending Prescriptions Disp Refills alcohol swabs (BD SINGLE USE SWABS REGULAR) 400 Each 0 Sig: For use with insulin injections 4 times daily Please review and advise. Arleen Philip Pss documented in this encounter [facility] 12-05-2022 Miscellaneous Notes Patient has been identified by name and date of : Yes Last office visit in this department: 10/04/2022 RX INSTRUCTIONS: Patient aware RX will be sent to pharmacy. No need to notify patient. Patient phones requesting refills as follows: Requested Prescriptions Pending Prescriptions Disp Refills budesonide-formoterol (SYMBICORT) 160-4.5 mcg/actuation inhaler 1 Each 5 Sig: Inhale 2 Puffs as instructed twice daily. SUMAtriptan (IMITREX) 50 mg tablet 9 tablet 11 Sig: Take 1 tablet by mouth as needed for migraine headache (see administration instructions). Please review and advise. Patty Eryn documented in this encounter [facility] 11-24-2022 Miscellaneous Notes Images from the original note were not included. Prior authorization approved Payer: [facility] [phone] PA Case: [id number], Status: Approved, Coverage Starts on: 04/27/2022 12:00:00 AM, Coverage Ends on: 04/26/2023 12:00:00 AM. Questions? Contact . Approval Details Authorization number: 0 Authorized from April 27, 2022 to April 26, 2023 Electronic appeal: Not supported View History Medication Being Authorized pantoprazole DR (PROTONIX) 40 mg tablet Take 1 tablet by mouth twice daily. Take on empty stomach, 1/2 hr before meal. Dispense: 60 tablet Refills: 11 Pharmacy notified. PA completed. Electronic PA requested. PRIOR AUTHORIZATION Medication for Prior Authorization: Pantoprazole 40 mg one tablet twice daily Other formulary meds available : NO Insurance Company: [employer] Insurance [place] phone number: [phone] Patient insurance ID number: [id number] Cortney Benavides LPN Patient said [facility] would not refill her rx, she had been on Prilosec before. documented in this encounter [facility] 11-06-2022 Miscellaneous Notes Patient has been identified by name and date of : Yes Last office visit in this department: 10/04/2022 RX INSTRUCTIONS: Patient aware RX will be sent to pharmacy. No need to notify patient. Patient phones requesting refills as follows: Requested Prescriptions Pending Prescriptions Disp Refills sucralfate (CARAFATE) 1 gram tablet 60 tablet 5 Sig: Take 1 tablet by mouth twice daily. SITagliptin-metFORMIN (JANUMET) 50-1,000 mg per tablet 180 tablet 3 Sig: Take 1 tablet by mouth twice daily with meals. Please review and advise. Ignacia George documented in this encounter [facility] 11-04-2022 Miscellaneous Notes Last office visit 10/04/2022 Next appointment scheduled 11/19/2022 Jesus Zepeda is calling Barak Tiwari MD today to request a medication that does not appear on med list: Sucralfate 1 mg taking one twice daily Please send to [facility] Patient has been identified by name and birthdate. Duration of symptoms: N/A Person calling: self Call patient at: on cell [phone] (home) [phone] (cell) Was an appointment scheduled: No Closing statement: Results or non-symptom based questions: Thank you for calling [facility], your call will be returned within the next business day. Karen Pop documented in this encounter [facility] 10-24-2022 History and physical note Note Date/Time October 24, 2022 1:13pm [facility] [address] [place], [place] [address]julio [place] [address] H&P Exam - Wound Care 10/24/22 1312 MR#: [id number] Acct: [id number] Name: LATIA ZEPEDAE MARGO Rep #:[id number] : 1965 56 From: Janny HAMM PCP: Dr. Barak Tiwari MD Status:REG R CR Location: History of Present Illness Date of Service: 10/24/22 Chief Complaint: RLE wound History of Wound: Patient is 56 y/o F who presents to the wound care center today for evaluation and management of a R lower leg wound. She has been previously seen by her PCP who prescribed antibiotics which she completed. She reports this wound has been present for a few months. She is not sure how it started or if any provoked it. It has been progressively getting larger in size though overall stable over the last few weeks. She has significant bilateral lower extremity edema. She has diagnosis of lymphedema. She does not wear compression, reports the wraps slip and no stockings fit her right. She has never used lymphedema pumps. I actually saw this patient in the vascular surgery clinic in May 2022 and ordered venous duplex, measured compression stockings, and advised referral to lymphedema clinic; she did not comply with than of these recommendations. She does not elevate her legs throughout the day. She sleeps in a chair. States her back problems prevent her from being able to lie flat. She reports she has had wounds similar to this in the past on her LLE but those typically heal on their own over a couple weeks. Her medical history is also significant for diabetes (reports last A1c was around 5), CHF, COPD. [facility] Medical History Abdominal pain Abnormal echocardiogram Anemia Anxiety Arthritis Asthma Bilateral lower extremity edema Cellulitis of left leg CHF (congestive heart failure) Cholelithiasis Chronic pulmonary embolism without acute cor pulmonale COPD (chronic obstructive pulmonary disease) COVID-19 virus infection (~01/2022) Depression Dietary restriction Easy bruising Epigastric pain Essential hypertension GERD (gastroesophageal reflux disease) GI bleed History of pain when walking Hyperlipidemia Hypothyroid Insulin dependent diabetes mellitus Leg cramps Low iron Migraines Morbid obesity with BMI of 40.0-44.9, adult Nausea Neuropathy Non-smoker Nontoxic multinodular goiter Obstructive lung disease (generalized) Postoperative primary hypothyroidism Pulmonary embolism Restless legs Shortness of breath on exertion Symptomatic anemia Thyroid cancer Type 2 diabetes mellitus Wears glasses Home Medications ferrous sulfate 325 mg (65 mg iron) tablet (FeroSul) 325 mg PO BID supplement 05/30/21 [History Last Taken 05/14/22] albuterol sulfate 90 mcg/actuation aerosol inhaler (Ventolin HFA) 2 puff inhalation Q6H PRN Shortness Of Breath 05/14/22 [History Last Taken 05/14/22] fluorometholone 0.1 % eye drops,suspension 1 drp EACH EYE DAILY PRN EYE INFLAMMATION 05/14/22 [History Last Taken 05/13/22] levothyroxine 200 mcg tablet 200 mcg PO MOTUWETHFRSA THYROID 05/14/22 [History Last Taken 05/14/22] sitagliptin phosphate 50 mg-metformin 1,000 mg tablet (Janumet) 1 tab PO BIDCM BLOOD SUGARS 05/14/22 [History Last Taken 05/14/22] sucralfate 1 gram tablet (Carafate) 1 g PO BID GERD 05/14/22 [History Last Taken 05/14/22] sumatriptan succinate 50 mg tablet 50 mg PO DAILY PRN Migraine Headache 05/14/22[History Last Taken 05/13/22] furosemide 40 mg tablet (Lasix) 40 mg PO DAILY 30 days #30 tabs 05/16/22 [Rx Last Taken Unknown] ascorbic acid (vitamin C) 500 mg capsule,extended release (Vitamin C) 500 mg PO DAILY SUPPLEMENT 07/17/22 [History Last Taken Unknown] budesonide-formoterol HFA 160 mcg-4.5 mcg/actuation aerosol inhaler (Symbicort) 2 puff inhalation BID 07/17/22 [History Last Taken Unknown] levothyroxine 200 mcg capsule 100 mcg PO .QSun 07/17/22 [History Last Taken Unknown] nystatin-triamcinolone 100,000 unit/gram-0.1 % topical ointment 1 applic topicalBID 07/17/22 [History Last Taken Unknown] atorvastatin 20 mg tablet 20 mg PO DAILY 07/22/22 [History Last Taken Unknown] carvedilol 25 mg tablet 25 mg PO BID #180 tabs 10/08/22 [Rx Last Taken Unknown] valsartan 160 mg tablet 160 mg PO DAILY #90 tabs 10/08/22 [Rx Last Taken Unknown] Allergy/AdvReac Type Severity Reaction Status Date / Time tizanidine [From [facility]] Allergy Severe Shortness Verified 10/07/22 11:11 of breath latex Allergy Rash Verified 10/07/22 11:11 lisinopril AdvReac Other Verified 10/07/22 11:11 Family History Aunt Breast cancer metastatic to bone Father Diabetes Hypertension Heart disease Myocardial infarction Mother Diabetes Hypertension Heart murmur Thyroid disorder Brother Diabetes Hypertension Grandmother Pneumothorax Surgical History History of carpal tunnel release (~2015) History of esophagogastroduodenoscopy (EGD) History of laparoscopic cholecystectomy (~11/15/19) Hx of bilateral cataract extraction (~2015) Hx of tubal ligation S/P partial thyroidectomy (~2018) S/P partial thyroidectomy (~2006) Social History Smoking Status: Never smoker second hand exposure: Yes alcohol intake: never substance use type: does not use caffeine: No Physical Exam Const alert, oriented x3 and no apparent distress General Appearance: cooperative and comfortable HEENT normocephalic, head/scalp atraumatic, hearing grossly normal bilaterally, external ears normal and external nose normal Eyes EOMs intact bilaterally General Eye: normal appearance of both eyes Resp normal respiratory effort, no retractions and no use of accessory muscles Effort and Inspection: able to speak in complete sentences Cardio Rate: regular rate Rhythm: regular rhythm Extremity Extremity Narrative: Significant nonpitting edema of the bilateral lower extremities. Palpable pedal pulses bilaterally, normal capillary refill. Skin Wounds: wounds noted Wound Narrative: Large, superficial, irregularly shaped wound to the lateral aspect of the right lower leg. Mild surrounding erythema, no foul odor, purulent drainage, fluctuance, or induration. Neuro oriented x3, CN's II-XII intact bilaterally, moves all extremities and no focal motor deficits Speech: speech normal Psych mental status grossly normal, cooperative, speech normal and activity/motor behavior normal Debridement Note Debridement Note Wound debrided: R lower leg Laterality: Right Type of Debridement: Excisional debridement Anesthesia Used: Cetacaine Depth: Down to and including healthy tissue and in the subcutaneous layer Percentage of wound debrided: 100 Instrument Used: 5mm curette Tissue Removed: slough, devitalized tissue Severity: Limited To Skin Breakdown Amount of bleeding with debridement: Mild Bleeding Controlled with: Pressure Patient tolerated procedure: Patient tolerated procedure well Post-Debridement Measurements and Additional Note: Post-Debridement Measurements/Treatment WC - Nurse 1 - General Ulcer Assessment Start: 10/24/22 09:45 Freq: Status: Active Protocol: MARÍA Activity Type Activity Date Activity User E-sign Co-sign Detail Recorded Client Recorded Date Recorded By Document 10/24/22 09:46 LUCIANA [id number] 10/24/22 09:56 LUCIANA 10/24/22 09:46 WC - Today's Visit Information Type of service Initial Visit Arrival Mode Ambulatory Patient Identification Verified (Name & Yes ) Patient Requires Transmission-Based No Precautions Pain Scale: 0-10 Numeric Is Patient Pain Free? Yes SHALINI - Nurse 1 - General Ulcer Measurement Start: 10/24/22 09:45 Freq: Status: Active Protocol: Activity Type Activity Date Activity User E-sign Co-sign Detail Recorded Client Recorded Date Recorded By Document 10/24/22 09:46 LUCIANA [id number] 10/24/22 09:56 LUCIANA 10/24/22 09:46 Wound Center Nurse 1 #1 R lateral Le -Current Size (cm) - Length 7 -Current Size (cm) - Width 5.5 -Current Size (cm) - Depth 0.1 -Total Square Cm 38.5 -Photo Taken Yes -Tunneling No -Undermining/Tunneling No -Circular Undermining No -Change in Wound Grade/Stage No -Exudate Amt Medium -Exudate Type Serosanguineous -Wound Margin Distinct, Outline Attached -Granulation Amt Large (67-100%) -Granulation Quality [place],Red -Slough/Fibrin Yes -Necrosis Amt Small (1-33%) -Necrotic Tissue Type Adherent Slough -Structure Exposed N/A -Texture (Emily-wound Skin Appearance) Assessed, Localized Edema -Moisture (Emily-wound Skin Appearance) Assessed, Weeping -Color (Emily-wound Skin Appearance) Assessed, Erythema -Temperature (Emily-wound Skin No Abnormality Appearance) (Pt Warm) -Tenderness on Palpation (Emily-wound No Skin Appearance) -Ulcer Cleansing Rinsed/ Irrigated with Saline -Foul Odor after Cleansing No -Anesthetic Used 4% Lidocaine Solution Right Calf (cm) 60 Right Ankle (cm) 33 Left Calf (cm) 60 Left Ankle (cm) 31 WC - Nurse 2 - General Ulcer CM Notes Start: 10/24/22 09:45 Freq: Status: Active Protocol: Activity Type Activity Date Activity User E-sign Co-sign Detail Recorded Client Recorded Date Recorded By Document 10/24/22 12:36 PL [id number] 10/24/22 12:37 PL 10/24/22 12:36 Wound Center Nurse 2 #1 R lateral Le -Time 10:01 -Correct Patient Yes -Correct Side, Site, Position Yes -Correct Procedure Yes -Procedure Performed Yes -Type of Procedure Debridement -Clinical Debridement Subcutaneous -Tissue Removed Subcutaneous -Post Debridement (cm) - Length 6.2 -Post Debridement (cm) - Width 5.9 -Post Debridement (cm) - Depth 0.1 -Total Square (Post) (cm) 36.58 -Area of Debridement (cm) - Length 6.2 -Area of Debridement (cm) - Width 5.9 -Total Square (Area) (cm) 36.58 -Tunneling No -Undermining/Tunneling No -Circular Undermining No -Wound/Ulcer Outcome Not Healed -Ulcer Cleansing Rinsed/ Irrigated with Saline -Foul Odor after Cleansing No -Bioengineered Tissue No -Bleeding Controlled with Pressure -Treatment Response Procedure Tolerated Well -Debridement - Subq, 1st 20sq cm Yes -Debridement, SubQ, ea addt'l 20sq cm 1 or part thereof Pain Scale: 0-10 Numeric Is Patient Pain Free? Yes Charges/Coding Visit Charges Office Visits / Consults: 34550 OV L3 New Procedures Integumentary 111xxx-113xx: 31177 Keri subq tissue 20 sq cm/< Assessment/Plan Assessment/Plan (1) Ulcer of left lower leg: CODE(S): L97.929 - Non-pressure chronic ulcer of unspecified part of left lower leg with unspecified severity QUALIFIERS: Non-pressure ulcer stage: limited to breakdown of skin Qualified Code(s): L97.921 - Non-pressure chronic ulcer of unspecified part of left lower leg limited to breakdown of skin PLAN: Plan Patient's wound appears to be secondary to bilateral lower extremity edema. Appearance of her BLE edema is consistent with lymphedema in addition to generalbody habitus. Will apply fibracol to wound bed and then apply Unna boot for compression. No signs/symptoms concerning for infection so no cultures obtained. Palpable pedal pulse and normal capillary refill. Low suspicion for arterial compromise. May consider venous studies in the future if continued delayed healing with compression. Patient would benefit from referral to lymphedema clinic and likely from lymphedema pumps. Encouraged her to elevate legs whenever possible and as much as tolerated. When in reclined be sure to have feet up, especially while sleeping. Continue with good glycemic control. Increase protein in the diet. Return to clinic for nurse visit next thursday and to see me next Thursday. 10/24/22 1330 <Electronically signed by Janny HAMM> Cosigner Signature (if applicable): CC: ~ Signed [facility] Work Phone: 1(977) 573-314106-30-2023 Miscellaneous Notes* Telephone Encounter - Jaquan Mar RN - 10/24/2022 1:22 PM EDT Patient having diarrhea episodes for 3 days. Protocol recommends home care. Patient agreeable and will call back with any questions or concerns. Reason for Disposition MILD-MODERATE diarrhea (e.g., 1-6 times / day more than normal) Answer Assessment - Initial Assessment Questions 1. DIARRHEA SEVERITY: Last 24 hours has had 3 diarrhea stools. 2. ONSET: 3 days ago 3. BM CONSISTENCY: Stool is a little formed sometimes liquid. 4. VOMITING: No 5. ABDOMINAL PAIN: No 6. ABDOMINAL PAIN SEVERITY: None 7. ORAL INTAKE: Drinking mostly water. Drank 3 glasses in last 24 hours. 8. HYDRATION: No dry mouth, no weakness, no dizziness. Last urinated about 1.2 hour ago. 9. EXPOSURE: No travel. No exposure to anyone with diarrhea. No spoiled food. 10. ANTIBIOTIC USE: No AB's 11. OTHER SYMPTOMS: No fever. No blood in stools. Stools are black for a couple days- not all of them are black- but is taking iron. Has been using pepto bismol. Has not eaten today- eats soup and mild foods. 12. : No Protocols used: [id number] [facility] Miscellaneous Notes* Telephone Encounter - Becka Alejandra Ma - 10/20/2022 11:29 AM EDT Pt called and notified, verbalized understanding. Becka Alejandra Ma * Telephone Encounter - Becka Alejandra Ma - 10/20/2022 11:27 AM EDT ----- Message from Jaquan Latif PA-C sent at 10/19/2022 11:51 AM EDT ----- Please call and advise patient mammogram was WNL. It should re repeated in 1 year for screening. Thanks, Riccardo Latif PA-C [facility] in [facility] Miscellaneous Notes* Letter - Mammography Coordinator - 10/16/2022 3:48 PM EDT October 17, 2022 PID: [id number] Jesus Zepeda [address] [place] [address] Dear Ms. Zepeda, We are pleased to inform you that the results of your recent breast imaging exam on 10/15/2022 are normal. Early detection of cancer is very important. We also understand recommendations regarding breast cancer screening are controversial. Please discuss with your primary care provider which strategy is best for you and whether a mammogram is right for you. Your imaging studies and report will be kept on file at [facility] as part of your permanent medical record and are available for your continuing care. Thank you for allowing us to help in meeting your health care needs. Sincerely, Dr. Lincoln Interpreting Radiologist [facility] (Normal over 40) documented in this encounterC[facility]06-[facility]-2023 History of Present illness Narrative* Lindsay Duran, RT(R) - 10/15/2022 10:10 AM EDT Radiology Service Progress Note PATIENT NAME: Jesus Zepeda DATE OF SERVICE: October 15, 2022 TIME: 10:14 AM PATIENT IDENTITY VERIFICATION COMPLETED USING TWO (2) IDENTIFIERS: Name and Date of confirmedby patient verbally. FALL SCREENING: Has the patient had 2 falls in the last year or 1 fall with injury or currently using an Ambulatory Assistive Device (Walker, Cane, Wheelchair, Crutches, etc.)? No PATIENT GENDER DATA: Female. status: : No status: NO. PATIENT RELEVANT IMPLANT DATA REVIEWED: Not Applicable RADIOLOGY DEPARTMENT: Mammography PERIPHERAL IV DATA: Not applicable SIGNED BY: RT Marcelle(R) October 15, 2022 10:14 AM documented in this encounterC[facility]06[facility]23 Miscellaneous Notes* Telephone Encounter - Swathi Garcia LPN - 10/08/2022 3:04 PM EDT Spoke with pt and information listed below given. Pt verbalizes understanding. Swathi Garcia LPN * Telephone Encounter - Barak Tiwari MD - 10/08/2022 3:00 PM EDT Changes noted. She should not be on both losartan or valsartan. Ok for the valsartan. We took her off amlodipine a while ago * Telephone Encounter - Radha Champion RN - 10/08/2022 2:29 PM EDT Patient calling to let PCP know Dr. Eilzondo ([facility]) increased her Carvedilol to 25 mg twice daily and Valsartan to 160 mg once daily. She states she has been taking Valsartan 80 mg daily.She also still has a pill bottle of Amlodipine 10 mg which she says she has not been taking. I advised her it looks like Amlodipine has been discontinued. She says she has not been taking Losartan 100 mg daily for the last month because she did not know what it is for. She is asking if she is to be taking both Losartan and Valsartan? She says she will call Dr. Elizondo's office regarding this. Radha M Lentine, RN documented in this encounterCleveland Clinic Foundation06-07-2023 Miscellaneous Notes* Telephone Encounter - Cortney Benavides LPN - 10/01/2022 9:36 AM EDT Patient returned call and went over results, notes from Dr Tiwari with understanding. * Telephone Encounter - Mulu Soto RN - 10/01/2022 8:38 AM EDT Called and left a voicemail for the Patient to call back and ask for a nurse to receive the providers message. Mulu Soto RN * Telephone Encounter - Barak Tiwari MD - 10/01/2022 8:04 AM EDT Let her know her labs are improving. Anemia is finally starting to improve documented in this encounterCleveland Clinic Foundation06-02-2023 Miscellaneous Notes* Telephone Encounter - Nicol Patrick Ma - 09/26/2022 1:07 PM EDT Detailed message left for pt that letter is in medical records * Telephone Encounter - Barak Tiwari MD - 09/25/2022 5:15 PM EDT Printed. 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 Please advise documented in this encounterCleveland Clinic Foundation05-30-2023 Miscellaneous Notes* Telephone Encounter - Ignacia Godoy LPN - 09/23/2022 12:28 PM EDT Patient phones requesting refills as follows: Requested Prescriptions Pending Prescriptions Disp Refills omeprazole (PRILOSEC) 40 mg capsule 90 capsule 3 Sig: Take 1 capsule by mouth once daily. Pt is not due for a refill, last refill was 09/15/22 & was for 90 tabs with 3 refills. Left message to call office. 09/23/2022 12:32 PM Ignacia Godoy LPN * Telephone Encounter - Miryam Muller - 09/23/2022 11:27 AM EDT Patient has been identified by name and date of : Yes Requested Prescriptions Pending Prescriptions Disp Refills omeprazole (PRILOSEC) 40 mg capsule 90 capsule 3 Sig: Take 1 capsule by mouth once daily. RX INSTRUCTIONS: Patient aware RX will be sent to pharmacy. No need to notify patient. Miryam Muller documented in this encounterCleveland Clinic Foundation05-08-2023 History of Present illness Narrative* Barak Tiwari MD - 09/01/2022 2:00 PM EDT Patient presents with: Follow Up: Recheck legs HPI: Patient presents today for office visit for follow up. Recheck from being here on Thursday. Taking Doxy and increased her lasix. Using lotion on the sore spot she has on her right ankle. Asking about doxy maybe raising her glucose some? Yesterday had a 209 but has come back down to normal readings 95-119. Wearing her oxygen as ordered. No current drainage. No red streaks or fever or chills. Has repeat labs are ordered. MEDICATIONS: Current Outpatient Medications Medication Sig furosemide (LASIX) 20 mg tablet Take 0.5 tablets by mouth once daily. doxycycline monohydrate 100 mg tablet Take 1 tablet by mouth twice daily for 10 days. mupirocin (BACTROBAN) 2 % ointment Apply to affected area three times daily. alcohol swabs (BD SINGLE USE SWABS REGULAR) For use with insulin injections 4 times daily budesonide-formoterol (SYMBICORT) 160-4.5 mcg/actuation inhaler Inhale 2 Puffs as instructed twice daily. nystatin-triamcinolone (MYCOLOG) ointment Apply sparingly to skin twice daily for irritation/infection. atorvastatin (LIPITOR) 20 mg tablet Take 1 tablet by mouth once daily. For cholesterol. ferrous sulfate 325 mg (65 mg iron) tablet Take 1 tablet by mouth twice daily with meals. levothyroxine (SYNTHROID) 200 mcg tablet Take 1 tablet by mouth once daily. Thursday through Thursday, 1/2 tab on Thursday omeprazole (PRILOSEC) 40 mg capsule Take 1 capsule by mouth once daily. albuterol HFA (PROVENTIL HFA, VENTOLIN HFA) 90 mcg/actuation inhaler Inhale 2 Puffs as instructed every 6 hours as needed. C-500 500 mg tablet Take 1 tablet by mouth once daily. sucralfate (CARAFATE) 1 gram tablet Take 1 tablet by mouth twice daily. Lancets lancets Test blood sugar(s) 4 times daily. Dx: Type 2 DM - Controlled E11.9 Insulin: Yes blood sugar diagnostic (BLOOD GLUCOSE TEST) test strip Test blood sugar(s) 4 times daily. Dx: Type 2 DM - Controlled E11.9 Insulin: Yes fluorometholone (FML LIQUID FILM) 0.1 % ophthalmic suspension INSTILL 1 DROP IN BOTH EYES 1-2 TIMESPER DAY carvedilol (COREG) 12.5 mg tablet Take 1 tablet by mouth twice daily. losartan (COZAAR) 100 mg tablet Take 1 tablet by mouth once daily. ferrous sulfate 325 mg (65 mg iron) tablet Take 1 tablet by mouth twice daily with meals. SITagliptin-metFORMIN (JANUMET) 50-1,000 mg per tablet Take 1 tablet by mouth twice daily with meals. escitalopram oxalate (LEXAPRO) 10 mg tablet One pill by mouth daily. SUMAtriptan (IMITREX) 50 mg tablet Take 1 tablet by mouth as needed for migraine headache (see administration instructions). insulin needles, DISPOSABLE, (PEN NEEDLE) 31 gauge x 5/16 Use one needle per dose. 4 per day. Insulin [place], Disposable, (UNIFINE PENTIPS) 31 gauge x 04/30 ndle use 1 (ONE) new needle with each dose, FOUR per day. loratadine (CLARITIN) 10 mg tablet Take 1 tablet by mouth once daily. hydrocortisone (PROCTOCORT) 1 % cream Apply to affected area twice daily. blood sugar diagnostic (BLOOD GLUCOSE TEST) test strip Test blood sugar(s) 4 times daily. Dx: Type 2 DM - Controlled E11.9 Insulin: Yes flash glucose scanning reader (IN[employer] TechnologiesSTYLE SHIVAM 10 DAY READER) 1 Each once every month. Current Facility-Administered Medications Medication Dose Route Frequency perflutren lipid microspheres 1.3 mL in NaCl (PF) 0.9% 10 mL injection (DEFINITY) INTRAVENOUS DIRECTED PRN sodium chloride 0.9 % (flush) 10 mL (BD POSIFLUSH) 10 mL INTRAVENOUS DIRECTED PRN ALLERGIES: ALLERGIES Allergen Reactions Latex Itching Prinivil [Lisinopri* Cough Zanaflex [Tizanidin* Shortness of Breath PAST MEDICAL HISTORY Diagnosis Date Adjustment disorder with depressed mood Chronic hypoxemic respiratory failure (HCC) Esophageal reflux Essential hypertension, benign Generalized anxiety disorder GI bleed HLD (hyperlipidemia) Menorrhagia Migraine without aura Morbid obesity (HCC) Nonspecific abnormal results of other endocrine function study 06/2004 Benign biopsy. Abnormally high thyroid globulin HARMONY (obstructive sleep apnea) Pulmonary emboli (HCC) 09/2013 Bilateral on CTA chest. Scleritis Type II or unspecified type diabetes mellitus without mention of complication, not stated as uncontrolled PAST SURGICAL HISTORY Procedure Laterality Date CARPAL TUNNEL Right 12/10 CHOLECYSTECTOMY 11/15/2019 Dr. Ferguson EGD 03/07/2020 Dr Ferguson LIG/TRNSXJ FLP TUBE ABDL/VAG APPR UNI/BI 1988 THYROID BIOPSY US 11/2015 THYROIDECTOMY TOTAL/COMPLETE Left 12/13/2018 Dr Ferguson TOTAL THYROID LOBECTOMY UNI W/WO ISTHMUSECTOMY 01/15/07 right XCAPSL CTRC RMVL INSJ IO LENS PROSTH W/O ECP Right 06/2015 Cataract Extraction with PC IOL XCAPSL CTRC RMVL INSJ IO LENS PROSTH W/O ECP Left 07/2015 Cataract Extraction with PC IOL FAMILY HISTORY Problem Relation Age of Onset Hypertension Mother Diabetes Mother Thyroid Mother thyroidectomy Heart Mother murmur Heart Father of [place] Diabetes Brother Hypertension Brother No Known Problems Brother other (Other) Maternal Grandmother Pneumothorax Breast Cancer Maternal Aunt Metastatic to bone other (Other) Other No DVT or PE. No Known Problems Son No Known Problems Daughter Social History Tobacco Use Smoking status: Never Smokeless tobacco: Never Tobacco comments: FAther smoking in childhood home. Has lived with smoker in home, son quit about 2016. Vaping Use Vaping Use: Never used Substance Use Topics Alcohol use: No Drug use: No Reviewed current medications, allergies, past medical history, surgical history, family history andsocial history today. REVIEW OF SYSTEMS Needs letter for home air conditioner All other reviewed and negative other than HPI. VITALS: BP 132/68 Pulse 63 Wt 108.4 kg (239 lb) LMP 03/21/2005 SpO2 93% BMI 45.91 kg/m Last 4 Encounter Wt Readings: Date: Wt: 08/30/2022 108.4 kg (239 lb) 08/18/2022 112 kg (247 lb) 07/18/2022 109.3 kg (241 lb) 06/20/2022 106.1 kg (234 lb) PHYSICAL EXAMINATION: General appearance: Well appearing, alert, in no acute distress, well-hydrated, well nourished. Skin: less redness. No warmth. No tender. Open area is dry Neck: Supple, no adenopathy; thyroid symmetric, normal size, no bruits. Chronic edema is unchanged. ASSESSMENT/PLAN: 1. Cellulitis of skin - ICD9: 682.9, ICD10: L03.90 (primary diagnosis) - continue antibiotics. Is improving. Red flags for re-assessment reviewed with patient in detail. - follow up when I am back in town. Call sooner to my coverage if worsens. 2. Lymphedema - ICD9: 457.1, ICD10: I89.0 - stable. 3. Venous stasis dermatitis of both lower extremities - ICD9: 454.1, ICD10: I87.2 - stable. Barak Tiwari MD documented in this encounterCleveland Clinic Foundation05-06-2023 Instructions* Patient Instructions* Barak Tiwari MD - 08/30/2022 10:52 AM EDT Take 20 mg, full pill, of lasix a day for three days then resume the previous dose. Start antibiotic Use cream on the open area. Elevate your legs over the weekend. Call if any worsening swelling. Redness or warmth or pain. Follow up next week. documented in this encounterCleveland Clinic Foundation05-06-2023 History of Present illness Narrative* Barak Tiwari MD - 08/30/2022 10:44 AM EDT Patient presents with: Acute Visit: swelling and seeping of bilat legs HPI: Patient presents today for office visit for acute visit. Has chronic lymphedema. Has even seen vascular/lyphedema clinic. Swelling comes and goes. Is actually better today. Concerned because has been seeping and skin is sore. No fever or chills. Has had numerous duplexes No chest pain or worsening shortness of breath. No fever or chills. Have chronic redness but skin is slightly more red and warm. Just saw cardiology. We had decreased her lasix recently for hyponatremia. Her last hb was slightly better. She is on iron. She did finally set her follow up with gi. Will follow cbc. If continues to be down with iron, may need also to consider hematology. MEDICATIONS: Current Outpatient Medications Medication Sig furosemide (LASIX) 20 mg tablet Take 1 tablet by mouth once daily. (Patient taking differently: Take 20 mg by mouth once daily. Taking 10mg daily.) alcohol swabs (BD SINGLE USE SWABS REGULAR) For use with insulin injections 4 times daily budesonide-formoterol (SYMBICORT) 160-4.5 mcg/actuation inhaler Inhale 2 Puffs as instructed twice daily. nystatin-triamcinolone (MYCOLOG) ointment Apply sparingly to skin twice daily for irritation/infection. atorvastatin (LIPITOR) 20 mg tablet Take 1 tablet by mouth once daily. For cholesterol. levothyroxine (SYNTHROID) 200 mcg tablet Take 1 tablet by mouth once daily. Thursday through Thursday, 1/2 tab on Thursday omeprazole (PRILOSEC) 40 mg capsule Take 1 capsule by mouth once daily. albuterol HFA (PROVENTIL HFA, VENTOLIN HFA) 90 mcg/actuation inhaler Inhale 2 Puffs as instructed every 6 hours as needed. C-500 500 mg tablet Take 1 tablet by mouth once daily. sucralfate (CARAFATE) 1 gram tablet Take 1 tablet by mouth twice daily. Lancets lancets Test blood sugar(s) 4 times daily. Dx: Type 2 DM - Controlled E11.9 Insulin: Yes blood sugar diagnostic (BLOOD GLUCOSE TEST) test strip Test blood sugar(s) 4 times daily. Dx: Type 2 DM - Controlled E11.9 Insulin: Yes fluorometholone (FML LIQUID FILM) 0.1 % ophthalmic suspension INSTILL 1 DROP IN BOTH EYES 1-2 TIMESPER DAY losartan (COZAAR) 100 mg tablet Take 1 tablet by mouth once daily. ferrous sulfate 325 mg (65 mg iron) tablet Take 1 tablet by mouth twice daily with meals. SITagliptin-metFORMIN (JANUMET) 50-1,000 mg per tablet Take 1 tablet by mouth twice daily with meals. escitalopram oxalate (LEXAPRO) 10 mg tablet One pill by mouth daily. SUMAtriptan (IMITREX) 50 mg tablet Take 1 tablet by mouth as needed for migraine headache (see administration instructions). insulin needles, DISPOSABLE, (PEN NEEDLE) 31 gauge x 5/16 Use one needle per dose. 4 per day. Insulin [place], Disposable, (UNIFINE PENTIPS) 31 gauge x 1/4 ndle use 1 (ONE) new needle with each dose, FOUR per day. loratadine (CLARITIN) 10 mg tablet Take 1 tablet by mouth once daily. hydrocortisone (PROCTOCORT) 1 % cream Apply to affected area twice daily. blood sugar diagnostic (BLOOD GLUCOSE TEST) test strip Test blood sugar(s) 4 times daily. Dx: Type 2 DM - Controlled E11.9 Insulin: Yes flash glucose scanning reader (FREESTYLE SHIVAM 10 DAY READER) 1 Each once every month. ferrous sulfate 325 mg (65 mg iron) tablet Take 1 tablet by mouth twice daily with meals. carvedilol (COREG) 12.5 mg tablet Take 1 tablet by mouth twice daily. Current Facility-Administered Medications Medication Dose Route Frequency perflutren lipid microspheres 1.3 mL in NaCl (PF) 0.9% 10 mL injection (DEFINITY) INTRAVENOUS DIRECTED PRN sodium chloride 0.9 % (flush) 10 mL (BD POSIFLUSH) 10 mL INTRAVENOUS DIRECTED PRN ALLERGIES: ALLERGIES Allergen Reactions Latex Itching Prinivil [Lisinopri* Cough Zanaflex [Tizanidin* Shortness of Breath PAST MEDICAL HISTORY Diagnosis Date Adjustment disorder with depressed mood Chronic hypoxemic respiratory failure (HCC) Esophageal reflux Essential hypertension, benign Generalized anxiety disorder GI bleed HLD (hyperlipidemia) Menorrhagia Migraine without aura Morbid obesity (HCC) Nonspecific abnormal results of other endocrine function study 06/2004 Benign biopsy. Abnormally high thyroid globulin HARMONY (obstructive sleep apnea) Pulmonary emboli (HCC) 09/2013 Bilateral on CTA chest. Scleritis Type II or unspecified type diabetes mellitus without mention of complication, not stated as uncontrolled PAST SURGICAL HISTORY Procedure Laterality Date CARPAL TUNNEL Right 12/10 CHOLECYSTECTOMY 11/15/2019 Dr. Ferguson EGD 03/07/2020 Dr Ferguson LIG/TRNSXJ FLP TUBE ABDL/VAG APPR /BI 1988 THYROID BIOPSY US 11/2015 THYROIDECTOMY TOTAL/COMPLETE Left 12/13/2018 Dr Ferguson TOTAL THYROID LOBECTOMY UNI W/WO ISTHMUSECTOMY 01/15/07 right XCAPSL CTRC RMVL INSJ IO LENS PROSTH W/O ECP Right 06/2015 Cataract Extraction with PC IOL XCAPSL CTRC RMVL INSJ IO LENS PROSTH W/O ECP Left 07/2015 Cataract Extraction with PC IOL FAMILY HISTORY Problem Relation Age of Onset Hypertension Mother Diabetes Mother Thyroid Mother thyroidectomy Heart Mother murmur Heart Father of [place] Diabetes Brother Hypertension Brother No Known Problems Brother other (Other) Maternal Grandmother Pneumothorax Breast Cancer Maternal Aunt Metastatic to bone other (Other) Other No DVT or PE. No Known Problems Son No Known Problems Daughter Social History Tobacco Use Smoking status: Never Smokeless tobacco: Never Tobacco comments: FAther smoking in childhood home. Has lived with smoker in home, son quit about 2015. Vaping Use Vaping Use: Never used Substance Use Topics Alcohol use: No Drug use: No Reviewed current medications, allergies, past medical history, surgical history, family history andsocial history today. REVIEW OF SYSTEMS All other reviewed and negative other than HPI. VITALS: BP 128/58 Pulse 63 Resp 16 Wt 108.4 kg (239 lb) LMP 03/21/2005 SpO2 93% BMI 45.91 kg/m Last 4 Encounter Wt Readings: Date: Wt: 08/30/2022 108.4 kg (239 lb) 08/18/2022 112 kg (247 lb) 07/18/2022 109.3 kg (241 lb) 06/20/2022 106.1 kg (234 lb) PHYSICAL EXAMINATION: General appearance: Well appearing, alert, in no acute distress, well-hydrated, well nourished. Skin: Skin color, texture, turgor normal, no suspicious rashes or lesions Lungs: decreased breath sounds but Lungs clear to auscultation. No wheezing, rhonchi, rales Heart: RRR without murmur, gallop, or rubs. No ectopy Abdomen: Normal abdominal exam, Abdomen soft, non-tender. Bowel sounds normal. No masses, organomegaly Extremities: chronic lymphedema similar to previous. Has an area on right side that shows a linear area of abrasion that is draining slightly. Chronic redness that is slightly worse around it and warm. No new calf tenderness. Neg jayns ASSESSMENT/PLAN: 1. Lymphedema - ICD9: 457.1, ICD10: I89.0 (primary diagnosis) - increase lasix to 20 mg a day for three days. Elevate legs. Red flags for re-assessment reviewed with patient in detail. 2. Congestive heart failure, unspecified HF chronicity, unspecified heart failure type (HCC) - ICD9: 428.0, ICD10: I50.9 - as above. - FUROSEMIDE 20 MG TABLET 3. Cellulitis of skin - ICD9: 682.9, ICD10: L03.90 - as above. Discussed risks and benefits of new medication with the patient. Advised them to call if any side effects or questions. - Red flags for re-assessment reviewed with patient in detail. - follow up early next week. - DOXYCYCLINE MONOHYDRATE 100 MG TABLET - MUPIROCIN 2 % TOPICAL OINTMENT 4. Venous stasis dermatitis of both lower extremities - ICD9: 454.1, ICD10: I87.2 - as above. Work on weight loss. 5. Anemia, unspecified type - ICD9: 285.9, ICD10: D64.9 - follow labs. May consider hematology as well as gi. - CBC + DIFF 6. Hyponatremia - ICD9: 276.1, ICD10: E87.1 - BASIC METABOLIC PNL Barak Tiwari MD documented in this encounterCleveland Clinic Foundation05-03-2023 History of Present illness Narrative* Shantel Cuba - 08/27/2022 9:42 AM EDT POPULATION HEALTH NAVIGATION OUTREACH Action/FYI Spoke to patient has eye appt scheduled for 09/2022 will have them send copy to PCP Patientwill schedule her own mammogram Aware of labs ordered Patient Identified by Name and : YES, via phone Outreach Outcome/Action Spoke to patient / parent / legal guardian: No action required (information or reminder only) Did you use a PCP flex slot to schedule this appointment? N/A Reason for Outreach Care Gap or Scheduling/Wellness visits Payer: Payor: [employer] MEDICARE / Plan: Pocketbook / Product Type: HMO / Care Gap Reviewed:: Diabetic Eye Exam Reminder: Reminder note to check Health Maintenance for items below Health Maintenance items due: HIV SCREENING Never done BP CONTROLLED (<130/80) Never done DILATED RETINAL EXAM due on 10/02/2021 URINE ALBUMIN:CREATININE RATIO due on 01/29/2022 DIABETIC FOOT EXAM due on 03/27/2022 MAMMOGRAM due on 07/12/2022 Navigation Signature: Shantel Cuba August 27, 2022 9:43 AM documented in this encounterCleveland Clinic Foundation04-25-2023 Miscellaneous Notes* Telephone Encounter - Jaquan Mar RN - 08/19/2022 12:54 PM EDT Patient phoned to let pcp know she scheduled appt with Dr. De La Fuente at [facility], for 11-21-22. States that was the soonest they could get her in. Patient declined offer to schedule appt with [facility]. documented in this encounterCleveland Clinic Foundation04-24-2023 Miscellaneous Notes* Telephone Encounter - Ignacia Godoy LPN - 08/18/2022 4:58 PM EDT Pt notified of results & voiced understanding. Pt states she will call tomorrow to schedule with gastro. Ignacia Godoy LPN * Telephone Encounter - Nicol Patrick Ma - 08/18/2022 4:37 PM EDT Left message for patient to return call. Nicol Patrick Ma * Telephone Encounter - Barak Tiwari MD - 08/18/2022 4:15 PM EDT Let her know her labs are stable. Again, needs to follow with gi. documented in this encounterCleveland Clinic Foundation04-24-2023 History of Present illness Narrative* Patty Mccloud PA-C - 08/18/2022 2:12 PM EDT Patient: Jesus Zepeda PCP: Barak Tiwari MD CC: SOB HPI: Jesus Zepeda 56 year old morbidly obese female never smoker with PMH significant for GERD, HTN, anxiety, HLD, migraine headaches, DM2, lymphedema, GI bleed, history of pulmonary embolism 2013, HARMONY unable to tolerate CPAP, chronic hypoxemic respiratory failure (discharged on oxygen 04/2022). Initially seen by Dr. Moses in 2017 for chest pain. At that time, CTA chest did not document PE, however, patient was started on anticoagulant based on history of prior PE (completed 6 months of Xarelto) and risk. VQ scan obtained which demonstrated low probability of PE. At that time, it was recommended to discontinue Xarelto. She was most recently referred to our office in May for COPD and hypoxemia. Patient had been admitted to [facility] for lymphedema and SOB. She was discovered to be anemic with hemoglobin of 6.5. EGD showed diffuse gastritis, treated with heater probe. No hypoxemic on room air but desaturation study confirmed need for 2L of oxygen. PFTs showed mild obstruction of small airways as well as restriction. She was started on Symbicort and as needed albuterol. Chronic hypoxemic respiratory failure likely due to obesity hypoventilation and untreated sleep apnea. Basedon oximetry with ambulation 06/30 patient was requiring 2L supplemental oxygen with exertion. Today, patient has her supplemental oxygen on. She reports she still feels chest tightness despite Symbicort and supplemental oxygen. Since the last Pulmonary Clinic visit 06/20/2022, the patient has not required ED care for exacerbation. There has been no hospital admission for exacerbation. Claims to be consistently compliant with prescribed maintenance Rx Symbicort. Occasionally uses rescue bronchodilator, with some relief. Intermittent cough with yellow to green sputum at baseline. No hemoptysis. Denies reflux symptoms. However, she reports chest tightness after eating. Follows with Dr. De La Fuente at [facility] for GI. Denies post nasal drip. Frequent wheezing. No dyspnea at rest. Exertional dyspnea with minimal exertion. Difficulty climbing stairs and walking long distances. Lower extremity edema, stable. On Lasix. Recently seen by cardiology at [facility] and hasechocardiogram scheduled. Currently wearing 2 L supplemental oxygen with exertion and at night. Non-compliant with PAP therapy. Patient did not tolerate mask or nasal pillows. DME: [employer]. PAST MEDICAL HISTORY Diagnosis Date Adjustment disorder with depressed mood Chronic hypoxemic respiratory failure (HCC) Esophageal reflux Essential hypertension, benign Generalized anxiety disorder GI bleed HLD (hyperlipidemia) Menorrhagia Migraine without aura Morbid obesity (HCC) Nonspecific abnormal results of other endocrine function study 06/2004 Benign biopsy. Abnormally high thyroid globulin HARMONY (obstructive sleep apnea) Pulmonary emboli (HCC) 09/2013 Bilateral on CTA chest. Scleritis Type II or unspecified type diabetes mellitus without mention of complication, not stated as uncontrolled Allergies: Latex Itching Prinivil [Lisinopri* Cough Zanaflex [Tizanidin* Shortness of Breath furosemide (LASIX) 20 mg tablet^Take 1 tablet by mouth once daily.^Disp: 90 tablet^Rfl: 1 alcohol swabs (BD SINGLE USE SWABS REGULAR)^For use with insulin injections 4 times daily^Disp: 400Each^Rfl: 0 budesonide-formoterol (SYMBICORT) 160-4.5 mcg/actuation inhaler^Inhale 2 Puffs as instructed twice daily.^Disp: 1 Each^Rfl: 5 nystatin-triamcinolone (MYCOLOG) ointment^Apply sparingly to skin twice daily for irritation/infection.^Disp: 30 g^Rfl: 0 atorvastatin (LIPITOR) 20 mg tablet^Take 1 tablet by mouth once daily. For cholesterol.^Disp: 90 tablet^Rfl: 3 ferrous sulfate 325 mg (65 mg iron) tablet^Take 1 tablet by mouth twice daily with meals.^Disp: 60 tablet^Rfl: 11 levothyroxine (SYNTHROID) 200 mcg tablet^Take 1 tablet by mouth once daily. Thursday through Thursday, 1/2 tab on Thursday^Disp: 90 tablet^Rfl: 3 omeprazole (PRILOSEC) 40 mg capsule^Take 1 capsule by mouth once daily.^Disp: 90 capsule^Rfl: 1 albuterol HFA (PROVENTIL HFA, VENTOLIN HFA) 90 mcg/actuation inhaler^Inhale 2 Puffs as instructed every 6 hours as needed.^Disp: 1 Each^Rfl: 3 C-500 500 mg tablet^Take 1 tablet by mouth once daily.^Disp: 30 tablet^Rfl: 5 sucralfate (CARAFATE) 1 gram tablet^Take 1 tablet by mouth twice daily.^Disp: 60 tablet^Rfl: 5 Lancets lancets^Test blood sugar(s) 4 times daily. Dx: Type 2 DM - Controlled E11.9 Insulin: Yes^Disp: 100 Each^Rfl: 5 blood sugar diagnostic (BLOOD GLUCOSE TEST) test strip^Test blood sugar(s) 4 times daily. Dx: Type 2 DM - Controlled E11.9 Insulin: Yes^Disp: 100 Strip^Rfl: 5 fluorometholone (FML LIQUID FILM) 0.1 % ophthalmic suspension^INSTILL 1 DROP IN BOTH EYES 1-2 TIMESPER DAY^Disp: ^Rfl: carvedilol (COREG) 12.5 mg tablet^Take 1 tablet by mouth twice daily.^Disp: 60 tablet^Rfl: 5 losartan (COZAAR) 100 mg tablet^Take 1 tablet by mouth once daily.^Disp: 90 tablet^Rfl: 3 ferrous sulfate 325 mg (65 mg iron) tablet^Take 1 tablet by mouth twice daily with meals.^Disp: 180tablet^Rfl: 3 SITagliptin-metFORMIN (JANUMET) 50-1,000 mg per tablet^Take 1 tablet by mouth twice daily with meals.^Disp: 180 tablet^Rfl: 3 escitalopram oxalate (LEXAPRO) 10 mg tablet^One pill by mouth daily.^Disp: 90 tablet^Rfl: 3 (Patient not taking: No sig reported) SUMAtriptan (IMITREX) 50 mg tablet^Take 1 tablet by mouth as needed for migraine headache (see administration instructions).^Disp: 9 tablet^Rfl: 11 insulin needles, DISPOSABLE, (PEN NEEDLE) 31 gauge x /16^Use one needle per dose. 4 per day.^Disp: 120 Each^Rfl: 11 Insulin [place], Disposable, (UNIFINE PENTIPS) 31 gauge x /4 ndle^use 1 (ONE) new needle with each dose, FOUR per day.^Disp: 400 Each^Rfl: 11 loratadine (CLARITIN) 10 mg tablet^Take 1 tablet by mouth once daily.^Disp: 30 tablet^Rfl: 11 hydrocortisone (PROCTOCORT) 1 % cream^Apply to affected area twice daily.^Disp: 56 g^Rfl: 0 blood sugar diagnostic (BLOOD GLUCOSE TEST) test strip^Test blood sugar(s) 4 times daily. Dx: Type 2 DM - Controlled E11.9 Insulin: Yes^Disp: 400 Strip^Rfl: 5 flash glucose scanning reader (FREESTYLE SHIVAM 10 DAY READER)^1 Each once every month.^Disp: 3 Each^Rfl: 3 Social History Tobacco Use Smoking status: Never Smokeless tobacco: Never Tobacco comments: FAther smoking in childhood home. Has lived with smoker in home, son quit about 2015. Vaping Use Vaping Use: Never used Substance Use Topics Alcohol use: No Drug use: No Family History Problem Relation Age of Onset Hypertension Mother Diabetes Mother Thyroid Mother thyroidectomy Heart Mother murmur Heart Father of [place] Diabetes Brother Hypertension Brother No Known Problems Brother other (Other) Maternal Grandmother Pneumothorax Breast Cancer Maternal Aunt Metastatic to bone other (Other) Other No DVT or PE. No Known Problems Son No Known Problems Daughter PAST SURGICAL HISTORY Procedure Laterality Date CARPAL TUNNEL Right 12/10 CHOLECYSTECTOMY 11/15/2019 Dr. Ferguson EGD 03/07/2020 Dr Ferguson LIG/TRNSXJ FLP TUBE ABDL/VAG APPR /BI 1988 THYROID BIOPSY US 11/2015 THYROIDECTOMY TOTAL/COMPLETE Left 12/13/2018 Dr Ferguson TOTAL THYROID LOBECTOMY UNI W/WO ISTHMUSECTOMY 01/15/07 right XCAPSL CTRC RMVL INSJ IO LENS PROSTH W/O ECP Right 06/2015 Cataract Extraction with PC IOL XCAPSL CTRC RMVL INSJ IO LENS PROSTH W/O ECP Left 07/2015 Cataract Extraction with PC IOL I reviewed the past medical history, family history, social history and surgical history with changes noted above and updated in EMR. IMMUNIZATIONS Prevnar - 01/26/2019 Pneumovax 23 - 01/18/2020, 01/21/2018, 01/07/2018 Influenza - 01/22/2022 COVID-19 - 10/09/2020, 09/11/2020 ROS: General: No fevers, chills, or unintentional weight loss. Appetite fair. Eyes, Ears, nose, throat: No post nasal drip, rhinorrhea, purulent nasal discharge, epistaxis. No hoarseness. Vision stable. Cardiac: No angina. Sleeps in recliner orthopnea. Resp: See HPI. GI: No heartburn, dysphagia. Musculoskeletal: No pain. Neuro: No headache, focal weakness, tremor. Skin: No new rash. Otherwise negative. PHYSICAL EXAMINATION: BP 136/84 Pulse 80 Resp (P) 19 Wt 112 kg (247 lb) LMP 03/21/2005 SpO2 93% BMI 47.44 kg/m O2: 2L NC Gen: No acute distress. Cooperative with examination. Morbidly obese. HEENT: Normocephalic. Sclera, conjunctiva clear. Oral hygeine and dentition good. No thrush. Resp: No stridor, accessory respiratory muscle use, supra-sternal or intercostal retractions. No wheezes, crackles. CV: Regular rythm. Systolic murmur. Radial pulses normal. Abd: Non distended. MSK: No joint deformities. Ext: Warm and well perfused. No clubbing, cyanosis. Lymphedema. Neuro: Mental status normal. Affect normal. No tremor. DATA: PFT, 06/20/2022 IMPRESSION: Spirometry reveals obstruction; reduced FVC indicates concurrent restriction. Together, a mild impairment is revealed. Electronically Signed On 06-20-2022 16:44:36 EST by Chrissy Dowell M.D. Oximetry, 06/30/2022 O2 Device O2 Adapter NC O2 Flow SpO2% HR Activity Ft Walked (ft) Time (min) Avg Speed (MPH) R/A 94 69 Resting R/A 86 96 Walking, usual pace 230 1.8 1.45 NC 2 94 74 Resting NC 2 90 93 Walking, usual pace 400 3 1.52 CXR, 03/15/2022 IMPRESSION: Right infrahilar infiltrate is new. Follow-up to document resolution recommended COMPARISON: 07/30/2017 RESULT: Lines, tubes, and devices: None. Lungs and pleura: No consolidation. No lung mass. No pleural effusion. No pneumothorax. Mild right infrahilar infiltrate is new Cardiomediastinal silhouette: Stable cardiomediastinal silhouette. Bones and soft tissues: Multilevel osteophytosis. Multilevel mild wedge deformities. Stable Echocardiogram, 07/12/2021 CONCLUSIONS: - Exam indication: Cardiac murmur - The left ventricle is normal in size. Left ventricular systolic function is normal. EF = 62 5% (2D biplane) Indeterminate left ventricular diastolic dysfunction. - The right ventricle is normal in size. Right ventricular systolic function is normal. - The left atrial cavity is mildly dilated. - There are no significant valvular abnormalities. - Exam was compared with the prior echocardiographic exam performed on 06/22/2017, no significant change. SSMENT/PLAN: 1. Obstructive lung disease (generalized) (HCC) - ICD9: 496, ICD10: J44.9 (primary diagnosis) Continue Symbicort 2 inhalations twice daily. Provided Aerochamber and instructed on use. Albuterol HFA inhaler, 2 inhalations 10-15 minutes prior to activities associated with shortness ofbreath, and as needed for rescue relief of shortness of breath or wheezing, up to 4 times daily. 2. Chronic respiratory failure with hypoxia (HCC) - ICD9: 518.83, 799.02, ICD10: J96.11 Most likely due to obesity hypoventilation and untreated sleep apnea. Continue 2L supplemental oxygen at night and with exertion. 3. Morbid obesity (HCC) - ICD9: 278.01, ICD10: E66.01 Weight loss encouraged. Portions of this documentation were copied and pasted from previous office visit notes in order to provide a cohesive continuity of the history. The note has been reviewed and edited and updated as necessary. 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 * Telephone Encounter - Lizet Cisneros RN - 08/06/2022 10:51 AM EDT Patient returns call and provider message reviewed. Patient hasn't scheduled an appointment with Dr. Sudhakar koroma. Phone number to office given and requested patient call today and then let us know of appointment. Patient scheduled for labs in 2 weeks. Patient asking for a letter for [employer] stating what diagnosis she has that would qualify her to receive air conditioning through them at no charge. Patient reports if provider is willing towrite letter she will fruit picker in medical records when completed. Please call patient at [phone]. Lizet Cisneros RN * Telephone Encounter - Kimmy Zavala - 08/06/2022 9:36 AM EDT Message left for her to return call. Kimmy Zavala * Telephone Encounter - Barak Tiwari MD - 08/06/2022 9:29 AM EDT Please ask her to let us know when her appt is. Check ifobt and recheck cbc in two weeks. If anemia does not come up, we may have to consider having her see hematology too * Telephone Encounter - Leyda Wall RN - 08/06/2022 8:59 AM EDT Contacted patient and her responses to PCP questions are as follows: She states she is taking her iron daily as ordered. Denies any stomach issues currently. She does not have appt scheduled with Dr. De La Fuente yet. She states she is going to call their office today to make appt. Leyda Wall RN * Telephone Encounter - Barak Tiwari MD - 08/06/2022 8:31 AM EDT Got labs from cardiology. Her anemia is not budging at all. Make sure she is still taking her iron and not missing any doses Any stomach issues currently? Does she have her follow up visit scheduled with Dr. De La Fuente yet?(I have asked her to do so multipletimes and so far has not done it) documented in this encounterCleveland Clinic Foundation03-28-2023 Miscellaneous Notes* Telephone Encounter - Ignacia Godoy LPN - 07/22/2022 12:17 PM EDT Pt returned call & was notified of results & message from provider. Pt was instructed to call Dr De La Fuente's office & she states she will today or tomorrow. Ignacia Godoy LPN * Telephone Encounter - Mulu Soto RN - 07/22/2022 11:24 AM EDT Called and left a voicemail for the Patient to call back and ask for a nurse to receive the providers message. Mulu Soto RN * Telephone Encounter - Barak Tiwari MD - 07/22/2022 8:50 AM EDT Her anemia is still pretty significant but stable. Make sure she is not missing any of her iron. She again needs to set up her follow up with Dr. De La Fuente as I have asked her to do multiple times(and she has not yet) Her sodium is a little lower. Drop her lasix to 20 mg a day and recheck labs in two weeks. Call if any increased shortness of breath or edema. documented in this encounterCleveland Clinic Foundation03-24-2023 History of Present illness Narrative* Barak Tiwari MD - 07/18/2022 3:09 PM EDT Patient presents with: Follow Up HPI: Patient presents today for office visit for follow up. Scheduled with Cardiology next week. Seen by Pulm on 06/20/22. Started Symbicort with continued as needed albuterol. Still using Oxygen. Pulm feels she would do better if able to use PAP. No appointment scheduled with Gastro. Restarted her Omeprazole. No bloody or black stool. No abdominal pain. Denies any issues. No worsening edema. No chest pain. Cellulitis is better. Does have a follow up with cardiology next week for her chf. She has a follow up with pulmonary next month. Reinforced importance of compliance. Discussed need for oxygen, weight loss and follow up with cardiology, pulmonary and also gi for her anemia. Sugars are good. Still short of breath when off oxygen. No change in edema. Bp is stable. No black or bloody stools. We discussed that she may need to look into disability. See Previous OV: Went through medication with patient today. Will need refill on lasix if she is to continue. She was still taking metoprolol and coreg and amlodipine we think. Was not taking omeprazole. Did not not set up any of her appts with pulmonary or gi. Has stress test coming up Diabetes: Glucose has been running 80-90 or low 100's so has not been using insulin because she waswalking up sweating feeling too low. Gastro: Had stopped her omeprazole because thought was duplicate to her sucralate advised that no needs to take and added to her AVS instructions. Patient has the medication at home. No black or bloody stools no abd pain. Feeling much better and wanting to get back to work. Saw vascular for her leg. Told her what we have told her numerous times to wear compresission hose. Has repeat labs scheduled the end of the month. No worsening edema. No chest pain. Cellulitis is better. Can go without oxygen for a little but then gets winded again. Wants to return to work but explained she needs evaluated by cardiology and pulmonary first. HOSPITAL/ER FOLLOW UP: Reason for visit: edema and shortness of breath sent from office Which facility: [facility] Date of visit: 05/14/22 Diagnosis: anemia, GI bleed, cellulitis Testing done: EGD-had active bleeding requiring a heater prove. Treatment given: added lasix(we have allergy listed-rash), sent home with doxy for 5 days Is to wear oxygen at 2 L/min all the time. Was to set up appt with pulmonary for same. Current symptoms: feeling much better would like to go back to work they sent over job description asking if she is able to do job. 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 Norvasc was discontinued. Had stopped it previously which made no difference in her edema and bp isup. States that glucose readings have been good since home. Asked her to please bring her pills to next visit so we can be sure taking the right medications. She is uncure of what she is taking. Had attempted to do stress test recently and she did not hold betablocker as instructed to not completed. Was having chest discomfort and shortness of breath previously. Bnp mildly up at 347. Had echo done this year. Getting chemical stress in next week. She has an appointment to see GASTROENTEROLOGY and Pulmonary. Also is seeing Dr. Holland in the lymphedema clinic. May be getting capsule endoscopy. Taking lasix. She is not having recurrent rash that prompted stopping it before. Will take it off allergy list. Sugars have been good. No current gi issues. Not really having chest discomfort. Breathing is better. She wants to return to work. Discussed that can return to work if can elevate legs prn, has to be sedentary and wear oxygen while at work. Previus echo. - The left ventricle is normal in size. Left ventricular systolic function is normal. EF = 62 5% (2D biplane) Indeterminate left ventricular diastolic dysfunction. - The right ventricle is normal in size. Right ventricular systolic function is normal. - The left atrial cavity is mildly dilated. - There are no significant valvular abnormalities. MEDICATIONS: Current Outpatient Medications Medication Sig alcohol swabs (BD SINGLE USE SWABS REGULAR) For use with insulin injections 4 times daily budesonide-formoterol (SYMBICORT) 160-4.5 mcg/actuation inhaler Inhale 2 Puffs as instructed twice daily. furosemide (LASIX) 40 mg tablet Take 1 tablet by mouth once daily. nystatin-triamcinolone (MYCOLOG) ointment Apply sparingly to skin twice daily for irritation/infection. atorvastatin (LIPITOR) 20 mg tablet Take 1 tablet by mouth once daily. For cholesterol. ferrous sulfate 325 mg (65 mg iron) tablet Take 1 tablet by mouth twice daily with meals. levothyroxine (SYNTHROID) 200 mcg tablet Take 1 tablet by mouth once daily. Thursday through Thursday, 1/2 tab on Thursday omeprazole (PRILOSEC) 40 mg capsule Take 1 capsule by mouth once daily. (Patient taking differently: Take 40 mg by mouth twice daily.) albuterol HFA (PROVENTIL HFA, VENTOLIN HFA) 90 mcg/actuation inhaler Inhale 2 Puffs as instructed every 6 hours as needed. C-500 500 mg tablet Take 1 tablet by mouth once daily. sucralfate (CARAFATE) 1 gram tablet Take 1 tablet by mouth twice daily. Lancets lancets Test blood sugar(s) 4 times daily. Dx: Type 2 DM - Controlled E11.9 Insulin: Yes blood sugar diagnostic (BLOOD GLUCOSE TEST) test strip Test blood sugar(s) 4 times daily. Dx: Type 2 DM - Controlled E11.9 Insulin: Yes fluorometholone (FML LIQUID FILM) 0.1 % ophthalmic suspension INSTILL 1 DROP IN BOTH EYES 1-2 TIMESPER DAY carvedilol (COREG) 12.5 mg tablet Take 1 tablet by mouth twice daily. losartan (COZAAR) 100 mg tablet Take 1 tablet by mouth once daily. ferrous sulfate 325 mg (65 mg iron) tablet Take 1 tablet by mouth twice daily with meals. SITagliptin-metFORMIN (JANUMET) 50-1,000 mg per tablet Take 1 tablet by mouth twice daily with meals. SUMAtriptan (IMITREX) 50 mg tablet Take 1 tablet by mouth as needed for migraine headache (see administration instructions). insulin needles, DISPOSABLE, (PEN NEEDLE) 31 gauge x 5/16 Use one needle per dose. 4 per day. Insulin [place], Disposable, (UNIFINE PENTIPS) 31 gauge x 1/4 ndle use 1 (ONE) new needle with each dose, FOUR per day. loratadine (CLARITIN) 10 mg tablet Take 1 tablet by mouth once daily. hydrocortisone (PROCTOCORT) 1 % cream Apply to affected area twice daily. blood sugar diagnostic (BLOOD GLUCOSE TEST) test strip Test blood sugar(s) 4 times daily. Dx: Type 2 DM - Controlled E11.9 Insulin: Yes flash glucose scanning reader (INVID[employer] TechnologiesSTYLE SHIVAM 10 DAY READER) 1 Each once every month. escitalopram oxalate (LEXAPRO) 10 mg tablet One pill by mouth daily. (Patient not taking: No sig reported) Current Facility-Administered Medications Medication Dose Route Frequency perflutren lipid microspheres 1.3 mL in NaCl (PF) 0.9% 10 mL injection (DEFINITY) INTRAVENOUS DIRECTED PRN sodium chloride 0.9 % (flush) 10 mL (BD POSIFLUSH) 10 mL INTRAVENOUS DIRECTED PRN ALLERGIES: ALLERGIES Allergen Reactions Latex Itching Prinivil [Lisinopri* Cough Zanaflex [Tizanidin* Shortness of Breath PAST MEDICAL HISTORY Diagnosis Date Adjustment disorder with depressed mood Chronic hypoxemic respiratory failure (HCC) Esophageal reflux Essential hypertension, benign Generalized anxiety disorder GI bleed HLD (hyperlipidemia) Menorrhagia Migraine without aura Morbid obesity (HCC) Nonspecific abnormal results of other endocrine function study 06/2004 Benign biopsy. Abnormally high thyroid globulin HARMONY (obstructive sleep apnea) Pulmonary emboli (HCC) 09/2013 Bilateral on CTA chest. Scleritis Type II or unspecified type diabetes mellitus without mention of complication, not stated as uncontrolled PAST SURGICAL HISTORY Procedure Laterality Date CARPAL TUNNEL Right 12/10 CHOLECYSTECTOMY 11/15/2019 Dr. Ferguson EGD 03/07/2020 Dr Ferguson LIG/TRNSXJ FLP TUBE ABDL/VAG APPR UNI/BI 1988 THYROID BIOPSY US 11/2015 THYROIDECTOMY TOTAL/COMPLETE Left 12/13/2018 Dr Ferguson TOTAL THYROID LOBECTOMY UNI W/WO ISTHMUSECTOMY 01/15/07 right XCAPSL CTRC RMVL INSJ IO LENS PROSTH W/O ECP Right 06/2015 Cataract Extraction with PC IOL XCAPSL CTRC RMVL INSJ IO LENS PROSTH W/O ECP Left 07/2015 Cataract Extraction with PC IOL FAMILY HISTORY Problem Relation Age of Onset Hypertension Mother Diabetes Mother Thyroid Mother thyroidectomy Heart Mother murmur Heart Father of [place] Diabetes Brother Hypertension Brother No Known Problems Brother other (Other) Maternal Grandmother Pneumothorax Breast Cancer Maternal Aunt Metastatic to bone other (Other) Other No DVT or PE. No Known Problems Son No Known Problems Daughter Social History Tobacco Use Smoking status: Never Smokeless tobacco: Never Tobacco comments: FAther smoking in childhood home. Has lived with smoker in home, son quit about 2015. Vaping Use Vaping Use: Never used Substance Use Topics Alcohol use: No Drug use: No Reviewed current medications, allergies, past medical history, surgical history, family history andsocial history today. REVIEW OF SYSTEMS All other reviewed and negative other than HPI. HEALTH MAINTENANCE: HIV SCREENING Never done DILATED RETINAL EXAM -has an appt coming up. URINE ALBUMIN:CREATININE RATIO due on 01/29/2022 DIABETIC FOOT EXAM-sees podiatry.sees them again in July MAMMOGRAM due on 07/12/2022 VITALS: BP 138/70 Pulse (!) 56 Ht 153.7 cm (5' 0.5) Wt 109.3 kg (241 lb) LMP 03/21/2005 SpO2 92% BMI 46.29 kg/m Last 4 Encounter Wt Readings: Date: Wt: 06/20/2022 106.1 kg (234 lb) 06/20/2022 106.1 kg (234 lb) 06/06/2022 108.9 kg (240 lb) 05/23/2022 109.8 kg (242 lb) PHYSICAL EXAMINATION: General appearance: Well appearing, alert, in no acute distress, well-hydrated, well nourished. Skin: Skin color, texture, turgor normal, no suspicious rashes or lesions Head: Normocephalic, no masses, lesions, tenderness or abnormalities Eyes: Anicteric sclera. Pupils are equally round and reactive to light. Extraocular movements are intact. Lungs: Lungs clear to auscultation. No wheezing, rhonchi, rales Heart: RRR without murmur, gallop, or rubs. No ectopy Abdomen: Normal abdominal exam, Abdomen soft, non-tender. Bowel sounds normal. No masses, organomegaly Extremities: No increased edema. ASSESSMENT/PLAN: 1. Type 2 diabetes mellitus with diabetic neuropathy, with long-term current use of insulin (HCC) -ICD9: 250.60, 357.2, V58.67, ICD10: E11.40, Z79.4 (primary diagnosis) - doing well. - ALBUMIN/CREAT RATIO RND UR 2. Chronic diastolic congestive heart failure (HCC) - ICD9: 428.32, 428.0, ICD10: I50.32 - follow with cardiology 3. Essential hypertension, benign - ICD9: 401.1, ICD10: I10 - good control - Continue current medication(s) - Goal of BP <130/80 - BASIC METABOLIC PNL 4. Other chronic pulmonary embolism without acute cor pulmonale (HCC) - ICD9: 416.2, ICD10: I27.82 - stable. 5. Other hyperlipidemia - ICD9: 272.4, ICD10: E78.49 6. Obstructive lung disease (generalized) (HCC) - ICD9: 496, ICD10: J44.9 - continue meds. Stay on oxygen and follow with pulmonary 7. Chronic hypoxemic respiratory failure (HCC) - ICD9: 518.83, 799.02, ICD10: J96.11 8. CANCER M->Z THYROID - ICD9: 193, ICD10: C73 - has followed with Dr Plunkett 9. Lymphedema - ICD9: 457.1, ICD10: I89.0 - saw lymphedema clinic 10. Screening breast examination - ICD9: V76.10, ICD10: Z12.39 - Follow up for annual exam in one year. - JOSEFA SCREENING 11. Iron deficiency anemia due to chronic blood loss - ICD9: 280.0, ICD10: D50.0 - reinforced need to see gi. - CBC + DIFF - IRON + TIBC 12. Screening for HIV (human immunodeficiency virus) - ICD9: V73.89, ICD10: Z11.4 - HIV 1 2 COMBO(AG/AB),WITH REFLEX TO DIFFERENTIATION Barak Tiwari MD documented in this encounterCleveland Clinic Foundation03-13-2023 Miscellaneous Notes* Telephone Encounter - Patty George - 07/07/2022 11:12 AM EDT Pharmacy verified in Epic Patient has been identified by name and date of : Yes Patient aware RX will be sent to pharmacy. No need to notify patient. Patient phones for refill(s): Requested Prescriptions Pending Prescriptions Disp Refills alcohol swabs (BD SINGLE USE SWABS REGULAR) 400 Each 0 Sig: For use with insulin injections 4 times daily Date of last office visit : 06/06/2022 Date of next office visit : 07/18/2022 Last 2 Encounter Wt Readings: Date: Wt: 06/20/2022 106.1 kg (234 lb) 06/20/2022 106.1 kg (234 lb) Not applicable Please advise. Patty Vasques Pss documented in this encounterCleveland Clinic Foundation03-06-2023 Miscellaneous Notes* Telephone Encounter - Leyda Wall RN - 06/30/2022 3:55 PM EST Patient returned call and given provider's message below. Pt asking Dr. Tiwari: Why am I on oxygen? What's wrong with my lungs? I want some answers. Alsostates she wants to get back to work. Patient was recently advised at last on 06/[address] Tiwari to have evaluations with Pulmonary and Cardiology first before discussing a return to work date. Pt has followed up with Pulmonary but not Cardiology yet. Pt encouraged to do so as soon as possible. Pt states she would like to be seen at [facility]. Referral information faxed as requested. Pt instructed to contact them for appt. Leyda Wall RN * Telephone Encounter - Nicol Patrick Ma - 06/30/2022 12:26 PM EST Left message for patient to return call. Nicol Patrick Ma * Telephone Encounter - Barak Tiwari MD - 06/30/2022 11:43 AM EST She drops her oxygen enough that for her to return to work, it would be with her wearing oxygen theentire time. Needs to stay on it. documented in this encounterCleveland Clinic Foundation03-06-2023 Procedure note* PRISCILA Cox - 06/30/2022 10:39 AM ESTAssociated Order(s): OXIMETRY WITH AMBULATION RESPIRATORY THERAPY OXIMETRY WITH AMBULATION Oximetry with Ambulation Test for This Encounter O2 Device O2 Adapter NC O2 Flow SpO2% HR Activity Ft Walked (ft) Time (min) Avg Speed (MPH) R/A 94 69 Resting R/A 86 96 Walking, usual pace 230 1.8 1.45 NC 2 94 74 Resting NC 2 90 93 Walking, usual pace 400 3 1.52 General Information Pulse Oximetry Site Total Time Spent O2 Supply Carrier Walking Assistance/Device R Index Finger 20 3 Wheel Walker -- NAME: PRISCILA Cox PATIENT NAME: Jesus Zepeda DATE: June 30, 2022 TIME: 10:39 AM Comment: documented in this encounterCleveland Clinic Foundation03-06-2023 History of Present illness Narrative* PRISCILA Cox - 06/30/2022 10:37 AM EST PULM FUNCTION SMARTBLOCK: Provider: Barak Tiwari MD Assisting Tech: PRISCILA Cox Oximetry - Ambulation: 1 documented in this encounterCleveland Clinic Foundation03-01-2023 Miscellaneous Notes* Telephone Encounter - Arleen Philip Pss - 06/25/2022 3:45 PM EST 1st attempt to reach patient. Left message for patient to call office to schedule Oximetry test perPCP. * Telephone Encounter - Barak Tiwari MD - 06/25/2022 2:24 PM EST ordered * Telephone Encounter - Mariana Delgado LPN - 06/25/2022 2:08 PM EST Phone call to patient, patient is willing to do the six minute walk. She states she has already spoken to her insurance, [email or web address]. Please review and advise. * Telephone Encounter - Barak Tiwari MD - 06/25/2022 1:42 PM EST I have already explained to Jesus that she has to wear oxygen until her lungs are better. That hasnothing to do with the pulmonary folks I can return her to work if they let her wear oxygen 17/11. We can do a six minute walk to see if she is suddenly able to maintain her oxygen level without it. Let me know if she is willing. She may want to talk to her provider about why she is being charged. Make sure they are billing correctly. Was started in the hospital. * Telephone Encounter - Swathi Lundberg - 06/24/2022 4:28 PM EST Pt calling back to see if someone can call her tomorrow to discuss the oxygen. She is very upset. States she owes the oxygen company $75 and she cannot afford it. She wants to get off of the oxygen and go back to work. Advised that I would relay the message and have someone call her back Thursday when they return tothe office. Swathi Lundberg * Telephone Encounter - Kaylie Silva MA - 06/24/2022 4:10 PM EST Per 06/06/22 letter by PCP; patient off work until clear by cardiology and pulmonology. As of 06/23/22, patient has been terminated from her employer. Kaylie Silva MA * Telephone Encounter - She Nguyen LPN - 06/24/2022 3:46 PM EST Detailed message left for patient re: same. Also advised that if [facility] is requiring additional information for insurance billing, we are happy to assist with getting them documentation necessary for insurance billing for oxygen coverage. Unfortunately, patient does require O2 with exertion and cannot be released to work without restrictions. She Nguyen LPN * Telephone Encounter - Xi Templeton Ma - 06/24/2022 12:28 PM EST Images from the original note were not included. Chrissy Dowell MD You 9 minutes ago (12:18 PM) I did not put her on work restriction and I cannot release her without restrictions because she requires oxygen * Telephone Encounter - Xi Templeton Ma - 06/24/2022 9:57 AM EST Patient called and states she is unable to afford the oxygen. She is currently not working and her insurance is not covering it. States she has been only using 2 liters at night. She is also asking if she can a note to return to work without restrictions? She will fruit picker the letter when ready. documented in this encounterCleveland Clinic Foundation02-27-2023 Miscellaneous Notes* Telephone Encounter - Nancy Andrea LPN - 06/23/2022 5:40 PM EST Patient notified. * Telephone Encounter - Nancy Andrea LPN - 06/23/2022 3:58 PM EST Wait for additional note about going back to work. * Telephone Encounter - Barak Tiwari MD - 06/23/2022 3:55 PM EST Let her know her stress test was ok. documented in this encounterCleveland Clinic Foundation02-27-2023 Miscellaneous Notes* Telephone Encounter - Nancy Andrea LPN - 06/23/2022 5:39 PM EST Patient states that she can't afford the oxygen. She has been terminated from her employment now also. She is going to check with pulm. * Telephone Encounter - Barak Tiwari MD - 06/23/2022 5:16 PM EST Again, needs cleared for her oxygen use by the specialists * Telephone Encounter - Sanjuanita Rust Pss - 06/23/2022 3:36 PM EST Patient called asking if she could be released back to work. She states she is feeling much better.Please advise. documented in this encounterCleveland Clinic Foundation02-27-2023 History of Present illness Narrative* Kaylie Lagos RN - 06/23/2022 10:21 AM EST RADIOLOGY SERVICE PROGRESS NOTE SERVICE DATE: 06/23/2022 SERVICE TIME: 914 PATIENT IDENTITY VERIFICATION COMPLETED USING TWO (2) METHODS: Patient confirmed name and Date of verbally. ALLERGIES REVIEWED: ИРИНА MEDICATIONS REVIEWED BY: ИРИНА PROCEDURE TYPE: NM STRESS: 0.4 mg of Lexiscan was administered IV at 0940 over 10 Seconds by PHAM Gutierrez Reversal agent used:NA LOT [id number] EXP 11/25/2025 IV SITE: IV palced by nuclear tecnologist POST EXAM PIV STATUS: Discontinued by Camp Housekeeper PATIENT DISCHARGED TO: Nuclear Medicine Department for post stress imaging A Diagnostic radioactive procedure has taken place, with no further precautions necessary other than routine body substance precautions. More information regarding radiation safety can be found usingthis link: [email or web address]%20Nuclear%20Medicine%[email or web address] SIGNATURE: KAYLIE LAGOS RN PATIENT NAME:Jesus Zepeda DATE: 06/23/22 TIME: 10:21 AM documented in this encounterCleveland Clinic Foundation02-27-2023 History of Present illness Narrative* Simin Shaw, RT(R) - 06/23/2022 8:00 AM EST RADIOLOGY SERVICE PROGRESS NOTE SERVICE DATE: 06/23/2022 SERVICE TIME: 08:10 AM PATIENT IDENTITY VERIFICATION COMPLETED USING TWO (2) STANDARD IDENTIFIERS: Name and Date of confirmed by patient verbally FALL SCREENING: Has the patient had 2 falls in the last year or 1 fall with injury or currently using an Ambulatory Assistive Device (Walker, Cane, Wheelchair, Crutches, etc.)? No PATIENT GENDER DATA: .female : No ALLERGIES: Reviewed and unchanged MEDICATIONS REVIEWED: No PATIENT RELEVANT IMPLANT DATA REVIEWED: Not Applicable CREATININE: Creatinine Date Value Ref Range Status 05/23/2022 0.78 0.58 - 0.96 mg/dL Final 01/22/2022 0.74 0.58 - 0.96 mg/dL Final 01/10/2022 0.73 0.58 - 0.96 mg/dL Final Estimated Glomerular Filtration Rate Date Value Ref Range Status 05/23/2022 90 >=60 mL/min/1.73m Final Comment: Estimated Glomerular Filtration Rate (eGFR) is calculated using the 2020 CKD-EPI creatinine equation. This equation utilizes serum creatinine, sex, and age as parameters. The creatinine assay has traceable calibration to isotope dilution- mass spectrometry. Refer to KDIGO guidelines for clinical interpretation. In patients with unstable renal function, e.g. those with acute kidney injury, the eGFRmay not accurately reflect actual GFR. eGFR- Date Value Ref Range Status 02/06/2021 >60 Final P.O.C.T. RESULTS: N/A June 23, [address] PERFORMED: No IV SITE: Ambulatory: A peripheral IV was started in the Left antecubital site with a Angio cath: 22gauge. POST EXAM PIV STATUS: Discontinued PROCEDURE TYPE: NM Stress: 14.9 mCi [id number] was administered IV for Rest Imaging at 08:16 by Simin Shaw. 46.3 mCi [id number]-[id number] was administered IV for Stress Imaging at 09:40 by Simin Shaw. ADMINISTRATION TIME: PATIENT DISCHARGED TO: Ambulatory patient, left NM department area. A Diagnostic radioactive procedure has taken place, with no further precautions necessary other than routine body substance precautions. More information regarding radiation safety can be found usingthis link: [email or web address] 20Diagnostic%20Nuclear%20Medicine%[email or web address] SIGNATURE: CAROLANN Ireland) PATIENT NAME: Jesus Zepeda DATE: June 23, 2022 TIME: 12:53 PM PAGER/CONTACT #: documented in this encounterCleveland Clinic Foundation02-24-2023 History of Present illness Narrative* Chrissy Dowell MD - 06/20/2022 8:45 AM EST Images from the original note were not included. . [facility] Note Patient name: Jesus Zepeda PCP: Barak Tiwari MD Referring Physician: Same Consultation requested by Dr. Tiwari for an opinion regarding COPD. My final recommendations will be communicated back to the requesting physician by way of shared Medical record or letter to requesting physician via US mail. CC: SOB HPI: Jesus Zepeda 56 year old morbidly obese female never smoker with PMH significant for GERD, HTN, anxiety, HLD, migraine headaches, DM2, lymphedema, GI bleed, history of pulmonary embolism 2013, HARMONY unable to tolerate CPAP, chronic hypoxemic respiratory failure (discharged on oxygen 04/2022), last seen by Dr. Moses in 2017. At that time she was started on Xarelto for chest pain in light of past history of VTE, although CT of the chest did not show any documented pulmonary embolism. VQ scan negative for chronic thromboembolic disease. He recommended discontinuation of her anticoagulation. Currently being referred for COPD and hypoxemia. She was not on oxygen prior to her last admission, [facility]. Admitted for lymphedema and shortness of breath. Discovered to beanemic with hemoglobin of 6.5. EGD showed diffuse gastritis, treated with heater probe. Not hypoxemic on room air but desaturation study confirmed need for 2 L of oxygen. With regards to her respiratory issues, she is a lifelong non-smoker although she has had significant secondhand smoke exposure.She has intermittent wheezing, cough with mucus production. Sputum is yellow to green in nature. Her cough occurs mainly at 2 AM. Denies any nasal congestion, drainage or postnasal drip. Reflux symptoms controlled with proton pump inhibitor. She does not tend to cough throughout the day or have post prandial cough. She hears wheezing with quiet respirations and with exertion. She has albuterol to use as needed which does seem to improve her symptoms. She denies a history of asthma in the past. No history of seasonal allergies. DME: [employer] 2 liters DATA: Pulmonary function tests show mainly restriction with mild obstruction of small airways Labs: Last CBC significant for anemia with hemoglobin 8.6 and hematocrit 29.8. No eosinophilia Imaging / Diagnostic Studies: DATE OF EXAM: Mar 15 2022 10:58AM WOX [id number] - XR CHEST 2V FRONTAL/LAT / PROCEDURE REASON: Bronchitis CLINICAL HISTORY: Bronchitis MQ: [id number]_6 EXAM DATE/TIME: 03/15/2022 10:58 AM COMPARISON: 07/30/2017 RESULT: Lines, tubes, and devices: None. Lungs and pleura: No consolidation. No lung mass. No pleural effusion. No pneumothorax. Mild right infrahilar infiltrate is new Cardiomediastinal silhouette: Stable cardiomediastinal silhouette. Bones and soft tissues: Multilevel osteophytosis. Multilevel mild wedge deformities. Stable IMPRESSION: Right infrahilar infiltrate is new. Follow-up to document resolution recommended I personally reviewed images of her chest x-ray from [facility] 05/14/2022 which shows small lung volumes probable mild CHF Echocardiogram 07/12/2021: CONCLUSIONS: - Exam indication: Cardiac murmur - The left ventricle is normal in size. Left ventricular systolic function is normal. EF = 62 5% (2D biplane) Indeterminate left ventricular diastolic dysfunction. - The right ventricle is normal in size. Right ventricular systolic function is normal. Estimated RV systolic pressure 41 mmHg - The left atrial cavity is mildly dilated. - There are no significant valvular abnormalities. - Exam was compared with the prior echocardiographic exam performed on 06/22/2017, no significant change. PAST MEDICAL HISTORY Diagnosis Date Adjustment disorder with depressed mood Chronic hypoxemic respiratory failure (HCC) Esophageal reflux Essential hypertension, benign Generalized anxiety disorder GI bleed HLD (hyperlipidemia) Menorrhagia Migraine without aura Morbid obesity (HCC) Nonspecific abnormal results of other endocrine function study 06/2004 Benign biopsy. Abnormally high thyroid globulin HARMONY (obstructive sleep apnea) Pulmonary emboli (HCC) 09/2013 Bilateral on CTA chest. Scleritis Type II or unspecified type diabetes mellitus without mention of complication, not stated as uncontrolled ALLERGIES Allergen Reactions Latex Itching Prinivil [Lisinopri* Cough Zanaflex [Tizanidin* Shortness of Breath albuterol HFA (PROVENTIL HFA, VENTOLIN HFA) 90 mcg/actuation inhaler^Inhale 2 Puffs as instructed every 6 hours as needed.^Disp: 1 Each^Rfl: 3 budesonide-formoterol (SYMBICORT) 160-4.5 mcg/actuation inhaler^Inhale 2 Puffs as instructed twice daily.^Disp: 1 Each^Rfl: 5 furosemide (LASIX) 40 mg tablet^Take 1 tablet by mouth once daily.^Disp: 30 tablet^Rfl: 5 nystatin-triamcinolone (MYCOLOG) ointment^Apply sparingly to skin twice daily for irritation/infection.^Disp: 30 g^Rfl: 0 atorvastatin (LIPITOR) 20 mg tablet^Take 1 tablet by mouth once daily. For cholesterol.^Disp: 90 tablet^Rfl: 3 ferrous sulfate 325 mg (65 mg iron) tablet^Take 1 tablet by mouth twice daily with meals.^Disp: 60 tablet^Rfl: 11 levothyroxine (SYNTHROID) 200 mcg tablet^Take 1 tablet by mouth once daily. Thursday through Thursday, 1/2 tab on Thursday^Disp: 90 tablet^Rfl: 3 omeprazole (PRILOSEC) 40 mg capsule^Take 1 capsule by mouth once daily.^Disp: 90 capsule^Rfl: 1 (Patient taking differently: Take 40 mg by mouth twice daily.) C-500 500 mg tablet^Take 1 tablet by mouth once daily.^Disp: 30 tablet^Rfl: 5 sucralfate (CARAFATE) 1 gram tablet^Take 1 tablet by mouth twice daily.^Disp: 60 tablet^Rfl: 5 Lancets lancets^Test blood sugar(s) 4 times daily. Dx: Type 2 DM - Controlled E11.9 Insulin: Yes^Disp: 100 Each^Rfl: 5 blood sugar diagnostic (BLOOD GLUCOSE TEST) test strip^Test blood sugar(s) 4 times daily. Dx: Type 2 DM - Controlled E11.9 Insulin: Yes^Disp: 100 Strip^Rfl: 5 fluorometholone (FML LIQUID FILM) 0.1 % ophthalmic suspension^INSTILL 1 DROP IN BOTH EYES 1-2 TIMESPER DAY^Disp: ^Rfl: carvedilol (COREG) 12.5 mg tablet^Take 1 tablet by mouth twice daily.^Disp: 60 tablet^Rfl: 5 losartan (COZAAR) 100 mg tablet^Take 1 tablet by mouth once daily.^Disp: 90 tablet^Rfl: 3 ferrous sulfate 325 mg (65 mg iron) tablet^Take 1 tablet by mouth twice daily with meals.^Disp: 180tablet^Rfl: 3 SITagliptin-metFORMIN (JANUMET) 50-1,000 mg per tablet^Take 1 tablet by mouth twice daily with meals.^Disp: 180 tablet^Rfl: 3 alcohol swabs (BD SINGLE USE SWABS REGULAR)^For use with insulin injections 4 times daily^Disp: 400Each^Rfl: 0 escitalopram oxalate (LEXAPRO) 10 mg tablet^One pill by mouth daily.^Disp: 90 tablet^Rfl: 3 (Patient not taking: Reported on 06/06/2022) SUMAtriptan (IMITREX) 50 mg tablet^Take 1 tablet by mouth as needed for migraine headache (see administration instructions).^Disp: 9 tablet^Rfl: 11 insulin needles, DISPOSABLE, (PEN NEEDLE) 31 gauge x 09/09^Use one needle per dose. 4 per day.^Disp: 120 Each^Rfl: 11 Insulin [place], Disposable, (UNIFINE PENTIPS) 31 gauge x 1/4 ndle^use 1 (ONE) new needle with each dose, FOUR per day.^Disp: 400 Each^Rfl: 11 loratadine (CLARITIN) 10 mg tablet^Take 1 tablet by mouth once daily.^Disp: 30 tablet^Rfl: 11 hydrocortisone (PROCTOCORT) 1 % cream^Apply to affected area twice daily.^Disp: 56 g^Rfl: 0 blood sugar diagnostic (BLOOD GLUCOSE TEST) test strip^Test blood sugar(s) 4 times daily. Dx: Type 2 DM - Controlled E11.9 Insulin: Yes^Disp: 400 Strip^Rfl: 5 flash glucose scanning reader ([employer] SHIVAM 10 DAY READER)^1 Each once every month.^Disp: 3 Each^Rfl: 3 Social History Tobacco Use Smoking status: Never Smokeless tobacco: Never Tobacco comments: FAther smoking in childhood home. Has lived with smoker in home, son quit about 2015. Vaping Use Vaping Use: Never used Substance Use Topics Alcohol use: No Drug use: No FAMILY HISTORY Problem Relation Age of Onset Hypertension Mother Diabetes Mother Thyroid Mother thyroidectomy Heart Mother murmur Heart Father of [place] Diabetes Brother Hypertension Brother No Known Problems Brother other (Other) Maternal Grandmother Pneumothorax Breast Cancer Maternal Aunt Metastatic to bone other (Other) Other No DVT or PE. No Known Problems Son No Known Problems Daughter PAST SURGICAL HISTORY Procedure Laterality Date CARPAL TUNNEL Right 12/10 CHOLECYSTECTOMY 11/15/2019 Dr. Ferguson EGD 03/07/2020 Dr Ferguson LIG/TRNSXJ FLP TUBE ABDL/VAG APPR UNI/BI 1988 THYROID BIOPSY US 11/2015 THYROIDECTOMY TOTAL/COMPLETE Left 12/13/2018 Dr Ferguson TOTAL THYROID LOBECTOMY UNI W/WO ISTHMUSECTOMY 01/15/07 right XCAPSL CTRC RMVL INSJ IO LENS PROSTH W/O ECP Right 06/2015 Cataract Extraction with PC IOL XCAPSL CTRC RMVL INSJ IO LENS PROSTH W/O ECP Left 07/2015 Cataract Extraction with PC IOL PMH, Social history, family history and surgical history reviewed and updated in EMR REVIEW OF SYSTEMS: CONSTITUTIONAL: No fevers, chills, nightsweats, unintended weight loss. Daytime sleepiness HEENT: Denies nasal congestion/sinus symptoms, allergy problems. EYES: No diplopia or blurry vision. CARDIOVASCULAR: No chest pain, palpitations, orthopnea, PND. Chronic lymphedema PULM: See HPI GI: No dysphagia/odynophagia, problematic reflux, constipation, diarrhea. Recent upper GI bleed : No urinary complaints, including dysuria, gross hematuria or pyuria. NEURO: No new balance problems, peripheral weakness/paresthesias or numbness of concern. MUSC-SKEL: No joint pain, swelling, or erythema. PSY: No concerns regarding depression, anxiety INTEGUMENTARY: No new skin changes. Recurrent cellulitis PHYSICAL EXAMINATION: BP 110/74 Pulse 82 Resp 14 Ht 5' .5 (1.54m) Wt 234 lb (106.1kg) SpO2 88% LMP 03/21/2005 BMI 44.93 kg/(m^2). General Appearance: Morbidly obese female, NAD Skin: Skin color, turgor normal, no suspicious rashes or lesions. Dry skin Head: Normocephalic, no masses, lesions, tenderness or abnormalities. Eyes: Sclera, conjunctiva normal Oropharynx: Adequate dentition, no oral lesions Neck: No JVD, no masses, no thyromegaly Chest wall: Kyphosis Lungs: Not labored, normal to percussion, no wheezes or crackles. Prolonged expiration Heart: Regular rate and rhythm, systolic murmur left upper sternal border Extremities: Lymphedema, no clubbing Musculoskeletal: No joint deformities or effusions Neurologic: Alert and oriented, no focal findings Lymph Nodes: No cervical lymphadenopathy and No supraclavicular lymphadenopathy. Assessment/Plan: 1. Obstructive lung disease -Clinical history suggestive of obstructive lung disease although pulmonary function tests do not confirm significant large airway obstruction -Started Symbicort with continued as needed albuterol 2. Chronic hypoxemic respiratory failure -Chronic hypoxemic respiratory failure likely due to obesity hypoventilation and untreated sleep apnea -Patient arrived without her oxygen today and room air saturation was 88% -Encourage patient to use oxygen as prescribed -Would do better if able to use PAP 3. Morbid obesity -Class III obesity, BMI 44 -Weight loss advised Chrissy Dowell MD [facility] documented in this encounterCleveland Clinic Foundation02-24-2023 Nurse Note* She Nguyen LPN - 06/20/2022 8:25 AM EST Intake information documented in the prior visit with PRISCILA Cox today. documented in this encounterCleveland Clinic Foundation02-24-2023 History of Present illness Narrative* PRISCILA Cox - 06/20/2022 8:06 AM EST PULM FUNCTION SMARTBLOCK: Provider: Barak Tiwari MD Assisting Tech: PRISCILA Cox Spirometry: 1 documented in this encounterCleveland Clinic Foundation02-23-2023 Miscellaneous Notes* Telephone Encounter - Francesca Nixon - 06/19/2022 10:02 AM EST Patient returned call and received the previously documented instructions. She voiced understanding. Confirmed appointment arrival time. * Telephone Encounter - Kaylie Lagos RN - 06/19/2022 9:42 AM EST Call to pt to review below instructions, LVM to contact office. You are scheduled for a stress test on 06/23/22. This stress test will appear as 3 appointments on your schedule. You may get multiple reminder calls, but please arrive at the earliest scheduled appointment. *NOTHING BY MOUTH 4 HOURS prior to this test. (you may have sips of water) *NO CAFFEINE FOR 24 HOURS PRIOR TO TESTING (including TEA even decaf, COFFEE- even decaf, CHOCOLATE, CHEPE- even decaf) *Do NOT take MEDICATIONS CONTAINING CAFFEINE/XANTHINE for 24 HOURS prior to testing: Theophylline, Trental, Excedrin, Anacin, Goody Powders, No Doz, Vivarin, Midol, Diurex, Fiorinal, Fioricet, Esgic (butalbital) *Do NOT take Calcium Channel Blockers 24 HOURS prior to test: *Do NOT take Beta blockers 24 HOURS prior to test UNLESS your doctor tells you otherwise: Bisoprolol (Zebeta, ZIAC), Metoprolol (Lopressor, Toprol, Lopressor HCT), Nadolol ( Corgard, Corizide), Nebivolol (Bystolic), Pindolol (Visken), Propranolol (Inderal, Inderide), Carvedilol (Coreg, Coreg CR), Labetalol (Trandate) Atenolol (Tenormin, Tenoretic) Acebutolol (Sectral). Medications on your list you should hold for 24 HOURS: Carvedilol (Coreg) *Do not take any of these meds prior to test unless provider directs you otherwise; Nitroglycerine (ex:Deponit, Nitrostat) Isosorbide (ex:Isordil, Sorbitrate,Imdur,Ismo). *All other medications may be taken as you normally would. *Guidelines for Diabetics: If you take insulin to control your blood sugar, ask you physician what amount you should take the day of the test. If you take pills to control blood sugar, on the day of the test, do NOT take them until AFTER the test. *FAILURE TO FOLLOW THESE INSTRUCTIONS WILL RESULT IN HAVING TO RESCHEDULE THE TEST. *If you use an inhaler, bring it along with you just in case *THIS TEST MAY TAKE UP TO 3 HOURS TO COMPLETE. Please check in on the first floor at Radiology: [address]; [place] [address] * If you need to cancel or reschedule this test or have any questions regarding this test, please call [phone]. documented in this encounterCleveland Clinic Foundation02-14-2023 Miscellaneous Notes* Telephone Encounter - Jaquan Latif PA-C - 06/10/2022 4:21 AM EST Defer sleep study to Dr. Dowell. Please have patient cancel appointment with Dr. Carlson. Thanks, Julian Latif PA-C * Telephone Encounter - Lidia Landin RN - 06/09/2022 9:[address] Nathaniel Carlson calls with [facility] Pulmonology and states that when patient was in hospital last patient was referred to her. Dr. Carlson states that she would want patient to have a Split Night Sleep Study done before first visit. Looks like patient has a new patient appointment with Dr. Dowell on 06/20/2022. Lidia Landin RN documented in this encounterCleveland Clinic Foundation02-10-2023 History of Present illness Narrative* Barak Tiwari MD - 06/06/2022 11:30 AM EST Patient presents with: Follow Up HPI: Patient presents today for office visit for follow up. Went through medication with patient today. Will need refill on lasix if she is to continue. She was still taking metoprolol and coreg and amlodipine we think. Was not taking omeprazole. Did not not set up any of her appts with pulmonary or gi. Has stress test coming up Diabetes: Glucose has been running 80-90 or low 100's so has not been using insulin because she waswalking up sweating feeling too low. Gastro: Had stopped her omeprazole because thought was duplicate to her sucralate advised that no needs to take and added to her AVS instructions. Patient has the medication at home. No black or bloody stools no abd pain. Feeling much better and wanting to get back to work. Saw vascular for her leg. Told her what we have told her numerous times to wear compresission hose. Has repeat labs scheduled the end of the month. No worsening edema. No chest pain. Cellulitis is better. Can go without oxygen for a little but then gets winded again. Wants to return to work but explained she needs evaluated by cardiology and pulmonary first. HOSPITAL/ER FOLLOW UP: Reason for visit: edema and shortness of breath sent from office Which facility: [facility] Date of visit: 05/14/22 Diagnosis: anemia, GI bleed, cellulitis Testing done: EGD-had active bleeding requiring a heater prove. Treatment given: added lasix(we have allergy listed-rash), sent home with doxy for 5 days Is to wear oxygen at 2 L/min all the time. Was to set up appt with pulmonary for same. Current symptoms: feeling much better would like to go back to work they sent over job description asking if she is able to do job. 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 Norvasc was discontinued. Had stopped it previously which made no difference in her edema and bp isup. States that glucose readings have been good since home. Asked her to please bring her pills to next visit so we can be sure taking the right medications. She is uncure of what she is taking. Had attempted to do stress test recently and she did not hold betablocker as instructed to not completed. Was having chest discomfort and shortness of breath previously. Bnp mildly up at 347. Had echo done this year. Getting chemical stress in next week. She has an appointment to see GASTROENTEROLOGY and Pulmonary. Also is seeing Dr. Holland in the lymphedema clinic. May be getting capsule endoscopy. Taking lasix. She is not having recurrent rash that prompted stopping it before. Will take it off allergy list. Sugars have been good. No current gi issues. Not really having chest discomfort. Breathing is better. She wants to return to work. Discussed that can return to work if can elevate legs prn, has to be sedentary and wear oxygen while at work. Previus echo. - The left ventricle is normal in size. Left ventricular systolic function is normal. EF = 62 5% (2D biplane) Indeterminate left ventricular diastolic dysfunction. - The right ventricle is normal in size. Right ventricular systolic function is normal. - The left atrial cavity is mildly dilated. - There are no significant valvular abnormalities. MEDICATIONS: Current Outpatient Medications Medication Sig atorvastatin (LIPITOR) 20 mg tablet Take 1 tablet by mouth once daily. For cholesterol. ferrous sulfate 325 mg (65 mg iron) tablet Take 1 tablet by mouth twice daily with meals. furosemide (LASIX) 40 mg tablet Take 40 mg by mouth once daily. levothyroxine (SYNTHROID) 200 mcg tablet Take 1 tablet by mouth once daily. Thursday through Thursday, 1/2 tab on Thursday sucralfate (CARAFATE) 1 gram tablet Take 1 tablet by mouth twice daily. carvedilol (COREG) 12.5 mg tablet Take 1 tablet by mouth twice daily. losartan (COZAAR) 100 mg tablet Take 1 tablet by mouth once daily. ferrous sulfate 325 mg (65 mg iron) tablet Take 1 tablet by mouth twice daily with meals. SITagliptin-metFORMIN (JANUMET) 50-1,000 mg per tablet Take 1 tablet by mouth twice daily with meals. nystatin-triamcinolone (MYCOLOG) ointment Apply sparingly to skin twice daily for irritation/infection. omeprazole (PRILOSEC) 40 mg capsule Take 1 capsule by mouth once daily. (Patient taking differently: Take 40 mg by mouth twice daily.) albuterol HFA (PROVENTIL HFA, VENTOLIN HFA) 90 mcg/actuation inhaler Inhale 2 Puffs as instructed every 6 hours as needed. C-500 500 mg tablet Take 1 tablet by mouth once daily. Lancets lancets Test blood sugar(s) 4 times daily. Dx: Type 2 DM - Controlled E11.9 Insulin: Yes blood sugar diagnostic (BLOOD GLUCOSE TEST) test strip Test blood sugar(s) 4 times daily. Dx: Type 2 DM - Controlled E11.9 Insulin: Yes fluorometholone (FML LIQUID FILM) 0.1 % ophthalmic suspension INSTILL 1 DROP IN BOTH EYES 1-2 TIMESPER DAY insulin aspart, niacinamide, (FIASP FLEXTOUCH U-100 INSULIN) 100 unit/mL (3 mL) pen Use 16 units sqq breakfast and 18 units sq at lunch and 18 units at dinner insulin detemir U-100 (LEVEMIR FLEXTOUCH U-100 INSULIN) 100 unit/mL (3 mL) injection pen Inject 74 Units subcutaneously daily at bedtime. alcohol swabs (BD SINGLE USE SWABS REGULAR) For use with insulin injections 4 times daily escitalopram oxalate (LEXAPRO) 10 mg tablet One pill by mouth daily. (Patient not taking: Reported on 06/06/2022) SUMAtriptan (IMITREX) 50 mg tablet Take 1 tablet by mouth as needed for migraine headache (see administration instructions). insulin needles, DISPOSABLE, (PEN NEEDLE) 31 gauge x 09/09 Use one needle per dose. 4 per day. Insulin [place], Disposable, (UNIFINE PENTIPS) 31 gauge x 04/30 ndle use 1 (ONE) new needle with each dose, FOUR per day. loratadine (CLARITIN) 10 mg tablet Take 1 tablet by mouth once daily. hydrocortisone (PROCTOCORT) 1 % cream Apply to affected area twice daily. blood sugar diagnostic (BLOOD GLUCOSE TEST) test strip Test blood sugar(s) 4 times daily. Dx: Type 2 DM - Controlled E11.9 Insulin: Yes flash glucose scanning reader (FREESTYLE SHIVAM 10 DAY READER) 1 Each once every month. Current Facility-Administered Medications Medication Dose Route Frequency perflutren lipid microspheres 1.3 mL in NaCl (PF) 0.9% 10 mL injection (DEFINITY) INTRAVENOUS DIRECTED PRN sodium chloride 0.9 % (flush) 10 mL (BD POSIFLUSH) 10 mL INTRAVENOUS DIRECTED PRN ALLERGIES: ALLERGIES Allergen Reactions Latex Itching Prinivil [Lisinopri* Cough Zanaflex [Tizanidin* Shortness of Breath PAST MEDICAL HISTORY Diagnosis Date Adjustment disorder with depressed mood Esophageal reflux Essential hypertension, benign Generalized anxiety disorder HLD (hyperlipidemia) Menorrhagia Migraine without aura Morbid obesity (HCC) Nonspecific abnormal results of other endocrine function study 06/2004 Benign biopsy. Abnormally high thyroid globulin Pulmonary emboli (HCC) 09/2013 Bilateral on CTA chest. Scleritis Type II or unspecified type diabetes mellitus without mention of complication, not stated as uncontrolled PAST SURGICAL HISTORY Procedure Laterality Date CARPAL TUNNEL Right 12/10 CHOLECYSTECTOMY 11/15/2019 Dr. Ferguson EGD 03/07/2020 Dr Ferguson LIG/TRNSXJ FLP TUBE ABDL/VAG APPR UNI/BI 1988 THYROID BIOPSY US 11/2015 THYROIDECTOMY TOTAL/COMPLETE Left 12/13/2018 Dr Ferguson TOTAL THYROID LOBECTOMY UNI W/WO ISTHMUSECTOMY 01/15/07 right XCAPSL CTRC RMVL INSJ IO LENS PROSTH W/O ECP Right 06/2015 Cataract Extraction with PC IOL XCAPSL CTRC RMVL INSJ IO LENS PROSTH W/O ECP Left 07/2015 Cataract Extraction with PC IOL FAMILY HISTORY Problem Relation Age of Onset Hypertension Mother Diabetes Mother Thyroid Mother thyroidectomy Heart Mother murmur Heart Father of [place] Diabetes Brother Hypertension Brother No Known Problems Brother other (Other) Maternal Grandmother Pneumothorax Breast Cancer Maternal Aunt Metastatic to bone other (Other) Other No DVT or PE. No Known Problems Son No Known Problems Daughter Social History Tobacco Use Smoking status: Never Smokeless tobacco: Never Tobacco comments: FAther smoking in childhood home. Has lived with smoker in home, son quit about 2015. Vaping Use Vaping Use: Never used Substance Use Topics Alcohol use: No Drug use: No Reviewed current medications, allergies, past medical history, surgical history, family history andsocial history today. REVIEW OF SYSTEMS All other reviewed and negative other than HPI. Component Latest Ref Rng & Units 05/23/2022 WBC 3.70 - 11.00 k/uL 5.75 RBC 3.90 - 5.20 m/uL 3.97 Hemoglobin 11.5 - 15.5 g/dL 9.0 (L) Hematocrit 36.0 - 46.0 % 31.5 (L) MCV 80.0 - 100.0 fL 79.3 (L) MCH 26.0 - 34.0 pg 22.7 (L) MCHC 30.5 - 36.0 g/dL 28.6 (L) RDW-CV 11.5 - 15.0 % 23.4 (H) Platelet Count 150 - 400 k/uL 326 MPV 9.0 - 12.7 fL 9.5 Neut% % 52.1 Abs Neut (ANC) 1.45 - 7.50 k/uL 3.00 Lymph% % 27.7 Abs Lymph 1.00 - 4.00 k/uL 1.59 Wells% % 14.1 Abs Wells <0.87 k/uL 0.81 Eosin% % 4.3 Abs Eosin <0.46 k/uL 0.25 Baso% % 1.6 Abs Baso <0.11 k/uL 0.09 Immature Gran % % 0.2 IMMATURE GRANS (ABS) <0.10 k/uL <0.03 NRBC /100 WBC 0.0 Absolute nRBC <0.01 k/uL <0.01 DTYPE Auto Glucose 74 - 99 mg/dL 97 BUN 7 - 21 mg/dL 21 Creatinine 0.58 - 0.96 mg/dL 0.78 Sodium 136 - 144 mmol/L 133 (L) Potassium 3.7 - 5.1 mmol/L 4.6 Chloride 97 - 105 mmol/L 102 CO2 22 - 30 mmol/L 22 Anion Gap 9 - 18 mmol/L 9 Calcium 8.5 - 10.2 mg/dL 9.5 eGFR >=60 mL/min/1.73m 90 Cholesterol, Total <200 mg/dL 79 Triglyceride <150 mg/dL 169 (H) HDL Cholesterol >39 mg/dL 24 (L) Non HDL Cholesterol <130 mg/dL 55 Fasting Time hrs 14 VLDL Cholesterol <30 mg/dL 34 (H) TC:HDL Ratio <5.10 3.29 LDL Cholesterol <100 mg/dL 21 LDL:HDL Ratio <2.54 0.88 Iron 41 - 186 ug/dL 29 (L) TIBC 232 - 386 ug/dL 358 Transferrin Saturation 15.0 - 57.0 % 8.1 (L) Hemoglobin A1C 4.3 - 5.6 % 5.8 (H) Estimated Average Glucose mg/dL 120 NT Pro BNP <125 pg/mL 193 (H) VITALS: BP 132/74 Pulse (!) 57 Wt 108.9 kg (240 lb) LMP 03/21/2005 SpO2 97% BMI 45.35 kg/m Last 4 Encounter Wt Readings: Date: Wt: 05/23/2022 109.8 kg (242 lb) 05/13/2022 116.1 kg (256 lb) 03/19/2022 107 kg (236 lb) 03/15/2022 105.7 kg (233 lb) PHYSICAL EXAMINATION: General appearance: Well appearing, alert, in no acute distress, well-hydrated, well nourished. andwearing oxygen. Skin: Skin color, texture, turgor normal, no suspicious rashes or lesions Head: Normocephalic, no masses, lesions, tenderness or abnormalities Lungs: Lungs clear to auscultation. No wheezing, rhonchi, rales Heart: RRR without murmur, gallop, or rubs. No ectopy Abdomen: Normal abdominal exam, Abdomen soft, non-tender. Bowel sounds normal. No masses, organomegaly Extremities:no new redness or warmth. Chronic lymphedema unchanged. Musculoskeletal: No joint swelling, deformity, or tenderness Peripheral pulses: Normal Neuro: Negative. ASSESSMENT/PLAN: 1. Congestive heart failure, unspecified HF chronicity, unspecified heart failure type (HCC) - ICD9: 428.0, ICD10: I50.9 (primary diagnosis) - follow with cardiology. Continue meds. - FUROSEMIDE 40 MG TABLET 2. Chronic obstructive pulmonary disease, unspecified COPD type (HCC) - ICD9: 496, ICD10: J44.9 - reinforced importance of gi follow up and taking her meds. - CONSULT TO PULMONARY MEDICINE 3. Iron deficiency anemia, unspecified iron deficiency anemia type - ICD9: 280.9, ICD10: D50.9 - repeat labs ordered. - CONSULT TO GASTROENTEROLOGY 4. Type 2 diabetes mellitus with diabetic neuropathy, with long-term current use of insulin (HCC) -ICD9: 250.60, 357.2, V58.67, ICD10: E11.40, Z79.4 - call sugars in two weeks since stopped insulin on her own. - ALBUMIN/CREAT RATIO RND UR 5. Lymphedema - ICD9: 457.1, ICD10: I89.0 - as above 6. Hypoxia - ICD9: 799.02, ICD10: R09.02 - follow with cardiology and pulonary. - CONSULT TO PULMONARY MEDICINE 7. Cellulitis of left lower extremity - ICD9: 682.6, ICD10: L03.116 - resolved. 8. Gastrointestinal hemorrhage, unspecified gastrointestinal hemorrhage type - ICD9: 578.9, ICD10: K92.2 - as above. - CONSULT TO GASTROENTEROLOGY Barak Tiwari MD RTO in six weeks. Off work until cleared by cardiology and pulmonary documented in this encounterC[facility]02-10-[facility]23 Instructions* Patient Instructions* Barak Tiwari MD - 06/06/2022 11:26 AM EST Take omeprazole 40mg once per day. Refill Vitamin C to take with your iron. Needs to see pulmonary, cardiology and gi. Call sugars in two weeks. Come in for labs in two weeks. documented in this encounterC[facility] Foundation01-30-2023 Miscellaneous Notes* Telephone Encounter - Jaquan Mar RN - 05/26/2022 11:05 AM EST Patient returned call and given provider's message below with verbalized understanding. * Telephone Encounter - Cortney Benavides LPN - 05/24/2022 8:21 AM EST Phoned patient and left message to return call and ask to speak to a nurse. * Telephone Encounter - Barak Tiwari MD - 05/24/2022 7:58 AM EST Anemia is stable. Add iron . Recheck labs in one month. Sugars are very tight. Call if any low sugar spells. Cholesterol is actually really low. Change atorvastatin to 20 mg. Recheck labs in one month documented in this encounterCleveland Clinic Foundation01-27-2023 Instructions* Patient Instructions* Barak Tiwari MD - 05/23/2022 9:19 AM EST Bring medications to next visit. Check medications at home for amlodipine (norvasc) 10mg hospital wanted this medication stopped. Omeprazole 40mg is to be taken twice a day. documented in this encounterC[facility] Foundation01-27-2023 History of Present illness Narrative* Barak Tiwari MD - 05/23/2022 9:12 AM EST Patient presents with: Hospital F/U HPI: Patient presents today for office visit for follow up. HOSPITAL/ER FOLLOW UP: Reason for visit: edema and shortness of breath sent from office Which facility: [facility] Date of visit: 05/14/22 Diagnosis: anemia, GI bleed, cellulitis Testing done: EGD-had active bleeding requiring a heater prove. Treatment given: added lasix(we have allergy listed-rash), sent home with doxy for 5 days Is to wear oxygen at 2 L/min all the time. Was to set up appt with pulmonary for same. Current symptoms: feeling much better would like to go back to work they sent over job description asking if she is able to do job. 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 Norvasc was discontinued. Had stopped it previously which made no difference in her edema and bp isup. States that glucose readings have been good since home. Asked her to please bring her pills to next visit so we can be sure taking the right medications. She is uncure of what she is taking. Had attempted to do stress test recently and she did not hold betablocker as instructed to not completed. Was having chest discomfort and shortness of breath previously. Bnp mildly up at 347. Had echo done this year. Getting chemical stress in next week. She has an appointment to see GASTROENTEROLOGY and Pulmonary. Also is seeing Dr. Holland in the lymphedema clinic. May be getting capsule endoscopy. Taking lasix. She is not having recurrent rash that prompted stopping it before. Will take it off allergy list. Sugars have been good. No current gi issues. Not really having chest discomfort. Breathing is better. She wants to return to work. Discussed that can return to work if can elevate legs prn, has to be sedentary and wear oxygen while at work. Previus echo. - The left ventricle is normal in size. Left ventricular systolic function is normal. EF = 62 5% (2D biplane) Indeterminate left ventricular diastolic dysfunction. - The right ventricle is normal in size. Right ventricular systolic function is normal. - The left atrial cavity is mildly dilated. - There are no significant valvular abnormalities. MEDICATIONS: Current Outpatient Medications Medication Sig furosemide (LASIX) 40 mg tablet Take 40 mg by mouth once daily. levothyroxine (SYNTHROID) 200 mcg tablet Take 1 tablet by mouth once daily. Thursday through Thursday, 1/2 tab on Thursday omeprazole (PRILOSEC) 40 mg capsule Take 1 capsule by mouth once daily. (Patient taking differently: Take 40 mg by mouth twice daily.) albuterol HFA (PROVENTIL HFA, VENTOLIN HFA) 90 mcg/actuation inhaler Inhale 2 Puffs as instructed every 6 hours as needed. amLODIPine (NORVASC) 10 mg tablet Take 1 tablet by mouth once daily. C-500 500 mg tablet Take 1 tablet by mouth once daily. sucralfate (CARAFATE) 1 gram tablet Take 1 tablet by mouth twice daily. Lancets lancets Test blood sugar(s) 4 times daily. Dx: Type 2 DM - Controlled E11.9 Insulin: Yes blood sugar diagnostic (BLOOD GLUCOSE TEST) test strip Test blood sugar(s) 4 times daily. Dx: Type 2 DM - Controlled E11.9 Insulin: Yes fluorometholone (FML LIQUID FILM) 0.1 % ophthalmic suspension INSTILL 1 DROP IN BOTH EYES 1-2 TIMESPER DAY carvedilol (COREG) 12.5 mg tablet Take 1 tablet by mouth twice daily. losartan (COZAAR) 100 mg tablet Take 1 tablet by mouth once daily. ferrous sulfate 325 mg (65 mg iron) tablet Take 1 tablet by mouth twice daily with meals. metoprolol succinate ER (TOPROL XL) 50 mg 24 hr tablet Take 1 tablet by mouth once daily. SITagliptin-metFORMIN (JANUMET) 50-1,000 mg per tablet Take 1 tablet by mouth twice daily with meals. insulin aspart, niacinamide, (FIASP FLEXTOUCH U-100 INSULIN) 100 unit/mL (3 mL) pen Use 16 units sqq breakfast and 18 units sq at lunch and 18 units at dinner insulin detemir U-100 (LEVEMIR FLEXTOUCH U-100 INSULIN) 100 unit/mL (3 mL) injection pen Inject 74 Units subcutaneously daily at bedtime. alcohol swabs (BD SINGLE USE SWABS REGULAR) For use with insulin injections 4 times daily escitalopram oxalate (LEXAPRO) 10 mg tablet One pill by mouth daily. atorvastatin (LIPITOR) 40 mg tablet Take 1 tablet by mouth once daily. For cholesterol. SUMAtriptan (IMITREX) 50 mg tablet Take 1 tablet by mouth as needed for migraine headache (see administration instructions). insulin needles, DISPOSABLE, (PEN NEEDLE) 31 gauge x 5/16 Use one needle per dose. 4 per day. Insulin [place], Disposable, (UNIFINE PENTIPS) 31 gauge x 1/4 ndle use 1 (ONE) new needle with each dose, FOUR per day. loratadine (CLARITIN) 10 mg tablet Take 1 tablet by mouth once daily. hydrocortisone (PROCTOCORT) 1 % cream Apply to affected area twice daily. blood sugar diagnostic (BLOOD GLUCOSE TEST) test strip Test blood sugar(s) 4 times daily. Dx: Type 2 DM - Controlled E11.9 Insulin: Yes flash glucose scanning reader (FREESTYLE SHIVAM 10 DAY READER) 1 Each once every month. Current Facility-Administered Medications Medication Dose Route Frequency perflutren lipid microspheres 1.3 mL in NaCl (PF) 0.9% 10 mL injection (DEFINITY) INTRAVENOUS DIRECTED PRN sodium chloride 0.9 % (flush) 10 mL (BD POSIFLUSH) 10 mL INTRAVENOUS DIRECTED PRN ALLERGIES: ALLERGIES Allergen Reactions Lasix [Furosemide] Rash Latex Itching Prinivil [Lisinopri* Cough Zanaflex [Tizanidin* Shortness of Breath PAST MEDICAL HISTORY Diagnosis Date Adjustment disorder with depressed mood Esophageal reflux Essential hypertension, benign Generalized anxiety disorder HLD (hyperlipidemia) Menorrhagia Migraine without aura Morbid obesity (HCC) Nonspecific abnormal results of other endocrine function study 06/2004 Benign biopsy. Abnormally high thyroid globulin Pulmonary emboli (HCC) 09/2013 Bilateral on CTA chest. Scleritis Type II or unspecified type diabetes mellitus without mention of complication, not stated as uncontrolled PAST SURGICAL HISTORY Procedure Laterality Date CARPAL TUNNEL Right 12/10 CHOLECYSTECTOMY 11/15/2019 Dr. Ferguson EGD 03/07/2020 Dr Ferguson LIG/TRNSXJ FLP TUBE ABDL/VAG APPR UNI/BI 1988 THYROID BIOPSY US 11/2015 THYROIDECTOMY TOTAL/COMPLETE Left 12/13/2018 Dr Ferguson TOTAL THYROID LOBECTOMY UNI W/WO ISTHMUSECTOMY 01/15/07 right XCAPSL CTRC RMVL INSJ IO LENS PROSTH W/O ECP Right 06/2015 Cataract Extraction with PC IOL XCAPSL CTRC RMVL INSJ IO LENS PROSTH W/O ECP Left 07/2015 Cataract Extraction with PC IOL FAMILY HISTORY Problem Relation Age of Onset Hypertension Mother Diabetes Mother Thyroid Mother thyroidectomy Heart Mother murmur Heart Father of [place] Diabetes Brother Hypertension Brother No Known Problems Brother other (Other) Maternal Grandmother Pneumothorax Breast Cancer Maternal Aunt Metastatic to bone other (Other) Other No DVT or PE. No Known Problems Son No Known Problems Daughter Social History Tobacco Use Smoking status: Never Smokeless tobacco: Never Tobacco comments: FAther smoking in childhood home. Has lived with smoker in home, son quit about 2015. Vaping Use Vaping Use: Never used Substance Use Topics Alcohol use: No Drug use: No Reviewed current medications, allergies, past medical history, surgical history, family history andsocial history today. REVIEW OF SYSTEMS All other reviewed and negative other than HPI. VITALS: BP 152/72 Pulse 61 Wt 109.8 kg (242 lb) LMP 03/21/2005 SpO2 93% BMI 45.73 kg/m Pulse ox drops into 80s off of oxgyen. Weight is down 14 lbs on lasix. Last 4 Encounter Wt Readings: Date: Wt: 05/13/2022 116.1 kg (256 lb) 03/19/2022 107 kg (236 lb) 03/15/2022 105.7 kg (233 lb) 02/01/2022 102.1 kg (225 lb) PHYSICAL EXAMINATION: General appearance: Well appearing, alert, in no acute distress, well-hydrated, well nourished. Skin: Skin color, texture, turgor normal, no suspicious rashes or lesions Head: Normocephalic, no masses, lesions, tenderness or abnormalities Lungs: Lungs clear to auscultation. No wheezing, rhonchi, rales Heart: RRR without murmur, gallop, or rubs. No ectopy Abdomen: Normal abdominal exam, Abdomen soft, non-tender. Bowel sounds normal. No masses, organomegaly Extremities: chronic lymphedema. No increased redness or warmth. Musculoskeletal: No joint swelling, deformity, or tenderness Peripheral pulses: Normal Neuro: Negative. ASSESSMENT/PLAN: 1. Gastrointestinal hemorrhage, unspecified gastrointestinal hemorrhage type - ICD9: 578.9, ICD10: K92.2 (primary diagnosis) - reinforced etiology behind her anemia, importance of med compliance and follow up. She is to see gi. She is to bring in all of her current meds since she is unsure of what she is taking. 2. Congestive heart failure, unspecified HF chronicity, unspecified heart failure type (HCC) - ICD9: 428.0, ICD10: I50.9 - likely diastolic. Continue lasix. Took it off of her allergy list. Weight is down. Get stress as ordered. - CONSULT TO CARDIOLOGY - NT PRO BNP 3. Morbid obesity with BMI of 45.0-49.9, adult (HCC) - ICD9: 278.01, V85.42, ICD10: E66.01, Z68.42 - have discussed weight loss. 4. Type 2 diabetes mellitus with diabetic neuropathy, with long-term current use of insulin (HCC) -ICD9: 250.60, 357.2, V58.67, ICD10: E11.40, Z79.4 - stable. 5. Moderate episode of recurrent major depressive disorder (HCC) - ICD9: 296.32, ICD10: F33.1 - stable. 6. Lymphedema - ICD9: 457.1, ICD10: I89.[address] Holland 7. Hypoxia - ICD9: 799.02, ICD10: R09.02 - reinforced work restrictions including needing oxygen. See pulmonary and cardioology - NT PRO BNP 8. Morbid obesity with BMI of 40.0-44.9, adult (HCC) - ICD9: 278.01, V85.41, ICD10: E66.01, Z68.41 9. Cellulitis of left leg - ICD9: 682.6, ICD10: L03.116 - appears better. Finish antibiotic.s. 10. Iron deficiency anemia due to chronic blood loss - ICD9: 280.0, ICD10: D50.0 - check labs. 11. History of pulmonary embolism - ICD9: V12.55, ICD10: Z86.711 - as above. Barak Tiwari MD RTO in two weeks documented in this encounterC[facility] Foundation01-20-2023 Miscellaneous Notes* Telephone Encounter - Jaquan Mar RN - 05/16/2022 1:50 PM EST Left detailed vm with provider's message. * Telephone Encounter - Barak Tiwari MD - 05/16/2022 1:41 PM EST Rx sent * Telephone Encounter - Lidia Landin RN - 05/16/2022 1:26 PM EST Patient's daughter Gracie calls and states that patient came home from hospital with orders for incentive spirometer. Gracie states that one didn't get sent home with her. Daughter asking if provider can send in order to [facility]? Please review and advise, Lidia Landin RN documented in this encounterCleveland Clinic Foundation01-20-[address] Horne [facility] May 16, 2022 10:45am Note Date/Time May 16, 2022 8 :45am [facility] Medical Records Department [address] [place] [address] Instructions for Home/Discharge Instructions 05/16/22 0844 MR#: [id number] Acct: [id number] Name: JESUS ZEPEDA Rep #:[id number] : 1965 56 From: Sasha Horne MD PCP: Dr. Barak Tiwari MD Status:ADM I N Discharge Instructions Diet Discharge Diet: Low fat / Low cholesterol, 1800 Calorie Control Diet and 2000 mgSodium Diet Activity Discharge Activity: Return to Normal Activity Follow Up Care Test Results: Test results from this visit will be discussed in further detail at your follow- up appointment, if applicable. Discharge Plan Admission Admit Date/Time: 05/15/22 09:46 Primary Reason for Your Visit: Anemia Attending Provider: Sasha Horne Primary Care Provider: Barak Tiwari Consulting Providers: Mukesh Ye Instructions Additional Instructions / Restrictions: Take note of changes to your medication Continue to weigh yourself every day Follow-up with your primary care doctor within a week for repeat blood work to follow-up on kidney function Follow-up with the referrals given to you?vascular surgery, lymphedema clinic and pulmonology You are being discharged with oxygen. Continue to use your oxygen all the time. Continue to use your incentive spirometer. Continue to remain active and eat healthy. Be careful of going near open flames whilst on oxygen. Discharge Orders/Prescriptions Prescriptions: New doxycycline monohydrate 100 mg Capsule 100 mg PO BID 5 Days Qty: 10 0RF losartan 100 mg Tablet 100 mg PO DAILY 30 Days Qty: 30 0RF furosemide [Lasix] 40 mg tablet 40 mg PO DAILY 30 Days Qty: 30 0RF Continued Levemir FlexTouch U-100 Insuln 100 UNITS/ML insulin pen 74 units SC QHS atorvastatin 40 MG tablet 40 mg PO QHS ferrous sulfate [FeroSul] 325 mg (65 mg iron) Tablet 325 mg PO BID carvedilol 12.5 mg tablet 12.5 mg PO BID sumatriptan succinate 50 mg tablet 50 mg PO DAILY PRN (Reason: Migraine Headache) fluorometholone 0.1 % drops,suspension 1 drp EACH EYE DAILY PRN (Reason: EYE INFLAMMATION) levothyroxine 200 mcg tablet 200 mcg PO MOTUWETHFRSA Janumet 50-1,000 mg tablet 1 tab PO BIDCM Fiasp FlexTouch U-100 Insulin 100 unit/mL (3 mL) insulin pen 16 unit SUBCUT DAILY Fiasp FlexTouch U-100 Insulin 100 unit/mL (3 mL) insulin pen 18 unit SUBCUT BID sucralfate [Carafate] 1 gram tablet 1 g PO BID ascorbic acid (vitamin C) [Vitamin C] 500 mg capsule, extended release 500 mg PO BID albuterol sulfate [Ventolin HFA] 90 mcg/actuation HFA aerosol inhaler 2 puff inhalation Q6H PRN (Reason: Shortness Of Breath) Changed omeprazole 40 mg capsule,delayed release(DR/EC) 40 mg PO BIDCM 30 Days Qty: 60 0RF Discontinued amlodipine 10 mg tablet 10 mg PO DAILY Referrals / Follow Up: Esa Garcia MD [Med Staff - Active Staff] - 05/29/22 3:30 pm Nathaniel Carlson MD [Med Staff - Active Staff] - 06/02/22 9:15 am Barak Tiwari MD [Primary Care Provider] - Disposition Disposition (needs filled in before D/C Order can be placed): Home, Self Care 05/16/22 1045<Electronically signed by Sasha Horne MD>Sasha Horne MD CC: Dr. Mukesh Ye DO; Dr. Barak Tiwari MD ~ Signed [facility] Work Phone: 1(334) 608-720701-20-2023 Progress note Author Jesús De La Fuente [facility] May 16, 2022 12:46pm Note Date/Time May 16, 2022 1 2:46pm [facility] Medical Records Department [address] [place] [id number] Progress Note 05/16/22 0700 MR#: [id number] Acct: [id number] Name: JESUS ZEPEDA Rep #:[id number] : 1965 56 From: Jesús De La Fuente DO PCP: Dr. Barak Tiwari MD Status:ADM I N Location: [place] [address] Subjective Subjective Patient underwent upper endoscopy yesterday and was discovered to have severe bile gastritis with linear bleeding ulcers secondary to bile in the gastric bodyextending up into the gastric cardia. Objective Data Objective Data Vital Signs: Vital Signs Temp Pulse Resp BP Pulse Ox O2 Del Method O2 Flow Rate 97.8 F 70 16 138/66 H 92 Room Air 1 05/16/22 07:24 05/16/22 07:24 05/16/22 07:24 05/16/22 07:24 05/16/22 10:19 05/16/22 07:24 05/16/22 10:19 Oxygen Flow Rate (L/min) [ 2 AMBULATING with Oxygen #2] Oxygen Flow Rate (L/min) [ 1 AMBULATING with Oxygen #1] Oxygen Flow Rate (L/min) 2 Oxygen Delivery Method Room Air Weight: 255 lb Body Mass Index (BMI) 42.4 Intake & Output: Intake and Output for Last 24 Hours 05/14/22 05/15/22 05/16/22 23:59 23:59 23:59 Intake Total 600 / 950 1590 / 1590 60 / 60 Balance 600 / 950 1590 / 1590 60 / 60 Lab / Micro Data Result Diagrams: 05/16/22 06:25 05/16/22 06:25 Labs: Laboratory Results - last 24 hr 05/15/22 13:56: POC Glucose 92 05/15/22 14:42: POC Glucose 88 05/15/22 20:15: POC Glucose 125 H 05/16/22 06:13: POC Glucose 121 H 05/16/22 06:25: WBC 4.4, RBC 3.54 L, Hgb 7.9 L, Hct 26.4 L, MCV 74.6 L, MCH 22.3L, MCHC 29.9 L, RDW Std Deviation 54.2 H, RDW Coeff of Negar 20.2 H, Plt Count 280, MPV 8.9, Immature Gran % (Auto) 0.200, Neut % (Auto) 51.6, Lymph % (Auto) 25.2, Wells % (Auto) 17.7 H, Eos % (Auto) 3.9, Baso % (Auto) 1.4 H, Absolute Neuts (auto) 2.3, Absolute Lymphs (auto) 1.11, Nucleated RBC % 0, Differential Comment SCANNED, Anisocytosis 1+, Microcytosis 1+ 05/16/22 06:25: Sodium 134 L, Potassium 3.9, Chloride 103, Carbon Dioxide 22.0, Anion Gap 9, BUN 24 H, Creatinine 1.12 H, Estim Creat Clear Calc 51.07, Est GFR (MDRD) Af Amer 65, Est GFR (MDRD) Non-Af 54 L, BUN/Creatinine Ratio 21.4 H, Glucose 113 H, Calcium 8.1 L, Total Bilirubin 0.70, AST 25, ALT 19, Alkaline Phosphatase 52, Total Protein 9.3 H, Albumin 2.7 L, Globulin 6.6 H, Albumin/Globulin Ratio 0.4 L Micro: Microbiology 05/14/22 10:15 Nasal Secretion SARS-CoV-2 & FLU Antigen (Rapid) - Final Physical Exam Narrative Physical exam: General: Alert, Oriented x3, Cooperative, morbidly obese HEENT: Atraumatic Oral: Moist Mucosa Neck: Supple Lungs: Diminished to auscultation Cardiovascular: HS I+II, regular, no murmurs Abdomen: Bowel Sounds Present, Soft, Non Tender Extremities: Bilateral leg edema +2, with areas of chronic erythema from venous stasis Skin: No rashes, No breakdown Neurological: Grossly intact Psych/Mental Status: Appropriate Assessment & Plan Assessment/Plan (1) Symptomatic anemia: PLAN: Patient's hemoglobin seems stable. She will need to be DC'd on PPI therapy twice daily Carafate twice daily and cholestyramine daily. She can follow-up in office for capsule endoscopy. Charges/Coding Visit Charges Inpatient E&M: 83169 Subs Hosp L2 05/16/22 1246 <Electronically signed by Jesús De La Fuente DO> Jesús De La Fuente DO Cosigner Signature (if applicable): CC: ~ Signed [facility] Work Phone: 1([phone] 383-244601-19-[address] Horne [facility] May 15, 2022 3:03pm Note Date/Time May 15, 2022 8 :24am [facility] Medical Records Department [address] [place] [address] Progress Note - Hospitalist 05/15/22822 MR#: [id number] Acct: [id number] Name: JESUS ZEPEDA Rep #:[id number] : 1965 56 From: Sasha Horne MD PCP: Dr. Barak Tiwari MD Status:ADM I N Location: [place] [address] Subjective Subjective Follow-up on acute on chronic anemia/cellulitis/chronic lymphedema: Patient seen and examined. She is going for upper endoscopy with enteroscopy today. Denied any new complaint. She has been diuresing Objective Data Objective Data Vital Signs: Vital Signs Temp Pulse Resp BP Pulse Ox O2 Del Method 97.7 F L 67 18 148/58 H 97 Room Air 05/15/22 07:56 05/15/22 07:56 05/15/22 07:56 05/15/22 07:56 05/15/22 07:56 05/15/22 08:00 Oxygen Delivery Method Room Air Weight: 115.666 kg Body Mass Index (BMI) 42.4 Intake & Output: Intake and Output for Last 24 Hours 05/13/22 05/14/22 05/15/22 23:59 23:59 23:59 Intake Total 600 / 950 750 / 750 Balance 600 / 950 750 / 750 Lab / Micro Data Result Diagrams: 05/15/22 06:10 05/15/22 06:10 Labs: Laboratory Results - last 24 hr 05/14/22 09:50: WBC 6.1, RBC 3.20 L, Hgb 6.5 L, Hct 23.0 L, MCV 71.9 L, MCH 20.3L, MCHC 28.3 L, RDW Std Deviation 48.3 H, RDW Coeff of Negar 18.6 H, Plt Count 331, MPV 8.9, Immature Gran % (Auto) 0.500, Neut % (Auto) 58.6, Lymph % (Auto) 24.0, Wells % (Auto) 13.6 H, Eos % (Auto) 2.5, Baso % (Auto) 0.8, Absolute Neuts (auto) 3.6, Absolute Lymphs (auto) 1.47, Nucleated RBC % 0 05/14/22 09:50: Sodium 133 L, Potassium 4.1, Chloride 107, Carbon Dioxide 22.0, Anion Gap 4 L, BUN 21 H, Creatinine 1.00, Estim Creat Clear Calc 57.20, Est GFR (MDRD) Af Amer 74, Est GFR (MDRD) Non-Af 61, BUN/Creatinine Ratio 21.0 H, Glucose 100, Calcium 8.6 05/14/22 11:38: PT 15.5 H, INR 1.3, APTT 35.7 05/14/22 11:38: Blood Type O POSITIVE, Antibody Screen POSITIVE H, Antibody Identification ANTI-K 05/14/22 11:38: Crossmatch See Detail 05/14/22 11:38: Antigen Identification K ANTIGEN - NEGATIVE 05/14/22 17:16: POC Glucose 85 05/14/22 22:32: POC Glucose 84 05/15/22 06:10: WBC 4.7, RBC 3.53 L, Hgb 7.7 L, Hct 26.2 L, MCV 74.2 L, MCH 21.8L, MCHC 29.4 L, RDW Std Deviation 55.0 H, RDW Coeff of Engar 20.5 H, Plt Count 294, MPV 9.2, Immature Gran % (Auto) 0.200, Neut % (Auto) 60.4, Lymph % (Auto) 23.2, Wells % (Auto) 12.8 H, Eos % (Auto) 2.3, Baso % (Auto) 1.1 H, Absolute Neuts (auto) 2.8, Absolute Lymphs (auto) 1.09, Nucleated RBC % 0, Differential Comment SCANNED, Hypochromasia 1+, Anisocytosis 1+, Microcytosis 1+, Ovalocytes RARE 05/15/22 06:10: Sodium 133 L, Potassium 3.9, Chloride 104, Carbon Dioxide 21.0, Anion Gap 8, BUN 22 H, Creatinine 0.93, Estim Creat Clear Calc 61.50, Est GFR (MDRD) Af Amer 80, Est GFR (MDRD) Non-Af 66, BUN/Creatinine Ratio 23.6 H, Glucose 92, Calcium 8.2 L, TSH 5.21 H 05/15/22 06:10: Hemoglobin A1c 5.6 05/15/22 06:13: POC Glucose 93 Micro: Microbiology 05/14/22 10:15 Nasal Secretion SARS-CoV-2 & FLU Antigen (Rapid) - Final Radiography Diagnostic Testing: Radiology Impression Chest X-Ray 05/14/22 10:22 IMPRESSION: Mild degree of CHF superimposed on bibasilar scarring. Electronically Signed: David Burns MD at 10:41 EST , Physical Exam Narrative Physical exam: General: Alert, Oriented x3, Cooperative, morbidly obese HEENT: Atraumatic Oral: Moist Mucosa Neck: Supple Lungs: Diminished to auscultation Cardiovascular: HS I+II, regular, no murmurs Abdomen: Bowel Sounds Present, Soft, Non Tender Extremities: Bilateral leg edema +2, with areas of chronic erythema from venous stasis Skin: No rashes, No breakdown Neurological: Grossly intact Psych/Mental Status: Appropriate Assessment & Plan Assessment/Plan (1) Anemia: PLAN: Plan 1. Acute on chronic anemia/iron deficiency anemia Admitting hemoglobin 6.5; Hb today 7.7 Status post 2 units of packed RBC Will trend 2. Acute GI bleed, history of gastritis on previous endoscopy, GI consulted, patient is going for endoscopy We will follow-up on recommendations 3. Bilateral lower extremity cellulitis on the backdrop of lymphedema, present on admission Continue on doxycycline, IV cefazolin 4. Acute on chronic lymphedema, started on IV Lasix, will trend 5. Morbid obesity, BMI 42.4, complicates care, management, recovery, and prognosis 6. Hypertension, off amlodipine on account of edema Blood pressures controlled on Coreg, losartan Trend labs 7. DVT PPx- SCDs Charges/Coding Visit Charges Inpatient E&M: 68312 Subs Hosp L2 05/15/22 1503 <Electronically signed by Sasha Horne MD> Cosigner Signature (if applicable): CC: ~ Signed [facility] Work Phone: 1(162) 696-442401-19-2023 Procedure [facility] 05-15-2022 Procedure [facility]01-18-2023 Consult note Author Jesús De La Fuente [facility] May 14, 2022 5:18pm Note Date/Time May 14, 2022 5 :12pm [facility] Medical Records Department [address] [place] [address] Consultation - GI 05/14/22 1711 MR#: [id number] Acct: [id number] Name: JESUS ZPEEDA Rep #:[id number] : 1965 56 From: Jesús De La Fuente DO PCP: Dr. Barak Tiwari MD Status:ADM I NO Location: [place] [address]1 HPI Consult Data Date of Consult: 05/14/22 HPI Narrative Reason for Consultation: Anemia HPI Narrative: JESUS ZEPEDA, is a 56 F who presents to the ED with lower extremity swelling. She also complaints of shortness of breath .? Patient had a past history of pulmonary embolism a few years ago.? Her work-up in the emergency room included labs which revealed the patient to be anemic with a hemoglobin of 6.8, chemistryprofile was unremarkable except for glucose of 147. I saw her back in December 2021 for iron deficiency anemia. She underwent an upper and lower endoscopy and there was no sign of acute or chronic blood loss anemia. She was noted to have gastritis on upper endoscopy. She was supposed to follow-up for capsule endoscopy but did not follow-up in office. In the ED today she was noted to have increased pain to creatinine ratio and herhemoglobin is back down to 6.5. Previously when she was discharged her hemoglobin was 9.2 back in December. She does have a history of gastroesophageal reflux disease, hypertension, diabetes mellitus and hypothyroidism. Currently she also has multiple complaints.? Initial reports increasing left leg redness drainage for the past week.? Started after she scratched her leg andbroke the skin.? She is a diabetic.? Redness progressed.? No fevers.? She does report some aches in her upper chest and hips.? Allergies to latex and lisinopril.? In addition states nonproductive cough for 2 days increasing dyspnea and wheeze.? Denies history of COPD or asthma.? She states occasional wheezing.? No fevers.? Denies sick contacts.? She went to the PCP office yesterday states lung could had fluid in that she hasno heart failure history.? She has history of lymphedema denies being on a diuretic none was started yesterday.? Denies being started on antibiotics yesterday with her redness of her leg either.? She is concerned due to having symptomatic anemia a year ago with exertional dyspnea.? She was admitted with blood transfusion.?? [facility] Medical History Abdominal pain Anxiety Arthritis Asthma Asthma Depression Dietary restriction Easy bruising Gastric reflux High cholesterol History of edema History of pain when walking HTN (hypertension) Hyperlipidemia Hypertension Hypothyroid Insulin dependent diabetes mellitus Leg cramps Low iron Migraines Nausea Non-smoker Postoperative primary hypothyroidism Pulmonary embolism Restless legs Shortness of breath on exertion Thyroid cancer Type 2 diabetes mellitus Wears glasses Home Medications insulin detemir U-100 100 unit/mL (3 mL) subcutaneous pen (Levemir FlexTouch U- 100 Insulin) 74 units subcut QHS DIABETES 04/06/13 [History Last Taken 05/13/22] atorvastatin 40 mg tablet 40 mg PO QHS cholesterol 05/23/17 [History Last Taken 05/13/22] ferrous sulfate 325 mg (65 mg iron) tablet (FeroSul) 325 mg PO BID supplement 05/30/21 [History Last Taken 05/14/22] omeprazole 40 mg capsule,delayed release 40 mg PO DAILY GERD 10/17/21 [History Last Taken 05/14/22] albuterol sulfate 90 mcg/actuation aerosol inhaler (Ventolin HFA) 2 puff inhalation Q6H PRN Shortness Of Breath 05/14/22 [History Last Taken 05/14/22] amlodipine 10 mg tablet 10 mg PO DAILY BLOOD PRESSURE 05/14/22 [History Last Taken 05/14/22] ascorbic acid (vitamin C) 500 mg capsule,extended release (Vitamin C) 500 mg PO BID SUPPLEMENT 05/14/22 [History Last Taken 05/14/22] carvedilol 12.5 mg tablet 12.5 mg PO BID HEART 05/14/22 [History Last Taken 05/14/22] fluorometholone 0.1 % eye drops,suspension 1 drp EACH EYE DAILY PRN EYE INFLAMMATION 05/14/22 [History Last Taken 05/13/22] insulin aspart (niacinamide)(U-100) 100 unit/mL(3 mL) subcutaneous pen (Fiasp FlexTouch U-100 Insulin) 16 unit subcut DAILY DIABETES 05/14/22 [History Last Taken 05/14/22] insulin aspart (niacinamide)(U-100) 100 unit/mL(3 mL) subcutaneous pen (Fiasp FlexTouch U-100 Insulin) 18 unit subcut BID DIABETES 05/14/22 [History Last Taken 05/13/22] levothyroxine 200 mcg tablet 200 mcg PO MOTUWETHFRSA THYROID 05/14/22 [History Last Taken 05/14/22] sitagliptin phosphate 50 mg-metformin 1,000 mg tablet (Janumet) 1 tab PO BIDCM BLOOD SUGARS 05/14/22 [History Last Taken 05/14/22] sucralfate 1 gram tablet (Carafate) 1 g PO BID GERD 05/14/22 [History Last Taken 05/14/22] sumatriptan succinate 50 mg tablet 50 mg PO DAILY PRN Migraine Headache 05/14/22[History Last Taken 05/13/22] Allergy/AdvReac Type Severity Reaction Status Date / Time latex Allergy Rash Verified 05/14/22 09:16 lisinopril AdvReac Other Verified 05/14/22 09:16 Family History Aunt Breast cancer Father Diabetes Hypertension Heart disease Myocardial infarction Mother Diabetes Hypertension Surgical History History of esophagogastroduodenoscopy (EGD) History of laparoscopic cholecystectomy (~11/15/19) Hx of bilateral cataract extraction Hx of tubal ligation S/P partial thyroidectomy Social History Smoking Status: Never smoker ROS ROS Narrative Patient complains of redness over the left lower leg x3 weeks Constitutional Constitutional: Denies anorexia, change in weight, fever(s), night sweats or weakness Eyes Eyes: Denies blurry vision, change in eye color, change in vision, discharge from eye(s) or eye pain ENT HEENT: Denies epistaxis or headache(s) Cardiovascular Cardiovascular: Denies chest pain, claudication, edema or palpitations Respiratory/Chest Respiratory/Chest: Denies cough, dyspnea, hemoptysis, productive cough, shortness of breath at rest or shortness of breath with exertion Gastrointestinal Gastrointestinal: Denies abdominal pain, coffee ground emesis, constipation, diarrhea, dyspepsia, hematemesis, hematochezia, melena, nausea or vomiting Genitourinary Genitourinary: Denies dysuria, hematuria, urinary frequency, urinary hesitancy, urinary incontinence or urinary urgency Musculoskeletal Musculoskeletal: Denies back pain, joint pain, joint stiffness, joint swelling, myalgias or neck pain Neurologic Neurologic: Denies abnormal gait, abnormal speech, dizziness, focal weakness, headache(s), loss of vision, numbness, other visual disturbances, paresthesias, syncope or tingling Psychiatric Psychiatric: Denies anxiety, cognitive impairment, depression, irritability, mood swings or suicidal ideation Endocrine Endocrinology: Denies change in body appearance, cold intolerance, excessive sweating, heat intolerance, polydipsia or polyuria Hematologic/Lymphatic Hematologic/Lymphatic: Denies none, anemia, easy bleeding, easy bruising or lymphadenopathy Allergic/Immunologic Allergic/Immunologic: Denies rhinitis, urticaria, eczemia or asthma Physical Exam Const alert, oriented x3 and no apparent distress Constitutional Narrative: Patient is morbidly obese General Appearance: cooperative, well kempt and well developed Orientation / Consciousness: awake, oriented to person, oriented to place and oriented to time HEENT normocephalic and moist oral mucous membranes Eyes PERRL, EOMs intact bilaterally and conjunctivae normal Neck supple, no JVD, thyroid normal and no carotid bruits General: trachea midline Resp normal respiratory effort and clear to auscultation bilaterally Auscultation: Negative for rales, rhonchi or wheezes Cardio regular rate, regular rhythm, no murmurs, no rub and no gallops GI normal to inspection, nondistended, normoactive bowel sounds, soft to palpation,non-tender and non-distended Extremity Extremity Narrative: There are chronic lymphedematous changes over both legs noted, there is severe edema noted over the lower legs bilaterally, there is a redness area several centimeters in diameter by several centimeters in length over the left lower legon its outer aspect. Patient has palpable fluid on her skin over the left lowerleg. Skin Skin Narrative: Reddened area noted over the outer aspect of the left lower leg Neuro oriented x3, CN's II-XII intact bilaterally, no focal motor deficits and no sensory deficits noted Sensorium / Orientation: awake, alert, oriented to person, oriented to place andoriented to time Speech: speech normal Psych affect normal Lab / Micro Data Result Diagrams: 05/14/22 09:50 05/14/22 09:50 Labs: Laboratory Results - last 24 hr 05/14/22 09:50: WBC 6.1, RBC 3.20 L, Hgb 6.5 L, Hct 23.0 L, MCV 71.9 L, MCH 20.3L, MCHC 28.3 L, RDW Std Deviation 48.3 H, RDW Coeff of Negar 18.6 H, Plt Count 331, MPV 8.9, Immature Gran % (Auto) 0.500, Neut % (Auto) 58.6, Lymph % (Auto) 24.0, Wells % (Auto) 13.6 H, Eos % (Auto) 2.5, Baso % (Auto) 0.8, Absolute Neuts (auto) 3.6, Absolute Lymphs (auto) 1.47, Nucleated RBC % 0 05/14/22 09:50: Sodium 133 L, Potassium 4.1, Chloride 107, Carbon Dioxide 22.0, Anion Gap 4 L, BUN 21 H, Creatinine 1.00, Estim Creat Clear Calc 57.20, Est GFR (MDRD) Af Amer 74, Est GFR (MDRD) Non-Af 61, BUN/Creatinine Ratio 21.0 H, Glucose 100, Calcium 8.6 05/14/22 11:38: PT 15.5 H, INR 1.3, APTT 35.7 05/14/22 11:38: Blood Type O POSITIVE, Antibody Screen POSITIVE H, Antibody Identification ANTI-K 05/14/22 11:38: Crossmatch See Detail 05/14/22 11:38: Antigen Identification K ANTIGEN - NEGATIVE Micro: Microbiology 05/14/22 10:15 Nasal Secretion SARS-CoV-2 & FLU Antigen (Rapid) - Final Radiology Impression Chest X-Ray 05/14/22 10:22 IMPRESSION: Mild degree of CHF superimposed on bibasilar scarring. Electronically Signed: David Burns MD at 10:41 EST , Assessment & Plan Assessment/Plan (1) Symptomatic anemia: PLAN: She will undergo an upper endoscopy with deeper enteroscopy in 2 the proximal jejunum to see if there is any signs of acute or chronic GI blood loss in her upper GI tract. If that is negative then she will have an outpatient capsule endoscopy. She was explained alternatives, risk, benefits including outstanding bleeding, infection, sepsis, perforation, need for emergent surgery . She will have an ASA of 3. Charges/Coding Visit Charges Inpatient E&M: 51418 Init Hosp L3 05/14/22 9606 <Electronically signed by Jesús De La Fuente DO> Cosigner Signature (if applicable): CC: Dr. Barak Tiwari MD~ Signed [facility] Work Phone: 1(392) 448-572901-18-[address] Leyva [facility] May 14, 2022 5:16pm Note Date/Time May 14, 2022 9 :47am [facility] Medical Records Department [address] [place] [address] Emergency Department Summary 05/14/22 MR#: [id number] Acct: [id number] Name: JESUS ZEPEDA Rep #:[id number] : 1965 56 From: [address] PCP: Dr. Barak Tiwari MD Status:ADM I NO Location: [place] [address] HPI History of Present Illness Chief Complaint: Cellulitis Informant: patient Narrative Narrative: Presents to ED multiple complaints. Initial reports increasing left leg rednessdrainage for the past week. Started after she scratched her leg and broke the skin. She is a diabetic. Redness progressed. No fevers. She does report someaches in her upper chest and hips. Allergies to latex and lisinopril. In addition states nonproductive cough for 2 days increasing dyspnea and wheeze. Denies history of COPD or asthma. She states occasional wheezing. No fevers. Denies sick contacts. Reported went to the PCP office yesterday states lung could had fluid in that she has no heart failure history. She has history of lymphedema denies being on a diuretic none was started yesterday. Denies being started on antibiotics yesterday with her redness of her leg either. She is concerned due to having symptomatic anemia a year ago with exertional dyspnea. She was admitted with blood transfusion. She states she had upper and lower endoscopies that were negative. She denies any rectal bleeding. [facility] Medical History Abdominal pain Anxiety Arthritis Asthma Asthma Depression Dietary restriction Easy bruising Gastric reflux High cholesterol History of edema History of pain when walking HTN (hypertension) Hyperlipidemia Hypertension Hypothyroid Insulin dependent diabetes mellitus Leg cramps Low iron Migraines Nausea Non-smoker Postoperative primary hypothyroidism Pulmonary embolism Restless legs Shortness of breath on exertion Thyroid cancer Type 2 diabetes mellitus Wears glasses Home Medications insulin detemir U-100 100 unit/mL (3 mL) subcutaneous pen (Levemir FlexTouch U- 100 Insulin) 74 units subcut QHS DIABETES 04/06/13 [History Last Taken 05/13/22] atorvastatin 40 mg tablet 40 mg PO QHS cholesterol 05/23/17 [History Last Taken 05/13/22] ferrous sulfate 325 mg (65 mg iron) tablet (FeroSul) 325 mg PO BID supplement 05/30/21 [History Last Taken 05/14/22] omeprazole 40 mg capsule,delayed release 40 mg PO DAILY GERD 10/17/21 [History Last Taken 05/14/22] albuterol sulfate 90 mcg/actuation aerosol inhaler (Ventolin HFA) 2 puff inhalation Q6H PRN Shortness Of Breath 05/14/22 [History Last Taken 05/14/22] amlodipine 10 mg tablet 10 mg PO DAILY BLOOD PRESSURE 05/14/22 [History Last Taken 05/14/22] ascorbic acid (vitamin C) 500 mg capsule,extended release (Vitamin C) 500 mg PO BID SUPPLEMENT 05/14/22 [History Last Taken 05/14/22] carvedilol 12.5 mg tablet 12.5 mg PO BID HEART 05/14/22 [History Last Taken 05/14/22] fluorometholone 0.1 % eye drops,suspension 1 drp EACH EYE DAILY PRN EYE INFLAMMATION 05/14/22 [History Last Taken 05/13/22] insulin aspart (niacinamide)(U-100) 100 unit/mL(3 mL) subcutaneous pen (Fiasp FlexTouch U-100 Insulin) 16 unit subcut DAILY DIABETES 05/14/22 [History Last Taken 05/14/22] insulin aspart (niacinamide)(U-100) 100 unit/mL(3 mL) subcutaneous pen (Fiasp FlexTouch U-100 Insulin) 18 unit subcut BID DIABETES 05/14/22 [History Last Taken 05/13/22] levothyroxine 200 mcg tablet 200 mcg PO MOTUWETHFRSA THYROID 05/14/22 [History Last Taken 05/14/22] sitagliptin phosphate 50 mg-metformin 1,000 mg tablet (Janumet) 1 tab PO BIDCM BLOOD SUGARS 05/14/22 [History Last Taken 05/14/22] sucralfate 1 gram tablet (Carafate) 1 g PO BID GERD 05/14/22 [History Last Taken 05/14/22] sumatriptan succinate 50 mg tablet 50 mg PO DAILY PRN Migraine Headache 05/14/22[History Last Taken 05/13/22] Allergy/AdvReac Type Severity Reaction Status Date / Time latex Allergy Rash Verified 05/14/22 09:16 lisinopril AdvReac Other Verified 05/14/22 09:16 Family History Aunt Breast cancer Father Diabetes Hypertension Heart disease Myocardial infarction Mother Diabetes Hypertension Surgical History History of esophagogastroduodenoscopy (EGD) History of laparoscopic cholecystectomy (~11/15/19) Hx of bilateral cataract extraction Hx of tubal ligation S/P partial thyroidectomy Social History Smoking Status: Never smoker ROS ROS ED Constitutional Constitutional ED: Denies chills, fever(s) or sweats Eyes Eyes: Denies change in vision ENT ENT ED: Denies dysphagia or sore throat Cardiovascular Cardiovascular: Denies chest pain, leg edema, palpitations or racing heartbeat Respiratory/Chest Respiratory/Chest: Reports cough and dyspnea; Denies dyspnea on exertion Gastrointestinal Gastrointestinal: Denies abdominal pain, diarrhea, nausea or vomiting Genitourinary Genitourinary ED: Denies dysuria, hematuria or urinary frequency Musculoskeletal Musculoskeletal: Reports myalgias; Denies back pain, extremity pain or neck pain Integumentary Reports rash; Denies wounds Neurologic Neurologic: Denies headache(s), paresthesias or weakness EXAM Physical Exam Const Vital Signs: 05/14/22 09:17 Temperature 97.7 F L Temperature Source Temporal Pulse Rate 62 Respiratory Rate 17 Blood Pressure 169/68 H Blood Pressure Mean 101 Pulse Ox 93 Oxygen Delivery Method Room Air Positive well nourished and well developed General Appearance ED: well developed and NAD HEENT Reports moist mucous membranes normocephalic and atraumatic Eyes PERRL, EOMs intact bilaterally and conjunctivae normal General Eye ED: Yes normal appearance of both eyes Neck no lymphadenopathy and supple General: Negative for tenderness Chest Wall Chest: Negative for tenderness Resp normal respiratory effort and normal air movement Effort and Inspection: symmetric chest movement; Negative for respiratory distress Cardio regular rate, regular rhythm and no murmurs Peripheral Pulses: pulses 2+ throughout GI normal to inspection, nondistended, normoactive bowel sounds and non-tender Palpation: Negative for guarding or rebound tenderness present Back/Spine no CVA tenderness and no thoracic nor lumbar tenderness Extremity normal to inspection Extremity Narrative: Chronic lymphedema no calf or medial thigh tenderness. Pulses intact distally. General Extremety ED: Yes edema; Negative for tenderness General Extremity: edema Neuro oriented x3 and no sensory deficits noted Sensorium / Orientation: awake and alert Skin Skin Narrative: Left lower leg: Distal lateral leg there is erythema patch with healing excoriation clear drainage. No crepitus. That area was distally warm to palpation there is redness proximally laterally up to the proximal leg there is no joint involvement. This area was cool to palpation. No induration is no fluctuance. MDM MDM MDM Narrative Medical decision making narrative: Patient nontoxic. Left lower leg examination with differentials cellulitis, no clinical DVT concerns. Chronic lymphedema of this area. Additional differential for upper respiratory symptoms could be symptomatic anemia viral syndrome COVID versus flu versus pneumonia. She has no PE risk factors. We will check COVID influenza chest x-ray and labs. Patient will require antibiotics for her cellulitis. Work-up with labs findings hemoglobin 6.5. Creatinine 1. She declined rectal exam. Patient states she did not want to stay in the hospital, for discussed with GI Dr. Friend, recommend 2 units of blood to be given with close follow-up with him for capsule study. Chest x-ray 2 views interpreted evaluate slight tinge and patient is no CHF history. Plan for blood for slow transfusion and monitoring of symptoms. Patient was treated with oral Keflex and Bactrim. Normal creatinine. However blood bank called patient's antibodies and her blood therefore would need special blood that would not be available immediately. Patient agreed to stay. I spoke with hospitalist Dr. Ye for admission. Lab Data Attestation: I reviewed the patient's lab results. Labs: Laboratory Results - last 24 hr 05/14/22 05/14/22 05/14/22 09:50 09:50 11:38 WBC 6.1 RBC 3.20 L Hgb 6.5 L Hct 23.0 L MCV 71.9 L MCH 20.3 L MCHC 28.3 L RDW Std Deviation 48.3 H RDW Coeff of Negar 18.6 H Plt Count 331 MPV 8.9 Immature Gran % (Auto) 0.500 Neut % (Auto) 58.6 Lymph % (Auto) 24.0 Wells % (Auto) 13.6 H Eos % (Auto) 2.5 Baso % (Auto) 0.8 Absolute Neuts (auto) 3.6 Absolute Lymphs (auto) 1.47 Nucleated RBC % 0 PT 15.5 H INR 1.3 APTT 35.7 Sodium 133 L Potassium 4.1 Chloride 107 Carbon Dioxide 22.0 Anion Gap 4 L BUN 21 H Creatinine 1.00 Estim Creat Clear Calc 57.20 Est GFR (MDRD) Af Amer 74 Est GFR (MDRD) Non-Af 61 BUN/Creatinine Ratio 21.0 H Glucose 100 Calcium 8.6 Blood Type Antibody Screen Antibody Identification Antigen Identification Crossmatch 05/14/22 05/14/22 05/14/22 11:38 11:38 11:38 WBC RBC Hgb Hct MCV MCH MCHC RDW Std Deviation RDW Coeff of Negar Plt Count MPV Immature Gran % (Auto) Neut % (Auto) Lymph % (Auto) Wells % (Auto) Eos % (Auto) Baso % (Auto) Absolute Neuts (auto) Absolute Lymphs (auto) Nucleated RBC % PT INR APTT Sodium Potassium Chloride Carbon Dioxide Anion Gap BUN Creatinine Estim Creat Clear Calc Est GFR (MDRD) Af Amer Est GFR (MDRD) Non-Af BUN/Creatinine Ratio Glucose Calcium Blood Type O POSITIVE Antibody Screen POSITIVE H Antibody Identification ANTI-K Antigen Identification K ANTIGEN - NEGATIVE Crossmatch See Detail Radiography Diagnostic Testing: Clinical Impression(s) from Imaging Studies Chest X-Ray 05/14/22 10:22 IMPRESSION: Mild degree of CHF superimposed on bibasilar scarring. Electronically Signed: David Burns MD at 10:41 EST , Discharge Plan Dx/Rx/DC Orders Clinical Impression: Symptomatic anemia, Cellulitis of left leg, Type 2 diabetes mellitus Disposition Disposition: Acute Care Hospital [facility] Discharge Date/Time: 05/14/22 15:53 What to do if you have Problems For any increased pain, shortness of breath, bleeding, nausea or vomiting, chestpain, or any unexpected problems, contact your Primary Care Provider. Call [facility] ([phone]) or report to the closest Emergency Room. Call 911 if necessary. 05/14/22 1716 <Electronically signed by Gio Way> Cosigner Signature (if applicable): CC: Dr. Barak Tiwari MD ~ Signed [facility] Work Phone: 1(639) 457-343701-18-2023 History and physical note Author Dr. Ye [facility] May 14, 2022 3:35pm Note Date/Time May 14, 2022 3 :06pm [facility] Medical Records Department [address] [address] H&P Exam - Hospitalist 05/14/22 1505 MR#: [id number] Acct: [id number] Name: JESUS ZEPEDA Rep #:[id number] : 1965 56 From: Mukesh Ye DO PCP: Dr. Barak Tiwari MD Status:ADM I NO [place] [facility] [place] [id number] HPI - General General Date of Admission: 05/14/22 Date of Service: 05/14/22 Chief Complaint: Anemia HPI Narrative JESUS ZEPEDA, is a 56 F who presents to the emergency room at [facility] for evaluation of a reddened area over her left lower leg, she also complains of fluid retention in her lower legs which is chronic-she hasa diagnosis of lymphedema, she is not presently on a diuretic. Patient denies any fevers or chills. Work-up in the emergency room included labs which showed her to be severely anemic with a hemoglobin of 6.5, MCV was low at 71.9, sodium was slightly low at133, BUN was 21. Patient's white blood cell count was unremarkable, patient wasafebrile. Patient has had a history of anemia and is seeing Dr. De La Fuente regarding a work- upfor the anemia, she has had blood transfusions before. Patient will be placed into observation status on MedSurg 3, she will be given 2 units of packed red blood cells-according to the emergency room physician, patient has antibodies which makes it difficult for the patient to obtain blood transfusions. I have decided to place the patient on oral antibiotics for the reddened area over her left lower leg and place her on IV Lasix to try to get rid of some of the fluid in her lower legs. I feel she will need to go home on a diuretic. [facility] Medical History Abdominal pain Anxiety Arthritis Asthma Asthma Depression Dietary restriction Easy bruising Gastric reflux High cholesterol History of edema History of pain when walking HTN (hypertension) Hyperlipidemia Hypertension Hypothyroid Insulin dependent diabetes mellitus Leg cramps Low iron Migraines Nausea Non-smoker Postoperative primary hypothyroidism Pulmonary embolism Restless legs Shortness of breath on exertion Thyroid cancer Type 2 diabetes mellitus Wears glasses Home Medications insulin detemir U-100 100 unit/mL (3 mL) subcutaneous pen (Levemir FlexTouch U- 100 Insulin) 74 units subcut QHS DIABETES 04/06/13 [History Last Taken 05/13/22] atorvastatin 40 mg tablet 40 mg PO QHS cholesterol 05/23/17 [History Last Taken 05/13/22] ferrous sulfate 325 mg (65 mg iron) tablet (FeroSul) 325 mg PO BID supplement 05/30/21 [History Last Taken 05/14/22] omeprazole 40 mg capsule,delayed release 40 mg PO DAILY GERD 10/17/21 [History Last Taken 05/14/22] albuterol sulfate 90 mcg/actuation aerosol inhaler (Ventolin HFA) 2 puff inhalation Q6H PRN Shortness Of Breath 05/14/22 [History Last Taken 05/14/22] amlodipine 10 mg tablet 10 mg PO DAILY BLOOD PRESSURE 05/14/22 [History Last Taken 05/14/22] ascorbic acid (vitamin C) 500 mg capsule,extended release (Vitamin C) 500 mg PO BID SUPPLEMENT 05/14/22 [History Last Taken 05/14/22] carvedilol 12.5 mg tablet 12.5 mg PO BID HEART 05/14/22 [History Last Taken 05/14/22] fluorometholone 0.1 % eye drops,suspension 1 drp EACH EYE DAILY PRN EYE INFLAMMATION 05/14/22 [History Last Taken 05/13/22] insulin aspart (niacinamide)(U-100) 100 unit/mL(3 mL) subcutaneous pen (Fiasp FlexTouch U-100 Insulin) 16 unit subcut DAILY DIABETES 05/14/22 [History Last Taken 05/14/22] insulin aspart (niacinamide)(U-100) 100 unit/mL(3 mL) subcutaneous pen (Fiasp FlexTouch U-100 Insulin) 18 unit subcut BID DIABETES 05/14/22 [History Last Taken 05/13/22] levothyroxine 200 mcg tablet 200 mcg PO MOTUWETHFRSA THYROID 05/14/22 [History Last Taken 05/14/22] sitagliptin phosphate 50 mg-metformin 1,000 mg tablet (Janumet) 1 tab PO BIDCM BLOOD SUGARS 05/14/22 [History Last Taken 05/14/22] sucralfate 1 gram tablet (Carafate) 1 g PO BID GERD 05/14/22 [History Last Taken 05/14/22] sumatriptan succinate 50 mg tablet 50 mg PO DAILY PRN Migraine Headache 05/14/22[History Last Taken 05/13/22] Allergy/AdvReac Type Severity Reaction Status Date / Time latex Allergy Rash Verified 05/14/22 09:16 lisinopril AdvReac Other Verified 05/14/22 09:16 Family History Aunt Breast cancer Father Diabetes Hypertension Heart disease Myocardial infarction Mother Diabetes Hypertension Surgical History History of esophagogastroduodenoscopy (EGD) History of laparoscopic cholecystectomy (~11/15/19) Hx of bilateral cataract extraction Hx of tubal ligation S/P partial thyroidectomy Social History Smoking Status: Never smoker ROS ROS Narrative Patient complains of redness over the left lower leg x3 weeks Constitutional Constitutional: Denies anorexia, change in weight, fever(s), night sweats or weakness Eyes Eyes: Denies blurry vision, change in eye color, change in vision, discharge from eye(s) or eye pain ENT HEENT: Denies epistaxis or headache(s) Cardiovascular Cardiovascular: Denies chest pain, claudication, edema or palpitations Respiratory/Chest Respiratory/Chest: Denies cough, dyspnea, hemoptysis, productive cough, shortness of breath at rest or shortness of breath with exertion Gastrointestinal Gastrointestinal: Denies abdominal pain, coffee ground emesis, constipation, diarrhea, dyspepsia, hematemesis, hematochezia, melena, nausea or vomiting Genitourinary Genitourinary: Denies dysuria, hematuria, urinary frequency, urinary hesitancy, urinary incontinence or urinary urgency Musculoskeletal Musculoskeletal: Denies back pain, joint pain, joint stiffness, joint swelling, myalgias or neck pain Neurologic Neurologic: Denies abnormal gait, abnormal speech, dizziness, focal weakness, headache(s), loss of vision, numbness, other visual disturbances, paresthesias, syncope or tingling Psychiatric Psychiatric: Denies anxiety, cognitive impairment, depression, irritability, mood swings or suicidal ideation Endocrine Endocrinology: Denies change in body appearance, cold intolerance, excessive sweating, heat intolerance, polydipsia or polyuria Hematologic/Lymphatic Hematologic/Lymphatic: Denies none, anemia, easy bleeding, easy bruising or lymphadenopathy Allergic/Immunologic Allergic/Immunologic: Denies rhinitis, urticaria, eczemia or asthma Vital Signs Vital Signs Vital Signs: 05/14/22 09:17 Temperature 97.7 F L Temperature Source Temporal Pulse Rate 62 Respiratory Rate 17 Blood Pressure 169/68 H Blood Pressure Mean 101 Pulse Ox 93 Oxygen Delivery Method Room Air Weight Weight: 115.666 kg Body Mass Index (BMI) 42.4 Physical Exam Const alert, oriented x3 and no apparent distress Constitutional Narrative: Patient is morbidly obese General Appearance: cooperative, well kempt and well developed Orientation / Consciousness: awake, oriented to person, oriented to place and oriented to time HEENT normocephalic and moist oral mucous membranes Eyes PERRL, EOMs intact bilaterally and conjunctivae normal Neck supple, no JVD, thyroid normal and no carotid bruits General: trachea midline Resp normal respiratory effort and clear to auscultation bilaterally Auscultation: Negative for rales, rhonchi or wheezes Cardio regular rate, regular rhythm, no murmurs, no rub and no gallops GI normal to inspection, nondistended, normoactive bowel sounds, soft to palpation,non-tender and non-distended Extremity Extremity Narrative: There are chronic lymphedematous changes over both legs noted, there is severe edema noted over the lower legs bilaterally, there is a redness area several centimeters in diameter by several centimeters in length over the left lower legon its outer aspect. Patient has palpable fluid on her skin over the left lowerleg. Skin Skin Narrative: Reddened area noted over the outer aspect of the left lower leg Neuro oriented x3, CN's II-XII intact bilaterally, no focal motor deficits and no sensory deficits noted Sensorium / Orientation: awake, alert, oriented to person, oriented to place andoriented to time Speech: speech normal Psych affect normal Results Lab / Micro Data Result Diagrams: 05/14/22 09:50 05/14/22 09:50 Labs: Laboratory Results - last 24 hr 05/14/22 09:50: WBC 6.1, RBC 3.20 L, Hgb 6.5 L, Hct 23.0 L, MCV 71.9 L, MCH 20.3L, MCHC 28.3 L, RDW Std Deviation 48.3 H, RDW Coeff of Negar 18.6 H, Plt Count 331, MPV 8.9, Immature Gran % (Auto) 0.500, Neut % (Auto) 58.6, Lymph % (Auto) 24.0, Wells % (Auto) 13.6 H, Eos % (Auto) 2.5, Baso % (Auto) 0.8, Absolute Neuts (auto) 3.6, Absolute Lymphs (auto) 1.47, Nucleated RBC % 0 05/14/22 09:50: Sodium 133 L, Potassium 4.1, Chloride 107, Carbon Dioxide 22.0, Anion Gap 4 L, BUN 21 H, Creatinine 1.00, Estim Creat Clear Calc 57.20, Est GFR (MDRD) Af Amer 74, Est GFR (MDRD) Non-Af 61, BUN/Creatinine Ratio 21.0 H, Glucose 100, Calcium 8.6 05/14/22 11:38: PT 15.5 H, INR 1.3, APTT 35.7 05/14/22 11:38: Blood Type O POSITIVE, Antibody Screen POSITIVE H, Antibody Identification ANTI-K 05/14/22 11:38: Crossmatch See Detail 05/14/22 11:38: Antigen Identification K ANTIGEN - NEGATIVE Micro: Microbiology 05/14/22 10:15 Nasal Secretion SARS-CoV-2 & FLU Antigen (Rapid) - Final Radiology Impression Chest X-Ray 05/14/22 10:22 IMPRESSION: Mild degree of CHF superimposed on bibasilar scarring. Electronically Signed: David Burns MD at 10:41 EST , Assessment & Plan Assessment/Plan (1) Anemia: PLAN: Plan 1. Acute on chronic anemia-patient is asymptomatic at this time, she will be placed in observation status on MedSurg 3, she will receive 2 units of packed red blood cells. Due to the fact she has not had any endoscopy since December of last year, I contacted gastroenterology and they will see the patient and perform an EGD tomorrow. I will place the patient on oral Protonix, I do not think she is actively bleeding at the at this time, I will get a serum iron level on the patient. #2 cellulitis of the left lower leg-this is not extensive, I think the patient can be treated with oral antibiotics and topical antifungal cream #3 chronic lymphedema of the legs-patient will need diuresis with IV Lasix due to fluid retention in her lower legs, BMP will be rechecked tomorrow #4 morbid obesity-complicates care, management, recovery, and prognosis #5 essential hypertension-it may be prudent to switch the patient from amlodipine to another hypertensive agent due to her leg edema, she has listed anallergy to lisinopril, I will need to verify what kind of reaction she had on this medication. Total clinical time spent by myself addressing the patient's medical issues, reviewing the patient's data, and collaborating with patient's care team: 55 minutes Charges/Coding Visit Charges Inpatient E&M: 13616 Init Hosp L2 05/14/22 1535 <Electronically signed by Mukesh Ye DO> Cosigner Signature (if applicable): CC: Dr. Mukesh Ye DO; Dr. Barak Tiwari MD~ Signed [facility] Work Phone: [phone]) 487-342001-17-2023 History of Present illness Narrative* M Leo Latif PA-C - 05/13/2022 3:58 PM EST 56 year old female with c/o morbid obesity, chronic PE, DM2, moderate depression pain and swelling left lateral ankle which started after scratching skin about 2 weeks ago but identifies off and on. Area is painful, unable to touch it. No fever or chills. Puttng neosporin on area. Has been SOB quite awhile with exertion on walking. Can't walk more than 10 feet without heavy breathing. No chest pain. Aggravated because can't catch breath. Has to sleep sitting up. 03/15/2022 sawDr. Tiwari dx bronchitis , started doxycycline 100mg twice a day. CXR mild right infrahilar infiltrate new. Saw Dr. Tiwari 03/19/2022 for bronchitis and pneumonia. Was to have recheck CXR in 3 weeks not completed. Was set up for nuclear stress but had taken all her meds including beta blockers and was also too SOB to use treadmill. Has not followed up on either. Weight increase 31lbs since 02/01/2022. Hemoglobin A1C (%) Date Value 12/18/2021 6.0 07/12/2021 6.1 10/01/2020 6.3 04/12/2020 6.1 ) HISTORIES FAMILY HISTORY Problem Relation Age of Onset Hypertension Mother Diabetes Mother Thyroid Mother thyroidectomy Heart Mother murmur Heart Father of [place] Diabetes Brother Hypertension Brother No Known Problems Brother other (Other) Maternal Grandmother Pneumothorax Breast Cancer Maternal Aunt Metastatic to bone other (Other) Other No DVT or PE. No Known Problems Son No Known Problems Daughter PAST MEDICAL HISTORY Diagnosis Date Adjustment disorder with depressed mood Esophageal reflux Essential hypertension, benign Generalized anxiety disorder HLD (hyperlipidemia) Menorrhagia Migraine without aura Morbid obesity (HCC) Nonspecific abnormal results of other endocrine function study 06/2004 Benign biopsy. Abnormally high thyroid globulin Pulmonary emboli (HCC) 09/2013 Bilateral on CTA chest. Scleritis Type II or unspecified type diabetes mellitus without mention of complication, not stated as uncontrolled PAST SURGICAL HISTORY Procedure Laterality Date CARPAL TUNNEL Right 12/10 CHOLECYSTECTOMY 11/15/2019 Dr. Ferguson EGD 03/07/2020 Dr Ferguson LIG/TRNSXJ FLP TUBE ABDL/VAG APPR UNI/BI 1988 THYROID BIOPSY US 11/2015 THYROIDECTOMY TOTAL/COMPLETE Left 12/13/2018 Dr Ferguson TOTAL THYROID LOBECTOMY UNI W/WO ISTHMUSECTOMY 01/15/07 right XCAPSL CTRC RMVL INSJ IO LENS PROSTH W/O ECP Right 06/2015 Cataract Extraction with PC IOL XCAPSL CTRC RMVL INSJ IO LENS PROSTH W/O ECP Left 07/2015 Cataract Extraction with PC IOL Social History Tobacco Use Smoking status: Never Smokeless tobacco: Never Tobacco comments: FAther smoking in childhood home. Has lived with smoker in home, son quit about 2015. Vaping Use Vaping Use: Never used Substance Use Topics Alcohol use: No Drug use: No ACTIVE PROBLEM LIST CANCER M->Z THYROID Type 2 Diabetes Mellitus With Diabetic Neuropathy, With Long-Term Current Use of Insulin (Hcc) Menorrhagia Essential Hypertension, Benign Gastroesophageal Reflux Disease Without Esophagitis Hld (Hyperlipidemia) Multinodular Goiter (Nontoxic) Lymphedema Echocardiogram Abnormal Chronic Pulmonary Embolism Without Acute Cor Pulmonale (Hcc) Moderate Episode of Recurrent Major Depressive Disorder (Hcc) Morbid Obesity With Bmi of 40.0-44.9, Adult (Hcc) Anemia Neuropathy Current Outpatient Medications Medication Sig Dispense Refill levothyroxine (SYNTHROID) 200 mcg tablet Take 1 tablet by mouth once daily. Thursday through Thursday, 1/2 tab on Thursday 90 tablet 3 omeprazole (PRILOSEC) 40 mg capsule Take 1 capsule by mouth once daily. 90 capsule 1 albuterol HFA (PROVENTIL HFA, VENTOLIN HFA) 90 mcg/actuation inhaler Inhale 2 Puffs as instructed every 6 hours as needed. 1 Each 3 amLODIPine (NORVASC) 10 mg tablet Take 1 tablet by mouth once daily. 90 tablet 3 C-500 500 mg tablet Take 1 tablet by mouth once daily. 30 tablet 5 sucralfate (CARAFATE) 1 gram tablet Take 1 tablet by mouth twice daily. 60 tablet 5 Lancets lancets Test blood sugar(s) 4 times daily. Dx: Type 2 DM - Controlled E11.9 Insulin: Yes 100 Each 5 blood sugar diagnostic (BLOOD GLUCOSE TEST) test strip Test blood sugar(s) 4 times daily. Dx: Type 2 DM - Controlled E11.9 Insulin: Yes 100 Strip 5 fluorometholone (FML LIQUID FILM) 0.1 % ophthalmic suspension INSTILL 1 DROP IN BOTH EYES 1-2 TIMESPER DAY carvedilol (COREG) 12.5 mg tablet Take 1 tablet by mouth twice daily. 60 tablet 5 losartan (COZAAR) 100 mg tablet Take 1 tablet by mouth once daily. 90 tablet 3 ferrous sulfate 325 mg (65 mg iron) tablet Take 1 tablet by mouth twice daily with meals. 180 tablet 3 metoprolol succinate ER (TOPROL XL) 50 mg 24 hr tablet Take 1 tablet by mouth once daily. 90 tablet3 SITagliptin-metFORMIN (JANUMET) 50-1,000 mg per tablet Take 1 tablet by mouth twice daily with meals. 180 tablet 3 insulin aspart, niacinamide, (FIASP FLEXTOUCH U-100 INSULIN) 100 unit/mL (3 mL) pen Use 16 units sqq breakfast and 18 units sq at lunch and 18 units at dinner 15 Pen 3 alcohol swabs (BD SINGLE USE SWABS REGULAR) For use with insulin injections 4 times daily 400 Each 0 escitalopram oxalate (LEXAPRO) 10 mg tablet One pill by mouth daily. 90 tablet 3 atorvastatin (LIPITOR) 40 mg tablet Take 1 tablet by mouth once daily. For cholesterol. 90 tablet 3 SUMAtriptan (IMITREX) 50 mg tablet Take 1 tablet by mouth as needed for migraine headache (see administration instructions). 9 tablet 11 insulin needles, DISPOSABLE, (PEN NEEDLE) 31 gauge x 5/16 Use one needle per dose. 4 per day. 120 Each 11 Insulin [place], Disposable, (UNIFINE PENTIPS) 31 gauge x 1/4 ndle use 1 (ONE) new needle with each dose, FOUR per day. 400 Each 11 loratadine (CLARITIN) 10 mg tablet Take 1 tablet by mouth once daily. 30 tablet 11 hydrocortisone (PROCTOCORT) 1 % cream Apply to affected area twice daily. 56 g 0 blood sugar diagnostic (BLOOD GLUCOSE TEST) test strip Test blood sugar(s) 4 times daily. Dx: Type 2 DM - Controlled E11.9 Insulin: Yes 400 Strip 5 flash glucose scanning reader (FREESTYLE SHIVAM 10 DAY READER) 1 Each once every month. 3 Each 3 insulin detemir U-100 (LEVEMIR FLEXTOUCH U-100 INSULIN) 100 unit/mL (3 mL) injection pen Inject 74 Units subcutaneously daily at bedtime. 24 Pen 3 Current Facility-Administered Medications Medication Dose Route Frequency Provider Last Rate Last Admin perflutren lipid microspheres 1.3 mL in NaCl (PF) 0.9% 10 mL injection (DEFINITY) INTRAVENOUS DIRECTED PRN Barak Tiwari MD sodium chloride 0.9 % (flush) 10 mL (BD POSIFLUSH) 10 mL INTRAVENOUS DIRECTED PRN Barak Tiwari MD HEPATITIS B(1 of 3 - 3-dose series) Never done HIV SCREENING Never done BP CONTROLLED (<130/80) Never done COVID-19 VACCINE(3 - Booster for Moderna series) due on 12/04/2020 LDL CHOLESTEROL due on 04/12/2021 DILATED RETINAL EXAM due on 10/02/2021 URINE ALBUMIN:CREATININE RATIO due on 01/29/2022 COLORECTAL CANCER SCREENING due on 02/08/2022 DIABETIC FOOT EXAM due on 03/27/2022 MAMMOGRAM due on 07/12/2022 EXAM: BP 154/86 Pulse 62 Wt 116.1 kg (256 lb) LMP 03/21/2005 SpO2 92% BMI 48.37 kg/m Pleasant obese in no acute distress. Alert and oriented all spheres. Normal affect and cognition. Speech normal. No deficits to learning or comprehension. Skin warm, dry, pink to lips and nailbeds. Normal turgor. Respirations regular and unlabored. HEENT: NCAT. No scleral icterus or conjunctival injection. TM's clear. Nose and oropharynx free from injection or lesion. Oral membranes moist and pink. No cervical lymph nodes. Chest with soft bubbling rales bilaterally, no dullness to percussion. Heart RRR with midsystolic crescendo murmur 06/30. Extrem: no clubbing or cyanosis. Edema: tight legs, noon-pitting. Open wound left lateral ankle moist with serous fluid. 8 cm lymphangitic band from wound up lateral calf to knee. No inguinal nodes. . Extremities are warm and pink with prompt capillary refill. ASSESSMENT/PLAN: 1. Lymphangitis, acute, lower leg - ICD9: 682.6, ICD10: L03.129 (primary diagnosis) 2. Cellulitis of left lower extremity - ICD9: 682.6, ICD10: L03.116 - report Called to Dr. Elizabeth [facility] ED. 3. SHEIKH (dyspnea on exertion) - ICD9: 786.09, ICD10: R06.09 Weight increasing Suspect mild CHF though recent pneumonia, 03/17/2022 right infrahilar infiltrate new Reviewed with ER Dr. Elizabeth as concern as above Jaquan Latif PA-C documented in this encounterC[facility] Foundation12-19-2022 History of Present illness Narrative* Kaylie Lagos RN - 04/14/2022 4:31 PM EST Pt presented for stress test appointment. Pt took all medications in the morning, including 2 beta blockers and calcium channel ashley. Discussed POC with Dr. Stein, plan to reschedule pt d/t noncompliance with medication restrictions. Per Dr. Stein recommends a Lexiscan test. documented in this encounterCleveland Clinic Foundation12-14-2022 Miscellaneous Notes* Telephone Encounter - Kaylie Lagos RN - 04/09/2022 1:41 PM EST Call to pt to review below instructions for stress test appt 04/14/22. LVM to contact office You are scheduled for a stress test on 04/14/22. Please follow below instructions: *NOTHING BY MOUTH 4 HOURS prior to this test. (you may have sips of water) *NO CAFFEINE FOR 24 HOURS PRIOR TO TESTING (including TEA even decaf, COFFEE- even decaf, CHOCOLATE, CHEPE- even decaf) *Do NOT take MEDICATIONS CONTAINING CAFFEINE/XANTHINE for 24 HOURS prior to testing: Theophylline, Trental, Excedrin, Anacin, Goody Powders, No Doz, Vivarin, Midol, Diurex, Fiorinal, Fioricet, Esgic (butalbital) *Do NOT take Calcium Channel Blockers 24 HOURS prior to test: *Do NOT take Beta blockers 24 HOURS prior to test UNLESS your doctor tells you otherwise: Bisoprolol (Zebeta, ZIAC), Metoprolol (Lopressor, Toprol, Lopressor HCT), Nadolol ( Corgard, Corizide), Nebivolol (Bystolic), Pindolol (Visken), Propranolol (Inderal, Inderide), Carvedilol (Coreg, Coreg CR), Labetalol (Trandate) Atenolol (Tenormin, Tenoretic) Acebutolol (Sectral). Medications on your list you should hold for 24 HOURS: Amlodipine (Norvasc), Carvedilol (Coreg), and Metoprolol. *Do NOT use the following medications 48 HOURS prior to this test: Viagra(Sildenafil citrate), Cialis(Tadalafil), Vardenafil (Levitra, Stanyx), Avanfil (Stendra). *Do not take any of these meds prior to test unless provider directs you otherwise; Nitroglycerine (ex:Deponit, Nitrostat) Isosorbide (ex:Isordil, Sorbitrate,Imdur,Ismo). *All other medications may be taken as you normally would. *Guidelines for Diabetics: If you take insulin to control your blood sugar, ask you physician what amount you should take the day of the test. If you take pills to control blood sugar, on the day of the test, do NOT take them until AFTER the test. *FAILURE TO FOLLOW THESE INSTRUCTIONS WILL RESULT IN HAVING TO RESCHEDULE THE TEST. *Please wear comfortable clothes with a short-sleeved shirt and comfortable walking shoes. *If you use an inhaler, bring it along with you just in case Please check in on the first floor at Radiology: [address]; [place] [address] * If you need to cancel or reschedule this test or have any questions regarding this test, please call [phone]. documented in this encounterCleveland Clinic Foundation12-09-2022 Miscellaneous Notes* Telephone Encounter - Sanjuanita Rust Pss - 04/04/2022 3:52 PM EST Patient has been identified by name and date of : Yes Last office visit in this department: 03/19/2022 RX INSTRUCTIONS: Patient aware RX will be sent to pharmacy. No need to notify patient. Patient requesting higher dose for prilosec. States she is still having heart burn. Patient phones requesting refills as follows: Requested Prescriptions Pending Prescriptions Disp Refills levothyroxine (SYNTHROID) 200 mcg tablet 90 tablet 3 Sig: Take 1 tablet by mouth once daily. Jah through Thursday, 1/2 tab on Thursday omeprazole (PRILOSEC) 40 mg capsule 90 capsule 1 Sig: Take 1 capsule by mouth once daily. Please review and advise. Sanjuanita Rust Pss documented in this encounterCleveland Clinic Foundation11-23-2022 Instructions* Patient Instructions* Barak Tiwari MD - 03/19/2022 4:14 PM EST Call in with your list of meds. Bp check in one month and do chest xray and labs. documented in this encounterCleveland Clinic Foundation11-23-2022 History of Present illness Narrative* Barak Tiwari MD - 03/19/2022 3:53 PM EST Patient presents with: Follow Up: Bronchitis/pneumonia HPI: Patient presents today for office visit for Bronchitis/pneumonia: Still with some cough that at times is productive. Mild shortness of breath but just when she is up and moving. Needs refill on inhaler. Denies any fevers. Throat is still a little scratchy. She is unsure if she is taking all of her meds she is suppose to with her bp. Will have her call itin to adjust. Note was copied and pasted, without alteration from: last ov ENT: Patient complains of sinus pressure. Duration: 1 month or longer Fever: No. Headache: No. Sore throat: No. Ear pain: Left ear feel plugged. Nasal drainage: Yes. Has post nasal drainage. Cough: Yes. Shortness of breath: while outside in the cold. Nausea: No. Vomiting: No. Diarrhea: No. Previous treatment: Treated with Augmentin on 02/25/22. Use coricidin hbp Still feels it in her chest a little. Has stress test in next month. Blood counts are stable. Seeing gi soon per patient. Seeing Dr. De La Fuente. No black or bloody stools. Remains on iron Chest xray: IMPRESSION: Right infrahilar infiltrate is new. Follow-up to document resolution recommended MEDICATIONS: Current Outpatient Medications Medication Sig amLODIPine (NORVASC) 10 mg tablet Take 1 tablet by mouth once daily. C-500 500 mg tablet Take 1 tablet by mouth once daily. sucralfate (CARAFATE) 1 gram tablet Take 1 tablet by mouth twice daily. doxycycline monohydrate 100 mg tablet Take 1 tablet by mouth twice daily for 10 days. Lancets lancets Test blood sugar(s) 4 times daily. Dx: Type 2 DM - Controlled E11.9 Insulin: Yes blood sugar diagnostic (BLOOD GLUCOSE TEST) test strip Test blood sugar(s) 4 times daily. Dx: Type 2 DM - Controlled E11.9 Insulin: Yes erythromycin (ROMYCIN) 5 mg/gram (0.5 %) ophthalmic ointment fluorometholone (FML LIQUID FILM) 0.1 % ophthalmic suspension INSTILL 1 DROP IN BOTH EYES 1-2 TIMESPER DAY carvedilol (COREG) 12.5 mg tablet Take 1 tablet by mouth twice daily. losartan (COZAAR) 100 mg tablet Take 1 tablet by mouth once daily. ferrous sulfate 325 mg (65 mg iron) tablet Take 1 tablet by mouth twice daily with meals. metoprolol succinate ER (TOPROL XL) 50 mg 24 hr tablet Take 1 tablet by mouth once daily. SITagliptin-metFORMIN (JANUMET) 50-1,000 mg per tablet Take 1 tablet by mouth twice daily with meals. insulin aspart, niacinamide, (FIASP FLEXTOUCH U-100 INSULIN) 100 unit/mL (3 mL) pen Use 16 units sqq breakfast and 18 units sq at lunch and 18 units at dinner insulin detemir U-100 (LEVEMIR FLEXTOUCH U-100 INSULIN) 100 unit/mL (3 mL) injection pen Inject 74 Units subcutaneously daily at bedtime. omeprazole (PRILOSEC) 40 mg capsule Take 1 capsule by mouth once daily. alcohol swabs (BD SINGLE USE SWABS REGULAR) For use with insulin injections 4 times daily levothyroxine (SYNTHROID) 200 mcg tablet Take 1 tablet by mouth once daily. Thursday through Thursday, 1/2 tab on Thursday escitalopram oxalate (LEXAPRO) 10 mg tablet One pill by mouth daily. atorvastatin (LIPITOR) 40 mg tablet Take 1 tablet by mouth once daily. For cholesterol. SUMAtriptan (IMITREX) 50 mg tablet Take 1 tablet by mouth as needed for migraine headache (see administration instructions). insulin needles, DISPOSABLE, (PEN NEEDLE) 31 gauge x /16 Use one needle per dose. 4 per day. Insulin [place], Disposable, (UNIFINE PENTIPS) 31 gauge x 04/30 ndle use 1 (ONE) new needle with each dose, FOUR per day. loratadine (CLARITIN) 10 mg tablet Take 1 tablet by mouth once daily. hydrocortisone (PROCTOCORT) 1 % cream Apply to affected area twice daily. blood sugar diagnostic (BLOOD GLUCOSE TEST) test strip Test blood sugar(s) 4 times daily. Dx: Type 2 DM - Controlled E11.9 Insulin: Yes flash glucose scanning reader (INVIDI TechnologiesSTYLE SHIVAM 10 DAY READER) 1 Each once every month. Blood-Glucose Meter [facility] Dispense 1 kit iv contrast (will be provided with radiology test) CT Urogram WO/W Inject, intravenously, once for 1 dose.No IV access, insert saline lock prior to the beginning of sedation, infusion, injection of imaging exam. Discontinue saline lock post exam. If Pt. has a central line or IVAD, may access for administration according to line specific nursing protocol. Once exam is complete flush line and de-access according to line specific nursing protocol in the CT contrast administration guidelines link. COMPOUNDED PRESCRIPTION Bluesocket 2032 BATTERIES FOR GLUCOSE METER, ACCUCHEK SMARTVIEW TESTING 4 TIMES DAILY INSULIN YES DXE11.9 COMPOUNDED PRESCRIPTION Diabetic Shoes DX: Type 2 Diabetes E11.9 Current Facility-Administered Medications Medication Dose Route Frequency perflutren lipid microspheres 1.3 mL in NaCl (PF) 0.9% 10 mL injection (DEFINITY) INTRAVENOUS DIRECTED PRN sodium chloride 0.9 % (flush) 10 mL (BD POSIFLUSH) 10 mL INTRAVENOUS DIRECTED PRN ALLERGIES: ALLERGIES Allergen Reactions Lasix [Furosemide] Rash Latex Itching Prinivil [Lisinopri* Cough Zanaflex [Tizanidin* Shortness of Breath PAST MEDICAL HISTORY Diagnosis Date Adjustment disorder with depressed mood Esophageal reflux Essential hypertension, benign Generalized anxiety disorder HLD (hyperlipidemia) Menorrhagia Migraine without aura Morbid obesity (HCC) Nonspecific abnormal results of other endocrine function study 06/2004 Benign biopsy. Abnormally high thyroid globulin Pulmonary emboli (HCC) 09/2013 Bilateral on CTA chest. Scleritis Type II or unspecified type diabetes mellitus without mention of complication, not stated as uncontrolled PAST SURGICAL HISTORY Procedure Laterality Date CARPAL TUNNEL Right 12/10 CHOLECYSTECTOMY 11/15/2019 Dr. Ferguson EGD 03/07/2020 Dr Ferguson LIG/TRNSXJ FLP TUBE ABDL/VAG APPR UNI/BI 1988 THYROID BIOPSY US 11/2015 THYROIDECTOMY TOTAL/COMPLETE Left 12/13/2018 Dr Ferguson TOTAL THYROID LOBECTOMY UNI W/WO ISTHMUSECTOMY 01/15/07 right XCAPSL CTRC RMVL INSJ IO LENS PROSTH W/O ECP Right 06/2015 Cataract Extraction with PC IOL XCAPSL CTRC RMVL INSJ IO LENS PROSTH W/O ECP Left 07/2015 Cataract Extraction with PC IOL FAMILY HISTORY Problem Relation Age of Onset Hypertension Mother Diabetes Mother Thyroid Mother thyroidectomy Heart Mother murmur Heart Father of [place] Diabetes Brother Hypertension Brother No Known Problems Brother other (Other) Maternal Grandmother Pneumothorax Breast Cancer Maternal Aunt Metastatic to bone other (Other) Other No DVT or PE. No Known Problems Son No Known Problems Daughter Social History Tobacco Use Smoking status: Never Smokeless tobacco: Never Tobacco comments: FAther smoking in childhood home. Has lived with smoker in home, son quit about 2015. Vaping Use Vaping Use: Never used Substance Use Topics Alcohol use: No Drug use: No Reviewed current medications, allergies, past medical history, surgical history, family history andsocial history today. REVIEW OF SYSTEMS All other reviewed and negative other than HPI. VITALS: BP 170/82 Pulse 63 Wt 107 kg (236 lb) LMP 03/21/2005 SpO2 94% BMI 44.59 kg/m Last 4 Encounter Wt Readings: Date: Wt: 03/15/2022 105.7 kg (233 lb) 02/01/2022 102.1 kg (225 lb) 01/22/2022 103.9 kg (229 lb) 01/10/2022 104.8 kg (231 lb) PHYSICAL EXAMINATION: General appearance: Well appearing, alert, in no acute distress, well-hydrated, well nourished. Skin: Skin color, texture, turgor normal, no suspicious rashes or lesions Neck: Supple, no adenopathy; thyroid symmetric, normal size, no bruits Lungs: Lungs clear to auscultation. No wheezing, rhonchi, rales Heart: RRR without murmur, gallop, or rubs. No ectopy Abdomen: Normal abdominal exam, Abdomen soft, non-tender. Bowel sounds normal. No masses, organomegaly ASSESSMENT/PLAN: 1. Bacterial pneumonia - ICD9: 482.9, ICD10: J15.9 (primary diagnosis) - Red flags for re-assessment reviewed with patient in detail. - finish meds. Recheck chest xray in three weeks. - ALBUTEROL SULFATE HFA 90 MCG/ACTUATION AEROSOL INHALER 2. Type 2 diabetes mellitus with diabetic neuropathy, with long-term current use of insulin (HCC) -ICD9: 250.60, 357.2, V58.67, ICD10: E11.40, Z79.4 - get labs next month and keep next follow up 3. Essential hypertension, benign - ICD9: 401.1, ICD10: I10 - call in home meds to make sure taking meds correctly 4. Other hyperlipidemia - ICD9: 272.4, ICD10: E78.49 - check with next labs. - LIPID PANEL BASIC Barak Tiwari MD documented in this encounterCleveland Clinic Foundation11-21-2022 Miscellaneous Notes* Telephone Encounter - Sanjuanita George - 03/17/2022 10:43 AM EST Message relayed to patient. * Telephone Encounter - Nancy Andrea LPN - 03/17/2022 9:10 AM EST Left message for patient to call and speak with nurse. (Does have an appt scheduled to follow up) * Telephone Encounter - Barak Tiwari MD - 03/17/2022 8:42 AM EST Xray shows a pneumonia. Finish doxycycline. Follow up with one of us in two weeks. Will need a follow up xray in a month or so documented in this encounterCleveland Clinic Foundation11-19-2022 History of Present illness Narrative* Barak Tiwari MD - 03/15/2022 10:00 AM EST Patient presents with: Sinusitis HPI: Patient presents today for office visit for sinusitis. ENT: Patient complains of sinus pressure. Duration: 1 month or longer Fever: No. Headache: No. Sore throat: No. Ear pain: Left ear feel plugged. Nasal drainage: Yes. Has post nasal drainage. Cough: Yes. Shortness of breath: while outside in the cold. Nausea: No. Vomiting: No. Diarrhea: No. Previous treatment: Treated with Augmentin on 02/25/22. Use coricidin hbp Still feels it in her chest a little. Has stress test in next month. Blood counts are stable. Seeing gi soon per patient. Seeing Dr. Friend. No black or bloody stools. Remains on iron MEDICATIONS: Current Outpatient Medications Medication Sig amLODIPine (NORVASC) 10 mg tablet Take 10 mg by mouth once daily. C-500 500 mg tablet Take 500 mg by mouth once daily. erythromycin (ROMYCIN) 5 mg/gram (0.5 %) ophthalmic ointment fluorometholone (FML LIQUID FILM) 0.1 % ophthalmic suspension INSTILL 1 DROP IN BOTH EYES 1-2 TIMESPER DAY sucralfate (CARAFATE) 1 gram tablet Take 1 g by mouth twice daily. carvedilol (COREG) 12.5 mg tablet Take 1 tablet by mouth twice daily. losartan (COZAAR) 100 mg tablet Take 1 tablet by mouth once daily. ferrous sulfate 325 mg (65 mg iron) tablet Take 1 tablet by mouth twice daily with meals. metoprolol succinate ER (TOPROL XL) 50 mg 24 hr tablet Take 1 tablet by mouth once daily. SITagliptin-metFORMIN (JANUMET) 50-1,000 mg per tablet Take 1 tablet by mouth twice daily with meals. insulin aspart, niacinamide, (FIASP FLEXTOUCH U-100 INSULIN) 100 unit/mL (3 mL) pen Use 16 units sqq breakfast and 18 units sq at lunch and 18 units at dinner insulin detemir U-100 (LEVEMIR FLEXTOUCH U-100 INSULIN) 100 unit/mL (3 mL) injection pen Inject 74 Units subcutaneously daily at bedtime. omeprazole (PRILOSEC) 40 mg capsule Take 1 capsule by mouth once daily. alcohol swabs (BD SINGLE USE SWABS REGULAR) For use with insulin injections 4 times daily levothyroxine (SYNTHROID) 200 mcg tablet Take 1 tablet by mouth once daily. Thursday through Thursday, 1/2 tab on Thursday escitalopram oxalate (LEXAPRO) 10 mg tablet One pill by mouth daily. atorvastatin (LIPITOR) 40 mg tablet Take 1 tablet by mouth once daily. For cholesterol. SUMAtriptan (IMITREX) 50 mg tablet Take 1 tablet by mouth as needed for migraine headache (see administration instructions). insulin needles, DISPOSABLE, (PEN NEEDLE) 31 gauge x 16 Use one needle per dose. 4 per day. Insulin [place], Disposable, (UNIFINE PENTIPS) 31 gauge x 04/30 ndle use 1 (ONE) new needle with each dose, FOUR per day. loratadine (CLARITIN) 10 mg tablet Take 1 tablet by mouth once daily. hydrocortisone (PROCTOCORT) 1 % cream Apply to affected area twice daily. blood sugar diagnostic (BLOOD GLUCOSE TEST) test strip Test blood sugar(s) 4 times daily. Dx: Type 2 DM - Controlled E11.9 Insulin: Yes flash glucose scanning reader (INVIDI TechnologiesSTYLE SHIVAM 10 DAY READER) 1 Each once every month. Lancets lancets Test blood sugar(s) 4 times daily. Dx: Type 2 DM - Controlled E11.9 Insulin: Yes Blood-Glucose Meter [facility] Dispense 1 kit iv contrast (will be provided with radiology test) CT Urogram WO/W Inject, intravenously, once for 1 dose.No IV access, insert saline lock prior to the beginning of sedation, infusion, injection of imaging exam. Discontinue saline lock post exam. If Pt. has a central line or IVAD, may access for administration according to line specific nursing protocol. Once exam is complete flush line and de-access according to line specific nursing protocol in the CT contrast administration guidelines link. blood sugar diagnostic (BLOOD GLUCOSE TEST) test strip Test blood sugar(s) 4 times daily. Dx: Type 2 DM - Controlled E11.9 Insulin: Yes COMPOUNDED PRESCRIPTION CR 2032 BATTERIES FOR GLUCOSE METER, ACCUCHEK SMARTVIEW TESTING 4 TIMES DAILY INSULIN YES DXE11.9 COMPOUNDED PRESCRIPTION Diabetic Shoes DX: Type 2 Diabetes E11.9 Current Facility-Administered Medications Medication Dose Route Frequency perflutren lipid microspheres 1.3 mL in NaCl (PF) 0.9% 10 mL injection (DEFINITY) INTRAVENOUS DIRECTED PRN sodium chloride 0.9 % (flush) 10 mL (BD POSIFLUSH) 10 mL INTRAVENOUS DIRECTED PRN ALLERGIES: ALLERGIES Allergen Reactions Lasix [Furosemide] Rash Latex Itching Prinivil [Lisinopri* Cough Zanaflex [Tizanidin* Shortness of Breath PAST MEDICAL HISTORY Diagnosis Date Adjustment disorder with depressed mood Esophageal reflux Essential hypertension, benign Generalized anxiety disorder HLD (hyperlipidemia) Menorrhagia Migraine without aura Morbid obesity (HCC) Nonspecific abnormal results of other endocrine function study 06/2004 Benign biopsy. Abnormally high thyroid globulin Pulmonary emboli (HCC) 09/2013 Bilateral on CTA chest. Scleritis Type II or unspecified type diabetes mellitus without mention of complication, not stated as uncontrolled PAST SURGICAL HISTORY Procedure Laterality Date CARPAL TUNNEL Right 12/10 CHOLECYSTECTOMY 11/15/2019 Dr. Ferguson EGD 03/07/2020 Dr Ferguson LIG/TRNSXJ FLP TUBE ABDL/VAG APPR UNI/BI 1988 THYROID BIOPSY US 11/2015 THYROIDECTOMY TOTAL/COMPLETE Left 12/13/2018 Dr Ferguson TOTAL THYROID LOBECTOMY UNI W/WO ISTHMUSECTOMY 01/15/07 right XCAPSL CTRC RMVL INSJ IO LENS PROSTH W/O ECP Right 06/2015 Cataract Extraction with PC IOL XCAPSL CTRC RMVL INSJ IO LENS PROSTH W/O ECP Left 07/2015 Cataract Extraction with PC IOL FAMILY HISTORY Problem Relation Age of Onset Hypertension Mother Diabetes Mother Thyroid Mother thyroidectomy Heart Mother murmur Heart Father of [place] Diabetes Brother Hypertension Brother No Known Problems Brother other (Other) Maternal Grandmother Pneumothorax Breast Cancer Maternal Aunt Metastatic to bone other (Other) Other No DVT or PE. No Known Problems Son No Known Problems Daughter Social History Tobacco Use Smoking status: Never Smokeless tobacco: Never Tobacco comments: FAther smoking in childhood home. Has lived with smoker in home, son quit about 2015. Vaping Use Vaping Use: Never used Substance Use Topics Alcohol use: No Drug use: No Reviewed current medications, allergies, past medical history, surgical history, family history andsocial history today. REVIEW OF SYSTEMS All other reviewed and negative other than HPI. VITALS: BP 148/80 Pulse 77 Temp 36.9 C (98.5 F) Resp 16 Wt 105.7 kg (233 lb) LMP 03/21/2005 SpO2 95% BMI 44.02 kg/m Last 4 Encounter Wt Readings: Date: Wt: 02/01/2022 102.1 kg (225 lb) 01/22/2022 103.9 kg (229 lb) 01/10/2022 104.8 kg (231 lb) 07/03/2021 103.4 kg (228 lb) PHYSICAL EXAMINATION: General appearance: Well appearing, alert, in no acute distress, well-hydrated, well nourished. Skin: Skin color, texture, turgor normal, no suspicious rashes or lesions Head: Normocephalic, no masses, lesions, tenderness or abnormalities Back: Normal exam Lungs: Lungs clear to auscultation. No wheezing, rhonchi, rales Heart: II/ murmur unchanged. , gallop, or rubs. No ectopy Abdomen: Normal abdominal exam, Abdomen soft, non-tender. Bowel sounds normal. No masses, organomegaly Extremities: No deformities, edema, skin discoloration, clubbing or cyanosis. Good capillary refill. Musculoskeletal: No joint swelling, deformity, or tenderness ASSESSMENT/PLAN: 1. Bronchitis - ICD9: 490, ICD10: J40 (primary diagnosis) - Discussed risks and benefits of new medication with the patient. Advised them to call if any sideeffects or questions. Red flags for re-assessment reviewed with patient in detail. Call if symptoms worsen at all or if not better in one to two weeks Reviewed diagnosis and treatment options in detail. Questions were answered. Patient expressed understanding of treatment plan. - XR CHEST 2V FRONTAL/LAT - DOXYCYCLINE MONOHYDRATE 100 MG TABLET 2. Essential hypertension, benign - ICD9: 401.1, ICD10: I10 - suboptimal control - recheck next ov - AMLODIPINE 10 MG TABLET - BASIC METABOLIC PNL 3. Type 2 diabetes mellitus with diabetic neuropathy, with long-term current use of insulin (HCC) -ICD9: 250.60, 357.2, V58.67, ICD10: E11.40, Z79.4 - get labs in one month - HGB A1C 4. Anemia, unspecified type - ICD9: 285.9, ICD10: D64.9 - get labs in one month. Reinforced need to see Gi for capsule endosocpy - CBC + DIFF - IRON + TIBC - C-500 500 MG TABLET 5. Gastroesophageal reflux disease without esophagitis - ICD9: 530.81, ICD10: K21.9 - SUCRALFATE 1 GRAM TABLET 6. Type 2 diabetes mellitus without complication, with long-term current use of insulin ([facility]) - ICD9: 250.00, V58.67, ICD10: E11.9, Z79.4 - BLOOD-GLUCOSE METER KIT - LANCETS - BLOOD GLUCOSE TEST STRIPS Barak Tiwari MD documented in this encounterCleveland Clinic Foundation11-01-2022 Instructions* Patient Instructions* July Cedillo APRN.CNP - 02/25/2022 4:18 PM EDT Get labs rechecked. Start the augmentin -- twice daily X 10 days. Continue the OTC cold medication. Stay well hydrated. Let us know if no better/worsening. documented in this encounterCleveland Clinic Foundation11-01-2022 History of Present illness Narrative* July Cedillo APRN.CNP - 02/25/2022 4:04 PM EDT This is a 56 year old female who presents today with: Patient presents with: Acute Visit: Ears plugged, green nasal mucous, productive cough; no fever; had covid in Dec HISTORY OF PRESENT ILLNESS: Jesus Zepeda is a 56 year old female. Patient presents with: Acute Visit: Ears plugged, green nasal mucous, productive cough; no fever; had covid in Sept Pt presents today with complain to left ear being plugged. Refers that it popped some, but now is painful. Refers that she has been having a really bad sinus infection. She has been taking OTC medication. + cough/wheeze a little bit. Cough can productive for a little bit of mucus. Scratchy throat. Expectorating green mucus from the nose. Some nausea. Was in the hospital in December for transfusion. Refers when she got out of the hospital, just seemed to hit her all at once. She was + for covid early January. She is taking OTC cold medicine for HTN. PAST MEDICAL HISTORY: PAST MEDICAL HISTORY Diagnosis Date Adjustment disorder with depressed mood Esophageal reflux Essential hypertension, benign Generalized anxiety disorder HLD (hyperlipidemia) Menorrhagia Migraine without aura Morbid obesity (HCC) Nonspecific abnormal results of other endocrine function study 06/2004 Benign biopsy. Abnormally high thyroid globulin Pulmonary emboli (HCC) 09/2013 Bilateral on CTA chest. Scleritis Type II or unspecified type diabetes mellitus without mention of complication, not stated as uncontrolled PAST SURGICAL HISTORY Procedure Laterality Date CARPAL TUNNEL Right 12/10 CHOLECYSTECTOMY 11/15/2019 Dr. Ferguson EGD 03/07/2020 Dr Ferguson LIG/TRNSXJ FLP TUBE ABDL/VAG APPR UNI/BI 1988 THYROID BIOPSY US 11/2015 THYROIDECTOMY TOTAL/COMPLETE Left 12/13/2018 Dr Ferguson TOTAL THYROID LOBECTOMY UNI W/WO ISTHMUSECTOMY 01/15/07 right XCAPSL CTRC RMVL INSJ IO LENS PROSTH W/O ECP Right 06/2015 Cataract Extraction with PC IOL XCAPSL CTRC RMVL INSJ IO LENS PROSTH W/O ECP Left 07/2015 Cataract Extraction with PC IOL ALLERGIES Lasix [Furosemide], Latex, Prinivil [Lisinopril], and Zanaflex [Tizanidine Hcl] MEDICATIONS Current Outpatient Medications Medication Sig amLODIPine (NORVASC) 10 mg tablet Take 10 mg by mouth once daily. C-500 500 mg tablet Take 500 mg by mouth once daily. erythromycin (ROMYCIN) 5 mg/gram (0.5 %) ophthalmic ointment fluorometholone (FML LIQUID FILM) 0.1 % ophthalmic suspension INSTILL 1 DROP IN BOTH EYES 1-2 TIMESPER DAY sucralfate (CARAFATE) 1 gram tablet Take 1 g by mouth twice daily. carvedilol (COREG) 12.5 mg tablet Take 1 tablet by mouth twice daily. losartan (COZAAR) 100 mg tablet Take 1 tablet by mouth once daily. ferrous sulfate 325 mg (65 mg iron) tablet Take 1 tablet by mouth twice daily with meals. metoprolol succinate ER (TOPROL XL) 50 mg 24 hr tablet Take 1 tablet by mouth once daily. SITagliptin-metFORMIN (JANUMET) 50-1,000 mg per tablet Take 1 tablet by mouth twice daily with meals. insulin aspart, niacinamide, (FIASP FLEXTOUCH U-100 INSULIN) 100 unit/mL (3 mL) pen Use 16 units sqq breakfast and 18 units sq at lunch and 18 units at dinner insulin detemir U-100 (LEVEMIR FLEXTOUCH U-100 INSULIN) 100 unit/mL (3 mL) injection pen Inject 74 Units subcutaneously daily at bedtime. omeprazole (PRILOSEC) 40 mg capsule Take 1 capsule by mouth once daily. alcohol swabs (BD SINGLE USE SWABS REGULAR) For use with insulin injections 4 times daily levothyroxine (SYNTHROID) 200 mcg tablet Take 1 tablet by mouth once daily. Thursday through Thursday, 1/2 tab on Thursday escitalopram oxalate (LEXAPRO) 10 mg tablet One pill by mouth daily. atorvastatin (LIPITOR) 40 mg tablet Take 1 tablet by mouth once daily. For cholesterol. SUMAtriptan (IMITREX) 50 mg tablet Take 1 tablet by mouth as needed for migraine headache (see administration instructions). insulin needles, DISPOSABLE, (PEN NEEDLE) 31 gauge x 5/16 Use one needle per dose. 4 per day. Insulin [place], Disposable, (UNIFINE PENTIPS) 31 gauge x 1/4 ndle use 1 (ONE) new needle with each dose, FOUR per day. loratadine (CLARITIN) 10 mg tablet Take 1 tablet by mouth once daily. hydrocortisone (PROCTOCORT) 1 % cream Apply to affected area twice daily. blood sugar diagnostic (BLOOD GLUCOSE TEST) test strip Test blood sugar(s) 4 times daily. Dx: Type 2 DM - Controlled E11.9 Insulin: Yes flash glucose scanning reader (FREESTYLE SHIVAM 10 DAY READER) 1 Each once every month. Lancets lancets Test blood sugar(s) 4 times daily. Dx: Type 2 DM - Controlled E11.9 Insulin: Yes Blood-Glucose Meter [facility] Dispense 1 kit iv contrast (will be provided with radiology test) CT Urogram WO/W Inject, intravenously, once for 1 dose.No IV access, insert saline lock prior to the beginning of sedation, infusion, injection of imaging exam. Discontinue saline lock post exam. If Pt. has a central line or IVAD, may access for administration according to line specific nursing protocol. Once exam is complete flush line and de-access according to line specific nursing protocol in the CT contrast administration guidelines link. blood sugar diagnostic (BLOOD GLUCOSE TEST) test strip Test blood sugar(s) 4 times daily. Dx: Type 2 DM - Controlled E11.9 Insulin: Yes COMPOUNDED PRESCRIPTION CR 2031 BATTERIES FOR GLUCOSE METER, ACCUCHEK SMARTVIEW TESTING 4 TIMES DAILY INSULIN YES DXE11.9 COMPOUNDED PRESCRIPTION Diabetic Shoes DX: Type 2 Diabetes E11.9 Current Facility-Administered Medications Medication Dose Route Frequency perflutren lipid microspheres 1.3 mL in NaCl (PF) 0.9% 10 mL injection (DEFINITY) INTRAVENOUS DIRECTED PRN sodium chloride 0.9 % (flush) 10 mL (BD POSIFLUSH) 10 mL INTRAVENOUS DIRECTED PRN FAMILY HISTORY Problem Relation Age of Onset Hypertension Mother Diabetes Mother Thyroid Mother thyroidectomy Heart Mother murmur Heart Father of [place] Diabetes Brother Hypertension Brother No Known Problems Brother other (Other) Maternal Grandmother Pneumothorax Breast Cancer Maternal Aunt Metastatic to bone other (Other) Other No DVT or PE. No Known Problems Son No Known Problems Daughter Social History Tobacco Use Smoking status: Never Smokeless tobacco: Never Tobacco comments: FAther smoking in childhood home. Has lived with smoker in home, son quit about 2015. Vaping Use Vaping Use: Never used Substance Use Topics Alcohol use: No Drug use: No EXAM: BP 152/96 Pulse 61 Temp 36.8 C (98.2 F) Resp 18 LMP 03/21/2005 SpO2 94% PHYSICAL EXAM: General Appearance: Well appearing, alert, in no acute distress, well-hydrated, well nourished.. Skin: Skin color, texture, turgor normal, no suspicious rashes or lesions. Head: Normocephalic, no masses, lesions, tenderness or abnormalities. Eyes: Anicteric sclera. Pupils are equally round and reactive to light. Extraocular movements are intact. . Ears: External ears normal, canals clear, Positive findings: R TM: air/fluid interface visualized and dull, L TM: air/fluid interface visualized and dull. Oropharynx: Lips, mucosa, and tongue normal, teeth and gums normal, oropharynx normal. Neck: Supple, no adenopathy Lungs: Lungs clear to auscultation. No wheezing, rhonchi, rales.. Heart: RRR without murmur, gallop, or rubs. No ectopy. Extremities: No deformities, edema, skin discoloration, clubbing or cyanosis. Good capillary refill. . Neurologic: Gait normal. ASSESSMENT/PLAN: 1. Acute non-recurrent maxillary sinusitis - ICD9: 461.0, ICD10: J01.00 - Will begin treatment with Augmentin 875 mg PO BID for 10 days - The patient should also be given OTC cough and cold meds as needed for the first 5-7 days of treatment. - Supportive care with plenty of fluids, rest, and analgesia prn. - Follow up in one week if symptoms persist or worsen. - AMOXICILLIN 875 MG-POTASSIUM CLAVULANATE 125 MG TABLET Discussed treatment plan and patient voices understanding. Patient's questions answered appropriately. Medications and potential side effects were discussed and patient voices understanding. Return to the office as scheduled or as needed for worsening/no improvement. July Cedillo APRN.ROSEANN The patient indicates understanding of these issues and agrees with the plan. documented in this encounterC[facility] Foundation10-14-2022 Miscellaneous Notes* Telephone Encounter - Nicol Patrick Ma - 02/07/2022 2:42 PM EDT Patient notified of provider message and verbalizes understanding * Telephone Encounter - Barak Tiwari MD - 02/07/2022 2:32 PM EDT There would be no treatment for covid pneumonia which is why we usually don't xray unless she is having significant shortness of breath etc. Is she having anything like that.? It is also too far into course to do oral meds like paxlovid or monoclonal antibodies iv. (She is 8days in) * Telephone Encounter - Nicol Patrick Ma - 02/07/2022 2:01 PM EDT Pt tested positive at work today. Sent to [facility] ER today. Report on provider's desk for review. * Telephone Encounter - Francesca Nixon - 02/07/2022 1:33 PM EDT Patient states that she tested positive for COVID19 at work. She was given an inhaler after she wasseen at [facility]. She states that the prescribing provider stated that her lungs looked good. She is requesting additional medication to treat her mucus/phlem that is currently the color green with mild redness. She would also like to know if there were any additional medications to treat the COVID19 symptoms. Please contact the patient to advise on plan of care. * Telephone Encounter - Nancy Andrea LPN - 02/07/2022 1:11 PM EDT The report is scanned into Epic she tested at that visit to the ER and was negative. Left message for patient to call office and confirm if this is the visit she is talking about? Chest x-ray was also done on 01/30/22. Was she tested and positive somewhere else. If feeling like could have possible pneumonia should probably be seen. * Telephone Encounter - Barak Tiwari MD - 02/07/2022 1:04 PM EDT ? So was she covid positive. Can we pull the report. * Telephone Encounter - Rachell Hill LPN - 02/07/2022 12:59 PM EDT Patient calling, states that she was at [facility] ER for covid symptoms. States she is on day 5. She is feeling short of breath and the ER gave her an inhaler but she is concerned she has covid pneumonia. The ER did not get a chest xray. Patient asking if an xray can be ordered or what PCP would recommend for her at this point. Please advise. documented in this encounterC[facility] Foundation10-10-2022 Miscellaneous Notes* Telephone Encounter - Leyda Wall RN - 02/03/2022 9:45 AM EDT Patient returned call and given provider's message below and patient verbalized understanding. Escobar Wall RN * Telephone Encounter - Yolanda Chacon MA - 02/03/2022 9:34 AM EDT Unable to reach patient. Left VM to return call to office. Please read below and advise. Yolanda Chacon MA * Telephone Encounter - Barak Tiwari MD - 02/03/2022 8:19 AM EDT Labs show anemia is stable. Recheck cbc in one week. Continue the iron and follow up with gi. documented in this encounterC[facility] Foundation10-08-2022 History of Present illness Narrative* Barak Tiwari MD - 02/01/2022 10:42 AM EDT Patient presents with: ER F/U: SOB and bloating HPI: Patient presents today for office visit for ER follow up. Went in due to shortness of breath and bloating in gut. Was in the [facility] ER with shortness of breath on 01/30 Had chest xray, ekg, labs including bnp which was normal. Hb was 8.0 No chest pain. No increased edema. Was warm at work and wonders if that could have contributed. No anxiety. No weight gain. No cough. She sees gi next month. No bowel changes. No vomiting. No stomach pain. Right now feels ok. And is back at her baseline. She thinks it is the same thing she has been having since we found the anemia. Bp remains up. We just adjusted coreg and was better after resting in the ER. Will follow. Has upcoming appt. She just took her dose. Was already scheduled for a stress test. It was scheduled not until March. Just did echo due to murmur in June. Component Latest Ref Rng & Units 01/22/2022 WBC 3.70 - 11.00 k/uL 5.16 RBC 3.90 - 5.20 m/uL 4.11 Hemoglobin 11.5 - 15.5 g/dL 8.9 (L) Hematocrit 36.0 - 46.0 % 30.7 (L) MCV 80.0 - 100.0 fL 74.7 (L) MCH 26.0 - 34.0 pg 21.7 (L) MCHC 30.5 - 36.0 g/dL 29.0 (L) RDW-CV 11.5 - 15.0 % 20.0 (H) Platelet Count 150 - 400 k/uL 349 MPV 9.0 - 12.7 fL 9.2 Neut% % 59.5 Abs Neut (ANC) 1.45 - 7.50 k/uL 3.07 Lymph% % 26.0 Abs Lymph 1.00 - 4.00 k/uL 1.34 Wells% % 11.0 Abs Wells <0.87 k/uL 0.57 Eosin% % 2.1 Abs Eosin <0.46 k/uL 0.11 Baso% % 1.2 Abs Baso <0.11 k/uL 0.06 Immature Gran % % 0.2 IMMATURE GRANS (ABS) <0.10 k/uL <0.03 NRBC /100 WBC 0.0 Absolute nRBC <0.01 k/uL <0.01 DTYPE Auto Glucose 74 - 99 mg/dL 88 BUN 7 - 21 mg/dL 13 Creatinine 0.58 - 0.96 mg/dL 0.74 Sodium 136 - 144 mmol/L 133 (L) Potassium 3.7 - 5.1 mmol/L 4.1 Chloride 97 - 105 mmol/L 100 CO2 22 - 30 mmol/L 24 Anion Gap 9 - 18 mmol/L 9 Calcium 8.5 - 10.2 mg/dL 9.4 eGFR >=60 mL/min/1.73m 96 MEDICATIONS: Current Outpatient Medications Medication Sig amLODIPine (NORVASC) 10 mg tablet Take 10 mg by mouth once daily. C-500 500 mg tablet Take 500 mg by mouth once daily. erythromycin (ROMYCIN) 5 mg/gram (0.5 %) ophthalmic ointment fluorometholone (FML LIQUID FILM) 0.1 % ophthalmic suspension INSTILL 1 DROP IN BOTH EYES 1-2 TIMESPER DAY sucralfate (CARAFATE) 1 gram tablet Take 1 g by mouth twice daily. carvedilol (COREG) 12.5 mg tablet Take 1 tablet by mouth twice daily. losartan (COZAAR) 100 mg tablet Take 1 tablet by mouth once daily. ferrous sulfate 325 mg (65 mg iron) tablet Take 1 tablet by mouth twice daily with meals. metoprolol succinate ER (TOPROL XL) 50 mg 24 hr tablet Take 1 tablet by mouth once daily. SITagliptin-metFORMIN (JANUMET) 50-1,000 mg per tablet Take 1 tablet by mouth twice daily with meals. insulin aspart, niacinamide, (FIASP FLEXTOUCH U-100 INSULIN) 100 unit/mL (3 mL) pen Use 16 units sqq breakfast and 18 units sq at lunch and 18 units at dinner insulin detemir U-100 (LEVEMIR FLEXTOUCH U-100 INSULIN) 100 unit/mL (3 mL) injection pen Inject 74 Units subcutaneously daily at bedtime. omeprazole (PRILOSEC) 40 mg capsule Take 1 capsule by mouth once daily. alcohol swabs (BD SINGLE USE SWABS REGULAR) For use with insulin injections 4 times daily levothyroxine (SYNTHROID) 200 mcg tablet Take 1 tablet by mouth once daily. Thursday through Thursday, 1/2 tab on Thursday escitalopram oxalate (LEXAPRO) 10 mg tablet One pill by mouth daily. atorvastatin (LIPITOR) 40 mg tablet Take 1 tablet by mouth once daily. For cholesterol. SUMAtriptan (IMITREX) 50 mg tablet Take 1 tablet by mouth as needed for migraine headache (see administration instructions). insulin needles, DISPOSABLE, (PEN NEEDLE) 31 gauge x 5/16 Use one needle per dose. 4 per day. Insulin [place], Disposable, (UNIFINE PENTIPS) 31 gauge x /4 ndle use 1 (ONE) new needle with each dose, FOUR per day. loratadine (CLARITIN) 10 mg tablet Take 1 tablet by mouth once daily. hydrocortisone (PROCTOCORT) 1 % cream Apply to affected area twice daily. blood sugar diagnostic (BLOOD GLUCOSE TEST) test strip Test blood sugar(s) 4 times daily. Dx: Type 2 DM - Controlled E11.9 Insulin: Yes flash glucose scanning reader (INVIDI TechnologiesSTYLE SHIVAM 10 DAY READER) 1 Each once every month. Lancets lancets Test blood sugar(s) 4 times daily. Dx: Type 2 DM - Controlled E11.9 Insulin: Yes Blood-Glucose Meter [facility] [place] Dispense 1 kit iv contrast (will be provided with radiology test) CT Urogram WO/W Inject, intravenously, once for 1 dose.No IV access, insert saline lock prior to the beginning of sedation, infusion, injection of imaging exam. Discontinue saline lock post exam. If Pt. has a central line or IVAD, may access for administration according to line specific nursing protocol. Once exam is complete flush line and de-access according to line specific nursing protocol in the CT contrast administration guidelines link. blood sugar diagnostic (BLOOD GLUCOSE TEST) test strip Test blood sugar(s) 4 times daily. Dx: Type 2 DM - Controlled E11.9 Insulin: Yes COMPOUNDED PRESCRIPTION CR 2032 BATTERIES FOR GLUCOSE METER, ACCUCHEK SMARTVIEW TESTING 4 TIMES DAILY INSULIN YES DXE11.9 COMPOUNDED PRESCRIPTION Diabetic Shoes DX: Type 2 Diabetes E11.9 Current Facility-Administered Medications Medication Dose Route Frequency perflutren lipid microspheres 1.3 mL in NaCl (PF) 0.9% 10 mL injection (DEFINITY) INTRAVENOUS DIRECTED PRN sodium chloride 0.9 % (flush) 10 mL (BD POSIFLUSH) 10 mL INTRAVENOUS DIRECTED PRN ALLERGIES: ALLERGIES Allergen Reactions Lasix [Furosemide] Rash Latex Itching Prinivil [Lisinopri* Cough Zanaflex [Tizanidin* Shortness of Breath PAST MEDICAL HISTORY Diagnosis Date Adjustment disorder with depressed mood Esophageal reflux Essential hypertension, benign Generalized anxiety disorder HLD (hyperlipidemia) Menorrhagia Migraine without aura Morbid obesity (HCC) Nonspecific abnormal results of other endocrine function study 06/2004 Benign biopsy. Abnormally high thyroid globulin Pulmonary emboli (HCC) 09/2013 Bilateral on CTA chest. Scleritis Type II or unspecified type diabetes mellitus without mention of complication, not stated as uncontrolled PAST SURGICAL HISTORY Procedure Laterality Date CARPAL TUNNEL Right 12/10 CHOLECYSTECTOMY 11/15/2019 Dr. Ferguson EGD 03/07/2020 Dr Ferguson LIG/TRNSXJ FLP TUBE ABDL/VAG APPR /BI 1988 THYROID BIOPSY US 11/2015 THYROIDECTOMY TOTAL/COMPLETE Left 12/13/2018 Dr Ferguson TOTAL THYROID LOBECTOMY UNI W/WO ISTHMUSECTOMY 01/15/07 right XCAPSL CTRC RMVL INSJ IO LENS PROSTH W/O ECP Right 06/2015 Cataract Extraction with PC IOL XCAPSL CTRC RMVL INSJ IO LENS PROSTH W/O ECP Left 07/2015 Cataract Extraction with PC IOL FAMILY HISTORY Problem Relation Age of Onset Hypertension Mother Diabetes Mother Thyroid Mother thyroidectomy Heart Mother murmur Heart Father of [place] Diabetes Brother Hypertension Brother No Known Problems Brother other (Other) Maternal Grandmother Pneumothorax Breast Cancer Maternal Aunt Metastatic to bone other (Other) Other No DVT or PE. No Known Problems Son No Known Problems Daughter Social History Tobacco Use Smoking status: Never Smokeless tobacco: Never Tobacco comments: FAther smoking in childhood home. Has lived with smoker in home, son quit about 2015. Vaping Use Vaping Use: Never used Substance Use Topics Alcohol use: No Drug use: No Reviewed current medications, allergies, past medical history, surgical history, family history andsocial history today. REVIEW OF SYSTEMS All other reviewed and negative other than HPI. VITALS: BP 164/100 Pulse 67 Ht 154.9 cm (5' 1) Wt 102.1 kg (225 lb) LMP 03/21/2005 SpO2 95% BMI 42.51 kg/m Last 4 Encounter Wt Readings: Date: Wt: 01/22/2022 103.9 kg (229 lb) 01/10/2022 104.8 kg (231 lb) 07/03/2021 103.4 kg (228 lb) 04/04/2021 106.1 kg (234 lb) PHYSICAL EXAMINATION: General appearance: Well appearing, alert, in no acute distress, well-hydrated, well nourished. Skin: Skin color, texture, turgor normal, no suspicious rashes or lesions Head: Normocephalic, no masses, lesions, tenderness or abnormalities Lungs: Lungs clear to auscultation. No wheezing, rhonchi, rales Heart: RRR with unchanged murmur, gallop, or rubs. No ectopy Abdomen: Normal abdominal exam, Abdomen soft, non-tender. Bowel sounds normal. No masses, organomegaly Extremities: No deformities, new edema, skin discoloration, clubbing or cyanosis. Good capillary refill. Musculoskeletal: No joint swelling, deformity, or tenderness Peripheral pulses: Normal ASSESSMENT/PLAN: 1. SOB (shortness of breath) - ICD9: 786.05, ICD10: R06.02 (primary diagnosis) - call if worsens. Check labs. Move up stress test. See gi. Continue iron. 2. Anemia, unspecified type - ICD9: 285.9, ICD10: D64.9 - CBC + DIFF 3. Primary hypertension - ICD9: 401.9, ICD10: I10 - suboptimal control - continue higher dose of coreg that was just changed. Keep next follow up. - Goal of BP <130/80 Barak Tiwari documented in this encounterCleveland Clinic Foundation10-04-2022 Miscellaneous Notes* Telephone Encounter - Tanya Birmingham RN - 01/28/2022 5:05 PM EDT PATIENT NOTIFIED OF INFORMATION * Telephone Encounter - Mariaan Delgado LPN - 01/28/2022 4:30 PM EDT Left message to return call * Telephone Encounter - Barak Tiwari MD - 01/28/2022 4:13 PM EDT Bp is much better. Stay on current meds. Let me know if headaches etc don't improve. * Telephone Encounter - Jyoti Valerio LPN - 01/28/2022 3:52 PM EDT Manual Readin/73 Pulse: 67 Reason for blood pressure check - Last BP elevated and Medication adjustment Patient is: Taking medication as prescribed Yes Took medication today Yes If no, date medication last taken N/A Experiencing side effects Yes BP was elevated at last appt 01/22/22. Coreg was increased to 12.5mg twice daily. Reports that she has been having problems with dizziness since starting new dosing. States that it happens after she takes medication and last about half the day. Also will have headaches during this time. Denies any chest pain or shortness of breath. No caffeine use. No personal history of tobacco use; no current exposure. Alert and oriented. Pt has been identified by name and birthdate: Yes Allergies reviewed: Yes Latex allergy: no. Medication - prescribed and OTC reviewed and updated: Yes Do you need any prescription refills prior to your next visit: No Health Maintenance: Reviewed and not up to date and provider notified Patient advised to continue with current medications and would be contacted if any further instructions after review by PCP. Jyoti Valerio LPN documented in this encounterCleveland Clinic Foundation10-04-2022 History of Present illness Narrative* Jyoti Valerio LPN - 01/28/2022 3:50 PM EDT Manual Readin/73 Pulse: 67 Reason for blood pressure check - Last BP elevated and Medication adjustment Patient is: Taking medication as prescribed Yes Took medication today Yes If no, date medication last taken N/A Experiencing side effects Yes BP was elevated at last appt 01/22/22. Coreg was increased to 12.5mg twice daily. Reports that she has been having problems with dizziness since starting new dosing. States that it happens after she takes medication and last about half the day. Also will have headaches during this time. Denies any chest pain or shortness of breath. No caffeine use. No personal history of tobacco use; no current exposure. Alert and oriented. Pt has been identified by name and birthdate: Yes Allergies reviewed: Yes Latex allergy: no. Medication - prescribed and OTC reviewed and updated: Yes Do you need any prescription refills prior to your next visit: No Health Maintenance: Reviewed and not up to date and provider notified Patient advised to continue with current medications and would be contacted if any further instructions after review by PCP. Jyoti Valerio LPN documented in this encounterCleveland Clinic Foundation09-28-2022 Instructions* Patient Instructions* Barak Tiwari MD - 01/22/2022 9:52 AM EDT Do not take metoprolol. Increase carvediol to 12.5 twice a day documented in this encounterCleveland Clinic Foundation09-28-2022 History of Present illness Narrative* Barak Tiwari MD - 01/22/2022 9:51 AM EDT Verified. She is not to take metoprol. Increase coreg * Barak Tiwari MD - 01/22/2022 9:27 AM EDT Patient presents with: Hospital F/U HPI: Patient presents today for office visit for hospital follow up. Seen in [facility] 01/10-01/12 due to SOB. Rule out PE. Low blood count. Transfused. 4 new meds added. Unsure what she's supposed to stop and start. Admitted last weekend. Thinks she was discharged on Thursday. I do not have discharge records. o She had chronic anemia. Had already seen gi and was to have had colonscopy and egd done in last year. Had not done so despite numerous reminders. Breathing is better than it was CTA was negative. Found to have severe anemia and had transfusion. Feels much better. Is to see gi again in a month. Added vit c, added carafate, added norvasc and coreg. She states she is still on metoprolol. Will attempt to get records to see what she is to be on. No chest pain Breathing is better. No dizziness No gi issues. MEDICATIONS: Current Outpatient Medications Medication Sig C-500 500 mg tablet Take 500 mg by mouth once daily. carvedilol (COREG) 6.25 mg tablet Take 6.25 mg by mouth twice daily. erythromycin (ROMYCIN) 5 mg/gram (0.5 %) ophthalmic ointment fluorometholone (FML LIQUID FILM) 0.1 % ophthalmic suspension INSTILL 1 DROP IN BOTH EYES 1-2 TIMESPER DAY sucralfate (CARAFATE) 1 gram tablet Take 1 g by mouth twice daily. losartan (COZAAR) 100 mg tablet Take 1 tablet by mouth once daily. ferrous sulfate 325 mg (65 mg iron) tablet Take 1 tablet by mouth twice daily with meals. metoprolol succinate ER (TOPROL XL) 50 mg 24 hr tablet Take 1 tablet by mouth once daily. SITagliptin-metFORMIN (JANUMET) 50-1,000 mg per tablet Take 1 tablet by mouth twice daily with meals. insulin aspart, niacinamide, (FIASP FLEXTOUCH U-100 INSULIN) 100 unit/mL (3 mL) pen Use 16 units sqq breakfast and 18 units sq at lunch and 18 units at dinner insulin detemir U-100 (LEVEMIR FLEXTOUCH U-100 INSULIN) 100 unit/mL (3 mL) injection pen Inject 74 Units subcutaneously daily at bedtime. omeprazole (PRILOSEC) 40 mg capsule Take 1 capsule by mouth once daily. alcohol swabs (BD SINGLE USE SWABS REGULAR) For use with insulin injections 4 times daily levothyroxine (SYNTHROID) 200 mcg tablet Take 1 tablet by mouth once daily. Thursday through Thursday, 1/2 tab on Thursday escitalopram oxalate (LEXAPRO) 10 mg tablet One pill by mouth daily. atorvastatin (LIPITOR) 40 mg tablet Take 1 tablet by mouth once daily. For cholesterol. SUMAtriptan (IMITREX) 50 mg tablet Take 1 tablet by mouth as needed for migraine headache (see administration instructions). insulin needles, DISPOSABLE, (PEN NEEDLE) 31 gauge x 5/16 Use one needle per dose. 4 per day. Insulin [place], Disposable, (UNIFINE PENTIPS) 31 gauge x 1/4 ndle use 1 (ONE) new needle with each dose, FOUR per day. loratadine (CLARITIN) 10 mg tablet Take 1 tablet by mouth once daily. hydrocortisone (PROCTOCORT) 1 % cream Apply to affected area twice daily. blood sugar diagnostic (BLOOD GLUCOSE TEST) test strip Test blood sugar(s) 4 times daily. Dx: Type 2 DM - Controlled E11.9 Insulin: Yes flash glucose scanning reader (FREESTYLE SHIVAM 10 DAY READER) 1 Each once every month. Lancets lancets Test blood sugar(s) 4 times daily. Dx: Type 2 DM - Controlled E11.9 Insulin: Yes Blood-Glucose Meter [facility] Dispense 1 kit iv contrast (will be provided with radiology test) CT Urogram WO/W Inject, intravenously, once for 1 dose.No IV access, insert saline lock prior to the beginning of sedation, infusion, injection of imaging exam. Discontinue saline lock post exam. If Pt. has a central line or IVAD, may access for administration according to line specific nursing protocol. Once exam is complete flush line and de-access according to line specific nursing protocol in the CT contrast administration guidelines link. blood sugar diagnostic (BLOOD GLUCOSE TEST) test strip Test blood sugar(s) 4 times daily. Dx: Type 2 DM - Controlled E11.9 Insulin: Yes COMPOUNDED PRESCRIPTION CR 2032 BATTERIES FOR GLUCOSE METER, ACCUCHEK SMARTVIEW TESTING 4 TIMES DAILY INSULIN YES DXE11.9 COMPOUNDED PRESCRIPTION Diabetic Shoes DX: Type 2 Diabetes E11.9 amLODIPine (NORVASC) 10 mg tablet Take 10 mg by mouth once daily. Current Facility-Administered Medications Medication Dose Route Frequency perflutren lipid microspheres 1.3 mL in NaCl (PF) 0.9% 10 mL injection (DEFINITY) INTRAVENOUS DIRECTED PRN sodium chloride 0.9 % (flush) 10 mL (BD POSIFLUSH) 10 mL INTRAVENOUS DIRECTED PRN ALLERGIES: ALLERGIES Allergen Reactions Lasix [Furosemide] Rash Latex Itching Prinivil [Lisinopri* Cough Zanaflex [Tizanidin* Shortness of Breath PAST MEDICAL HISTORY Diagnosis Date Adjustment disorder with depressed mood Esophageal reflux Essential hypertension, benign Generalized anxiety disorder HLD (hyperlipidemia) Menorrhagia Migraine without aura Morbid obesity (HCC) Nonspecific abnormal results of other endocrine function study 06/2004 Benign biopsy. Abnormally high thyroid globulin Pulmonary emboli (HCC) 09/2013 Bilateral on CTA chest. Scleritis Type II or unspecified type diabetes mellitus without mention of complication, not stated as uncontrolled PAST SURGICAL HISTORY Procedure Laterality Date CARPAL TUNNEL Right 12/10 CHOLECYSTECTOMY 11/15/2019 Dr. Ferguson EGD 03/07/2020 Dr Ferguson LIG/TRNSXJ FLP TUBE ABDL/VAG APPR UNI/BI 1988 THYROID BIOPSY US 11/2015 THYROIDECTOMY TOTAL/COMPLETE Left 12/13/2018 Dr Ferguson TOTAL THYROID LOBECTOMY UNI W/WO ISTHMUSECTOMY 01/15/07 right XCAPSL CTRC RMVL INSJ IO LENS PROSTH W/O ECP Right 06/2015 Cataract Extraction with PC IOL XCAPSL CTRC RMVL INSJ IO LENS PROSTH W/O ECP Left 07/2015 Cataract Extraction with PC IOL FAMILY HISTORY Problem Relation Age of Onset Hypertension Mother Diabetes Mother Thyroid Mother thyroidectomy Heart Mother murmur Heart Father of [place] Diabetes Brother Hypertension Brother No Known Problems Brother other (Other) Maternal Grandmother Pneumothorax Breast Cancer Maternal Aunt Metastatic to bone other (Other) Other No DVT or PE. No Known Problems Son No Known Problems Daughter Social History Tobacco Use Smoking status: Never Smokeless tobacco: Never Tobacco comments: FAther smoking in childhood home. Has lived with smoker in home, son quit about 2016. Vaping Use Vaping Use: Never used Substance Use Topics Alcohol use: No Drug use: No Reviewed current medications, allergies, past medical history, surgical history, family history andsocial history today. REVIEW OF SYSTEMS All other reviewed and negative other than HPI. VITALS: BP 150/98 Pulse 79 Ht 154.9 cm (5' 1) Wt 103.9 kg (229 lb) LMP 03/21/2005 SpO2 96% BMI43.27 kg/m Last 4 Encounter Wt Readings: Date: Wt: 01/22/2022 103.9 kg (229 lb) 01/10/2022 104.8 kg (231 lb) 07/03/2021 103.4 kg (228 lb) 04/04/2021 106.1 kg (234 lb) PHYSICAL EXAMINATION: General appearance: Well appearing, alert, in no acute distress, well-hydrated, well nourished. Skin: Skin color, texture, turgor normal, no suspicious rashes or lesions Lungs: Lungs clear to auscultation. No wheezing, rhonchi, rales Heart: RRR without murmur, gallop, or rubs. No ectopy Abdomen: Normal abdominal exam, Abdomen soft, non-tender. Bowel sounds normal. No masses, organomegaly Extremities: no increased edema ASSESSMENT/PLAN: 1. Iron deficiency anemia, unspecified iron deficiency anemia type - ICD9: 280.9, ICD10: D50.9 (primary diagnosis) - reinforced need for compliance. Explained why it is important to follow our directions. Stay on iron. Gi is planning on capsule endoscopy. Check labs. Get hospital records to confirm meds. Follow with me in eight weeks. 2. Encounter for immunization - ICD9: V03.89, ICD10: Z23 - INFLUENZA VACCINE QUADRIVALENT 6 MO - 64 YRS IM 3. SOB (shortness of breath) - ICD9: 786.05, ICD10: R06.02 4. Type 2 diabetes mellitus with diabetic neuropathy, with long-term current use of insulin (HCC) -ICD9: 250.60, 357.2, V58.67, ICD10: E11.40, Z79.4 Controlled. - Continue current medications 5. Essential hypertension, benign - ICD9: 401.1, ICD10: I10 - suboptimal control - get records since unsure of current meds. - BASIC METABOLIC PNL Barak Tiwari MD documented in this encounterCleveland Clinic Foundation09-19-2022 Miscellaneous Notes* Telephone Encounter - Nancy Andrea LPN - 01/13/2022 10:[address] done. Records on Dr Tiwari desk for review. Patient in [facility]. * Telephone Encounter - Lidia Landin RN - 01/10/2022 4:00 PM EDT Patient calls back and is notified that D Dimer is high and that she needs to get STAT CT Scan done. Patient states that she will go to [facility] ER. Order faxed to [phone] per [facility] ER Lidia Landin RN * Telephone Encounter - Nancy Andrea LPN - 01/10/2022 1:59 PM EDT Left message for patient to call office NILE. * Telephone Encounter - Barak Tiwari MD - 01/10/2022 1:07 PM EDT Her d dimer is up, needs stat CT for PE today * Telephone Encounter - Jaquan Mar RN - 01/10/2022 1:03 PM EDT [facility] Lab reporting Critical D-Dimer 1.21. They will fax results to Dr. Tiwari. documented in this encounterCleveland Clinic Foundation09-19-2022 Miscellaneous Notes* Telephone Encounter - Nancy Andrea LPN - 01/13/2022 10:08 AM EDT On desk for review. Patient admitted. * Telephone Encounter - Barak Tiwari MD - 01/13/2022 8:18 AM EDT We had sent her to the ER for her elevated d dimer Thursday night. Also her hb was only 7.2. can we get a copy of the ER notes. I think she may have went to [facility] documented in this encounterCleveland Clinic Foundation09-16-2022 Instructions* Patient Instructions* Barak Tiwari MD - 01/10/2022 11:37 AM EDT Hold metoprolol the day before and morning of her stress test documented in this encounterCleveland Clinic Foundation09-16-2022 History of Present illness Narrative* Barak Tiwari MD - 01/10/2022 10:24 AM EDT Patient presents with: 6 Month Exam HPI: Patient presents today for office visit for DM: Reports overall feeling well. Seeing Dr Ramos. Medication side effects: No. Home sugar check frequency/results:in the morning, with meals, and at night Hypoglycemic spells: sometimes. Will happen at night. Notes that she has a reading of 89 recently that woke her up. Watching diet: Yes. Unexpected weight loss: No. Polyuria, polydipsia: No. Vision Changes: No. Foot lesions or numbness or pain: No. HTN: Patient is compliant with meds Yes Monitors bp at home: No. Denies side effects: Yes. Chest pain: No. Dyspnea: Yes. Edema: has improved. Palpitations: No. Syncope: No. Headache: No. Dizziness: sometimes when she wakes up. This this is when she sleeps really heavy. Never was able to find anyway to use CPAP even after working with sleep lab at [facility]. Complains of feeling short winded when walking. Denies cough, chest pain. Didn't get chest x-ray done thought someone was going to call her. States that it feels heavy in her chest like someone is squeezing her lungs. Denies any extra edema states that actually seems improved. She had a previous infiltrate on ct from the ER and was to have gotten it when in the office that day. Has been going on for about three months. No pain. Feels like she cannot catch her breath. Does get some chest heaviness. Worse with exertion. Worse on hot and humid days. Cant tell me how long it lasts. Last time she had it was last week Hx of PE in 2018. Echo done this year: - The left ventricle is normal in size. Left ventricular systolic function is normal. EF = 62 5% (2D biplane) Indeterminate left ventricular diastolic dysfunction. - The right ventricle is normal in size. Right ventricular systolic function is normal. - The left atrial cavity is mildly dilated. - There are no significant valvular abnormalities. - Exam was compared with the prior echocardiographic exam performed on 06/22/2017, no significant change. THYROID: Patient is compliant with medications: Yes Patient has changes in energy: Feeling tired. New job working 5 days per week 8 hours a day for [employer]. Patient has changes in hair or skin: still with the itching to her legs Patient has temperature intolerance: No Patient has weight changes: No Orders for TSH and T4 Free Direct from Dr Ramos. Component Latest Ref Rng & Units 07/12/2021 12/18/2021 WBC 3.70 - 11.00 k/uL 5.06 RBC 3.90 - 5.20 m/uL 4.00 Hemoglobin 11.5 - 15.5 g/dL 9.8 (L) Hematocrit 36.0 - 46.0 % 31.4 (L) MCV 80.0 - 100.0 fL 78.5 (L) MCH 26.0 - 34.0 pg 24.5 (L) MCHC 30.5 - 36.0 g/dL 31.2 RDW-CV 11.5 - 15.0 % 15.9 (H) Platelet Count 150 - 400 k/uL 234 MPV 9.0 - 12.7 fL 8.3 (L) Neut% % 63.0 Abs Neut (ANC) 1.45 - 7.50 k/uL 3.19 Lymph% % 21.9 Abs Lymph 1.00 - 4.00 k/uL 1.11 Wells% % 11.7 Abs Wells <0.87 k/uL 0.59 Eosin% % 2.4 Abs Eosin <0.46 k/uL 0.12 Baso% % 0.8 Abs Baso <0.11 k/uL 0.04 Immature Gran % % 0.2 IMMATURE GRANS (ABS) <0.10 k/uL <0.03 NRBC /100 WBC 0.0 Absolute nRBC <0.01 k/uL <0.01 DTYPE Auto Protein, Total 6.3 - 8.0 g/dL 8.9 (H) Albumin 3.9 - 4.9 g/dL 3.4 (L) Calcium 8.5 - 10.2 mg/dL 8.7 Bilirubin, Total 0.2 - 1.3 mg/dL 0.5 Alkaline Phosphatase 34 - 123 U/L 59 AST 13 - 35 U/L 25 ALT 7 - 38 U/L 13 Glucose 74 - 99 mg/dL 95 BUN 7 - 21 mg/dL 16 Creatinine 0.58 - 0.96 mg/dL 0.67 Sodium 136 - 144 mmol/L 136 Potassium 3.7 - 5.1 mmol/L 4.1 Chloride 97 - 105 mmol/L 104 CO2 22 - 30 mmol/L 22 Anion Gap 9 - 18 mmol/L 10 eGFR >=60 mL/min/1.73m 104 Hemoglobin A1C 4.3 - 5.6 % 6.1 (H) 6.0 (H) Estimated Average Glucose mg/dL 128 126 Thyroglobulin Ab <14.4 IU/mL 6.3 TSH 0.270 - 4.200 mIU/L 0.064 (L) MEDICATIONS: Current Outpatient Medications Medication Sig SITagliptin-metFORMIN (JANUMET) 50-1,000 mg per tablet Take 1 tablet by mouth twice daily with meals. insulin aspart, niacinamide, (FIASP FLEXTOUCH U-100 INSULIN) 100 unit/mL (3 mL) pen Use 16 units sqq breakfast and 18 units sq at lunch and 18 units at dinner insulin detemir U-100 (LEVEMIR FLEXTOUCH U-100 INSULIN) 100 unit/mL (3 mL) injection pen Inject 74 Units subcutaneously daily at bedtime. omeprazole (PRILOSEC) 40 mg capsule Take 1 capsule by mouth once daily. levothyroxine (SYNTHROID) 200 mcg tablet Take 1 tablet by mouth once daily. Thursday through Thursday, 1/2 tab on Thursday escitalopram oxalate (LEXAPRO) 10 mg tablet One pill by mouth daily. atorvastatin (LIPITOR) 40 mg tablet Take 1 tablet by mouth once daily. For cholesterol. SUMAtriptan (IMITREX) 50 mg tablet Take 1 tablet by mouth as needed for migraine headache (see administration instructions). losartan (COZAAR) 100 mg tablet Take 1 tablet by mouth once daily. ferrous sulfate 325 mg (65 mg iron) tablet Take 1 tablet by mouth twice daily with meals. metoprolol succinate ER (TOPROL XL) 50 mg 24 hr tablet Take 1 tablet by mouth once daily. alcohol swabs (BD SINGLE USE SWABS REGULAR) For use with insulin injections 4 times daily insulin needles, DISPOSABLE, (PEN NEEDLE) 31 gauge x 5/16 Use one needle per dose. 4 per day. Insulin [place], Disposable, (UNIFINE PENTIPS) 31 gauge x 1/4 ndle use 1 (ONE) new needle with each dose, FOUR per day. loratadine (CLARITIN) 10 mg tablet Take 1 tablet by mouth once daily. hydrocortisone (PROCTOCORT) 1 % cream Apply to affected area twice daily. blood sugar diagnostic (BLOOD GLUCOSE TEST) test strip Test blood sugar(s) 4 times daily. Dx: Type 2 DM - Controlled E11.9 Insulin: Yes flash glucose scanning reader (FREESTYLE SHIVAM 10 DAY READER) 1 Each once every month. Lancets lancets Test blood sugar(s) 4 times daily. Dx: Type 2 DM - Controlled E11.9 Insulin: Yes Blood-Glucose Meter [facility] Dispense 1 kit iv contrast (will be provided with radiology test) CT Urogram WO/W Inject, intravenously, once for 1 dose.No IV access, insert saline lock prior to the beginning of sedation, infusion, injection of imaging exam. Discontinue saline lock post exam. If Pt. has a central line or IVAD, may access for administration according to line specific nursing protocol. Once exam is complete flush line and de-access according to line specific nursing protocol in the CT contrast administration guidelines link. blood sugar diagnostic (BLOOD GLUCOSE TEST) test strip Test blood sugar(s) 4 times daily. Dx: Type 2 DM - Controlled E11.9 Insulin: Yes COMPOUNDED PRESCRIPTION CR 2032 BATTERIES FOR GLUCOSE METER, ACCUCHEK SMARTVIEW TESTING 4 TIMES DAILY INSULIN YES DXE11.9 COMPOUNDED PRESCRIPTION Diabetic Shoes DX: Type 2 Diabetes E11.9 Current Facility-Administered Medications Medication Dose Route Frequency perflutren lipid microspheres 1.3 mL in NaCl (PF) 0.9% 10 mL injection (DEFINITY) INTRAVENOUS DIRECTED PRN sodium chloride 0.9 % (flush) 10 mL (BD POSIFLUSH) 10 mL INTRAVENOUS DIRECTED PRN ALLERGIES: ALLERGIES Allergen Reactions Lasix [Furosemide] Rash Latex Itching Prinivil [Lisinopri* Cough Zanaflex [Tizanidin* Shortness of Breath PAST MEDICAL HISTORY Diagnosis Date Adjustment disorder with depressed mood Esophageal reflux Essential hypertension, benign Generalized anxiety disorder HLD (hyperlipidemia) Menorrhagia Migraine without aura Morbid obesity (HCC) Nonspecific abnormal results of other endocrine function study 06/2004 Benign biopsy. Abnormally high thyroid globulin Pulmonary emboli (HCC) 09/2013 Bilateral on CTA chest. Scleritis Type II or unspecified type diabetes mellitus without mention of complication, not stated as uncontrolled PAST SURGICAL HISTORY Procedure Laterality Date CARPAL TUNNEL Right 12/10 CHOLECYSTECTOMY 11/15/2019 Dr. Ferguson EGD 03/07/2020 Dr Ferguson LIG/TRNSXJ FLP TUBE ABDL/VAG APPR UNI/BI 1988 THYROID BIOPSY US 11/2015 THYROIDECTOMY TOTAL/COMPLETE Left 12/13/2018 Dr Ferguson TOTAL THYROID LOBECTOMY UNI W/WO ISTHMUSECTOMY 01/15/07 right XCAPSL CTRC RMVL INSJ IO LENS PROSTH W/O ECP Right 06/2015 Cataract Extraction with PC IOL XCAPSL CTRC RMVL INSJ IO LENS PROSTH W/O ECP Left 07/2015 Cataract Extraction with PC IOL FAMILY HISTORY Problem Relation Age of Onset Hypertension Mother Diabetes Mother Thyroid Mother thyroidectomy Heart Mother murmur Heart Father of [place] Diabetes Brother Hypertension Brother No Known Problems Brother other (Other) Maternal Grandmother Pneumothorax Breast Cancer Maternal Aunt Metastatic to bone other (Other) Other No DVT or PE. No Known Problems Son No Known Problems Daughter Social History Tobacco Use Smoking status: Never Smokeless tobacco: Never Tobacco comments: FAther smoking in childhood home. Has lived with smoker in home, son quit about 2016. Vaping Use Vaping Use: Never used Substance Use Topics Alcohol use: No Drug use: No Reviewed current medications, allergies, past medical history, surgical history, family history andsocial history today. REVIEW OF SYSTEMS All other reviewed and negative other than HPI. HEALTH MAINTENANCE: Reviewed health maintenance issues today and recommended the following in detail. DILATED RETINAL EXAM -done in the last [facility]OR[facility] SCREENING[facility] VITALS: BP 172/82 Pulse 76 Wt 104.8 kg (231 lb) LMP 03/21/2005 BMI 43.06 kg/m Last 4 Encounter Wt Readings: Date: Wt: 07/03/2021 103.4 kg (228 lb) 04/04/2021 106.1 kg (234 lb) 02/19/2021 106.6 kg (235 lb) 02/08/2021 106.6 kg (235 lb) PHYSICAL EXAMINATION: General appearance: Well appearing, alert, in no acute distress, well-hydrated, well nourished. Skin: Skin color, texture, turgor normal, no suspicious rashes or lesions Head: Normocephalic, no masses, lesions, tenderness or abnormalities Lungs: Lungs clear to auscultation. No wheezing, rhonchi, rales Heart: murmur unchanged. Abdomen: Normal abdominal exam, Abdomen soft, non-tender. Bowel sounds normal. No masses, organomegaly Extremities: less edematous Musculoskeletal: No joint swelling, deformity, or tenderness ASSESSMENT/PLAN: 1. Type 2 diabetes mellitus with diabetic neuropathy, with long-term current use of insulin (HCC) -ICD9: 250.60, 357.2, V58.67, ICD10: E11.40, Z79.4 (primary diagnosis) - stable. 2. Essential hypertension, benign - ICD9: 401.1, ICD10: I10 - suboptimal control - Continue current medication(s) - Follow up in 1 month for BP recheck. - Goal of BP <130/80 - LOSARTAN 100 MG TABLET - METOPROLOL SUCCINATE ER 50 MG TABLET,EXTENDED RELEASE 24 HR 3. Anemia, unspecified type - ICD9: 285.9, ICD10: D64.9 - follow labs. - FERROUS SULFATE 325 MG (65 MG IRON) TABLET 4. Other hyperlipidemia - ICD9: 272.4, ICD10: E78.49 -stable. 5. Other chronic pulmonary embolism without acute cor pulmonale (HCC) - ICD9: 416.2, ICD10: I27.82 - given hx. Check d dimer. 6. CANCER M->Z THYROID - ICD9: 193, ICD10: C73 - get labs for endo - TSH BLD - T4 FREE/FREE THYROX 7. Lymphedema - ICD9: 457.1, ICD10: I89.0 - stable. 8. SOB (shortness of breath) - ICD9: 786.05, ICD10: R06.02 Get stress test and stat dimer, chest xray. - Red flags for re-assessment reviewed with patient in detail. - close follow up . - ECG COMPLETE- shows RBBB, inferior changes - XR CHEST 2V FRONTAL/LAT - CBC + DIFF - BASIC METABOLIC PNL - NT PRO BNP - D-DIMER 9. Chest discomfort - ICD9: 786.59, ICD10: R07.89 - as above - ECG COMPLETE - XR CHEST 2V FRONTAL/LAT - CBC + DIFF - BASIC METABOLIC PNL - NT PRO BNP - D-DIMER 10. Screening for colon cancer - ICD9: V76.51, ICD10: Z12.11 - COLOGUARD Barak Tiwari MD documented in this encounterCleveland Clinic Foundation09-07-2022 History of Present illness Narrative* Ailyn Yousif MA - 01/01/2022 11:19 AM EDT POPULATION HEALTH NAVIGATION OUTREACH Action/FYI Called and left a message to call [phone], to discuss health maintenance items that are due. PCP appt: 01/10/22 My chart activation: inactive Advance directive: needs info HM due: ZEESHAN Flu My chart and AD HCC-E66.01 - Morbid (severe) obesity due to excess calories Pt identified by name and : NO Outreach Outcome/Action Unable to reach patient: Left message Did you use a PCP flex slot to schedule this appointment? N/A Reason for Outreach Care Gap or Scheduling/Wellness visits Payer: Payor: [employer] MEDICARE / Plan: [employer] GOLD PLUS / Product Type: HMO / Care Gap Reviewed:: Diabetic Eye Exam Flu vaccine Reminder: Reminder note to check Health Maintenance for items below Health Maintenance items due: HEPATITIS B(1 of 3 - 3-dose series) Never done HIV SCREENING Never done COVID-19 VACCINE(3 - Booster for Moderna series) due on 03/11/2021 LDL CHOLESTEROL due on 04/12/2021 DILATED RETINAL EXAM due on 10/02/2021 INFLUENZA(1) due on 12/26/2021 URINE ALBUMIN:CREATININE RATIO due on 01/29/2022 Message Sent to Practice: No Navigation Signature: Ailyn Yousif MA January 01, 2022 11:21 AM documented in this encounterCleveland Clinic Foundation08-23-2022 Miscellaneous Notes* Telephone Encounter - Lizet Cisneros RN - 12/17/2021 4:22 PM EDT 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 Nurse triage completed. Protocol recommends Home Care. Reviewed with patient home care and dramamine. Patient verbalizes understanding and will try medication. If patient has further concerns/questions will call back. Reason for Disposition Treating motion sickness symptoms, questions about Answer Assessment - Initial Assessment Questions 1. SYMPTOMS: Motion sickness and nauseous feeling during and after bus rides. 2. SEVERITY: Not affecting walking. 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 3. 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 4. RECURRENT SYMPTOM: Yes, Patient reports that as a child she had trouble with motion sickness. She took medication but not certain what. She reports that when she started driving herself she didn'thave any trouble but now that she is a passenger again it has started back up. 5. CAUSE: Riding on the bus. 6. OTHER SYMPTOMS: No headache, weakness, numbness, vomiting, or earache. Does feel nauseous and like she could vomit while on the bus and for a short time after. 7. : No Protocols used: Motion [id number] * Telephone Encounter - Lizet Cisneros RN - 12/17/2021 4:09 PM EDT Call placed to patient with no answer. Message left to call back and ask to speak to a triage nurseto discuss symptoms/request. Lizet Cisneros RN * Telephone Encounter - Patty Vasques Pss - 12/17/2021 3:43 PM EDT Patient is riding for [employer] and is suffering from motion sickness. She would like to know if a medication can be called in for her. She has a follow up with Dr. iTwari next month on 01-10, but would like called in sooner. Please advise. documented in this encounterCleveland Clinic Foundation07-20-2022 Miscellaneous Notes* Telephone Encounter - Lidia Landin RN - 11/13/2021 4:37 PM EDT Patient calls and states that she needs refills on her insulin. Please review and advise, Lidia Landin RN documented in this encounterCleveland Clinic Foundation06-21-2022 Miscellaneous Notes* Telephone Encounter - Lizet Cisneros RN - 10/15/2021 8:26 AM EDT Patient has been identified by name and date of : Yes Patient phones for refill(s): Pending Prescriptions Disp Refills OMEPRAZOLE 40 MG CAPSULE,DELAYED RELEASE 90 capsule 1 Sig: Take 1 capsule by mouth once daily. TOMY: No Date of last office visit with pcp: 07/03/2021 Future appt: 01/10/2022 Last 2 Encounter Wt Readings: Date: Wt: 07/03/2021 103.4 kg (228 lb) 04/04/2021 106.1 kg (234 lb) Previous labs/tests for medication: Blood Pressure: BUN (mg/dL) Date Value 07/12/2021 16 02/06/2021 17 Sodium (mmol/L) Date Value 07/12/2021 136 02/06/2021 134 Last 1 Encounter BP Readings: Date: BP: 08/02/2021 126/78 Liver Function: ALT (U/L) Date Value 07/12/2021 13 04/12/2020 16 AST (U/L) Date Value 07/12/2021 25 04/12/2020 23 Please advise. Thank you. Lizet Cisneros RN documented in this encounterCleveland Clinic Foundation05-12-2022 Miscellaneous Notes* Telephone Encounter - Lizet Cisneros RN - 09/05/2021 4:12 PM EDT Patient calls to report SOB for past several weeks. Reports chest pressure and upper back pain. History of bilateral pulmonary emboli. Nurse triage completed. Protocol recommends go to ED Now. Patient agreeable. Offered to call ambulance for patient. Patient declined. Care advice reviewed with patient verbalizing understanding. Reason for Disposition Difficulty breathing, severe [1] MODERATE difficulty breathing (e.g., speaks in phrases, SOB even at rest, pulse 100-120) AND [2] NEW-onset or WORSE than normal Answer Assessment - Initial Assessment Questions 1. RESPIRATORY STATUS: Several weeks of SOB with exertion with wheezing at night while laying down.Coughing mostly at night time. 2. ONSET: about 3 weeks ago. 3. PATTERN: Different throughout day depending on acitivty. 4. SEVERITY: - MODERATE: SOB at rest, SOB with minimal exertion and prefers to sit, cannot lie downflat, speaks in phrases, mild retractions, audible wheezing, pulse 100-120. 5. RECURRENT SYMPTOM: Yes 5 or 6 years ago and was diagnosed with pulmonary emboli in both lungs. 6. CARDIAC HISTORY: HTN, HLD 7. LUNG HISTORY: Bilateral Pulmonary Embolism 8. CAUSE: Not certain 9. OTHER SYMPTOMS: Denies dizziness, runny nose, cough, chest pain, or fever. Reports chest pressure and back pain. Not as bad today but yesterday it felt like her chest was closing in on her lungs and had pain across back. Protocols used: RESPIRATORY MULTIPLE SYMPTOMS - GUIDELINE [id number], BREATHING [id number] documented in this encounterC[facility]04-26-2022 Miscellaneous Notes* Telephone Encounter - Ignacia Godoy LPN - 08/20/2021 10:56 AM EDT [facility] called to report they will be faxing an Rx request for diabetic testing supplies to provider. Fax # given. Called pt to ask if she wants Rx to go to [facility] & she does NOT want that, she states she uses [facility]. Pt asking if she can get an Rx for insulin pens for 15 pens rather than 5 as she has in the past ? New Rx pending. Ignacia Godoy LPN documented in this encounterCleveland Clinic Foundation04-08-2022 Miscellaneous Notes* Telephone Encounter - Barak Tiwari MD - 08/02/2021 1:18 PM EDT bp is ok. * Telephone Encounter - Jyoti Valerio LPN - 08/02/2021 1:01 PM EDT Manual Readin/78 Pulse: 62 Reason for blood pressure check - Last BP elevated Patient is: Taking medication as prescribed Yes Took medication today Yes If no, date medication last taken N/A Experiencing side effects No BP was elevated at last appt 07/03/21. No BP medication changes were made at that time. Taking all medications as prescribed. Denies any chest pain, unusual shortness of breath, dizziness, or headaches. No caffeine use. No personal history of tobacco use; no current exposure. Alert and oriented. Pt has been identified by name and birthdate: Yes Allergies reviewed: Yes Latex allergy: no. Medication - prescribed and OTC reviewed and updated: Yes Do you need any prescription refills prior to your next visit: No Health Maintenance: Reviewed and not up to date and provider notified Patient advised to continue with current medications and would be contacted if any further instructions after review by PCP. Jyoti Valerio LPN documented in this encounterC[facility]04-08-2022 History of Present illness Narrative* Jyoti Valerio LPN - 08/02/2021 1:00 PM EDT Manual Readin/78 Pulse: 62 Reason for blood pressure check - Last BP elevated Patient is: Taking medication as prescribed Yes Took medication today Yes If no, date medication last taken N/A Experiencing side effects No BP was elevated at last appt 07/03/21. No BP medication changes were made at that time. Taking all medications as prescribed. Denies any chest pain, unusual shortness of breath, dizziness, or headaches. No caffeine use. No personal history of tobacco use; no current exposure. Alert and oriented. Pt has been identified by name and birthdate: Yes Allergies reviewed: Yes Latex allergy: no. Medication - prescribed and OTC reviewed and updated: Yes Do you need any prescription refills prior to your next visit: No Health Maintenance: Reviewed and not up to date and provider notified Patient advised to continue with current medications and would be contacted if any further instructions after review by PCP. Jyoti Valerio LPN documented in this encounterCleveland Clinic Foundation04-12-2021 History of Present illness Narrative* Shanthi Epperson)Sonya - 08/06/2020 1:30 PM EDT Radiology Service Progress Note PATIENT NAME: Jesus Zepeda DATE OF SERVICE: August 06, 2020 TIME: 1:30 PM PATIENT IDENTITY VERIFICATION COMPLETED USING TWO (2) IDENTIFIERS: Name and Date of confirmedby patient verbally. FALL SCREENING: Has the patient had 2 falls in the last year or 1 fall with injury or currently using an Ambulatory Assistive Device (Walker, Cane, Wheelchair, Crutches, etc.)? No PATIENT GENDER DATA: Female. status: : No status: NO. PATIENT RELEVANT IMPLANT DATA REVIEWED: Yes RADIOLOGY DEPARTMENT: General X-ray: Exam(s) Completed: Upper Extremity X- Ray(s): Wrist, left : PERIPHERAL IV DATA: Not applicable SIGNED BY: RT Melissa August 06, 2020 1:30 PM documented in this encounterCleveland Clinic Foundation03-16-2017 History of Past illness Narrative* Problem Noted Date Resolved Date Morbid obesity 07/10/2016 01/08/2022 Right carpal tunnel syndrome 09/25/201512/2021 Mixed hyperlipidemia 06/25/2015 11/06/2015 Irregular menstrual cycle 11/02/20122015 documented as of this encounter (statuses as of 01/10/2022) [facility] Narrative* Problem Noted Date Resolved Date Morbid obesity 07/10/2016 01/08/2022 Right carpal tunnel syndrome 09/25/201512/2021 Mixed hyperlipidemia 06/25/2015 11/06/2015 Irregular menstrual cycle 11/02/20122015 documented as of this encounter (statuses as of 01/13/2022) [facility] Narrative* Problem Noted Date Resolved Date Morbid obesity 07/10/2016 01/08/2022 Right carpal tunnel syndrome 09/25/201512/2021 Mixed hyperlipidemia 06/25/2015 11/06/2015 Irregular menstrual cycle 11/02/20122015 documented as of this encounter (statuses as of 01/14/2022) [facility] of [facility] Narrative* Problem Noted Date Resolved Date Morbid obesity 07/10/2016 01/08/2022 Right carpal tunnel syndrome 09/25/201512/2021 Mixed hyperlipidemia 06/25/2015 11/06/2015 Irregular menstrual cycle 11/02/20122015 documented as of this encounter (statuses as of 01/22/2022) [address]16-2017 History of Past illness Narrative* Problem Noted Date Resolved Date Morbid obesity 07/10/2016 01/08/2022 Right carpal tunnel syndrome 09/25/201512/2021 Mixed hyperlipidemia 06/25/2015 11/06/2015 Irregular menstrual cycle 11/02/20122015 documented as of this encounter (statuses as of 01/28/2022) [address]16-2017 History of Past illness Narrative* Problem Noted Date Resolved Date Morbid obesity 07/10/2016 01/08/2022 Right carpal tunnel syndrome 09/25/201512/2021 Mixed hyperlipidemia 06/25/2015 11/06/2015 Irregular menstrual cycle 11/02/20122015 documented as of this encounter (statuses as of 01/28/2022) [address]16-2017 History of Past illness Narrative* Problem Noted Date Resolved Date Morbid obesity 07/10/2016 01/08/2022 Right carpal tunnel syndrome 09/25/201512/2021 Mixed hyperlipidemia 06/25/2015 11/06/2015 Irregular menstrual cycle 11/02/20122015 documented as of this encounter (statuses as of 02/01/2022) [address]16-2017 History of Past illness Narrative* Problem Noted Date Resolved Date Morbid obesity 07/10/2016 01/08/2022 Right carpal tunnel syndrome 09/25/201512/2021 Mixed hyperlipidemia 06/25/2015 11/06/2015 Irregular menstrual cycle 11/02/20122015 documented as of this encounter (statuses as of 02/03/2022) [address]16-2017 History of Past illness Narrative* Problem Noted Date Resolved Date Morbid obesity 07/10/2016 01/08/2022 Right carpal tunnel syndrome 09/25/201512/2021 Mixed hyperlipidemia 06/25/2015 11/06/2015 Irregular menstrual cycle 11/02/20122015 documented as of this encounter (statuses as of 02/07/2022) [address]16-2017 History of Past illness Narrative* Problem Noted Date Resolved Date Morbid obesity 07/10/2016 01/08/2022 Right carpal tunnel syndrome 09/25/201512/2021 Mixed hyperlipidemia 06/25/2015 11/06/2015 Irregular menstrual cycle 11/02/20122015 documented as of this encounter (statuses as of 02/25/2022) [address]16-2017 History of Past illness Narrative* Problem Noted Date Resolved Date Morbid obesity 07/10/2016 01/08/2022 Right carpal tunnel syndrome 09/25/201512/2021 Mixed hyperlipidemia 06/25/2015 11/06/2015 Irregular menstrual cycle 11/02/20122015 documented as of this encounter (statuses as of 03/15/2022) [facility]* Problem Noted Date Resolved Date Morbid obesity 07/10/2016 01/08/2022 Right carpal tunnel syndrome 09/25/201512/2021 Mixed hyperlipidemia 06/25/2015 11/06/2015 Irregular menstrual cycle 11/02/20122015 documented as of this encounter (statuses as of 03/17/2022) [facility] Narrative* Problem Noted Date Resolved Date Morbid obesity 07/10/2016 01/08/2022 Right carpal tunnel syndrome 09/25/201512/2021 Mixed hyperlipidemia 06/25/2015 11/06/2015 Irregular menstrual cycle 11/02/20122015 documented as of this encounter (statuses as of 03/19/2022) [facility] Narrative* Problem Noted Date Resolved Date Morbid obesity 07/10/2016 01/08/2022 Right carpal tunnel syndrome 09/25/201512/2021 Mixed hyperlipidemia 06/25/2015 11/06/2015 Irregular menstrual cycle 11/02/20122015 documented as of this encounter (statuses as of 04/04/2022) [facility] Narrative* Problem Noted Date Resolved Date Morbid obesity 07/10/2016 01/08/2022 Right carpal tunnel syndrome 09/25/201512/2021 Mixed hyperlipidemia 06/25/2015 11/06/2015 Irregular menstrual cycle 11/02/20122015 documented as of this encounter (statuses as of 04/10/2022) [address]16-2017 History of Past illness Narrative* Problem Noted Date Resolved Date Morbid obesity 07/10/2016 01/08/2022 Right carpal tunnel syndrome 09/25/201512/2021 Mixed hyperlipidemia 06/25/2015 11/06/2015 Irregular menstrual cycle 11/02/20122015 documented as of this encounter (statuses as of 04/14/2022) [facility]arrative* Problem Noted Date Resolved Date Morbid obesity 07/10/2016 01/08/2022 Right carpal tunnel syndrome 09/25/201512/2021 Mixed hyperlipidemia 06/25/2015 11/06/2015 Irregular menstrual cycle 11/02/20122015 documented as of this encounter (statuses as of 05/14/2022) [facility] Narrative* Problem Noted Date Resolved Date Morbid obesity 07/10/2016 01/08/2022 Right carpal tunnel syndrome 09/25/201512/2021 Mixed hyperlipidemia 06/25/2015 11/06/2015 Irregular menstrual cycle 11/02/20122015 documented as of this encounter (statuses as of 05/16/2022) [address]16-2017 History of Past illness Narrative* Problem Noted Date Resolved Date Morbid obesity 07/10/2016 01/08/2022 Right carpal tunnel syndrome 09/25/201512/2021 Mixed hyperlipidemia 06/25/2015 11/06/2015 Irregular menstrual cycle 11/02/20122015 documented as of this encounter (statuses as of 05/23/2022) [address]16-2017 History of Past illness Narrative* Problem Noted Date Resolved Date Morbid obesity 07/10/2016 01/08/2022 Right carpal tunnel syndrome 09/25/201512/2021 Mixed hyperlipidemia 06/25/2015 11/06/2015 Irregular menstrual cycle 11/02/20122015 documented as of this encounter (statuses as of 05/26/2022) [address]16-2017 History of Past illness Narrative* Problem Noted Date Resolved Date Morbid obesity 07/10/2016 01/08/2022 Right carpal tunnel syndrome 09/25/201512/2021 Mixed hyperlipidemia 06/25/2015 11/06/2015 Irregular menstrual cycle 11/02/20122015 documented as of this encounter (statuses as of 06/06/2022) [facility]* Problem Noted Date Resolved Date Morbid obesity 07/10/2016 01/08/2022 Right carpal tunnel syndrome 09/25/201512/2021 Mixed hyperlipidemia 06/25/2015 11/06/2015 Irregular menstrual cycle 11/02/20122015 documented as of this encounter (statuses as of 06/19/2022) [address]16-2017 History of Past illness Narrative* Problem Noted Date Resolved Date Morbid obesity 07/10/2016 01/08/2022 Right carpal tunnel syndrome 09/25/201512/2021 Mixed hyperlipidemia 06/25/2015 11/06/2015 Irregular menstrual cycle 11/02/20122015 documented as of this encounter (statuses as of 06/20/2022) [facility]arr[facility]* Problem Noted Date Resolved Date Morbid obesity 07/10/2016 01/08/2022 Right carpal tunnel syndrome 09/25/201512/2021 Mixed hyperlipidemia 06/25/2015 11/06/2015 Irregular menstrual cycle 11/02/20122015 documented as of this encounter (statuses as of 06/20/2022) [address]16-2017 History of Past illness Narrative* Problem Noted Date Resolved Date Morbid obesity 07/10/2016 01/08/2022 Right carpal tunnel syndrome 09/25/201512/2021 Mixed hyperlipidemia 06/25/2015 11/06/2015 Irregular menstrual cycle 11/02/20122015 documented as of this encounter (statuses as of 06/23/2022) [address]16-2017 History of Past illness Narrative* Problem Noted Date Resolved Date Morbid obesity 07/10/2016 01/08/2022 Right carpal tunnel syndrome 09/25/201512/2021 Mixed hyperlipidemia 06/25/2015 11/06/2015 Irregular menstrual cycle 11/02/20122015 documented as of this encounter (statuses as of 06/24/2022) [address]16-2017 History of Past illness Narrative* Problem Noted Date Resolved Date Morbid obesity 07/10/2016 01/08/2022 Right carpal tunnel syndrome 09/25/201512/2021 Mixed hyperlipidemia 06/25/2015 11/06/2015 Irregular menstrual cycle 11/02/20122015 documented as of this encounter (statuses as of 06/24/2022) [address]16-2017 History of Past illness Narrative* Problem Noted Date Resolved Date Morbid obesity 07/10/2016 01/08/2022 Right carpal tunnel syndrome 09/25/201512/2021 Mixed hyperlipidemia 06/25/2015 11/06/2015 Irregular menstrual cycle 11/02/20122015 documented as of this encounter (statuses as of 06/30/2022) [facility]* Problem Noted Date Resolved Date Morbid obesity 07/10/2016 01/08/2022 Right carpal tunnel syndrome 09/25/201512/2021 Mixed hyperlipidemia 06/25/2015 11/06/2015 Irregular menstrual cycle 11/02/20122015 documented as of this encounter (statuses as of 07/01/2022) [facility]arr[facility]* Problem Noted Date Resolved Date Morbid obesity 07/10/2016 01/08/2022 Right carpal tunnel syndrome 09/25/201512/2021 Mixed hyperlipidemia 06/25/2015 11/06/2015 Irregular menstrual cycle 11/02/20122015 documented as of this encounter (statuses as of 07/03/2022) [facility]* Problem Noted Date Resolved Date Morbid obesity 07/10/2016 01/08/2022 Right carpal tunnel syndrome 09/25/201512/2021 Mixed hyperlipidemia 06/25/2015 11/06/2015 Irregular menstrual cycle 11/02/20122015 documented as of this encounter (statuses as of 07/07/2022) [facility]* Problem Noted Date Resolved Date Morbid obesity 07/10/2016 01/08/2022 Right carpal tunnel syndrome 09/25/201512/2021 Mixed hyperlipidemia 06/25/2015 11/06/2015 Irregular menstrual cycle 11/02/20122015 documented as of this encounter (statuses as of 07/19/2022) [address]16-2017 History of Past illness Narrative* Problem Noted Date Resolved Date Morbid obesity 07/10/2016 01/08/2022 Right carpal tunnel syndrome 09/25/201512/2021 Mixed hyperlipidemia 06/25/2015 11/06/2015 Irregular menstrual cycle 11/02/20122015 documented as of this encounter (statuses as of 07/22/2022) [address]16-2017 History of Past illness Narrative* Problem Noted Date Resolved Date Morbid obesity 07/10/2016 01/08/2022 Right carpal tunnel syndrome 09/25/201512/2021 Mixed hyperlipidemia 06/25/2015 11/06/2015 Irregular menstrual cycle 11/02/20122015 documented as of this encounter (statuses as of 08/07/2022) [address]16-2017 History of Past illness Narrative* Problem Noted Date Resolved Date Morbid obesity 07/10/2016 01/08/2022 Right carpal tunnel syndrome 09/25/201512/2021 Mixed hyperlipidemia 06/25/2015 11/06/2015 Irregular menstrual cycle 11/02/20122015 documented as of this encounter (statuses as of 08/19/2022) [address]16-2017 History of Past illness Narrative* Problem Noted Date Resolved Date Morbid obesity 07/10/2016 01/08/2022 Right carpal tunnel syndrome 09/25/201512/2021 Mixed hyperlipidemia 06/25/2015 11/06/2015 Irregular menstrual cycle 11/02/20122015 documented as of this encounter (statuses as of 08/19/2022) [address]16-2017 History of Past illness Narrative* Problem Noted Date Resolved Date Morbid obesity 07/10/2016 01/08/2022 Right carpal tunnel syndrome 09/25/201512/2021 Mixed hyperlipidemia 06/25/2015 11/06/2015 Irregular menstrual cycle 11/02/20122015 documented as of this encounter (statuses as of 08/27/2022) [address]16-2017 History of Past illness Narrative* Problem Noted Date Resolved Date Morbid obesity 07/10/2016 01/08/2022 Right carpal tunnel syndrome 09/25/201512/2021 Mixed hyperlipidemia 06/25/2015 11/06/2015 Irregular menstrual cycle 11/02/20122015 documented as of this encounter (statuses as of 08/28/2022) [address]16-2017 History of Past illness Narrative* Problem Noted Date Resolved Date Morbid obesity 07/10/2016 01/08/2022 Right carpal tunnel syndrome 09/25/201512/2021 Mixed hyperlipidemia 06/25/2015 11/06/2015 Irregular menstrual cycle 11/02/20122015 documented as of this encounter (statuses as of 08/30/2022) [facility]* Problem Noted Date Resolved Date Morbid obesity 07/10/2016 01/08/2022 Right carpal tunnel syndrome 09/25/201512/2021 Mixed hyperlipidemia 06/25/2015 11/06/2015 Irregular menstrual cycle 11/02/20122015 documented as of this encounter (statuses as of 09/02/2022) [facility]* Problem Noted Date Resolved Date Morbid obesity 07/10/2016 01/08/2022 Right carpal tunnel syndrome 09/25/201512/2021 Mixed hyperlipidemia 06/25/2015 11/06/2015 Irregular menstrual cycle 11/02/20122015 documented as of this encounter (statuses as of 09/24/2022) [facility]* Problem Noted Date Resolved Date Morbid obesity 07/10/2016 01/08/2022 Right carpal tunnel syndrome 09/25/201512/2021 Mixed hyperlipidemia 06/25/2015 11/06/2015 Irregular menstrual cycle 11/02/20122015 documented as of this encounter (statuses as of 09/26/2022) [facility]* Problem Noted Date Resolved Date Morbid obesity 07/10/2016 01/08/2022 Right carpal tunnel syndrome 09/25/201512/2021 Mixed hyperlipidemia 06/25/2015 11/06/2015 Irregular menstrual cycle 11/02/20122015 documented as of this encounter (statuses as of 10/01/2022) [facility]* Problem Noted Date Resolved Date Morbid obesity 07/10/2016 01/08/2022 Right carpal tunnel syndrome 09/25/201512/2021 Mixed hyperlipidemia 06/25/2015 11/06/2015 Irregular menstrual cycle 11/02/20122015 documented as of this encounter (statuses as of 10/09/2022) [facility] Problem Noted Date Resolved Date Morbid obesity 07/10/2016 01/08/2022 Right carpal tunnel syndrome 09/25/201512/2021 Mixed hyperlipidemia 06/25/2015 11/06/2015 Irregular menstrual cycle 11/02/20122015 documented as of this encounter (statuses as of 10/18/2022) [facility]* Problem Noted Date Resolved Date Morbid obesity 07/10/2016 01/08/2022 Right carpal tunnel syndrome 09/25/201512/2021 Mixed hyperlipidemia 06/25/2015 11/06/2015 Irregular menstrual cycle 11/02/20122015 documented as of this encounter (statuses as of 10/20/2022) [address]16-2017 History of Past illness Narrative* Problem Noted Date Resolved Date Morbid obesity 07/10/2016 01/08/2022 Right carpal tunnel syndrome 09/25/201512/2021 Mixed hyperlipidemia 06/25/2015 11/06/2015 Irregular menstrual cycle 11/02/20122015 documented as of this encounter (statuses as of 10/24/2022) [facility]* Problem Noted Date Diagnosed Date Resolved Date Morbid obesity 07/10/2016 01/08/2022 Right carpal tunnel syndrome 09/25/2015 07/03/2021 Mixed hyperlipidemia 06/25/2015 016 Irregular menstrual cycle 11/02/2012 documented as of this encounter (statuses as of 11/05/2022) [facility]* Problem Noted Date Diagnosed Date Resolved Date Morbid obesity 07/10/2016 01/08/2022 Right carpal tunnel syndrome 09/25/2015 07/03/2021 Mixed hyperlipidemia 06/25/2015 016 Irregular menstrual cycle 11/02/2012 documented as of this encounter (statuses as of 11/06/2022) [address]16-2017 History of Past illness Narrative* Problem Noted Date Diagnosed Date Resolved Date Morbid obesity 07/10/2016 01/08/2022 Right carpal tunnel syndrome 09/25/2015 07/03/2021 Mixed hyperlipidemia 06/25/2015 016 Irregular menstrual cycle 11/02/2012 documented as of this encounter (statuses as of 11/25/2022) [facility]* Problem Noted Date Diagnosed Date Resolved Date Morbid obesity 07/10/2016 01/08/2022 Right carpal tunnel syndrome 09/25/2015 07/03/2021 Mixed hyperlipidemia 06/25/2015 016 Irregular menstrual cycle 11/02/2012 documented as of this encounter (statuses as of 12/06/2022) [facility] Problem Noted Date Diagnosed Date Resolved Date Morbid obesity 07/10/2016 01/08/2022 Right carpal tunnel syndrome 09/25/2015 07/03/2021 Mixed hyperlipidemia 06/25/2015 016 Irregular menstrual cycle 11/02/2012 documented as of this encounter (statuses as of 12/17/2022) [facility]* Problem Noted Date Diagnosed Date Resolved Date Morbid obesity 07/10/2016 01/08/2022 Right carpal tunnel syndrome 09/25/2015 07/03/2021 Mixed hyperlipidemia 06/25/2015 016 Irregular menstrual cycle 11/02/2012 documented as of this encounter (statuses as of 01/02/2023) [facility]* Problem Noted Date Diagnosed Date Resolved Date Morbid obesity 07/10/2016 01/08/2022 Right carpal tunnel syndrome 09/25/2015 07/03/2021 Mixed hyperlipidemia 06/25/2015 016 Irregular menstrual cycle 11/02/2012 documented as of this encounter (statuses as of 01/06/2023) [facility]* Problem Noted Date Diagnosed Date Resolved Date Morbid obesity 07/10/2016 01/08/2022 Right carpal tunnel syndrome 09/25/2015 07/03/2021 Mixed hyperlipidemia 06/25/2015 016 Irregular menstrual cycle 11/02/2012 documented as of this encounter (statuses as of 03/01/2023) [facility] Problem Noted Date Diagnosed Date Resolved Date Morbid obesity 07/10/2016 01/08/2022 Right carpal tunnel syndrome 09/25/2015 07/03/2021 Mixed hyperlipidemia 06/25/2015 016 Irregular menstrual cycle 11/02/2012 documented as of this encounter (statuses as of 03/01/2023) [facility]* Problem Noted Date Diagnosed Date Resolved Date Morbid obesity 07/10/2016 01/08/2022 Right carpal tunnel syndrome 09/25/2015 07/03/2021 Mixed hyperlipidemia 06/25/2015 016 Irregular menstrual cycle 11/02/2012 documented as of this encounter (statuses as of 03/18/2023) [facility]* Problem Noted Date Diagnosed Date Resolved Date Morbid obesity 07/10/2016 01/08/2022 Right carpal tunnel syndrome 09/25/2015 07/03/2021 Mixed hyperlipidemia 06/25/2015 016 Irregular menstrual cycle 11/02/2012 documented as of this encounter (statuses as of 03/31/2023) [facility]* Problem Noted Date Diagnosed Date Resolved Date Morbid obesity 07/10/2016 01/08/2022 Right carpal tunnel syndrome 09/25/2015 07/03/2021 Mixed hyperlipidemia 06/25/2015 016 Irregular menstrual cycle 11/02/2012 documented as of this encounter (statuses as of 06/04/2023) [facility] History of Past illness Narrative* Problem Noted Date Diagnosed Date Resolved Date Morbid obesity 07/10/2016 01/08/2022 Right carpal tunnel syndrome 09/25/2015 07/03/2021 Mixed hyperlipidemia 06/25/2015 016 Irregular menstrual cycle 11/02/2012 documented as of this encounter (statuses as of 06/08/2023) [facility] History of Past illness Narrative* Problem Noted Date Diagnosed Date Resolved Date Morbid obesity 07/10/2016 01/08/2022 Right carpal tunnel syndrome 09/25/2015 07/03/2021 Mixed hyperlipidemia 06/25/2015 016 Irregular menstrual cycle 11/02/2012 documented as of this encounter (statuses as of 06/08/2023) [facility] History of Past illness Narrative* Problem Noted Date Diagnosed Date Resolved Date Morbid obesity 07/10/2016 01/08/2022 Right carpal tunnel syndrome 09/25/2015 07/03/2021 Mixed hyperlipidemia 06/25/2015 016 Irregular menstrual cycle 11/02/2012 documented as of this encounter (statuses as of 06/11/2023) [facility] History of Past illness Narrative* Problem Noted Date Diagnosed Date Resolved Date Morbid obesity 07/10/2016 01/08/2022 Right carpal tunnel syndrome 09/25/2015 07/03/2021 Mixed hyperlipidemia 06/25/2015 016 Irregular menstrual cycle 11/02/2012 documented as of this encounter (statuses as of 08/14/2023) [facility] History of Past illness Narrative* Problem Noted Date Diagnosed Date Resolved Date Morbid obesity 07/10/2016 01/08/2022 Right carpal tunnel syndrome 09/25/2015 07/03/2021 Mixed hyperlipidemia 06/25/2015 016 Irregular menstrual cycle 11/02/2012 documented as of this encounter (statuses as of 08/14/2023) [facility] History of Past illness Narrative* Problem Noted Date Resolved Date Right carpal tunnel syndrome 09/25/201512/2021 Mixed hyperlipidemia 06/25/2015 11/06/2015 Irregular menstrual cycle 11/02/20122015 documented as of this encounter (statuses as of 08/02/2021) [facility] History of Past illness Narrative* Problem Noted Date Resolved Date Right carpal tunnel syndrome 09/25/201512/2021 Mixed hyperlipidemia 06/25/2015 11/06/2015 Irregular menstrual cycle 11/02/20122015 documented as of this encounter (statuses as of 08/02/2021) [facility] History of Past illness Narrative* Problem Noted Date Resolved Date Right carpal tunnel syndrome 09/25/201512/2021 Mixed hyperlipidemia 06/25/2015 11/06/2015 Irregular menstrual cycle 11/02/20122015 documented as of this encounter (statuses as of 08/20/2021) [facility] History of Past illness Narrative* Problem Noted Date Resolved Date Right carpal tunnel syndrome 09/25/201512/2021 Mixed hyperlipidemia 06/25/2015 11/06/2015 Irregular menstrual cycle 11/02/20122015 documented as of this encounter (statuses as of 09/05/2021) [facility] History of Past illness Narrative* Problem Noted Date Resolved Date Right carpal tunnel syndrome 09/25/201512/2021 Mixed hyperlipidemia 06/25/2015 11/06/2015 Irregular menstrual cycle 11/02/20122015 documented as of this encounter (statuses as of 10/15/2021) [facility] History of Past illness Narrative* Problem Noted Date Resolved Date Right carpal tunnel syndrome 09/25/201512/2021 Mixed hyperlipidemia 06/25/2015 11/06/2015 Irregular menstrual cycle 11/02/20122015 documented as of this encounter (statuses as of 11/13/2021) [facility] History of Past illness Narrative* Problem Noted Date Resolved Date Right carpal tunnel syndrome 09/25/201512/2021 Mixed hyperlipidemia 06/25/2015 11/06/2015 Irregular menstrual cycle 11/02/20122015 documented as of this encounter (statuses as of 12/17/2021) [facility] History of Past illness Narrative* Problem Noted Date Resolved Date Right carpal tunnel syndrome 09/25/201512/2021 Mixed hyperlipidemia 06/25/2015 11/06/2015 Irregular menstrual cycle 11/02/20122015 documented as of this encounter (statuses as of 01/01/2022) [facility] Essential hypertension, benign- Primary [facility] noteNo assessment information availableWWilson Health Work Phone: Evaluation note* Diagnosis Type 2 diabetes mellitus with diabetic neuropathy, with long-term current use of insulin (HCC) Type 2 diabetes mellitus without complication, with long-term current use of insulin (HCC) [facility]* Diagnosis Type 2 diabetes mellitus with diabetic neuropathy, with long-term current use of insulin ([facility]) [facility]* Diagnosis Onset Date Resolution Status Postoperative primary hypothyroidism acute Thyroid cancer acute Anemia requiring transfusions acute Hypoxia acute Shortness of breath acute [facility] Work Phone: Evaluation note* Diagnosis Type 2 diabetes mellitus with diabetic neuropathy, with long-term current use of insulin (HCC)- Primary Essential hypertension, benign Anemia, unspecified type Other hyperlipidemia Other chronic pulmonary embolism without acute cor pulmonale (HCC) CANCER M->Z THYROID Malignant neoplasm of thyroid gland Lymphedema Other lymphedema SOB (shortness of breath) Shortness of breath Chest discomfort Other chest pain Screening for colon cancer Special screening for malignant neoplasms, colon [facility]* Diagnosis Chest pain on breathing- Primary Painful respiration Screening for nephropathy [facility]* Diagnosis Iron deficiency anemia, unspecified iron deficiency anemia type- Primary Encounter for immunization Need for other specified prophylactic vaccination against single bacterial disease SOB (shortness of breath) Shortness of breath Type 2 diabetes mellitus with diabetic neuropathy, with long-term current use of insulin (HCC) Essential hypertension, benign [facility]* Diagnosis Essential hypertension, benign- Primary [facility]* Diagnosis Onset Date Resolution Status Postoperative primary hypothyroidism acute Thyroid cancer acute Anemia requiring transfusions resolved Hypoxia resolved Shortness of breath resolved [facility] Work Phone: Evaluation note* Diagnosis SOB (shortness of breath)- Primary Shortness of breath Anemia, unspecified type Primary hypertension Unspecified essential hypertension [facility]* Diagnosis Anemia, unspecified type- Primary [facility]* Diagnosis Acute non-recurrent maxillary sinusitis- Primary [facility]* Diagnosis Bronchitis- Primary Bronchitis, not specified as acute or chronic Essential hypertension, benign Type 2 diabetes mellitus with diabetic neuropathy, with long-term current use of insulin ([facility]) Anemia, unspecified type Gastroesophageal reflux disease without esophagitis Esophageal reflux Type 2 diabetes mellitus without complication, with long-term current use of insulin ([facility]) [facility]* Diagnosis Bacterial pneumonia- Primary Bacterial pneumonia, unspecified [facility]* Diagnosis Bacterial pneumonia- Primary Bacterial pneumonia, unspecified Type 2 diabetes mellitus with diabetic neuropathy, with long-term current use of insulin ([facility]) Essential hypertension, benign Other hyperlipidemia [facility]* Diagnosis Postoperative hypothyroidism Postsurgical hypothyroidism [facility]* Diagnosis SOB (shortness of breath) Shortness of breath Chest discomfort Other chest pain [facility]* Diagnosis Lymphangitis, acute, lower leg- Primary Cellulitis and abscess of leg, except foot Cellulitis of left lower extremity Cellulitis and abscess of leg, except foot SHEIKH (dyspnea on exertion) Other dyspnea and respiratory abnormality [facility]* Diagnosis Onset Date Resolution Status Anemia acute [facility] Work Phone: Evaluation note* Diagnosis Onset Date Resolution Status Anemia acute Cellulitis of left leg acute Symptomatic anemia acute Type 2 [facility]* Diagnosis Anemia, unspecified type- Primary Other chronic pulmonary embolism without acute cor pulmonale ([facility]) documented in this encounter [facility] note* Diagnosis Gastrointestinal hemorrhage, unspecified gastrointestinal hemorrhage type- Primary Congestive heart failure, unspecified HF chronicity, unspecified heart failure type (HCC) Morbid obesity with BMI of 45.0-49.9, adult (HCC) Morbid obesity Type 2 diabetes mellitus with diabetic neuropathy, with long-term current use of insulin ([facility]) Moderate episode of recurrent major depressive disorder (HCC) Lymphedema Other lymphedema Hypoxia Hypoxemia Morbid obesity with BMI of 40.0-44.9, adult (HCC) Morbid obesity Cellulitis of left leg Cellulitis and abscess of leg, except foot Iron deficiency anemia due to chronic blood loss Iron deficiency anemia secondary to blood loss (chronic) History of pulmonary embolism Personal history of pulmonary embolism [facility]* Diagnosis Iron deficiency anemia, unspecified iron deficiency anemia type- Primary Other hyperlipidemia [facility]* Diagnosis Congestive heart failure, unspecified HF chronicity, unspecified heart failure type (HCC)- Primary Chronic obstructive pulmonary disease, unspecified COPD type (HCC) Iron deficiency anemia, unspecified iron deficiency anemia type Type 2 diabetes mellitus with diabetic neuropathy, with long-term current use of insulin (HCC) Lymphedema Other lymphedema Hypoxia Hypoxemia Cellulitis of left lower extremity Cellulitis and abscess of leg, except foot Gastrointestinal hemorrhage, unspecified gastrointestinal hemorrhage type [facility]* Diagnosis SOB (shortness of breath) Shortness of breath [facility]* Diagnosis Obstructive lung disease (generalized) (HCC)- Primary Chronic airway obstruction, not elsewhere classified Chronic hypoxemic respiratory failure (HCC) Chronic respiratory failure Morbid obesity (HCC) Morbid obesity [facility]* Diagnosis Screening for ischemic heart disease- Primary [facility]* Diagnosis Chronic respiratory failure with hypoxia (HCC) Chronic respiratory failure [facility]* Diagnosis Chronic respiratory failure with hypoxia (HCC)- Primary Chronic respiratory failure [facility]* Diagnosis Type 2 diabetes mellitus without complication, with long-term current use of insulin (HCC) [facility]* Diagnosis Type 2 diabetes mellitus with diabetic neuropathy, with long-term current use of insulin (HCC)- Primary Chronic diastolic congestive heart failure (HCC) Chronic diastolic heart failure Essential hypertension, benign Other chronic pulmonary embolism without acute cor pulmonale (HCC) Other hyperlipidemia Obstructive lung disease (generalized) (HCC) Chronic airway obstruction, not elsewhere classified Chronic hypoxemic respiratory failure (HCC) Chronic respiratory failure CANCER M->Z THYROID Malignant neoplasm of thyroid gland Lymphedema Other lymphedema Screening breast examination Breast screening, unspecified Iron deficiency anemia due to chronic blood loss Iron deficiency anemia secondary to blood loss (chronic) Screening for HIV (human immunodeficiency virus) Special screening examination for other specified viral diseases documented in this encounter [facility] note* Diagnosis Anemia, unspecified type- Primary Congestive heart failure, unspecified HF chronicity, unspecified heart failure type (HCC) Hyponatremia Hyposmolality and/or hyponatremia [facility]* Diagnosis Onset Date Resolution Status Anemia chronic Type 2 diabetes mellitus chr onic Anemia chronic COPD (chronic obstructive pulmonary disease) chronic Dyspnea on exertion chronic HTN (hypertension) chronic Hyperlipidemia chronic Non-pitting edema chronic Obesity chronic Type 2 diabetes mellitus chr onic [facility] Work Phone: Evaluation note* Diagnosis Iron deficiency anemia due to chronic blood loss- Primary Iron deficiency anemia secondary to blood loss (chronic) [facility]* Diagnosis Obstructive lung disease (generalized) (HCC)- Primary Chronic airway obstruction, not elsewhere classified Chronic respiratory failure with hypoxia (HCC) Chronic respiratory failure Morbid obesity (HCC) Morbid obesity [facility]* Diagnosis Lymphedema- Primary Other lymphedema Congestive heart failure, unspecified HF chronicity, unspecified heart failure type (HCC) Cellulitis of skin Cellulitis and abscess of unspecified site Venous stasis dermatitis of both lower extremities Anemia, unspecified type Hyponatremia Hyposmolality and/or hyponatremia [facility]* Diagnosis Cellulitis of skin- Primary Cellulitis and abscess of unspecified site Lymphedema Other lymphedema Venous stasis dermatitis of both lower extremities [facility]* Diagnosis Onset Date Resolution Status Anemia chronic COPD (chronic obstructive pulmonary disease) chronic Dyspnea on exertion chronic HTN (hypertension) chronic Hyperlipidemia chronic Non-pitting edema chronic Obesity chronic Type 2 diabetes mellitus chr onic Anemia chronic Aortic valve regurgitation c hronic COPD (chronic obstructive pulmonary disease) chronic Dyspnea on exertion chronic HTN (hypertension) chronic Hyperlipidemia chronic Non-pitting edema chronic Obesity chronic Pulmonary hypertension chron ic Type 2 diabetes mellitus chr onic Ulcer of left lower leg acut e [facility] Work Phone: Evaluation note* Diagnosis Gastroesophageal reflux disease without esophagitis Esophageal reflux documented in this encounter [facility] note* Diagnosis Gastroesophageal reflux disease without esophagitis Esophageal reflux Type 2 diabetes mellitus with diabetic neuropathy, with long-term current use of insulin ([facility]) documented in this encounter [facility] note* Diagnosis Headache, unspecified headache type documented in this encounter [facility] note* Diagnosis Type 2 diabetes mellitus without complication, with long-term current use of insulin ([facility]) [facility]* Diagnosis Chronic hypoxemic respiratory failure (HCC)- Primary Chronic respiratory failure [facility]* Diagnosis Screening breast examination Breast screening, unspecified [facility]* Diagnosis Cellulitis of skin Cellulitis and abscess of unspecified site [facility]* Diagnosis Anemia, unspecified type- Primary Hyponatremia Hyposmolality and/or hyponatremia documented in this encounter [facility] note* Diagnosis Dysuria- Primary [facility]* Diagnosis Complete uterovaginal prolapse- Primary Uterovaginal prolapse, complete Dysuria Cervical cancer screening Screening for malignant neoplasm of the cervix Pelvic pain in female Unspecified symptom associated with female genital organs Hematuria, unspecified type Special screening examination for human papillomavirus (HPV) Urinary frequency Morbid obesity with BMI of 40.0-44.9, adult (HCC) Morbid obesity [facility]* Diagnosis ASCUS with positive high risk HPV cervical- Primary Cervical high risk human papillomavirus (HPV) DNA test positive [facility]* Diagnosis Type 2 diabetes mellitus without complication, with long-term current use of insulin (HCC) Bacterial pneumonia Bacterial pneumonia, unspecified [facility]* Diagnosis Pelvic pain in female Unspecified symptom associated with female genital organs [facility]* Diagnosis Pain of right lower extremity- Primary Anemia, unspecified type Type 2 diabetes mellitus without complication, with long-term current use of insulin ([facility]) [facility]* Diagnosis Anemia, unspecified type- Primary [facility] Diagnosis ASCUS with positive high risk HPV cervical- Primary Cervical high risk human papillomavirus (HPV) DNA test positive [facility]* Diagnosis History of GI bleed Personal history of other diseases of digestive system [facility]* Diagnosis Headache, unspecified headache type Postoperative hypothyroidism Postsurgical hypothyroidism Type 2 diabetes mellitus with diabetic neuropathy, with long-term current use of insulin ([facility]) [facility]* Diagnosis Gastroesophageal reflux disease without esophagitis Esophageal reflux documented in this encounter [facility] note* Diagnosis Uterovaginal prolapse- Primary Uterovaginal prolapse, unspecified Cystocele, midline Urinary incontinence, unspecified type Atrophic vaginitis Postmenopausal atrophic vaginitis Atypical squamous cells of undetermined significance (ASCUS) on Papanicolaou smear of cervix HPV (human papilloma virus) infection Human papillomavirus in conditions classified elsewhere and of unspecified site LGSIL on Pap smear of cervix documented in this encounter [facility] note* Diagnosis Type 2 diabetes mellitus with diabetic neuropathy, with long-term current use of insulin ([facility])- Primary Neuropathy Mononeuritis of unspecified site Essential hypertension, benign Other hyperlipidemia Chronic diastolic congestive heart failure (HCC) Chronic diastolic heart failure Aortic valve insufficiency, etiology of cardiac valve disease unspecified Obstructive lung disease (generalized) ([facility]) Chronic airway obstruction, not elsewhere classified Chronic hypoxemic respiratory failure (HCC) Chronic respiratory failure Chronic obstructive pulmonary disease, unspecified COPD type ([facility]) CANCER M->Z THYROID Malignant neoplasm of thyroid gland Gastroesophageal reflux disease without esophagitis Esophageal reflux Anemia, unspecified type Moderate episode of recurrent major depressive disorder ([facility]) Lymphedema Other lymphedema Morbid obesity with BMI of 40.0-44.9, adult ([facility]) Morbid obesity Ureteral stone Calculus of ureter Encounter for screening examination for other mental health and behavioral disorders Obesity hypoventilation syndrome ([facility]) Obesity hypoventilation syndrome History of pulmonary embolism Personal history of pulmonary embolism documented in this encounter [facility] note* Diagnosis Encounter for screening mammogram for breast cancer documented in this encounter [facility] note* Diagnosis Anemia, unspecified type- Primary documented in this encounter [facility] note* Diagnosis Encounter for screening mammogram for breast cancer documented in this encounter [facility] note* Diagnosis Uterine prolapse- Primary Uterine prolapse without mention of vaginal wall prolapse MORENO (stress urinary incontinence, female) Female stress incontinence Asymptomatic microscopic hematuria * Assessment & Plan Note - Florencia Lundy MD - 12/03/2023 10:11 AM EDTAssociated Problem(s): Asymptomatic microscopic hematuria We will determine next steps as needed once we have the results of her microscopic urinalysis. * Assessment & Plan Note - Florencia Lundy MD - 12/03/2023 10:11 AM EDTAssociated Problem(s): MORENO (stress urinary incontinence, female) Plan preoperative bladder testing (urodynamics and cystoscopy) to determine if she will need an anti-incontinence procedure at the time of her surgery (i.e. midurethral sling). * Assessment & Plan Note - Florencia Lundy MD - 12/03/2023 10:10 AM EDTAssociated Problem(s): Uterine prolapse We discussed the patient's options which include expectant management, pelvic floor physical therapy, pessary or surgery. We will make a final plan once we have the results of her bladder testing. Patient interested in colpocleisis so we will get a pelvic ultrasound to check endometrial stripe. [facility] Diagnosis Uterine prolapse- Primary Uterine prolapse without mention of vaginal wall prolapse MORENO (stress urinary incontinence, female) Female stress incontinence Asymptomatic microscopic hematuria Uterine prolapse- Primary Uterine prolapse without mention of vaginal wall prolapse Asymptomatic microscopic hematuria MORENO (stress urinary incontinence, female) Female stress incontinence Encounter for urine test Laboratory examination, unspecified Midline cystocele Cystocele, midline Rectocele Uterine prolapse Uterine prolapse without mention of vaginal wall prolapse Midline cystocele Cystocele, midline Rectocele * Assessment & Plan Note - Florencia Lundy MD - 12/29/2023 11:03 AM EDTAssociated Problem(s): Asymptomatic microscopic hematuria We will determine next steps as needed once we have the results of her microscopic urinalysis. Orders: URINALYSIS, WITH MICROSCOPIC; Future URINALYSIS, WITH MICROSCOPIC * Assessment & Plan Note - Florencia Lundy MD - 12/29/2023 11:03 AM EDTAssociated Problem(s): Uterine prolapse We discussed the patient's options which include expectant management, pelvic floor physical therapy, pessary or surgery. We discussed the risk of colpocleisis include recurrent prolapse and injury to ureters and bladder.We discussed the patient's options which include expectant management, pelvic floor physical therapy, pessary or surgery. The risk associated with Anterior colporrhaphy is bladder perforation, postoperative voiding dysfunction, and ureteral obstruction. Also, there is a risk of recurrent anterior vaginal wall prolapse. Plan TVH, bilateral salpingectomy, colpocleisis, anterior and posterior colporrhaphy and cystoscopy. Orders: ondansetron (ZOFRAN) 4 mg tablet; Take 1 tablet by mouth every 8 hours as needed for nausea/vomiting (after surgery). For postop nausea as needed. SURGICAL REQUEST - ELECTIVE (11/2019) * Assessment & Plan Note - Florencia Lundy MD - 12/29/2023 11:03 AM EDTAssociated Problem(s): MORENO (stress urinary incontinence, female) No anti-incontinence procedure needed based on urodynamics. documented [facility]* Diagnosis Uterine prolapse- Primary Uterine prolapse without mention of vaginal wall prolapse MORENO (stress urinary incontinence, female) Female stress incontinence Asymptomatic microscopic hematuria Uterine prolapse- Primary Uterine prolapse without mention of vaginal wall prolapse Asymptomatic microscopic hematuria MORENO (stress urinary incontinence, female) Female stress incontinence Encounter for urine test Laboratory examination, unspecified Midline cystocele Cystocele, midline Rectocele Encounter for education- Primary Counseling NOS Uterine prolapse Uterine prolapse without mention of vaginal wall prolapse Midline cystocele Cystocele, midline Rectocele [facility]* Diagnosis Bronchitis Bronchitis, not specified as acute or chronic Uterine prolapse Uterine prolapse without mention of vaginal wall prolapse Midline cystocele Cystocele, midline Rectocele [facility]* Diagnosis Uterine prolapse- Primary Uterine prolapse without mention of vaginal wall prolapse MORENO (stress urinary incontinence, female) Female stress incontinence Asymptomatic microscopic hematuria Uterine prolapse- Primary Uterine prolapse without mention of vaginal wall prolapse Asymptomatic microscopic hematuria MORENO (stress urinary incontinence, female) Female stress incontinence Encounter for urine test Laboratory examination, unspecified Midline cystocele Cystocele, midline Rectocele Pre-op testing- Primary Preoperative examination, unspecified Chronic diastolic congestive heart failure ([facility]) Chronic diastolic heart failure Type 2 diabetes mellitus with diabetic neuropathy, with long-term current use of insulin ([facility]) Chronic obstructive pulmonary disease, unspecified COPD type ([facility]) Uterine prolapse Uterine prolapse without mention of vaginal wall prolapse Aortic valve insufficiency, etiology of cardiac valve disease unspecified Essential hypertension, benign Other hyperlipidemia Pulmonary hypertension ([facility]) Other chronic pulmonary heart diseases Gastroesophageal reflux disease without esophagitis Esophageal reflux Other iron deficiency anemia Uterine prolapse Uterine prolapse without mention of vaginal wall prolapse Midline cystocele Cystocele, midline Rectocele * Assessment & Plan Note - Edna Qureshi APRN.CNP - 01/26/2024 3:55 PM EDT Associated Problem(s): Migraines Per patient last migraine was last week. Imitrex 50 mg * Assessment & Plan Note - Edna Qureshi APRN.CNP - 01/26/2024 3:50 PM EDT Associated Problem(s): Pre-op testing Patient has the following medical conditions which may affect emily-operative course addressed in assessment and plan today. * Assessment & Plan Note - Edna Qureshi APRN.CNP - 01/26/2024 3:49 PM EDT Associated Problem(s): Anemia -CBC today. - oral iron supplement daily. * Assessment & Plan Note - Edna Qureshi APRN.CNP - 01/26/2024 3:48 PM EDT Associated Problem(s): Gastroesophageal reflux disease without esophagitis Protonix 40 mg. * Assessment & Plan Note - Edna Qureshi APRN.CNP - 01/26/2024 3:46 PM EDT Associated Problem(s): Pulmonary hypertension (HCC) Images from the original note were not included. Echo scanned in [facility] from 08-26-22 showed Mild Pulm HTN. * Assessment & Plan Note - Edna Qureshi APRN.CNP - 01/26/2024 3:45 PM EDT Associated Problem(s): HLD (hyperlipidemia) Atorvastatin 20 mg * Assessment & Plan Note - Edna Qureshi APRN.CNP - 01/26/2024 3:45 PM EDT Associated Problem(s): Essential hypertension, benign Well controlled per patient. Valsartan- hold day of surgery. See PAT instructions for BP medications. * Assessment & Plan Note - Edna Qureshi APRN.CNP - 01/26/2024 3:42 PM EDT Associated Problem(s): Aortic valve regurgitation Images from the original note were not included. Echo scanned in [facility] from 08-26-22: * Assessment & Plan Note - Edna Qureshi APRN.CNP - 01/26/2024 10:27 AM EDT Associated Problem(s): Uterine prolapse SEE HPI , scheduled for surgery with Dr. Lundy 02-02-24 * Assessment & Plan Note - Edna Qureshi APRN.CNP - 01/26/2024 10:26 AM EDT Associated Problem(s): Chronic obstructive pulmonary disease (HCC) Managed by PCP who wants her to see pulmonary per patient. She has not yet scheduled an appointmentwith pulmonology. Denies COPD exacerbations in the last 6 months related to COPD. Does not use oxygen. Uses inhalers as prescribed. * Assessment & Plan Note - Edna Qureshi APRN.CNP - 01/26/2024 10:26 AM EDT Associated Problem(s): Type 2 diabetes mellitus with diabetic neuropathy, with long-term current use of insulin (HCC) Managed by PCP Jesse pastrana two day before surgery. Check glucose DOS Hemoglobin A1C (%) Date Value 09/08/2023 5.8 10/01/2020 6.3 * Assessment & Plan Note - Edna Qureshi APRN.CNP - 01/26/2024 10:26 AM EDT Associated Problem(s): Chronic diastolic congestive heart failure (HCC) Managed by cardiology in [place]. 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 I will faxed request to [place] last office note. Patient states she has not seen cardiology for a year or more. Not on lasix -Dg LE edema noted today. [facility]* Diagnosis Left wrist pain Pain in joint, forearm Pre-op testing- Primary Preoperative examination, unspecified Chronic diastolic congestive heart failure (HCC) Chronic diastolic heart failure Type 2 diabetes mellitus with diabetic neuropathy, with long-term current use of insulin (HCC) Chronic obstructive pulmonary disease, unspecified COPD type (HCC) Uterine prolapse Uterine prolapse without mention of vaginal wall prolapse Aortic valve insufficiency, etiology of cardiac valve disease unspecified Essential hypertension, benign Other hyperlipidemia Pulmonary hypertension (HCC) Other chronic pulmonary heart diseases Gastroesophageal reflux disease without esophagitis Esophageal reflux Other iron deficiency anemia Uterine prolapse Uterine prolapse without mention of vaginal wall prolapse Midline cystocele Cystocele, midline Rectocele [facility]* Diagnosis Uterine prolapse- Primary Uterine prolapse without mention of vaginal wall prolapse MORENO (stress urinary incontinence, female) Female stress incontinence Asymptomatic microscopic hematuria Uterine prolapse- Primary Uterine prolapse without mention of vaginal wall prolapse Asymptomatic microscopic hematuria MORENO (stress urinary incontinence, female) Female stress incontinence Encounter for urine test Laboratory examination, unspecified Midline cystocele Cystocele, midline Rectocele Pre-op testing- Primary Preoperative examination, unspecified Chronic diastolic congestive heart failure (HCC) Chronic diastolic heart failure Type 2 diabetes mellitus with diabetic neuropathy, with long-term current use of insulin ([facility]) Chronic obstructive pulmonary disease, unspecified COPD type ([facility]) Uterine prolapse Uterine prolapse without mention of vaginal wall prolapse Aortic valve insufficiency, etiology of cardiac valve disease unspecified Essential hypertension, benign Other hyperlipidemia Pulmonary hypertension (HCC) Other chronic pulmonary heart diseases Gastroesophageal reflux disease without esophagitis Esophageal reflux Other iron deficiency anemia Post-operative state- Primary Other postprocedural status [facility]* Diagnosis Uterine prolapse- Primary Uterine prolapse without mention of vaginal wall prolapse MORENO (stress urinary incontinence, female) Female stress incontinence Asymptomatic microscopic hematuria Uterine prolapse- Primary Uterine prolapse without mention of vaginal wall prolapse Asymptomatic microscopic hematuria MORENO (stress urinary incontinence, female) Female stress incontinence Encounter for urine test Laboratory examination, unspecified Midline cystocele Cystocele, midline Rectocele Pre-op testing- Primary Preoperative examination, unspecified Chronic diastolic congestive heart failure (HCC) Chronic diastolic heart failure Type 2 diabetes mellitus with diabetic neuropathy, with long-term current use of insulin ([facility]) Chronic obstructive pulmonary disease, unspecified COPD type ([facility]) Uterine prolapse Uterine prolapse without mention of vaginal wall prolapse Aortic valve insufficiency, etiology of cardiac valve disease unspecified Essential hypertension, benign Other hyperlipidemia Pulmonary hypertension (HCC) Other chronic pulmonary heart diseases Gastroesophageal reflux disease without esophagitis Esophageal reflux Other iron deficiency anemia Type 2 diabetes mellitus with diabetic neuropathy, with long-term current use of insulin ([facility]) [facility]* Diagnosis Uterine prolapse- Primary Uterine prolapse without mention of vaginal wall prolapse MORENO (stress urinary incontinence, female) Female stress incontinence Asymptomatic microscopic hematuria Uterine prolapse- Primary Uterine prolapse without mention of vaginal wall prolapse Asymptomatic microscopic hematuria MORENO (stress urinary incontinence, female) Female stress incontinence Encounter for urine test Laboratory examination, unspecified Midline cystocele Cystocele, midline Rectocele Pre-op testing- Primary Preoperative examination, unspecified Chronic diastolic congestive heart failure (HCC) Chronic diastolic heart failure Type 2 diabetes mellitus with diabetic neuropathy, with long-term current use of insulin (HCC) Chronic obstructive pulmonary disease, unspecified COPD type (HCC) Uterine prolapse Uterine prolapse without mention of vaginal wall prolapse Aortic valve insufficiency, etiology of cardiac valve disease unspecified Essential hypertension, benign Other hyperlipidemia Pulmonary hypertension (HCC) Other chronic pulmonary heart diseases Gastroesophageal reflux disease without esophagitis Esophageal reflux Other iron deficiency anemia Post-operative state- Primary Other postprocedural status [facility]* Diagnosis Uterine prolapse- Primary Uterine prolapse without mention of vaginal wall prolapse MORENO (stress urinary incontinence, female) Female stress incontinence Asymptomatic microscopic hematuria Uterine prolapse- Primary Uterine prolapse without mention of vaginal wall prolapse Asymptomatic microscopic hematuria MORENO (stress urinary incontinence, female) Female stress incontinence Encounter for urine test Laboratory examination, unspecified Midline cystocele Cystocele, midline Rectocele Pre-op testing- Primary Preoperative examination, unspecified Chronic diastolic congestive heart failure (HCC) Chronic diastolic heart failure Type 2 diabetes mellitus with diabetic neuropathy, with long-term current use of insulin (HCC) Chronic obstructive pulmonary disease, unspecified COPD type (HCC) Uterine prolapse Uterine prolapse without mention of vaginal wall prolapse Aortic valve insufficiency, etiology of cardiac valve disease unspecified Essential hypertension, benign Other hyperlipidemia Pulmonary hypertension (HCC) Other chronic pulmonary heart diseases Gastroesophageal reflux disease without esophagitis Esophageal reflux Other iron deficiency anemia Anemia, unspecified type- Primary Headache, unspecified headache type Postoperative hypothyroidism Postsurgical hypothyroidism documented in this encounter [facility] note* Diagnosis Uterine prolapse- Primary Uterine prolapse without mention of vaginal wall prolapse MORENO (stress urinary incontinence, female) Female stress incontinence Asymptomatic microscopic hematuria Uterine prolapse- Primary Uterine prolapse without mention of vaginal wall prolapse Asymptomatic microscopic hematuria MORENO (stress urinary incontinence, female) Female stress incontinence Encounter for urine test Laboratory examination, unspecified Midline cystocele Cystocele, midline Rectocele Pre-op testing- Primary Preoperative examination, unspecified Chronic diastolic congestive heart failure (HCC) Chronic diastolic heart failure Type 2 diabetes mellitus with diabetic neuropathy, with long-term current use of insulin (HCC) Chronic obstructive pulmonary disease, unspecified COPD type (HCC) Uterine prolapse Uterine prolapse without mention of vaginal wall prolapse Aortic valve insufficiency, etiology of cardiac valve disease unspecified Essential hypertension, benign Other hyperlipidemia Pulmonary hypertension (HCC) Other chronic pulmonary heart diseases Gastroesophageal reflux disease without esophagitis Esophageal reflux Other iron deficiency anemia Type 2 diabetes mellitus with diabetic neuropathy, with long-term current use of insulin ([facility]) documented [facility]* Diagnosis Uterine prolapse- Primary Uterine prolapse without mention of vaginal wall prolapse MORENO (stress urinary incontinence, female) Female stress incontinence Asymptomatic microscopic hematuria Uterine prolapse- Primary Uterine prolapse without mention of vaginal wall prolapse Asymptomatic microscopic hematuria MORENO (stress urinary incontinence, female) Female stress incontinence Encounter for urine test Laboratory examination, unspecified Midline cystocele Cystocele, midline Rectocele Pre-op testing- Primary Preoperative examination, unspecified Chronic diastolic congestive heart failure (HCC) Chronic diastolic heart failure Type 2 diabetes mellitus with diabetic neuropathy, with long-term current use of insulin ([facility]) Chronic obstructive pulmonary disease, unspecified COPD type ([facility]) Uterine prolapse Uterine prolapse without mention of vaginal wall prolapse Aortic valve insufficiency, etiology of cardiac valve disease unspecified Essential hypertension, benign Other hyperlipidemia Pulmonary hypertension (HCC) Other chronic pulmonary heart diseases Gastroesophageal reflux disease without esophagitis Esophageal reflux Other iron deficiency anemia Abscess- Primary Cellulitis and abscess of unspecified site Cellulitis of skin Cellulitis and abscess of unspecified site [facility]* Diagnosis Uterine prolapse- Primary Uterine prolapse without mention of vaginal wall prolapse MORENO (stress urinary incontinence, female) Female stress incontinence Asymptomatic microscopic hematuria Uterine prolapse- Primary Uterine prolapse without mention of vaginal wall prolapse Asymptomatic microscopic hematuria MORENO (stress urinary incontinence, female) Female stress incontinence Encounter for urine test Laboratory examination, unspecified Midline cystocele Cystocele, midline Rectocele Pre-op testing- Primary Preoperative examination, unspecified Chronic diastolic congestive heart failure (HCC) Chronic diastolic heart failure Type 2 diabetes mellitus with diabetic neuropathy, with long-term current use of insulin ([facility]) Chronic obstructive pulmonary disease, unspecified COPD type (HCC) Uterine prolapse Uterine prolapse without mention of vaginal wall prolapse Aortic valve insufficiency, etiology of cardiac valve disease unspecified Essential hypertension, benign Other hyperlipidemia Pulmonary hypertension (HCC) Other chronic pulmonary heart diseases Gastroesophageal reflux disease without esophagitis Esophageal reflux Other iron deficiency anemia Uterine prolapse Uterine prolapse without mention of vaginal wall prolapse Gastroesophageal reflux disease without esophagitis Esophageal reflux Postoperative hypothyroidism Postsurgical hypothyroidism Type 2 diabetes mellitus with diabetic neuropathy, with long-term current use of insulin ([facility]) History of GI bleed Personal history of other diseases of digestive system documented in this encounter [facility] note* Diagnosis Uterine prolapse- Primary Uterine prolapse without mention of vaginal wall prolapse MORENO (stress urinary incontinence, female) Female stress incontinence Asymptomatic microscopic hematuria Uterine prolapse- Primary Uterine prolapse without mention of vaginal wall prolapse Asymptomatic microscopic hematuria MORENO (stress urinary incontinence, female) Female stress incontinence Encounter for urine test Laboratory examination, unspecified Midline cystocele Cystocele, midline Rectocele Pre-op testing- Primary Preoperative examination, unspecified Chronic diastolic congestive heart failure (HCC) Chronic diastolic heart failure Type 2 diabetes mellitus with diabetic neuropathy, with long-term current use of insulin (HCC) Chronic obstructive pulmonary disease, unspecified COPD type (HCC) Uterine prolapse Uterine prolapse without mention of vaginal wall prolapse Aortic valve insufficiency, etiology of cardiac valve disease unspecified Essential hypertension, benign Other hyperlipidemia Pulmonary hypertension (HCC) Other chronic pulmonary heart diseases Gastroesophageal reflux disease without esophagitis Esophageal reflux Other iron deficiency anemia Other hyperlipidemia- Primary [facility]* Diagnosis Uterine prolapse- Primary Uterine prolapse without mention of vaginal wall prolapse MORENO (stress urinary incontinence, female) Female stress incontinence Asymptomatic microscopic hematuria Uterine prolapse- Primary Uterine prolapse without mention of vaginal wall prolapse Asymptomatic microscopic hematuria MORENO (stress urinary incontinence, female) Female stress incontinence Encounter for urine test Laboratory examination, unspecified Midline cystocele Cystocele, midline Rectocele Pre-op testing- Primary Preoperative examination, unspecified Chronic diastolic congestive heart failure (HCC) Chronic diastolic heart failure Type 2 diabetes mellitus with diabetic neuropathy, with long-term current use of insulin ([facility]) Chronic obstructive pulmonary disease, unspecified COPD type (HCC) Uterine prolapse Uterine prolapse without mention of vaginal wall prolapse Aortic valve insufficiency, etiology of cardiac valve disease unspecified Essential hypertension, benign Other hyperlipidemia Pulmonary hypertension (HCC) Other chronic pulmonary heart diseases Gastroesophageal reflux disease without esophagitis Esophageal reflux Other iron deficiency anemia Type 2 diabetes mellitus with diabetic neuropathy, with long-term current use of insulin ([facility])- Primary Headache, unspecified headache type Migraine without aura and without status migrainosus, not intractable Migraine without aura, without mention of intractable migraine without mention of status migrainosus Essential hypertension, benign Pure hypercholesterolemia Chronic diastolic congestive heart failure (HCC) Chronic diastolic heart failure Aortic valve insufficiency, etiology of cardiac valve disease unspecified Thyroid cancer (HCC) Malignant neoplasm of thyroid gland Medicare annual wellness visit, subsequent Routine general medical examination at a health care facility Memory changes Memory loss Cognitive changes Other signs and symptoms involving cognition Seasonal allergic rhinitis, unspecified trigger [facility]* Diagnosis Uterine prolapse- Primary Uterine prolapse without mention of vaginal wall prolapse MORENO (stress urinary incontinence, female) Female stress incontinence Asymptomatic microscopic hematuria Uterine prolapse- Primary Uterine prolapse without mention of vaginal wall prolapse Asymptomatic microscopic hematuria MORENO (stress urinary incontinence, female) Female stress incontinence Encounter for urine test Laboratory examination, unspecified Midline cystocele Cystocele, midline Rectocele Pre-op testing- Primary Preoperative examination, unspecified Chronic diastolic congestive heart failure (HCC) Chronic diastolic heart failure Type 2 diabetes mellitus with diabetic neuropathy, with long-term current use of insulin (HCC) Chronic obstructive pulmonary disease, unspecified COPD type (HCC) Uterine prolapse Uterine prolapse without mention of vaginal wall prolapse Aortic valve insufficiency, etiology of cardiac valve disease unspecified Essential hypertension, benign Other hyperlipidemia Pulmonary hypertension (HCC) Other chronic pulmonary heart diseases Gastroesophageal reflux disease without esophagitis Esophageal reflux Other iron deficiency anemia Hypomagnesemia- Primary Disorders of magnesium metabolism Hyponatremia Hyposmolality and/or hyponatremia Hypothyroidism, acquired Unspecified hypothyroidism Postoperative hypothyroidism Postsurgical hypothyroidism documented in this encounter [facility] note* Diagnosis Uterine prolapse- Primary Uterine prolapse without mention of vaginal wall prolapse MORENO (stress urinary incontinence, female) Female stress incontinence Asymptomatic microscopic hematuria Uterine prolapse- Primary Uterine prolapse without mention of vaginal wall prolapse Asymptomatic microscopic hematuria MORENO (stress urinary incontinence, female) Female stress incontinence Encounter for urine test Laboratory examination, unspecified Midline cystocele Cystocele, midline Rectocele Pre-op testing- Primary Preoperative examination, unspecified Chronic diastolic congestive heart failure (HCC) Chronic diastolic heart failure Type 2 diabetes mellitus with diabetic neuropathy, with long-term current use of insulin (HCC) Chronic obstructive pulmonary disease, unspecified COPD type (HCC) Uterine prolapse Uterine prolapse without mention of vaginal wall prolapse Aortic valve insufficiency, etiology of cardiac valve disease unspecified Essential hypertension, benign Other hyperlipidemia Pulmonary hypertension (HCC) Other chronic pulmonary heart diseases Gastroesophageal reflux disease without esophagitis Esophageal reflux Other iron deficiency anemia Neck pain- Primary Cervicalgia [facility]* Diagnosis Uterine prolapse- Primary Uterine prolapse without mention of vaginal wall prolapse MORENO (stress urinary incontinence, female) Female stress incontinence Asymptomatic microscopic hematuria Uterine prolapse- Primary Uterine prolapse without mention of vaginal wall prolapse Asymptomatic microscopic hematuria MORENO (stress urinary incontinence, female) Female stress incontinence Encounter for urine test Laboratory examination, unspecified Midline cystocele Cystocele, midline Rectocele Pre-op testing- Primary Preoperative examination, unspecified Chronic diastolic congestive heart failure (HCC) Chronic diastolic heart failure Type 2 diabetes mellitus with diabetic neuropathy, with long-term current use of insulin (HCC) Chronic obstructive pulmonary disease, unspecified COPD type (HCC) Uterine prolapse Uterine prolapse without mention of vaginal wall prolapse Aortic valve insufficiency, etiology of cardiac valve disease unspecified Essential hypertension, benign Other hyperlipidemia Pulmonary hypertension (HCC) Other chronic pulmonary heart diseases Gastroesophageal reflux disease without esophagitis Esophageal reflux Other iron deficiency anemia Type 2 diabetes mellitus with diabetic neuropathy, with long-term current use of insulin ([facility])- Primary Lymphedema Other lymphedema Porokeratosis Other specified congenital anomaly of skin [facility] Diagnosis Uterine prolapse- Primary Uterine prolapse without mention of vaginal wall prolapse MORENO (stress urinary incontinence, female) Female stress incontinence Asymptomatic microscopic hematuria Uterine prolapse- Primary Uterine prolapse without mention of vaginal wall prolapse Asymptomatic microscopic hematuria MORENO (stress urinary incontinence, female) Female stress incontinence Encounter for urine test Laboratory examination, unspecified Midline cystocele Cystocele, midline Rectocele Pre-op testing- Primary Preoperative examination, unspecified Chronic diastolic congestive heart failure (HCC) Chronic diastolic heart failure Type 2 diabetes mellitus with diabetic neuropathy, with long-term current use of insulin ([facility]) Chronic obstructive pulmonary disease, unspecified COPD type ([facility]) Uterine prolapse Uterine prolapse without mention of vaginal wall prolapse Aortic valve insufficiency, etiology of cardiac valve disease unspecified Essential hypertension, benign Other hyperlipidemia Pulmonary hypertension (HCC) Other chronic pulmonary heart diseases Gastroesophageal reflux disease without esophagitis Esophageal reflux Other iron deficiency anemia Pneumonia of both lower lobes due to other aerobic gram-negative bacteria ([facility])- Primary [facility]* Diagnosis Uterine prolapse- Primary Uterine prolapse without mention of vaginal wall prolapse MORENO (stress urinary incontinence, female) Female stress incontinence Asymptomatic microscopic hematuria Uterine prolapse- Primary Uterine prolapse without mention of vaginal wall prolapse Asymptomatic microscopic hematuria MORENO (stress urinary incontinence, female) Female stress incontinence Encounter for urine test Laboratory examination, unspecified Midline cystocele Cystocele, midline Rectocele Pre-op testing- Primary Preoperative examination, unspecified Chronic diastolic congestive heart failure (HCC) Chronic diastolic heart failure Type 2 diabetes mellitus with diabetic neuropathy, with long-term current use of insulin (HCC) Chronic obstructive pulmonary disease, unspecified COPD type (HCC) Uterine prolapse Uterine prolapse without mention of vaginal wall prolapse Aortic valve insufficiency, etiology of cardiac valve disease unspecified Essential hypertension, benign Other hyperlipidemia Pulmonary hypertension (HCC) Other chronic pulmonary heart diseases Gastroesophageal reflux disease without esophagitis Esophageal reflux Other iron deficiency anemia Headache, unspecified headache type Gastroesophageal reflux disease without esophagitis Esophageal reflux Bacterial pneumonia Bacterial pneumonia, unspecified [facility]* Diagnosis Uterine prolapse- Primary Uterine prolapse without mention of vaginal wall prolapse MORENO (stress urinary incontinence, female) Female stress incontinence Asymptomatic microscopic hematuria Uterine prolapse- Primary Uterine prolapse without mention of vaginal wall prolapse Asymptomatic microscopic hematuria MORENO (stress urinary incontinence, female) Female stress incontinence Encounter for urine test Laboratory examination, unspecified Midline cystocele Cystocele, midline Rectocele Pre-op testing- Primary Preoperative examination, unspecified Chronic diastolic congestive heart failure (HCC) Chronic diastolic heart failure Type 2 diabetes mellitus with diabetic neuropathy, with long-term current use of insulin ([facility]) Chronic obstructive pulmonary disease, unspecified COPD type (HCC) Uterine prolapse Uterine prolapse without mention of vaginal wall prolapse Aortic valve insufficiency, etiology of cardiac valve disease unspecified Essential hypertension, benign Other hyperlipidemia Pulmonary hypertension (HCC) Other chronic pulmonary heart diseases Gastroesophageal reflux disease without esophagitis Esophageal reflux Other iron deficiency anemia Bacterial pneumonia- Primary Bacterial pneumonia, unspecified [facility] Diagnosis Uterine prolapse- Primary Uterine prolapse without mention of vaginal wall prolapse MORENO (stress urinary incontinence, female) Female stress incontinence Asymptomatic microscopic hematuria Uterine prolapse- Primary Uterine prolapse without mention of vaginal wall prolapse Asymptomatic microscopic hematuria MORENO (stress urinary incontinence, female) Female stress incontinence Encounter for urine test Laboratory examination, unspecified Midline cystocele Cystocele, midline Rectocele Pre-op testing- Primary Preoperative examination, unspecified Chronic diastolic congestive heart failure (HCC) Chronic diastolic heart failure Type 2 diabetes mellitus with diabetic neuropathy, with long-term current use of insulin (HCC) Chronic obstructive pulmonary disease, unspecified COPD type (HCC) Uterine prolapse Uterine prolapse without mention of vaginal wall prolapse Aortic valve insufficiency, etiology of cardiac valve disease unspecified Essential hypertension, benign Other hyperlipidemia Pulmonary hypertension (HCC) Other chronic pulmonary heart diseases Gastroesophageal reflux disease without esophagitis Esophageal reflux Other iron deficiency anemia Encounter for screening mammogram for breast cancer documented [facility]* Diagnosis Uterine prolapse- Primary Uterine prolapse without mention of vaginal wall prolapse MORENO (stress urinary incontinence, female) Female stress incontinence Asymptomatic microscopic hematuria Uterine prolapse- Primary Uterine prolapse without mention of vaginal wall prolapse Asymptomatic microscopic hematuria MORENO (stress urinary incontinence, female) Female stress incontinence Encounter for urine test Laboratory examination, unspecified Midline cystocele Cystocele, midline Rectocele Pre-op testing- Primary Preoperative examination, unspecified Chronic diastolic congestive heart failure (HCC) Chronic diastolic heart failure Type 2 diabetes mellitus with diabetic neuropathy, with long-term current use of insulin (HCC) Chronic obstructive pulmonary disease, unspecified COPD type (HCC) Uterine prolapse Uterine prolapse without mention of vaginal wall prolapse Aortic valve insufficiency, etiology of cardiac valve disease unspecified Essential hypertension, benign Other hyperlipidemia Pulmonary hypertension (HCC) Other chronic pulmonary heart diseases Gastroesophageal reflux disease without esophagitis Esophageal reflux Other iron deficiency anemia Anemia, unspecified type- Primary Elevated blood protein Other disorders of plasma protein metabolism [facility]* Diagnosis Uterine prolapse- Primary Uterine prolapse without mention of vaginal wall prolapse MORENO (stress urinary incontinence, female) Female stress incontinence Asymptomatic microscopic hematuria Uterine prolapse- Primary Uterine prolapse without mention of vaginal wall prolapse Asymptomatic microscopic hematuria MORENO (stress urinary incontinence, female) Female stress incontinence Encounter for urine test Laboratory examination, unspecified Midline cystocele Cystocele, midline Rectocele Pre-op testing- Primary Preoperative examination, unspecified Chronic diastolic congestive heart failure (HCC) Chronic diastolic heart failure Type 2 diabetes mellitus with diabetic neuropathy, with long-term current use of insulin ([facility]) Chronic obstructive pulmonary disease, unspecified COPD type ([facility]) Uterine prolapse Uterine prolapse without mention of vaginal wall prolapse Aortic valve insufficiency, etiology of cardiac valve disease unspecified Essential hypertension, benign Other hyperlipidemia Pulmonary hypertension (HCC) Other chronic pulmonary heart diseases Gastroesophageal reflux disease without esophagitis Esophageal reflux Other iron deficiency anemia Pulmonary HTN (HCC)- Primary Other chronic pulmonary heart diseases SOB (shortness of breath) Shortness of breath History of pulmonary embolism Personal history of pulmonary embolism [facility] Diagnosis Uterine prolapse- Primary Uterine prolapse without mention of vaginal wall prolapse MORENO (stress urinary incontinence, female) Female stress incontinence Asymptomatic microscopic hematuria Uterine prolapse- Primary Uterine prolapse without mention of vaginal wall prolapse Asymptomatic microscopic hematuria MORENO (stress urinary incontinence, female) Female stress incontinence Encounter for urine test Laboratory examination, unspecified Midline cystocele Cystocele, midline Rectocele Pre-op testing- Primary Preoperative examination, unspecified Chronic diastolic congestive heart failure (HCC) Chronic diastolic heart failure Type 2 diabetes mellitus with diabetic neuropathy, with long-term current use of insulin ([facility]) Chronic obstructive pulmonary disease, unspecified COPD type (HCC) Uterine prolapse Uterine prolapse without mention of vaginal wall prolapse Aortic valve insufficiency, etiology of cardiac valve disease unspecified Essential hypertension, benign Other hyperlipidemia Pulmonary hypertension (HCC) Other chronic pulmonary heart diseases Gastroesophageal reflux disease without esophagitis Esophageal reflux Other iron deficiency anemia Chest pain, unspecified type- Primary Pulmonary HTN (HCC) Other chronic pulmonary heart diseases SOB (shortness of breath) Shortness of breath History of pulmonary embolism Personal history of pulmonary embolism [facility]* Diagnosis Uterine prolapse- Primary Uterine prolapse without mention of vaginal wall prolapse MORENO (stress urinary incontinence, female) Female stress incontinence Asymptomatic microscopic hematuria Uterine prolapse- Primary Uterine prolapse without mention of vaginal wall prolapse Asymptomatic microscopic hematuria MORENO (stress urinary incontinence, female) Female stress incontinence Encounter for urine test Laboratory examination, unspecified Midline cystocele Cystocele, midline Rectocele Pre-op testing- Primary Preoperative examination, unspecified Chronic diastolic congestive heart failure (HCC) Chronic diastolic heart failure Type 2 diabetes mellitus with diabetic neuropathy, with long-term current use of insulin (HCC) Chronic obstructive pulmonary disease, unspecified COPD type (HCC) Uterine prolapse Uterine prolapse without mention of vaginal wall prolapse Aortic valve insufficiency, etiology of cardiac valve disease unspecified Essential hypertension, benign Other hyperlipidemia Pulmonary hypertension (HCC) Other chronic pulmonary heart diseases Gastroesophageal reflux disease without esophagitis Esophageal reflux Other iron deficiency anemia Acute hypoxic respiratory failure (HCC)- Primary Acute hypoxic respiratory failure (HCC) Type 2 diabetes mellitus with diabetic neuropathy, with long-term current use of insulin (HCC) Essential hypertension, benign HLD (hyperlipidemia) Other and unspecified hyperlipidemia Lymphedema Other lymphedema Neuropathy Mononeuritis of unspecified site Chronic diastolic congestive heart failure (HCC) Chronic diastolic heart failure Obstructive lung disease (generalized) (HCC) Chronic airway obstruction, not elsewhere classified History of pulmonary embolism Personal history of pulmonary embolism Hypersensitivity pneumonitis (HCC) Unspecified allergic alveolitis and pneumonitis Interstitial lung disease (HCC) Postinflammatory pulmonary fibrosis History of asthma Personal history of other diseases of respiratory system Acute on chronic hypoxic respiratory failure (HCC) Type 2 diabetes mellitus without complication, with long-term current use of insulin ([facility]) [facility]* Diagnosis Uterine prolapse- Primary Uterine prolapse without mention of vaginal wall prolapse MORENO (stress urinary incontinence, female) Female stress incontinence Asymptomatic microscopic hematuria Uterine prolapse- Primary Uterine prolapse without mention of vaginal wall prolapse Asymptomatic microscopic hematuria MORENO (stress urinary incontinence, female) Female stress incontinence Encounter for urine test Laboratory examination, unspecified Midline cystocele Cystocele, midline Rectocele Pre-op testing- Primary Preoperative examination, unspecified Chronic diastolic congestive heart failure (HCC) Chronic diastolic heart failure Type 2 diabetes mellitus with diabetic neuropathy, with long-term current use of insulin (HCC) Chronic obstructive pulmonary disease, unspecified COPD type (HCC) Uterine prolapse Uterine prolapse without mention of vaginal wall prolapse Aortic valve insufficiency, etiology of cardiac valve disease unspecified Essential hypertension, benign Other hyperlipidemia Pulmonary hypertension (HCC) Other chronic pulmonary heart diseases Gastroesophageal reflux disease without esophagitis Esophageal reflux Other iron deficiency anemia Acute hypoxic respiratory failure (HCC)- Primary Acute hypoxic respiratory failure (HCC) Type 2 diabetes mellitus with diabetic neuropathy, with long-term current use of insulin (HCC) Essential hypertension, benign HLD (hyperlipidemia) Other and unspecified hyperlipidemia Lymphedema Other lymphedema Neuropathy Mononeuritis of unspecified site Chronic diastolic congestive heart failure (HCC) Chronic diastolic heart failure Obstructive lung disease (generalized) (HCC) Chronic airway obstruction, not elsewhere classified History of pulmonary embolism Personal history of pulmonary embolism Hypersensitivity pneumonitis (HCC) Unspecified allergic alveolitis and pneumonitis Interstitial lung disease (HCC) Postinflammatory pulmonary fibrosis History of asthma Personal history of other diseases of respiratory system Acute on chronic hypoxic respiratory failure (HCC) Type 2 diabetes mellitus without complication, with long-term current use of insulin ([facility]) [facility]* Diagnosis Uterine prolapse- Primary Uterine prolapse without mention of vaginal wall prolapse MORENO (stress urinary incontinence, female) Female stress incontinence Asymptomatic microscopic hematuria Uterine prolapse- Primary Uterine prolapse without mention of vaginal wall prolapse Asymptomatic microscopic hematuria MORENO (stress urinary incontinence, female) Female stress incontinence Encounter for urine test Laboratory examination, unspecified Midline cystocele Cystocele, midline Rectocele Pre-op testing- Primary Preoperative examination, unspecified Chronic diastolic congestive heart failure (HCC) Chronic diastolic heart failure Type 2 diabetes mellitus with diabetic neuropathy, with long-term current use of insulin (HCC) Chronic obstructive pulmonary disease, unspecified COPD type (HCC) Uterine prolapse Uterine prolapse without mention of vaginal wall prolapse Aortic valve insufficiency, etiology of cardiac valve disease unspecified Essential hypertension, benign Other hyperlipidemia Pulmonary hypertension (HCC) Other chronic pulmonary heart diseases Gastroesophageal reflux disease without esophagitis Esophageal reflux Other iron deficiency anemia Acute hypoxic respiratory failure (HCC)- Primary Acute hypoxic respiratory failure (HCC) Type 2 diabetes mellitus with diabetic neuropathy, with long-term current use of insulin (HCC) Essential hypertension, benign HLD (hyperlipidemia) Other and unspecified hyperlipidemia Lymphedema Other lymphedema Neuropathy Mononeuritis of unspecified site Chronic diastolic congestive heart failure (HCC) Chronic diastolic heart failure Obstructive lung disease (generalized) (HCC) Chronic airway obstruction, not elsewhere classified History of pulmonary embolism Personal history of pulmonary embolism Hypersensitivity pneumonitis (HCC) Unspecified allergic alveolitis and pneumonitis Interstitial lung disease (HCC) Postinflammatory pulmonary fibrosis History of asthma Personal history of other diseases of respiratory system Acute on chronic hypoxic respiratory failure (HCC) Chronic diastolic congestive heart failure (HCC)- Primary Chronic diastolic heart failure Obstructive lung disease (generalized) (HCC) Chronic airway obstruction, not elsewhere classified Chronic hypoxemic respiratory failure (HCC) Chronic respiratory failure Bacterial pneumonia Bacterial pneumonia, unspecified [facility] Diagnosis Uterine prolapse- Primary Uterine prolapse without mention of vaginal wall prolapse MORENO (stress urinary incontinence, female) Female stress incontinence Asymptomatic microscopic hematuria Uterine prolapse- Primary Uterine prolapse without mention of vaginal wall prolapse Asymptomatic microscopic hematuria MORENO (stress urinary incontinence, female) Female stress incontinence Encounter for urine test Laboratory examination, unspecified Midline cystocele Cystocele, midline Rectocele Pre-op testing- Primary Preoperative examination, unspecified Chronic diastolic congestive heart failure (HCC) Chronic diastolic heart failure Type 2 diabetes mellitus with diabetic neuropathy, with long-term current use of insulin (HCC) Chronic obstructive pulmonary disease, unspecified COPD type (HCC) Uterine prolapse Uterine prolapse without mention of vaginal wall prolapse Aortic valve insufficiency, etiology of cardiac valve disease unspecified Essential hypertension, benign Other hyperlipidemia Pulmonary hypertension (HCC) Other chronic pulmonary heart diseases Gastroesophageal reflux disease without esophagitis Esophageal reflux Other iron deficiency anemia Acute hypoxic respiratory failure (HCC)- Primary Acute hypoxic respiratory failure (HCC) Type 2 diabetes mellitus with diabetic neuropathy, with long-term current use of insulin (HCC) Essential hypertension, benign HLD (hyperlipidemia) Other and unspecified hyperlipidemia Lymphedema Other lymphedema Neuropathy Mononeuritis of unspecified site Chronic diastolic congestive heart failure (HCC) Chronic diastolic heart failure Obstructive lung disease (generalized) (HCC) Chronic airway obstruction, not elsewhere classified History of pulmonary embolism Personal history of pulmonary embolism Hypersensitivity pneumonitis (HCC) Unspecified allergic alveolitis and pneumonitis Interstitial lung disease (HCC) Postinflammatory pulmonary fibrosis History of asthma Personal history of other diseases of respiratory system Acute on chronic hypoxic respiratory failure (HCC) Bacterial pneumonia Bacterial pneumonia, unspecified [facility]. Ye [facility] May 14, 2022 3:35pm Note Date/Time May 14, 2022 3 :06pm [facility] Medical Records Department [address] [place] [address] H&P Exam - Hospitalist 05/14/22 1505 MR#: [id number] Acct: [id number] Name: JESUS ZEPEDA Rep #:[id number] : 1965 56 From: Mukesh Ye DO PCP: Dr. Barak Tiwari MD Status:ADM I NO Location: [facility] [place] LW256-7 HPI - General General Date of Admission: 05/14/22 Date of Service: 05/14/22 Chief Complaint: Anemia HPI Narrative JESUS ZEPEDA, is a 56 F who presents to the emergency room at [facility] for evaluation of a reddened area over her left lower leg, she also complains of fluid retention in her lower legs which is chronic-she hasa diagnosis of lymphedema, she is not presently on a diuretic. Patient denies any fevers or chills. Work-up in the emergency room included labs which showed her to be severely anemic with a hemoglobin of 6.5, MCV was low at 71.9, sodium was slightly low at133, BUN was 21. Patient's white blood cell count was unremarkable, patient wasafebrile. Patient has had a history of anemia and is seeing Dr. De La Fuente regarding a work- upfor the anemia, she has had blood transfusions before. Patient will be placed into observation status on MedSurg 3, she will be given 2 units of packed red blood cells-according to the emergency room physician, patient has antibodies which makes it difficult for the patient to obtain blood transfusions. I have decided to place the patient on oral antibiotics for the reddened area over her left lower leg and place her on IV Lasix to try to get rid of some of the fluid in her lower legs. I feel she will need to go home on a diuretic. [facility] Medical History Abdominal pain Anxiety Arthritis Asthma Asthma Depression Dietary restriction Easy bruising Gastric reflux High cholesterol History of edema History of pain when walking HTN (hypertension) Hyperlipidemia Hypertension Hypothyroid Insulin dependent diabetes mellitus Leg cramps Low iron Migraines Nausea Non-smoker Postoperative primary hypothyroidism Pulmonary embolism Restless legs Shortness of breath on exertion Thyroid cancer Type 2 diabetes mellitus Wears glasses Home Medications insulin detemir U-100 100 unit/mL (3 mL) subcutaneous pen (Levemir FlexTouch U- 100 Insulin) 74 units subcut QHS DIABETES 04/06/13 [History Last Taken 05/13/22] atorvastatin 40 mg tablet 40 mg PO QHS cholesterol 05/23/17 [History Last Taken 05/13/22] ferrous sulfate 325 mg (65 mg iron) tablet (FeroSul) 325 mg PO BID supplement 05/30/21 [History Last Taken 05/14/22] omeprazole 40 mg capsule,delayed release 40 mg PO DAILY GERD 10/17/21 [History Last Taken 05/14/22] albuterol sulfate 90 mcg/actuation aerosol inhaler (Ventolin HFA) 2 puff inhalation Q6H PRN Shortness Of Breath 05/14/22 [History Last Taken 05/14/22] amlodipine 10 mg tablet 10 mg PO DAILY BLOOD PRESSURE 05/14/22 [History Last Taken 05/14/22] ascorbic acid (vitamin C) 500 mg capsule,extended release (Vitamin C) 500 mg PO BID SUPPLEMENT 05/14/22 [History Last Taken 05/14/22] carvedilol 12.5 mg tablet 12.5 mg PO BID HEART 05/14/22 [History Last Taken 05/14/22] fluorometholone 0.1 % eye drops,suspension 1 drp EACH EYE DAILY PRN EYE INFLAMMATION 05/14/22 [History Last Taken 05/13/22] insulin aspart (niacinamide)(U-100) 100 unit/mL(3 mL) subcutaneous pen (Fiasp FlexTouch U-100 Insulin) 16 unit subcut DAILY DIABETES 05/14/22 [History Last Taken 05/14/22] insulin aspart (niacinamide)(U-100) 100 unit/mL(3 mL) subcutaneous pen (Fiasp FlexTouch U-100 Insulin) 18 unit subcut BID DIABETES 05/14/22 [History Last Taken 05/13/22] levothyroxine 200 mcg tablet 200 mcg PO MOTUWETHFRSA THYROID 05/14/22 [History Last Taken 05/14/22] sitagliptin phosphate 50 mg-metformin 1,000 mg tablet (Janumet) 1 tab PO BIDCM BLOOD SUGARS 05/14/22 [History Last Taken 05/14/22] sucralfate 1 gram tablet (Carafate) 1 g PO BID GERD 05/14/22 [History Last Taken 05/14/22] sumatriptan succinate 50 mg tablet 50 mg PO DAILY PRN Migraine Headache 05/14/22[History Last Taken 05/13/22] Allergy/AdvReac Type Severity Reaction Status Date / Time latex Allergy Rash Verified 05/14/22 09:16 lisinopril AdvReac Other Verified 05/14/22 09:16 Family History Aunt Breast cancer Father Diabetes Hypertension Heart disease Myocardial infarction Mother Diabetes Hypertension Surgical History History of esophagogastroduodenoscopy (EGD) History of laparoscopic cholecystectomy (~11/15/19) Hx of bilateral cataract extraction Hx of tubal ligation S/P partial thyroidectomy Social History Smoking Status: Never smoker ROS ROS Narrative Patient complains of redness over the left lower leg x3 weeks Constitutional Constitutional: Denies anorexia, change in weight, fever(s), night sweats or weakness Eyes Eyes: Denies blurry vision, change in eye color, change in vision, discharge from eye(s) or eye pain ENT HEENT: Denies epistaxis or headache(s) Cardiovascular Cardiovascular: Denies chest pain, claudication, edema or palpitations Respiratory/Chest Respiratory/Chest: Denies cough, dyspnea, hemoptysis, productive cough, shortness of breath at rest or shortness of breath with exertion Gastrointestinal Gastrointestinal: Denies abdominal pain, coffee ground emesis, constipation, diarrhea, dyspepsia, hematemesis, hematochezia, melena, nausea or vomiting Genitourinary Genitourinary: Denies dysuria, hematuria, urinary frequency, urinary hesitancy, urinary incontinence or urinary urgency Musculoskeletal Musculoskeletal: Denies back pain, joint pain, joint stiffness, joint swelling, myalgias or neck pain Neurologic Neurologic: Denies abnormal gait, abnormal speech, dizziness, focal weakness, headache(s), loss of vision, numbness, other visual disturbances, paresthesias, syncope or tingling Psychiatric Psychiatric: Denies anxiety, cognitive impairment, depression, irritability, mood swings or suicidal ideation Endocrine Endocrinology: Denies change in body appearance, cold intolerance, excessive sweating, heat intolerance, polydipsia or polyuria Hematologic/Lymphatic Hematologic/Lymphatic: Denies none, anemia, easy bleeding, easy bruising or lymphadenopathy Allergic/Immunologic Allergic/Immunologic: Denies rhinitis, urticaria, eczemia or asthma Vital Signs Vital Signs Vital Signs: 05/14/22 09:17 Temperature 97.7 F L Temperature Source Temporal Pulse Rate 62 Respiratory Rate 17 Blood Pressure 169/68 H Blood Pressure Mean 101 Pulse Ox 93 Oxygen Delivery Method Room Air Weight Weight: 115.666 kg Body Mass Index (BMI) 42.4 Physical Exam Const alert, oriented x3 and no apparent distress Constitutional Narrative: Patient is morbidly obese General Appearance: cooperative, well kempt and well developed Orientation / Consciousness: awake, oriented to person, oriented to place and oriented to time HEENT normocephalic and moist oral mucous membranes Eyes PERRL, EOMs intact bilaterally and conjunctivae normal Neck supple, no JVD, thyroid normal and no carotid bruits General: trachea midline Resp normal respiratory effort and clear to auscultation bilaterally Auscultation: Negative for rales, rhonchi or wheezes Cardio regular rate, regular rhythm, no murmurs, no rub and no gallops GI normal to inspection, nondistended, normoactive bowel sounds, soft to palpation,non-tender and non-distended Extremity Extremity Narrative: There are chronic lymphedematous changes over both legs noted, there is severe edema noted over the lower legs bilaterally, there is a redness area several centimeters in diameter by several centimeters in length over the left lower legon its outer aspect. Patient has palpable fluid on her skin over the left lowerleg. Skin Skin Narrative: Reddened area noted over the outer aspect of the left lower leg Neuro oriented x3, CN's II-XII intact bilaterally, no focal motor deficits and no sensory deficits noted Sensorium / Orientation: awake, alert, oriented to person, oriented to place andoriented to time Speech: speech normal Psych affect normal Results Lab / Micro Data Result Diagrams: 05/14/22 09:50 05/14/22 09:50 Labs: Laboratory Results - last 24 hr 05/14/22 09:50: WBC 6.1, RBC 3.20 L, Hgb 6.5 L, Hct 23.0 L, MCV 71.9 L, MCH 20.3L, MCHC 28.3 L, RDW Std Deviation 48.3 H, RDW Coeff of Negar 18.6 H, Plt Count 331, MPV 8.9, Immature Gran % (Auto) 0.500, Neut % (Auto) 58.6, Lymph % (Auto) 24.0, Wells % (Auto) 13.6 H, Eos % (Auto) 2.5, Baso % (Auto) 0.8, Absolute Neuts (auto) 3.6, Absolute Lymphs (auto) 1.47, Nucleated RBC % 0 05/14/22 09:50: Sodium 133 L, Potassium 4.1, Chloride 107, Carbon Dioxide 22.0, Anion Gap 4 L, BUN 21 H, Creatinine 1.00, Estim Creat Clear Calc 57.20, Est GFR (MDRD) Af Amer 74, Est GFR (MDRD) Non-Af 61, BUN/Creatinine Ratio 21.0 H, Glucose 100, Calcium 8.6 05/14/22 11:38: PT 15.5 H, INR 1.3, APTT 35.7 05/14/22 11:38: Blood Type O POSITIVE, Antibody Screen POSITIVE H, Antibody Identification ANTI-K 05/14/22 11:38: Crossmatch See Detail 05/14/22 11:38: Antigen Identification K ANTIGEN - NEGATIVE Micro: Microbiology 05/14/22 10:15 Nasal Secretion SARS-CoV-2 & FLU Antigen (Rapid) - Final Radiology Impression Chest X-Ray 05/14/22 10:22 IMPRESSION: Mild degree of CHF superimposed on bibasilar scarring. Electronically Signed: David Burns MD at 10:41 EST , Assessment & Plan Assessment/Plan (1) Anemia: PLAN: Plan 1. Acute on chronic anemia-patient is asymptomatic at this time, she will be placed in observation status on MedSurg 3, she will receive 2 units of packed red blood cells. Due to the fact she has not had any endoscopy since December of last year, I contacted gastroenterology and they will see the patient and perform an EGD tomorrow. I will place the patient on oral Protonix, I do not think she is actively bleeding at the at this time, I will get a serum iron level on the patient. #2 cellulitis of the left lower leg-this is not extensive, I think the patient can be treated with oral antibiotics and topical antifungal cream #3 chronic lymphedema of the legs-patient will need diuresis with IV Lasix due to fluid retention in her lower legs, BMP will be rechecked tomorrow #4 morbid obesity-complicates care, management, recovery, and prognosis #5 essential hypertension-it may be prudent to switch the patient from amlodipine to another hypertensive agent due to her leg edema, she has listed anallergy to lisinopril, I will need to verify what kind of reaction she had on this medication. Total clinical time spent by myself addressing the patient's medical issues, reviewing the patient's data, and collaborating with patient's care team: 55 minutes Charges/Coding Visit Charges Inpatient E&M: 43865 Init Hosp L2 05/14/22 1533 <Electronically signed by Mukesh Ye DO> Cosigner Signature (if applicable): CC: Dr. Mukesh Ye DO; Dr. Barak Tiwari MD~ Signed [facility] Work Phone: Hospital Discharge instructions Additional Instructions Use inhaler as needed for wheezing. Nasal saline spray to nostrils twice a day to help with congestion. 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 Return if any worsening symptoms.[facility] Work Phone: Reason for referral (narrative)* Outpatient Procedure (Routine) - Authorized Specialty Diagnoses / Procedures Referred By Contac t Referred To [facility] Diagnoses SOB (shortness of breath) Chest discomfort Procedures ECG COMPLETE ECG ROUTINE ECG W/LEAST 12 LDS W/I&R Barak Tiwari MD [address] [place] [address] [facility] [address] [place] [address] Referral ID Status Reason Start Date Expiration Date Visits Requested Visits Authorized [id number] Authorized Auto-Generat ed Referral 01/10/2022 01/10/2023 1 1 [facility] for referral (narrative)* Outpatient Procedure (Routine) - Closed Specialty Diagnoses / Procedures Referred By Contac t Referred To Contact [facility] Diagnoses SOB (shortness of breath) Procedures SPIROMETRY WITH DILATOR IF OBSTRUCTED BRNCDILAT RSPSE SPMTRY PRE&POST-BRNCDILAT Chrissy Langford MD [address] [facility] [facility] [place] [address] [facility] [address] [place] [address] Referral ID Status Reason Start Date Expiration Date V isits Requested Visits Authorized [id number] Closed Auto-Generate d Referral 06/20/2022 04/26/2023 1 1 [facility] for referral (narrative)* Outpatient Procedure (Routine) - Closed Specialty Diagnoses / Procedures [facility] Diagnoses Chronic respiratory failure with hypoxia (HCC) Procedures OXIMETRY WITH AMBULATION NONINVASIVE EAR/PULSE OXIMETRY MULTIPLE Barak Manzo MD [address] [place] [address] [facility] [address] [place] [phone] Referral ID Status Reason Start Date Expiration Date V isits Requested Visits Authorized [id number] Closed Auto-Generate d Referral 06/25/2022 07/25/2023 1 1 [facility] for referral (narrative)* Diagnostic Procedure Only (Routine) - Pending Review Specialty Diagnoses / Procedures [facility] To [facility] Diagnoses Screening breast examination Procedures JOSEFA SCREENING SCREENING MAMMOGRAPHY BI 2-VIEW BREAST INC CAD Barak Tiwari MD [address] [place] [address] [facility] [address] [place] [address] Referral ID Status Reason Start Date Expiration Date Visits Requested Visits Authorized [id number] Pending Review Auto-Generat ed Referral 07/18/2022 08/17/2023 1 1 [facility] for referral (narrative)* Diagnostic Procedure Only (Routine) - Closed Specialty Diagnoses / Procedures Referred By Contac t Referred To Contact [facility] Diagnoses Screening breast examination Procedures JOSEFA SCREENING SCREENING MAMMOGRAPHY BI 2-VIEW BREAST INC CAD Barak Tiwari MD [address] [id number] [facility] [address] [place] [address] Referral ID Status Reason Start Date Expiration Date V isits Requested Visits Authorized [id number] Closed Auto-Generate d Referral 07/18/2022 08/17/2023 1 1 [facility] for referral (narrative)* Diagnostic Procedure Only (Routine) - Authorized Specialty Diagnoses / Procedures Referred By Contac t Referred To Contact [facility] Diagnoses Pelvic pain in female Procedures US FEMALE PELVIS TRANSVAG US TRANSVAGINAL Oziel Lang APRN.CNP [address] [place] [address] [place] [address] Referral ID Status Reason Start Date Expiration Date Visits Requested Visits Authorized [id number] Authorized Auto-Generat ed Referral 08/13/2023 09/11/2024 1 1 * Consult, Test, Treat (Routine) - Authorized Specialty Diagnoses / Procedures Referred By Contac t Referred To Contact Diagnoses Complete uterovaginal prolapse Procedures CONSULT TO URO GYNECOLOGY OFFICE/OUTPATIENT [facility] 60 MINUTES Oziel Lang APRN.CNP [address] [place] [address] Referral ID Status Reason Start Date Expiration Date Visits Requested Visits Authorized [id number] Authorized PCP Requested Referral Auto-Generate d Referral 08/13/2023 08/12/2024 1 1 [facility] for referral (narrative)* Outpatient Procedure (Routine) - Authorized Specialty Diagnoses / Procedures Referred By Aly kerns Referred To Contact [facility] Diagnoses ASCUS with positive high risk HPV cervical Procedures COLPOSCOPY COLPOSCOPY CERVIX BX CERVIX & ENDOCRV CURRETAGE Oziel Lang APRN.CNP [address] [place] [address] [facility] [address] [place] [address] Referral ID Status Reason Start Date Expiration Date Visits Requested Visits Authorized [id number] Authorized Auto-Generat ed Referral 08/27/2023 08/26/2024 1 1 [facility] for referral (narrative)* Diagnostic Procedure Only (Urgent) - Pending Review Specialty Diagnoses / Procedures Referred By Aly kerns Referred To Contact [facility] Diagnoses Pain of right lower extremity Procedures US DVT LOWER RIGHT DUP-SCAN XTR VEINS UNILATERAL/LIMITED STUDY July Cedillo APRN.VEHICLE AND EQUIPMENT CLEANER [address] [place] [address] [place] [address] Referral ID Status Reason Start Date Expiration Date Visits Requested Visits Authorized [id number] Pending Review Auto-Generat ed Referral 09/08/2023 10/07/2024 1 1 * Outpatient Procedure (Urgent) - Closed Specialty Diagnoses / Procedures Referred By Aly kerns Referred To [facility] Diagnoses Pain of right lower extremity Procedures US LEG VEIN DVT UNL VAS LAB DUP-SCAN XTR VEINS UNILATERAL/LIMITED STUDY July Cedillo APRN.CNP [address] [place] [address] [facility] [address] [place] [address] Referral ID Status Reason Start Date Expiration Date V isits Requested Visits Authorized [id number] Closed Auto-Generate d Referral 09/08/2023 09/07/2024 1 1 [facility] for referral (narrative)* Diagnostic Procedure Only (Routine) - Authorized Specialty Diagnoses / Procedures Referred By Contac t Referred To Contact [facility] Diagnoses Encounter for screening mammogram for breast cancer Procedures JOSEFA SCREENING W BLAISE SCREENING DIGITAL BREAST TOMOSYNTHESIS BI SCREENING MAMMOGRAPHY BI 2-VIEW BREAST INC Barak Barroso MD [address] [place] [address] [facility] [address] [place] [address] Referral ID Status Reason Start Date Expiration Date Visits Requested Visits Authorized [id number] Authorized Auto-Generat ed Referral 11/25/2023 12/24/2024 1 1 T [facility] for referral (narrative)* Diagnostic Procedure Only (Routine) - Closed Specialty Diagnoses / Procedures Referred By Aly kerns Referred To Contact [facility] Diagnoses Encounter for screening mammogram for breast cancer Procedures JOSEFA SCREENING W BLAISE SCREENING DIGITAL BREAST TOMOSYNTHESIS BI SCREENING MAMMOGRAPHY BI 2-VIEW BREAST INC Barak Barroso MD [address] [place] [address] [facility] [address] [place] [phone] Referral ID Status Reason Start Date Expiration Date V isits Requested Visits Authorized [id number] Closed Auto-Generate d Referral 11/25/2023 12/24/2024 1 1 T [facility] for referral (narrative)* Diagnostic Procedure Only (Routine) - New Request Specialty Diagnoses / Procedures Referred By Aly t Referred To Contact [facility] Diagnoses Uterine prolapse Procedures US FEMALE PELVIS TRANSVAG US TRANSVAGINAL Florencia Lundy MD [address] [place] [address] [place] [address] Phone: [facility] [address] Referral ID Status Reason Start Date Expiration Date Visits Requested Visits Authorized [id number] New Request Auto-Generat ed Referral 12/03/2023 01/01/2025 1 1 * Outpatient Procedure (Routine) - Authorized Specialty Diagnoses / Procedures Referred By Aly kerns Referred To Contact [facility] Diagnoses MORENO (stress urinary incontinence, female) Procedures URODYNAMICS WHI COMPLX CYSTOMETRO W/VOID PRESS&URETHRAL PROFILE Florencia Lundy MD [address] [place] [address] Phone: [address] [phone] Referral ID Status Reason Start Date Expiration Date Visits Requested Visits Authorized [id number] Authorized Auto-Generat ed Referral 12/03/2023 12/02/2024 1 1 [facility] for referral (narrative)* Outpatient Procedure (Routine) - New Request Specialty Diagnoses / Procedures Referred By Aly kerns Referred To Contact [facility] Diagnoses Pre-op testing Chronic diastolic congestive heart failure (HCC) Type 2 diabetes mellitus with diabetic neuropathy, with long-term current use of insulin (HCC) Chronic obstructive pulmonary disease, unspecified COPD type (HCC) Procedures ECG COMPLETE ECG ROUTINE ECG W/LEAST 12 LDS W/I&R Florencia Lundy MD [address] [place] [address] [place] [address] Phone: [address] [address] Referral ID Status Reason Start Date Expiration Date Visits Requested Visits Authorized [id number] New Request Auto-Generat ed Referral 01/26/2024 01/25/2025 1 1 [facility] for visit Narrative* Diagnostic Procedure Only (Routine) - Closed Specialty Diagnoses / Procedures Referred By Aly kersn Referred To Contact [facility] Diagnoses SOB (shortness of breath) Chest discomfort Procedures NM CARDIAC PERF STRESS/PHARM MYOCARDIAL SPECT MULTIPLE STUDIES Barak Tiwari MD [address] [place] [address] [facility] [address] [id number] Referral ID Status Reason Start Date Expiration Date V isits Requested Visits Authorized [id number] Closed Auto-Generate d Referral 06/23/2022 04/26/2023 1 1 [facility] for visit Narrative* Diagnostic Procedure Only (Routine) - Closed Specialty Diagnoses / Procedures Referred By Aly kerns Referred To Contact [facility] Diagnoses Screening breast examination Procedures JOSEFA SCREENING SCREENING MAMMOGRAPHY BI 2-VIEW BREAST INC CAD Barak Tiwari MD [address] [place] [address] [facility] [address] [place] [phone] Referral ID Status Reason Start Date Expiration Date V isits Requested Visits Authorized [id number] Closed Auto-Generate d Referral 07/18/2022 08/17/2023 1 1 [facility] for visit Narrative* Diagnostic Procedure Only (Routine) - Closed Specialty Diagnoses / Procedures Referred By Aly kerns Referred To Contact [facility] Diagnoses Encounter for screening mammogram for breast cancer Procedures JOSEFA SCREENING W BLAISE SCREENING DIGITAL BREAST TOMOSYNTHESIS BI SCREENING MAMMOGRAPHY BI 2-VIEW BREAST INC CAD Barak Tiwari MD [address] [place] [address] [facility] [address] [place] [address] Referral ID Status Reason Start Date Expiration Date V isits Requested Visits Authorized [id number] Closed Auto-Generate d Referral 11/25/2023 12/24/2024 1 1 [facility] for visit Narrative* Diagnostic Procedure Only (Routine) - Closed Specialty Diagnoses / Procedures Referred By Aly kerns Referred To Contact [facility] Diagnoses Encounter for screening mammogram for breast cancer Procedures JOSEFA SCREENING W BLAISE SCREENING DIGITAL BREAST TOMOSYNTHESIS BI SCREENING MAMMOGRAPHY BI 2-VIEW BREAST INC Barak Barroso MD [address] [place] [address] Phone: tel: fax: [facility] [address] [place] [address] Referral ID Status Reason Start Date Expiration Date V isits Requested Visits Authorized [id number] Closed Auto-Generate d Referral 11/30/2024 12/30/2025 1 1 [facility] Summary Purpose Family History No Family History Records Found Relationship Condition Age at Onset Recorded Date/T jimenez aunt Malignant neoplasm of breast Unknown father Diabetes mellitus Unknown Hypertension Unknown Cardiac disease Unknown Myocardial infarction Unknown mother Diabetes mellitus Unknown Relationship Condition Age at Onset Recorded Date/T jimenez aunt Malignant neoplasm of breast Unknown father Diabetes mellitus Unknown Hypertension Unknown Cardiac disease Unknown Myocardial infarction Unknown mother Diabetes mellitus Unknown Heart murmur Unknown Disorder of thyroid Unknown brother Diabetes mellitus Unknown grandmother Pneumothorax Unknown Advance Directives No Advanced Directives Records Found Advance Directive Response Recorded Date/ Time Living Will No January 09, 2021 9:28am Power of Training Instructor No December 9:28am Advance Directive Response Recorded Date/ Time Living Will No January 10, 2022 6:28pm Power of Training Instructor No December 6:28pm Advance Directive Response Recorded Date/ Time Living Will No January 30 3:16pm Power of Training Instructor No January 30 3:16pm Advance Directive Response Recorded Date/ Time Living Will No February 07 12:31pm Power of Training Instructor No February 07, 2022 12:31pm Advance Directive Response Recorded Date/ Time Living Will No May 14 3:37pm Power of Training Instructor No May 14, 2022 3:37pm Advance Directive Response Recorded Date/ Time Living Will No May 14 4:37pm Power of Training Instructor No May 14, 2022 4:37pm Date Activated Date Inactivated Comments 12/17/2024 12:37 AM 12/21/2024 8:30 PM Question Answer Comments Full Code Order Discussed With: Patient Documents on File Type Date Recorded 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 NPP SENT SHORTNESS OF BREATH ACUTE ANEMIA, HYPOXIA ACUTE ANEMIA, HYPOXIA ACUTE ANEMIA, HYPOXIA ACUTE ANEMIA, HYPOXIA ACUTE ANEMIA, HYPOXIA shortness of breath SOB Reason for Visit Postoperative primar y hypothyroidism Thyroid cancer Anemia requiring transfusions Hypoxia Shortness of breath Chief Complaint shortness of breath SOB SYMTOMATIC ANEMIA, CELLULITIS Reason for Visit Anemia Chief Complaint shortness of breath SOB SYMTOMATIC ANEMIA, CELLULITIS SYMTOMATIC ANEMIA, CELLULITIS ACUTE ON CHRONIC ANEMIA ACUTE ON CHRONIC ANEMIA Reason for Visit Anemia Cellulitis of left leg Symptomatic anemia Type 2 diabetes mellitus Chief Complaint SYMTOMATIC ANEMIA, C ELLULITIS SYMTOMATIC ANEMIA, CELLULITIS PREOP ACUTE ON CHRONIC ANEMIA ACUTE ON CHRONIC ANEMIA ACUTE ON CHRONIC ANEMIA Consult CHF (LINH) E ORDER Reason for Visit Anemia Type 2 diabetes mellitus Anemia COPD (chronic obstructive pulmonary disease) Dyspnea on exertion HTN (hypertension) Hyperlipidemia Non-pitting edema Obesity Type 2 diabetes mellitus Chief Complaint SYMTOMATIC ANEMIA, C ELLULITIS SYMTOMATIC ANEMIA, CELLULITIS PREOP ACUTE ON CHRONIC ANEMIA ACUTE ON CHRONIC ANEMIA ACUTE ON CHRONIC ANEMIA Consult CHF (LINH) E ORDER CHF Amb Documentation Reason for Visit Anemia Type 2 diabetes mellitus Anemia COPD (chronic obstructive pulmonary disease) Dyspnea on exertion HTN (hypertension) Hyperlipidemia Non-pitting edema Obesity Type 2 diabetes mellitus Chief Complaint CHF (LINH) E ORDER CHF Amb Documentation Amb Documentation 3 M FU WOUND WOUND Reason for Visit Anemia COPD (chronic obstructive pulmonary disease) Dyspnea on exertion HTN (hypertension) Hyperlipidemia Non-pitting edema Obesity Type 2 diabetes mellitus Anemia Aortic valve regurgitation COPD (chronic obstructive pulmonary disease) Dyspnea on exertion HTN (hypertension) Hyperlipidemia Non-pitting edema Obesity Pulmonary hypertension Type 2 diabetes mellitus Ulcer of left lower leg Reason for Referral Specialty Diagnoses / Procedures Referred By Contac t Referred To Contact CT IMAGING Diagnoses Chest pain on breathing Procedures CT CHEST W IVCON PE DIAGNOSTIC COMPUTED TOMOGRAPHY THORAX W/CONTRAST Barak Tiwari MD [address] [place] [address] [address] [address] Referral ID Status Reason Start Date Expiration Date Visits Requested Visits Authorized [id number] Pending Review Auto-Generat ed Referral 01/10/2022 02/09/2023 1 1 Specialty Diagnoses / Procedures Referred By Contac t Referred To Contact Cardiology Diagnoses Congestive heart failure, unspecified HF chronicity, unspecified heart failure type (HCC) Procedures CONSULT TO CARDIOLOGY OFFICE/OUTPATIENT [facility] 60-74 MINUTES Barak Tiwari MD [address] [place] [address] Referral ID Status Reason Start Date Expiration Date Visits Requested Visits Authorized [id number] Pending Review PCP Requested Referral 05/23/2022 05/23/2023 1 1 Specialty Diagnoses / Procedures Referred By Contac t Referred To Contact Gastroenterology Diagnoses Iron deficiency anemia, unspecified iron deficiency anemia type Gastrointestinal hemorrhage, unspecified gastrointestinal hemorrhage type Procedures CONSULT TO GASTROENTEROLOGY Barak Tiwari MD [address] [place] [id number] Referral ID Status Reason Start Date Expiration Date Visits Requested Visits Authorized [id number] Ref Not Required PCP Requested Referral 06/06/2022 06/06/2023 1 1 Specialty Diagnoses / Procedures Referred By Contac t Referred To Contact Barak Tiwari MD [address] [place] [id number] Referral ID Status Reason Start Date Expiration Date Visits Re quested Visits Authorized [id number] Closed 1 1 Referral ID Status Reason Start Date Expiration Date V isits Requested Visits Authorized [id number] Pending Review 1 1 Specialty Diagnoses / Procedures Referred By Contac t Referred To Contact Pulmonary and Critical Care Medicine Diagnoses Obstructive lung disease (generalized) (HCC) Chronic hypoxemic respiratory failure (HCC) Obesity hypoventilation syndrome (HCC) Procedures CONSULT TO PULM/CRITICAL CARE OFFICE/OUTPATIENT [facility] 60 MINUTES Barak Tiwari MD [address] [place] [address] Referral ID Status Reason Start Date Expiration Date Visits Requested Visits Authorized [id number] Authorized PCP Requested Referral 11/25/2023 11/24/2024 1 1 Specialty Diagnoses / Procedures Referred By Contac t Referred To Contact Cardiology Diagnoses Chronic diastolic congestive heart failure (HCC) Chronic obstructive pulmonary disease, unspecified COPD type (HCC) Procedures CONSULT TO CARDIOLOGY Barak Tiwari MD [address] [place] [address] Referral ID Status Reason Start Date Expiration Date Visits Requested Visits Authorized [id number] Ref Not Required PCP Requested Referral 11/25/2023 11/24/2024 1 1 Specialty Diagnoses / Procedures Referred By Contac t Referred To Contact Gastroenterology Diagnoses Anemia, unspecified type Procedures CONSULT TO GASTROENTEROLOGY OFFICE/OUTPATIENT [facility] 60 MINUTES Barak Tiwari MD [address] [place] [address] Referral ID Status Reason Start Date Expiration Date Visits Requested Visits Authorized [id number] Authorized PCP Requested Referral 12/02/2023 12/01/2024 1 1 Additional Source Comments INFORMATION SOURCE (unrecogn ized section and content) DATE CREATED AUTHOR 10/20/2017 [facility] DATE CREATED AUTHOR AUTHOR'S ORGANIZ ATION 08/09/2024 [facility] DATE CREATED AUTHOR AUTHOR'S ORGANIZ ATION 12/18/2024 [facility] DATE CREATED AUTHOR AUTHOR'S ORGANIZ ATION 12/28/2024 [facility] DATE CREATED AUTHOR AUTHOR'S ORGANIZ ATION 03/09/2025 [facility] Source Comments (unrecognize d section and content) In the event this informatio n is protected by the Federal Confidentiality of Alcohol and Drug Abuse Patient Records regulations: The Federal rules restrict any use of the information to criminally investigate or prosecute any alcohol or drug abuse patient.[facility] FoundationIn the event this information is protected by the Federal Confidentiality of Alcohol and Drug Abuse Patient Records regulations: The Federal rules restrict any use of the information to criminally investigate or prosecute any alcohol or drug abuse patient.[facility] FoundationIn the event this information is protected by the Federal Confidentiality of Alcohol and Drug Abuse Patient Records regulations: The Federal rules restrict any use of the information to criminally investigate or prosecute any alcohol or drug abuse patient.[facility] FoundationIn the event this information is protected by the Federal Confidentiality of Alcohol and Drug Abuse Patient Records regulations: The Federal rules restrict any use of the information to criminally investigate or prosecute any alcohol or drug abuse patient.[facility] FoundationIn the event this information is protected by the Federal Confidentiality of Alcohol and Drug Abuse Patient Records regulations: The Federal rules restrict any use of the information to criminally investigate or prosecute any alcohol or drug abuse patient.[facility] FoundationIn the event this information is protected by the Federal Confidentiality of Alcohol and Drug Abuse Patient Records regulations: The Federal rules restrict any use of the information to criminally investigate or prosecute any alcohol or drug abuse patient.[facility] FoundationIn the event this information is protected by the Federal Confidentiality of Alcohol and Drug Abuse Patient Records regulations: The Federal rules restrict any use of the information to criminally investigate or prosecute any alcohol or drug abuse patient.[facility] FoundationIn the event this information is protected by the Federal Confidentiality of Alcohol and Drug Abuse Patient Records regulations: The Federal rules restrict any use of the information to criminally investigate or prosecute any alcohol or drug abuse patient.[facility] FoundationIn the event this information is protected by the Federal Confidentiality of Alcohol and Drug Abuse Patient Records regulations: The Federal rules restrict any use of the information to criminally investigate or prosecute any alcohol or drug abuse patient.[facility] FoundationIn the event this information is protected by the Federal Confidentiality of Alcohol and Drug Abuse Patient Records regulations: The Federal rules restrict any use of the information to criminally investigate or prosecute any alcohol or drug abuse patient.[facility] FoundationIn the event this information is protected by the Federal Confidentiality of Alcohol and Drug Abuse Patient Records regulations: The Federal rules restrict any use of the information to criminally investigate or prosecute any alcohol or drug abuse patient.[facility] FoundationIn the event this information is protected by the Federal Confidentiality of Alcohol and Drug Abuse Patient Records regulations: The Federal rules restrict any use of the information to criminally investigate or prosecute any alcohol or drug abuse patient.[facility] FoundationIn the event this information is protected by the Federal Confidentiality of Alcohol and Drug Abuse Patient Records regulations: The Federal rules restrict any use of the information to criminally investigate or prosecute any alcohol or drug abuse patient.[facility] FoundationIn the event this information is protected by the Federal Confidentiality of Alcohol and Drug Abuse Patient Records regulations: The Federal rules restrict any use of the information to criminally investigate or prosecute any alcohol or drug abuse patient.[facility] FoundationIn the event this information is protected by the Federal Confidentiality of Alcohol and Drug Abuse Patient Records regulations: The Federal rules restrict any use of the information to criminally investigate or prosecute any alcohol or drug abuse patient.[facility] FoundationIn the event this information is protected by the Federal Confidentiality of Alcohol and Drug Abuse Patient Records regulations: The Federal rules restrict any use of the information to criminally investigate or prosecute any alcohol or drug abuse patient.[facility] FoundationIn the event this information is protected by the Federal Confidentiality of Alcohol and Drug Abuse Patient Records regulations: The Federal rules restrict any use of the information to criminally investigate or prosecute any alcohol or drug abuse patient.[facility] FoundationIn the event this information is protected by the Federal Confidentiality of Alcohol and Drug Abuse Patient Records regulations: The Federal rules restrict any use of the information to criminally investigate or prosecute any alcohol or drug abuse patient.[facility] FoundationIn the event this information is protected by the Federal Confidentiality of Alcohol and Drug Abuse Patient Records regulations: The Federal rules restrict any use of the information to criminally investigate or prosecute any alcohol or drug abuse patient.[facility] FoundationIn the event this information is protected by the Federal Confidentiality of Alcohol and Drug Abuse Patient Records regulations: The Federal rules restrict any use of the information to criminally investigate or prosecute any alcohol or drug abuse patient.[facility] FoundationIn the event this information is protected by the Federal Confidentiality of Alcohol and Drug Abuse Patient Records regulations: The Federal rules restrict any use of the information to criminally investigate or prosecute any alcohol or drug abuse patient.[facility] FoundationIn the event this information is protected by the Federal Confidentiality of Alcohol and Drug Abuse Patient Records regulations: The Federal rules restrict any use of the information to criminally investigate or prosecute any alcohol or drug abuse patient.[facility] FoundationIn the event this information is protected by the Federal Confidentiality of Alcohol and Drug Abuse Patient Records regulations: The Federal rules restrict any use of the information to criminally investigate or prosecute any alcohol or drug abuse patient.[facility] FoundationIn the event this information is protected by the Federal Confidentiality of Alcohol and Drug Abuse Patient Records regulations: The Federal rules restrict any use of the information to criminally investigate or prosecute any alcohol or drug abuse patient.[facility] FoundationIn the event this information is protected by the Federal Confidentiality of Alcohol and Drug Abuse Patient Records regulations: The Federal rules restrict any use of the information to criminally investigate or prosecute any alcohol or drug abuse patient.[facility] FoundationIn the event this information is protected by the Federal Confidentiality of Alcohol and Drug Abuse Patient Records regulations: The Federal rules restrict any use of the information to criminally investigate or prosecute any alcohol or drug abuse patient.[facility] FoundationIn the event this information is protected by the Federal Confidentiality of Alcohol and Drug Abuse Patient Records regulations: The Federal rules restrict any use of the information to criminally investigate or prosecute any alcohol or drug abuse patient.[facility] FoundationIn the event this information is protected by the Federal Confidentiality of Alcohol and Drug Abuse Patient Records regulations: The Federal rules restrict any use of the information to criminally investigate or prosecute any alcohol or drug abuse patient.[facility] FoundationIn the event this information is protected by the Federal Confidentiality of Alcohol and Drug Abuse Patient Records regulations: The Federal rules restrict any use of the information to criminally investigate or prosecute any alcohol or drug abuse patient.[facility] FoundationIn the event this information is protected by the Federal Confidentiality of Alcohol and Drug Abuse Patient Records regulations: The Federal rules restrict any use of the information to criminally investigate or prosecute any alcohol or drug abuse patient.[facility] FoundationIn the event this information is protected by the Federal Confidentiality of Alcohol and Drug Abuse Patient Records regulations: The Federal rules restrict any use of the information to criminally investigate or prosecute any alcohol or drug abuse patient.[facility] FoundationIn the event this information is protected by the Federal Confidentiality of Alcohol and Drug Abuse Patient Records regulations: The Federal rules restrict any use of the information to criminally investigate or prosecute any alcohol or drug abuse patient.[facility] FoundationIn the event this information is protected by the Federal Confidentiality of Alcohol and Drug Abuse Patient Records regulations: The Federal rules restrict any use of the information to criminally investigate or prosecute any alcohol or drug abuse patient.[facility] FoundationIn the event this information is protected by the Federal Confidentiality of Alcohol and Drug Abuse Patient Records regulations: The Federal rules restrict any use of the information to criminally investigate or prosecute any alcohol or drug abuse patient.[facility] FoundationIn the event this information is protected by the Federal Confidentiality of Alcohol and Drug Abuse Patient Records regulations: The Federal rules restrict any use of the information to criminally investigate or prosecute any alcohol or drug abuse patient.[facility] FoundationIn the event this information is protected by the Federal Confidentiality of Alcohol and Drug Abuse Patient Records regulations: The Federal rules restrict any use of the information to criminally investigate or prosecute any alcohol or drug abuse patient.[facility] FoundationIn the event this information is protected by the Federal Confidentiality of Alcohol and Drug Abuse Patient Records regulations: The Federal rules restrict any use of the information to criminally investigate or prosecute any alcohol or drug abuse patient.[facility] FoundationIn the event this information is protected by the Federal Confidentiality of Alcohol and Drug Abuse Patient Records regulations: The Federal rules restrict any use of the information to criminally investigate or prosecute any alcohol or drug abuse patient.[facility] FoundationIn the event this information is protected by the Federal Confidentiality of Alcohol and Drug Abuse Patient Records regulations: The Federal rules restrict any use of the information to criminally investigate or prosecute any alcohol or drug abuse patient.[facility] FoundationIn the event this information is protected by the Federal Confidentiality of Alcohol and Drug Abuse Patient Records regulations: The Federal rules restrict any use of the information to criminally investigate or prosecute any alcohol or drug abuse patient.[facility] FoundationIn the event this information is protected by the Federal Confidentiality of Alcohol and Drug Abuse Patient Records regulations: The Federal rules restrict any use of the information to criminally investigate or prosecute any alcohol or drug abuse patient.[facility] FoundationIn the event this information is protected by the Federal Confidentiality of Alcohol and Drug Abuse Patient Records regulations: The Federal rules restrict any use of the information to criminally investigate or prosecute any alcohol or drug abuse patient.[facility] FoundationIn the event this information is protected by the Federal Confidentiality of Alcohol and Drug Abuse Patient Records regulations: The Federal rules restrict any use of the information to criminally investigate or prosecute any alcohol or drug abuse patient.[facility] FoundationIn the event this information is protected by the Federal Confidentiality of Alcohol and Drug Abuse Patient Records regulations: The Federal rules restrict any use of the information to criminally investigate or prosecute any alcohol or drug abuse patient.[facility] FoundationIn the event this information is protected by the Federal Confidentiality of Alcohol and Drug Abuse Patient Records regulations: The Federal rules restrict any use of the information to criminally investigate or prosecute any alcohol or drug abuse patient.[facility] FoundationIn the event this information is protected by the Federal Confidentiality of Alcohol and Drug Abuse Patient Records regulations: The Federal rules restrict any use of the information to criminally investigate or prosecute any alcohol or drug abuse patient.[facility] FoundationIn the event this information is protected by the Federal Confidentiality of Alcohol and Drug Abuse Patient Records regulations: The Federal rules restrict any use of the information to criminally investigate or prosecute any alcohol or drug abuse patient.[facility] FoundationIn the event this information is protected by the Federal Confidentiality of Alcohol and Drug Abuse Patient Records regulations: The Federal rules restrict any use of the information to criminally investigate or prosecute any alcohol or drug abuse patient.[facility] FoundationIn the event this information is protected by the Federal Confidentiality of Alcohol and Drug Abuse Patient Records regulations: The Federal rules restrict any use of the information to criminally investigate or prosecute any alcohol or drug abuse patient.[facility] FoundationIn the event this information is protected by the Federal Confidentiality of Alcohol and Drug Abuse Patient Records regulations: The Federal rules restrict any use of the information to criminally investigate or prosecute any alcohol or drug abuse patient.[facility] FoundationIn the event this information is protected by the Federal Confidentiality of Alcohol and Drug Abuse Patient Records regulations: The Federal rules restrict any use of the information to criminally investigate or prosecute any alcohol or drug abuse patient.[facility] FoundationIn the event this information is protected by the Federal Confidentiality of Alcohol and Drug Abuse Patient Records regulations: The Federal rules restrict any use of the information to criminally investigate or prosecute any alcohol or drug abuse patient.[facility] FoundationIn the event this information is protected by the Federal Confidentiality of Alcohol and Drug Abuse Patient Records regulations: The Federal rules restrict any use of the information to criminally investigate or prosecute any alcohol or drug abuse patient.[facility] FoundationIn the event this information is protected by the Federal Confidentiality of Alcohol and Drug Abuse Patient Records regulations: The Federal rules restrict any use of the information to criminally investigate or prosecute any alcohol or drug abuse patient.[facility] FoundationIn the event this information is protected by the Federal Confidentiality of Alcohol and Drug Abuse Patient Records regulations: The Federal rules restrict any use of the information to criminally investigate or prosecute any alcohol or drug abuse patient.[facility] FoundationIn the event this information is protected by the Federal Confidentiality of Alcohol and Drug Abuse Patient Records regulations: The Federal rules restrict any use of the information to criminally investigate or prosecute any alcohol or drug abuse patient.[facility] FoundationIn the event this information is protected by the Federal Confidentiality of Alcohol and Drug Abuse Patient Records regulations: The Federal rules restrict any use of the information to criminally investigate or prosecute any alcohol or drug abuse patient.[facility] FoundationIn the event this information is protected by the Federal Confidentiality of Alcohol and Drug Abuse Patient Records regulations: The Federal rules restrict any use of the information to criminally investigate or prosecute any alcohol or drug abuse patient.[facility] FoundationIn the event this information is protected by the Federal Confidentiality of Alcohol and Drug Abuse Patient Records regulations: The Federal rules restrict any use of the information to criminally investigate or prosecute any alcohol or drug abuse patient.[facility] FoundationIn the event this information is protected by the Federal Confidentiality of Alcohol and Drug Abuse Patient Records regulations: The Federal rules restrict any use of the information to criminally investigate or prosecute any alcohol or drug abuse patient.[facility] FoundationIn the event this information is protected by the Federal Confidentiality of Alcohol and Drug Abuse Patient Records regulations: The Federal rules restrict any use of the information to criminally investigate or prosecute any alcohol or drug abuse patient.[facility] FoundationIn the event this information is protected by the Federal Confidentiality of Alcohol and Drug Abuse Patient Records regulations: The Federal rules restrict any use of the information to criminally investigate or prosecute any alcohol or drug abuse patient.[facility] FoundationIn the event this information is protected by the Federal Confidentiality of Alcohol and Drug Abuse Patient Records regulations: The Federal rules restrict any use of the information to criminally investigate or prosecute any alcohol or drug abuse patient.[facility] FoundationIn the event this information is protected by the Federal Confidentiality of Alcohol and Drug Abuse Patient Records regulations: The Federal rules restrict any use of the information to criminally investigate or prosecute any alcohol or drug abuse patient.[facility] FoundationIn the event this information is protected by the Federal Confidentiality of Alcohol and Drug Abuse Patient Records regulations: The Federal rules restrict any use of the information to criminally investigate or prosecute any alcohol or drug abuse patient.[facility] FoundationIn the event this information is protected by the Federal Confidentiality of Alcohol and Drug Abuse Patient Records regulations: The Federal rules restrict any use of the information to criminally investigate or prosecute any alcohol or drug abuse patient.[facility] FoundationIn the event this information is protected by the Federal Confidentiality of Alcohol and Drug Abuse Patient Records regulations: The Federal rules restrict any use of the information to criminally investigate or prosecute any alcohol or drug abuse patient.[facility] FoundationIn the event this information is protected by the Federal Confidentiality of Alcohol and Drug Abuse Patient Records regulations: The Federal rules restrict any use of the information to criminally investigate or prosecute any alcohol or drug abuse patient.[facility] FoundationIn the event this information is protected by the Federal Confidentiality of Alcohol and Drug Abuse Patient Records regulations: The Federal rules restrict any use of the information to criminally investigate or prosecute any alcohol or drug abuse patient.[facility] FoundationIn the event this information is protected by the Federal Confidentiality of Alcohol and Drug Abuse Patient Records regulations: The Federal rules restrict any use of the information to criminally investigate or prosecute any alcohol or drug abuse patient.[facility] FoundationIn the event this information is protected by the Federal Confidentiality of Alcohol and Drug Abuse Patient Records regulations: The Federal rules restrict any use of the information to criminally investigate or prosecute any alcohol or drug abuse patient.[facility] FoundationIn the event this information is protected by the Federal Confidentiality of Alcohol and Drug Abuse Patient Records regulations: The Federal rules restrict any use of the information to criminally investigate or prosecute any alcohol or drug abuse patient.[facility] FoundationIn the event this information is protected by the Federal Confidentiality of Alcohol and Drug Abuse Patient Records regulations: The Federal rules restrict any use of the information to criminally investigate or prosecute any alcohol or drug abuse patient.[facility] FoundationIn the event this information is protected by the Federal Confidentiality of Alcohol and Drug Abuse Patient Records regulations: The Federal rules restrict any use of the information to criminally investigate or prosecute any alcohol or drug abuse patient.[facility] FoundationIn the event this information is protected by the Federal Confidentiality of Alcohol and Drug Abuse Patient Records regulations: The Federal rules restrict any use of the information to criminally investigate or prosecute any alcohol or drug abuse patient.[facility] FoundationIn the event this information is protected by the Federal Confidentiality of Alcohol and Drug Abuse Patient Records regulations: The Federal rules restrict any use of the information to criminally investigate or prosecute any alcohol or drug abuse patient.[facility] FoundationIn the event this information is protected by the Federal Confidentiality of Alcohol and Drug Abuse Patient Records regulations: The Federal rules restrict any use of the information to criminally investigate or prosecute any alcohol or drug abuse patient.[facility] FoundationIn the event this information is protected by the Federal Confidentiality of Alcohol and Drug Abuse Patient Records regulations: The Federal rules restrict any use of the information to criminally investigate or prosecute any alcohol or drug abuse patient.[facility] FoundationIn the event this information is protected by the Federal Confidentiality of Alcohol and Drug Abuse Patient Records regulations: The Federal rules restrict any use of the information to criminally investigate or prosecute any alcohol or drug abuse patient.[facility] FoundationIn the event this information is protected by the Federal Confidentiality of Alcohol and Drug Abuse Patient Records regulations: The Federal rules restrict any use of the information to criminally investigate or prosecute any alcohol or drug abuse patient.[facility] FoundationIn the event this information is protected by the Federal Confidentiality of Alcohol and Drug Abuse Patient Records regulations: The Federal rules restrict any use of the information to criminally investigate or prosecute any alcohol or drug abuse patient.[facility] FoundationIn the event this information is protected by the Federal Confidentiality of Alcohol and Drug Abuse Patient Records regulations: The Federal rules restrict any use of the information to criminally investigate or prosecute any alcohol or drug abuse patient.[facility] FoundationIn the event this information is protected by the Federal Confidentiality of Alcohol and Drug Abuse Patient Records regulations: The Federal rules restrict any use of the information to criminally investigate or prosecute any alcohol or drug abuse patient.[facility] FoundationIn the event this information is protected by the Federal Confidentiality of Alcohol and Drug Abuse Patient Records regulations: The Federal rules restrict any use of the information to criminally investigate or prosecute any alcohol or drug abuse patient.[facility] FoundationIn the event this information is protected by the Federal Confidentiality of Alcohol and Drug Abuse Patient Records regulations: The Federal rules restrict any use of the information to criminally investigate or prosecute any alcohol or drug abuse patient.[facility] FoundationIn the event this information is protected by the Federal Confidentiality of Alcohol and Drug Abuse Patient Records regulations: The Federal rules restrict any use of the information to criminally investigate or prosecute any alcohol or drug abuse patient.[facility] FoundationIn the event this information is protected by the Federal Confidentiality of Alcohol and Drug Abuse Patient Records regulations: The Federal rules restrict any use of the information to criminally investigate or prosecute any alcohol or drug abuse patient.[facility] FoundationIn the event this information is protected by the Federal Confidentiality of Alcohol and Drug Abuse Patient Records regulations: The Federal rules restrict any use of the information to criminally investigate or prosecute any alcohol or drug abuse patient.[facility] FoundationIn the event this information is protected by the Federal Confidentiality of Alcohol and Drug Abuse Patient Records regulations: The Federal rules restrict any use of the information to criminally investigate or prosecute any alcohol or drug abuse patient.[facility] FoundationIn the event this information is protected by the Federal Confidentiality of Alcohol and Drug Abuse Patient Records regulations: The Federal rules restrict any use of the information to criminally investigate or prosecute any alcohol or drug abuse patient.[facility] FoundationIn the event this information is protected by the Federal Confidentiality of Alcohol and Drug Abuse Patient Records regulations: The Federal rules restrict any use of the information to criminally investigate or prosecute any alcohol or drug abuse patient.[facility] FoundationIn the event this information is protected by the Federal Confidentiality of Alcohol and Drug Abuse Patient Records regulations: The Federal rules restrict any use of the information to criminally investigate or prosecute any alcohol or drug abuse patient.[facility] FoundationIn the event this information is protected by the Federal Confidentiality of Alcohol and Drug Abuse Patient Records regulations: The Federal rules restrict any use of the information to criminally investigate or prosecute any alcohol or drug abuse patient.[facility] FoundationIn the event this information is protected by the Federal Confidentiality of Alcohol and Drug Abuse Patient Records regulations: The Federal rules restrict any use of the information to criminally investigate or prosecute any alcohol or drug abuse patient.[facility] FoundationIn the event this information is protected by the Federal Confidentiality of Alcohol and Drug Abuse Patient Records regulations: The Federal rules restrict any use of the information to criminally investigate or prosecute any alcohol or drug abuse patient.[facility] FoundationIn the event this information is protected by the Federal Confidentiality of Alcohol and Drug Abuse Patient Records regulations: The Federal rules restrict any use of the information to criminally investigate or prosecute any alcohol or drug abuse patient.[facility] FoundationIn the event this information is protected by the Federal Confidentiality of Alcohol and Drug Abuse Patient Records regulations: The Federal rules restrict any use of the information to criminally investigate or prosecute any alcohol or drug abuse patient.[facility] FoundationIn the event this information is protected by the Federal Confidentiality of Alcohol and Drug Abuse Patient Records regulations: The Federal rules restrict any use of the information to criminally investigate or prosecute any alcohol or drug abuse patient.[facility] FoundationIn the event this information is protected by the Federal Confidentiality of Alcohol and Drug Abuse Patient Records regulations: The Federal rules restrict any use of the information to criminally investigate or prosecute any alcohol or drug abuse patient.[facility] FoundationIn the event this information is protected by the Federal Confidentiality of Alcohol and Drug Abuse Patient Records regulations: The Federal rules restrict any use of the information to criminally investigate or prosecute any alcohol or drug abuse patient.[facility] FoundationIn the event this information is protected by the Federal Confidentiality of Alcohol and Drug Abuse Patient Records regulations: The Federal rules restrict any use of the information to criminally investigate or prosecute any alcohol or drug abuse patient.[facility] FoundationIn the event this information is protected by the Federal Confidentiality of Alcohol and Drug Abuse Patient Records regulations: The Federal rules restrict any use of the information to criminally investigate or prosecute any alcohol or drug abuse patient.[facility] FoundationIn the event this information is protected by the Federal Confidentiality of Alcohol and Drug Abuse Patient Records regulations: The Federal rules restrict any use of the information to criminally investigate or prosecute any alcohol or drug abuse patient.[facility] FoundationIn the event this information is protected by the Federal Confidentiality of Alcohol and Drug Abuse Patient Records regulations: The Federal rules restrict any use of the information to criminally investigate or prosecute any alcohol or drug abuse patient.[facility] FoundationIn the event this information is protected by the Federal Confidentiality of Alcohol and Drug Abuse Patient Records regulations: The Federal rules restrict any use of the information to criminally investigate or prosecute any alcohol or drug abuse patient.[facility] FoundationIn the event this information is protected by the Federal Confidentiality of Alcohol and Drug Abuse Patient Records regulations: The Federal rules restrict any use of the information to criminally investigate or prosecute any alcohol or drug abuse patient.[facility] FoundationIn the event this information is protected by the Federal Confidentiality of Alcohol and Drug Abuse Patient Records regulations: The Federal rules restrict any use of the information to criminally investigate or prosecute any alcohol or drug abuse patient.[facility] FoundationIn the event this information is protected by the Federal Confidentiality of Alcohol and Drug Abuse Patient Records regulations: The Federal rules restrict any use of the information to criminally investigate or prosecute any alcohol or drug abuse patient.[facility] FoundationIn the event this information is protected by the Federal Confidentiality of Alcohol and Drug Abuse Patient Records regulations: The Federal rules restrict any use of the information to criminally investigate or prosecute any alcohol or drug abuse patient.[facility] FoundationIn the event this information is protected by the Federal Confidentiality of Alcohol and Drug Abuse Patient Records regulations: The Federal rules restrict any use of the information to criminally investigate or prosecute any alcohol or drug abuse patient.[facility] FoundationIn the event this information is protected by the Federal Confidentiality of Alcohol and Drug Abuse Patient Records regulations: The Federal rules restrict any use of the information to criminally investigate or prosecute any alcohol or drug abuse patient.[facility] FoundationIn the event this information is protected by the Federal Confidentiality of Alcohol and Drug Abuse Patient Records regulations: The Federal rules restrict any use of the information to criminally investigate or prosecute any alcohol or drug abuse patient.[facility] FoundationIn the event this information is protected by the Federal Confidentiality of Alcohol and Drug Abuse Patient Records regulations: The Federal rules restrict any use of the information to criminally investigate or prosecute any alcohol or drug abuse patient.[facility] FoundationIn the event this information is protected by the Federal Confidentiality of Alcohol and Drug Abuse Patient Records regulations: The Federal rules restrict any use of the information to criminally investigate or prosecute any alcohol or drug abuse patient.[facility] FoundationIn the event this information is protected by the Federal Confidentiality of Alcohol and Drug Abuse Patient Records regulations: The Federal rules restrict any use of the information to criminally investigate or prosecute any alcohol or drug abuse patient.[facility] FoundationIn the event this information is protected by the Federal Confidentiality of Alcohol and Drug Abuse Patient Records regulations: The Federal rules restrict any use of the information to criminally investigate or prosecute any alcohol or drug abuse patient.[facility] FoundationIn the event this information is protected by the Federal Confidentiality of Alcohol and Drug Abuse Patient Records regulations: The Federal rules restrict any use of the information to criminally investigate or prosecute any alcohol or drug abuse patient.[facility] FoundationIn the event this information is protected by the Federal Confidentiality of Alcohol and Drug Abuse Patient Records regulations: The Federal rules restrict any use of the information to criminally investigate or prosecute any alcohol or drug abuse patient.[facility] FoundationIn the event this information is protected by the Federal Confidentiality of Alcohol and Drug Abuse Patient Records regulations: The Federal rules restrict any use of the information to criminally investigate or prosecute any alcohol or drug abuse patient.[facility] FoundationIn the event this information is protected by the Federal Confidentiality of Alcohol and Drug Abuse Patient Records regulations: The Federal rules restrict any use of the information to criminally investigate or prosecute any alcohol or drug abuse patient.[facility] FoundationIn the event this information is protected by the Federal Confidentiality of Alcohol and Drug Abuse Patient Records regulations: The Federal rules restrict any use of the information to criminally investigate or prosecute any alcohol or drug abuse patient.[facility] FoundationIn the event this information is protected by the Federal Confidentiality of Alcohol and Drug Abuse Patient Records regulations: The Federal rules restrict any use of the information to criminally investigate or prosecute any alcohol or drug abuse patient.[facility] FoundationIn the event this information is protected by the Federal Confidentiality of Alcohol and Drug Abuse Patient Records regulations: The Federal rules restrict any use of the information to criminally investigate or prosecute any alcohol or drug abuse patient.[facility] FoundationIn the event this information is protected by the Federal Confidentiality of Alcohol and Drug Abuse Patient Records regulations: The Federal rules restrict any use of the information to criminally investigate or prosecute any alcohol or drug abuse patient.[facility] FoundationIn the event this information is protected by the Federal Confidentiality of Alcohol and Drug Abuse Patient Records regulations: The Federal rules restrict any use of the information to criminally investigate or prosecute any alcohol or drug abuse patient.[facility] FoundationIn the event this information is protected by the Federal Confidentiality of Alcohol and Drug Abuse Patient Records regulations: The Federal rules restrict any use of the information to criminally investigate or prosecute any alcohol or drug abuse patient.[facility] FoundationIn the event this information is protected by the Federal Confidentiality of Alcohol and Drug Abuse Patient Records regulations: The Federal rules restrict any use of the information to criminally investigate or prosecute any alcohol or drug abuse patient.[facility] FoundationIn the event this information is protected by the Federal Confidentiality of Alcohol and Drug Abuse Patient Records regulations: The Federal rules restrict any use of the information to criminally investigate or prosecute any alcohol or drug abuse patient.[facility] FoundationIn the event this information is protected by the Federal Confidentiality of Alcohol and Drug Abuse Patient Records regulations: The Federal rules restrict any use of the information to criminally investigate or prosecute any alcohol or drug abuse patient.[facility] FoundationIn the event this information is protected by the Federal Confidentiality of Alcohol and Drug Abuse Patient Records regulations: The Federal rules restrict any use of the information to criminally investigate or prosecute any alcohol or drug abuse patient.[facility] FoundationIn the event this information is protected by the Federal Confidentiality of Alcohol and Drug Abuse Patient Records regulations: The Federal rules restrict any use of the information to criminally investigate or prosecute any alcohol or drug abuse patient.[facility] FoundationIn the event this information is protected by the Federal Confidentiality of Alcohol and Drug Abuse Patient Records regulations: The Federal rules restrict any use of the information to criminally investigate or prosecute any alcohol or drug abuse patient.[facility] FoundationIn the event this information is protected by the Federal Confidentiality of Alcohol and Drug Abuse Patient Records regulations: The Federal rules restrict any use of the information to criminally investigate or prosecute any alcohol or drug abuse patient.[facility] FoundationIn the event this information is protected by the Federal Confidentiality of Alcohol and Drug Abuse Patient Records regulations: The Federal rules restrict any use of the information to criminally investigate or prosecute any alcohol or drug abuse patient.[facility] FoundationIn the event this information is protected by the Federal Confidentiality of Alcohol and Drug Abuse Patient Records regulations: The Federal rules restrict any use of the information to criminally investigate or prosecute any alcohol or drug abuse patient.[facility] FoundationIn the event this information is protected by the Federal Confidentiality of Alcohol and Drug Abuse Patient Records regulations: The Federal rules restrict any use of the information to criminally investigate or prosecute any alcohol or drug abuse patient.[facility] FoundationIn the event this information is protected by the Federal Confidentiality of Alcohol and Drug Abuse Patient Records regulations: The Federal rules restrict any use of the information to criminally investigate or prosecute any alcohol or drug abuse patient.[facility] FoundationIn the event this information is protected by the Federal Confidentiality of Alcohol and Drug Abuse Patient Records regulations: The Federal rules restrict any use of the information to criminally investigate or prosecute any alcohol or drug abuse patient.[facility] FoundationIn the event this information is protected by the Federal Confidentiality of Alcohol and Drug Abuse Patient Records regulations: The Federal rules restrict any use of the information to criminally investigate or prosecute any alcohol or drug abuse patient.[facility] FoundationIn the event this information is protected by the Federal Confidentiality of Alcohol and Drug Abuse Patient Records regulations: The Federal rules restrict any use of the information to criminally investigate or prosecute any alcohol or drug abuse patient.[facility] FoundationIn the event this information is protected by the Federal Confidentiality of Alcohol and Drug Abuse Patient Records regulations: The Federal rules restrict any use of the information to criminally investigate or prosecute any alcohol or drug abuse patient.[facility] FoundationIn the event this information is protected by the Federal Confidentiality of Alcohol and Drug Abuse Patient Records regulations: The Federal rules restrict any use of the information to criminally investigate or prosecute any alcohol or drug abuse patient.[facility] FoundationIn the event this information is protected by the Federal Confidentiality of Alcohol and Drug Abuse Patient Records regulations: The Federal rules restrict any use of the information to criminally investigate or prosecute any alcohol or drug abuse patient.[facility] FoundationIn the event this information is protected by the Federal Confidentiality of Alcohol and Drug Abuse Patient Records regulations: The Federal rules restrict any use of the information to criminally investigate or prosecute any alcohol or drug abuse patient.[facility] FoundationIn the event this information is protected by the Federal Confidentiality of Alcohol and Drug Abuse Patient Records regulations: The Federal rules restrict any use of the information to criminally investigate or prosecute any alcohol or drug abuse patient.[facility] FoundationIn the event this information is protected by the Federal Confidentiality of Alcohol and Drug Abuse Patient Records regulations: The Federal rules restrict any use of the information to criminally investigate or prosecute any alcohol or drug abuse patient.[facility] FoundationIn the event this information is protected by the Federal Confidentiality of Alcohol and Drug Abuse Patient Records regulations: The Federal rules restrict any use of the information to criminally investigate or prosecute any alcohol or drug abuse patient.[facility] Reason for Visit (unrecogniz ed section and content) Reason Comments Blood Pressure Check Reason Comments New Rx Request Reason Comments Breathing Problem Reason Onset Date Comments Refill Request 10/15/2021 Reason Onset Date Comments Refill Request 11/13/2021 Reason Onset Date Comments Nurse Triage Call 12/17/2021 motion sickness Reason Onset Date Comments Population Health Navigation Outreach 01/01/2022 [facility] care gaps Reason Comments 6 Month Exam Reason Comments Critical Results Reason Comments Results Reason Comments Hospital F/U Reason Comments ER F/U SOB and bloating Reason Comments Question Reason Comments Acute Visit Ears plugged, green nasal mucous, productive cough; no fever; had covid in Sept Reason Comments Sinusitis Reason Comments Follow Up Bronchitis/pneumonia Reason Onset Date Comments Refill Request 04/04/2022 Reason Onset Date Comments Appointment 04/09/2022 instructions Reason Comments Edema Left leg Shortness of Breath Reason Comments Patient Question Reason Comments Hospital F/U Reason Comments Follow Up Reason Comments Appointment Stress Test instruct ions Reason Comments Spirometry Specialty Diagnoses / Procedures Referred By Contac t Referred To [facility] Diagnoses SOB (shortness of breath) Procedures SPIROMETRY WITH DILATOR IF OBSTRUCTED BRNCDILAT RSPSE SPMTRY PRE&POST-BRNCDILAT ADMChrissy Nieto MD [address] [place] [address] [facility] [address] [place] [id number] Referral ID Status Reason Start Date Expiration Date V isits Requested Visits Authorized [id number] Closed Auto-Generate d Referral 06/20/2022 04/26/2023 1 1 Reason Comments New Patient COPD Reason Comments Order Request Specialty Diagnoses / Procedures Referred By Contac t Referred To [facility] Diagnoses Chronic respiratory failure with hypoxia (HCC) Procedures OXIMETRY WITH AMBULATION NONINVASIVE EAR/PULSE OXIMETRY Barak Montaño MD [address] [place] [address] [facility] [address] [place] [address], [place] [address] Referral ID Status Reason Start Date Expiration Date V isits Requested Visits Authorized [id number] Closed Auto-Generate d Referral 06/25/2022 07/25/2023 1 1 Reason Comments Unable to afford oxygen and wants to RTW without restrictio Reason Onset Date Comments Refill Request 07/07/2022 Reason Comments Established Patient 2 month follow up [place] PD Reason Onset Date Comments [facility] Navigation Outreach 08/27/2022 [employer] care gap Reason Comments Patient Update Reason Comments Acute Visit swelling and seeping of bilat legs Reason Comments Follow Up Recheck legs Reason Onset Date Comments Refill Request 09/23/2022 Reason Comments Diarrhea Reason Comments Medication Request Reason Onset Date Comments Refill Request 11/06/2022 Reason Comments Insurance Authorization Reason Comments Refill Request Reason Onset Date Comments Refill Request 12/17/2022 Reason Comments Issue with Oxygen Approval Reason Onset Date Comments [facility] Navigation Outreach 01/05/2023 [employer] Care Gaps Reason Comments Radiology NM Reason Onset Date Comments [facility] Navigation Outreach 03/17/2023 [employer] Care Gaps Reason Onset Date Comments [facility] Outreach 03/31/2023 [employer] Care Gaps Reason Onset Date Comments Refill Request 06/03/2023 Reason Comments Acute Visit Dysuria and pelvic c ramping Specialty Diagnoses / Procedures Referred By Contac t Referred To Contact Property Management Bookkeeper / MANAGER MUTUAL FUND Diagnoses Chronic respiratory failure with hypoxia Possible Prolapse Procedures OFFICE/OUTPATIENT EST PT MAY NOT REQ PHYS/QHP EST WHI PATIENT Kurtis Agrawal MD [address] [place] [address] Kurtis Agrawal MD [address] [place] [address] Referral ID Status Reason Start Date Expiration Date Visits Requested Visits Authorized [id number] Authorized Patient Cleared - Admin/Chairm an/Director advise to proceed or did not respond 05/04/2023 04/26/2024 99 99 Reason Comments Vaginal Problem Specialty Diagnoses / Procedures Referred By Contac t Referred To Contact Property Management Bookkeeper / MANAGER MUTUAL FUND Diagnoses Chronic respiratory failure with hypoxia Possible Prolapse Procedures OFFICE/OUTPATIENT EST PT MAY NOT REQ PHYS/QHP EST WHI PATIENT Kurtis Agrawal MD [address] [place] [address] Kurtis Agrawal MD [address] [facility] [place] [place] [address] Reason Comments Appointment Results Reason Comments Abnormal Pap Reason Onset Date Comments Refill Request 08/31/2023 Reason Comments Radiology US Specialty Diagnoses / Procedures Referred By Contac t Referred To Contact US IMAGING Diagnoses Pelvic pain in female Procedures US FEMALE PELVIS TRANSVAG US TRANSVAGINAL Oziel Lang, MARILYN.VEHICLE AND EQUIPMENT CLEANER [address] [place] [address] [place] [address] Referral ID Status Reason Start Date Expiration Date V isits Requested Visits Authorized [id number] Closed Auto-Generate d Referral 08/13/2023 09/11/2024 1 1 Reason Comments Acute Visit R lower leg pain aft er hitting it on car door last week Reason Comments Colposcopy Specialty Diagnoses / Procedures [facility] To Contact [facility] Diagnoses ASCUS with positive high risk HPV cervical Procedures COLPOSCOPY COLPOSCOPY CERVIX BX CERVIX & ENDOCRV CURRETAGE Oziel Lang, IP ATTORNEY.VEHICLE AND EQUIPMENT CLEANER [address] [place] [address] [facility] [address] [place] [id number] Referral ID Status Reason Start Date Expiration Date V isits Requested Visits Authorized [id number] Closed Auto-Generate d Referral 08/27/2023 08/26/2024 1 1 Reason Comments requesting medications Reason Onset Date Comments Refill Request 11/04/2023 Reason Onset Date Comments Refill Request 11/18/2023 Reason Comments consult Reason Comments 6 Month Exam Reason Comments Medication Problem Reason Comments Results Reason Comments New Patient Reason Comments Procedure UDS/Cysto Specialty Diagnoses / Procedures Referred By Contac t Referred To Contact [facility] Diagnoses MORENO (stress urinary incontinence, female) Procedures URODYNAMICS WHI COMPLX CYSTOMETRO W/VOID PRESS&URETHRAL PROFILE [facility] MD [address] [place] [address] [facility] [address] [place] [address] Referral ID Status Reason Start Date Expiration Date V isits Requested Visits Authorized [id number] Closed Auto-Generate d Referral 12/03/2023 12/02/2024 1 1 Reason Comments Future Appointment Reason Comments Pre-Op Teaching Reason Comments Post Op RN Televisit post op Reason Comments Post hysterectomy symptoms Reason Comments Vaginal Problem Reason Onset Date Comments Refill Request 02/08/2024 Reason Onset Date Comments Refill Request 02/03/2024 Reason Onset Date Comments Population Health Navigation Outreach 03/07/2024 [employer],Work,Candy Reason Onset Date Comments Refill Request 04/14/2024 Reason Comments Pain (upper Arm) Arm Pain Reason Comments ER F/U [facility] ER 04/22 dx: R a rm cellulitis Reason Onset Date Comments Refill Request 05/02/2024 Reason Onset Date Comments Population Health Navigation Outreach 05/09/2024 [employer] Workbench - Candy PCSA Reason Comments Forms Reason Comments requesting medication Reason Comments Medicare Wellness Exam Reason Comments Arm Pain Reason Onset Date Comments Allied Health Visit 07/04/2024 Medication A dherence Outreach Reason Comments Diabetic Foot Care Specialty Diagnoses / Procedures Referred By Aly kerns Referred To Contact Podiatry / PODIATRY Diagnoses dm foot care Procedures OFFICE/OUTPATIENT NEW HIGH MDM 60 MINUTES DEXTER NEW PODI NAIL CONCERN DIAB Self TestRachel rollins [address] [place] [address] Phone: tel: fax: Referral ID Status Reason Start Date Expiration Date V isits Requested Visits Authorized [id number] Authorized 07/20/2024 04/26/2025 99 99 Reason Onset Date Comments Allied Health Visit 08/05/2024 Medication A dherence Outreach Reason Onset Date Comments Allied Health Visit 09/21/2024 Medication A dherence Outreach Reason Comments Cough Productive cough for 2 weeks Wheezing Reason Onset Date Comments Refill Request 09/27/2024 Reason Comments Pneumonia Follow up Reason Comments Results Elevated d dimer Reason Comments Transition Of Care Relate care discharg e follow up-TCM-no contact-left vm Reason Comments Transition Of Care Reason Onset Date Comments Refill Request 01/05/2025 Please see Rx no janiya Reason Comments diabetic supplies Reason Comments Hospital F/U [facility] D/[facility] 12/21/24 Ac sun'aq hypoxic respiratory failure Care Teams (unrecognized sec tion and content) Atomizer Assembler Relationship Specialty Start Date End Date Barak Tiwari MD [address] [facility] [place] [address] PCP - General Family Practice 06/25/15 Atomizer Assembler Relationship Specialty Start Date End Date Barak Tiwari MD [address] [place] [address] PCP - General Family Practice 06/25/15 Atomizer Assembler Relationship Specialty Start Date End Date Barak Tiwari MD [address] [place] [address] PCP - General Family Practice 06/25/15 Atomizer Assembler Relationship Specialty Start Date End Date Barak Tiwari MD [address] [place] [address] PCP - General Family Practice 06/25/15 Atomizer Assembler Relationship Specialty Start Date End Date Barak Tiwari MD [address] [place] [address] PCP - General Family Practice 06/25/15 Atomizer Assembler Relationship Specialty Start Date End Date Barak Tiwari MD [address] [place] [address] [place] [address] PCP - General Family Practice 06/25/15 Atomizer Assembler Relationship Specialty Start Date End Date Barak Tiwari MD [address] [place] [address] PCP - General Family Practice 06/25/15 Atomizer Assembler Relationship Specialty Start Date End Date Barak Tiwari MD [address] [place] [address] PCP - General Family Practice 06/25/15 Atomizer Assembler Relationship Specialty Start Date End Date Barak Tiwari MD [address] [facility] [place] [address] PCP - General Family Medicine 06/25/15 Atomizer Assembler Relationship Specialty Start Date End Date Barak Tiwari MD [address] [facility] [place] [address] PCP - General Family Medicine 06/25/15 Atomizer Assembler Relationship Specialty Start Date End Date Barak Tiwari MD [address] [facility] [place] [address] PCP - General Family Medicine 06/25/15 Atomizer Assembler Relationship Specialty Start Date End Date Barak Tiwari MD [address] [facility] [place] [address] PCP - General Family Medicine 06/25/15 Atomizer Assembler Relationship Specialty Start Date End Date Barak Tiwari MD [address] [facility] [place] [address] PCP - General Family Medicine 06/25/15 Atomizer Assembler Relationship Specialty Start Date End Date aBrak Tiwari MD [address] [facility] [place] [address] PCP - General Family Medicine 06/25/15 Atomizer Assembler Relationship Specialty Start Date End Date Barak Tiwari MD [address] [facility] [place] [address] PCP - General Family Medicine 06/25/15 Atomizer Assembler Relationship Specialty Start Date End Date Barak Tiwari MD [address] [facility] [place] [address] PCP - General Family Medicine 06/25/15 Atomizer Assembler Relationship Specialty Start Date End Date Barak Tiwari MD [address] [facility] [place] [address] PCP - General Family Medicine 06/25/15 Atomizer Assembler Relationship Specialty Start Date End Date Barak Tiwari MD [address] [facility] [place] [address] PCP - General Family Medicine 06/25/15 Atomizer Assembler Relationship Specialty Start Date End Date Barak Tiwari MD [address] [facility] [place] [address] PCP - General Family Medicine 06/25/15 Atomizer Assembler Relationship Specialty Start Date End Date Barak Tiwari MD [address] [facility] [place] [address] PCP - General Family Medicine 06/25/15 Atomizer Assembler Relationship Specialty Start Date End Date Barak Tiwari MD [address] [facility] [place] [address] PCP - General Family Medicine 06/25/15 Team Status: Active Member Role Status Dates Dr. Barak Tiwari MD Family Provider Active Dr. Barak Tiwari MD Primary Care Provider Active Team Status: Inactive Member Role Status Dates Dr. Barak Tiwari MD Primary Care Provider Active Nick Gómez MD Attending Provider, Emergency Provid er Active Team Status: Inactive Member Role Status Dates Dr. Barak Tiwari MD Primary Care Provider Active Dr. Gio Leyva DO Attending Provider, Emergency Provide r Active Team Status: Active Member Role Status Dates Dr. Barak Tiwari MD Primary Care Provider Active Dr. Gio Leyva DO Emergency Provider Active Dr. Mukesh Ye DO Admit Provider, Attending Pro vider Active Team Status: Active Member Role Status Dates Dr. Barak Tiwari MD Primary Care Provider Active Dr. Gio Leyva DO Emergency Provider Active Dr. Mukesh Ye DO Admit Provider, Attending Provider, Other Provider Active Team Status: Active Member Role Status Dates Dr. Barak Tiwari MD Primary Care Provider Active Dr. Gio Leyva DO Emergency Provider Active Dr. Mukesh Ye DO Admit Provider, Other Provide r Active Dr. Jesús De La Fuente , DO Attending Provider Active Team Status: Active Member Role Status Dates Dr. Barak Tiwari MD Primary Care Provider Active Dr. Jesús De La Fuente , DO Attending Provider Active Team Status: Active Member Role Status Dates Dr. Barak Tiwari MD Primary Care Provider Active Dr. Gio Leyva DO Emergency Provider Active Dr. Mukesh Ye , DO Admit Provider, Other Provide r Active Dr. Sasha Horne MD Other Provider Active Dr. Jesús De La Fuente , Attending Provider Active Team Status: Inactive Member Role Status Dates Dr. Barak Tiwari MD Primary Care Provider Active Dr. Gio Leyva , DO Emergency Provider Active Dr. Mukesh Ye , DO Admit Provider, Other Provide r Active Dr. Sasha Horne MD Attending Provider Active Atomizer Assembler Relationship Specialty Start Date End Date Barak Tiwari MD [address] [facility] [place] [address] PCP - General Family Medicine 06/25/15 Atomizer Assembler Relationship Specialty Start Date End Date Barak Tiwari MD [address] [facility] [place] [address] PCP - General Family Medicine 06/25/15 Atomizer Assembler Relationship Specialty Start Date End Date Barak Tiwari MD [address] [facility] [place] [address] PCP - General Family Medicine 06/25/15 Atomizer Assembler Relationship Specialty Start Date End Date Barak Tiwari MD [address] [facility] [place] [address] PCP - General Family Medicine 06/25/15 Atomizer Assembler Relationship Specialty Start Date End Date Barak Tiwari MD [address] [facility] [place] [address] PCP - General Family Medicine 06/25/15 Atomizer Assembler Relationship Specialty Start Date End Date Barak Tiwari MD [address] [facility] [place] [address] PCP - General Family Medicine 06/25/15 Atomizer Assembler Relationship Specialty Start Date End Date Barak Tiwari MD [address] [facility] [place] [address] PCP - General Family [facility] 06/25/15 Team Status: Active Member Role Status Dates Dr. Barak Tiwari MD Primary Care Provider Active Dr. Gio Leyva DO Emergency Provider Active Dr. Mukesh Ye DO Admit Provider, Other Provide r Active Dr. Jesús De La Fuente DO Attending Provider Active Dr. Sasha Horne MD Referring Provider Active Team Status: Active Member Role Status Dates Dr. Barak Tiwari MD Primary Care Provider Active Dr. Jesús De La Fuente , Attending Provider Active Dr. Sasha Horne MD Referring Provider Active Team Status: Inactive Member Role Status Dates Dr. Barak Tiwari MD Primary Care Provider, Referring Provider Active Dr. Esa Garcia MD Attending Provider Active Team Status: Active Member Role Status Dates Dr. Barak Tiwari MD Primary Care Provider Active Dr. Gio Leyva DO Emergency Provider Active Dr. Mukesh Ye DO Admit Provider, Other Provide r Active Dr. Sasha Horne MD Referring Provider, Other Provider Active Dr. Jesús De La Fuente DO Attending Provider Active Team Status: Active Member Role Status Dates Dr. Barak Tiwari MD Primary Care Provider Active Dr. Gio Leyva DO Emergency Provider Active Dr. Mukesh Ye , Admit Provider, Other Provide r Active Dr. Sasha Horne MD Attending Provider, Other Provider Active Team Status: Active Member Role Status Dates Dr. Barak Tiwari MD Primary Care Provider Active Dr. Ken De La Paz MD Attending Provider Active Dr. Esa Dietz MD Referring Provider Active Team Status: Inactive Member Role Status Dates Dr. Barak Tiwari MD Primary Care Provider, Referring Provider Active Dr. Felicitas Elizondo MD Attending Provider Active Team Status: Inactive Member Role Status Dates Dr. Barak Tiwari MD Primary Care Provider Active Dr. Felicitas Elizondo MD Attending Provider Active Atomizer Assembler Relationship Specialty Start Date End Date Barak Tiwari MD [address] [place], [place] [address] PCP - [facility] 06/25/15 Atomizer Assembler Relationship Specialty Start Date End Date Barak Tiwari MD [address] [place], [place] [address] PCP - General Family Medicine 06/25/15 [place] [address] [place] [address] 08/27/22 Atomizer Assembler Relationship Specialty Start Date End Date Barak Tiwari MD [address] [facility] [place] [address] PCP - General Family Medicine 06/25/15 [place] [address] [place] [address] 08/27/22 Atomizer Assembler Relationship Specialty Start Date End Date Barak Tiwari MD [address] [facility] [place] [address] PCP - General Family [facility] 06/25/15 [place] [address] [place] [address] 08/27/22 Atomizer Assembler Relationship Specialty Start Date End Date Barak Tiwari MD [address] [facility] [place] [address] PCP - General Family [facility] 06/25/15 [place] [address] [place] [address] 08/27/22 Team Status: Active Member Role Status Dates Dr. Barak Tiwari MD Primary Care Provider Active Dr. Felicitas Elizondo MD Attending Provider Active Team Status: Active Member Role Status Dates Dr. Barak Tiwari MD Primary Care Provider Active aTnya Linton Attending Provider Active Team Status: Inactive Member Role Status Dates Dr. Barak Tiwari MD Primary Care Provider Active Dr. Felicitas Elizondo MD Attending Provider, Referring Pr ovider Active Atomizer Assembler Relationship Specialty Start Date End Date Barak Tiwari MD [address] [facility] [place] [address] PCP - General Family Medicine 06/25/15 [place] [address] [place] [address] 08/27/22 Atomizer Assembler Relationship Specialty Start Date End Date Barak Tiwari MD [address] [facility] [place] [address] PCP - General Family Medicine 06/25/15 [place] [address] [facility] [place] [address] 08/27/22 Atomizer Assembler Relationship Specialty Start Date End Date Barak Tiwari MD [address] [facility] [place] [address] PCP - General Family Medicine 06/25/15 [place] [address] [facility] [place] [address] 08/27/22 Atomizer Assembler Relationship Specialty Start Date End Date Barak Tiwari MD [address] [facility] [place] [place] [address] PCP - General Family Medicine 06/25/15 [place] [address] [facility] [place] [address] 08/27/22 Atomizer Assembler Relationship Specialty Start Date End Date Barak Tiwari MD [address] [facility] [place] [address] PCP - General Family Medicine 06/25/15 [place] [address] [facility] [place] [address] 08/27/22 Atomizer Assembler Relationship Specialty Start Date End Date Barak Tiwari MD [address] [facility] [place] [address] PCP - General Family Medicine 06/25/15 [place] [address] [facility] [place] [address] 08/27/22 Atomizer Assembler Relationship Specialty Start Date End Date Barak Tiwari MD [address] [facility] [place] [address] PCP - General Family Medicine 06/25/15 [place] [address] [facility] [place] [address] 08/27/22 Team Status: Active Member Role Status Dates Dr. Barak Tiwari MD Primary Care Provider, Referring Provider Active NORIS Desir Attending Provider, Other Prov ider Active Team Status: Inactive Member Role Status Dates Dr. Barak Tiwari MD Primary Care Provider, Referring Provider Active NORIS Dseir Attending Provider Active Atomizer Assembler Relationship Specialty Start Date End Date Barak Tiwari MD [address] [facility] [place] [address] PCP - General Family Medicine 06/25/15 [place] [address] [place] [address] 08/27/22 Atomizer Assembler Relationship Specialty Start Date End Date Barak Tiwari MD [address] [facility] [place] [address] PCP - General Family Medicine 06/25/15 [place] [address] [place] [address] 08/27/22 Atomizer Assembler Relationship Specialty Start Date End Date Barak Tiwari MD [address] [facility] [place] [address] PCP - General Family [facility] 06/25/15 [place] [address] [place] [address] 08/27/22 Atomizer Assembler Relationship Specialty Start Date End Date Barak Tiwari MD [address] [facility] [place] [address] PCP - General Family Medicine 06/25/15 [place] [address] [place] [address] 08/27/22 Atomizer Assembler Relationship Specialty Start Date End Date Barak Tiwari MD [address] [facility] [place] [address] PCP - General Family Medicine 06/25/15 [place] [address] [place] [address] 08/27/22 Atomizer Assembler Relationship Specialty Start Date End Date Barak Tiwari MD [address] [facility] [place] [address] PCP - General Family Medicine 06/25/15 [place] [address] [place] [address] 08/27/22 Atomizer Assembler Relationship Specialty Start Date End Date Barak Tiwari MD [address] [facility] [place] [address] PCP - General Family Medicine 06/25/15 Atomizer Assembler Relationship Specialty Start Date End Date Barak Tiwari MD [address] [facility] [place] [address] PCP - General Family Medicine 06/25/15 [place] [address] [place] [address] 08/27/22 Atomizer Assembler Relationship Specialty Start Date End Date Barak Tiwari MD [address] [facility] [place] [address] PCP - General Family Medicine 06/25/15 [place] [address] [place] [address] 08/27/22 Atomizer Assembler Relationship Specialty Start Date End Date Barak Tiwari MD [address] [facility] [place] [address] PCP - General Family Medicine 06/25/15 [place] [address] [place] [address] 08/27/22 Atomizer Assembler Relationship Specialty Start Date End Date Barak Tiwari MD [address] [facility] [place] [address] PCP - General Family Medicine 06/25/15 [place] [address] [facility] [place] [address] 08/27/22 Atomizer Assembler Relationship Specialty Start Date End Date Barak Tiwari MD [address] [facility] [place] [address] PCP - General Family Medicine 06/25/15 [place] [address] [place] [address] 08/27/22 Atomizer Assembler Relationship Specialty Start Date End Date Barak Tiwari MD [address] [facility] [place] [address] PCP - General Family Medicine 06/25/15 [place] [address] [place] [address] 08/27/22 Atomizer Assembler Relationship Specialty Start Date End Date Barak Tiwari MD [address] [facility] [place] [address] PCP - General Family Medicine 06/25/15 [place] [address] [place] [address] 08/27/22 Atomizer Assembler Relationship Specialty Start Date End Date Barak Tiwari MD [address] [facility] [place] [address] PCP - General Family Medicine 06/25/15 [place] [address] [place] [address] 08/27/22 Atomizer Assembler Relationship Specialty Start Date End Date Barak Tiwari MD [address] [facility] [place] [address] PCP - General Family Medicine 06/25/15 [place] [address] [facility] [place] [address] 08/27/22 Atomizer Assembler Relationship Specialty Start Date End Date Barak Tiwari MD [address] [facility] [place] [address] PCP - General Family Medicine 06/25/15 [place] [address] [place] [address] 08/27/22 Atomizer Assembler Relationship Specialty Start Date End Date Barak Tiwari MD [address] [facility] [place] [address] PCP - General Family Medicine 06/25/15 [place] [address] [place] [address] 08/27/22 Atomizer Assembler Relationship Specialty Start Date End Date Barak Tiwari MD [address] [facility] [place] [address] PCP - General Family Medicine 06/25/15 [place] [address] [place] [address] 08/27/22 Atomizer Assembler Relationship Specialty Start Date End Date Barak Tiwari MD [address] [facility] [place] [address] PCP - General Family Medicine 06/25/15 [place] [address] [place] [address] 08/27/22 Atomizer Assembler Relationship Specialty Start Date End Date Barak Tiwari MD [address] [facility] [place] [address] PCP - General Family Medicine 06/25/15 [place] [address] [place] [address] 08/27/22 Atomizer Assembler Relationship Specialty Start Date End Date Barak Tiwari MD [address] [facility] [place] [address] PCP - General Family Medicine 06/25/15 [place] [address] [place] [address] 08/27/22 Atomizer Assembler Relationship Specialty Start Date End Date Barak Tiwari MD [address] [facility] [place] [address] PCP - General Family Medicine 06/25/15 [place] [address] [place] [address] 08/27/22 Atomizer Assembler Relationship Specialty Start Date End Date Barak Tiwari MD [address] [facility] [place] [address] PCP - General Family Medicine 06/25/15 [place] [address] [place] [address] 08/27/22 Atomizer Assembler Relationship Specialty Start Date End Date Barak Tiwari MD [address] [facility] [place] [address] PCP - General Family Medicine 06/25/15 [place] [address] [place] [address] 08/27/22 Atomizer Assembler Relationship Specialty Start Date End Date Barak Tiwari MD [address] [facility] [place] [address] PCP - General Family Medicine 06/25/15 [place] [address] [place] [address] 08/27/22 Atomizer Assembler Relationship Specialty Start Date End Date Barak Tiwari MD [address] [facility] [place] [address] PCP - General Family Medicine 06/25/15 [place] [address] [place] [address] 08/27/22 Atomizer Assembler Relationship Specialty Start Date End Date Barak Tiwari MD [address] [facility] [place] [address] PCP - General Family Medicine 06/25/15 Atomizer Assembler Relationship Specialty Start Date End Date Barak Tiwari MD [address] [facility] [place] [address] PCP - General Family Medicine 06/25/15 [place] [address] [place] [address] 08/27/22 Atomizer Assembler Relationship Specialty Start Date End Date Barak Tiwari MD [address] [facility] [place] [address] PCP - General Family Medicine 06/25/15 Atomizer Assembler Relationship Specialty Start Date End Date Barak Tiwari MD [address] [facility] [place] [address] PCP - General Family Medicine 06/25/15 [facility] [address] [place] [address] 08/27/22 Atomizer Assembler Relationship Specialty Start Date End Date Barak Tiwari MD [address] [facility] [place] [address] PCP - General Family Medicine 06/25/15 [facility] [address] [facility] [place] [address] 08/27/22 Atomizer Assembler Relationship Specialty Start Date End Date Barak Tiwari MD [address] [facility] [place] [address] PCP - General Family Medicine 06/25/15 [place] [address] [place] [address] 08/27/22 Atomizer Assembler Relationship Specialty Start Date End Date Barak Tiwari MD [address] [facility] [place] [address] PCP - General Family Medicine 06/25/15 [place] [address] [place] [address] 08/27/22 Atomizer Assembler Relationship Specialty Start Date End Date Barak Tiwari MD [address] [facility] [place] [address] PCP - General Family Medicine 06/25/15 [place] [address] [place] [address] 08/27/22 Atomizer Assembler Relationship Specialty Start Date End Date Barak Tiwari MD [address] [facility] [place] [address] PCP - General Family Medicine 06/25/15 [place] [address] [place] [address] 08/27/22 Atomizer Assembler Relationship Specialty Start Date End Date Barak Tiwari MD [address] [facility] [place] [address] PCP - General Family Medicine 06/25/15 [place] [address] [place] [address] 08/27/22 July Cedillo APRN.VEHICLE AND EQUIPMENT CLEANER [address] [facility] [place] [address] Stock Control Clerk Family [facility] 04/04/24 Mariana Encarnacion APRN.VEHICLE AND EQUIPMENT CLEANER [address] [facility] [place] [address] [facility] 04/04/24 Atomizer Assembler Relationship Specialty Start Date End Date Barak Tiwari MD [address] [facility] [place] [address] PCP - General Family Medicine 06/25/15 [place] [address] [place] [address] 08/27/22 July Cedillo APRN.VEHICLE AND EQUIPMENT CLEANER [address] [facility] [place] [address] Stock Control Clerk Family [facility] 04/04/24 Mariana Encarnacion APRN.VEHICLE AND EQUIPMENT CLEANER [address] [facility] [place] [address] [facility] 04/04/24 Atomizer Assembler Relationship Specialty Start Date End Date Barak Tiwari MD [address] [facility] [place] [address] PCP - General Family Medicine 06/25/15 [place] [address] [place] [address] 08/27/22 July Cedillo APRN.VEHICLE AND EQUIPMENT CLEANER [address] [facility] [place] [address] [facility] Family [facility] 04/04/24 Mariana Encarnacion APRN.VEHICLE AND EQUIPMENT CLEANER [address] [facility] [place] [address] Stock Control Clerk Family Medicine 04/04/24 Atomizer Assembler Relationship Specialty Start Date End Date Barak Tiwari MD [address] [facility] [place] [address] PCP - General Family Medicine 06/25/15 [place] [address] [place] [address] 08/27/22 July Cedillo IP ATTORNEY.VEHICLE AND EQUIPMENT CLEANER [address] [facility] [place] [address] Stock Control Clerk Family Medicine 04/04/24 Mariana Encarnacion IP ATTORNEY.VEHICLE AND EQUIPMENT CLEANER [address] [place] [address] Stock Control Clerk Family Medicine 04/04/24 Atomizer Assembler Relationship Specialty Start Date End Date Barak Tiwari MD [address] [place] [address] PCP - General Family Medicine 06/25/15 [place] [address] [place] [address] 08/27/22 July Cedillo APRN.VEHICLE AND EQUIPMENT CLEANER [address] [facility] [place] [address] Stock Control Clerk Family Medicine 04/04/24 Mariana Encarnacion IP ATTORNEY.VEHICLE AND EQUIPMENT CLEANER [address] [facility] [place] [address] Stock Control Clerk Family Medicine 04/04/24 Atomizer Assembler Relationship Specialty Start Date End Date Barak Tiwari MD [address] [facility] [place] [address] PCP - General Family Medicine 06/25/15 [place] [address] [place] [address] 08/27/22 July Cedillo APRN.VEHICLE AND EQUIPMENT CLEANER [address] [facility] [place] [address] Stock Control Clerk Family Medicine 04/04/24 Mariana Encarnacion APRN.VEHICLE AND EQUIPMENT CLEANER [address] [facility] [place] [address] Stock Control Clerk Family Medicine 04/04/24 Atomizer Assembler Relationship Specialty Start Date End Date Barak Tiwari MD [address] [facility] [place] [address] PCP - General Family Medicine 06/25/15 [place] [address] [place] [address] 08/27/22 July Cedillo APRN.VEHICLE AND EQUIPMENT CLEANER [address] [facility] [place] [place] [address] Stock Control Clerk Family Medicine 04/04/24 Mariana Encarnacion APRN.VEHICLE AND EQUIPMENT CLEANER [address] [facility] [place] [address] Stock Control Clerk Family Medicine 04/04/24 Atomizer Assembler Relationship Specialty Start Date End Date Barak Tiwari MD [address] [facility] [place] [address] PCP - General Family Medicine 06/25/15 [place] [address] [place] [address] 08/27/22 July Cedillo APRN.VEHICLE AND EQUIPMENT CLEANER [address] [facility] [place] [address] Stock Control Clerk Family Medicine 04/04/24 Mariana Encarnacion APRN.VEHICLE AND EQUIPMENT CLEANER [address] [facility] [place] [address] Stock Control Clerk Family [facility] 04/04/24 Atomizer Assembler Relationship Specialty Start Date End Date Barak Tiwari MD [address] [facility] [place] [address] PCP - General Family Medicine 06/25/15 [place] [address] [place] [address] 08/27/22 July Cedillo APRN.VEHICLE AND EQUIPMENT CLEANER [address] [facility] [place] [address] Stock Control Clerk Family [facility] 04/04/24 Mariana Encarnacion APRN.VEHICLE AND EQUIPMENT CLEANER [address] [facility] [place] [address] [facility] 04/04/24 Atomizer Assembler Relationship Specialty Start Date End Date Barak Tiwari MD [address] [facility] [place] [address] PCP - General Family Medicine 06/25/15 [place] [address] [place] [address] 08/27/22 July Cedillo APRN.VEHICLE AND EQUIPMENT CLEANER [address] [facility] [place] [address] Stock Control Clerk Family Medicine 04/04/24 Mariana Encarnacion APRN.VEHICLE AND EQUIPMENT CLEANER [address] [facility] [place] [address] Stock Control Clerk Family Medicine 04/04/24 Atomizer Assembler Relationship Specialty Start Date End Date Barak Tiwari MD [address] [facility] [place] [address] PCP - General Family Medicine 06/25/15 [place] [address] [place] [address] 08/27/22 July Cedillo, IP ATTORNEY.VEHICLE AND EQUIPMENT CLEANER [address] [place] [address] Stock Control Clerk Family Medicine 04/04/24 Mariana Encarnacion IP ATTORNEY.VEHICLE AND EQUIPMENT CLEANER [address] [place] [address] Stock Control Clerk Family Medicine 04/04/24 Atomizer Assembler Relationship Specialty Start Date End Date Barak Tiwari MD [address] [place] [address] PCP - General Family Medicine 06/25/15 [place] [address] [place] [address] 08/27/22 July Cedillo IP ATTORNEY.VEHICLE AND EQUIPMENT CLEANER [address] [facility] [place] [address] Stock Control Clerk Family Medicine 04/04/24 Mariana Encarnacion IP ATTORNEY.VEHICLE AND EQUIPMENT CLEANER [address] [facility] [place] [address] Stock Control Clerk Family Medicine 04/04/24 Atomizer Assembler Relationship Specialty Start Date End Date Barak Tiwari MD [address] [place] [address] PCP - General Family Medicine 06/25/15 [place] [address] [place] [address] 08/27/22 July Cedillo APRN.VEHICLE AND EQUIPMENT CLEANER [address] [facility] [place] [address] Stock Control Clerk Family Medicine 04/04/24 Mariana Encarnacion APRN.VEHICLE AND EQUIPMENT CLEANER [address] [facility] [place] [address] Stock Control Clerk Family Medicine 04/04/24 Atomizer Assembler Relationship Specialty Start Date End Date Barak Tiwari MD [address] [facility] [place] [address] PCP - General Family Medicine 06/25/15 [facility] Eye [address] [place] [address] 08/27/22 July Cedillo APRN.VEHICLE AND EQUIPMENT CLEANER [address] [facility] [place] [address] Stock Control Clerk Family [facility] 04/04/24 Mariana Encarnacion IP ATTORNEY.VEHICLE AND EQUIPMENT CLEANER [address] [facility] [place] [address] [facility] 04/04/24 Atomizer Assembler Relationship Specialty Start Date End Date Barak Tiwari MD [address] [facility] [place] [address] PCP - General Family Medicine 06/25/15 [place] [address] [place] [address] 08/27/22 July Cedillo APRN.VEHICLE AND EQUIPMENT CLEANER [address] [facility] [place] [address] Stock Control Clerk Family Medicine 04/04/24 Mariana Encarnacion APRN.VEHICLE AND EQUIPMENT CLEANER [address] [facility] [place] [address] Stock Control Clerk Family Medicine 04/04/24 Atomizer Assembler Relationship Specialty Start Date End Date Barak Tiwari MD [address] [facility] [place] [address] PCP - General Family Medicine 06/25/15 [place] [address] [place] [address] 08/27/22 July Cedillo APRN.VEHICLE AND EQUIPMENT CLEANER [address] [place] [address] Stock Control Clerk Family [facility] 04/04/24 Mariana Encarnacion APRN.VEHICLE AND EQUIPMENT CLEANER [address] [facility] [place] [address] [facility] 04/04/24 Atomizer Assembler Relationship Specialty Start Date End Date Barak Tiwari MD [address] [facility] [place] [address] PCP - General Family Medicine 06/25/15 [place] [address] [place] [address] 08/27/22 July Cedillo APRN.VEHICLE AND EQUIPMENT CLEANER [address] [facility] [place] [address] Stock Control Clerk Family Medicine 04/04/24 Mariana Encarnacion APRN.VEHICLE AND EQUIPMENT CLEANER [address] [facility] [place] [address] Stock Control Clerk Family Medicine 04/04/24 Atomizer Assembler Relationship Specialty Start Date End Date Barak Tiwari MD [address] [place] [address] PCP - General Family Medicine 06/25/15 [place] [address] [place] [address] 08/27/22 July Cedillo, IP ATTORNEY.VEHICLE AND EQUIPMENT CLEANER [address] [place] [address] Stock Control Clerk Family Medicine 04/04/24 Mariana Encarnacion IP ATTORNEY.VEHICLE AND EQUIPMENT CLEANER [address] [place] [address] Stock Control Clerk Family Medicine 04/04/24 Soy Acevedo MD Primary Care Hand Washer 12/21/24 12/21/24 Soy Acevedo MD Stock Control Clerk 12/21/24 01/03/25 Atomizer Assembler Relationship Specialty Start Date End Date Barak Tiwari MD [address] [place] [address] PCP - General Family [facility] 06/25/15 [place] [address] [place] [address] 08/27/22 July Cedillo, IP ATTORNEY.VEHICLE AND EQUIPMENT CLEANER [address] [place] [address] Stock Control Clerk Family Medicine 04/04/24 Mariana Encarnacion IP ATTORNEY.VEHICLE AND EQUIPMENT CLEANER [address] [place] [address] Stock Control Clerk Family Medicine 04/04/24 Soy Acevedo MD Stock Control Clerk 12/21/24 01/03/25 Atomizer Assembler Relationship Specialty Start Date End Date Barak Tiwari MD [address] [facility] [place] [address] PCP - General Family Medicine 06/25/15 [place] [address] [facility] [place] [address] 08/27/22 July Cedillo, IP ATTORNEY.VEHICLE AND EQUIPMENT CLEANER [address] [facility] [place] [place] [address] Stock Control Clerk Family Medicine 04/04/24 Mariana Encarnacion IP ATTORNEY.VEHICLE AND EQUIPMENT CLEANER [address] [facility] [place] [address] Stock Control Clerk Family Medicine 04/04/24 Atomizer Assembler Relationship Specialty Start Date End Date Barak Tiwari MD [address] [facility] [place] [address] PCP - General Family Medicine 06/25/15 [place] [address] [facility] [place] [address] 08/27/22 July Cedillo, IP ATTORNEY.VEHICLE AND EQUIPMENT CLEANER [address] [facility] [place] [place] [address] Stock Control Clerk Family Medicine 04/04/24 Mariana Encarnacion IP ATTORNEY.VEHICLE AND EQUIPMENT CLEANER [address] [facility] [place] [address] Stock Control Clerk Family Medicine 04/04/24 Atomizer Assembler Relationship Specialty Start Date End Date Barak Tiwari MD [address] [facility] [place] [address] PCP - General Family Medicine 06/25/15 [place] [address] [place] [address] 08/27/22 July Cedillo APRN.VEHICLE AND EQUIPMENT CLEANER [address] [facility], [place] [address] [facility] 04/04/24 Mariana Encarnacion APRN.VEHICLE AND EQUIPMENT CLEANER [address] [facility] [place], [place] [address] [facility] 04/04/24 Atomizer Assembler Relationship Specialty Start Date End Date Barak Tiwari MD [address] [place], [place] [address] PCP - General Family Medicine 06/25/15 [place] [address] [place] [address] 08/27/22 July Cedillo APRN.VEHICLE AND EQUIPMENT CLEANER [address] [facility], [place] [address] [facility] 04/04/24 Mariana Encarnacion APRN.VEHICLE AND EQUIPMENT CLEANER [address] [facility] [place], [place] [address] [facility] 04/04/24 Goals (unrecognized section and content) Goals may be documented in a n alternate sectionGoals may be documented in an alternate sectionGoals may be documented in an alternate sectionGoals may be documented in an alternate section FOR RECORDS PERTAINING TO PATIENTS WHO ARE OR HAVE BEEN ENROLLED IN A CHEMICAL DEPENDENCY/SUBSTANCEABUSE PROGRAM, SOME INFORMATION MAY BE OMITTED. This clinical summary was aggregated from multiple sources. Caution should be exercised in using it in the provision of clinical care. This summary normalizes information from multiple sources, and as a consequence, information in this document may materially change the coding, format and clinical context of patient data. In addition, data may be omitted in some cases. CLINICAL DECISIONS SHOULD BE BASED ON THE PRIMARY CLINICAL RECORDS. [facility] [employer] [facility]. provides no warranty or guarantee of the accuracy or completeness of information in this document.
[2025-04-04 07:04] LABS: Anion Gap 16 (5-15); BUN 21 mg/dL (4-19); BUN/Creat Ratio 19.8 RATIO (10-20); Calcium,Total 9.3 mg/dL (7.6-11.0); Carbon Dioxide 18.7 mmol/L (21.0-32.0); Chloride 100 mmol/L (98-108); Estimated Creatinine Clearance 70.38 ml/min (50-250); Glucose 254 mg/dL (70-99); Magnesium 1.5 mg/dL (1.5-2.2); Potassium 4.1 mmol/L (3.3-5.1); Pro- Brain NATRIURETIC PEPTIDE 2559 pg/mL (<=900)
--- NOTE | 2025-04-04 07:50 | EDS_ITS ---
HPI History of Present Illness Chief Complaint: Shortness of Breath Informant: patient and EMS Narrative Narrative: Patient is a 59-year-old female with past medical history of hypertension hyperlipidemia lymphedema pulmonary hypertension and COPD as well as CHF. She states she typically wears 2 to 4 L nasal cannula at home. She states she went to bed feeling overall normal but then awoke with shortness of breath despite having her oxygen. She denied any fevers or chills or known sick contact. She denies any chest discomfort associated with this. She states that because of the persistent shortness of breath she called EMS. EMS states when they arrived the patient was awake and alert but struggling to breathe and her pulse ox on oxygen was low in the 70s. EMS reports that she did have expiratory wheeze and therefore she was given a DuoNeb breathing treatment and after receiving the medication still had mild wheeze so 125 of Solu-Medrol was added. [facility] Medical History Wears glasses Cancer Thyroid disease Pulmonary embolism Migraine headache History of IBS Heartburn History of edema History of stress test History of echocardiogram Cardiology follow-up encounter History of ulceration Essential hypertension COPD (chronic obstructive pulmonary disease) GI bleed Morbid obesity with BMI of 40.0-44.9, adult Abnormal echocardiogram CHF (congestive heart failure) Bilateral lower extremity edema Cellulitis of left leg Symptomatic anemia Anemia COVID-19 virus infection (~01/2022) Thyroid cancer Postoperative primary hypothyroidism Depression Arthritis Low iron Dietary restriction Non-smoker Shortness of breath on exertion History of pain when walking Nausea Abdominal pain Epigastric pain Cholelithiasis Nontoxic multinodular goiter Hypothyroid Type 2 diabetes mellitus Hyperlipidemia Asthma Migraines Home Medications ?Medication ?Instructions ?Recorded ?Last Taken ?Type ferrous sulfate 325 mg (65 mg 325 mg PO BID supplement 05/30/21 05/14/22 History iron) tablet (FeroSul) albuterol sulfate 90 mcg/actuation 2 puff inhalation Q 6H PRN 05/14/22 05/14/22 History aerosol inhaler (Ventolin HFA) Shortness Of Breath fluorometholone 0.1 % eye 1 drp EACH EYE DAILY PRN EYE 05/14/22 05/13/22 History drops,suspension INFLAMMATION levothyroxine 200 mcg tablet 200 mcg PO MOTUWETHFRSA T HYROID 05/14/22 05/14/22 History sitagliptin phosphate 50 1 tab PO BIDCM BLOOD SUGARS 05/14/22 05/14/22 History mg-metformin 1,000 mg tablet (Janumet) sucralfate 1 gram tablet (Carafate) 1 g PO BID GERD 05/14/22 History sumatriptan succinate 50 mg tablet 50 mg PO DAILY PRN Migraine 05/14/22 05/13/22 History Headache furosemide 40 mg tablet (Lasix) 40 mg PO DAILY 30 days #30 tabs 05/16/22 Unknown Rx ascorbic acid (vitamin C) 500 mg 500 mg PO DAILY SUPPL EMENT 07/17/22 Unknown History capsule,extended release (Vitamin C) budesonide-formoterol HFA 160 2 puff inhalation BID Unknown History mcg-4.5 mcg/actuation aerosol inhaler (Symbicort) levothyroxine 200 mcg capsule 100 mcg PO ALTAMIRANO 07/17/22 U nknown History atorvastatin 20 mg tablet 20 mg PO DAILY 07/22/22 Unkn own History carvedilol 25 mg tablet 12.5 mg (1/2 x 25 mg) PO BID #180 11/04/23 Unknown Rx tabs valsartan 160 mg tablet 160 mg PO DAILY #90 tabs 02/17 Unknown Rx sulfamethoxazole 800 1 tab PO BID #20 tabs Unknown Rx mg-trimethoprim 160 mg tablet (Bactrim DS) prednisone 10 mg tablet 30 mg PO DAILY 04/04/25 Unkn own History Allergy/AdvReac Type Severity Reaction Status Date / Time tizanidine (From [facility], 1928–1983) Allergy Severe Shortness Verified 04/04/25 06:06 of breath latex Allergy Rash Verified 04/04/25 06:06 lisinopril AdvReac Other Verified 04/04/25 06:06 Family History Aunt Breast cancer metastatic to bone Father Diabetes Hypertension Heart disease Myocardial infarction Mother Diabetes Hypertension Heart murmur Thyroid disorder Brother Diabetes Hypertension Grandmother Pneumothorax Surgical History Hx of cystoscopy History of esophagogastroduodenoscopy (EGD) History of carpal tunnel release (~2015) S/P partial thyroidectomy (~2006) Hx of tubal ligation Hx of bilateral cataract extraction (~2015) History of esophagogastroduodenoscopy (EGD) History of laparoscopic cholecystectomy (~11/15/19) S/P partial thyroidectomy (~2018) Social History Smoking Status: Never smoker second hand exposure: Yes alcohol intake: never substance use type: does not use caffeine: No ROS ROS ED Constitutional Constitutional ED: Denies chills or fever(s) Eyes Eyes: Denies change in vision ENT ENT ED: Denies rhinorrhea or sore throat Cardiovascular Cardiovascular: Reports orthopnea; Denies chest pain, palpitations or racing heartbeat Respiratory/Chest Respiratory/Chest: Reports cough, dyspnea, dyspnea on exertion and orthopnea Gastrointestinal Gastrointestinal: Denies abdominal pain, diarrhea, nausea or vomiting Genitourinary Genitourinary ED: Denies dysuria Musculoskeletal Musculoskeletal: Denies myalgias Integumentary Denies rash Neurologic Neurologic: Denies headache(s) Hematologic/Lymphatic Hematologic/Lymphatic: Denies easy bleeding or easy bruising Allergic/Immunologic Allergic/Immunologic ED: Denies mouth swelling or tongue swelling EXAM Physical Exam Const Vital Signs: 04/04/25 06:05 04/04/25 06:05 04/04/25 06:10 Temperature 98.6 F Temperature Source Oral Pulse Rate 91 90 Respiratory Rate 30 H 28 H Respiratory Effort Short of Breath Accessory Muscle Use Respiratory Depth Deep Respiratory Pattern Tachypnea Tachypnea Blood Pressure Blood Pressure Mean Pulse Ox 72 93 Oxygen Delivery Method Nasal Cannula Bi-pap Oxygen Flow Rate (L/min) 6 Fraction of Inspired Oxygen (FIO2) 100 60 04/04/25 06:20 04/04/25 06:23 04/04/25 06:44 Temperature Temperature Source Pulse Rate 83 Respiratory Rate 27 H Respiratory Effort Respiratory Depth Respiratory Pattern Blood Pressure 195/98 H 148/88 H Blood Pressure Mean 130 108 Pulse Ox 93 95 Oxygen Delivery Method Bi-pap Bi-pap Oxygen Flow Rate (L/min) Fraction of Inspired Oxygen (FIO2) 40 40 04/04/25 07:05 04/04/25 07:07 04/04/25 07:42 Temperature 97.8 F Temperature Source Pulse Rate 83 81 83 Respiratory Rate 20 H 27 H 18 Respiratory Effort Respiratory Depth Respiratory Pattern Blood Pressure 149/87 H 149/87 H 142/81 H Blood Pressure Mean 107 107 101 Pulse Ox 98 97 99 Oxygen Delivery Method Bi-pap Bi-pap Oxygen Flow Rate (L/min) Fraction of Inspired Oxygen (FIO2) Positive well nourished, well developed and obese Constitutional Narrative: Patient is in moderate respiratory distress with tachypnea and accessory muscle use General Appearance ED: well developed; Negative for pallor Nutritional Appearance: obese HEENT HEENT Narrative: Normocephalic atraumatic No tongue or lip swelling no oral lesions no airway edema or compromise Eyes PERRL and EOMs intact bilaterally General Eye ED: Negative for scleral icterus Neck supple and no JVD Neck Narrative: No nuchal rigidity or meningeal signs noted Chest Wall palpation of chest normal Resp Resp Narrative: Patient is in moderate respiratory distress with tachypnea and accessory muscle use Breath sounds are diminished throughout with faint expiratory wheeze and faint crackles noted in bilateral bases Cardio regular rate and regular rhythm Rate: other Other Details: Heart is regular rate and rhythm Radial and carotid pulses are equal and symmetric GI normal to inspection, nondistended, normoactive bowel sounds, non-tender, non- distended and no masses GI Narrative: No voluntary guarding or rigidity or pulsatile mass No fluid wave noted No peritoneal signs Auscultation: normoactive bowel sounds Palpation: soft Extremity Extremity Narrative: Nonpitting edema to the bilateral lower extremities that is equal and symmetric and chronic per patient; this is consistent with lymphedema Negative Homans' sign bilaterally Neuro oriented x3, CN's II-XII intact bilaterally and no sensory deficits noted Sensorium / Orientation: alert Motor Exam: strength 5/5 throughout Psych Mood & Affect: anxious Skin no rashes or lesions noted General Skin Exam: Negative for jaundice or pallor MDM MDM MDM Narrative Medical decision making narrative: Patient arrived to the ER with moderate respiratory distress having tachypnea accessory muscle use and hypoxia at approximately 70% on her normal nasal cannula. In order to assess for pneumonia versus pneumothorax versus congestive heart failure and chest x-ray was obtained. An EKG was ordered to rule out ischemia or cardiac dysrhythmia. Patient blood work was obtained to assess for acute blood loss anemia versus acute kidney injury or elevated proBNP consistent with CHF. A viral swab was also ordered to assess for potential infection from COVID influenza or RSV. Viral swab was negative. Blood work revealed an elevated proBNP at approximately 2600 but otherwise no clinically significant finding. Chest x-ray showed pulmonary vascular congestion which would correlate with CHF. After being placed on BiPAP the patient's work of breathing improved as well as her oxygenation status. Chart review reveals she underwent an echo in November of this year showing pulmonary hypertension with preserved ejection fraction. As today's history and exam is pointing towards CHF she was given a dose of IV Lasix on top of the noninvasive ventilation of BiPAP. As the patient was having hypoxia and respiratory distress despite wearing her normal nasal cannula oxygen I do not feel that she is safe to return home. Therefore I contacted the hospitalist to discuss admission for continued evaluation and treatment. The hospitalist evaluated the patient in ER and agrees with admission for continued observation and treatment History & Record Review Discussion w/independent historian: EMS personnel and Patient Lab Data Attestation: I reviewed the patient's lab results. Labs: Laboratory Results - last 24 hr 04/04/25 04/04/25 06:11 07:12 WBC 10.3 RBC 4.26 Hgb 12.3 Hct 38.3 MCV 89.9 MCH 28.9 MCHC 32.1 RDW Std Deviation 51.4 H RDW Coeff of Negar 15.9 H Plt Count 322 MPV 9.3 Immature Gran % (Auto) 1.500 H Neut % (Auto) 54.2 Lymph % (Auto) 36.2 [place] % (Auto) 6.3 Eos % (Auto) 1.2 Baso % (Auto) 0.6 Absolute Neuts (auto) 5.6 Absolute Lymphs (auto) 3.73 Nucleated RBC % 0 Sodium 135 Potassium 4.1 Chloride 100 Carbon Dioxide 18.7 L Anion Gap 16 H BUN 21 H Creatinine 1.08 Estim Creat Clear Calc 70.38 Est GFR (MDRD) Non-Af 60 BUN/Creatinine Ratio 19.8 Glucose 254 H Calcium 9.3 Magnesium 1.5 NT pro BNP II 2559 H POC Glucose 133 H ABG Data ABG results: ABG 04/04/25 06:26 Specimen Type ART Sample Site L Radial pH 7.42 Bicarbonate Actual 19.0 L Total CO2 20 Base Excess -6 L O2 Saturation 87 L O2 % 40.0 ABG pCO2 29.6 L ABG pO2 52 L Carson Test Positive Respiration Rate 12 O2 Delivery Device BiPAP Vent Mode Not entered Clinical Comments 16/8 12 40% Radiography Diagnostic Testing: Clinical Impression(s) from Imaging Studies Chest X-Ray 04/04/25 06:23 IMPRESSION: Mild central pulmonary venous congestion, less prominent than the prior exam. Reading Location: [place] [id number] 1 view chest x-ray as interpreted by the emergency medicine physician reveals pulmonary vascular congestion consistent with CHF without obvious infiltrate or pneumothorax Discharge Plan Dx/Rx/DC Orders Clinical Impression: Acute and chronic respiratory failure with hypoxia, HTN (hypertension), COPD (chronic obstructive pulmonary disease), Essential hypertension, Pulmonary hypertension, CHF (congestive heart failure), Lymphedema Disposition Disposition: Acute Care Hospital [facility]
--- NOTE | 2025-04-04 08:06 | PCM.HP.STD ---
[facility] - General General Date of Service: 04/04/25 Chief Complaint: shortness of breath. [facility] Narrative JESUS ZEPEDA, is a 59 F who presents with shortness of breath. This is a 59-year-old female who is on chronic oxygen of 2 to 4 L presents with acute onset of shortness of breath that began this morning. EMS arrived and she was having a pulse ox in the 70s. Patient was admitted and placed on BiPAP. Patient received furosemide in the emergency room. Patient denies any fever or chills. Has had a cough. Has had lower extreme edema but no change. Denies any recent weight change. Denies chest pain. [ ] [facility] Medical History Wears glasses Cancer Thyroid disease Pulmonary embolism Migraine headache History of IBS Heartburn History of edema History of stress test History of echocardiogram Cardiology follow-up encounter History of ulceration Essential hypertension COPD (chronic obstructive pulmonary disease) GI bleed Morbid obesity with BMI of 40.0-44.9, adult Abnormal echocardiogram CHF (congestive heart failure) Bilateral lower extremity edema Cellulitis of left leg Symptomatic anemia Anemia COVID-19 virus infection (~01/2022) Thyroid cancer Postoperative primary hypothyroidism Depression Arthritis Low iron Dietary restriction Non-smoker Shortness of breath on exertion History of pain when walking Nausea Abdominal pain Epigastric pain Cholelithiasis Nontoxic multinodular goiter Hypothyroid Type 2 diabetes mellitus Hyperlipidemia Asthma Migraines Home Medications ?Medication ?Instructions ?Recorded ?Last Taken ?Type ferrous sulfate 325 mg (65 mg 325 mg PO BID supplement 05/30/21 05/14/22 History iron) tablet (FeroSul) albuterol sulfate 90 mcg/actuation 2 puff inhalation Q6H PRN 05/14/22 05/14/22 History aerosol inhaler (Ventolin HFA) Shortness Of Breath fluorometholone 0.1 % eye 1 drp EACH EYE DAILY PRN EYE 05/14/22 05/13/22 History drops,suspension INFLAMMATION levothyroxine 200 mcg tablet 200 mcg PO MOTUWETHFRSA THYROID 05/14/22 05/14/22 History sitagliptin phosphate 50 1 tab PO BIDCM BLOOD SUGARS 05/14/22 05/14/22 History mg-metformin 1,000 mg tablet (Janumet) sucralfate 1 gram tablet (Carafate) 1 g PO BID GERD 05/14/22 05/14/22 History sumatriptan succinate 50 mg tablet 50 mg PO DAILY PRN Migraine 05/14/22 05/13/22 History Headache furosemide 40 mg tablet (Lasix) 40 mg PO DAILY 30 days #30 tabs 05/16/22 Unknown Rx ascorbic acid (vitamin C) 500 mg 500 mg PO DAILY SUPPLEMENT 07/17/22 Unknown History capsule,extended release (Vitamin C) budesonide-formoterol HFA 160 2 puff inhalation BID 07/17/22 Unknown History mcg-4.5 mcg/actuation aerosol inhaler (Symbicort) levothyroxine 200 mcg capsule 100 mcg PO ALTAMIRANO 07/17/22 Unknown History atorvastatin 20 mg tablet 20 mg PO DAILY 07/22/22 Unknown History carvedilol 25 mg tablet 12.5 mg (1/2 x 25 mg) PO BID #180 11/04/23 Unknown Rx tabs valsartan 160 mg tablet 160 mg PO DAILY #90 tabs 11/04/23 Unknown Rx sulfamethoxazole 800 1 tab PO BID #20 tabs 04/22/24 Unknown Rx mg-trimethoprim 160 mg tablet (Bactrim DS) prednisone 10 mg tablet 30 mg PO DAILY 04/04/25 Unknown History Allergy/AdvReac Type Severity Reaction Status Date / Time tizanidine (From Zanaflex) Allergy Severe Shortness Verified 04/04/25 06:06 of breath latex Allergy Rash Verified 04/04/25 06:06 lisinopril AdvReac Other Verified 04/04/25 06:06 Family History Aunt Breast cancer metastatic to bone Father Diabetes Hypertension Heart disease Myocardial infarction Mother Diabetes Hypertension Heart murmur Thyroid disorder Brother Diabetes Hypertension Grandmother Pneumothorax Surgical History Hx of cystoscopy History of esophagogastroduodenoscopy (EGD) History of carpal tunnel release (~2015) S/P partial thyroidectomy (~2006) Hx of tubal ligation Hx of bilateral cataract extraction (~2015) History of esophagogastroduodenoscopy (EGD) History of laparoscopic cholecystectomy (~11/15/19) S/P partial thyroidectomy (~2018) Social History Smoking Status: Never smoker second hand exposure: Yes alcohol intake: never substance use type: does not use caffeine: No ROS ROS Narrative All review of systems were negative except as mentioned above in the history of present illness and the other review of systems. Vital Signs Vital Signs Vital Signs: 04/04/25 06:05 04/04/25 06:05 04/04/25 06:10 Temperature 37.0 C Temperature Source Oral Pulse Rate 91 90 Respiratory Rate 30 H 28 H Respiratory Effort Short of Breath Accessory Muscle Use Respiratory Depth Deep Respiratory Pattern Tachypnea Tachypnea Blood Pressure Blood Pressure Mean Pulse Ox 72 93 Oxygen Delivery Method Nasal Cannula Bi-pap Oxygen Flow Rate (L/min) 6 Fraction of Inspired Oxygen (FIO2) 100 60 04/04/25 06:20 04/04/25 06:23 04/04/25 06:44 Temperature Temperature Source Pulse Rate 83 Respiratory Rate 27 H Respiratory Effort Respiratory Depth Respiratory Pattern Blood Pressure 195/98 H 148/88 H Blood Pressure Mean 130 108 Pulse Ox 93 95 Oxygen Delivery Method Bi-pap Bi-pap Oxygen Flow Rate (L/min) Fraction of Inspired Oxygen (FIO2) 40 40 04/04/25 07:05 04/04/25 07:07 04/04/25 07:42 Temperature 36.6 C Temperature Source Pulse Rate 83 81 83 Respiratory Rate 20 H 27 H 18 Respiratory Effort Respiratory Depth Respiratory Pattern Blood Pressure 149/87 H 149/87 H 142/81 H Blood Pressure Mean 107 107 101 Pulse Ox 98 97 99 Oxygen Delivery Method Bi-pap Bi-pap Oxygen Flow Rate (L/min) Fraction of Inspired Oxygen (FIO2) Weight Weight: 110.8 kg Body Mass Index (BMI) 40.6 Physical Exam Narrative POCUS of the abdomen for respiratory failure. Limited given limited array of probes but using the curvilinear probe, IVC was noted to be dilated and using the Smart IVC feature showed that it was roughly 2 cm with minimal collapsibility with respirations. Const alert and no apparent distress Constitutional Narrative: Seen on BiPAP. Patient does take the mask to communicate but not having any respiratory distress nor any conversational dyspnea. HEENT normocephalic and head/scalp atraumatic Resp Resp Narrative: Coarse breath sounds bilaterally Cardio regular rate, regular rhythm, S1 normal heart sound and S2 normal heart sound GI normal to inspection, nondistended, normoactive bowel sounds, soft to palpation, non-tender and non-distended Extremity Extremity Narrative: Marked lower extremity edema. Neuro Sensorium / Orientation: awake and alert Psych affect normal Results Lab / Micro Data 04/04/25 06:11 04/04/25 06:11 Labs: Laboratory Results - last 24 hr 04/04/25 06:11: WBC 10.3, RBC 4.26, Hgb 12.3, Hct 38.3, MCV 89.9, MCH 28.9, MCHC 32.1, RDW Std Deviation 51.4 H, RDW Coeff of Negar 15.9 H, Plt Count 322, MPV 9.3, Immature Gran % (Auto) 1.500 H, Neut % (Auto) 54.2, Lymph % (Auto) 36.2, [place] % (Auto) 6.3, Eos % (Auto) 1.2, Baso % (Auto) 0.6, Absolute Neuts (auto) 5.6, Absolute Lymphs (auto) 3.73, Nucleated RBC % 0, Sodium 135, Potassium 4.1, Chloride 100, Carbon Dioxide 18.7 L, Anion Gap 16 H, BUN 21 H, Creatinine 1.08, Estim Creat Clear Calc 70.38, Est GFR (MDRD) Non-Af 60, BUN/Creatinine Ratio 19.8, Glucose 254 H, Calcium 9.3, Magnesium 1.5, NT pro BNP II 2559 H 04/04/25 07:12: POC Glucose 133 H Micro: Microbiology 04/04/25 06:16 Mucosa - Nose SARS-CoV-2, Influenza & RSV (PCR) - Final ABG Data ABG results: ABG 04/04/25 06:26 Specimen Type ART Sample Site L Radial pH 7.42 Bicarbonate Actual 19.0 L Total CO2 20 Base Excess -6 L O2 Saturation 87 L O2 % 40.0 ABG pCO2 29.6 L ABG pO2 52 L Carson Test Positive Respiration Rate 12 O2 Delivery Device BiPAP Vent Mode Not entered Clinical Comments 10/12 12 40% EKG Initial EKG: Attestation: I personally reviewed and interpreted this EKG as follows: Prior EKG tracings: available for review EKG Rhythm Intrepretation: Sinus Rhythm (Right bundle branch block. Unchanged from June 2022.) Imaging Radiology Impression Chest X-Ray 04/04/25 06:23 IMPRESSION: Mild central pulmonary venous congestion, less prominent than the prior exam. Reading [facility] Assessment & Plan Assessment/Plan (1) Acute and chronic respiratory failure with hypoxia: PLAN: Suspect due to CHF exacerbation. Cannot rule out acute COPD exacerbation given her history. Patient does have a dilated IVC which could indicate due to pulmonary vascular congestion versus pulmonary hypertension versus PE. Will check a D-dimer and if elevated check a CT angiogram of the chest. Continue with diuresis with IV furosemide and treat her for COPD exacerbation with methylprednisolone and bronchodilators. Fluid restrict. Patient's weight has gone up 13 kg since last year. Patient on BiPAP. FiO2 down to 40%. Will continue with the BiPAP and wean as tolerated. Respiratory therapy to assist. PLAN: Plan Diabetes mellitus type 2: Hold off on the Janumet in case patient requires a CT angiogram. Sign scale insulin. Check an A1c Hypothyroidism: Continue levothyroxine Migraines continue with as needed sumatriptan Hypertension: Continue with valsartan. Obesity class III: Complicates care and recovery VTE prophylaxis with enoxaparin CODE STATUS: Addressed with the patient. Patient initially stated that she did not want to be intubated but was okay with CPR. Told her that if she wants is to have CPR many times individuals do require being placed on a ventilator and if she wants CPR to be successful if necessary then we should intubate her. She agrees to being full code at this time. Charges/Coding Visit Charges Inpatient E&M: 64805 Init Hosp L3
[2025-04-04 16:56] LABS: D-Dimer Quantitative (DVT/PE) 3.96 FEU/ug/m (0.27-0.49)
--- NOTE | 2025-04-04 17:15 | CT_ITS ---
PROCEDURE: CTA CHEST W/WO CONTRAST 04/04/2025 REASON FOR EXAM: ELEVATED D-DIMER, SOB TECHNIQUE: Procedure Code: [id number] Modality: CT Procedure: CTA CHEST W/WO CONTRAST Multiplanar Sagittal and Coronal images were obtained. 3D post processing was performed. CONTRAST: Isovue 370 VOLUME: 86 mL One or more dose reduction techniques were used (e.g., Automated exposure control, adjustment of the mA and/or kV according to patient size, use of iterative reconstruction technique). RADIATION DOSE SUMMARY: DLP: 495.43 mGycm COMPARISON: CTA chest 01/10/2022. FINDINGS: PULMONARY VESSELS: Extensive bilateral central pulmonary arterial emboli. No saddle embolus. Mildly prominent caliber of the main pulmonary trunk. Flattening of the intraventricular septum with elevated RV/LV diameter ratio compatible with right heart strain. LUNGS/PLEURA: No focal airspace consolidation. Mosaic airspace attenuation/patchy ground-glass opacities may reflect air trapping, or possibly mild pulmonary edema. No pneumothorax or pleural effusions. Patent central airways. Few scattered small pulmonary cysts. MEDIASTINUM: Unremarkable. No suspicious lymph node enlargement. HEART: Top-normal in size. No pericardial effusion. Mild coronary artery calcifications. THORACIC AORTA: Normal in course and caliber. Minimal atherosclerotic calcifications. UPPER ABDOMEN: No significant abnormality, as visualized. BONES: Mild multilevel degenerative changes of the visualized spine. Exaggerated thoracic kyphosis may be positional in nature. CT/CTA Chest W/WO Contrast IMPRESSION: Extensive bilateral central pulmonary arterial emboli, with right-sided heart s train. No focal airspace consolidation/infarct, or pleural effusion. Patchy ground-gl ass/mosaic airspace attenuation may reflect air trapping, possibly mild pulmonary edema. Reading Location: [id number]
--- NOTE | 2025-04-04 18:39 | VDLE_ITS ---
Reason For Study Reason For Study: PE RIGHT LEFT GSV is normal. GSV is normal. CFV is compressible, spontaneous, competent and CFV is compressible, spontaneous, competent, and demonstrates pulsatile venous flow. demonstrates pulsatile venous flow. FV is compressible, spontaneous, competent and FV is compressible, spontaneous, competent and demonstrates pulsatile venous flow. demonstrates pulsatile venous flow. POP V is compressible, spontaneous, phasic, competent Acute deep vein thrombosis is noted in the POP V. It and demonstrates normal augmentation. is dilated and NONCOMPRESSIBLE. T/P Trunk is compressible. Acute deep vein thrombosis is noted in the T/P Trunk. PTV is compressible. It is dilated and NONCOMPRESSIBLE. RT PerV is compressible. Acute deep vein thrombosis is noted in the PTV. It is Procedure dilated and NONCOMPRESSIBLE. This is a venous duplex using B-mode, color flow and LT PerV is compressible. spectral Doppler. Exam performed portable in ICU/CCU. The study was technically difficult. A preliminary report was called and/or faxed to [facility]. VL/Venous Duplex US - Dg Extrem Interpretation Summary Acute deep vein thrombosis noted in the left popliteal vein, tibioperoneal trun k vein, psoterior tibial vein. Deep veins of the right lower extremity are patent and compressible segmentally . There is no evidence of right lower extremity deep vein thrombosis. The bilateral great saphenous veins appear snyder nt and compressible segmentally. Ordering Physician: Esa Melton Referring Physician: Riki Clark Performed By: Sylvester Harrison RVT
--- NOTE | 2025-04-04 18:39 | ECHOD_ITS ---
Reason For Study Reason For Study: PULMONARY EMBOLISM Procedure This was a 2D Doppler, Color Flow transthoracic echocardiogram. The study was technically difficult. Exam performed portable in ICU/CCU. Left Ventricle Normal-sized left ventricle. Left ventricular EF by Gaffney's biplane: 77%. E/e' suggest normal filling pressures. No regional wall motion abnormalities noted. Septal motion consistent with RV volume/pressure overload. Right Ventricle Severely dilated right ventricle. Preserved right ventricular systolic function. RVSP is severely elevated, estimated: 90 mmHg. Suggestive of severe pulmonary hypertension/severely elevated pulmonary pressures. Atria The left and right atria are normal. Right atrial pressure estimated at: 15 mmHg. Normal atrial septum. Mitral Valve Normal mitral valve. Trace mitral regurgitation. No mitral stenosis. Tricuspid Valve Normal tricuspid valve. No tricuspid stenosis. Mild tricuspid regurgitation. Aortic Valve Trileaflet aortic valve. No hemodynamically significant aortic stenosis. Mild aortic regurgitation. Pulmonic Valve Normal pulmonic valve. Trace pulmonic regurgitation. No pulmonic stenosis. Great Vessels Normal sized aortic root. Normal ascending aorta. Pericardium/Pleural No pericardial effusion. MMode/2D Measurements & Calculations LVIDd: 4.3 cm IVSd: 1.1 cm Ao root diam: 3.6 cm LVIDs: 2.5 cm LVPWd: 0.87 cm RVDd: 4.9 cm FS: 40.9 % LAV(MOD-bp): 32.1 ml LVAd ap4: 29.1 cm2 LVAd ap2: 19.4 cm2 LAV(MOD-bp) Indexed: 14.7 ml/m2 LVLd ap4: 8.1 cm LVLd ap2: 7.0 cm LAV(MOD-sp2): 39.6 ml EDV(MOD-sp4): 84.6 ml EDV(MOD-sp2): 47.9 ml LAV(MOD-sp4): 25.4 ml EDV(sp4-el): 88.3 ml EDV(sp2-el): 45.8 ml LVAs ap4: 11.5 cm2 LVAs ap2: 8.4 cm2 LVLs ap4: 6.5 cm LVLs ap2: 6.2 cm ESV(MOD-sp4): 19.2 ml ESV(MOD-sp2): 12.0 ml ESV(sp4-el): 17.3 ml ESV(sp2-el): 9.8 ml EF(MOD-sp4): 77.3 % EF(MOD-sp2): 75.0 % EF(sp4-el): 80.4 % SV(MOD-sp4): 65.4 ml SV(MOD-sp2): 36.0 ml EDV(MOD-bp): 67.9 ml SI(MOD-sp4): 30.1 ml/m2 SI(MOD-sp2): 16.5 ml/m2 ESV(MOD-bp): 15.3 ml EF(MOD-bp): 77.5 % SV(sp4-el): 70.9 ml LA dimension(2D): 4.8 cm LA A4 area: 12.9 cm2 RA A4 area: 15.3 cm2 TAPSE: 2.5 cm Time Measurements MV dec time: 0.15 sec Doppler Measurements & Calculations MV E max goldy: 54.9 cm/sec Lat Peak E' Goldy: 11.6 cm/sec Med Peak E' Goldy: 10.1 cm/sec MV A max goldy: 92.1 cm/sec E/E' lat: 4.7 E/E' med: 5.4 MV E/A: 0.60 Ao V2 max: 197.8 cm/sec LV V1 max: 157.4 cm/sec PA V2 max: 95.6 cm/sec Ao max P.6 mmHg LV V1 max P.9 mmHg Ao V2 mean: 133.0 cm/sec LV V1 mean P.0 mmHg Ao mean P.8 mmHg LV V1 mean: 117.0 cm/sec Ao V2 VTI: 32.0 cm LV V1 VTI: 22.0 cm AV (velocity ratio): 0.69 TR max goldy: 435.3 cm/sec TR max P.8 mmHg ECHO/Echo Complete Interpretation Summary Severely dilated right ventricle with evidence of right ventricular pressure/vo lume overload Severely elevated pulmonary pressures Hyperdynamic left ventricle with EF greater than 75% by Gaffney's biplane Mild aortic regurgitation Ordering Physician: Esa Melton Referring Physician: Riki Clark Performed By: Rachel Rocha, GINGER, RVT
[2025-04-04 19:37] LABS: Hematocrit 37.7 % (37-47); Hemoglobin 13.1 g/dL (12.0-15.0); Immature Granulocytes Count 0.100 X10^3/uL (0.0-0.0); Mean Corp Hgb Conc 34.7 g/dL (32-36); Mean Corpuscular Volume 84.9 fL (81-99); Mean Platelet Vol. 9.2 fl (6.2-12.0); NRBC Flagged by Analyzer 0 % (0-5); Platelet Count 332 K/mm3 (150-450); RBC Distribution Width CV 15.9 % (11.6-14.6); RBC Distribution Width SD 48.1 fl (35.1-43.9); Red Blood Count 4.44 M/mm3 (4.2-5.4); White Blood Count 10.1 K/mm3 (4.4-11.0)
[2025-04-04 19:53] LABS: Prothrombin Time (Protime)PT. 13.9 SECONDS (11.7-14.9)
[2025-04-04 19:54] LABS: Partial Thromboplast Time 28.4 Seconds (24.1-36.2)
[2025-04-04] MEDS: Heparin Injection (Vial) 5,000 UNIT/ML VIAL 8000 UNIT IV (19:55)
[2025-04-04] MEDS: HEPARIN/D5w 25,000 UNITS 25,000 UNITS/250 ML IV.SOLN. 17 UNITS CONT INF (19:56)
[2025-04-04] MEDS: 0.9% Saline Lock 10 ML Syringe IV (19:59)
--- NOTE | 2025-04-04 23:19 | CPS ---
Patient refused PAP therapy for night time use. Patient stated that she does not feel short of breath and that she wears 2L of oxygen at home. Patient is currently on 6L spo2 between 88-91%. RT strongly encouraged patient to wear bipap especially since requiring more oxygen than her home O2 baseline. RT explained to patient that she may have to wear it if her oxygen drops significantly while sleeping. Patient is agreeable only if absolutely necessary. RN aware, and encouraged patient to wear bipap as well.
[2025-04-05] VITALS (21 sets, daily range): BP systolic 113–163; BP diastolic 72–91; PULSE 81–103; RESP 18–25; TEMP 36.4–37.1; O2SAT 24–96; BMI 39.6
[2025-04-05] MEDS: Piperacil/Tazobactam 3.375 GM in 0.9% Normal Saline (50mL MB+) 50 ML IV ×3 (00:54→14:00)
[2025-04-05] MEDS: Vancomycin HCl 1,750 MG in 0.9% Normal Saline (500mL Bag) 500 ML 250 MG IV (00:55)
--- NOTE | 2025-04-05 00:58 | PN.HOSP_ITS ---
Hospitalist Note Notified of erythema to BLE w/open ulcerations to posterior calves. Assessed: room is very malodorous, skin warm/tender to touch, tight w/lymphedema, serous drng. Directed bedside RN to amber erythema borders circumferentially, obtain wound cultures from each leg, consult placed to wound RN. I ordered vanc- pharmacy to dose and pip/opal to cover wounds/cellulitis. Pt has a h/o cellulitis and is diabetic.
--- NOTE | 2025-04-05 01:03 | PHA.PHARE_ITS ---
Consult Antibiotic Management Pharmacy has been consulted to manage selected antibiotic: Vancomycin Type of Intervention Type of Consult: New start Labs Labs: Sodium 135 mmol/L (133-145) 04/04/25 06:11 Potassium 4.1 mmol/L (3.3-5.1) 04/04/25 06:11 Chloride 100 mmol/L (98-108) 04/04/25 06:11 Carbon Dioxide 18.7 mmol/L (21.0-32.0) L 04/04/25 06:11 Anion Gap 16 (5-15) H 04/04/25 06:11 BUN 21 mg/dL (4-19) H 04/04/25 06:11 Creatinine 1.08 mg/dL (0.70-1.20) 04/04/25 06:11 Est GFR (MDRD) Non-Af 60 (>60) 04/04/25 06:11 BUN/Creatinine Ratio 19.8 RATIO (10-20) 04/04/25 06:11 Glucose 254 mg/dL (70-99) H 04/04/25 06:11 Microbiology Microbiology: Microbiology 04/04/25 06:16 Mucosa - Nose SARS-CoV-2, Influenza & RSV (PCR) - Final Dosing Weight Weight used for dosin kg Estimated Creatinine Clearance Estimated Creatinine Clearance: 70 Goal Trough Goal Trough: 10-15 mcg/mL Pharmacy Plan for Drug Dosing Pharmacy Plan for Drug Dosing: Pharmacy Service will continue to monitor and adjust dosing as required. Follow-Up Labs Follow-Up Labs: Trough: Vancomycin Date/Time Labs Ordered Labs to be done on [date and time ordered]: 04/06/25 @1233
[2025-04-05 02:35] LABS: Partial Thromboplast Time > 250.0 Seconds (24.1-36.2)
--- NOTE | 2025-04-05 02:50 | NURSING ---
0235 lab reported PTT >250. heparin drip protocol followed and heparin drip stopped for 2 hours.
[2025-04-05 03:09] LABS: Staph aureus DNA By PCR NEGATIVE (Negative)
[2025-04-05 04:35] LABS: Hematocrit 36.2 % (37-47); Hemoglobin 11.9 g/dL (12.0-15.0); Immature Granulocytes Count 0.090 X10^3/uL (0.0-0.0); Mean Corp Hgb Conc 32.9 g/dL (32-36); Mean Corpuscular Volume 87.0 fL (81-99); Mean Platelet Vol. 9.1 fl (6.2-12.0); NRBC Flagged by Analyzer 0 % (0-5); Platelet Count 314 K/mm3 (150-450); RBC Distribution Width CV 15.9 % (11.6-14.6); RBC Distribution Width SD 49.7 fl (35.1-43.9); Red Blood Count 4.16 M/mm3 (4.2-5.4); White Blood Count 11.7 K/mm3 (4.4-11.0)
[2025-04-05 04:58] LABS: Anion Gap 14 (5-15); BUN 25 mg/dL (4-19); BUN/Creat Ratio 24.3 RATIO (10-20); Calcium,Total 9.0 mg/dL (7.6-11.0); Carbon Dioxide 24.7 mmol/L (21.0-32.0); Chloride 99 mmol/L (98-108); Estimated Creatinine Clearance 76.26 ml/min (50-250); Glucose 244 mg/dL (70-99); Potassium 3.9 mmol/L (3.3-5.1)
[2025-04-05] MEDS: 0.9% Normal Saline (250mL Bag) 250 ML 15 ML IV (06:19)
[2025-04-05] MEDS: TITRATION PARAMETER CHANGE 1 EACH IV ×2 (07:41→08:45)
--- NOTE | 2025-04-05 08:15 | PCM.PN.HOSP ---
Reason for Visit Chief Complaint: shortness of breath. Subjective Subjective Breathing better. Declining BiPAP. Objective Data Objective Data Vital Signs: Vital Signs Temp Pulse Resp BP Pulse Ox O2 Del Method O2 Flow Rate 36.6 C 85 20 H 135/81 H 93 Nasal Cannula 6 04/05/25 05:00 04/05/25 07:00 04/05/25 07:00 04/05/25 07:00 04/05/25 07:00 04/05/25 07:00 04/05/25 07:00 FiO2 6 04/04/25 16:00 Oxygen Flow Rate (L/min) 6 Oxygen Delivery Method Nasal Cannula Weight: 107.8 kg Body Mass Index (BMI) 39.6 Intake & Output: Intake and Output for Last 24 Hours 04/03/25 04/04/25 04/05/25 23:59 23:59 23:59 Intake Total 1150 / 1150 843.25 / 843.25 Output Total 3250 / 4450 1650 / 1650 Balance -2100 / -3300 -806.75 / -806.75 Lab / Micro Data 04/05/25 04:25 04/05/25 04:25 Labs: Laboratory Results - last 24 hr 04/04/25 08:54: POC Glucose 130 H 04/04/25 11:47: POC Glucose 304 H 04/04/25 16:05: D-Dimer Quant (PE/DVT) 3.96 H* 04/04/25 16:08: POC Glucose 175 H 04/04/25 18:50: WBC 10.1, RBC 4.44, Hgb 13.1, Hct 37.7, MCV 84.9 D, MCH 29.5, MCHC 34.7 D, RDW Std Deviation 48.1 H, RDW Coeff of Negar 15.9 H, Plt Count 332, MPV 9.2, Immature Gran % (Auto) 1.000 H, Neut % (Auto) 86.7 H, Lymph % (Auto) 10.5 L, Hartley % (Auto) 1.7, Eos % (Auto) 0.0, Baso % (Auto) 0.1, Absolute Neuts (auto) 8.8 H, Absolute Lymphs (auto) 1.06, Nucleated RBC % 0, PT 13.9, INR 1.1, APTT 28.4 04/04/25 21:09: POC Glucose 291 H 04/05/25 00:15: S.aureus Protein A PCR NEGATIVE, MRSA (PCR) Negative 04/05/25 01:55: APTT > 250.0 H* 04/05/25 04:25: WBC 11.7 H, RBC 4.16 L, Hgb 11.9 L, Hct 36.2 L, MCV 87.0, MCH 28.6, MCHC 32.9 D, RDW Std Deviation 49.7 H, RDW Coeff of Negar 15.9 H, Plt Count 314, MPV 9.1, Immature Gran % (Auto) 0.800, Neut % (Auto) 83.2 H, Lymph % (Auto) 11.6 L, Hartley % (Auto) 4.1, Eos % (Auto) 0.1, Baso % (Auto) 0.2, Absolute Neuts (auto) 9.7 H, Absolute Lymphs (auto) 1.35, Nucleated RBC % 0, Sodium 137, Potassium 3.9, Chloride 99, Carbon Dioxide 24.7, Anion Gap 14, BUN 25 H, Creatinine 1.01, Estim Creat Clear Calc 76.26, Est GFR (MDRD) Non-Af 65, BUN/Creatinine Ratio 24.3 H, Glucose 244 H, Hemoglobin A1c 7.3 H, Calcium 9.0 04/05/25 07:56: POC Glucose 222 H Micro: Microbiology 04/04/25 06:16 Mucosa - Nose SARS-CoV-2, Influenza & RSV (PCR) - Final Radiography Diagnostic Testing: Radiology Impression Chest CTA 04/04/25 17:15 IMPRESSION: Extensive bilateral central pulmonary arterial emboli, with right-sided heart strain. No focal airspace consolidation/infarct, or pleural effusion. Patchy ground-glass/mosaic airspace attenuation may reflect air trapping, possibly mild pulmonary edema. Reading Location: [facility] Physical Exam Const alert and no apparent distress Constitutional Narrative: sitting up in bed. non-toxic. no respiratory distress. no conversational dyspnea. HEENT head/scalp atraumatic and moist oral mucous membranes Resp normal respiratory effort and no retractions Resp Narrative: bibasilar crackles. Cardio regular rate, regular rhythm, S1 normal heart sound and S2 normal heart sound GI normal to inspection, nondistended, normoactive bowel sounds, soft to palpation, non-tender and non-distended Extremity General Extremity: edema bilateral lower extremity Details: moderate Neuro Sensorium / Orientation: awake, alert, oriented to person, oriented to place and oriented to time Assessment & Plan Assessment/Plan (1) Acute and chronic respiratory failure with hypoxia: PLAN: Suspect due to pulmonary embolism and CHF exacerbation. Cannot rule out acute COPD exacerbation given her history. Patient does have a dilated IVC which could indicate due to pulmonary vascular congestion versus pulmonary hypertension versus PE. Continue with diuresis with IV furosemide and treat her for COPD exacerbation with methylprednisolone and Pt declining BiPAP and currently tolerating nasal canula. Respiratory therapy to assist. Will change to PCU status. (2) Pulmonary embolism: PLAN: Patient had an elevated D-dimer and patient underwent a CT angiogram of the chest. CT angiogram showed extensive bilateral central pulmonary arterial emboli with right sided heart strain. No focal airspace consolidation/infarct nor pleural effusion. Patchy ground glass/mosaic airspace attenuation. Patient started on heparin drip. Has had issues with anemia the past. Will continue to monitor while on anticoagulation. Duplex acute DVT in popliteal trunk and PTV (Duplex on 02/22/2025 was negative at [facility] DW Dr. Garcia for evaluation for thrombectomy. He will review. The PE and DVT though diagnosed after the patient was admitted, were acquired prior to admission. PLAN: Plan Diabetes mellitus type 2: Hold off on the Janumet in case patient requires a CT angiogram. Sign scale insulin. Check an A1c Hypothyroidism: Continue levothyroxine Migraines continue with as needed sumatriptan Hypertension: Continue with valsartan. Obesity class III: Complicates care and recovery VTE prophylaxis with enoxaparin CODE STATUS: Addressed with the patient. Patient initially stated that she did not want to be intubated but was okay with CPR. Told her that if she wants is to have CPR many times individuals do require being placed on a ventilator and if she wants CPR to be successful if necessary then we should intubate her. She agrees to being full code at this time. Charges/Coding Visit Charges Inpatient E&M: 55204 Subs Hosp L3
--- NOTE | 2025-04-05 10:41 | CASEMGMT ---
PHAM EVANS Assessment Face to Face with patient for initial transition planning/care coordination assessment. PHAM EVANS introduced self and role at [facility], pt voices understanding. Pt is A&Ox4 and is resting comfortably in bed and is calm. Care providers, pharmacy, and demographics verified. Dr Melton entered the room and reports that the pt will be staying overnight at least and will continue on the Heparin for the PEs as well as Lasix to get more fluid off. Echo of the heart and lower extremities pending. Vascular team consulted. Admitting dx: GALA VILLALBA Strata: 2 PCP: Riki Clark Specialists: Francis MOYA ([facility]) [facility] Insurance: [employer] Prescription Benefit: Yes. However, pt states that she has troubles paying her copays. Follow for needs. LNOK: Gracie Obrien (Daughter) Living Arrangements: Pt lives alone in a ground level apartment with a flat entrance ADLs/IADLs: Pt states that she is indep at baseline. However, current 6-Click score is 16 and PT is pending. Transportation: Self, Aunt. Pt states that her Aunt should be able to transport her home but is not 100% sure. Pt informed about [facility] Transportation services and that the pt would have to be able to get in and out of the vehicle independently. CM to follow. DME: Home oxygen through [employer]. [employer] states that the pt's current order is for 4L with exertion only. Pt states that she has a concentrator, portable tanks (states Aunt should be able to bring in at [place]), pulse ox, and inhaler. Pt states that she has a BGM with sufficient lancets only. Pt states that she is low on EtOH swabs and test strips. Pt states that she gets these at [employer] and that her copay is 17$. Pt states that she cannot afford this. Pt educated about the potential for the joelle program through [facility]. CM to follow. Pt states that she does not have a scale regarding her CHF. Pt encouraged to buy one. Pt states that she has grab bars. Pt does not have a FWW. CM to follow PT eval and progression. Pt states that she would be receptive to getting a FWW if warranted and states that she prefers [employer] as well (Verbal list of local in network DME providers given). CM to follow. HHC/SNF: Denies hx of. Pt states that she does not want to go to a SNF and wants to return home once medically ready. Pt states that she may be open to HHC. Wound: Pt has BL LE wounds. Pt states that she cares for these herself at home usually but does not currently have supplies to. Sangeetha, Wound RN, is consulted and following. Palliative Care: Inquired if the pt has any interest in Palliative care regarding her CHF. Pt currently declines the need but is aware that she can follow up with her PCP if she were to change her mind. Compliancy: Noted that the pt stopped taking her Lasix at home due to frequent urination. Pt educated about the importance of taking her medications as prescribed. Pt?s goal: Home Plan: TBD. Follow for SNF vs Home with HHC, updated oxygen, transportation, wound care, and Rx/ DME $ needs. Follow vascular consult. Follow PT eval. At this time, the pt states that she wants to go home at the time of DC and denies SNF. CM encouraged the pt to work with therapy today to see if it will be safe to go home alone once medically ready. Pt states that she can call her relatives to help her at home if needed. Pt states that she may be open to Skilled HHC but would like to think about it first. This telegraphic typewriter mechanic informed the pt what HHC is and how the pt can benefit from it regarding oxygen needs, medication management, education, wound care, PT, and more. CM to follow. Pt denies further questions or concerns at this time. CM to follow. Kristan Obrien RN, CM
--- NOTE | 2025-04-05 10:48 | EX.PCM.CON.S ---
Assessment & Plan Assessment/Plan (1) Pulmonary embolism: PLAN: She has acute pulmonary embolism; she has significant clot burden which would make her a reasonable candidate to consider thrombectomy. She has remained hemodynamically stable. She is requiring 6 lpm O2 which is 3lpm higher than her usual baseline supplemental O2 requirement; this has been stable. She is not currently SOB at rest, has not been OOB however to assess symptoms with activity. She has very elevated BNP at ~[address] and elevated troponin. CTA suggested R heart strain; echo is pending, if this confirms significant R heart strain then she is a good candidate for thrombectomy. I discussed with patient all options for management including anticoagulation alone as well as possible pulmonary thrombectomy; we discussed the risks and benefits associated with each and we discussed the procedural details and recovery associated with thrombectomy procedure. She is not eager for a procedure and would prefer to avoid if possible, but may be open to it if her echo shows severe heart strain. Will plan to return for further discussion after echo results. HPI Consult Data Date of Consult: 04/05/25 HPI Narrative HPI Narrative: JESUS ZEPEDA, is a 59 F who presented to the [facility] ER yesterday with acute SOB and hypoxia despite O2 supplementation at home. Initial workup in the ER revealed elevated BNP and with her history of CHF, CHF exacerbation was initially felt to be the cause, she had improvement in saturations and symptoms with bipap in the ER. She was admitted for further management. She then later had a d-dimer which resulted high leading to CTA Chest which demonstrated significant bilateral PE for which we are consulted to consider thrombectomy. She describes that yesterday morning she got up from her chair, started walking, and had sudden onset of severe SOB. She turned her home O2 concentrator all the way up with no relief and so she called EMS; by report her O2 saturation was in the 70s on EMS arrival. She reports no associated chest pain, palpitations, syncope, presyncope. After PE identified, she was started on heparin drip overnight. She notes this morning she is feeling better, she was able to eat without taking breaks and is talking easily with no SOB. She still denies CP, palpitations, presyncope. She is on 6 lpm O2 via nasal cannula at present and saturating well. She has been hemodynamically stable. She has significantly elevated BNP, yesterday morning 2559, this morning 08055. Troponin 78, 83. She had an echo earlier this morning, read is pending. She was getting lower extremity venous duplex during my exam. Her history is notable for CHF, COPD (on 3 lpm O2 at baseline per her report), lymphedema, T2DM. She has significant BLE edema at baseline but has maybe noticed a bit of increased LLE edema but no new pain or discomfort. She reports she has been on supplemental O2 at home since she had pneumonia/COPD exacerbation in December of this year. She does report a history of prior PE around 2018, no clear provoking factors by her report, she was treated with blood thinners for a period of time then discontinued. No intermittent recurrence by report. She reports no recent surgery, travel, or significantly diminished activity. She is not very mobile in general, but feels she stays active around the house. [facility] Medical History (Updated 04/05/25 @ 08:[address] Esa Melton, DO) Wears glasses Cancer Thyroid disease Pulmonary embolism Migraine headache History of IBS Heartburn History of edema History of stress test History of echocardiogram Cardiology follow-up encounter History of ulceration Essential hypertension COPD (chronic obstructive pulmonary disease) GI bleed Morbid obesity with BMI of 40.0-44.9, adult Abnormal echocardiogram CHF (congestive heart failure) Bilateral lower extremity edema Cellulitis of left leg Symptomatic anemia Anemia COVID-19 virus infection (~01/2022) Thyroid cancer Postoperative primary hypothyroidism Depression Arthritis Low iron Dietary restriction Non-smoker Shortness of breath on exertion History of pain when walking Nausea Abdominal pain Epigastric pain Cholelithiasis Nontoxic multinodular goiter Hypothyroid Type 2 diabetes mellitus Hyperlipidemia Asthma Migraines Home Medications ?Medication ?Instructions ?Recorded ?Last Taken ?Type ferrous sulfate 325 mg (65 mg 325 mg PO BID supplement 05/30/21 05/14/22 History iron) tablet (FeroSul) albuterol sulfate 90 mcg/actuation 2 puff inhalation Q6H PRN 05/14/22 05/14/22 History aerosol inhaler (Ventolin HFA) Shortness Of Breath fluorometholone 0.1 % eye 1 drp EACH EYE DAILY PRN EYE 05/14/22 05/13/22 History drops,suspension INFLAMMATION levothyroxine 200 mcg tablet 200 mcg PO MOTUWETHFRSA THYROID 05/14/22 05/14/22 History sitagliptin phosphate 50 1 tab PO BIDCM BLOOD SUGARS 05/14/22 05/14/22 History mg-metformin 1,000 mg tablet (Janumet) sucralfate 1 gram tablet (Carafate) 1 g PO BID GERD 05/14/22 05/14/22 History sumatriptan succinate 50 mg tablet 50 mg PO DAILY PRN Migraine 05/14/22 05/13/22 History Headache furosemide 40 mg tablet (Lasix) 40 mg PO DAILY 30 days #30 tabs 05/16/22 Unknown Rx ascorbic acid (vitamin C) 500 mg 500 mg PO DAILY SUPPLEMENT 07/17/22 Unknown History capsule,extended release (Vitamin C) budesonide-formoterol HFA 160 2 puff inhalation BID 07/17/22 Unknown History mcg-4.5 mcg/actuation aerosol inhaler (Symbicort) levothyroxine 200 mcg capsule 100 mcg PO ALTAMIRANO 07/17/22 Unknown History atorvastatin 20 mg tablet 20 mg PO DAILY 07/22/22 Unknown History carvedilol 25 mg tablet 12.5 mg (1/2 x 25 mg) PO BID #180 11/04/23 Unknown Rx tabs valsartan 160 mg tablet 160 mg PO DAILY #90 tabs 11/04/23 Unknown Rx sulfamethoxazole 800 1 tab PO BID #20 tabs 04/22/24 Unknown Rx mg-trimethoprim 160 mg tablet (Bactrim DS) OXYGEN - Supplemental ([facility] Pulmonary Information 04/04/25 Unknown History INFORMATIONAL USE ONLY) prednisone 10 mg tablet 30 mg PO DAILY 04/04/25 Unknown History Allergy/AdvReac Type Severity Reaction Status Date / Time tizanidine (From Zanaflex) Allergy Severe Shortness Verified 04/04/25 06:06 of breath latex Allergy Rash Verified 04/04/25 06:06 lisinopril AdvReac Other Verified 04/04/25 06:06 Family History Aunt Breast cancer metastatic to bone Father Diabetes Hypertension Heart disease Myocardial infarction Mother Diabetes Hypertension Heart murmur Thyroid disorder Brother Diabetes Hypertension Grandmother Pneumothorax Surgical History Hx of cystoscopy History of esophagogastroduodenoscopy (EGD) History of carpal tunnel release (~2015) S/P partial thyroidectomy (~2006) Hx of tubal ligation Hx of bilateral cataract extraction (~2015) History of esophagogastroduodenoscopy (EGD) History of laparoscopic cholecystectomy (~11/15/19) S/P partial thyroidectomy (~2018) Social History Smoking Status: Never smoker second hand exposure: Yes alcohol intake: never substance use type: does not use caffeine: No Physical Exam Const alert, oriented x3 and no apparent distress General Appearance: cooperative and comfortable HEENT head/scalp atraumatic, hearing grossly normal bilaterally, external ears normal and external nose normal Eyes General Eye: normal appearance of both eyes Neck General: normal visual inspection Resp normal respiratory effort and no retractions Effort and Inspection: able to speak in complete sentences; Negative for labored, grunting, stridor or audible wheezes Cardio regular rate Extremity Extremity Narrative: Significant bilateral lower extremity edema with chronic skin changes including lipodermatosclerosis, papillomatosis, scattered fluid-filled blisters with some lymphorrhea consistent with chronic lympedema Neuro oriented x3 and moves all extremities Speech: speech normal Psych mental status grossly normal Appearance: grossly normal Attitude: calm and engaged Activity / Motor Behavior: appropriate eye contact Speech: normal speech Lab / Micro Data 04/05/25 04:25 04/05/25 04:25 Labs: Laboratory Results - last 24 hr 04/04/25 11:47: POC Glucose 304 H 04/04/25 16:05: D-Dimer Quant (PE/DVT) 3.96 H* 04/04/25 16:08: POC Glucose 175 H 04/04/25 18:50: WBC 10.1, RBC 4.44, Hgb 13.1, Hct 37.7, MCV 84.9 D, MCH 29.5, MCHC 34.7 D, RDW Std Deviation 48.1 H, RDW Coeff of Negar 15.9 H, Plt Count 332, MPV 9.2, Immature Gran % (Auto) 1.000 H, Neut % (Auto) 86.7 H, Lymph % (Auto) 10.5 L, [place] % (Auto) 1.7, Eos % (Auto) 0.0, Baso % (Auto) 0.1, Absolute Neuts (auto) 8.8 H, Absolute Lymphs (auto) 1.06, Nucleated RBC % 0, PT 13.9, INR 1.1, APTT 28.4 04/04/25 21:09: POC Glucose 291 H 04/05/25 00:15: S.aureus Protein A PCR NEGATIVE, MRSA (PCR) Negative 04/05/25 01:55: APTT > 250.0 H* 04/05/25 04:25: WBC 11.7 H, RBC 4.16 L, Hgb 11.9 L, Hct 36.2 L, MCV 87.0, MCH 28.6, MCHC 32.9 D, RDW Std Deviation 49.7 H, RDW Coeff of Negar 15.9 H, Plt Count 314, MPV 9.1, Immature Gran % (Auto) 0.800, Neut % (Auto) 83.2 H, Lymph % (Auto) 11.6 L, [place] % (Auto) 4.1, Eos % (Auto) 0.1, Baso % (Auto) 0.2, Absolute Neuts (auto) 9.7 H, Absolute Lymphs (auto) 1.35, Nucleated RBC % 0, Sodium 137, Potassium 3.9, Chloride 99, Carbon Dioxide 24.7, Anion Gap 14, BUN 25 H, Creatinine 1.01, Estim Creat Clear Calc 76.26, Est GFR (MDRD) Non-Af 65, BUN/Creatinine Ratio 24.3 H, Glucose 244 H, Hemoglobin A1c 7.3 H, Calcium 9.0 04/05/25 07:56: POC Glucose 222 H Micro: Microbiology 04/05/25 00:15 Wound Abcess - Leg, Left Gram Stain - Final 04/05/25 00:15 Wound - Leg, Right Gram Stain - Final 04/04/25 06:16 Mucosa - Nose SARS-CoV-2, Influenza & RSV (PCR) - Final Imaging Radiology Impression Chest CTA 04/04/25 17:15 IMPRESSION: Extensive bilateral central pulmonary arterial emboli, with right-sided heart strain. No focal airspace consolidation/infarct, or pleural effusion. Patchy ground-glass/mosaic airspace attenuation may reflect air trapping, possibly mild pulmonary edema. Reading Location: [id number] Charges/Coding Visit Charges Inpatient E&M: 07697 Init Hosp L1
[2025-04-05 11:00] LABS: Pro- Brain NATRIURETIC PEPTIDE 12598 pg/mL (<=900)
[2025-04-05 11:03] LABS: Troponin T High Sensitivity 78 ng/L (<=14)
--- NOTE | 2025-04-05 11:03 | WOUNDNOTE ---
wound photo: right lateral lower leg
--- NOTE | 2025-04-05 11:04 | WOUNDNOTE ---
wound photo: left posterolateral lower leg
--- NOTE | 2025-04-05 11:05 | WOUNDNOTE ---
skin photo: bilateral lower legs
[2025-04-05 11:38] LABS: Partial Thromboplast Time 97.2 Seconds (24.1-36.2)
[2025-04-05] MEDS: Vancomycin HCl 1,250 MG in 0.9% Normal Saline (250mL Bag) 250 ML 167 MG IV (12:45)
[2025-04-05] MEDS: HEPARIN/D5w 25,000 UNITS 25,000 UNITS/250 ML IV.SOLN. 12 UNITS CONT INF (12:50)
[2025-04-05 12:55] LABS: Troponin T High Sens 2 HR 83 ng/L (<=14)
--- NOTE | 2025-04-05 15:05 | CASEMGMT ---
Discharge Planning A list of?HH providers including quality and resource use data and consistent with the patient's preferred geographic region, medical needs, and insurance network was created in [employer] Guide.? This list was provided to the RN NATHAN. Ignacia Hinojosa, Discharge Planning Asst.
[2025-04-05 15:14] LABS: Troponin T High Sens 4 HR 84 ng/L (<=14)
--- NOTE | 2025-04-05 15:15 | CASEMGMT ---
See PT eval. No additional therapy recommended. RN CM to the pt's room and provided the pt with the HHC list provided by the [facility]. Noted that is the only local in-network HHC Agency. Informed the pt that PT is not recommending additional therapy but the pt can still benefit from SN regarding wound care, oxygen needs, medication management, education, and more. At this time, the pt states that she is not sure if she would like HHC or not yet and would like to think about it overnight. CM to follow. Pt does state that she would be interested in a FWW and would be willing to pay a small copay for one after insurance. See OT note. CM to send signed Rx to [facility] once appropriate. Pt denies further questions or concerns at this time. CM to follow.
[2025-04-05] MEDS: 0.9% Saline Lock 10 ML Syringe IV (21:23)
[2025-04-05 21:24] LABS: Partial Thromboplast Time 63.7 Seconds (24.1-36.2)
[2025-04-06] VITALS (16 sets, daily range): BP systolic 98–151; BP diastolic 63–109; PULSE 60–82; RESP 16–22; TEMP 36.7–36.9; O2SAT 90–99
[2025-04-06 03:11] LABS: Partial Thromboplast Time 83.1 Seconds (24.1-36.2)
[2025-04-06 06:20] LABS: Hematocrit 38.6 % (37-47); Hemoglobin 12.5 g/dL (12.0-15.0); Immature Granulocytes Count 0.110 X10^3/uL (0.0-0.0); Mean Corp Hgb Conc 32.4 g/dL (32-36); Mean Corpuscular Volume 87.9 fL (81-99); Mean Platelet Vol. 9.5 fl (6.2-12.0); NRBC Flagged by Analyzer 0 % (0-5); Platelet Count 349 K/mm3 (150-450); RBC Distribution Width CV 16.0 % (11.6-14.6); RBC Distribution Width SD 50.4 fl (35.1-43.9); Red Blood Count 4.39 M/mm3 (4.2-5.4); White Blood Count 12.3 K/mm3 (4.4-11.0)
[2025-04-06] MEDS: 0.9% Saline Lock 10 ML Syringe IV ×3 (06:53→22:47)
[2025-04-06] MEDS: HEPARIN/D5w 25,000 UNITS 25,000 UNITS/250 ML IV.SOLN. 11 UNITS CONT INF (08:44)
--- NOTE | 2025-04-06 08:44 | PCM.PN.HOSP ---
Reason for Visit Chief Complaint: shortness of breath. Subjective Subjective Breathing well. Objective Data Objective Data Vital Signs: Vital Signs Temp Pulse Resp BP Pulse Ox O2 Del Method O2 Flow Rate 36.7 C 77 22 H 142/89 H 94 High Flow 6 04/06/25 08:41 04/06/25 08:41 04/06/25 08:41 04/06/25 08:41 04/06/25 08:41 04/06/25 08:41 04/06/25 08:41 FiO2 6 04/04/25 16:00 Oxygen Flow Rate (L/min) 6 Oxygen Delivery Method High Flow Weight: 107.8 kg Body Mass Index (BMI) 39.6 Intake & Output: Intake and Output for Last 24 Hours 04/04/25 04/05/25 04/06/25 23:59 23:59 23:59 Intake Total 1150 / 1150 2724.47 / 2724.47 68.4 / 68.4 Output Total 3250 / 4450 2049 / 2049 Balance -2100 / -3300 674.47 / 674.47 68.4 / 68.4 Lab / Micro Data 04/06/25 05:37 04/05/25 04:25 Labs: Laboratory Results - last 24 hr 04/05/25 10:21: APTT Cancelled, Troponin T High Sens 78 H*, [place] [address] H 04/05/25 11:10: APTT 97.2 H* 04/05/25 11:37: POC Glucose 290 H 04/05/25 12:13: Troponin T Hi Sens 2 Hr 83 H* 04/05/25 14:25: Troponin T Hi Sens 4Hr 84 H* 04/05/25 16:13: POC Glucose 253 H 04/05/25 18:51: APTT Cancelled 04/05/25 21:02: APTT 63.7 H 04/05/25 21:19: POC Glucose 354 H 04/06/25 02:54: APTT 83.1 H 04/06/25 05:37: WBC 12.3 H, RBC 4.39, Hgb 12.5, Hct 38.6, MCV 87.9, MCH 28.5, MCHC 32.4, RDW Std Deviation 50.4 H, RDW Coeff of Negar 16.0 H, Plt Count 349, MPV 9.5, Immature Gran % (Auto) 0.900, Neut % (Auto) 85.6 H, Lymph % (Auto) 8.6 L, [place] % (Auto) 4.7, Eos % (Auto) 0.0, Baso % (Auto) 0.2, Absolute Neuts (auto) 10.5 H, Absolute Lymphs (auto) 1.05, Nucleated RBC % 0 04/06/25 06:49: POC Glucose 240 H Micro: Microbiology 04/05/25 00:15 Wound Abcess - Leg, Left Gram Stain - Final 04/05/25 00:15 Wound - Leg, Right Gram Stain - Final 04/04/25 06:16 Mucosa - Nose SARS-CoV-2, Influenza & RSV (PCR) - Final Radiography Diagnostic Testing: Radiology Impression Echocardiogram 04/04/25 18:39 Interpretation Summary Severely dilated right ventricle with evidence of right ventricular pressure/volume overload Severely elevated pulmonary pressures Hyperdynamic left ventricle with EF greater than 75% by Gaffney's biplane Mild aortic regurgitation Ordering Physician: Esa Melton Referring Physician: Rkii Clark Performed By: Rachel Rocha RDCS, RVT Venous Doppler Study 04/04/25 18:39 Interpretation Summary Acute deep vein thrombosis noted in the left popliteal vein, tibioperoneal trunk vein, psoterior tibial vein. Deep veins of the right lower extremity are patent and compressible segmentally. There is no evidence of right lower extremity deep vein thrombosis. The bilateral great saphenous veins appear patent and compressible segmentally. Ordering Physician: Esa Melton Referring Physician: Riki Clark Performed By: Sylvester Harrison, T Physical Exam Const Constitutional Narrative: Seen in the morning up in the chair. No respiratory distress. No conversational dyspnea. Kyphotic. HEENT head/scalp atraumatic and moist oral mucous membranes Cardio regular rate, regular rhythm, S1 normal heart sound and S2 normal heart sound GI normal to inspection, nondistended, normoactive bowel sounds, soft to palpation, non-tender and non-distended Extremity General Extremity: edema bilateral lower extremity Details: moderate Neuro Sensorium / Orientation: awake and alert Assessment & Plan Assessment/Plan (1) Acute and chronic respiratory failure with hypoxia: PLAN: Suspect due to pulmonary embolism and CHF exacerbation and extensive PE. (2) Pulmonary embolism: PLAN: Patient had an elevated D-dimer and patient underwent a CT angiogram of the chest. CT angiogram showed extensive bilateral central pulmonary arterial emboli with right sided heart strain. No focal airspace consolidation/infarct nor pleural effusion. Patchy ground glass/mosaic airspace attenuation. Patient started on heparin drip. Has had issues with anemia the past. Will continue to monitor while on anticoagulation. Duplex acute DVT in popliteal trunk and PTV (Duplex on 02/22/2025 was negative at [facility]). Taken for thrombectomy today with Dr. Garcia. Left sided thrombectomy performed (limited on right due to kyphosis) The PE and DVT though diagnosed after the patient was admitted, were acquired prior to admission. PLAN: Plan Diabetes mellitus type 2: Hold off on the Janumet in case patient requires a CT angiogram. Sign scale insulin. Check an A1c Hypothyroidism: Continue levothyroxine Migraines continue with as needed sumatriptan Hypertension: Continue with valsartan. Obesity class III: Complicates care and recovery VTE prophylaxis with enoxaparin CODE STATUS: Addressed with the patient. Patient initially stated that she did not want to be intubated but was okay with CPR. Told her that if she wants is to have CPR many times individuals do require being placed on a ventilator and if she wants CPR to be successful if necessary then we should intubate her. She agrees to being full code at this time. Disposition: TBD. Will evaluate oxygen needs on 04/07. Charges/Coding Visit Charges Inpatient E&M: 56879 Subs Hosp L2
[2025-04-06 10:02] LABS: Partial Thromboplast Time 63.3 Seconds (24.1-36.2)
--- NOTE | 2025-04-06 14:15 | PCM.OPRPT ---
Operative Report (Standard) Operative Information Date of Procedure: 04/06/25 Pre-Operative Diagnosis: Submassive pulmonary emboli, bilateral Post-Operative Diagnosis: Same Surgery/Procedure Performed: Pulmonary angiogram Left pulmonary thrombectomy, aspiration community action worker: No Type of Anesthesia: Local and Sedation,Conscious Procedure Start Time: 11:35 Procedure Stop Time: 13:25 Select all DRAINS/GRAFTS/IMPLANTS that apply: None Estimated Blood Loss: 50 Specimen collected: No Description of surgery: Co-surgeon Dr. Radha Abrams. Additional physician required given the complex nature of the patient's pathology and the procedure performed. HPI: Patient is a 59-year-old female with history of prior pulmonary embolism many years prior and progressive shortness of breath and need for oxygen supplementation over the last 6 months. She presented after acute onset of worsening shortness of breath and was found to have bilateral large volume pulmonary embolism with evidence of right heart strain. Both CT angiography and echocardiogram confirmed RV strain and she had elevated biomarkers and significant symptoms with ambulation. She is felt to be appropriate for mechanical thrombectomy so she is taken now to the [facility]. Description of procedure: Upon obtaining informed consent and verification correct patient procedure site the patient was taken to the [facility] where she was positioned prepped and draped in you sterile fashion. Timeout was performed and Sedation administered Versed and fentanyl. Skin overlying the right common femoral vein was anesthetized 1% lidocaine the vessel accessed under ultrasound guidance with micropuncture needle wire. This exchanged for micropuncture sheath which hand-injection ilio caval angiogram was performed revealing satisfactory position extravasation dissection. Through the micropuncture sheath a Bentson wire was advanced and the micropuncture sheath exchanged for a short 8 Eritrean sheath. Through the 8 [place]rean sheath and ankle pigtail catheter was advanced and efforts attempted to navigate the right atrium into the right ventricle. Both the atrium and ventricle was significantly dilated making navigation difficult. Ultimately we then switched tactics to utilize a Points catheter and balloon which also required significant manipulation but ultimately radial to successfully advance into the pulmonary artery. We were able to get to advance into the right pulmonary artery with significant difficulty however ultimately was in satisfactory position. An 018 wire was then advanced through the catheter and the catheter withdrawn. A quick cross catheter was then advanced over the wire and significant angulation within the pulmonary artery in relation to the right ventricle was encountered. We ultimately were able to successfully advance this though they did not have much of a sturdy platform. We then exchanged the 018 wire for an 035 Bentson wire to provide better support and ultimately exchanged the quick cross for a multipurpose catheter which we were able to successfully advance. There was very little support for the wire and catheter and we did not feel that there was enough to advance our large caliber sheath and thrombectomy devices. We then chose to navigate into the left pulmonary artery advancing the wire and catheter into the appropriate subsegmental branch. The wire was exchanged for a short tipped Amplatz wire. The catheter was then withdrawn and the short 8 Eritrean sheath exchanged for the inari sheath which was advanced under fluoroscopic guidance to the superior aspect of the inferior vena cava. Next the T24 catheter was advanced over the wire and positioned in the distal main pulmonary artery. Through the T24 a T20 curve catheter was advanced and positioned in the distal aspect of the left pulmonary artery. Multiple aspirations were then performed initially with no thrombus obtained. We then reposition the catheter and perform further aspirations with return of thrombus. Additional aspirations were performed until no thrombus was obtained. We then performed subtraction angiography of the left pulmonary artery which revealed successful clearance of the left pulmonary artery with some residual thrombus in one of the subsegmental branches. Otherwise there was no significant thrombus burden visualized on the left. We felt that we had successful treatment of the left pulmonary was him so we attempted to navigate into the right pulmonary artery. We again had significant difficulty successfully navigating into the right pulmonary artery due to complicated angulation. After exhausting her efforts to successfully navigate wire and catheter into the right pulmonary artery a sufficient distance to track our sheaths we decided that any further efforts would be potential for hazard and that no further efforts at treating the right lung would be undertaken. The wires and catheters then withdrawn and a 2-0 silk pursestring suture placed at the access site and secured as the sheath was withdrawn. Manual pressure was then held until hemostasis was observed. The patient then returned to the PCU for bedrest and continuation of her ongoing medical care. Surgical Findings: Inability to navigate into the right pulmonary artery due to significant angulation of the pulmonary vasculature in part due to her significant kyphosis. Complications Complications: No
--- NOTE | 2025-04-06 18:12 | NURSING ---
slow oozing noted from patients femoral thrombectomy site, drainage marked with marker and sandbag placed. Rechecked in 15 min and slow oozing continued, half of dressing saturated. Started holding pressure, Janny HAMM in to see patient and advised holding 20 minutes of pressure. After 20 minutes of holding pressure, dressing changed by NORIS Solimna. NORIS Soliman held pressure for 10 more minutes. No more oozing noted. Sandbag in place. Bedrest clock restarted at 1730. Heparin gtt to continue running per Janny HAMM. Rechecked in 15 minutes, dressing c/d/i with no hematoma, sandbag still in place.
[2025-04-06 20:53] LABS: Partial Thromboplast Time 168.2 Seconds (24.1-36.2)
--- NOTE | 2025-04-06 20:55 | NURSING ---
Lab called critical ptt of 168.2. Read back to tech. Informed primary nurse for rate adjustment per protocol.
[2025-04-07] VITALS (9 sets, daily range): BP systolic 120–150; BP diastolic 80–94; PULSE 62–74; RESP 16–18; TEMP 36.4–36.7; O2SAT 86–99
[2025-04-07 05:19] LABS: Hematocrit 37.4 % (37-47); Hemoglobin 12.6 g/dL (12.0-15.0); Immature Granulocytes Count 0.100 X10^3/uL (0.0-0.0); Mean Corp Hgb Conc 33.7 g/dL (32-36); Mean Corpuscular Volume 87.0 fL (81-99); Mean Platelet Vol. 9.0 fl (6.2-12.0); NRBC Flagged by Analyzer 0 % (0-5); Platelet Count 338 K/mm3 (150-450); RBC Distribution Width CV 15.8 % (11.6-14.6); RBC Distribution Width SD 49.1 fl (35.1-43.9); Red Blood Count 4.30 M/mm3 (4.2-5.4); White Blood Count 11.0 K/mm3 (4.4-11.0)
[2025-04-07] MEDS: 0.9% Saline Lock 10 ML Syringe IV (05:22)
[2025-04-07 05:33] LABS: Partial Thromboplast Time 41.9 Seconds (24.1-36.2)
[2025-04-07] MEDS: Heparin Nomogram Adjustment 5,000 UNIT/ML VIAL IV (05:47)
[2025-04-07 05:57] LABS: Anion Gap 12 (5-15); BUN 36 mg/dL (4-19); BUN/Creat Ratio 34.2 RATIO (10-20); Calcium,Total 9.8 mg/dL (7.6-11.0); Carbon Dioxide 26.8 mmol/L (21.0-32.0); Chloride 96 mmol/L (98-108); Estimated Creatinine Clearance 71.97 ml/min (50-250); Glucose 269 mg/dL (70-99); Potassium 4.2 mmol/L (3.3-5.1)
--- NOTE | 2025-04-07 07:01 | PN.SURG_ITS ---
Subjective Subjective I saw patient this morning, she was up to the bedside chair and in good spirits. She relates that she is feeling better following pulmonary thrombectomy yesterday; she notes chest pressure/tightness is resolved and she feels like she is breathing easier though her O2 requirement has remained stable. She had some persistent oozing from the R femoral access site yesterday evening; this resolved with placement of new pressure dressing and additional pressure held for a period of 20-30 minutes and then sandbag application for her 4 hour bedrest. There is no bleed through on the dressing this morning. She reports some soreness at the site, but otherwise no pain into her RLE. She has tolerated heparin drip well, her Hgb has been stable. Objective Data Objective Data Vital Signs: Vital Signs Temp Pulse Resp BP Pulse Ox O2 Del Method O2 Flow Rate 98.0 F 69 18 150/92 H 93 Nasal Cannula 6 04/07/25 05:20 04/07/25 06:58 04/07/25 06:58 04/07/25 05:20 04/07/25 06:58 04/07/25 06:58 04/07/25 06:58 FiO2 6 04/04/25 16:00 Oxygen Flow Rate (L/min) 6 Oxygen Delivery Method Nasal Cannula Weight: 237 lb 10.533 oz Body Mass Index (BMI) 39.6 Intake & Output: Intake and Output for Last 24 Hours 04/05/25 04/06/25 04/07/25 23:59 23:59 23:59 Intake Total 2724.47 / 2724.47 701.45 / 701.45 355.2 / 355.2 Output Total 2049 / 2049 1500 / 1500 800 / 800 Balance 674.47 / 674.47 -798.55 / -798.55 -444.8 / -444.8 Lab / Micro Data 04/07/25 04:54 04/07/25 04:54 Labs: Laboratory Results - last 24 hr 04/06/25 06:49: POC Glucose 240 H 04/06/25 09:40: APTT 63.3 H 04/06/25 10:52: POC Glucose 230 H 04/06/25 16:14: POC Glucose 238 H 04/06/25 19:57: APTT 168.2 H* 04/06/25 22:49: POC Glucose 349 H 04/07/25 04:54: WBC 11.0, RBC 4.30, Hgb 12.6, Hct 37.4, MCV 87.0, MCH 29.3, MCHC 33.7, RDW Std Deviation 49.1 H, RDW Coeff of Negar 15.8 H, Plt Count 338, MPV 9.0, Immature Gran % (Auto) 0.900, Neut % (Auto) 86.7 H, Lymph % (Auto) 7.1 L, [place] % (Auto) 5.3, Eos % (Auto) 0.0, Baso % (Auto) 0.0, Absolute Neuts (auto) 9.5 H, A bsolute Lymphs (auto) 0.78 L, Nucleated RBC % 0, APTT 41.9 H, Sodium 134, Potassium 4.2, Chloride 96 L, Carbon Dioxide 26.8, Anion Gap 12, BUN 36 H, Creatinine 1.04, Estim Creat Clear Calc 71.97, Est GFR (MDRD) Non-Af 62, B UN/Creatinine Ratio 34.2 H, Glucose 269 H, Calcium 9.8 Micro: Microbiology 04/05/25 00:15 Wound Abcess - Leg, Left Gram Stain - Final 04/05/25 00:15 Wound Abcess - Leg, Left Wound Culture - Preliminary Gram negative wang Gram positive organism 04/05/25 00:15 Wound - Leg, Right Gram Stain - Final 04/05/25 00:15 Wound - Leg, Right Wound Culture - Preliminary Gram negative wang 04/04/25 06:16 Mucosa - Nose SARS-CoV-2, Influenza & RSV (PCR) - Final Physical Exam Const oriented x3 and no apparent distress Resp normal respiratory effort Resp Narrative: on 6 lpm O2 via NC Cardio regular rate Extremity Extremity Narrative: R femoral access site with dressing C/D/I; area is soft to palpation, no hematoma. Assessment & Plan Assessment/Plan (1) Pulmonary embolism: PLAN: She is s/p pulmonary thrombectomy POD#1. She notes improved symptoms with resolved chest pressure/tightness and improved SOB. R femoral access site is without hematoma and without further bleeding since yesterday evening. She has tolerated heparin drip well without signs of adverse bleeding. OK to transition from heparin to DOAC. OK for discharge from vascular standpoint. She should not lift more than 20 pounds for 2 weeks. She may remove the R groin dressing tomorrow, then can leave the site open to air, making sure to keep it clean and dry. Showers are OK, no baths/submerging femoral site in water for 2 weeks. Will plan to see her in the office in 1 week for suture removal. Charges/Coding Visit Charges Inpatient E&M: 11417 Subs Hosp L1
--- NOTE | 2025-04-07 08:17 | PN.HOSP_ITS ---
Reason for Visit Chief Complaint: shortness of breath. Subjective Subjective Breathing better today. No new complaints. Objective Data Objective Data Vital Signs: Vital Signs Temp Pulse Resp BP Pulse Ox O2 Del Method O2 Flow Rate 36.7 C 69 18 150/92 H 93 Nasal Cannula 6 04/07/25 05:20 04/07/25 06:58 04/07/25 06:58 04/07/25 05:20 04/07/25 06:58 04/07/25 06:58 04/07/25 06:58 FiO2 6 04/04/25 16:00 Oxygen Flow Rate (L/min) 6 Oxygen Delivery Method Nasal Cannula Weight: 107.8 kg Body Mass Index (BMI) 39.6 Intake & Output: Intake and Output for Last 24 Hours 04/05/25 04/06/25 04/07/25 23:59 23:59 23:59 Intake Total 2724.47 / 2724.47 701.45 / 701.45 355.2 / 355.2 Output Total 0 / 2049 1500 / 1500 800 / 800 Balance 674.47 / 674.47 -798.55 / -798.55 -444.8 / -444.8 Lab / Micro Data 04/07/25 04:54 04/07/25 04:54 Labs: Laboratory Results - last 24 hr 04/06/25 09:40: APTT 63.3 H 04/06/25 10:52: POC Glucose 230 H 04/06/25 16:14: POC Glucose 238 H 04/06/25 19:57: APTT 168.2 H* 04/06/25 22:49: POC Glucose 349 H 04/07/25 04:54: WBC 11.0, RBC 4.30, Hgb 12.6, Hct 37.4, MCV 87.0, MCH 29.3, MCHC 33.7, RDW Std Deviation 49.1 H, RDW Coeff of Negar 15.8 H, Plt Count 338, MPV 9.0, Immature Gran % (Auto) 0.900, Neut % (Auto) 86.7 H, Lymph % (Auto) 7.1 L, [place] % (Auto) 5.3, Eos % (Auto) 0.0, Baso % (Auto) 0.0, Absolute Neuts (auto) 9.5 H, A bsolute Lymphs (auto) 0.78 L, Nucleated RBC % 0, APTT 41.9 H, Sodium 134, Potassium 4.2, Chloride 96 L, Carbon Dioxide 26.8, Anion Gap 12, BUN 36 H, Creatinine 1.04, Estim Creat Clear Calc 71.97, Est GFR (MDRD) Non-Af 62, B UN/Creatinine Ratio 34.2 H, Glucose 269 H, Calcium 9.8 04/07/25 06:35: POC Glucose 245 H Micro: Microbiology 04/05/25 00:15 Wound Abcess - Leg, Left Gram Stain - Final 04/05/25 00:15 Wound Abcess - Leg, Left Wound Culture - Preliminary Pseudomonas aeruginosa Rothia kristinae 04/05/25 00:15 Wound - Leg, Right Gram Stain - Final 04/05/25 00:15 Wound - Leg, Right Wound Culture - Preliminary Gram negative wang 04/04/25 06:16 Mucosa - Nose SARS-CoV-2, Influenza & RSV (PCR) - Final Physical Exam Const alert and no apparent distress Constitutional Narrative: up in chair. kyphotic. HEENT head/scalp atraumatic and moist oral mucous membranes Resp normal respiratory effort, no retractions, no use of accessory muscles and clear to auscultation bilaterally Extremity Extremity Narrative: lymphedema. Assessment & Plan Assessment/Plan (1) Acute and chronic respiratory failure with hypoxia: PLAN: Improved due to pulmonary embolism and CHF exacerbation DC with increased furosemide to BID. Acute HFpEF (EF 75%) (2) Pulmonary embolism: PLAN: Patient had an elevated D-dimer and patient underwent a CT angiogram of the chest. CT angiogram showed extensive bilateral central pulmonary arterial emboli with right sided heart strain. No focal airspace consolidation/infarct nor pleural effusion. Patchy ground glass/mosaic airspace attenuation. Patient started on heparin drip. Has had issues with anemia the past. Will continue to monitor while on anticoagulation. Duplex acute DVT in popliteal trunk and PTV (Duplex on 02/22/2025 was negative at [facility]). Taken for thrombectomy today with Dr. Garcia. Left sided thrombectomy performed (limited on right due to kyphosis) The PE and DVT though diagnosed after the patient was admitted, were acquired prior to admission. PLAN: Plan Diabetes mellitus type 2: Hold off on the Janume in case patient requires a CT angiogram. Sign scale insulin. Check an A1c Hypothyroidism: Continue levothyroxine Migraines continue with as needed sumatriptan Hypertension: Continue with valsartan. Obesity class III: Complicates care and recovery VTE prophylaxis with enoxaparin CODE STATUS: Addressed with the patient. Patient initially stated that she did not want to be intubated but was okay with CPR. Told her that if she wants is to have CPR many times individuals do require being placed on a ventilator and if she wants CPR to be successful if necessary then we should intubate her. She agrees to being full code at this time. Disposition: TBD. Will evaluate oxygen needs on 04/07.
--- NOTE | 2025-04-07 11:02 | PCM.DC.SUM ---
Providers Date of Admission: 04/04/25 Primary Care Physician: Dr. Riki Clark MD Consultations 04/05/25 00:12 Consult: Onc/Wound/enrollment services vice president Routine Comment: Reason for Consult:: BLE wounds posterior 04/05/25 10:10 Consult: Vascular Surgery Routine Consulting Provider: Esa Garcia Reason for Consult: PE EMERGENT Consult: No MD Notified: Yes Date Notified: 04/05/25 Time Notified: 10:11 Method of Notification: Verbal Reason For Visit: RESP FAIL Diagnosis Discharge Diagnosis (1) Acute and chronic respiratory failure with hypoxia: Status: Chronic Code(s): J96.21 - Acute and chronic respiratory failure with hypoxia Plan: Improved due to pulmonary embolism and CHF exacerbation DC with increased furosemide to BID. Acute HFpEF (EF 75%) (2) Pulmonary embolism: Status: Acute Code(s): I26.99 - Other pulmonary embolism without acute cor pulmonale Plan: Patient had an elevated D-dimer and patient underwent a CT angiogram of the chest. CT angiogram showed extensive bilateral central pulmonary arterial emboli with right sided heart strain. No focal airspace consolidation/infarct nor pleural effusion. Patchy ground glass/mosaic airspace attenuation. Patient started on heparin drip. Has had issues with anemia the past. Will continue to monitor while on anticoagulation. Duplex acute DVT in popliteal trunk and PTV (Duplex on 02/22/2025 was negative at [facility]). Taken for thrombectomy today with Dr. Garcia. Left sided thrombectomy performed (limited on right due to kyphosis) The PE and DVT though diagnosed after the patient was admitted, were acquired prior to admission. Plan Diabetes mellitus type 2: Hold off on the Aprumet in case patient requires a CT angiogram. Sign scale insulin. Check an A1c Hypothyroidism: Continue levothyroxine Migraines continue with as needed sumatriptan Hypertension: Continue with valsartan. Obesity class III: Complicates care and recovery VTE prophylaxis with enoxaparin CODE STATUS: Addressed with the patient. Patient initially stated that she did not want to be intubated but was okay with CPR. Told her that if she wants is to have CPR many times individuals do require being placed on a ventilator and if she wants CPR to be successful if necessary then we should intubate her. She agrees to being full code at this time. Disposition: TBD. Will evaluate oxygen needs on 04/07. Medications at Discharge Home Medications ferrous sulfate 325 mg (65 mg iron) tablet (FeroSul) 325 mg PO BID supplement 05/30/21 albuterol sulfate 90 mcg/actuation aerosol inhaler (Ventolin HFA) 2 puff inhalation Q6H PRN Shortness Of Breath 05/14/22 fluorometholone 0.1 % eye drops,suspension 1 drp EACH EYE DAILY PRN EYE INFLAMMATION 05/14/22 levothyroxine 200 mcg tablet 200 mcg PO MOTUWETHFRSA THYROID 05/14/22 sitagliptin phosphate 50 mg-metformin 1,000 mg tablet (Janumet) 1 tab PO BIDCM BLOOD SUGARS 05/14/22 sucralfate 1 gram tablet (Carafate) 1 g PO BID GERD 05/14/22 sumatriptan succinate 50 mg tablet 50 mg PO DAILY PRN Migraine Headache 05/14/22 ascorbic acid (vitamin C) 500 mg capsule,extended release (Vitamin C) 500 mg PO DAILY SUPPLEMENT 07/17/22 budesonide-formoterol HFA 160 mcg-4.5 mcg/actuation aerosol inhaler (Symbicort) 2 puff inhalation BID 07/17/22 levothyroxine 200 mcg capsule 100 mcg PO ALTAMIRANO 07/17/22 atorvastatin 20 mg tablet 20 mg PO DAILY 07/22/22 carvedilol 25 mg tablet 12.5 mg (1/2 x 25 mg) PO BID #180 tabs 11/04/23 valsartan 160 mg tablet 160 mg PO DAILY #90 tabs 11/04/23 OXYGEN - Supplemental ([facility] INFORMATIONAL USE ONLY) Pulmonary Information 04/04/25 apixaban 5 mg (74 tabs) tablets in a dose pack See Rx Instructions PO .COMPLEX #74 tabs 04/07/25 furosemide 40 mg tablet 40 mg PO BIDCM 30 days #60 tabs 04/07/25 Hospital Course Operations - (thrombectomy) Procedures 2-D Echocardiogram Summary of Care Provided Hospital Course: Greater than 30 minutes spent on discharge. Patient presents with shortness of breath.Initially felt to be CHF exacerbation with patient had a CTA of the chest that showed extensive pulmonary embolism with right heart strain. Patient was started on heparin and vascular surgery was consulted. Patient did a left-sided thrombectomy on the . Right sided thrombectomy was unable to be performed given her kyphosis. But patient is oxygenation has improved. Patient will be on apixaban lifelong at this point in time. Patient also be on furosemide but the dose to be increased to twice daily. Weight / BMI Weight Weight: 107.8 kg Body Mass Index (BMI) 39.6 ABG / Lab / Microbiology Data 04/07/25 04:54 04/07/25 04:54 Laboratory: Laboratory Results - last 24 hr 04/06/25 10:52: POC Glucose 230 H 04/06/25 16:14: POC Glucose 238 H 04/06/25 19:57: APTT 168.2 H* 04/06/25 22:49: POC Glucose 349 H 04/07/25 04:54: WBC 11.0, RBC 4.30, Hgb 12.6, Hct 37.4, MCV 87.0, MCH 29.3, MCHC 33.7, RDW Std Deviation 49.1 H, RDW Coeff of Negar 15.8 H, Plt Count 338, MPV 9.0, Immature Gran % (Auto) 0.900, Neut % (Auto) 86.7 H, Lymph % (Auto) 7.1 L, [place] % (Auto) 5.3, Eos % (Auto) 0.0, Baso % (Auto) 0.0, Absolute Neuts (auto) 9.5 H, Absolute Lymphs (auto) 0.78 L, Nucleated RBC % 0, APTT 41.9 H, Sodium 134, Potassium 4.2, Chloride 96 L, Carbon Dioxide 26.8, Anion Gap 12, BUN 36 H, Creatinine 1.04, Estim Creat Clear Calc 71.97, Est GFR (MDRD) Non-Af 62, BUN/Creatinine Ratio 34.2 H, Glucose 269 H, Calcium 9.8 04/07/25 06:35: POC Glucose 245 H Microbiology: Microbiology 04/05/25 00:15 Wound - Leg, Right Gram Stain - Final 04/05/25 00:15 Wound - Leg, Right Wound Culture - Preliminary Pseudomonas aeruginosa Gram negative wang GPC Poss Enterococcus sp 04/05/25 00:15 Wound Abcess - Leg, Left Gram Stain - Final 04/05/25 00:15 Wound Abcess - Leg, Left Wound Culture - Preliminary Pseudomonas aeruginosa Rothia kristinae 04/04/25 06:16 Mucosa - Nose SARS-CoV-2, Influenza & RSV (PCR) - Final D/C Instructions DC O2, CPAP, BIPAP Needs Home O2 Discharge instructions: Yes Type of respiratory needs?: Oxygen Oxygen frequency: At rest and With Ambulation Oxygen liters per minute during Ambulation: 6 DC home with Oxygen: Yes Home O2 MD Review: I have reviewed the oxygen testing, and the patient qualifies for home oxygen equipment and portability. The patient is mobile in the home and the community. Meaningful Use Info Meaningful Use Meaningful Use Diagnoses (Choose all that apply): CHF and VTE CHF LILIANA/ARB ordered at discharge?: Yes Documented LVEF (%): 75 VTE Anticoag overlap given w/in hospital stay or rx'd at dc?: No Pt receive overlap for 5 days?: No Reason overlap not ordered, prescribed, or given for 5 days: Treatment Not Indicated Discharge Plan Admission Admit Date/Time: 04/04/25 07:58 Primary Reason for Your Visit: pulmonary embolism Attending Provider: Esa Melton Primary Care Provider: Riki Clark Consulting Providers: Esa Garcia Discharge Orders/Prescriptions Prescriptions: New apixaban 5 mg (74 tabs) tablets,dose pack See Rx Instructions .ROUTE .COMPLEX Qty: 74 0RF Rx Instructions: orally per package directions Continued levothyroxine 200 mcg capsule 100 mcg PO ALTAMIRANO budesonide-formoterol [Symbicort] 160-4.5 mcg/actuation HFA aerosol inhaler 2 puff inhalation BID atorvastatin 20 mg tablet 20 mg PO DAILY ferrous sulfate [FeroSul] 325 mg (65 mg iron) Tablet 325 mg PO BID sumatriptan succinate 50 mg tablet 50 mg PO DAILY PRN (Reason: Migraine Headache) fluorometholone 0.1 % drops,suspension 1 drp EACH EYE DAILY PRN (Reason: EYE INFLAMMATION) levothyroxine 200 mcg tablet 200 mcg PO MOTUWETHFRSA Janumet 50-1,000 mg tablet 1 tab PO BIDCM sucralfate [Carafate] 1 gram tablet 1 g PO BID albuterol sulfate [Ventolin HFA] 90 mcg/actuation HFA aerosol inhaler 2 puff inhalation Q6H PRN (Reason: Shortness Of Breath) ascorbic acid (vitamin C) [Vitamin C] 500 mg capsule, extended release 500 mg PO DAILY OXYGEN - Supplemental ([facility] INFORMATIONAL USE ONLY) Patient Comments: patient states she is on 2 LPM at home carvedilol 25 mg tablet 12.5 mg PO BID Qty: 180 3RF Rx Instructions: must administer with a meal/food valsartan 160 mg tablet 160 mg PO DAILY Qty: 90 3RF Changed furosemide 40 mg tablet 40 mg PO BIDCM 30 Days Qty: 60 0RF Discontinued prednisone 10 mg tablet 30 mg PO DAILY sulfamethoxazole-trimethoprim [Bactrim DS] 800-160 mg tablet 1 tab PO BID Qty: 20 0RF Referrals / Follow Up: Esa Garcia MD [Med Staff - Active Staff, Vascular Surgery] - Within 1 Month Riki Clark MD [Primary Care Provider, Medical] - Within 2 Weeks Disposition Disposition (needs filled in before D/C Order can be placed): Home, Self Care Charges/Coding Visit Charges Inpatient E&M: 97035 Disch Hosp >30min
--- NOTE | 2025-04-07 11:30 | CASEMGMT ---
Addendum entered by Ibis Julian 04/07/25 14:03: PHAM EVANS received call back from [facility] and Eliquis has $0 copay Original Note: Patient has order for discharge. Patient will require increase in home oxygen, script received. Patient stated in assessment she had trouble covering her DM supply copay. Patient has active medicaid. Patient discharging on Eliquis start pack, PHAM EVANS called [facility] and they do not have the starter pack in stock. PHAM EVANS called [facility] and they have starter pack in stock. PHAM EVANS in to discuss needs at discharge. Patient aware she has active medicaid but states [facility] does not apply to copay. RN NATHAN encouraged patient to follow up with [facility] and provide Medicaid information, patient voiced understanding. PHAM EVANS also supplied information for OTC glucometer and test strips at [facility], patient voiced appreciation. PHAM EVANS updated patient regarding Eliquis starter pack not available at [facility], patient agreeable to have prescription transferred to [facility]. Patient states she has portable oxygen at discharge that her aunt will bring. Patient denies need for HHC at discharge. Patient had no further questions or concerns. PHAM EVANS [place] [facility] arrangements with patient to exchange equipment for larger concentrator at home. PHAM EVANS called [facility] and requested Eliquis script be transferred from [facility].
[2025-04-07 11:58] LABS: Partial Thromboplast Time 46.5 Seconds (24.1-36.2)
[2025-04-07] MEDS: APIXABAN 5 MG TABLET 10 MG PO (12:24)
--- NOTE | 2025-04-07 13:23 | PHA.DC.COU.R ---
Pharmacy [facility] has performed discharge medication counseling for this patient. The patient was counseled on the following discharge medications and changes in medications for homegoing review. - Apixaban 5 mg tablet (dose pack) The Reason for Use, instructions for use, and potential side effects were reviewed for all new medications. The patient's questions regarding all of their medications were answered. The patient was able to verbally demonstrate an understanding of their discharge medications. Medications at Discharge Home Medications ferrous sulfate 325 mg (65 mg iron) tablet (FeroSul) 325 mg PO BID supplement 05/30/21 albuterol sulfate 90 mcg/actuation aerosol inhaler (Ventolin HFA) 2 puff inhalation Q6H PRN Shortness Of Breath 05/14/22 fluorometholone 0.1 % eye drops,suspension 1 drp EACH EYE DAILY PRN EYE INFLAMMATION 05/14/22 levothyroxine 200 mcg tablet 200 mcg PO MOTUWETHFRSA THYROID 05/14/22 sitagliptin phosphate 50 mg-metformin 1,000 mg tablet (Janumet) 1 tab PO BIDCM BLOOD SUGARS 05/14/22 sucralfate 1 gram tablet (Carafate) 1 g PO BID GERD 05/14/22 sumatriptan succinate 50 mg tablet 50 mg PO DAILY PRN Migraine Headache 05/14/22 ascorbic acid (vitamin C) 500 mg capsule,extended release (Vitamin C) 500 mg PO DAILY SUPPLEMENT 07/17/22 budesonide-formoterol HFA 160 mcg-4.5 mcg/actuation aerosol inhaler (Symbicort) 2 puff inhalation BID 07/17/22 levothyroxine 200 mcg capsule 100 mcg PO ALTAMIRANO 07/17/22 atorvastatin 20 mg tablet 20 mg PO DAILY 07/22/22 carvedilol 25 mg tablet 12.5 mg (1/2 x 25 mg) PO BID #180 tabs 11/04/23 valsartan 160 mg tablet 160 mg PO DAILY #90 tabs 11/04/23 OXYGEN - Supplemental ([facility] INFORMATIONAL USE ONLY) Pulmonary Information 04/04/25 apixaban 5 mg (74 tabs) tablets in a dose pack See Rx Instructions PO .COMPLEX #74 tabs 04/07/25 furosemide 40 mg tablet 40 mg PO BIDCM 30 days #60 tabs 04/07/25
[2025-04-11 16:01] LABS: ACT Activated Clotting Time 250 sec (74-137)
[2025-04-11 16:01] LABS: ACT Activated Clotting Time 225 sec (74-137)
== END 2025-04-07 15:37 | disposition home or self-care (01) | DRG 163 ==
LOC: ED 07:58 → ICU 08:15 → PCU 04-05 16:53
PROVIDERS: Family Medicine; Surgery Trauma Surgery; Emergency Provider Emergency Medicine; PCP Family Medicine
DX: J96.21 Acute and chronic respiratory failure with hypoxia (principal); I26.09 Other pulmonary embolism with acute cor pulmonale; I50.33 Acute on chronic diastolic (congestive) heart failure; I24.89 Other forms of acute ischemic heart disease; Z68.41 Body mass index [BMI] 40.0-44.9, adult; L97.219 Non-pressure chronic ulcer of right calf with unspecified severity; I82.432 Acute embolism and thrombosis of left popliteal vein; I82.442 Acute embolism and thrombosis of left tibial vein; L97.229 Non-pressure chronic ulcer of left calf with unspecified severity; E11.622 Type 2 diabetes mellitus with other skin ulcer; D64.9 Anemia, unspecified; I27.20 Pulmonary hypertension, unspecified; I11.0 Hypertensive heart disease with heart failure; J44.9 Chronic obstructive pulmonary disease, unspecified; E89.0 Postprocedural hypothyroidism; E78.5 Hyperlipidemia, unspecified; I89.0 Lymphedema, not elsewhere classified; M40.209 Unspecified kyphosis, site unspecified; G43.909 Migraine, unspecified, not intractable, without status migrainosus; E66.813 Obesity, class 3; Z79.899 Other long term (current) drug therapy; Z86.711 Personal history of pulmonary embolism; Z79.890 Hormone replacement therapy; Z79.84 Long term (current) use of oral hypoglycemic drugs; Z99.81 Dependence on supplemental oxygen
CPT/HCPCS: 36014; 36415; 36600; 37184; 71045; 71275; 76937; 80048; 82803; 82962; 83036; 83735; 83880; 84484; 85025; 85347; 85379; 85610; 85730; 87070; 87077; 87184; 87186; 87205; 87631; 87640; 93005; 93306; 93970; 94002; 94640; 97162; 97166; 97530; 97535; 99152; 99153; 99285; C1757; C1769; C1887; C1894; Q9967; A4216; C1751; J1938